=== PATIENT | female | born 1950 | race Caucasian/White ===

== ENCOUNTER → 2022-02-16 10:33 | Outpatient (REF) | payer MEDICARE, SELFPAY | LOC: ANHLAB 10:33 | PROVIDERS: Visit Provider Nurse Practitioner | DX: C44.319 Basal cell carcinoma of skin of other parts of face (principal) | CPT/HCPCS: 88305; 88342 ==

== ENCOUNTER → 2022-04-10 08:19 | Outpatient (REF) | payer MEDICARE, SELFPAY | LOC: ANHLAB 08:19 | PROVIDERS: Visit Provider Nurse Practitioner | DX: C44.319 Basal cell carcinoma of skin of other parts of face (principal) | CPT/HCPCS: 88305; 88331 ==

== ENCOUNTER 2023-03-06 09:00 | Outpatient (NON) | payer MEDICARE, SELFPAY | END 2023-03-06 09:01 | disposition home or self-care (01) | LOC: ANHLAB 03-07 12:13 | PROVIDERS: Visit Provider Nurse Practitioner | DX: L92.3 Foreign body granuloma of the skin and subcutaneous tissue (principal); Z18.9 Retained foreign body fragments, unspecified material | CPT/HCPCS: 88304 ==

== ENCOUNTER 2024-06-23 15:41 | Emergency (ER) | payer MEDICARE, SELFPAY ==
--- NOTE | ~2024-06-23 | US_ITS ---
EXAMINATION: US venous doppler LE RT DATE: 06/23/2024 19:30 INDICATION: RLE swelling and posterior knee pain . TECHNIQUE: Grayscale images without and with compression and Doppler images of the right lower extrem ity veins were obtained. COMPARISON: None FINDINGS: The right common femoral vein, profunda (deep) femoral vein, femoral vein, popliteal vein, peroneal v ein, posterior tibial veins, gastrocnemius vein, and greater saphenous vein are patent. Small Moseley's cyst. IMPRESSION: Patent right lower extremity veins. No evidence of deep venous thrombosis. Small Moseley's cyst. Reviewed, dictated and finalized at location K. IMPRESSION: Patent right lower extremity veins. No evidence of deep venous thrombosis. Smal l Moseley's cyst.
--- NOTE | ~2024-06-23 | XR_ITS ---
EXAM: XR knee RT 3V DATE: 06/23/2024 17:31 HISTORY: R knee pain x 7 months. no inj . COMPARISON: None available. FINDINGS: Decreased mineralization. No fracture or dislocation. No lytic or blastic lesion. Joint sp aces are maintained. Mild osteoarthritis. Moderate joint fluid. Minimal quadriceps enthesopathy. No e rosion or periosteal change. Soft tissues within normal limits. IMPRESSION: Osteopenia. No acute osseous finding in the right knee. Moderate right knee joint effusio n. Reviewed, dictated and finalized at location K. IMPRESSION: Osteopenia. No acute osseous finding in the right knee. Moderate ri ght knee joint effusion.
[2024-06-23 15:56] VITALS: BP 113/57; PULSE 65; RESP 20; TEMP 36.3; O2SAT 91
[2024-06-23 16:56] VITALS: BP 114/70; PULSE 67; RESP 15; O2SAT 91
[2024-06-23 16:58] VITALS: O2SAT 91
--- NOTE | 2024-06-23 17:52 | ED.LOWEXIN ---
HPI - Extremity Injury (Lower) General Chief Complaint: Extremity Injury, Lower Stated Complaint: R leg/knee Time Seen by Provider: 06/23/24 17:02 Source: patient Mode of arrival: ambulatory Limitations: no limitations History of Present Illness HPI Narrative: this is a 74-year-old female with chief complaint of increasing right knee pain for the past 7 months. States that over the last couple of days it has become more painful. She thinks that is a Moseley's cyst because she has had this in the past. States she has had workup with Ortho in the past and been explained that she has meniscal tear. She is unsure if she has history of osteoarthritis. States that she takes naproxen when I feel like it with some relief. Denies warmth, fevers, chills, nausea, vomiting, numbness, weakness. Denies history of blood clot or recent immobilization. Related Data Home Medications Medication Instructions Recorded Confirmed citalopram 20 mg tablet 20 mg PO DAILY 12/14/20 clonazepam 1 mg tablet 1 mg PO DAILY 12/14/20 esomeprazole magnesium 20 mg 20 mg PO DAILY 12/14/20 capsule,delayed release propranolol 60 mg capsule,24 60 mg PO DAILY 12/14/20 hr,extended release rosuvastatin 10 mg tablet 10 mg PO DAILY 12/14/20 albuterol 90 mcg-budesonide 80 2 inh inhalation ONCE 04/28/24 mcg/actuation HFA aerosol inhaler bisacodyl 5 mg tablet 5 mg PO QHS 04/28/24 fluticasone fur. 200 mcg-umeclid 1 inh inhalation DAILY 04/28/24 62.5 mcg-vilant 25 mcg inhalat.powder (Trelegy Ellipta) furosemide 20 mg tablet 20 mg PO QAM 04/28/24 omega 8-tey-ozi-fish oil 300 1 cap PO DAILY 04/28/24 mg-1,000 mg capsule (Fish Oil) primidone 250 mg tablet 250 mg PO QHS 04/28/24 Allergies Allergy/AdvReac Type Severity Reaction Status Date / Time ibuprofen Allergy Unknown Rash Verified 06/23/24 16:59 Review of Systems Review of Systems: All systems as dictated in HPI [facility] Past Medical History Medical History BCC (basal cell carcinoma of skin) COPD (chronic obstructive pulmonary disease) Functional constipation Gastro-esophageal reflux disease without esophagitis Generalized anxiety disorder GERD (gastroesophageal reflux disease) Heart palpitations High cholesterol Hypercholesterolemia Muscle weakness Nicotine dependence in remission Occasional tremors Persistent insomnia Synovial cyst of popliteal space Surgical History Surgical History History of basal cell carcinoma excision Nose History of D&C x2 History of hip surgery (~09/01/23) Lt Hip Fx - Titanium Ball Family History Family History Unknown Heart disease Parkinson disease Diabetes mellitus Other Family history of arthritis Family history of gout Social History Social History (Updated 06/04/24 @ 10:43 by Kendal Jiménez MA) Smoking status: Former smoker Smoking end date: 04/25/22 Alcohol intake: never Do You Feel Safe in your Home?: Yes Lack of Transportation: No Lack of Food: Never True Current Housing: I Have Housing Concerned About Future Housing: No Difficulty Paying Gas/Electric Bills: No Difficulty Paying for Meds: No Currently Unemployed: No Education: High School Diploma/GED Difficulty w/ Childcare or Family Care: No Exam Narrative: GENERAL: Well-appearing, well-nourished, and in no acute distress. HEAD: Normocephalic, atraumatic. EYES: PERRLA and EOMI. ENT: Nares clear, no rhinorrhea or epistaxis. Mucous membranes moist. Oropharynx without tonsillar hypertrophy exudate or other lesions. NECK: Supple. No adenopathy or masses. CHEST: No respiratory distress. Clear to auscultation. No wheezes rales or rhonchi HEART: Regular rate and rhythm. No murmur heard. Normal peripheral pulses. ABDOMEN: Soft, nontender, nondistended, normal a
[2024-06-23 20:00] VITALS: BP 128/71; PULSE 58; RESP 16; TEMP 36.8; O2SAT 92
== END 2024-06-23 20:03 | disposition home or self-care (01) ==
PROVIDERS: Emergency Provider Physician Assistant; PCP Family Medicine
DX: M25.561 Pain in right knee (principal); J44.9 Chronic obstructive pulmonary disease, unspecified; K21.9 Gastro-esophageal reflux disease without esophagitis; F41.9 Anxiety disorder, unspecified; E78.5 Hyperlipidemia, unspecified; Z85.828 Personal history of other malignant neoplasm of skin; M79.89 Other specified soft tissue disorders
CPT/HCPCS: 73562; 93971; 99284

== ENCOUNTER 2024-07-02 08:03 | Outpatient (CLI) | payer MEDICARE, SELFPAY ==
--- NOTE | 2024-07-02 08:20 | ECG_ITS ---
Test Date: 2024-07-02 08:35:21 Measurements Intervals [place] Rate: 55 P: 39 MN: 154 QRS: 18 QRSD: 102 T: 29 QT: 443 QTc: 425 Interpretive Statements SINUS BRADYCARDIA INCOMPLETE RIGHT BUNDLE BRANCH BLOCK NONSPECIFIC T-WAVE ABNORMALITY No previous ECG available for comparison Electronically Signed On 07-02-2024 09:30:49 CDT by Trace Fontanez M.D.
[2024-07-02 08:58] LABS: Anion Gap 4 mmol/L (4-12); Blood Urea Nitrogen 10 mg/dL (7-17); Calcium 9.2 mg/dL (8.4-10.2); Carbon Dioxide 37 mmol/L (22-30); Chloride 95 mmol/L (98-107); Estimated Glomerular Filt Rate > 60; Glucose 104 mg/dL (65-110); Potassium 4.4 mmol/L (3.4-5.0); Sodium 136 mmol/L (137-145)
== END 2024-07-02 08:04 | disposition home or self-care (01) ==
LOC: ANHSURGERY 08:08
PROVIDERS: Anesthesiology; PCP Family Medicine; Visit Provider Orthopaedic Surgery
DX: I10 Essential (primary) hypertension (principal); Z01.818 Encounter for other preprocedural examination; I45.10 Unspecified right bundle-branch block
CPT/HCPCS: 36415; 80048; 93005

== ENCOUNTER 2024-07-03 01:39 | Day surgery (SDC) | payer MEDICARE, SELFPAY ==
--- NOTE | 2024-07-01 14:08 | PC.NURSE ---
Report to the Outpatient Waiting Room, entrance under the green pavilion located off [facility], at time __11:30 AM on date _07/03/24 . Planned Procedure Time: __1:30 PM . Time changes happen often and if your time is changed the preop area will call you the afternoon before. - You and your visitor will be asked to self-screen and do not enter if you have any COVID symptoms. - A mask is optional within the hospital at this time. Patients may have clear liquids (water, carbonated beverages, clear teas, apple juice) until 3 hours prior to surgery ( 10:30AM)with a maximum of 20 ounces. - No food from midnight until time of surgery - Infants may have breast milk until 4 hours before surgery, infant formula 6 hours prior to surgery. - Children will be allowed to drink immediately following surgery. If applicable, please bring a bottle or sippy cup to assist with drinking. Juice, water, soda, and popsicles are readily available. For infants on formula, please bring formula the day of surgery. Pacifiers are allowed. Take the following medications with a SIP of water the morning of surgery: __TRELEGY INHALER,CITALOPRAM,PROPRANOLOL DO NOT STOP ANY OF YOUR OTHER PRESCRIPTION MEDICATIONS PRIOR TO SURGERY ?EXCEPT THE FOLLOWING Medications to discontinue per physician _HOLD NAPROXEN 7 DAYS PRE OP PER DR HESTER ..HOLD ALL VITAMINS AND SUPPLEMENTS 3 DAYS PRE OP .LAST DOSE 07/01/24 Please no make-up, nail wolof, hairspray, perfume, deodorant, or body powder the day of surgery. No jewelry (including any body piercings) or valuables the day of surgery, leave them at home. Please take a shower or bath the night before, or the morning of, surgery with an antibacterial soap. Wear comfortable, loose fitting clothing. Children are encouraged to wear pajamas. - Jewelry must be removed prior to entering the operating room. Rings and piercings that are not removed may be cut off. - The hospital will not accept responsibility for valuables. - Please leave all valuables, including medications, at home the day of surgery. If you are going home after surgery, a licensed bulk truck driver must drive you home. - NO public transportation without another adult if you receive anesthesia. - We recommend that an adult stay with you for 24 hours following discharge. - We also recommend that you do not drive, make important decision, drink alcoholic beverages, or take any drugs that were not prescribed by your health care provider for at least 24 hours after your discharge time. Follow any additional instructions given to you from your surgeon. If you or anyone in your household have experienced Covid symptoms in the past week, please notify your surgeon or the nurse liaison at the phone number below for possible testing. Telephone instructions given to __PATIENT AND SPOUSE GARY and asked if any additional questions and then verbalized understanding. Patient advised to call surgeon office or pre surgery nurse liaison [phone] if any additional questions.
[2024-07-01 14:17] VITALS: BMI 29.1
[2024-07-03] VITALS (7 sets, daily range): BP systolic 105–135; BP diastolic 62–80; PULSE 54–80; RESP 14–18; TEMP 36.3–36.4; O2SAT 95–100
[2024-07-03] MEDS: ACETAMINOPHEN 500 MG TABLET 1000 MG PO (12:21)
--- NOTE | 2024-07-03 12:31 | WPDHPUPDATE1 ---
History and Physical Update Update Date/Time: 07/03/24 12:31 History and Physical has been reviewed, including an updated exam of the patient. There are NO changes in the patient's condition. Risks, benefits, and alternatives have been discussed and questions answered. Patient agrees to proceed with procedure.
[2024-07-03] MEDS: LACTATED RINGERS 1,000 ML 30 ML IV CONT (12:45)
--- NOTE | 2024-07-03 12:59 | WPDANESEPPF ---
Anes - Initial Pre Proc Eval Procedure: Operation Date: 07/03/24 13:30 Proposed Procedures p Right Knee Arthroscopy, Partial Medial Meniscectomy - Ford Cooper MD Date/Time: 07/03/24 12:59 Surgeon: Ford Cooper MD Pre Op Diagnosis: right knee meniscus tear Patient Data Age: 74 Gender: F Height: 1.65 m Weight: 79.4 kg Last Vital Signs Temp 97.5 F L 07/03/24 12:38 Pulse 54 L 07/03/24 12:38 Resp 16 07/03/24 12:38 BP 111/67 07/03/24 12:38 Pulse Ox 95 07/03/24 12:38 O2 Del Method Nasal Cannula 07/03/24 12:38 O2 Flow Rate 3 07/03/24 12:38 Allergies Allergy/AdvReac Type Severity Reaction Status Date / Time ibuprofen Allergy Unknown Rash Verified 07/03/24 12:16 Home Medications Medication Instructions Recorded Confirmed Type citalopram 20 mg tablet 20 mg PO DAILY 12/14/20 07/01/24 History clonazepam 1 mg tablet 1 mg PO DAILY RLS 12/14/20 07/01/24 History esomeprazole magnesium 20 mg 20 mg PO DAILY 12/14/20 07/01/24 History capsule,delayed release propranolol 60 mg capsule,24 60 mg PO DAILY 12/14/20 07/01/24 History hr,extended release rosuvastatin 10 mg tablet 10 mg PO DAILY 12/14/20 07/01/24 History albuterol 90 mcg-budesonide 80 2 inh inhalation PRN PRN Shortness 04/28/24 07/01/24 History mcg/actuation HFA aerosol inhaler Of Breath bisacodyl 5 mg tablet 5 mg PO QHS 04/28/24 07/01/24 History fluticasone fur. 200 mcg-umeclid 1 inh inhalation DAILY 04/28/24 07/01/24 History 62.5 mcg-vilant 25 mcg inhalat.powder (Trelegy Ellipta) furosemide 20 mg tablet 20 mg PO QAM 04/28/24 07/01/24 History omega 4-fxs-xfz-fish oil 300 1 cap PO DAILY 04/28/24 07/01/24 History mg-1,000 mg capsule (Fish Oil) primidone 250 mg tablet 250 mg PO QHS 04/28/24 07/01/24 History naproxen 500 mg tablet 500 mg PO BID PRN pain #30 tabs 06/23/24 07/01/24 Rx calcium carbonate 333 mg-magnesium 1 tablet PO DAILY 07/01/24 07/01/24 History oxide 133 mg-zinc gluc 5 mg tablet multivitamin (Daily Multi-Vitamin 1 tablet PO DAILY 07/01/24 07/01/24 History tablet) pramipexole 1.5 mg tablet 1.5 mg PO BID 07/01/24 07/01/24 History Patient hx anesthesia problems: none Family hx anesthesia problems: none Results Review: All pre-operative results and documents have been reviewed as part of the pre-operative evaluation. [facility] Past Medical History Medical History BCC (basal cell carcinoma of skin) COPD (chronic obstructive pulmonary disease) Functional constipation Gastro-esophageal reflux disease without esophagitis Generalized anxiety disorder GERD (gastroesophageal reflux disease) Heart palpitations High cholesterol Hypercholesterolemia Muscle weakness Nicotine dependence in remission Occasional tremors Persistent insomnia Synovial cyst of popliteal space Surgical History Surgical History History of basal cell carcinoma excision Nose History of D&C x2 History of hip surgery (~09/01/23) Lt Hip Fx - Titanium Ball Family History Family History Unknown Heart disease Parkinson disease Diabetes mellitus Other Family history of arthritis Family history of gout Social History Social History Smoking packs per day: 1 Smoking cigarettes per day: 20.0 Years smoked: 50 Smoking pack-years: 50.00 Smoking status: Former smoker Tobacco type: cigarettes Smoking end date: 11/19/21 Alcohol intake: never Do You Feel Safe in your Home?: Yes Lack of Transportation: No Lack of Food: Never True Current Housing: I Have Housing Concerned About Future Housing: No Difficulty Paying Gas/Electric Bills: No Difficulty Paying for Meds: No Currently Unemployed: No Education: High School Diploma/GED Difficulty
[2024-07-03] MEDS: ceFAZolin 2 GM/D5W 50 ML 2 GM/50 ML BAG IVPB (13:06)
[2024-07-03] MEDS: BUPIVACAINE/EPINEPHRINE 0.5% 10 ML VIAL 30 ML INFILTRATE (13:33)
--- NOTE | 2024-07-03 14:10 | P.OP_ITS ---
Procedure Note - Detailed Date of Procedure 07/03/24 Pre-op Diagnosis Right knee medial meniscus tear Post-op Diagnosis Other (1. Right knee medial and lateral meniscus tears 2. Degenerative arthritis right knee) Procedure Performed Arthroscopic partial medial and lateral meniscectomies, right knee. Surgeon Ford Cooper MD Anesthesia General Findings Significant djd lateral compartment. Minimal medial tear treated with partial meniscectomy. Lateral side degenerative tear and grade 4 chondromalacia on the femur. grade 2/3 on the tibia. Medial femur chondromalacia grade 0, medial tibia grade 0. Lateral femur chondromalacia grade 4, lateral tibia grade 3. Patellar grade 2, trochlea grade 0. Description of Procedure The patient was identified and the surgical site confirmed and signed in the preoperative holding area. Antibiotics were started per protocol, and the patient was brought to the operative room and transferred to the OR table. A general anesthetic was administered. Supine position with the operative lower extremity position in the leg durham after placement of a well padded tourniquet. The leg support was lowered and the contralateral limb was supported with a soft bolster. The knee was prepped and draped in the usual sterile fas hion. A time-out was performed. The portal sites were marked and infiltrated with 0.5% Marcaine 20 mL. The limb was exsanguinated and the tourniquet inflated to 300 mL Hg. Standard inferolateral and inferomedial portals were established. Inflow was obtained with the saline pump. The camera was introduced. Diagnostic inspection of the joint was accomplished. The menisci were debrided with the arthroscopic shaver and punches until stable. Gentle chondroplasty of the lateral femur and tiba. The arthroscopic instruments were removed. The tourniquet released and wounds closed with subcutaneous 4-0 Monocryl absorbable suture. Steri strips and a sterile dressing were applied. A light elastic wrap was placed. The patient was extubated and brought to the recovery room in stable condition. Estimated Blood Loss 5 Tourniquet Time Total Tourniquet Time: 24 Drains No Complications No immediate complications Condition Stable Disposition PACU [facility] Billing Surgery - Charge Forward: Surgery Billing
== END 2024-07-03 16:00 | disposition home or self-care (01) ==
PROVIDERS: PCP Family Medicine; Visit Provider Orthopaedic Surgery
PROC: (CPT 29870; principal; 2024-07-03 13:30)
DX: S83.241A Other tear of medial meniscus, current injury, right knee, initial encounter (principal); S83.281A Other tear of lateral meniscus, current injury, right knee, initial encounter; M94.261 Chondromalacia, right knee; J44.9 Chronic obstructive pulmonary disease, unspecified; K21.9 Gastro-esophageal reflux disease without esophagitis; E78.00 Pure hypercholesterolemia, unspecified; F41.9 Anxiety disorder, unspecified; R00.2 Palpitations; R25.1 Tremor, unspecified; G47.00 Insomnia, unspecified; Z87.891 Personal history of nicotine dependence; Z79.51 Long term (current) use of inhaled steroids; Z79.1 Long term (current) use of non-steroidal anti-inflammatories (NSAID); Z98.890 Other specified postprocedural states; Z85.828 Personal history of other malignant neoplasm of skin; Z82.49 Family history of ischemic heart disease and other diseases of the circulatory system; X58.XXXA Exposure to other specified factors, initial encounter
CPT/HCPCS: 29880; 36415; 80048; 93005; A9270; J0690; J1100; J2405; J2704; J3010; J7120

== ENCOUNTER 2024-11-16 13:21 | Observation (INO) | payer MEDICARE, SELFPAY ==
--- NOTE | ~2024-11-16 | XR_ITS ---
EXAMINATION: XR lumbar spine 2-3V DATE: 11/17/2024 09:54 INDICATION: Back pain. Fall. TECHNIQUE: 3 views of lumbar spine were obtained. COMPARISON: None. FINDINGS: There is 8 degrees dextrocurvature of thoracolumbar spine. Vertebral body heights are trixie l. There is mildly decreased disc height at L1-L2, L2-L3, and L3-L4. There is multilevel moderate to severe facet joint osteoarthritis. Partially visualized is a bipolar hip hemiarthroplasty. IMPRESSION: 1. Mild lumbar spondylosis. Reviewed, dictated and finalized at location A. UTATIONAL GENETICIST IMPRESSION: 1. Mild lumbar spondylosis.
--- NOTE | ~2024-11-16 | XR_ITS ---
EXAMINATION: XR shoulder RT min 2V DATE: 11/17/2024 09:54 INDICATION: Right shoulder pain. Fall. TECHNIQUE: 4 views of right shoulder were obtained. COMPARISON: None. FINDINGS: Alignment is normal. No fracture. There is mild osteoarthritis of glenohumeral joint and ac romioclavicular joint. A calcified right lung nodule and calcified right hilar lymph nodes are consis tent with old granulomatous disease. IMPRESSION: 1. Polyarticular osteoarthritis. Reviewed, dictated and finalized at location A. MAN
--- NOTE | ~2024-11-16 | XR_ITS ---
HISTORY: pain CHRONIC, WORSE W/NEW FALL THIS AM. COMPARISON: 06/23/2024 TECHNIQUE: 4 views of the right knee were performed FINDINGS: Diffuse bony demineralization is present. No acute or subacute fracture. Medial and lateral tibiofemoral joint space narrowing is identified with lateral distal femoral scler osis. Large suprapatellar joint effusion is identified. The infrapatellar joint space is clear. Ossification of the insertion of the Achilles tendon. Periarticular osteopenia. IMPRESSION: Severe degenerative disease within large suprapatellar joint effusion. No acute fracture. Reviewed, dictated and finalized at location A. LE STRAP DRUM OPERATOR
--- NOTE | ~2024-11-16 | XR_ITS ---
EXAMINATION: XR thoracic spine 2V DATE: 11/17/2024 09:54 INDICATION: Back pain. Fall. TECHNIQUE: 2 views of thoracic spine were obtained. COMPARISON: None. FINDINGS: There is 9 degrees levocurvature of thoracic spine. Vertebral body heights are normal. Ther e is mildly decreased disc height at multiple levels in thoracic spine. There are endplate osteophyte s at most levels. There is multilevel facet joint osteoarthritis, severe at a few levels. Calcified r ight lung nodules and calcified right hilar lymph nodes are consistent with old granulomatous disease . IMPRESSION: 1. Mild thoracic spondylosis. Reviewed, dictated and finalized at location A. F ACCOUNTING OFFICER
[2024-11-16 13:22] VITALS: BP 109/57; PULSE 72; RESP 16; TEMP 36.4; O2SAT 92
--- NOTE | 2024-11-16 14:46 | ED.LOWEXIN ---
HPI - Extremity Injury (Lower) General Chief Complaint: Extremity Injury, Lower Stated Complaint: knee pain Time Seen by Provider: 11/16/24 14:36 Source: patient Mode of arrival: ambulatory Limitations: no limitations History of Present Illness HPI Narrative: This is a 74-year-old female with COPD, [id number]-es-sjsa osteoarthritis of the right knee who presents to the ED for chief complaint of increasing right knee pain. Patient states that she had a fall this morning at 4:00 a.m.. She was referred to [facility] by Dr. Cooper for joint replacement surgery due to her underlying health conditions such as COPD. She does wear oxygen 3 L nasal cannula. Patient states that she does not have an appointment with the surgeon at [facility] until December 30 and she cannot wait that long. Denies numbness, weakness or any further injury. Denies LOC, recent illness, fevers, chills. Related Data Home Medications ?Medication ?Instructions ?Recorded ?Confirmed ?Last Taken ?Type citalopram 20 mg tablet 20 mg PO DAILY 12/14/20 09/03/24 Unknown History clonazepam 1 mg tablet 1 mg PO DAILY RLS 12/14/20 09/03/24 Unknown History esomeprazole magnesium 20 mg 20 mg PO DAILY 12/14/20 09/03/24 Unknown History capsule,delayed release propranolol 60 mg capsule,24 60 mg PO DAILY 12/14/20 09/03/24 Unknown History hr,extended release rosuvastatin 10 mg tablet 10 mg PO DAILY 12/14/20 09/03/24 Unknown History albuterol 90 mcg-budesonide 80 2 inh inhalation PRN PRN Shortness 04/28/24 09/03/24 Unknown History mcg/actuation HFA aerosol inhaler Of Breath fluticasone fur. 200 mcg-umeclid 1 inh inhalation DAILY 04/28/24 09/03/24 Unknown History 62.5 mcg-vilant 25 mcg inhalat.powder (Trelegy Ellipta) furosemide 20 mg tablet 20 mg PO QAM 04/28/24 09/03/24 Unknown History omega 2-hky-fhs-fish oil 300 1 cap PO DAILY 04/28/24 09/03/24 Unknown History mg-1,000 mg capsule (Fish Oil) calcium 333 mg 1 tablet PO DAILY 07/01/24 09/03/24 Unknown History (carbonate)-magnesium 133 mg (oxide)-zinc 5 mg tablet multivitamin (Daily Multi-Vitamin 1 tablet PO DAILY 07/01/24 09/03/24 Unknown History tablet) pramipexole 1.5 mg tablet 1.5 mg PO BID 07/01/24 09/03/24 Unknown History carbidopa 25 mg-levodopa 100 mg 1 tablet PO TID 09/03/24 09/03/24 Unknown History tablet primidone 250 mg tablet 125 mg PO QHS 09/03/24 09/03/24 Unknown History Allergies Allergy/AdvReac Type Severity Reaction Status Date / Time ibuprofen Allergy Unknown Rash Verified 09/03/24 14:37 Review of Systems Review of Systems: All systems as dictated in [facility] Past Medical History Medical History BCC (basal cell carcinoma of skin) COPD (chronic obstructive pulmonary disease) Functional constipation Gastro-esophageal reflux disease without esophagitis Generalized anxiety disorder GERD (gastroesophageal reflux disease) Heart palpitations High cholesterol Hypercholesterolemia Muscle weakness Nicotine dependence in remission Occasional tremors Persistent insomnia Synovial cyst of popliteal space Surgical History Surgical History History of basal cell carcinoma excision Nose History of D&C x2 History of hip surgery (~09/01/23) Lt Hip Fx - Titanium Ball Status post meniscectomy (~07/03/24) Arthroscopic partial medial and lateral meniscectomy Family History Family History Unknown Heart disease Parkinson disease Diabetes mellitus Other Family history of arthritis Family history of gout Social History Social History Smoking packs per day: 0.1 Smoking cigarettes per day: 2.0 Years smoked: 50 Smoking pack-years: 5.00 Smoking status: Former smoker Tobacco type: cigarettes Second hand tobacco smoke exposure: No Smoking end date: 11/19/21 Alcohol intake: never Substance use: never Do You Feel Safe in your Home?: Yes Lack of Transportation: No Lack of Food: Never True Current Housing: I Have Housing Concerned About Future Housing: No Difficulty Paying Gas/Electric Bills: No Difficulty Paying for Meds: No Currently Unemployed: No Education: High School Diploma/GED Difficulty w/ Childcare or Family Care: No Living arrangements: with family Spiritual care concerns: No Exam Narrative: GENERAL: Well-appearing, well-nourished, and in no acute distress. HEAD: Normocephalic, atraumatic. EYES: PERRLA and EOMI. ENT: Nares clear, no rhinorrhea or epistaxis. Mucous membranes moist. Oropharynx without tonsillar hypertrophy exudate or other lesions. NECK: Supple. No adenopathy or masses. CHEST: No respiratory distress. Clear to auscultation. No wheezes rales or rhonchi HEART: Regular rate and rhythm. No murmur heard. Normal peripheral pulses. ABDOMEN: Soft, nontender, nondistended, normal active bowel sounds. MSK: RLE: Right knee joint effusion present. Medial and lateral joint line tenderness present. No crepitus. Neurovascular intact distally. LLE: Benign SKIN: Warm, dry, no rash. NEURO: Alert and oriented x4. No focal deficits. PSYCH: Normal mood and affect. Course Vital Signs Vital signs: Vital Signs Temperature 97.6 F 11/16/24 13:22 Pulse Rate 72 11/16/24 13:22 Respiratory Rate 16 11/16/24 13:22 Blood Pressure 109/57 L 11/16/24 13:22 Pulse Oximetry 92 11/16/24 13:22 Oxygen Delivery Nasal Cannula 11/16/24 13:22 Oxygen Flow Rate 3 11/16/24 13:22 Temperature 97.7 F 11/16/24 18:41 Pulse Rate 60 11/16/24 18:41 Respiratory Rate 18 11/16/24 18:41 Blood Pressure 113/77 11/16/24 18:41 Pulse Oximetry 93 11/16/24 18:41 Oxygen Delivery Nasal Cannula 11/16/24 13:22 Oxygen Flow Rate 3 11/16/24 13:22 MDM - Extremity Injury (Lower) MDM Narrative Medical decision making narrative: This is a 74-year-old female who presents to the ED for right knee pain acute on chronic. She had a fall this morning. Vitals are normal. She wears oxygen 3 L chronically with COPD. Exam is remarkable for right knee effusion. This is most likely due to underlying arthritis with trauma, low suspicion for infectious joint. Patient's family does not think that they can take care of her at home due to her debilitating arthritis. She is having trouble bearing weight and and cannot walk with this injury. She was given dose of pain medication here in the ER. Discussed with hospitalist admission for PT, OT and rehab center placement. Spoke with hospitalist Stella GIRALDO who accepts admission under Dr. Sarmiento. Patient will be admitted in stable condition. Lab Data 11/16/24 16:11 11/16/24 16:11 Labs: Lab Results 11/16/24 Range/Units 16:11 WBC 5.7 (4.5-10.0) K/mm3 RBC 3.74 L (4.2-5.4) M/mm3 Hgb 11.8 L (12.0-15.0) g/dL Hct 36.3 L (37.0-47.0) % MCV 97.1 (80-100) fl MCH 31.6 (26-34) pg MCHC 32.5 (32-36) g/dl RDW 15.7 H (11.5-14.5) % Plt Count 388 H (150-375) k/mm3 MPV 8.0 (7.4-10.4) fl Immature Gran % (Auto) 0.3 (0-0.5) % Neut % (Auto) 48.7 (45.5-73.1) % Lymph % (Auto) 46.3 H (18.3-44.2) % [place] % (Auto) 2.4 L (2.6-8.5) % Eos % (Auto) 1.4 (0-4.4) % Baso % (Auto) 0.9 (0.2-1.2) % Lymph # (Auto) 2.65 (0.9-3.2) K/mm3 [place] # (Auto) 0.1 (0.1-0.6) K/mm3 Eos # (Auto) 0.1 (0-0.3) K/mm3 Baso # (Auto) 0.1 (0.0-0.1) K/mm3 Abs Immat Gran (auto) 0.02 (0.00-0.031) K/mm3 Absolute Neuts (auto) 2.8 (1.3-6.7) K/mm3 Absolute Nucleated RBC 0.000 (0.0-0.012) K/mm3 Nucleated RBC % 0.0 (0.0-0.2) % Sodium 134 L (137-145) mmol/L Potassium 4.4 (3.4-5.0) mmol/L Chloride 101 (98-107) mmol/L Carbon Dioxide 33 H (22-30) mmol/L Anion Gap 0 L (4-12) mmol/L BUN 14 (7-17) mg/dL Creatinine 0.70 (0.7-1.0) mg/dL Estim Creat Clear Calc 64 ml/min Estimated GFR > 60 (59 - ) Glucose 106 (65-110) mg/dL Calcium 9.4 (8.4-10.2) mg/dL Total Bilirubin 0.4 (0.2-1.3) mg/dL AST 23 (14-36) U/L ALT 10 (6-35) U/L Alkaline Phosphatase 83 (38-126) U/L Total Protein 7.0 (6.3-8.2) g/dL Albumin 3.8 (3.5-5.1) g/dL Discharge Plan Discharge Clinical Impression: Osteoarthritis of right knee Patient Disposition: Home, Self-Care Condition: Stable Time of Disposition: 15:07
[2024-11-16] MEDS: HYDROcodone/acetaminophen (*CRX) 5-325 MG TABLET 1 TAB PO ×2 (14:50→19:38)
[2024-11-16 14:52] VITALS: BP 105/67; PULSE 66; RESP 18; TEMP 36.6; O2SAT 96
--- NOTE | 2024-11-16 15:23 | PC.NURSE ---
In room to review DC plan and want to speak with care coordination because he reports he is not able to lift and help pt with ADLs and want to talk with someone about short term NH placement
--- NOTE | 2024-11-16 15:42 | PCCCNOTE ---
Addendum entered by Mac Hanna RN 11/16/24 18:12: Spoke with provider, he is aware an auth would need to be obtained for acute rehab for placement. Family stated that may be an option or placement. Stated they have the financial means to pay if needed for skilled care. Pt is concerned d/t not having upper body strength to use the walker at this time-mehran. Original Note: [id number]-Called to the pt's room. Pt and her stated she is unable to take care of herself at home anymore. Stated they are waiting to get her into ortho at [facility] December 30 however she cannot bear weight on that knee or have the upper body strength to use her walker. Stated they would like to go back to the bounce back unit in [place] however it was after a procedure. ED provider stated there was no medical reason to admit at this time, declined the option to stay for possible auth needed for [employer] M[employer]/placement. Stated they would go through their PCP for rehab on 11/17/24. Stated they have their nephew at their home this evening and feel safe [facility]mehran.
--- NOTE | 2024-11-16 15:54 | PC.NURSE ---
attempted to ambulate pt and she was unable to bear wt, ERP notified
[2024-11-16 16:17] LABS: Basophils Absolute Auto 0.1 K/mm3 (0.0-0.1); Basophils Percent Auto 0.9 % (0.2-1.2); Eosinophils Absolute Auto 0.1 K/mm3 (0-0.3); Eosinophils Percent Auto 1.4 % (0-4.4); Hematocrit 36.3 % (37.0-47.0); Hemoglobin 11.8 g/dL (12.0-15.0); Immature Granulocyte Absolute 0.02 K/mm3 (0.00-0.031); Immature Granulocyte Percent A 0.3 % (0-0.5); Lymphocytes Absolute Auto 2.65 K/mm3 (0.9-3.2); Lymphocytes Percent Auto 46.3 % (18.3-44.2); Mean Corpuscular HGB Conc 32.5 g/dl (32-36); Mean Corpuscular Hemoglobin 31.6 pg (26-34); Mean Corpuscular Volume 97.1 fl (80-100); Monocytes Absolute Auto 0.1 K/mm3 (0.1-0.6); Monocytes Percent Auto 2.4 % (2.6-8.5); Neutrophils Absolute Auto 2.8 K/mm3 (1.3-6.7); Neutrophils Percent Auto 48.7 % (45.5-73.1); Platelet Count Result 388 k/mm3 (150-375); Red Blood Count 3.74 M/mm3 (4.2-5.4); Red Cell Distribution Width 15.7 % (11.5-14.5); White Blood Count 5.7 K/mm3 (4.5-10.0)
[2024-11-16 16:18] VITALS: BP 104/56; PULSE 78; RESP 18; TEMP 36.6; O2SAT 96
[2024-11-16 16:28] LABS: Alanine Aminotransferase 10 U/L (6-35); Albumin Level 3.8 g/dL (3.5-5.1); Alkaline Phosphatase 83 U/L (38-126); Anion Gap 0 mmol/L (4-12); Aspartate Amino Transferase 23 U/L (14-36); Bilirubin,Total 0.4 mg/dL (0.2-1.3); Blood Urea Nitrogen 14 mg/dL (7-17); Calcium 9.4 mg/dL (8.4-10.2); Carbon Dioxide 33 mmol/L (22-30); Chloride 101 mmol/L (98-107); Estimated CRCL calculation 64 ml/min; Estimated Glomerular Filt Rate > 60; Glucose 106 mg/dL (65-110); Potassium 4.4 mmol/L (3.4-5.0); Sodium 134 mmol/L (137-145)
[2024-11-16 18:41] VITALS: BP 113/77; PULSE 60; RESP 18; TEMP 36.5; O2SAT 93
--- NOTE | 2024-11-16 19:40 | PM.IMHP ---
H&P: HPI History of Present Illness Date/Time: 11/16/24 19:40 Chief Complaint: Right knee pain. Narrative: This is a 74-year-old with Parkinson's disease, restless leg syndrome, hypertension, hyperlipidemia, chronic obstructive pulmonary disease, gastroesophageal reflux disease, anxiety, and osteoarthritis who presented to the emergency department for evaluation of right knee pain. The patient provides the following history. She has severe degenerative arthritis in the right knee for which she has seen Dr. Cooper in the past. He referred her to [facility] though she does not have an appointment until the 20 of December. She has been managing at home however she unfortunately sustained a fall yesterday, apparently missing the couch. She landed mostly on her buttocks but thinks that she may have twisted the right knee and likely braced herself in the fall because she is complaining of pain in her right knee and right shoulder. She has also had some discomfort in her lower back. There was no head trauma or loss of consciousness. She does not feel safe ambulating or going home at this time. Review of Systems Review of Systems: 12 systems were reviewed and are negative except for as per HPI. [facility] Past Medical History Medical History (Updated 11/17/24 @ 04:11 by Marianela Bertrand PA-C) Generalized anxiety disorder Gastroesophageal reflux disease Chronic obstructive pulmonary disease Basal cell carcinoma of skin Persistent insomnia Nicotine dependence in remission Hypercholesterolemia Functional constipation Surgical History Surgical History (Updated 11/16/24 @ 21:07 by Marianela Bertrand PA-C) History of hysterectomy (2020) History of cataract extraction History of meniscectomy of right knee (06/2024) arthroscopic partial medial and lateral meniscectomy History of open reduction and internal fixation (ORIF) procedure (08/2023) repair left hip fracture History of D&C x2 History of basal cell carcinoma excision nose Family History Family History Unknown Heart disease Parkinson disease Diabetes mellitus Other Family history of arthritis Family history of gout Social History Social History (Updated 11/16/24 @ 21:07 by Marianela Bertrand PA-C) Social History: Surrogate medical decision maker: Wilder Parker, spouse. Code status: Full code. Smoking packs per day: 0.1 Smoking cigarettes per day: 2.0 Years smoked: 50 Smoking pack-years: 5.00 Smoking status: Former smoker Tobacco type: cigarettes Second hand tobacco smoke exposure: No Smoking end date: 11/19/21 Alcohol intake: never Substance use: never Do You Feel Safe in your Home?: Yes Lack of Transportation: No Lack of Food: Never True Current Housing: I Have Housing Concerned About Future Housing: No Difficulty Paying Gas/Electric Bills: No Difficulty Paying for Meds: No Currently Unemployed: No Education: High School Diploma/GED Difficulty w/ Childcare or Family Care: No Spiritual care concerns: No Meds Home Medications and Allergies Home Medications ?Medication ?Instructions ?Recorded ?Confirmed ?Type citalopram 20 mg tablet 20 mg PO DAILY 12/14/20 11/16/24 History clonazepam 1 mg tablet 1 mg PO HS RLS 12/14/20 11/16/24 History esomeprazole magnesium 20 mg 20 mg PO DAILY 12/14/20 11/16/24 History capsule,delayed release propranolol 60 mg capsule,24 60 mg PO DAILY 12/14/20 11/16/24 History hr,extended release rosuvastatin 10 mg tablet 10 mg PO DAILY 12/14/20 11/16/24 History fluticasone fur. 200 mcg-umeclid 1 inh inhalation .evening 04/28/24 11/16/24 History 62.5 mcg-vilant 25 mcg inhalat.powder (Trelegy Ellipta) omega 9-fgo-ntu-fish oil 300 1 cap PO BID 04/28/24 11/16/24 History mg-1,000 mg capsule (Fish Oil) calcium 333 mg 1 tablet PO DAILY 07/01/24 11/16/24 History (carbonate)-magnesium 133 mg (oxide)-zinc 5 mg tablet multivitamin (Daily Multi-Vitamin 1 tablet PO DAILY 07/01/24 11/16/24 History tablet) pramipexole 1.5 mg tablet 1.5 mg PO BID 07/01/24 11/16/24 History carbidopa 25 mg-levodopa 100 mg 1 tablet PO TID 09/03/24 11/16/24 History tablet primidone 250 mg tablet 125 mg PO QHS 09/03/24 11/16/24 History ipratropium 0.5 mg-albuterol 3 mg 3 ml inhalation DAILY PRN 11/16/24 11/16/24 History (2.5 mg base)/3 mL nebulization shortness of breath or wheezing soln Allergies Allergy/AdvReac Type Severity Reaction Status Date / Time ibuprofen Allergy Unknown Rash Verified 09/03/24 14:37 Vital Signs Vital Signs - 24 hr 11/16/24 13:22 11/16/24 14:52 11/16/24 16:18 Temperature 97.6 F 97.8 F 97.8 F Pulse Rate 72 66 78 Respiratory Rate 16 18 18 Blood Pressure 109/57 L 105/67 104/56 L Pulse Oximetry 92 96 96 Oxygen Delivery Nasal Cannula Oxygen Flow Rate 3 11/16/24 18:41 Temperature 97.7 F Pulse Rate 60 Respiratory Rate 18 Blood Pressure 113/77 Pulse Oximetry 93 Oxygen Delivery Oxygen Flow Rate Exam Narrative: General: Chronically ill-appearing female in the semi-García position in bed in no acute distress. Weight: 77 kg. BMI: 28.2. HEENT: PERRL, EOMI. Sclera anicteric. Oral mucosa moist. Oropharynx clear. Neck: Supple. Respiratory: Lungs are clear to auscultation bilaterally. Cardiovascular: Regular rate and rhythm with S1-S2. Gastrointestinal: Abdomen is soft, nontender, and nondistended with positive bowel sounds. Skin: Warm and dry. No rash or lesions on limited exam. Extremities: No cyanosis, clubbing, or edema. Radial and pedal pulses intact. Musculoskeletal: Large right knee effusion is evident. The knee is not red or warm. Range of motion is limited by swelling and pain. She also complains of pain with adduction and flexion of the right shoulder. Neurological: Alert. Cranial nerves 2-12 are grossly intact. No gross focal deficits to casual conversation. Psychiatric: Pleasant and cooperative with normal mood and affect. Judgment and insight intact. H&P: Results Labs Labs: Short CBC 11/16/24 Range/Units 16:11 WBC 5.7 (4.5-10.0) K/mm3 Hgb 11.8 L (12.0-15.0) g/dL Hct 36.3 L (37.0-47.0) % Plt Count 388 H (150-375) k/mm3 BMP 11/16/24 16:11 Sodium 134 L Potassium 4.4 Chloride 101 Carbon Dioxide 33 H BUN 14 Creatinine 0.70 Glucose 106 Calcium 9.4 Liver Function 11/16/24 Range/Units 16:11 Total Bilirubin 0.4 (0.2-1.3) mg/dL AST 23 (14-36) U/L ALT 10 (6-35) U/L Alkaline Phosphatase 83 (38-126) U/L Albumin 3.8 (3.5-5.1) g/dL Impressions Knee X-Ray 11/16/24 14:37 IMPRESSION: Severe degenerative disease within large suprapatellar joint effusion. No acute fracture. Assessment and Plan Assessment and plan (1) Fall from ground level: Code(s): W18.30XA - Fall on same level, unspecified, initial encounter Status: Acute (2) Effusion of right knee joint: Code(s): M25.461 - Effusion, right knee Status: Acute (3) Right knee pain: Code(s): M25.561 - Pain in right knee Status: Acute (4) Osteoarthritis of right knee: Code(s): M17.11 - Unilateral primary osteoarthritis, right knee Status: Acute (5) Chronic obstructive pulmonary disease: Code(s): J44.9 - Chronic obstructive pulmonary disease, unspecified Status: Acute (6) Generalized anxiety disorder: Code(s): F41.1 - Generalized anxiety disorder Status: Acute Plan The patient presented to the emergency department for evaluation of severe right knee pain after a fall as detailed in HPI. Labs, imaging, EKG, and all reports were personally reviewed. Imaging did not show evidence of fracture but did show a large suprapatellar joint effusion as well as her known severe degenerative disease. She was unable or more so apprehensive to ambulate in the emergency department and does not feel safe going home. Unfortunately she does not have an appointment with an orthopedic radiologic technologist at [place] for over a month. At this time she will be admitted for pain control and PT/OT evaluation. She will likely need long-term placement in the interim. X-rays of the shoulder and back have been ordered. Analgesics are available as needed. No acute issues with regards to COPD. Vital signs were reviewed and they are stable. Her home medications will be reviewed and resumed as appropriate. Findings and treatment plan were discussed with the patient. Questions were solicited and answered to satisfaction. The patient's medical management will be taken over by the hospitalist team in a.m. Quality VTE Prophylaxis VTE prophylaxis: mechanical ordered If No VTE Prophylaxis Answer both mechanical and pharmacologic: Reason no pharmacologic proph: medical contraindication (hold in case she needs arthrocentesis) The patient has been admitted under observation status. Hospitalist [facility] Advance Care Plan I have confirmed that the patient's Advanced Care Plan is present, code status is documented, or surrogate decision maker is listed in patient medical record.: Yes Medication Reconciliation I have utilized all available resources to obtain, update and review the patients current medications (includes all prescriptions, OTC, herbals, cannabis, and nutritional supplements).: Yes
[2024-11-16 20:00] VITALS: O2SAT 93
[2024-11-16 22:00] VITALS: BP 102/64; PULSE 73; RESP 16; TEMP 36.6; O2SAT 97
[2024-11-16] MEDS: clonazePAM (*CRX) 0.5 MG TABLET 1 MG PO (22:15)
[2024-11-16] MEDS: CARBIDOPA/LEVODOPA 25/100 MG TABLET 1 TABLET PO (22:15)
[2024-11-16] MEDS: OMEGA 3 POLYUNSAT FATTY ACIDS 1 GM CAP PO (22:15)
[2024-11-16] MEDS: PRAMIPEXOLE 0.5 MG TABLET 1.5 MG PO (22:15)
[2024-11-16] MEDS: PRIMIDONE 125 MG TABLET PO (22:16)
[2024-11-17] VITALS (7 sets, daily range): BP systolic 98–108; BP diastolic 58–78; PULSE 63–71; RESP 16–20; TEMP 36.1–36.3; O2SAT 91–94
[2024-11-17] MEDS: HYDROcodone/acetaminophen (*CRX) 5-325 MG TABLET 1 TAB PO ×3 (04:40→21:11)
[2024-11-17 06:02] LABS: Hematocrit 36.3 % (37.0-47.0); Mean Corpuscular HGB Conc 30.3 g/dl (32-36); Mean Corpuscular Hemoglobin 31.6 pg (26-34); Mean Corpuscular Volume 104.3 fl (80-100); Mean Platelet Volume 8.2 fl (7.4-10.4); Platelet Count Result 357 k/mm3 (150-375); Red Blood Count 3.48 M/mm3 (4.2-5.4); Red Cell Distribution Width 15.9 % (11.5-14.5); White Blood Count 6.2 K/mm3 (4.5-10.0)
[2024-11-17 06:26] LABS: Anion Gap 0 mmol/L (4-12); Blood Urea Nitrogen 14 mg/dL (7-17); CRP 3.6 mg/dL (<1.0); Calcium 9.3 mg/dL (8.4-10.2); Carbon Dioxide 32 mmol/L (22-30); Chloride 102 mmol/L (98-107); Estimated CRCL calculation 74 ml/min; Estimated Glomerular Filt Rate > 60; Glucose 100 mg/dL (65-110); Magnesium 2.1 mg/dL (1.6-2.3); Potassium 4.2 mmol/L (3.4-5.0); Sodium 134 mmol/L (137-145)
[2024-11-17] MEDS: FLUTICASONE/UMECLIDIN/VILANTER 200-62.5-25 MCG ELLIPTA 1 PUFF INHALATION (07:34)
[2024-11-17] MEDS: PRAMIPEXOLE 0.5 MG TABLET 1.5 MG PO ×2 (08:02→16:34)
[2024-11-17] MEDS: MULTIVITAMINS THERAPEUTIC TAB (*BKC) 1 TABLET PO (08:02)
[2024-11-17] MEDS: CARBIDOPA/LEVODOPA 25/100 MG TABLET 1 TABLET PO ×3 (08:03→16:34)
[2024-11-17] MEDS: OMEGA 3 POLYUNSAT FATTY ACIDS 1 GM CAP PO ×2 (08:03→16:34)
[2024-11-17] MEDS: ROSUVASTATIN 10 MG TABLET PO (08:03)
[2024-11-17] MEDS: CITALOPRAM HYDROBROMIDE 20 MG TABLET PO (08:03)
[2024-11-17] MEDS: PANTOPRAZOLE 40 MG TABLET PO (08:03)
[2024-11-17] MEDS: PROPRANOLOL HCL 60 MG CAPSULE CR PO (08:03)
--- NOTE | 2024-11-17 10:22 | P.PNIM_ITS ---
Progress Note: A&P Assessment and Plan (1) Fall from ground level: Code(s): W18.30XA - Fall on same level, unspecified, initial encounter Status: Acute Assessment and Plan: * thoracic and lumbar spine x-ray showing mild thoracic and lumbar spondylosis * shoulder x-ray showing polyarticular osteoarthritis * knee x-ray showing large joint effusion * PT and OT ordered (2) Effusion of right knee joint: Code(s): M25.461 - Effusion, right knee Status: Acute Assessment and Plan: * right knee x-ray showing large joint effusion * PT and OT ordered * orthopedic consult * continue pain medication as needed * Will need to wear knee brace, hold off on draining effusion for now (3) Right knee pain: Code(s): M25.561 - Pain in right knee Status: Acute Assessment and Plan: see above (4) Osteoarthritis of right knee: Code(s): M17.11 - Unilateral primary osteoarthritis, right knee Status: Acute Assessment and Plan: see above (5) Chronic obstructive pulmonary disease: Code(s): J44.9 - Chronic obstructive pulmonary disease, unspecified Status: Acute Assessment and Plan: * DuoNebs p.r.n. * continue Flonase (6) Generalized anxiety disorder: Code(s): F41.1 - Generalized anxiety disorder Status: Acute Assessment and Plan: * continue citalopram and Klonopin Time Spent With Patient Time with patient: Greater than 35 minutes Subjective Date/time seen: 11/17/24 10:22 Interval history: Interval history: This is a 74-year-old female with a significant past medical history of Parkinson's disease, restless leg syndrome, hypertension, hyperlipidemia, COPD, GERD, anxiety, osteoarthritis who presented on 11/16/2024 with complaints of right knee pain status post fall. Patient has severe degenerative arthritis in the right knee and was referred to [facility] by our ortho team however she does not have an appointment until December 20. Whenever she fell she twisted the right knee exacerbating her pain. She does not feel safe at home considering her recent fall. Workup in the hospital included a knee x-ray which showed severe degenerative disease within large suprapatellar joint effusion, no acute fracture. Shoulder x-ray only showed polyarticular osteoarthritis. Lumbar and thoracic spine x-ray showing mild thoracic and mild lumbar spondylosis. Initial labs showed a hemoglobin of 11.8, sodium 134 otherwise unremarkable. PT and OT were consulted as well as case management for rehab needs. Orthopedic consult for the joint effusion was placed as well. Patient was given pain medication and Klonopin while in the ED. Subjective: Patient denies any new complaints today. She does have quite a bit of swelling to her right knee. She reports 7/10 pain at rest and with movement 10/10 pain. Labs reviewed. Review of Systems Review of Systems: 12 systems were reviewed and are negativ e except for as per HPI. Constitutional: Constitutional: Reports as per HPI and Reports no additional constitutional complaints Eyes: Eyes: Reports as per HPI and Reports no additional eye complaints ENT: Reports system reviewed and no additional complaints, except as documented and Reports as per HPI Cardiovascular: Cardiovascular: Reports as per HPI and Reports no additional cardiovascular complaints Respiratory: Respiratory: Reports as per HPI and Reports no additional respiratory complaints Gastrointestinal: Gastrointestinal: Reports as per HPI and Reports no additional gastrointestinal complaints Genitourinary: Genitourinary: Reports no additional female genitourinary complaints and Reports as per HPI Musculoskeletal: Musculoskeletal: Reports no additional musculoskeletal complaints and Reports as per HPI Integumentary/Breasts: Skin/Breast: Reports system reviewed and no additional complaints, except as docu and Reports as per HPI Neurologic: Reports system reviewed and no additional complaints, except as documented and Reports as per HPI Psychiatric: Psychiatric: Reports no additional psychiatric complaints and Reports as per HPI Exam Narrative: General: In no acute distress, well nourished Head: atraumatic, no encephalopathy Eyes: PERRLA, sclera clear ENT: moist mucous membranes, nasal passages clear Neck: supple, no JVD, no adenopathy, trachea midline Cardiac: Normal S1 and S2. No murmur, gallops or friction rubs, peripheral pulses intact. Respiratory: Lungs clear to auscultation, no adventitious lung sounds, currently on room air Gastrointestinal: soft, non-distended, non-tender, normoactive bowel sounds. : voiding without difficulty. Extremities: limited ROM of right knee with swelling Skin: clean, dry, intact. No wounds or lesions. Neuro: Alert and oriented x4, cranial nerves intact, no neuro deficits. Psych: normal mood, normal affect, interactive Objective Data Vital Signs Vital Signs: Vital Signs - 24 hr 11/16/24 13:22 11/16/24 14:52 11/16/24 16:18 Temperature 97.6 F 97.8 F 97.8 F Pulse Rate 72 66 78 Respiratory Rate 16 18 18 Blood Pressure 109/57 L 105/67 104/56 L Pulse Oximetry 92 96 96 Oxygen Delivery Nasal Cannula Oxygen Flow Rate 3 Fraction of Inspired Oxygen 11/16/24 18:41 11/16/24 20:00 11/16/24 22:00 Temperature 97.7 F 97.8 F Pulse Rate 60 73 Respiratory Rate 18 16 Blood Pressure 113/77 102/64 Pulse Oximetry 93 93 97 Oxygen Delivery Nasal Cannula Oxygen Flow Rate 3 Fraction of Inspired Oxygen 11/17/24 06:00 11/17/24 07:34 11/17/24 07:34 Temperature 97.0 F L Pulse Rate 63 69 Respiratory Rate 16 16 Blood Pressure 108/65 Pulse Oximetry 94 91 Oxygen Delivery Nasal Cannula Oxygen Flow Rate 3 Fraction of Inspired Oxygen 32 11/17/24 08:03 11/17/24 08:17 Temperature Pulse Rate 65 Respiratory Rate Blood Pressure Pulse Oximetry 91 Oxygen Delivery Nasal Cannula Oxygen Flow Rate 3 Fraction of Inspired Oxygen Intake/Output Intake/Output: Intake & Output 11/14/24 11/15/24 11/16/24 11/17/24 23:59 23:59 23:59 23:59 Intake Total 772 Output Total 1000 Balance -228 Meds/Results Medications: Active Medications Generic Name Dose Route Start Last Admin Trade Name Freq PRN Reason Stop Dose Admin Acetaminophen 650 mg 11/16/24 16:30 Acetaminophen 325 Mg Tablet PO Q4H PRN Mild Pain (1-3) or Fever Hydrocodone Bitart/Acetaminophen 1 tab 11/16/24 16:30 11/17/24 04:40 Hydrocodone/Acetaminophen (*Crx) 5-325 Mg Tablet PO 1 tab Q4H PRN Administration Pain Rated 4-6 Albuterol/Ipratropium 3 ml 11/16/24 21:10 Ipratropium 0.5 Mg/Albuterol Sulfate 2.5 Mg Ampul.Neb 3 Ml INHALATION DAILY PRN shortness of breath or wheezing Carbidopa/Levodopa 1 tablet 11/16/24 21:15 11/17/24 08:03 Carbidopa/Levodopa 25/100 Mg Tablet PO 1 tablet TID GALINA Administration Citalopram Hydrobromide 20 mg 11/17/24 09:00 11/17/24 08:03 Citalopram Hydrobromide 20 Mg Tablet PO 20 mg DAILY GALINA Administration Clonazepam 1 mg 11/16/24 21:55 11/16/24 22:15 Clonazepam (*Crx) 0.5 Mg Tablet PO 1 mg QHS GALINA Administration Fish Oil 1 gm 11/16/24 21:20 11/17/24 08:03 [place] 3 Polyunsat Fatty Acids 1 Gm Cap PO 1 gm BID GALINA Administration Fluticasone/Umeclidinium/Vilanterol 1 puff 11/17/24 09:00 11/17/24 07:34 Fluticasone/Umeclidin/Vilanter 200-62.5-25 Mcg Ellipta INHALATION 1 puff DAILY GALINA Administration Multivitamins Therapeutic 1 tablet 11/17/24 09:00 11/17/24 08:02 Multivitamins Therapeutic Tab (*Bkc) PO 1 tablet DAILY GALINA Administration Non-Formulary Medication 1 each 11/16/24 21:18 Nonformulary Nutritional Supplement XX 11/17/24 21:17 PRN PRN PROTOCOL Pantoprazole Sodium 40 mg 11/17/24 09:00 11/17/24 08:03 Pantoprazole 40 Mg Tablet PO 40 mg QAM GALINA Administration Pramipexole Dihydrochloride 1.5 mg 11/16/24 21:20 11/17/24 08:02 Pramipexole 0.5 Mg Tablet PO 1.5 mg BID GALINA Administration Primidone 125 mg 11/16/24 21:20 11/16/24 22:16 Primidone 125 Mg Tablet PO 125 mg QHS GALINA Administration Propranolol HCl 60 mg 11/17/24 09:00 11/17/24 08:03 Propranolol Hcl 60 Mg Capsule Cr PO 60 mg DAILY GALINA Administration Rosuvastatin Calcium 10 mg 11/17/24 09:00 11/17/24 08:03 Rosuvastatin 10 Mg Tablet PO 10 mg DAILY GALINA Administration Radiology Results: ITS Impressions Knee X-Ray 11/16/24 14:37 IMPRESSION: Severe degenerative disease within large suprapatellar joint effusion. No acute fracture. Shoulder X-Ray 11/17/24 09:54 IMPRESSION: 1. Polyarticular osteoarthritis. Lumbar Spine X-Ray 11/17/24 09:55 IMPRESSION: 1. Mild lumbar spondylosis. Thoracic Spine X-Ray 11/17/24 09:57 IMPRESSION: 1. Mild thoracic spondylosis. Labs Labs: Laboratory Results - last 24 hr 11/16/24 11/17/24 16:11 05:41 WBC 5.7 6.2 RBC 3.74 L 3.48 L Hgb 11.8 L 11.0 L Hct 36.3 L 36.3 L MCV 97.1 104.3 H D MCH 31.6 31.6 MCHC 32.5 30.3 L RDW 15.7 H 15.9 H Plt Count 388 H 357 MPV 8.0 8.2 Immature Gran % (Auto) 0.3 Neut % (Auto) 48.7 Lymph % (Auto) 46.3 H [place] % (Auto) 2.4 L Eos % (Auto) 1.4 Baso % (Auto) 0.9 Lymph # (Auto) 2.65 [place] # (Auto) 0.1 Eos # (Auto) 0.1 Baso # (Auto) 0.1 Abs Immat Gran (auto) 0.02 Absolute Neuts (auto) 2.8 Absolute Nucleated RBC 0.000 Nucleated RBC % 0.0 Sodium 134 L 134 L Potassium 4.4 4.2 Chloride 101 102 Carbon Dioxide 33 H 32 H Anion Gap 0 L 0 L BUN 14 14 Creatinine 0.70 0.60 L Estim Creat Clear Calc 64 74 Estimated GFR > 60 > 60 Glucose 106 100 Calcium 9.4 9.3 Magnesium 2.1 Total Bilirubin 0.4 AST 23 ALT 10 Alkaline Phosphatase 83 C-Reactive Protein 3.6 H Total Protein 7.0 Albumin 3.8 Quality VTE Prophylaxis VTE prophylaxis: mechanical ordered
--- NOTE | 2024-11-17 12:11 | PM.CNOR ---
Assessment and Plan Assessment and plan (1) Knee effusion, right: Code(s): M25.461 - Effusion, right knee <Yomaira Kiran PA - Last Filed: 11/17/24 15:28> Status: Acute <Yomaira Kiran PA - Last Filed: 11/17/24 15:28> (2) Osteoarthritis of right knee: Qualifiers: Osteoarthritis type: primary Qualified Code(s): M17.11 - Unilateral primary osteoarthritis, right knee <Yomaira Kiran PA - Last Filed: 11/17/24 15:28> Code(s): M17.11 - Unilateral primary osteoarthritis, right knee <Yomaira Kiran PA - Last Filed: 11/17/24 15:28> Status: Acute <Yomaira Kiran PA - Last Filed: 11/17/24 15:28> (3) Parkinson disease: Code(s): G20.A1 - Parkinson's disease without dyskinesia, without mention of fluctuations <Yomaira Kiran PA - Last Filed: 11/17/24 15:28> Status: Acute <Yomaira Kiran PA - Last Filed: 11/17/24 15:28> (4) Fall from ground level: Code(s): W18.30XA - Fall on same level, unspecified, initial encounter <Yomaira Kiran PA - Last Filed: 11/17/24 15:28> Status: Acute <Yomaira Kiran PA - Last Filed: 11/17/24 15:28> (5) Parkinson disease: Code(s): G20.A1 - Parkinson's disease without dyskinesia, without mention of fluctuations <Yomaira Kiran PA - Last Filed: 11/17/24 15:28> Status: Acute <Yomaira Kiran PA - Last Filed: 11/17/24 15:28> Assessment and Plan: Acute right knee pain after a fall. Findings consistent with medial collateral ligament sprain and aggravation of pre-existing arthritis. No evidence of acute fracture or dislocation. Fall risk and deconditioning secondary to Parkinson's disease. Discussed the care plan with patient and her . She had a tertiary care center work-up this year by Neurology and Orthopedics. No surgery indicated. She may use a hinged brace that her will bring in from home. She is a good candidate for inpatient rehabilitation, with good potential for improvement in mobility and safety. <Ford Cooper MD - Last Filed: 11/17/24 15:29> History of Present Illness HPI Consult date: 11/17/24 <MANOLO Cortez - Last Filed: 11/17/24 15:28> 11/17/24 <Ford Cooper MD - Last Filed: 11/17/24 15:29> Chief complaint: right knee arthuritis with effusion <MANOLO Cortez - Last Filed: 11/17/24 15:28> Narrative: Patient fell in her bathroom yesterday 11/16/24. Notes her knee went behind her. She fell onto her shoulder. She states her back is also hurting. Patient has been declining over the last few months. She has a history of Parkinson's. She does not walk much. She uses a walker. No significant worsening in pain since the fall. No new numbness or tingling. She is able to move her shoulder with just mild pain. No bruising at the shoulder or knee. She is hoping to go to rehab as she is very deconditioned. She is very motivated to rehab. <MANOLO Cortez - Last Filed: 11/17/24 15:28> Review of Systems Review of Systems: All systems reviewed & are unremarkable except as noted in HPI and below <MANOLO Cortez - Last Filed: 11/17/24 15:28> [facility] Past Medical History Medical History: Medical History (Updated 11/17/24 @ 15:23 by Ford Cooper MD) Generalized anxiety disorder Gastroesophageal reflux disease Chronic obstructive pulmonary disease Basal cell carcinoma of skin Persistent insomnia Nicotine dependence in remission Hypercholesterolemia Functional constipation <MANOLO Cortez - Last Filed: 11/17/24 15:28> Surgical History Surgical History: Surgical History (Updated 11/16/24 @ 21:07 by Marianela Bertrand PA-C) History of hysterectomy (2020) History of cataract extraction History of meniscectomy of right knee (06/2024) arthroscopic partial medial and lateral meniscectomy History of open reduction and internal fixation (ORIF) procedure (08/2023) repair left hip fracture History of D&C x2 History of basal cell carcinoma excision nose <MANOLO Cortez - Last Filed: 11/17/24 15:28> Family History Family History: Family History Unknown Heart disease Parkinson disease Diabetes mellitus Other Family history of arthritis Family history of gout <MANOLO Cortez Last Filed: 11/17/24 15:28> Social History Social History: Social History (Updated 11/16/24 @ 21:07 by Marianela Bertrand PA-C) Social History: Surrogate medical decision maker: Wilder Floresueger, spouse. Code status: Full code. Smoking packs per day: 0.1 Smoking cigarettes per day: 2.0 Years smoked: 50 Smoking pack-years: 5.00 Smoking status: Former smoker Tobacco type: cigarettes Second hand tobacco smoke exposure: No Smoking end date: 11/19/21 Alcohol intake: never Substance use: never Do You Feel Safe in your Home?: Yes Lack of Transportation: No Lack of Food: Never True Current Housing: I Have Housing Concerned About Future Housing: No Difficulty Paying Gas/Electric Bills: No Difficulty Paying for Meds: No Currently Unemployed: No Education: High School Diploma/GED Difficulty w/ Childcare or Family Care: No Spiritual care concerns: No <MANOLO Cortez - Last Filed: 11/17/24 15:28> Meds Home Medications and Allergies Home medications: Home Medications ?Medication ?Instructions ?Recorded ?Confirmed ?Type citalopram 20 mg tablet 20 mg PO DAILY 12/14/20 11/16/24 History clonazepam 1 mg tablet 1 mg PO HS RLS 12/14/20 11/16/24 History esomeprazole magnesium 20 mg 20 mg PO DAILY 12/14/20 11/16/24 History capsule,delayed release propranolol 60 mg capsule,24 60 mg PO DAILY 12/14/20 11/16/24 History hr,extended release rosuvastatin 10 mg tablet 10 mg PO DAILY 12/14/20 11/16/24 History fluticasone fur. 200 mcg-umeclid 1 inh inhalation .evening 04/28/24 11/16/24 History 62.5 mcg-vilant 25 mcg inhalat.powder (Trelegy Ellipta) omega 0-nhg-zft-fish oil 300 1 cap PO BID 04/28/24 11/16/24 History mg-1,000 mg capsule (Fish Oil) calcium 333 mg 1 tablet PO DAILY 07/01/24 11/16/24 History (carbonate)-magnesium 133 mg (oxide)-zinc 5 mg tablet multivitamin (Daily Multi-Vitamin 1 tablet PO DAILY 07/01/24 11/16/24 History tablet) pramipexole 1.5 mg tablet 1.5 mg PO BID 07/01/24 11/16/24 History carbidopa 25 mg-levodopa 100 mg 1 tablet PO TID 09/03/24 11/16/24 History tablet primidone 250 mg tablet 125 mg PO QHS 09/03/24 11/16/24 History ipratropium 0.5 mg-albuterol 3 mg 3 ml inhalation DAILY PRN 11/16/24 11/16/24 History (2.5 mg base)/3 mL nebulization shortness of breath or wheezing soln <MANOLO Cortez - Last Filed: 11/17/24 15:28> Allergies/Adverse reactions: Allergies Allergy/AdvReac Type Severity Reaction Status Date / Time ibuprofen Allergy Unknown Rash Verified 09/03/24 14:37 <MANOLO Cortez - Last Filed: 11/17/24 15:28> Vital Signs Vital Signs - 24 hr 11/16/24 13:22 11/16/24 14:52 11/16/24 16:18 Temperature 97.6 F 97.8 F 97.8 F Pulse Rate 72 66 78 Respiratory Rate 16 18 18 Blood Pressure 109/57 L 105/67 104/56 L Pulse Oximetry 92 96 96 Oxygen Delivery Nasal Cannula Oxygen Flow Rate 3 Fraction of Inspired Oxygen 11/16/24 18:41 11/16/24 20:00 11/16/24 22:00 Temperature 97.7 F 97.8 F Pulse Rate 60 73 Respiratory Rate 18 16 Blood Pressure 113/77 102/64 Pulse Oximetry 93 93 97 Oxygen Delivery Nasal Cannula Oxygen Flow Rate 3 Fraction of Inspired Oxygen 11/17/24 06:00 11/17/24 07:34 11/17/24 07:34 Temperature 97.0 F L Pulse Rate 63 69 Respiratory Rate 16 16 Blood Pressure 108/65 Pulse Oximetry 94 91 Oxygen Delivery Nasal Cannula Oxygen Flow Rate 3 Fraction of Inspired Oxygen 32 11/17/24 08:03 11/17/24 08:17 Temperature Pulse Rate 65 Respiratory Rate Blood Pressure Pulse Oximetry 91 Oxygen Delivery Nasal Cannula Oxygen Flow Rate 3 Fraction of Inspired Oxygen <MANOLO Cortez - Last Filed: 11/17/24 15:28> Exam Narrative: 74 y/o female. No acute distress. Wearing O2 nasal canula. Tremor in her hand. Laying comfortably at the time of my visit. Shoulder with no swelling, joint effusion, or bruising. No erythema or warmth. Mild pain with motion. Full range of motion. Expected strength. Knee with moderate effusion. Slight MCL laxity. Diffuse pain. No redness or warmth. ACL and PCL intact. She does have some early signs of foot drop. Distal vascularly intact. No distal edema. <MANOLO Cortez - Last Filed: 11/17/24 15:28> Results Labs Result Diagrams: 11/17/24 05:41 11/17/24 05:41 <MANOLO Cortez - Last Filed: 11/17/24 15:28> Labs: Abnormal lab results 11/16/24 11/17/24 Range/Units 16:11 05:41 RBC 3.74 L 3.48 L (4.2-5.4) M/mm3 Hgb 11.8 L 11.0 L (12.0-15.0) g/dL Hct 36.3 L 36.3 L (37.0-47.0) % MCV 104.3 H D (80-100) fl MCHC 30.3 L (32-36) g/dl RDW 15.7 H 15.9 H (11.5-14.5) % Plt Count 388 H (150-375) k/mm3 Lymph % (Auto) 46.3 H (18.3-44.2) % [place] % (Auto) 2.4 L (2.6-8.5) % Sodium 134 L 134 L (137-145) mmol/L Carbon Dioxide 33 H 32 H (22-30) mmol/L Anion Gap 0 L 0 L (4-12) mmol/L Creatinine 0.60 L (0.7-1.0) mg/dL C-Reactive Protein 3.6 H (<1.0) mg/dL H & H 11/16/24 11/17/24 Range/Units 16:11 05:41 Hgb 11.8 L 11.0 L (12.0-15.0) g/dL Hct 36.3 L 36.3 L (37.0-47.0) % All other labs normal. <MANOLO Cortez - Last Filed: 11/17/24 15:28>
[2024-11-17] MEDS: clonazePAM (*CRX) 0.5 MG TABLET 1 MG PO (21:10)
[2024-11-17] MEDS: PRIMIDONE 125 MG TABLET PO (21:11)
[2024-11-18] VITALS (8 sets, daily range): BP systolic 94–119; BP diastolic 51–83; PULSE 50–80; RESP 16–20; TEMP 36.6–36.9; O2SAT 92–94
[2024-11-18] MEDS: HYDROcodone/acetaminophen (*CRX) 5-325 MG TABLET 1 TAB PO ×4 (02:26→17:32)
--- NOTE | 2024-11-18 09:32 | P.PNIM_ITS ---
Progress Note: A&P Assessment and Plan (1) Fall from ground level: Code(s): W18.30XA - Fall on same level, unspecified, initial encounter Status: Acute Assessment and Plan: * thoracic and lumbar spine x-ray showing mild thoracic and lumbar spondylosis * shoulder x-ray showing polyarticular osteoarthritis * knee x-ray showing large joint effusion * PT and OT ordered (2) Effusion of right knee joint: Code(s): M25.461 - Effusion, right knee Status: Acute Assessment and Plan: * right knee x-ray showing large joint effusion * PT and OT ordered * orthopedic consult * continue pain medication as needed * Will need to wear knee brace, hold off on draining effusion for now 11/18 * Case management following for rehab needs * Ortho following * Continue PT and OT * Continue pain control * ice and elevate for swelling (3) Right knee pain: Code(s): M25.561 - Pain in right knee Status: Acute Assessment and Plan: see above (4) Osteoarthritis of right knee: Qualifiers: Osteoarthritis type: primary Qualified Code(s): M17.11 - Unilateral primary osteoarthritis, right knee Code(s): M17.11 - Unilateral primary osteoarthritis, right knee Status: Acute Assessment and Plan: see above (5) Chronic obstructive pulmonary disease: Code(s): J44.9 - Chronic obstructive pulmonary disease, unspecified Status: Acute Assessment and Plan: * DuoNebs p.r.n. * continue Flonase (6) Generalized anxiety disorder: Code(s): F41.1 - Generalized anxiety disorder Status: Acute Assessment and Plan: * continue citalopram and Klonopin (7) Parkinson disease: Code(s): G20.A1 - Parkinson's disease without dyskinesia, without mention of fluctuations Status: Acute Assessment and Plan: * Likely contributing to falls Time Spent With Patient Time with patient: 15 - 25 minutes Subjective Date/time seen: 11/18/24 09:32 Interval history: Interval history: This is a 74-year-old female with a significant past medical history of Parkinson's disease, restless leg syndrome, hypertension, hyperlipidemia, COPD, GERD, anxiety, osteoarthritis who presented on 11/16/2024 with complaints of right knee pain status post fall. Patient has severe degenerative arthritis in the right knee and was referred to [facility] by our ortho team however she does not have an appointment until December 20. Whenever she fell she twisted the right knee exacerbating her pain. She does not feel safe at home considering her recent fall. Workup in the hospital included a knee x-ray which showed severe degenerative disease within large suprapatellar joint effusion, no acute fracture. Shoulder x-ray only showed polyarticular osteoarthritis. Lumbar and thoracic spine x-ray showing mild thoracic and mild lumbar spondylosis. Initial labs showed a hemoglobin of 11.8, sodium 134 otherwise unremarkable. PT and OT were consulted as well as case management for rehab needs. Orthopedic consult for the joint effusion was placed as well. Patient was given pain medication and Klonopin while in the ED. Subjective: Patient states pain is well controlled. She is sitting up in the chair with her knee brace on. She denies any new complaints today. Labs reviewed. Review of Systems Review of Systems: 12 systems were reviewed and are negativ e except for as per HPI. Constitutional: Constitutional: Reports as per HPI and Reports no additional constitutional complaints Eyes: Eyes: Reports as per HPI and Reports no additional eye complaints ENT: Reports system reviewed and no additional complaints, except as documented and Reports as per HPI Cardiovascular: Cardiovascular: Reports as per HPI and Reports no additional cardiovascular complaints Respiratory: Respiratory: Reports as per HPI and Reports no additional respiratory complaints Gastrointestinal: Gastrointestinal: Reports as per HPI and Reports no braeden tional gastrointestinal complaints Genitourinary: Genitourinary: Reports no additional female genitourinary complaints and Reports as per HPI Musculoskeletal: Musculoskeletal: Reports no additional musculoskeletal complaints and Reports as per HPI Integumentary/Breasts: Skin/Breast: Reports system reviewed and no additional complaints, except as docu and Reports as per HPI Neurologic: Reports system reviewed and no additional complaints, except as documented and Reports as per HPI Psychiatric: Psychiatric: Reports no additional psychiatric complaints and Reports as per HPI Exam Narrative: General: In no acute distress, well nourished Cardiac: Normal S1 and S2. No murmur, gallops or friction rubs, peripheral pulses intact. Respiratory: Lungs clear to auscultation, no adventitious lung sounds, currently on 3L NC which is her baseline O2 requirement Gastrointestinal: soft, non-distended, non-tender, normoactive bowel sounds. : voiding without difficulty. Extremities: limited ROM of right knee with swelling--knee brace in place Neuro: Alert and oriented x4 Objective Data Vital Signs Vital Signs: Vital Signs - 24 hr 11/17/24 13:17 11/17/24 13:41 11/17/24 13:56 Temperature 97.1 F L Pulse Rate 71 Respiratory Rate 20 Blood Pressure 98/58 L Pulse Oximetry 91 Oxygen Delivery Nasal Cannula Nasal Cannula Oxygen Flow Rate 3 3 11/17/24 20:00 11/17/24 22:00 11/18/24 06:00 Temperature 97.3 F L 98.4 F Pulse Rate 70 66 Respiratory Rate 16 16 Blood Pressure 102/78 119/83 Pulse Oximetry 93 93 94 Oxygen Delivery Nasal Cannula Oxygen Flow Rate 3 Intake/Output Intake/Output: Intake & Output 11/15/24 11/16/24 11/17/24 11/18/24 23:59 23:59 23:59 23:59 Intake Total 1572 550 Output Total 1450 600 Balance 122 -50 Meds/Results Medications: Active Medications Generic Name Dose Route Start Last Admin Trade Name Freq PRN Reason Stop Dose Admin Acetaminophen 650 mg 11/16/24 16:30 Acetaminophen 325 Mg Tablet PO Q4H PRN Mild Pain (1-3) or Fever Hydrocodone Bitart/Acetaminophen 1 tab 11/16/24 16:30 11/18/24 06:43 Hydrocodone/Acetaminophen (*Crx) 5-325 Mg Tablet PO 1 tab Q4H PRN Administration Pain Rated 4-6 Albuterol/Ipratropium 3 ml 11/16/24 21:10 Ipratropium 0.5 Mg/Albuterol Sulfate 2.5 Mg Ampul.Neb 3 Ml INHALATION DAILY PRN shortness of breath or wheezing Carbidopa/Levodopa 1 tablet 11/16/24 21:15 11/17/24 16:34 Carbidopa/Levodopa 25/100 Mg Tablet PO 1 tablet TID GALINA Administration Citalopram Hydrobromide 20 mg 11/17/24 09:00 11/17/24 08:03 Citalopram Hydrobromide 20 Mg Tablet PO 20 mg DAILY GALINA Administration Clonazepam 1 mg 11/16/24 21:55 11/17/24 21:10 Clonazepam (*Crx) 0.5 Mg Tablet PO 1 mg QHS GALINA Administration Fish Oil 1 gm 11/16/24 21:20 11/17/24 16:34 [place] 3 Polyunsat Fatty Acids 1 Gm Cap PO 1 gm BID GALINA Administration Fluticasone/Umeclidinium/Vilanterol 1 puff 11/17/24 09:00 11/17/24 07:34 Fluticasone/Umeclidin/Vilanter 200-62.5-25 Mcg Ellipta INHALATION 1 puff DAILY GALINA Administration Multivitamins Therapeutic 1 tablet 11/17/24 09:00 11/17/24 08:02 Multivitamins Therapeutic Tab (*Bkc) PO 1 tablet DAILY GALINA Administration Pantoprazole Sodium 40 mg 11/17/24 09:00 11/17/24 08:03 Pantoprazole 40 Mg Tablet PO 40 mg QAM GALINA Administration Pramipexole Dihydrochloride 1.5 mg 11/16/24 21:20 11/17/24 16:34 Pramipexole 0.5 Mg Tablet PO 1.5 mg BID GALINA Administration Primidone 125 mg 11/16/24 21:20 11/17/24 21:11 Primidone 125 Mg Tablet PO 125 mg QHS GALINA Administration Propranolol HCl 60 mg 11/17/24 09:00 11/17/24 08:03 Propranolol Hcl 60 Mg Capsule Cr PO 60 mg DAILY GALINA Administration Rosuvastatin Calcium 10 mg 11/17/24 09:00 11/17/24 08:03 Rosuvastatin 10 Mg Tablet PO 10 mg DAILY GALINA Administration Radiology Results: ITS Impressions Knee X-Ray 11/16/24 14:37 IMPRESSION: Severe degenerative disease within large suprapatellar joint effusion. No acute fracture. Shoulder X-Ray 11/17/24 09:54 IMPRESSION: 1. Polyarticular osteoarthritis. Lumbar Spine X-Ray 11/17/24 09:55 IMPRESSION: 1. Mild lumbar spondylosis. Thoracic Spine X-Ray 11/17/24 09:57 IMPRESSION: 1. Mild thoracic spondylosis. Quality VTE Prophylaxis VTE prophylaxis: mechanical ordered
[2024-11-18] MEDS: FLUTICASONE/UMECLIDIN/VILANTER 200-62.5-25 MCG ELLIPTA 1 PUFF INHALATION (09:35)
[2024-11-18] MEDS: PRAMIPEXOLE 0.5 MG TABLET 1.5 MG PO ×2 (09:36→17:29)
[2024-11-18] MEDS: CITALOPRAM HYDROBROMIDE 20 MG TABLET PO (09:36)
[2024-11-18] MEDS: OMEGA 3 POLYUNSAT FATTY ACIDS 1 GM CAP PO ×2 (09:36→17:29)
[2024-11-18] MEDS: MULTIVITAMINS THERAPEUTIC TAB (*BKC) 1 TABLET PO (09:36)
[2024-11-18] MEDS: CARBIDOPA/LEVODOPA 25/100 MG TABLET 1 TABLET PO ×3 (09:36→17:29)
[2024-11-18] MEDS: PANTOPRAZOLE 40 MG TABLET PO (09:37)
[2024-11-18] MEDS: ROSUVASTATIN 10 MG TABLET PO (09:37)
[2024-11-18] MEDS: PROPRANOLOL HCL 60 MG CAPSULE CR PO (09:38)
--- NOTE | 2024-11-18 10:02 | P.PNOP_ITS ---
Progress Note: A&P Assessment and Plan (1) Osteoarthritis of right knee: Qualifiers: Osteoarthritis type: primary Qualified Code(s): M17.11 - Unilateral primary osteoarthritis, right knee Code(s): M17.11 - Unilateral primary osteoarthritis, right knee Status: Acute (2) Effusion of right knee joint: Code(s): M25.461 - Effusion, right knee Status: Acute (3) Fall from ground level: Code(s): W18.30XA - Fall on same level, unspecified, initial encounter Status: Acute (4) Parkinson disease: Code(s): G20.A1 - Parkinson's disease without dyskinesia, without mention of fluctuations Status: Acute Plan Patient progressing well. Working with therapy. Eager to do formal physical therapy. Pain manageable. will be bringing her knee brace. No other changes in care plan. Last injection did not help patient. Awaiting placement to SNF/Rehab. Acute right knee pain after a fall. Findings consistent with medial collateral ligament sprain and aggravation of pre-existing arthritis. No evidence of acute fracture or dislocation. Fall risk and deconditioning secondary to Parkinson's disease. Discussed the care plan with patient and her . She had a tertiary care center work-up this year by Neurology and Orthopedics. No surgery indicated. She may use a hinged brace that her will bring in from home. She is a good candidate for inpatient rehabilitation, with good potential for improvement in mobility and safety. Subjective Subjective Date/Time Seen: 11/18/24 10:02 Interval history: Patient progressing well. Working with formal physical therapy. Pain controlled. She is eager to go to do therapy. No other complaints. Review of Systems Review of Systems: All systems reviewed & are unremarkable except as noted in HPI and below Exam Narrative: 74 y/o female. No acute distress. Wearin g O2 nasal canula. Tremor in her hand. Laying comfortably at the time of my visit. Shoulder with no swelling, joint effusion, or bruising. No erythema or warmth. Mild pain with motion. Full range of motion. Expected strength. Knee with moderate effusion. Slight MCL laxity. Diffuse pain. No redness or warmth. ACL and PCL intact. She does have some early signs of foot drop. Distal vascularly intact. No distal edema. Objective Data Vital Signs Vital Signs: Vital Signs - 24 hr 11/17/24 13:17 11/17/24 13:41 11/17/24 13:56 Temperature 97.1 F L Pulse Rate 71 Respiratory Rate 20 Blood Pressure 98/58 L Pulse Oximetry 91 Oxygen Delivery Nasal Cannula Nasal Cannula Oxygen Flow Rate 3 3 11/17/24 20:00 11/17/24 22:00 11/18/24 06:00 Temperature 97.3 F L 98.4 F Pulse Rate 70 66 Respiratory Rate 16 16 Blood Pressure 102/78 119/83 Pulse Oximetry 93 93 94 Oxygen Delivery Nasal Cannula Oxygen Flow Rate 3 11/18/24 08:00 11/18/24 09:35 11/18/24 09:35 Temperature Pulse Rate 75 50 L 80 Respiratory Rate 20 20 20 Blood Pressure Pulse Oximetry 92 92 Oxygen Delivery Nasal Cannula Nasal Cannula Oxygen Flow Rate 3 3 11/18/24 09:38 Temperature Pulse Rate 75 Respiratory Rate Blood Pressure Pulse Oximetry Oxygen Delivery Oxygen Flow Rate Intake/Output Intake/Output: Intake & Output 11/15/24 11/16/24 11/17/24 11/18/24 23:59 23:59 23:59 23:59 Intake Total 1572 550 Output Total 1450 600 Balance 122 -50 Meds/Results Medications: Active Medications Generic Name Dose Route Start Last Admin Trade Name Freq PRN Reason Stop Dose Admin Acetaminophen 650 mg 11/16/24 16:30 Acetaminophen 325 Mg Tablet PO Q4H PRN Mild Pain (1-3) or Fever Hydrocodone Bitart/Acetaminophen 1 tab 11/16/24 16:30 11/18/24 06:43 Hydrocodone/Acetaminophen (*Crx) 5-325 Mg Tablet PO 1 tab Q4H PRN Administration Pain Rated 4-6 Albuterol/Ipratropium 3 ml 11/16/24 21:10 Ipratropium 0.5 Mg/Albuterol Sulfate 2.5 Mg Ampul.Neb 3 Ml INHALATION DAILY PRN shortness of breath or wheezing Carbidopa/Levodopa 1 tablet 11/16/24 21:15 11/18/24 09:36 Carbidopa/Levodopa 25/100 Mg Tablet PO 1 tablet TID GALINA Administration Citalopram Hydrobromide 20 mg 11/17/24 09:00 11/18/24 09:36 Citalopram Hydrobromide 20 Mg Tablet PO 20 mg DAILY GALINA Administration Clonazepam 1 mg 11/16/24 21:55 11/17/24 21:10 Clonazepam (*Crx) 0.5 Mg Tablet PO 1 mg QHS GALINA Administration Fish Oil 1 gm 11/16/24 21:20 11/18/24 09:36 [place] 3 Polyunsat Fatty Acids 1 Gm Cap PO 1 gm BID GALINA Administration Fluticasone/Umeclidinium/Vilanterol 1 puff 11/17/24 09:00 11/18/24 09:35 Fluticasone/Umeclidin/Vilanter 200-62.5-25 Mcg Ellipta INHALATION 1 puff DAILY GALINA Administration Multivitamins Therapeutic 1 tablet 11/17/24 09:00 11/18/24 09:36 Multivitamins Therapeutic Tab (*Bkc) PO 1 tablet DAILY GALINA Administration Pantoprazole Sodium 40 mg 11/17/24 09:00 11/18/24 09:37 Pantoprazole 40 Mg Tablet PO 40 mg QAM GALINA Administration Pramipexole Dihydrochloride 1.5 mg 11/16/24 21:20 11/18/24 09:36 Pramipexole 0.5 Mg Tablet PO 1.5 mg BID GALINA Administration Primidone 125 mg 11/16/24 21:20 11/17/24 21:11 Primidone 125 Mg Tablet PO 125 mg QHS GALINA Administration Propranolol HCl 60 mg 11/17/24 09:00 11/18/24 09:38 Propranolol Hcl 60 Mg Capsule Cr PO 60 mg DAILY GALINA Administration Rosuvastatin Calcium 10 mg 11/17/24 09:00 11/18/24 09:37 Rosuvastatin 10 Mg Tablet PO 10 mg DAILY GALINA Administration Radiology Results: ITS Impressions Knee X-Ray 11/16/24 14:37 IMPRESSION: Severe degenerative disease within large suprapatellar joint effusion. No acute fracture. Shoulder X-Ray 11/17/24 09:54 IMPRESSION: 1. Polyarticular osteoarthritis. Lumbar Spine X-Ray 11/17/24 09:55 IMPRESSION: 1. Mild lumbar spondylosis. Thoracic Spine X-Ray 11/17/24 09:57 IMPRESSION: 1. Mild thoracic spondylosis.
[2024-11-18] MEDS: PRIMIDONE 125 MG TABLET PO (20:10)
[2024-11-18] MEDS: clonazePAM (*CRX) 0.5 MG TABLET 1 MG PO (20:10)
[2024-11-19] MEDS: HYDROcodone/acetaminophen (*CRX) 5-325 MG TABLET 1 TAB PO ×2 (05:28→18:09)
[2024-11-19 05:30] VITALS: BP 107/56; PULSE 66; RESP 16; TEMP 36.4; O2SAT 92
[2024-11-19 07:59] VITALS: O2SAT 92
[2024-11-19] MEDS: FLUTICASONE/UMECLIDIN/VILANTER 200-62.5-25 MCG ELLIPTA 1 PUFF INHALATION (07:59)
[2024-11-19 08:00] VITALS: PULSE 75; RESP 20; O2SAT 92
[2024-11-19] MEDS: PRAMIPEXOLE 0.5 MG TABLET 1.5 MG PO ×2 (09:03→18:10)
[2024-11-19] MEDS: ROSUVASTATIN 10 MG TABLET PO (09:03)
[2024-11-19] MEDS: OMEGA 3 POLYUNSAT FATTY ACIDS 1 GM CAP PO ×2 (09:04→18:09)
[2024-11-19] MEDS: PANTOPRAZOLE 40 MG TABLET PO (09:04)
[2024-11-19] MEDS: CITALOPRAM HYDROBROMIDE 20 MG TABLET PO (09:04)
[2024-11-19] MEDS: CARBIDOPA/LEVODOPA 25/100 MG TABLET 1 TABLET PO ×3 (09:04→18:10)
[2024-11-19] MEDS: MULTIVITAMINS THERAPEUTIC TAB (*BKC) 1 TABLET PO (09:04)
[2024-11-19 09:05] VITALS: PULSE 70
[2024-11-19] MEDS: PROPRANOLOL HCL 60 MG CAPSULE CR PO (09:05)
[2024-11-19] MEDS: polyethylene glycoL 3350 17 GM POWD.PACK PO (12:34)
--- NOTE | 2024-11-19 13:02 | P.PNIM_ITS ---
Progress Note: A&P Assessment and Plan (1) Fall from ground level: Code(s): W18.30XA - Fall on same level, unspecified, initial encounter Status: Acute Assessment and Plan: * thoracic and lumbar spine x-ray showing mild thoracic and lumbar spondylosis * shoulder x-ray showing polyarticular osteoarthritis * knee x-ray showing large joint effusion * PT and OT ordered (2) Effusion of right knee joint: Code(s): M25.461 - Effusion, right knee Status: Acute Assessment and Plan: * right knee x-ray showing large joint effusion * PT and OT ordered * orthopedic consult * continue pain medication as needed * Will need to wear knee brace, hold off on draining effusion for now 11/18 * Case management following for rehab needs * Ortho following * Continue PT and OT * Continue pain control * ice and elevate for swelling Continue with treatment pending placement to rehab (3) Right knee pain: Code(s): M25.561 - Pain in right knee Status: Acute Assessment and Plan: see above (4) Osteoarthritis of right knee: Qualifiers: Osteoarthritis type: primary Qualified Code(s): M17.11 - Unilateral primary osteoarthritis, right knee Code(s): M17.11 - Unilateral primary osteoarthritis, right knee Status: Acute Assessment and Plan: see above (5) Chronic obstructive pulmonary disease: Code(s): J44.9 - Chronic obstructive pulmonary disease, unspecified Status: Acute Assessment and Plan: * Christian reed * continue Flonase * continue with home oxygen 3 L nasal cannula * not appearing exacerbation (6) Generalized anxiety disorder: Code(s): F41.1 - Generalized anxiety disorder Status: Acute Assessment and Plan: * continue citalopram and Klonopin (7) Parkinson disease: Code(s): G20.A1 - Parkinson's disease without dyskinesia, without mention of fluctuations Status: Acute Assessment and Plan: * resume carbidopa levodopa Plan Code status: Full code per patient DVT prophylaxis: Lovenox Stress ulcer prophylaxis: NA PT/OT notes: REHAB Disposition: Patient continues admission pending insurance authorization for continued rehabilitation for worsening right knee pain. patient appears stable and will discharge once insurance authorization is received. Time Spent With Patient Time with patient: 15 - 25 minutes Subjective Date/time seen: 11/19/24 13:02 Interval history: Patient is a 74 year old female admitted for worsening right knee pain secondary to degenerative arthritis with inability to ambulate due to pain. 11/19/24: Assumed Care Patient with complaints of constipation otherwise comfortable and working with PT. Pain is tolerated with pain medication. Currently waiting on rehab placement. Review of Systems Review of Systems: 12 systems were reviewed and are negativ e except for as per HPI. All systems reviewed & are unremarkable except as noted in HPI and below Exam Narrative: General: In no acute distress, well nourished Cardiac: Normal S1 and S2. Respiratory: Lungs clear to auscultation, no adventitious lung sounds, currently on 3L NC which is her baseline O2 requirement Gastrointestinal: soft, non-distended, non-tender, normoactive bowel sounds. : voiding without difficulty. Extremities: limited ROM of right knee with swelling--knee brace in place Neuro: Alert and oriented x4 Objective Data Vital Signs Vital Signs: Vital Signs - 24 hr 11/18/24 14:35 11/18/24 15:49 11/18/24 16:50 Temperature 98.1 F Pulse Rate 71 Respiratory Rate 18 Blood Pressure 98/61 L 94/51 L 100/79 Pulse Oximetry 93 Oxygen Delivery Oxygen Flow Rate Fraction of Inspired Oxygen 11/18/24 20:05 11/19/24 05:30 11/19/24 07:59 Temperature 97.9 F 97.6 F Pulse Rate 60 66 Respiratory Rate 18 16 Blood Pressure 103/51 L 107/56 L Pulse Oximetry 94 92 92 Oxygen Delivery Nasal Cannula Oxygen Flow Rate 3 Fraction of Inspired Oxygen 32 11/19/24 08:00 11/19/24 09:05 Temperature Pulse Rate 75 70 Respiratory Rate 20 Blood Pressure Pulse Oximetry 92 Oxygen Delivery Nasal Cannula Oxygen Flow Rate 3 Fraction of Inspired Oxygen Intake/Output Intake/Output: Intake & Output 11/16/24 11/17/24 11/18/24 11/19/24 23:59 23:59 23:59 23:59 Intake Total 1572 2770 470 Output Total 1450 600 Balance 122 2170 470 Meds/Results Medications: Active Medications Generic Name Dose Route Start Last Admin Trade Name Freq PRN Reason Stop Dose Admin Acetaminophen 650 mg 11/16/24 16:30 Acetaminophen 325 Mg Tablet PO Q4H PRN Mild Pain (1-3) or Fever Hydrocodone Bitart/Acetaminophen 1 tab 11/16/24 16:30 11/19/24 05:28 Hydrocodone/Acetaminophen (*Crx) 5-325 Mg Tablet PO 1 tab Q4H PRN Administration Pain Rated 4-6 Albuterol/Ipratropium 3 ml 11/16/24 21:10 Ipratropium 0.5 Mg/Albuterol Sulfate 2.5 Mg Ampul.Neb 3 Ml INHALATION DAILY PRN shortness of breath or wheezing Carbidopa/Levodopa 1 tablet 11/16/24 21:15 11/19/24 12:34 Carbidopa/Levodopa 25/100 Mg Tablet PO 1 tablet TID GALINA Administration Citalopram Hydrobromide 20 mg 11/17/24 09:00 11/19/24 09:04 Citalopram Hydrobromide 20 Mg Tablet PO 20 mg DAILY GALINA Administration Clonazepam 1 mg 11/16/24 21:55 11/18/24 20:10 Clonazepam (*Crx) 0.5 Mg Tablet PO 1 mg QHS GALINA Administration Fish Oil 1 gm 11/16/24 21:20 11/19/24 09:04 [place] 3 Polyunsat Fatty Acids 1 Gm Cap PO 1 gm BID GALINA Administration Fluticasone/Umeclidinium/Vilanterol 1 puff 11/17/24 09:00 11/19/24 07:59 Fluticasone/Umeclidin/Vilanter 200-62.5-25 Mcg Ellipta INHALATION 1 puff DAILY GALINA Administration Multivitamins Therapeutic 1 tablet 11/17/24 09:00 11/19/24 09:04 Multivitamins Therapeutic Tab (*Bkc) PO 1 tablet DAILY GALINA Administration Pantoprazole Sodium 40 mg 11/17/24 09:00 11/19/24 09:04 Pantoprazole 40 Mg Tablet PO 40 mg QAM GALINA Administration Polyethylene Glycol 17 gm 11/19/24 10:58 11/19/24 12:34 Polyethylene Glycol 3350 17 Gm Powd.Pack PO 17 gm QAM PRN Administration Constipation Pramipexole Dihydrochloride 1.5 mg 11/16/24 21:20 11/19/24 09:03 Pramipexole 0.5 Mg Tablet PO 1.5 mg BID GALINA Administration Primidone 125 mg 11/16/24 21:20 11/18/24 20:10 Primidone 125 Mg Tablet PO 125 mg QHS GALINA Administration Propranolol HCl 60 mg 11/17/24 09:00 11/19/24 09:05 Propranolol Hcl 60 Mg Capsule Cr PO 60 mg DAILY GALINA Administration Rosuvastatin Calcium 10 mg 11/17/24 09:00 11/19/24 09:03 Rosuvastatin 10 Mg Tablet PO 10 mg DAILY GALINA Administration Radiology Results: ITS Impressions Knee X-Ray 11/16/24 14:37 IMPRESSION: Severe degenerative disease within large suprapatellar joint effusion. No acute fracture. Shoulder X-Ray 11/17/24 09:54 IMPRESSION: 1. Polyarticular osteoarthritis. Lumbar Spine X-Ray 11/17/24 09:55 IMPRESSION: 1. Mild lumbar spondylosis. Thoracic Spine X-Ray 11/17/24 09:57 IMPRESSION: 1. Mild thoracic spondylosis. Quality VTE Prophylaxis VTE prophylaxis: mechanical ordered and pharmacologic ordered -Patient's previous records reviewed on admission -ER notes reviewed in detail on admission -discussed all findings and current treatment plan with patient/Family/POA -Consultations reviewed for recommendations -Patient's disposition for safe discharge discussed with caser shoe parts Dictation performed by [employer] direct speech recognition software, therefore career consultant variants and typographical errors may occur. Hospitalist [facility] Advance Care Plan I have confirmed that the patient's Advanced Care Plan is present, code status i s documented, or surrogate decision maker is listed in patient medical record.: Yes Medication Reconciliation I have utilized all available resources to obtain, update and review the patients current medications (includes all prescriptions, OTC, herbals, cannabis, and nutritional supplements).: Yes The patient is not eligible for med reconciliation; the patient is in a emergent medical situation where delaying treatment would jeopardize the patients health.: No
[2024-11-19 16:21] VITALS: BP 90/56; PULSE 69; RESP 16; TEMP 36.9; O2SAT 91
[2024-11-19] MEDS: clonazePAM (*CRX) 0.5 MG TABLET 1 MG PO (21:24)
[2024-11-19] MEDS: PRIMIDONE 125 MG TABLET PO (21:24)
[2024-11-19] MEDS: SENNA/DOCUSATE SODIUM TABLET 1 TAB PO (21:24)
[2024-11-19 22:00] VITALS: BP 107/56; PULSE 63; RESP 18; TEMP 37; O2SAT 94
[2024-11-20] MEDS: HYDROcodone/acetaminophen (*CRX) 5-325 MG TABLET 1 TAB PO ×3 (01:48→14:05)
[2024-11-20 05:45] VITALS: BP 93/63; PULSE 52; RESP 20; TEMP 36.9; O2SAT 93
[2024-11-20 05:52] LABS: Hematocrit 34.3 % (37.0-47.0); Hemoglobin 10.8 g/dL (12.0-15.0); Mean Corpuscular HGB Conc 31.5 g/dl (32-36); Mean Corpuscular Hemoglobin 31.4 pg (26-34); Mean Corpuscular Volume 99.7 fl (80-100); Mean Platelet Volume 8.4 fl (7.4-10.4); Platelet Count Result 356 k/mm3 (150-375); Red Blood Count 3.44 M/mm3 (4.2-5.4); Red Cell Distribution Width 15.2 % (11.5-14.5); White Blood Count 5.7 K/mm3 (4.5-10.0)
[2024-11-20 06:06] LABS: Alanine Aminotransferase 8 U/L (6-35); Albumin Level 3.3 g/dL (3.5-5.1); Alkaline Phosphatase 79 U/L (38-126); Anion Gap -1 mmol/L (4-12); Aspartate Amino Transferase 22 U/L (14-36); Bilirubin,Total 0.4 mg/dL (0.2-1.3); Blood Urea Nitrogen 12 mg/dL (7-17); Calcium 9.3 mg/dL (8.4-10.2); Carbon Dioxide 34 mmol/L (22-30); Chloride 101 mmol/L (98-107); Estimated CRCL calculation 78 ml/min; Estimated Glomerular Filt Rate > 60; Glucose 100 mg/dL (65-110); Potassium 4.2 mmol/L (3.4-5.0); Sodium 134 mmol/L (137-145)
[2024-11-20 07:15] VITALS: PULSE 60; RESP 18; O2SAT 94
[2024-11-20] MEDS: FLUTICASONE/UMECLIDIN/VILANTER 200-62.5-25 MCG ELLIPTA 1 PUFF INHALATION ×2 (07:15)
[2024-11-20 08:00] VITALS: O2SAT 94
[2024-11-20] MEDS: ROSUVASTATIN 10 MG TABLET PO (08:56)
[2024-11-20] MEDS: PANTOPRAZOLE 40 MG TABLET PO (08:56)
[2024-11-20] MEDS: CITALOPRAM HYDROBROMIDE 20 MG TABLET PO (08:56)
[2024-11-20] MEDS: OMEGA 3 POLYUNSAT FATTY ACIDS 1 GM CAP PO ×2 (08:56→17:31)
[2024-11-20] MEDS: CARBIDOPA/LEVODOPA 25/100 MG TABLET 1 TABLET PO ×3 (08:56→17:31)
[2024-11-20] MEDS: MULTIVITAMINS THERAPEUTIC TAB (*BKC) 1 TABLET PO (08:56)
[2024-11-20] MEDS: PRAMIPEXOLE 0.5 MG TABLET 1.5 MG PO ×2 (08:56→17:31)
[2024-11-20] MEDS: ENOXAPARIN 40 MG/0.4 ML SYRINGE SUB-Q (08:57)
[2024-11-20 08:58] VITALS: PULSE 63
[2024-11-20] MEDS: PROPRANOLOL HCL 60 MG CAPSULE CR PO (08:58)
[2024-11-20] MEDS: polyethylene glycoL 3350 17 GM POWD.PACK PO (09:00)
--- NOTE | 2024-11-20 09:25 | P.PNIM_ITS ---
Progress Note: A&P Assessment and Plan (1) Fall from ground level: Code(s): W18.30XA - Fall on same level, unspecified, initial encounter Status: Acute Assessment and Plan: * thoracic and lumbar spine x-ray showing mild thoracic and lumbar spondylosis * shoulder x-ray showing polyarticular osteoarthritis * knee x-ray showing large joint effusion * PT and OT ordered (2) Effusion of right knee joint: Code(s): M25.461 - Effusion, right knee Status: Acute Assessment and Plan: * right knee x-ray showing large joint effusion * PT and OT ordered * orthopedic consult * continue pain medication as needed * Will need to wear knee brace, hold off on draining effusion for now 11/18 * Case management following for rehab needs * Ortho following * Continue PT and OT * Continue pain control * ice and elevate for swelling Continue with treatment pending placement to rehab (3) Right knee pain: Code(s): M25.561 - Pain in right knee Status: Acute Assessment and Plan: see above (4) Osteoarthritis of right knee: Qualifiers: Osteoarthritis type: primary Qualified Code(s): M17.11 - Unilateral primary osteoarthritis, right knee Code(s): M17.11 - Unilateral primary osteoarthritis, right knee Status: Acute Assessment and Plan: see above (5) Chronic obstructive pulmonary disease: Code(s): J44.9 - Chronic obstructive pulmonary disease, unspecified Status: Acute Assessment and Plan: * Christian reed * continue Flonase * continue with home oxygen 3 L nasal cannula * not appearing exacerbation (6) Generalized anxiety disorder: Code(s): F41.1 - Generalized anxiety disorder Status: Acute Assessment and Plan: * continue citalopram and Klonopin (7) Parkinson disease: Code(s): G20.A1 - Parkinson's disease without dyskinesia, without mention of fluctuations Status: Acute Assessment and Plan: * resume carbidopa levodopa (8) Constipation: Code(s): K59.00 - Constipation, unspecified Status: Acute Assessment and Plan: * Miralax daily * Lactulose q6hr until BM * Encourage hydration activity Plan Code status: Full code per patient DVT prophylaxis: Lovenox Stress ulcer prophylaxis: NA PT/OT notes: REHAB Disposition: Patient continues admission pending insurance authorization for continued rehabilitation for worsening right knee pain. patient appears stable and will discharge once insurance authorization is received. Time Spent With Patient Time with patient: 15 - 25 minutes Subjective Date/time seen: 11/20/24 09:25 Interval history: Patient is a 74 year old female admitted for worsening right knee pain secondary to degenerative arthritis with inability to ambulate due to pain. 11/20/24: Patient up in chair still with constipation currently just waiting on insurance authorization. Patient denies any chest pain, shortness a breath, nausea vomiting or dizziness. Patient reports pain is manageable this time physical therapy. Review of Systems Review of Systems: 12 systems were reviewed and are negativ e except for as per HPI. Exam Narrative: General: In no acute distress, well nourished Cardiac: Normal S1 and S2. Respiratory: Lungs clear to auscultation, no adventitious lung sounds, currently on 3L NC which is her baseline O2 requirement Gastrointestinal: soft, non-distended, non-tender, normoactive bowel sounds. : voiding without difficulty. Extremities: limited ROM of right knee with swelling--knee brace in place Neuro: Alert and oriented x4 Objective Data Vital Signs Vital Signs: Vital Signs - 24 hr 11/19/24 16:21 11/19/24 22:00 11/20/24 05:45 Temperature 98.4 F 98.6 F 98.4 F Pulse Rate 69 63 52 L Respiratory Rate 16 18 20 Blood Pressure 90/56 L 107/56 L 93/63 L Pulse Oximetry 91 94 93 Oxygen Delivery Oxygen Flow Rate 11/20/24 07:15 11/20/24 07:15 11/20/24 08:00 Temperature Pulse Rate 60 60 Respiratory Rate 18 18 Blood Pressure Pulse Oximetry 94 94 Oxygen Delivery Nasal Cannula Nasal Cannula Oxygen Flow Rate 3 3 11/20/24 08:58 Temperature Pulse Rate 63 Respiratory Rate Blood Pressure Pulse Oximetry Oxygen Delivery Oxygen Flow Rate Intake/Output Intake/Output: Intake & Output 11/17/24 11/18/24 11/19/24 11/20/24 23:59 23:59 23:59 23:59 Intake Total 1572 2770 870 650 Output Total 1450 600 350 750 Balance 122 2170 520 -100 Meds/Results Medications: Active Medications Generic Name Dose Route Start Last Admin Trade Name Freq PRN Reason Stop Dose Admin Acetaminophen 650 mg 11/16/24 16:30 Acetaminophen 325 Mg Tablet PO Q4H PRN Mild Pain (1-3) or Fever Hydrocodone Bitart/Acetaminophen 1 tab 11/16/24 16:30 11/20/24 06:36 Hydrocodone/Acetaminophen (*Crx) 5-325 Mg Tablet PO 1 tab Q4H PRN Administration Pain Rated 4-6 Albuterol/Ipratropium 3 ml 11/16/24 21:10 Ipratropium 0.5 Mg/Albuterol Sulfate 2.5 Mg Ampul.Neb 3 Ml INHALATION DAILY PRN shortness of breath or wheezing Carbidopa/Levodopa 1 tablet 11/16/24 21:15 11/20/24 08:56 Carbidopa/Levodopa 25/100 Mg Tablet PO 1 tablet TID GALINA Administration Citalopram Hydrobromide 20 mg 11/17/24 09:00 11/20/24 08:56 Citalopram Hydrobromide 20 Mg Tablet PO 20 mg DAILY GALINA Administration Clonazepam 1 mg 11/16/24 21:55 11/19/24 21:24 Clonazepam (*Crx) 0.5 Mg Tablet PO 1 mg QHS GALINA Administration Enoxaparin Sodium 40 mg 11/20/24 09:00 11/20/24 08:57 Enoxaparin 40 Mg/0.4 Ml Syringe SUB-Q 40 mg DAILY GALINA Administration Fish Oil 1 gm 11/16/24 21:20 11/20/24 08:56 [place] 3 Polyunsat Fatty Acids 1 Gm Cap PO 1 gm BID GALINA Administration Fluticasone/Umeclidinium/Vilanterol 1 puff 11/17/24 09:00 11/20/24 07:15 Fluticasone/Umeclidin/Vilanter 200-62.5-25 Mcg Ellipta INHALATION 1 puff DAILY GALINA Administration Multivitamins Therapeutic 1 tablet 11/17/24 09:00 11/20/24 08:56 Multivitamins Therapeutic Tab (*Bkc) PO 1 tablet DAILY GALINA Administration Pantoprazole Sodium 40 mg 11/17/24 09:00 11/20/24 08:56 Pantoprazole 40 Mg Tablet PO 40 mg QAM GALINA Administration Polyethylene Glycol 17 gm 11/19/24 10:58 11/20/24 09:00 Polyethylene Glycol 3350 17 Gm Powd.Pack PO 17 gm QAM PRN Administration Constipation Pramipexole Dihydrochloride 1.5 mg 11/16/24 21:20 11/20/24 08:56 Pramipexole 0.5 Mg Tablet PO 1.5 mg BID GALINA Administration Primidone 125 mg 11/16/24 21:20 11/19/24 21:24 Primidone 125 Mg Tablet PO 125 mg QHS GALINA Administration Propranolol HCl 60 mg 11/17/24 09:00 11/20/24 08:58 Propranolol Hcl 60 Mg Capsule Cr PO 60 mg DAILY GALINA Administration Rosuvastatin Calcium 10 mg 11/17/24 09:00 11/20/24 08:56 Rosuvastatin 10 Mg Tablet PO 10 mg DAILY GALINA Administration Senna/Docusate Sodium 1 tab 11/19/24 21:00 11/19/24 21:24 Senna/Docusate Sodium Tablet PO 1 tab HS GALINA Administration Radiology Results: ITS Impressions Knee X-Ray 11/16/24 14:37 IMPRESSION: Severe degenerative disease within large suprapatellar joint effusion. No acute fracture. Shoulder X-Ray 11/17/24 09:54 IMPRESSION: 1. Polyarticular osteoarthritis. Lumbar Spine X-Ray 11/17/24 09:55 IMPRESSION: 1. Mild lumbar spondylosis. Thoracic Spine X-Ray 11/17/24 09:57 IMPRESSION: 1. Mild thoracic spondylosis. Labs Labs: Laboratory Results - last 24 hr 11/20/24 05:25 WBC 5.7 RBC 3.44 L Hgb 10.8 L Hct 34.3 L MCV 99.7 MCH 31.4 MCHC 31.5 L RDW 15.2 H Plt Count 356 MPV 8.4 Sodium 134 L Potassium 4.2 Chloride 101 Carbon Dioxide 34 H Anion Gap -1 L BUN 12 Creatinine 0.60 L Estim Creat Clear Calc 78 Estimated GFR > 60 Glucose 100 Calcium 9.3 Total Bilirubin 0.4 AST 22 ALT 8 Alkaline Phosphatase 79 Total Protein 6.0 L Albumin 3.3 L Quality VTE Prophylaxis VTE prophylaxis: mechanical ordered and pharmacologic ordered -Patient's previous records reviewed on admission -ER notes reviewed in detail on admission -discussed all findings and current treatment plan with patient/Family/POA -Consultations reviewed for recommendations -Patient's disposition for safe discharge discussed with case specialist Dictation performed by [employer] [place] direct speech recognition software, therefore fixed wing pilot variants and typographical errors may occur. Hospitalist [facility] Advance Care Plan I have confirmed that the patient's Advanced Care Plan is present, code status is documented, or surrogate decision maker is listed in patient medical record.: Yes Medication Reconciliation I have utilized all available resources to obtain, update and review the patients current medications (includes all prescriptions, OTC, herbals, cannabis, and nutritional supplements).: Yes The patient is not eligible for med reconciliation; the patient is in a emergent medical situation where delaying treatment would jeopardize the patients health.: No
[2024-11-20 14:00] VITALS: BP 93/57; PULSE 64; RESP 18; TEMP 36.6; O2SAT 94
[2024-11-20] MEDS: LACTULOSE 20 GM/30 ML UDC PO ×2 (17:30→21:44)
[2024-11-20 21:27] VITALS: BP 133/74; PULSE 77; RESP 16; TEMP 36.5; O2SAT 93
[2024-11-20] MEDS: SENNA/DOCUSATE SODIUM TABLET 1 TAB PO (21:44)
[2024-11-20] MEDS: clonazePAM (*CRX) 0.5 MG TABLET 1 MG PO (21:44)
[2024-11-20] MEDS: PRIMIDONE 125 MG TABLET PO (21:44)
[2024-11-21] VITALS (7 sets, daily range): BP systolic 105–120; BP diastolic 64–74; PULSE 63–95; RESP 18; TEMP 36.2–36.6; O2SAT 93–96
[2024-11-21] MEDS: LACTULOSE 20 GM/30 ML UDC PO ×3 (04:41→17:40)
[2024-11-21] MEDS: HYDROcodone/acetaminophen (*CRX) 5-325 MG TABLET 1 TAB PO (04:49)
[2024-11-21] MEDS: FLUTICASONE/UMECLIDIN/VILANTER 200-62.5-25 MCG ELLIPTA 1 PUFF INHALATION ×2 (07:05→07:11)
[2024-11-21 07:33] LABS: Hematocrit 34.3 % (37.0-47.0); Mean Corpuscular HGB Conc 32.1 g/dl (32-36); Mean Corpuscular Hemoglobin 31.4 pg (26-34); Platelet Count Result 370 k/mm3 (150-375); Red Cell Distribution Width 15.2 % (11.5-14.5); White Blood Count 4.8 K/mm3 (4.5-10.0)
[2024-11-21 07:50] LABS: Alanine Aminotransferase 21 U/L (6-35); Albumin Level 3.6 g/dL (3.5-5.1); Alkaline Phosphatase 73 U/L (38-126); Anion Gap -2 mmol/L (4-12); Aspartate Amino Transferase 29 U/L (14-36); Bilirubin,Total 0.4 mg/dL (0.2-1.3); Blood Urea Nitrogen 9 mg/dL (7-17); Calcium 9.6 mg/dL (8.4-10.2); Carbon Dioxide 36 mmol/L (22-30); Chloride 101 mmol/L (98-107); Estimated CRCL calculation 92 ml/min; Estimated Glomerular Filt Rate > 60; Glucose 107 mg/dL (65-110); Potassium 4.2 mmol/L (3.4-5.0); Sodium 135 mmol/L (137-145)
[2024-11-21] MEDS: ENOXAPARIN 40 MG/0.4 ML SYRINGE SUB-Q (08:53)
[2024-11-21] MEDS: MULTIVITAMINS THERAPEUTIC TAB (*BKC) 1 TABLET PO (08:53)
[2024-11-21] MEDS: PRAMIPEXOLE 0.5 MG TABLET 1.5 MG PO ×2 (08:53→17:40)
[2024-11-21] MEDS: CITALOPRAM HYDROBROMIDE 20 MG TABLET PO (08:53)
[2024-11-21] MEDS: OMEGA 3 POLYUNSAT FATTY ACIDS 1 GM CAP PO ×2 (08:53→17:40)
[2024-11-21] MEDS: PANTOPRAZOLE 40 MG TABLET PO (08:53)
[2024-11-21] MEDS: CARBIDOPA/LEVODOPA 25/100 MG TABLET 1 TABLET PO ×3 (08:54→17:40)
[2024-11-21] MEDS: ROSUVASTATIN 10 MG TABLET PO (08:54)
[2024-11-21] MEDS: PROPRANOLOL HCL 60 MG CAPSULE CR PO (08:56)
--- NOTE | 2024-11-21 10:36 | P.PNIM_ITS ---
Progress Note: A&P Assessment and Plan (1) Fall from ground level: Code(s): W18.30XA - Fall on same level, unspecified, initial encounter Status: Acute Assessment and Plan: * thoracic and lumbar spine x-ray showing mild thoracic and lumbar spondylosis * shoulder x-ray showing polyarticular osteoarthritis * knee x-ray showing large joint effusion * PT and OT ordered (2) Effusion of right knee joint: Code(s): M25.461 - Effusion, right knee Status: Acute Assessment and Plan: * right knee x-ray showing large joint effusion * PT and OT ordered * orthopedic consult * continue pain medication as needed * Will need to wear knee brace, hold off on draining effusion for now 11/18 * Case management following for rehab needs * Ortho following * Continue PT and OT * Continue pain control * ice and elevate for swelling Continue with treatment pending placement to rehab (3) Right knee pain: Code(s): M25.561 - Pain in right knee Status: Acute Assessment and Plan: see above (4) Osteoarthritis of right knee: Qualifiers: Osteoarthritis type: primary Qualified Code(s): M17.11 - Unilateral primary osteoarthritis, right knee Code(s): M17.11 - Unilateral primary osteoarthritis, right knee Status: Acute Assessment and Plan: see above (5) Chronic obstructive pulmonary disease: Code(s): J44.9 - Chronic obstructive pulmonary disease, unspecified Status: Acute Assessment and Plan: * Christian reed * continue Flonase * continue with home oxygen 3 L nasal cannula * not appearing exacerbation (6) Generalized anxiety disorder: Code(s): F41.1 - Generalized anxiety disorder Status: Acute Assessment and Plan: * continue citalopram and Klonopin (7) Parkinson disease: Code(s): G20.A1 - Parkinson's disease without dyskinesia, without mention of fluctuations Status: Acute Assessment and Plan: * resume carbidopa levodopa (8) Constipation: Code(s): K59.00 - Constipation, unspecified Status: Acute Assessment and Plan: * Miralax daily * Lactulose q6hr until BM * Encourage hydration activity 11/21/2024 * Added fleet enema Plan Code status: Full code per patient DVT prophylaxis: Lovenox Stress ulcer prophylaxis: NA PT/OT notes: REHAB Disposition: Patient continues admission pending insurance authorization for continued rehabilitation for worsening right knee pain. patient appears stable and will discharge once insurance authorization is received. Time Spent With Patient Time with patient: 15 - 25 minutes Subjective Date/time seen: 11/21/24 10:36 Interval history: Patient is a 74 year old female admitted for worsening right knee pain secondary to degenerative arthritis with inability to ambulate due to pain. 11/21/24: Patient still with constipation reports no BM but is still having gas otherwise with no other complaints. waiting on rehab placement. Review of Systems Review of Systems: 12 systems were reviewed and are negativ e except for as per HPI. Exam Narrative: General: In no acute distress, well nourished Cardiac: Normal S1 and S2. Respiratory: Lungs clear to auscultation, no adventitious lung sounds, currently on 3L NC which is her baseline O2 requirement Gastrointestinal: soft, non-distended, non-tender, normoactive bowel sounds. : voiding without difficulty. Extremities: limited ROM of right knee with swelling--knee brace in place Neuro: Alert and oriented x4 Objective Data Vital Signs Vital Signs: Vital Signs - 24 hr 11/20/24 14:00 11/20/24 21:27 11/21/24 06:00 Temperature 97.9 F 97.7 F 97.9 F Pulse Rate 64 77 71 Respiratory Rate 18 16 18 Blood Pressure 93/57 L 133/74 120/74 Pulse Oximetry 94 93 93 Oxygen Delivery Oxygen Flow Rate 11/21/24 07:05 11/21/24 07:05 11/21/24 08:00 Temperature Pulse Rate 63 63 Respiratory Rate 18 18 Blood Pressure Pulse Oximetry 93 94 Oxygen Delivery Nasal Cannula Nasal Cannula Oxygen Flow Rate 3 3 11/21/24 08:56 Temperature Pulse Rate 69 Respiratory Rate Blood Pressure Pulse Oximetry Oxygen Delivery Oxygen Flow Rate Intake/Output Intake/Output: Intake & Output 11/18/24 11/19/24 11/20/24 11/21/24 23:59 23:59 23:59 23:59 Intake Total 2770 870 2220 740 Output Total 600 350 750 Balance 2170 520 1470 740 Meds/Results Medications: Active Medications Generic Name Dose Route Start Last Admin Trade Name Freq PRN Reason Stop Dose Admin Acetaminophen 650 mg 11/16/24 16:30 Acetaminophen 325 Mg Tablet PO Q4H PRN Mild Pain (1-3) or Fever Hydrocodone Bitart/Acetaminophen 1 tab 11/16/24 16:30 11/21/24 04:49 Hydrocodone/Acetaminophen (*Crx) 5-325 Mg Tablet PO 1 tab Q4H PRN Administration Pain Rated 4-6 Albuterol/Ipratropium 3 ml 11/16/24 21:10 Ipratropium 0.5 Mg/Albuterol Sulfate 2.5 Mg Ampul.Neb 3 Ml INHALATION DAILY PRN shortness of breath or wheezing Carbidopa/Levodopa 1 tablet 11/16/24 21:15 11/21/24 08:54 Carbidopa/Levodopa 25/100 Mg Tablet PO 1 tablet TID GALINA Administration Citalopram Hydrobromide 20 mg 11/17/24 09:00 11/21/24 08:53 Citalopram Hydrobromide 20 Mg Tablet PO 20 mg DAILY GALINA Administration Clonazepam 1 mg 11/16/24 21:55 11/20/24 21:44 Clonazepam (*Crx) 0.5 Mg Tablet PO 1 mg QHS GALINA Administration Enoxaparin Sodium 40 mg 11/20/24 09:00 11/21/24 08:53 Enoxaparin 40 Mg/0.4 Ml Syringe SUB-Q 40 mg DAILY GALINA Administration Fish Oil 1 gm 11/16/24 21:20 11/21/24 08:53 [place] 3 Polyunsat Fatty Acids 1 Gm Cap PO 1 gm BID GALINA Administration Fluticasone/Umeclidinium/Vilanterol 1 puff 11/17/24 09:00 11/21/24 07:11 Fluticasone/Umeclidin/Vilanter 200-62.5-25 Mcg Ellipta INHALATION 1 puff DAILY GALINA Administration Lactulose 20 gm 11/20/24 15:00 11/21/24 08:53 Lactulose 20 Gm/30 Ml Udc PO 20 gm Q6H GALINA Administration Multivitamins Therapeutic 1 tablet 11/17/24 09:00 11/21/24 08:53 Multivitamins Therapeutic Tab (*Bkc) PO 1 tablet DAILY GALINA Administration Pantoprazole Sodium 40 mg 11/17/24 09:00 11/21/24 08:53 Pantoprazole 40 Mg Tablet PO 40 mg QAM GALINA Administration Polyethylene Glycol 17 gm 11/19/24 10:58 11/20/24 09:00 Polyethylene Glycol 3350 17 Gm Powd.Pack PO 17 gm QAM PRN Administration Constipation Pramipexole Dihydrochloride 1.5 mg 11/16/24 21:20 11/21/24 08:53 Pramipexole 0.5 Mg Tablet PO 1.5 mg BID GALINA Administration Primidone 125 mg 11/16/24 21:20 11/20/24 21:44 Primidone 125 Mg Tablet PO 125 mg QHS GALINA Administration Propranolol HCl 60 mg 11/17/24 09:00 11/21/24 08:56 Propranolol Hcl 60 Mg Capsule Cr PO 60 mg DAILY GALINA Administration Rosuvastatin Calcium 10 mg 11/17/24 09:00 11/21/24 08:54 Rosuvastatin 10 Mg Tablet PO 10 mg DAILY GALINA Administration Senna/Docusate Sodium 1 tab 11/19/24 21:00 11/20/24 21:44 Senna/Docusate Sodium Tablet PO 1 tab HS GALINA Administration Radiology Results: ITS Impressions Knee X-Ray 11/16/24 14:37 IMPRESSION: Severe degenerative disease within large suprapatellar joint effusion. No acute fracture. Shoulder X-Ray 11/17/24 09:54 IMPRESSION: 1. Polyarticular osteoarthritis. Lumbar Spine X-Ray 11/17/24 09:55 IMPRESSION: 1. Mild lumbar spondylosis. Thoracic Spine X-Ray 11/17/24 09:57 IMPRESSION: 1. Mild thoracic spondylosis. Labs Labs: Laboratory Results - last 24 hr 11/21/24 07:04 WBC 4.8 RBC 3.50 L Hgb 11.0 L Hct 34.3 L MCV 98.0 MCH 31.4 MCHC 32.1 RDW 15.2 H Plt Count 370 MPV 8.0 Sodium 135 L Potassium 4.2 Chloride 101 Carbon Dioxide 36 H Anion Gap -2 L BUN 9 Creatinine 0.50 L Estim Creat Clear Calc 92 Estimated GFR > 60 Glucose 107 Calcium 9.6 Total Bilirubin 0.4 AST 29 ALT 21 Alkaline Phosphatase 73 Total Protein 7.0 Albumin 3.6 Quality VTE Prophylaxis VTE prophylaxis: mechanical ordered and pharmacologic ordered -Patient's previous records reviewed on admission -ER notes reviewed in detail on admission -discussed all findings and current treatment plan with patient/Family/POA -Consultations reviewed for recommendations -Patient's disposition for safe discharge discussed with supervisor case loading Dictation performed by [employer] direct speech recognition software, therefore flag decorator variants and typographical errors may occur. Hospitalist MIPS Advance Care Plan I have confirmed that the patient's Advanced Care Plan is present, code status is documented, or surrogate decision maker is listed in patient medical record.: Yes Medication Reconciliation I have utilized all available resources to obtain, update and review the patients current medications (includes all prescriptions, OTC, herbals, cannabis, and nutritional supplements).: Yes The patient is not eligible for med reconciliation; the patient is in a emergent medical situation where delaying treatment would jeopardize the patients health.: No
--- NOTE | 2024-11-21 15:29 | P.PNOP_ITS ---
Progress Note: A&P Assessment and Plan (1) Osteoarthritis of right knee: Qualifiers: Osteoarthritis type: primary Qualified Code(s): M17.11 - Unilateral primary osteoarthritis, right knee Code(s): M17.11 - Unilateral primary osteoarthritis, right knee Status: Acute (2) Effusion of right knee joint: Code(s): M25.461 - Effusion, right knee Status: Acute (3) Fall from ground level: Code(s): W18.30XA - Fall on same level, unspecified, initial encounter Status: Acute (4) Parkinson disease: Code(s): G20.A1 - Parkinson's disease without dyskinesia, without mention of fluctuations Status: Acute Plan Patient progressing well. Working with therapy. Pain improving. Walking with walker and knee brace. No other changes in care plan. Last injection did not help patient. Awaiting placement to SNF/Rehab. Acute right knee pain after a fall. Findings consistent with medial collateral ligament sprain and aggravation of pre-existing arthritis. No evidence of acute fracture or dislocation. Fall risk and deconditioning secondary to Parkinson's disease. Discussed the care plan with patient and her . She had a tertiary care center work-up this year by Neurology and Orthopedics. No surgery indicated. She may use a hinged brace that her will bring in from home. She is a good candidate for inpatient rehabilitation, with good potential for improvement in mobility and safety. Subjective Subjective Date/Time Seen: 11/21/24 15:29 Interval history: Doing well. Walking without issues. Wearing a knee brace. Using a walker. Complaining of constipation. Review of Systems Review of Systems: All systems reviewed & are unremarkable except as noted in HPI and below Exam Narrative: 74 y/o female. No acute distress. Wearin g O2 nasal canula. Tremor in her hand. Laying comfortably at the time of my visit. Shoulder with no swelling, joint effusion, or bruising. No erythema or warmth. Mild pain with motion. Full range of motion. Expected strength. Knee with moderate effusion. Wearing the knee brace. Slight MCL laxity. Diffuse pain. No redness or warmth. ACL and PCL intact. She does have some early signs of foot drop. Distal vascularly intact. No distal edema. Objective Data Vital Signs Vital Signs: Vital Signs - 24 hr 11/20/24 21:27 11/21/24 06:00 11/21/24 07:05 Temperature 97.7 F 97.9 F Pulse Rate 77 71 63 Respiratory Rate 16 18 18 Blood Pressure 133/74 120/74 Pulse Oximetry 93 93 93 Oxygen Delivery Nasal Cannula Oxygen Flow Rate 3 11/21/24 07:05 11/21/24 08:00 11/21/24 08:50 Temperature Pulse Rate 63 Respiratory Rate 18 Blood Pressure 105/67 Pulse Oximetry 94 Oxygen Delivery Nasal Cannula Oxygen Flow Rate 3 11/21/24 08:56 11/21/24 14:00 Temperature 97.8 F Pulse Rate 69 80 Respiratory Rate 18 Blood Pressure 107/64 Pulse Oximetry 96 Oxygen Delivery Oxygen Flow Rate Intake/Output Intake/Output: Intake & Output 11/18/24 11/19/24 11/20/24 11/21/24 23:59 23:59 23:59 23:59 Intake Total 2770 870 2220 980 Output Total 600 350 750 Balance 2170 520 1470 980 Meds/Results Medications: Active Medications Generic Name Dose Route Start Last Admin Trade Name Freq PRN Reason Stop Dose Admin Acetaminophen 650 mg 11/16/24 16:30 Acetaminophen 325 Mg Tablet PO Q4H PRN Mild Pain (1-3) or Fever Hydrocodone Bitart/Acetaminophen 1 tab 11/16/24 16:30 11/21/24 04:49 Hydrocodone/Acetaminophen (*Crx) 5-325 Mg Tablet PO 1 tab Q4H PRN Administration Pain Rated 4-6 Albuterol/Ipratropium 3 ml 11/16/24 21:10 Ipratropium 0.5 Mg/Albuterol Sulfate 2.5 Mg Ampul.Neb 3 Ml INHALATION DAILY PRN shortness of breath or wheezing Carbidopa/Levodopa 1 tablet 11/16/24 21:15 11/21/24 13:00 Carbidopa/Levodopa 25/100 Mg Tablet PO 1 tablet TID GALINA Administration Citalopram Hydrobromide 20 mg 11/17/24 09:00 11/21/24 08:53 Citalopram Hydrobromide 20 Mg Tablet PO 20 mg DAILY GALINA Administration Clonazepam 1 mg 11/16/24 21:55 11/20/24 21:44 Clonazepam (*Crx) 0.5 Mg Tablet PO 1 mg QHS GALINA Administration Enoxaparin Sodium 40 mg 11/20/24 09:00 11/21/24 08:53 Enoxaparin 40 Mg/0.4 Ml Syringe SUB-Q 40 mg DAILY GALINA Administration Fish Oil 1 gm 11/16/24 21:20 11/21/24 08:53 [place] 3 Polyunsat Fatty Acids 1 Gm Cap PO 1 gm BID GALINA Administration Fluticasone/Umeclidinium/Vilanterol 1 puff 11/17/24 09:00 11/21/24 07:11 Fluticasone/Umeclidin/Vilanter 200-62.5-25 Mcg Ellipta INHALATION 1 puff DAILY GALINA Administration Lactulose 20 gm 11/20/24 15:00 11/21/24 08:53 Lactulose 20 Gm/30 Ml Udc PO 20 gm Q6H GALINA Administration Multivitamins Therapeutic 1 tablet 11/17/24 09:00 11/21/24 08:53 Multivitamins Therapeutic Tab (*Bkc) PO 1 tablet DAILY GALINA Administration Pantoprazole Sodium 40 mg 11/17/24 09:00 11/21/24 08:53 Pantoprazole 40 Mg Tablet PO 40 mg QAM GALINA Administration Polyethylene Glycol 17 gm 11/19/24 10:58 11/20/24 09:00 Polyethylene Glycol 3350 17 Gm Powd.Pack PO 17 gm QAM PRN Administration Constipation Pramipexole Dihydrochloride 1.5 mg 11/16/24 21:20 11/21/24 08:53 Pramipexole 0.5 Mg Tablet PO 1.5 mg BID GALINA Administration Primidone 125 mg 11/16/24 21:20 11/20/24 21:44 Primidone 125 Mg Tablet PO 125 mg QHS GALINA Administration Propranolol HCl 60 mg 11/17/24 09:00 11/21/24 08:56 Propranolol Hcl 60 Mg Capsule Cr PO 60 mg DAILY GALINA Administration Rosuvastatin Calcium 10 mg 11/17/24 09:00 11/21/24 08:54 Rosuvastatin 10 Mg Tablet PO 10 mg DAILY GALIAN Administration Senna/Docusate Sodium 1 tab 11/19/24 21:00 11/20/24 21:44 Senna/Docusate Sodium Tablet PO 1 tab HS GALINA Administration Radiology Results: ITS Impressions Knee X-Ray 11/16/24 14:37 IMPRESSION: Severe degenerative disease within large suprapatellar joint effusion. No acute fracture. Shoulder X-Ray 11/17/24 09:54 IMPRESSION: 1. Polyarticular osteoarthritis. Lumbar Spine X-Ray 11/17/24 09:55 IMPRESSION: 1. Mild lumbar spondylosis. Thoracic Spine X-Ray 11/17/24 09:57 IMPRESSION: 1. Mild thoracic spondylosis. Labs Labs: Laboratory Results - last 24 hr 11/21/24 07:04 WBC 4.8 RBC 3.50 L Hgb 11.0 L Hct 34.3 L MCV 98.0 MCH 31.4 MCHC 32.1 RDW 15.2 H Plt Count 370 MPV 8.0 Sodium 135 L Potassium 4.2 Chloride 101 Carbon Dioxide 36 H Anion Gap -2 L BUN 9 Creatinine 0.50 L Estim Creat Clear Calc 92 Estimated GFR > 60 Glucose 107 Calcium 9.6 Total Bilirubin 0.4 AST 29 ALT 21 Alkaline Phosphatase 73 Total Protein 7.0 Albumin 3.6
[2024-11-21] MEDS: PRIMIDONE 125 MG TABLET PO (20:40)
[2024-11-21] MEDS: clonazePAM (*CRX) 0.5 MG TABLET 1 MG PO (20:40)
[2024-11-22 06:00] VITALS: BP 126/63; PULSE 85; RESP 16; TEMP 36.4; O2SAT 93
[2024-11-22 06:46] LABS: Hematocrit 34.4 % (37.0-47.0); Hemoglobin 10.8 g/dL (12.0-15.0); Mean Corpuscular HGB Conc 31.4 g/dl (32-36); Mean Corpuscular Hemoglobin 31.4 pg (26-34); Platelet Count Result 371 k/mm3 (150-375); Red Blood Count 3.44 M/mm3 (4.2-5.4); Red Cell Distribution Width 15.4 % (11.5-14.5); White Blood Count 5.9 K/mm3 (4.5-10.0)
[2024-11-22 07:33] VITALS: PULSE 68; RESP 20; O2SAT 90
[2024-11-22] MEDS: FLUTICASONE/UMECLIDIN/VILANTER 200-62.5-25 MCG ELLIPTA 1 PUFF INHALATION (07:33)
[2024-11-22 08:26] LABS: Alanine Aminotransferase 20 U/L (6-35); Albumin Level 3.6 g/dL (3.5-5.1); Alkaline Phosphatase 83 U/L (38-126); Anion Gap 0 mmol/L (4-12); Aspartate Amino Transferase 22 U/L (14-36); Bilirubin,Total 0.6 mg/dL (0.2-1.3); Blood Urea Nitrogen 7 mg/dL (7-17); Calcium 9.4 mg/dL (8.4-10.2); Carbon Dioxide 34 mmol/L (22-30); Chloride 100 mmol/L (98-107); Estimated CRCL calculation 92 ml/min; Estimated Glomerular Filt Rate > 60; Glucose 105 mg/dL (65-110); Potassium 3.9 mmol/L (3.4-5.0); Sodium 134 mmol/L (137-145)
[2024-11-22 08:39] VITALS: PULSE 92
[2024-11-22] MEDS: MULTIVITAMINS THERAPEUTIC TAB (*BKC) 1 TABLET PO (08:39)
[2024-11-22] MEDS: PRAMIPEXOLE 0.5 MG TABLET 1.5 MG PO (08:39)
[2024-11-22] MEDS: PROPRANOLOL HCL 60 MG CAPSULE CR PO (08:39)
[2024-11-22] MEDS: ENOXAPARIN 40 MG/0.4 ML SYRINGE SUB-Q (08:40)
[2024-11-22] MEDS: OMEGA 3 POLYUNSAT FATTY ACIDS 1 GM CAP PO (08:40)
[2024-11-22] MEDS: CITALOPRAM HYDROBROMIDE 20 MG TABLET PO (08:40)
[2024-11-22] MEDS: PANTOPRAZOLE 40 MG TABLET PO (08:40)
[2024-11-22] MEDS: CARBIDOPA/LEVODOPA 25/100 MG TABLET 1 TABLET PO ×2 (08:40→12:56)
[2024-11-22] MEDS: ROSUVASTATIN 10 MG TABLET PO (08:43)
[2024-11-22 09:09] VITALS: PULSE 80; RESP 20; O2SAT 91
[2024-11-22] MEDS: IPRATROPIUM 0.5 MG/ALBUTEROL SULFATE 2.5 MG AMPUL.NEB 3 ML INHALATION (09:09)
[2024-11-22 09:15] VITALS: PULSE 81; RESP 20
--- NOTE | 2024-11-22 13:19 | PCNWS ---
Weekly nutritional screen. Patient is tolerating current Regular diet with adequate intake, 75-100%. No weight loss reported. No nutritional needs at this time.
--- NOTE | 2024-11-22 13:47 | PC.NURSE ---
Message left on nurse's phone to give report. Will try again soon if I don't hear back.
[2024-11-22 14:00] VITALS: BP 112/65; PULSE 72; RESP 18; TEMP 36.4; O2SAT 95
[2024-11-22] MEDS: HYDROcodone/acetaminophen (*CRX) 5-325 MG TABLET 1 TAB PO (14:25)
--- NOTE | 2024-11-22 14:35 | PC.NURSE ---
Attempted to call report to Sheryl Singh again, but no answer. Will try again before the pt leaves. Packet from care coordination will be sent with pt with all pertinent information if unable to call report.
--- OUTSIDE RECORDS SUMMARY | 2024-11-23 15:00 | XMS_ITS | Continuity of Care Document ---
Author Organization [facility] Address [address] [place] [address] Care Team Providers Care Rounder Hand Name Role Phone Watson Perry Primary Care Physician Pamella Coker Unavailable Unavailable Encounter [facility] [id number] Date(s): 11/04/24 - 11/04/[address] [id number]- (0 [phone] - Discharge Disposition: Home or Self Care Allergies, Adverse Reactions, Alerts Substance Criticality Severity Reaction Reaction Severity Status ibuprofen Unable to assess criticality Unknown Active Assessment and Plan Future Appointments Appointment Date:02/02/2025 10:20:00 AM Scheduled Provider:Watson Perry MD Location:[facility] Appointment Type:Check Up (JERS) Immunizations Given and Recorded Vaccine Date Status Refusal Reason influenza virus vaccine, inactivated 08/01/23 Hermilo rded influenza virus vaccine, inactivated 09/15/22 Hermilo rded influenza virus vaccine, inactivated 08/08/21 Hermilo rded influenza virus vaccine, inactivated 08/24/20 Hermilo rded influenza virus vaccine, inactivated 09/01/19 Hermilo rded influenza virus vaccine, inactivated 09/16/18 Hermilo rded influenza virus vaccine, inactivated 09/20/17 Hermilo rded SARS-CoV-2 mRNA (tozinameran) vaccine 09/16/21 Rec orded SARS-CoV-2 mRNA (tozinameran) vaccine 08/17/21 Rec orded SARS-CoV-2 mRNA (tozinameran) vaccine 01/28/21 Rec orded SARS-CoV-2 mRNA (tozinameran) vaccine 2/3/21 Rec orded zoster vaccine, recombinant 11/07/19 Recorded zoster vaccine, recombinant 09/01/19 Recorded pneumococcal 23-polyvalent vaccine 10/27/19 Record ed tetanus/diphtheria/pertussis, acel(Tdap) 03/17/19 Recorded pneumococcal 13-valent conjugate vaccine 09/16/18 Recorded zoster vaccine live 09/20/17 Recorded Medications aspirin 81 mg oral delayed release tablet = 1 tab, Oral, BID, # 30 tab, 0 Refill(s) Start Date: 07/29/24 Status: Ordered Calcium and Zinc oral tablet 1 tab, Oral, Daily, 0 Refill(s) Start Date: 07/29/24 Status: Ordered carbidopa-levodopa 25 mg-100 mg oral tablet TAKE 1 TABLET BY MOUTH THREE TIMES DAILY 1/2 HOUR BEFORE EATING Start Date: 09/30/24 Status: Ordered citalopram 20 mg oral tablet See Instructions, Take 1 tablet by mouth once daily, # 90 tab, 1 Refill(s), Pharmacy: [facility] Start Date: 05/29/24 Status: Ordered clonazePAM 1 mg oral tablet = 1 tab, Oral, every day at bedtime, # 90 tab, 1 Refill(s), Pharmacy: [facility] Start Date: 07/15/24 Status: Ordered EC-Naprosyn 500 mg oral delayed release tablet = 2 tab, Oral, Daily, # 30 tab, 0 Refill(s), Pharmacy: [facility] Start Date: 07/31/24 Status: Ordered esomeprazole 20 mg oral delayed release capsule = 1 cap, Oral, Daily, # 90 cap, 1 Refill(s), Pharmacy: [facility] Start Date: 08/12/24 Status: Ordered Fish Oil 1000 mg oral capsule = 1 cap, Oral, BID, # 60 cap, 0 Refill(s) Start Date: 07/29/24 Status: Ordered furosemide 20 mg oral tablet = 0.5 tab, Oral, Daily, 0 Refill(s) Start Date: 07/28/24 Stop Date: 08/28/24 Status: Ordered pramipexole 1.5 mg oral tablet See Instructions, Take 1 tablet by mouth twice daily, # 180 tab, 1 Refill(s), Pharmacy: [facility] Start Date: 07/15/24 Status: Ordered primidone 250 mg oral tablet = 1 tab, Oral, Daily, 0 Refill(s) Start Date: 07/28/24 Stop Date: 08/28/24 Status: Ordered propranolol 60 mg oral capsule, extended release = 1 cap, Oral, BID, # 180 cap, 1 Refill(s), Pharmacy: [facility] Start Date: 07/17/24 Status: Ordered rosuvastatin 10 mg oral tablet See Instructions, TAKE 1 TABLET BY MOUTH AT BEDTIME, # 90 tab, 0 Refill(s), Pharmacy: [facility] Start Date: 11/04/24 Status: Ordered Trelegy Ellipta 200 mcg-62.5 mcg-25 mcg/inh inhalation powder 1 puffs, Inhale, Daily, at the same time every day rinse mouth well after every use, # 180 EA, 1 Refill(s), Pharmacy: [facility] Start Date: 06/12/24 Stop Date: 12/09/24 Status: Ordered Problem List Condition Confirmation Course Effective Dates Status Health Status Informant Actinic keratosis 1 Confirmed 01/15/18 Active Constipation - functional 2 Confirmed 03/20/16 Active Internal derangement of right knee Confirmed Active Disorder of muscle Confirmed 02/26/24 Active Gastroesophageal reflux disease without esophagitis 3 Confirmed 11/18/15 Active Generalized anxiety disorder 4 Confirmed 10/25/21 Active 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 Hypercholesterolemia 6 Confirmed 03/18/17 Active Localized, primary osteoarthritis of toe 7 Confirmed 04/15/20 Active Lung mass 8 Confirmed 12/30/14 Active Moderate chronic obstructive pulmonary disease 9 Confirmed 03/20/16 Active Nicotine dependence in remission 10 Confirmed 03/20/16 Active Opioid contract exists 11 Confirmed 09/30/24 Active Pain of right knee joint Confirmed 01/14/24 Active Persistent insomnia 12 Confirmed 11/18/15 Active Restless legs 13 Confirmed 09/05/12 Active Synovial cyst of knee Confirmed 02/26/24 Active 1Outside Source Comment: Note: Unchanged 2Outside Source Comment: Note: Unchanged 3Outside Source Comment: Note: Unchanged 4Outside Source Comment: Note: Unchanged 5Outside Source Comment: Note: Unchanged 6Outside Source Comment: Note: Unchanged 7Outside Source Comment: Note: Unchanged 8Outside Source Comment: Note: Unchanged 9Outside Source Comment: Note: Unchanged 10Outside Source Comment: Note: Unchanged 11Added secondary to current Opioid Treatment Agreement 12Outside Source Comment: Note: Unchanged 13Outside Source Comment: Note: Unchanged Procedures Procedure Date Related Diagnosis Body Site Status Hysterectomy Completed Knee Completed Social History Social History Type Response Smoking Status Former smoker, quit more than 30 days ago; Type: Cigarettes entered on: 07/28/24 Sex Female Sex Representation Female (finding) Patient Care team information Care Team Personnel Name: Watson Perry MD Position: Physician Member Role: Informed Provider Address: [address] [place] [address] Name: Pamella Coker LPN Position: Ambulatory - Outreach Nurse Member Role: Outreach Nurse Care Team Related Persons Name: JESSENIA LAKE Insurance Providers Guarantor name: LINDA Mathews [facility] Plan Information #: 1 Payer: Paula Member Number: NA Policy Number: NA
--- OUTSIDE RECORDS SUMMARY | 2024-11-23 15:01 | XMS_ITS | Clinical Summary ---
Author Organization [facility] Address [address] [place] [address] Phone Care Team Providers Care Pinmaker Name Role Phone LYLA COLEMAN MD Primary Care Provider [phone] Reason for Visit and Chief Complaint * PHONE CALL Problems Includes: Problems addressed during this encounter and other active Problems Current Visit Onset Date Resolved Date Provider Conditio n Status Joint Pain in the Right Knee 01/14/2024 ARTEMIO Bolanos Active Last Documented On 4 1:24PM ; [facility] Past Visits Onset Date Resolved Date Provider Condition Status Pain in the Right Foot 04/07/2024 KAITLIN ACOSTA DO Active Last Documented On 4 9:37AM ; [facility] Disorder of Muscle Weakness (Generalized) 02/26/2024 IDA COLLINS PLANT DIRECTOR-C Active Last Documented On 4 9:46AM ; [facility] Synovial Cyst of Popliteal Spaces Bilateral 02/26/2024 IDA MANCUSO FN P-C Active Last Documented On 4 4:13PM ; [facility] Generalized Anxiety Disorder 10/25/2021 LYLA COLEMAN MD Active Last Documented On 1 2:02AM ; [facility] Note: Unchanged Osteoarthritis Localized Eun jian Right 1st Mtp Joint 04/15/2020 LYLA COLEMAN MD Active Last Documented On 0 2:51PM ; [facility] Note: Unchanged Actinic Keratosis 01/15/2018 LYLA COLEMAN MD Active Last Documented On 8 11:45PM ; [facility] Note: Unchanged Hypercholesterolemia 03/18/2017 LYLA COLEMAN MD Active Last Documented On 7 11:11PM ; [facility] Note: Unchanged Constipation Functional 03/20/2016 LYLA FROST MD Active Last Documented On 6 12:02AM ; [facility] Note: Unchanged Chronic Obstructive Pulmonar y Disease Moderate 03/20/2016 LYLA COLEMAN MD Active Last Documented On 6 12:02AM ; [facility] Note: Unchanged Nicotine Dependence in Remission 03/20/2016 HOLLIS COLEMAN MD Active Last Documented On 6 12:02AM ; [facility] Note: Unchanged Esophageal Reflux Without Esophagitis 11/18/2015 LYLA COLEMAN MD Active Last Documented On 5 4:41PM ; [facility] Note: Unchanged Persistent Insomnia 11/18/2015 LYLA COLEMAN MD Active Last Documented On 5 4:41PM ; [facility] Note: Unchanged Familial (Benign Essential) Tremor 06/19/2013 T RIC COLEMAN MD Active Last Documented On 4 10:00AM ; [facility] Note: Unchanged Palpitations 09/05/2012 MARLYS VILLAGOMEZ MD Ac tive Last Documented On 2 10:21AM ; [facility] Note: Unchanged Restless Legs Syndrome 09/05/2012 MARLYS VILLAVICENCIO MD Active Last Documented On 2 10:21AM ; [facility] Note: Unchanged Plan of Treatment Pending Tests Order Diagnosis Results Due Ordering Pb jacobsen Lab A1C HGB (GLYCO HEMOGLOBIN) 10/06/23 LYLA COLEMAN MD Last Documented On 4 1:25PM ; [facility] Lab LIPID PANEL 10/06/23 LYLA GARG MD Last Documented On 4 1:25PM ; [facility] Lab CMP 10/06/23 LYLA Cowan MD Last Documented On 4 1:25PM ; [facility] Lab CBC WITH DIFF 10/06/23 LYLA SHAFFER MD Last Documented On 4 1:25PM ; [facility] Referrals To Diagnosis Orthopedic JENNIFER HESTER MD Pain in right knee Note: [facility] [place] Last Documented On 1:18PM ; [facility] Assessments Includes: Assessments from this encounter Findings - Right knee joint pain [M25.561 - Pain in right knee] - Last Documented On 04/21/2024 1:00PM ; [facility] Medical Equipment - Implanted Devices Includes: Current Devices No Medical Equipment Recorded Medications Includes: Medications discussed during this encounter and other current Medications Current Medications (continue as prescribed) Rosuvastatin Calcium 10 MG Oral Tablet 05/09/2024 Provider: LYLA COLEMAN MD Diagnosis: Pure hypercholes terolemia, unspecified TAKE 1 TABLET BY MOUTH AT BEDTIME Last Documented On 05/09/2024 1:18PM By HOLLIS COLEMAN MD ; [facility] traMADol HCl 50 MG Oral Tablet 03/19/2024 Provider: ARTEMIO Bolanos Diagnosis: Pain in right kn ee One tablet four times a day Last Documented On 1:25PM By Artemio Vincent PA-C ; [facility] Albuterol-Budesonide 90-80 MCG/ACT Inhalation Aerosol 02/26/2024 Provider: Diagnosis: 2 puffs every 6 hrs PRN Last Documented On 02/26/2024 4:12PM By Bartolo DEL ANGEL ; [facility] Bisacodyl 5 MG Oral Tablet Delayed Release 02/26/2024 Provider: Diagnosis: 2 tabs Once a day PRN Last Documented On 02/26/2024 4:12PM By Bartolo DEL ANGEL ; [facility] Esomeprazole Magnesium 20 MG Oral Capsule Delayed Release 02/15/2024 Provider: LYLA SHAFFER MD Diagnosis: Gastro-esophagea l reflux disease without esophagitis Take 1 capsule by mouth once daily Last Documented On 02/15/2024 12:20AM By HOLLIS COLEMAN MD ; [facility] Furosemide 20 MG Oral Tablet 02/01/2024 Provider: LYLA COLEMAN MD Diagnosis: Localized edema TAKE 1/2 (ONE-HALF) TABLET B Y MOUTH ONCE DAILY IN THE MORNING Last Documented On 02/01/2024 9:42AM By HOLLIS COLEMAN MD ; [facility] Propranolol HCl ER 60 MG Ora l Capsule Extended Release 24 Hour 01/22/2024 Provider: LYLA COLEMAN MD Diagnosis: Take 1 capsule by mouth twice daily Last Documented On 01/22/2024 9:02PM By HOLLIS COLEMAN MD ; [facility] clonazePAM 1 MG Oral Tablet 2024 Provider: LYLA COLEMAN MD Diagnosis: Insomnia, unspec ified TAKE 1 TABLET BY MOUTH AT BEDTIME Last Documented On 2024 10:26PM By HOLLIS COLEMAN MD ; [facility] Citalopram Hydrobromide 20 M G Oral Tablet 11/03/2023 Provider: LYLA COLEMAN MD Diagnosis: Adjustment disor iliana with anxiety Take 1 tablet by mouth once daily Last Documented On 11/03/2023 8:04PM By HOLLIS COLEMAN MD ; [facility] Trelegy Ellipta 200-62.5-25 MCG/ACT Inhalation Aerosol Powder Breath Activated 09/15/2022 Provider: LYLA COLEMAN MD Diagnosis: 1 puff qd Last Documented On 09/15/2022 9:30AM By Ivania Sanchez Joslyn ; [facility] Fish Oil 1000 MG Oral Capsule 09/17/2020 Provide r: Diagnosis: Last Documented On 09/17/2020 8:34AM By Pamella Coker LPN ; [facility] Primidone 250 MG Oral Tablet 03/17/2020 Provider: Diagnosis: Last Documented On 03/17/2020 8:28AM By Viviane Ford Joslyn ; [facility] Womens Multivitamin Plus OR TABS 05/24/2012 Provider : MARLYS VILLAGOMEZ MD Diagnosis: OTC Last Documented On 05/24/2012 11:10AM By Azucena Ramos LPN ; [facility] Past Medications on file predniSONE 10 MG Oral Tablet 03/10/2024 - 03/22/2024 Provider: LYLA COLEMAN MD Diagnosis: Synovial cyst of popliteal space [[place]], right knee as directed 6 tabs day 1-34 tabs day 4-62 tabs day 7-91 tab day 10-12then stop Last Documented On 03/10/2024 4:37PM By HOLLIS COLEMAN MD ; [facility] predniSONE 10 MG Oral Tablet 02/01/2024 - 02/11/2024 Provider: LYLA COLEMAN MD Diagnosis: Chronic obstruct kenna pulmonary disease, unspecified 6 TABS DAY 1-25 TABS DAY 3-4 4 TABS DAY 5-63 TABS DAY 7-82 TABS DAY 91 TAB DAY 10 THEN STOP Last Documented On 02/01/2024 9:42AM By HOLLIS COLEMAN MD ; [facility] Medications Administered Includes: Administered Medications from this encounter No Administered Medications Recorded Results Includes: Results discussed during this encounter No Results Recorded For Specified Dates History of Present Illness Includes: History of Present Illness from this encounter No History of Present Illness Recorded Social History No Social History Recorded - Smoking Status Unknown Medical History Includes: Medical History addressed during this encounter No Medical History Recorded Family History Includes: Family History addressed during this encounter No Family History Recorded Review of Systems Includes: Review of Systems from this encounter No Review of Systems Recorded Mental Status Includes: Mental Status from this encounter No Mental Status Recorded Functional Status Includes: Functional Status from this encounter No Functional Status Recorded Physical Exam Includes: Physical Exam from this encounter No Physical Exam Recorded Allergies Includes: Active Allergies Substance Type Reaction Onset Date Resolved Date Statu s Ibuprofen Allergy 03/21/2012 Active Last Documented On 4 8:47AM ; [facility] Encounters Encounter Provider Location Date Check-In Time Check-Out Time Diagnosis * PHONE CALL LYLA COLEMAN MD 4 11:29AM 11:59PM Assessment of Joint Pain in the Right Knee Insurance Includes: Active Insurance Policies Plan Name Member ID Group # Subscriber Relationship Effect kenna Dates 1 - [employer] [id number] [place] Self Clinical Notes Includes: Clinical Notes from this encounter * Progress note Date Encounter Last Documented by 04/21/2024 * PHONE CALL Last documented on 04/21/2024; 1:00 PM, LYLA COLEMAN MD; [facility] Active Problems & Conditions - Actinic Keratosis - Chronic Obstructive Pulmonary Disease Moderate - Constipation Functional - Disorder of Muscle Weakness (Generalized) - Esophageal Reflux Without Esophagitis - Familial (Benign Essential) Tremor - Generalized Anxiety Disorder - Hypercholesterolemia - Joint Pain in the Right Knee - Nicotine Dependence in Remission - Osteoarthritis Localized Primary Right 1st Mtp Joint - Pain in the Right Foot - Palpitations - Persistent Insomnia - Restless Legs Syndrome - Synovial Cyst of Popliteal Spaces Bilateral Chief Complaint Phone Call - Chief Concern: reason for call: Pt called and said they would like to go down to Dr. Hester at [facility] for orthopedic as they don't feel is taking care of the issue of her right leg pt phone # for return call: Date/Initials: 04/21 LG. Current Medication - Albuterol-Budesonide 90-80 MCG/ACT Inhalation Aerosol 2 puffs every 6 hrs PRN, 0 days, 0 refills - Bisacodyl 5 MG Oral Tablet Delayed Release 2 tabs Once a day PRN, 0 days, 0 refills - Citalopram Hydrobromide 20 MG Oral Tablet Take 1 tablet by mouth once daily, 90 days, 1 refills - clonazePAM 1 MG Oral Tablet TAKE 1 TABLET BY MOUTH AT BEDTIME, 90 days, 1 refills - [facility] Fish Oil 1000 MG Oral Capsule 0 days, 0 refills - Esomeprazole Magnesium 20 MG Oral Capsule Delayed Release Take 1 capsule by mouth once daily, 90 days, 1 refills - Furosemide 20 MG Oral Tablet TAKE 1/2 (ONE-HALF) TABLET BY MOUTH ONCE DAILY IN THE MORNING, 90 days, 1 refills - Primidone 250 MG Oral Tablet 0 days, 0 refills - Propranolol HCl ER 60 MG Oral Capsule Extended Release 24 Hour Take 1 capsule by mouth twice daily, 90 days, 1 refills - Rosuvastatin Calcium 10 MG Oral Tablet TAKE 1 TABLET BY MOUTH AT BEDTIME, 90 days, 1 refills - traMADol HCl 50 MG Oral Tablet One tablet four times a day, 10 days, 0 refills - Trelegy Ellipta 200-62.5-25 MCG/ACT Inhalation Aerosol Powder Breath Activated 1 puff qd, 30 days, 0 refills - Womens Multivitamin Plus Tablet 1 daily OTC, 0 days, 0 refills Allergies - Ibuprofen Assessment - Right knee joint pain [M25.561 - Pain in right knee] Plan StartCited - Other PHY ORDER/COMMENT REFERRAL IS IN PLACE EndCited StartCited - Pain in right knee Referral: Orthopedic Instructions: [place] OFFICE PLEASE EndCited
--- OUTSIDE RECORDS SUMMARY | 2024-11-23 15:01 | XMS_ITS | Clinical Summary ---
Author Organization [facility] Address [address] [place] [address] Phone Care Team Providers Care Regional Service Manager Name Role Phone LYLA COLEMAN MD Primary Care Provider Reason for Visit and Chief Complaint visit for: right foot pain, visit for: New Complaint, visit for: exam following treatment, Janeth is here today for her right knee pain. She has chronic pain. She uses a walker and ambulates with a shuffling gait. She is on permanent O2. She was given a cortical steroid injection on 01/25/24 by maynor Hernandez, but states it caused her to have excruciating pain for which she followed up in the ER for [facility]. She states she could not walk following this injection and that the ER had to drain her knee. She was then admitted for a week and then transferred to a longterm rehab. She does state that today her knee feels a little bit better. ~ ~Today she is stating that six months ago she started having right foot pain and pain trying to bend her toes up. This is a new complaint, visit for: Right Knee Pain - The Chief Complaint is: DISCUSS RT KNEE SCOPE FOR CHRONIC RT KNEE PAIN Problems Includes: Problems addressed during this encounter and other active Problems Current Visit Onset Date Resolved Date Provider [place] dye Status Pain in the Right Foot 04/07/2024 KAITLIN ACOSTA DO Active Last Documented On 4 9:37AM ; [facility] Joint Pain in the Right Knee 01/14/2024 ARTEMIO Bolanos Active Last Documented On 4 1:24PM ; [facility] History of Cancer, Nos 03/06/2013 LYLA GARG MD Inactive Last Documented On 4 9:56AM ; [facility] Note: Unchanged Reported Family History of Alcoholism 03/06/2013 LYLA COLEMAN MD Inactive Last Documented On 4 9:56AM ; [facility] Note: Unchanged Reported Family History of Cancer 03/06/2013 PARAS COLEMAN MD Inactive Last Documented On 4 9:56AM ; [facility] Note: Unchanged Past Visits Onset Date Resolved Date Provider Condition Status Disorder of Muscle Weakness (Generalized) 02/26/2024 IDA MANCUSO HAND BUTTON SPLITTER-C Active Last Documented On 4 9:46AM ; [facility] Synovial Cyst of Popliteal Spaces Bilateral 02/26/2024 IDA MANCUSO FN P-C Active Last Documented On 4 4:13PM ; [facility] Generalized Anxiety Disorder 10/25/2021 LYLA COLEMAN MD Active Last Documented On 1 2:02AM ; [facility] Note: Unchanged Osteoarthritis Localized Eun jian Right 1st Mtp Joint 04/15/2020 LYLA COLEMAN MD Active Last Documented On 0 2:51PM ; [facility] Note: Unchanged Actinic Keratosis 01/15/2018 LYLA COLEMAN MD Active Last Documented On 8 11:45PM ; [facility] Note: Unchanged Hypercholesterolemia 03/18/2017 LYLA COLEMAN MD Active Last Documented On 7 11:11PM ; [facility] Note: Unchanged Constipation Functional 03/20/2016 LYLA FROST MD Active Last Documented On 6 12:02AM ; [facility] Note: Unchanged Chronic Obstructive Pulmonar y Disease Moderate 03/20/2016 LYLA COLEMAN MD Active Last Documented On 6 12:02AM ; [facility] Note: Unchanged Nicotine Dependence in Remission 03/20/2016 HOLLIS COLEMAN MD Active Last Documented On 6 12:02AM ; [facility] Note: Unchanged Esophageal Reflux Without Esophagitis 11/18/2015 LYLA COLEMAN MD Active Last Documented On 5 4:41PM ; [facility] Note: Unchanged Persistent Insomnia 11/18/2015 LYLA COLEMAN MD Active Last Documented On 5 4:41PM ; [facility] Note: Unchanged Familial (Benign Essential) Tremor 06/19/2013 Guille COLEMAN MD Active Last Documented On 4 10:00AM ; [facility] Note: Unchanged Palpitations 09/05/2012 MARLYS VILLAGOMEZ MD Ac tive Last Documented On 2 10:21AM ; [facility] Note: Unchanged Restless Legs Syndrome 09/05/2012 MARLYS VILLAVICENCIO MD Active Last Documented On 2 10:21AM ; [facility] Note: Unchanged Plan of Treatment - Home exercises - Last Documented On 04/07/2024 9:39AM ; [facility] I discussed with Janeth that 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 I have also explained to her that a Moseley's cyst is a result of a problem and not a problem itself. I have questioned her as to the possibility of gout. She does state that gout runs in her family. She was placed on a Medrol Dosepak by Vicky Fleming and it did help her knee pain but not her foot pain. She does have several issues causing her difficultywith walking as well, including her knee pain, foot pain and tremors. I went over with Janeth that on today's examination I do not see a cause to pinpoint as to her knee effusion she has been having or to the effusion/swelling in her foot. As she states the knee pain is much better at this point following a Medrol dosepak she took a few weeks ago given by her PCP. I have informed her that if the knee flares up again with a joint effusion, to contact my office and we will aspirate the knee and send it out for labs, specifically checking for signs of gout. - Last Documented On 04/07/2024 9:39AM ; [facility] Instructions to patient Intervention and counseling on cessation of tobacco use Last Documented On 4 8:48AM ; [facility] Education and Decision Aids were provided during visit for: Patient education about orth opedic activities Last Documented On 4 9:18AM ; [facility] Assessments Includes: Assessments from this encounter Findings - [M17.9 - Osteoarthritis of knee, unspecified] Osteoarthritis of knee -right - Last Documented On 04/07/2024 9:39AM ; [facility] - [M17.11 - Unilateral primary osteoarthritis, right knee] Osteoarthritis of right knee - Last Documented On 04/07/2024 9:39AM ; [facility] - [M71.21 - Synovial cyst of popliteal space [Moseley], right knee] Synovial cyst of popliteal space -right - Last Documented On 04/07/2024 9:39AM ; [facility] - [M71.21 - Synovial cyst of popliteal space [Moseley], right knee] Synovial cyst of right popliteal space - Last Documented On 04/07/2024 9:39AM ; [facility] Instructions Includes: Instructions from this encounter Instructions to patient Intervention and counseling on cessation of tobacco use Last Documented On 4 8:48AM ; [facility] Education and Decision Aids were provided during visit for: Patient education about orth opedic activities Last Documented On 4 9:18AM ; [facility] Medical Equipment - Implanted Devices Includes: Current Devices No Medical Equipment Recorded Medications Includes: Medications discussed during this encounter and other current Medications Current Medications (continue as prescribed) Rosuvastatin Calcium 10 MG Oral Tablet 05/09/2024 Provider: LYLA COLEMAN MD Diagnosis: Pure hypercholes terolemia, unspecified TAKE 1 TABLET BY MOUTH AT BEDTIME Last Documented On 05/09/2024 1:18PM By HOLLIS COLEMAN MD ; [facility] traMADol HCl 50 MG Oral Tablet 03/19/2024 Provider: ARTEMIO Bolanos Diagnosis: Pain in right kn ee One tablet four times a day Last Documented On 4 1:25PM By Artemio Vincent PA-C ; [facility] Albuterol-Budesonide 90-80 MCG/ACT Inhalation Aerosol 02/26/2024 Provider: Diagnosis: 2 puffs every 6 hrs PRN Last Documented On 02/26/2024 4:12PM By Bartolo DEL ANGEL ; [facility] Bisacodyl 5 MG Oral Tablet Delayed Release 02/26/2024 Provider: Diagnosis: 2 tabs Once a day PRN Last Documented On 02/26/2024 4:12PM By Bartolo DEL ANGEL ; [facility] Esomeprazole Magnesium 20 MG Oral Capsule Delayed Release 02/15/2024 Provider: LYLA SHAFFER MD Diagnosis: Gastro-esophagea l reflux disease without esophagitis Take 1 capsule by mouth once daily Last Documented On 02/15/2024 12:20AM By HOLLIS COLEMAN MD ; [facility] Furosemide 20 MG Oral Tablet 02/01/2024 Provider: LYLA COLEMAN MD Diagnosis: Localized edema TAKE 1/2 (ONE-HALF) TABLET B Y MOUTH ONCE DAILY IN THE MORNING Last Documented On 02/01/2024 9:42AM By HOLLIS COLEMAN MD ; [facility] Propranolol HCl ER 60 MG Ora l Capsule Extended Release 24 Hour 01/22/2024 Provider: LYLA COLEMAN MD Diagnosis: Take 1 capsule by mouth twice daily Last Documented On 01/22/2024 9:02PM By HOLLIS COLEMAN MD ; [facility] clonazePAM 1 MG Oral Tablet 2024 Provider: LYLA COLEMAN MD Diagnosis: Insomnia, unspec ified TAKE 1 TABLET BY MOUTH AT BEDTIME Last Documented On 2024 10:26PM By HOLLIS COLEMAN MD ; [facility] Citalopram Hydrobromide 20 M G Oral Tablet 11/03/2023 Provider: LYLA COLEMAN MD Diagnosis: Adjustment disor iliana with anxiety Take 1 tablet by mouth once daily Last Documented On 11/03/2023 8:04PM By HOLLIS COLEMAN MD ; [facility] Trelegy Ellipta 200-62.5-25 MCG/ACT Inhalation Aerosol Powder Breath Activated 09/15/2022 Provider: LYLA COLEMAN MD Diagnosis: 1 puff qd Last Documented On 09/15/2022 9:30AM By Ivania DEL ANGEL ; [facility] Fish Oil 1000 MG Oral Capsule 09/17/2020 Provide r: Diagnosis: Last Documented On 09/17/2020 8:34AM By Pamella Coker LPN ; [facility] Primidone 250 MG Oral Tablet 03/17/2020 Provider: Diagnosis: Last Documented On 03/17/2020 8:28AM By Viviane DEL ANGEL ; [facility] Womens Multivitamin Plus OR TABS 05/24/2012 Provider : MARLYS VILLAGOMEZ MD Diagnosis: OTC Last Documented On 05/24/2012 11:10AM By Azucena Ramos LPN ; [facility] Past Medications on file predniSONE 10 MG Oral Tablet 03/10/2024 - 03/22/2024 Provider: LYLA COLEMAN MD Diagnosis: Synovial cyst of popliteal space [Moseley], right knee as directed 6 tabs day 1-34 tabs day 4-62 tabs day 7-91 tab day 10-12then stop Last Documented On 03/10/2024 4:37PM By HOLLIS COLEMAN MD ; [facility] predniSONE 10 MG Oral Tablet 02/01/2024 - 02/11/2024 Provider: LYLA COLEMAN MD Diagnosis: Chronic obstruct kenna pulmonary disease, unspecified 6 TABS DAY 1-25 TABS DAY 3-4 4 TABS DAY 5-63 TABS DAY 7-82 TABS DAY 91 TAB DAY 10 THEN STOP Last Documented On 02/01/2024 9:42AM By HOLLIS COLEMAN MD ; [facility] Medications Administered Includes: Administered Medications from this encounter No Administered Medications Recorded Vital Signs Includes: Vital Signs from this encounter Vital Name 04/07/2024 08:49A Blood Pressure Sitting (mmHg) 118/62 Height (in) 65 Last Documented: On 04/07/2024 8:49AM ; [facility] Results Includes: Results discussed during this encounter No Results Recorded For Specified Dates History of Present Illness Includes: History of Present Illness from this encounter DHEERAJ LAKE is a 74 year old female. - Allergy list reviewed - Medication list reviewed - Knee symptoms knee feels instable intermittently - Knee joint pain on the right in the medial aspect - In the lateral aspect - In the anterior region - In the patellofemoral region - Worse with weightbearing - Started gradually - Slowly worsens with extended activity - Is increased by bending it - With stairs - Knee joint swelling on the right - Knee joint stiffness on the right - Knee joint pain is not improved by walking aids Social History Description Last Updated Current smoker Quit 05/15/22. Smoker sinc e age 20 04/07/2024 Last Documented On 9:39AM ; [facility] Number of times used recreat ional drug/ prescription drug for nonmedical reason. 12/21/2023 Last Documented On 4 8:48AM ; [facility] Marital history Wilder 06/15/2022 Last Documented On 4 8:48AM ; [facility] Drinking in moderation (2 drinks/day or fewer) 03/24/2021 Last Documented On 4 8:48AM ; [facility] Sexually active 03/24/2021 Last Documented On 4 8:48AM ; [facility] Sexually active with 1 partners in the l ast year 03/24/2021 Last Documented On 4 8:48AM ; [facility] Smoking Status Unknown Procedures and Surgical History Includes: Procedures from this encounter Procedures Code Diagnosis Performing Provider Service Location Service Date CLINIC FACILITY FEE (Signi/Sep Eval & Man) [id number] Synovial cyst of popliteal space [Moseley], right knee KAITLIN ACOSTA DO [facility] 04/07/2024 Last Documented On 4 9:20AM ; [facility] Previously treated with Corticosteroid I njections-which didn't help Last Documented On 4 9:07AM ; [facility] review of prior records Last Documented On 4 9:18AM ; [facility] intervention and counseling on cessation of toba inside account 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 use 4000F Last Documented On 4 8:48AM ; [facility] use of tobacco assessment performed 1000F Last Documented On 4 8:48AM ; [facility] patient screened for future fall risk: documentation of any fall with injury in past year 1100F Last Documented On 4 8:48AM ; [facility] x-ray of foot was performed -right Last Documented On 4 9:19AM ; [facility] reviewed x-ray of foot -right Last Documented On 4 9:19AM ; [facility] reviewed an MRI of the right knee [id number] Last Documented On 4 9:06AM ; [facility] intrasubstance degeneration of the media l meniscus Last Documented On 4 9:06AM ; [facility] MRI of thr right knee is rev iewed. This shows a myxoid degeneration of the medial meniscus. There is a small Moseley's cyst noted. A small joint effusion is present. The ligaments are all intact. ~ ~I did obtain three views of the right foot in clinic today due to her complaints. ~ ~RADIOGRAPH READING: Radiographs of the right foot are obtained in three views today. These show evidence of a prior bunionectomy. There is very minimal osteoarthritis noted. No obvious abnormalities are seen Last Documented On 4 9:33AM ; [facility] Surgical History Last Updated History of dilation and curettage 12/2019 and 05/31/20 03/24/2021 Last Documented On 4 8:48AM ; [facility] Surgical / procedural history D&C x 2 Last Documented On 4 8:48AM ; [facility] Surgical / procedural history Basal cell carcinoma of Nose excised 05/24/2012 Last Documented On 4 8:48AM ; [facility] Medical History Includes: Medical History addressed during this encounter Description Last Updated Actinic Keratosis ~Chronic O bstructive Pulmonary Disease Moderate ~Closed Fracture of Neck of Femur Base Left ~Constipation Functional ~Disorder of Muscle Weakness (Generalized) ~Endometrial Intraepithelial Neoplasia ~Esophageal Reflux Without Esophagitis ~Exostosis of Jaw Torus Mandibularis ~Familial (Benign Essential) Tremor ~Generalized Anxiety Disorder ~Hypercholesterolemia ~Joint Pain in the Right Knee ~Nicotine Dependence in Remission on Chronic O2 ~Osteoarthritis Localized Primary Right 1st Mtp Joint ~Palpitations ~Persistent Insomnia ~Restless Legs Syndrome ~Synovial Cyst of Popliteal Spaces Bilateral 03/01/2024 Last Documented On 4 8:48AM ; [facility] Previous hospitalizations 02/26/2024 Last Documented On 4 8:48AM ; [facility] Vaccine history 02/01/2024 Last Documented On 4 8:48AM ; [facility] LMP: hysterectomy 03/29/2023 Last Documented On 4 8:48AM ; [facility] Vaginal delivery 03/24/2021 Last Documented On 4 8:48AM ; [facility] 3 10/27/2019 Last Documented On 4 8:48AM ; [facility] Para 3 10/27/2019 Last Documented On 4 8:48AM ; [facility] History of cancer 05/24/2012 Last Documented On 4 8:48AM ; [facility] Surgery P.A.T 1973 ~[facility] 11/200203/21/20 12 Last Documented On 4 8:48AM ; [facility] Family History Includes: Family History addressed during this encounter Description Last Updated heart disease PGF from heart at tack 03/24/2021 Last Documented On 4 8:48AM ; [facility] Family history of malignant female breas t neoplasm mom 03/24/2021 Last Documented On 4 8:48AM ; [facility] Maternal history of diabetes mellitus Last Documented On 4 8:48AM ; [facility] Paternal history of neurologic disorder PARKINSONS 02/10/2016 Last Documented On 4 8:48AM ; [facility] Family in poor health FATHER -PARKENSONS ~MOTHER -DIABETES 06/05/2014 Last Documented On 4 8:48AM ; [facility] Family history of alcoholism 05/24/2012 Last Documented On 4 8:48AM ; [facility] Family history of cancer 05/24/2012 Last Documented On 4 8:48AM ; [facility] Family history of diabetes mellitus 04/2012 Last Documented On 4 8:48AM ; [facility] Family history of heart disease 05/24/20 12 Last Documented On 4 8:48AM ; [facility] Review of Systems Includes: Review of Systems from this encounter Systemic: No recent weight change. Endocrine: No excessive sweating. Neurological: Ataxia. Psychological: Fear of falling. Past Medical: A fall in the past 6 months. A fall with injury. Mental Status Includes: Mental Status from this encounter Description Oriented to time, place, and person Functional Status Includes: Functional Status from this encounter Description Ambulation required a walker Physical Exam Includes: Physical Exam from this encounter Allergies Includes: Active Allergies Substance Type Reaction Onset Date Resolved Date Statu s Ibuprofen Allergy 03/21/2012 Active Last Documented On 4 8:47AM ; [facility] Encounters Encounter Provider Location Date Check-In Time Check-Out Time Diagnosis FOLLOW UP KAITLIN G KOTH [facility] 04/07/20 24 8:42AM 9:44AM Osteoarthritis Knee,Synovial Cyst of Popliteal Space,Osteoarthrit is Knee Right,Synovial Cyst of Popliteal Space Right Insurance Includes: Active Insurance Policies Plan Name Member ID Group # Subscriber Relationship Effect kenna Dates 1 - [employer] [id number] JANETH LAKE Self Clinical Notes Includes: Clinical Notes from this encounter * Progress note Date Encounter Last Documented by 04/07/2024 FOLLOW UP Last documented on 04/07/2024; 9:39 AM, Macrina DEL ANGEL; [facility] Active Problems & Conditions - L57.0 - Actinic Keratosis - J44.9 - Chronic Obstructive Pulmonary Disease Moderate - K59.00 - Constipation Functional - M62.81 - Disorder of Muscle Weakness (Generalized) - K21.9 - Esophageal Reflux Without Esophagitis - G25.0 - Familial (Benign Essential) Tremor - F41.1 - Generalized Anxiety Disorder - E78.00 - Hypercholesterolemia - M25.561 - Joint Pain in the Right Knee - F17.201 - Nicotine Dependence in Remission - M19.071 - Osteoarthritis Localized Primary Right 1st Mtp Joint - M79.671 - Pain in the Right Foot - R00.2 - Palpitations - G47.00 - Persistent Insomnia - G25.81 - Restless Legs Syndrome - Synovial Cyst of Popliteal Spaces Bilateral Chief Complaint The Chief Complaint is: DISCUSS RT KNEE SCOPE FOR CHRONIC RT KNEE PAIN. Reason For Visit Visit for: Right Knee Pain, visit for: New Complaint, and visit for: right foot pain. Visit for: exam following treatment. Janeth is here today for her right knee pain. She has chronic pain. She uses a walker and ambulates with a shuffling gait. She is on permanent O2. She was given a cortical steroid injection on 01/25/24 by David, my PA, but states it caused her to have excruciating pain for which she followed up in the ER for at [facility]. She states she could not walk following this injection and that the ER had to drain her knee. She was then admitted for a week and then transferred to a longterm rehab. She does state that today her knee feels a little bit better. Today she is stating that six months ago she started having right foot pain and pain trying to bend her toes up. This is a new complaint. History of Present Illness JANETH LAKE is a 74 year old female. - Allergy list reviewed - Medication list reviewed - Knee symptoms knee feels instable intermittently - Knee joint pain on the right in the medial aspect - In the lateral aspect - In the anterior region - In the patellofemoral region - Worse with weightbearing - Started gradually - Slowly worsens with extended activity - Is increased by bending it - With stairs - Knee joint swelling on the right - Knee joint stiffness on the right - Knee joint pain is not improved by walking aids Current Medication - Albuterol-Budesonide 90-80 MCG/ACT Inhalation [...] 1 daily OTC, 0 days, 0 refills Past Medical/Surgical History Reported: Surgery P.A.T [facility] 11/2002. LMP: hysterectomy. Medical: Previous hospitalizations. Vaccine history. Surgical / Procedural: Surgical / procedural history Basal cell carcinoma of Nose excised. Surgical / procedural history D&C x 2. : 3, para 3, and history of the : vaginal delivery. Diagnoses: Cancer Actinic Keratosis Chronic Obstructive Pulmonary Disease Moderate Closed Fracture of Neck of Femur Base Left Constipation Functional Disorder of Muscle Weakness (Generalized) Endometrial Intraepithelial Neoplasia Esophageal Reflux Without Esophagitis Exostosis of Jaw Torus Mandibularis Familial (Benign Essential) Tremor Generalized Anxiety Disorder Hypercholesterolemia Joint Pain in the Right Knee Nicotine Dependence in Remission on Chronic O2 Osteoarthritis Localized Primary Right 1st Mtp Joint Palpitations Persistent Insomnia Restless Legs Syndrome Synovial Cyst of Popliteal Spaces Bilateral. Surgical: - Dilation and curettage 12/2019 and 05/31/20 Previous Therapy Previously treated with Corticosteroid Injections-which didn't help. Social History Tobacco use: Current smoker Quit 05/15/22. Smoker since age 20. Alcohol: Drinking in moderation (2 drinks/day or fewer). Drug Use: Number of times used recreational drug/ prescription drug for nonmedical reason.. Marital: Marital history Wilder. Sexual: Sexually active with 1 partners in the last year. Allergies - Ibuprofen Family History Family in poor health FATHER -YAZAN MOTHER -DIABETES Cancer Alcoholism Heart disease Heart disease PGF from heart attack Diabetes mellitus Malignant female breast neoplasm mom Paternal: Neurologic disorder PARKINSONS Maternal: Diabetes mellitus Review Of Systems Systemic: No recent weight change. Endocrine: No excessive sweating. Neurological: Ataxia. Psychological: Fear of falling. Past Medical: A fall in the past 6 months. A fall with injury. Physical Findings - Vitals taken 04/07/2024 08:49 am BP-Sitting 118/62 mmHg Height 65 in General Appearance: - Well developed. - In no acute distress. Eyes: General/bilateral: - Eyes: normal. Musculoskeletal System: Knee: Right Knee: - Examined. - Localized swelling. - Medial aspect was tender on palpation. - Lateral aspect was tender on palpation. - Knee showed full range of motion but with pain. - Pain was elicited throughout the range of motion. Functional Exam: General/bilateral: - Ambulation required a walker. Neurological: - Oriented to time, place, and person. Motor (Strength): - No weakness of the right knee was observed. Gait And Stance: - Abnormal. - A right-sided antalgic gait was observed. Tests Imaging: X-Ray Ankle: Reviewed x-ray of foot -right. X-ray of foot was performed -right. MRI Pelvis: Intrasubstance degeneration of the medial meniscus. Reviewed an MRI of the right knee. MRI of thr right knee is reviewed. This shows a myxoid degeneration of the medial meniscus. There is a small Moseley's cyst noted. A small joint effusion is present. The ligaments are all intact. I did obtain three views of the right foot in clinic today due to her complaints. RADIOGRAPH READING: Radiographs of the right foot are obtained in three views today. These show evidence of a prior bunionectomy. There is very minimal osteoarthritis noted. No obvious abnormalities are seen. Assessment - [M17.9 - Osteoarthritis of knee, unspecified] Osteoarthritis of knee -right - [M17.11 - Unilateral primary osteoarthritis, right knee] Osteoarthritis of right knee - [M71.21 - Synovial cyst of popliteal space [Moseley], right knee] Synovial cyst of popliteal space -right - [M71.21 - Synovial cyst of popliteal space [Moseley], right knee] Synovial cyst of right popliteal space Therapy - Review of prior records. - Intervention and counseling on cessation of tobacco use. Counseling/Education - Patient education about orthopedic activities Discussed - Discussion of orthopedic goals; - Discussion of orthopedic options: Plan StartCited - Pain in right foot X-ray/IN OFFICE XRAYS: Foot, Complete Instructions: RT FOOT EndCited - Home exercises I discussed with Janeth that 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 I have also explained to her that a Moseley's cyst is a result of a problem and not a problem itself. I have questioned her as to the possibility of gout. She does state that gout runs in her family. She was placed on a Medrol Dosepak by Vicky Fleming and it did help her knee pain but not her foot pain. She does have several issues causing her difficultywith walking as well, including her knee pain, foot pain and tremors. I went over with Janeth that on today's examination I do not see a cause to pinpoint as to her knee effusion she has been having or to the effusion/swelling in her foot. As she states the knee pain is much better at this point following a Medrol dosepak she took a few weeks ago given by her PCP. I have informed her that if the knee flares up again with a joint effusion, to contact my office and we will aspirate the knee and send it out for labs, specifically checking for signs of gout. Notes Majority of visit was spent in counseling regarding diagnosis & treatment options. Practice Management Use of tobacco assessment performed and patient screened for future fall risk documentation of any fall with injury in past year. Health Reminders - Assess Screening for Fall Risk satisfied 04/07/2024. - Assess Tobacco Use satisfied 04/07/2024. - Smoking & Tobacco Cessation Intervention and Counseling satisfied 04/07/2024.
--- OUTSIDE RECORDS SUMMARY | 2024-11-23 15:01 | XMS_ITS ---
Care Plan - [facility] Created on: November 23, 2024 [place] : 1950 Sex: Female Author Organization [facility] Address [address] [place] [address] Phone Care Team Providers Care Funder Name Role Phone VIR[place]IA AGARWAL, LYLA Ruiz Primary Care Provider [phone]
--- OUTSIDE RECORDS SUMMARY | 2024-11-23 15:02 | XMS_ITS | Patient Health Summary ---
Author Organization [facility] Address [address] [place] [address] Care Team Providers Care Tape Recording Machine Operator Name Role Phone Watson Perry MD Primary Care Provider [phone] [facility],non-owned Affiliates and Associated Physician Practices is amultiple site organization consisting of ambulatory clinics and hospital sitesin [place], [place], [place] and [place]. This disclosure is being madepursuant to the Care Everywhere program and may not contain all information available regarding this patient. Last updated 18.[facility] Allergies * Ibuprofen Micronized(Rash) -Medium Criticality Medications * Be aware that medications may not be up to date on this document. Alwaysverify current medications with the patient. * propranolol CR 24hr (INDERAL LA) 60 MG capsule Take 1 (one) capsule by mouth once daily * clonazePAM (KLONOPIN) 1 MG tablet Take 1 (one) tablet by mouth at bedtime * pramipexole (MIRAPAX) 0.5 MG tablet Take 1 (one) tablet by mouth at bedtime * multivitamin daily (THERAGRAN) tablet Take 1 (one) tablet by mouth daily with food * citalopram (CELEXA) 20 MG tablet Take 1 (one) tablet by mouth once daily * esomeprazole (NEXIUM) 20 MG capsule Take 1 (one) capsule by mouth once daily * rosuvastatin (CRESTOR) 10 MG tablet(Started 11/09/2019) Take 1 (one) tablet by mouth at bedtime * [place]-3 Fatty Acids (FISH OIL PO) Take 1,000 mg by mouth 3 times daily * Calcium Carb-Cholecalciferol (CALCIUM 600 + D PO) Take by mouth 2 times daily * acetaminophen (TYLENOL) 500 MG tablet(Started 12/15/2019) Take 1 tablet by mouth every 4 hours as needed for Pain Maximum allowable Acetaminophen amount = 4 Grams (4000 mg) / 24 hours. * gabapentin (NEURONTIN) 300 MG capsule(Started 12/01/2020) Take 1 (one) capsule by mouth 2 times daily * senna (SENOKOT) 8.6 MG tablet(Started 06/01/2021) Take 2 (two) tablets by mouth once daily * Trelegy Ellipta 200-62.5-25 MCG/ACT inhaler(Started 04/16/2024) Inhale 1 (one) puff by mouth once daily * furosemide (Lasix) 20 MG tablet Take 0.5 (one-half) tablet by mouth once daily * primidone (Mysoline) 250 MG tablet(Started 12/15/2022) Take 1 (one) tablet by mouth once daily Active Problems Problem Noted Date Diagnosed Date Carcinoma 05/11/2010 Social History Tobacco Use Types Packs/Day Years Used Date Smoking Tobacco: Every Day Cigarettes 0.3 40 Smokeless Tobacco: Never Tobacco Cessation:Ready to Q uit: Yes; Counseling Given: Yes Comments: 5-6 cigarettes per day Alcohol Use Standard Drinks/Week Comments No 0 (1 standard drink = 0.6 oz pur e alcohol) AUDIT-C Answer Date Recorded Frequency of Alcohol Consumption Never 12/11/2019 Average Number of Drinks Not on file 020 Frequency of Binge Drinking Never 11/20 Sex and Gender Information Value Date Recorded Sex Assigned at Not on file Gender Identity Not on file Sexual Orientation Not on file Last Filed Vital Signs Vital Sign Reading Time Taken Comments Blood Pressure 117/70 04/16/2024 2:05 PM CDT Pulse 69 04/16/2024 2:05 PM CDT Temperature 36.2 ??C (97.2 ??F) 06/01/2021 3:19 PM CD T Respiratory Rate 16 06/01/2021 3:19 PM CDT Oxygen Saturation 93% 04/16/2024 2:05 PM CDT Inhaled Oxygen Concentration - - Weight 80.3 kg (177 lb) 04/16/2024 2:05 PM CDT Height 165.1 cm (5' 5 ) 04/16/2024 2:05 PM CDT Body Mass Index 29.45 04/16/2024 2:05 PM CDT Procedures * NM BRAIN IMAGING KIZZY SCAN(Performed 05/15/2024) Performed for Idiopathic Parkinson's disease * CARDIAC RHYTHM STRIP ORDER(Performed 06/03/2021) * BLOOD GASES ARTERIAL(Performed 06/01/2021) Performed for Chronic obstructive pulmonary disease, unspecified COPD type (HCC) * PATHOLOGY TISSUE EXAM (STL)(Performed 06/01/2021) Performed for Diagnosis unknown * BLOOD TYPE VERIFICATION(Performed 06/01/2021) * ENDOTRACHEAL TUBE NOTE(Performed 06/01/2021) * LAPAROSCOPIC TOTAL HYSTERECTOMY (TLH)(Performed 06/01/2021) Performed for Diagnosis unknown * TYPE + SCREEN PANEL(Performed 06/01/2021) Performed for Preoperative examination * COMPREHENSIVE METABOLIC PANEL(Performed 06/01/2021) Performed for Preoperative examination * CBC W AUTO DIFFERENTIAL(Performed 06/01/2021) Performed for Preoperative examination * CARDIAC RHYTHM STRIP ORDER(Performed 06/03/2020) * PATHOLOGY TISSUE EXAM (STL)(Performed 05/31/2020) Performed for Diagnosis unknown * NV HYSTEROSCOPY,W/ENDO BX(Performed 05/31/2020) Performed for Diagnosis unknown * IMAGING/RADIOLOGY/XRAY RESULTS ORDER(Performed 05/14/2020) * NV SONO EXAM, TRANSVAGINAL(Performed 05/13/2020) Performed for Simple endometrial hyperplasia, Postmenopausal bleeding * MAMMOGRAM(Performed 01/19/2020) * PET CT SKULL TO MID THIGH(Performed 12/30/2019) Performed for Thickened endometrium, Postmenopausal bleeding, Retroperitoneal lymphadenopathy, Mesenteric lymphadenopathy * IMAGING/RADIOLOGY/XRAY RESULTS ORDER(Performed 12/18/2019) * CARDIAC RHYTHM STRIP ORDER(Performed 12/17/2019) * PATHOLOGY TISSUE EXAM (STL)(Performed 12/15/2019) Performed for Diagnosis unknown * NV HYSTEROSCOPY,W/ENDO BX(Performed 12/15/2019) Performed for Diagnosis unknown * DERMATOPATHOLOGY(Performed 03/14/2013) * PATHOLOGY/GENETICS HISTORICAL-ONBASE(Performed 01/30/2011) * PATHOLOGY/GENETICS HISTORICAL-ONBASE(Performed 01/30/2011) * PATHOLOGY/GENETICS HISTORICAL-ONBASE(Performed 01/30/2011) * PATHOLOGY/GENETICS HISTORICAL-ONBASE(Performed 01/30/2011) * CARDIAC EKG ORDER(Performed 05/25/2010) * LAB RESULTS ORDER(Performed 05/25/2010) * CARDIAC RHYTHM STRIP ORDER(Performed 05/25/2010) * PT PTT PANEL(Performed 05/11/2010) * BASIC METABOLIC PANEL (CALCIUM TOTAL)(Performed 05/11/2010) * CBC W AUTO DIFFERENTIAL(Performed 05/11/2010) * EKG 12-LEAD(Performed 05/11/2010) Performed for Carcinoma (Hcc) Results * NM BRAIN IMAGING KIZZY SCAN (05/15/2024 1:15 PM CDT) Anatomical Region Laterality Modality Head Nuclear Medicine 05/15/2024 12:2 5 PM CDT Impressions 05/15/2024 2:24 PM CDT Impression: Abnormal DaTscan study, worse on the left compared to the right, findings supportive of parkinsonian syndromes. > Dictated by Waqas Garcia MD (Track Welder) 05/15/2024 12:25 PM Adri Mcclure DO have personally reviewed and interpreted this examination/study. > Interpreting Provider: Adri Van DO on 05/15/2024 2:24 PM Narrative 05/15/2024 2:24 PM CDT PROCEDURE: ??NM BRAIN IMAGING KIZZY SCAN, DATE/TIME OF EXAM: ??05/15/2024 9:45 AM, LOCATION ??[facility] INDICATION: G20.A1: Idiopathic Parkinson's disease COMPARISON: None. Procedure: Dopamine transporter (DaTscan) brain SPECT/CT History: 74 female with known history of essential tremors since she was 57, to rule out parkinsonism Technique: 45 minutes after oral administration of SSKI for thyroid blockade, 5.4Ci I-123 Ioflupane was administered intravenously in the left antecubital fossa. Three hours later, tomographic whole brain SPECT/CT imaging was performed. Patient's BMI is 29.45m??. Low-dose noncontrast CT for attenuation correction was performed. Findings: ??No prior study is available for comparison. Uptake in the striatum appears as follows: Left caudate nucleus head: Mild reduced Right caudate nucleus head: Normal Left putamen: Moderately reduced Right putamen: Normal Procedure Note Adri Van DO - 05/15/2024 PROCEDURE: NM BRAIN IMAGING KIZZY SCAN, DATE/TIME OF EXAM: 49:45 AM, LOCATION [facility] INDICATION: G20.A1: Idiopathic Parkinson's disease COMPARISON: None. Procedure: Dopamine transporter (DaTscan) brain SPECT/CT History: 74 female with known history of essential tremors since she was 57, to rule out parkinsonism Technique: 45 minutes after oral administration of SSKI for thyroid blockade, 5.4Ci I-123 Ioflupane was administered intravenously in theleft antecubital fossa. Three hours later, tomographic whole brain SPECT/CT imaging was performed. Patient's BMI is 29.45m??. Low-dose noncontrast CT for attenuation correction was performed. Findings: No prior study is available for comparison. Uptake in the striatum appears as follows: Left caudate nucleus head: Mild reduced Right caudate nucleus head: Normal Left putamen: Moderately reduced Right putamen: Normal Impression: Abnormal DaTscan study, worse on the left compared to the right,findings supportive of parkinsonian syndromes. > Dictated by Waqas Garcia MD (Track Welder) 05/15/2024 12:25 PM Adri Mcclure DO have personally reviewed and interpreted this examination/study. > Interpreting Provider: Adri Van DO on 05/15/2024 2:24 PM Kody Jones MD NM ORDERABLES * CARDIAC RHYTHM STRIP ORDER (06/03/2021 11:23 AM CDT) Only the most recent of4 resultswithin the time period is included. Narrative 06/03/2021 11:23 AM CDT Ordered by an unspecified provider. Scanned Document CARDIAC SERVICES ORD ERABLES * (ABNORMAL) BLOOD GASES ARTERIAL (06/01/2021 1:06 PM CDT) pH Arterial 7.31(L) 7.35 - 7.45 pH 06/01/2021 1:33 PM CDT [facility] Comment:L pCO2 Arterial 64(H) 35 - 45 mm hg 06/01/2021 1:33 PM CDT [facility] Comment:H pO2 Arterial 77(L) 80 - 100 mm hg 06/01/2021 1:33 PM CDT [facility] Comment:L HCO3 Arterial 31(H) 22 - 26 mmol/L 06/01/2021 1:33 PM CDT [facility] Comment:H BE Arterial 2.5(H) -2.0 - 2.0 mmol/L 06/01/2021 1:33 PM CDT [facility] Comment:H O2 Saturation Arterial 94 90 - 100 % 06/01/2021 1:33 PM CDT [facility] Hemoglobin Arterial 15.6 12.0 - 15.6 gm/dL 06/01/2021 1:33 PM CDT [facility] Carboxyhemoglobin Arterial 3.1(H) 0.0 - 2.5 % 06/01/2021 1:33 PM CDT [facility] Comment:H Methemoglobin Arterial 0.5 0.0 - 2.0 % 06/01/2021 1:33 PM CDT [facility] Oxyhemoglobin Arterial 90 % 06/01/2021 1:33 PM CDT [facility] Mode SIMV/PS 06/01/2021 1:33 PM CDT [facility] Leandro's Test Positive 06/01/2021 1:33 PM CDT [facility] FI O2 30 % 06/01/2021 1:33 PM CDT [facility] Tidal Volume 400 mL 06/01/2021 1:33 PM CDT [facility] PEEP (cmH2O) 5.0 06/01/2021 1:33 PM CDT [facility] Pressure Support (cmH2O) 5 06/01/2021 1:33 PM CDT [facility] Respiratory Rate 10.0 06/01/20 1:33 PM CDT [facility] Sample Site L Radial 06/01/2021 1:33 PM CDT [facility] Sample Type Arterial 06/01/2021 1:33 PM CDT [facility] [place] [id number] 06/01/2021 1:33 PM CDT [facility] Blood, arterial ARTERIAL BLOOD SPECIMEN / Unknown 06/01/2021 1:06 PM CDT 06/01/2021 1:06 PM CDT Ahsan Sung MD LAB - BLOOD GASES ORDERABLES [facility] [address] [phone] * PATHOLOGY TISSUE EXAM (STL) (06/01/2021 11:12 AM CDT) Only the most recent of3 resultswithin the time period is included. Case Report Surgical Pathology Report ? Case: [id number] ? Authorizing Provider: ??Kelley Sanford MD ?Collected: ? 06/01/2021 11:12 AM ? Ordering Location: ? [facility] ? Received: ?06/01/2021 11:16 AM ? Pathologist: ? Devan Palacios MD ? Specimen: ?Uterus w Cervix, uterus,cervix, bilateral tubes and ovaries ? 06/06/2021 8:39 AM CDT [facility] Final Diagnosis Cervix uteri: No significant histopathologic changes. 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 Adenomyosis. Leiomyoma. Fallopian tube right: Benign paratubal cyst. Ovary, right: Fibroma Hilar nodule. Fallopian tube, left: Benign paratubal cyst. Ovary, left: Hilar nodule. 06/06/2021 8:39 AM CDT [facility] Gross Description The requisition and specimen are identified with patient's name and date of . Received fresh for frozen, specimen A, uterus, cervix, bilate +, is 168 g uterus with attached cervix and bilateral tubes and ovaries. The serosa is purple-church and diffusely congested. Ectocervix is 3 x 3 cm with the central patent os, 1.2 cm. The endocervix is purple-church and regulated and sectioning shows multiple nabothian cysts, 0.1-0.6 cm in diameter. The endometrial cavity is 5 x 4 cm and is lined by church to purple-church, irregular mucosa with a thickness of up to 0.2 cm. The myometrium is up to 2.6 cm thick at the fundus and sectioning shows diffusely trabeculated cut surfaces, with white-church, firm, whorled myometrial mass, 0.4 x 0.4 x 0.4 cm. An area of purple-church discoloration is present at the myometrium measuring 1.5 x 1 x 1 cm. The right ovary is 2.2 x 1.5 x 0.9 cm with church, wrinkled surface. Sectioning shows a church to white-church, nodular area measuring 0.4 x 0.3 x 0.3 cm. The remaining cut surfaces are yellow-church and otherwise unremarkable. The right fallopian tube is 6.5 cm long and 0.4-0.6 cm in diameter with multiple paratubal cysts, 0.1-0.8cm in greatest dimension. Sectioning shows unremarkable cut surfaces. The left ovary is 3 x 1.7 x 1.3 cm. The surface is church, smooth and sectioning shows a patent central brown-church, nodular area measuring 1.5 x 0.7 x 1.5 cm. The remaining cut surfaces are church, solid and otherwise unremarkable. The left fallopian tube is 6.7 cm long and up to 0.5 cm in diameter. The serosa is purple-church, congested with multiple paratubal cysts, 0.1 to 0.4 cm in diameter. Sectioning shows unremarkable cut surfaces. Plater Supervisor sections submitted as follows: A1-frozen section control, endomyometrium, A2-anterior cervix, A3-posterior cervix, G6-W53-fkgjfinh endomyometrium entirely, from lower uterine segment to fundus, P23-R91-wrqdsficd endomyometrium entirely from lower uterine segment to fundus, G82-ebihfakbsb mass and hemorrhagic myometrium, Q68-jqlbr ovary, S29-jskjw fallopian tube, R27-zkpi ovary, H92-puie tube. LJ Note: Per pathologist the endometrial cavity is submitted entirely. 06/06/2021 8:39 AM CDT [facility] Microscopic Description Microscopic examination was performed. 06/06/2021 8:39 AM T [facility] Disclaimer All histochemical and/or immunohistochemical results are interpreted with controls that demonstrate appropriate staining reactions before reporting results. Note on use of immunocytochemistry reagents: This test was developed and its performance characteristic determined by [facility], Department of Laboratory Medicine. It has not been cleared or approved by the U.S. Food and Drug Administration (FDA). The FDA has determined that such clearance or approval is not necessary. The test is used for clinical purpose. It should not be regarded as investigational or for research. This laboratory is certified to perform high complexity testing. The performance characteristics of the IHC/BAILEY assays have been validated on formalin-fixed paraffin embedded tissues only. The assays have not been validated on decalcified tissues. Results should be interpreted with caution. 06/06/2021 8:39 AM CDT [facility] Embedded Images 06/06/2021 8:39 AM CDT [facility] Pathology/Cytolo gy SPECIMEN FROM UTERINE CERVIX OBTAINED BY HYSTERECTOMY / Unknown 06/01/2021 11:12 AM CDT 06/01/2021 11:16 AM CDT Comment:Pre-op diagnosis: Diagnosis unknown [R69] Kelley Sanford MD LAB - PATHOLOGY/CY TOLOGY ORDERABLES [facility] [address] [place] [address] * BLOOD TYPE VERIFICATION (06/01/2021 10:25 AM CDT) ABO Rh A POS 06/01/2021 10:55 AM CDT [facility] Blood Bank BLOOD SPECIMEN / Unknown Lab Venipuncture / Unknown 06/01/2021 10:25 AM CDT 06/01/2021 10:25 AM CDT Kelley Sanford MD LAB - BLOOD BANK O RDERABLES [facility] [address] [place] [address], [facility] [phone] * ETT LINE PERFORMABLE (06/01/2021 10:21 AM CDT) Narrative Joie Boyer APRN-CRNA - 06/01/2021 10:21 AM CDT Joie Boyer APRN-CRNA ? 06/01/2021 10:22 AM Endotracheal Tube Placement: ? Patient Location: OR. Intubation Event Date/Time: ??06/01/2021 10:04 AM Procedure: intubation (04306). Procedure Section: ?? Sedation: under general anesthesia. Indications for Airway Management: ??anesthesia Procedure pretreatments used? ??No Induction: modified rapid sequence Patient Position: ??sniffing Mask Ventilation: easy. Blade Type: Benita Blade Size: 3 Laryngoscopy View: grade 1 (full cords) Intubation Adjuncts: stylet and cricoid pressure Tube: endotracheal tube Placement: oral Tube type: cuff - inflated Tube Size (MM): 7 Depth of Insertion (CM): 21 Measured From: lips Cuff volume (mL): ??6 Cuff Inflated With: air Number of Attempts: 1. Placement Verified By: direct visualization, bilateral breath sounds, chest auscultation and CO2 monitor Tube secured with: ??adhesive tape. Difficult Airway? ??No. Procedure Start Time: 06/01/2021 10:04 AM. Staff Section ?? Anesthesia Provider: Joie Boyer APRN-MAP CLERK, Performed the procedure Provider #1: Ahsan Sung MD. Additional Comments: Atraumatic intubation, dentition and lips same as baseline. Ahsan Sung MD GENERAL ANESTHESIA ORDERABLES * TYPE + SCREEN PANEL (06/01/2021 9:24 AM CDT) ABO Rh A POS 06/01/2021 10:16 AM CDT [facility] Comment:No history; collect retype. Antibody Screen NEG 10:16 AM CDT [facility] Blood Bank BLOOD SPECIMEN / Unknown Venipuncture / Unknown 06/01/2021 9:24 AM CDT 06/01/2021 9:36 AM CDT Kelley Sanford MD LAB - BLOOD BANK O RDERABLES [facility] [address] [phone] * (ABNORMAL) CBC W AUTO DIFFERENTIAL (06/01/2021 9:24 AM CDT) Only the most recent of2 resultswithin the time period is included. WBC 6.3 4.4 - 10.7 x10E9/L 06/01/2021 9:39 AM CDT [facility] WBC Corrected 06/01/2021 9:39 AM CDT [facility] RBC 5.47(H) 3.80 - 5.20 x10E12/L 06/01/2021 9:39 AM CDT [facility] Hemoglobin 15.5 12.0 - 15.6 gm/dL 06/01/2021 9:39 AM CDT [facility] Hematocrit 50.1(H) 35.9 - 45.5 % 06/01/2021 9:39 AM CDT [facility] MCV 91.6 80.7 - 98.3 fl 06/01/2021 9:39 AM CDT [facility] MCH 28.3 26.7 - 34.0 pg 06/01/2021 9:39 AM CDT [facility] MCHC 30.9 30.8 - 35.9 gm/dL 06/01/2021 9:39 AM CDT [facility] Platelet Count 326 153 - 416 x10E9/L 06/01/2021 9:39 AM CDT [facility] RDW-CV 16.4(H) 12.1 - 14.9 % 06/01/2021 9:39 AM CDT [facility] MPV 8.6(L) 9.4 - 12.9 fl 06/01/2021 9:39 AM CDT [facility] Neutrophils % 47.8 44.0 - 73.0 % 06/01/2021 9:39 AM CDT [facility] Lymphocytes % 41.6 20.0 - 43.0 % 06/01/2021 9:39 AM CDT [facility] Monocytes % 6.8 5.0 - 13.0 % 06/01/2021 9:39 AM CDT [facility] Eosinophils % 2.5 0.0 - 6.0 % 06/01/2021 9:39 AM CDT [facility] Basophils % 1.1 0.0 - 2.0 % 06/01/2021 9:39 AM CDT [facility] Immature Granulocytes 0.2 0 - 1 % 06/01/2021 9:39 AM CDT [facility] Neutrophil Absolute 3.02 2.01 - 7.14 x10E9/L 06/01/2021 9:39 AM CDT [facility] Lymphocytes Absolute 2.63 1.07 - 3.94 x10E9/L 06/01/2021 9:39 AM CDT [facility] Monocytes Absolute 0.43 0.26 - 1.07 x10E9/L 06/01/2021 9:39 AM CDT [facility] Eosinophils Absolute 0.16 0 - 0.47 x10E9/L 06/01/2021 9:39 AM CDT [facility] Basophils Absolute 0.07 0 - 0.08 x10E9/L 06/01/2021 9:39 AM CDT [facility] Immature Granulocytes Absolute 0.01 0.00 - 0.06 x10E9/L 06/01/2021 9:39 AM CDT [facility] nRBC Auto 0 /100 WBC 06/01/2021 9:39 AM CDT [facility] Blood BLOOD SPECIMEN / Unknown Venipuncture / Unknown 06/01/2021 9:24 AM CDT 06/01/2021 9:35 AM CDT Kelley Sanford MD LAB - HEMATOLOGY O RDERABLES [facility] [address] [place] [address] * (ABNORMAL) COMPREHENSIVE METABOLIC PANEL (06/01/2021 9:24 AM CDT) [facility] Glucose 90 70 - 105 mg/dL 06/01/2021 10:10 AM [facility] Sodium 137 136 - 145 mmol/L 06/01/2021 10:10 AM [facility] Potassium 4.2 3.5 - 5.1 mmol/L 06/01/2021 10:10 AM [facility] Chloride 100 98 - 107 mmol/L 06/01/2021 10:10 AM [facility] CO2 32(H) 23 - 31 mmol/L 06/01/2021 10:10 AM [facility] Calcium 9.9 8.4 - 10.4 mg/dL 06/01/2021 10:10 AM [facility] Anion Gap 5(L) 8 - 18 mmol/L 06/01/2021 10:10 AM [facility] BUN 11 9.8 - 20.1 mg/dL 06/01/2021 10:10 AM [facility] Creatinine 0.69 0.57 - 1.11 mg/dL 06/01/2021 10:10 AM [facility] Alkaline Phosphatase 59 40 - 150 U/L 06/01/2021 10:10 AM [facility] ALT 17 0 - 61 U/L 06/01/2021 10:10 AM [facility] AST 19 5 - 34 U/L 06/01/2021 10:10 AM [facility] Protein Total 6.6 6.4 - 8.3 gm/dL 06/01/2021 10:10 AM [facility] Albumin 3.9 3.2 - 4.6 gm/dL 06/01/2021 10:10 AM [facility] Bilirubin Total 0.5 0.2 - 1.2 mg/dL 06/01/2021 10:10 AM [facility] eGFR by MDRD >60 >60 mL/min/1.7 3m2 06/01/2021 10:10 AM [facility] eGFR by MDRD >60 >60 mL/min/1.7 3m2 06/01/2021 10:10 AM [facility] Blood BLOOD SPECIMEN / Unknown Venipuncture / Unknown 06/01/2021 9:24 AM CDT 06/01/2021 9:35 AM CDT Kelley Sanford MD LAB - CHEMISTRY OR DERABLES [facility] [address] [place] [address] * IMAGING RADIOLOGY XRAY RESULTS ORDER (05/14/2020 7:00 AM CDT) Only the most recent of2 resultswithin the time period is included. Anatomical Region Laterality Modality Other Narrative 05/14/2020 7:00 AM CDT Ordered by an unspecified provider. Scanned Document IMAGING * NV SONO EXAM, TRANSVAGINAL (05/13/2020 11:05 AM CDT) Narrative Leanne Levy - 05/13/2020 11:05 AM CDT Leanne Levy ? 05/13/2020 11:05 AM Documentation in digisonics. Kelley Sanford MD PROCEDURE/MINOR MAJOR RGICAL ORDERABLES * MAMMOGRAM (01/19/2020) Anatomical Region Laterality Modality Other Historical Provider MD SCANNING ONLY * PET CT SKULL TO MID THIGH (12/30/2019 2:54 PM PROSTHETIST) Anatomical Region Laterality Modality Head, Lower Extremity Nuclear Me dicine 12/31/2019 9:20 AM PROSTHETIST Addenda Addendum by Adri Van, on 12/31/2019 10:44 AM PROSTHETIST In addition to the impression, there is somewhat dense breast tissue bilaterally with mild FDG uptake as well as a moderately FDG avid 1.2 cm left axillary node. Findings may be reactive but malignancy is not excluded. Recommend further evaluation with mammography if not already performed. Addending Radiologist: Adri Van MD on 12/31/2019 at 10:41 AM Impressions 12/31/2019 10:05 AM PROSTHETIST 1. Enlarged uterus with intense FDG uptake within the endometrium but no definite changes on CT. Findings are suspicious for malignancy. 2. No abnormal FDG avid abdominal or pelvic lymph nodes. However, there are a few tiny subcentimeter internal iliac nodes without increased metabolic activity, but too small to characterize by PET. Reading Radiologist: Adri Van MD on 12/31/2019 at 10:05 AM Narrative 12/31/2019 10:05 AM PROSTHETIST Procedure: PET/CT study Referring physician: Dr. Sanford HISTORY: 69-year-old female with postmenopausal bleeding with a concern of endometrial cancer. Evaluate for initial treatment strategy. TECHNIQUE: 11.10 mCi of F-18 FDG by IV in the right antecubital fossa. PET/CT image acquisition from the base of the skull to upper thighs after approximately 67 minutes postinjection with a CT being low dose, noncontrast. No separate report for the CT was generated since it was used for attenuation correction and anatomic localization. Blood glucose level of the time of injection was 101 mg/DL. FINDINGS: No prior study is available for comparison. HEAD AND NECK: ??There is no abnormal FDG uptake. CHEST: Minimal biapical scarring. A calcified granuloma in the right upper lobe without increased metabolic activity, likely benign. Bibasilar atelectasis. The lungs are otherwise clear with no evidence of pneumothorax or pleural effusion. Calcified right paratracheal and right hilar nodes without increased uptake, likely benign. There are no abnormal FDG avid mediastinal nodes. There is a 1.2 cm left axillary node with SUV Max 3.3. Areas of dense breast tissue bilaterally with mild heterogeneous FDG uptake. ABDOMEN AND PELVIS: Multiple calcified granulomas scattered throughout the spleen. Moderately increased metabolic activity throughout the stomach, likely inflammatory. The liver, kidneys, adrenal glands and pancreas are grossly unremarkable. Heterogeneous FDG uptake throughout the bowel, normal variant. The uterus appears enlarged with intense FDG uptake in the endometrium measuring 3.7 x 3.8 cm on PET with SUV Max 7.5, suspicious for malignancy. There are no definite changes on this noncontrasted CT. There are a few tiny bilateral internal iliac nodes without increased metabolic activity, too small to characterize by PET. Benign-appearing bilateral inguinal nodes. For reference, SUV max of liver is 3.1. MUSCULOSKELETAL: Degenerative changes throughout the spine. Inflammatory changes in the shoulders and hips. There is no abnormal FDG avid lesion. Procedure Note Adri Van, DO - 12/31/2019 Procedure: PET/CT study Referring physician: Dr. Sanford HISTORY: 69-year-old female with postmenopausal bleeding with a concern of endometrial cancer. Evaluate for initial treatment strategy. TECHNIQUE: 11.10 mCi of F-18 FDG by IV in the right antecubital fossa. PET/CT image acquisition from the base of the skull to upper thighs after approximately 67 minutes [address]injection with a CT being low dose, noncontrast. No separate report for the CT was generated since it was used for attenuation correction and anatomic localization. Blood glucose level of the time of injection was 101 mg/DL. FINDINGS: No prior study is available for comparison. HEAD AND NECK: There is no abnormal FDG uptake. CHEST: Minimal biapical scarring. A calcified granuloma in the right upper lobe without increased metabolic activity, likely benign. Bibasilar atelectasis. The lungs are otherwise clear with no evidence of pneumothorax or pleural effusion. Calcified right paratracheal and right hilar nodes without increased uptake, likely benign. There are no abnormal FDG avid mediastinal nodes. There is a 1.2 cm left axillary node with SUV Max 3.3. Areas of dense breast tissue bilaterally with mild heterogeneous FDG uptake. ABDOMEN AND PELVIS: Multiple calcified granulomas scattered throughout the spleen. Moderately increased metabolic activity throughout the stomach, likely inflammatory. The liver, kidneys, adrenal glands and pancreas are grossly unremarkable. Heterogeneous FDG uptake throughout the bowel, normal variant. The uterus appears enlarged with intense FDG uptake in the endometrium measuring 3.7 x 3.8 cm on PET with SUV Max 7.5, suspicious for malignancy. There are no definite changes on this noncontrasted CT. There are a few tiny bilateral internal iliac nodes without increased metabolic activity, too small to characterize by PET. Benign-appearing bilateral inguinal nodes. For reference, SUV max of liver is 3.1. MUSCULOSKELETAL: Degenerative changes throughout the spine. Inflammatory changes in the shoulders and hips. There is no abnormal FDG avid lesion. IMPRESSION 1. Enlarged uterus with intense FDG uptake within the endometrium but no definite changes on CT. Findings are suspicious for malignancy. 2. No abnormal FDG avid abdominal or pelvic lymph nodes. However, there are a few tiny subcentimeter internal iliac nodes without increased metabolic activity, but too small to characterize by PET. Reading Radiologist: Adri Van MD on 12/31/2019 at 10:05 AM Kelley Sanford MD NM ORDERABLES * PATHOLOGY TISSUE FOR DERMATOLOGY (03/14/2013 12:00 AM CDT) Result CASE: [id number] PATIENT: [facility] DIAGNOSIS: Right anterior knee: HEMANGIOMA CLINICAL DATA: Hemangioma vs clear cell acanthoma vs R/O BCC. GROSS DESCRIPTION: Received is one formalin filled container labeled with the patient's name and designated right anterior knee. The specimen consists of a shave biopsy measuring 6x6x1 mm. Jar 0. MICROSCOPIC DESCRIPTION: In the dermis, there are dilated vascular spaces surrounded by widely spaced endothelial cells. Electronically signed out by Aydee Beth M.D. 03/18/2013 2:00:38PM [facility] Comment: Performed at: Dermatopathology Laboratory [facility] - Department of Dermatology [address] [place] [address], Room [address] [place] [address] Phone number: [phone] Toll Free: [phone] FAX: [phone] Skin (tissue) specimen (specimen) 03/14/2013 03/17/2013 Narrative [facility] - 03/18/2013 2:00 PM CDT Specimen A: Type->Shave ?Site->right anterior knee ?History->pink papule with vascular dots ?Impression->hemangioma vs clear cell acanthoma vs r/o BCC ?Check Margins:->N/A ?Prior Biopsy->N/A Meenakshi Raphael MD LAB - PATHOLOGY/CY TOLOGY ORDERABLES Performing Organization Address [facility] Co de Phone Number [facility] [address] [place] [address]. [address] [place] [address], [facility] [phone] * PATHOLOGY/GENETICS HISTORICAL-ONBASE (01/30/2011) Only the most recent of4 resultswithin the time period is included. 01/30/2011 Historical Provider LAB - CHEMISTRY O RDERABLES [facility] * CARDIAC EKG ORDER (05/25/2010 9:41 AM CDT) Narrative 05/25/2010 9:41 AM CDT Ordered by an unspecified provider. Transcriptions Document, Scanned - 05/20/2010 12:00 AM CDT Scanned Document CARDIAC SERVICES ORD ERABLES * LAB RESULTS ORDER (05/25/2010 9:41 AM CDT) Narrative 05/25/2010 9:41 AM CDT Ordered by an unspecified provider. Transcriptions Document, Scanned - 05/20/2010 12:00 AM CDT Scanned Document LAB - THERAPEUTIC DR ANABEL MONITORING ORDERABLES * PT PTT PANEL (05/11/2010 11:04 AM CDT) PT 9.6 9.4 - 11.4 seconds [facility] INR 0.91 SEE BELOW [facility] Comment: Conventional anticoagulation ?? 2.0-3.0 Intensive anticoagulation ?? 2.5-3.5 PTT 26.9 24.0 - 33.0 seconds [facility] BLOOD SPECIMEN / Unknown 05/11/2010 11:04 AM CDT 05/11/2010 11:04 AM CDT Provider Unknown LAB - COAGULATION OR DERABLES [facility] [address] [place] [address] * BASIC METABOLIC PANEL (CALCIUM TOTAL) (05/11/2010 11:04 AM CDT) Sodium 143 137 - 145 mmol/L [facility] Potassium 4.5 3.6 - 5.0 mmol/L [facility] Chloride 106 98 - 107 mmol/L [facility] BUN 9 7 - 17 mg/dl [facility] Creatinine 0.82 0.52 - 1.04 mg/dl [facility] Glucose 101 65 - 105 mg/dl [facility] CO2 28 22 - 30 mmol/L [facility] Calcium 10.2 8.4 - 10.2 mg/dl [facility] eGFR by MDRD 72 >60 mL/min/1.7 3m2 [facility] Comment eGFR [facility] Comment: ? The eGFR does not apply to patients who are younger than ? 18 or older than 70. 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
--- OUTSIDE RECORDS SUMMARY | 2024-11-23 15:02 | XMS_ITS | Clinical Summary ---
Author Organization [facility] Address [address] [place] [address] Phone Care Team Providers Care Talent Rep Name Role Phone LYLA PERRY MD Primary Care Provider Reason for Visit and Chief Complaint The Chief Complaint is: States she has a Bakers cyst on the right knee that is very painful. Statesshe had it drained once at [facility], but it has come back Problems Includes: Problems addressed during this encounter and other active Problems Current Visit Onset Date Resolved Date Provider Conditio n Status Tobacco Use 09/19/2013 LYLA PERRY MD Inactive Last Documented On 06/05/2014 9:57AM ; [facility] Note: Unchanged History of Cancer, Nos 03/06/2013 LYLA PERRY MD Inactive Last Documented On 06/05/2014 9:56AM ; [facility] Note: Unchanged Reported Family History of Alcoholism 03/06/2013 LYLA PERRY MD Inactive Last Documented On 06/05/2014 9:56AM ; [facility] Note: Unchanged Reported Family History of Cancer 03/06/2013 LYLA PERRY MD Inactive Last Documented On 06/05/2014 9:56AM ; [facility] Note: Unchanged Cough 09/05/2012 LYLA PERRY MD Inactive Last Documented On 06/05/2014 9:55AM ; [facility] Note: Unchanged Palpitations 09/05/2012 MARLYS PALACIOS MD Active Last Documented On 09/05/2012 10:21AM ; [facility] Note: Unchanged Past Visits Onset Date Resolved Date Provider Condition Status Pain in the Right Foot 04/07/2024 KAITLIN ACOSTA DO Active Last Documented On 9:37AM ; [facility] Disorder of Muscle Weakness (Generalized) 02/26/2024 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 Last Documented On 4 9:46AM ; [facility] Synovial Cyst of Popliteal Spaces Bilateral 02/26/2024 IDA MANCUSO FN P-C Active Last Documented On 4 4:13PM ; [facility] Joint Pain in the Right Knee 01/14/2024 ARTEMIO Bolanos Active Last Documented On 4 1:24PM ; [facility] Generalized Anxiety Disorder 10/25/2021 LYLA PERRY MD Active Last Documented On 1 2:02AM ; [facility] Note: Unchanged Osteoarthritis Localized Eun jian Right 1st Mtp Joint 04/15/2020 LYLA PERRY MD Active Last Documented On 0 2:51PM ; [facility] Note: Unchanged Actinic Keratosis 01/15/2018 LYLA PERRY MD Active Last Documented On 8 11:45PM ; [facility] Note: Unchanged Hypercholesterolemia 03/18/2017 LYLA PERRY MD Active Last Documented On 7 11:11PM ; [facility] Note: Unchanged Constipation Functional 03/20/2016 LYLA FROST MD Active Last Documented On 6 12:02AM ; [facility] Note: Unchanged Chronic Obstructive Pulmonar y Disease Moderate 03/20/2016 LYLA PERRY MD Active Last Documented On 6 12:02AM ; [facility] Note: Unchanged Nicotine Dependence in Remission 03/20/2016 HOLLIS PERRY MD Active Last Documented On 6 12:02AM ; [facility] Note: Unchanged Esophageal Reflux Without Esophagitis 11/18/2015 LYLA PERRY MD Active Last Documented On 5 4:41PM ; [facility] Note: Unchanged Persistent Insomnia 11/18/2015 LYLA PERRY MD Active Last Documented On 5 4:41PM ; [facility] Note: Unchanged Familial (Benign Essential) Tremor 06/19/2013 Guille PERRY MD Active Last Documented On 4 10:00AM ; [facility] Note: Unchanged Restless Legs Syndrome 09/05/2012 MARLYS VILLAVICENCIO MD Active Last Documented On 2 10:21AM ; [facility] Note: Unchanged Plan of Treatment Pending Tests Order Diagnosis Results Due Ordering P rovider Lab A1C HGB (GLYCO HEMOGLOBIN) 10/06/23 LYLA PERRY MD Last Documented On 4 1:25PM ; [facility] Lab LIPID PANEL 10/06/23 LYLA GARG MD Last Documented On 4 1:25PM ; [facility] Lab CMP 10/06/23 LYLA Cowan MD Last Documented On 4 1:25PM ; [facility] Lab CBC WITH DIFF 10/06/23 LYLA SHAFFER MD Last Documented On 4 1:25PM ; [facility] Referrals To Diagnosis Orthopedic KAITLIN ACOSTA DO Synovial cyst of popliteal space [Moseley], right knee Last Documented On 4 8:52PM ; [facility] Instructions to patient Intervention and counseling on cessation of tobacco use Last Documented On 4 4:02PM ; [facility] Assessments Includes: Assessments from this encounter Findings - Synovial cyst of right popliteal space [M71.21 - Synovial cyst of popliteal space [Moseley], right knee] - Last Documented On 03/24/2024 5:57AM ; [facility] Instructions Includes: Instructions from this encounter Instructions to patient Intervention and counseling on cessation of tobacco use Last Documented On 4 4:02PM ; [facility] Medical Equipment - Implanted Devices Includes: Current Devices No Medical Equipment Recorded Medications Includes: Medications discussed during this encounter and other current Medications New / Renewed during this visit LYLA PERRY MD on 03/10/2024 predniSONE 10 MG Oral Tablet Provider: LYLA PERRY MD 12 day supply: 39 tablet, 0 refills Diagnosis: Synovial cyst of popliteal space [Moseley], right knee as directed 6 tabs day 1-34 tabs day 4-62 tabs day 7-91 tab day 10-12then stop Pharmacy: [facility] - [address] [place] [address], [id number] - Last Documented On 03/10/2024 4:37PM By HOLLIS PERRY MD ; [facility] Current Medications (continue as prescribed) Rosuvastatin Calcium 10 MG Oral Tablet 05/09/2024 Provider: LYLA PERRY MD Diagnosis: Pure hypercholes terolemia, unspecified TAKE 1 TABLET BY MOUTH AT BEDTIME Last Documented On 05/09/2024 1:18PM By HOLLIS PERRY MD ; [facility] traMADol HCl 50 MG Oral Tablet 03/19/2024 Provider: ARTEMIO Bolanos Diagnosis: Pain in right kn ee One tablet four times a day Last Documented On 1:25PM By Artemio Vincent PA-C ; [facility] Albuterol-Budesonide 90-80 MCG/ACT Inhalation Aerosol 02/26/2024 Provider: Diagnosis: 2 puffs every 6 hrs PRN Last Documented On 02/26/2024 4:12PM By Bartolo DEL ANGEL ; [facility] Bisacodyl 5 MG Oral Tablet Delayed Release 02/26/2024 Provider: Diagnosis: 2 tabs Once a day PRN Last Documented On 02/26/2024 4:12PM By Bartolo DEL ANGEL ; [facility] Esomeprazole Magnesium 20 MG Oral Capsule Delayed Release 02/15/2024 Provider: LYLA SHAFFER MD Diagnosis: Gastro-esophagea l reflux disease without esophagitis Take 1 capsule by mouth once daily Last Documented On 02/15/2024 12:20AM By HOLLIS PERRY MD ; [facility] Furosemide 20 MG Oral Tablet 02/01/2024 Provider: LYLA PERRY MD Diagnosis: Localized edema TAKE 1/2 (ONE-HALF) TABLET B Y MOUTH ONCE DAILY IN THE MORNING Last Documented On 02/01/2024 9:42AM By HOLLIS PERRY MD ; [facility] Propranolol HCl ER 60 MG Ora l Capsule Extended Release 24 Hour 01/22/2024 Provider: LYLA PERRY MD Diagnosis: Take 1 capsule by mouth twice daily Last Documented On 01/22/2024 9:02PM By HOLLIS PERRY MD ; [facility] clonazePAM 1 MG Oral Tablet 2024 Provider: LYLA PERRY MD Diagnosis: Insomnia, unspec ified TAKE 1 TABLET BY MOUTH AT BEDTIME Last Documented On 2024 10:26PM By HOLLIS PERRY MD ; [facility] Citalopram Hydrobromide 20 M G Oral Tablet 11/03/2023 Provider: LYLA PERRY MD Diagnosis: Adjustment disor iliana with anxiety Take 1 tablet by mouth once daily Last Documented On 11/03/2023 8:04PM By HOLLIS PERRY MD ; [facility] Trelegy Ellipta 200-62.5-25 MCG/ACT Inhalation Aerosol Powder Breath Activated 09/15/2022 Provider: LYLA PERRY MD Diagnosis: 1 puff qd Last Documented On 09/15/2022 9:30AM By Ivania Sanchez Joslyn ; [facility] Fish Oil 1000 MG Oral Capsule 09/17/2020 Provide r: Diagnosis: Last Documented On 09/17/2020 8:34AM By Pamella Coker LPN ; [facility] Primidone 250 MG Oral Tablet 03/17/2020 Provider: Diagnosis: Last Documented On 03/17/2020 8:28AM By Viviane Ford Joslyn ; [facility] Womens Multivitamin Plus OR TABS 05/24/2012 Provider : MARLYS VILLAGOMEZ MD Diagnosis: OTC Last Documented On 05/24/2012 11:10AM By Azucena Ramos LPN ; [facility] Past Medications on file predniSONE 10 MG Oral Tablet 02/01/2024 - 02/11/2024 Provider: LYLA PERRY MD Diagnosis: Chronic obstruct kenna pulmonary disease, unspecified 6 TABS DAY 1-25 TABS DAY 3-4 4 TABS DAY 5-63 TABS DAY 7-82 TABS DAY 91 TAB DAY 10 THEN STOP Last Documented On 02/01/2024 9:42AM By HOLLIS PERRY MD ; [facility] Medications Administered Includes: Administered Medications from this encounter No Administered Medications Recorded Vital Signs Includes: Vital Signs from this encounter Vital Name 03/10/2024 03:52P Blood Pressure Sitting (mmHg) 120/62 Pulse Rate-Sitting (bpm) 64 Respiration Rate (breaths/min) 24 Height (in) 65 Last Documented: On 03/10/2024 4:01PM ; [facility] Results Includes: Results discussed during this encounter No Results Recorded For Specified Dates History of Present Illness Includes: History of Present Illness from this encounter DHEERAJ LAKE is a 74 year old female. - Allergy list reviewed - Medication list reviewed - A lesion on the right knee - Painful The patient is a 74 years old female presenting today for a problem visit. She reports a skin localized on her right knee. She reports associated pain. She had a similar lesion in the past which was drained. Social History Description Last Updated Not a current smoker Quit 05/15/22. Smoke r since age 20 04/07/2024 Last Documented On 4 3:50PM ; [facility] No consumption of alcohol 02/26/2024 Last Documented On 4 3:50PM ; [facility] No tobacco use 02/26/2024 Last Documented On 4 3:50PM ; [facility] Tobacco non-user 02/01/2024 Last Documented On 4 3:50PM ; [facility] Not recovering alcoholic 02/01/2024 Last Documented On 4 3:50PM ; [facility] Not recovering from substance abuse 01/17 Last Documented On 4 3:50PM ; [facility] Consuming 5 or more drinks per day 12/21 Last Documented On 4 3:50PM ; [facility] Number of times used recreat ional drug/ prescription drug for nonmedical reason. 12/21/2023 Last Documented On 4 3:50PM ; [facility] Former smoker 03/29/2023 Last Documented On 4 3:50PM ; [facility] Marital history Wilder 06/15/2022 Last Documented On 4 3:50PM ; [facility] Drinking in moderation (2 drinks/day or fewer) 03/24/2021 Last Documented On 4 3:50PM ; [facility] No caffeine use 03/24/2021 Last Documented On 4 3:50PM ; [facility] Not using drugs 03/24/2021 Last Documented On 4 3:50PM ; [facility] Sexually active 03/24/2021 Last Documented On 4 3:50PM ; [facility] Exercising regularly 03/24/2021 Last Documented On 4 3:50PM ; [facility] Sexually active with 1 partners in the l ast year 03/24/2021 Last Documented On 4 3:50PM ; [facility] Smoking Status Unknown Procedures and Surgical History Includes: Procedures from this encounter Procedures Code Diagnosis Performing Provider Service L ocation Service Date plan of care reviewed and agreed to Last Documented On 4 4:38PM ; [facility] intervention and 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 Last Documented On 4 4:38PM ; [facility] Clinical summary provided to patient Last Documented On 4 4:38PM ; [facility] Surgical History Last Updated History of dilation and curettage 12/2019 and 05/31/20 03/24/2021 Last Documented On 4 3:50PM ; [facility] Surgical / procedural history D&C x 2 Last Documented On 4 3:50PM ; [facility] Surgical / procedural history Basal cell carcinoma of Nose excised 05/24/2012 Last Documented On 4 3:50PM ; [facility] Medical History Includes: Medical History addressed [...] Spaces Bilateral 03/01/2024 Last Documented On 4 3:50PM ; [facility] Has had no fall in the last 12 months. 0 02/26/2024 Last Documented On 4 3:50PM ; [facility] Previous hospitalizations 02/26/2024 Last Documented On 4 3:50PM ; [facility] Pt does not get blood pressure checked a t other facility 02/01/2024 Last Documented On 4 3:50PM ; [facility] Vaccine history 02/01/2024 Last Documented On 4 3:50PM ; [facility] LMP: hysterectomy 03/29/2023 Last Documented On 4 3:50PM ; [facility] Vaginal delivery 03/24/2021 Last Documented On 4 3:50PM ; [facility] 3 10/27/2019 Last Documented On 4 3:50PM ; [facility] Para 3 10/27/2019 Last Documented On 4 3:50PM ; [facility] History of cancer 05/24/2012 Last Documented On 4 3:50PM ; [facility] Surgery P.A.T 1973 ~PLMS 11/200203/21/20 12 Last Documented On 4 3:50PM ; [facility] Family History Includes: Family History addressed during this encounter Description Last Updated Father 02/26/2024 Last Documented On 4 3:50PM ; [facility] Mother 02/26/2024 Last Documented On 4 3:50PM ; [facility] Family history unchanged 03/29/2023 Last Documented On 4 3:50PM ; [facility] heart disease PGF from heart at tack 03/24/2021 Last Documented On 4 3:50PM ; [facility] Family history of malignant female breas t neoplasm mom 03/24/2021 Last Documented On 4 3:50PM ; [facility] Maternal history of diabetes mellitus Last Documented On 4 3:50PM ; [facility] Paternal history of neurologic disorder PARKINSONS 02/10/2016 Last Documented On 4 3:50PM ; [facility] Family in poor health FATHER -PARKENSONS ~MOTHER -DIABETES 06/05/2014 Last Documented On 4 3:50PM ; [facility] Family history of alcoholism 05/24/2012 Last Documented On 4 3:50PM ; [facility] Family history of cancer 05/24/2012 Last Documented On 4 3:50PM ; [facility] Family history of diabetes mellitus 04/2012 Last Documented On 4 3:50PM ; [facility] Family history of heart disease 05/24/20 12 Last Documented On 4 3:50PM ; [facility] Review of Systems Includes: Review of Systems from this encounter Systemic: No fever, no chills, and no night sweats. Head: No headache. Eyes: No vision problems. Otolaryngeal: No earache, no nasal discharge, and no sore throat. Cardiovascular: No chest pain or discomfort and no palpitations. Pulmonary: No dyspnea, no cough, and no wheezing. Gastrointestinal: Normal appetite and no heartburn. No nausea, no vomiting, no abdominal pain, and no diarrhea. Genitourinary: No dysuria. Musculoskeletal: No muscle aches and no localized joint pain. Neurological: No dizziness. Psychological: No sleep disturbances. Skin: A lesion on the right knee and painful. Mental Status Includes: Mental Status from this encounter Description Oriented to time, place, and person Functional Status Includes: Functional Status from this encounter No Functional Status Recorded Physical Exam Includes: Physical Exam from this encounter Allergies Includes: Active Allergies Substance Type Reaction Onset Date Resolved Date Statu s Ibuprofen Allergy 03/21/2012 Active Last Documented On 4 8:47AM ; [facility] Encounters Encounter Provider Location Date Check-In Time Check-Out Time Diagnosis PROBLEM VISIT LYLA PERRY MD [facility] 03/10/20 24 3:46PM 4:26PM Synovial Cyst of Popliteal Space Right Insurance Includes: Active Insurance Policies Plan Name Member ID Group # Subscriber Relationship Effect kenna Dates 1 - [employer] [id number] [place]DA [place]KE Self Clinical Notes Includes: Clinical Notes from this encounter * Progress note Date Encounter Last Documented by 03/10/2024 PROBLEM VISIT Last documented on 03/24/2024; 5:57 AM, LYLA PERRY MD; [facility] Active Problems & Conditions - Actinic Keratosis - Chronic Obstructive Pulmonary Disease Moderate - Constipation Functional - Disorder of Muscle Weakness (Generalized) - Esophageal Reflux Without Esophagitis - Familial (Benign Essential) Tremor - Generalized Anxiety Disorder - Hypercholesterolemia - Joint Pain in the Right Knee - Nicotine Dependence in Remission - Osteoarthritis Localized Primary Right 1st Mtp Joint - Palpitations - Persistent Insomnia - Restless Legs Syndrome - Synovial Cyst of Popliteal Spaces Bilateral Chief Complaint The Chief Complaint is: States she has a Bakers cyst on the right knee that is very painful. States she had it drained once at [facility], but it has come back. History of Present Illness LINDA LAKE is a 74 year old female. - Allergy list reviewed - Medication list reviewed - A lesion on the right knee - Painful The patient is a 74 years old female presenting today for a problem visit. She reports a skin localized on her right knee. She reports associated pain. She had a similar lesion in the past which was drained. Current Medication - Albuterol-Budesonide 90-80 MCG/ACT Inhalation [...] AT BEDTIME, 90 days, 1 refills - Trelegy Ellipta 200-62.5-25 MCG/ACT Inhalation Aerosol Powder Breath Activated 1 puff qd, 30 days, 0 refills - Womens Multivitamin Plus Tablet 1 daily OTC, 0 days, 0 refills Past Medical/Surgical History Reported: Surgery P.A.T 1973 PLMS 11/2002. LMP: hysterectomy. Recent Events: Pt does not get blood pressure checked at other facility. Medical: Previous hospitalizations. Vaccine history. Surgical / Procedural: Surgical / procedural history Basal cell carcinoma of Nose excised. Surgical / procedural history D&C x 2. Physical Trauma: Has had no fall in the last 12 months. : 3, para 3, and history of [...] - Dilation and curettage 12/2019 and 05/31/20 Social History Caffeine use: No caffeine use. Tobacco use: No tobacco use and not a current smoker Quit 05/15/22. Smoker since age 20. Former smoker. Alcohol: No consumption of alcohol. Drinking in moderation (2 drinks/day or fewer) and six or more drinks per day 5 or more drinks per day. Not recovering alcoholic. Drug Use: Not using drugs and not recovering from substance abuse. Number of times used recreational drug/ prescription drug for nonmedical reason.. Habits: Exercising regularly. Marital: Marital history Wilder. Sexual: Sexually active with 1 partners in the last year. Allergies - Ibuprofen Family History Father Mother Family in poor health FATHER -YAZAN MOTHER -DIABETES Cancer Alcoholism Heart disease Family history unchanged Heart disease PGF from heart attack Diabetes mellitus Malignant female breast neoplasm mom Paternal: Neurologic disorder PARKINSONS Maternal: Diabetes mellitus Review Of Systems Systemic: No fever, no chills, and no night sweats. Head: No headache. Eyes: No vision problems. Otolaryngeal: No earache, no nasal discharge, and no sore throat. Cardiovascular: No chest pain or discomfort and no palpitations. Pulmonary: No dyspnea, no cough, and no wheezing. Gastrointestinal: Normal appetite and no heartburn. No nausea, no vomiting, no abdominal pain, and no diarrhea. Genitourinary: No dysuria. Musculoskeletal: No muscle aches and no localized joint pain. Neurological: No dizziness. Psychological: No sleep disturbances. Skin: A lesion on the right knee and painful. Physical Findings - Vitals taken 03/10/2024 03:52 pm BP-Sitting 120/62 mmHg 100 - 120/56 - 80 Pulse Rate-Sitting 64 bpm 50 - 100 Respiration Rate 24 per min 18 - 26 Height 65 in 59 - 68 General Appearance: - Well developed. - Well nourished. - In no acute distress. Lungs: - Normal breath sounds/voice sounds. - No wheezing was heard. - No rhonchi were heard. - No rales/crackles were heard. Cardiovascular: Heart Rate And Rhythm: - Normal. Murmurs: - No murmurs were heard. Abdomen: Auscultation: - Bowel sounds were normal. Palpation: - Abdominal non-tender. Neurological: - Oriented to time, place, and person. Assessment - Synovial cyst of right popliteal space [M71.21 - Synovial cyst of popliteal space [Moseley], right knee] Therapy - Reviewed & agreed to staff entries. - Intervention and counseling on cessation of tobacco use. - Clinical summary provided to patient. - Plan of care reviewed and agreed to. Discussed Skin lesion: Based on the presentation of symptoms and physical examination, I suspected her symptoms are secondary to a possible moseley's cyst. Dr. Perry discussed about ganglion cyst with the patient in detail. Prescribed her a steroid taper for 12 days. The patient is advised to continue taking either Tylenol or naproxen for additional 7-10 days. Provided a referral to an orthopedist for further evaluation and treatment. The patient understands and agrees with the plan. Plan StartCited - Synovial cyst of popliteal space [Moseley], right knee Referral: Orthopedic predniSONE 10 MG tablet as directed 6 tabs day 1-34 tabs day 4-62 tabs day 7-91 tab day 10-12then stop, 12 days, 0 refills EndCited Other Marvin Torres scribing the following documents on behalf of Christine Rice MD. Practice Management Use of tobacco assessment performed Review of medications documented. Health Reminders - Assess Need for CT Lung Screen satisfied 02/01/2024. - Assess Tobacco Use satisfied 03/10/2024.
--- OUTSIDE RECORDS SUMMARY | 2024-11-23 15:02 | XMS_ITS | Encounter Summary ---
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 Role Phone Watson Perry MD Primary Care Provider [phone] Encounter Details Date Type Department Care Team (Latest Contact Info) Description 04/16/2024 Travel Social History Tobacco Use Types Packs/Day Years Used Date Smoking Tobacco: Every Day Cigarettes 0.3 40 Smokeless Tobacco: Never Comments: 5-6 cigarettes per day Alcohol Use [...] on file Sexual Orientation Not on file documented as of this encounter Plan of Treatment Not on file documented as of this encounter Visit Diagnoses Not on filedocumented in this encounter Care Teams 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
--- OUTSIDE RECORDS SUMMARY | 2024-11-23 15:02 | XMS_ITS | Encounter Summary ---
Author Organization [facility] Address [address] [place] [address] Care Team Providers Care Spice Grinder Name Role Phone Watson Perry MD Primary Care Provider [phone] Reason for Visit * Auth/Cert Specialty Diagnoses / Procedures Referred By Contac t Referred To Contact Diagnoses Diagnosis unknown Diagnosis unknown [R69] Procedures LAPAROSCOPIC TOTAL HYSTERECTOMY (TLH) Referral ID Status Reason Start Date Expiration Date Visits Re quested Visits Authorized [id number] 1 1 Encounter Details Date Type Department Care Team (Late st Contact Info) Description 06/01/2021 10:30 AM CDT - 06/01/2021 1:[address] [facility] [address] [place] [address] Kelley Sanford MD [address] [address] TOTAL LAPAROSCOPIC HYSTERECTOMY, SALPINGO OOPHORECTOMY--BILATERA L, FROZEN SECTION Surgery Details Date/Time Status Location OR Service Patient Class Case Class Case Type Trauma Case? 06/01/2021 10:[address] [facility] MAIN OR OR 14 Gynecology Surgery Day Care Elective > 5 days Panel 1 Procedure LRB Anes Op Region Wound Class Comments TOTAL LAPAROSCOPIC HYSTERECTOMY, SALPINGO OOPHORECTOMY--BILATERAL, FROZEN SECTION Bilateral General Abdomen Clean Contaminated Surgeon Surgeon Role Service Panel Kelley Sanford MD Primary Gynecology 1 Watson Humphreys MD Resident - Assisting Obstetrics 1 documented in this encounter Social History Tobacco Use Types Packs/Day Years [...] on file documented as of this encounter Last Filed Vital Signs Vital Sign Reading Time Taken Comments Blood Pressure 108/63 06/01/2021 1:30 PM CDT Pulse 66 06/01/2021 1:30 PM CDT Temperature 36.6 ??C (97.8 ??F) 06/01/2021 9:21 AM CD T Respiratory Rate 13 06/01/2021 1:30 PM CDT Oxygen Saturation 93% 06/01/2021 1:30 PM CDT Inhaled Oxygen Concentration - - Weight 61.2 kg (135 lb) 05/30/2021 8:44 AM CDT Height 165.1 cm (5' 5 ) 05/30/2021 8:44 AM CDT Body Mass Index 22.47 05/30/2021 8:44 AM CDT documented in this encounter Medications at Time of Discharge Medication Sig Dispensed Refills Start Date End Date acetaminophen (TYLENOL) 500 MG tablet Take 1 tablet by mouth every 4 hours as needed for Pain Maximum allowable Acetaminophen amount = 4 Grams (4000 mg) / 24 hours. 30 tablet 12/15/2019 Calcium Carb-Cholecalciferol (CALCIUM 600 + D PO) Take by mouth 2 times daily citalopram (CELEXA) 20 MG tablet Take 1 (one) tablet by mouth once daily clonazePAM (KLONOPIN) 1 MG tablet Take 1 (one) tablet by mouth at bedtime esomeprazole (NEXIUM) 20 MG capsule Take 1 (one) capsule by mouth once daily gabapentin (NEURONTIN) 300 MG capsule Take 1 (one) capsule by mouth 2 times daily 12/01/2020 multivitamin daily (THERAGRAN) tablet Take 1 (one) tablet by mouth daily with food [place]-3 Fatty Acids (FISH OIL PO) Take 1,000 mg by mouth 3 times daily pramipexole (MIRAPAX) 0.5 MG tablet Take 1 (one) tablet by mouth at bedtime propranolol CR 24hr (INDERAL LA) 60 MG capsule Take 1 (one) capsule by mouth once daily rosuvastatin (CRESTOR) 10 MG tablet Take 1 (one) tablet by mouth at bedtime 11/09/2019 senna (SENOKOT) 8.6 MG tablet Take 2 (two) tablets by mouth once daily 30 tablet 06/01/2021 fluticasone-vilanter ol (BREO ELLIPTA) 100-25 MCG/INH inhaler Inhale 1 puff by mouth once daily 04/16/2024 ibuprofen (MOTRIN) 600 MG tablet Take 1 (one) tablet by mouth every 6 hours as needed for Pain 40 tablet 06/01/2021 04/16/2024 medroxyPROGESTERone (PROVERA) 10 MG tablet Take 1 tablet by mouth once daily 30 tablet 5 12/18/2019 04/16/2024 ondansetron (ZOFRAN) 4 MG tablet Take 1 (one) tablet by mouth every 6 hours as needed for Nausea/Vomiting 10 tablet 06/01/2021 06/28/2021 oxyCODONE, immediate release, (ROXICODONE) 5 MG tablet Take 1 (one) tablet by mouth every 4 hours as needed for Pain 15 tablet 06/01/2021 04/16/2024 primidone (MYSOLINE) 50 MG tablet Take 5 (five) tablets by mouth at bedtime 10/03/2019 04/16/2024 documented as of this encounter Progress Notes * Leslie Davies RN - 06/01/2021 2:53 PM CDT 1203) Pt with poor respiratory effort but slightly rousable. 1215)Pt in PACU. Called anesthesia to report poor respiratory effort. 1220) Intermittent bad mask ventilation and supplemental O2. Pt unresponsive. 1245) Intubated. 1250)Ventilator and ABGs. 1315) Pt responsive and extubated. 1400)WeaningO2. Alert and resting. 1500) O2 sats 93-95% on room air. Will take to SDS documented in this encounter H&P Notes * Fartun Perea MD - 05/25/2021 1:03 PM CDT Pre Op History & Physical Per chart review Pre-Operative Diagnosis: postmenopausal bleeding Planned Procedure: TOTAL LAPAROSCOPIC HYSTERECTOMY, SALPINGO OOPHORECTOMY--BILATERAL, FROZEN SECTION, POSSIBLE STAGING, POSSIBLE EXPLORATORY LAPAROTOMY Surgeon: Kelley Sanford MD History: Janeth Parker is a 71 year old who presented for a follow up appt s/p HSC, D&C done 12/15/2019 for appearance of abnormal uterus on imaging as well as some LAD. Pt had been having PMB. Pathology demonstrated endometrial polyp with simple hyperplasia. She was started on progesterone but had a lot of bleeding issues with this so it was discontinued. Given the comment of LAD on her initial CT a PET scan was done. This did demonstrate some activity in the uterus though she was recently post op from her D&C and thus it was attributed to this. Ultimately she had another D&C 05/31/2020 which was benign again and she was discharged to follow with benign gynecology. She has had some return of spotting. US demonstrated a thickened endometrium of 13mm. Denies cramping. She was offered repeat endometrial sampling vs definitive therapy and elected for the latter. PMH: Past Medical History: Diagnosis Date ??? Abnormal Pap smear of cervix ??? Actinic keratoses ??? Adjustment disorder with anxiety ??? Benign essential tremor ??? COPD (chronic obstructive pulmonary disease) ??? Functional constipation ??? GERD (gastroesophageal reflux disease) ??? Hypercholesterolemia ??? Insomnia ??? Irregular heartbeat ??? RLS (restless legs syndrome) ??? Skin cancer of nose PSH: Past Surgical History: Procedure Laterality Date ??? Breast Lumpectomy right- non-cancerous ??? Bunionectomy ??? HYSTEROSCOPY N/A 12/15/2019 N/A; HYSTEROSCOPY WITH DILATION & CURETTAGE ??? HYSTEROSCOPY N/A 05/31/2020 N/A; HYSTEROSCOPY WITH DILATION & CURETTAGE ??? MOH'S SURGERY nose ??? SURGICAL HISTORY OF R ELBOW ??? SURGICAL HISTORY OF 6-2-10 full thickness skin graft to nose cartilage graft local tissue rt ear ??? SURGICAL HISTORY OF right thumb surgery OB: OB History Para Term AB Living 3 3 3 SAB TAB Ectopic Multiple Live Births 3 # Outcome Date GA Lbr Bud/2nd Weight Sex Delivery Anes PTL Lv 3 Para 2 Para 1 Para Obstetric Comments Gynecology History: Last pap 10/27/19 NILM with neg HPV Mammogram 2017 Colonoscopy 01/17/19 DIRECTOR OF ASSISTED LIVING: see HPI SOC: Social History Socioeconomic History ??? Marital status: Spouse name: Not on file ??? Number of children: Not on file ??? Years of education: Not on file ??? Highest education level: Not on file Occupational History ??? Not on file Tobacco Use ??? Smoking status: Current Every Day Smoker Packs/day: 0.25 Years: 40.00 Pack years: 10.00 Types: Cigarettes ??? Smokeless tobacco: Never Used ??? Tobacco comment: 5-6 cigarettes per day Vaping Use ??? Vaping Use: Never used Substance and Sexual Activity ??? Alcohol use: No ??? Drug use: No ??? Sexual activity: Not Currently Partners: Male control/protection: None Other Topics Concern ??? Not on file Social History Narrative ??? Not on file Social Determinants of Health Financial Resource Strain: ??? Difficulty of Paying Living Expenses: Food Insecurity: ??? Worried About Running Out of Food in the Last Year: ??? Ran Out of Food in the Last Year: Transportation Needs: ??? Lack of Transportation (Medical): ??? Lack of Transportation (Non-Medical): Physical Activity: ??? Days of Exercise per Week: ??? Minutes of Exercise per Session: Stress: ??? Feeling of Stress : Social Connections: ??? Frequency of Communication with Friends and Family: ??? Frequency of Social Gatherings with Friends and Family: ??? Attends Orthodox Services: ??? Active Member of Clubs or Organizations: ??? Attends Club or Organization Meetings: ??? Marital Status: Intimate Partner Violence: ??? Fear of Current or Ex-Partner: ??? Emotionally Abused: ??? Physically Abused: ??? Sexually Abused: Allergies Allergen Reactions ??? Ibu [Ibuprofen Micronized] Rash No current facility-administered medications for this encounter. Current Outpatient Medications Medication Sig Dispense Refill ??? acetaminophen (TYLENOL) 500 MG tablet Take 1 tablet by mouth every 4 hours as needed for Pain Maximum allowable Acetaminophen amount = 4 Grams (4000 mg) / 24 hours. 30 tablet 0 ??? Calcium Carb-Cholecalciferol (CALCIUM 600 + D PO) Take by mouth 2 times daily ??? citalopram (CELEXA) 20 MG tablet Take 1 tablet by mouth once daily ??? clonazePAM (KLONOPIN) 1 MG tablet Take 1 mg by mouth at bedtime. ??? esomeprazole (NEXIUM) 20 MG capsule Take 1 capsule by mouth once daily ??? fluticasone-vilanterol (BREO ELLIPTA) 100-25 MCG/INH inhaler Inhale 1 puff by mouth once daily ??? gabapentin (NEURONTIN) 300 MG capsule Take 300 mg by mouth 2 times daily ??? medroxyPROGESTERone (PROVERA) 10 MG tablet Take 1 tablet by mouth once daily 30 tablet 5 ??? multivitamin daily (THERAGRAN) tablet Take 1 Tab by mouth daily with food. ??? [place]-3 Fatty Acids (FISH OIL PO) Take 1,000 mg by mouth 3 times daily ??? pramipexole (MIRAPAX) 0.5 MG tablet Take 0.5 mg by mouth at bedtime. ??? primidone (MYSOLINE) 50 MG tablet Take 250 mg by mouth at bedtime ??? propranolol CR 24hr (INDERAL LA) 60 MG capsule Take 60 mg by mouth daily. ??? rosuvastatin (CRESTOR) 10 MG tablet Take 10 mg by mouth at bedtime No family history on file. Exam in office per chart review: ECO Gen: NAD, CV: normal perfusion Resp: nonlabored breathing Abd: soft, nontender, hernia absent, no hepatosplenomegaly : NEFG, normal vagina with no lesions, cervix normal, uterus normal, mobile, no appreciable pelvic mass Lymph: no supraclavicular, axillary, or inguinal adenopathy Skin: no rashes or lesions Neuro: oriented x3, essential tremor noted Psychiatric: appropriate affect Imagin11/07/2019 US: TVUS 10 x 4.6 x 4.6, EMS 18mm, R ov 2 x 1.5 x 1.1; L ov 2 x 1.2 x 1.1 ?? 11/10/2019 CT A/P: adenopathy in mesenteric arcade and retroperitoneum , thickened endometrium, shotty adenopathy in bilateral internal iliac chain 12/30/2019 PET: 1. Enlarged uterus with intense FDG uptake within the endometrium but no definite changes on CT. Findings are suspicious for malignancy. 2. No abnormal FDG avid abdominal or pelvic lymph nodes. However, there are a few tiny subcentimeter internal iliac nodes without increased metabolic activity, but too small to characterize by PET. 05/14/2020 TVUS: The uterus is normal in size and contour. The uterus is retroverted. The myometriumis somewhat heterogeneous with tiny cystic spaces. The myometrial/endometrial junction is ill-defined. The endometrium measures within normal limits, however it is irregular in appearance. On the right side the endometrium is more echogenic with a tiny cystic area and vein extending from endometrium to myometrium. Suspicious for endometrial polyp measuring approximately 10x5mm. Both ovaries appear normal. There is minimal free fluid in the posterior cul-de-sac. Assessment/Plan: 71 year old with: postmenopausal bleeding Planned procedure: TOTAL LAPAROSCOPIC HYSTERECTOMY, SALPINGO OOPHORECTOMY--BILATERAL, FROZEN SECTION, POSSIBLE STAGING, POSSIBLE EXPLORATORY LAPAROTOMY Risks and Benefits of surgery were reviewed with the patient during her last clinic appointment, including but not limited to: infection, bleeding, possible need for blood transfusion, damage to surrounding structures (bladder, bowel, ureters). Notable medical/surgical history: - COPD - H/o nasal basal cell carcinoma - Depression - GERD - Constipation - Hypercholesterolemia - Restless legs Fartun Perea MD 05/25/2021 1:07 PM Associated attestation - Kelley Sanford MD - 06/01/2021 9:06 AM CDT Formation Fracturing Operator Onc Attending Addendum I have personally seen and examined the patient and agree with the documentation by Dr. Perea. Planned procedure is total laparoscopic hysterectomy, bilateral salpingo- oophorectomy, possible staging, possible laparotomy. Kelley Sanford MD Rehab Specialist of Gynecologic Oncology Dept of Obstetrics, Gynecology, and Women's Health 06/01/2021 9:05 AM documented in this encounter OR Notes * Brief Op Note - Watson Humphreys MD - 06/01/2021 10:20 AM CDT Brief Post-Operative Note 06/01/2021 Janeth Parker Date of Surgery: 06/01/2021 Surgeon(s) and Role: * Kelley Sanford MD - Primary * Watson Humphreys MD - Resident - Assisting Anesthesiologist: Ahsan Sung MD COST ENGINEER: Joie Boyer APRN-SARA Pre-Op Diagnosis Codes: PMB Postoperative Diagnosis: same as above Procedure(s) and Anesthesia Type: * TOTAL LAPAROSCOPIC HYSTERECTOMY, SALPINGO OOPHORECTOMY--BILATERAL, FROZEN SECTION - General Findings: As expected, frozen path benign Disposition: Home Status: Stable Drains: us catheter Pack: none Complications: none EBL: 50 mL Specimen(s): ID Type Source Tests Collected by Time Destination A : uterus,cervix, bilateral tubes and ovaries Pathology/Cytology Uterus w Cervix PATHOLOGY TISSUE EXAM (STL) Kelley Sanford MD 06/01/2021 1112 Implant(s): * No implants in log * Operative note dictated: no Watson Humphreys MD 06/01/2021 12:15 PM * Operative - Kelley Sanford MD - 06/01/2021 10:20 AM CDT Gynecologic Oncology Operative Note 06/01/2021 12:08 PM Preoperative Diagnosis: persistent postmenopausal bleeding Postoperative Diagnosis: same Procedure: total laparoscopic hysterectomy, bilateral salpingo-oophorectomy Surgeon: Kelley Sanford MD Janitor: Watson Humphreys MD Type of anesthesia: General Complications: none EBL: 50 cc Urine output: 200 cc Drains: none IV Fluids: Please see anesthesia records Indications for procedure: This is 71 year old with intermittent postmenopausal bleeding who presents for definitive surgery. Brief findings: Grossly normal uterus, tubes and ovaries. Intraoperative pathology consultation without evidence of malignancy. Operative Details: After informed consent was obtained, the patient was taken to the operating room with IVF running. After induction of general anesthesia, the patient was placed in dorsal lithotomy position with legsin Leandro stirrups and arms tucked. She was prepped and draped in the usual sterile fashion. A us catheter was placed. A bivalve speculum was placed in the vagina and the anterior lip of the cervix grasped with a single tooth tenaculum. The cervix was gently dilated and a medium-sized V-care uterine manipulator placed. Attention was turned to the abdomen. A vertical 10mm incision was made on the inferior aspect of the umbilicus. The subcutaneous fat wasdivided and the umbilical stalk grasped. The fascia was incised vertically. The peritoneum was entered bluntly with an Allis. The fascia was tagged with 0-vicryl. A Momin cannula was secured. The abdomen was insufflated to 15mm Hg under direct visualization. A 5mm port was placed in the left and right lower quadrants. The 8mm Airseal was placed in the left lower quadrant. Pelvic washings were obtained and sent for specimen. The left round ligament was divided with the Ligasure. The pelvic peritoneum was incised with the monopolar L hook. The retroperitoneal space was developed down to the pararectal space where the ureter was identified. A peritoneal window was developed under the IP ligament which was then sealed and divided with the Ligasure. This was repeated on the right side. The posterior peritoneum was dissected down to the uterosacral ligaments. The bladder flap was developed at the vesicouterine fold. The uterine arteries were skeletonized, sealed, and divided with the Ligasure. The colpotomy was made with the monopolar L hook. The specimen was removed through the vagina. The vaginal cuff was closed with 0 v-loc. The pelvis was irrigated and foundto be hemostatic. The fascia of the umbilical port was closed with 0-vicryl. The skin was closed with 4-0 monocryl. The patient tolerated the procedure well and was taken to recovery in stable condition. Instrument,sponge, and needle counts were correct x2. I was present for the entirety of the procedure. Kelley Sanford MD Rehab Specialist of Gynecologic Oncology Dept of Obstetrics, Gynecology, and Women's Health 06/01/2021 12:08 PM documented in this encounter Plan of Treatment Scheduled Orders Name Type Priority Associated Diagnoses Order Schedule INITIATE RT BRONCHODILATOR PROTOCOL Respiratory Care Routine ONCE for 1 Occurrences starting 06/01/2021 until 06/01/2021 documented as of this encounter Procedures Procedure Name Priority Date/Time Associated Diagnosis Comments CARDIAC RHYTHM STRIP ORDER 06/03/2021 11:23 AM CDT BLOOD GASES ARTERIAL Routine 06/01/2021 1:06 PM CDT Chronic obstructive pulmonary disease, unspecified COPD type (HCC) PATHOLOGY TISSUE EXAM (STL) Routine 06/01/2021 11:12 AM CDT Diagnosis unknown BLOOD TYPE VERIFICATION Routine 06/01/2021 10:25 AM CDT LAPAROSCOPIC TOTAL HYSTERECTOMY (TLH) 06/01/2021 9:25 AM CDT Diagnosis unknown TYPE + SCREEN PANEL GINA 06/01/2021 9 :24 AM CDT Preoperative examination CBC W AUTO DIFFERENTIAL STAT 06/01/2021 9:24 AM CDT Preoperative examination COMPREHENSIVE METABOLIC PANEL Pre-Op 06/01/2021 9:24 AM CDT Preoperative examination documented in this encounter Results * CARDIAC RHYTHM STRIP ORDER (06/03/2021 11:23 AM CDT) Narrative 06/03/2021 11:23 AM CDT Ordered by [...] - 2.0 mmol/L 06/01/2021 1:[address] [facility] Comment:H O2 Saturation Arterial 94 90 - 100 % 06/01/2021 1:[address] [facility] Hemoglobin Arterial 15.6 12.0 - 15.6 gm/dL 06/01/2021 1:[address] [facility] Carboxyhemoglobin Arterial 3.1(H) 0.0 - 2.5 % 06/01/2021 1:[address] [facility] Comment:H Methemoglobin Arterial 0.5 0.0 - 2.0 % 06/01/2021 1:[address] [facility] Oxyhemoglobin Arterial 90 % 06/01/2021 1:[address] [facility] Mode SIMV/PS 06/01/2021 1:[address] [facility] Leandro's Test Positive 06/01/2021 1:[address] [facility] FI O2 30 % 06/01/2021 1:[address] [facility] Tidal Volume 400 mL 06/01/2021 1:[address] [facility] PEEP (cmH2O) 5.0 06/01/2021 1:[address] [facility] Pressure Support (cmH2O) 5 06/01/2021 1:[address] [facility] Respiratory Rate 10.0 06/01/20 21 1:[address] [facility] Sample Site L Radial 06/01/2021 1:[address] [facility] Sample Type Arterial 06/01/2021 1:[address] [facility] [place] [id number] 06/01/2021 1:[address] [facility] Blood, arterial ARTERIAL BLOOD SPECIMEN / Unknown 06/01/2021 1:06 PM CDT 06/01/2021 1:06 PM CDT Ahsan Sung MD LAB - BLOOD GASES ORDERABLES [facility] [address] [phone] * PATHOLOGY TISSUE EXAM (STL) (06/01/2021 11:12 AM CDT) Case Report Surgical Pathology Report ? Case: [id number] ? Authorizing Provider: ??Kelley Sanford MD ?Collected: ? 06/01/2021 11:12 AM ? Ordering Location: ? [facility] ? Received: ?06/01/2021 11:16 AM ? Pathologist: ? Devan Palacios MD ? Specimen: ?Uterus w Cervix, uterus,cervix, bilateral tubes and ovaries ? 06/06/2021 8:[address] [facility] Final Diagnosis Cervix uteri: No significant histopathologic changes. 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 Adenomyosis. Leiomyoma. Fallopian tube right: Benign paratubal cyst. Ovary, right: Fibroma Hilar nodule. Fallopian tube, left: Benign paratubal cyst. Ovary, left: Hilar nodule. 06/06/2021 8:[address] [facility] Gross Description The requisition and [...] in diameter. Sectioning shows unremarkable cut surfaces. Engineering Instructor sections submitted as follows: A1-frozen section control, endomyometrium, A2-anterior cervix, A3-posterior cervix, D3-X52-liepubpu endomyometrium entirely, from lower uterine segment to fundus, K77-N83-isctqamwy endomyometrium entirely from lower uterine segment to fundus, F45-gjjeajbwjf mass and hemorrhagic myometrium, P45-wroqp ovary, L78-arrhi fallopian tube, F91-wmtt ovary, G54-pddr tube. LJ Note: Per pathologist the endometrial cavity is submitted entirely. 06/06/2021 8:[address] [facility] Microscopic Description Microscopic examination was performed. 06/06/2021 8:[address] [facility] Disclaimer All histochemical and/or immunohistochemical results are interpreted with controls that demonstrate appropriate staining reactions before reporting results. Note on use of immunocytochemistry reagents: This test was developed and its performance characteristic determined by [facility], Department of Laboratory Medicine. It has not [...] interpreted with caution. 06/06/2021 8:[address] [facility] Embedded Images 06/06/2021 8:[address] [facility] Pathology/Cytolo gy SPECIMEN FROM UTERINE CERVIX OBTAINED BY HYSTERECTOMY / Unknown 06/01/2021 11:12 AM CDT 06/01/2021 11:16 AM CDT Comment:Pre-op diagnosis: Diagnosis unknown [R69] Kelley Sanford MD LAB - PATHOLOGY/CY TOLOGY ORDERABLES Performing Organization Address City/[facility] Co de Phone Number [facility] [address] [place] [address] * BLOOD TYPE VERIFICATION (06/01/2021 10:25 AM CDT) ABO Rh A POS 06/01/2021 10:[address] [facility] Blood Bank BLOOD SPECIMEN / Unknown Lab Venipuncture / Unknown 06/01/2021 10:25 AM CDT 06/01/2021 10:25 AM CDT Kelley Sanford MD LAB - BLOOD BANK O RDERABLES Performing Organization Address City/[facility]/ZIP Co de Phone Number [facility] [address] [phone] * TYPE + SCREEN PANEL (06/01/2021 9:24 AM CDT) ABO Rh A POS 06/01/2021 10:[address] [facility] Comment:No history; collect retype. Antibody Screen NEG 10:[address] [facility] Blood Bank BLOOD SPECIMEN / Unknown Venipuncture / Unknown 06/01/2021 9:24 AM CDT 06/01/2021 9:36 AM CDT Kelley Sanford MD LAB - BLOOD BANK O ANAIERAFARTUN [facility] [address] [phone] * (ABNORMAL) COMPREHENSIVE METABOLIC PANEL (06/01/2021 9:24 AM CDT) Glucose 90 70 - 105 mg/dL 06/01/2021 10:[address] [facility] Sodium 137 136 - 145 mmol/L 06/01/2021 10:[address] [facility] Potassium 4.2 3.5 - 5.1 mmol/L 06/01/2021 10:10 AM [facility] Chloride 100 98 - 107 mmol/L 06/01/2021 10:10 AM [facility] CO2 32(H) 23 - 31 mmol/L 06/01/2021 10:10 AM [facility] Calcium 9.9 8.4 - 10.4 mg/dL 06/01/2021 10:10 AM [facility] Anion Gap 5(L) 8 - 18 mmol/L 06/01/2021 10:[address] [facility] BUN 11 9.8 - 20.1 mg/dL 06/01/2021 10:[address] [facility] Creatinine 0.69 0.57 - 1.11 mg/dL 06/01/2021 10:10 AM [facility] Alkaline Phosphatase 59 40 - 150 U/L 06/01/2021 10:10 AM [facility] ALT 17 0 - 61 U/L 06/01/2021 10:[address] [facility] AST 19 5 - 34 U/L 06/01/2021 10:[address] [facility] Protein Total 6.6 6.4 - 8.3 gm/dL 06/01/2021 10:[address] [facility] [facility] Albumin 3.9 3.2 - 4.6 gm/dL 06/01/2021 10:[address] [facility] [facility] Bilirubin Total 0.5 0.2 - 1.2 mg/dL 06/01/2021 10:[address] [facility] eGFR by MDRD >60 >60 mL/min/1.7 3m2 06/01/2021 10:[address] [facility] eGFR by MDRD >60 >60 mL/min/1.7 3m2 06/01/2021 10:[address] [facility] Blood BLOOD SPECIMEN / Unknown Venipuncture / Unknown 06/01/2021 9:24 AM CDT 06/01/2021 9:35 AM CDT Kelley Sanford MD LAB - CHEMISTRY OR DERABLES Performing Organization Address City/State/[facility] Co de Phone Number [facility] [address] [place] [address] * (ABNORMAL) CBC W AUTO DIFFERENTIAL (06/01/2021 9:24 AM CDT) WBC 6.3 4.4 - 10.7 x10E9/L 06/01/2021 9:[address] [facility] WBC Corrected 06/01/2021 9:[address] [facility] RBC 5.47(H) 3.80 - 5.20 x10E12/L 06/01/2021 9:[address] [facility] Hemoglobin 15.5 12.0 - 15.6 gm/dL 06/01/2021 9:[address] [facility] Hematocrit 50.1(H) 35.9 - 45.5 % 06/01/2021 9:[address] [facility] MCV 91.6 80.7 - 98.3 fl 06/01/2021 9:[address] [facility] MCH 28.3 26.7 - 34.0 pg 06/01/2021 9:[address] [facility] MCHC 30.9 30.8 - 35.9 gm/dL 06/01/2021 9:[address] [facility] Platelet Count 326 153 - 416 x10E9/L 06/01/2021 9:[address] [facility] RDW-CV 16.4(H) 12.1 - 14.9 % 06/01/2021 9:[address] [facility] MPV 8.6(L) 9.4 - 12.9 fl 06/01/2021 9:[address] [facility] Neutrophils % 47.8 44.0 - 73.0 % 06/01/2021 9:[address] [facility] Lymphocytes % 41.6 20.0 - 43.0 % 06/01/2021 9:[address] [facility] Monocytes % 6.8 5.0 - 13.0 % 06/01/2021 9:[address] [facility] Eosinophils % 2.5 0.0 - 6.0 % 06/01/2021 9:[address] [facility] Basophils % 1.1 0.0 - 2.0 % 06/01/2021 9:[address] [facility] Immature Granulocytes 0.2 0 - 1 % 06/01/2021 9:[address] [facility] Neutrophil Absolute 3.02 2.01 - 7.14 x10E9/L 06/01/2021 9:[address] [facility] Lymphocytes Absolute 2.63 1.07 - 3.94 x10E9/L 06/01/2021 9:[address] [facility] Monocytes Absolute 0.43 0.26 - 1.07 x10E9/L 06/01/2021 9:[address] [facility] Eosinophils Absolute 0.16 0 - 0.47 x10E9/L 06/01/2021 9:[address] [facility] Basophils Absolute 0.07 0 - 0.08 x10E9/L 06/01/2021 9:[address] [facility] Immature Granulocytes Absolute 0.01 0.00 - 0.06 x10E9/L 06/01/2021 9:[address] [facility] nRBC Auto 0 /100 WBC 06/01/2021 9:[address] [facility] Blood BLOOD SPECIMEN / Unknown Venipuncture / Unknown 06/01/2021 9:24 AM CDT 06/01/2021 9:35 AM CDT Kelley Sanford MD LAB - HEMATOLOGY O RDERABLES Performing Organization Address City/State/[facility] Co de Phone Number [facility] [address] [place] [address] documented in this encounter Visit Diagnoses Diagnosis Preoperative examination- Primary Preoperative examination, unspecified Diagnosis unknown Other unknown and unspecified cause of morbidity or mortality Chronic obstructive pulmonary disease, unspecified COPD type (HCC) Diagnosis unknown Other unknown and unspecified cause of morbidity or mortality documented in this encounter Administered Medications Inactive Administered Medications - up to 3 most recent administrations Medication Order MAR Action Action Date Dose Rate Site acetaminophen (Tylenol) tablet 1,000 mg 1,000 mg, Oral, ONCE, 1 dose, On Sun06/01/21 at 1000 $ Given 06/01/2021 9:26 AM CDT 1,000 mg acetaminophen (Tylenol) tablet 650 mg 650 mg, Oral, EVERY 6 HOURS PRN, Mild Pain, Starting on Sun06/01/21 at 1607, Until Sun06/01/21 at 1731, Post-op bupivacaine 0.5% - EPINEPHrine 1:200,000 (PF) injection PRN, Starting on Sun06/01/21 at 1126, Until Sun06/01/21 at 1159, Intra-op $ Given 06/01/2021 11:26 AM CDT 12 mL Operative Site heparin injection 5,000 Units 5,000 Units, Subcutaneous, ONCE, 1 dose, On Sun06/01/21 at 1000 $ Given 06/01/2021 9:27 AM CDT 5,000 Units Abd Left Lower Quadrant ibuprofen (Motrin) tablet 600 mg 600 mg, Oral, EVERY 6 HOURS, 20 doses, First dose on Sun06/01/21 at 1800, Last dose on Sun06/06/21 at 1200, Not to exceed 3200 mg daily from all sources., Post-op lactated ringers infusion at 20 mL/hr, Intravenous, PRE-OP CONTINUOUS, Starting on Sun06/01/21 at 0845, Until Sun06/01/21 at 1731, Pre-op Rate Change 06/01/2021 11:33 AM CDT 900 mL/hr $ New Bag/Syringe 06/01/2021 9:25 AM CDT 20 mL/ hr lactated ringers irrigation PRN, Starting on Sun06/01/21 at 1126, Until Sun06/01/21 at 1159, Intra-op $ Given 06/01/2021 11:26 AM CDT 400 mL Operative Site lidocaine PF (Xylocaine MPF) 1 % injection 0.2 mL 0.2 mL, Infiltration, PRE-OP MULTIPLE, 3 doses, Starting on Sun06/01/21 at 0835, Until Sun06/01/21 at 1731, May be used (0.2 ml locally to anesthetize prior to insertion)., Pre-op $ Given 06/01/2021 9:26 AM CDT 0.2 mL metoclopramide (Reglan) injection 5 mg 5 mg, Intravenous, EVERY 6 HOURS PRN, Nausea/Vomiting, Starting on Sun06/01/21 at 1607, Until Sun06/01/21 at 1731, If no relief from ondansetron (ZOFRAN) or prochlorperazine (COMPAZINE), use metoclopramide (REGLAN) in addition to ondansetron and prochlorperazine., Post-op metoclopramide (Reglan) injection 5 mg 5 mg, Intramuscular, EVERY 6 HOURS PRN, Nausea/Vomiting, Starting on Sun06/01/21 at 1607, Until Sun06/01/21 at 1731, If no relief from ondansetron (ZOFRAN) or prochlorperazine (COMPAZINE), use metoclopramide (REGLAN). Use IM route if IV is unavailable in addition to ondansetron and prochlorperazine., Post-op morphine CR 12hr (MS Contin) tablet 30 mg 30 mg, Oral, ONCE, 1 dose, On Sun06/01/21 at 1000, Do not crush, chew, or cut in half. $ Given 06/01/2021 9:26 AM CDT 30 mg ondansetron (disintegrating) (Zofran ODT) tablet 4 mg 4 mg, Oral, EVERY 6 HOURS PRN, Nausea/Vomiting, Starting on Sun06/01/21 at 1607, Until Sun06/01/21 at 1731, Dissolved orally on tongue Dissolved orally on tongue, Post-op ondansetron (Zofran) injection 4 mg 4 mg, Intravenous, EVERY 6 HOURS PRN, Nausea/Vomiting, Starting on Sun06/01/21 at 1607, Until Sun06/01/21 at 1731, Administer IV if patient is NPO, actively vomiting, or unable to swallow., Post-op oxyCODONE (immediate release) (Roxicodone) tablet 10 mg 10 mg, Oral, EVERY 4 HOURS PRN, Severe Pain, Starting on Sun06/01/21 at 1607, Until Sun06/01/21 at 1731, Allow a repeat dose for severe pain? No, Post-op oxyCODONE (immediate release) (Roxicodone) tablet 5 mg 5 mg, Oral, EVERY 4 HOURS PRN, Moderate Pain, Starting on Sun06/01/21 at 1607, Until Sun06/01/21 at 1731, Post-op phenazopyridine (Pyridium) tablet 200 mg 200 mg, Oral, ONCE, 1 dose, On Sun06/01/21 at 1000 $ Given 06/01/2021 9:26 AM CDT 200 mg prochlorperazine (Compazine) injection 5 mg 5 mg, Intravenous, EVERY 6 HOURS PRN, Nausea/Vomiting, Starting on Sun06/01/21 at 1607, Until Sun06/01/21 at 1731, If no relief from ondansetron (ZOFRAN), use prochlorperazine (COMPAZINE) in addition to ondansetron., Post-op prochlorperazine (Compazine) injection 5 mg 5 mg, Intramuscular, EVERY 6 HOURS PRN, Nausea/Vomiting, Starting on Sun06/01/21 at 1607, Until Sun06/01/21 at 1731, If no relief from ondansetron (ZOFRAN), use prochlorperazine (COMPAZINE) in addition to ondansetron. Use IM route if IV is unavailable., Post-op scopolamine (Transderm-Scop) 1 patch 1 patch, Administer over 72 Hours, ONCE, 1 dose, On Sun06/01/21 at 1000, Apply patch behind the ear, do not cut patch, only 1 patch should be worn at a time and remove old patch before applying new patch.This patch may contain metal and is not compatible with MRI. Notify radiology of patch location upon arrival to MRI. Each patch contains 1.5 mg scopolamine base and is formulated to deliver 1 mg of scopolamine over 72 hours. $ Applied 06/01/2021 9:26 AM CDT 1 patch Behind Left Ear scopolamine patch placement confirmation Transdermal, 2 TIMES DAILY, First dose on Sun05/31/21 at 1430, Until Discontinued, Patient has a patch to be confirmed on transition to inpatient and 2 times daily. documented in this encounter Active and Recently Administered Medications Times are shown in CDT. Scheduled Medication Order 05/30/2021 05/31/2021 06/01/2021 acetaminophen (Tylenol) tablet 1,000 mg (COMPLETED) 1,000 mg, Oral, ONCE, 1 dose, On Sun06/01/21 at 1000 0926 ($ Given - Prov ider: Carmela Cutler RN) albuterol-ipratropium (Duo-Neb) nebulizer solution 3 mL 3 mL, Inhalation, ONCE, 1 dose, On Sun06/01/21 at 1245 1245 (Due) ceFAZolin (Ancef) 2,000 mg in 50 ml IVPB (COMPLETED) 2,000 mg (2 g), at 100 mL/hr, Intravenous, ONCE, 1 dose, On Sun06/01/21 at 1000, Indication for anti-infective therapy: Surgical prophylaxis 1006 ($ Given - Prov ider: Joie Boyer, [employer]INE-[facility]) heparin injection 5,000 Units (COMPLETED) 5,000 Units, Subcutaneous, ONCE, 1 dose, On Sun06/01/21 at 1000 0927 ($ Given - Prov ider: Carmela Cutler RN) ibuprofen (Motrin) tablet 600 mg 600 mg, Oral, EVERY 6 HOURS, 20 doses, First dose on Sun06/01/21 at 1800, Last dose on Sun06/06/21 at 1200, Not to exceed 3200 mg daily from all sources., Post-op lidocaine PF (Xylocaine MPF) 1 % injection 0.2 mL 0.2 mL, Infiltration, PRE-OP MULTIPLE, 3 doses, Starting on Sun06/01/21 at 0835, Until Sun06/01/21 at 1731, May be used (0.2 ml locally to anesthetize prior to insertion)., Pre-op 925 ($ Given - Prov ider: Carmela Cutler RN) magnesium sulfate 2 g in 50 mL bolus (COMPLETED) 2 g, at 150 mL/hr, Administer over 20 Minutes, ONCE, 1 dose, On Sun06/01/21 at 0845, MAXIMUM rate 2g/10min 0955 ($ Given - Prov ider: Joie Boyer, [employer] HELPER MACHINE-[employer]) morphine CR 12hr (MS Contin) tablet 30 mg (COMPLETED) 30 mg, Oral, ONCE, 1 dose, On Sun06/01/21 at 1000, Do not crush, chew, or cut in half. 925 ($ Given - Prov ider: Carmela Cutler, BORIS) naloxone (Narcan) injection 0.04 mg 0.04 mg, Intravenous, POST-OP MULTIPLE, Starting on Sun06/01/21 at 1304, Until Sun06/01/21 at 1731, Notify physician immediately, and mix 0.4 mg Naloxone in 9 mL Normal Saline for slow IV push. Administer dilute Naloxone solution IV very slowly (1 mL over 30 seconds) while observing the patient response and titrating to effect. If no response, call Rapid Response, continue IV Naloxone at the same rate up to a total of 0.8 mg of diluted Naloxone., PACU phenazopyridine (Pyridium) tablet 200 mg (COMPLETED) 200 mg, Oral, ONCE, 1 dose, On Sun06/01/21 at 1000 925 ($ Given - Prov ider: Carmela Cutler RN) scopolamine (Transderm-Scop) 1 patch(Linked Group 1) 1 patch, Administer over 72 Hours, ONCE, 1 dose, On Sun06/01/21 at 1000, Apply patch behind the ear, do not cut patch, only 1 patch should be worn at a time and remove old patch before applying new patch.This patch may contain metal and is not compatible with MRI. Notify radiology of patch location upon arrival to MRI. Each patch contains 1.5 mg scopolamine base and is formulated to deliver 1 mg of scopolamine over 72 hours. 925 ($ Applied - Provider: Carmela Cutler, BORIS) scopolamine patch placement confirmation(Linked Group 1) Transdermal, 2 TIMES DAILY, First dose on Sun05/31/21 at 1430, Until Discontinued, Patient has a patch to be confirmed on transition to inpatient and 2 times daily. 1430 (Due)2100 (Due) 0900 (Due) Continuous Medication Order 05/30/2021 05/31/2021 06/01/2021 lactated ringers infusion at 20 mL/hr, Intravenous, PRE-OP CONTINUOUS, Starting on Sun06/01/21 at 0845, Until Sun06/01/21 at 1731, Pre-op 0925 ($ New Bag/Syri nge - Provider: Carmela Cutler RN)1133 (Rate Change - Provider: Joie Boyer APRN-COST ENGINEER) PRN Medication Order 05/30/2021 05/31/2021 06/01/2021 acetaminophen (Tylenol) tablet 650 mg 650 mg, Oral, EVERY 6 HOURS PRN, Mild Pain, Starting on Sun06/01/21 at 1607, Until Sun06/01/21 at 1731, Post-op bupivacaine 0.5% - EPINEPHrine 1:200,000 (PF) injection (CANCELED) PRN, Starting on Sun06/01/21 at 1126, Until Sun06/01/21 at 1159, Intra-op 1126 ($ Given - Prov ider: Kelley Sanford MD) fentaNYL (PF) (Sublimaze) injection 25 mcg 25 mcg, Intravenous, EVERY 10 MIN PRN, Mild Pain, 4 doses, Starting on Sun06/01/21 at 1304, Until Sun06/01/21 at 1731, Maximum total of 4 doses. If patient reaches max total dose, please consult anesthesiologist prior to further administration of pain meds. Hold pain meds if there are signs of hypoventilation., PACU fentaNYL (PF) (Sublimaze) injection 50 mcg 50 mcg, Intravenous, EVERY 10 MIN PRN, Severe Pain, 4 doses, Starting on Sun06/01/21 at 1304, Until Sun06/01/21 at 1731, Maximum total of 4 doses If patient reaches max total dose, please consult anesthesiologist prior to further administration of pain meds. Hold pain meds if there are signs of hypoventilation., PACU lactated ringers irrigation (CANCELED) PRN, Starting on Sun06/01/21 at 1126, Until Sun06/01/21 at 1159, Intra-op 1126 ($ Given - Prov ider: Kelley Sanford MD) metoclopramide (Reglan) injection 5 mg 5 mg, Intravenous, EVERY 6 HOURS PRN, Nausea/Vomiting, Starting on Sun06/01/21 at 1607, Until Sun06/01/21 at 1731, If no relief from ondansetron (ZOFRAN) or prochlorperazine (COMPAZINE), use metoclopramide (REGLAN) in addition to ondansetron and prochlorperazine., Post-op metoclopramide (Reglan) injection 5 mg 5 mg, Intramuscular, EVERY 6 HOURS PRN, Nausea/Vomiting, Starting on Sun06/01/21 at 1607, Until Sun06/01/21 at 1731, If no relief from ondansetron (ZOFRAN) or prochlorperazine (COMPAZINE), use metoclopramide (REGLAN). Use IM route if IV is unavailable in addition to ondansetron and prochlorperazine., Post-op ondansetron (disintegrating) (Zofran ODT) tablet 4 mg 4 mg, Oral, EVERY 6 HOURS PRN, Nausea/Vomiting, Starting on Sun06/01/21 at 1607, Until Sun06/01/21 at 1731, Dissolved orally on tongue Dissolved orally on tongue, Post-op ondansetron (Zofran) injection 4 mg 4 mg, Intravenous, EVERY 6 HOURS PRN, Nausea/Vomiting, Starting on Sun06/01/21 at 1607, Until Sun06/01/21 at 1731, Administer IV if patient is NPO, actively vomiting, or unable to swallow., Post-op oxyCODONE (immediate release) (Roxicodone) tablet 10 mg 10 mg, Oral, EVERY 4 HOURS PRN, Severe Pain, Starting on Sun06/01/21 at 1607, Until Sun06/01/21 at 1731, Allow a repeat dose for severe pain? No, Post-op oxyCODONE (immediate release) (Roxicodone) tablet 5 mg 5 mg, Oral, EVERY 4 HOURS PRN, Moderate Pain, Starting on Sun06/01/21 at 1607, Until Sun06/01/21 at 1731, Post-op prochlorperazine (Compazine) injection 5 mg 5 mg, Intravenous, EVERY 6 HOURS PRN, Nausea/Vomiting, Starting on Sun06/01/21 at 1607, Until Sun06/01/21 at 1731, If no relief from ondansetron (ZOFRAN), use prochlorperazine (COMPAZINE) in addition to ondansetron., Post-op prochlorperazine (Compazine) injection 5 mg 5 mg, Intramuscular, EVERY 6 HOURS PRN, Nausea/Vomiting, Starting on Sun06/01/21 at 1607, Until Sun06/01/21 at 1731, If no relief from ondansetron (ZOFRAN), use prochlorperazine (COMPAZINE) in addition to ondansetron. Use IM route if IV is unavailable., Post-op Linked Groups Order Group 1: scopolamine (Transderm-Scop) 1 patchJump to med 1 patch, Administer over 72 Hours, ONCE, 1 dose, On Sun06/01/21 at 1000, Apply patch behind the ear, do not cut patch, only 1 patch should be worn at a time and remove old patch before applying new patch.This patch may contain metal and is not compatible with MRI. Notify radiology of patch location upon arrival to MRI. Each patch contains 1.5 mg scopolamine base and is formulated to deliver 1 mg of scopolamine over 72 hours. And scopolamine patch placement confirmationJump to med Transdermal, 2 TIMES DAILY, First dose on Sun05/31/21 at 1430, Until Discontinued, Patient has a patch to be confirmed on transition to inpatient and 2 times daily. documented in this encounter Care Teams Spice Grinder Relationship Specialty Start Date End Date Watson Perry MD [address] [place] [phone] PCP - General 12/03/19 documented as of this encounter
--- OUTSIDE RECORDS SUMMARY | 2024-11-23 15:02 | XMS_ITS | Encounter Summary ---
Author Organization [facility] Address [address] [place] [address] Care Team Providers Care Gold Assayer Name Role Phone Watson Perry MD Primary Care Provider [phone] Reason for Visit * Radiology Services (Routine) - Closed Specialty Diagnoses / Procedures Referred By Contac t Referred To Contact Nuclear Medicine Diagnoses Idiopathic Parkinson's disease (HCC) Procedures NM BRAIN IMAGING KIZZY SCAN Kody Allen MD [address] [place] [address] [place] [address] [facility] Nuclear Medicine [address] [place] [phone] Referral ID Status Reason Start Date Expiration Date Visits Re quested Visits Authorized [id number] Closed 04/16/2024 04/16/2025 1 1 Encounter Details Date Type Department Care Team (Latest Contact Info) Description 05/15/2024 12:41 PM CDT - 05/15/2024 11:59 PM CDT Hospital Encounter [facility] NUCLEAR MEDICINE [address] [place] [phone] Kody Allen MD [address] [place] [address] [address] [place] [address] Discharge Disposition: Home or Self Care Social History Tobacco Use Types Packs/Day Years [...] on file documented as of this encounter Medications at Time of Discharge [...] 1 (one) capsule by mouth once daily furosemide (Lasix) 20 MG tablet Take 0.5 (one-half) tablet by mouth once daily gabapentin (NEURONTIN) 300 MG capsule Take 1 (one) capsule by mouth 2 times daily 12/01/2020 multivitamin daily (THERAGRAN) tablet Take 1 (one) tablet by mouth daily with food [place]-3 Fatty Acids (FISH OIL PO) Take 1,000 mg by mouth 3 times daily pramipexole (MIRAPAX) 0.5 MG tablet Take 1 (one) tablet by mouth at bedtime primidone (Mysoline) 250 MG tablet Take 1 (one) tablet by mouth once daily 12/15/2022 propranolol CR 24hr (INDERAL LA) 60 MG capsule Take 1 (one) capsule by mouth once daily rosuvastatin (CRESTOR) 10 MG tablet Take 1 (one) tablet by mouth at bedtime 11/09/2019 senna (SENOKOT) 8.6 MG tablet Take 2 (two) tablets by mouth once daily 30 tablet 06/01/2021 Trelegy Ellipta 200-62.5-25 MCG/ACT inhaler Inhale 1 (one) puff by mouth once daily 04/16/2024 documented as of this encounter Plan of Treatment Not on file documented as of this encounter Procedures Procedure Name Priority Date/Time Associated Diagnosis Comments NM BRAIN IMAGING KIZZY SCAN Routine 05/15/2024 1:15 PM CDT Idiopathic Parkinson's disease documented in this encounter Results * NM BRAIN IMAGING KIZZY SCAN (05/15/2024 1:15 PM CDT) Anatomical Region Laterality Modality Head Nuclear Medicine 05/15/2024 12:2 5 PM CDT Impressions 05/15/2024 2:24 PM CDT Impression: Abnormal DaTscan study, worse on the left compared to the right, findings supportive of parkinsonian syndromes. > Dictated by Waqas Garcia MD (Hand S[employer]er) 05/15/2024 12:25 PM Adri Mcclure DO have personally reviewed and interpreted this examination/study. > Interpreting Provider: Adri Van DO on 05/15/2024 2:24 PM Narrative 05/15/2024 2:24 PM CDT PROCEDURE: ??NM BRAIN IMAGING KIZZY SCAN, DATE/TIME OF EXAM: ??05/15/2024 9:45 AM, LOCATION ??[facility] INDICATION: G20.A1: Idiopathic Parkinson's disease COMPARISON: None. [...] SCAN, DATE/TIME OF EXAM: 49:45 AM, LOCATION [facility] INDICATION: G20.A1: Idiopathic Parkinson's disease COMPARISON: None. [...] syndromes. > Dictated by Waqas Garcia MD ([employer]er) 05/15/2024 12:25 PM IAdri DO have personally reviewed and interpreted this examination/study. > Interpreting Provider: Adri Van DO on 05/15/2024 2:24 PM Kody Jones MD NM ORDERABLES documented in this encounter Visit Diagnoses Not on filedocumented in this encounter Care Teams Gold Assayer Relationship Specialty Start Date End Date Watson Perry MD [address] [place] [phone] PCP - General 12/03/19 documented as of this encounter
--- OUTSIDE RECORDS SUMMARY | 2024-11-23 15:02 | XMS_ITS | Encounter Summary ---
Author Organization [facility] Address [address] [place] [address] Care Team Providers Care Plant Taxonomy Teacher Name Role Phone Watson Perry MD Primary Care Provider [phone] Reason for Visit * Reason Comments Post-Op surg 06/01 Encounter Details Date Type Department Care Team (Late st Contact Info) Description 06/28/2021 10:50 AM CDT Office Visit [facility] [address] [place] [address] Kelley Sanford MD [address] [facility] [address] [place], [place] [id number] S/P hysterectomy with oophorectomy (Primary Dx) Social History Tobacco Use Types Packs/Day Years [...] Sign Reading Time Taken Comments Blood Pressure 122/68 06/28/2021 10:29 AM CDT Pulse - - Temperature - - Respiratory Rate - - Oxygen Saturation - - Inhaled Oxygen Concentration - - Weight 58.1 kg (128 lb) 06/28/2021 10:29 AM CDT Height 165.1 cm (5' 5 ) 06/28/2021 10:29 AM CDT Body Mass Index 21.3 06/28/2021 10:29 AM CDT documented in this encounter Progress Notes * Kelley Sanford MD - 06/28/2021 10:29 AM CDT [facility] Established Patient Visit Date of Service: 06/28/2021 Patient Name: Janeth Parker Chief Complaint: post op History of Present Illness: Janeth Parker is a 71 year old who presents for a follow up appt s/pHSC, D&C done for appearance of abnormal uterus on imaging as well as some LAD. Pt had been having PMB. Pathology demonstrated endometrial polyp with simple hyperplasia. She was started on progesterone but had a lot of bleeding issues with this so we discontinued. Given the comment of LAD on her initial CT a PET scan was done. This did demonstrate some activity in the uterus though she was recently post op from her D&C and thus it was attributed to this. Ultimately she had another D&C which was benign and she was discharged to follow with benign gynecology. She had return of spotting with thickened endometrium and ultimately decided for hyst. S/p [facility] BSO 06/01/21 with [facility]. Patient reports that she is overall feeling well post. She denies N/V, bowel or bladder issues. [place] spotting, stopped. Denies pain. Medical, Surgical, and Family History reviewed--there have been no interval changes. Review of Systems: Constitutional: denies weight changes Mouth: denies oral ulcers Cardiovascular: denies palpitations, lightheadedness Respiratory: denies cough, difficulty breathing Gastrointestinal: +constipation denies nausea, vomiting, diarrhea, heartburn Genitourinary: denies dysuria or hematuria Musculoskeletal: denies weakness Integumentary: denies skin changes, rash Neurological: denies headache, blurry vision, neuropathy Psychiatric: denies depression, anxiety, sleep disturbance Hematologic/Lymphatic: denies bruising, nosebleeds, bleeding gums Exam: BP 122/68 Ht 5' 5 Wt 128 lb BMI 21.3 kg/m2 ECO Gen: NAD, CV: normal perfusion Resp: nonlabored breathing Abd: soft, incisions healing wellnontender, hernia absent, no hepatosplenomegaly : NEFG, cuff intact digitally and visually Lymph: no supraclavicular, axillary, or inguinal adenopathy Skin: no rashes or lesions Neuro: oriented x3, essential tremor noted Psychiatric: appropriate affect Assessment/Plan: 71 year old s/p [facility] BSO with [facility] Reviewed pathology, copy given May resume care with benign hl7 developer Restrictions to 6 weeks post op I have spent 20 minutes with the patient of which >50% was spent in counseling. Kelley Sanford MD [employer] Operator of Gynecologic Oncology Dept of Obstetrics, Gynecology, and Women's Health 06/28/2021 10:30 AM documented in this encounter Plan of Treatment Not on file documented as of this encounter Visit Diagnoses Diagnosis S/P hysterectomy with oophorectomy- Primary Acquired absence of both cervix and uterus documented in this encounter Care Teams Plant Taxonomy Teacher Relationship Specialty Start Date End Date Watson Perry MD [address] [place] [phone] PCP - General 12/03/19 documented as of this encounter
--- OUTSIDE RECORDS SUMMARY | 2024-11-23 15:02 | XMS_ITS | Encounter Summary ---
Author Organization [facility] Address [address] [place] [address] Care Team Providers Care Workforce Analyst Name Role Phone Watson Perry MD Primary Care Provider [phone] Reason for Referral * Radiology Services (Routine) - Closed Specialty Diagnoses / Procedures Referred By Contac t Referred To Contact Nuclear Medicine Diagnoses Idiopathic Parkinson's disease (HCC) Procedures NM BRAIN IMAGING KIZZY SCAN Kody Allen MD [address] [place] [address] [place] [address] [facility] Nuclear Medicine [address] [place] [phone] Referral ID Status Reason Start Date Expiration Date Visits Re quested Visits Authorized [id number] Closed 04/16/2024 04/16/2025 1 1 Reason for Visit * Reason Comments Establish Care Tremors Encounter Details Date Type Department Care Team (Late st Contact Info) Description 04/16/2024 2:00 PM CDT Office Visit [facility] - Neurology [address] [place] [address], [place] [address] Kody Allen MD [address] [place] [address] [address] [place] [address] Tremor, essential (Primary Dx); Idiopathic Parkinson's disease; Primary parkinsonism Social History Tobacco Use Types Packs/Day Years [...] Pulse 69 04/16/2024 2:05 PM CDT Temperature - - Respiratory Rate - - Oxygen Saturation 93% 04/16/2024 2:05 PM CDT Inhaled Oxygen Concentration - - Weight 80.3 kg (177 lb) 04/16/2024 2:05 PM CDT Height 165.1 cm (5' 5 ) 04/16/2024 2:05 PM CDT Body Mass Index 29.45 04/16/2024 2:05 PM CDT documented in this encounter Patient Instructions * Patient Instructions* Kody Allen MD - 04/16/2024 3:32 PM CDT List of medications to hold before scan Potentially interfering drugs - Amantadine Amoxapine Amphetamine, Dexamphetamine, Methamphetamine Benztropine Bupropion Buspirone Cocaine Mazindol Methylphenidate Norephedrine, Ephedrine, Pseudoephedrine, Phenylephrine Phentermine Phenylpropanolamine Selegiline Sertraline Paroxetine, Fluoxetine, Duloxetine Citalopram, Escitalopram Amfebutamone Modafinil Budipine Fluvoxamine, Venlafaxine Imipramine, Clomipramine Memantine Pimozide, Ziprasidone Xylometazoline Name of Drug Number of Days Amphetamine Adderall, Dexedrine, Dexosyn, Dextrostat, Didrex, ProCentra, Vyvanse - 7 Benztropine, Cogentin 5 days Bupropion, Amfebutamone Aplenzin, Budeprion, Voxra, Zyban 8 days Cocaine 2 days Dexamphetamine Dexedrine, Dexosyn, Dextrostat, Liquadd, ProCentra 7 days Mazindol, Mazanor, Sanorex 3 days Methylametamine Methampex, Methydrine, Pervitin, Temmler 3 days Methylphenidate Concerta, Metadate, Methylin, Ritalin 2 days Modafinil, Provigil 3 days Phentermine Adopex-P, Chelsea-Cap, T-Diet, Zantryl 14 days documented in this encounter Progress Notes * Kody Allen MD - 04/19/2024 5:29 AM CDT I was present with the student throughout the visit and I have verified the documentation of the student including all history, exam, and medical decision- making details. I have personally performed a physical exam and have personally reviewed the data to support my medical decision-making as outlined in the students note and I arrive independentaly at the same conclusion with the exceptions thatare indicated below History Ms. Nguyen is 74 year old with h/o Essential tremor since age 57 seen in clinic for evaluation and management She has been seeing Dr. Covarrubias for tremors since 2018 and referred to [facility] for DBS evaluation She reports activity related tremors have worsened with time and has difficulty with activities such as drinking water from a cup, hand writing, and eating. She has tried Propranolol, with Primidone did not notice any benefit, tried on Topaamx but had side effects and could not tolerate. Tremors are located in her hands family history - PD in father Examination Vitals: 04/16/24 1405 BP: 117/70 Pulse: 69 SpO2: 93% Weight: 80.3 kg (177 lb) Height: 1.651 m (5' 5 ) As below Plan Essential tremor - Continue with Clonazepam 1 mg daily Gabapentin 1 tab twice Primidone 250 mg daily Propranolol 60 mg daily Mild signs of Parkinsonism with imbalance Recommend KIZZY scan Discussed DBS surgery and she will let me know if she wants to proceed Pending MRI Brain DBS protocol W & WO contrast DBS to visualize arteries and veins. Stereotactic CT head Consult Dr. Car Valencia in Neurosurgery clinic. IPG not selected I spent 70 minutes in the evaluation of the patient of which > 50 % of the time was spent in counseling and co-ordination of care. These included explanations of the procedure of deep brain stimulation and subsequent programming visits, of the types of batteries for the patient to choose from and expected risks and benefits of the procedure. All questions were answered. Signed Electronically Kody Jones MD Carry Out Clerk of Neurology I personally spent 60 minutes on 04/16/24 preparing to see the patient (e.g. reviewing chart, reviewof tests), obtaining and/or reviewing the separately obtained history, performing a medically necessary and appropriate examination and evaluation, counseling and educating the patient/family/caregiver, ordering medications, tests, or procedures, documenting in the patient record, and communicatingresults to the patient/family/caregiver.Kody Jones MD Signed Electronically Greg Ortiz Marin Tremor Rating Scale 1-9 Tremor (rate tremor) At rest (in response). For head and trunk, when lying down With posture holding UE: arms outstretched, wrists mildly extended, fingers spread apart LE: legs flexed at hips and knees; foot dorsi-flexed Tongue: when protruded Head and trunk: when sitting or standing With Action(ACT) and Intention(INT): UE: finger to nose and other actions LE: toe to finger in flexed posture Definitions for 1-9 0 = None 1 = Slight. May be intermittent 2 = Moderate amplitude. May be intermittent 3= Marked amplitude 4 = Severe amplitude Face tremor REST - none Tongue tremor REST -no POST - no Voice tremor ACT/INT -no Head tremor REST - no POST - no Right upper extremity tremor REST -no POST - grade 1 ACT/INT grade 2 Left upper extremity tremor REST -no POST - grade 2 ACT/INT - grade 3 Trunk tremor REST -no POST -no Right lower extremity tremor REST POST ACT/INT Left lower extremity tremor REST POST ACT/INT Handwriting Have patient write the standard sentence: ???This is a sample of my best handwriting?? , sign his or her name and write the date. 0 = Normal 1 = Mildly abnormal. Slightly untidy, tremulous 2 = Moderately abnormal. Legible, but with considerable tremor. 3 = Marked abnormal. Illegible 4 = Severely abnormal. Unable to keep pencil or pen on paper without holding hand down with other hand. 11 - 13. Ask the patient to join both points of the various drawings without crossing the lines. Test each hand beginning with the lesser, without leaning the hand or the arm on the table. Definitions for 11-13 0 = Normal 1 = Slightly tremulous. May cross lines occasionally. 2 = Moderately tremulous or crosses lines frequently. 3 = Accomplishes the task with great difficulty. Many errors. 4 = Unable to complete drawing. Drawing A Right Left Drawing B Right Left Drawing C Right Left Pouring Right Left Use firm plastic cups, about 8cm tall, filled with water to 1 cm from top. Ask patient to pour water from one cup to another. Test each hand separately. 0 = Normal 1 = More careful that a person without tremor, but no water is spilled. 2 = Spills a small amount of water (up to 10% of the total amount). 3 = Spills a considerable amount of water (> 10-50%) 4 = Unable to pour water without spilling most of the water. Speaking This includes spastic dysphonia if present 0 = Normal 1 = Mild voice tremulousness when ???nervous?? only 2 = Mild voice tremor, constant 3 = Moderate voice tremor 4 = Severe voice tremor. Some words difficult to understand. Feeding other than liquids 0 = Normal 1 = Mildly normal. Can bring all solids to mouth, spilling only rarely. 2 = Moderately abnormal. Frequent spills of peas and similar foods. May bring head at least senior living to meet food. 3 = Markedly abnormal. Unable to cut or uses hands to eat. 4 = Severely abnormal. Needs help to feed. Bringing liquids to mouth 0 = Normal 1 = Mildly abnormal. Can still use a spoon, but not if it is completely full 2 = Moderately abnormal. Unable to use a spoon; uses cup or glass 3 = Markedly abnormal. Can drink from cup or glass, but needs two hands 4 = Severely abnormal. Must us a straw. Hygiene 0 = Normal 1 = Mildly abnormal. Able to do everything, but is more careful than the average person 2 = Moderately abnormal. Able to do everything but with errors; uses electric razor because of tremor 3 = Markedly abnormal. Unable to do most fine tasks, such as putting on lipstick or shaving (even with electric razor), unless using two hands. 4 = Severely abnormal. Unable to do any fine-movement tasks. Dressing 0 = Normal 1 = Mildly abnormal. Legible. Continues to write letters 2 = Moderately abnormal. Able to do everything, but with errors. 3 = Markedly abnormal. Needs some help with buttoning or other activities, such as tying shoelaces. 4 = Severely abnormal. Requires assistance even for gross motor activities. Writing 0 = Normal 1 = Mildly abnormal. Legible. Continues to write letters 2 = Moderately abnormal. Legible, but no longer writes letters. 3 = Markedly abnormal. Illegible 4 = Severely abnormal. Unable to sign checks or other documents requiring a signature. Working 0 = Tremor does not interfere with job 1 = Able to work, but needs to be more careful than the average person 2 = Able to do everything, but with errors. Poorer than usual performance because of tremor 3 = Unable to do regular job. May have changed to a different job because of tremor. 4 = Unable to do any outside job; housework is very limited. * Kody Allen MD - 04/16/2024 2:48 PM CDT I was present with the student throughout the visit and I have verified the documentation of the student including all history, exam, and medical decision- making details. I have personally performed a physical exam and have personally reviewed the data to support my medical decision-making as outlined in the students note and I arrive independentaly at the same conclusion with the exceptions thatare indicated below History Ms. Nguyen is 74 year old with h/o Essential tremor since age 57 seen in clinic for evaluation and management She has been seeing Dr. Covarrubias for tremors since 2018 and referred to [facility] for DBS evaluation She reports activity related tremors have worsened with time and has difficulty with activities such as drinking water from a cup, hand writing, and eating. She has tried Propranolol, with Primidone did not notice any benefit, tried on Topaamx but had side effects and could not tolerate. Tremors are located in her hands family history - PD in father Examination Vitals: 04/16/24 1405 BP: 117/70 Pulse: 69 SpO2: 93% Weight: 80.3 kg (177 lb) Height: 1.651 m (5' 5 ) As below Plan Essential tremor - Continue with Clonazepam 1 mg daily Gabapentin 1 tab twice Primidone 250 mg daily Propranolol 60 mg daily Mild signs of Parkinsonism with imbalance Recommend KIZZY scan Discussed DBS surgery and she will let me know if she wants to proceed Pending MRI Brain DBS protocol W & WO contrast DBS to visualize arteries and veins. Stereotactic CT head Consult Dr. Car Valencia in Neurosurgery clinic. IPG not selected I spent 70 minutes in the evaluation of the patient of which > 50 % of the time was spent in counseling and co-ordination of care. These included explanations of the procedure of deep brain stimulation and subsequent programming visits, of the types of batteries for the patient to choose from and expected risks and benefits of the procedure. All questions were answered. Signed Electronically Kody Jones MD Carry Out Clerk of Neurology I personally spent 60 minutes on 04/16/24 preparing to see the patient (e.g. reviewing chart, reviewof tests), obtaining and/or reviewing the separately obtained history, performing a medically necessary and appropriate examination and evaluation, counseling and educating the patient/family/caregiver, ordering medications, tests, or procedures, documenting in the patient record, and communicatingresults to the patient/family/caregiver.Kody Jones MD Signed Electronically Greg Ortiz Marin Tremor Rating Scale 1-9 Tremor (rate tremor) At rest (in response). For head and trunk, when lying down With posture holding UE: arms outstretched, wrists mildly extended, fingers spread apart LE: legs flexed at hips and knees; foot dorsi-flexed Tongue: when protruded Head and trunk: when sitting or standing With Action(ACT) and Intention(INT): UE: finger to nose and other actions LE: toe to finger in flexed posture Definitions for 1-9 0 = None 1 = Slight. May be intermittent 2 = Moderate amplitude. May be intermittent 3= Marked amplitude 4 = Severe amplitude Face tremor REST - none Tongue tremor REST -no POST - no Voice tremor ACT/INT -no Head tremor REST - no POST - no Right upper extremity tremor REST -no POST - grade 1 ACT/INT grade 2 Left upper extremity tremor REST -no POST - grade 2 ACT/INT - grade 3 Trunk tremor REST -no POST -no Right lower extremity tremor REST POST ACT/INT Left lower extremity tremor REST POST ACT/INT Handwriting Have patient write the standard sentence: ???This is a sample of my best handwriting?? , sign his or her name and write the date. 0 = Normal 1 = Mildly abnormal. Slightly untidy, tremulous 2 = Moderately abnormal. Legible, but with considerable tremor. 3 = Marked abnormal. Illegible 4 = Severely abnormal. Unable to keep pencil or pen on paper without holding hand down with other hand. 11 - 13. Ask the patient to join both points of the various drawings without crossing the lines. Test each hand beginning with the lesser, without leaning the hand or the arm on the table. Definitions for 11-13 0 = Normal 1 = Slightly tremulous. May cross lines occasionally. 2 = Moderately tremulous or crosses lines frequently. 3 = Accomplishes the task with great difficulty. Many errors. 4 = Unable to complete drawing. Drawing A Right Left Drawing B Right Left Drawing C Right Left Pouring Right Left Use firm plastic cups, about 8cm tall, filled with water to 1 cm from top. Ask patient to pour water from one cup to another. Test each hand separately. 0 = Normal 1 = More careful that a person without tremor, but no water is spilled. 2 = Spills a small amount of water (up to 10% of the total amount). 3 = Spills a considerable amount of water (> 10-50%) 4 = Unable to pour water without spilling most of the water. Speaking This includes spastic dysphonia if present 0 = Normal 1 = Mild voice tremulousness when ???nervous?? only 2 = Mild voice tremor, constant 3 = Moderate voice tremor 4 = Severe voice tremor. Some words difficult to understand. Feeding other than liquids 0 = Normal 1 = Mildly normal. Can bring all solids to mouth, spilling only rarely. 2 = Moderately abnormal. Frequent spills of peas and similar foods. May bring head at least senior living to meet food. 3 = Markedly abnormal. Unable to cut or uses hands to eat. 4 = Severely abnormal. Needs help to feed. Bringing liquids to mouth 0 = Normal 1 = Mildly abnormal. Can still use a spoon, but not if it is completely full 2 = Moderately abnormal. Unable to use a spoon; uses cup or glass 3 = Markedly abnormal. Can drink from cup or glass, but needs two hands 4 = Severely abnormal. Must us a straw. Hygiene 0 = Normal 1 = Mildly abnormal. Able to do everything, but is more careful than the average person 2 = Moderately abnormal. Able to do everything but with errors; uses electric razor because of tremor 3 = Markedly abnormal. Unable to do most fine tasks, such as putting on lipstick or shaving (even with electric razor), unless using two hands. 4 = Severely abnormal. Unable to do any fine-movement tasks. Dressing 0 = Normal 1 = Mildly abnormal. Legible. Continues to write letters 2 = Moderately abnormal. Able to do everything, but with errors. 3 = Markedly abnormal. Needs some help with buttoning or other activities, such as tying shoelaces. 4 = Severely abnormal. Requires assistance even for gross motor activities. Writing 0 = Normal 1 = Mildly abnormal. Legible. Continues to write letters 2 = Moderately abnormal. Legible, but no longer writes letters. 3 = Markedly abnormal. Illegible 4 = Severely abnormal. Unable to sign checks or other documents requiring a signature. Working 0 = Tremor does not interfere with job 1 = Able to work, but needs to be more careful than the average person 2 = Able to do everything, but with errors. Poorer than usual performance because of tremor 3 = Unable to do regular job. May have changed to a different job because of tremor. 4 = Unable to do any outside job; housework is very limited. * Anjana Guillory - 04/16/2024 2:00 PM CDT Neurological History and Exam Note Template Chief Complaint Patient presents with [facility] Tremors CC: DBS evaluation for essential Tremor, [facility] Patient is a 74 year-old F, right hand dominance, with significant history of RLS, COPD on 3L of O2, irregular heartrate. Presents to the neurology service for evaluation of essential tremor and possible DBS evaluation. HISTORY OF PRESENT ILLNESS: (HPI): Date of onset: 10 years ago Description: Patient states that tremors have been worsening since 10 years ago. She now has more issues carrying objects and with activities such as feeding herself and writing. She notes that she has also had increasing weakness in her whole body. She does not note any dizziness or lightheadedness. She denies headaches. She denies any improvement with heavy weightss. Location: predominantly in her hands, sometimes feels like her whole body is shaking Associated features: (bolded ones are applicable): nausea, vomiting, increased sweating, feeling hot, heart beating fast, fear of falling, balance problems, blurred vision, double vision, hearing loss, ringing bells in the ears (tinnitus), slurred speech, weakness (which limb and what distribution), tingling and numbness (where), bladder function changes, etc. Duration: 10 years Frequency: continuous Last episode: n/a Triggering factors:none particularly noted Risk factors:family hx of parkinsons and stroke Relieving factors: none noted Therapy used currently: propranolol 60mg BID and primidone 250mg qhs Side effects to current therapy: none reported Previous work-up: has been seeing current neurologist for ~5 years and has not noted any previous work-up that stands out; she has had her thyroid checked PAST MEDICAL HISTORY: Past Medical History: Diagnosis Date Abnormal Pap smear of cervix Actinic keratoses Adjustment disorder with anxiety Benign essential tremor COPD (chronic obstructive pulmonary disease) (HCC) Functional constipation GERD (gastroesophageal reflux disease) Hypercholesterolemia Insomnia Irregular heartbeat RLS (restless legs syndrome) Skin cancer of nose RLS treated with clonazepam COPD treated with trelegy Irregular heartbeat propranolol PAST SURGICAL HISTORY Past Surgical History: Procedure Laterality Date Breast Lumpectomy right- non-cancerous Bunionectomy HYSTERECTOMY, TOTAL LAPAROSCOPIC Bilateral 06/01/2021 Bilateral; TOTAL LAPAROSCOPIC HYSTERECTOMY, SALPINGO OOPHORECTOMY--BILATERAL, FROZEN SECTION HYSTEROSCOPY N/A 12/15/2019 N/A; HYSTEROSCOPY WITH DILATION & CURETTAGE HYSTEROSCOPY N/A 05/31/2020 N/A; HYSTEROSCOPY WITH DILATION & CURETTAGE MOH'S SURGERY nose SURGICAL HISTORY OF R ELBOW SURGICAL HISTORY OF 6-2-10 full thickness skin graft to nose cartilage graft local tissue rt ear SURGICAL HISTORY OF right thumb surgery - hip replacement 08/2023 MEDICATIONS: Current, previous, including OTC medications and vitamins, supplements. acetaminophen (TYLENOL) 500 MG tablet Calcium Carb-Cholecalciferol (CALCIUM 600 + D PO) citalopram (CELEXA) 20 MG tablet clonazePAM (KLONOPIN) 1 MG tablet esomeprazole (NEXIUM) 20 MG capsule furosemide (Lasix) 20 MG tablet gabapentin (NEURONTIN) 300 MG capsule multivitamin daily (THERAGRAN) tablet Hart-3 Fatty Acids (FISH OIL PO) pramipexole (MIRAPAX) 0.5 MG tablet primidone (Mysoline) 250 MG tablet propranolol CR 24hr (INDERAL LA) 60 MG capsule rosuvastatin (CRESTOR) 10 MG tablet senna (SENOKOT) 8.6 MG tablet Trelegy Ellipta 200-62.5-25 MCG/ACT inhaler - Patient reports unknown start date of propranolol (started for heartrate after digoxin) ALLERGY All, including the reaction and the severity of the reaction. Allergies Allergen Reactions Ibu [Ibuprofen Micronized] Rash No other allergies SOCIAL HISTORY: Work, Social status, tobacco use, work, etoh and drug use. Social History Socioeconomic History Marital status: Spouse name: Not on file Number of children: Not on file Years of education: Not on file Highest education level: Not on file Occupational History Not on file Tobacco Use Smoking status: Every Day Packs/day: 0.25 Years: 40.00 Additional pack years: 0.00 Total pack years: 10.00 Types: Cigarettes Smokeless tobacco: Never Tobacco comments: 5-6 cigarettes per day Vaping Use Vaping Use: Never used Substance and Sexual Activity Alcohol use: No Drug use: No Sexual activity: Not Currently Partners: Male control/protection: None Other Topics Concern Not on file Social History Narrative Not on file Social Determinants of Health Financial Resource Strain: Not on file Food Insecurity: Not on file Transportation Needs: Not on file Stress: Not on file Housing Stability: Not on file Stopped smoking in May 2020 (started 1977, 1/4 pack/day) Does not drink alcohol regularly FAMILY HISTORY: No family history on file. Mother: skin cancer Father: parkinsonism Brother: leukemia/lymphoma Maternal Grandmother: diabetes REVIEW OF SYMPTOMS: Symptoms within the past 90 days include those in bold type. General: Tiredness, fatigue, fever Skin: rash, abnormal color, cafe- au-lait spots, hair texture, recurrent sores or infections, hives, ulcers, scars. Head: Headache, recent trauma or falls (fell out of bed and broke hip when getting up to go to bathroom) Ears: Infection, drainage, loss of hearing. Eyes: Changes in vision, pain, double vision, droopy eyelid, infection, drainage. Neck: Soreness, problems swallowing, hoarseness, stiffness, swollen glands, goiter or enlargement of thyroid gland. Respiratory: Cough, chest pain, wheezing, pneumonia, short of breath, erratic breathing pattern at night. Cardiac: Rapid heartbeat (not happened recently), shortness of breath, palpitations, irregular heartbeat, fainting spells, increased sweating, ankle/knee swelling. GI: nausea, vomiting, diarrhea, constipation, heartburn, difficulty swallowing, recurrent abdominalpain or cramps, change in consistency or color of stool, blood in stool/bowel movements. : Blood or pain when urinating, difficulty urinating, bedwetting, frequent urination. MS: Cramps, muscle pain (legs), muscle weakness, neck pain, back pain, joint pain, joint swelling, curvature of back, injury, outturned foot Psych: anxiety, sleep disturbances, depression, nervousness, emotional instability, loss of appetite. Neuro: Headache, dizziness, vertigo, light headedness, blackout spells, seizure, double vision, weakness of arm or leg, loss of coordination or balance, tremors, tingling sensation (in toes), numbness in fingers, toes or around lips, memory problems, speech changes, changes in hand writing. Exam Vital signs: BP, Pulse, Temp, Weight Vitals: 04/16/24 1405 BP: 117/70 Pulse: 69 SpO2: 93% Weight: 80.3 kg (177 lb) Height: 1.651 m (5' 5 ) Physical Exam General - Appears stated age, NAD, noncachectic HEENT - NC/AT, PERRL, EOMI, clear conjunctivae, nares patent, throat without erythema or exudate, moist mucous membranes, normal dentition Neck - Supple, no LAD, no JVD, no thyromegaly Back - Normal curvature, no CVA tenderness Chest - CTAB no w/c/r, no use of accessory muscles, on 3L O2 NC CV - RRR no murmurs, rubs, or gallops, radial pulses 2/4, good capillary refill Musculoskeletal - Moves all four extremities spontaneously Ext - No c/c/e except for 2+ edema right lower extremity and 1+ edema right knee Skin - No rashes, lesions, petichiae/ecchymoses, or jaundice Psych - Appropriate mood and affect Neurological exam: Mental status: Alert, awake, responsive, oriented to time and place and person, attentive, pleasant Language: Fluent, good naming, no dysarthria and no aphasia. Cranial nerves: CN II: Pupils are normal reactive to light CN III- through : EOM: full, normal visual white No ptosis, no VF cut CN V: Normal facial sensation and good masseter CN VII: no facial weakness or asymmetry. Normal eyes closure and normal air holding CN VIII: Normal hearing bilaterally. CN IX, X: Normal palate elevation and sensation CNXII: Normal tongue protruding, No tongue weakness or fasciculation???s or atrophy Motor: Tone: Normal tone, no spasticity, minor right wrist rigidity Bulk: Normal muscle bulk, no atrophy or hypertrophy. No contractures. Muscle strength is Neck Flexors 5 Neck extensors 5 SA 4 4 (R/L) EF 5 5 (R/L) EE 4 4 (R/L) WE 5 5 (R/L) WF 5 5 (R/L) APB 5 5 (R/L) HF 5 5 (R/L) KE 5 5 (R/L) KF 5 5 (R/L) ADF 5 5 (R/L) DTR or Muscle Stretch Reflexes: BR: 1/1 (R/L), TC: 2/1 (R/L), BR 1/1 (R/L) QC 1/1 (R/L), AJ 2/2 (R/L) Sensory exam: UE: Normal touch in the hands throughout bilaterally. LE: Normal touch at the toes and throughout bilaterally. Cerebellar exam: Normal JAYLON in the hands and normal heel toes in the feet bilaterally, bradykinesiafor finger tapping and dysdiadochokinesia, mild- moderate intention tremor on finger-nose test; intact heel-carrasco cerebellar Mild resting tremor and moderate intention tremor Gait: ambulates with walker; shuffles with turns, bradykinesia with walking, short steps, Romberg deferred Imaging/Labs: None collected for this visit. Impression: This is a 74 year old y/o female with symptoms of essential tremor and parkinsonian symptoms, with likely and previously established diagnosis of essential tremor as well as a high suspicion for Parkinson's given symptoms of bradykinesia, impaired gait, and family history. Other related diagnoses: RLS Plan: List orders and plan in order of importance - KIZZY scan for parkinson's to elucidate etiology of some of symptoms; - Once decide that would like to proceed with work-up for DBS surgery, contact office and will order CT, MRI needed for neurosurgery work-up and place consult for neurosurgery - will need medical clearance from PCP if decide to proceed as well - continue current primidone 250mg and propranolol 60mg regimen, can consider increasing dosages should patient decide against surgery Associated attestation - Kody Allen MD - 04/19/2024 5:30 AM CDT I was present with the student throughout the visit and I have verified the documentation of the student including all history, exam, and medical decision- making details. I have personally performed a physical exam and have personally reviewed the data to support my medical decision-making as outlined in the students note and I arrive independentaly at the same conclusion with the exceptions thatare indicated below History Ms. Nguyen is 74 year old with h/o Essential tremor since age 57 seen in clinic for evaluation and management She has been seeing Dr. Covarrubias for tremors since 2018 and referred to [facility] for DBS evaluation She reports activity related tremors have worsened with time and has difficulty with activities such as drinking water from a cup, hand writing, and eating. She has tried Propranolol, with Primidone did not notice any benefit, tried on Topaamx but had side effects and could not tolerate. Tremors are located in her hands family history - PD in father Examination Vitals: 04/16/24 1405 BP: 117/70 Pulse: 69 SpO2: 93% Weight: 80.3 kg (177 lb) Height: 1.651 m (5' 5 ) As below Plan Essential tremor - Continue with Clonazepam 1 mg daily Gabapentin 1 tab twice Primidone 250 mg daily Propranolol 60 mg daily Mild signs of Parkinsonism with imbalance Recommend KIZZY scan Discussed DBS surgery and she will let me know if she wants to proceed Pending MRI Brain DBS protocol W & WO contrast DBS to visualize arteries and veins. Stereotactic CT head Consult Dr. Car Valencia in Neurosurgery clinic. IPG not selected I spent 70 minutes in the evaluation of the patient of which > 50 % of the time was spent in counseling and co-ordination of care. These included explanations of the procedure of deep brain stimulation and subsequent programming visits, of the types of batteries for the patient to choose from and expected risks and benefits of the procedure. All questions were answered. Signed Electronically Kody Jones MD Carry Out Clerk of Neurology I personally spent 60 minutes on 04/16/24 preparing to see the patient (e.g. reviewing chart, reviewof tests), obtaining and/or reviewing the separately obtained history, performing a medically necessary and appropriate examination and evaluation, counseling and educating the patient/family/caregiver, ordering medications, tests, or procedures, documenting in the patient record, and communicatingresults to the patient/family/caregiver.Kody Jones MD Signed Electronically Greg Ortiz Marin Tremor Rating Scale 1-9 Tremor (rate tremor) At rest (in response). For head and trunk, when lying down With posture holding UE: arms outstretched, wrists mildly extended, fingers spread apart LE: legs flexed at hips and knees; foot dorsi-flexed Tongue: when protruded Head and trunk: when sitting or standing With Action(ACT) and Intention(INT): UE: finger to nose and other actions LE: toe to finger in flexed posture Definitions for 1-9 0 = None 1 = Slight. May be intermittent 2 = Moderate amplitude. May be intermittent 3= Marked amplitude 4 = Severe amplitude Face tremor REST - none Tongue tremor REST -no POST - no Voice tremor ACT/INT -no Head tremor REST - no POST - no Right upper extremity tremor REST -no POST - grade 1 ACT/INT grade 2 Left upper extremity tremor REST -no POST - grade 2 ACT/INT - grade 3 Trunk tremor REST -no POST -no Right lower extremity tremor REST POST ACT/INT Left lower extremity tremor REST POST ACT/INT Handwriting Have patient write the standard sentence: ???This is a sample of my best handwriting?? , sign his or her name and write the date. 0 = Normal 1 = Mildly abnormal. Slightly untidy, tremulous 2 = Moderately abnormal. Legible, but with considerable tremor. 3 = Marked abnormal. Illegible 4 = Severely abnormal. Unable to keep pencil or pen on paper without holding hand down with other hand. 11 - 13. Ask the patient to join both points of the various drawings without crossing the lines. Test each hand beginning with the lesser, without leaning the hand or the arm on the table. Definitions for 11-13 0 = Normal 1 = Slightly tremulous. May cross lines occasionally. 2 = Moderately tremulous or crosses lines frequently. 3 = Accomplishes the task with great difficulty. Many errors. 4 = Unable to complete drawing. Drawing A Right Left Drawing B Right Left Drawing C Right Left Pouring Right Left Use firm plastic cups, about 8cm tall, filled with water to 1 cm from top. Ask patient to pour water from one cup to another. Test each hand separately. 0 = Normal 1 = More careful that a person without tremor, but no water is spilled. 2 = Spills a small amount of water (up to 10% of the total amount). 3 = Spills a considerable amount of water (> 10-50%) 4 = Unable to pour water without spilling most of the water. Speaking This includes spastic dysphonia if present 0 = Normal 1 = Mild voice tremulousness when ???nervous?? only 2 = Mild voice tremor, constant 3 = Moderate voice tremor 4 = Severe voice tremor. Some words difficult to understand. Feeding other than liquids 0 = Normal 1 = Mildly normal. Can bring all solids to mouth, spilling only rarely. 2 = Moderately abnormal. Frequent spills of peas and similar foods. May bring head at least senior living to meet food. 3 = Markedly abnormal. Unable to cut or uses hands to eat. 4 = Severely abnormal. Needs help to feed. Bringing liquids to mouth 0 = Normal 1 = Mildly abnormal. Can still use a spoon, but not if it is completely full 2 = Moderately abnormal. Unable to use a spoon; uses cup or glass 3 = Markedly abnormal. Can drink from cup or glass, but needs two hands 4 = Severely abnormal. Must us a straw. Hygiene 0 = Normal 1 = Mildly abnormal. Able to do everything, but is more careful than the average person 2 = Moderately abnormal. Able to do everything but with errors; uses electric razor because of tremor 3 = Markedly abnormal. Unable to do most fine tasks, such as putting on lipstick or shaving (even with electric razor), unless using two hands. 4 = Severely abnormal. Unable to do any fine-movement tasks. Dressing 0 = Normal 1 = Mildly abnormal. Legible. Continues to write letters 2 = Moderately abnormal. Able to do everything, but with errors. 3 = Markedly abnormal. Needs some help with buttoning or other activities, such as tying shoelaces. 4 = Severely abnormal. Requires assistance even for gross motor activities. Writing 0 = Normal 1 = Mildly abnormal. Legible. Continues to write letters 2 = Moderately abnormal. Legible, but no longer writes letters. 3 = Markedly abnormal. Illegible 4 = Severely abnormal. Unable to sign checks or other documents requiring a signature. Working 0 = Tremor does not interfere with job 1 = Able to work, but needs to be more careful than the average person 2 = Able to do everything, but with errors. Poorer than usual performance because of tremor 3 = Unable to do regular job. May have changed to a different job because of tremor. 4 = Unable to do any outside job; housework is very limited. documented in this encounter Plan of Treatment Not on file documented as of this encounter Results * NM BRAIN IMAGING KIZZY SCAN (05/15/2024 1:15 PM CDT) Anatomical Region Laterality Modality Head Nuclear Medicine 05/15/2024 12:2 5 PM CDT Impressions 05/15/2024 2:24 PM CDT Impression: Abnormal DaTscan study, worse on the left compared to the right, findings supportive of parkinsonian syndromes. > Dictated by Waqas Garcia MD (Centerless Grinding Machine Adjuster) 05/15/2024 12:25 PM Adri Mcclure DO have personally reviewed and interpreted this examination/study. > Interpreting Provider: Adri Van DO on 05/15/2024 2:24 PM Narrative 05/15/2024 2:24 PM CDT PROCEDURE: ??NM BRAIN IMAGING KIZZY SCAN, DATE/TIME OF EXAM: ??05/15/2024 9:45 AM, LOCATION ??[facility] INDICATION: G20.A1: Idiopathic Parkinson's disease COMPARISON: None. [...] SCAN, DATE/TIME OF EXAM: 49:45 AM, LOCATION [facility] INDICATION: G20.A1: Idiopathic Parkinson's disease COMPARISON: None. [...] syndromes. > Dictated by Waqas Garcia MD (Centerless Grinding Machine Adjuster) 05/15/2024 12:25 PM Adri Mcclure DO have personally reviewed and interpreted this examination/study. > Interpreting Provider: Adri Van DO on 05/15/2024 2:24 PM Kody Jones MD NM ORDERABLES documented in this encounter Visit Diagnoses Diagnosis Tremor, essential- Primary Essential and other specified forms of tremor Idiopathic Parkinson's disease (HCC) Paralysis agitans Primary parkinsonism (HCC) Paralysis agitans Idiopathic Parkinson's disease (HCC) Paralysis agitans documented in this encounter Care Teams Workforce Analyst Relationship Specialty Start Date End Date Watson Perry MD [address] [place] [phone] PCP - General 12/03/19 documented as of this encounter
--- OUTSIDE RECORDS SUMMARY | 2024-11-23 15:02 | XMS_ITS | Clinical Summary ---
Author Organization [facility] Address [address] [place] [address] Phone Care Team Providers Care Financial Controller Name Role Phone LYLA COLEMAN MD Primary Care Provider [phone] Reason for Visit and Chief Complaint CHART UPDATE Problems Includes: Problems addressed during this encounter and other active Problems All Visits Onset Date Resolved Date Provider Condition S tatus Pain in the Right Foot 04/07/2024 KAITLIN ACOSTA DO Active Last Documented On 4 9:37AM ; [facility] Disorder of Muscle Weakness (Generalized) 02/26/2024 IDA COLLINS TARIFF EXPERT-C Active Last Documented On 4 9:46AM ; [facility] Synovial Cyst of Popliteal Spaces Bilateral 02/26/2024 IDA MANCUSO FN P-C Active Last Documented On 4 4:13PM ; [facility] Joint Pain in the Right Knee 01/14/2024 ARTEMIO Bolanos Active Last Documented On 4 1:24PM ; [facility] Generalized Anxiety Disorder 10/25/2021 LYLA COLEMAN MD Active Last Documented On 1 2:02AM ; [facility] Note: Unchanged Osteoarthritis Localized Eun jian Right 1st Mtp Joint 04/15/2020 LYLA COLEMAN MD Active Last Documented On 0 2:51PM ; [facility] Note: Unchanged Actinic Keratosis 01/15/2018 LYLA COLEMAN MD Active Last Documented On 8 11:45PM ; [facility] Note: Unchanged Hypercholesterolemia 03/18/2017 LYLA COLEMAN MD Active Last Documented On 7 11:11PM ; [facility] Note: Unchanged Constipation Functional 03/20/2016 LYLA FROST MD Active Last Documented On 6 12:02AM ; [facility] Note: Unchanged Chronic Obstructive Pulmonar y Disease Moderate 03/20/2016 LYLA COLEMAN MD Active Last Documented On 6 12:02AM ; [facility] Note: Unchanged Nicotine Dependence in Remission 03/20/2016 HOLLIS COLEMAN MD Active Last Documented On 6 12:02AM ; [facility] Note: Unchanged Esophageal Reflux Without Esophagitis 11/18/2015 LYLA COLEMAN MD Active Last Documented On 5 4:41PM ; [facility] Note: Unchanged Persistent Insomnia 11/18/2015 LYLA COLEMAN MD Active Last Documented On 5 4:41PM ; [facility] Note: Unchanged Familial (Benign Essential) Tremor 06/19/2013 T RIC COLEMAN MD Active Last Documented On 4 10:00AM ; [facility] Note: Unchanged Palpitations 09/05/2012 MARLYS VILLAGOMEZ MD Ac tive Last Documented On 2 10:21AM ; [facility] Note: Unchanged Restless Legs Syndrome 09/05/2012 MARLYS VILLAVICENCIO MD Active Last Documented On 2 10:21AM ; [facility] Note: Unchanged Plan of Treatment Pending Tests Order Diagnosis Results Due Ordering Pb jacobsen Lab A1C HGB (GLYCO HEMOGLOBIN) 10/06/23 LYLA COLEMAN MD Last Documented On 4 1:25PM ; [facility] Lab LIPID PANEL 10/06/23 LYLA GARG MD Last Documented On 4 1:25PM ; [facility] Lab CMP 10/06/23 LYLA Cowan MD Last Documented On 4 1:25PM ; [facility] Lab CBC WITH DIFF 10/06/23 LYLA SHAFFER MD Last Documented On 4 1:25PM ; [facility] Assessments Includes: Assessments from this encounter No Assessments Recorded Medical Equipment - Implanted Devices Includes: Current Devices No Medical Equipment Recorded Medications Includes: Medications discussed during this encounter and other current Medications Current Medications (continue as prescribed) Rosuvastatin Calcium 10 MG Oral Tablet 05/09/2024 Provider: LYLA COLEMAN MD Diagnosis: Pure hypercholes terolemia, unspecified TAKE 1 TABLET BY MOUTH AT BEDTIME Last Documented On 05/09/2024 1:18PM By HOLLIS COLEMAN MD ; [facility] traMADol HCl 50 MG Oral Tablet 03/19/2024 Provider: ARTEMIO Bolanos Diagnosis: Pain in right kn ee One tablet four times a day Last Documented On 1:25PM By Artemio Vincent PA-C ; [facility] Albuterol-Budesonide 90-80 MCG/ACT Inhalation Aerosol 02/26/2024 Provider: Diagnosis: 2 puffs every 6 hrs PRN Last Documented On 02/26/2024 4:12PM By Bartolo DEL ANGEL ; [facility] Bisacodyl 5 MG Oral Tablet Delayed Release 02/26/2024 Provider: Diagnosis: 2 tabs Once a day PRN Last Documented On 02/26/2024 4:12PM By Bartolo DEL ANGEL ; [facility] Esomeprazole Magnesium 20 MG Oral Capsule Delayed Release 02/15/2024 Provider: LYLA SHAFFER MD Diagnosis: Gastro-esophagea l reflux disease without esophagitis Take 1 capsule by mouth once daily Last Documented On 02/15/2024 12:20AM By HOLLIS COLEMAN MD ; [facility] Furosemide 20 MG Oral Tablet 02/01/2024 Provider: LYLA COLEMAN MD Diagnosis: Localized edema TAKE 1/2 (ONE-HALF) TABLET B Y MOUTH ONCE DAILY IN THE MORNING Last Documented On 02/01/2024 9:42AM By HOLLIS COLEMAN MD ; [facility] Propranolol HCl ER 60 MG Ora l Capsule Extended Release 24 Hour 01/22/2024 Provider: LYLA COLEMAN MD Diagnosis: Take 1 capsule by mouth twice daily Last Documented On 01/22/2024 9:02PM By HOLLIS COLEMAN MD ; [facility] clonazePAM 1 MG Oral Tablet 2024 Provider: LYLA COLEMAN MD Diagnosis: Insomnia, unspec ified TAKE 1 TABLET BY MOUTH AT BEDTIME Last Documented On 2024 10:26PM By HOLLIS COLEMAN MD ; [facility] Citalopram Hydrobromide 20 M G Oral Tablet 11/03/2023 Provider: LYLA COLEMAN MD Diagnosis: Adjustment disor iliana with anxiety Take 1 tablet by mouth once daily Last Documented On 11/03/2023 8:04PM By HOLLIS COLEMAN MD ; [facility] Trelegy Ellipta 200-62.5-25 MCG/ACT Inhalation Aerosol Powder Breath Activated 09/15/2022 Provider: LYLA COLEMAN MD Diagnosis: 1 puff qd Last Documented On 09/15/2022 9:30AM By Ivania Sanchez Joslyn ; [facility] Fish Oil 1000 MG Oral Capsule 09/17/2020 Provide r: Diagnosis: Last Documented On 09/17/2020 8:34AM By Pamella Coker LPN ; [facility] Primidone 250 MG Oral Tablet 03/17/2020 Provider: Diagnosis: Last Documented On 03/17/2020 8:28AM By Viviane Ford Joslyn ; [facility] Womens Multivitamin Plus OR TABS 05/24/2012 Provider : MARLYS VILLAGOMEZ MD Diagnosis: OTC Last Documented On 05/24/2012 11:10AM By Azucena Ramos LPN ; [facility] Medications Administered Includes: Administered Medications from this [...] from this encounter No Physical Exam Recorded Immunizations Includes: Immunizations addressed during this encounter Vaccine Dose # Date Site Reaction(s) Status Source Fluzone High-dose Quadrivalent 2 08/08/2021 Left Arm Complete (Reported) Patient Last Documented On 10:02AM ; [facility] Fluzone High-dose Quadrivalent 3 08/01/2023 Left Deltoid Complete (Reported) Pat ient Last Documented On 4 10:02AM ; [facility] Allergies Includes: Active Allergies Substance Type Reaction Onset Date Resolved Date Statu s Ibuprofen Allergy 03/21/2012 Active Last Documented On 4 8:47AM ; [facility] Encounters Encounter Provider Location Date Check-In Time Check-Out Time Diagnosis CHART UPDATE LYLA COLEMAN MD 02/27/2024 10:02AM 11:59PM Insurance Includes: Active Insurance Policies Plan Name Member ID Group # Subscriber Relationship Effect kenna Dates 1 - [employer] [id number] [place] Self Clinical Notes Includes: Clinical Notes from this encounter No Clinical Notes Recorded
--- OUTSIDE RECORDS SUMMARY | 2024-11-23 15:02 | XMS_ITS | Encounter Summary ---
Author Organization [facility] Address [address] [place] [address] Care Team Providers Care Senior Reservations Agent Name Role Phone Watson Perry MD Primary Care Provider [phone] Encounter Details Date Type Department Care Team (Latest Contact Info) Description 02/04/2024 Travel Social History Tobacco Use Types Packs/Day [...] on filedocumented in this encounter Care Teams Senior Reservations Agent Relationship Specialty Start Date End Date Watson Perry MD [address] [place] [phone] PCP - General 12/03/19 documented as of this encounter
--- OUTSIDE RECORDS SUMMARY | 2024-11-23 15:02 | XMS_ITS | Encounter Summary ---
Author Organization [facility] Address [address] [place] [address] Care Team Providers Care Prescription Clerk Name Role Phone Watson Perry MD Primary Care Provider [phone] Encounter Details Date Type Department Care Team (Latest Contact Info) Description 04/30/2024 Travel Social History Tobacco Use Types Packs/Day [...] on filedocumented in this encounter Care Teams Prescription Clerk Relationship Specialty Start Date End Date Watson Perry MD [address] [place] [phone] PCP - General 12/03/19 documented as of this encounter
--- OUTSIDE RECORDS SUMMARY | 2024-11-23 15:02 | XMS_ITS | Encounter Summary ---
Author Organization [facility] Address [address] [place] [address] Care Team Providers Care Division Controller Name Role Phone Watson Perry MD Primary Care Provider [phone] Reason for Referral * Radiology Services (Routine) - Closed Specialty Diagnoses / Procedures Referred By Contac t Referred To Contact Nuclear Medicine Diagnoses Idiopathic Parkinson's disease (HCC) Procedures NM BRAIN IMAGING KIZZY SCAN Kody Allen MD [facility] [phone] [facility] Nuclear Medicine [address] [place] [phone] Referral ID Status Reason Start Date Expiration Date Visits Re quested Visits Authorized [id number] Closed 04/16/2024 04/16/2025 1 1 Reason for Visit * Radiology Services (Routine) - Closed Specialty Diagnoses / Procedures Referred By Contac t Referred To Contact Nuclear Medicine Diagnoses Idiopathic Parkinson's disease (HCC) Procedures NM BRAIN IMAGING KIZZY SCAN Kody Allen MD [address] [phone] [facility] Nuclear Medicine [address] [place] [phone] Referral ID Status Reason Start Date Expiration Date Visits Re quested Visits Authorized [id number] Closed 04/16/2024 04/16/2025 1 1 Encounter Details Date Type Department Care Team (Latest Contact Info) Description 05/15/2024 8:30 AM CDT - 05/15/2024 12:40 PM CDT Hospital En[facility] [address] [place] [phone] Kody Allen MD [address] [facility] [address] [facility] [place] [phone] Discharge Disposition: Home or Self Care Social [...] (one) tablet by mouth daily with food [place]-3 Fatty Acids (FISH OIL PO) Take 1,000 [...] syndromes. > Dictated by Waqas Garcia MD (Android Programmer) 05/15/2024 12:25 PM IAdri DO have personally reviewed and interpreted this examination/study. > Interpreting Provider: Adri Van DO on 05/15/2024 2:24 PM Narrative 05/15/2024 2:24 PM CDT PROCEDURE: ??NM BRAIN IMAGING KIZZY SCAN, DATE/TIME OF EXAM: ??05/15/2024 9:45 AM, LOCATION ??[facility] INDICATION: G20.A1: Idiopathic Parkinson's [...] SCAN, DATE/TIME OF EXAM: 49:45 AM, LOCATION [facility] INDICATION: G20.A1: Idiopathic Parkinson's [...] syndromes. > Dictated by Waqas Garcia MD (Android Programmer) 05/15/2024 12:25 PM Adri Mcclure DO have personally reviewed and interpreted this examination/study. > Interpreting Provider: Adri Van DO on 05/15/2024 2:24 PM Kody Jones MD NM ORDERABLES documented in this encounter Visit Diagnoses Diagnosis Idiopathic Parkinson's disease (HCC) Paralysis agitans documented in this encounter Administered Medications Inactive Administered Medications - up to 3 most recent administrations Medication Order MAR Action Action Date Dose Rate Site I-123 ioflupane (DaTscan) injection SOLN 5.39 millicurie 5.39 millicurie, Intravenous, ONCE, 1 dose, On Margarita 05/15/24 at 1000 $ Given 05/15/2024 9:35 AM CDT 5.39 millicuries Potassium Iodide (Antidote) TABS 130 mg 130 mg, Oral, ONCE, 1 dose, On Margarita 05/15/24 at 0900 $ Given 05/15/2024 8:35 AM CDT 130 mg documented in this encounter Care Teams Division Controller Relationship Specialty Start Date End Date Watson Perry MD [address] [place] [phone] PCP - General 12/03/19 documented as of this encounter
--- OUTSIDE RECORDS SUMMARY | 2024-11-23 15:02 | XMS_ITS | Clinical Summary ---
Author Organization [facility] Address [address] [place] [address] Care Team Providers Care Press Operator Heavy Duty Name Role Phone Watson Perry MD Primary Care Provider [phone] Source Comments [facility],non-owned Affiliates and Associated Physician Practices is amultiple site organization consisting of ambulatory clinics and hospital sitesin [place], [place], [place] and [place]. This disclosure is being madepursuant to the Care Everywhere program and may not contain all information available regarding this patient. Last updated 18.[facility] Allergies Active Allergy Reactions Criticality Noted Date Comments Ibuprofen Micronized Rash Medium 05/12/2010 Medications * Be aware that medications may not be up to date on this document. Alwaysverify current medications with the patient. Medication Sig Dispensed Refills Start Date End Date Status propranolol CR 24hr (INDERAL LA) 60 MG capsule Take 1 (one) capsule by mouth once daily Active clonazePAM (KLONOPIN) 1 MG tablet Take 1 (one) tablet by mouth at bedtime Active pramipexole (MIRAPAX) 0.5 MG tablet Take 1 (one) tablet by mouth at bedtime Active multivitamin daily (THERAGRAN) tablet Take 1 (one) tablet by mouth daily with food Active citalopram (CELEXA) 20 MG tablet Take 1 (one) tablet by mouth once daily Active esomeprazole (NEXIUM) 20 MG capsule Take 1 (one) capsule by mouth once daily Active rosuvastatin (CRESTOR) 10 MG tablet Take 1 (one) tablet by mouth at bedtime 11/09/2019 Active [place]-3 Fatty Acids (FISH OIL PO) Take 1,000 mg by mouth 3 times daily Active Calcium Carb-Cholecalcifer ol (CALCIUM 600 + D PO) Take by mouth 2 times daily Active acetaminophen (TYLENOL) 500 MG tablet Take 1 tablet by mouth every 4 hours as needed for Pain Maximum allowable Acetaminophen amount = 4 Grams (4000 mg) / 24 hours. 30 tablet 12/15/2019 Active gabapentin (NEURONTIN) 300 MG capsule Take 1 (one) capsule by mouth 2 times daily 12/01/2020 Active senna (SENOKOT) 8.6 MG tablet Take 2 (two) tablets by mouth once daily 30 tablet 06/01/2021 Active Trelegy Ellipta 200-62.5-25 MCG/ACT inhaler Inhale 1 (one) puff by mouth once daily 04/16/2024 Active furosemide (Lasix) 20 MG tablet Take 0.5 (one-half) tablet by mouth once daily Active primidone (Mysoline) 250 MG tablet Take 1 (one) tablet by mouth once daily 12/15/2022 Active Active Problems Problem Noted Date Diagnosed Date [...] Mass Index 29.45 04/16/2024 2:05 PM CDT Plan of Treatment Health Maintenance Due Date Last Done Comments BONE DENSITY TESTING 1950 COLOGUARD (AGES 45-75) - COL ON CA SCREENING 1952 COLON MONITORING 1952 COLONOSCOPY - COLON CA SCREENING 1952 CT COLONOGRAPHY - COLON CA SCREENING 1952 Colorectal Cancer Screening 1952 FIT - COLON CA SCREENING 1952 FLEX SIG - COLON CA SCREENING 1950 Opioid Medication Agreement - Annual 1952 PNEUMOCOCCAL VACCINE 65+ (1 of 2 - PCV) 1958 HEPATITIS C SCREENING 01/05/1970 DTAP/TDAP/TD VACCINES (1 - Tdap) 1971 ZOSTER VACCINE (1 of 2) 2002 MAMMOGRAM 01/18/2022 01/19/2020 DEPRESSION SCREENING 11/19/2023 COVID-19 VACCINE (1 - 2023-2 5 season) 2024 INFLUENZA VACCINE (#1) 2024 5, 09/19/2013, 09/05/2012 Respiratory Syncytial Virus (RSV) Vaccine Pt: or over 60 yrs (1 - 1-dose 75+ series) 2027 HEPATITIS B VACCINE Aged Out No longe r eligible based on patient's age to complete this topic HIB VACCINE Aged Out No longer eligi ble based on patient's age to complete this topic HPV VACCINE Aged Out No longer eligi ble based on patient's age to complete this topic MENINGOCOCCAL VACCINE Aged Out No rubina javi eligible based on patient's age to complete this topic Procedures Procedure Name Priority Date/Time Associated Diagnosis Comments MAMMOGRAM Routine 01/19/2020 from Last 3 Months or Most Recently Relevant to Health Maintenance Results * MAMMOGRAM (01/19/2020) Anatomical Region Laterality Modality Other Historical Provider MD SCANNING ONLY from Last 3 Months or Most Recently Relevant to Health Maintenance Care Teams Press Operator Heavy Duty Relationship Specialty Start Date End Date Watson Perry MD [address] [facility] [place] [phone] PCP - General 12/03/19
--- OUTSIDE RECORDS SUMMARY | 2024-11-23 15:02 | XMS_ITS | Encounter Summary ---
Author Organization [facility] Address [address] [place] [address] Care Team Providers Care Alligator Trapper Name Role Phone Watson Perry MD Primary Care Provider [phone] Reason for Visit * Auth/Cert Specialty Diagnoses / Procedures Referred By Contac t Referred To Contact Diagnoses Diagnosis unknown Diagnosis unknown [R69] Procedures LAPAROSCOPIC TOTAL HYSTERECTOMY (TLH) Referral ID Status Reason Start Date Expiration Date Visits Re quested Visits Authorized [id number] 1 1 Encounter Details Date Type Department Care Team (Late st Contact Info) Description 06/01/2021 9:57 AM CDT Anesthesia Event [facility] PERIOPERATIVE [address] [place] [address] Ahsan Sung MD [address] [place], [place] [id number] Dylan Herzog MD [address] [facility] ANESTHESIA DEPT [place], [place] [id number] Anesthesia Record Procedure Summary Procedure Name Responsible Anesthesiologist Anesthesia Start Time Anesthesia Stop Time TOTAL LAPAROSCOPIC HYSTERECTOMY, SALPINGO OOPHORECTOMY--BILATERA L, FROZEN SECTION (Bilateral: Abdomen) Ahsan Sung MD 06/01/21 0957 06/01/21 1206 Events Date Time Event Comment 06/01/2021 0957 An Start 0957 An Start Data 1001 PT Reassessment 1002 Induction 1004 An Intubation 1017 Timeout Anesthesia part icipated in timeout at the time documented in the record by nursing. 1034 Local Infiltration by Quita dye 1158 Extubation 1201 an stop data 1201 Electnc Sig 1201 ANPTO2 1206 An Stop Meds Name Total midazolam 2 mg/2mL injection 2 mg lidocaine 2% injection (20 mg/ml) 60 mg propofol 200mg/20mL injection 100 mg succinylcholine (ANECTINE) 100 mg/5 mL i njection 80 mg rocuronium 50mg/5mL injection 50 mg Phenylephrine HCl 10 MG/ML 400 mcg dexamethasone 4 mg/ml injection 8 mg ondansetron 4 mg/2mL injection 8 mg sugammadex 200 mg/2 mL injection 200 mg ketamine 50 mg/ml injection 25 mg diphenhydrAMINE 50mg/ml injection 25 mg magnesium sulfate 2 g in 50 mL bolus 2 g magnesium sulfate 10 g in 0.9% NaCl IV 5 0 mL infusion 428.4 mg ceFAZolin (Ancef) 2,000 mg in 50 ml IVPB 2 g ePHEDrine injection 50 mg/ml 35 mg ketorolac 30 mg/ml injection 15 mg lactated ringers infusion 0 mL * Agents Name Insp. N2O Exp. Sevoflurane Exp. N2O O2 Air Insp. Sevoflurane N2O * Blood No blood administrations on file. Lines, Drains, and Airways Type Details Placement Removal Peripheral IV Date: 06/01/21; Time : 09; Orientation: Right; Placed By: Edwige Mathews RN; Tolerance: Well 06/01/21 0922 by Carmela Cutler RN 06/01/21 1606 by Edwige Park, RN ETT Date: 06/01/21; Time : 1004; Placed By: GAYATHRI Hawk; Vent: easy mask; Induction: Modified Rapid Sequence; Blade Type: Benita; Blade Size: 3; Laryngoscopy View: Grade 1 (full cords); Intubation Adjuncts: Stylet, Cricoid Pressure; Tube: Endotracheal Tube; Placement: Oral; Tube Type: Cuffed-inflated; Tube Size(mm): 7 MM; Depth of Insertion: 21 CM; Measured From: lips; Attempts: 1; Cuff Infated: Air; Cuff Vol(mL): 6 mL; Verified By: Direct visualization, Bilateral breath sounds, Chest Auscultation, CO2 Monitor 06/01/21 1004 by Joie Boyer APRN-CRNA 06/01/21 1158 by Joie Boyer APRN-SILVICULTURIST Procedural Site (Incision) 06/01/21; 1020; Abdomen; Laparoscopic; 4 sites; 06/01/21; 223006/01/21 1020 by Leslie Coronel RN 06/01/212230 by Generic, Auto Release Urethral Catheter 06/01/21; 1021; ninoska rn; Straight-tip, Latex, Double-lumen / 2-Way; No; 16; 10 mL; General Anesthesia; 06/01/21; 1145; Per order; dr. sanford 06/01/21 1021 by Huan Person RN 06/01/21 1145 by Huan Person RN Procedural Site (Incision) 06/01/21; 1021; Vagina; 06/01/21; 223006/01/21 1021 by Huan Person RN 06/01/212230 by Generic, Auto Release documented in this encounter Social History Tobacco [...] on file documented as of this encounter Progress Notes * Ahsan Sung MD - 06/01/2021 1:31 PM CDT ANESTHESIA POSTOP EVALUATION NOTE Procedure: TOTAL LAPAROSCOPIC HYSTERECTOMY, SALPINGO OOPHORECTOMY--BILATERAL, FROZEN SECTION (Bilateral Abdomen) Janeth Parker is a 71 year old female Patient Vitals for the past 6 hrs: BP Temp Pulse Resp SpO2 Pain Rating Score #1 Pain Scale/Observation 06/01/21 0921 114/74 97.8 ??F (36.6 ??C) 66 18 91 % 0 N 06/01/21 1200 116/68 -- 68 9 100 % -- -- 07/14/21 1205 99/71 -- 68 (!) 0 100 % -- -- 06/01/21 1210 100/59 -- 69 14 100 % -- -- 06/01/21 1215 95/48 -- 70 17 (!) 81 % -- -- 06/01/21 1220 102/58 -- 71 11 99 % -- -- 06/01/21 1225 100/59 -- 72 17 91 % -- -- 06/01/21 1230 90/49 -- 73 18 97 % -- -- 06/01/21 1235 83/43 -- 74 17 92 % -- -- 06/01/21 1240 100/49 -- 75 15 99 % -- -- 06/01/21 1245 117/69 -- 79 28 100 % -- -- 06/01/21 1250 119/67 -- 79 19 100 % -- -- 06/01/21 1255 108/66 -- 73 11 97 % -- -- 06/01/21 1300 110/70 -- 73 11 96 % -- -- 06/01/21 1305 106/65 -- 76 14 96 % -- -- 06/01/21 1310 -- -- 74 16 96 % -- -- Anesthesia Type: general ETT Pre-op Diagnosis Codes: * Diagnosis unknown [R69] Mental Status: awake and sufficiently recovered from acute administration of anesthesia to participate in the evaluation Neuro Status: No numbess, tingling or visual disturbances Respiratory Function: natural Cardiac Function: stable Postop Pain: acceptable to the patient Postop Hydration: adequate Postop Nausea: none Assessment: other - please comment Patient Disposition: Release from Anesthesia Care COMPLICATIONS: Encounter Complications Complication Outcome Phase Comment Reintubation in PACU Treatment: Other In Recovery Extubated after 20 min of re-intubation * Valentino Salcedo, SCIENTIFIC DIRECTOR-SILVICULTURIST - 06/01/2021 8:56 AM CDT ANESTHESIA PREOPERATIVE EVALUATION NOTE Procedure: TOTAL LAPAROSCOPIC HYSTERECTOMY, SALPINGO OOPHORECTOMY--BILATERAL, FROZEN SECTION, POSSIBLE STAGING, POSSIBLE EXPLORATORY LAPAROTOMY (Abdomen) Vitals: No data found. ANESTHESIA PRE-EVALUATION NOTE Previous Airway Management: No Hx Available Physical Exam: Orientation X3 Airway/Mallampati Score: II Mouth Opening Distance: 2.5 fingerwidths Neck ROM: full TM Distance: > 3 FB Teeth: normal Heart: normal - S1 S2 Lungs: clear to ausculation bilaterally Review of Systems: History of anesthetic complications: No Malignant Hyperthermia: No GERD: No Poor Exercise Tolerance: No Recent Chest Pain: No Shortness of Breath: No AICD/Pacemaker: No Renal Disease: No Diagnostic Tests: Lab(s) reviewed: Yes (labs pending). ANESTHESIA PLAN ASA Score: 2 (smoker, COPD) NPO Status: No solids since midnight and No liquids within 2 hours Anesthesia Plan: general Planned Induction: intravenous Planned Postop Destination: PACU Anesthetic plan was discussed with: patient Anesthetic Plan discussion was: Consented The patient's procedural Anesthetic Plan was discussed with the anesthesiologist. BMI, Height, Weight Tobacco History Estimated body mass index is 22.47 kg/m?? as calculated from the following: Height as of this encounter: 1.651 m (5' 5 ). Weight as of this encounter: 61.2 kg (135 lb). Social History Tobacco Use Smoking Status Current Every Day Smoker ??? Packs/day: 0.25 ??? Years: 40.00 ??? Pack years: 10.00 ??? Types: Cigarettes Smokeless Tobacco Never Used Tobacco Comment 5-6 cigarettes per day Alcohol History Drug History Social History Substance and Sexual Activity Alcohol Use No Social History Substance and Sexual Activity Drug Use No Outpatient Medications: Inpatient Medications: Outpatient Medications Marked as Taking for the 06/01/21 encounter (Hospital Encounter) Medication Sig Last Dose ??? acetaminophen Take 1 tablet by mouth every 4 hours as needed for Pain Maximum allowable Acetaminophen amount = 4 Grams (4000 mg) / 24 hours. ??? Calcium Carb-Cholecalciferol (CALCIUM 600 + D PO) Take by mouth 2 times daily ??? citalopram Take 1 tablet by mouth once daily ??? clonazePAM Take 1 mg by mouth at bedtime. ??? esomeprazole Take 1 capsule by mouth once daily ??? fluticasone-vilanterol Inhale 1 puff by mouth once daily ??? gabapentin Take 300 mg by mouth 2 times daily ??? multivitamin daily Take 1 Tab by mouth daily with food. ??? [place]-3 Fatty Acids (FISH OIL PO) Take 1,000 mg by mouth 3 times daily 05/19/2021 ??? pramipexole Take 0.5 mg by mouth at bedtime. ??? primidone Take 250 mg by mouth at bedtime ??? propranolol CR 24hr Take 60 mg by mouth daily. ??? rosuvastatin Take 10 mg by mouth at bedtime Current Facility-Administered Medications Medication Dose Last Admin ??? acetaminophen 1,000 mg ??? ceFAZolin 2 g ??? heparin 5,000 Units ??? lactated ringers ??? lidocaine 0.2 mL ??? magnesium sulfate 2 g ??? morphine CR 12hr 30 mg ??? phenazopyridine 200 mg ??? scopolamine 1 patch And ??? scopolamine patch placement confirmation Allergies: Allergies Allergen Reactions ??? Ibu [Ibuprofen Micronized] Rash Relevant Problems No relevant active problems Problem List: Hospital Problem List None Non-Hospital Problem List Carcinoma Medical History: Past Medical History: Diagnosis Date ??? Abnormal Pap smear of cervix ??? Actinic keratoses ??? Adjustment disorder with anxiety ??? Benign essential tremor ??? COPD (chronic obstructive pulmonary disease) ??? Functional constipation ??? GERD (gastroesophageal reflux disease) ??? Hypercholesterolemia ??? Insomnia ??? Irregular heartbeat ??? RLS (restless legs syndrome) ??? Skin cancer of nose Surgical History: Past Surgical History: Procedure Laterality Date ??? [...] ??? SURGICAL HISTORY OF right thumb surgery Covid Vaccine: Lab Results: No results found for requested labs within last 120 days. No results found for requested labs within last 120 days. documented in this encounter Procedure Notes * Joie Boyer, SCIENTIFIC DIRECTOR-SILVICULTURIST - 06/01/2021 10:21 AM CDTAssociated Order(s): ETT Placement Endotracheal Tube Placement: Patient Location: OR. Intubation Event Date/Time: 06/01/2021 10:04 AM Procedure: intubation (49790). Procedure Section: Sedation: under general anesthesia. Indications for Airway Management: anesthesia Procedure pretreatments used? No Induction: modified rapid sequence Patient Position: sniffing Mask Ventilation: easy. Blade Type: Benita Blade Size: 3 Laryngoscopy View: grade 1 (full cords) Intubation Adjuncts: stylet and cricoid pressure Tube: endotracheal tube Placement: oral Tube type: cuff - inflated Tube Size (MM): 7 Depth of Insertion (CM): 21 Measured From: lips Cuff volume (mL): 6 Cuff Inflated With: air Number of Attempts: 1. Placement Verified By: direct visualization, bilateral breath sounds, chest auscultation and CO2 monitor Tube secured with: adhesive tape. Difficult Airway? No. Procedure Start Time: 06/01/2021 10:04 AM. Staff Section Anesthesia Provider: Joie Boyer APRN-CRNA, Performed the procedure Provider #1: Ahsan Sung MD. Additional Comments: Atraumatic intubation, dentition and lips same as baseline. documented in this encounter Miscellaneous Notes * Anesthesia Transfer of Care - Joie Boyer APRN-CRNA - 06/01/2021 12:06 PM CDT ANESTHESIA TRANSFER OF CARE NOTE Today's Date: 06/01/2021 Date of : 1950 Patient: Janeth Parker Procedure(s): TOTAL LAPAROSCOPIC HYSTERECTOMY, SALPINGO OOPHORECTOMY--BILATERAL, FROZEN SECTION Surgeon(s): Primary: Kelley Sanford MD Resident - Assisting: Watson Humphreys MD Preop Diagnosis: Pre-op Diagnois: * Diagnosis unknown [R69] Pre-op Meds (From admission, onward) Start Stop Status Route Frequency Ordered 06/01/21 1000 acetaminophen (Tylenol) tablet 1,000 mg 06/01 0926 Completed PO ONCE 05/31/21 1421 06/01/21 1000 ceFAZolin (Ancef) 2,000 mg in 50 ml IVPB 06/01 1006 Completed IV ONCE 05/31/21 14206/01/21 1000 heparin injection 5,000 Units 06/01 0927 Completed SC ONCE 05/31/21 14206/01/21 0845 lactated ringers infusion -- Verified IV PRE-OP CONTINUOUS 06/01/21 0835 06/01/21 0835 lidocaine PF (Xylocaine MPF) 1 % injection 0.2 mL -- Verified INFILTRATION PRE-OP MULTIPLE 06/01/21 0835 06/01/21 0845 magnesium sulfate 2 g in 50 mL bolus 06/01 0955 Completed IV ONCE 06/01/21 0835 06/01/21 1000 morphine CR 12hr (MS Contin) tablet 30 mg 06/01 09 Completed PO ONCE 05/31/21142006/01/21 1000 phenazopyridine (Pyridium) tablet 200 mg 06/01 926 Completed PO ONCE 05/31/21142006/01/21 1000 scopolamine (Transderm-Scop) 1 patch 06/04 09 Verified TD ONCE 05/31/21142005/31/21 1430 scopolamine patch placement confirmation -- Dispensed TD 2 TIMES DAILY 05/31/21 142 Post-op Diagnosis: * Diagnosis unknown [R69] . Allergies Allergen Reactions ??? Ibu [Ibuprofen Micronized] Rash Vitals: Patient Vitals for the past 3 hrs: BP Temp Pulse Resp SpO2 Pain Rating Score #1 06/01/21920 114/74 97.8 ??F (36.6 ??C) 66 18 91 % 0 Lines, Drains, and Airways Type Details Placement Removal Peripheral IV Date: 06/01/21; Time: 921; Orientation: Right; Location: Wrist; Placed By: Edwige Mathews RN; Gauge: 20 Gauge; Tolerance: Well 06/01/21921 by Carmela Cutler RN ETT Date: 06/01/21; Time: 1003; Placed By: Joie Boyer APRN-SILVICULTURIST; Vent: easy mask; Induction: Modified Rapid Sequence; Blade Type: Benita; Blade Size: 3; Laryngoscopy View: Grade 1 (full cords); Intubation Adjuncts: Stylet, Cricoid Pressure; Tube: Endotracheal Tube; Placement: Oral; Tube Type: Cuffed- inflated; Tube Size(mm): 7 MM; Depth of Insertion: 21 CM; Measured From: lips; Attempts: 1; Cuff Infated: Air; Cuff Vol(mL): 6 mL; Verified By: Direct visualization, Bilateral breath sounds, Chest Auscultation, CO2 Monitor 06/01/21 1004 by Joie Boyer APRN-CRNA 06/01/21 1158 by Joie Boyer APRN-CRNA Intraprocedure I/O Totals Output Urine 200 mL Estimated Blood Loss 50 mL Total Output 250 mL Patient Transfer Location: PACU Transport Airway: spontaneous respirations and supplemental O2 Complications: None Handoff Given? Yes Checklist or Protocol - The [place] handoff elements that must be included in the transfer of care checklist include: 1. Identification of patient. 2. Identification of responsible practitioner (PACU nurse or advanced practitioner). 3. Discussion of pertinent medical history. 4. Discussion of the surgical/procedure course (procedure, reason for surgery, procedure performed). 5. Intraoperative anesthetic management and issue/concerns. 6. Expectations/Plans for the early post-procedure period. 7. Opportunity for questions and acknowledgement of understanding of report from the receiving PACUteam. GAYATHRI Hawk documented in this encounter Plan of Treatment Not on file documented as of this encounter Procedures Procedure Name Priority Date/Time Associated Diagnosis Comments ENDOTRACHEAL TUBE NOTE Routine 06/01/2021 10:21 AM CDT documented in this encounter Results * ETT LINE PERFORMABLE (06/01/2021 10:21 AM CDT) Narrative Joie Boyer APRN-CRNA - 06/01/2021 10:21 AM CDT Joie Boyer APRN-CRNA ? 06/01/2021 10:22 AM Endotracheal Tube Placement: ? Patient Location: OR. Intubation Event Date/Time: ??06/01/2021 10:04 AM Procedure: intubation ([id number]). Procedure Section: ?? Sedation: under general anesthesia. [...] Staff Section ?? Anesthesia Provider: Joie Boyer APRN-SILVICULTURIST, Performed the procedure Provider #1: Ahsan Sung MD. Additional Comments: Atraumatic intubation, dentition and lips same as baseline. Ahsan Sung MD GENERAL ANESTHESIA ORDERABLES documented in this encounter Visit Diagnoses Not on filedocumented in this encounter Administered Medications Inactive Administered Medications - up to 3 most recent administrations Medication Order MAR Action Action Date Dose Rate Site ceFAZolin (Ancef) 2,000 mg in 50 ml IVPB 2,000 mg (2 g), at 100 mL/hr, Intravenous, ONCE, 1 dose, On Sun06/01/21 at 1000, Indication for anti-infective therapy: Surgical prophylaxis $ Given 06/01/2021 10:06 AM CDT 2 g dexAMETHasone (Decadron) injection Intravenous, PRN, Starting on Sun06/01/21 at 1017, Until Sun06/01/21 at 1206, Anesthesia Intra-op $ Given 06/01/2021 10:17 AM CDT 8 mg diphenhydrAMINE (Benadryl) injection Intravenous, PRN, Starting on Sun06/01/21 at 1017, Until Sun06/01/21 at 1206, Anesthesia Intra-op $ Given 06/01/2021 10:17 AM CDT 25 mg ePHEDrine injection Intravenous, PRN, Starting on Sun06/01/21 at 1027, Until Sun06/01/21 at 1206, Anesthesia Intra-op $ Given 06/01/2021 11:22 AM CDT 10 mg $ Given 06/01/2021 11:12 AM CDT 5 mg $ Given 06/01/2021 10:29 AM CDT 10 mg ketamine (Ketalar) injection Intravenous, PRN, Starting on Sun06/01/21 at 1019, Until Sun06/01/21 at 1206, Anesthesia Intra-op $ Given 06/01/2021 10:34 AM CDT 10 mg $ Given 06/01/2021 10:19 AM CDT 15 mg ketorolac (Toradol) injection Intravenous, PRN, Starting on Sun06/01/21 at 1147, Until Sun06/01/21 at 1206, Anesthesia Intra-op $ Given 06/01/2021 11:47 AM CDT 15 mg lactated ringers infusion at 20 mL/hr, Intravenous, PRE-OP CONTINUOUS, Starting on Sun06/01/21 at 0845, Until Sun06/01/21 at 1731, Pre-op Rate Change 06/01/2021 11:33 AM CDT 900 mL /hr $ New Bag/Syringe 06/01/2021 9:25 AM CDT 20 mL/ hr lidocaine hcl (PF) (Xylocaine MPF) 2 % injection Intravenous, PRN, Starting on Sun06/01/21 at 1002, Until Sun06/01/21 at 1206, Anesthesia Intra-op $ Given 06/01/2021 10:02 AM CDT 60 mg magnesium sulfate 10 g in 0.9% NaCl IV 50 mL infusion Intravenous, CONTINUOUS PRN, Starting on Sun06/01/21 at 1013, Until Sun06/01/21 at 1206, Anesthesia Intra-op $ New Bag/Syringe 06/01/2021 10:13 AM CDT 6 mg/kg/hr 1.836 mL/hr magnesium sulfate 2 g in 50 mL bolus 2 g, at 150 mL/hr, Administer over 20 Minutes, ONCE, 1 dose, On Sun06/01/21 at 0845, MAXIMUM rate 2g/10min $ Given 06/01/2021 9:55 AM CDT 2 g midazolam (Versed) injection Intravenous, PRN, Starting on Sun06/01/21 at 0955, Until Sun06/01/21 at 1206, Anesthesia Intra-op $ Given 06/01/2021 9:55 AM CDT 2 mg Ondansetron HCl (Zofran) injection Intravenous, PRN, Starting on Sun06/01/21 at 1132, Until Sun06/01/21 at 1206, Anesthesia Intra-op $ Given 06/01/2021 11:32 AM CDT 8 mg Phenylephrine HCl (Sumeet-Synephrine) injection Intravenous, PRN, Starting on Sun06/01/21 at 1019, Until Sun06/01/21 at 1206, Anesthesia Intra-op $ Given 06/01/2021 11:05 AM CDT 50 mcg $ Given 06/01/2021 10:52 AM CDT 50 mcg $ Given 06/01/2021 10:19 AM CDT 100 mcg propofol (Diprivan) injection Intravenous, PRN, Starting on Sun06/01/21 at 1002, Until Sun06/01/21 at 1206, Anesthesia Intra-op $ Given 06/01/2021 10:02 AM CDT 100 mg rocuronium (Zemuron) injection Intravenous, PRN, Starting on Sun06/01/21 at 1009, Until Sun06/01/21 at 1206, Anesthesia Intra-op $ Given 06/01/2021 10:39 AM CDT 10 mg $ Given 06/01/2021 10:24 AM CDT 10 mg $ Given 06/01/2021 10:09 AM CDT 30 mg succinylcholine (Anectine) injection Intravenous, PRN, Starting on Sun06/01/21 at 1003, Until Sun06/01/21 at 1206, Anesthesia Intra-op $ Given 06/01/2021 10:03 AM CDT 80 mg sugammadex (Bridion) injection Intravenous, PRN, Starting on Sun06/01/21 at 1132, Until Sun06/01/21 at 1206, Anesthesia Intra-op $ Given 06/01/2021 11:32 AM CDT 200 mg documented in this encounter Care Teams Alligator Trapper Relationship Specialty Start Date End Date Watson Perry MD [address] [place] [phone] PCP - General 12/03/19 documented as of this encounter
--- OUTSIDE RECORDS SUMMARY | 2024-11-23 15:02 | XMS_ITS | Encounter Summary ---
Author Organization [facility] Address [address] [facility] [place] [address] Care Team Providers Care Iron Pellet Tester Name Role Phone Watson Perry MD Primary Care Provider [phone] Reason for Visit * Reason Onset Date Comments Appointment 06/06/2021 Encounter Details Date Type Department Care Team (Late st Contact Info) Description 06/06/2021 Telephone [facility] [address] [place] [address] Kelley Sanford MD [address] [facility] [address] [place], [place] [id number] Appointment Social History Tobacco Use Types Packs/Day Years [...] on file documented as of this encounter Miscellaneous Notes * Telephone Encounter - Leanne Shell RN - 06/06/2021 9:12 AM CDT Spoke with patient. She could not remember our conversation last week. appt sched for a voiding trial today at 10am. Patient lives close to two hours away and no way can she make it to our office by 10am. Told patient to lv as soon as she could and will see her when she can get here. * Telephone Encounter - Fadia Dejesus - 06/06/2021 8:44 AM CDT Pt called states she was supposed to have an appointment today, States when she spoke with nurse she was on medication [phone] documented in this encounter Plan of Treatment Not on file documented as of this encounter Visit Diagnoses Not on filedocumented in this encounter Care Teams Iron Pellet Tester Relationship Specialty Start Date End Date Watson Perry MD [address] [place] [phone] PCP - General 12/03/19 documented as of this encounter
--- OUTSIDE RECORDS SUMMARY | 2024-11-23 15:02 | XMS_ITS | Referral Summary ---
Author Organization [facility] Address [address] [facility] [place] [address] Care Team Providers Care Workplace Trainer And Assessor Name Role Phone Watson Perry MD Primary Care Provider [phone] Source Comments [facility],non-owned Affiliates and Associated Physician Practices is amultiple site organization consisting of ambulatory clinics and hospital sitesin [place], [place], [place]. This disclosure is being madepursuant to the Care Everywhere program and may not contain all information available regarding this patient. Last updated 18.[facility] Allergies Active Allergy Reactions Criticality Noted Date [...] tablet by mouth at bedtime 11/09/2019 Active [place]-3 Fatty Acids (FISH OIL PO) Take 1,000 [...] 04/16/2024 2:05 PM CDT Plan of Treatment Not on file Procedures Procedure Name Priority Date/Time Associated Diagnosis Comments MAMMOGRAM Routine 01/19/2020 from Last 3 Months or Most Recently Relevant to Health Maintenance Results * MAMMOGRAM (01/19/2020) Anatomical Region Laterality Modality Other Historical Provider MD SCANNING ONLY from Last 3 Months or Most Recently Relevant to Health Maintenance Care Teams Workplace Trainer And Assessor Relationship Specialty Start Date End Date Watson Perry MD [address] [place] [phone] PCP - General 12/03/19
--- OUTSIDE RECORDS SUMMARY | 2024-11-23 15:02 | XMS_ITS | Encounter Summary ---
Author Organization [facility] Address [address] [facility] [place] [address] Care Team Providers Care Punch Hand Name Role Phone Watson Perry MD Primary Care Provider [phone] Reason for Visit * Reason Onset Date Comments Surgical Follow-up 06/02/2021 Encounter Details Date Type Department Care Team (Late st Contact Info) Description 06/02/2021 Telephone [facility] [address] [place] [address] Kelley Sanford MD [address] [phone] Surgical Follow-up Social History Tobacco Use Types Packs/Day Years [...] Telephone Encounter - Leanne Shell RN - 06/02/2021 2:08 PM CDT Returned call to patient. Per Dr Grabosch- Patient to return to [facility] office Sunday, 06/06 for a voiding trial. Appt 06/06 @ 10am Encouraged patient to increase fluids Patient verbalized understanding * Telephone Encounter - Fadia Dejesus - 06/02/2021 1:09 PM CDT Pt called states she is having problems urinating after surgery yesterday CB# [phone] documented in this encounter Plan of Treatment Not on file documented as of this encounter Visit Diagnoses Not on filedocumented in this encounter Care Teams Punch Hand Relationship Specialty Start Date End Date Watson Perry MD [address] [place] [phone] PCP - General 12/03/19 documented as of this encounter
--- OUTSIDE RECORDS SUMMARY | 2024-11-23 15:03 | XMS_ITS | Encounter Summary ---
Author Organization [facility] Address [address] [place] [address] Care Team Providers Care Switchboard Operator Assistant Name Role Phone Watson Perry MD Primary Care Provider [phone] Reason for Visit * Reason Onset Date Comments Scheduling 04/08/2021 Encounter Details Date Type Department Care Team (Late st Contact Info) Description 04/08/2021 Telephone [facility] [address] [place] [address] Kelley Sanford MD [address] [phone] Scheduling Social History Tobacco Use Types Packs/Day Years [...] encounter Miscellaneous Notes * Telephone Encounter - Janiya Jones - 04/11/2021 10:26 AM CDT Lvm for patient to call back and get schedule to see Dr. Sanford * Telephone Encounter - Janiya Jones - 04/08/2021 9:45 AM CDT Attempted to contact patient to get schedualed for a follow up appointment with , unableto leave a VM. Will try again on Sunday to contact patient. documented in this encounter Plan of Treatment Not on file documented as of this encounter Visit Diagnoses Not on filedocumented in this encounter Care Teams Switchboard Operator Assistant Relationship Specialty Start Date End Date Watson Perry MD [address] [place] [phone] PCP - General 12/03/19 documented as of this encounter
--- OUTSIDE RECORDS SUMMARY | 2024-11-23 15:03 | XMS_ITS | Encounter Summary ---
Author Organization [facility] Address [address] [place] [address] Care Team Providers Care Erp Project Manager Name Role Phone Watson Perry MD Primary Care Provider [phone] Reason for Visit * Auth/Cert Specialty Diagnoses / Procedures Referred By Contac t Referred To Contact Diagnoses Diagnosis unknown Diagnosis unknown [R69] Procedures HYSTEROSCOPY WITH DILATION & CURETTAGE Referral ID Status Reason Start Date Expiration Date Visits Re quested Visits Authorized [id number] 1 1 Encounter Details Date Type Department Care Team (Late st Contact Info) Description 05/31/2020 11:00 AM CDT - 05/31/2020 12:30 PM CDT Surgery [facility] [address] [place] [address] Kelley Sanford MD [address] [place] [address] [phone] HYSTEROSCOPY WITH DILATION & CURETTAGE Surgery Details Date/Time Status Location OR Service Patient Class Case Class Case Type Trauma Case? 05/31/2020 11:00 AM Posted [facility] OR 14 Gynecology Surgery Day Care Elective > 5 days Panel 1 Procedure LRB Anes Op Region Wound Class Comments HYSTEROSCOPY WITH DILATION & CURETTAGE N/A MAC V agina Clean Contaminated Surgeon Surgeon Role Service Panel Kelley Sanford MD Primary Gynecology 1 documented in this encounter Social History [...] Sign Reading Time Taken Comments Blood Pressure 95/52 05/31/2020 12:07 PM CDT Pulse 62 05/31/2020 12:07 PM CDT Temperature 36.7 ??C (98 ??F) 05/31/2020 12:07 PM CDT Respiratory Rate 16 05/31/2020 12:07 PM CDT Oxygen Saturation 95% 05/31/2020 12:07 PM CDT Inhaled Oxygen Concentration - - Weight 63.5 kg (140 lb) 05/31/2020 9:25 AM CDT Height 165.1 cm (5' 5 ) 05/31/2020 9:25 AM CDT Body Mass Index 23.3 05/31/2020 9:25 AM CDT documented in this encounter Medications [...] 1 (one) capsule by mouth once daily multivitamin daily (THERAGRAN) tablet Take 1 (one) tablet by mouth daily with food [place]-3 Fatty Acids (FISH OIL PO) Take 1,000 mg by mouth 3 times daily pramipexole (MIRAPAX) 0.5 MG tablet Take 1 (one) tablet by mouth at bedtime propranolol CR 24hr (INDERAL LA) 60 MG capsule Take 1 (one) capsule by mouth once daily rosuvastatin (CRESTOR) 10 MG tablet Take 1 (one) tablet by mouth at bedtime 11/09/2019 fluticasone-vilanter ol (BREO ELLIPTA) 100-25 MCG/INH inhaler Inhale 1 puff by mouth once daily 04/16/2024 medroxyPROGESTERone (PROVERA) 10 MG tablet Take 1 tablet by mouth once daily 30 tablet 5 12/18/2019 04/16/2024 primidone (MYSOLINE) 50 MG tablet Take 5 (five) tablets by mouth at bedtime 10/03/2019 04/16/2024 documented as of this encounter H&P Notes * Hnany Allen MD - 05/25/2020 2:44 PM CDT Pre Op History & Physical Per chart review Pre-Operative Diagnosis: PMB with 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 Parker is a 70 yo female who presented for surveillance of endometrial polyp with simple hyperplasia. She is s/p HSC and D&C done for abnormal appearing uterus as well as LAD. Pt had also been having PMB. Pathology demonstrated endometrial polyp with simple hyperplasia. She was started on progesterone but had a lot of bleeding issues with this so we discontinued. Given the comment of LAD on herinitial CT a PET scan was done. This did demonstrate some activity in the uterus though she was recently post op from her D&C and thus it was attributed to this. She had a mammogram that was wnl.She has never had a colonoscopy but did have upper GI. ?? Currently having some intermittent pink or brown tinged discharge. Denies pain, cramping. Has constipation. This is baseline. ?? TVUS 05/14: A transvaginal ultrasound was performed. The uterus is normal in size and contour. The uterus is retroverted. The myometrium is somewhat heterogeneous with tiny cystic spaces. The myometrial/endometrial junction is ill-defined. The endometrium measures within normal limits, however it is irregular in appearance. On the right side the endometrium is more echogenic with a tiny cystic area and vein extending from endometrium to myometrium. Suspicious for endometrial polyp measuring approximately 10x5mm. Both ovaries appear normal. PMH: Past Medical History: Diagnosis Date ??? [...] with neg HPV Mammogram 2017 Colonoscopy 01/17/19 VENDETTE: See above SOC: Social History Socioeconomic History ??? Marital status: Spouse name: Not on file ??? Number of children: Not on file ??? Years of education: Not on file ??? Highest education level: Not on file Occupational History ??? Not on file Social Needs ??? Financial resource strain: Not on file ??? Food insecurity Worry: Not on file Inability: Not on file ??? Transportation needs Medical: Not on file Non-medical: Not on file Tobacco Use ??? Smoking status: Current Every Day Smoker Packs/day: 0.25 Years: 40.00 Pack years: 10.00 Types: Cigarettes ??? Smokeless tobacco: Never Used ??? Tobacco comment: 5-6 cigarettes per day Substance and Sexual Activity ??? Alcohol use: No Frequency: Never Binge frequency: Never ??? Drug use: No ??? Sexual activity: Not Currently Partners: Male control/protection: None Lifestyle ??? Physical activity Days per week: Not on file Minutes per session: Not on file ??? Stress: Not on file Relationships ??? Social connections Talks on phone: Not on file Gets together: Not on file Attends jain service: Not on file Active member of club or organization: Not on file Attends meetings of clubs or organizations: Not on file Relationship status: Not on file ??? Intimate partner violence Fear of current or ex partner: Not on file Emotionally abused: Not on file Physically abused: Not on file Forced sexual activity: Not on file Other Topics Concern ??? Not on file Social History Narrative ??? Not on file Allergies Allergen Reactions ??? Ibu [Ibuprofen Micronized] Rash No current facility-administered medications for this encounter. Current Outpatient Medications Medication Sig Dispense Refill ??? acetaminophen (TYLENOL) 500 MG tablet Take 1 tablet by mouth every 4 hours as needed for Pain Maximum allowable Acetaminophen amount = 4 Grams (4000 mg) / 24 hours. (Patient not taking: Reported on 05/13/2020) 30 tablet 0 ??? Calcium Carb-Cholecalciferol (CALCIUM [...] 1 puff by mouth once daily ??? medroxyPROGESTERone (PROVERA) 10 MG tablet Take 1 tablet by mouth once daily 30 tablet 5 ??? multivitamin daily (THERAGRAN) tablet Take 1 Tab by mouth daily with food. ??? [place]-3 Fatty Acids (FISH OIL PO) Take 1,000 [...] Take 10 mg by mouth at bedtime Exam in office per chart review: Exam: BP 122/82 Pulse 64 Ht 5' 5 Wt 133 lb BMI 22.13 kg/m2 ECO Gen: NAD, appears well after surgery Abd: soft, nontender, hernia absent, no hepatosplenomegaly : NEFG, normal vagina with no lesions, normal appearing cervix without laceration/lesion. Dark blood coming from cervical os Lymph: no supraclavicular, axillary, or inguinal adenopathy Skin: no rashes or lesions Neuro: oriented x3 Psychiatric: appropriate affect ?? Lab Review: No results for input(s): ABORH in the last 32065 hours. No results for input(s): WBC, HGB, HCT, PLTCOUNT in the last 11652 hours. No results for input(s): SODIUM, POTASSIUM, CHLORIDE, CO2, BUN, CREATININE, GLUCOSE, CALCIUM in thelast 42589 hours. Assessment/Plan: 70 year old with: H/o Endometrial Polyp with Simple Hyperplasia on Surveillance Plan to OR for HYSTEROSCOPY WITH DILATION & CURETTAGE Risks and Benefits of surgery were reviewed with the patient during her last clinic appointment, including but not limited to: infection, bleeding, possible need for blood transfusion, damage to surrounding structures (bladder, bowel, ureters). Hanny Allen MD 05/25/2020 2:44 PM Associated attestation - Kelley Sanford MD - 05/31/2020 9:59 AM CDT Quality Assurance Supervisor Final Onc Attending Addendum I have personally seen and examined the patient and agree with the documentation by Dr. Allen. Planned procedure is hysteroscopy, dilation and curettage. Kelley Sanford MD [employer] Installer of Gynecologic Oncology Dept of Obstetrics, Gynecology, and Women's Health 05/31/2020 9:59 AM documented in this encounter OR Notes * Brief Op Note - Loraine Chao MD - 05/31/2020 10:53 AM CDT Brief Operative Note Patient: Janeth Parker Date: 05/31/2020, 11:22 AM Preoperative Diagnosis: postmenopausal bleeding with history of simple endometrial hyperplasia on previous biopsy Postoperative Diagnosis: same as above Procedure: hysteroscopy with dilation and curettage Surgeon: Kelley Sanford MD Hiv Cts Specialist: Loraine Chao MD Type of anesthesia: MAC Complications: none EBL: 5 cc Urine output: 150 cc Drains: none IV Fluids: crystalloid 800 cc Brief findings: Atrophic appearing endometrium with normal appearing ostia bilaterally. Specimens: ID Type Source Tests Collected by Time Destination A : Pathology/Cytology Endometrium Curettings PATHOLOGY TISSUE EXAM (STL) Kelley Sanford MD 05/31/2020 1105 Full operative note to follow by Dr. Sanford. Loraine Chao MD 05/31/2020 11:22 AM * Operative - Kelley Sanford MD - 05/31/2020 10:53 AM CDT Gynecologic Oncology Operative Note 05/31/2020 2:18 PM Preoperative Diagnosis: postmenopausal bleeding, history of simple hyperplasia Postoperative Diagnosis: same Procedure: hysteroscopy, dilation and curettage Surgeon: Kelley Sanford MD Hiv Cts Specialist: Loraine Chao MD Type of anesthesia: MAC Complications: none EBL: 5 cc Urine output: 150 cc Drains: none IV Fluids: crystalloid 800 cc Indications for procedure: This is a 70 year old who presents for a repeat hysteroscopy, dilation and curettage. She underwent this procedure earlier this year and had an endometrial polyp with simple hyperplasia. Her most recent ultrasound was suspicious for a possible recurrent polyp and she did acknowledge occasional light spotting. Brief findings: Endometrium appears quite thin and atrophic. No evidence of polyp. Operative Details: After informed consent was obtained the patient was taken to the operating room with IVF running. After induction of MAC anesthesia, the patient was placed in dorsal lithotomy position with legs in Leandro stirrups. She was prepped and draped in the usual sterile fashion. The bladder was drained. A bivalve speculum was inserted into the vagina and the anterior lip of the cervix grasped with a single tooth tenaculum. A paracervical block was performed with 20cc total of 0.5% marcaine plain in divided doses at 3 and 9 o'clock. The cervix was gently dilated. A rigid 30 degree hysteroscope was usedto inspect the endometrial cavity. The hysteroscope was removed and a gentle curettage until obtaining a sharp cry was performed. The tenaculum was removed and puncture sites were hemostatic. The patient tolerated the procedure well and was taken to recovery in stable condition. Instrument, sponge,and needle counts were correct x2. I was present for the entirety of the procedure. Kelley Sanford MD [employer] Installer of Gynecologic Oncology Dept of Obstetrics, Gynecology, and Women's Health 05/31/2020 2:18 PM documented in this encounter Plan of Treatment Not on file documented as of this encounter Procedures Procedure Name Priority Date/Time Associated Diagnosis Comments CARDIAC RHYTHM STRIP ORDER 06/03/2020 1:16 PM CDT PATHOLOGY TISSUE EXAM (STL) Routine 05/31/2020 11:05 AM CDT Diagnosis unknown [facility] HYSTEROSCOPY,W/ENDO BX 05/31/2020 10:13 AM CDT Diagnosis unknown documented in this encounter Results * CARDIAC RHYTHM STRIP ORDER (06/03/2020 1:16 PM CDT) Narrative 06/03/2020 1:16 PM CDT Ordered by an unspecified provider. Scanned Document CARDIAC SERVICES ORD ERABLES * PATHOLOGY TISSUE EXAM (STL) (05/31/2020 11:05 AM CDT) Case Report Surgical Pathology Report ? Case: [id number] ? Authorizing Provider: ??Kelley Sanford MD ?Collected: ? 05/31/2020 11:05 AM ? Ordering Location: ? [facility] ? Received: ?05/31/2020 11:47 AM ? Pathologist: ? Mariaelena Ryan MD ? Specimen: ?Endometrium Curettings ? 06/01/2020 11:39 AM [facility] Final Diagnosis Uterus, endometrium, curettage - Superficial strips and fragments of inactive endometrium - Fragment of benign squamous epithelium 06/01/2020 11:39 AM [facility] Clinical History The patient is a 70-year-old woman. Operative procedure: endometrial curettage. 06/01/2020 11:39 AM [facility] Gross Description The specimen is received in a formalin-filled container, labeled with the patient's name Janeth Parker and endometrial curettage . It contains two Telfa specimens with rather scant church-hemorrhagic material, measuring in aggregate 1.2 x 1 x 0.3 cm. Wrapped and labeled A1. KS/taina 06/01/2020 11:39 AM [facility] Microscopic Description Microscopic examination substantiates the above diagnosis. 06/01/2020 11:39 AM [facility] Disclaimer All histochemical and/or immunohistochemical results are interpreted with controls that demonstrate appropriate staining reactions before reporting results. Note on use of immunocytochemistry reagents: This test was developed and its performance characteristic determined by [facility], Department of Laboratory Medicine. It has not [...] tissues. Results should be interpreted with caution. 06/01/2020 11:39 AM [facility] Embedded Images 06/01/2020 11:39 AM [facility] Pathology/Cytolo gy SPECIMEN FROM ENDOMETRIUM OBTAINED BY CURETTAGE / Unknown 05/31/2020 11:05 AM CDT 05/31/2020 11:47 AM CDT Comment:Pre-op diagnosis: Diagnosis unknown [R69] Kelley Sanford MD LAB - PATHOLOGY/CY TOLOGY ORDERABLES Performing Organization Address City/State/[facility] Co de Phone Number [facility] [address] [place], [place] [phone] documented in this encounter Visit Diagnoses Diagnosis Postmenopausal bleeding- Primary Diagnosis unknown Other unknown and unspecified cause of morbidity or mortality Diagnosis unknown Other unknown and unspecified cause of morbidity or mortality documented in this encounter Administered Medications Inactive Administered Medications - up to 3 most recent administrations Medication Order MAR Action Action Date Dose Rate Site 0.9% nacl irrigation solution PRN, Starting on Sun05/31/20 at 1107, Until Sun05/31/20 at 1233, Intra-op $ Given 05/31/2020 11:08 AM CDT 1 L Operative Site $ Given 05/31/2020 11:07 AM CDT 700 mL O perative Site acetaminophen (TYLENOL) tablet 1,000 mg 1,000 mg, Oral, ONCE, 1 dose, On Sun05/31/20 at 0930, Pre-op $ Given 05/31/2020 9:37 AM CDT 1,000 mg bupivacaine PF (MARCAINE PF) 0.5 % injection PRN, Starting on Sun05/31/20 at 1107, Until Sun05/31/20 at 1116, Intra-op $ Given 05/31/2020 11:07 AM CDT 20 mL Operative Site lactated ringers infusion at 20 mL/hr, Intravenous, PRE-OP CONTINUOUS, Starting on Sun05/31/20 at 0930, Until Sun05/31/20 at 1433, Pre-op $ New Bag/Syringe 05/31/2020 11:39 AM CDT 20 mL/hr $ New Bag/Syringe 05/31/2020 10:38 AM CDT $ New Bag/Syringe 05/31/2020 9:38 AM CDT 20 mL/ hr lidocaine PF (XYLOCAINE MPF) 1 % injection 0.2 mL 0.2 mL, Infiltration, PRE-OP MULTIPLE, 3 doses, Starting on Sun05/31/20 at 0924, Until Sun05/31/20 at 1433, May be used (0.2 ml locally to anesthetize prior to insertion)., Pre-op $ Given 05/31/2020 9:37 AM CDT 0.2 mL documented in this encounter Active and Recently Administered Medications Times are shown in CDT. Scheduled Medication Order 05/29/2020 05/30/2020 05/31/2020 acetaminophen (TYLENOL) tablet 1,000 mg (COMPLETED) 1,000 mg, Oral, ONCE, 1 dose, On Sun05/31/20 at 0930, Pre-op 0937 ($ Given - Prov ider: Kiara Copeland RN) atropine injection 0.4 mg 0.4 mg, Intravenous, POST-OP ONCE, 1 dose, On Sun05/31/20 at 1130, For heart rate less than 40. Notify physician., PACU 1130 (Due) lidocaine PF (XYLOCAINE MPF) 1 % injection 0.2 mL 0.2 mL, Infiltration, PRE-OP MULTIPLE, 3 doses, Starting on Sun05/31/20 at 0924, Until Sun05/31/20 at 1433, May be used (0.2 ml locally to anesthetize prior to insertion)., Pre-op 0937 ($ Given - Prov ider: Kiara Copeland RN) naloxone (NARCAN) injection 0.04 mg 0.04 mg, Intravenous, POST-OP MULTIPLE, Starting on Sun05/31/20 at 1117, Until Sun05/31/20 at 1433, If respiration rate is less than 7 per minute administer IV every 1 minute until respirations are greater than 12 per minute. Notify anesthesia immediately., PACU Continuous Medication Order 05/29/2020 05/30/2020 05/31/2020 lactated ringers infusion at 20 mL/hr, Intravenous, PRE-OP CONTINUOUS, Starting on Sun05/31/20 at 0930, Until Sun05/31/20 at 1433, Pre-op 0938 ($ New Bag/Syri nge - Provider: Kiara Copeland RN)1038 ($ New Bag/Syringe - Provider: GAYATHRI Posadas)1120 (Anesthesia Volume Adjustment - Provider: GAYATHRI Posadas)1139 ($ New Bag/Syringe - Provider: Connor Sainz RN) lactated ringers infusion at 125 mL/hr, Intravenous, CONTINUOUS, Starting on Sun05/31/20 at 1145, Until Sun05/31/20 at 1433, PACU 1145 (Due) PRN Medication Order 05/29/2020 05/30/2020 05/31/2020 0.9% nacl irrigation solution (CANCELED) PRN, Starting on Sun05/31/20 at 1107, Until Sun05/31/20 at 1233, Intra-op 1107 ($ Given - Prov ider: Kelley Sanford MD)1108 ($ Given - Provider: Kelley Sanford MD - Comment: used for insturments and clean up) acetaminophen (TYLENOL) tablet 650 mg 650 mg, Oral, EVERY 6 HOURS PRN, Mild Pain, Starting on Sun05/31/20 at 1204, Until Sun05/31/20 at 1433, Post-op bupivacaine PF (MARCAINE PF) 0.5 % injection (CANCELED) PRN, Starting on Sun05/31/20 at 1107, Until Sun05/31/20 at 1116, Intra-op 1107 ($ Given - Prov ider: Kelley Sanford MD) diphenhydrAMINE (BENADRYL) injection 25 mg 25 mg, Intravenous, ONCE PRN, Nausea/Vomiting, 1 dose, Starting on Sun05/31/20 at 1117, Until Sun05/31/20 at 1433, Second choice, use if first choice was ineffective., PACU fentaNYL (PF) (SUBLIMAZE) injection 50 mcg 50 mcg, Intravenous, EVERY 3 MIN PRN, Mild Pain, 4 doses, Starting on Sun05/31/20 at 1117, Until Sun05/31/20 at 1433, Maximum total of 4 doses. If patient reaches max total dose, please consult anesthesiologist prior to further administration of pain meds. Hold pain meds if there are signs of hypoventilation., PACU HYDROmorphone (DILAUDID) injection 0.5 mg 0.5 mg, Intravenous, EVERY 10 MIN PRN, Severe Pain, 4 doses, Starting on Sun05/31/20 at 1117, Until Sun05/31/20 at 1433, Maximum total of 4 doses If patient reaches max total dose, please consult anesthesiologist prior to further administration of pain meds. Hold pain meds if there are signs of hypoventilation., PACU metoclopramide (REGLAN) injection 5 mg 5 mg, Intravenous, EVERY 6 HOURS PRN, Nausea/Vomiting, Starting on Sun05/31/20 at 1204, Until Sun05/31/20 at 1433, If no relief from ondansetron (ZOFRAN) or prochlorperazine (COMPAZINE), use metoclopramide (REGLAN) in addition to ondansetron and prochlorperazine., Post-op metoclopramide (REGLAN) injection 5 mg 5 mg, Intramuscular, EVERY 6 HOURS PRN, Nausea/Vomiting, Starting on Sun05/31/20 at 1204, Until Sun05/31/20 at 1433, If no relief from ondansetron (ZOFRAN) or prochlorperazine (COMPAZINE), use metoclopramide (REGLAN). Use IM route if IV is unavailable in addition to ondansetron and prochlorperazine., Post-op morphine injection 4 mg 4 mg, Intravenous, EVERY 5 MIN PRN, Moderate Pain, 5 doses, Starting on Sun05/31/20 at 1117, Until Sun05/31/20 at 1433, Maximum total of 5 doses. If patient reaches max total dose, please consult anesthesiologist prior to further administration of pain meds. Hold pain meds if there are signs of hypoventilation., PACU ondansetron (disintegrating) (ZOFRAN ODT) tablet 4 mg 4 mg, Oral, EVERY 6 HOURS PRN, Nausea/Vomiting, Starting on Sun05/31/20 at 1204, Until Sun05/31/20 at 1433, Allow tablet to dissolve on the tongue, Post-op ondansetron (ZOFRAN) injection 4 mg 4 mg, Intravenous, ONCE PRN, Nausea/Vomiting, Starting on Sun05/31/20 at 1117, Until Sun05/31/20 at 1433, First choice, PACU ondansetron (ZOFRAN) injection 4 mg 4 mg, Intravenous, EVERY 6 HOURS PRN, Nausea/Vomiting, Starting on Sun05/31/20 at 1204, Until Sun05/31/20 at 1433, Administer IV if patient is NPO, actively vomiting, or unable to swallow., Post-op prochlorperazine (COMPAZINE) injection 10 mg 10 mg, Intravenous, ONCE PRN, Nausea/Vomiting, 1 dose, Starting on Sun05/31/20 at 1117, Until Sun05/31/20 at 1433, Third choice, use if first and second choice was ineffective., PACU prochlorperazine (COMPAZINE) injection 5 mg 5 mg, Intravenous, EVERY 6 HOURS PRN, Nausea/Vomiting, Starting on Sun05/31/20 at 1204, Until Sun05/31/20 at 1433, If no relief from ondansetron (ZOFRAN), use prochlorperazine (COMPAZINE) in addition to ondansetron., Post-op prochlorperazine (COMPAZINE) injection 5 mg 5 mg, Intramuscular, EVERY 6 HOURS PRN, Nausea/Vomiting, Starting on Sun05/31/20 at 1204, Until Sun05/31/20 at 1433, If no relief from ondansetron (ZOFRAN), use prochlorperazine (COMPAZINE) in addition to ondansetron. Use IM route if IV is unavailable., Post-op documented in this encounter Care Teams Erp Project Manager Relationship Specialty Start Date End Date Watson Perry MD [address] [place] [phone] PCP - General 12/03/19 documented as of this encounter
--- OUTSIDE RECORDS SUMMARY | 2024-11-23 15:03 | XMS_ITS | Encounter Summary ---
Author Organization [facility] Address [address] [facility] [place] [address] Care Team Providers Care Entry Level Recruiter Name Role Phone Watson Perry MD Primary Care Provider [phone] Reason for Visit * Reason Comments General PMB General Endo Thickening Encounter Details Date Type Department Care Team (Late st Contact Info) Description 12/11/2019 11:10 AM JAMB CUTTER Office Visit [facility] Obstetrics Gynecology and Women's Health [address] [place] [address] Kelley Sanford MD [address] [phone] Thickened endometrium (Primary Dx); Postmenopausal bleeding; Retroperitoneal lymphadenopathy; Mesenteric lymphadenopathy Social History Tobacco Use Types Packs/Day Years [...] Sign Reading Time Taken Comments Blood Pressure 104/68 12/11/2019 10:27 AM JAMB CUTTER Pulse 72 12/11/2019 10:27 AM JAMB CUTTER Temperature - - Respiratory Rate - - Oxygen Saturation - - Inhaled Oxygen Concentration - - Weight 62.6 kg (138 lb) 12/11/2019 10:27 AM JAMB CUTTER Height 167.6 cm (5' 6 ) 12/11/2019 10:27 AM JAMB CUTTER Body Mass Index 22.27 12/11/2019 10:27 AM JAMB CUTTER documented in this encounter Progress Notes * Kelley Sanford MD - 12/11/2019 11:14 AM CST [facility] Gynecologic Oncology New Patient Visit Date of Service: 12/12/2019 Patient Name: Janeth Parker Chief Complaint: postmenopausal bleeding History of Present Illness: Janeth Parker is a 69 year old referred to me from Yanely CAMPBELL for concern for endometrial cancer. The patient has had 7- 8 months of postmenopausal bleeding that had been similar to monthly periods up until recently when it became a bit heavier. She entered menopause at age 54. Denies pain, bowel/bladder changes, or any other sx. Attempt at EMB not diagnostic. Imagin11/07/2019 US: TVUS 10 x 4.6 x 4.6, EMS 18mm, R ov 2 x 1.5 x 1.1; L ov 2 x 1.2 x 1.1 11/10/2019 CT A/P: adenopathy in mesenteric arcade and retroperitoneum , thickened endometrium, shotty adenopathy in bilateral internal iliac chain Path: 11/04/2019 pap wnl 11/17/2019 EMB fragments of inactive endometrium though comment that detached tissue makes it more difficult to assess Past Medical History: Past Medical History: Diagnosis Date ??? Abnormal Pap smear of cervix ??? Actinic keratoses ??? Adjustment disorder with anxiety ??? Benign essential tremor ??? COPD (chronic obstructive pulmonary disease) ??? Functional constipation ??? GERD (gastroesophageal reflux disease) ??? Hypercholesterolemia ??? Insomnia ??? Irregular heartbeat ??? RLS (restless legs syndrome) ??? Skin cancer of nose Past Surgical History: Past Surgical History: Procedure Laterality Date ??? Breast Lumpectomy right- non-cancerous ??? Bunionectomy ??? MOH'S SURGERY nose ??? SURGICAL HISTORY OF R ELBOW ??? SURGICAL HISTORY OF 6-2-10 full thickness skin graft to nose cartilage graft local tissue rt ear ??? SURGICAL HISTORY OF right thumb surgery Family History: No family history on file. Denies family history of breast, ovarian, or colon cancer. Social History: Social History Socioeconomic History ??? Marital status: Spouse name: Not on file ??? Number of children: Not on file ??? Years of education: Not on file ??? Highest education level: Not on file Occupational History ??? Not on file Social Needs ??? Financial resource strain: Not on file ??? Food insecurity: Worry: Not on file Inability: Not on file ??? Transportation needs: Medical: Not on file Non-medical: Not on file Tobacco Use ??? Smoking status: Current Every Day Smoker Packs/day: 0.25 Years: 40.00 Pack years: 10.00 Types: Cigarettes ??? Smokeless tobacco: Never Used ??? Tobacco comment: 5-6 cigarettes per day Substance and Sexual Activity ??? Alcohol use: No Frequency: Never Binge frequency: Never ??? Drug use: No ??? Sexual activity: Not Currently control/protection: None Lifestyle ??? Physical activity: Days per week: Not on file Minutes per session: Not on file ??? Stress: Not on file Relationships ??? Social connections: Talks on phone: Not on file Gets together: Not on file Attends congregation service: Not on file Active member of club or organization: Not on file Attends meetings of clubs or organizations: Not on file Relationship status: Not on file ??? Intimate partner violence: Fear of current or ex partner: Not on file Emotionally abused: Not on file Physically abused: Not on file Forced sexual activity: Not on file Other Topics Concern ??? Not on file Social History Narrative ??? Not on file Gynecologic History: Menopause: 54 Last pap: 2019 Last mammogram: 2019 Last colonoscopy: 2017 Review of Systems: Constitutional: denies weight changes Mouth: denies oral ulcers Cardiovascular: denies palpitations, lightheadedness Respiratory: denies cough, difficulty breathing Gastrointestinal: denies nausea, vomiting, diarrhea, constipation, heartburn Genitourinary: denies dysuria or hematuria Musculoskeletal: denies weakness Integumentary: denies skin changes, rash Neurological: denies headache, blurry vision, neuropathy Psychiatric: denies depression, anxiety, sleep disturbance Hematologic/Lymphatic: denies bruising, nosebleeds, bleeding gums Exam: BP 104/68 Pulse 72 Ht 5' 6 Wt 138 lb BMI 22.27 kg/m2 ECO Gen: NAD, appears stated age Neck: supple CV: RRR Lungs: CTAB Abd: soft, nontender, hernia absent, no hepatosplenomegaly : Breast exam: deferred External genitalia: normal appearance, normal hair distribution, no lesions Urethral meatus: normal Urethra: normal Bladder: normal, nontender Vagina: normal Cervix: normal Uterus: enlarged to about 12 weeks sized, retroverted Adnexa: wnl Anus: wnl Rectal exam: deferred Lymph: no supraclavicular, axillary, or inguinal adenopathy Skin: no rashes or lesions Neuro: oriented x3 Psychiatric: appropriate affect Labs: CA125 24 Assessment/Plan: 69 year old with postmenopausal bleeding and imaging concerning for cancer Discussed imaging reports which were available identifying thickened endometrium and lymphadenopathy. Discussed concern for underlying cancer and with changes in uterus that would be most suspicious for primary site. We discussed that her initial biopsy was not diagnostic but with endometrial stripe 4x thicker than expected for her age concerning for pathologic process. We discussed the following plans: will request CD of her abd/pelvis CT images to evaluate where theLAD is and if it is resectable. Will need CT chest for complete staging. Repeat endometrial assessment with hysteroscopy, dilation and curettage. Discussed risks of bleeding, infection, uterine perforation. I have spent 40 minutes with the patient of which >50% was spent in counseling. Kelley Sanford MD Sensitometrist of Gynecologic Oncology Dept of Obstetrics, Gynecology, and Women's Health 12/12/2019 2:21 PM CUTTER documented in this encounter Plan of Treatment Not on file documented as of this encounter Visit Diagnoses Diagnosis Thickened endometrium- Primary Nonspecific (abnormal) findings on radiological and other examination of genitourinary organs Postmenopausal bleeding Retroperitoneal lymphadenopathy Enlargement of lymph nodes Mesenteric lymphadenopathy Enlargement of lymph nodes documented in this encounter Care Teams Entry Level Recruiter Relationship Specialty Start Date End Date Watson Perry MD [address] [place] [phone] PCP - General 12/03/19 documented as of this encounter
--- OUTSIDE RECORDS SUMMARY | 2024-11-23 15:03 | XMS_ITS | Encounter Summary ---
Author Organization [facility] Address [address] [facility] [place] [address] Care Team Providers Care Sales Force Developer Name Role Phone Watson Perry MD Primary Care Provider [phone] Reason for Visit * Reason Onset Date Comments Reschedule Appointment 03/05/2020 Encounter Details Date Type Department Care Team (Late st Contact Info) Description 03/05/2020 Telephone [facility] Obstetrics Gynecology and Women's Health [address] [place] [address] Kelley Sanford MD [address] [phone] Reschedule Appointment Social History Tobacco Use Types Packs/Day [...] encounter Miscellaneous Notes * Telephone Encounter - Sonya Valadez - 03/05/2020 10:22 AM CDT Patient reached and rescheduled appt due to Covid-19 outbreak. Patient to call with any questions or concerns before rescheduled appt. Discussed s/s of recurrence, including vaginal bleeding, rectal bleeding, blood in urine, pelvic pain, unilateral leg edema, new masses or lesions, persistent nausea and vomiting, or persistent cough Patient verbalizes understanding New appt: 05/13/20 10:45 usl, 11:50 with documented in this encounter Plan of Treatment Not on file documented as of this encounter Visit Diagnoses Not on filedocumented in this encounter Care Teams Sales Force Developer Relationship Specialty Start Date End Date Watson Perry MD [address] [place] [phone] PCP - General 12/03/19 documented as of this encounter
--- OUTSIDE RECORDS SUMMARY | 2024-11-23 15:03 | XMS_ITS | Encounter Summary ---
Author Organization [facility] Address [address] [facility] [place] [address] Care Team Providers Care Foreign Language Stenographer Name Role Phone Watson Perry MD Primary Care Provider [phone] Reason for Visit * Reason Onset Date Comments Future Appointment 01/02/2020 Encounter Details Date Type Department Care Team (Late st Contact Info) Description 01/02/2020 Telephone [facility] Obstetrics Gynecology and Women's Health [address] [place] [address] Kelley Sanford MD [address] [facility] [address] [place], [place] [phone] Future Appointment Social History Tobacco Use Types Packs/Day [...] Telephone Encounter - Leanne Shell RN - 01/08/2020 11:23 AM INTENS[facility] CARE AMBULANCE PARAMEDIC Tried to call patient again- left appt details on vm [facility] AMBULANCE PARAMEDIC * Telephone Encounter - Leanne Shell RN - 01/05/2020 10:50 AM INTENSIVE CARE AMBULANCE PARAMEDIC Left another message for patient. Appts not until March-so will try again [facility] AMBULANCE PARAMEDIC * Telephone Encounter - Leanne Shell RN - 01/02/2020 4:24 PM CST Can you please schedule for US and appt in 3 months. I placed order for US already US- , 04/01 @ 1pm OV- 04/01 @ 1:40pm [facility] AMBULANCE PARAMEDIC documented in this encounter Plan of Treatment Not on file documented as of this encounter Visit Diagnoses Not on filedocumented in this encounter Care Teams Foreign Language Stenographer Relationship Specialty Start Date End Date Watson Perry MD [address] [place] [phone] PCP - General 12/03/19 documented as of this encounter
--- OUTSIDE RECORDS SUMMARY | 2024-11-23 15:03 | XMS_ITS | Encounter Summary ---
Author Organization [facility] Address [address] [facility] [place] [address] Care Team Providers Care Stem Cleaning Machine Feeder Name Role Phone Watson Perry MD Primary Care Provider [phone] Reason for Visit * Reason Onset Date Comments Order 01/01/2020 mammogram Encounter Details Date Type Department Care Team (Late st Contact Info) Description 01/01/2020 Telephone [facility] Obstetrics Gynecology and Women's Health [address] [place] [address] Kelley Sanford MD [address] [phone] Order (mammogram) Social History Tobacco Use Types Packs/Day Years [...] Telephone Encounter - Leanne Shell RN - 01/01/2020 11:43 AM SHOT BLASTER Returned call to patient Will fax order to [place] as per patients request FAX # Patient aware BLASTER * Telephone Encounter - Raffi Moffett - 01/01/2020 9:55 AM CST Pt called in stating she needs a mammogram and her year is not up until March but if she can get a diagnostic anshul then she can get it now. Callback#[phone] BLASTER documented in this encounter Plan of Treatment Not on file documented as of this encounter Visit Diagnoses Diagnosis Endometrial cancer (HCC)- Primary Malignant neoplasm of corpus uteri, except isthmus documented in this encounter Care Teams Stem Cleaning Machine Feeder Relationship Specialty Start Date End Date Watson Perry MD [address] [place] [phone] PCP - General 12/03/19 documented as of this encounter
--- OUTSIDE RECORDS SUMMARY | 2024-11-23 15:03 | XMS_ITS | Encounter Summary ---
Author Organization [facility] Address [address] [place] [address] Care Team Providers Care Digital Hardware Design Engineer Name Role Phone Watson Perry MD Primary Care Provider [phone] Reason for Visit * Auth/Cert Specialty Diagnoses / Procedures Referred By Osielac t Referred To Contact Diagnoses Diagnosis unknown Diagnosis unknown [R69] Procedures HYSTEROSCOPY WITH DILATION & CURETTAGE Referral ID Status Reason Start Date Expiration Date Visits Re quested Visits Authorized [id number] 1 1 Encounter Details Date Type Department Care Team (Late st Contact Info) Description 12/15/2019 9:00 AM JAVA TECH - 12/15/2019 10:18 AM [facility] Surgery [facility] PERIOPERATIVE [address] [place] [address] Kelley Sanford MD [facility] [place] [address] HYSTEROSCOPY WITH DILATION & CURETTAGE Surgery Details Date/Time Status Location OR Service Patient Class Case Class Case Type Trauma Case? 12/15/2019 9:00 AM Posted [facility] MAIN OR OR 08 Gynecology Surgery Day Care Elective > 5 days Panel 1 Procedure LRB Anes Op Region Wound Class Comments HYSTEROSCOPY WITH DILATION & CURETTAGE N/A MAC V agina Clean Contaminated Surgeon Surgeon Role Service Panel Kelley Sanford MD Primary Gynecology 1 Amalia Rome MD Resident - Assisting Gynecology 1 Special Needs SURGEON REQUEST SPINAL AND LOCAL PER OFFICE ([place])--12/11 CT documented in this encounter Social History Tobacco [...] Sign Reading Time Taken Comments Blood Pressure 122/76 12/15/2019 10:15 AM JAVA TECH Pulse 59 12/15/2019 10:15 AM JAVA TECH Temperature 36.3 ??C (97.3 ??F) 12/15/2019 9:53 AM CS T Respiratory Rate 13 12/15/2019 10:15 AM JAVA TECH Oxygen Saturation 92% 12/15/2019 10:15 AM JAVA TECH Inhaled Oxygen Concentration - - Weight 63 kg (139 lb) 12/15/2019 7:29 AM JAVA TECH Height 165.1 cm (5' 5 ) 12/15/2019 7:29 AM JAVA TECH Body Mass Index 23.13 12/15/2019 7:29 AM JAVA TECH documented in this encounter Medications at Time [...] (one) tablet by mouth daily with food Ames-3 Fatty Acids (FISH OIL PO) Take 1,000 mg by mouth 3 times daily pramipexole (MIRAPAX) 0.5 MG tablet Take 1 (one) tablet by mouth at bedtime propranolol CR 24hr (INDERAL LA) 60 MG capsule Take 1 (one) capsule by mouth once daily rosuvastatin (CRESTOR) 10 MG tablet Take 1 (one) tablet by mouth at bedtime 11/09/2019 primidone (MYSOLINE) 50 MG tablet Take 5 (five) tablets by mouth at bedtime 10/03/2019 04/16/2024 documented as of this encounter H&P Notes * Kelley Sanford MD - 12/14/2019 5:06 PM CST Pre Op History & Physical Per chart review Pre-Operative Diagnosis: Postmenopausal bleeding, thickened endometrial stripe Planned Procedure: Hysteroscopy w/ dilation and curettage Surgeon: Kelley Sanford MD History: Janeth Parker is a 69 year old referred to me from Yanely CAMPBELL for concern for endometrial cancer. The patient has had 7-8 months of postmenopausal bleeding that had been similar to monthly periods up until recently when it became a bit heavier. She entered menopause at age 54. Denies pain,bowel/bladder changes, or any other sx. Attempt at EMB not diagnostic. Imagin11/07/2019 US: TVUS 10 x 4.6 x 4.6, EMS 18mm, R ov 2 x 1.5 x 1.1; L ov 2 x 1.2 x 1.1 ?? 11/10/2019 CT A/P: adenopathy in mesenteric arcade and retroperitoneum , thickened endometrium, shotty adenopathy in bilateral internal iliac chain ?? Path: 11/04/2019 pap wnl ?? 11/17/2019 EMB fragments of inactive endometrium though comment that detached tissue makes it more difficult to assess PMH: Past Medical History: Diagnosis Date ??? [...] with neg HPV Mammogram 2017 Colonoscopy 01/17/19 SOC: Social History Socioeconomic History ??? Marital [...] file Gets together: Not on file Attends mandaen service: Not on file Active member of [...] Outpatient Medications Medication Sig Dispense Refill ??? Calcium Carb-Cholecalciferol (CALCIUM 600 + D PO) Take by mouth 2 times daily ??? citalopram (CELEXA) 20 MG tablet Take 1 tablet by mouth once daily ??? clonazePAM (KLONOPIN) 1 MG tablet Take 1 mg by mouth at bedtime. ??? esomeprazole (NEXIUM) 20 MG capsule Take 1 capsule by mouth once daily ??? multivitamin daily (THERAGRAN) tablet Take 1 Tab by mouth daily with food. ??? Ames-3 Fatty Acids (FISH OIL PO) Take 1,000 mg by mouth 3 times daily ??? pramipexole (MIRAPAX) 0.5 MG tablet Take 0.5 mg by mouth at bedtime. ??? primidone (MYSOLINE) 50 MG tablet Take 1 tablet by mouth 2 times daily ??? propranolol CR 24hr (INDERAL LA) 60 MG capsule Take 60 mg by mouth daily. ??? rosuvastatin (CRESTOR) 10 MG tablet Take 10 mg by mouth at bedtime Physical Exam (Per Dr. Sanford on 12/11/19): Gen: NAD, appears stated age Neck: supple [...] lesions Neuro: oriented x3 Psychiatric: appropriate affect Lab Review: No results for input(s): ABORH in the last 29352 hours. Recent Labs Component Name 05/11/10 1104 WBC 11.5* HGB 14.7 HCT 42.9 PLTCOUNT 376 Recent Labs Component Name 05/11/10 1104 SODIUM 143 POTASSIUM 4.5 CHLORIDE 106 CO2 28 BUN 9 CREATININE 0.82 GLUCOSE 101 CALCIUM 10.2 CA125 24 Assessment/Plan: 69 year old with postmenopausal bleeding and a thickened endometrial stripe. Plan to proceed with a hysteroscopy w/ dilation and curettage. Risks and Benefits of surgery were reviewed with the patient during her last clinic appointment, including but not limited to: infection, bleeding, possible need for blood transfusion, damage to surrounding structures (bladder, bowel, ureters). Amalia Rome MD 12/14/2019 5:07 PM Medical Translator Onc Attending Addendum I have personally seen and examined the patient and agree with the documentation by Dr. Rome. Planned procedure is hysteroscopy, dilation and curettage. Kelley Sanford MD Manager Film of Gynecologic Oncology Dept of Obstetrics, Gynecology, and Women's Health 12/15/2019 8:22 AM TECH documented in this encounter OR Notes * Brief Op Note - Amalia Rome MD - 12/15/2019 9:00 AM CST R4 Brief Op Note 12/15/2019 9:57 AM Preoperative Diagnosis: Postmenopausal bleeding, thickened endometrial stripe Postoperative Diagnosis: Same, small endometrial polyp Procedure: Diagnostic hysteroscopy, dilation and curettage Surgeon: Kelley Sanford MD Mechanic'S Assistant: Amalia Rome MD Type of anesthesia: MAC Complications: None EBL: 5 cc Urine output: 50 cc Drains: None Brief findings: Slightly enlarged retroverted uterus on bimanual exam. Small endometrial polyp seenon the left lateral wall of the uterus, but otherwise the endometrial cavity appeared atrophic. Polyp removed with polyp forceps and endometrial curettings were taken and sent to pathology. Procedure Details: To be dictated by Dr. Juvenal Rome MD 12/15/2019 9:57 AM TECH * Operative - Kelley Sanford MD - 12/15/2019 9:00 AM CST Gynecologic Oncology Operative Note 12/15/2019 9:55 AM Preoperative Diagnosis: thickened endometrium, postmenopausal bleeding Postoperative Diagnosis: same, endometrial polyp Procedure: hysteroscopy, dilation and curettage, polypectomy Surgeon: Kelley Sanford MD Mechanic'S Assistant: Amalia Rome MD Type of anesthesia: MAC Complications: none EBL: 5 cc Urine output: 50 cc Drains: none IV Fluids: crystalloid 1000 cc Indications for procedure: This is a 69 year old who has been having 7-8 months of postmenopausal bleeding. An endometrial biopsy was negative but there was concern that this may not have completely sampled the endometrial cavity. Brief findings: Endometrial polyp arising from left lateral aspect of endometrium. Otherwise the tissue appeared relatively atrophic. Operative Details: After informed consent was obtained [...] hysteroscope was usedto inspect the endometrial cavity. Polyp forceps were used to grasp the polyp and extract it. The scope was reinserted to confirm removal of the polyp. The hysteroscope was removed and a gentle curettage until obtaining a sharp cry was performed. The tenaculum was removed and puncture sites were hemostatic. The patient tolerated the procedure well and was taken to recovery in stable condition. Instrument, sponge, and needle counts were correct x2. I was present for the entirety of the procedure. Kelley Sanford MD Manager Film of Gynecologic Oncology Dept of Obstetrics, Gynecology, and Women's Health 12/15/2019 9:55 AM TECH documented in this encounter Plan of Treatment Not on file documented as of this encounter Procedures Procedure Name Priority Date/Time Associated Diagnosis Comments CARDIAC RHYTHM STRIP ORDER 12/17/2019 6:54 PM JAVA TECH PATHOLOGY TISSUE EXAM (STL) Routine 12/15/2019 9:30 AM JAVA TECH Diagnosis unknown AK HYSTEROSCOPY,W/EN DO BX 12/15/2019 8:25 AM JAVA TECH Diagnosis unknown Special Needs SURGEON REQUEST SPINAL AND LOCAL PER OFFICE ([place])--12/11 CT documented in this encounter Results * CARDIAC RHYTHM STRIP ORDER (12/17/2019 6:54 PM JAVA TECH) Narrative 12/17/2019 6:54 PM JAVA TECH Ordered by an unspecified provider. Scanned Document CARDIAC SERVICES ORD ERABLES * GROSS + MICRO EXAM (STL) (12/15/2019 9:30 AM JAVA TECH) Case Report Surgical Pathology Report ? Case: [id number] ? Authorizing Provider: ??Kelley Sanford MD ?Collected: ? 12/15/2019 09:30 AM ? Ordering Location: ? [facility] ? Received: ?12/15/2019 11:02 AM ? Pathologist: ? Renny Julian MD ? Specimens: ?? A) - Polyp Endometrial ? B) - Endometrium Curettings ? 12/18/2019 6:30 AM [facility] Final Diagnosis 1. Uterus, endometrium, polyp : -- Polypoid endometrium with focal simple hyperplasia 2. Uterus, endometrium, curettage: -- Proliferative pattern endometrium with focal simple hyperplasia -- Fragments of non-dysplastic stratified squamous epithelium WALLY/jesica 12/18/2019 6:30 AM [facility] Clinical History Diagnosis unknown. 12/18/2019 6:30 AM [facility] Gross Description A. Received in formalin labeled ParkerDeweyJaneth and polyp endometrial are 5-10 irregular fragments of church-pink to red-brown tissue ranging from 0.2-2 cm in greatest dimension. The specimen is entirely submitted in cassette A1. B. Received in formalin labeled Parker, Janeth and endometrial curettings is a 1 x 1 x 0.2 cm aggregate of church-pink friable tissue fragments. The specimen is entirely submitted in cassette B1. SW/scs 12/18/2019 6:30 AM [facility] Microscopic Description The endometrium in both biopsies is negative for chronic endometritis and malignancy. JLC/jesica 12/18/2019 6:30 AM [facility] Disclaimer All histochemical and/or immunohistochemical results are interpreted with controls that demonstrate appropriate staining reactions before reporting results. Note on use of immunocytochemistry reagents: This test was developed and its performance characteristic determined by [facility], Department of Laboratory Medicine. It has not been cleared or approved by the U.S. Food and Drug Administration (FDA). The FDA has determined that such clearance or approval is not necessary. The test is used for clinical purpose. It should not be regarded as investigational or for research. This laboratory is certified to perform high complexity testing. 12/18/2019 6:30 AM [facility] Embedded Images 12/18/2019 6:30 AM [facility] Pathology/Cytology ENDOMETRIAL POLYP SPECIMEN / Unknown 12/15/2019 9:30 AM JAVA TECH 12/15/2019 11:02 AM JAVA TECH Comment:Pre-op diagnosis: Diagnosis unknown [R69] Miscellaneous samples (specimen) SPECIMEN FROM ENDOMETRIUM OBTAINED BY CURETTAGE / Unknown 12/15/2019 9:37 AM JAVA TECH 12/15/2019 11:02 AM JAVA TECH Comment:Pre-op diagnosis: Diagnosis unknown [R69] Kelley Sanford MD LAB - PATHOLOGY/CY TOLOGY ORDERABLES [facility] [address] [place] [address] documented in this encounter Visit Diagnoses Diagnosis Diagnosis unknown Other unknown and unspecified cause of morbidity or mortality Diagnosis unknown Other unknown and unspecified cause of morbidity or mortality documented in this encounter Administered Medications Inactive Administered Medications - up to 3 most recent administrations Medication Order MAR Action Action Date Dose Rate Site acetaminophen (TYLENOL) tablet 1,000 mg 1,000 mg, Oral, ONCE, 1 dose, On Sun12/15/19 at 0730, Pre-op $ Given 12/15/2019 7:42 AM JAVA TECH 1,000 mg bupivacaine PF (MARCAINE PF) 0.5 % injection PRN, Starting on Sun12/15/19 at 0945, Until Sun12/15/19 at 0953, Intra-op $ Given 12/15/2019 9:45 AM JAVA TECH 20 mL Operative Site lactated ringers infusion at 20 mL/hr, Intravenous, PRE-OP CONTINUOUS, Starting on Sun12/15/19 at 0730, Until Sun12/15/19 at 1456, Pre-op $ New Bag/Syringe 12/15/2019 7:43 AM JAVA TECH 20 mL/hr lactated ringers infusion at 125 mL/hr, Intravenous, CONTINUOUS, Starting on Sun12/15/19 at 1045, Until Sun12/15/19 at 1456, PACU $ New Bag/Syringe 12/15/2019 1:04 PM JAVA TECH 125 mL/hr lidocaine (XYLOCAINE MPF) 1 % injection 0.2 mL 0.2 mL, Infiltration, PRE-OP MULTIPLE, 3 doses, Starting on Sun12/15/19 at 0715, Until Sun12/15/19 at 1456, May be used (0.2 ml locally to anesthetize prior to insertion)., Pre-op $ Given 12/15/2019 7:42 AM JAVA TECH 0.2 mL documented in this encounter Active and Recently Administered Medications Times are shown in JAVA TECH. Scheduled Medication Order 12/13/2019 12/14/2019 12/15/2019 acetaminophen (TYLENOL) tablet 1,000 mg (COMPLETED) 1,000 mg, Oral, ONCE, 1 dose, On Sun12/15/19 at 0730, Pre-op 0742 ($ Given - Prov ider: Mateus Ellison RN) atropine injection 0.4 mg 0.4 mg, Intravenous, POST-OP ONCE, 1 dose, On Sun12/15/19 at 1045, For heart rate less than 40. Notify physician., PACU 1045 (Due) lidocaine (XYLOCAINE MPF) 1 % injection 0.2 mL 0.2 mL, Infiltration, PRE-OP MULTIPLE, 3 doses, Starting on Sun12/15/19 at 0715, Until Sun12/15/19 at 1456, May be used (0.2 ml locally to anesthetize prior to insertion)., Pre-op 0742 ($ Given - Prov ider: Mateus Ellison RN) naloxone (NARCAN) injection 0.04 mg 0.04 mg, Intravenous, POST-OP MULTIPLE, Starting on Sun12/15/19 at 1039, Until Sun12/15/19 at 1456, If respiration rate is less than 7 per minute administer IV every 1 minute until respirations are greater than 12 per minute. Notify anesthesia immediately., PACU Continuous Medication Order 12/13/2019 12/14/2019 12/15/2019 lactated ringers infusion at 20 mL/hr, Intravenous, PRE-OP CONTINUOUS, Starting on Sun12/15/19 at 0730, Until Sun12/15/19 at 1456, Pre-op 0743 ($ New Bag/Syri nge - Provider: Mateus Ellison RN) lactated ringers infusion at 125 mL/hr, Intravenous, CONTINUOUS, Starting on Sun12/15/19 at 1045, Until Sun12/15/19 at 1456, PACU 1304 ($ New Bag/Syri nge - Provider: Edwige Pinzon RN) PRN Medication Order 12/13/2019 12/14/2019 12/15/2019 acetaminophen (TYLENOL) tablet 650 mg 650 mg, Oral, EVERY 6 HOURS PRN, Mild Pain, Starting on Sun12/15/19 at 1103, Until Sun12/15/19 at 1456, Post-op bupivacaine PF (MARCAINE PF) 0.5 % injection (CANCELED) PRN, Starting on Sun12/15/19 at 0945, Until Sun12/15/19 at 0953, Intra-op 0945 ($ Given - Prov ider: Kelley Sanford MD) fentaNYL (PF) (SUBLIMAZE) injection 50 mcg 50 mcg, Intravenous, EVERY 3 MIN PRN, Mild Pain, 4 doses, Starting on Sun12/15/19 at 1039, Until Sun12/15/19 at 1456, Maximum total of 4 doses. If patient reaches max total dose, please consult anesthesiologist prior to further administration of pain meds. Hold pain meds if there are signs of hypoventilation., PACU HYDROmorphone (DILAUDID) injection 0.5 mg 0.5 mg, Intravenous, EVERY 10 MIN PRN, Severe Pain, 4 doses, Starting on Sun12/15/19 at 1039, Until Sun12/15/19 at 1456, Maximum total of 4 doses If patient reaches max total dose, please consult anesthesiologist prior to further administration of pain meds. Hold pain meds if there are signs of hypoventilation., PACU morphine injection 4 mg 4 mg, Intravenous, EVERY 5 MIN PRN, Moderate Pain, 5 doses, Starting on Sun12/15/19 at 1039, Until Sun12/15/19 at 1456, Maximum total of 5 doses. If patient reaches max total dose, please consult anesthesiologist prior to further administration of pain meds. Hold pain meds if there are signs of hypoventilation., PACU ondansetron (ZOFRAN) injection 4 mg 4 mg, Intravenous, ONCE PRN, Nausea/Vomiting, Starting on Sun12/15/19 at 1039, Until Sun12/15/19 at 1456, First choice, PACU oxyCODONE (immediate release) (ROXICODONE) tablet 5 mg 5 mg, Oral, EVERY 4 HOURS PRN, Moderate Pain, Starting on Sun12/15/19 at 1103, Until Sun12/15/19 at 1456, Post-op documented in this encounter Care Teams Digital Hardware Design Engineer Relationship Specialty Start Date End Date Watson Perry MD [address] [place] [phone] PCP - General 12/03/19 documented as of this encounter
--- OUTSIDE RECORDS SUMMARY | 2024-11-23 15:03 | XMS_ITS | Encounter Summary ---
Author Organization [facility] Address [address] [place] [address] Care Team Providers Care Bending Machine Operator Name Role Phone Unknown, Provider Primary Care Provider Unavaila ble Encounter Details Date Type Department Care Team (Latest Contact Info) Description 05/11/2010 10:39 AM CDT - 05/11/2010 11:59 PM CDT Hospital Encounter [facility] [address] [place] [address] Unknown, Provider ABR Sedation Discharge Disposition: Home or Self Care Social History Tobacco Use Types Packs/Day Years Used Date Smoking Tobacco: Never Assessed Sex and Gender Information Value Date Recorded Sex Assigned at Not on file Gender Identity Not on file Sexual Orientation Not on file documented as of this encounter Miscellaneous Notes * Miscellaneous Scans - Document, Scanned - 05/11/2010 12:00 AM CDT * Miscellaneous Scans - Document, Scanned - 05/11/2010 12:00 AM CDT * Miscellaneous Scans - Document, Scanned - 05/11/2010 12:00 AM CDT * Miscellaneous Scans - Document, Scanned - 05/11/2010 12:00 AM CDT documented in this encounter Plan of Treatment Not on file documented as of this encounter Visit Diagnoses Not on filedocumented in this encounter Care Teams Bending Machine Operator Relationship Specialty Start Date End Date Unknown, Provider PCP - General 05/11/10 05/11/10 documented as of this encounter
--- OUTSIDE RECORDS SUMMARY | 2024-11-23 15:03 | XMS_ITS | Encounter Summary ---
Author Organization [facility] Address [facility] [place] [address] Care Team Providers Care Irrigating Pump Operator Name Role Phone Unknown, Provider Primary Care Provider Unavaila ble Encounter Details Date Type Department Care Team (Latest Contact Info) Description 05/20/2010 12:01 AM CDT - 05/20/2010 6:42 PM CDT Hospital Encounter HC PERIOPERATIVE [address] [place] [address] Sathish García MD [address] [place] [address] Surgery General Discharge Disposition: Home or Self Care Social History Tobacco Use Types Packs/Day Years Used Date Smoking Tobacco: Every Day Cigarettes Alcohol Use Standard Drinks/Week Comments No 0 (1 standard drink = 0.6 oz pur e alcohol) Sex and Gender Information Value Date Recorded Sex Assigned at Not on file Gender Identity Not on file Sexual Orientation Not on file documented as of this encounter Last Filed Vital Signs Vital Sign Reading Time Taken Comments Blood Pressure 108/69 05/20/2010 6:27 PM CDT Pulse 51 05/20/2010 6:27 PM CDT Temperature 36.4 ??C (97.6 ??F) 05/20/2010 5:40 PM CD T Respiratory Rate 16 05/20/2010 5:40 PM CDT Oxygen Saturation 93% 05/20/2010 6:27 PM CDT Inhaled Oxygen Concentration - - Weight 59 kg (130 lb) 05/20/2010 12:35 PM CDT Height 167.6 cm (5' 6 ) 05/20/2010 12:35 PM CDT Body Mass Index 20.98 05/20/2010 12:35 PM CDT documented in this encounter Discharge Instructions * Discharge Instructions* Amanda Pantoja RN - 05/20/2010 5:44 PM CDT Discharge Instructions for: Janeth Lake Discharge Procedure Orders DIET INSTRUCTIONS Start light diet today (i.e soup, Jell-O, toast). If no nausea or vomiting, may resume normal diet.In case of nausea or vomiting, reduce diet to fluids low in acid (water, sports drinks, white sodas). As you are able to tolerate the fluids, gradually increase your diet. IF NAUSEA AND/OR VOMITING PERSISTS, CONTACT YOUR PHYSICIAN. NO ALCOHOLIC BEVERAGES For the next 24 hours or while taking pain medication. REST TODAY Increase activity tomorrow as tolerated. Walk 10 - 15 minutes, three times a day DO NOT DRIVE Do not drive or operate hazardous machinery while taking pain medication. Order Specific Question Answer Comments For how long? One day ADDITIONAL ACTIVITY INSTRUCTIONS 1. No strenous activity for two weeks 2. Bending 3. No heavy lifting MAY SHOWER Order Specific Question Answer Comments after... One week KEEP DRESSING DRY DO NOT REMOVE DRESSING UNTIL OFFICE VISIT Right ear dressing do not remove WOUND CARE AT HOME Neosporing BID to nasal incisions KAN ARROYO To bulb suction empty and record every 8 hours and as needed. GENERAL ANESTHESIA /IV SEDATION INSTRUCTIONS For the remainder of the day, plan to relax. A feeling of dizziness, light- headedness or drowsinessis not unusual. Move cautiously, fast movements can make this feeling worse. If you have been lyingdown, sit up slowly and pause briefly before standing. We strongly suggest that a responsible adultbe with you until tomorrow AM for your comfort and safety. CALL PHYSICIAN If you experience increasing or unrelieved pain, drainage, redness, bleeding, or swelling at surgical site and/or IV site. CALL PHYSICIAN For any vomiting or fever of 100.5 degrees or greater. CALL PHYSICIAN If unable to urinate in 6 - 8 hours or if uncomfortable. PATIENT TO CALL PHYSICIAN FOR APPOINTMENT Follow up with Dr. García on Sun at [facility] Call [phone] all medications to next visit. PRESCRIPTIONS GIVEN TO PATIENT/FAMILY MEDICATION INSTRUCTIONS Take prescribed pain medications as needed. Exercise caution when walking, driving, or climbing stairs. The discharge and medication instructions have been reviewed with me and my questions have been answered. I have received a copy of the discharge instructions. 05/20/2010 * Discharge Instructions* Document, Scanned - 05/20/2010 12:00 AM CDT documented in this encounter Medications at Time of Discharge Medication Sig Dispensed Refills Start Date End Date clonazePAM (KLONOPIN) 1 MG tablet Take 1 (one) tablet by mouth at bedtime multivitamin daily (THERAGRAN) tablet Take 1 (one) tablet by mouth daily with food pramipexole (MIRAPAX) 0.5 MG tablet Take 1 (one) tablet by mouth at bedtime propranolol CR 24hr (INDERAL LA) 60 MG capsule Take 1 (one) capsule by mouth once daily hydrocodone-acetaminophe n (NORCO) 5-325 MG tablet Take 1-2 Tabs by mouth every 4 hours as needed for Pain. 45 0 05/20/2010 12/11/2019 vitamin D 1000 UNIT capsule Take 1000 Units by mouth 2 times daily. 12/11/2019 documented as of this encounter Progress Notes * Sathish Sung MD - 05/20/2010 6:10 PM CDT POST-OP ANESTHESIA EVALUATION Janeth Lake is a 60 y.o. female Post-op Evaluation: POST-OP EVALUATION A post-op evaluation was performed on the patient with the following assessment: No Apparent Anesthesia Complications;Vital Signs and Mental Status unchanged from Preop Unless otherwise indicated, the patient is being discharged from anesthesia care. Sathish Sung MD * Bhupendra Ovalles CRNA - 05/20/2010 1:03 PM CDT PRE-ANESTHESIA EVALUATION Evaluated By: Bhupendra Ovalles CRNA, 05/20/2010 1:03 PM Janeth Lake is a 60 y.o. female Purpose: Scheduled Procedure Scheduled procedure: full thickness skin graft [facility] Problem List Patient Active Problem List Diagnoses Code ??? CARCINOMA 199.1FU Allergies Ibu Meds Prescriptions prior to admission Medication Sig Dispense Refill ??? propranolol CR 24hr (INDERAL LA) 60 MG capsule Take 60 mg by mouth daily. ??? clonazePAM (KLONOPIN) 1 MG tablet Take 1 mg by mouth at bedtime. ??? pramipexole (MIRAPAX) 0.5 MG tablet Take 0.5 mg by mouth at bedtime. ??? multivitamin daily (THERAGRAN) tablet Take 1 Tab by mouth daily with food. ??? vitamin D 1000 UNIT capsule Take 1000 Units by mouth 2 times daily. Current hospital medications Medication Dose Route Frequency Provider Last Rate Last Dose ??? lactated ringers infusion Intravenous PRE-OP CONTINUOUS KAITLIN BARRIOS ??? lidocaine (XYLOCAINE MPF) 1 % (PF) injection Infiltration PRE-OP MULTIPLE KAITLIN BARRIOS ??? ceFAZolin (ANCEF) IVPB 1 g 1 g Intravenous PRE-OP ONCE CARMELA YEE ??? propranolol CR 24hr (INDERAL LA) capsule 60 mg 60 mg Oral PRE-OP ONCE LOKESH BOJORQUEZ Past Medical History Past Medical History Diagnosis Date ??? RLS (Restless Legs Syndrome) ??? Irregular Heartbeat ??? Skin Cancer of Nose Past Surgical History Past Surgical History Procedure Date ??? Bunionectomy ??? Surgical history of R ELBOW ??? Moh's surgery nose ??? Breast lumpectomy right- non-cancerous Past Social History History Social History ??? Marital Status: Spouse Name: N/A Number of Children: N/A ??? Years of Education: N/A Occupational History ??? Not on file. Social History Main Topics ??? Tobacco Use: Yes -- 1.0 packs/day ??? Alcohol Use: No ??? Drug Use: No ??? Sexually Active: Not on file Other Topics Concern ??? Not on file Social History Narrative ??? No narrative on file Last Vital Signs VITAL SIGNS Temp: 98.1 ??F Pulse: 79 Resp: 16 BP: 111/76 mmHg Weight: 130 lb Height: 5' 6 SpO2: 100 % Pre-Eval Exam Previous Review I reviewed previous documentation: Yes PHYSICAL EXAM NPO status: Except Oral meds with H2O Heart Sounds: S1 S2 Respiratory Pattern/Effort: CTA Oriented x 3: Yes Teeth: Ok Airway Class: I ANESTHESIA ASA: II Anesthesia Choices: MAC Post-Op: PACU PRE-EVAL REVIEW I have reviewed all previously documented physician evaluations: Yes documented in this encounter H&P Notes * Carmela Yee MD - 05/20/2010 12:38 PM CDT HISTORY: Janeth Lake is a 60 Yrs female who presents for reconstruction of nose after mohs reconstruction. Pt had cancer excision several weeks previously. Pt has been previously seen by Dr. García inthe office. She had education about smoking cessation at that time and has cont to smoke despite this education. She has a significant history of nasal bone and septal fractures. PAST MEDICAL HISTORY: has a past medical history of RLS (Restless Legs Syndrome), Irregular Heartbeat, and Skin Cancer ofNose. PAST SURGICAL HISTORY: past surgical histories include bunionectomy and surgical history of. MEDICATIONS: Propranolol Other unknown medication for restless leg syndrome No current outpatient prescriptions on file prior to encounter. ALLERGIES: Allergies Allergen Reactions ??? Ibu (Ibuprofen Micronized) Rash IMMUNIZATIONS: There is no immunization history on file for this patient. SOCIAL HISTORY: Has cont to smoke 1ppd History Substance Use Topics ??? Tobacco Use: Yes -- 1.0 packs/day ??? Alcohol Use: No FAMILY HISTORY: No family history on file. REVIEW OF SYSTEMS: Negative for fever or chills PHYSICAL EXAMINATION: Gen: NAD Face: Nose left alar soft triangle defect 10mm x 8mm Alar notching. Collapse of the external valve Septal deviation to the left Chest: LCTA, RRR Ext: COYNE IMPRESSION: Nasal Cancer s/p mohs surgery RECOMMENDATIONS: 1. Surgical options discussed with patient she wishes to proceed with skin graft reconstruction She understands that she is at high risk for external valve issues in the future. She also understands that this surgery will not correct her previous septal deviation and airflow issues. She understands these risks and benefits and wishes to proceed with surgery Carmela Yee M.D. [phone] * Sathish García MD - 05/20/2010 12:38 PM CDT Patient seen and examined. She has a left alar defect involving the alar rim. There is some notching of the rim now. I discussed with here the risks, benefits, possible complications and alternativesof FTSG vs. Bilobed flap reconstruction with cartilage grafting. She understands that there is a higher risk of complications with a bilobed flap and that this could result in loss of her flap and/orgraft with a subsequent significant cosmetic defect. By contrast a FTSG has a lower expected complication rate and would be easier to salvage if something does happen, but is unlikely to give as niceof a cosmetic result. After considering her options and asking several questions, she wishes to proc eed with a bilobed flap with cartilage reconstruction. She does understand that her tobacco use significantly increases her complication rate. She also understands that the flap and her nose will be swollen for some time and that there are likely post-operative assymmetries related to the alar rim and the alar to sidewall groove. * Document, Scanned - 05/20/2010 12:00 AM CDT documented in this encounter Procedure Notes * Document, Scanned - 05/20/2010 12:00 AM CDTAssociated Order(s): CARDIAC RHYTHM STRIP ORDER * Document, Scanned - 05/20/2010 12:00 AM CDTAssociated Order(s): LAB RESULTS ORDER * Document, Scanned - 05/20/2010 12:00 AM CDTAssociated Order(s): CARDIAC EKG ORDER documented in this encounter OR Notes * Operative - Carmela Yee MD - 05/20/2010 3:43 PM CDT Brief Operative Note Preoperative Diagnosis: Nasal Cancer s/p mohs excision Postoperative Diagnosis: Same Procedure: 1. Bilobed flap 1cm x 4 cm 2. Cartilage Graft Surgeon: Dr. García Turner Off: Dr. Yee Type of anesthesia: General Complications: None EBL: Minimal Brief findings: None Specimens: None Disposition:Home today * Operative - Carmela Yee MD - 05/20/2010 12:00 AM CDT [facility] [place] [address] Operative Report PATIENT NAME: JANETH LAKE [facility]#: [id number] DATE OF : 2ACCT#: [id number] DATE OF OPERATION: 05/20/2010ROOM#: PREOPERATIVE DIAGNOSIS: Basal Cell Cancer of left nose. POSTOPERATIVE DIAGNOSIS: Basal Cell Cancer of left nose. OPERATION: 1. Bilobed flap (Local tissue rearrangement to the nose, 4 cm x 4 cm). 2. Cartilage graft from ear to nose. ATTENDING SURGEON: Sathish García MD. RESIDENT: Carmela Yee M.D. INDICATIONS: The patient is a 60-year-old female that had a nasal basal cancer excised by the Mohs surgeons 3 weeks previously. She had been doing local wound care and now presents for a reconstruction. Full thickness skin grafting versus flap closure was discussed with the patient. After considering the risks,benefits, possible complications and alternatives of surgery, she agree to proceed with a bilobed flap for reconstruction. DESCRIPTION OF PROCEDURE: The patient was taken to the operating room and laid in the supine position on the operating room table with all pressure points padded. She was orally intubated. The bed was turned and then she was prepped and draped in the usual fashion. Eye garcia were placed in both eyes. The procedure was begun by re-excising the wound base to remove fibrinous debris and aobtain a goodhealthy wound for reconstruction. Once this was completed, then measurements were made for a bilobed flap with a diameter of 1.2 cm. Once the markings had been done, a standard bilobed flap was marked out with a total angle of rotation of approximately 90 degrees, with the first flap at 45 degrees.The wound was templated. The marked incisions were then incised. Dissection was then performed downto just above the perichondrium of the nasal cartilages. Once this was completely freed up then ourattention was turned to reshaping the nose as there had been previous trauma with disruption of the scroll area. The upper lateral cartilages and lower lateral cartilage were sutured together at the scroll area and held in place with 5-0 PDS suture. At this point, because of the previous notching of the left alar rim a cartilage graft was harvested from the contralateral ear. Local anesthesia wasinfiltrated into the posterior and anterior aspect of the right ear. A curvilinear incision was made in the posterior aspect of the right vale. Incision was made through the skin and then once the cartilage was visualized the cartilage was dissected out both proximally and distally in a subperichondrial plane. Then, utilizing a 15 blade, an incision was made into the cartilage and the cartilagewas then from the anterior portion of the ear and resected from the ear. At that point hemostasis was obtained and then the ear was closed with 5-0 Monocryl and 5-0 chromic and then a Xeroform bolster was placed to mattress the ear together. Next, a pocket was made both in the alar base and in the superior portion over the tip to bolster and shape the alar rim. The cartilage graft was sutured in place with 5-0 PDS sutures. Once adequate hemostasis was obtained with electrocautery closure was begun at the donor site. This was closed with 5-0 PDS in the deep dermal layer and then worked progressively towards the defect. PDS suture was used to obliterate thedead space between the second lobe of the bilobed flap and the upper lateral cartilages. Once this was done, then the bilobed flap was thinned conservatively given the patient's smoking history. The distal edge of the flap was shaped to fit the notched area of the alar rim. Several tacking sutures of the deep dermis were placed with a 5-0 PDS. Once adequate positioning was done, then the superficial layer was closed with 6-0 fast-absorbing suture. Once this was completed Bacitracin was placed over the nasal incisions and eye garcia were removed. The eyes were rinsed with BSS. The patient wasthen extubated and transferred to the post-operative holding area in stable condition. All sponge, needle and instrument counts were correct at the completion of the procedure. DISPOSITION: The patient was taken recovery and then be discharged home later this afternoon. COMPLICATIONS: None. ESTIMATED BLOOD LOSS: 25 cc. ANESTHESIA: General. SPECIMENS: None. DRAINS: None. All counts were correct. Dr. García was present for the entire operation. I was physically present for the entirety of this procedure. NAME: JNAETH LAKE DICTATOR:CARMELA YEE M.D. DICTATED FOR:SATHISH GARCÍA MD /[id number] JOB ID: [id number] Operative Report documented in this encounter Miscellaneous Notes * Miscellaneous Scans - Document, Scanned - 05/20/2010 12:00 AM CDT * Miscellaneous Scans - Document, Scanned - 05/20/2010 12:00 AM CDT * Miscellaneous Scans - Document, Scanned - 05/20/2010 12:00 AM CDT * Miscellaneous Scans - Document, Scanned - 05/20/2010 12:00 AM CDT * Miscellaneous Scans - Document, Scanned - 05/20/2010 12:00 AM CDT * Miscellaneous Scans - Document, Scanned - 05/20/2010 12:00 AM CDT documented in this encounter Plan of Treatment Not on file documented as of this encounter Procedures Procedure Name Priority Date/Time Associated Diagnosis Comments CARDIAC EKG ORDER 05/25/2010 9:4 1 AM CDT LAB RESULTS ORDER 05/25/2010 9:4 1 AM CDT CARDIAC RHYTHM STRIP ORDER 05/25/2010 9:41 AM CDT documented in this encounter Results * CARDIAC EKG ORDER (05/25/2010 9:41 AM [...] CDT Scanned Document LAB - THERAPEUTIC DR LITTLE MONITORING ORDERABLES * CARDIAC RHYTHM STRIP ORDER (05/25/2010 9:41 AM CDT) Narrative 05/25/2010 9:41 AM CDT Ordered by an unspecified provider. Transcriptions Document, Scanned - 05/20/2010 12:00 AM CDT Scanned Document CARDIAC SERVICES ORD ERABLES documented in this encounter Visit Diagnoses Diagnosis Carcinoma (HCC) Other malignant neoplasm without specification of site documented in this encounter Administered Medications Inactive Administered Medications - up to 3 most recent administrations Medication Order MAR Action Action Date Dose Rate Site ceFAZolin (ANCEF) IVPB 1 g 1 g, at 100 mL/hr, Intravenous, PRE-OP ONCE, 1 dose $ Given 05/20/2010 1:45 PM CDT 1 g 100 mL/hr lactated ringers infusion at 20 mL/hr, Intravenous, PRE-OP CONTINUOUS, Until 05/21/10 at 0643 $ Given 05/20/2010 1:19 PM CDT 20 mL/hr lidocaine (XYLOCAINE MPF) 1 % (PF) injection Infiltration, PRE-OP MULTIPLE, 3 doses, Starting on Sun05/20/10 at 1226, Until 05/21/10 at 0643, May be used (0.2 ml locally to anesthetize prior to insertion if patient has NKA to Lidocaine). Buffered with sodium bicarbonate (NaHCO3). $ Given 05/20/2010 1:18 PM CDT 2 mL propranolol CR 24hr (INDERAL LA) capsule 60 mg 60 mg, Oral, PRE-OP ONCE, 1 dose, Do not crush or chew. $ Given 05/20/2010 1:11 PM CDT 60 mg documented in this encounter Active and Recently Administered Medications Times are shown in CDT. Scheduled Medication Order 05/18/2010 05/19/2010 05/20/2010 ceFAZolin (ANCEF) IVPB 1 g (COMPLETED) 1 g, at 100 mL/hr, Intravenous, PRE-OP ONCE, 1 dose 1345 ($ Given - Prov ider: Bhupendra Ovalles PASSPORT SUPPORT ASSOCIATE - Comment: given by martinez brandt) lidocaine (XYLOCAINE MPF) 1 % (PF) injection (CANCELED) Infiltration, PRE-OP MULTIPLE, 3 doses, Starting on Sun05/20/10 at 1226, Until 05/21/10 at 0643, May be used (0.2 ml locally to anesthetize prior to insertion if patient has NKA to Lidocaine). Buffered with sodium bicarbonate (NaHCO3). 1318 ($ Given - Prov ider: Amanda Pantoja RN) propranolol CR 24hr (INDERAL LA) capsule 60 mg (COMPLETED) 60 mg, Oral, PRE-OP ONCE, 1 dose, Do not crush or chew. 1311 ($ Given - Prov ider: Amanda Pantoja RN) Continuous Medication Order 05/18/2010 05/19/2010 05/20/2010 lactated ringers infusion (CANCELED) at 20 mL/hr, Intravenous, PRE-OP CONTINUOUS, Until 05/21/10 at 0643 1319 ($ Given - Prov ider: Amanda Pantoja RN) documented in this encounter Care Teams Irrigating Pump Operator Relationship Specialty Start Date End Date Unknown, Provider PCP - General 05/20/10 04/07/14 documented as of this encounter
--- OUTSIDE RECORDS SUMMARY | 2024-11-23 15:03 | XMS_ITS | Encounter Summary ---
Author Organization [facility] Address [address] [facility] [place] [address] Care Team Providers Care Informatics Developer Name Role Phone Watson Perry MD Primary Care Provider [phone] Reason for Visit * Auth/Cert Specialty Diagnoses / Procedures Referred By Contac t Referred To Contact Diagnoses Diagnosis unknown Diagnosis unknown [R69] Procedures HYSTEROSCOPY WITH DILATION & CURETTAGE Referral ID Status Reason Start Date Expiration Date Visits Re quested Visits Authorized [id number] 1 1 Encounter Details Date Type Department Care Team (Latest Contact Info) Description 12/15/2019 6:43 AM STRUCTURAL LAYOUT WORKER - 12/15/2019 1:56 PM [facility] Hospital Encounter [facility] [address] [place] [address] Kelley Sanford MD [address] [facility] [address] [place] [address] Surgery General Discharge Disposition: Home or Self [...] Sign Reading Time Taken Comments Blood Pressure 109/73 12/15/2019 12:30 PM STRUCTURAL LAYOUT WORKER Pulse 58 12/15/2019 12:30 PM STRUCTURAL LAYOUT WORKER Temperature 36.3 ??C (97.4 ??F) 12/15/2019 10:[address] Respiratory Rate 18 12/15/2019 12:30 PM STRUCTURAL LAYOUT WORKER Oxygen Saturation 97% 12/15/2019 12:30 PM STRUCTURAL LAYOUT WORKER Inhaled Oxygen Concentration - - Weight 63 kg (139 lb) 12/15/2019 7:29 AM STRUCTURAL LAYOUT WORKER Height 165.1 cm (5' 5 ) 12/15/2019 7:29 AM STRUCTURAL LAYOUT WORKER Body Mass Index 23.13 12/15/2019 7:29 AM STRUCTURAL LAYOUT WORKER documented in this encounter Medications at Time [...] (one) tablet by mouth daily with food Ellore[place]-3 Fatty Acids (FISH OIL PO) Take 1,000 [...] file Gets together: Not on file Attends mosque service: Not on file Active member of [...] Tab by mouth daily with food. ??? Elloree-3 Fatty Acids (FISH OIL PO) Take 1,000 [...] results for input(s): ABORH in the last 02527 hours. Recent Labs Component Name 05/11/10 1104 [...] ureters). Amalia Rome MD 12/14/2019 5:07 PM Database Manager Onc Attending Addendum I have personally seen and examined the patient and agree with the documentation by Dr. Rome. Planned procedure is hysteroscopy, dilation and curettage. Kelley Sanford MD Grip Wrapper of Gynecologic Oncology Dept of Obstetrics, Gynecology, and Women's Health 12/15/2019 8:22 AM CTURAL LAYOUT WORKER documented in this encounter OR Notes * Brief Op Note - Amalia Rome MD - 12/15/2019 9:00 AM CST R4 Brief Op Note 12/15/2019 9:57 AM Preoperative Diagnosis: Postmenopausal bleeding, thickened endometrial stripe Postoperative Diagnosis: Same, small endometrial polyp Procedure: Diagnostic hysteroscopy, dilation and curettage Surgeon: Kelley Sanford MD Internet Programmer: Amalia Rome MD Type of anesthesia: MAC [...] Dr. Juvenal Rome MD 12/15/2019 9:57 AM CTURAL LAYOUT WORKER * Operative - Kelley Sanford MD - 12/15/2019 9:00 AM CST Gynecologic Oncology Operative Note 12/15/2019 9:55 AM Preoperative Diagnosis: thickened endometrium, postmenopausal bleeding Postoperative Diagnosis: same, endometrial polyp Procedure: hysteroscopy, dilation and curettage, polypectomy Surgeon: Kelley Sanford MD Internet Programmer: Amalia Rome MD Type of anesthesia: MAC [...] entirety of the procedure. Kelley Sanford MD Grip Wrapper of Gynecologic Oncology Dept of Obstetrics, Gynecology, and Women's Health 12/15/2019 9:55 AM CTURAL LAYOUT WORKER documented in this encounter Plan of Treatment Not on file documented as of this encounter Procedures Procedure Name Priority Date/Time Associated Diagnosis Comments CARDIAC RHYTHM STRIP ORDER 12/17/2019 6:54 PM STRUCTURAL LAYOUT WORKER PATHOLOGY TISSUE EXAM (STL) Routine 12/15/2019 9:30 AM STRUCTURAL LAYOUT WORKER Diagnosis unknown VA HYSTEROSCOPY,W/EN DO BX 12/15/2019 8:25 AM STRUCTURAL LAYOUT WORKER Diagnosis unknown Special Needs SURGEON REQUEST SPINAL AND LOCAL PER OFFICE ([place])--12/11 CT documented in this encounter Results * CARDIAC RHYTHM STRIP ORDER (12/17/2019 6:54 PM STRUCTURAL LAYOUT WORKER) Narrative 12/17/2019 6:54 PM STRUCTURAL LAYOUT WORKER Ordered by an unspecified provider. Scanned Document CARDIAC SERVICES ORD ERABLES * GROSS + MICRO EXAM (STL) (12/15/2019 9:30 AM STRUCTURAL LAYOUT WORKER) Case Report Surgical Pathology Report ? Case: [id number] ? Authorizing Provider: ??Kelley Sanford MD ?Collected: ? 12/15/2019 09:30 AM ? Ordering Location: ? [facility] ? Received: ?12/15/2019 11:02 AM ? Pathologist: ? Renny Julian MD ? Specimens: ?? A) - Polyp Endometrial ? B) - Endometrium Curettings ? 12/18/2019 6:30 AM [facility] Final Diagnosis 1. Uterus, endometrium, polyp : -- Polypoid endometrium with focal simple hyperplasia 2. Uterus, endometrium, curettage: -- Proliferative pattern endometrium with focal simple hyperplasia -- Fragments of non-dysplastic stratified squamous epithelium WALLY/jesica 12/18/2019 6:30 AM [facility] Clinical History Diagnosis unknown. 12/18/2019 6:30 AM [facility] Gross Description A. Received in formalin labeled Janeth Parker and polyp endometrial are 5-10 irregular fragments of church-pink to red-brown tissue ranging from 0.2-2 cm in greatest dimension. The specimen is entirely submitted in cassette A1. B. Received in formalin labeled Janeth Parker and endometrial curettings is a 1 x 1 x 0.2 cm aggregate of church-pink friable tissue fragments. The specimen is entirely submitted in cassette B1. SW/scs 12/18/2019 6:30 AM [facility] Microscopic Description The endometrium in both biopsies is negative for chronic endometritis and malignancy. JLC/jesica 12/18/2019 6:30 AM [facility] Disclaimer All histochemical and/or immunohistochemical results are interpreted with controls that demonstrate appropriate staining reactions before reporting results. Note on use of immunocytochemistry reagents: This test was developed and its performance characteristic determined by [facility], Department of Laboratory Medicine. It has not been cleared or approved by the U.S. Food and Drug Administration (FDA). The FDA has determined that such clearance or approval is not necessary. The test is used for clinical purpose. It should not be regarded as investigational or for research. This laboratory is certified to perform high complexity testing. 12/18/2019 6:30 AM [facility] Embedded Images 12/18/2019 6:30 AM [facility] Pathology/Cytology ENDOMETRIAL POLYP SPECIMEN / Unknown 12/15/2019 9:30 AM STRUCTURAL LAYOUT WORKER 12/15/2019 11:02 AM STRUCTURAL LAYOUT WORKER Comment:Pre-op diagnosis: Diagnosis unknown [R69] Miscellaneous samples (specimen) SPECIMEN FROM ENDOMETRIUM OBTAINED BY CURETTAGE / Unknown 12/15/2019 9:37 AM STRUCTURAL LAYOUT WORKER 12/15/2019 11:02 AM STRUCTURAL LAYOUT WORKER Comment:Pre-op diagnosis: Diagnosis unknown [R69] Kelley Sanford MD LAB - PATHOLOGY/CY TOLOGY ORDERABLES Performing Organization Address [facility]/State/[facility] Co de Phone Number [facility] [address] [place], [place] [phone] documented in this encounter Visit Diagnoses Diagnosis [...] 0730, Pre-op $ Given 12/15/2019 7:42 AM STRUCTURAL LAYOUT WORKER 1,000 mg lactated ringers infusion at 20 mL/hr, Intravenous, PRE-OP CONTINUOUS, Starting on Sun12/15/19 at 0730, Until Sun12/15/19 at 1456, Pre-op $ New Bag/Syringe 12/15/2019 7:43 AM STRUCTURAL LAYOUT WORKER 20 mL/hr lactated ringers infusion at 125 mL/hr, Intravenous, CONTINUOUS, Starting on Sun12/15/19 at 1045, Until Sun12/15/19 at 1456, PACU $ New Bag/Syringe 12/15/2019 1:04 PM STRUCTURAL LAYOUT WORKER 125 mL/hr lidocaine (XYLOCAINE MPF) 1 % injection 0.2 mL 0.2 mL, Infiltration, PRE-OP MULTIPLE, 3 doses, Starting on Sun12/15/19 at 0715, Until Sun12/15/19 at 1456, May be used (0.2 ml locally to anesthetize prior to insertion)., Pre-op $ Given 12/15/2019 7:42 AM STRUCTURAL LAYOUT WORKER 0.2 mL documented in this encounter Active and Recently Administered Medications Times are shown in STRUCTURAL LAYOUT WORKER. Scheduled Medication Order 12/13/2019 12/14/2019 12/15/2019 acetaminophen [...] Post-op documented in this encounter Care Teams Informatics Developer Relationship Specialty Start Date End Date Watson Perry MD [address] [place] [phone] PCP - General 12/03/19 documented as of this encounter
--- OUTSIDE RECORDS SUMMARY | 2024-11-23 15:03 | XMS_ITS | Encounter Summary ---
Author Organization [facility] Address [address] [facility] [place] [address] Care Team Providers Care Wax Pattern Coater Name Role Phone Watson Perry MD Primary Care Provider [phone] Reason for Visit * Radiology Services (Routine) - Closed Specialty Diagnoses / Procedures Referred By Contac t Referred To Contact Radiology Diagnoses Thickened endometrium Postmenopausal bleeding Retroperitoneal lymphadenopathy Mesenteric lymphadenopathy Procedures PET CT SKULL TO MID THIGH Kelley Sanford MD [address] [facility] [address] [place] [address] Referral ID Status Reason Start Date Expiration Date Visits Re quested Visits Authorized [id number] Closed 12/18/2019 06/15/2020 1 1 Encounter Details Date Type Department Care Team (Latest Contact Info) Description 12/30/2019 1:48 PM PROFILE STITCHING MACHINE OPERATOR - 12/30/2019 11:59 PM [facility] Hospital Encounter [facility] - PET Scan [address] [place] [address] [address] [place], [place] [id number] Kelley Sanford MD [address] [employer] [address] [place] [address] Discharge Disposition: Home or Self Care Social [...] (one) tablet by mouth daily with food Minerva-3 Fatty Acids (FISH OIL PO) Take 1,000 mg by mouth 3 times daily pramipexole (MIRAPAX) 0.5 MG tablet Take 1 (one) tablet by mouth at bedtime propranolol CR 24hr (INDERAL LA) 60 MG capsule Take 1 (one) capsule by mouth once daily rosuvastatin (CRESTOR) 10 MG tablet Take 1 (one) tablet by mouth at bedtime 11/09/2019 medroxyPROGESTERone (PROVERA) 10 MG tablet Take 1 tablet by mouth once daily 30 tablet 5 12/18/2019 04/16/2024 primidone (MYSOLINE) 50 MG tablet Take 5 (five) tablets by mouth at bedtime 10/03/2019 04/16/2024 documented as of this encounter Plan of Treatment Not on file documented as of this encounter Procedures Procedure Name Priority Date/Time Associated Diagnosis Comments PET CT SKULL TO MID THIGH Routine 12/30/2019 2:54 PM PROFILE STITCHING MACHINE OPERATOR Thickened endometrium Postmenopausal bleeding Retroperitoneal lymphadenopathy Mesenteric lymphadenopathy documented in this encounter Results * PET CT SKULL TO MID THIGH (12/30/2019 2:54 PM PROFILE STITCHING MACHINE OPERATOR) Anatomical Region Laterality Modality Head, Lower Extremity Nuclear Me dicine 12/31/2019 9:20 AM PROFILE STITCHING MACHINE OPERATOR Addenda Addendum by Adri Van DO on 12/31/2019 10:44 AM PROFILE STITCHING MACHINE OPERATOR In addition to the impression, there is somewhat dense breast tissue bilaterally with mild FDG uptake as well as a moderately FDG avid 1.2 cm left axillary node. Findings may be reactive but malignancy is not excluded. Recommend further evaluation with mammography if not already performed. Addending Radiologist: Adri Van MD on 12/31/2019 at 10:41 AM Impressions 12/31/2019 10:05 AM PROFILE STITCHING MACHINE OPERATOR 1. Enlarged uterus with intense FDG uptake [...] at 10:05 AM Narrative 12/31/2019 10:05 AM PROFILE STITCHING MACHINE OPERATOR Procedure: PET/CT study Referring physician: Dr. Sanford [...] 10:05 AM Kelley Sanford MD NM ORDERABLES documented in this encounter Visit Diagnoses Diagnosis Thickened endometrium Nonspecific (abnormal) findings on radiological and other examination of genitourinary organs Postmenopausal bleeding Retroperitoneal lymphadenopathy Enlargement of lymph nodes Mesenteric lymphadenopathy Enlargement of lymph nodes documented in this encounter Care Teams Wax Pattern Coater Relationship Specialty Start Date End Date Watson Perry MD [address] [place] [phone] PCP - General 12/03/19 documented as of this encounter
--- OUTSIDE RECORDS SUMMARY | 2024-11-23 15:03 | XMS_ITS | Encounter Summary ---
Author Organization [facility] Address [address] [facility] [place] [address] Care Team Providers Care Panel Edge Painter Name Role Phone Watson Perry MD Primary Care Provider [phone] Reason for Visit * Reason Onset Date Comments Follow-up 01/02/2020 Encounter Details Date Type Department Care Team (Late st Contact Info) Description 01/02/2020 Telephone [facility] [address] [place], [place] [phone] Kelley Sanford MD [address] [facility] [address] [place], [place] [phone] Follow-up Social History Tobacco Use Types Packs/Day [...] encounter Miscellaneous Notes * Telephone Encounter - Kelley Sanford MD - 01/02/2020 3:48 PM ARMHOLE BASTER JUMPBASTING Called patient to discuss her bleeding symptoms. Improved s/p d/c'ing progesterone for now. Will likely need to go back on it to treat hyperplasia but ok to be off for now as she has an upcoming vacation etc, I will call her after her vacation to touch base. Would like to see back in 3 months for pelvic US and appt. Kelley Sanford MD Commissary Clerk of Gynecologic Oncology Dept of Obstetrics, Gynecology, and Women's Health 01/02/2020 3:51 PM OLE BASTER JUMPBASTING documented in this encounter Plan of Treatment Not on file documented as of this encounter Results * OH SONO EXAM, TRANSVAGINAL (05/13/2020 11:05 AM CDT) Narrative Leanne Levy - 05/13/2020 11:05 AM CDT Leanne Levy ? 05/13/2020 11:05 AM Documentation in digisonics. Kelley Sanford MD PROCEDURE/MINOR MAJOR RGICAL ORDERABLES documented in this encounter Visit Diagnoses Diagnosis Simple endometrial hyperplasia- Primary Endometrial hyperplasia, unspecified Postmenopausal bleeding Postmenopausal bleeding- Primary Simple endometrial hyperplasia Endometrial hyperplasia, unspecified Endometrial polyp Polyp of corpus uteri documented in this encounter Care Teams Panel Edge Painter Relationship Specialty Start Date End Date Watson Perry MD [address] [place] [phone] PCP - General 12/03/19 documented as of this encounter
--- OUTSIDE RECORDS SUMMARY | 2024-11-23 15:03 | XMS_ITS | Encounter Summary ---
Author Organization [facility] Address [address] [facility] [place] [address] Care Team Providers Care Taker Off Drying Kiln Name Role Phone Watson Perry MD Primary Care Provider [phone] Reason for Visit * Reason Comments Post-Op Encounter Details Date Type Department Care Team (Late st Contact Info) Description 12/30/2019 10:30 AM RAG WILLOW OPERATOR Office Visit [facility] [address] [place] [address] Kelley Sanford MD [address] [facility] [address] [place], [place] [phone] Postmenopausal bleeding (Primary Dx); Lymphadenopathy Social History Tobacco Use Types Packs/Day Years [...] Sign Reading Time Taken Comments Blood Pressure 106/90 12/30/2019 10:28 AM RAG WILLOW OPERATOR Pulse 114 12/30/2019 10:28 AM RAG WILLOW OPERATOR Temperature - - Respiratory Rate - - Oxygen Saturation - - Inhaled Oxygen Concentration - - Weight 62.6 kg (138 lb) 12/30/2019 10:28 AM RAG WILLOW OPERATOR Height 165.1 cm (5' 5 ) 12/30/2019 10:28 AM RAG WILLOW OPERATOR Body Mass Index 22.96 12/30/2019 10:28 AM RAG WILLOW OPERATOR documented in this encounter Progress Notes * Kelley Sanford MD - 12/30/2019 10:30 AM CST [facility] Gynecologic Oncology Established Patient Visit Date of Service: 12/30/2019 Patient Name: Janeth Parker Chief Complaint: post op History of Present Illness: Janeth Parker is a 69 year old who presents for a post op appt s/p HSC, D&C done for appearance of abnormal uterus on imaging as well as some LAD. Pt had been having PMB. She reports that since the surgery she continues to have heavy bleeding. She feels that this started around the time she started taking the progesterone. Was seen in ED at [facility] in [place]. She states she had a CT and US there. Medical, Surgical, and Family History reviewed--there have [...] denies bruising, nosebleeds, bleeding gums Exam: BP 106/90 Pulse 114 Ht 5' 5 Wt 138 lb BMI 22.96 kg/m2 ECO Gen: NAD, appears well after surgery Abd: soft, nontender, hernia absent, no hepatosplenomegaly : NEFG, normal vagina with no lesions, normal appearing cervix without laceration/lesion. Dark blood coming from cervical os Lymph: no supraclavicular, axillary, or inguinal adenopathy Skin: no rashes or lesions Neuro: oriented x3 Psychiatric: appropriate affect Assessment/Plan: 69 year old with mesenteric and retroperitoneal LAD as well as postmenopausal bleeding. Endometrial polyp identified on HSC, D&C with final benign pathology. Stop progesterone for now. Will call on Sunday to reevaluate bleeding. If still significant could do short course of estrogen to thicken the endometrium and hopefully stop bleeding. Assume that this is secondary to denuded endometrium. PET today for further workup of LAD *If patient needs senior care prescriptions, can do 90 day supply which is cheaper* I have spent 15 minutes with the patient of which >50% was spent in counseling. Kelley Sanford MD Waitstaff of Gynecologic Oncology Dept of Obstetrics, Gynecology, and Women's Health 12/30/2019 10:32 AM WILLOW OPERATOR documented in this encounter Plan of Treatment Not on file documented as of this encounter Visit Diagnoses Diagnosis Postmenopausal bleeding- Primary Lymphadenopathy Enlargement of lymph nodes documented in this encounter Care Teams Taker Off Drying Kiln Relationship Specialty Start Date End Date Watson Perry MD [address] [place] [phone] PCP - General 12/03/19 documented as of this encounter
--- OUTSIDE RECORDS SUMMARY | 2024-11-23 15:03 | XMS_ITS | Encounter Summary ---
Author Organization [facility] Address [address] [facility] [place] [address] Care Team Providers Care Baseball Winder Name Role Phone Watson Perry MD Primary Care Provider [phone] Reason for Visit * Reason Onset Date Comments Follow-up 01/19/2020 Encounter Details Date Type Department Care Team (Late st Contact Info) Description 01/19/2020 Telephone [facility] PHYS SURGERY [address] [place] [address] Kelley Sanford MD [address] [facility] [address] [place] [address] Follow-up Social History Tobacco Use Types Packs/Day [...] Telephone Encounter - Kelley Sanford MD - 01/19/2020 1:30 PM DOLL SURGEON Called patient to touch base with her about her bleeding. No answer. Left voicemail that if her bleeding has stopped, would have her go ahead and go back on progesterone to treat the hyperplasia identified on her D&C. Instructed to call back if she's still having bleeding or if she has other questions. Also left VM with details of her next appt again. Kelley Sanford MD Internet Developer of Gynecologic Oncology Dept of Obstetrics, Gynecology, and Women's Health 01/19/2020 1:34 PM SURGEON documented in this encounter Plan of Treatment Not on file documented as of this encounter Visit Diagnoses Not on filedocumented in this encounter Care Teams Baseball Winder Relationship Specialty Start Date End Date Watson Perry MD [address] [place] [phone] PCP - General 12/03/19 documented as of this encounter
--- OUTSIDE RECORDS SUMMARY | 2024-11-23 15:03 | XMS_ITS | Encounter Summary ---
Author Organization [facility] Address [address] [facility] [address] Care Team Providers Care Supervisor Bindery Name Role Phone Watson Perry MD Primary Care Provider [phone] Reason for Visit * Auth/Cert Specialty Diagnoses / Procedures Referred By Contac t Referred To Contact Diagnoses Diagnosis unknown Diagnosis unknown [R69] Procedures LAPAROSCOPIC TOTAL HYSTERECTOMY (TLH) Referral ID Status Reason Start Date Expiration Date Visits Re quested Visits Authorized [id number] 1 1 Encounter Details Date Type Department Care Team (Latest Contact Info) Description 06/01/2021 8:02 AM CDT - 06/01/2021 4:30 PM CDT Hospital Encounter [facility] [address] [place] [address] Kelley Sanford MD [address] [facility] [address] [place] [address] Surgery General Discharge Disposition: Home or Self [...] Sign Reading Time Taken Comments Blood Pressure 90/57 06/01/2021 4:00 PM CDT Pulse 63 06/01/2021 3:19 PM CDT Temperature 36.2 ??C (97.2 ??F) 06/01/2021 3:19 PM CD T Respiratory Rate 16 06/01/2021 3:19 PM CDT Oxygen Saturation 95% 06/01/2021 4:00 PM CDT Inhaled Oxygen Concentration - - [...] (one) tablet by mouth daily with food Dickinson-3 Fatty Acids (FISH OIL PO) Take 1,000 [...] with neg HPV Mammogram 2017 Colonoscopy 01/17/19 MAKE UP MAN: see HPI SOC: Social History Socioeconomic History [...] Gatherings with Friends and Family: ??? Attends Baptism Services: ??? Active Member of Clubs or [...] Tab by mouth daily with food. ??? Dickinson-3 Fatty Acids (FISH OIL PO) Take 1,000 [...] Sanford MD - 06/01/2021 9:06 AM CDT Vulnerability Assessment Analyst Onc Attending Addendum I have personally seen and examined the patient and agree with the documentation by Dr. Perea. Planned procedure is total laparoscopic hysterectomy, bilateral salpingo- oophorectomy, possible staging, possible laparotomy. Kelley Sanford MD Director Television of Gynecologic Oncology Dept of Obstetrics, Gynecology, and Women's Health 06/01/2021 9:05 AM documented in this encounter OR Notes * Brief Op Note - Watson Humphreys MD - 06/01/2021 10:20 AM CDT Brief Post-Operative Note 06/01/2021 Janeth Parker Date of Surgery: 06/01/2021 Surgeon(s) and Role: * Kelley Sanford MD - Primary * Watson Humphreys MD - Resident - Assisting Anesthesiologist: Ahsan Sung MD EXPORT CLERK: Joie Boyer APRN-EXPORT CLERK Pre-Op Diagnosis Codes: PMB Postoperative Diagnosis: same [...] hysterectomy, bilateral salpingo-oophorectomy Surgeon: Kelley Sanford MD Driver Merchandiser: Watson Humphreys MD Type of anesthesia: General [...] entirety of the procedure. Kelley Sanford MD Director Television of Gynecologic Oncology Dept of Obstetrics, Gynecology, [...] 06/01/2021 1:33 PM CDT [facility] [place] [id number] 06/01/2021 1:33 PM CDT [facility] Blood, arterial ARTERIAL BLOOD SPECIMEN / Unknown 06/01/2021 1:06 PM CDT 06/01/2021 1:06 PM CDT Ahsan Sung MD LAB - BLOOD GASES ORDERABLES Performing Organization Address City/State/[facility] Co de Phone Number [facility] [address] [phone] * PATHOLOGY TISSUE EXAM (STL) (06/01/2021 11:12 AM CDT) Case Report Surgical Pathology Report ? Case: [id number] ? Authorizing Provider: ??Kelley Sanford MD ?Collected: ? 06/01/2021 11:12 AM ? Ordering Location: ? [facility] ? Received: ?06/01/2021 11:16 AM ? Pathologist: ? Devan Palacios MD ? Specimen: ?Uterus w Cervix, uterus,cervix, bilateral tubes and ovaries ? 06/06/2021 8:39 AM T [facility] Final Diagnosis Cervix uteri: No significant histopathologic changes. 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 Adenomyosis. Leiomyoma. Fallopian tube right: Benign paratubal cyst. Ovary, right: Fibroma Hilar nodule. Fallopian tube, left: Benign paratubal cyst. Ovary, left: Hilar nodule. 06/06/2021 8:39 AM [facility] Gross Description The requisition and specimen [...] 0.5 cm in diameter. The serosa is purple-cuhrch, congested with multiple paratubal cysts, 0.1 to 0.4 cm in diameter. Sectioning shows unremarkable cut surfaces. Twister Doffer sections submitted as follows: A1-frozen section control, endomyometrium, A2-anterior cervix, A3-posterior cervix, O3-G90-njhzjbws endomyometrium entirely, from lower uterine segment to fundus, S78-A31-ntzfppmtx endomyometrium entirely from lower uterine segment to fundus, X20-kfdbumuedp mass and hemorrhagic myometrium, B34-ysgde ovary, P49-spdzi fallopian tube, P34-oyfu ovary, V06-ikaa tube. LJ Note: Per pathologist the endometrial cavity is submitted entirely. 06/06/2021 8:39 AM [facility] Microscopic Description Microscopic examination was performed. 06/06/2021 8:39 AM [facility] Disclaimer All histochemical and/or immunohistochemical results are interpreted with controls that demonstrate appropriate staining reactions before reporting results. Note on use of immunocytochemistry reagents: This test was developed and its performance characteristic determined by [facility], Department of Laboratory Medicine. It has [...] interpreted with caution. 06/06/2021 8:39 AM CDT [facility] Embedded Images 06/06/2021 8:39 AM CDT [facility] Pathology/Cytolo gy SPECIMEN FROM UTERINE CERVIX OBTAINED BY HYSTERECTOMY / Unknown 06/01/2021 11:12 AM CDT 06/01/2021 11:16 AM CDT Comment:Pre-op diagnosis: Diagnosis unknown [R69] Kelley Sanford MD LAB - PATHOLOGY/CY TOLOGY ORDERABLES Performing Organization Address City/[facility] Co de Phone Number [facility] [address] [place] [address] * BLOOD TYPE VERIFICATION (06/01/2021 10:25 AM CDT) ABO Rh A POS 06/01/2021 10:55 AM CDT [facility] Blood Bank BLOOD SPECIMEN / Unknown Lab Venipuncture / Unknown 06/01/2021 10:25 AM CDT 06/01/2021 10:25 AM CDT Kelley Sanford MD LAB - BLOOD BANK O RDERABLES Performing Organization Address City/[facility]/ZIP Co de Phone Number [facility] [address] [place] [address] * TYPE + SCREEN PANEL (06/01/2021 9:24 AM CDT) ABO Rh A POS 06/01/2021 10:16 AM CDT [facility] Comment:No history; collect retype. Antibody Screen NEG 10:16 AM CDT [facility] Blood Bank BLOOD SPECIMEN / Unknown Venipuncture / Unknown 06/01/2021 9:24 AM CDT 06/01/2021 9:36 AM CDT Kelley Sanford MD LAB - BLOOD BANK O RAVI [facility] [address] [place] [address], [facility] [phone] * (ABNORMAL) COMPREHENSIVE METABOLIC PANEL (06/01/2021 9:24 AM CDT) [facility] Signature Glucose 90 70 - 105 mg/dL 06/01/2021 10:10 AM CDT [facility] Sodium 137 136 - 145 mmol/L 06/01/2021 10:10 AM CDT [facility] Potassium 4.2 3.5 - 5.1 mmol/L 06/01/2021 10:10 AM CDT [facility] Chloride 100 98 - 107 mmol/L 06/01/2021 10:10 AM [facility] CO2 32(H) 23 - 31 mmol/L 06/01/2021 10:10 AM CDT [facility] Calcium 9.9 8.4 - 10.4 mg/dL 06/01/2021 10:10 AM [facility] Anion Gap 5(L) 8 - 18 mmol/L 06/01/2021 10:10 AM CDT [facility] BUN 11 9.8 - 20.1 mg/dL 06/01/2021 10:10 AM CDT [facility] Creatinine 0.69 0.57 - 1.11 mg/dL 06/01/2021 10:10 AM [facility] Alkaline Phosphatase 59 40 - 150 U/L 06/01/2021 10:10 AM CDT [facility] ALT 17 0 - 61 U/L 06/01/2021 10:10 AM CDT [facility] AST 19 5 - 34 U/L 06/01/2021 10:10 AM CDT [facility] Protein Total 6.6 6.4 - 8.3 gm/dL 06/01/2021 10:10 AM CDT [facility] Albumin 3.9 3.2 - 4.6 gm/dL 06/01/2021 10:10 AM CDT [facility] Bilirubin Total 0.5 0.2 - 1.2 mg/dL 06/01/2021 10:10 AM CDT [facility] eGFR by MDRD >60 >60 mL/min/1.7 3m2 06/01/2021 10:10 AM CDT [facility] eGFR by MDRD >60 >60 mL/min/1.7 3m2 06/01/2021 10:10 AM CDT [facility] Blood BLOOD SPECIMEN / Unknown Venipuncture / Unknown 06/01/2021 9:24 AM CDT 06/01/2021 9:35 AM CDT Kelley Sanford MD LAB - CHEMISTRY OR DERABLES [facility] [address] [place] [address] * (ABNORMAL) CBC W AUTO DIFFERENTIAL (06/01/2021 9:24 AM CDT) WBC 6.3 4.4 - 10.7 x10E9/L 06/01/2021 9:39 AM CDT [facility] WBC Corrected 06/01/2021 9:39 AM CDT [facility] RBC 5.47(H) 3.80 - 5.20 x10E12/L 06/01/2021 9:39 AM CDT [facility] Hemoglobin 15.5 12.0 - 15.6 gm/dL 06/01/2021 9:39 AM CDT [facility] Hematocrit 50.1(H) 35.9 - 45.5 % 06/01/2021 9:39 AM CDT [facility] MCV 91.6 80.7 - 98.3 fl 06/01/2021 9:39 AM CDT [facility] MCH 28.3 26.7 - 34.0 pg 06/01/2021 9:39 AM CDT [facility] MCHC 30.9 30.8 - 35.9 gm/dL 06/01/2021 9:39 AM CDT [facility] Platelet Count 326 153 - 416 x10E9/L 06/01/2021 9:39 AM CDT [facility] RDW-CV 16.4(H) 12.1 - 14.9 % 06/01/2021 9:39 AM CDT [facility] MPV 8.6(L) 9.4 - 12.9 fl 06/01/2021 9:39 AM CDT [facility] Neutrophils % 47.8 44.0 - 73.0 % 06/01/2021 9:39 AM CDT [facility] Lymphocytes % 41.6 20.0 - 43.0 % 06/01/2021 9:39 AM CDT [facility] Monocytes % 6.8 5.0 - 13.0 % 06/01/2021 9:39 AM CDT [facility] Eosinophils % 2.5 0.0 - 6.0 % 06/01/2021 9:39 AM CDT [facility] Basophils % 1.1 0.0 - 2.0 % 06/01/2021 9:39 AM CDT [facility] Immature Granulocytes 0.2 0 - 1 % 06/01/2021 9:39 AM CDT [facility] Neutrophil Absolute 3.02 2.01 - 7.14 x10E9/L 06/01/2021 9:39 AM CDT [facility] Lymphocytes Absolute 2.63 1.07 - 3.94 x10E9/L 06/01/2021 9:39 AM CDT [facility] Monocytes Absolute 0.43 0.26 - 1.07 x10E9/L 06/01/2021 9:39 AM CDT [facility] Eosinophils Absolute 0.16 0 - 0.47 x10E9/L 06/01/2021 9:39 AM CDT [facility] Basophils Absolute 0.07 0 - 0.08 x10E9/L 06/01/2021 9:39 AM CDT [facility] Immature Granulocytes Absolute 0.01 0.00 - 0.06 x10E9/L 06/01/2021 9:39 AM CDT [facility] nRBC Auto 0 /100 WBC 06/01/2021 9:39 AM CDT [facility] Blood BLOOD SPECIMEN / Unknown Venipuncture / Unknown 06/01/2021 9:24 AM CDT 06/01/2021 9:35 AM CDT Kelley Sanford MD LAB - HEMATOLOGY O RDERABLES [facility] [address] [place] [address] documented in this encounter Visit Diagnoses Diagnosis Preoperative examination- Primary Preoperative examination, unspecified Diagnosis unknown Other unknown and unspecified cause of morbidity or mortality Chronic obstructive pulmonary disease, unspecified COPD type (HCC) documented in this encounter Administered Medications Inactive [...] at 1607, Until Sun06/01/21 at 1731, Post-op heparin injection 5,000 Units 5,000 Units, Subcutaneous, [...] 9:25 AM CDT 20 mL/ hr lidocaine PF (Xylocaine MPF) 1 % injection [...] ($ Given - Prov ider: Joie Boyer, HAIRMASTERS MANAGER-EXPORT CLERK) heparin injection 5,000 Units (COMPLETED) 5,000 Units, Subcutaneous, ONCE, 1 dose, On Sun06/01/21 at 1000 0927 ($ Given - Prov ider: Carmela Cutler, BORIS) ibuprofen (Motrin) tablet 600 mg 600 mg, [...] locally to anesthetize prior to insertion)., Pre-op 0926 ($ Given - Prov ider: Carmela Cutler, BORIS) magnesium sulfate 2 g in 50 mL bolus (COMPLETED) 2 g, at 150 mL/hr, Administer over 20 Minutes, ONCE, 1 dose, On Sun06/01/21 at 0845, MAXIMUM rate 2g/10min 0955 ($ Given - Prov ider: Joie Boyer, HAIRMASTERS MANAGER-EXPORT CLERK) morphine CR 12hr (MS Contin) tablet 30 mg (COMPLETED) 30 mg, Oral, ONCE, 1 dose, On Sun06/01/21 at 1000, Do not crush, chew, or cut in half. 0926 ($ Given - Prov ider: Carmela Cutler, [...] 1 mg of scopolamine over 72 hours. 0926 ($ Applied - Provider: Carmela Cutler RN) scopolamine patch placement confirmation(Linked Group 1) Transdermal, [...] [id number] (Rate Change - Provider: Joie Boyer APRN-EXPORT CLERK) PRN Medication Order 05/30/2021 05/31/2021 06/01/2021 acetaminophen [...] daily. documented in this encounter Care Teams Supervisor Bindery Relationship Specialty Start Date End Date Watson Perry MD [address] [place] [phone] PCP - General 12/03/19 documented as of this encounter
--- OUTSIDE RECORDS SUMMARY | 2024-11-23 15:03 | XMS_ITS | Encounter Summary ---
Author Organization [facility] Address [address] [place] [address] Care Team Providers Care Duty Engineer Name Role Phone Watson Perry MD Primary Care Provider [phone] Reason for Visit * Reason Onset Date Comments Imaging 01/01/2020 mammogram Encounter Details Date Type Department Care Team (Late st Contact Info) Description 01/01/2020 Telephone [facility] [employer] [address] [address] Kelley Sanford MD [address] [place] [phone] Imaging (mammogram) Social History Tobacco Use Types Packs/Day [...] Encounter - Leanne Shell RN - 01/01/2020 11:49 AM MATERIAL ATTENDANT SEE previous encounter RIAL ATTENDANT * Telephone Encounter - Kiah Dejesus - 01/01/2020 10:26 AM CST Pt need orders for mammogram sent to [place] so that the pt can call and schedule appointment [phone] RIAL ATTENDANT documented in this encounter Plan of Treatment Not on file documented as of this encounter Visit Diagnoses Not on filedocumented in this encounter Care Teams Duty Engineer Relationship Specialty Start Date End Date Watson Perry MD [address] [place] [phone] PCP - General 12/03/19 documented as of this encounter
--- OUTSIDE RECORDS SUMMARY | 2024-11-23 15:03 | XMS_ITS | Encounter Summary ---
Author Organization [facility] Address [address] [facility] [place] [address] Care Team Providers Care Water Resources Engineer Name Role Phone Watson Perry MD Primary Care Provider [phone] Reason for Visit * Reason Onset Date Comments Results 12/18/2019 Encounter Details Date Type Department Care Team (Late st Contact Info) Description 12/18/2019 Telephone [facility] Gyne[facility]'s [facility] [address] [place] [address] Kelley Sanford MD [address] [facility] [address] [place], [place] [phone] Results Social History Tobacco Use Types Packs/Day Years [...] Telephone Encounter - Kelley Sanford MD - 12/18/2019 2:35 PM [employer] Called patient with pathology results which demonstrated a polyp and simple hyperplasia. Would recommend treatment with progesterone for that. Patient amenable. Will need repeat sampling of endometrium down the line. CT chest was relatively unremarkable. 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 With uterus ruled out as source of malignancy it is unclear to me if these lymph nodes are truly pathologic and if so what primary source of malignancy would be. Would recommend PET scan for further assessment. Pt is coming back for post op appt on 12/30. Will see if we can arrange PET that day here. If not, she can do at [facility]. Leaving for vacation on 01/05. Kelley Sanford MD Utilities Service Investigator of Gynecologic Oncology Dept of Obstetrics, Gynecology, and Women's Health 12/18/2019 2:38 PM [employer] documented in this encounter Plan of Treatment Not on file documented as of this encounter Visit Diagnoses Not on filedocumented in this encounter Care Teams Water Resources Engineer Relationship Specialty Start Date End Date Watson Perry MD [address] [place] [phone] PCP - General 12/03/19 documented as of this encounter
--- OUTSIDE RECORDS SUMMARY | 2024-11-23 15:03 | XMS_ITS | Encounter Summary ---
Author Organization [facility] Address [address] [place] [address] Care Team Providers Care Baseball Glove Stuffer Name Role Phone Unknown, Provider Primary Care Provider Unavaila ble Encounter Details Date Type Department Care Team (Latest Contact Info) Description 05/11/2010 10:39 AM CDT - 05/11/2010 11:59 PM CDT Hospital Encounter [facility] [address] [place] [address] Unknown, Provider ABR Sedation Discharge Disposition: Home [...] Procedure Name Priority Date/Time Associated Diagnosis Comments PT PTT PANEL Today 05/11/2010 11:04 AM CDT CBC W AUTO DIFFERENTIAL Today 05/11/2010 11:04 AM CDT BASIC METABOLIC PANEL (CALCIUM TOTAL) Today 05/11/2010 11:04 AM CDT EKG 12-LEAD Routine 05/11/2010 Carcinoma (Hcc) documented in this encounter Results * PT PTT PANEL (05/11/2010 11:04 AM CDT) PT 9.6 9.4 - 11.4 seconds [facility] INR 0.91 SEE BELOW [facility] Comment: Conventional anticoagulation ?? 2.0-3.0 Intensive anticoagulation ?? 2.5-3.5 PTT 26.9 24.0 - 33.0 seconds [facility] BLOOD SPECIMEN / Unknown 05/11/2010 11:04 AM CDT 05/11/2010 11:04 AM CDT Provider Unknown LAB - COAGULATION OR DERABLES Performing Organization Address [facility] de Phone Number [facility] [address] [place] [phone] * BASIC METABOLIC PANEL (CALCIUM TOTAL) (05/11/2010 11:04 AM CDT) Sodium 143 137 - 145 mmol/L [facility] Potassium 4.5 3.6 - 5.0 mmol/L [facility] Chloride 106 98 - 107 mmol/L [facility] BUN 9 7 - 17 mg/dl [facility] Creatinine 0.82 0.52 - 1.04 mg/dl [facility] Glucose 101 65 - 105 mg/dl [facility] CO2 28 22 - 30 mmol/L [facility] Calcium 10.2 8.4 - 10.2 mg/dl [facility] eGFR by MDRD 72 >60 mL/min/1.7 3m2 [facility] Comment eGFR [facility] Comment: ? The eGFR does not apply to patients who are younger than ? 18 or older than 70. BLOOD SPECIMEN / Unknown 05/11/2010 11:04 AM CDT 05/11/2010 11:04 AM CDT Provider Unknown LAB - CHEMISTRY [place] Performing Organization Address [facility] de Phone Number [facility] [address] [place] [phone] * (ABNORMAL) CBC W AUTO DIFFERENTIAL (05/11/2010 11:04 AM CDT) WBC 11.5(H) 4.0 - 10.0 K/CUMM [facility] RBC 4.83 3.80 - 5.80 M/CUMM [facility] Hemoglobin 14.7 12.0 - 16.0 gm/dl [facility] Hematocrit 42.9 37.0 - 47.0 % [facility] MCV 88.8 80.0 - 100.0 fl [facility] MCH 30.4 26.0 - 34.0 pg [facility] MCHC 34.3 31.0 - 37.0 gm/dl [facility] Platelet Count 376 150 - 400 K/CUMM [facility] RDW 13.4 11.5 - 14.5 % [facility] Neutrophils % Manual 33(L) 50 - 70 manual % [facility] Band % Manual 0 0 - 6 manual % [facility] Lymphocytes % Manual 56(H) 20 - 40 manual % [facility] Monocytes % Manual 9 0 - 12 manual % [facility] Eosinophils % Manual 1 0 - 5 manual % [facility] Basophils % Manual 1 0 - 1 manual % [facility] Absolute Band 0.00 0.00 - 0.90 x1000/cmm [facility] RBC Morphology Normal [facility] WBC Morph Normal Morphology [facility] Cells Counted 100 [facility] Comment SMEAR REVIEW COMPLETED [facility] BLOOD SPECIMEN / Unknown 05/11/2010 11:04 AM CDT 05/11/2010 11:04 AM CDT Provider Unknown LAB - HEMATOLOGY ORD ERABLES Performing Organization Address City/State/[facility] Co de Phone Number [facility] [address] [place] [address] * EKG 12-LEAD (05/11/2010) Ahsan Mccullough MD ECG ORDERABLES documented in this encounter Visit Diagnoses Diagnosis Carcinoma (HCC) Other malignant neoplasm without specification of site documented in this encounter Care Teams Baseball Glove Stuffer Relationship Specialty Start Date End Date Unknown, Provider PCP - General 05/11/10 05/11/10 documented as of this encounter
--- OUTSIDE RECORDS SUMMARY | 2024-11-23 15:03 | XMS_ITS | Encounter Summary ---
Author Organization [facility] Address [address] [facility] [place] [address] Care Team Providers Care Tab Machine Operator Name Role Phone Watson Perry MD Primary Care Provider [phone] Reason for Visit * Reason Onset Date Comments Surgery Scheduling 05/14/2020 Encounter Details Date Type Department Care Team (Late st Contact Info) Description 05/14/2020 Telephone [facility] [address] [place] [address] Kelley Sanford MD [address] [facility] [address] [place], [place] [phone] Surgery Scheduling Social History Tobacco Use Types Packs/Day [...] * Telephone Encounter - Sonya Valadez - 05/14/2020 3:29 PM CDT Pt returned call, scheduled surgery and went over preop instructions. Mailed info to pt. * Telephone Encounter - Sonya Valadez - 05/14/2020 2:18 PM CDT Called pt, lm on vm, asked pt to cb at [phone] and ask for Sonya. TIME HELD ON OR SCHEDULE FOR DR SANFORD FOR 05.31.20 AT 11AM documented in this encounter Plan of Treatment Not on file documented as of this encounter Visit Diagnoses Not on filedocumented in this encounter Care Teams Tab Machine Operator Relationship Specialty Start Date End Date Watson Perry MD [address] [place] [phone] PCP - General 12/03/19 documented as of this encounter
--- OUTSIDE RECORDS SUMMARY | 2024-11-23 15:03 | XMS_ITS | Encounter Summary ---
Author Organization [facility] Address [address] [facility] [place] [address] Care Team Providers Care Principal Systems Architect Name Role Phone Watson ePrry MD Primary Care Provider Reason for Visit * Reason Comments Ultrasound Encounter Details Date Type Department Care Team (Latest Contact Info) Description 05/13/2020 11:00 AM CDT Procedure visit [facility] Obstetrics Gynecology and Women's Health [address] [place] [place] [phone] Postmenopausal bleeding ; Simple endometrial hyperplasia; Endometrial polyp Social History Tobacco Use Types Packs/Day Years [...] on file documented as of this encounter Procedure Notes * Leanne Levy - 05/13/2020 11:05 AM CDTAssociated Order(s): PROC US ECHOGRAPHY TRANSVAGINAL Procedure(s): AL SONO EXAM, TRANSVAGINAL Pre-Procedure Diagnose(s): Simple endometrial hyperplasia; Postmenopausal bleeding; Endometrial polyp Documentation in digisonics. documented in this encounter Plan of Treatment Not on file documented as of this encounter Procedures Procedure Name Priority Date/Time Associated Diagnosis Comments IMAGING/RADIOLOGY/XRA Y RESULTS ORDER 05/14/2020 7:00 AM CDT AL SONO EXAM, TRANSVAGINAL Routine 05/13/2020 11:05 AM CDT Simple endometrial hyperplasia Postmenopausal bleeding documented in this encounter Results * IMAGING RADIOLOGY XRAY RESULTS ORDER (05/14/2020 7:00 AM CDT) Anatomical Region Laterality Modality Other Narrative 05/14/2020 7:00 AM CDT Ordered by an unspecified provider. Scanned Document IMAGING * AL SONO EXAM, TRANSVAGINAL (05/13/2020 11:05 AM CDT) Narrative Leanne Levy - 05/13/2020 11:05 AM CDT Leanne Levy ? 05/13/2020 11:05 AM Documentation in digisonics. Kelley Sanford MD PROCEDURE/MINOR MAJOR RGICAL ORDERABLES documented in this encounter Visit Diagnoses Diagnosis Postmenopausal bleeding- Primary Simple endometrial hyperplasia Endometrial hyperplasia, unspecified Endometrial polyp Polyp of corpus uteri documented in this encounter Care Teams Principal Systems Architect Relationship Specialty Start Date End Date Watson Perry MD [address] [place] [phone] PCP - General 12/03/19 documented as of this encounter
--- OUTSIDE RECORDS SUMMARY | 2024-11-23 15:03 | XMS_ITS | Encounter Summary ---
Author Organization [facility] Address [address] [facility] [place] [address] Care Team Providers Care Vocational Rehabilitation Administrator Name Role Phone Watson Perry MD Primary Care Provider [phone] Reason for Visit * Reason Comments Post-Op SURG 05/31 Encounter Details Date Type Department Care Team (Late st Contact Info) Description 06/10/2020 10:50 AM CDT Office Visit [facility] Obstetrics Gynecology and Women's Health [address] [place] [address] Kelley Sanford MD [address] [phone] S/P dilation and curettage (Primary Dx) Social History Tobacco Use Types Packs/Day Years Used Date Smoking Tobacco: Every Day Cigarettes 0.3 40 Smokeless Tobacco: Never Tobacco Cessation:Counseling Given: No Comments: 5-6 cigarettes per day Alcohol Use [...] Sign Reading Time Taken Comments Blood Pressure 126/70 06/10/2020 10:42 AM CDT Pulse - - Temperature - - Respiratory Rate - - Oxygen Saturation - - Inhaled Oxygen Concentration - - Weight 63.5 kg (140 lb) 06/10/2020 10:42 AM CDT Height 165.1 cm (5' 5 ) 06/10/2020 10:42 AM CDT Body Mass Index 23.3 06/10/2020 10:42 AM CDT documented in this encounter Progress Notes * Kelley Sanford MD - 06/10/2020 11:09 AM CDT [facility] Gynecologic Oncology Established Patient Visit Date of Service: 06/10/2020 Patient Name: Janeth Parker Chief Complaint: surveillance History of Present Illness: Janeth Parker is a 70 year old who presents for a follow [...] this. She had a mammogram that was wnl. She has never had a colonoscopy but did have upper GI. Currently having some intermittent pink or brown tinged discharge. Denies pain, cramping. Has constipation. This is baseline. Recent US today with focal thickening and an area that appears a bit cystic within this thickening.Repeat D&C done on 05/31. Quite scant tissue and pathology benign. Medical, Surgical, and Family History reviewed--there have [...] denies bruising, nosebleeds, bleeding gums Exam: BP 126/70 Ht 5' 5 Wt 140 lb BMI 23.3 kg/m2 ECO Gen: NAD, appears well after surgery Abd: soft, nontender, hernia absent, no hepatosplenomegaly : NEFG, normal vagina with no lesions, tenaculum sites well healed Lymph: no supraclavicular, axillary, or inguinal adenopathy Skin: no rashes or lesions Neuro: oriented x3 Psychiatric: appropriate affect Assessment/Plan: 70 year old with postmenopausal bleeding Previously had endometrial polyp with simple hyperplasia. Couldn't tolerate progesterone--irregularbleeding. Follow up D&C benign pathology. Reasonable for patient to resume care with benign vise hand. Will of course be on retainer should any issues arise in the future I have spent 20 minutes with the patient of which >50% was spent in counseling. Kelley Sanford MD Testing Director of Gynecologic Oncology Dept of Obstetrics, Gynecology, and Women's Health 06/10/2020 11:09 AM documented in this encounter Plan of Treatment Not on file documented as of this encounter Visit Diagnoses Diagnosis S/P dilation and curettage- Primary Other postprocedural status documented in this encounter Care Teams Vocational Rehabilitation Administrator Relationship Specialty Start Date End Date Watson Perry MD [address] [place] [phone] PCP - General 12/03/19 documented as of this encounter
--- OUTSIDE RECORDS SUMMARY | 2024-11-23 15:03 | XMS_ITS | Encounter Summary ---
Author Organization [facility] Address [address] [place] [address] Care Team Providers Care Burial Needs Salesperson Name Role Phone Watson Perry MD Primary Care Provider [phone] Reason for Referral * Radiology Services (Routine) - Closed Specialty Diagnoses / Procedures Referred By Contac t Referred To Contact Radiology Diagnoses Thickened endometrium Postmenopausal bleeding Retroperitoneal lymphadenopathy Mesenteric lymphadenopathy Procedures PET CT SKULL TO MID THIGH Kelley Sanford MD [address] [phone] Referral ID Status Reason Start Date Expiration Date Visits Re quested Visits Authorized [id number] Closed 12/18/2019 06/15/2020 1 1 [employer] Reason for Visit * Reason Onset Date Comments Future Appointment 12/18/2019 Imaging 12/18/2019 Encounter Details Date Type Department Care Team (Late st Contact Info) Description 12/18/2019 Telephone [facility] Obstetrics Gynecology and Women's Health [address] [place] [address] Kelley Sanford MD [address] [phone] Future Appointment; Imaging Social History Tobacco Use Types Packs/Day Years [...] on file documented as of this encounter Patient Instructions * Patient Instructions* Kiah Dejesus - 12/19/2019 2:42 PM [employer] Pt returning call [employer] documented in this encounter Miscellaneous Notes * Telephone Encounter - Leanne Shell RN - 12/19/2019 2:58 PM CST Called patient and appt info and instructions given Patient verbalized understanding [employer] * Telephone Encounter - Leanne Shell RN - 12/19/2019 11:26 AM [employer] Left message [employer] * Telephone Encounter - Leanne Shell RN - 12/18/2019 3:20 PM CST PET Scan scheduled at [address] ??[address] Sunday, 12/30 @ 2:30pm ??ARRIVAL ??2pm The day before the test eat a high protein, low carbohydrate diet. ??You may eat your regular diet but no extra carbohydrates such as pasta, sweets, breads. No vigorous exercise the day before the test. Drink at least 8 glasses of water the day before the test On the day of the test, do not eat or drink anything except water for 6 hours prior to the test. ??You may take your morning medicines with water only. ?? DO NOT CHEW GUM, NO MOUTH LOZENGES, NO HARD CANDY the day of the test. [employer] documented in this encounter Plan of Treatment Not on file documented as of this encounter Results * PET CT SKULL TO MID THIGH (12/30/2019 2:54 PM [employer]) Anatomical Region Laterality Modality Head, Lower Extremity Nuclear Me dicine 12/31/2019 9:20 AM [employer] Addenda Addendum by Adri Van DO on 12/31/2019 10:44 AM [employer] In addition to the impression, there is somewhat dense breast tissue bilaterally with mild FDG uptake as well as a moderately FDG avid 1.2 cm left axillary node. Findings may be reactive but malignancy is not excluded. Recommend further evaluation with mammography if not already performed. Addending Radiologist: Adri Van MD on 12/31/2019 at 10:41 AM Impressions 12/31/2019 10:05 AM [employer] 1. Enlarged uterus with intense FDG uptake [...] at 10:05 AM Narrative 12/31/2019 10:05 AM [employer] Procedure: PET/CT study Referring physician: Dr. Sanford [...] in this encounter Visit Diagnoses Diagnosis Thickened endometrium- Primary Nonspecific (abnormal) findings on radiological and other examination of genitourinary organs Postmenopausal bleeding Retroperitoneal lymphadenopathy Enlargement of lymph nodes Mesenteric lymphadenopathy Enlargement of lymph nodes Thickened endometrium Nonspecific (abnormal) findings on radiological and other examination of genitourinary organs Postmenopausal bleeding Retroperitoneal lymphadenopathy Enlargement of lymph nodes Mesenteric lymphadenopathy Enlargement of lymph nodes documented in this encounter Care Teams Burial Needs Salesperson Relationship Specialty Start Date End Date Watson Perry MD [address] [place] [phone] PCP - General 12/03/19 documented as of this encounter
--- OUTSIDE RECORDS SUMMARY | 2024-11-23 15:03 | XMS_ITS | Encounter Summary ---
Author Organization [facility] Address [address] [facility] [place] [address] Care Team Providers Care Formal Waiter/Waitress Name Role Phone Watson Perry MD Primary Care Provider [phone] Reason for Visit * Reason Comments Follow-up Encounter Details Date Type Department Care Team (Late Contact Info) Description 05/13/2020 11:50 AM CDT Office Visit [facility] Obstetrics Gynecology and Women's Health [address] [place] [address] Kelley Sanford MD [address] [phone] Endometrial thickening on ultrasound (Primary Dx); Postmenopausal bleeding Social History Tobacco Use Types Packs/Day Years [...] Sign Reading Time Taken Comments Blood Pressure 122/82 05/13/2020 10:26 AM CDT Pulse 64 05/13/2020 10:26 AM CDT Temperature - - Respiratory Rate - - Oxygen Saturation - - Inhaled Oxygen Concentration - - Weight 60.3 kg (133 lb) 05/13/2020 10:26 AM CDT Height 165.1 cm (5' 5 ) 05/13/2020 10:26 AM CDT Body Mass Index 22.13 05/13/2020 10:26 AM CDT documented in this encounter Progress Notes * Kelley Sanford MD - 05/13/2020 12:13 PM CDT [facility] Gynecologic Oncology Established Patient Visit Date of Service: 05/13/2020 Patient Name: Janeth Parker Chief Complaint: surveillance [...] pain, cramping. Has constipation. This is baseline. US today with focal thickening and an area that appears a bit cystic within this thickening. Medical, Surgical, and Family History reviewed--there have [...] denies bruising, nosebleeds, bleeding gums Exam: BP 122/82 Pulse 64 Ht 5' [...] endometrial polyp with simple hyperplasia. Couldn't tolerate progesterone. US today with focal thickening and still having some spotting/discharge. Recommend hysteroscopy, dilation andcurettage again. Discussed option of IUD placement. Discussed option of definitive hyst. I have spent 20 minutes with the patient of which >50% was spent in counseling. Kelley Sanford MD Advertising Account Manager of Gynecologic Oncology Dept of Obstetrics, Gynecology, and Women's Health 05/13/2020 12:13 PM documented in this encounter Plan of Treatment Not on file documented as of this encounter Visit Diagnoses Diagnosis Endometrial thickening on ultrasound- Primary Postmenopausal bleeding documented in this encounter Care Teams Formal Waiter/Waitress Relationship Specialty Start Date End Date Watson Perry MD [address] [place] [phone] PCP - General 12/03/19 documented as of this encounter
--- OUTSIDE RECORDS SUMMARY | 2024-11-23 15:03 | XMS_ITS | Encounter Summary ---
Author Organization [facility] Address [address] [facility] [place] [address] Care Team Providers Care Lab Tester Name Role Phone Watson Perry MD Primary Care Provider [phone] Reason for Visit * Auth/Cert Specialty Diagnoses / Procedures Referred By Contac t Referred To Contact Diagnoses Diagnosis unknown Diagnosis unknown [R69] Procedures HYSTEROSCOPY WITH DILATION & CURETTAGE Referral ID Status Reason Start Date Expiration Date Visits Re quested Visits Authorized [id number] 1 1 Encounter Details Date Type Department Care Team (Late st Contact Info) Description 05/31/2020 10:38 AM CDT Anesthesia Event [facility] [address] [place] [address] Renny Dee DO [address] [facility] [address] Pollo Daniel APRN-HEAD SOFT SUGAR OPERATOR Anesthesia Record Procedure Summary Procedure Name Responsible Anesthesiologist Anesthesia Start Time Anesthesia Stop Time HYSTEROSCOPY WITH DILATION & CURETTAGE (Vagina ) Renny Dee DO 05/31/20 1038 05/31/20 1121 Events Date Time Event Comment 05/31/2020 1038 An Start 1039 An Start Data 1044 PT Reassessment 1100 1102 Timeout Anesthesia part icipated in timeout at the time documented in the record by nursing. 1120 an stop data 1121 Electnc Sig 1121 ANPTO2 1121 An Stop Meds Name Total midazolam 2 mg/2mL injection 2 mg fentaNYL 100 mcg/2mL injection 50 mcg lidocaine 2% injection (20 mg/ml) 50 mg propofol 200mg/20mL injection 60 mg propofol (DIPRIVAN) injection 10mg/mL 45 .72 mg lactated ringers infusion 800 mL * Agents Name Insp. N2O Exp. N2O O2 N2O * Blood No blood administrations on file. Lines, Drains, and Airways Type Details Placement Removal Peripheral IV Date: 05/31/20; Time: 933; Orientation: Right; Placed By: Idania ESCALANTE; Tolerance: Well 05/31/20 0934 by Kiara Copeland RN 05/31/20 1322 by Keiry Junior RN Procedural Site (Incision) 05/31/20; 1053; Vagina; 05/31/20; 19305/31/20 1053 by Aminata Begum RN 05/31/201932 by Generic, Auto Release documented in this [...] as of this encounter Progress Notes * Renny Dee, - 05/31/2020 12:56 PM CDT ANESTHESIA POSTOP EVALUATION NOTE Procedure: HYSTEROSCOPY WITH DILATION & CURETTAGE (N/A Vagina ) Janeth Parker is a 70 year old female Patient Vitals for the past 6 hrs: BP Temp Pulse Resp SpO2 Pain Rating Score #1 Pain Scale/Observation 05/31/20 0932 102/60 96.6 ??F (35.9 ??C) 65 16 91 % 0 N 05/31/20 1119 110/65 97.2 ??F (36.2 ??C) 60 11 100 % 0 N;B 05/31/20 1120 104/61 -- 56 11 100 % -- -- 05/31/20 1125 101/66 -- 54 13 100 % -- -- 05/31/20 1130 116/71 -- 52 12 100 % 0 N;B 05/31/20 1135 115/73 -- 58 (!) 8 100 % -- -- 05/31/20 1140 112/70 -- 58 10 100 % -- -- 05/31/20 1145 118/66 97.9 ??F (36.6 ??C) 58 11 96 % 0 N;B 05/31/20 1150 111/70 -- 60 14 95 % -- -- 05/31/20 1203 -- -- -- -- -- 0 No/denies pain 05/31/20 1207 95/52 98 ??F (36.7 ??C) 62 16 95 % -- -- 05/31/20 1235 94/60 -- 76 18 98 % 0 No/denies pain Anesthesia Type: MAC Mental Status: sufficiently recovered from acute administration of anesthesia to participate in theevaluation, awake and neurologic status has returned to expected level of consciousness Respiratory Function: natural Cardiac Function: stable Postop Pain: acceptable to the patient Postop Hydration: adequate Postop Nausea: none Assessment: no apparent anesthetic complications, patient tolerated procedure well and no evidence of recall Patient Disposition: Release from Anesthesia Care Non Reportable Improvement Section (otherwise blank): * Nu Livingston APRN-HEAD SOFT SUGAR OPERATOR - 05/31/2020 10:12 AM CDT ANESTHESIA PREOPERATIVE EVALUATION NOTE Procedure: HYSTEROSCOPY WITH DILATION & CURETTAGE (N/A Vagina ) NPO status: Since Midnight;*Except Oral meds with H2O;NO Tobacco Since Midnight (05/31/2020 9:35 AM) Last Clear Liquids: 0935 (05/31/2020 9:35 AM) Vitals: No data found. ANESTHESIA PRE-EVALUATION NOTE Physical Exam: Orientation X3 Airway/Mallampati Score: II Mouth Opening Distance: 3 fingerwidths Neck ROM: limited TM Distance: > 3 FB Teeth: normal and Other - comments (Right upper premolar implant.) Heart: regular rate rhythm Lungs: normal Review of Systems: History of anesthetic complications: No Poor Exercise Tolerance: No Recent Chest Pain: No Shortness of Breath: No AICD/Pacemaker: No Renal Disease: No Diagnostic Tests: Lab(s) reviewed: Yes. ANESTHESIA PLAN ASA Score: 2 NPO Status: No solids since midnight and No liquids within 2 hours Anesthesia Plan: MAC Planned Induction: intravenous Planned Postop Destination: PACU Anesthetic plan was discussed with: patient, spouse Anesthetic Plan discussion was: Consented The patient's procedural Anesthetic Plan was discussed with the anesthesiologist and HEAD SOFT SUGAR OPERATOR. BMI, Height, Weight Tobacco History Estimated body mass index is 23.3 kg/m?? as calculated from the following: Height as of an earlier encounter on 05/31/20: 1.651 m (5' 5 ). Weight as of an earlier encounter on 05/31/20: 63.5 kg (140 lb). Social History Tobacco Use Smoking Status Current Every Day Smoker ??? Packs/day: 0.25 ??? Years: 40.00 ??? Pack years: 10.00 ??? Types: Cigarettes Smokeless Tobacco Never Used Tobacco Comment 5-6 cigarettes per day Alcohol History Drug History Social History Substance and Sexual Activity Alcohol Use No ??? Frequency: Never ??? Binge frequency: Never Social History Substance and Sexual Activity Drug Use No Outpatient Medications: Inpatient Medications: No outpatient medications have been marked as taking for the 05/31/20 encounter (Anesthesia Event) with Pollo Daniel APRN-CRNA. No current facility-administered medications for this visit. Facility-Administered Medications Ordered in Other Visits Medication Dose Last Dose ??? lactated ringers ??? lidocaine 0.2 mL 0.2 mL at 05/31/20 0937 Allergies: Allergies Allergen Reactions ??? Ibu [Ibuprofen Micronized] Rash Relevant Problems No relevant active problems Problem List: Patient Active Problem List Diagnosis Date Noted ??? Carcinoma 05/11/2010 Medical History: Past Medical History: Diagnosis Date [...] ??? SURGICAL HISTORY OF right thumb surgery Lab Results: Invalid input(s): PREGTESTUR documented in this encounter Miscellaneous Notes * Anesthesia Transfer of Care - Pollo Daniel, SUPERVISOR TRANSFERRING AND BOXING-HEAD SOFT SUGAR OPERATOR - 05/31/2020 11:22 AM CDT ANESTHESIA TRANSFER OF CARE NOTE Today's Date: 05/31/2020 Date of : 1950 Patient: Janeth Parker Procedure(s): HYSTEROSCOPY WITH DILATION & CURETTAGE Surgeon(s): Primary: Kelley Sanford MD Preop Diagnosis: Pre-op Diagnois: * Diagnosis unknown [R69] Pre-op Meds (From admission, onward) Start Stop Status Route Frequency Ordered 05/31/20 0930 acetaminophen (TYLENOL) tablet 1,000 mg 05/31 0937 Completed PO ONCE 05/31/20 0905/31/20 1130 atropine injection 0.4 mg 05/319 Sent IV POST-OP ONCE 05/31/20 1117 05/31/20 111 diphenhydrAMINE (BENADRYL) injection 25 mg -- Sent IV ONCE PRN 05/31/20 1117 05/31/20 1117 fentaNYL (PF) (SUBLIMAZE) injection 50 mcg -- Sent IV EVERY 3 MIN PRN 05/31/20 1117 05/31/20 1117 HYDROmorphone (DILAUDID) injection 0.5 mg -- Sent IV EVERY 10 MIN PRN 05/31/20 1117 05/31/20 0930 lactated ringers infusion -- Verified IV PRE-OP CONTINUOUS 05/31/20 0924 05/31/20 1145 lactated ringers infusion 06/01 1144 Sent IV CONTINUOUS 05/31/20 1117 05/31/20 0924 lidocaine PF (XYLOCAINE MPF) 1 % injection 0.2 mL -- Verified INFILTRATION PRE-OP MULTIPLE 05/31/20 0924 05/31/20 111 morphine injection 4 mg -- Sent IV EVERY 5 MIN PRN 05/31/20 1117 05/31/20 111 naloxone (NARCAN) injection 0.04 mg -- Sent IV POST-OP MULTIPLE 05/31/20 1117 05/31/20 111 ondansetron (ZOFRAN) injection 4 mg 05/31 111 Sent IV ONCE PRN 05/31/20 1117 05/31/20 111 prochlorperazine (COMPAZINE) injection 10 mg -- Sent IV ONCE PRN 05/31/20 111 Post-op Diagnosis: * Diagnosis unknown [R69] . Allergies Allergen Reactions ??? Ibu [Ibuprofen Micronized] Rash Vitals: Patient Vitals for the past 3 hrs: BP Temp Pulse Resp SpO2 Pain Rating Score #1 05/31/20 1119 110/65 97.2 ??F (36.2 ??C) 60 11 100 % 0 05/31/20 0932 102/60 96.6 ??F (35.9 ??C) 65 16 91 % 0 Lines, Drains, and Airways Type Details Placement Removal Peripheral IV Date: 05/31/20; Time: 933; Orientation: Right; Location: Hand; Placed By: Idania ESCALANTE; Gauge: 20 Gauge; Locals: Injectable; Tolerance: Well 05/31/20933 by Kiara Copeland RN Intraprocedure I/O Totals Urine Output Urine 150 mL Anesthesia Other Output Estimated Blood Loss 5 mL lactated ringers infusion Volume infused 800 ml Patient Transfer Location: PACU Transport Airway: spontaneous [...] of report from the receiving PACUteam. GAYATHRI Posadas documented in this encounter Plan of Treatment Not on file documented as of this encounter Visit Diagnoses Not on filedocumented in this encounter Administered Medications Inactive Administered Medications - up to 3 most recent administrations Medication Order MAR Action Action Date Dose Rate Site fentaNYL (PF) (SUBLIMAZE) injection PRN, Starting on Sun05/31/20 at 1044, Until Sun05/31/20 at 1121, Anesthesia Intra-op $ Given 05/31/2020 10:50 AM CDT 25 mcg $ Given 05/31/2020 10:44 AM CDT 25 mcg lactated ringers infusion at 20 mL/hr, Intravenous, PRE-OP CONTINUOUS, Starting on Sun05/31/20 at 0930, Until Sun05/31/20 at 1433, Pre-op $ New Bag/Syringe 05/31/2020 11:39 AM CDT 2 0 mL/hr $ New Bag/Syringe 05/31/2020 10:38 AM CDT $ New Bag/Syringe 05/31/2020 9:38 AM CDT 20 mL/ hr lidocaine (XYLOCAINE) 2 % injection PRN, Starting on Sun05/31/20 at 1044, Until Sun05/31/20 at 1122, Anesthesia Intra-op $ Given 05/31/2020 10:44 AM CDT 50 mg midazolam (VERSED) injection PRN, Starting on Sun05/31/20 at 1044, Until Sun05/31/20 at 1121, Anesthesia Intra-op $ Given 05/31/2020 10:44 AM CDT 2 mg propofol (DIPRIVAN) injection PRN, Starting on Sun05/31/20 at 1044, Until Sun05/31/20 at 1121, Anesthesia Intra-op $ Given 05/31/2020 10:44 AM CDT 60 mg propofol (DIPRIVAN) injection CONTINUOUS PRN, Starting on Sun05/31/20 at 1050, Until Sun05/31/20 at 1121, Anesthesia Intra-op $ New Bag/Syringe 05/31/2020 10:50 AM CDT 40 mcg/kg/min 15.24 mL/hr documented in this encounter Care Teams Lab Tester Relationship Specialty Start Date End Date Watson Perry MD [address] [place] [phone] PCP - General 12/03/19 documented as of this encounter
--- OUTSIDE RECORDS SUMMARY | 2024-11-23 15:03 | XMS_ITS | Encounter Summary ---
Author Organization [facility] Address [address] [place] [address] Care Team Providers Care Lumber Puller Name Role Phone Watson Perry MD Primary Care Provider [phone] Reason for Visit * Auth/Cert Specialty Diagnoses / Procedures Referred By Contac t Referred To Contact Diagnoses Diagnosis unknown Diagnosis unknown [R69] Procedures HYSTEROSCOPY WITH DILATION & CURETTAGE Referral ID Status Reason Start Date Expiration Date Visits Re quested Visits Authorized [id number] 1 1 Encounter Details Date Type Department Care Team (Late st Contact Info) Description 12/15/2019 9:01 AM SEO ANALYST Anesthesia Event [facility] PERIOPERATIVE [address] [place] [address] Renny Dee DO [address] [facility] [address] Dylan Herzog MD [address] [facility] [place] [address] Anesthesia Record Procedure Summary Procedure Name Responsible Anesthesiologist Anesthesia Start Time Anesthesia Stop Time HYSTEROSCOPY WITH DILATION & CURETTAGE (Vagina ) Renny Dee DO 12/15/19 0901 12/15/19 1001 Events Date Time Event Comment 12/15/2019 0840 0901 An Start 0902 An Start Data 0906 PT Reassessment 0917 Timeout Anesthesia part icipated in timeout at the time documented in the record by nursing. 0958 ANPTO2 1001 An Stop 1005 an stop data 1006 Electnc Sig Meds Name Total midazolam 2 mg/2mL injection 2 mg fentaNYL 100 mcg/2mL injection 50 mcg lidocaine 2% injection (20 mg/ml) 80 mg propofol 200mg/20mL injection 80 mg propofol (DIPRIVAN) injection 10mg/mL 16 7.22 mg Phenylephrine HCl 10 MG/ML 100 mcg ondansetron 4 mg/2mL injection 4 mg ePHEDrine injection 50 mg/ml 15 mg dexamethasone 4 mg/ml injection 4 mg lactated ringers infusion 1,000 mL * Agents Name Insp. N2O Exp. Sevoflurane Exp. N2O O2 Insp. Sevoflurane N2O * Blood No blood administrations on file. Lines, Drains, and Airways Type Details Placement Removal RETIRED Procedural Site 05/20/10; Nose; 12/15/19; 195505/20/10 0000 by Toya Griffiths RN 12/15/191955 by Generic, Auto Release RETIRED Procedural Site 05/20/10; 1743; Right; Ear; 12/15/19; 195505/20/10 1743 by Amanda Pantoja RN 12/15/191955 by Generic, Auto Release Peripheral IV Date: 12/15/19; Time: 0737; Orientation: Left; Tolerance: Well 12/15/19 0737 by Mateus Ellison RN 12/15/19 1354 by Edwige Pinzon RN Procedural Site (Incision) 12/15/19; 0920; Vagina; 12/15/19; 195512/15/19 0920 by Leslie Coronel RN 12/15/191955 by Generic, Auto Release documented in this [...] of this encounter Progress Notes * Renny Dee DO - 12/15/2019 12:13 PM CST ANESTHESIA POSTOP EVALUATION NOTE Procedure: HYSTEROSCOPY WITH DILATION & CURETTAGE (N/A Vagina ) Janeth Parker is a 69 year old female Patient Vitals for the past 6 hrs: BP Temp Pulse Resp SpO2 Pain Rating Score #1 Pain Scale/Observation 12/15/19 0729 104/49 98 ??F (36.7 ??C) 61 16 96 % -- No/denies pain 12/15/19 0953 122/77 97.3 ??F (36.3 ??C) 75 12 100 % 0 No/denies pain;N;B 12/15/19 0955 122/77 -- 75 12 100 % -- -- 12/15/19 1000 117/67 -- 68 15 100 % 0 No/denies pain;N;B 12/15/19 1005 117/65 -- 64 14 96 % -- -- 12/15/19 1010 114/64 -- 62 13 92 % -- -- 12/15/19 1015 122/76 -- 59 13 92 % 0 No/denies pain;N;B 12/15/19 1020 130/45 -- 68 16 93 % -- -- 12/15/19 1025 123/85 -- 59 14 94 % -- -- 12/15/19 1030 128/73 -- 61 12 93 % 0 No/denies pain;N;B 12/15/19 1035 131/55 -- 64 19 92 % -- -- 12/15/19 1040 123/66 -- 47 11 95 % -- -- 12/15/19 1045 126/65 -- 50 10 95 % -- -- 12/15/19 1050 127/69 -- 58 15 95 % 0 No/denies pain;N;B 12/15/19 1059 118/66 97.4 ??F (36.3 ??C) 59 16 93 % 1 N 12/15/19 1131 114/66 -- 67 16 95 % 1 N Anesthesia Type: MAC Mental Status: awake, sufficiently recovered from acute administration of anesthesia to participatein the evaluation and neurologic status has returned to expected level of consciousness Respiratory Function: natural Cardiac Function: stable Postop Pain: acceptable to the patient Postop Hydration: adequate Postop Nausea: none Assessment: no apparent anesthetic complications, patient tolerated procedure well and no evidence of recall Patient Disposition: Release from Anesthesia Care Non Reportable Improvement Section (otherwise blank): ANALYST * Renny Dee DO - 12/15/2019 8:37 AM CST ANESTHESIA PREOPERATIVE EVALUATION NOTE Procedure: HYSTEROSCOPY WITH DILATION & CURETTAGE (N/A Vagina ) NPO status: Since Midnight;*Except Oral meds with H2O (12/15/2019 7:37 AM) Last Solids/Dairy: 1830 (12/15/2019 7:37 AM) Last Clear Liquids: 0739 (12/15/2019 7:37 AM) Vitals: Patient Vitals for the past 6 hrs: BP Temp Pulse Resp SpO2 12/15/19 0729 104/49 98 ??F (36.7 ??C) 61 16 96 % ANESTHESIA PRE-EVALUATION NOTE Physical Exam: Orientation X3 Airway/Mallampati Score: II Mouth Opening Distance: 3 fingerwidths Neck ROM: limited TM Distance: > 3 FB Teeth: normal and Other - comments (Right upper premolar implant.) Heart: regular rate rhythm Lungs: normal Review of Systems: History of anesthetic complications: No ANESTHESIA PLAN ASA Score: 2 NPO Status: No solids since midnight and No liquids within 2 hours Anesthesia Plan: MAC Planned Induction: intravenous Planned Postop Destination: PACU Anesthetic plan was discussed with: patient, spouse Anesthetic Plan discussion was: Consented BMI, Height, Weight Tobacco History Estimated body mass index is 23.13 kg/m?? as calculated from the following: Height as of this encounter: 1.651 m (5' 5 ). Weight as of this encounter: 63 kg (139 lb). Social History Tobacco Use Smoking Status [...] Outpatient Medications Marked as Taking for the 12/15/19 encounter (Hospital Encounter) Medication Sig Last Dose ??? Calcium Carb-Cholecalciferol (CALCIUM 600 + D PO) Take by mouth 2 times daily 12/14/2019 ??? citalopram Take 1 tablet by mouth once daily 12/14/2019 ??? clonazePAM Take 1 mg by mouth at bedtime. 12/14/2019 ??? esomeprazole Take 1 capsule by mouth once daily 12/14/2019 ??? multivitamin daily Take 1 Tab by mouth daily with food. 12/14/2019 ??? [place]-3 Fatty Acids (FISH OIL PO) Take 1,000 mg by mouth 3 times daily 12/12/2019 at Unknown time ??? pramipexole Take 0.5 mg by mouth at bedtime. 12/14/2019 ??? primidone Take 1 tablet by mouth 2 times daily 12/14/2019 ??? propranolol CR 24hr Take 60 mg by mouth daily. 12/14/2019 ??? rosuvastatin Take 10 mg by mouth at bedtime 12/14/2019 Current Facility-Administered Medications Medication Dose Last Dose ??? lactated ringers ??? lidocaine 0.2 mL 0.2 mL at 12/15/19 0742 Allergies: Allergies Allergen Reactions ??? Ibu [Ibuprofen [...] HISTORY OF right thumb surgery Lab Results: ANALYST documented in this encounter Miscellaneous Notes * Anesthesia Transfer of Care - Pollo Daniel APRN-FELLER SEAM OPERATOR - 12/15/2019 10:00 AM CST ANESTHESIA TRANSFER OF CARE NOTE Today's Date: 12/15/2019 Date of : 1950 Patient: Janeth Parker Procedure(s): HYSTEROSCOPY WITH DILATION & CURETTAGE Surgeon(s): Primary: Kelley Sanford MD Resident - Assisting: Amalia Rome MD Preop Diagnosis: Pre-op Diagnois: * Diagnosis unknown [R69] Pre-op Meds (From admission, onward) Start Stop Status Route Frequency Ordered 12/15/19 0730 acetaminophen (TYLENOL) tablet 1,000 mg 12/15 0742 Completed PO ONCE 12/15/19 0715 12/15/19 0920 dexamethasone (DECADRON) injection -- Sent PRN 12/15/19 1001 12/15/19 0910 ePHEDrine injection -- Sent PRN 12/15/19 0932 12/15/19 0912 fentaNYL (PF) (SUBLIMAZE) injection -- Sent PRN 12/15/19 0914 12/15/19 0730 lactated ringers infusion -- Verified IV PRE-OP CONTINUOUS 12/15/19 0715 12/15/19 0901 lactated ringers infusion -- Sent CONTINUOUS PRN 12/15/19 1002 12/15/19 0715 lidocaine (XYLOCAINE MPF) 1 % injection 0.2 mL -- Verified INFILTRATION PRE-OP MULTIPLE 12/15/19 0715 12/15/19 0908 lidocaine (XYLOCAINE) 2 % injection -- Sent PRN 12/15/19 0914 12/15/19 0901 midazolam (VERSED) injection -- Sent PRN 12/15/19 0914 12/15/19 0914 Ondansetron HCl (ZOFRAN) injection -- Sent PRN 12/15/19 0914 12/15/19 0909 Phenylephrine HCl (MICHELLE-SYNEPHRINE) injection -- Sent IV PRN 12/15/19 0926 12/15/19 0908 propofol (DIPRIVAN) injection -- Sent PRN 12/15/19 0914 12/15/19 0908 propofol (DIPRIVAN) injection -- Sent CONTINUOUS PRN 12/15/19 0924 Post-op Diagnosis: * Diagnosis unknown [R69] . Allergies Allergen Reactions ??? Ibu [Ibuprofen Micronized] Rash Vitals: Patient Vitals for the past 3 hrs: BP Temp Pulse Resp SpO2 Pain Rating Score #1 12/15/19 1000 117/67 -- 68 15 100 % -- 12/15/19 0955 122/77 -- 75 12 100 % -- 12/15/19 0953 122/77 97.3 ??F (36.3 ??C) 75 12 100 % 0 12/15/19 0729 104/49 98 ??F (36.7 ??C) 61 16 96 % -- Lines, Drains, and Airways Type Details Placement Removal Peripheral IV Date: 12/15/19; Time: 736; Orientation: Left; Location: Wrist; Gauge: 20 Gauge; Locals: Injectable; Tolerance: Well 12/15/19 0737 by Mateus Ellison RN Intraprocedure I/O Totals Urine Output Urine 50 mL Anesthesia Other Output Estimated Blood Loss 5 mL lactated ringers infusion Volume infused 1000 ml Patient Transfer Location: PACU Transport Airway: [...] report from the receiving PACUteam. GAYATHRI Posadas ANALYST documented in this encounter Plan of Treatment Not on file documented as of this encounter Visit Diagnoses Not on filedocumented in this encounter Administered Medications Inactive Administered Medications - up to 3 most recent administrations Medication Order MAR Action Action Date Dose Rate Site dexamethasone (DECADRON) injection PRN, Starting on Sun12/15/19 at 0920, Until Sun12/15/19 at 1007, Anesthesia Intra-op $ Given 12/15/2019 9:20 AM SEO ANALYST 4 mg ePHEDrine injection PRN, Starting on Sun12/15/19 at 0910, Until Sun12/15/19 at 1007, Anesthesia Intra-op $ Given 12/15/2019 9:55 AM SEO ANALYST 5 mg $ Given 12/15/2019 9:10 AM SEO ANALYST 10 mg fentaNYL (PF) (SUBLIMAZE) injection PRN, Starting on Sun12/15/19 at 0912, Until Sun12/15/19 at 1007, Anesthesia Intra-op $ Given 12/15/2019 9:18 AM SEO ANALYST 25 mcg $ Given 12/15/2019 9:12 AM SEO ANALYST 25 mcg lactated ringers infusion CONTINUOUS PRN, Starting on Sun12/15/19 at 0901, Until Sun12/15/19 at 1007, Anesthesia Intra-op $ New Bag/Syringe 12/15/2019 9:18 AM SEO ANALYST $ New Bag/Syringe 12/15/2019 9:01 AM SEO ANALYST lidocaine (XYLOCAINE) 2 % injection PRN, Starting on Sun12/15/19 at 0908, Until Sun12/15/19 at 1007, Anesthesia Intra-op $ Given 12/15/2019 9:08 AM SEO ANALYST 80 mg midazolam (VERSED) injection PRN, Starting on Sun12/15/19 at 0901, Until Sun12/15/19 at 1007, Anesthesia Intra-op $ Given 12/15/2019 9:01 AM SEO ANALYST 2 m g Ondansetron HCl (ZOFRAN) injection PRN, Starting on Sun12/15/19 at 0914, Until Sun12/15/19 at 1007, Anesthesia Intra-op $ Given 12/15/2019 9:14 AM SEO ANALYST 4 m g Phenylephrine HCl (MICHELLE-SYNEPHRINE) injection Intravenous, PRN, Starting on Sun12/15/19 at 0909, Until Sun12/15/19 at 1007, Anesthesia Intra-op $ Given 12/15/2019 9:12 AM SEO ANALYST 50 mcg $ Given 12/15/2019 9:09 AM SEO ANALYST 50 mcg propofol (DIPRIVAN) injection PRN, Starting on Sun12/15/19 at 0908, Until Sun12/15/19 at 1007, Anesthesia Intra-op $ Given 12/15/2019 9:08 AM SEO ANALYST 80 mg propofol (DIPRIVAN) injection CONTINUOUS PRN, Starting on Sun12/15/19 at 0908, Until Sun12/15/19 at 1007, Anesthesia Intra-op $ New Bag/Syringe 12/15/2019 9:08 AM SEO ANALYST 50 mcg/kg/min 18.93 mL/hr documented in this encounter Care Teams Lumber Puller Relationship Specialty Start Date End Date Watson Perry MD [address] [place] [phone] PCP - General 12/03/19 documented as of this encounter
--- OUTSIDE RECORDS SUMMARY | 2024-11-23 15:03 | XMS_ITS | Encounter Summary ---
Author Organization [facility] Address [address] [place] [address] Care Team Providers Care Daub Color Mixer Name Role Phone Watson Perry MD Primary Care Provider [phone] Encounter Details Date Type Department Care Team (Late st Contact Info) Description 02/04/2021 Orders Only [facility] - COVID Vaccine [address] [place] [address] Javy Dale MD [address] [place] [address] Need for vaccination Social History Tobacco Use Types Packs/Day Years [...] as of this encounter Visit Diagnoses Diagnosis Need for vaccination Need for prophylactic vaccination and inoculation against unspecified single disease documented in this encounter Care Teams Daub Color Mixer Relationship Specialty Start Date End Date Watson Perry MD [address] [place] [phone] PCP - General 12/03/19 documented as of this encounter
--- OUTSIDE RECORDS SUMMARY | 2024-11-23 15:03 | XMS_ITS | Encounter Summary ---
Author Organization [facility] Address [address] [place] [address] Care Team Providers Care Luggage Maker Name Role Phone Watson Perry MD Primary Care Provider [phone] Reason for Visit * Auth/Cert Specialty Diagnoses / Procedures Referred By Contac t Referred To Contact Diagnoses Diagnosis unknown Diagnosis unknown [R69] Procedures HYSTEROSCOPY WITH DILATION & CURETTAGE Referral ID Status Reason Start Date Expiration Date Visits Re quested Visits Authorized [id number] 1 1 Encounter Details Date Type Department Care Team (Latest Contact Info) Description 05/31/2020 8:39 AM CDT - 05/31/2020 1:33 PM CDT Hospital Encounter [facility] [address] [place] [address] Kelley Sanford MD [address] [facility] [address] [place] [address] Surgery General Discharge Disposition: Home or Self [...] Sign Reading Time Taken Comments Blood Pressure 94/60 05/31/2020 12:35 PM CDT Pulse 76 05/31/2020 12:35 PM CDT Temperature 36.7 ??C (98 ??F) 05/31/2020 12:07 PM CDT Respiratory Rate 18 05/31/2020 12:35 PM CDT Oxygen Saturation 98% 05/31/2020 12:35 PM CDT Inhaled Oxygen Concentration - - [...] (one) tablet by mouth daily with food Gil[place]-3 Fatty Acids (FISH OIL PO) Take 1,000 [...] as of this encounter H&P Notes * Hanny Allen MD - 05/25/2020 2:44 PM CDT [...] with neg HPV Mammogram 2017 Colonoscopy 01/17/19 MARBLE SETTER: See above SOC: Social History Socioeconomic History [...] file Gets together: Not on file Attends amish service: Not on file Active member of [...] Tab by mouth daily with food. ??? Gil[place]-3 Fatty Acids (FISH OIL PO) Take 1,000 [...] results for input(s): ABORH in the last 60636 hours. No results for input(s): WBC, HGB, HCT, PLTCOUNT in the last 75885 hours. No results for input(s): SODIUM, POTASSIUM, CHLORIDE, CO2, BUN, CREATININE, GLUCOSE, CALCIUM in thelast 95575 hours. Assessment/Plan: 70 year old with: H/o [...] Sanford MD - 05/31/2020 9:59 AM CDT Business Risk Consultant Onc Attending Addendum I have personally seen and examined the patient and agree with the documentation by Dr. Allen. Planned procedure is hysteroscopy, dilation and curettage. Kelley Sanford MD Avionics Electronics Technician of Gynecologic Oncology Dept of Obstetrics, Gynecology, [...] dilation and curettage Surgeon: Kelley Sanford MD Rn Quality: Loraine Chao MD Type of anesthesia: MAC [...] dilation and curettage Surgeon: Kelley Sanford MD Rn Quality: Loraine Chao MD Type of anesthesia: MAC [...] entirety of the procedure. Kelley Sanford MD Avionics Electronics Technician of Gynecologic Oncology Dept of Obstetrics, Gynecology, and Women's Health 05/31/2020 2:18 PM documented in this encounter Plan of Treatment Not on file documented as of this encounter Procedures Procedure Name Priority Date/Time Associated Diagnosis Comments CARDIAC RHYTHM STRIP ORDER 06/03/2020 1:16 PM CDT PATHOLOGY TISSUE EXAM (STL) Routine 05/31/2020 11:05 AM CDT Diagnosis unknown NJ HYSTEROSCOPY,W/ENDO BX 05/31/2020 10:13 AM CDT Diagnosis unknown documented in this encounter Results * CARDIAC RHYTHM STRIP ORDER (06/03/2020 1:16 PM CDT) Narrative 06/03/2020 1:16 PM CDT Ordered by an unspecified provider. Scanned Document CARDIAC SERVICES ORD ERABLES * PATHOLOGY TISSUE EXAM (STL) (05/31/2020 11:05 AM CDT) Case Report Surgical Pathology Report ? Case: [id number] ? Authorizing Provider: ??Kelley Sanford MD ?Collected: ? 05/31/2020 11:05 AM ? Ordering Location: ? [facility] ? Received: ?05/31/2020 11:47 AM ? Pathologist: ? Mariaelena Ryan MD ? Specimen: ?Endometrium Curettings ? 06/01/2020 11:39 AM [facility] Final Diagnosis Uterus, endometrium, curettage - Superficial strips and fragments of inactive endometrium - Fragment of benign squamous epithelium 06/01/2020 11:39 AM [facility] Clinical History The patient is a 70-year-old woman. Operative procedure: endometrial curettage. 06/01/2020 11:39 AM [facility] Gross Description The specimen is received in a formalin-filled container, labeled with the patient's name Janeth Parker and endometrial curettage . It contains two Telfa specimens with rather scant church-hemorrhagic material, measuring in aggregate 1.2 x 1 x 0.3 cm. Wrapped and labeled A1. KS/taina 06/01/2020 11:39 AM [facility] Microscopic Description Microscopic examination substantiates the above diagnosis. 06/01/2020 11:39 AM [facility] Disclaimer All histochemical and/or immunohistochemical results are interpreted with controls that demonstrate appropriate staining reactions before reporting results. Note on use of immunocytochemistry reagents: This test was developed and its performance characteristic determined by [facility], Department of Laboratory Medicine. It has [...] be interpreted with caution. 06/01/2020 11:39 AM [facility] Embedded Images 06/01/2020 11:39 AM [facility] Pathology/Cytolo gy SPECIMEN FROM ENDOMETRIUM OBTAINED BY CURETTAGE / Unknown 05/31/2020 11:05 AM CDT 05/31/2020 11:47 AM CDT Comment:Pre-op diagnosis: Diagnosis unknown [R69] Kelley Sanford MD LAB - PATHOLOGY/CY TOLOGY ORDERABLES [facility] [address] [place] [address] documented in this encounter Visit Diagnoses Diagnosis [...] Given 05/31/2020 9:37 AM CDT 1,000 mg lactated ringers infusion at 20 [...] Copeland RN)1038 ($ New Bag/Syringe - Provider: Pollo Daniel APRN-PUBLIC ADMINISTRATION PROFESSOR)1120 (Anesthesia Volume Adjustment - Provider: Pollo Daniel APRN-PUBLIC ADMINISTRATION PROFESSOR)1139 ($ New Bag/Syringe - Provider: Connor Sainz [...] Post-op documented in this encounter Care Teams Luggage Maker Relationship Specialty Start Date End Date Watson Perry MD [address] [place] [phone] PCP - General 12/03/19 documented as of this encounter
--- OUTSIDE RECORDS SUMMARY | 2024-11-23 15:03 | XMS_ITS | Encounter Summary ---
Author Organization [facility] Address [address] [facility] [place] [address] Care Team Providers Care Support Technician Name Role Phone Watson Perry MD Primary Care Provider [phone] Reason for Visit * Reason Comments Follow-up Encounter Details Date Type Department Care Team (Late Contact Info) Description 04/28/2021 10:50 AM CDT Office Visit [facility] [address] [place] [address] Kelley Sanford MD [address] [phone] Postmenopausal bleeding (Primary Dx); Thickened endometrium; Left ovarian cyst Social History Tobacco Use Types Packs/Day Years [...] Sign Reading Time Taken Comments Blood Pressure 124/72 04/28/2021 10:37 AM CDT Pulse - - Temperature - - Respiratory Rate - - Oxygen Saturation - - Inhaled Oxygen Concentration - - Weight 60.3 kg (133 lb) 04/28/2021 10:37 AM CDT Height 165.1 cm (5' 5 ) 04/28/2021 10:37 AM CDT Body Mass Index 22.13 04/28/2021 10:37 AM CDT documented in this encounter Progress Notes * Kelley Sanford MD - 04/28/2021 12:36 PM CDT [facility] Established Patient Visit Date of Service: 04/28/2021 Patient Name: Janeth Parker Chief Complaint: bleeding History of Present Illness: Janeht Parker is a 71 year old who [...] a thickened endometrium of 13mm. Denies cramping. Otherwise no major changes to health. Medical, Surgical, and Family History reviewed--there have [...] denies bruising, nosebleeds, bleeding gums Exam: BP 124/72 Ht 5' 5 Wt 133 lb BMI 22.13 kg/m2 ECO Gen: NAD, CV: normal perfusion Resp: nonlabored breathing Abd: soft, nontender, hernia absent, no hepatosplenomegaly : NEFG, normal vagina with no lesions, cervix normal, uterus normal, mobile, no appreciable pelvic mass Lymph: no supraclavicular, axillary, or inguinal adenopathy Skin: no rashes or lesions Neuro: oriented x3, essential tremor noted Psychiatric: appropriate affect Assessment/Plan: 71 year old with postmenopausal bleeding Patient with return of postmenopausal bleeding. Discussed options of another dilation and curettageor definitive surgery. Patient opts for the latter. Planned procedure is total laparoscopic hysterectomy, bilateral salpingo- oophorectomy, possible staging, possible laparotomy. Discussed risks of bleeding, infection, damage to surrounding structures.Discussed same day discharge assuming doing well post op. Ok to schedule after her vacation May 26 I have spent 20 minutes with the patient of which >50% was spent in counseling. Kelley Sanford MD Glove Turner of Gynecologic Oncology Dept of Obstetrics, Gynecology, and Women's Health 04/28/2021 12:36 PM documented in this encounter Plan of Treatment Not on file documented as of this encounter Visit Diagnoses Diagnosis Postmenopausal bleeding- Primary Thickened endometrium Nonspecific (abnormal) findings on radiological and other examination of genitourinary organs Left ovarian cyst Other and unspecified ovarian cyst documented in this encounter Care Teams Support Technician Relationship Specialty Start Date End Date Watson Perry MD [address] [place] [phone] PCP - General 12/03/19 documented as of this encounter
--- OUTSIDE RECORDS SUMMARY | 2024-11-23 15:03 | XMS_ITS | Encounter Summary ---
Author Organization [facility] Address [address] [place] [address] Care Team Providers Care Die Stamper Name Role Phone Isrrael Sims MD Primary Care Provider [phone] Watson Perry MD Primary Care Provider [phone] Reason for Visit * Reason Onset Date Comments Future Appointment 12/02/2019 PMB, Jose thi ckening Encounter Details Date Type Department Care Team (Late st Contact Info) Description 12/02/2019 Telephone [facility] [address] [place], [place] [id number] Kelley Sanford MD [address] [facility] [address] [place], [place] [phone] Future Appointment (PMB, Jose thickening) Social History Tobacco Use Types Packs/Day Years [...] * Telephone Encounter - Sonya Valadez - 12/03/2019 2:32 PM CST Pt returned call, scheduled appt on 12/11/19 at 11:10 at [facility] with Dr Sanfrod. Pt states she had a ct done at [facility] 10/2019. I will attempt to get these records. ECT/PRODUCTION MANAGER IMAGING * Telephone Encounter - Sonya Valadez - 12/02/2019 3:56 PM CST Referral rec'd. Dx: PMB, Endo thickening Called pt, lm on vm, asked pt to cb at [phone] and ask for Sonya. per Dr Bashir - Schedule CT A/P w/ contrast prior to appt ECT/PRODUCTION MANAGER IMAGING documented in this encounter Plan of Treatment Not on file documented as of this encounter Visit Diagnoses Not on filedocumented in this encounter Care Teams Die Stamper Relationship Specialty Start Date End Date Isrrael Sims MD [address] [place] [address] PCP - General 04/18/19 12/02/19 Watson Perry MD [address] [place] [phone] PCP - General 12/03/19 documented as of this encounter
--- OUTSIDE RECORDS SUMMARY | 2024-11-23 15:03 | XMS_ITS | Encounter Summary ---
Author Organization [facility] Address [address] [place] [address] Care Team Providers Care Cellar Supervisor Name Role Phone Watson Perry MD Primary Care Provider [phone] Reason for Visit * Reason Onset Date Comments Follow-up Report 03/23/2021 Encounter Details Date Type Department Care Team (Late st Contact Info) Description 03/23/2021 Telephone [facility] [address] [place] [address] Kelley Sanford MD [address] [phone] Follow-up Report Social History Tobacco Use Types Packs/Day Years [...] encounter Miscellaneous Notes * Telephone Encounter - Mariel Figueroa - 03/23/2021 10:03 AM CDT [facility] [place], requesting reports from the patients last office visits to be faxed Call back# [phone] documented in this encounter Plan of Treatment Not on file documented as of this encounter Visit Diagnoses Not on filedocumented in this encounter Care Teams Cellar Supervisor Relationship Specialty Start Date End Date Watson Perry MD [address] [place] [phone] PCP - General 12/03/19 documented as of this encounter
--- OUTSIDE RECORDS SUMMARY | 2024-11-23 15:03 | XMS_ITS | Encounter Summary ---
Author Organization [facility] Address [address] [facility] [place] [address] Care Team Providers Care Cad Developer Name Role Phone Watson Perry MD Primary Care Provider [phone] Reason for Visit * Reason Onset Date Comments Record Request 03/23/2021 Encounter Details Date Type Department Care Team (Late st Contact Info) Description 03/23/2021 Telephone [facility] [address] [place] [address] Kelley Sanford MD [address] [phone] Record Request Social History Tobacco Use Types Packs/Day Years [...] * Telephone Encounter - Janiya Jones - 03/24/2021 7:58 AM CDT Faxed records again. * Telephone Encounter - Rashida Trejo - 03/23/2021 4:34 PM CDT Linda followed up to get the records from the Patients two D/C procedures. Pt has appointment with them tomorrow 03/24/21 at 8:45 AM Callback:[phone] ext [phone] documented in this encounter Plan of Treatment Not on file documented as of this encounter Visit Diagnoses Not on filedocumented in this encounter Care Teams Cad Developer Relationship Specialty Start Date End Date Watson Perry MD [address] [place] [phone] PCP - General 12/03/19 documented as of this encounter
--- OUTSIDE RECORDS SUMMARY | 2024-11-23 15:05 | XMS_ITS | Clinical Summary ---
Author Organization [facility] Address [address] [facility] [place] [address] Phone Care Team Providers Care Bleach Maker Name Role Phone Watson Perry MD Primary Care Provider Adeel Covarrubias MD Unavailable [phone] Allergies Active Allergy Reactions Criticality Noted Date Comments Ibuprofen Rash Medium 02/01/2018 Medications citalopram (CELEXA) 20 MG Tablet Take 20 mg by mouth daily. Active esomeprazole (NEXIUM) 20 MG CAPSULE DELAYED RELEASE Take 20 mg by mouth every morning (before breakfast). Active rosuvastatin (CRESTOR) 10 MG Tablet Take 10 mg by mouth nightly. 02/27/20 18 Active [place]-3 Fatty Acids (FISH OIL PO) Take 2 Capsules by mouth daily. Active Multiple Vitamin (MULTIVITAMIN PO) Take 1 % by mouth daily. Active clonazePAM (KlonoPIN) 1 MG Tablet Take 1 mg by mouth nightly. Active propranolol (INDERAL LA) 60 MG CAPSULE SR 24 HRIndications: Essential tremor Take 1 Capsule by mouth 2 times daily. 90 Capsule 1 03/07/20 Active pramipexole (MIRAPEX) 1.5 MG Tablet Take 1.5 mg by mouth 2 times daily. 04/21/20 Active Blood Glucose Monitoring Suppl Device Diagnosis: Diabetes type 2 Blood testing frequency: 3 times a day 1 Each 06/04/20 Active Additional Information Patient not taking.Reported on 01/22/2024 Lancets Misc Use as directed 100 Lancet 1 06/04/20 Active Glucose Blood Strip Diagnosis: Diabetes type 2 Blood testing frequency: 3 times a day 100 Strip 1 06/04/20 Active Fluticasone-Um eclidin-Vilant (TRELEGY ELLIPTA IN) take 1 Puff by inhalation daily. Active furosemide (LASIX) 20 MG Tablet Take 20 mg by mouth daily. Active guaiFENesin (MUCINEX PO) Take 1 Tablet by mouth Daily as needed for Other (cough and congestion). Active Calcium Citrate-Vitami n D (Calcium Citrate + D) 250-5 MG-MCG Tablet Take 1 Tablet by mouth 2 times daily. Active TRAMADOL HCL PO Take 50 mg by mouth 4 times daily. Take one 50 mg tab four times daily by mouth for pain. 03/20/20 Active aspirin EC 81 MG Tablet Delayed Response Take 81 mg by mouth daily. Active primidone (MYSOLINE) 250 MG TabletIndicati ons:Essential tremor Take 0.5 Tablets by mouth daily. 45 Tablet 1 09/02/20 24 Active carbidopa-levo dopa (SINEMET) 25-100 MG Tablet TAKE 1 TABLET BY MOUTH THREE TIMES DAILY 1/2 HOUR BEFORE EATING 90 Tablet 10/27/20 24 Active carbidopa-levo dopa (SINEMET) 25-100 MG Tablet Take 1 Tablet by mouth 3 times daily. 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) 03/20/2016 Overview (05/28/2022): Note: Unchanged Resolved Problems Problem Noted Date Diagnosed Date Resolved Date Acute respiratory failure with hypoxia 05/29/2022 06/04/2022 COPD with acute exacerbation 05/29/2022 06/04/2022 Hyponatremia 05/29/2022 06/04/2022 COVID-19 05/28/2022 06/04/2022 Encounters Date Type Department Care Team Description 10/26/2024 Refill [facility] [address] [place] [address] Adeel Covarrubias MD Medication Refill 09/02/2024 2:15 PM CDT Office Visit [facility] [address] [place] [address] Adeel Covarrubias MD Parkinsonian tremor (HCC) (Primary Dx); Essential tremor Discharge Disposition: Discharged to home or Selfcare 09/01/2024 Travel from Last 3 Months Family History Medical History Relation Name Comments Leukemia/Lymphoma Brother Parkinsonism Father Diabetes Maternal Grandmother Skin Cancer Mother Relation Name Status Comments Brother Father Maternal Grandmother Mother Social History Tobacco Use Types Packs/Day Years Used Date Smoking Tobacco: Former Cigarettes 0.3 44.5 0 11/19/1977 - 05/19/2022 Smokeless Tobacco: Never Tobacco Cessation:Counseling Given: Not Answered Alcohol Use Standard Drinks/Week Comments No 0 (1 standard drink = 0.6 oz pur e alcohol) Sexually Active Control Partners Comments Yes Comments No Sex and Gender Information Value Date Recorded Sex Assigned at Not on file 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 Sex Female 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 STENCILER Gender Identity Not on file Sexual Orientation Not on file Last Filed Vital Signs Vital Sign Reading Time Taken Comments Blood Pressure 122/84 09/02/2024 2:31 PM CDT Pulse 67 09/02/2024 2:31 PM CDT Temperature 36.5 ??C (97.7 ??F) 09/02/2024 2:31 PM CD T Respiratory Rate 16 09/02/2024 2:31 PM CDT Oxygen Saturation 95% 09/02/2024 2:31 PM CDT Inhaled Oxygen Concentration - - Weight 79.4 kg (175 lb) 09/02/2024 2:31 PM CDT Height 165.1 cm (5' 5 ) 09/02/2024 2:31 PM CDT Body Mass Index 29.12 09/02/2024 2:31 PM CDT Plan of Treatment Upcoming Encounters Date Type Department Care Team (Late st Contact Info) Description 12/18/2024 2:15 PM DRUM STENCILER Office Visit [facility] [address] [place] [address] Adeel Covarrubias MD [address] [place] [address] Health Maintenance Due Date Last Done Comments DEXA Bone Density 1952 Hepatitis C Virus (HCV) Screening 1950 Colonoscopy 1997 Colorectal Cancer Screening 1997 Cologuard 2002 Immunochemical Fecal Occult Blood 2002 Mammogram 2002 Respiratory Syncytial Virus (RSV) Immunization (Adult) (1 - Risk 60-74 years 1-dose series) 2012 Influenza Immunization (#1) 07/20/202407/20, 09/15/2022, 08/08/2021, Additional history exists SARS-COV-2 Immunization ( season) 2024 09/16/2021, 08/17/2021, 01/28/2021, Additional history exists DTaP/Tdap/Td Immunization Discontinued 03/17/2019 TdaP Immunization Completed 03/17/2019 Pneumococcal Immunization (50+ years) Completed 10/27/2019, 09/16/2018 Pneumococcal Immunization Combined Discontinued 10/27/2019, 09/16/2018 Zoster Immunization Completed 11/07/2019, 09/01/2019, 09/20/2017 Hepatitis B Immunization Aged Out No longer eligible based on patient's age to complete this topic Meningococcal Immunization (ACWY) Aged Out No longer eligible based on patient's age to complete this topic Rotavirus Immunization Aged Out No lo nger eligible based on patient's age to complete this topic Insurance MEDICARE C AETNA Advance Directives * Full Code (Latest Code Status on File) Date Activated Date Inactivated Comments 03/20/2024 11:06 AM * Full Code Date Activated Date Inactivated Comments 05/28/2022 7:29 PM 06/04/2022 1:39 PM CPR-Full Elliot atment: FULL ARREST: Attempt Resuscitation/CPR wit intubation and mechanical ventilation. PRE-ARREST: Use entire range of life support measures to stabilize the patient. Care Teams Bleach Maker Relationship Specialty Start Date End Date Watson Perry MD [address] [place] [phone] PCP - General Family Medicine 01/25/18 Adeel Covarrubias MD [address] [place] [address] Consulting Physician Neurology 03/07/22
--- OUTSIDE RECORDS SUMMARY | 2024-11-23 15:05 | XMS_ITS | Encounter Summary ---
Author Organization [facility] Care Team Providers Care Welding Machine Tender Name Role Phone Watson Perry MD Primary Care Provider [phone] Adeel Covarrubias MD Unavailable [phone] Encounter Details Date Type Department Care Team (Latest Contact Info) Description 09/01/2024 Travel Social History Tobacco Use Types Packs/Day Years Used Date Smoking Tobacco: Former Cigarettes 0.3 44.5 0 11/19/1977 - 05/19/2022 Smokeless Tobacco: Never Alcohol Use Standard Drinks/Week Comments No 0 (1 standard drink = 0.6 oz pur e alcohol) Sexually Active Control Partners Comments Yes Comments No Sex and Gender Information Value Date Recorded Sex Assigned at Not on file Legal Sex Female 9:54 AM TRACK WALKER Gender Identity Not on file Sexual Orientation Not on file documented as of this encounter Plan of Treatment Upcoming Encounters Date Type Department Care Team (Late st Contact Info) Description 12/18/2024 2:15 PM TRACK WALKER Office Visit [facility] - Neurology [facility] [address] [place] [address] Adeel Covarrubias MD [address] [place] [address] documented as of this encounter Visit Diagnoses Not on filedocumented in this encounter Care Teams Welding Machine Tender Relationship Specialty Start Date End Date Watson Perry MD [address] [place] [phone] PCP - General Family Medicine 01/25/18 Adeel Covarrubias MD [address] [place] [address] Consulting Physician Neurology 03/07/22 documented as of this encounter
--- OUTSIDE RECORDS SUMMARY | 2024-11-23 15:05 | XMS_ITS | Encounter Summary ---
Author Organization [facility] Address [address] [place] [address] Phone Care Team Providers Care Cemetery Keeper Name Role Phone Watson Perry MD Primary Care Provider [phone] Adeel Covarrubias MD Unavailable [phone] Reason for Visit * Reason Comments Medication Refill Encounter Details Date Type Department Care Team (Late st Contact Info) Description 10/26/[address] [facility] [address] [place] [address] Adeel Covarrubias MD [address] [place] [address] Medication Refill Social History Tobacco Use Types Packs/Day Years [...] on file Legal Sex Female 9:54 AM HAND TENNIS BALL COVERER Gender Identity Not on file Sexual Orientation Not on file documented as of this encounter Miscellaneous Notes * Telephone Encounter - Fartun Bonilla RN - 10/27/2024 9:22 AM CST Medication(s) refilled and signed per [facility] Chronic Medication Refill Standing Order for Pediatricand Adult Patients. Requested Prescriptions Pending Prescriptions Disp Refills carbidopa-levodopa (SINEMET) 25-100 MG Tablet [Pharmacy Med Name: Carbidopa- Levodopa 25-100 MG OralTablet] 90 Tablet 0 Sig: TAKE 1 TABLET BY MOUTH THREE TIMES DAILY 1/2 HOUR BEFORE EATING Antiparkinson Dopaminergics and COMT Protocol Passed - 10/27/2024 9:22 AM Passed - Visit with relevant provider in the past 9 months or upcoming 90 days Recent Visits Date Type Provider Dept 09/02/24 Office Visit Adeel Covarrubias MD [facility] Neurology [place] Showing recent visits within past 270 days and meeting all other requirements Future Appointments Date Type Provider Dept 12/18/24 Appointment Adeel Covarrubias MD [facility] Neurology [place] Showing future appointments within next 90 days and meeting all other requirements Passed - Blood pressure on record in past 12 months Clinician-entered: BP Readings from Last 3 Encounters: 09/02/24 122/84 03/28/24 106/58 03/25/24 104/64 Patient-entered: No data recorded TENNIS BALL COVERER documented in this encounter Plan of Treatment Upcoming Encounters Date Type Department Care Team (Late st Contact Info) Description 12/18/2024 2:15 PM HAND TENNIS BALL COVERER Office Visit [facility] - [facility] [address] [place] [address] Adeel Covarrubias MD [address] [place] [address] documented as of this encounter Visit Diagnoses Not on filedocumented in this encounter Care Teams Cemetery Keeper Relationship Specialty Start Date End Date Watson Perry MD [address] [place] [phone] PCP - General Family Medicine 01/25/18 Adeel Covarrubias MD [address] [place] [address] Consulting Physician Neurology 03/07/22 documented as of this encounter
--- OUTSIDE RECORDS SUMMARY | 2024-11-23 15:05 | XMS_ITS | Encounter Summary ---
Author Organization [facility] Address [address] [place] [address] Phone Care Team Providers Care Chemical Sales Representative Name Role Phone Watson Perry MD Primary Care Provider [phone] Adeel Covarrubias MD Unavailable [phone] Reason for Visit * Auth/Cert (Routine) Specialty Diagnoses / Procedures Referred By Contac t Referred To Contact Referral ID Status Reason Start Date Expiration Date Visits Re quested Visits Authorized [id number] 1 1 Encounter Details Date Type Department Care Team (Late Contact Info) Description 04/01/2024 Home Care Visit [address] [id number] Mariaelena Virk, OT OT - DISCHARGE SUMMARY Social History Tobacco Use Types Packs/Day Years [...] on file Legal Sex Female 9:54 AM ONCOLOGY REGISTRAR Gender Identity Not on file Sexual Orientation Not on file documented as of this encounter Plan of Treatment Upcoming Encounters Date Type Department Care Team (Late Contact Info) Description 12/18/2024 2:15 PM ONCOLOGY REGISTRAR [facility] [address] [place] [address] Adeel Covarrubias MD [address] [place] [address] documented as of this encounter Visit Diagnoses Not on filedocumented in this encounter Care Teams Chemical Sales Representative Relationship Specialty Start Date End Date Watson Perry MD [address] [place] [phone] PCP - General Family Medicine 01/25/18 Adeel Covarrubias MD [address] [facility] [place] [address] Consulting Physician Neurology 03/07/22 documented as of this encounter
--- OUTSIDE RECORDS SUMMARY | 2024-11-23 15:05 | XMS_ITS | Encounter Summary ---
Author Organization [facility] Address [address] [address] Phone Care Team Providers Care Regulator Pin Inserter Name Role Phone Watson Perry MD Primary Care Provider [phone] Adeel Covarrubias MD Unavailable [phone] Reason for Visit * Reason Comments Medication Refill Encounter Details Date Type Department Care Team (Late st Contact Info) Description 06/11/2024 Refill [facility] [address] [place] [address] Adeel Covarrubias MD [address] [place] [address] Medication Refill Social History Tobacco [...] on file Legal Sex Female 9:54 AM ASSOCIATE MUSIC PROFESSOR Gender Identity Not on file Sexual Orientation Not on file documented as of this encounter Miscellaneous Notes * Telephone Encounter - Fartun Bonilla RN - 06/11/2024 1:01 PM CDT Medication failed the protocol, provider to review and approve the medication order if appropriate. Requested Prescriptions Pending Prescriptions Disp Refills primidone (MYSOLINE) 250 MG Tablet [Pharmacy Med Name: Primidone 250 MG Oral Tablet] 90 Tablet 0 Sig: Take 1 tablet by mouth once daily Not Delegated - Anticonvulsants Excluding Benzodiazepines Protocol Failed - 06/11/2024 12:24 PM Failed - This refill cannot be delegated Passed - Visit with relevant provider in past 12 months or upcoming 90 days Recent Visits Date Type Provider Dept 01/22/24 Office Visit Adeel Covarrubias MD [facility] Showing recent visits within past 365 days and meeting all other requirements Future Appointments Date Type Provider Dept 07/24/24 Appointment Ade[address] [facility] future appointments within next 90 days and meeting all other requirements documented in this encounter Plan of Treatment Upcoming Encounters Date Type Department Care Team (Late st Contact Info) Description 12/18/2024 2:15 PM ASSOCIATE MUSIC PROFESSOR Office Visit [facility] - Neu[facility] [address] [place] [address] Adeel Covarrubias MD [address] [place] [address] documented as of this encounter Visit Diagnoses Diagnosis Essential tremor Essential and other specified forms of tremor documented in this encounter Care Teams Regulator Pin Inserter Relationship Specialty Start Date End Date Watson Perry MD [address] [place] [address] PCP - General Family Medicine 01/25/18 Adeel Covarrubias MD [address] [place] [address] Consulting Physician Neurology 03/07/22 documented as of this encounter
--- OUTSIDE RECORDS SUMMARY | 2024-11-23 15:05 | XMS_ITS | Encounter Summary ---
Author Organization [facility] Care Team Providers Care Performance Tester Name Role Phone Watson Perry MD Primary Care Provider [phone] Adeel Covarrubias MD Unavailable [phone] Encounter Details Date Type Department Care Team (Latest Contact Info) Description 03/28/2024 Travel Social History Tobacco Use Types Packs/Day [...] on file Legal Sex Female 9:54 AM CASTING MACHINE OPERATOR Gender Identity Not on file Sexual Orientation Not on file documented as of this encounter Plan of Treatment Upcoming Encounters Date Type Department Care Team (Late st Contact Info) Description 12/18/2024 2:15 PM CASTING MACHINE OPERATOR Office Visit [facility] - Neurology [facility] [address] [place] [address] Adeel Covarrubias MD [address] [place] [address] documented as of this encounter Visit Diagnoses Not on filedocumented in this encounter Care Teams Performance Tester Relationship Specialty Start Date End Date Watson Perry MD [address] [place] [phone] PCP - General Family Medicine 01/25/18 Adeel Covarrubias MD [address] [place] [address] Consulting Physician Neurology 03/07/22 documented as of this encounter
--- OUTSIDE RECORDS SUMMARY | 2024-11-23 15:05 | XMS_ITS | Encounter Summary ---
Author Organization [facility] Address [address] [place] [address] Phone Care Team Providers Care Cognos Architect Name Role Phone Watson Coleman MD Primary Care Provider [phone] Nicholas Wise MD Unavailable [phone] Reason for Visit * Reason Comments Tremors Encounter Details Date Type Department Care Team (Late st Contact Info) Description 09/02/2024 2:15 PM CDT Office Visit [facility] - Neurology [facility] [address] [place] [address] Nicholas Wise MD [address] [place] [address] Parkinsonian tremor (HCC) (Primary Dx); Essential tremor Discharge Disposition: Discharged to home or Selfcare Social History Tobacco Use Types Packs/Day Years [...] on file 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 Diagnoses and all orders for this visit: Parkinsonian tremor (HCC) - noted presence of parkinsonian symptoms - discussed the option of a skin biopsy to evaluate for alpha synuclein deposition however patient - patient however does not want to consider that at this time - will start a trial of carbidopa/levodopa to evaluate her response Essential tremor - primidone (MYSOLINE) 250 MG Tablet; Take 0.5 Tablets by mouth daily. Other orders - carbidopa-levodopa (SINEMET) 25-100 MG Tablet; Take 1 Tablet by mouth 3 times daily. 1/2 hour before eating Reason for Consultation: tremor HPI: Janeth is a 74-year-old who presents for evaluation of essential tremor. Since her last visit however patient's seems to be having more parkinsonian symptoms. She is shuffling a little bit more and her handwriting is now getting smaller 2. Her speech has also started to get softer. Previous History 09/15/24: Janeth presents in follow-up for evaluation of essential tremor. She continues to have significant issues related to her tremors. Since her last visit she has also had a fall and hip fracture and hipreplacement and now was having knee problems. She is being evaluated by her orthopedic doctor. Previous History: Janeth presents in follow-up for evaluation of essential tremor. She is currently on propranolol and primidone with only modest benefit. She still has significant disability with eating writing and drinking. She does have some family members who have had DBS treatment for Parkinson's and may consider that treatment option. Previous history: Janeth presents in follow-up for evaluation of essential tremor. She notes that she intermittently still has trouble with activities of daily living. If she is tired frustrated or anxious her tremorsmay be a little worse. She has been having some mild balance problems. Patient's RLS is largely been stable. Prior History: Janeth is a 68-year-old female who presents for evaluation of tremor for at least the past 10 years. She notes that in the past year her symptoms have worsened. She notes that she has trouble drinking water from a cup, writing her name and so forth. She notes that symptoms are worse with stress. She notes both arms are affected equally. She notes her tremors are worse with action that with rest. She does not have a family history of essential tremor but her father did have Parkinson's disease. She notes that her balance is not what it was but no note of shuffling or changes in arm swing. No stone is some movement noted. She also has a history of restless legs and is currently treated on Klonopin and Mirapex. Past Medical History Positives Diagnosis Date COPD (chronic obstructive pulmonary disease) (HCC) GERD (gastroesophageal reflux disease) Hyperlipidemia Post-menopausal bleeding Tremors of nervous system Past Surgical History: Procedure Laterality Date DILATION AND CURETTAGE HIP FRACTURE SURGERY Left HYSTERECTOMY ORAL SURGERY PROCEDURE bone removal TOE SURGERY bunion Family History Problem Relation Age of Onset Skin Cancer Mother Parkinsonism Father Leukemia/Lymphoma Brother Diabetes Maternal Grandmother Social History Tobacco Use Smoking status: Former Current packs/day: 0.00 Average packs/day: 0.3 packs/day for 44.5 years (11.1 ttl pk-yrs) Types: Cigarettes Start date: 11/19/1977 Quit date: 05/19/2022 Years since quittin.3 Smokeless tobacco: Never Substance Use Topics Alcohol use: No Allergies Allergen Reactions Ibuprofen Rash Current Outpatient Medications: aspirin EC 81 MG Tablet Delayed Response, Take 81 mg by mouth daily., Disp: , Rfl: Blood Glucose Monitoring Suppl Device, Diagnosis: Diabetes type 2 Blood testing frequency: 3 times a day (Patient not taking: Reported on 01/22/2024), Disp: 1 Each, Rfl: 0 Calcium Citrate-Vitamin D (Calcium Citrate + D) 250-5 MG-MCG Tablet, Take 1 Tablet by mouth 2 timesdaily., Disp: , Rfl: carbidopa-levodopa (SINEMET) 25-100 MG Tablet, Take 1 Tablet by mouth 3 times daily. 1/2 hour before eating, Disp: 90 Tablet, Rfl: 1 citalopram (CELEXA) 20 MG Tablet, Take 20 mg by mouth daily., Disp: , Rfl: clonazePAM (KlonoPIN) 1 MG Tablet, Take 1 mg by mouth nightly., Disp: , Rfl: esomeprazole (NEXIUM) 20 MG CAPSULE DELAYED RELEASE, Take 20 mg by mouth every morning (before breakfast)., Disp: , Rfl: Jtzylsmukuf-Cxpqefwjp-Pebden (TRELEGY ELLIPTA IN), take 1 Puff by inhalation daily., Disp: , Rfl: furosemide (LASIX) 20 MG Tablet, Take 20 mg by mouth daily., Disp: , Rfl: Glucose Blood Strip, Diagnosis: Diabetes type 2 Blood testing frequency: 3 times a day, Disp: 100 Strip, Rfl: 1 guaiFENesin (MUCINEX PO), Take 1 Tablet by mouth Daily as needed for Other (cough and congestion).,Disp: , Rfl: Lancets Misc, Use as directed, Disp: 100 Lancet, Rfl: 1 Multiple Vitamin (MULTIVITAMIN PO), Take 1 % by mouth daily., Disp: , Rfl: [place]-3 Fatty Acids (FISH OIL PO), Take 2 Capsules by mouth daily., Disp: , Rfl: pramipexole (MIRAPEX) 1.5 MG Tablet, Take 1.5 mg by mouth 2 times daily., Disp: , Rfl: primidone (MYSOLINE) 250 MG Tablet, Take 0.5 Tablets by mouth daily., Disp: 45 Tablet, Rfl: 1 propranolol (INDERAL LA) 60 MG CAPSULE SR 24 HR, Take 1 Capsule by mouth 2 times daily., Disp: 90 Capsule, Rfl: 1 rosuvastatin (CRESTOR) 10 MG Tablet, Take 10 mg by mouth nightly., Disp: , Rfl: TRAMADOL HCL PO, Take 50 mg by mouth 4 times daily. Take one 50 mg tab four times daily by mouth for pain., Disp: , Rfl: Review of Systems: A 14 point Review of Systems is obtained, and is negative other than that mentioned in the History of Present Illness. Objective: VITALS: Blood pressure 122/84, pulse 67, temperature 97.7 ??F (36.5 ??C), resp. rate 16, height 5' 5 (1.651 m), weight 175 lb (79.4 kg), SpO2 95%. Weight: Wt Readings from Last 1 Encounters: 09/02/24 175 lb (79.4 kg) Body mass index is 29.12 kg/m??. EXAM: General appearance: alert, no distress, cooperative, appears stated age Head: Normocephalic, without obvious abnormality, atraumatic Heart: regular rate and rhythm, S1, S2 normal, no murmur, click, rub or gallop Extremities: extremities normal, atraumatic, no cyanosis or edema Neurologic: Mental: Fully alert and oriented to time, place, person, situation. There is no problem with concentration and attention. Verbal recall-normal. Visuospatial skills- normal. Fund of knowledge is good. Memory is good for recent and remote events. On cranial nerve exam, CN II: visual white are full to confrontation. Fundi are clear without hemorrhage or exudate, discs are sharp.CN III: Pupils are equal, round and reactive bilaterally; CN III,IV, extraocular movements are full with normal saccades and normal pursuits. There are no squarewave jerks. CN VIII: Hearing is intact bilaterally. CN V: Facial sensation is intact; CN VII: face is symmetric. CN IX: Palate elevates symmetrically. CN XII: Tongue is midline. CN XI: Shrug is 5/5. A motor examination was performed Muscles Tested Right Left Deltoid 5/5 5/5 Biceps 5/5 5/5 Triceps 5/5 5/5 Wrist Flexors 5/5 5/5 Wrist Extensors 5/5 5/5 Waste Machine Offbearer 5/5 5/5 Hip Flexors 5/5 5/5 Quadriceps 5/5 5/5 Hamstrings 5/5 5/5 Dorsiflexion 5/5 5/5 EHL 5/5 5/5 Sensory exam is notable for being intact to light touch. Vibration and pin prick are intact. Romberg is negative. Coordination: finger to nose normal bilaterally. DTRs are 2+ bilateral upper and lower extremities. Plantars are downgoing bilaterally Gait is normal. Normal tandem gait, normal heel and toe walking. Normal armswing and turns. By: NICHOLAS WISE MD, 09/15/2024, 11:49 AM CDT Primary Care Physician: WATSON COLEMAN MD documented in this encounter Plan of Treatment Upcoming Encounters Date Type Department Care Team (Late st Contact Info) Description 12/18/2024 2:15 PM ASSISTED LIVING CARE MANAGER [facility] [address] [place] [address] Nicholas Wise MD [address] [place] [id number] documented as of this encounter Visit Diagnoses Diagnosis Parkinsonian tremor (HCC)- Primary Paralysis agitans Essential tremor Essential and other specified forms of tremor documented in this encounter Care Teams Cognos Architect Relationship Specialty Start Date End Date Watson Coleman MD [address] [place] [id number] PCP - General Family Medicine 01/25/18 Nicholas Wise MD [address] [place] [phone] Consulting Physician Neurology 03/07/22 documented as of this encounter
--- OUTSIDE RECORDS SUMMARY | 2024-11-23 15:06 | XMS_ITS | Encounter Summary ---
Author Organization [facility] Address [address] 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 Requested Prescriptions Pending Prescriptions Disp Refills primidone (MYSOLINE) 250 MG Tablet [Pharmacy Med Name: Primidone 250 MG Oral Tablet] 90 Tablet 0 Sig: Take 1 tablet by mouth once daily Not Delegated - Anticonvulsants Excluding Benzodiazepines Protocol Failed - 12/20/2023 9:51 PM Failed - This refill cannot be delegated Passed - Visit with relevant provider in past 12 months or upcoming 90 days Recent Visits Date Type Provider Dept 03/06/23 Office Visit Adeel Covarrubias MD [facility] Neurology [facility] Showing recent visits within past 365 days and meeting all other requirements Future Appointments Date Type Provider Dept 01/22/24 Appointment Adeel Covarrubias MD [facility] Neurology [facility] Santo Showing future appointments within next 90 days and meeting all other requirements OVISUAL EQUIPMENT OPERATOR documented in this encounter Plan of Treatment Upcoming Encounters Date Type Department Care Team (Late st Contact Info) Description 12/18/2024 2:15 PM AUDIOVISUAL EQUIPMENT OPERATOR Office Visit [facility]rology [facility] [address] [place] [address] Adeel Covarrubias MD [address] [place] [address] documented as of this encounter Visit Diagnoses Diagnosis Essential tremor Essential and other specified forms of tremor documented in this encounter Care Teams C Architect Relationship Specialty Start Date End Date Watson Perry MD [address] [place] [id number] PCP - General Family Medicine 01/25/18 Adeel Covarrubias MD [address] [place] [address] Consulting Physician Neurology 03/07/22 documented as of this encounter
--- OUTSIDE RECORDS SUMMARY | 2024-11-23 15:06 | XMS_ITS | Encounter Summary ---
Author Organization [facility] Address [address] [place] [address] Phone Care Team Providers Care Film Crew Member Name Role Phone Watson Perry MD Primary Care Provider [phone] Adeel Covarrubias MD Unavailable [phone] Reason for Visit * Auth/Cert (Routine) Specialty Diagnoses / Procedures Referred By Contac t Referred To Contact Referral ID Status Reason Start Date Expiration Date Visits Re quested Visits Authorized [id number] 1 1 Encounter Details Date Type Department Care Team (Latest Contact Info) Description 03/12/2024 12:00 PM CDT Home Care Visit [facility] [address] [place], [place] [id number] Jaylene Biggs RN SN - DISCIPLINE DISCHARGE Social History Tobacco Use Types Packs/Day Years [...] on file 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 Gender Identity Not on file Sexual Orientation Not on file documented as of this encounter Last Filed Vital Signs Vital Sign Reading Time Taken Comments Blood Pressure 108/58 03/12/2024 2:36 PM CDT Pulse 68 03/12/2024 2:36 PM CDT Temperature 36.2 ??C (97.2 ??F) 03/12/2024 2:36 PM CD T Respiratory Rate 20 03/12/2024 2:36 PM CDT Oxygen Saturation 93% 03/12/2024 2:36 PM CDT Inhaled Oxygen Concentration - - Weight - - Height - - Body Mass Index - - documented in this encounter Plan of Treatment Upcoming Encounters Date Type Department Care Team (Late st Contact Info) Description 12/18/2024 2:15 PM REGIONAL MARKETING MANAGER Office Visit [facility] - Neurology - [place] [address] [place] [address] Adeel Covarrubias MD [address] [place] [address] documented as of this encounter Visit Diagnoses Not on filedocumented in this encounter Home Health Visit - Care Plan Visit Details Visit Type -SN - DISCIPLINE DISCHARGE Discipline -Intermediate Problems Problem Description Start Date Status Goals Interve ntions FALL PREVENTION (O) Disciplines: SN, PT, OT, TUBE DISPATCHER, HCA, DEMONSTRATOR SEWING TECHNIQUES, RT 03/05/2024 Active 1 goal linked to scheduled/documen zen intervention 1 goal intervention scheduled/document ed in this visit ALL VITAL SIGN PARAMETERS Disciplines: All Home Care 03/05/2024 Active - 1 problem intervention scheduled/document ed in this visit PAIN-MANAGEMENT /EDUCATION Disciplines: Skilled Clinicians 03/05/2024 Active 1 goal linked to scheduled/documen zen intervention 1 goal intervention scheduled/document ed in this visit SN DISCHARGE Disciplines: Intermediate SN Discharge 03/05/2024 Active - 2 problem interventions scheduled/document ed in this visit SN GENERAL ORDERS Disciplines: Intermediate SN General Orders 03/05/2024 Active 1 goal linked to scheduled/documen zen intervention 2 goal interventions scheduled/document ed in this visit SAFETY/PREVENTI ON EDUCATION Disciplines: Intermediate Safety/Preventio n Education 03/05/2024 Active - 1 problem intervention scheduled/document ed in this visit Goals Goal Associated Problem Outcome Goal Met? Visit Notes Fall Prevention Description: Shared goal applicable to all disciplines with a visit frequency order. Patient/ Caregiver will verbalize understanding of identified fall risk based on MAHC-10 Fall Risk assessment and methods to prevent falls. Target date: by 03/15/24(date) FALL PREVENTION (O) No Pain Management/Education Description: Shared goal applicable to all disciplines with visit frequency order. Patient's pain level will remain at an acceptable level of 0 or lower with current pain medications/interventions. Target date: within 4 weeks PAIN-MANAGEMENT/EDUCATION No SN General Description: After assessing the patient and discussing the patient's goals the following were identified: 1. Patient will demonstrate effective self-care management including understanding of ordered medication regimen, signs and symptoms to report, and recommended follow up with physician. Target date: within 1 weeks 2. Patient will verbalize understanding of medication regimen including name, actions, reason for use, evaluation of effectiveness, side effects, and administration instructions. Target date: within 1 weeks. 3. Patient centered long-term goal transition to outpatient therapy or be able to walk out to tractor with no assistive device.. Target date: by 05/03/24. SN GENERAL ORDERS No Interventions Intervention Associated Problem/Goal Status Variance Visit Notes Fall (Order Only) Description: Shared intervention applicable to all disciplines with a visit frequency order.Patient meets criteria for Fall Program based on MAHC-10 score. Instruct patient/caregiver on fall prevention measures. Problem:FALL PREVENTION (O) Goal:Fall Prevention Completed All HH Vital Sign Parameters (Order Only) Description: Standard parameters to report to physician (unless patient specific parameters are ordered) - Applicable to all disciplines involved in patient's plan of care: Systolic blood pressure less than 90 Systolic blood pressure greater than 160 and/or diastolic blood pressure greater than 100 at rest unless due to uncontrolled pain or missed dose of antihypertensive medication. Blood Pressure greater than 140/90 for 3 consecutive readings occurring in at least two separate visits. Pulse greater than 110 at rest or less than 50 Respirations greater than 24 at rest or less than 10 Temperature greater than 101 degrees Fahrenheit New or increased edema Pulse ox less than 90% at rest on room air or while wearing prescribed oxygen, if ordered. Uncontrolled pain: chronic pain that changes in character or increases, pain that interferes with activity daily, or pain that is reported as unacceptable by the patient after use of prescribed pain control measures. Problem:ALL HH VITAL SIGN PARAMETERS Completed Pain Management/Education (O) Description: Instruct patient/ caregiver on strategies to manage pain. Problem:PAIN-MANAG EMENT/EDUCATION Goal:Pain Management/Educati on Completed Pain management plan: 1. Set a realistic goal for the day. 2. Plan rest periods. 3. Do not wait until pain is severe before doing something to relieve it. 4. Take your medicine regularly as directed. 5. Perform exercises as instructed. 6. Do something that makes you feel productive each day. 7. Make contact with family and friends. 8. Try non drug methods such as massage, aromatherapy, relaxation, and deep breathing. 9. Relaxation/ Breathing instructions: Relaxation helps to decrease muscle tension and stress. Sit in a relaxed position and focus on breathing, close your eyes. Breathe deeply and slowly (not too deeply to avoid muscle tension). If needed, count while breathing to assist with focus. Instruction provided relaxation breathing. Instruction provided to Patient. Response verbalize understanding. Notice Of Discharge Description: Complete Notice of Discharge documentation three days prior to agency discharge. Problem:SN DISCHARGE Completed Notice of discharge signed by Patient. Agrees with plan for discharge on 03/12/24. Dr. Watson Perry notified via CC note and agrees with discharge plan. SN Discharge Problem:SN DISCHARGE Completed Medication list reviewed and left in home. Medicare notice of discharge signed on n/a. Discharge Instructions provided to Patient. Response verbalize understanding. Additional Disease Management (O) Description: SN to monitor for signs and symptoms of exacerbation or complications of COPD, Depression, Anxiety, Hyperlipidemia, Tremors and GERD. Problem:SN GENERAL ORDERS Goal:SN General Completed Exacerbation/ complications noted at this visit: none General Nursing Plan of Care (Order Only) Description: Admission Certification: 74 y.o female admitted to Home Care Services for rehabilitation of mobility, strength and ADLs, fall prevention education, medication education, labs as needed and general monitoring. Estimation of how long skilled services will be required 60 days. Face to Face encounter occurred on --- with ---. Dr. Watson Perry contacted and agrees with plan of care. Clinical findings: Pt was admitted to [facility] due to a blankenship's cyst to the right knee. Patient has hx of COPD, Depression, Anxiety, Hyperlipidemia, Tremors and GERD. Pt is alert and oriented X4, lung sounds clear bilaterally, patient uses home oxygen at 2L per nasal canula to maintain SpO2 >90%, patient's bowel sound present in 4 quadrants, patient ambulating in home with front wheeled walker. pt denies pain at SOC however has had pain from blankenship's cyst in last to weeks and goal is to remain pain free. Pt's discharge goal is to transition to outpatient therapy or be able to walker to tractor with no assistive device. Skilled Nurse Focus: fall prevention education, medication education, labs as needed and general monitoring Physical Therapy to evaluate and treat for: mobility and strength Occupational Therapy to evaluate and treat for: strength and ADLs Speech Therapy to evaluate and treat for: not ordered/needed at this time Social Work Focus: not ordered/needed at this time Member Service Specialist to provide: not ordered/needed at this time Past Medical History: COPD, Depression, Anxiety, Hyperlipidemia, Tremors and GERD Other contributing issues: Pt is very independent but spouse is providing care at current time. Skilled Nurse to instruct patient/caregiver on signs and symptoms to report, emergency measures, safety measures, diet, and activity. Instruct on medication regime, and patient management. Perform physical assessment including vital signs and pain assessment. Perform pulse oximetry PRN for intermittent assessment and/ or respiratory distress. Homebound Criteria 1- Patient has illness/injury: blankenship's cyst , and needs/has: help of another person to leave home due to weakness and pain, assistive devices to leave home due to walker, unsteady gait/poor balance and assistance necessary to ambulate/transfer due to weakness and pain Homebound Criteria 2- Inability to leave the home and leaving the home requires a taxing and considerable effort due to: dyspnea with ambulation greater than 20 feet and leaving home exacerbates symptoms shortness of breath, pain and fatigue Patient has the following structural impairments: Structures of the respiratory system and Structures related to movement Patient has the following functional impairments: Sensory functions and pain, Functions of the respiratory system and Neuromusculoskeletal and movement related functions The patient's activity limitation affects the following: Mobility and Self-care Telehealth contact via video or phone by any discipline as needed to assess/monitor condition related to current diagnoses, to assist with achieving identified goals. Problem:SN GENERAL ORDERS Goal:SN General Completed High Risk Med Safety Education-Oxygen (Order Only) Description: Instruct on safe use of oxygen, perform home safety risk assessment. Assess the presence or absence and working order of smoke detectors, fire extinguishers and fire safety plans. Applies to all disciplines involved in plan of care. Problem:SAFETY/PRE VENTION EDUCATION Completed documented in this encounter Care Teams Film Crew Member Relationship Specialty Start Date End Date Watson Perry MD [address] [place] [id number] PCP - General Family Medicine 01/25/18 Adeel Covarrubias MD [address] [place] [phone] Consulting Physician Neurology 03/07/22 documented as of this encounter
--- OUTSIDE RECORDS SUMMARY | 2024-11-23 15:06 | XMS_ITS | Encounter Summary ---
Author Organization [facility] Address [address] [place] [address] Phone Care Team Providers Care Enginehouse Brakeman Name Role Phone Watson Perry MD Primary Care Provider [phone] Adeel Covarrubias MD Unavailable Reason for Visit * Auth/Cert (Routine) Specialty Diagnoses / Procedures Referred By Contac t Referred To Contact Referral ID Status Reason Start Date Expiration Date Visits Re quested Visits Authorized [id number] 1 1 Encounter Details Date Type Department Care Team (Latest Contact Info) Description 03/28/2024 10:30 AM CDT [facility] [address] [place] [address] Fartun Burrell, PT [place] PT - OASIS DISCHARGE Social History Tobacco Use Types Packs/Day [...] on file Legal Sex Female 9:54 AM CHECK WEIGHER Gender Identity Not on file Sexual Orientation Not on file documented as of this encounter Last Filed Vital Signs Vital Sign Reading Time Taken Comments Blood Pressure 106/58 03/28/2024 10:25 AM CDT Pulse 67 03/28/2024 10:25 AM CDT Temperature 36.4 ??C (97.5 ??F) 03/28/2024 10:25 AM C DT Respiratory Rate 18 03/28/2024 10:25 AM CDT Oxygen Saturation 96% 03/28/2024 10:25 AM CDT 3L O2 Inhaled Oxygen Concentration - - Weight - - Height - - Body Mass Index - - documented in this encounter Plan of Treatment Upcoming Encounters Date Type Department Care Team (Late st Contact Info) Description 12/18/2024 2:15 PM CHECK WEIGHER Office Visit [facility] - Neurology - [place] [address] [place] [address] Adeel Covarrubias MD [address] [place] [address] documented as of this encounter Visit Diagnoses Not on filedocumented in this encounter Home Health Visit - Care Plan Visit Details Visit Type -PT - OASIS DISCH ARGE Discipline -Physical Therapy Problems Problem Description Start Date Status Goals Interve ntions FALL PREVENTION (O) Disciplines: SN, PT, OT, CONSTRUCTION FLAGGER, HCA, VIDEO CAMERA OPERATOR, RT 03/05/2024 Resolved on 03/28/2024 1 goal linked to scheduled/documen zen intervention THERAPY DISEASE MANAGEMENT (O) Disciplines: Physical Therapy 03/05/2024 Resolved on 03/28/2024 - 1 problem intervention scheduled/documen zen in this visit PT DISCHARGE/REASS ESSMENT Disciplines: Physical Therapy PT Discharge 03/05/2024 Resolved on 03/28/2024 - 1 problem intervention scheduled/documen zen in this visit PHYSICAL THERAPY EVALUATION (O) Disciplines: Physical Therapy PT Evaluation 03/05/2024 Resolved on 03/28/2024 1 goal linked to scheduled/documen zen intervention PT COMPREHENSIVE Disciplines: Physical Therapy 03/05/2024 Resolved on 03/28/2024 7 goals linked to scheduled/documen zen interventions 4 goal interventions scheduled/documen zen in this visit PAIN-MANAGEMENT /EDUCATION Disciplines: Skilled Clinicians 03/05/2024 Resolved on 03/28/2024 1 goal linked to scheduled/documen zen intervention Goals Goal Associated Problem Outcome Goal Met? Visit Notes Fall Prevention Description: Shared goal applicable to all disciplines with a visit frequency order. Patient/ Caregiver will verbalize understanding of identified fall risk based on MAHC-10 Fall Risk assessment and methods to prevent falls. Target date: by 03/15/24(date) FALL PREVENTION (O) Therapy: Goal met Yes Patient voices good understanding of fall safety education provided. Physical Therapy Evaluation Description: After assessing the patient and discussing the patient's goals the following were identified: Patient centered buttermaker helper goal: to improve balance. Target Date: by 04/05/24 (date) PHYSICAL THERAPY EVALUATION (O) Therapy: Goal met Yes Tinetti improved from 09/15 to PT Balance Description: Short Term Goal: Patient will show improved dynamic standing balance as demonstrated by improved Tinetti score from 09/15 to in order to lower risk for falls. To be met by 04/05/24. PT COMPREHENSIVE Therapy: Goal met Yes Tinetti on 03/25/24 PT Edema Management Description: Short Term Goal: Patient will demonstrate consistent implementation of therapeutic edema management principles including: rest, elevation, ankle pumps, therapeutic exercise as indicated, taking medication as prescribed and frequent walks in order to manage edema for improved mobility. To be met by 03/15/24. PT COMPREHENSIVE Therapy: Goal met Yes Patient is independent with edema management techniques. PT Stairs and Home Exit Description: Short Term Goal: Patient will be independent on 3 steps with use of walker while maintaining ordered precautions to allow for ability to enter/exit home safely . To be met by 04/05/24. PT COMPREHENSIVE Therapy: Goal met Yes Patient independently enters/exits home with walker on 3 steps. PT Ambulation Description: Short Term Goal: Patient will ambulate independently 150 feet with use of 2 wheel walker, over even surfaces and uneven surfaces with the following improved gait characteristics no loss of balance in order to safely perform ADLs. To be met by 04/05/24. PT COMPREHENSIVE Therapy: Goal met Yes Patient ambulates 150 feet independently with no loss of balance with 2 wheeled walker. PT Transfers Description: Short Term Goal: Patient will perform household transfers independently with use of 2 wheeled walker ; in order to safely perform ADLs. To be met by 04/05/24. PT COMPREHENSIVE Therapy: Goal met Yes Patient performs household transfers independently with 2 wheeled walker. PT Strength Description: Short Term Goal: Patient will show improved bilateral lower extremity strength as demonstrated by improved manual muscle test score from 4-/5 to 4/5 . To be met by 04/05/24. PT COMPREHENSIVE Therapy: Goal met Yes LE 4/5 PT HEP Description: Short Term Goal: Patient and/or caregiver will independently with initial HEP of strengthening and balance training in order to progress strength and functional mobility. To be met by 04/05/24. PT COMPREHENSIVE Therapy: Goal met Yes Patient is independent with HEP. Pain Management/Education Description: Shared goal applicable to all disciplines with visit frequency order. Patient's pain level will remain at an acceptable level of 0 or lower with current pain medications/interventi ons. Target date: within 4 weeks PAIN-MANAGEMENT/EDUC ATION Therapy: Goal not met No Pain 0-5/10 Interventions Intervention Associated Problem/Goal Status Variance Visit Notes Therapy Depression (O) Description: Assess and monitor for signs and symptoms of depression. Problem:THERAPY DISEASE MANAGEMENT (O) Completed Patient shows signs of depression no Symptoms reported to physician (no, no symptoms). PT Discharge Problem:PT DISCHARGE/REASSESSMEN T Completed Medication list reviewed and left in home. Medicare notice of discharge signed on 03/25/24. Discharge Instructions provided to Patient. Response verbalize understanding. PT Edema Management Description: Instruct on edema management techniques. Problem:PT COMPREHENSIVE Goal:PT Edema Management Completed Edema management performed LE elevation Instructed on Edema management techniques LE elevation, medication as prescribed, exercise as prescribed, ankle pumps, frequent walks Evaluate compliance: compliant Instruction provided to Patient. Response verbalize understanding and return demonstration. Progress toward goal: met PT Stairs and Home Exit Description: Instruct in proper safety and technique for stair training or home exit as directed in the goal. Problem:PT COMPREHENSIVE Goal:PT Stairs and Home Exit Completed Provided skilled training on 3 steps with use of walker with independence. Skills provided: cues for safety and sequencing Tolerance to activity fair. Instruction provided to Patient. Response verbalize understanding and return demonstration. Progress toward goal: met PT Ambulation Description: Provide gait training for increased safety and efficiency. Progress per patient tolerance and safety. Problem:PT COMPREHENSIVE Goal:PT Ambulation Completed Patient ambulated independently 150 feet with use of 2 wheel walker. WBAT bilateral lower extremity over even surfaces and uneven surfaces with the following gait characteristics no loss of balance. Skills provided: cues for posture, safety. Tolerance to activity fair. Instruction provided to Patient. Response verbalize understanding and return demonstration. Progress toward goal: met PT Transfers Description: Instruct in proper safety and transfer technique. Problem:PT COMPREHENSIVE Goal:PT Transfers Completed Transfer training provided this date Sit to/from stand . Level of support required for safety independently. Assistive devices used: Front wheeled walker and Arm rest Skill provided Proper hand placement and Sequencing. Tolerance to activity good Instruction provided to Patient. Response verbalize understanding and return demonstration. Progress toward goal: met documented in this encounter Care Teams Enginehouse Brakeman Relationship Specialty Start Date End Date Watson Perry MD [address] [place] [id number] PCP - General Family Medicine 01/25/18 Adeel Covarrubias MD [address] [place] [address] Consulting Physician Neurology 03/07/22 documented as of this encounter
--- OUTSIDE RECORDS SUMMARY | 2024-11-23 15:06 | XMS_ITS | Encounter Summary ---
Author Organization [facility] Care Team Providers Care Florist Helper Name Role Phone Watson Perry MD Primary Care Provider [phone] Adeel Covarrubias MD Unavailable [phone] Encounter Details Date Type Department Care Team (Latest Contact Info) Description 03/21/2024 Travel Social History Tobacco Use Types Packs/Day [...] on file Legal Sex Female 9:54 AM CHARTER PILOT Gender Identity Not on file Sexual Orientation Not on file documented as of this encounter Plan of Treatment Upcoming Encounters Date Type Department Care Team (Late st Contact Info) Description 12/18/2024 2:15 PM CHARTER PILOT Office Visit [facility] - Neurology [facility] [address] [place] [address] Adeel Covarrubias MD [address] [place] [address] documented as of this encounter Visit Diagnoses Not on filedocumented in this encounter Care Teams Florist Helper Relationship Specialty Start Date End Date Watson Perry MD [address] [place] [address] PCP - General Family Medicine 01/25/18 Adeel Covarrubias MD [address] [place] [address] Consulting Physician Neurology 03/07/22 documented as of this encounter
--- OUTSIDE RECORDS SUMMARY | 2024-11-23 15:06 | XMS_ITS | Encounter Summary ---
Author Organization [facility] Address [address] [place] [address] Phone Care Team Providers Care Corporate Tutor Name Role Phone Watson Perry MD Primary Care Provider [phone] Adeel Covarrubias MD Unavailable [phone] Reason for Visit * Auth/Cert (Routine) Specialty Diagnoses / Procedures Referred By Contac t Referred To Contact Referral ID Status Reason Start Date Expiration Date Visits Re quested Visits Authorized [id number] 1 1 Encounter Details Date Type Department Care Team (Latest Contact Info) Description 03/24/2024 3:00 PM CDT [facility] [address] [place], [place] [id number] Meenakshi Gilbert O[facility] OT - DISCIPLINE DISCHARGE Social History Tobacco Use [...] on file Legal Sex Female 9:54 AM DESULPHURING OPERATOR Gender Identity Not on file Sexual Orientation Not on file documented as of this encounter Last Filed Vital Signs Vital Sign Reading Time Taken Comments Blood Pressure 110/68 03/24/2024 3:33 PM CDT Pulse 78 03/24/2024 3:33 PM CDT Temperature 37.1 ??C (98.7 ??F) 03/24/2024 3:33 PM CD T Respiratory Rate 18 03/24/2024 3:33 PM CDT Oxygen Saturation 94% 03/24/2024 3:33 PM CDT Inhaled Oxygen Concentration - - Weight - - Height - - Body Mass Index - - documented in this encounter Plan of Treatment Upcoming Encounters Date Type Department Care Team (Late st Contact Info) Description 12/18/2024 2:15 PM DESULPHURING OPERATOR [facility] [place] [address] [place] [address] Adeel Covarrubias MD [address] [place] [address] documented as of this encounter Visit Diagnoses Not on filedocumented in this encounter Home Health Visit - Care Plan Visit Details Visit Type -OT - DISCIPLINE DISCHARGE Discipline -Occupational Therapy Problems Problem Description Start Date Status Goals Interve ntions THERAPY DISEASE MANAGEMENT (O) Disciplines: Occupational Therapy 03/06/2024 Active - 1 problem intervention scheduled/documen zen in this visit OCCUPATIONAL THERAPY GENERAL ORDER (O) Disciplines: Occupational Therapy Occupational Therapy General Order 03/06/2024 Active 1 goal linked to scheduled/document ed intervention 1 goal intervention scheduled/documen zen in this visit OT DISCHARGE Disciplines: Occupational Therapy OT Discharge 03/06/2024 Active - 1 problem intervention scheduled/documen zen in this visit OT COMPREHENSIVE Disciplines: Occupational Therapy 03/06/2024 Active 9 goals linked to scheduled/document ed interventions 4 goal interventions scheduled/documen zen in this visit Goals Goal Associated Problem Outcome Goal Met? Visit Notes Occupational Therapy General Description: After assessing the patient and discussing the patient's goals the following were identified. Patient Centered Yardage Control Operator Forming Goal: to get stronger Target date: within 6 weeks OCCUPATIONAL THERAPY GENERAL ORDER (O) No OT Assessment Tools Description: Short Term Goal: Patient will demonstrate improvement in Dane Index by 5+ points to increase their ability to care for themselves at home. To be met by 03/21/24. Custodial Goal: Patient will demonstrate improvement in Dane Index by 10+ points to increase their ability to care for themselves at home. To be met by 03/28/24. OT COMPREHENSIVE Therapy: Goal met Yes OT Meal Prep Description: Yardage Control Operator Forming Goal: Patient will complete meal preparation/functional kitchen mobility at standing level with walker, seated walker, walker basket/tray and other recommended DME/equip/tech prn with independence and good understanding of safety/technique. To be met by 03/28/24 OT COMPREHENSIVE Therapy: Goal met Yes OT Toileting Description: Patient will perform/simulate dry run/complete toileting to include clothing management and hygiene at standing position with recommended DME/tech prn with independence and good understanding of safety/technique. To be met by 03/28/24. OT COMPREHENSIVE Therapy: Goal met Yes OT Dressing Description: Yardage Control Operator Forming Goal: Patient will perform/simulate dry run/demonstrate prn complete total body dressing with recommended adap equip/tech/DME prn with independence and good understanding of safety/technique. To be met by 03/28/24 OT COMPREHENSIVE Therapy: Goal met Yes OT Bathing Description: Yardage Control Operator Forming Goal: Patient will perform/simulate dry run/demonstrate prn total body bathing at shower level while sitting and/or standing with recommended DME prn with independence and good understanding of safety/technique. To be met by 03/28/24. OT COMPREHENSIVE Therapy: Goal met Yes OT Balance Description: Short Term Goal: Patient will improve dynamic standing balance from fair - to fair with recommended DME prn to perform ADLs, IADLs, mobilities with good understanding of safety/technique. To be met by 03/21/24. Yardage Control Operator Forming Goal: Patient will improve dynamic standing balance from fair to fair + with recommended DME prn to perform ADLs, IADLs, mobilities with good understanding of safety/technique. To be met by 03/28/24. OT COMPREHENSIVE Therapy: Goal met Yes OT Activity Tolerance Description: Short Term Goal: Patient to demonstrate increased activity tolerance for 5 minutes of activity with a pulse ox reading of 90 or above to perform Ther Ex, ADLs and IADLs at standing or sitting level. To be met by 03/21/24. OT COMPREHENSIVE Therapy: Goal met Yes OT Transfers Description: Short term goal: Patient will complete tub/shower, chair, toilet and functional transfers/mobilities for ADLs with adaptive equipment/tech prn with CGA in order to decrease risk of falls and increase functional independence. to be met by 03/21/24 terminal operations supervisor goal: Patient will complete tub/shower, chair, toilet and functional transfers/mobilities for ADLs with adaptive equipment/tech prn with independence in order to decrease risk of falls and increase functional independence. to be met by 03/28/24 OT COMPREHENSIVE Therapy: Goal met Yes OT Home Exercise Program Description: Short Term Goal: Patient and Caregiver will perform B HEP of UE AROM with stand by assist and good understanding of safety/technique. To be met by 03/21/24. Custodial Goal: Patient and Caregiver will perform B HEP of UE AROM with independence and good understanding of safety/technique. To be met by 03/28/24. OT COMPREHENSIVE Therapy: Goal met Yes Interventions Intervention Associated Problem/Goal Status Variance Visit Notes Therapy Depression (O) Description: Assess and monitor for signs and symptoms of depression. Problem:THERAPY DISEASE MANAGEMENT (O) Completed Patient shows signs of depression yes Symptoms reported to physician MD aware OT Evaluation (Order Only) Description: Pt was hospitalized at [facility] from 02/18/24-02/23/24 with c/o R knee pain. She was found to have a Moseley's cyst which was aspirated on 02/21/24 and showed no crystals seen. Preliminary aerobic and anaerobic cultures and Gram stains from aspirate of right knee showed no PMNs or organisms. Patient likely also has arthritis of that knee that caused discomfort. She wears 3L O2 at baseline. Pt had a fall and broke her left hip in 2022. Patient denies pain. Patient also has an essential tremor. PMH : COPD, covid-19, resp failure, essential tremor, GERD, anxiety, depression, L TANJA 08/2023, centrilobular emphysema, HLD. Pt has been on O2 for last 4-5 years. Pt lives with her who does work so she is home by herself. Clinical findings: overall functional weakness, impaired functional endurance, decreased safety with and increased assistance with ADLs, IADLs, decline in functional balance, decline in safety and performance of functional transfers/mobilities, B UE weakness, pain.. Therapy Focus: ADLs, IADLs, functional transfers/mobilities, therapeutic exercise, endurance activities, balanace activities, DME/adap equip, overall safety and education/training. Other contributing issues: Pts rehab potential may be limited due to multiple co-morbidities, prior level of function, environmental limitations, motivation, risk of falls, questionable compliance, pain, anxiety. Perform pulse oximetry PRN for intermittent assessment and/ or respiratory distress. Pt is aware and agreeable with goals and POC. Patient and MD are agreeable with plan of care. Problem:OCCUPATIONAL THERAPY GENERAL ORDER (O) Goal:Occupational Therapy General Completed OT Discharge Problem:OT DISCHARGE Completed Medication list reviewed and left in home. Discharge Instructions provided to Patient. Response verbalize understanding, return demonstration and teachback. OT Bathing Description: Instruct on bathing techniques and safety. ADL equipment as needed. Problem:OT COMPREHENSIVE Goal:OT Bathing pt reports independence with bathing , declined need to address at this time as spouse will assist PRN OT Balance Description: Instruct on balance techniques and safety. Equipment as needed. Problem:OT COMPREHENSIVE Goal:OT Balance Completed pt planting [place] outside. therapist ed on wide/shoulder width NONI and safety with tubing management and shoes fully on feet rather than slip ons. patient verbalized understanding goal met OT Activity Tolerance Description: Instruct on activity tolerance techniques. Problem:OT COMPREHENSIVE Goal:OT Activity Tolerance Completed pt outside planting [place] with 02 levels above 90% for duration with no c/o SOB. goal met OT Home Exercise Program Description: Instruct on Home Exercise Program. Problem:OT COMPREHENSIVE Goal:OT Home Exercise Program pt reports independence with dressing , declined need to address at this time as spouse will assist PRN documented in this encounter Care Teams Corporate Tutor Relationship Specialty Start Date End Date Watson Perry MD [address] [place] [id number] PCP - General Family Medicine 01/25/18 Adeel Covarrubias MD [address] [place] [address] Consulting Physician Neurology 03/07/22 documented as of this encounter
--- OUTSIDE RECORDS SUMMARY | 2024-11-23 15:06 | XMS_ITS | Encounter Summary ---
Author Organization [facility] Care Team Providers Care Area Loss Prevention Manager Name Role Phone Watson Perry MD Primary Care Provider [phone] Adeel Covarrubias MD Unavailable [phone] Encounter Details Date Type Department Care Team (Latest Contact Info) Description 01/22/2024 Travel Social History Tobacco Use Types Packs/Day [...] on file Legal Sex Female 9:54 AM MANAGER LAND Gender Identity Not on file Sexual Orientation Not on file documented as of this encounter Plan of Treatment Upcoming Encounters Date Type Department Care Team (Late st Contact Info) Description 12/18/2024 2:15 PM MANAGER LAND Office Visit [facility] - Neurology [facility] [address] [place] [address] Adeel Covarrubias MD [address] [place] [address] documented as of this encounter Visit Diagnoses Not on filedocumented in this encounter Care Teams Area Loss Prevention Manager Relationship Specialty Start Date End Date Watson Perry MD [address] [place] [id number] PCP - General Family Medicine 01/25/18 Adeel Covarrubias MD [address] [place] [address] Consulting Physician Neurology 03/07/22 documented as of this encounter
--- OUTSIDE RECORDS SUMMARY | 2024-11-23 15:06 | XMS_ITS | Encounter Summary ---
Author Organization [facility] Address [address] [place] [address] Phone Care Team Providers Care President Commercial Bank Name Role Phone Watson Perry MD Primary Care Provider [phone] Adeel Covarrubias MD Unavailable [phone] Reason for Visit * Auth/Cert (Routine) Specialty Diagnoses / Procedures Referred By Contac t Referred To Contact Referral ID Status Reason Start Date Expiration Date Visits Re quested Visits Authorized [id number] 1 1 Encounter Details Date Type Department Care Team (Late Contact Info) Description 03/12/2024 Home Care Visit [facility] [address] [place] [address] Fartun Burrell, PT [place] CASE COMMUNICATION Social History Tobacco Use Types Packs/Day Years [...] on file Legal Sex Female 9:54 AM DATA COMPILER Gender Identity Not on file Sexual Orientation Not on file documented as of this encounter Plan of Treatment Upcoming Encounters Date Type Department Care Team (Late Contact Info) Description 12/18/2024 2:15 PM DATA COMPILER [facility] [address] [place] [address] Adeel Covarrubias MD [address] [place] [address] documented as of this encounter Visit Diagnoses Not on filedocumented in this encounter Care Teams President Commercial Bank Relationship Specialty Start Date End Date Watson Perry MD [address] [place] [id number] PCP - General Family Medicine 01/25/18 Adeel Covarrubias MD [address] [place] [address] Consulting Physician Neurology 03/07/22 documented as of this encounter
--- OUTSIDE RECORDS SUMMARY | 2024-11-23 15:06 | XMS_ITS | Encounter Summary ---
Author Organization [facility] Care Team Providers Care Repair Operator Name Role Phone Watson Perry MD Primary Care Provider [phone] Adeel Covarrubias MD Unavailable [phone] Encounter Details Date Type Department Care Team (Latest Contact Info) Description 03/14/2024 Travel Social History Tobacco Use Types Packs/Day [...] on file Legal Sex Female 9:54 AM PARKING OFFICER Gender Identity Not on file Sexual Orientation Not on file documented as of this encounter Plan of Treatment Upcoming Encounters Date Type Department Care Team (Late st Contact Info) Description 12/18/2024 2:15 PM PARKING OFFICER Office Visit [facility] - Neurology [facility] [address] [place] [address] Adeel Covarrubias MD [address] [place] [address] documented as of this encounter Visit Diagnoses Not on filedocumented in this encounter Care Teams Repair Operator Relationship Specialty Start Date End Date Watson Perry MD [address] [place] [address] PCP - General Family Medicine 01/25/18 Adeel Covarrubias MD [address] [place] [address] Consulting Physician Neurology 03/07/22 documented as of this encounter
--- OUTSIDE RECORDS SUMMARY | 2024-11-23 15:06 | XMS_ITS | Encounter Summary ---
Author Organization [facility] Address [address] [place] [address] Phone Care Team Providers Care Interactive Graphic Designer Name Role Phone Watson Perry MD Primary Care Provider [phone] Adeel Covarrubias MD Unavailable [phone] Reason for Visit * Auth/Cert (Routine) Specialty Diagnoses / Procedures Referred By Contac t Referred To Contact Referral ID Status Reason Start Date Expiration Date Visits Re quested Visits Authorized [id number] 1 1 Encounter Details Date Type Department Care Team (Late Contact Info) Description 03/24/2024 Home Care Visit [facility] [address] [place] [address] Fartun Burrell, PT ID CASE COMMUNICATION Social History Tobacco Use Types [...] on file Legal Sex Female 9:54 AM CLINICAL RN LIAISON Gender Identity Not on file Sexual Orientation Not on file documented as of this encounter Plan of Treatment Upcoming Encounters Date Type Department Care Team (Late Contact Info) Description 12/18/2024 2:15 PM CLINICAL RN LIAISON [facility] [address] [place] [address] Adeel Covarrubias MD [address] [place] [address] documented as of this encounter Visit Diagnoses Not on filedocumented in this encounter Care Teams Interactive Graphic Designer Relationship Specialty Start Date End Date Watson Perry MD [address] [place] [address] PCP - General Family Medicine 01/25/18 Adeel Covarrubias MD [address] [place] [address] Consulting Physician Neurology 03/07/22 documented as of this encounter
--- OUTSIDE RECORDS SUMMARY | 2024-11-23 15:06 | XMS_ITS | Encounter Summary ---
Author Organization [facility] Address [address] [place] [address] Phone Care Team Providers Care Camp Cook Name Role Phone Watson Perry MD Primary Care Provider [phone] Adeel Covarrubias MD Unavailable [phone] Reason for Visit * Auth/Cert (Routine) Specialty Diagnoses / Procedures Referred By Contac t Referred To Contact Referral ID Status Reason Start Date Expiration Date Visits Re quested Visits Authorized [id number] 1 1 Encounter Details Date Type Department Care Team (Latest Contact Info) Description 03/05/2024 2:30 PM CDT [facility] [address] [place] [address] Fartun Burrell, PT [place] PT - INITIAL EVALUATION Social History Tobacco Use Types Packs/Day Years [...] on file 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 Gender Identity Not on file Sexual Orientation Not on file documented as of this encounter Last Filed Vital Signs Vital Sign Reading Time Taken Comments Blood Pressure 110/64 03/05/2024 3:17 PM CDT Pulse 75 03/05/2024 3:17 PM CDT Temperature 36.2 ??C (97.1 ??F) 03/05/2024 3:17 PM CD T Respiratory Rate 18 03/05/2024 3:17 PM CDT Oxygen Saturation 93% 03/05/2024 3:17 PM CDT 3L O2 Inhaled Oxygen Concentration - - Weight - - Height - - Body Mass Index - - documented in this encounter Plan of Treatment Upcoming Encounters Date Type Department Care Team (Late st Contact Info) Description 12/18/2024 2:15 PM BEEF CATTLE FARM WORKER [facility] [place] [address] [place] [address] Adeel Covarrubias MD [address] [place] [address] documented as of this encounter Visit Diagnoses Not on filedocumented in this encounter Home Health Visit - Care Plan Visit Details Visit Type -PT - INITIAL MANI BROWNING Discipline -Physical Therapy Problems Problem Description Start Date Status Goals Interve ntions THERAPY DISEASE MANAGEMENT (O) Disciplines: Physical Therapy 03/05/2024 Active - 1 problem intervention scheduled/documente d in this visit PT COMPREHENSIVE Disciplines: Physical Therapy 03/05/2024 Active 1 goal linked to scheduled/document ed intervention 1 goal intervention scheduled/documente d in this visit Goals Goal Associated Problem Outcome Goal Met? Visit Notes PT Edema Management Description: Short Term Goal: Patient will demonstrate consistent implementation of therapeutic edema management principles including: rest, elevation, ankle pumps, therapeutic exercise as indicated, taking medication as prescribed and frequent walks in order to manage edema for improved mobility. To be met by 03/15/24. PT COMPREHENSIVE No Interventions Intervention Associated Problem/Goal Status Variance Visit Notes Therapy Depression (O) Description: Assess and monitor for signs and symptoms of depression. Problem:THERAPY DISEASE MANAGEMENT (O) Completed Patient shows signs of depression no Symptoms reported to physician (no, no symptoms). PT Edema Management Description: Instruct on edema management techniques. Problem:PT COMPREHENSIVE Goal:PT Edema Management Completed Edema management performed LE elevation Instructed on Edema management techniques LE elevation, ankle pumps, medication as prescribed, exercise as prescribed, frequent walks Evaluate compliance: compliant Instruction provided to Patient. Response verbalize understanding and return demonstration. Progress toward goal: ongoing documented in this encounter Care Teams Camp Cook Relationship Specialty Start Date End Date Watson Perry MD [address] [place] [address] PCP - General Family Medicine 01/25/18 Adeel Covarrubias MD [address] [place] [address] Consulting Physician Neurology 03/07/22 documented as of this encounter
--- OUTSIDE RECORDS SUMMARY | 2024-11-23 15:06 | XMS_ITS | Encounter Summary ---
Author Organization [facility] Address [address] [place] [address] Phone Care Team Providers Care Pickle Cutter Name Role Phone Watson Perry MD Primary Care Provider [phone] Adeel Covarrubias MD Unavailable Reason for Visit * Auth/Cert (Routine) Specialty Diagnoses / Procedures Referred By Contac t Referred To Contact Referral ID Status Reason Start Date Expiration Date Visits Re quested Visits Authorized [id number] 1 1 Encounter Details Date Type Department Care Team (Latest Contact Info) Description 03/05/2024 11:30 AM CDT [facility] [address] [place], [place] [id number] Jaylene Biggs RN SN - OASIS START OF CARE Social History Tobacco Use Types Packs/Day Years [...] on file 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 Gender Identity Not on file Sexual Orientation Not on file documented as of this encounter Last Filed Vital Signs Vital Sign Reading Time Taken Comments Blood Pressure 122/60 03/05/2024 12:38 PM CDT Pulse 78 03/05/2024 12:38 PM CDT Temperature 36.4 ??C (97.6 ??F) 03/05/2024 12:38 PM C DT Respiratory Rate 20 03/05/2024 12:38 PM CDT Oxygen Saturation 90% 03/05/2024 12:38 PM CDT Inhaled Oxygen Concentration - - Weight 77.1 kg (170 lb) 03/05/2024 12:38 PM CDT Height 165.1 cm (5' 5 ) 03/05/2024 12:38 PM CDT Body Mass Index 28.29 03/05/2024 12:38 PM CDT documented in this encounter Plan of Treatment Upcoming Encounters Date Type Department Care Team (Late st Contact Info) Description 12/18/2024 2:15 PM BUTTON SEWING MACHINE OPERATOR [facility] [address] [place] [address] Adeel Covarrubias MD [address] [place] [address] documented as of this encounter Visit Diagnoses Not on filedocumented in this encounter Home Health Visit - Care Plan Visit Details Visit Type -SN - OASIS START OF CARE Discipline -Custodial Problems Problem Description Start Date Status Goals Interve ntions FALL PREVENTION (O) Disciplines: SN, PT, OT, SCRAP MATERIALS BUYER, HCA, FINANCIAL SERVICES PROFESSIONAL, RT 03/05/2024 Active 1 goal linked to scheduled/documen zen intervention 1 goal intervention scheduled/document ed in this visit ALL HH VITAL SIGN PARAMETERS Disciplines: All Home Care 03/05/2024 Active - 1 problem intervention scheduled/document ed in this visit PAIN-MANAGEMENT /EDUCATION Disciplines: Skilled Clinicians 03/05/2024 Active 1 goal linked to scheduled/documen zen intervention 1 goal intervention scheduled/document ed in this visit SN GENERAL ORDERS Disciplines: Custodial SN General Orders 03/05/2024 Active 1 goal linked to scheduled/documen zen intervention 2 goal interventions scheduled/document ed in this visit SAFETY/PREVENTI ON EDUCATION Disciplines: Custodial Safety/Preventio n Education 03/05/2024 Active - 1 [...] Problem:FALL PREVENTION (O) Goal:Fall Prevention Completed All Vital Sign Parameters (Order Only) Description: Standard [...] breathing. Instruction provided to Patient. Response verbalize understanding and teachback. Additional Disease Management (O) Description: SN to [...] care. Clinical findings: Pt was admitted to [facility] due to a blankenship's cyst to [...] Work Focus: not ordered/needed at this time Game Attendant to provide: not ordered/needed at this time [...] Completed documented in this encounter Care Teams Pickle Cutter Relationship Specialty Start Date End Date Watson Perry MD [address] [place] [address] PCP - General Family Medicine 01/25/18 Adeel Covarrubias MD [address] [place] [address] Consulting Physician Neurology 03/07/22 documented as of this encounter
--- OUTSIDE RECORDS SUMMARY | 2024-11-23 15:06 | XMS_ITS | Encounter Summary ---
Author Organization [facility] Address [address] [place] [address] Phone Care Team Providers Care Legislative Correspondent Name Role Phone Watson Perry MD Primary Care Provider [phone] Adeel Covarrubias MD Unavailable [phone] Reason for Visit * Auth/Cert (Routine) Specialty Diagnoses / Procedures Referred By Contac t Referred To Contact Referral ID Status Reason Start Date Expiration Date Visits Re quested Visits Authorized [id number] 1 1 Encounter Details Date Type Department Care Team (Late st Contact Info) Description 03/14/2024 10:30 AM CDT [facility] [address] [place] [address] Katlin Whelan, MATERIAL EXPEDITER [place] PT - HOME VISIT Social History Tobacco Use Types Packs/Day Years [...] on file 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 Gender Identity Not on file Sexual Orientation Not on file documented as of this encounter Last Filed Vital Signs Vital Sign Reading Time Taken Comments Blood Pressure 130/78 03/14/2024 11:10 AM CDT Pulse 59 03/14/2024 11:10 AM CDT Temperature 36.6 ??C (97.8 ??F) 03/14/2024 11:10 AM C DT Respiratory Rate 18 03/14/2024 11:10 AM CDT Oxygen Saturation 94% 03/14/2024 11:10 AM CDT Inhaled Oxygen Concentration - - Weight - - Height - - Body Mass Index - - documented in this encounter Plan of Treatment Upcoming Encounters Date Type Department Care Team (Late st Contact Info) Description 12/18/2024 2:15 PM STORAGE RECEIPT POSTER [facility] - [facility]rology - [place] [address] [place] [address] Adeel Covarrubias MD [address] [place] [address] documented as of this encounter Visit Diagnoses Not on filedocumented in this encounter Home Health Visit - Care Plan Visit Details Visit Type -PT - HOME VISIT Discipline -Physical Therapy Problems Problem Description Start Date Status Goals Interve ntions THERAPY DISEASE MANAGEMENT (O) Disciplines: Physical Therapy 03/05/2024 Active - 2 problem interventions scheduled/documen zen in this visit PHYSICAL THERAPY EVALUATION (O) Disciplines: Physical Therapy PT Evaluation 03/05/2024 Active 1 goal linked to scheduled/document ed intervention 1 goal intervention scheduled/documen zen in this visit PT COMPREHENSIVE Disciplines: Physical Therapy 03/05/2024 Active 7 goals linked to scheduled/document ed interventions 7 goal interventions scheduled/documen zen in this visit Goals Goal Associated Problem Outcome Goal Met? Visit Notes Physical Therapy Evaluation Description: After assessing the patient and discussing the patient's goals the following were identified: Patient centered chcf goal: to improve balance. Target Date: by 04/05/24 (date) PHYSICAL THERAPY EVALUATION (O) No PT Balance Description: Short Term Goal: Patient will show improved dynamic standing balance as demonstrated by improved Tinetti score from 09/15 to in order to lower risk for falls. To be met by 04/05/24. PT COMPREHENSIVE No PT Edema Management Description: Short Term Goal: Patient will demonstrate consistent implementation of therapeutic edema management principles including: rest, elevation, ankle pumps, therapeutic exercise as indicated, taking medication as prescribed and frequent walks in order to manage edema for improved mobility. To be met by 03/15/24. PT COMPREHENSIVE No PT Stairs and Home Exit Description: Short Term Goal: Patient will be independent on 3 steps with use of walker while maintaining ordered precautions to allow for ability to enter/exit home safely . To be met by 04/05/24. PT COMPREHENSIVE No PT Ambulation Description: Short Term Goal: Patient will ambulate independently 150 feet with use of 2 wheel walker, over even surfaces and uneven surfaces with the following improved gait characteristics no loss of balance in order to safely perform ADLs. To be met by 04/05/24. PT COMPREHENSIVE No PT Transfers Description: Short Term Goal: Patient will perform household transfers independently with use of 2 wheeled walker ; in order to safely perform ADLs. To be met by 04/05/24. PT COMPREHENSIVE No PT Strength Description: Short Term Goal: Patient will show improved bilateral lower extremity strength as demonstrated by improved manual muscle test score from 4-/5 to 4/5 . To be met by 04/05/24. PT COMPREHENSIVE No PT HEP Description: Short Term Goal: Patient and/or caregiver will independently with initial HEP of strengthening and balance training in order to progress strength and functional mobility. To be met by 04/05/24. PT COMPREHENSIVE No Interventions Intervention Associated Problem/Goal Status Variance Visit Notes Therapy Depression (O) Description: Assess and monitor for signs and symptoms of depression. Problem:THERAPY DISEASE MANAGEMENT (O) Completed Patient shows signs of depression no Symptoms reported to physician no symptoms. Therapy COPD Disease Management (O) Description: Monitor for symptoms of COPD exacerbation and report to nurse or physician. Problem:THERAPY DISEASE MANAGEMENT (O) Completed COPD exacerbation symptoms exhibited none. Action taken n/a Physical Therapy General (Order Only) Description: Clinical findings: 74 y/o female who presents to [facility] after hospitalization at [facility] from 02/18/24-02/23/24 with c/o R knee pain. She was found to have a Moseley's cyst which was aspirated on 02/21/24 and showed no crystals seen. Preliminary aerobic and anaerobic cultures and Gram stains from aspirate of right knee showed no PMNs or organisms. Patient likely also has arthritis of that knee that caused discomfort. She wears 3L O2 at baseline. At initial PT evaluation, patient reports independence with ADLs at baseline. Patient has been using a 2 wheeled walker since falling and breaking her left hip in 2022. Patient denies pain. LE strength 4-/5 and equal bilaterally. Patient reports numbness/tingling in bilateral feet. Patient also has an essential tremor. Tinetti Balance Assessment 09/15, indicating high fall risk. Patient performs functional transfers in home with contact guard assist. Patient ambulates 75 feet on even surfaces and uneven surfaces on driveway/patio with 2 wheeled walker with contact guard assist. Patient demonstrates slow sourav with decreased step length and foot clearance noted. Patient ascends 3 stairs on patio with 2 wheeled walker with minimum assist. 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 Patient ambulated from driveway into home without use of supplemental O2 and SpO2 85% on room air, heart rate 97 bpm with recovery to 93%, heart rate 75 bpm with seated rest and application of 3L O2. Modified Kate Scale 5/10 with exertion. Patient is able to maintain SpO2 levels in the home when wearing her oxygen. Patient would benefit from skilled PT 1W1, 2W4 for safety education, strengthening, balance training, transfer training, gait training and stair training to increase level of independence and return patient to PLOF. Patient participates in POC, frequency and goal setting and is in agreement. PMH : COPD, covid-19, resp failure, essential tremor, GERD, anxiety, depression, L TANJA 08/2023, centrilobular emphysema, HLD Therapy Focus: safety education, strengthening, balance training, transfer training, gait training, stair training Other contributing issues: independent PLOF, motivated, chronic O2 use Perform pulse oximetry PRN for intermittent assessment and/ or respiratory distress. Problem:PHYSICAL THERAPY EVALUATION (O) Goal:Physical Therapy Evaluation Completed PT Balance Description: Provide balance training for safety and reduced fall risk. Problem:PT COMPREHENSIVE Goal:PT Balance Completed with variance Patient refused Due to increased right LE pain PT Edema Management Description: Instruct on edema management techniques. Problem:PT COMPREHENSIVE Goal:PT Edema Management Completed Edema management performed for right LE Instructed on Edema management techniques ankle pumps, LE elevation, take frequent walks. Evaluate compliance: compliant Instruction provided to Patient. Response verbalize understanding. Progress toward goal: ongoing PT Stairs and Home Exit Description: Instruct in proper safety and technique for stair training or home exit as directed in the goal. Problem:PT COMPREHENSIVE Goal:PT Stairs and Home Exit Not addressed at this visit due to increased right knee pain PT Ambulation Description: Provide gait training for increased safety and efficiency. Progress per patient tolerance and safety. Problem:PT COMPREHENSIVE Goal:PT Ambulation Completed Patient ambulated with CGA for 30 feet with use of 2 wheel walker and Rolator waker for 15 feet. WBAT R lower extremity over even surfaces with the following gait characteristics slow pace, deacreased weight bearing and single leg stance time right LE. Skills provided: Tolerance to activity modified Kate rating 6/10 and pulse ox reading 95% on 3 L of O2. Instruction provided to Patient. PT Transfers Description: Instruct in proper safety and transfer technique. Problem:PT COMPREHENSIVE Goal:PT Transfers Completed Transfer training provided this date Sit to/from stand from kitchen chair with B arm rests and commode. Level of support required for safety with contact guard assist. Assistive devices used: Front wheeled walker chair arm rests. Skill provided Initial instruction in safety and technique, Proper hand and foot placement and Sequencing with cues for forward propulsion Tolerance to activity fair Instruction provided to Patient. Response verbalize understanding, return demonstration and additional education required. Progress toward goal: ongoing PT Therapeutic Exercise Description: Instruct on therapeutic exercise. Progress as tolerated. Problem:PT COMPREHENSIVE Goal:PT Strength Completed Therapeutic exercise instruction this date in reclined supine/siting HEP off of provided handouts. Pt was instructed in and performed 10reps of LE exercises in supine (AROM) : ankle pumps, quad sets, glute sets, heel slides, hip abd/add, SAQ. Sitting (AROM): included ankle pumps, LAQ's, hip flexion, hip abduction all x 10 reps. Verbal cues for proper breathing technique, engaging core musculature for support, and slower performance with 3 sec pause at end of range for optimal benefit of exercises - good return demo. Patient preformed LE recumbent bike x 4 min. LE HEP performed to promote improved B LE strength for carry-over into functional mobility. Recommended she perform LE HEP 2x daily for continued strengthening. Skills provided: ongoing instruction in technique, preform 15reps 2 x daily. Home Exercise Program issued provided at this visit Instruction provided to Patient. PT HEP Progression Description: Instruct on home exercise program. Progress as tolerated. Problem:PT COMPREHENSIVE Goal:PT HEP Completed Home Exercise Program issued for siting and supine HEP with provision of handouts at prior visit. Instruction provided to Patient. Response verbalize understanding, return demonstration and additional education required. documented in this encounter Care Teams Legislative Correspondent Relationship Specialty Start Date End Date Watson Perry MD [address] [place] [id number] PCP - General Family Medicine 01/25/18 Adeel Covarrubias MD [address] [place] [address] Consulting Physician Neurology 03/07/22 documented as of this encounter
--- OUTSIDE RECORDS SUMMARY | 2024-11-23 15:06 | XMS_ITS | Encounter Summary ---
Author Organization [facility] Care Team Providers Care Business Administration Teacher Name Role Phone Watson Perry MD Primary Care Provider [phone] Adeel Covarrubias MD Unavailable [phone] Encounter Details Date Type Department Care Team (Latest Contact Info) Description 03/20/2024 Travel Social History Tobacco Use Types Packs/Day [...] on file Legal Sex Female 9:54 AM RIVER CAPTAIN Gender Identity Not on file Sexual Orientation Not on file documented as of this encounter Plan of Treatment Upcoming Encounters Date Type Department Care Team (Late st Contact Info) Description 12/18/2024 2:15 PM RIVER CAPTAIN Office Visit [facility] - Neurology [facility] [address] [place] [address] Adeel Covarrubias MD [address] [place] [address] documented as of this encounter Visit Diagnoses Not on filedocumented in this encounter Care Teams Business Administration Teacher Relationship Specialty Start Date End Date Watson Perry MD [address] [place] [address] PCP - General Family Medicine 01/25/18 Adeel Covarrubias MD [address] [place] [address] Consulting Physician Neurology 03/07/22 documented as of this encounter
--- OUTSIDE RECORDS SUMMARY | 2024-11-23 15:06 | XMS_ITS | Encounter Summary ---
Author Organization [facility] Address [address] 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 no documented in this encounter Plan of Treatment Upcoming Encounters Date Type Department Care Team (Late st Contact Info) Description 12/18/2024 2:15 PM OUTREACH ASSOCIATE [facility] [address] [place] [address] Adeel Covarrubias MD [address] [place] [address] documented as of this encounter Visit Diagnoses Not on filedocumented in this encounter Care Teams Subsurface Augmentee Operator Relationship Specialty Start Date End Date Watson Perry MD [address] [place] [address] PCP - General Family Medicine 01/25/18 Adeel Covarrubias MD [address] [place] [address] Consulting Physician Neurology 03/07/22 documented as of this encounter
--- OUTSIDE RECORDS SUMMARY | 2024-11-23 15:06 | XMS_ITS | Encounter Summary ---
Author Organization [facility] Address [address] [place] [address] Phone Care Team Providers Care Sports Specialist Name Role Phone Watson Perry MD Primary Care Provider [phone] Adeel Covarrubias MD Unavailable [phone] Reason for Visit * Auth/Cert (Routine) Specialty Diagnoses / Procedures Referred By Contac t Referred To Contact Referral ID Status Reason Start Date Expiration Date Visits Re quested Visits Authorized [id number] 1 1 Encounter Details Date Type Department Care Team (Late st Contact Info) Description 03/14/2024 9:00 AM CDT [facility] [address] [place] [address] Meenakshi Gilbert OTA [place] OT - HOME VISIT Social History Tobacco Use [...] on file Legal Sex Female 9:54 AM VAMP STRAP IRONER Gender Identity Not on file Sexual Orientation Not on file documented as of this encounter Last Filed Vital Signs Vital Sign Reading Time Taken Comments Blood Pressure 130/78 03/14/2024 9:01 AM CDT Pulse 59 03/14/2024 9:01 AM CDT Temperature 36.6 ??C (97.8 ??F) 03/14/2024 9:01 AM CD T Respiratory Rate 18 03/14/2024 9:01 AM CDT Oxygen Saturation 94% 03/14/2024 9:01 AM CDT 3L Inhaled Oxygen Concentration - - Weight - - Height - - Body Mass Index - - documented in this encounter Plan of Treatment Upcoming Encounters Date Type Department Care Team (Late st Contact Info) Description 12/18/2024 2:15 PM VAMP STRAP IRONER Office [facility] - [place] [address] [place] [address] Adeel Covarrubias MD [address] [place] [phone] documented as of this encounter Visit Diagnoses Not on filedocumented in this encounter Home Health Visit - Care Plan Visit Details Visit Type -OT - HOME VISIT Discipline -Occupational Therapy Problems Problem Description Start [...] OT COMPREHENSIVE Disciplines: Occupational Therapy 03/06/2024 Active 7 goals linked to scheduled/document ed interventions 7 goal interventions scheduled/documen zen in this visit Goals Goal Associated Problem Outcome Goal Met? Visit Notes Occupational Therapy General Description: After assessing the patient and discussing the patient's goals the following were identified. Patient Centered Marketing Database Consultant Goal: to get stronger Target date: within 6 weeks OCCUPATIONAL THERAPY GENERAL ORDER (O) No OT Meal Prep Description: Skilled Nursing Goal: Patient will complete meal preparation/functional kitchen mobility at standing level with walker, seated walker, walker basket/tray and other recommended DME/equip/tech prn with independence and good understanding of safety/technique. To be met by 03/28/24 OT COMPREHENSIVE No OT Toileting Description: Patient will perform/simulate dry run/complete toileting to include clothing management and hygiene at standing position with recommended DME/tech prn with independence and good understanding of safety/technique. To be met by 03/28/24. OT COMPREHENSIVE No OT Dressing Description: Marketing Database Consultant Goal: Patient will perform/simulate dry run/demonstrate prn complete total body dressing with recommended adap equip/tech/DME prn with independence and good understanding of safety/technique. To be met by 03/28/24 OT COMPREHENSIVE No OT Bathing Description: Skilled Nursing Goal: Patient will perform/simulate dry run/demonstrate prn total body bathing at shower level while sitting and/or standing with recommended DME prn with independence and good understanding of safety/technique. To be met by 03/28/24. OT COMPREHENSIVE No OT Activity Tolerance Description: Short Term Goal: Patient to demonstrate increased activity tolerance for 5 minutes of activity with a pulse ox reading of 90 or above to perform Ther Ex, ADLs and IADLs at standing or sitting level. To be met by 03/21/24. OT COMPREHENSIVE No OT Transfers Description: Short term goal: Patient will complete tub/shower, chair, toilet and functional transfers/mobilities for ADLs with adaptive equipment/tech prn with CGA in order to decrease risk of falls and increase functional independence. to be met by 03/21/24 dedicated intermodal truck driver goal: Patient will complete tub/shower, chair, toilet and functional transfers/mobilities for ADLs with adaptive equipment/tech prn with independence in order to decrease risk of falls and increase functional independence. to be met by 03/28/24 OT COMPREHENSIVE No OT Home Exercise Program Description: Short Term Goal: Patient and Caregiver will perform B HEP of UE AROM with stand by assist and good understanding of safety/technique. To be met by 03/21/24. Skilled Nursing Goal: Patient and Caregiver will perform B HEP of UE AROM with independence and good understanding of safety/technique. To be met by 03/28/24. OT COMPREHENSIVE No Interventions Intervention Associated Problem/Goal Status Variance Visit Notes Therapy Depression (O) Description: Assess and monitor for signs and symptoms of depression. Problem:THERAPY DISEASE MANAGEMENT (O) Completed Patient shows signs of depression yes Symptoms reported to physician aware OT Evaluation (Order Only) Description: Pt was hospitalized at [facility] from 02/18/24-02/23/24 with c/o R knee pain. [...] ORDER (O) Goal:Occupational Therapy General Completed OT Meal Prep Description: Instruct on meal prep techniques and safety. Equipment as needed. Problem:OT COMPREHENSIVE Goal:OT Meal Prep Therapist recommended use of bar stool beside stove PRN and placed through kitchen to allow patient to sit PRN for pain relieve , energy conservation. OT Toileting Description: Instruct on toileting techniques and safety. Assistive device as needed. Problem:OT COMPREHENSIVE Goal:OT Toileting Completed Pt complete toileting with independence . OT Dressing Description: Instruct on dressing techniques and safety. ADL equipment as needed. Problem:OT COMPREHENSIVE Goal:OT Dressing Completed Pt reports spouse assists with LB but that she does have AE and can do it if she wanted OT Bathing Description: Instruct on bathing techniques and safety. ADL equipment as needed. Problem:OT COMPREHENSIVE Goal:OT Bathing Completed Pt reports spouse assists with LB but that she does have AE and can do it if she wanted OT Activity Tolerance Description: Instruct on activity tolerance techniques. Problem:OT COMPREHENSIVE Goal:OT Activity Tolerance Completed Pt completed toileting and seated UB HEP with 3L o2 and o2 wfl OT Transfers Description: Instruct on transfer techniques and safety. Equipment as needed. Problem:OT COMPREHENSIVE Goal:OT Transfers Completed Patient performed transfer with adaptive equipment of 2WW, RTS with supervision/CGA d/t pain in right knee and good activity tolerance. Caregiver training provided n/a. Skill provided to improve this function consisted of patient ed on TTWB PRN for knee pain/relief and safety with walker. therapist recommended removal of all rug in master bath, patient reports spouse declines . hallway bathroom transfer with CGA /supervision with RTS. Compliance of follow through is fair. Progress toward goal: ongoing OT Home Exercise Program Description: Instruct on Home Exercise Program. Problem:OT COMPREHENSIVE Goal:OT Home Exercise Program Completed Patient performed UE Strengthening HEP with verbal cues and good activity tolerance. Caregiver training provided n/a. Skill provided to improve this function consisted of Therapist educated patient on B UE AROM for shoulder flex/ext, ab/adduction, hab/had, elbow flex/ext, sup/pronation, wrist flex/ext. Patient completed 10 reps x1 set utilizing canned and instructed to complete 2 sets dailay. Patient educated on counting outloud/ paced breathing and rest breaks PRN to facilitate increase ROM, strength and endurance required for ADL routine and functional mobility.. Compliance of follow through is fair. Progress toward goal: ongoing documented in this encounter Care Teams Sports Specialist Relationship Specialty Start Date End Date Watson Perry MD [address] [place] [address] PCP - General Family Medicine 01/25/18 Adeel Covarrubias MD [address] [place] [address] Consulting Physician Neurology 03/07/22 documented as of this encounter
--- OUTSIDE RECORDS SUMMARY | 2024-11-23 15:06 | XMS_ITS | Encounter Summary ---
Author Organization [facility] Address [address] [address] Phone Care Team Providers Care L Tacker Name Role Phone Watson Perry MD Primary Care Provider [phone] Adeel Covarrubias MD Unavailable [phone] Reason for Visit * Auth/Cert (Routine) Specialty Diagnoses / Procedures Referred By Contac t Referred To Contact Referral ID Status Reason Start Date Expiration Date Visits Re quested Visits Authorized [id number] 1 1 Encounter Details Date Type Department Care Team (Late st Contact Info) Description 03/20/2024 9:00 AM CDT [facility] [address] [place] [address] Meenakshi Gilbert OTA [place] OT - HOME VISIT Social History Tobacco [...] on file Legal Sex Female 9:54 AM VETERINARY MEDICAL OFFICER Gender Identity Not on file Sexual Orientation Not on file documented as of this encounter Last Filed Vital Signs Vital Sign Reading Time Taken Comments Blood Pressure 104/70 03/20/2024 9:02 AM CDT Pulse 72 03/20/2024 9:02 AM CDT Temperature 36.3 ??C (97.4 ??F) 03/20/2024 9:02 AM CD T Respiratory Rate 18 03/20/2024 9:02 AM CDT Oxygen Saturation 94% 03/20/2024 9:02 AM CDT 3L Inhaled Oxygen Concentration - - Weight - - Height - - Body Mass Index - - documented in this encounter Plan of Treatment Upcoming Encounters Date Type Department Care Team (Late st Contact Info) Description 12/18/2024 2:15 PM VETERINARY MEDICAL OFFICER Office Visit [facility] - [facility]rology - [place] [address] [place] [address] Adeel Covarrubias MD [address] [place] [address] documented as of this encounter Visit Diagnoses [...] OT COMPREHENSIVE Disciplines: Occupational Therapy 03/06/2024 Active 3 goals linked to scheduled/document ed interventions 3 goal interventions scheduled/documen zen in this visit Goals Goal Associated Problem Outcome Goal Met? Visit Notes Occupational Therapy General Description: After assessing the patient and discussing the patient's goals the following were identified. Patient Centered Welding Technician Goal: to get stronger Target date: within 6 weeks OCCUPATIONAL THERAPY GENERAL ORDER (O) No OT Balance Description: Short Term Goal: Patient will improve dynamic standing balance from fair - to fair with recommended DME prn to perform ADLs, IADLs, mobilities with good understanding of safety/technique. To be met by 03/21/24. Welding Technician Goal: Patient will improve dynamic standing balance [...] functional independence. to be met by 03/21/24 meterman goal: Patient will complete tub/shower, chair, toilet and functional transfers/mobilities for ADLs with adaptive equipment/tech prn with independence in order to decrease risk of falls and increase functional independence. to be met by 03/28/24 OT COMPREHENSIVE No Interventions Intervention Associated Problem/Goal Status Variance Visit Notes Therapy Depression (O) Description: Assess and monitor for signs and symptoms of depression. Problem:THERAPY DISEASE MANAGEMENT (O) Completed Patient shows signs of depression yes Symptoms reported to physician MD aware OT Evaluation (Order Only) Description: Pt was hospitalized at [facility] from 02/18/24-02/23/24 with c/o R knee [...] ORDER (O) Goal:Occupational Therapy General Completed OT Balance Description: Instruct on balance techniques and safety. Equipment as needed. Problem:OT COMPREHENSIVE Goal:OT Balance Completed Patient performed balance activity for dynamic standing with walker to perform outdoor gardening with Fair/Fair+ balance and good activity tolerance. Caregiver training provided n/a Skill provided to improve this function consisted of patient completed weeding outdoors with walker and sitting PRN for reaching cross midline, wide, narrow NONI . Patient ed on how to use middle walker bar for stability for reaching PRN. Sitting in chair PRN for rest breaks . Compliance of follow through is good. Progress toward goal: ongoing OT Activity Tolerance Description: Instruct on activity tolerance techniques. Problem:OT COMPREHENSIVE Goal:OT Activity Tolerance Completed Pt tolerated outdoor activity for 40 minutes with 2 seated rest breaks and good activity tolerance . pain is limiting mobility at this time. OT Transfers Description: Instruct on transfer techniques and safety. Equipment as needed. Problem:OT COMPREHENSIVE Goal:OT Transfers Completed Pt ambulating outdoors with 4WW and v/c for keeping brakes locked PRN and use to sit while completing IADL . pt tolerated well and may purchase 4WW for carrryover . documented in this encounter Care Teams L Tacker Relationship Specialty Start Date End Date Watson Perry MD [address] [place] [address] PCP - General Family Medicine 01/25/18 Adeel Covarrubias MD [address] [place] [address] Consulting Physician Neurology 03/07/22 documented as of this encounter
--- OUTSIDE RECORDS SUMMARY | 2024-11-23 15:06 | XMS_ITS | Encounter Summary ---
Author Organization [facility] Address [address] [place] [address] Phone Care Team Providers Care Master Scheduler Name Role Phone Watson Perry MD Primary Care Provider [phone] Adeel Covarrubias MD Unavailable [phone] Reason for Visit * Auth/Cert (Routine) Specialty Diagnoses / Procedures Referred By Contac t Referred To Contact Referral ID Status Reason Start Date Expiration Date Visits Re quested Visits Authorized [id number] 1 1 Encounter Details Date Type Department Care Team (Late st Contact Info) Description 03/25/2024 10:00 AM CDT [facility] [address] [place] [address] Katlin Whelan, BUTTON PUSHER [place] PT - HOME VISIT Social History [...] on file Legal Sex Female 9:54 AM PLASTIC CUTTER Gender Identity Not on file Sexual Orientation Not on file documented as of this encounter Last Filed Vital Signs Vital Sign Reading Time Taken Comments Blood Pressure 104/64 03/25/2024 10:54 AM CDT Pulse 68 03/25/2024 10:54 AM CDT Temperature 36.3 ??C (97.3 ??F) 03/25/2024 10:54 AM C DT Respiratory Rate 16 03/25/2024 10:54 AM CDT Oxygen Saturation 94% 03/25/2024 10:54 AM CDT 3 L of O2 Inhaled Oxygen Concentration - - Weight - - Height - - Body Mass Index - - documented in this encounter Plan of Treatment Upcoming Encounters Date Type Department Care Team (Late st Contact Info) Description 12/18/2024 2:15 PM PLASTIC CUTTER [facility] [address] [place] [address] Adeel Covarrubias MD [address] [place] [address] documented as of this encounter Visit Diagnoses [...] Clinicians 03/05/2024 Active 1 goal linked to scheduled/document ed intervention 1 goal intervention scheduled/documen zen in this visit Goals Goal Associated Problem Outcome Goal Met? Visit Notes Physical Therapy Evaluation Description: After assessing the patient and discussing the patient's goals the following were identified: Patient centered care home goal: to improve balance. Target Date: by [...] be met by 04/05/24. PT COMPREHENSIVE No Pain Management/Education Description: Shared goal applicable to all disciplines with visit frequency order. Patient's pain level will remain at an acceptable level of 0 or lower with current pain medications/interventions. Target date: within 4 weeks PAIN-MANAGEMENT/EDUCATION No Interventions Intervention Associated Problem/Goal Status Variance Visit Notes Therapy Depression (O) Description: Assess and monitor for signs and symptoms of depression. Problem:THERAPY DISEASE MANAGEMENT (O) Completed Patient shows signs of depression no Symptoms reported to physician no symptoms). Therapy COPD Disease Management (O) Description: Monitor for symptoms of COPD exacerbation and report to nurse or physician. Problem:THERAPY DISEASE MANAGEMENT (O) Completed COPD exacerbation symptoms exhibited none. Action taken n/a Physical Therapy General (Order Only) Description: Clinical findings: 74 y/o female who presents to [facility] after hospitalization at [facility] from 02/18/24-02/23/24 with c/o R knee [...] fall risk. Problem:PT COMPREHENSIVE Goal:PT Balance Completed Balance training provided this date Static/dynamic standing for 3 min x 2 with bilateral upper extremity support on walker while preforming ADL's requiring reaching in midline and outside NONI. Supervision provided with cues for balance stabilization and foot placement. Patient had no LOB during this activity. Tinetti balance assessment preformed with score of 21/28. Instruction provided to Patient. Response verbalize understanding. PT Edema Management Description: Instruct on edema management techniques. Problem:PT COMPREHENSIVE Goal:PT Edema Management Completed Edema management instruction for right LE Instructed on Edema management [...] Completed Provided skilled training on 3 steps off back porch with use of walker- and door frame with supervision. Skills provided: Verbal cues consisting of ascend with left LE lead and descend with right LE lead. Tolerance to activity good. Instruction provided to Patient and Caregiver daughter. Response verbalize understanding, return demonstration. Progress toward goal: ongoing PT Ambulation Description: Provide gait training for increased safety and efficiency. Progress per patient tolerance and safety. Problem:PT COMPREHENSIVE Goal:PT Ambulation Completed Patient ambulated with supervision for postural cues for 200 feet inside/outside home with use of 2 wheel walker performing WBAT R lower extremity over even surfaces with the following gait characteristics slow pace, decreased right knee extension, minimal heal strike and toe off B LE. Patient had c/o 4/10 posterior right knee pain with weight bearing. Skills provided: Cues for upright posture, increased right knee extension with single leg stance, increased heal toe patterning and O2 tube management. Tolerance to activity modified Kate rating 1/10 and pulse ox reading 94% on 3 L of O2. Instruction provided to Patient. PT Transfers Description: Instruct in proper safety and transfer technique. Problem:PT COMPREHENSIVE Goal:PT Transfers Completed Transfer training provided this date Sit to/from stand from kitchen stool and couch. Level of support required for safety with supervision. Assistive devices used: Front wheeled walker Skill provided Proper hand placement Tolerance to activity good Instruction provided to Patient and Caregiver daughter. Response verbalize understanding and return demonstration. Progress toward goal: ongoing PT Therapeutic Exercise Description: Instruct on therapeutic exercise. Progress as tolerated. Problem:PT COMPREHENSIVE Goal:PT Strength Completed Therapeutic exercise instruction this date in reclined supine/siting/standi ng HEP off of provided handouts. Pt was instructed in and performed 15 reps of LE exercises in supine (AROM) : ankle pumps, quad sets, glute sets, heel slides, hip abd/add, SAQ. Sitting (AROM): included ankle pumps, LAQ's, hip flexion, hip abduction all x 15 reps. Standing (AROM) included heal/toe raises, straight leg hip extension, hip abduction, hamstring curls, single knee marching, and mini squats all x 10 reps. Verbal cues for proper breathing technique, engaging core musculature for support, and slower performance with 3 sec pause at end of range for optimal benefit of exercises - good return demo. She reports increase in pain right knee and left hip pain when performing standing exercises. LE HEP performed to promote improved B LE strength for carry-over into functional mobility. Recommended She perform his LE HEP 2x daily for continued strengthening. Skills provided: ongoing instruction in technique, 15 reps 2 x daily. Home Exercise Program issued provided at this visit Instruction provided to Patient. PT HEP Progression Description: Instruct on home exercise program. Progress as tolerated. Problem:PT COMPREHENSIVE Goal:PT HEP Completed Home Exercise Program issued for siting, supine and standidng HEP with provision of handouts at prior visit. Instruction in standing HEP at this visit with provision of hand outs. Instruction provided to Patient. Response verbalize understanding, return demonstration and additional education required Pain Management/Education (O) Description: Instruct patient/ caregiver on strategies to manage pain. Problem:PAIN-MANAGEME NT/EDUCATION Goal:Pain Management/Education Completed Pain management plan: 1. Set a [...] breathing to assist with focus. Instruction provided to Patient. Response verbalize understanding. documented in this encounter Care Teams Master Scheduler Relationship Specialty Start Date End Date Watson Perry MD [address] [place] [address] PCP - General Family Medicine 01/25/18 Adeel Covarrubias MD [address] [place] [address] Consulting Physician Neurology 03/07/22 documented as of this encounter
--- OUTSIDE RECORDS SUMMARY | 2024-11-23 15:06 | XMS_ITS | Encounter Summary ---
Author Organization [facility] Care Team Providers Care Airport Representative Name Role Phone Watson Perry MD Primary Care Provider [phone] Adeel Covarrubias MD Unavailable [phone] Encounter Details Date Type Department Care Team (Latest Contact Info) Description 10/27/2023 Travel Social History Tobacco Use Types Packs/Day [...] on file Legal Sex Female 9:54 AM COCONUT CANDY MAKER Gender Identity Not on file Sexual Orientation Not on file documented as of this encounter Plan of Treatment Upcoming Encounters Date Type Department Care Team (Late st Contact Info) Description 12/18/2024 2:15 PM COCONUT CANDY MAKER Office Visit [facility] - Neurology [facility] [address] [place] [address] Adeel Covarrubias MD [address] [place] [address] documented as of this encounter Visit Diagnoses Not on filedocumented in this encounter Care Teams Airport Representative Relationship Specialty Start Date End Date Watson Perry MD [address] [place] [address] PCP - General Family Medicine 01/25/18 Adeel Covarrubias MD [address] [place] [address] Consulting Physician Neurology 03/07/22 documented as of this encounter
--- OUTSIDE RECORDS SUMMARY | 2024-11-23 15:06 | XMS_ITS | Encounter Summary ---
Author Organization [facility] Care Team Providers Care Diesel Dinkey Engineer Name Role Phone Watson Perry MD Primary Care Provider [phone] Adeel Covarrubias MD Unavailable [phone] Encounter Details Date Type Department Care Team (Latest Contact Info) Description 03/18/2024 Travel Social History Tobacco Use Types Packs/Day [...] on file Legal Sex Female 9:54 AM DENTAL OFFICE RECEPTIONIST Gender Identity Not on file Sexual Orientation Not on file documented as of this encounter Plan of Treatment Upcoming Encounters Date Type Department Care Team (Late st Contact Info) Description 12/18/2024 2:15 PM DENTAL OFFICE RECEPTIONIST Office Visit [facility] - Neurology [facility] [address] [place] [address] Adeel Covarrubias MD [address] [place] [address] documented as of this encounter Visit Diagnoses Not on filedocumented in this encounter Care Teams Diesel Dinkey Engineer Relationship Specialty Start Date End Date Watson Perry MD [address] [place] [address] PCP - General Family Medicine 01/25/18 Adeel Covarrubias MD [address] [place] [address] Consulting Physician Neurology 03/07/22 documented as of this encounter
--- OUTSIDE RECORDS SUMMARY | 2024-11-23 15:06 | XMS_ITS | Encounter Summary ---
Author Organization [facility] Address [address] [place] [address] Phone Care Team Providers Care Binder Stripper Machine Name Role Phone Watson Perry MD Primary Care Provider [phone] Adeel Covarrubias MD Unavailable [phone] Reason for Visit * Auth/Cert (Routine) Specialty Diagnoses / Procedures Referred By Contac t Referred To Contact Referral ID Status Reason Start Date Expiration Date Visits Re quested Visits Authorized [id number] 1 1 Encounter Details Date Type Department Care Team (Late st Contact Info) Description 03/17/2024 9:00 AM CDT [facility] [address] [place] [address] Meenakshi Gilbert OTA MD OT - HOME VISIT Social History Tobacco [...] file Legal Sex Female 9:54 AM CLINICAL OB Gender Identity Not on file Sexual Orientation Not on file documented as of this encounter Last Filed Vital Signs Vital Sign Reading Time Taken Comments Blood Pressure 118/70 03/17/2024 8:59 AM CDT Pulse 63 03/17/2024 8:59 AM CDT Temperature 36.8 ??C (98.3 ??F) 03/17/2024 8:59 AM CD T Respiratory Rate 18 03/17/2024 8:59 AM CDT Oxygen Saturation 95% 03/17/2024 8:59 AM CDT 3L Inhaled Oxygen Concentration - - Weight - - Height - - Body Mass Index - - documented in this encounter Plan of Treatment Upcoming Encounters Date Type Department Care Team (Late st Contact Info) Description 12/18/2024 2:15 PM CLINICAL OB [facility] [place] [address] [place] [address] Adeel Covarrubias MD [address] [place] [address] documented as of this encounter Visit Diagnoses [...] OT COMPREHENSIVE Disciplines: Occupational Therapy 03/06/2024 Active 4 goals linked to scheduled/document ed interventions 4 goal interventions scheduled/documen zen in this visit Goals Goal Associated Problem Outcome Goal Met? Visit Notes Occupational Therapy General Description: After assessing the patient and discussing the patient's goals the following were identified. Patient Centered Spa Supervisor Goal: to get stronger Target date: within 6 weeks OCCUPATIONAL THERAPY GENERAL ORDER (O) No OT Meal Prep Description: Care Home Goal: Patient will complete meal preparation/functional kitchen mobility at standing level with walker, seated walker, walker basket/tray and other recommended DME/equip/tech prn with independence and good understanding of safety/technique. To be met by 03/28/24 OT COMPREHENSIVE No OT Dressing Description: Spa Supervisor Goal: Patient will perform/simulate dry run/demonstrate prn complete total body dressing with recommended adap equip/tech/DME prn with independence and good understanding of safety/technique. To be met by 03/28/24 OT COMPREHENSIVE No OT Balance Description: Short Term Goal: Patient will improve dynamic standing balance from fair - to fair with recommended DME prn to perform ADLs, IADLs, mobilities with good understanding of safety/technique. To be met by 03/21/24. Spa Supervisor Goal: Patient will improve dynamic standing balance [...] be met by 03/21/24. OT COMPREHENSIVE No Interventions Intervention Associated Problem/Goal Status Variance Visit Notes Therapy Depression (O) Description: Assess and monitor for signs and symptoms of depression. Problem:THERAPY DISEASE MANAGEMENT (O) Completed Patient shows signs of depression yes Symptoms reported to physician MD aware OT Evaluation (Order Only) Description: Pt was hospitalized at [facility] from 02/18/24-02/23/24 with c/o R knee pain. [...] as needed. Problem:OT COMPREHENSIVE Goal:OT Meal Prep Completed Patient performed meal prep with walker and walker basket/tray with independence and good activity tolerance. Caregiver training provided n/a. Skill provided to improve this function consisted of Therapist educated patient on kitchen mobility including simple meal prep simulation with verbal instructions and education on safety , energy conservation, work simplification techniques to increase ease and independence. Patient educated on sitting when possible on chair/walker/stool , use of countertops for stabalization when reaching hi/low, avoiding twisting and overreaching, keeping frequently used items out or in easily accessible area, taking rest breaks and asking for help PRN. Patient verbalized good understanding of recommendations.. Compliance of follow through is good. Progress toward goal: ongoing OT Dressing Description: Instruct on dressing techniques and safety. ADL equipment as needed. Problem:OT COMPREHENSIVE Goal:OT Dressing Completed pt reports she has sock aide and tape calender to assist with LB dressing PRN . pt states her assists PRN because i want him to . OT Balance Description: Instruct on balance techniques and safety. Equipment as needed. Problem:OT COMPREHENSIVE Goal:OT Balance Completed Patient performed balance activity for dynamic standing with walker and without to perform laundry with Fair balance and fair activity tolerance. Caregiver training provided n/a. Skill provided to improve this function consisted of Patient participated in dynamic standing balance activities while reaching cross midline and outside of NONI with varying with wide, narrow NONI. Patient demonstrated fair dynamic standing balance with item retrieval from floor with tape calender, ed on walker placement and use of 4WW and 2WW and educated on weight shifting and techniques to increase stability and balance with good retrun verbalization/demonstr ation. Patient reports difficulty with balance d/t tremors . therpaist ed on safety and wide NONI, weight shifting for pain management Compliance of follow through is good. Progress toward goal: ongoing OT Activity Tolerance Description: Instruct on activity tolerance techniques. Problem:OT COMPREHENSIVE Goal:OT Activity Tolerance Completed Patient performed standing balance and kitchen mobility/laundry task for 30 minutes while taking few rest breaks.The Modified JOHN score with this task is 5/10. Skill provided to improve this function consisted of pacing self, PLB , sitting when possible. Compliance of follow through is good. Progress toward goal: ongoing documented in this encounter Care Teams Binder Stripper Machine Relationship Specialty Start Date End Date Watson Perry MD [address] [place] [address] PCP - General Family Medicine 01/25/18 Adeel Covarrubias MD [address] [place] [address] Consulting Physician Neurology 03/07/22 documented as of this encounter
--- OUTSIDE RECORDS SUMMARY | 2024-11-23 15:06 | XMS_ITS | Encounter Summary ---
Author Organization [facility] Address [address] [place] [address] Phone Care Team Providers Care Corporate Legal Manager Name Role Phone Watson Perry MD Primary Care Provider [phone] Adeel Covarrubias MD Unavailable [phone] Reason for Visit * Auth/Cert (Routine) Specialty Diagnoses / Procedures Referred By Contac t Referred To Contact Referral ID Status Reason Start Date Expiration Date Visits Re quested Visits Authorized [id number] 1 1 Encounter Details Date Type Department Care Team (Late st Contact Info) Description 03/12/2024 12:00 PM CDT [facility] [address] [place] [address] Katlin Whelan, ELECTRICIAN CHIEF [place] PT - HOME VISIT Social History [...] on file Legal Sex Female 9:54 AM MARINE ENGINE MECHANIC Gender Identity Not on file Sexual Orientation Not on file documented as of this encounter Last Filed Vital Signs Vital Sign Reading Time Taken Comments Blood Pressure 110/68 03/12/2024 12:16 PM CDT Pulse 72 03/12/2024 12:16 PM CDT Temperature 36.3 ??C (97.3 ??F) 03/12/2024 12:16 PM C DT Respiratory Rate 16 03/12/2024 12:16 PM CDT Oxygen Saturation 93% 03/12/2024 12:16 PM CDT 3L of O2 Inhaled Oxygen Concentration - - Weight - - Height - - Body Mass Index - - documented in this encounter Plan of Treatment Upcoming Encounters Date Type Department Care Team (Late st Contact Info) Description 12/18/2024 2:15 PM MARINE ENGINE MECHANIC [facility] - [place] [address] [place] [address] Adeel Covarrubias MD [address] [place] [address] documented as of this encounter Visit Diagnoses [...] goals the following were identified: Patient centered jail goal: to improve balance. Target Date: by [...] to [facility] after hospitalization at [facility] from 02/18/24-02/23/24 with c/o R knee [...] this date Static/dynamic standing for 3 min while preforming ADL's requiring reaching in midline and outside NONI. Supervision provided with cues for balance stabilization and foot placement. Patient had no LOB during this activity. Instruction provided to Patient. Response verbalize understanding. [...] Home Exit Not addressed at this visit PT Ambulation Description: Provide gait training for increased safety and efficiency. Progress per patient tolerance and safety. Problem:PT COMPREHENSIVE Goal:PT Ambulation Completed Patient ambulated with stand by assistance 50 feet x 2 and 30 feet x 1 with use of 2 wheel walker. WBAT R lower extremity over even surfaces with the following gait characteristics slow pace with deacreased weight bearing, single leg stance, deacreased knee flexion during swing phase right LE with pateint reporting sever knee pain with weight bearing. Skills provided: Tolerance to activity modified Kate rating 5/10 and pulse ox reading 94%. Instruction provided to Patient. Response verbalize understanding, return demonstration and additional education required. Progress toward goal: ongoing PT Transfers Description: Instruct in proper safety [...] exercises - good return demo. She reports mild increase in pain when performing exercises. LE HEP performed to promote improved B LE strength for carry-over into functional mobility. Recommended she perform LE HEP 2x daily for continued strengthening. Skills provided: ongoing instruction in technique, 10 reps 2 x daily. Home Exercise Program issued provided at this visit Instruction provided to Patient. PT HEP Progression Description: Instruct on home exercise program. Progress as tolerated. Problem:PT COMPREHENSIVE Goal:PT HEP Completed Home Exercise Program issued for siting and supine HEP with provision of handouts. Instruction provided to Patient. Response verbalize understanding, return demonstration and additional education required. documented in this encounter Care Teams Corporate Legal Manager Relationship Specialty Start Date End Date Watson Perry MD [address] [place] [address] PCP - General Family Medicine 01/25/18 Adeel Covarrubias MD [address] [place] [address] Consulting Physician Neurology 03/07/22 documented as of this encounter
--- OUTSIDE RECORDS SUMMARY | 2024-11-23 15:06 | XMS_ITS | Encounter Summary ---
Author Organization [facility] Address [address] [place] [address] Phone Care Team Providers Care Logistics Manager Name Role Phone Watson Perry MD Primary Care Provider [phone] Adeel Covarrubias MD Unavailable [phone] Reason for Visit * Auth/Cert (Routine) Specialty Diagnoses / Procedures Referred By Contac t Referred To Contact Referral ID Status Reason Start Date Expiration Date Visits Re quested Visits Authorized [id number] 1 1 Encounter Details Date Type Department Care Team (Late st Contact Info) Description 03/21/2024 10:00 AM CDT [facility] [address] [place] [address] Katlin Whelan, DATABASE TECHNICIAN [place] PT - HOME VISIT Social History [...] on file Legal Sex Female 9:54 AM BOLT SORTER Gender Identity Not on file Sexual Orientation Not on file documented as of this encounter Last Filed Vital Signs Vital Sign Reading Time Taken Comments Blood Pressure 128/69 03/21/2024 10:15 AM CDT Pulse 68 03/21/2024 10:15 AM CDT Temperature 36.4 ??C (97.5 ??F) 03/21/2024 10:15 AM C DT Respiratory Rate 16 03/21/2024 10:15 AM CDT Oxygen Saturation 99% 03/21/2024 10:15 AM CDT Inhaled Oxygen Concentration - - Weight - - Height - - Body Mass Index - - documented in this encounter Plan of Treatment Upcoming Encounters Date Type Department Care Team (Late st Contact Info) Description 12/18/2024 2:15 PM BOLT SORTER [facility] - [place] [address] [place] [address] Adeel Covarrubias MD [address] [place] [address] documented as of this encounter Visit Diagnoses Not on filedocumented in this encounter Home Health Visit - Care Plan Visit Details Visit Type -PT - HOME VISIT Discipline -Physical Therapy Problems Problem Description Start Date Status Goals Interve ntions THERAPY DISEASE MANAGEMENT (O) Disciplines: Physical Therapy 03/05/2024 Active - 2 problem interventions scheduled/documen zen in this visit PT DISCHARGE/REASS ESSMENT Disciplines: Physical Therapy PT Discharge 03/05/2024 Active - 1 problem intervention scheduled/documen zen [...] goals the following were identified: Patient centered intermediate accountant goal: to improve balance. Target Date: by [...] exacerbation symptoms exhibited none. Action taken n/a Notice Of Discharge Description: Complete Notice of Discharge documentation three days prior to agency discharge Problem:PT DISCHARGE/REASSESSM ENT Completed Notice of discharge signed by Patient. Agrees with plan for discharge on 03/26/24. Supervising PT notified of patients request for D/C 0n 03/26/24 via CC note and agrees with discharge plan. Physical Therapy General (Order Only) Description: Clinical findings: 74 y/o female who presents to [facility] after hospitalization at [facility] from 02/18/24-02/23/24 with c/o R knee pain. [...] ADL's requiring reaching in midline and outside ONNI. Supervision provided with cues for balance stabilization [...] Home Exit Not addressed at this visit Raining at time of visit and patient refused to perform steps in garage stating she always uses steps off back porch. PT Ambulation Description: Provide gait training for increased safety and efficiency. Progress per patient tolerance and safety. Problem:PT COMPREHENSIVE Goal:PT Ambulation Completed Patient ambulated with supervision for 80 feet inside home due to rain at time of visit with use of 2 wheel walker WBAT R lower extremity over even surfaces with the following gait characteristics slow pace, decreased right knee extention, minimal heal strike and toe off B LE. Patient had c/o 8/10 posterior right knee pain with weight bearing. Skills provided: Tolerance to activity modified Kate rating 5/10 and pulse ox reading 94% on 3 L of O2. Instruction provided to Patient. PT Transfers Description: Instruct in proper safety and transfer technique. Problem:PT COMPREHENSIVE Goal:PT Transfers Completed Transfer training provided this date Sit to/from stand from couch recliner with B arm rests and commode. Level of support required for safety supervision. Assistive devices used: Front wheeled walker chair arm rests. Skill provided Initial instruction in safety and technique, Proper hand and foot placement and Sequencing with cues for forward propulsion Tolerance to activity good Instruction provided to Patient. Response verbalize understanding, [...] required. documented in this encounter Care Teams Logistics Manager Relationship Specialty Start Date End Date Watson Perry MD [address] [place] [address] PCP - General Family Medicine 01/25/18 Adeel Covarrubias MD [address] [place] [address] Consulting Physician Neurology 03/07/22 documented as of this encounter
--- OUTSIDE RECORDS SUMMARY | 2024-11-23 15:06 | XMS_ITS | Encounter Summary ---
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 Gender Identity Not on file Sexual Orientation Not on file documented as of this encounter Plan of Treatment Upcoming Encounters Date Type Department Care Team (Late st Contact Info) Description 12/18/2024 2:15 PM SALARY AND WAGE ADMINISTRATOR Office Visit [facility] - Neurology [facility] [address] [place] [address] Adeel Covarrubias MD [address] [place] [address] documented as of this encounter Visit Diagnoses Not on filedocumented in this encounter Care Teams Junior Qa Analyst Relationship Specialty Start Date End Date Watson Perry MD [address] [place] [address] PCP - General Family Medicine 01/25/18 Adeel Covarrubias MD [address] [place] [address] Consulting Physician Neurology 03/07/22 documented as of this encounter
--- OUTSIDE RECORDS SUMMARY | 2024-11-23 15:06 | XMS_ITS | Encounter Summary ---
Author Organization [facility] Address [address] [place] [address] Phone Care Team Providers Care Railroad Crossing Protection Maintainer Name Role Phone Watson Perry MD Primary Care Provider [phone] Adeel Covarrubias MD Unavailable [phone] Reason for Visit * Auth/Cert (Routine) Specialty Diagnoses / Procedures Referred By Contac t Referred To Contact Referral ID Status Reason Start Date Expiration Date Visits Re quested Visits Authorized [id number] 1 1 Encounter Details Date Type Department Care Team (Late st Contact Info) Description 03/06/2024 2:00 PM CDT [facility] [address] [place], [place] [id number] Mariaelena Virk, OT OT - INITIAL EVALUATION Social History Tobacco Use [...] on file Legal Sex Female 9:54 AM MENU PLANNER Gender Identity Not on file Sexual Orientation Not on file documented as of this encounter Last Filed Vital Signs Vital Sign Reading Time Taken Comments Blood Pressure 104/60 03/06/2024 2:30 PM CDT Pulse 64 03/06/2024 2:30 PM CDT Temperature 36.1 ??C (97 ??F) 03/06/2024 2:30 PM CDT Respiratory Rate 18 03/06/2024 2:30 PM CDT Oxygen Saturation 96% 03/06/2024 2:30 PM CDT 3L O2 Inhaled Oxygen Concentration - - Weight - - Height - - Body Mass Index - - documented in this encounter Plan of Treatment Upcoming Encounters Date Type Department Care Team (Late st Contact Info) Description 12/18/2024 2:15 PM MENU PLANNER Office Visit [facility] - Neurology - [place] [address] [place] [phone] Adeel Coavrrubias MD [address] [place] [address] documented as of this encounter Visit Diagnoses Not on filedocumented in this encounter Home Health Visit - Care Plan Visit Details Visit Type -OT - INITIAL MANI LUATION Discipline -Occupational Therapy Problems Problem Description Start Date Status Goals Interve ntions FALL PREVENTION (O) Disciplines: SN, PT, OT, IT SUPPORT CONSULTANT, HCA, FORGING PRESS SETTER UP, RT 03/05/2024 Active 1 goal linked to scheduled/documen zen intervention 1 goal intervention scheduled/document ed in this visit ALL HH VITAL SIGN PARAMETERS Disciplines: All Home Care 03/05/2024 Active - 1 problem intervention scheduled/document ed in this visit THERAPY DISEASE MANAGEMENT (O) Disciplines: Occupational Therapy 03/06/2024 Active - 3 problem interventions scheduled/document ed in this visit OCCUPATIONAL THERAPY GENERAL ORDER (O) Disciplines: Occupational Therapy Occupational Therapy General Order 03/06/2024 Active 1 goal linked to scheduled/documen zen intervention 1 goal intervention scheduled/document ed in this visit Goals Goal Associated Problem Outcome Goal Met? Visit Notes Fall Prevention Description: Shared goal applicable to all disciplines with a visit frequency order. Patient/ Caregiver will verbalize understanding of identified fall risk based on [facility]-10 Fall Risk assessment and methods to prevent falls. Target date: by 03/15/24(date) FALL PREVENTION (O) No Occupational Therapy General Description: After assessing the patient and discussing the patient's goals the following were identified. Patient Centered Vocational Coordinator Goal: to get stronger Target date: within 6 weeks OCCUPATIONAL THERAPY GENERAL ORDER (O) No Interventions Intervention Associated Problem/Goal Status Variance [...] measures. Problem:ALL HH VITAL SIGN PARAMETERS Completed Therapy Depression (O) Description: Assess and monitor for signs and symptoms of depression. Problem:THERAPY DISEASE MANAGEMENT (O) Completed Patient shows signs of depression no Therapy COPD Disease Management (O) Description: Monitor for symptoms of COPD exacerbation and report to nurse or physician. Problem:THERAPY DISEASE MANAGEMENT (O) Completed COPD exacerbation symptoms exhibited none. Action taken: n/a Therapy Pressure Injury Prevention (Order Only) Description: Instruct on pressure injury prevention techniques and safety. Provide/apply moisture barrier to protect from incontinence as needed based on pressure injury risk assessment. Problem:THERAPY DISEASE MANAGEMENT (O) Completed OT Evaluation (Order Only) Description: Pt was hospitalized at [facility] from 02/18/24-02/23/24 with c/o R knee [...] GENERAL ORDER (O) Goal:Occupational Therapy General Completed documented in this encounter Home Health Visit - Actions and Narratives Narratives Pt was hospitalized at [facility] from 02/18/24-02/23/24 with c/o R knee [...] work so she is home by herself. documented in this encounter Care Teams Railroad Crossing Protection Maintainer Relationship Specialty Start Date End Date Watson Perry MD [address] [place] [address] PCP - General Family Medicine 01/25/18 Adeel Covarrubias MD [address] [place] [address] Consulting Physician Neurology 03/07/22 documented as of this encounter
--- OUTSIDE RECORDS SUMMARY | 2024-11-23 15:06 | XMS_ITS | Encounter Summary ---
Author Organization [facility] Care Team Providers Care Registered Land Surveyor Name Role Phone Watson Perry MD Primary Care Provider [phone] Adeel Covarrubias MD Unavailable [phone] Encounter Details Date Type Department Care Team (Latest Contact Info) Description 03/05/2024 Travel Social History Tobacco Use Types Packs/Day [...] on file Legal Sex Female 9:54 AM MOTOR EXPRESS CLERK Gender Identity Not on file Sexual Orientation Not on file documented as of this encounter Plan of Treatment Upcoming Encounters Date Type Department Care Team (Late st Contact Info) Description 12/18/2024 2:15 PM MOTOR EXPRESS CLERK Office Visit [facility] - Neurology [facility] [address] [place] [address] Adeel Covarrubias MD [address] [place] [address] documented as of this encounter Visit Diagnoses Not on filedocumented in this encounter Care Teams Registered Land Surveyor Relationship Specialty Start Date End Date Watson Perry MD [address] [place] [address] PCP - General Family Medicine 01/25/18 Adeel Covarrubias MD [address] [place] [address] Consulting Physician Neurology 03/07/22 documented as of this encounter
--- OUTSIDE RECORDS SUMMARY | 2024-11-23 15:06 | XMS_ITS | Encounter Summary ---
Author Organization [facility] Address [address] [place] [address] Phone Care Team Providers Care Director It Project Name Role Phone Watson Perry MD Primary Care Provider [phone] Adeel Covarrubias MD Unavailable [phone] Reason for Visit * Auth/Cert (Routine) Specialty Diagnoses / Procedures Referred By Contac t Referred To Contact Referral ID Status Reason Start Date Expiration Date Visits Re quested Visits Authorized [id number] 1 1 Encounter Details Date Type Department Care Team (Late st Contact Info) Description 03/18/2024 9:30 AM CDT [facility] [address] [place] [address] Katlin Whelan, SAT INSTRUCTOR [place] PT - HOME VISIT Social History [...] on file Legal Sex Female 9:54 AM EDUCATION FINANCE PROCESSOR Gender Identity Not on file Sexual Orientation Not on file documented as of this encounter Last Filed Vital Signs Vital Sign Reading Time Taken Comments Blood Pressure 124/63 03/18/2024 10:10 AM CDT Pulse 62 03/18/2024 10:10 AM CDT Temperature 36.4 ??C (97.6 ??F) 03/18/2024 10:10 AM C DT Respiratory Rate 16 03/18/2024 10:10 AM CDT Oxygen Saturation 93% 03/18/2024 10:10 AM CDT 3L O2 Inhaled Oxygen Concentration - - Weight - - Height - - Body Mass Index - - documented in this encounter Plan of Treatment Upcoming Encounters Date Type Department Care Team (Late st Contact Info) Description 12/18/2024 2:15 PM EDUCATION FINANCE PROCESSOR Office Visit [facility] - Neurology - [place] [address] [place] [address] Adeel Covarrubias MD [address] [place] [address] documented as of this encounter Visit Diagnoses [...] goals the following were identified: Patient centered correction goal: to improve balance. Target Date: by [...] to [facility] after hospitalization at [facility] from 02/18/24-02/23/24 with c/o R knee [...] this date Static/dynamic standing for 3 min wit bilateral upper extremity support on walker while [...] Problem:PT COMPREHENSIVE Goal:PT Stairs and Home Exit Patient refused due to knee pain PT Ambulation Description: Provide gait training for increased safety and efficiency. Progress per patient tolerance and safety. Problem:PT COMPREHENSIVE Goal:PT Ambulation Completed Patient ambulated with CGA for 40 feet from couch to bathroom with use of 2 wheel walker tolerating approximately 50% WBAT R lower extremity over even surfaces with the following gait characteristics slow pace, decreased single leg stance time right LE, minimal heal strike and toe off B LE. Patient had c/o 10/10 posterior right knee pain with weight bearing. Skills provided: Tolerance to activity modified Kate rating 7/10 and pulse ox reading 92% on 3 L of O2. Instruction provided to Patient. PT Transfers Description: Instruct in proper safety and transfer technique. Problem:PT COMPREHENSIVE Goal:PT Transfers Completed Transfer training provided this date Sit to/from stand from couch recliner with B arm rests and commode. Transfer was preformed slowly with c/o pain with weight bearing on right knee. Level of support required for safety SBA. Assistive devices used: Front wheeled walker chair [...] flexion, hip abduction all x 15 reps. Verbal cues for proper breathing technique, engaging core musculature for support, and slower performance with 3 sec pause at end of range for optimal benefit of exercises - good return demo. Patient preformed LE recumbent bike x 4 min. LE HEP performed to promote improved B LE strength for carry-over into functional mobility. Recommended she continue LE HEP increasing reps to 15 2-3 x daily for continued strengthening. Skills provided: ongoing instruction in technique. cold pack was applied post activity with skin barrier with instruction for 20 min duration as needed t/o the day and to monitor skin after episode. Home Exercise Program issued provided at this visit Instruction provided to Patient. PT HEP Progression Description: Instruct on home exercise program. Progress as tolerated. Problem:PT COMPREHENSIVE Goal:PT HEP Completed Home Exercise Program issued for siting and supine HEP with provision of handouts at prior visit. Instruction to increase repetitions to 15 reps 2-3 x daily. Instruction provided to Patient. Response verbalize understanding, return demonstration and additional education required. Pain Management/Education (O) Description: Instruct patient/ caregiver on strategies to manage pain. Problem:PAIN-MANAGE MENT/EDUCATION Goal:Pain Management/Educatio n Completed Pain management plan: 1. Set a [...] understanding. documented in this encounter Care Teams Director It Project Relationship Specialty Start Date End Date Watson Perry MD [address] [place], [place] [phone] PCP - General Family Medicine 01/25/18 Adeel Covarrubias MD [address] [place] [address] Consulting Physician Neurology 03/07/22 documented as of this encounter
--- OUTSIDE RECORDS SUMMARY | 2024-11-23 15:06 | XMS_ITS | Encounter Summary ---
Author Organization [facility] Address [address] [place] [address] Phone Care Team Providers Care Knife Cutter Name Role Phone Watson Perry MD Primary Care Provider [phone] Adeel Covarrubias MD Unavailable [phone] Reason for Visit * Auth/Cert (Routine) Specialty Diagnoses / Procedures Referred By Contac t Referred To Contact Referral ID Status Reason Start Date Expiration Date Visits Re quested Visits Authorized [id number] 1 1 Encounter Details Date Type Department Care Team (Late st Contact Info) Description 03/10/2024 11:00 AM CDT [facility] [address] [place], [place] [phone] Mariaelena Virk, OT OT - HOME VISIT Social History Tobacco [...] on file Legal Sex Female 9:54 AM FILLER SHREDDER Gender Identity Not on file Sexual Orientation Not on file documented as of this encounter Last Filed Vital Signs Vital Sign Reading Time Taken Comments Blood Pressure 100/58 03/10/2024 11:15 AM CDT Pulse 60 03/10/2024 11:15 AM CDT Temperature 36.3 ??C (97.3 ??F) 03/10/2024 11:15 AM C DT Respiratory Rate 18 03/10/2024 11:15 AM CDT Oxygen Saturation 95% 03/10/2024 11:15 AM CDT 3L O2 Inhaled Oxygen Concentration - - Weight - - Height - - Body Mass Index - - documented in this encounter Plan of Treatment Upcoming Encounters Date Type Department Care Team (Late st Contact Info) Description 12/18/2024 2:15 PM FILLER SHREDDER Office Visit [facility] - [facility] [address] [place] [address] Adeel Covarrubias MD [address] [place] [address] documented as of this encounter Visit Diagnoses Not on filedocumented in this encounter Home Health Visit - Care Plan Visit Details Visit Type -OT - HOME VISIT Discipline -Occupational Therapy Problems Problem Description Start Date Status Goals Interve ntions FALL PREVENTION (O) Disciplines: SN, PT, OT, SUPREME COURT JUSTICE, HCA, SILVER PLATER, RT 03/05/2024 Active 1 goal linked to scheduled/document ed intervention 1 goal intervention scheduled/documen zen in this visit ALL HH VITAL SIGN PARAMETERS Disciplines: All Home Care 03/05/2024 Active - 1 problem intervention scheduled/documen zen in this visit THERAPY DISEASE MANAGEMENT (O) Disciplines: Occupational Therapy 03/06/2024 Active - 3 problem interventions scheduled/documen zen in this visit OCCUPATIONAL THERAPY [...] goals the following were identified. Patient Centered Detention Goal: to get stronger Target date: within 6 weeks OCCUPATIONAL THERAPY GENERAL ORDER (O) No OT Activity Tolerance Description: Short Term [...] functional independence. to be met by 03/21/24 FDC goal: Patient will complete tub/shower, chair, toilet [...] of safety/technique. To be met by 03/21/24. Manufacturing Design Engineer Goal: Patient and Caregiver will perform B [...] (Order Only) Description: Pt was hospitalized at [facility] from 02/18/24-02/23/24 with c/o R knee [...] ORDER (O) Goal:Occupational Therapy General Completed OT Activity Tolerance Description: Instruct on activity tolerance techniques. Problem:OT COMPREHENSIVE Goal:OT Activity Tolerance Completed patient was educated on and pt/therapist reviewed and discussed energy conservation techniques and issued handouts and reviewed and discussed for pursed lip breathing as patients O2 sats dropped into 81 after going to [place] and back without her O2. Pt had to put O2 back on before she was able to return to 90+. Progress toward goal: ongoing OT Transfers Description: Instruct on transfer techniques and safety. Equipment as needed. Problem:OT COMPREHENSIVE Goal:OT Transfers Completed Patient performed transfer with adaptive equipment of walker with stand by to contact guard assist and fair activity tolerance. Skill provided to improve this function consisted of: Pt requires verbal cues for safety, use of and monitoring her O2 sats as she takes off her O2 when she goes to the bathroom, she states the tubing just gets in her way. pt educated on importance of using her O2 as her O2 sats dropped into the low 80's and only recovered when O2 is used. Compliance of follow through is fair. Progress toward goal: ongoing OT Home Exercise Program Description: Instruct on Home Exercise Program. Problem:OT COMPREHENSIVE Goal:OT Home Exercise Program Completed Patient performed B UE AROM HEP with verbal cues and good activity tolerance. Skill provided to improve this function consisted of: Pt was issued handout and instructed on B UE HEP AROM. Pt required demo of each exercise, verbal cues and education for instructions/recomme ndations, purpose of exercises and breathing techs and to pay attention to breathing, modifications/option s as needed, analogies to perform/remember exercises. Pt performed 10 reps of each of the following exercises: shoulder elevation, retraction (push/pull), flex/ext, ab/ad, hab/had, ER/IR, elbow flex/ext, sup/pron, wrist flex/ext, digit flex/ext. Educated that exercises are performed for increase in functional strength/endurance for ADLs/IADLs, functional transfers/mobilities and safety. Exercises and modifications were written down and recommended 1x day at 10 reps as tolerated and as pain allows. Compliance of follow through is fair. Progress toward goal: ongoing documented in this encounter Home Health Visit - Actions and Narratives Narratives pt reports her R knee is bot gonzalo her again and she thinks the bakers cyst is coming back. she goes to see her MD this afternoon documented in this encounter Care Teams Knife Cutter Relationship Specialty Start Date End Date Watson Perry MD [address] [place] [address] PCP - General Family Medicine 01/25/18 Adeel Covarrubias MD [address] [place] [phone] Consulting Physician Neurology 03/07/22 documented as of this encounter
--- OUTSIDE RECORDS SUMMARY | 2024-11-23 15:06 | XMS_ITS | Encounter Summary ---
Author Organization [facility] Address [address] [place] [address] Phone Care Team Providers Care Pig Caster Name Role Phone Watson Perry MD Primary Care Provider [phone] Adeel Covarrubias MD Unavailable [phone] Reason for Visit * Reason Comments Medication Refill Encounter Details Date Type Department Care Team (Late st Contact Info) Description 03/16/2024 Refill [facility] [address] [place] [address] Adeel Covarrubias MD [address] [place] [address] Medication Refill Social History Tobacco [...] on file Legal Sex Female 9:54 AM RHYTHMIC GYMNASTICS COACH Gender Identity Not on file Sexual Orientation Not on file documented as of this encounter Miscellaneous Notes * Telephone Encounter - Fartun Bonilla RN - 03/17/2024 8:10 AM CDT Medication failed the protocol, provider to review and approve the medication order if appropriate. Requested Prescriptions Pending Prescriptions Disp Refills primidone (MYSOLINE) 250 MG Tablet [Pharmacy Med Name: Primidone 250 MG Oral Tablet] 90 Tablet 0 Sig: Take 1 tablet by mouth once daily Not Delegated - Anticonvulsants Excluding Benzodiazepines Protocol Failed - 03/16/2024 11:52 AM Failed - This refill cannot be delegated Passed - Visit with relevant provider in past 12 months or upcoming 90 days Recent Visits Date Type Provider Dept 01/22/24 Office Visit Adeel Covarrubias MD [facility] Neurology [facility] Showing recent visits within past 365 days and meeting all other requirements Future Appointments No visits were found meeting these conditions. Showing future appointments within next 90 days and meeting all other requirements documented in this encounter Plan of Treatment Upcoming Encounters Date Type Department Care Team (Late st Contact Info) Description 12/18/2024 2:15 PM RHYTHMIC GYMNASTICS COACH Office Visit [facility] - Neurology [facility] [address] [place] [address] Adeel Covarrubias MD [address] [place] [address] documented as of this encounter Visit Diagnoses Diagnosis Essential tremor Essential and other specified forms of tremor documented in this encounter Care Teams Pig Caster Relationship Specialty Start Date End Date Watson Perry MD [address] [place] [address] PCP - General Family Medicine 01/25/18 Adeel Covarrubias MD [address] [place] [address] Consulting Physician Neurology 03/07/22 documented as of this encounter
--- OUTSIDE RECORDS SUMMARY | 2024-11-23 15:06 | XMS_ITS | Encounter Summary ---
Author Organization [facility] Care Team Providers Care Car Repairman Name Role Phone Watson Perry MD Primary Care Provider [phone] Adeel Covarrubias MD Unavailable [phone] Encounter Details Date Type Department Care Team (Latest Contact Info) Description 03/17/2024 Travel Social History Tobacco Use Types Packs/Day [...] on file Legal Sex Female 9:54 AM THIRD MATE Gender Identity Not on file Sexual Orientation Not on file documented as of this encounter Plan of Treatment Upcoming Encounters Date Type Department Care Team (Late st Contact Info) Description 12/18/2024 2:15 PM THIRD MATE Office Visit [facility] - Neurology [facility] [address] [place] [address] Adeel Covarrubias MD [address] [place] [address] documented as of this encounter Visit Diagnoses Not on filedocumented in this encounter Care Teams Car Repairman Relationship Specialty Start Date End Date Watson Perry MD [address] [place] [address] PCP - General Family Medicine 01/25/18 Adeel Covarrubias MD [address] [place] [address] Consulting Physician Neurology 03/07/22 documented as of this encounter
--- OUTSIDE RECORDS SUMMARY | 2024-11-23 15:06 | XMS_ITS | Encounter Summary ---
Author Organization [facility] Address [address] [place] [address] Phone Care Team Providers Care Do All Operator Name Role Phone Watson Coleman MD Primary Care Provider [phone] Nicholas Covarrubias MD Unavailable [phone] Reason for Referral * Consult, Test & Initiate Treatment (Less Than 4 Weeks) - Closed Specialty Diagnoses / Procedures Referred By Contac t Referred To Contact Diagnoses Essential tremor Nicholas Covarrubias MD [address] [place] [address] Phone: tel: fax: Ancelmo Hernandze MD [address] [place] [address] Phone: tel: fax: Referral ID Status Reason Start Date Expiration Date Visits Re quested Visits Authorized [id number] Closed 01/22/2024 1 1 Scheduling Instructions Janeth is being referred to the [facility] at [facility] with Dr. Hernandez or other specialist in patient's insurance network for evaluation of DBS. See below for Janeth's current medications, allergies and problem list. Please contact patient for scheduling questions or concerns. CURRENT MEDS: Current Outpatient Medications: Blood Glucose Monitoring Suppl Device, Diagnosis: Diabetes type 2 Blood testing frequency: 3 times a day (Patient not taking: Reported on 01/22/2024), Disp: 1 Each, Rfl: 0 Calcium Citrate-Vitamin D 250-200 MG-UNIT Tablet, Take by mouth., Disp: , Rfl: citalopram (CELEXA) 20 MG Tablet, Take by mouth., Disp: , Rfl: clonazePAM (KlonoPIN) 1 MG Tablet, Take 1 mg by mouth nightly., Disp: , Rfl: esomeprazole (NEXIUM) 20 MG CAPSULE DELAYED RELEASE, Take by mouth., Disp: , Rfl: Doykxmbasco-Wwpadjffp-Etbcof (TRELEGY ELLIPTA IN), take 1 Puff by inhalation daily., Disp: , Rfl: fluticasone-vilanterol (BREO ELLIPTA) 100-25 MCG/INH AEROSOL POWDER, BREATH ACTIVATED, take 1 Puff by inhalation daily. (Patient not taking: Reported on 01/22/2024), Disp: , Rfl: furosemide (LASIX) 20 MG Tablet, Take 20 mg by mouth daily., Disp: , Rfl: Glucose Blood Strip, Diagnosis: Diabetes type 2 Blood testing frequency: 3 times a day, Disp: 100 Strip, Rfl: 1 guaiFENesin (MUCINEX PO), Take by mouth., Disp: , Rfl: Lancets Misc, Use as directed, Disp: 100 Lancet, Rfl: 1 Multiple Vitamin (MULTIVITAMIN PO), Take by mouth., Disp: , Rfl: [place]-3 Fatty Acids (FISH OIL PO), Take by mouth., Disp: , Rfl: pramipexole (MIRAPEX) 1.5 MG Tablet, Take 1.5 mg by mouth 2 times daily., Disp: , Rfl: primidone (MYSOLINE) 250 MG Tablet, Take 1 tablet by mouth once daily, Disp: 90 Tablet, Rfl: 0 propranolol (INDERAL LA) 60 MG CAPSULE SR 24 HR, Take 1 Capsule by mouth 2 times daily., Disp: 90 Capsule, Rfl: 1 rosuvastatin (CRESTOR) 10 MG Tablet, , Disp: , Rfl: No current facility-administered medications for this visit. ALLERGIES: -- Ibuprofen -- Rash PROBLEM LIST: Patient Active Problem List: Moderate COPD (chronic obstructive pulmonary disease) (HCC) Essential tremor Gastroesophageal reflux disease without esophagitis Hyperlipidemia Anxiety and depression ATION MONITOR Reason for Visit * Reason Comments essential tremor Encounter Details Date Type Department Care Team (Late st Contact Info) Description 01/22/2024 9:45 AM RADIATION MONITOR Office Visit [facility] Neurology [facility] [address] [place] [address] Nicholas Covarrubias MD [address] [place] [address] Essential tremor (Primary Dx); Moderate COPD (chronic obstructive pulmonary disease) (HCC) Discharge Disposition: Discharged to home or Selfcare [...] on file Legal Sex Female 9:54 AM RADIATION MONITOR Gender Identity Not on file Sexual Orientation Not on file documented as of this encounter Last Filed Vital Signs Vital Sign Reading Time Taken Comments Blood Pressure 118/64 01/22/2024 9:47 AM RADIATION MONITOR Pulse 62 01/22/2024 9:47 AM RADIATION MONITOR Temperature 36.2 ??C (97.2 ??F) 01/22/2024 9:47 AM CS T Respiratory Rate 18 01/22/2024 9:47 AM RADIATION MONITOR Oxygen Saturation 91% 01/22/2024 9:47 AM RADIATION MONITOR Inhaled Oxygen Concentration - - Weight - - Height - - Body Mass Index - - documented in this encounter Progress Notes * Nicholas Covarrubias MD - 01/22/2024 9:45 AM CST NEUROLOGY CONSULT Assessment and Plan Janeth was seen today for essential tremor. Diagnoses and all orders for this visit: Essential tremor - patient notes she is tolerating her propranolol 60 mg b.i.d. and primidone 250 mg at night - however she does not get enough benefit to make it worthwhile to continue that regimen - will refer patient to a movement disorder specialist for evaluation of DBS - EXTERNAL NEUROLOGY REFERRAL; Future Moderate COPD (chronic obstructive pulmonary disease) (HCC) Reason for Consultation: tremor HPI: Janeth presents in follow-up for evaluation of [...] Diagnosis Date COPD (chronic obstructive pulmonary disease) ([facility]) GERD (gastroesophageal reflux disease) Hyperlipidemia Post-menopausal bleeding Tremors of nervous system Past Surgical History: Procedure Laterality Date DILATION AND CURETTAGE HIP FRACTURE SURGERY Left HYSTERECTOMY ORAL SURGERY PROCEDURE bone removal TOE SURGERY bunion Family History Problem Relation Age of Onset Skin Cancer Mother Parkinsonism Father Leukemia/Lymphoma Brother Diabetes Maternal Grandmother Social History Tobacco Use Smoking status: Former Packs/day: .25 Types: Cigarettes Start date: 11/19/1977 Quit date: 05/19/2022 Years since quittin.6 Smokeless tobacco: Never Substance Use Topics Alcohol use: No Allergies Allergen Reactions Ibuprofen Rash Current Outpatient Medications: Blood Glucose Monitoring Suppl Device, Diagnosis: Diabetes type 2 Blood testing frequency: 3 times a day (Patient not taking: Reported on 01/22/2024), Disp: 1 Each, Rfl: 0 Calcium Citrate-Vitamin D 250-200 MG-UNIT Tablet, Take by mouth., Disp: , Rfl: citalopram (CELEXA) 20 MG Tablet, Take by mouth., Disp: , Rfl: clonazePAM (KlonoPIN) 1 MG Tablet, Take 1 mg by mouth nightly., Disp: , Rfl: esomeprazole (NEXIUM) 20 MG CAPSULE DELAYED RELEASE, Take by mouth., Disp: , Rfl: Dchvupieapm-Zmnelciap-Morrzk (TRELEGY ELLIPTA IN), take 1 Puff by inhalation daily., Disp: , Rfl: fluticasone-vilanterol (BREO ELLIPTA) 100-25 MCG/INH AEROSOL POWDER, BREATH ACTIVATED, take 1 Puff by inhalation daily. (Patient not taking: Reported on 01/22/2024), Disp: , Rfl: furosemide (LASIX) 20 MG Tablet, Take 20 mg by mouth daily., Disp: , Rfl: Glucose Blood Strip, Diagnosis: Diabetes type 2 Blood testing frequency: 3 times a day, Disp: 100 Strip, Rfl: 1 guaiFENesin (MUCINEX PO), Take by mouth., Disp: , Rfl: Lancets Misc, Use as directed, Disp: 100 Lancet, Rfl: 1 Multiple Vitamin (MULTIVITAMIN PO), Take by mouth., Disp: , Rfl: [place]-3 Fatty Acids (FISH OIL PO), Take by mouth., Disp: , Rfl: pramipexole (MIRAPEX) 1.5 MG Tablet, Take 1.5 mg by mouth 2 times daily., Disp: , Rfl: primidone (MYSOLINE) 250 MG Tablet, Take 1 tablet by mouth once daily, Disp: 90 Tablet, Rfl: 0 propranolol (INDERAL LA) 60 MG CAPSULE SR 24 HR, Take 1 Capsule by mouth 2 times daily., Disp: 90 Capsule, Rfl: 1 rosuvastatin (CRESTOR) 10 MG Tablet, , Disp: , Rfl: Review of Systems: A 14 point Review of Systems is obtained, and is negative other than that mentioned in the History of Present Illness. Objective: VITALS: Blood pressure 118/64, pulse 62, temperature 97.2 ??F (36.2 ??C), temperature source Temporal, resp. rate 18, SpO2 91%. Weight: Wt Readings from Last 1 Encounters: 03/06/23 171 lb 12.8 oz (77.9 kg) There is no height or weight on file to calculate BMI. EXAM: General appearance: alert, no distress, cooperative, [...] Flexors 5/5 5/5 Wrist Extensors 5/5 5/5 [place] 5/5 5/5 Hip Flexors 5/5 5/5 Quadriceps [...] walking. Normal armswing and turns. By: NICHOLAS COVARRUBIAS MD, 01/22/2024, 4:30 PM RADIATION MONITOR Primary Care Physician: WATSON COLEMAN MD ATION MONITOR documented in this encounter Plan of Treatment Upcoming Encounters Date Type Department Care Team (Late st Contact Info) Description 12/18/2024 2:15 PM RADIATION MONITOR Office Visit [facility] [address] [place] [address] Nicholas Covarrubias MD [address] [place] [address] Scheduled Referrals Name Type Priority Associated Diagnoses Order Schedule EXTERNAL NEUROLOGY REFERRAL Outpatient Referral Less Than 4 weeks Essential tremor Expected: 01/22/2024, Expires: 07/24/2024 documented as of this encounter Visit Diagnoses Diagnosis Essential tremor- Primary Essential and other specified forms of tremor Moderate COPD (chronic obstructive pulmonary disease) (HCC) Chronic airway obstruction, not elsewhere classified documented in this encounter Care Teams Do All Operator Relationship Specialty Start Date End Date Watson Coleman MD [address] [place] [address] PCP - General Family Medicine 01/25/18 Nicholas Covarrubias MD [address] [place] [address] Consulting Physician Neurology 03/07/22 documented as of this encounter
--- OUTSIDE RECORDS SUMMARY | 2024-11-23 15:06 | XMS_ITS | Encounter Summary ---
Author Organization [facility] Care Team Providers Care Garment Patternmaker Name Role Phone Watson Perry MD Primary Care Provider [phone] Adeel Covarrubias MD Unavailable [phone] Encounter Details Date Type Department Care Team (Latest Contact Info) Description 03/12/2024 Travel Social History Tobacco Use Types Packs/Day [...] on file Legal Sex Female 9:54 AM PLANNER CHIEF Gender Identity Not on file Sexual Orientation Not on file documented as of this encounter Plan of Treatment Upcoming Encounters Date Type Department Care Team (Late st Contact Info) Description 12/18/2024 2:15 PM PLANNER CHIEF Office Visit [facility] - [facility]rology [facility] [address] [place] [address] Adeel Covarrubias MD [address] [place] [address] documented as of this encounter Visit Diagnoses Not on filedocumented in this encounter Care Teams Garment Patternmaker Relationship Specialty Start Date End Date Watson Perry MD [address] [place] [address] PCP - General Family Medicine 01/25/18 Adeel Covarrubias MD [address] [place] [address] Consulting Physician Neurology 03/07/22 documented as of this encounter
--- OUTSIDE RECORDS SUMMARY | 2024-11-23 15:06 | XMS_ITS | Encounter Summary ---
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 Gender Identity Not on file Sexual Orientation Not on file documented as of this encounter Plan of Treatment Upcoming Encounters Date Type Department Care Team (Late st Contact Info) Description 12/18/2024 2:15 PM PHOTOGRAPHIC EQUIPMENT MECHANIC [facility] - [facility] [address] [place] [address] Adeel Covarrubias MD [address] [place] [address] documented as of this encounter Visit Diagnoses Not on filedocumented in this encounter Care Teams Animal Warden Relationship Specialty Start Date End Date Watson Perry MD [address] [place] [address] PCP - General Family Medicine 01/25/18 Adeel Covarrubias MD [address] [place] [address] Consulting Physician Neurology 03/07/22 documented as of this encounter
--- OUTSIDE RECORDS SUMMARY | 2024-11-23 15:07 | XMS_ITS | Encounter Summary ---
Author Organization [facility] Address [address] [place] [address] Phone Care Team Providers Care Urgent Care Physician Name Role Phone Watson Perry MD Primary Care Provider Adeel Covarrubias MD Unavailable [phone] Reason for Visit * Reason Comments Medication Refill Encounter Details Date Type Department Care Team (Late st Contact Info) Description 04/25/2021 Refill [facility] [address] [place] [address] Adeel Covarrubias MD [address] [place] [address] Medication Refill Social History Tobacco Use Types Packs/Day Years Used Date Smoking Tobacco: Every Day Cigarettes 0.3 47 Started: 11/19/1977 Smokeless Tobacco: Never Alcohol Use Standard Drinks/Week Comments No 0 (1 standard drink = 0.6 oz pur e alcohol) Sexually Active Control Partners Comments Yes Comments No Sex and Gender Information Value Date Recorded Sex Assigned at Not on file 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 Gender Identity Not on file Sexual Orientation Not on file documented as of this encounter Plan of Treatment Upcoming Encounters Date Type Department Care Team (Late st Contact Info) Description 12/18/2024 2:15 PM CONE OPERATOR Office Visit [facility] Neurology [facility] [address] [place] [address] Adeel Covarrubias MD [address] [place] [address] documented as of this encounter Visit Diagnoses Diagnosis Essential tremor Essential and other specified forms of tremor documented in this encounter Additional Health Concerns Infection Onset Date Last Indicated Resolved Time COVID - 19 05/28/2022 05/28/2022 05/28/2022 12:1 7 PM CDT COVID - 19 Confirmed 05/28/2022 05/28/2022 022 12:16 AM CDT COVID - 19 05/28/2022 05/28/2022 05/29/2022 1:01 PM CDT documented as of this encounter Care Teams Urgent Care Physician Relationship Specialty Start Date End Date Watson Perry MD [address] [place] [address] PCP - General Family Medicine 01/25/18 Adeel Covarrubias MD [address] [place] [address] Consulting Physician Neurology 03/07/22 documented as of this encounter
--- OUTSIDE RECORDS SUMMARY | 2024-11-23 15:07 | XMS_ITS | Encounter Summary ---
Author Organization [facility] Address [address] [place] [address] Phone Care Team Providers Care Railroad Hand Name Role Phone Watson Perry MD Primary Care Provider [phone] Adeel Covarrubias MD Unavailable [phone] Reason for Visit * Auth/Cert Specialty Diagnoses / Procedures Referred By Rhea laura Referred To Contact Diagnoses NONTOXIC SINGLE THYROID NODULE Procedures PRE / POST CARE FOR PROCEDURAL AREA Referral ID Status Reason Start Date Expiration Date Visits Re quested Visits Authorized [id number] 1 1 Encounter Details Date Type Department Care Team (Late st Contact Info) Description 09/19/2022 10:00 AM CDT - 09/19/2022 10:30 AM CDT [facility] [address] [place] [address] Provider, Not On File [place] PRE / POST CARE FOR PROCEDURAL AREA- RIGHT THYROID BIOPSY Surgery Details Date/Time Status Location OR Service Patient Class Case Class Case Type Trauma Case? 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 No / Unsure 09/19/2022 9:03 AM CDT documented as of this encounter Last Filed Vital Signs Vital Sign Reading Time Taken Comments Blood Pressure 103/56 09/19/2022 9:22 AM CDT Pulse 72 09/19/2022 9:22 AM CDT Temperature 36.8 ??C (98.2 ??F) 09/19/2022 9:22 AM CD T Respiratory Rate 15 09/19/2022 9:22 AM CDT Oxygen Saturation 91% 09/19/2022 9:22 AM CDT Inhaled Oxygen Concentration - - Weight - - Height 165.1 cm (5' 5 ) 09/19/2022 9:22 AM CDT Body Mass Index - - documented in this encounter Medications at Time of Discharge Blood Glucose Monitoring Suppl Device Diagnosis: Diabetes type 2 Blood testing frequency: 3 times a day 1 Each 06/04/2022 citalopram (CELEXA) 20 MG Tablet Take 20 mg by mouth daily. clonazePAM (KlonoPIN) 1 MG Tablet Take 1 mg by mouth nightly. esomeprazole (NEXIUM) 20 MG CAPSULE DELAYED RELEASE Take 20 mg by mouth every morning (before breakfast). Fluticasone-Umec lidin-Vilant (TRELEGY ELLIPTA IN) take 1 Puff by inhalation daily. Glucose Blood Strip Diagnosis: Diabetes type 2 Blood testing frequency: 3 times a day 100 Strip 1 06/04/2022 Lancets Misc Use as directed 100 Lancet 1 06/04/2022 Multiple Vitamin (MULTIVITAMIN PO) Take 1 % by mouth daily. [place]-3 Fatty Acids (FISH OIL PO) Take 2 Capsules by mouth daily. pramipexole (MIRAPEX) 1.5 MG Tablet Take 1.5 mg by mouth 2 times daily. 04/21/2022 propranolol (INDERAL LA) 60 MG CAPSULE SR 24 HRIndications:Es sential tremor Take 1 Capsule by mouth 2 times daily. 90 Capsule 1 03/07/2022 rosuvastatin (CRESTOR) 10 MG Tablet Take 10 mg by mouth nightly. 02/26/2018 Calcium Citrate-Vitamin D 250-200 MG-UNIT Tablet Take by mouth. 4 fluticasone-ramon nterol (BREO ELLIPTA) 100-25 MCG/INH AEROSOL POWDER, BREATH ACTIVATED take 1 Puff by inhalation daily. 4 primidone (MYSOLINE) 250 MG TabletIndication s:Essential tremor Take 1 Tablet by mouth daily. 120 Tablet 07/31/2022 3 documented as of this encounter Miscellaneous Notes * Plan of Care - Macy Acosta RN - 09/19/2022 10:54 AM CDT Patient back from thyroid biopsy. Patient interacting well. Vitals taken. Discharge instructions reviewed with patient. Patient is on oxygen at home but did not bring any with her. Will be taken to her 's car in a wheelchair for him to drive her home. documented in this encounter Plan of Treatment Upcoming Encounters Date Type Department Care Team (Late st Contact Info) Description 12/18/2024 2:15 PM RFP WRITER Office Visit [facility] - Neurology [facility] [address] [place] [address] Adeel Covarrubias MD [address] [place] [address] documented as of this encounter Procedures Procedure Name Priority Date/Time Associated Diagnosis Comments PRE / POST CARE FOR PROCEDURAL AREA 09/19/2022 10:00 AM CDT NONTOXIC SINGLE THYROID NODULE SARS-COV-2 BY MOLECULAR STAT 09/19/2022 9:16 AM CDT documented in this encounter Results * SARS-COV-2 BY MOLECULAR (09/19/2022 9:16 AM CDT) SARSCOV2 NOT DETECTED (Referenc e Range for this test is Not Detected) [facility] ID NOW 09/19/2022 9:43 AM CDT [facility] Comment:This test was perfor med by a MOLECULAR, NON-PCR method Other NASOPHARYNGEAL STRUCTURE / Unknown Non-Phlebotomy Collection / Unknown 09/19/2022 9:16 AM CDT 09/19/2022 9:17 AM CDT Narrative [facility] - 09/19/2022 9:43 AM CDT This test has been authorized by the FDA under an Emergency Use Authorization (EUA) only. Negative results should be treated as presumptive and, if inconsistent with clinical signs and symptoms or necessary for patient management, the patient should be tested with an alternative molecular assay. Negative results do not preclude SARS-CoV-2 infection or any other respiratory pathogen. Additional information for Clinicians can be found at: https://www.fda.gov/media/798233/download Additional information for Patients can be found at: https://www.fda.gov/media/882450/download Tripp Alvarez MD MICROBIOLOGY - GENERAL OR DERABLES Final Result [facility] [address] [place] [address] documented in this encounter Visit Diagnoses Not on filedocumented in this encounter Care Teams Railroad Hand Relationship Specialty Start Date End Date Watson Perry MD [address] [place] [address] PCP - General Family Medicine 01/25/18 Adeel Covarrubias MD [address] [place] [address] Consulting Physician Neurology 03/07/22 documented as of this encounter
--- OUTSIDE RECORDS SUMMARY | 2024-11-23 15:07 | XMS_ITS | Encounter Summary ---
Author Organization [facility] Address [address] [place] [address] Phone Care Team Providers Care Electronic Resources Librarian Name Role Phone Watson Coleman MD Primary Care Provider [phone] Nicholas Wise MD Unavailable [phone] Reason for Visit * Reason Comments essential tremor Encounter Details Date Type Department Care Team (Late st Contact Info) Description 03/06/2023 9:00 AM CDT Office Visit [facility] - Neurology [facility] [address] [place] [address] Nicholas Wise MD [address] [place] [address] Essential tremor Discharge Disposition: Discharged to home [...] on file Legal Sex Female 9:54 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 No / Unsure 03/06/2023 8:55 AM CDT documented as of this encounter Last Filed Vital Signs Vital Sign Reading Time Taken Comments Blood Pressure 120/74 03/06/2023 9:04 AM CDT Pulse 76 03/06/2023 9:04 AM CDT Temperature 36.2 ??C (97.2 ??F) 03/06/2023 9:04 AM CD T Respiratory Rate 17 03/06/2023 9:04 AM CDT Oxygen Saturation 88% 03/06/2023 9:04 AM CDT Inhaled Oxygen Concentration - - Weight 77.9 kg (171 lb 12.8 oz) 03/06/2023 9:04 AM CDT Height 165.1 cm (5' 5 ) 03/06/2023 9:04 AM CDT Body Mass Index 28.59 03/06/2023 9:04 AM CDT documented in this encounter Progress Notes * Nicholas Wise MD - 03/06/2023 9:00 AM CDT NEUROLOGY CONSULT Assessment and Plan Janeth was seen today for essential tremor. Diagnoses and all orders for this visit: Essential tremor - continue patient on propranolol and primidone - patient may consider surgical options Restless leg syndrome - continue Requip and clonazepam Reason for Consultation: tremor HPI: Janeth presents [...] Mirapex. Past Medical History Positives Diagnosis Date ??? COPD (chronic obstructive pulmonary disease) (HCC) ??? GERD (gastroesophageal reflux disease) ??? Hyperlipidemia ??? Post-menopausal bleeding ??? Tremors of nervous system Past Surgical History: Procedure Laterality Date ??? DILATION AND CURETTAGE ??? HYSTERECTOMY ??? ORAL SURGERY PROCEDURE bone removal ??? TOE SURGERY bunion Family History Problem Relation Age of Onset ??? Skin Cancer Mother ??? Parkinsonism Father ??? Leukemia/Lymphoma Brother ??? Diabetes Maternal Grandmother Social History Tobacco Use ??? Smoking status: Former Packs/day: 0.25 Types: Cigarettes Start date: 11/19/1977 Quit date: 05/19/2022 Years since quittin.7 ??? Smokeless tobacco: Never Substance Use Topics ??? Alcohol use: No Allergies Allergen Reactions ??? Ibuprofen Rash Current Outpatient Medications: ??? Blood Glucose Monitoring Suppl Device, Diagnosis: Diabetes type 2 Blood testing frequency: 3 times a day, Disp: 1 Each, Rfl: 0 ??? Calcium Citrate-Vitamin D 250-200 MG-UNIT Tablet, Take by mouth., Disp: , Rfl: ??? citalopram (CELEXA) 20 MG Tablet, Take by mouth., Disp: , Rfl: ??? clonazePAM (KlonoPIN) 1 MG Tablet, Take 1 mg by mouth nightly., Disp: , Rfl: ??? esomeprazole (NEXIUM) 20 MG CAPSULE DELAYED RELEASE, Take by mouth., Disp: , Rfl: ??? Xldmzjntwma-Vjffztgag-Wgcyjj (TRELEGY ELLIPTA IN), take 1 Puff by inhalation daily., Disp: , Rfl: ??? fluticasone-vilanterol (BREO ELLIPTA) 100-25 MCG/INH AEROSOL POWDER, BREATH ACTIVATED, take 1 Puff by inhalation daily., Disp: , Rfl: ??? furosemide (LASIX) 20 MG Tablet, Take 20 mg by mouth daily., Disp: , Rfl: ??? Glucose Blood Strip, Diagnosis: Diabetes type 2 Blood testing frequency: 3 times a day, Disp: 100 Strip, Rfl: 1 ??? Lancets Misc, Use as directed, Disp: 100 Lancet, Rfl: 1 ??? Multiple Vitamin (MULTIVITAMIN PO), Take by mouth., Disp: , Rfl: ??? [place]-3 Fatty Acids (FISH OIL PO), Take by mouth., Disp: , Rfl: ??? pramipexole (MIRAPEX) 1.5 MG Tablet, Take 1.5 mg by mouth 2 times daily., Disp: , Rfl: ??? primidone (MYSOLINE) 250 MG Tablet, Take 1 Tablet by mouth daily., Disp: 90 Tablet, Rfl: 1 ??? propranolol (INDERAL LA) 60 MG CAPSULE SR 24 HR, Take 1 Capsule by mouth 2 times daily., Disp: 90 Capsule, Rfl: 1 ??? rosuvastatin (CRESTOR) 10 MG Tablet, , Disp: , Rfl: Review of Systems: A 14 point Review of Systems is obtained, and is negative other than that mentioned in the History of Present Illness. Objective: VITALS: Blood pressure 120/74, pulse 76, temperature 97.2 ??F (36.2 ??C), temperature source Temporal, resp. rate 17, height 5' 5 (1.651 m), weight 171 lb 12.8 oz (77.9 kg), SpO2 (!) 88 %. Weight: Wt Readings from Last 1 Encounters: 03/06/23 171 lb 12.8 oz (77.9 kg) Body mass index is 28.59 kg/m??. EXAM: General appearance: alert, no distress, [...] Flexors 5/5 5/5 Wrist Extensors 5/5 5/5 Imaging Science Professor 5/5 5/5 Hip Flexors 5/5 5/5 Quadriceps [...] armswing and turns. By: NICHOLAS WISE MD, 03/06/2023, 5:55 PM CDT Primary Care Physician: WATSON COLEMAN MD documented in this encounter Plan of Treatment Upcoming Encounters Date Type Department Care Team (Late st Contact Info) Description 12/18/2024 2:15 PM BELLHOP CAPTAIN Office Visit [facility] - Neurology [facility] [address] [place] [address] Nicholas Wise MD [address] [place] [phone] documented as of this encounter Visit Diagnoses Diagnosis Essential tremor Essential and other specified forms of tremor documented in this encounter Care Teams Electronic Resources Librarian Relationship Specialty Start Date End Date Watson Coleman MD [address] [place] [address] PCP - General Family Medicine 01/25/18 Nicholas Wise MD [address] [place] [address] Consulting Physician Neurology 03/07/22 documented as of this encounter
--- OUTSIDE RECORDS SUMMARY | 2024-11-23 15:07 | XMS_ITS | Encounter Summary ---
Author Organization 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 Yes 05/28/2022 9:23 AM CDT documented as of this encounter Plan of Treatment Upcoming Encounters Date Type Department Care Team (Late st Contact Info) Description 12/18/2024 2:15 PM STAFF MINE WARFARE OFFICER Office Visit [facility] - Neurology [facility] [address] [place] [phone] Adeel Covarrubias MD [address] [place] [address] documented as of this encounter Visit Diagnoses Not on filedocumented in this encounter Additional Health Concerns Infection Onset Date Last Indicated Resolved Time COVID - 19 05/28/2022 05/28/2022 05/28/2022 12:1 7 PM CDT COVID - 19 Confirmed 05/28/2022 05/28/2022 022 12:16 AM CDT COVID - 19 05/28/2022 05/28/2022 05/29/2022 1:01 PM CDT documented as of this encounter Care Teams Support Clerk Relationship Specialty Start Date End Date Watson Perry MD [address] [place] [address] PCP - General Family Medicine 01/25/18 Adeel Covarrubias MD [address] [place] [address] Consulting Physician Neurology 03/07/22 documented as of this encounter
--- OUTSIDE RECORDS SUMMARY | 2024-11-23 15:07 | XMS_ITS | Encounter Summary ---
Author Organization [facility] Address [address] [place] [address] Phone Care Team Providers Care Fretted Instrument Inspector Name Role Phone Watson Perry MD Primary Care Provider [phone] Adeel Covarrubias MD Unavailable [phone] Reason for Visit * Reason Onset Date Comments Transition of Care 06/05/2022 Post Discharg e Encounter Details Date Type Department Care Team (Late st Contact Info) Description 06/05/2022 Post Discharge Follow-up [facility] [employer] Sc[employer] Coordinator Management [address] [place] [address] Beverly Araujo RN Social History Tobacco Use Types Packs/Day Years Used Date Smoking Tobacco: Every Day Cigarettes 0.3 47 Started: 11/19/1977 Smokeless Tobacco: Never Alcohol Use Standard Drinks/Week Comments No 0 (1 standard drink = 0.6 oz pur e alcohol) Sexually Active Control Partners Comments Yes Comments No Sex and Gender Information Value Date Recorded Sex Assigned at Not on file 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 Yes 05/28/2022 9:23 AM CDT documented as of this encounter Miscellaneous Notes * Telephone Encounter - Beverly Araujo RN - 06/05/2022 11:50 AM CDT Transition of Care - Post Discharge Follow up call Patient admitted to [facility] for acute respiratory failure with hypoxia/COVID + Client's Current Condition: Patient states that she is feeling fine. Patient to have [facility] and aware. Denies SOB, cough, fever, chiils, fatigue, headache, sore throat, n/v, muscle or body aches. Patient reports that she understands her discharge instructions and declines need for medication review. Patient reports that she picked up new medications. Patient reports that 02 was delivered to her home and [address], 3L. Patient reports that she will schedule hospital follow up with PCP on own. Does the patient live alone? Lives with Caregiver: self/spouse DME: oxygen, glucometer Glucose: 127 Oxygen: Delivered, 3L Medications: Did the patient knot picker cloth their medications from the pharmacy? yes Is the patient compliant with the medication directions? States yes Did the patient need additional medication review today? no Does the patient have any unanswered questions about any medications? no Transportation: no concerns at this time Follow Up Appointments: PCP: patient to schedule own skirt panel assembler: none If the patient has HF, did the pt see their provider within 5 days of discharge? n/a Patient needs further transition of care calls: Yes, in 1 week. Please call Skip Hoist Engineer Beverly at [phone] with any questions. documented in this encounter Plan of Treatment Upcoming Encounters Date Type Department Care Team (Late st Contact Info) Description 12/18/2024 2:15 PM PHYSICIAN OPHTHALMOLOGIST [facility] [address] [place] [address] Adeel Covarrubias MD [address] [place] [address] documented as of this encounter Visit Diagnoses Not on filedocumented in this encounter Additional Health Concerns Infection Onset Date Last Indicated Resolved Time COVID - 19 Confirmed 05/28/2022 05/28/2022 022 12:16 AM CDT documented as of this encounter Care Teams Fretted Instrument Inspector Relationship Specialty Start Date End Date Watson Perry MD [address] [place] [address] PCP - General Family Medicine 01/25/18 Adeel Covarrubias MD [address] [place] [phone] Consulting Physician Neurology 03/07/22 documented as of this encounter
--- OUTSIDE RECORDS SUMMARY | 2024-11-23 15:07 | XMS_ITS | Encounter Summary ---
Author Organization [facility] Address [address] [place] [address] Phone Care Team Providers Care Passenger Interline Clerk Name Role Phone Watson Perry MD Primary Care Provider [phone] Adeel Covarrubias MD Unavailable [phone] Reason for Visit * Reason Onset Date Comments Medication Refill 12/20/2022 Encounter Details Date Type Department Care Team (Late st Contact Info) Description 12/15/2022 Refill [facility] [address] [place] [address] Adeel Covarrubias MD [address] [place] [address] Medication Refill Social History Tobacco [...] on file Legal Sex Female 9:54 AM COMPANY MANAGER Gender Identity Not on file Sexual Orientation Not on file documented as of this encounter Miscellaneous Notes * Telephone Encounter - Selam Spicer CMA - 12/20/2022 4:15 PM COMPANY MANAGER Opened in error ANY MANAGER documented in this encounter Plan of Treatment Upcoming Encounters Date Type Department Care Team (Late st Contact Info) Description 12/18/2024 2:15 PM COMPANY MANAGER Office Visit [facility] - Neurology [facility] [address] [place] [phone] Adeel Covarrubias MD [address] [place] [address] documented as of this encounter Visit Diagnoses Diagnosis Essential tremor Essential and other specified forms of tremor documented in this encounter Care Teams Passenger Interline Clerk Relationship Specialty Start Date End Date Watson Perry MD [address] [place] [address] PCP - General Family Medicine 01/25/18 Adeel Covarrubias MD [address] [place] [address] Consulting Physician Neurology 03/07/22 documented as of this encounter
--- OUTSIDE RECORDS SUMMARY | 2024-11-23 15:07 | XMS_ITS | Encounter Summary ---
Author Organization [facility] Address [address] [place] [address] Phone Care Team Providers Care Fire Boss Name Role Phone Watson Perry MD Primary Care Provider [phone] Adeel Covarrubias MD Unavailable [phone] Reason for Referral * Radiology Services (Routine) - Closed Specialty Diagnoses / Procedures Referred By Contjesse t Referred To Contact Radiology Diagnoses Nontoxic uninodular goiter Procedures US THYROID Julieta Fleming PAC [address] [place] [address] Phone: tel: fax: Referral ID Status Reason Start Date Expiration Date Visits Re quested Visits Authorized [id number] Closed 08/14/2022 1 1 Encounter Details Date Type Department Care Team (Latest Contact Info) Description 08/14/2022 Transcribe Orders [facility] Sched[facility] [address] [place] [address] Julieta Fleming PAC [address] [place] [address] Nontoxic uninodular goiter (Primary Dx) Social History Tobacco Use Types [...] on file Legal Sex Female 9:54 AM TECHNICIAN SUPPORT ASSOCIATION Gender Identity Not on file Sexual Orientation Not on file COVID-19 Exposure Response Date Recorded In the last 10 days, have yo u been in contact with someone who was confirmed or suspected to have Coronavirus/COVID-19? No / Unsure 08/09/2022 8:37 AM CDT documented as of this encounter Plan of Treatment Upcoming Encounters Date Type Department Care Team (Late st Contact Info) Description 12/18/2024 2:15 PM TECHNICIAN SUPPORT ASSOCIATION Office Visit [facility] - Neurology [facility] [address] [place] [address] Adeel Covarrubias MD [address] [place] [address] documented as of this encounter Results * US THYROID (08/30/2022 9:30 AM CDT) Anatomical Region Laterality Modality BODY N/A Ultrasound 08/31/2022 9:03 AM CDT Impressions 08/31/2022 9:05 AM CDT IMPRESSION: Solid 1.8 cm mid right thyroid nodule TI-RADS 4, meets criteria for FNA. ??Referral for tissue sampling recommended. REFERENCE: According to the ACR Thyroid Imaging, Reporting and Data System (TI-RADS): White Paper of the ACR TI-RADS Committee Mar, 2017 recommendations regarding the management of thyroid nodules are as follows: 1. ?? TI-RADS 1: Risk of malignancy <2%, no FNA or follow up required. 2. ?? TI-RADS 2: Risk of malignancy <2%, no FNA or follow up required. 3. ?? TI-RADS 3: Risk of malignancy 2%-5%. Nodules 1.5 cm or greater follow up at 1, 3 and 5 years recommended, for nodules 2.5 cm or greater FNA recommended. 4. ?? TI-RADS 4: Risk of malignancy 5%-20% Nodules 1.0 cm or greater follow up at 1, 2, 3 and 5 years recommended, for nodules 1.5 cm or greater FNA recommended 5. ?? TI-RADS 5: Risk of malignancy >20%. Nodules 0.5 cm or greater annual follow up for 5 years recommended, for nodules 1.0 cm or greater FNA recommended. Narrative 08/31/2022 9:05 AM CDT EXAM DESCRIPTION: ?? US THYROID REASON FOR STUDY: ?? Nontoxic single thyroid nodule TECHNIQUE: Ultrasound of the thyroid was performed with grayscale and color doppler. COMPARISON: CT chest 08/09/2022. FINDINGS: RIGHT: The right thyroid lobe measures ?? 4.8 x 2.0 x 2.1 ?? cm. ?? Corresponding to the nodule seen on the chest CT, in the mid right thyroid lobe there is a hypoechoic solid nodule, 1.8 x 1.2 x 1.3 cm with no microcalcifications, TI-RADS 4. ??There is increased vascularity in the right thyroid nodule. LEFT: The left thyroid lobe measures ?? 4.4 x 1.5 x 2.1 ??cm. ?? The left thyroid lobe is normal in echotexture. ISTHMUS: The isthmus measures ?? 0.4 cm ??in AP dimension. ?? The isthmus is normal in echotexture. VASCULARITY: ?? Normal. OTHER: ?? No other significant finding. THIS IS AN ELECTRONICALLY VERIFIED FINAL REPORT 08/31/2022 9:03 AM - Electronically signed by ??Javier Langley M.D. CH: D: ??08/31/2022 9:03 AM T: ??08/31/2022 9:03 AM Report ID: [id number] Reading Location: ??[id number] Procedure Note Javier Langley Jr., MD - 08/31/2022 EXAM DESCRIPTION: US THYROID REASON FOR STUDY: Nontoxic single thyroid nodule TECHNIQUE: Ultrasound of the thyroid was performed with grayscale and color doppler. COMPARISON: CT chest 08/09/2022. FINDINGS: RIGHT: The right thyroid lobe measures 4.8 x 2.0 x 2.1 cm. Corresponding to the nodule seen on the chest CT, in the mid right thyroid lobe there is a hypoechoic solid nodule, 1.8 x 1.2 x 1.3 cm with no microcalcifications, TI-RADS 4. There is increased vascularity in the right thyroid nodule. LEFT: The left thyroid lobe measures 4.4 x 1.5 x 2.1 cm. The left thyroid lobe is normal in echotexture. ISTHMUS: The isthmus measures 0.4 cm in AP dimension. The isthmus is normal in echotexture. VASCULARITY: Normal. OTHER: No other significant finding. THIS IS AN ELECTRONICALLY VERIFIED FINAL REPORT 08/31/2022 9:03 AM - Electronically signed by Javier Langley M.D. CH: JULI Report ID: [id number] Reading Location: [place] [address] IMPRESSION: Solid 1.8 cm mid right thyroid nodule TI-RADS 4, meets criteria for FNA. Referral for tissue sampling recommended. REFERENCE: According to the ACR Thyroid Imaging, Reporting and Data System (TI-RADS): White Paper of the ACR TI-RADS Committee Mar, 2017 recommendations regarding the management of thyroid nodules are as follows: 1. TI-RADS 1: Risk of malignancy <2%, no FNA or follow up required. 2. TI-RADS 2: Risk of malignancy <2%, no FNA or follow up required. 3. TI-RADS 3: Risk of malignancy 2%-5%. Nodules 1.5 cm or greater follow up at 1, 3 and 5 years recommended, for nodules 2.5 cm or greater FNA recommended. 4. TI-RADS 4: Risk of malignancy 5%-20% Nodules 1.0 cm or greater follow up at 1, 2, 3 and 5 years recommended, for nodules 1.5 cm or greater FNA recommended 5. TI-RADS 5: Risk of malignancy >20%. Nodules 0.5 cm or greater annual follow up for 5 years recommended, for nodules 1.0 cm or greater FNA recommended. us Julieta Fleming [facility] IMG US ORDERABLES Final Res ult documented in this encounter Visit Diagnoses Diagnosis Nontoxic uninodular goiter- Primary Nontoxic uninodular goiter documented in this encounter Care Teams Fire Boss Relationship Specialty Start Date End Date Watson Perry MD [address] [place] [address] PCP - General Family Medicine 01/25/18 Adeel Covarrubias MD [address] [place] [address] Consulting Physician Neurology 03/07/22 documented as of this encounter
--- OUTSIDE RECORDS SUMMARY | 2024-11-23 15:07 | XMS_ITS | Encounter Summary ---
Author Organization [facility] Address [address] [facility] [place] [address] Phone Care Team Providers Care Rn Teacher Name Role Phone Watson Perry MD Primary Care Provider [phone] Reason for Visit * Reason Comments Tremors Peripheral Neuropathy * Consult, Test & Initiate Treatment (Routine) - Closed Specialty Diagnoses / Procedures Referred By Contac t Referred To Contact Neurology Diagnoses Polyneuropathy, unspecified Watson Perry MD [address] [place] [address] Phone: tel: fax: Adeel Covarrubias MD Phone: tel: fax: Referral ID Status Reason Start Date Expiration Date Visits Re quested Visits Authorized [id number] Closed 12 Encounter Details Date Type Department Care Team (Late st Contact Info) Description 03/04/2021 9:00 AM CDT Telemedicine [facility] - Neurology [facility] [address] [place] [address] Adeel Covarrubias MD [address] [place] [address] Essential tremor (Primary Dx) Social History Tobacco Use Types Packs/Day Years Used Date Smoking Tobacco: Every Day Cigarettes 0.3 47 Started: 11/19/1977 Smokeless Tobacco: Never Tobacco Cessation:Ready to Q uit: No Alcohol Use Standard Drinks/Week Comments No 0 (1 standard drink = 0.6 oz pur e alcohol) Sexually Active Control Partners Comments Yes Comments No Sex and Gender Information Value Date Recorded Sex Assigned at Not on file Legal Sex Female 9:54 AM TANK HOUSE OPERATOR Gender Identity Not on file Sexual Orientation Not on file documented as of this encounter Progress Notes * Adeel Covarrubias MD - 03/04/2021 9:00 AM CDT Patient was assessed via Telephone for a duration of 15 minutes. Patient verbally consented for this service to be performed and billed. HPI: Janeth Parker is a 71 y.o. female evaluated today for evaluation of her tremors. We tried gabapentin and her tremor worsened but since switching her back to primidone she is doing better. . Current Outpatient Medications: ??? Calcium Citrate-Vitamin D 250-200 MG-UNIT Tablet ??? citalopram (CELEXA) 20 MG Tablet ??? clonazePAM (KlonoPIN) 1 MG Tablet ??? esomeprazole (NEXIUM) 20 MG CAPSULE DELAYED RELEASE ??? fluticasone-vilanterol (BREO ELLIPTA) 100-25 MCG/INH AEROSOL POWDER, BREATH ACTIVATED ??? gabapentin (NEURONTIN) 300 MG Capsule ??? Multiple Vitamin (MULTIVITAMIN PO) ??? [place]-3 Fatty Acids (FISH OIL PO) ??? pramipexole (MIRAPEX) 0.5 MG Tablet ??? primidone (MYSOLINE) 250 MG Tablet ??? propranolol (INDERAL LA) 60 MG CAPSULE SR 24 HR ??? rosuvastatin (CRESTOR) 10 MG Tablet ??? Vitamins/Minerals Tablet The past medical, surgical, family and social histories, and allergies were reviewed and updated asneeded. ROS: All 14 systems reviewed and negative except as mentioned in the HPI. Plan: ICD-10-CM 1. Essential tremor G25.0 - Will continue primidone - Discussed smoking cessation - Addressed controlling anxiety Follow Up: Janeth was asked to follow up with Adeel Covarrubias MD in 6 month(s). The After Visit Summary is printed and will be mailed to the patient. associated with documented in this encounter Plan of Treatment Upcoming Encounters Date Type Department Care Team (Late st Contact Info) Description 12/18/2024 2:15 PM TANK HOUSE OPERATOR Office Visit [facility] - Neurology [facility] [address] [place] [address] Adeel Covarrubias MD [address] [place] [address] documented as of this encounter Visit Diagnoses Diagnosis Essential tremor- Primary Essential and other specified forms of tremor documented in this encounter Care Teams Rn Teacher Relationship Specialty Start Date End Date Watson Perry MD [address] [place] [address] PCP - General Family Medicine 01/25/18 documented as of this encounter
--- OUTSIDE RECORDS SUMMARY | 2024-11-23 15:07 | XMS_ITS | Encounter Summary ---
Author Organization [facility] Address [address] [place] [address] Phone Care Team Providers Care Phlebotomist Supervisor/Instructor Name Role Phone Watson Perry MD Primary Care Provider [phone] Adeel Covarrubias MD Unavailable [phone] Reason for Referral * Radiology Services (Routine) - Closed Specialty Diagnoses / Procedures Referred By Rhea laura Referred To Contact Radiology Diagnoses Nontoxic single thyroid nodule Procedures US GUIDANCE AND THYROID FINE NEEDLE ASPIRATION US GUIDANCE AND THYROID BIOPSY Julieta Fleming PAC [address] [place] [address] Phone: tel: fax: Referral ID Status Reason Start Date Expiration Date Visits Re quested Visits Authorized [id number] Closed 09/05/2022 1 1 Reason for Visit * Auth/Cert Specialty Diagnoses / Procedures Referred By Rhea laura Referred To Contact Diagnoses NONTOXIC SINGLE THYROID NODULE Procedures PRE / POST CARE FOR PROCEDURAL AREA Referral ID Status Reason Start Date Expiration Date Visits Re quested Visits Authorized [id number] 1 1 Encounter Details Date Type Department Care Team (Late st Contact Info) Description 09/19/2022 9:21 AM CDT - 09/19/2022 11:59 PM CDT Hospital Encounter [facility] Ultrasound [address] [place] [address] Lonnie Julieta Phoenix, PAC [address] [place] [address] Provider, Anesthesiologist Discharge Disposition: Discharged to home or Selfcare [...] on file Legal Sex Female 9:54 AM 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 No / Unsure 09/19/2022 9:03 AM CDT documented as of this encounter Last Filed Vital Signs Vital Sign Reading Time Taken Comments Blood Pressure 109/76 09/19/2022 10:03 AM CDT Pulse 76 09/19/2022 10:40 AM CDT Temperature - - Respiratory Rate 16 09/19/2022 10:03 AM CDT Oxygen Saturation 92% 09/19/2022 10:40 AM CDT Inhaled Oxygen Concentration - - Weight - - Height - - Body Mass Index - - documented in this encounter Discharge Instructions * Discharge Instructions* Aydee Riley RN - 09/19/2022 10:26 AM CDT GENERAL GUIDELINES FOR MINIMIZING NAUSEA: ?? Do not take pain medication on an empty stomach ?? Eat small portions of foods because they are easier to digest and move through your stomach muchfaster. ?? Be sure you are staying hydrated. Clear, cool beverages are recommended. Only take what you can tolerate. You might like trying clear soups, flavored gelatin, carbonated beverages, popsicles and ice cubes made of frozen drinks. ?? Avoid the smells of cooking food, especially greasy ones, as the smells make make you nauseated. Discharge Instructions for Fine Needle Aspiration of Thyroid ?? Return to you normal diet and activities ?? Resume your normal activities tomorrow. ?? Keep biopsy site covered today. In the morning remove bandage and then may shower. ?? You may have bruising or slight discomfort at the biopsy site for 1-2 days. This is a normal occurrence . You may apply ice intermittently as needed ?? Resume all your medications as ordered by your physician. Resume aspirin or other blood thinner medications in the AM tomorrow When to call your doctor Call your doctor if you develop any of the following: ?? Nausea and/or vomiting that does not go away ?? Fever over 100.4 F or chills ?? Foul-smelling discharge from the procedure site. ?? Pain not relieved by pain medication ?? Chest pain or shortness of breath ?? Bleeding, warmth, redness, or swelling around the incision documented in this encounter Medications at Time [...] a day 100 Strip 1 06/04[facility]2022 [facility] Use as directed 100 Lancet 1 06/04/2022 Multiple Vitamin (MULTIVITAMIN PO) Take 1 % by mouth daily. [place]-3 Fatty Acids (FISH OIL PO) Take 2 [...] as of this encounter Miscellaneous Notes * Interdisciplinary - Aydee Riley RN - 09/19/2022 10:00 AM CDT Spoke with patient. Reviewed allergies, medication list,and history. Patient Instructed to take no Aspirin, Advil, Aleve,Ibuprofen for 5 days prior to the procedure. Questions answered, with understanding stated by patient. * Aydee Davies RN - 09/19/2022 10:00 AM CDT Pt. Transported to ultrasound . Procedure explained to pt. to see pt. And explain procedure, understanding stated Consent formed signed. Positioned onto table on back * Aydee Davies RN - 09/19/2022 10:00 AM CDT Procedure completed. VSS. Bandaid to right neck. Discharge instructions reviewed. Report called ready for trasnsport documented in this encounter Plan of Treatment Upcoming Encounters Date Type Department Care Team (Late st Contact Info) Description 12/18/2024 2:15 PM FORMULA CLERK [facility] [address] [place] [address] Adeel Covarrubias MD [address] [place] [address] documented as of this encounter Procedures Procedure Name Priority Date/Time Associated Diagnosis Comments US GUIDANCE AND THYROID FINE NEEDLE ASPIRATION Routine 09/19/2022 10:38 AM CDT Nontoxic single thyroid nodule PATHOLOGY CYTOLOGY NON-STEAM SHOVEL OILER Routine 09/19/2022 10:30 AM CDT Nontoxic single thyroid nodule documented in this encounter Results * US GUIDANCE AND THYROID FINE NEEDLE ASPIRATION (09/19/2022 10:38 AM CDT) Anatomical Region Laterality Modality BODY N/A Ultrasound 09/19/2022 11:4 2 AM CDT Addenda Addendum by Tripp Alvarez MD on 09/22/2022 1:23 PM CDT ADDENDUM REPORT: ADDENDUM: ??PATHOLOGY ADDENDUM: ??09/22/2022 Final pathology is now available and has been reviewed. Cytology is consistent with a benign follicular nodule. ?? END OF ADDENDUM REPORT EXAM DESCRIPTION: ?? US GUIDANCE AND THYROID FINE NEEDLE ASPIRATION HISTORY: ?? Indeterminate right thyroid nodule. ?? Ultrasound guided fine-needle aspiration of this nodule was requested. COMPARISON: ?? Ultrasound dated 08/30/2022 TECHNIQUE/FINDINGS: Comparison was made to thyroid ultrasound dated 08/30/2022. ??Immediately prior to the procedure, the healthcare team performed the safety pause and verbally confirmed that the patient, the planned procedure, the site and side were accurate. Preprocedure images redemonstrate the nodule in the right thyroid lobe. ??The skin was prepped using standard aseptic technique. Local anesthesia was achieved with injection of 5 mL of 1% lidocaine in the skin and superficial tissues. Fine needle aspiration was performed of the thyroid nodule under sonographic guidance with 2 passes made with a 25-gauge needle. ??Needle placement was documented with sonographic images. An on-site pathologist confirmed specimen adequacy. No complications were noted. Hemostasis was achieved. A sterile bandage and an ice pack were applied to the site. The patient tolerated the procedure well without complication. ?? Post procedure pain control was adequate. Post procedure education was completed including pain management instructions. Estimated blood loss: ??<5 ??mL IMPRESSION: Ultrasound guided fine-needle aspiration of a ?? right ?? thyroid nodule. ??Pathology is pending. THIS IS AN ELECTRONICALLY VERIFIED FINAL REPORT 09/19/2022 11:42 AM - Electronically signed by ??Tripp Alvarez M.D. AG: AG D: ??09/19/2022 11:42 AM T: ??09/19/2022 11:42 AM Report ID: [id number] Reading Location: ??[id number] THIS IS AN ELECTRONICALLY VERIFIED FINAL REPORT 09/22/2022 1:20 PM ??Addendum Electronically signed by Tripp Alvarez M.D. AG: AG D: ??09/22/2022 1:20 PM T: ??09/22/2022 1:20 PM Report ID: [id number] Reading Location: ??[id number] Impressions 09/19/2022 11:45 AM CDT IMPRESSION: Ultrasound guided fine-needle aspiration of a ?? right ?? thyroid nodule. ??Pathology is pending. Narrative 09/19/2022 11:45 AM CDT EXAM DESCRIPTION: ?? US GUIDANCE AND THYROID FINE NEEDLE ASPIRATION HISTORY: ?? Indeterminate right thyroid nodule. ?? Ultrasound guided fine-needle aspiration of this nodule was requested. COMPARISON: ?? Ultrasound dated 08/30/2022 TECHNIQUE/FINDINGS: Comparison was made to thyroid ultrasound dated 08/30/2022. ??Immediately prior to the procedure, the healthcare team performed the safety pause and verbally confirmed that the patient, the planned procedure, the site and side were accurate. Preprocedure images redemonstrate the nodule in the right thyroid lobe. ??The skin was prepped using standard aseptic technique. Local anesthesia was achieved with injection of 5 mL of 1% lidocaine in the skin and superficial tissues. Fine needle aspiration was performed of the thyroid nodule under sonographic guidance with 2 passes made with a 25-gauge needle. ??Needle placement was documented with sonographic images. An on-site pathologist confirmed specimen adequacy. No complications were noted. Hemostasis was achieved. A sterile bandage and an ice pack were applied to the site. The patient tolerated the procedure well without complication. ?? Post procedure pain control was adequate. Post procedure education was completed including pain management instructions. Estimated blood loss: ??<5 ??mL THIS IS AN ELECTRONICALLY VERIFIED FINAL REPORT 09/19/2022 11:42 AM - Electronically signed by ??Tripp Alvarez M.D. AG: ALONZO D: ??09/19/2022 11:42 AM T: ??09/19/2022 11:42 AM Report ID: [id number] Reading Location: ??[id number] Procedure Note Tripp Alvarez MD - 09/19/2022 EXAM DESCRIPTION: US GUIDANCE AND THYROID FINE NEEDLE ASPIRATION HISTORY: Indeterminate right thyroid nodule. Ultrasound guided fine-needle aspiration of this nodule was requested. COMPARISON: Ultrasound dated 08/30/2022 TECHNIQUE/FINDINGS: Comparison was made to thyroid ultrasound dated 08/30/2022. Immediately prior to the procedure, the healthcare team performed the safety pause and verbally confirmed that the patient, the planned procedure, the site and side were accurate. Preprocedure images redemonstrate the nodule in the right thyroid lobe. The skin was prepped using standard aseptic technique. Local anesthesia was achieved with injection of 5 mL of 1% lidocaine in the skin and superficial tissues. Fine needle aspiration was performed of the thyroid nodule under sonographic guidance with 2 passes made with a 25-gauge needle. Needle placement was documented with sonographic images. An on-site pathologist confirmed specimen adequacy. No complications were noted. Hemostasis was achieved. A sterile bandage and an ice pack were applied to the site. The patient tolerated the procedure well without complication. Post procedure pain control was adequate. Post procedure education was completed including pain management instructions. Estimated blood loss: <5 mL THIS IS AN ELECTRONICALLY VERIFIED FINAL REPORT 09/19/2022 11:42 AM - Electronically signed by Tripp Alvarez M.D. AG: ALONZO Report ID: [id number] Reading Location: [id number] IMPRESSION: Ultrasound guided fine-needle aspiration of a right thyroid nodule. Pathology is pending. us Julieta Fleming [facility] US ORDERABLES Edited Re sult - Final * Pathology Cytology Non-STEAM SHOVEL OILER (09/19/2022 10:30 AM CDT) Case Report Medical Cytology Report ? Case: [id number] ? Authorizing Provider: ??Julieta Fleming, PAC ? Collected: ? 09/19/2022 10:30 AM ? Ordering Location: ? [facility] ? Received: ?09/19/2022 10:51 AM ? [facility] ? Ultrasound ? Pathologist: ? Erin Herring MD ? Specimen: ?Thyroid, Right Thyroid Mid FNA 2 passes, 1030, , [place] ? 09/21/2022 10:57 AM CDT [facility] FINAL DIAGNOSIS THYROID GLAND, RIGHT MID NODULE (1.8 CM), ULTRASOUND GUIDED FINE NEEDLE ASPIRATION (SMEARS): - BENIGN, BETHESDA CATEGORY II. - COMPATIBLE WITH BENIGN FOLLICULAR NODULE. 09/21/2022 10:57 AM CDT [facility] Intraoperative Consultation A. Right Thyroid Mid FNA 2 passes, 1030, , [place] PATHOLOGY (Immediate Interpretation ): Thyroid Gland, Right Mid Nodule (1.8 cm), Ultrasound Guided Fine Needle Aspiration: Episode #1, Passes 1-2 - Adequate for evaluation. Conveyed to Dr. Alvarez by Dr. Herring on September 19, 2022. Time: 10:34 am. Afirma Collected. 09/21/2022 10:57 AM CDT [facility] Gross Description A. Right Thyroid Mid FNA 2 passes, 1030, , [place] Specimen is received labeled with the patient's name, Janeth Parker, and designated right thyroid mid fine needle aspiration 2 passes. This was an ultrasound guided procedure performed by Dr. Alvarez and assisted for adequacy by Dr. Herring. There are two smears stained with Diff-Quik and two smears (fixed in 95% alcohol) for Pap stain are prepared for cytologic examination. ARSEN/sb 09/21/2022 10:57 AM CDT [facility] Microscopic Description Microscopic examination was performed which supports the final diagnosis. All control tissues stained appropriately. Smears show benign-appeari ng follicular cells with abundant colloid and occasional pigmented histiocytes. 09/21/2022 10:57 AM CDT [facility] Tissue THYROID STRUCTURE / Unknown 09/19/2022 10:30 AM CDT 09/19/2022 10:51 AM CDT Julieta Fleming PAC PATHOLOGY/CYTOLOGY ORDERABL ES Final Result [facility] [address] [place] [address] documented in this encounter Visit Diagnoses Diagnosis Nontoxic single thyroid nodule Nontoxic uninodular goiter documented in this encounter Administered Medications Inactive Administered Medications - up to 3 most recent administrations Medication Order MAR Action Action Date Dose Rate Site lidocaine 1 % injection 10 mL 10 mL, Other, ONCE, 1 dose, On Sun09/19/22 at 1100 Given 09/19/2022 10:30 AM CDT 10 mL documented in this encounter Care Teams Phlebotomist Supervisor/Instructor Relationship Specialty Start Date End Date Watson Perry MD [address] [place] [address] PCP - General Family Medicine 01/25/18 Adeel Covarrubias MD [address] [place] [id number] Consulting Physician Neurology 03/07/22 documented as of this encounter
--- OUTSIDE RECORDS SUMMARY | 2024-11-23 15:07 | XMS_ITS | Encounter Summary ---
Author Organization [facility] Address [address] [place] [address] Phone Care Team Providers Care Credit Card Associate Name Role Phone Watson Coleman MD Primary Care Provider [phone] Nicholas Covarrubias MD Unavailable [phone] Reason for Visit * Reason Comments essential tremor * Consult, Test & Initiate Treatment (Routine) - Closed Specialty Diagnoses / Procedures Referred By Contac t Referred To Contact Neurology Diagnoses Essential tremor Watson Coleman MD [address] [place] [address] Phone: tel: fax: Nicholas Covarrubias MD [address] [place] [address] Phone: tel: fax: Referral ID Status Reason Start Date Expiration Date Visits Re quested Visits Authorized [id number] Closed 11 30 Encounter Details Date Type Department Care Team (Late st Contact Info) Description 03/07/2022 9:00 AM CDT Office Visit [facility] - Neurology [facility] [address] [place] [address] Nicholas Covarrubias MD [address] [place] [address] Essential tremor (Primary Dx); Restless leg syndrome Discharge Disposition: Discharged to home or Selfcare Social History Tobacco Use Types Packs/Day Years Used Date Smoking Tobacco: Every Day Cigarettes 0.3 47 Started: 11/19/1977 Smokeless Tobacco: Never Tobacco Cessation:Ready to Q uit: Yes Alcohol Use Standard Drinks/Week Comments No 0 (1 standard drink = 0.6 oz pur e alcohol) Sexually Active Control Partners Comments Yes Comments No Sex and Gender Information Value Date Recorded Sex Assigned at Not on file Legal 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 No / Unsure 03/07/2022 8:55 AM CDT documented as of this encounter Last Filed Vital Signs Vital Sign Reading Time Taken Comments Blood Pressure 110/74 03/07/2022 9:07 AM CDT Pulse 72 03/07/2022 9:07 AM CDT Temperature 36.3 ??C (97.3 ??F) 03/07/2022 9:07 AM CD T Respiratory Rate 16 03/07/2022 9:07 AM CDT Oxygen Saturation 89% 03/07/2022 9:07 AM CDT Inhaled Oxygen Concentration - - Weight 66 kg (145 lb 9.6 oz) 03/07/2022 9:07 AM CDT Height 165.1 cm (5' 5 ) 03/07/2022 9:07 AM CDT Body Mass Index 24.23 03/07/2022 9:07 AM CDT documented in this encounter Progress Notes * Nicholas Covarrubias MD - 03/07/2022 9:00 AM CDT NEUROLOGY CONSULT Assessment and Plan Janeth was seen today for essential tremor. Diagnoses and all orders for this visit: Essential tremor - continue patient on propranolol and primidone Restless leg syndrome - continue Requip and [...] COPD (chronic obstructive pulmonary disease) (HCC) ??? Hyperlipidemia ??? Post-menopausal bleeding Past Surgical History: Procedure Laterality Date ??? DILATION AND CURETTAGE ??? HYSTERECTOMY ??? ORAL SURGERY PROCEDURE bone removal ??? TOE SURGERY bunion Family History Problem Relation Age of Onset ??? Skin Cancer Mother ??? Parkinsonism Father ??? Leukemia/Lymphoma Brother ??? Diabetes Maternal Grandmother Social History Tobacco Use ??? Smoking status: Current Every Day Smoker Packs/day: 0.25 Types: Cigarettes Start date: 11/19/1977 ??? Smokeless tobacco: Never Used Substance Use Topics ??? Alcohol use: No Allergies Allergen Reactions ??? Ibuprofen Rash Current Outpatient Medications: ??? Calcium Citrate-Vitamin D 250-200 MG-UNIT Tablet, Take by mouth., Disp: , Rfl: ??? citalopram (CELEXA) 20 MG Tablet, Take by mouth., Disp: , Rfl: ??? clonazePAM (KlonoPIN) 1 MG Tablet, Take 1 mg by mouth nightly., Disp: , Rfl: ??? esomeprazole (NEXIUM) 20 MG CAPSULE DELAYED RELEASE, Take by mouth., Disp: , Rfl: ??? fluticasone-vilanterol (BREO ELLIPTA) 100-25 MCG/INH AEROSOL POWDER, BREATH ACTIVATED, take 1 Puff by inhalation daily., Disp: , Rfl: ??? Multiple Vitamin (MULTIVITAMIN PO), Take by mouth., Disp: , Rfl: ??? [place]-3 Fatty Acids (FISH OIL PO), Take by mouth., Disp: , Rfl: ??? pramipexole (MIRAPEX) 0.5 MG Tablet, Take by mouth., Disp: , Rfl: ??? primidone (MYSOLINE) 250 MG Tablet, Take 1 tablet by mouth once daily, Disp: 120 Tablet, Rfl: 2 ??? propranolol (INDERAL LA) 60 MG CAPSULE SR 24 HR, Take 1 Cap by mouth daily. (Patient taking differently: Take 60 mg by mouth 2 times daily.), Disp: 90 Cap, Rfl: 1 ??? rosuvastatin (CRESTOR) 10 MG Tablet, , Disp: , Rfl: ??? Vitamins/Minerals Tablet, Take by mouth. (Patient not taking: Reported on 03/07/2022), Disp: , Rfl: Review of Systems: A 14 point Review of Systems is obtained, and is negative other than that mentioned in the History of Present Illness. Objective: VITALS: Blood pressure 110/74, pulse 72, temperature 97.3 ??F (36.3 ??C), temperature source Tympanic, resp. rate 16, height 5' 5 (1.651 m), weight 145 lb 9.6 oz (66 kg), SpO2 (!) 89 %. Weight: Wt Readings from Last 1 Encounters: 03/07/22 145 lb 9.6 oz (66 kg) Body mass index is 24.23 kg/m??. EXAM: General appearance: alert, no distress, [...] Flexors 5/5 5/5 Wrist Extensors 5/5 5/5 Convalescent Sitter 5/5 5/5 Hip Flexors 5/5 5/5 Quadriceps [...] armswing and turns. By: NICHOLAS COVARRUBIAS MD, 03/07/2022, 9:45 AM CDT Primary Care Physician: WATSON COLEMAN MD documented in this encounter Plan of Treatment Upcoming Encounters Date Type Department Care Team (Late st Contact Info) Description 12/18/2024 2:15 PM METAPHYSICIST Office Visit [facility] - Neurology [facility] [address] [place] [address] Nicholas Covarrubias MD [address] [place] [address] documented as of this encounter Visit Diagnoses Diagnosis Essential tremor- Primary Essential and other specified forms of tremor Restless leg syndrome Restless legs syndrome (RLS) documented in this encounter Care Teams Credit Card Associate Relationship Specialty Start Date End Date Watson Coleman MD [address] [place] [address] PCP - General Family Medicine 01/25/18 Nicholas Covarrubias MD [address] [place] [address] Consulting Physician Neurology 03/07/22 documented as of this encounter
--- OUTSIDE RECORDS SUMMARY | 2024-11-23 15:07 | XMS_ITS | Encounter Summary ---
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 Gender Identity Not on file Sexual Orientation [...] st Contact Info) Description 12/18/2024 2:15 PM DAIRY TECHNOLOGIST Office Visit [facility] - Neurology [facility] [address] [place] [address] Adeel Covarrubias MD [address] [place] [address] documented as of this encounter Visit Diagnoses Not on filedocumented in this encounter Care Teams Business Consultant Relationship Specialty Start Date End Date Watson Perry MD [address] [place] [address] PCP - General Family Medicine 01/25/18 Adeel Covarrubias MD [address] [place] [id number] Consulting Physician Neurology 03/07/22 documented as of this encounter
--- OUTSIDE RECORDS SUMMARY | 2024-11-23 15:07 | XMS_ITS | Encounter Summary ---
Author Organization [facility] Address [address] [place] [address] Phone Care Team Providers Care Forest Economics Professor Name Role Phone Watson Perry MD Primary Care Provider [phone] Adeel Covarrubias MD Unavailable Reason for Referral * Radiology Services (Routine) - Closed Specialty Diagnoses / Procedures Referred By Rhea laura Referred To Contact Radiology Diagnoses Thyroid nodule Procedures US THYROID Julieta Fleming PAC [address] [place] [address] Phone: tel: fax: Referral ID Status Reason Start Date Expiration Date Visits Re quested Visits Authorized [id number] Closed 10/22/2023 1 1 MA TABLE OPERATOR Encounter Details Date Type Department Care Team (Latest Contact Info) Description 10/22/2023 Transcribe Orders [facility] Scheduling [address] [place] [address] Julieta Fleming PAC [address] [place] [address] Thyroid nodule (Primary Dx) Social History Tobacco Use Types [...] on file Legal Sex Female 9:54 AM PLASMA TABLE OPERATOR Gender Identity Not on file Sexual Orientation Not on file documented as of this encounter Plan of Treatment Upcoming Encounters Date Type Department Care Team (Late st Contact Info) Description 12/18/2024 2:15 PM PLASMA TABLE OPERATOR Office Visit [facility] - Neurology [facility] [address] [place] [address] Adeel Covarrubias MD [address] [place] [address] documented as of this encounter Results * US THYROID (10/27/2023 11:14 AM PLASMA TABLE OPERATOR) Anatomical Region Laterality Modality BODY N/A Ultrasound 10/30/2023 5:54 AM PLASMA TABLE OPERATOR Impressions 10/30/2023 5:57 AM PLASMA TABLE OPERATOR IMPRESSION: 1.7 cm TR3 right thyroid nodule is not significantly changed. ?? Recommend correlation with prior fine-needle aspiration results. 0.8 cm TR2 right thyroid nodule does not meet criteria for FNA. ACR TI-RADS Risk Category: ??3 REFERENCE: According to the ACR Thyroid Imaging, [...] 1.0 cm or greater FNA recommended. Narrative 10/30/2023 5:57 AM PLASMA TABLE OPERATOR EXAM DESCRIPTION: ?? US THYROID REASON FOR STUDY: ?? Thyroid nodule TECHNIQUE: Ultrasound of the thyroid was performed with grayscale and color doppler. COMPARISON: 09/19/2022 thyroid FNA. ??08/30/2022 thyroid ultrasound FINDINGS: RIGHT: The right thyroid lobe measures ??4.8 x 2.2 x 2.2 ?? cm. ??The right thyroid lobe is normal in echotexture. LEFT: The left thyroid lobe measures ??4.3 x 1.9 x 1.7 ??cm. ??The left thyroid lobe is normal in echotexture. ISTHMUS: The isthmus measures ??0.3 cm ??in AP dimension. ??The isthmus is normal in echotexture. VASCULARITY: ??Normal. OTHER: ??No other significant finding. Nodule: ??1 Location: ??Right superior Size: ??0.6 x 0.8 x 0.7 ??cm Composition: ??Mixed cystic and solid (1) Echogenicity: ??Hyperechoic or isoechoic ( 1) Shape: ??Not taller than wide (0) Margins: ??Smooth or Ill-defined (0) Echogenic foci: ??None (0) Additional Echogenic foci: ??None (0) ACR TI-RADS total points: ??2 ACR TI-RADS risk category: ??TR2 (not suspicious) ACR TI-RADS recommendation: ??No followup is necessary. ?? Nodule: ??2 Location: ??Right mid/lateral Size: ??1.7 x 1.3 x 1.4 ??cm, previously 1.8 x 1.2 x 1.3 cm on 08/30/2022 Composition: ??Solid (2) Echogenicity: ??Hyperechoic or isoechoic ( 1) Shape: ??Not taller than wide (0) Margins: ??Smooth or Ill-defined (0) Echogenic foci: ??None (0) Additional Echogenic foci: ??None (0) ACR TI-RADS total points: ??3 ACR TI-RADS risk category: ??TR3 (mildly suspicious) ACR TI-RADS recommendation: ??Correlate with prior fine-needle aspiration results. ?? THIS IS AN ELECTRONICALLY VERIFIED FINAL REPORT 10/30/2023 5:54 AM - Electronically signed by ??Marco Wallace M.D. MZ: KARL D: ??10/30/2023 5:54 AM T: ??10/30/2023 5:54 AM Report ID: [id number] Reading Location: ??[id number] Procedure Note Marco Wallace MD - 10/30/2023 EXAM DESCRIPTION: US THYROID REASON FOR STUDY: Thyroid nodule TECHNIQUE: Ultrasound of the thyroid was performed with grayscale and color doppler. COMPARISON: 09/19/2022 thyroid FNA. 08/30/2022 thyroid ultrasound FINDINGS: RIGHT: The right thyroid lobe measures 4.8 x 2.2 x 2.2 cm. The right thyroid lobe is normal in echotexture. LEFT: The left thyroid lobe measures 4.3 x 1.9 x 1.7 cm. The left thyroid lobe is normal in echotexture. ISTHMUS: The isthmus measures 0.3 cm in AP dimension. The isthmus is normal in echotexture. VASCULARITY: Normal. OTHER: No other significant finding. Nodule: 1 Location: Right superior Size: 0.6 x 0.8 x 0.7 cm Composition: Mixed cystic and solid (1) Echogenicity: Hyperechoic or isoechoic ( 1) Shape: Not taller than wide (0) Margins: Smooth or Ill-defined (0) Echogenic foci: None (0) Additional Echogenic foci: None (0) ACR TI-RADS total points: 2 ACR TI-RADS risk category: TR2 (not suspicious) ACR TI-RADS recommendation: No followup is necessary. Nodule: 2 Location: Right mid/lateral Size: 1.7 x 1.3 x 1.4 cm, previously 1.8 x 1.2 x 1.3 cm on 08/30/2022 Composition: Solid (2) Echogenicity: Hyperechoic or isoechoic ( 1) Shape: Not taller than wide (0) Margins: Smooth or Ill-defined (0) Echogenic foci: None (0) Additional Echogenic foci: None (0) ACR TI-RADS total points: 3 ACR TI-RADS risk category: TR3 (mildly suspicious) ACR TI-RADS recommendation: Correlate with prior fine-needle aspiration results. THIS IS AN ELECTRONICALLY VERIFIED FINAL REPORT 10/30/2023 5:54 AM - Electronically signed by Marco Wallace M.D. MZ: KARL Report ID: [id number] Reading Location: [place] [address] IMPRESSION: 1.7 cm TR3 right thyroid nodule is not significantly changed. Recommend correlation with prior fine-needle aspiration results. 0.8 cm TR2 right thyroid nodule does not meet criteria for FNA. ACR TI-RADS Risk Category: 3 REFERENCE: According to the ACR Thyroid Imaging, [...] or greater FNA recommended. us Julieta Fleming PAC IMG US ORDERABLES Final Res ult documented in this encounter Visit Diagnoses Diagnosis Thyroid nodule- Primary Nontoxic uninodular goiter Thyroid nodule Nontoxic uninodular goiter documented in this encounter Care Teams Forest Economics Professor Relationship Specialty Start Date End Date Watson Perry MD [address] [place] [id number] PCP - General Family Medicine 01/25/18 Adeel Covarrubias MD [address] [place] [id number] Consulting Physician Neurology 03/07/22 documented as of this encounter
--- OUTSIDE RECORDS SUMMARY | 2024-11-23 15:07 | XMS_ITS | Encounter Summary ---
Author Organization [facility] Address [address] [place] [address] Phone Care Team Providers Care Ror Engineer Name Role Phone Lyla Perry MD Primary Care Provider [phone] Adeel Covarrubias MD Unavailable Reason for Referral * Radiology Services (Routine) - Closed Specialty Diagnoses / Procedures Referred By Contac t Referred To Contact Radiology Diagnoses COVID-19 Procedures ADULT TRANS THORACIC ECHO 2D COMPLT W CONT Jessi Fontanez MD [address] [place] [address] Phone: tel: fax: Referral ID Status Reason Start Date Expiration Date Visits Re quested Visits Authorized [id number] Closed 06/04/2022 1 1 * Consult, Test & Initiate Treatment (Routine) - Denied Specialty Diagnoses / Procedures Referred By Contac t Referred To Contact Endocrinology Diagnoses COVID-19 Jessi Fontanez MD [address] [place] [address] Phone: tel: fax: [facility] - Endocrinology [facility] [address] [place] [address] Phone: tel: fax: Referral ID Status Reason Start Date Expiration Date Visits Re quested Visits Authorized [id number] Denied 06/04/2022 1 1 Scheduling Instructions Janeth is being referred for new diagnosis of diabetes ---- A1c = 6.4, needs diabetic diet and other teaching. Please contact patient and spouse for scheduling questions or concerns. Reason for Visit * Reason Comments Shortness of Breath * Auth/Cert Specialty Diagnoses / Procedures Referred By Contac t Referred To Contact Diagnoses Hypoxia COVID-19 Wayne Gomez MD [address] [place] [address] Phone: tel: fax: Referral ID Status Reason Start Date Expiration Date Visits Re quested Visits Authorized [id number] 1 1 Encounter Details Date Type Department Care Team (Latest Contact Info) Description 05/28/2022 10:34 AM CDT - 06/04/2022 11:39 AM CDT Hospital Encounter [facility] Medical/Surgical Intensive Care [address] [place] [address] Danny Morales MD [address] [place] [address] Wayne Gomez MD [address] [place] [address] Jessi Fontanez MD [address] [place] [address] Acute respiratory failure with hypoxia (HCC) Discharge Disposition: Home Health Care Svc Social History Tobacco Use Types Packs/Day Years Used Date Smoking Tobacco: Every Day Cigarettes 0.3 47 Started: 11/19/1977 Smokeless Tobacco: Never Alcohol Use Standard Drinks/Week Comments No 0 (1 standard drink = 0.6 oz pur e alcohol) Sexually Active Control Partners Comments Yes Comments No Sex and Gender Information Value Date Recorded Sex Assigned at Not on file 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 Yes 05/28/2022 9:23 AM CDT documented as of this encounter Last Filed Vital Signs Vital Sign Reading Time Taken Comments Blood Pressure 134/82 06/04/2022 8:20 AM CDT Pulse 112 06/04/2022 8:20 AM CDT Temperature 36.1 ??C (97 ??F) 06/04/2022 8:20 AM CDT Respiratory Rate 18 06/04/2022 8:24 AM CDT Oxygen Saturation 91% 06/04/2022 8:24 AM CDT Inhaled Oxygen Concentration - - Weight 63.5 kg (140 lb) 05/28/2022 10:45 AM CDT Height 167.6 cm (5' 6 ) 05/28/2022 10:45 AM CDT Body Mass Index 22.6 05/28/2022 10:45 AM CDT documented in this encounter Discharge Summaries * Jessi Fontanez MD - 06/04/2022 9:23 AM CDT [facility] DISCHARGE SUMMARY Name: Janeth Parker Age: 72 y.o. : 1950 Attending Physician: Jessi Fontanez MD Admission Date/Time: 05/28/2022 Expected Discharge Date: 06/04/2022 Primary Care Physician: LYLA PERRY MD Discharging Provider: Jessi Fontanez MD INSTRUCTIONS FOR PHYSICIANS ON FOLLOW UP AFTER DISCHARGE: Follow-up with PCP: LYLA PERRY MD in 1 week Recommended Tests/Labs to order at follow-up: none Pending Labs/Path/Imaging: BMP and CBC, and echocardiogram --- 06/08/2022 Discharge Instructions: Discharge Condition: improved Disposition: Home Diet: Cardiac Diet Activity: activity as tolerated Primary Discharge Diagnosis: Acute respiratory failure with hypoxia (HCC), COVID-19, hyponatremia, anxiety, depression, hyperlipidemia, GERD, essential tremor, diabetes, COPD exacerbation Discharge Diagnoses: As above Active Hospital Problems Diagnosis Date Noted ??? Essential tremor [G25.0] 05/29/2022 ??? Gastroesophageal reflux disease without esophagitis [K21.9] 05/29/2022 ??? Hyperlipidemia [E78.5] 05/29/2022 ??? Anxiety and depression [F41.9, F32.A] 05/29/2022 Resolved Hospital Problems Diagnosis Date Noted Date Resolved ??? Acute respiratory failure with hypoxia (HCC) [J96.01] 05/29/2022 06/04/2022 ??? COPD with acute exacerbation (HCC) [J44.1] 05/29/2022 06/04/2022 ??? Hyponatremia [E87.1] 05/29/2022 06/04/2022 ??? COVID-19 [U07.1] 05/28/2022 06/04/2022 Admitting Diagnoses: As above HOSPITAL COURSE: Janeth Parker was admitted 05/28/2022 with Acute respiratory failure with hypoxia (HCC) . Surgeries performed during stay: * No surgery found * Consults: Treatment Team: Consulting Physician: Jaron Woodard MD Patient was admitted on 05/28/2022 for evaluation of shortness of breath symptoms. Findings were attributed to COVID-19 and COPD exacerbation. With supportive care measures, patient initially had improvement in breathing and gradual worsening of breathing were noted. Patient was able to be placed on to remdesivir and Decadron therapies. Breathing abilities were able to be stabilized, and oxygen supplementation was able to be titrated down. At discharge, patient will require 3 L of oxygen continuous, and patient will follow-up with pulmonology and PCP for re-evaluation for possible titration do wn/wean off of oxygen supplementation. Follow-up of CBC and basic metabolic panel in addition to echocardiogram to be performed on 06/08/2022, and results to be followed up by PCP and test preparation tutor as well. As part of discharge, patient will be discharged with prednisone taper regimen. In addition,diagnosis of diabetes was identified during hospitalization. A1c level and returned 6.4. Outpatientdietary counseling with diabetic clinic has been referred, patient will be provided with prescription for glucometer, test strips, and lancets. Monitoring of glucose levels are requested by patient at discharge and re- evaluation of these values with PCP. Exam Day of Discharge: Temp Av.7 ??F (36.5 ??C) Min: 97 ??F (36.1 ??C) Max: 98.7 ??F (37.1 ??C) BP Min: 101/58 Max: 134/82 Pulse Av.3 Min: 47 Max: 112 Heart Rate (Monitor) Av.6 Min: 49 Max: 76 Resp Av.2 Min: 12 Max: 25 SpO2 Av.8 % Min: 88 % Max: 95 % O2 Flow Rate (l/min): 3 l/min General: alert, and in no distress. Neck: No JVD. CVS: RRR, no murmur. Chest: clear to auscultation, no wheezes, rales or rhonchi, symmetric air entry. Heart: regular rate and rhythm, S1, S2 normal, no murmur, click, rub or gallop Abdominal: soft, nontender, nondistended. Positive Bowel sounds. Extremities: no edema, no clubbing or cyanosis. Urology: deferred Lab / Imaging Review: Lab Results Component Value Date WBC 7.37 06/04/2022 HEMOGLOBIN 14.6 06/04/2022 HEMATOCRIT 44.9 06/04/2022 PLATELETCNT 316 06/04/2022 MCV 95.3 06/04/2022 Lab Results Component Value Date SODIUM 132 (L) 06/04/2022 POTASSIUM 3.9 06/04/2022 CHLORIDE 94 (L) 06/04/2022 CO2VEN 31 06/04/2022 ANIONGAP 10.9 06/04/2022 GLUCOSE 93 06/04/2022 BUN 12 06/04/2022 CREATININE 0.48 (L) 06/04/2022 BCRATIO8 25 (H) 06/04/2022 TOTALPROTEIN 5.7 (L) 06/04/2022 ALBUMIN 3.5 06/04/2022 CALCIUM 8.9 06/04/2022 TBIL 0.3 06/04/2022 SGOTAST 28 06/04/2022 SGPTALT 25 06/04/2022 ALKALINEPHO 60 06/04/2022 GFRNA >60 06/04/2022 GFRA >60 06/04/2022 Lab Results Component Value Date GLUCOSEPOCT 119 (H) 06/03/2022 Lab Results Component Value Date INR 1.0 06/04/2022 PTP 12.7 06/04/2022 Lab Results Component Value Date HGBA1C 6.4 (H) 06/02/2022 No results found for: [id number] Lab Results Component Value Date TROPONINI <0.300 05/29/2022 TROPONINI <0.300 05/28/2022 No results found for: FERRITIN No components found for: FOLATE Lab Results Component Value Date PHARTERIAL 7.44 05/31/2022 PO2ART 51 (L) 05/31/2022 [id number] 78 (HH) 05/31/2022 O2ART 85 (L) 05/31/2022 Lab Results Component Value Date LACTICA 0.7 05/28/2022 XR CHEST 2 VIEWS Result Date: 05/28/2022 IMPRESSION: No acute cardiopulmonary findings. XR CHEST SINGLE VIEW PORTABLE Result Date: 05/31/2022 IMPRESSION: Redemonstration of slight bibasilar airspace opacities; no pleural effusion. CT HEAD OR BRAIN WO CONTRAST Result Date: 05/30/2022 IMPRESSION: 1. No acute intracranial findings. Calvarium intact. 2. Mild bilateral periventricular white matter low densities, nonspecific but most commonly microangiopathic chronic white matter ischemic change. 3. Extensive bilateral chronic paranasal sinusitis. CT ANGIO CHEST W/WO CONTRAST WITH PP (POST PROCESSING) Result Date: 06/02/2022 IMPRESSION: 1. Persistent lower lobe bronchial wall thickening as evidence for bronchitis. 2. Smallbilateral pleural effusions with mild bibasilar atelectasis. 3. Slight improvement in a 10 mm nodular consolidation within the posterior right upper lobe. Mild patchy ground-glass within the left upper lobe is grossly stable compared to 05/28/2022. Small indeterminate cavitary nodules within the central left lower lobe are stable. Recommend short-term interval follow-up CT in 6-8 weeks. 4. Other,unchanged findings as above. CT ANGIO CHEST W/WO CONTRAST WITH PP (POST PROCESSING) Result Date: 05/28/2022 IMPRESSION: No acute aortic abnormality. No pulmonary embolus. Peribronchial inflammatory changes with peripheral mucous plugging, adjacent interstitial ground-glass hazy airspace opacities suggesting bronchitis and pneumonitis. Nodular densities right middle lobe and right lower lobe likely postinflammatory as well. Follow-up as symptoms resolved with CT to ensure resolution suggested. Bilateraladrenal thickening is nonspecific. Please correlate clinically and with laboratory results. Correlate with any prior imaging if available. Consider CT or MR with adrenal protocol to further evaluate if clinically indicated. DISCHARGE MEDICATION LIST: Medication List START taking these medications Blood Glucose Monitoring Suppl Joanna Diagnosis: Diabetes type 2 Blood testing frequency: 3 times a day Glucose Blood Strp Diagnosis: Diabetes type 2 Blood testing frequency: 3 times a day Lancets Misc Use as directed predniSONE 10 MG Tabs Commonly known as: DELTASONE Take 4 Tablets by mouth daily for 2 days, THEN 3 Tablets daily for 2 days, THEN 2 Tablets daily for2 days, THEN 1 Tablet daily for 2 days, THEN 0.5 Tablets daily for 2 days. Start taking on: June 04, 2022 CONTINUE taking these medications Calcium Citrate-Vitamin D 250-200 MG-UNIT Tabs citalopram 20 MG Tabs Commonly known as: CeleXA clonazePAM 1 MG Tabs Commonly known as: KlonoPIN esomeprazole 20 MG Cap-del-rel Commonly known as: NexIUM FISH OIL PO fluticasone-vilanterol 100-25 MCG/INH Aepb Commonly known as: BREO ELLIPTA MULTIVITAMIN PO pramipexole 1.5 MG Tabs Commonly known as: MIRAPEX primidone 250 MG Tabs Commonly known as: MYSOLINE Take 1 tablet by mouth once daily propranolol 60 MG Cap-sr-24hr Commonly known as: INDERAL LA Take 1 Capsule by mouth 2 times daily. rosuvastatin 10 MG Tabs Commonly known as: CRESTOR Where to Get Your Medications Information about where to get these medications is not yet available Ask your nurse or doctor about these medications ?? Blood Glucose Monitoring Suppl Joanna ?? Glucose Blood Strp ?? Lancets Misc ?? predniSONE 10 MG Tabs Time spent on interview, examination, final orders, recommendations, and care coordination for thishospital discharge: Greater than 30 minutes spent in coordinating care --- 33 minutes Thank you very much for allowing the [facility] Adult Hospitalist Service to participate in the care of this patient. If you have any questions, please don't hesitate to call. Signed: Jessi Fontanez MD, 06/04/2022, 9:23 AM CDT documented in this encounter Discharge Instructions * Discharge Instructions* Rose Simms RN - 06/04/2022 9:29 AM CDT [facility]. The agency will call you to schedule initial visit prior to your hospital discharge or within a business day of your hospital discharge. If you have not been contacted to schedule your initial visit or need to contact the agency, [facility] [phone]. [facility] is providing your home oxygen . This will be delivered to your bedside (concentrator to home). If you have questions regarding your equipment, please call [phone]. [facility] This will be delivered to your bedside. * Discharge Instr - Diet* Amanda Bowles RN - 06/04/2022 10:13 AM CDT Regular Diet * Appointments* Jessi Fotnanez MD - 06/04/2022 9:16 AM CDT COVID 19 (+) on 05/28/2022. End quarantine: 06/07/2022. During quarantine time interval patient should have limited contact with other persons, avoid ill contacts, practice social distancing, and patient should wear face mask. Patient should complete course of prednisone taper. New diagnosis of diabetes. Patient should monitor fingerstick glucose levels 3x per day: fasting before breakfast, before lunch, and before dinner. These values should be recorded onto a sheet of paper, and this document should be evaluated by PCP at time of clinic appointment. Diabetic teaching will be provided with [facility] in outpatient setting--- pending scheduling. At discharge, patient will have home oxygen at 3 liters, continuously. Pending follow up with PCP and Orthotist Or Prosthetist for re-evaluation and possible titration down / off oxygen supplementation. Outpatient labs: 06/08/2022 --- CBC, BMP Outpatient echocardiogram --- 06/08/2022 -- pending scheduling time slot, please contact Central Scheduling in am on 06/05/2022. Follow up with PCP in 1 week --- pending scheduling Follow up with Orthotist Or Prosthetist in 2 weeks --- pending scheduling * Attachments The following attachments cannot be sent through Care Everywhere. * Fall Prevention in the Home Adult ([place]) * Home Oxygen Use Adult ([place]) * Shortness of Breath Adult [id number] ([place]) * Hyperglycemia ([place]) documented in this encounter Medications at Time [...] mg by mouth every morning (before breakfast). Glucose Blood Strip Diagnosis: Diabetes type 2 Blood testing frequency: 3 times a day 100 Strip 1 06/04/2022 Lancets Misc Use as directed 100 Lancet 1 06/04/2022 Multiple Vitamin (MULTIVITAMIN PO) Take 1 % by mouth daily. Meredith-3 Fatty Acids (FISH OIL PO) Take 2 [...] take 1 Puff by inhalation daily. 4 predniSONE (DELTASONE) 10 MG Tablet Take 4 Tablets by mouth daily for 2 days, THEN 3 Tablets daily for 2 days, THEN 2 Tablets daily for 2 days, THEN 1 Tablet daily for 2 days, THEN 0.5 Tablets daily for 2 days. 21 Tablet 06/04/2022 2 primidone (MYSOLINE) 250 MG TabletIndication s:Essential tremor Take 1 tablet by mouth once daily 120 Tablet 04/21/2022 2 documented as of this encounter Progress Notes * Jessi Fontanez MD - 06/03/2022 1:25 PM CDT [facility] INPATIENT DAILY PROGRESS NOTE Janeth Parker is a 72 y.o. female at Hospital LOS: 6 days Assessment: Active Hospital Problems Diagnosis Date Noted ??? Acute respiratory failure with hypoxia (HCC) 05/29/2022 ??? COPD with acute exacerbation (HCC) 05/29/2022 ??? Hyponatremia 05/29/2022 ??? Essential tremor 05/29/2022 ??? Gastroesophageal reflux disease without esophagitis 05/29/2022 ??? Hyperlipidemia 05/29/2022 ??? Anxiety and depression 05/29/2022 ??? COVID-19 05/28/2022 Resolved Hospital Problems No resolved problems to display. Vitals: 06/03/22 0900 06/03/22 1000 06/03/22 1136 06/03/22 1200 Temp: 97.1 ??F (36.2 ??C) TempSrc: Tympanic Heart Rate (Monitor): 60 (!) 57 (!) 56 Pulse: 63 56 57 Resp: 21 18 23 BP: 113/67 105/68 112/83 Height: Weight: SpO2: (!) 88% 91% 93% 92% I/O last 3 completed shifts: In: 840 [P.O.:840] Out: 1000 [Urine:1000] Plan: Plan 1. Acute respiratory failure with hypoxia: Patient has been vaccinated for COVID-19 and was saturating 80% on room air requiring 4-5 L of oxygen, patient not on home oxygen, CTA showed no evidence ofPE, patient was positive for COVID- 19 initial ABG showed respiratory acidosis with CO2 retention. Patient was started on remdesivir and Decadron. Continue supportive treatment. 05/30/2022 --- Continue current management 05/31/2022 --- worsening respiratory status noted. Transfer to ICU, Genetic Supervisor consulted, and patient placed onto Bipap 06/01/2022 --- clinically improving, patient has been able to be weaned off of BiPAP. Downgrade pending; 06/02/2022 --- patient maintained on nasal cannula. 06/03/2022 --- clinically improved, pending downgrade to telemetry floor 2. COVID-19 pneumonia: Tested positive on 05/28/2022, patient's had recently been infected with COVID-19, continue Decadron and remdesivir. Continue contact and airborne isolation. 05/30/2022 --- slight improvement over prior day. Continue current medical management. Patient encouraged to use incentive spirometer and lay in prone positioning. 05/31/2022 --- increase Decadron to 10 mg IV Q12H. 06/02/2022 --- patient continues IV Decadron and completion of remdesivir today 06/03/2022 --- deescalation of Decadron therapy will be initiated 3. Hyponatremia: Sodium level 129 on admission improved with IV fluids, continue to monitor. 05/30/2022 --- resolved 4. Gastroesophageal reflux disease: Continue PPI 5. Hyperlipidemia: Continue statin 6. COPD exacerbation 06/01/2022 ---worsening respiratory status having developed yesterday likely associated with COPD exacerbation. Present time improved breathing abilities having developed with management being applied last evening. 06/03/2022 ---trace wheezing noted, no shortness of breath referred 7. Diabetes 06/02/2022 ---elevated glucose levels noted on review of online lab data. No prior diagnosis of diabetes, A1c level attained 6.4. Will supplement fingersticks q.a.c. and HS with mild dose sliding scale. 8. Deconditioning 06/03/2022 --- home PT OT evaluation 9. Disposition: Home with home health, patient might need oxygen at discharge. 10. VTE Prophylaxis: Lovenox 40mg Q24h 11. Code Status: Code Status: Full Code Expected discharge date: 06/03/2022 Subjective: Interval History: Patient has been seen at chair side in ICU. Further improvement in respiratory status noted and referred by patient. PT OT evaluation Review of Systems: A 14 point comprehensive review of systems was negative, except as documented in HPI. Objective: Exam: General: alert, oriented and using oxygen via nasal canula Skin: normal coloration and turgor, no rashes. HEENT: normocephalic, atraumatic. Pupils equal, round and reactive to light. Extraocular movements intact. Oronasopharynx pink and moist, no lesion or exudate. Neck: Supple. No JVD, lymphadenopathy thyromegaly or carotid bruits auscultated. CVS: RRR, S1/S2 normal, no murmurs, gallops or rubs. Chest: Trace wheezes bilaterally, no focal consolidation Abdominal: soft, nontender, nondistended. Positive Bowel sounds, no organomegaly appreciated. Extremities: no edema, no clubbing or cyanosis. Neuro: CN 2-12 grossly intact, normal speech, no focal findings or movement disorder noted. Gait not tested.. Lab Results: Lab Results Component Value Date PHARTERIAL 7.44 05/31/2022 PO2ART 51 (L) 05/31/2022 VCE2NKD 78 (HH) 05/31/2022 O2ART 85 (L) 05/31/2022 Lab Results Component Value Date WBC 4.72 06/03/2022 HEMOGLOBIN 14.3 06/03/2022 HEMATOCRIT 44.3 06/03/2022 PLATELETCNT 325 06/03/2022 MCV 94.9 06/03/2022 Lab Results Component Value Date SODIUM 133 (L) 06/03/2022 POTASSIUM 4.1 06/03/2022 CHLORIDE 92 (L) 06/03/2022 CO2VEN 36 (H) 06/03/2022 ANIONGAP 9.1 06/03/2022 GLUCOSE 123 (H) 06/03/2022 BUN 12 06/03/2022 CREATININE 0.46 (L) 06/03/2022 BCRATIO8 26 (H) 06/03/2022 TOTALPROTEIN 5.6 (L) 06/03/2022 ALBUMIN 3.3 (L) 06/03/2022 CALCIUM 9.0 06/03/2022 TBIL 0.3 06/03/2022 SGOTAST 23 06/03/2022 SGPTALT 11 06/03/2022 ALKALINEPHO 61 06/03/2022 GFRNA >60 06/03/2022 GFRA >60 06/03/2022 Lab Results Component Value Date TROPONINI <0.300 05/29/2022 No components found for: FOLATE Lab Results Component Value Date LACTICA 0.7 05/28/2022 No results found for: [id number] No results found for: FERRITIN Lab Results Component Value Date GLUCOSEPOCT 101 (H) 06/03/2022 EKG: EKG 12 LEAD Result Date: 05/29/2022 Sinus rhythm Comparison Summary: No serial comparison made Summary: Normal ECG Confirmed by Patrick Banks [id number] on 05/29/2022 12:06:21 PM Imaging: No results found. By: Jessi Fontanez MD, 06/03/2022 1:26 PM CDT * Jessi Fontanez MD - 06/02/2022 4:00 PM CDT [facility] DAILY PROGRESS NOTE Janeth Parker is a 72 y.o. female at Hospital LOS: 5 days Assessment: Active Hospital Problems Diagnosis Date Noted ??? Acute respiratory failure with hypoxia (HCC) 05/29/2022 ??? COPD with acute exacerbation (HCC) 05/29/2022 ??? Hyponatremia 05/29/2022 ??? Essential tremor 05/29/2022 ??? Gastroesophageal reflux disease without esophagitis 05/29/2022 ??? Hyperlipidemia 05/29/2022 ??? Anxiety and depression 05/29/2022 ??? COVID-19 05/28/2022 Resolved Hospital Problems No resolved problems to display. Vitals: 06/02/22 0900 06/02/22 1000 06/02/22 1100 06/02/22 1112 Temp: TempSrc: Heart Rate (Monitor): 71 74 70 70 Pulse: 78 72 69 Resp: 17 19 17 19 BP: 122/77 113/73 124/74 Height: Weight: SpO2: (!) 85% (!) 89% 90% 91% I/O last 3 completed shifts: In: 500 [P.O.:500] Out: 0 Plan: Plan 1. Acute respiratory failure with hypoxia: Patient has been vaccinated for COVID-19 and was saturating 80% on room air requiring 4-5 L of oxygen, patient not on home oxygen, CTA showed no evidence ofPE, patient was positive for COVID- 19 initial ABG showed respiratory acidosis with CO2 retention. Patient was started on remdesivir and Decadron. Continue supportive treatment. 05/30/2022 --- Continue current management 05/31/2022 --- worsening respiratory status noted. Transfer to ICU, Genetic Supervisor consulted, and patient placed onto Bipap 06/01/2022 --- clinically improving, patient has been able to be weaned off of BiPAP. Downgrade pending; 06/02/2022 --- patient maintained on nasal cannula. 2. COVID-19 pneumonia: Tested positive on 05/28/2022, patient's had recently been infected with COVID-19, continue Decadron and remdesivir. Continue contact and airborne isolation. 05/30/2022 --- slight improvement over prior day. Continue current medical management. Patient encouraged to use incentive spirometer and lay in prone positioning. 05/31/2022 --- increase Decadron to 10 mg IV Q12H. 06/02/2022 --- patient continues IV Decadron and completion of remdesivir today 3. Hyponatremia: Sodium level 129 on admission improved with IV fluids, continue to monitor. 05/30/2022 --- resolved 4. Gastroesophageal reflux disease: Continue PPI 5. Hyperlipidemia: Continue statin 6. COPD exacerbation 06/01/2022 ---worsening respiratory status having developed yesterday likely associated with COPD exacerbation. Present time improved breathing abilities having developed with management being applied last evening. 7. Diabetes 06/02/2022 ---elevated glucose levels noted on review of online lab data. No prior diagnosis of diabetes, A1c level attained 6.4. Will supplement fingersticks q.a.c. and HS with mild dose sliding scale. 8. Disposition: Home with home health, patient might need oxygen at discharge. 9. VTE Prophylaxis: Lovenox 40mg Q24h 10. Code Status: Code Status: Full Code Expected discharge date: 06/03/2022 Subjective: Interval History: Patient has been seen at chair side in ICU. Improved breathing since yesterday has continued. Patient will complete remdesivir today 5 day course. Review of Systems: A 14 point comprehensive review of systems was negative, except as documented in HPI. Objective: Exam: General: alert, oriented and using oxygen via nasal canula Skin: normal coloration and turgor, no rashes. HEENT: normocephalic, atraumatic. Pupils equal, round and reactive to light. Extraocular movements intact. Oronasopharynx pink and moist, no lesion or exudate. Neck: Supple. No JVD, lymphadenopathy thyromegaly or carotid bruits auscultated. CVS: RRR, S1/S2 normal, no murmurs, gallops or rubs. Chest: Clear to auscultation bilaterally, chest discomfort noted with inspiration, using O2 via nasal cannula Abdominal: soft, nontender, nondistended. Positive Bowel sounds, no organomegaly appreciated. Extremities: no edema, no clubbing or cyanosis. Neuro: CN 2-12 grossly intact, normal speech, no focal findings or movement disorder noted. Gait not tested.. Lab Results: Lab Results Component Value Date PHARTERIAL 7.44 05/31/2022 PO2ART 51 (L) 05/31/2022 [id number] 78 (HH) 05/31/2022 O2ART 85 (L) 05/31/2022 Lab Results Component Value Date WBC 4.16 06/02/2022 HEMOGLOBIN 14.2 06/02/2022 HEMATOCRIT 44.1 06/02/2022 PLATELETCNT 306 06/02/2022 MCV 95.5 06/02/2022 Lab Results Component Value Date SODIUM 133 (L) 06/02/2022 POTASSIUM 4.2 06/02/2022 CHLORIDE 89 (L) 06/02/2022 CO2VEN 38 (H) 06/02/2022 ANIONGAP 10.2 06/02/2022 GLUCOSE 127 (H) 06/02/2022 BUN 15 06/02/2022 CREATININE 0.47 (L) 06/02/2022 BCRATIO8 32 (H) 06/02/2022 TOTALPROTEIN 5.6 (L) 06/02/2022 ALBUMIN 3.5 06/02/2022 CALCIUM 9.2 06/02/2022 TBIL 0.3 06/02/2022 SGOTAST 22 06/02/2022 SGPTALT 19 06/02/2022 ALKALINEPHO 65 06/02/2022 GFRNA >60 06/02/2022 GFRA >60 06/02/2022 Lab Results Component Value Date TROPONINI <0.300 05/29/2022 No components found for: FOLATE Lab Results Component Value Date LACTICA 0.7 05/28/2022 No results found for: [id number] No results found for: FERRITIN Lab Results Component Value Date GLUCOSEPOCT 131 (H) 05/29/2022 EKG: EKG 12 LEAD Result Date: 05/29/2022 Sinus rhythm Comparison Summary: No serial comparison made Summary: Normal ECG Confirmed by Patrick Banks [id number] on 05/29/2022 12:06:21 PM Imaging: CT ANGIO CHEST W/WO CONTRAST WITH PP (POST PROCESSING) Result Date: 06/02/2022 IMPRESSION: 1. Persistent lower lobe bronchial wall thickening as evidence for bronchitis. 2. Smallbilateral pleural effusions with mild bibasilar atelectasis. 3. Slight improvement in a 10 mm nodular consolidation within the posterior right upper lobe. Mild patchy ground-glass within the left upper lobe is grossly stable compared to 05/28/2022. Small indeterminate cavitary nodules within the central left lower lobe are stable. Recommend short-term interval follow-up CT in 6-8 weeks. 4. Other,unchanged findings as above. By: Jessi Fontanez MD, 06/02/2022 4:00 PM CDT * Jessi Fontanez MD - 06/01/2022 5:50 PM CDT [facility] DAILY PROGRESS NOTE Janeth Parker is a 72 y.o. female at Hospital LOS: 4 days Assessment: Active Hospital Problems Diagnosis Date Noted ??? Acute respiratory failure with hypoxia (HCC) 05/29/2022 ??? COPD with acute exacerbation (HCC) 05/29/2022 ??? Hyponatremia 05/29/2022 ??? Essential tremor 05/29/2022 ??? Gastroesophageal reflux disease without esophagitis 05/29/2022 ??? Hyperlipidemia 05/29/2022 ??? Anxiety and depression 05/29/2022 ??? COVID-19 05/28/2022 Resolved Hospital Problems No resolved problems to display. Vitals: 06/01/22 0755 06/01/22 1100 06/01/22 1115 06/01/22 1538 Temp: 98.7 ??F (37.1 ??C) TempSrc: Heart Rate (Monitor): 74 70 84 Pulse: Resp: 21 18 18 BP: Height: Weight: SpO2: (!) 88% (!) 88% (!) 86% (!) 88% I/O last 3 completed shifts: In: 259 [IV Piggyback:259] Out: 1050 [Urine:1050] Plan: Plan 1. Acute respiratory failure with hypoxia: Patient has been vaccinated for COVID-19 and was saturating 80% on room air requiring 4-5 L of oxygen, patient not on home oxygen, CTA showed no evidence ofPE, patient was positive for COVID- 19 initial ABG showed respiratory acidosis with CO2 retention. Patient was started on remdesivir and Decadron. Continue supportive treatment. 05/30/2022 --- Continue current management 05/31/2022 --- worsening respiratory status noted. Transfer to ICU, Genetic Supervisor consulted, and patient placed onto Bipap 06/01/2022 --- clinically improving, patient has been able to be weaned off of BiPAP. Downgrade pending; 2. COVID-19 pneumonia: Tested positive on 05/28/2022, patient's had recently been infected with COVID-19, continue Decadron and remdesivir. Continue contact and airborne isolation. 05/30/2022 --- slight improvement over prior day. Continue current medical management. Patient encouraged to use incentive spirometer and lay in prone positioning. 05/31/2022 --- increase Decadron to 10 mg IV Q12H. 3. Hyponatremia: Sodium level 129 on admission improved with IV fluids, continue to monitor. 05/30/2022 --- resolved 4. Gastroesophageal reflux disease: Continue PPI 5. Hyperlipidemia: Continue statin 6. COPD exacerbation 06/01/2022 ---worsening respiratory status having developed yesterday likely associated with COPD exacerbation. Present time improved breathing abilities having developed with management being applied last evening. 7. Disposition: Home with home health, patient might need oxygen at discharge. 8. VTE Prophylaxis: Lovenox 40mg Q24h 9. Code Status: Code Status: Full Code Expected discharge date: 06/03/2022 Subjective: Interval History: Patient has been seen at bedside in ICU. Overnight, patient noted having worsening respiratory status requiring transferred ICU and being placed on BiPAP. Genetic Supervisor consultation was obtained. Present time, patient has been able to be weaned down to nasal cannula therapy. Review of Systems: A 14 point comprehensive review of systems was negative, except as documented in HPI. Objective: Exam: General: alert, oriented and using oxygen via nasal canula Skin: normal coloration and turgor, no rashes. HEENT: normocephalic, atraumatic. Pupils equal, round and reactive to light. Extraocular movements intact. Oronasopharynx pink and moist, no lesion or exudate. Neck: Supple. No JVD, lymphadenopathy thyromegaly or carotid bruits auscultated. CVS: RRR, S1/S2 normal, no murmurs, gallops or rubs. Chest: Minimal rhonchi bilaterally. Abdominal: soft, nontender, nondistended. Positive Bowel sounds, no organomegaly appreciated. Extremities: no edema, no clubbing or cyanosis. Neuro: CN 2-12 grossly intact, normal speech, no focal findings or movement disorder noted. Gait not tested.. Lab Results: Lab Results Component Value Date PHARTERIAL 7.44 05/31/2022 PO2ART 51 (L) 05/31/2022 [id number] 78 (HH) 05/31/2022 O2ART 85 (L) 05/31/2022 Lab Results Component Value Date WBC 5.68 06/01/2022 HEMOGLOBIN 14.3 06/01/2022 HEMATOCRIT 45.1 06/01/2022 PLATELETCNT 296 06/01/2022 MCV 98.0 (H) 06/01/2022 Lab Results Component Value Date SODIUM 134 (L) 06/01/2022 POTASSIUM 4.5 06/01/2022 CHLORIDE 90 (L) 06/01/2022 CO2VEN 41 (HH) 06/01/2022 ANIONGAP <8.0 (L) 06/01/2022 GLUCOSE 117 (H) 06/01/2022 BUN 11 06/01/2022 CREATININE 0.45 (L) 06/01/2022 BCRATIO8 24 (H) 06/01/2022 TOTALPROTEIN 5.9 (L) 06/01/2022 ALBUMIN 3.5 06/01/2022 CALCIUM 9.5 06/01/2022 TBIL 0.3 06/01/2022 SGOTAST 17 06/01/2022 SGPTALT 16 06/01/2022 ALKALINEPHO 70 06/01/2022 GFRNA >60 06/01/2022 GFRA >60 06/01/2022 Lab Results Component Value Date TROPONINI <0.300 05/29/2022 No components found for: FOLATE Lab Results Component Value Date LACTICA 0.7 05/28/2022 No results found for: [id number] No results found for: FERRITIN Lab Results Component Value Date GLUCOSEPOCT 131 (H) 05/29/2022 EKG: EKG 12 LEAD Result Date: 05/29/2022 Sinus rhythm Comparison Summary: No serial comparison made Summary: Normal ECG Confirmed by Patrick Banks [id number] on 05/29/2022 12:06:21 PM Imaging: No results found. By: Jessi Fontanez MD, 06/01/2022 5:50 PM CDT * Jaron Woodard MD - 06/01/2022 12:29 PM CDT INPATIENT PROGRESS NOTE - Genetic Supervisor Janeth Parker is a 72 y.o. female at Hospital Day (LOS: 4 days) This patient has been followed by Critical Care because of: Acute on chronic hypercarbic respiratory failure, COVID pneumonia, hypoxemia Subjective: Patient feels better today, she has a compensated pH with an elevated pCO2 so we are trying to minimize oxygen delivery. Currently on 1.5 L of oxygen she is saturating 88% Objective: Temp Av.9 ??F (37.2 ??C) Min: 98.1 ??F (36.7 ??C) Max: 99.5 ??F (37.5 ??C) BP Min: 111/67 Max: 140/86 Pulse Av.6 Min: 67 Max: 83 Heart Rate (Monitor) Av Min: 67 Max: 86 Resp Av.7 Min: 17 Max: 27 SpO2 Av.7 % Min: 78 % Max: 98 % O2 Flow Rate (l/min): 1.5 l/min I/O last 3 completed shifts: In: 559 [P.O.:300; IV Piggyback:259] Out: 1800 [Urine:1800] Stool Occurrence: 0 (05/31/22 1400) Emesis Occurrence: 0 (05/30/22 2100) Weights: Wt Readings from Last 3 Encounters: 05/28/22 140 lb (63.5 kg) 05/28/22 140 lb (63.5 kg) 03/07/22 145 lb 9.6 oz (66 kg) PHYSICAL EXAM: Awake and following commands Blood pressure is 126/88 heart rate was 70 respiratory rate was 21 oxygen saturation was 86% to 89% HEENT no discharge per ears nose Neck no jugular distention Lungs rales are present bilaterally no wheezing Cardiovascular was regular non tachycardic Abdomen was soft not distended Extremities shows no significant erythema Skin shows no rash Neurologically the patient is awake and interactive, she has chronic tremors Active Scheduled and PRN meds budesonide-formoterol fumarate, 2 Puff, BID citalopram, 20 mg, Daily dexamethasone, 10 mg, Q12H enoxaparin, 40 mg, Nightly fluticasone, 2 Rolla, Daily ipratropium-albuterol, 2 Puff, 4x Daily pantoprazole, 40 mg, Daily pramipexole, 1.5 mg, BID primidone, 250 mg, Daily propranolol, 60 mg, BID rosuvastatin, 10 mg, Nightly transdermal patch acknowledgement, , Daily acetaminophen, 650 mg, Q4H PRN Or acetaminophen, 650 mg, Q4H PRN albuterol, 2 Puff, Q4H PRN magnesium hydroxide, 30 mL, Daily PRN melatonin, 6 mg, Nightly PRN nicotine, 1 Patch, Daily PRN ondansetron, 4 mg, Q6H PRN Or ondansetron, 4 mg, Q6H PRN polyethylene glycol, 17 g, BID PRN senna, 1 Tablet, BID PRN sodium chloride, 2 Rolla, PRN Lab Review Lab Results Component Value Date WBC 5.68 06/01/2022 HEMOGLOBIN 14.3 06/01/2022 HEMATOCRIT 45.1 06/01/2022 PLATELETCNT 296 06/01/2022 MCV 98.0 (H) 06/01/2022 Lab Results Component Value Date SODIUM 134 (L) 06/01/2022 POTASSIUM 4.5 06/01/2022 CHLORIDE 90 (L) 06/01/2022 CO2VEN 41 (HH) 06/01/2022 GLUCOSE 117 (H) 06/01/2022 BUN 11 06/01/2022 CREATININE 0.45 (L) 06/01/2022 CALCIUM 9.5 06/01/2022 ALBUMIN 3.5 06/01/2022 Lab Results Component Value Date SODIUM 134 (L) 06/01/2022 POTASSIUM 4.5 06/01/2022 CHLORIDE 90 (L) 06/01/2022 CO2VEN 41 (HH) 06/01/2022 GLUCOSE 117 (H) 06/01/2022 ANIONGAP <8.0 (L) 06/01/2022 BUN 11 06/01/2022 CREATININE 0.45 (L) 06/01/2022 CALCIUM 9.5 06/01/2022 Lab Results Component Value Date SODIUM 134 (L) 06/01/2022 POTASSIUM 4.5 06/01/2022 CHLORIDE 90 (L) 06/01/2022 CO2VEN 41 (HH) 06/01/2022 ANIONGAP <8.0 (L) 06/01/2022 GLUCOSE 117 (H) 06/01/2022 BUN 11 06/01/2022 CREATININE 0.45 (L) 06/01/2022 BCRATIO8 24 (H) 06/01/2022 TOTALPROTEIN 5.9 (L) 06/01/2022 ALBUMIN 3.5 06/01/2022 CALCIUM 9.5 06/01/2022 TBIL 0.3 06/01/2022 SGOTAST 17 06/01/2022 SGPTALT 16 06/01/2022 ALKALINEPHO 70 06/01/2022 GFRNA >60 06/01/2022 GFRA >60 06/01/2022 Lab Results Component Value Date INR 0.9 05/31/2022 PTP 12.4 05/31/2022 Lab Results Component Value Date PHARTERIAL 7.44 05/31/2022 PO2ART 51 (L) 05/31/2022 [id number] 78 (HH) 05/31/2022 O2ART 85 (L) 05/31/2022 Radiology Results were Reviewed Labs/chart/meds reviewed. Assessment/Plan: 1. Neurologically: Continue medications for her chronic tremors. Her mental status improved after her pCO2 came down 2. Cardiovascular: No acute cardiac dysrhythmic events. 3. Respiratory: Failure associated with COVID-19 related pneumonia and CO2 retention from COPD. Will try to minimize oxygen to achieve saturations in the high 80s. Continue steroids and updrafts. Continue to use BiPAP at night. Will decrease steroids 4. GI: Tolerating p.o. intake. Diet was advanced 5. and renal: BUN and creatinine overall stable 6. Endocrine: Blood sugars stable on the chemistries 7. Hematologically: CBC is stable 8. DVT prophylaxis: Continue Lovenox. D-dimer is only minimally elevated 9. Id: Concluded remdesivir Stable to move out of the ICU Voice recognition software was used to dictate this note. In spite of proofreading, typographical and/or content errors may have occurred. Jaron Hernandez MD 06/01/2022 12:32 PM CDT * Jessi Fontanez MD - 05/31/2022 9:17 PM CDT [facility] INPAT[facility] DAILY PROGRESS NOTE Janeth Parker is a 72 y.o. female at Hospital LOS: 3 days Assessment: Active Hospital Problems Diagnosis Date Noted ??? Acute respiratory failure with hypoxia (HCC) 05/29/2022 ??? COPD with acute exacerbation (HCC) 05/29/2022 ??? Hyponatremia 05/29/2022 ??? Essential tremor 05/29/2022 ??? Gastroesophageal reflux disease without esophagitis 05/29/2022 ??? Hyperlipidemia 05/29/2022 ??? Anxiety and depression 05/29/2022 ??? COVID-19 05/28/2022 Resolved Hospital Problems No resolved problems to display. Vitals: 05/31/22 1855 05/31/22 1925 05/31/226 05/31/221926 Temp: TempSrc: Heart Rate (Monitor): 73 Pulse: Resp: BP: Height: Weight: SpO2: (!) 85% (!) 88% 90% I/O last 3 completed shifts: In: 540 [P.O.:540] Out: 1050 [Urine:1050] Plan: Plan 1. Acute respiratory failure with hypoxia: Patient has been vaccinated for COVID-19 and was saturating 80% on room air requiring 4-5 L of oxygen, patient not on home oxygen, CTA showed no evidence ofPE, patient was positive for COVID- 19 initial ABG showed respiratory acidosis with CO2 retention. Patient was started on remdesivir and Decadron. Continue supportive treatment. 05/30/2022 --- Continue current management 05/31/2022 --- worsening respiratory status noted. Transfer to ICU, Genetic Supervisor consulted, and patient placed onto Bipap 2. COVID-19 pneumonia: Tested positive on 05/28/2022, patient's had recently been infected with COVID-19, continue Decadron and remdesivir. Continue contact and airborne isolation. 05/30/2022 --- slight improvement over prior day. Continue current medical management. Patient encouraged to use incentive spirometer and lay in prone positioning. 05/31/2022 --- increase Decadron to 10 mg IV Q12H. 3. Hyponatremia: Sodium level 129 on admission improved with IV fluids, continue to monitor. 05/30/2022 --- resolved 4. Gastroesophageal reflux disease: Continue PPI 5. Hyperlipidemia: Continue statin 6. Disposition: Home with home health, patient might need oxygen at discharge. 7. VTE Prophylaxis: Lovenox 40mg Q24h 8. Code Status: Code Status: Full Code Expected discharge date: 06/03/2022 Subjective: Interval History: Patient has been seen at bedside. Worsening respiratory status noted. Patient hasbeen transferred to ICU. Genetic Supervisor consulted. Review of Systems: A 14 point comprehensive review of systems was negative, except as documented in HPI. Objective: Exam: General: alert, oriented and using oxygen via nasal canula Skin: normal coloration and turgor, no rashes. HEENT: normocephalic, atraumatic. Pupils equal, round and reactive to light. Extraocular movements intact. Oronasopharynx pink and moist, no lesion or exudate. Neck: Supple. No JVD, lymphadenopathy thyromegaly or carotid bruits auscultated. CVS: RRR, S1/S2 normal, no murmurs, gallops or rubs. Chest: clear to auscultation, no wheezes, rales or rhonchi, symmetric air entry and normal respiratory effort. Abdominal: soft, nontender, nondistended. Positive Bowel sounds, no organomegaly appreciated. Extremities: no edema, no clubbing or cyanosis. Neuro: CN 2-12 grossly intact, normal speech, no focal findings or movement disorder noted. Gait not tested.. Lab Results: Lab Results Component Value Date PHARTERIAL 7.44 05/31/2022 PO2ART 51 (L) 05/31/2022 [id number] 78 (HH) 05/31/2022 O2ART 85 (L) 05/31/2022 Lab Results Component Value Date WBC 5.65 05/31/2022 HEMOGLOBIN 14.4 05/31/2022 HEMATOCRIT 48.4 (H) 05/31/2022 PLATELETCNT 302 05/31/2022 MCV 105.4 (H) 05/31/2022 Lab Results Component Value Date SODIUM 135 (L) 05/31/2022 POTASSIUM 4.5 05/31/2022 CHLORIDE 91 (L) 05/31/2022 CO2VEN 44 (HH) 05/31/2022 ANIONGAP <8.0 (L) 05/31/2022 GLUCOSE 127 (H) 05/31/2022 BUN 8 05/31/2022 CREATININE 0.41 (L) 05/31/2022 BCRATIO8 20 05/31/2022 TOTALPROTEIN 5.8 (L) 05/31/2022 ALBUMIN 3.4 (L) 05/31/2022 CALCIUM 8.9 05/31/2022 TBIL <0.3 05/31/2022 SGOTAST 14 05/31/2022 SGPTALT 16 05/31/2022 ALKALINEPHO 69 05/31/2022 GFRNA >60 05/31/2022 GFRA >60 05/31/2022 Lab Results Component Value Date TROPONINI <0.300 05/29/2022 No components found for: FOLATE Lab Results Component Value Date LACTICA 0.7 05/28/2022 No results found for: [id number] No results found for: FERRITIN Lab Results Component Value Date GLUCOSEPOCT 131 (H) 05/29/2022 EKG: EKG 12 LEAD Result Date: 05/29/2022 Sinus rhythm Comparison Summary: No serial comparison made Summary: Normal ECG Confirmed by Patrick Banks [id number] on 05/29/2022 12:06:21 PM Imaging: XR CHEST SINGLE VIEW PORTABLE Result Date: 05/31/2022 IMPRESSION: Redemonstration of slight bibasilar airspace opacities; no pleural effusion. By: Jessi Fontanez MD, 05/31/2022 9:17 PM CDT * Jessi Fontanez MD - 05/30/2022 10:53 PM CDT [facility] DAILY PROGRESS NOTE Janeth Parker is a 72 y.o. female at Hospital LOS: 2 days Assessment: Active Hospital Problems Diagnosis Date Noted ??? Acute respiratory failure with hypoxia (HCC) 05/29/2022 ??? COPD with acute exacerbation (HCC) 05/29/2022 ??? Hyponatremia 05/29/2022 ??? Essential tremor 05/29/2022 ??? Gastroesophageal reflux disease without esophagitis 05/29/2022 ??? Hyperlipidemia 05/29/2022 ??? Anxiety and depression 05/29/2022 ??? COVID-19 05/28/2022 Resolved Hospital Problems No resolved problems to display. Vitals: 05/30/22 1936 05/30/22205205/30/22211505/30/22 2241 Temp: 97.6 ??F (36.4 ??C) TempSrc: Heart Rate (Monitor): 75 72 63 Pulse: Resp: 16 20 BP: 111/55 Height: Weight: SpO2: 94% 91% 92% I/O last 3 completed shifts: In: - Out: 275 [Urine:275] Plan: Plan 1. Acute respiratory failure with hypoxia: Patient has been vaccinated for COVID-19 and was saturating 80% on room air requiring 4-5 L of oxygen, patient not on home oxygen, CTA showed no evidence ofPE, patient was positive for COVID- 19 initial ABG showed respiratory acidosis with CO2 retention. Patient was started on remdesivir and Decadron. Continue supportive treatment. 05/30/2022 --- Continue current management 2. COVID-19 pneumonia: Tested positive on 05/28/2022, patient's had recently been infected with COVID-19, continue Decadron and remdesivir. Continue contact and airborne isolation. 05/30/2022 --- slight improvement over prior day. Continue current medical management. Patient encouraged to use incentive spirometer and lay in prone positioning. 3. Hyponatremia: Sodium level 129 on admission improved with IV fluids, continue to monitor. 05/30/2022 --- resolved 4. Gastroesophageal reflux disease: Continue PPI 5. Hyperlipidemia: Continue statin 6. Disposition: Home with home health, patient might need oxygen at discharge. 7. VTE Prophylaxis: Lovenox 40mg Q24h 8. Code Status: Code Status: Full Code Expected discharge date: 06/03/2022 Subjective: Interval History: Patient has been seen at bedside. Some improvement over prior day noted. Review of Systems: A 14 point comprehensive review of systems was negative, except as documented in HPI. Objective: Exam: General: alert, oriented and using oxygen via nasal canula Skin: normal coloration and turgor, no rashes. HEENT: normocephalic, atraumatic. Pupils equal, round and reactive to light. Extraocular movements intact. Oronasopharynx pink and moist, no lesion or exudate. Neck: Supple. No JVD, lymphadenopathy thyromegaly or carotid bruits auscultated. CVS: RRR, S1/S2 normal, no murmurs, gallops or rubs. Chest: clear to auscultation, no wheezes, rales or rhonchi, symmetric air entry and normal respiratory effort. Abdominal: soft, nontender, nondistended. Positive Bowel sounds, no organomegaly appreciated. Extremities: no edema, no clubbing or cyanosis. Neuro: CN 2-12 grossly intact, normal speech, no focal findings or movement disorder noted. Gait not tested.. Lab Results: Lab Results Component Value Date PHARTERIAL 7.32 (L) 05/28/2022 PO2ART 76 05/28/2022 [id number] 51 (H) 05/28/2022 O2ART 92 (L) 05/28/2022 Lab Results Component Value Date WBC 7.10 05/30/2022 HEMOGLOBIN 14.1 05/30/2022 HEMATOCRIT 47.5 (H) 05/30/2022 PLATELETCNT 259 05/30/2022 MCV 104.4 (H) 05/30/2022 Lab Results Component Value Date SODIUM 136 05/30/2022 POTASSIUM 4.7 05/30/2022 CHLORIDE 98 (L) 05/30/2022 CO2VEN 35 (H) 05/30/2022 ANIONGAP <8.0 (L) 05/30/2022 GLUCOSE 122 (H) 05/30/2022 BUN 9 05/30/2022 CREATININE 0.38 (L) 05/30/2022 BCRATIO8 24 (H) 05/30/2022 TOTALPROTEIN 5.6 (L) 05/30/2022 ALBUMIN 3.4 (L) 05/30/2022 CALCIUM 8.7 (L) 05/30/2022 TBIL <0.3 05/30/2022 SGOTAST 17 05/30/2022 SGPTALT 16 05/30/2022 ALKALINEPHO 63 05/30/2022 GFRNA >60 05/30/2022 GFRA >60 05/30/2022 Lab Results Component Value Date TROPONINI <0.300 05/29/2022 No components found for: FOLATE Lab Results Component Value Date LACTICA 0.7 05/28/2022 No results found for: [id number] No results found for: FERRITIN Lab Results Component Value Date GLUCOSEPOCT 131 (H) 05/29/2022 EKG: EKG 12 LEAD Result Date: 05/29/2022 Sinus rhythm Comparison Summary: No serial comparison made Summary: Normal ECG Confirmed by Patrick Banks [id number] on 05/29/2022 12:06:21 PM Imaging: CT HEAD OR BRAIN WO CONTRAST Result Date: 05/30/2022 IMPRESSION: 1. No acute intracranial findings. Calvarium intact. 2. Mild bilateral periventricular white matter low densities, nonspecific but most commonly microangiopathic chronic white matter ischemic change. 3. Extensive bilateral chronic paranasal sinusitis. By: Jessi Fontanez MD, 05/30/2022 10:53 PM CDT * Wayne Gomez MD - 05/29/2022 5:24 PM CDT [facility] DAILY PROGRESS NOTE Janeth Parker is a 72 y.o. female at Hospital LOS: 1 day Assessment: Active Hospital Problems Diagnosis Date Noted ??? Acute respiratory failure with hypoxia (HCC) 05/29/2022 ??? COPD with acute exacerbation (HCC) 05/29/2022 ??? Hyponatremia 05/29/2022 ??? Essential tremor 05/29/2022 ??? Gastroesophageal reflux disease without esophagitis 05/29/2022 ??? Hyperlipidemia 05/29/2022 ??? Anxiety and depression 05/29/2022 ??? COVID-19 05/28/2022 Resolved Hospital Problems No resolved problems to display. Vitals: 05/29/22 1316 05/29/22 1355 05/29/22 1440 05/29/22 1501 Temp: 98.4 ??F (36.9 ??C) 98.4 ??F (36.9 ??C) TempSrc: Tympanic Heart Rate (Monitor): 75 75 Pulse: 74 Resp: 20 BP: 99/61 Height: Weight: SpO2: (!) 88% (!) 87% 95% O2 Flow Rate (l/min): 6 l/min O2 Device: High flow nasal cannula Body mass index is 22.6 kg/m??. I/O last 3 completed shifts: In: 1420 [P.O.:1080; I.V.:340] Out: - Plan: Plan Assessment & Plan: 1. Acute respiratory failure with hypoxia: Patient has been vaccinated for COVID-19 and was saturating 80% on room air requiring 4-5 L of oxygen, patient not on home oxygen, CTA showed no evidence ofPE, patient was positive for COVID- 19 initial ABG showed respiratory acidosis with CO2 retention. Patient was started on remdesivir and Decadron. Continue supportive treatment. 2. COVID-19 pneumonia: Tested positive on 05/28/2022, patient's had recently been infected with COVID-19, continue Decadron and remdesivir. Continue contact and airborne isolation. 3. Hyponatremia: Sodium level 129 on admission improved with IV fluids, continue to monitor. 4. Gastroesophageal reflux disease: Continue PPI 5. Hyperlipidemia: Continue statin 6. Disposition: Home with home health, patient might need oxygen at discharge. 7. VTE Prophylaxis: Lovenox 40mg Q24h 8. Code Status: Code Status: Full Code Subjective: Interval History: No acute events overnight. Patient does not complain of any new symptoms. Feels better, able to tolerate diet well. Patient currently on 5 L of oxygen via nasal cannula. Review of Systems: A 14 point comprehensive review of systems was negative, except as documented in HPI. Intake/Output Summary (Last 24 hours) at 05/29/2022 1724 Last data filed at 05/29/2022 1438 Gross per 24 hour Intake 1420 ml Output -- Net 1420 ml Inpatient Scheduled Medications: budesonide-formoterol fumarate, 2 Puff, BID citalopram, 20 mg, Daily clonazePAM, 1 mg, Nightly dexamethasone, 6 mg, Daily Or dexamethasone, 6 mg, Daily enoxaparin, 40 mg, Nightly pantoprazole, 40 mg, Daily pramipexole, 1.5 mg, BID primidone, 250 mg, Daily propranolol, 60 mg, BID remdesivir IVPB, 100 mg, Q24H rosuvastatin, 10 mg, Nightly transdermal patch acknowledgement, , Daily Inpatient PRN Medications: acetaminophen, 650 mg, Q4H PRN Or acetaminophen, 650 mg, Q4H PRN albuterol, 2 Puff, Q4H PRN magnesium hydroxide, 30 mL, Daily PRN melatonin, 6 mg, Nightly PRN nicotine, 1 Patch, Daily PRN ondansetron, 4 mg, Q6H PRN Or ondansetron, 4 mg, Q6H PRN polyethylene glycol, 17 g, BID PRN senna, 1 Tablet, BID PRN Inpatient IV Infusions: sodium chloride, Last Rate: 75 mL/hr at 05/28/22 2300 Objective: Exam: General: alert, moderately built and nourished, not in any distress Skin: Normal skin turgor, no rashes Head: Normocephalic, without obvious abnormality HEENT: PERRLA, sclera anicteric Neck: normal, supple, no thyromegaly Heart: regular rate and rhythm, S1, S2 normal, no murmur, click, rub or gallop Lungs: clear to auscultation bilaterally, no rhonchi or wheezes Abdominal: soft, non-tender; bowel sounds normal; no masses, no organomegaly Extremities: normal strength, tone, and muscle mass Neuro: oriented x3, CN II-XII intact Psychological: appropriate Lab Results: Lab Results Component Value Date PHARTERIAL 7.32 (L) 05/28/2022 PO2ART 76 05/28/2022 [id number] 51 (H) 05/28/2022 O2ART 92 (L) 05/28/2022 Lab Results Component Value Date WBC 6.69 05/29/2022 HEMOGLOBIN 15.4 05/29/2022 HEMATOCRIT 51.8 (H) 05/29/2022 PLATELETCNT 308 05/29/2022 MCV 103.8 (H) 05/29/2022 Lab Results Component Value Date SODIUM 138 05/29/2022 POTASSIUM 4.5 05/29/2022 CHLORIDE 95 (L) 05/29/2022 CO2VEN 37 (H) 05/29/2022 ANIONGAP 10.5 05/29/2022 GLUCOSE 92 05/29/2022 BUN 9 05/29/2022 CREATININE 0.51 (L) 05/29/2022 BCRATIO8 18 05/29/2022 TOTALPROTEIN 6.4 05/29/2022 ALBUMIN 3.8 05/29/2022 CALCIUM 9.2 05/29/2022 TBIL <0.3 05/29/2022 SGOTAST 17 05/29/2022 SGPTALT 16 05/29/2022 ALKALINEPHO 79 05/29/2022 GFRNA >60 05/29/2022 GFRA >60 05/29/2022 Lab Results Component Value Date TROPONINI <0.300 05/29/2022 No components found for: FOLATE Lab Results Component Value Date LACTICA 0.7 05/28/2022 No results found for: [id number] No results found for: FERRITIN Lab Results Component Value Date GLUCOSEPOCT 131 (H) 05/29/2022 EKG: EKG 12 LEAD Result Date: 05/29/2022 Sinus rhythm Comparison Summary: No serial comparison made Summary: Normal ECG Confirmed by Patrick Banks [id number] on 05/29/2022 12:06:21 PM Imaging: No results found. By: Wayne Gomez MD, 05/29/2022 5:24 PM CDT documented in this encounter H&P Notes * Edwige Reyez APRN, WATER ATTENDANT - 05/28/2022 7:24 PM CDT Images from the original note were not included. HOSPITALIST ADMISSION HISTORY & PHYSICAL EXAM PATIENT NAME: Janeth Parker, : 1950, MR#[id number] CHIEF COMPLAINT Shortness of breath HPI Janeth Parker is a 72 y.o. female with a PMHx of who presented to the ED with complaints of shortness of breath. Patient states she developed a headache with shortness of breath approximately 1 week ago. tested positive for COVID last week. The patient reports increased shortness of breath today, prompting her to seek treatment at urgent care. The patient's oxygen saturation was 80% on room air at urgent care and she was tested for COVID which was negative. She was subsequently sent to the ED for further evaluation. Reports chronic cough which is unchanged but denies fever and chills. Endorses intermittent waxing/waning generalized chest heaviness. Denies abdominal pain, nausea, vomiting, diarrhea, and dysuria. CTA chest performed during the ED evaluation revealed no acute aortic abnormality, no pulmonary embolus. There was evidence nico bronchial inflammatory changes with peripheral mucous plugging, and adjacent interstitial ground-glass hazy airspace opacities suggestive of bronchitis and pneumonitis. The patient was tested for COVID in the ED which was positive. She was given IV Decadron, bronchodilators, and remdesivir. Additional lab analysis remarkable for sodium 129, chloride 89, CO2 35, abg 7.32/51/76/26.8. Plan for admission for the management of acute hypoxic respiratory failure secondary to COVID-19 with possible COPD exacerbation. HOME MEDICATIONS: Prior to Admission Medications Prescriptions Last Dose Informant Patient Reported? Taking? Calcium Citrate-Vitamin D 250-200 MG-UNIT Tablet 05/28/2022 at 0900 Yes Yes Sig: Take by mouth. Multiple Vitamin (MULTIVITAMIN PO) 05/28/2022 at 0900 Yes Yes Sig: Take by mouth. Meredith-3 Fatty Acids (FISH OIL PO) 05/28/2022 at 0900 Yes Yes Sig: Take by mouth. citalopram (CELEXA) 20 MG Tablet 05/28/2022 at 0900 Yes Yes Sig: Take by mouth. clonazePAM (KlonoPIN) 1 MG Tablet 05/27/2022 at 2100 Yes Yes Sig: Take 1 mg by mouth nightly. esomeprazole (NEXIUM) 20 MG CAPSULE DELAYED RELEASE 05/28/2022 at 0900 Yes Yes Sig: Take by mouth. fluticasone-vilanterol (BREO ELLIPTA) 100-25 MCG/INH AEROSOL POWDER, BREATH ACTIVATED 05/28/2022 at 0800 Yes Yes Sig: take 1 Puff by inhalation daily. pramipexole (MIRAPEX) 1.5 MG Tablet Unknown at Unknown time Yes No Sig: Take 1.5 mg by mouth 2 times daily. primidone (MYSOLINE) 250 MG Tablet 05/28/2022 at 0900 No Yes Sig: Take 1 tablet by mouth once daily propranolol (INDERAL LA) 60 MG CAPSULE SR 24 HR 05/28/2022 at 0900 No Yes Sig: Take 1 Capsule by mouth 2 times daily. rosuvastatin (CRESTOR) 10 MG Tablet 05/28/2022 at 0900 Yes Yes Facility-Administered Medications: None ALLERGIES: Allergies Description Type Start Date End Date Comment Verified Inspector And Mender Ibuprofen Unknown 01-Feb-2018 Severity: Medium Reactions: Rosina Spicer, Selam I, CHIEF FINANCIAL OFFICER REVIEW OF SYSTEMS: Review of Systems Constitutional: Positive for fever. Respiratory: Positive for shortness of breath. Cardiovascular: Positive for chest pain. Neurological: Positive for headaches. PAST MEDICAL HISTORY She has a past medical history of COPD (chronic obstructive pulmonary disease) (HCC), GERD (gastroesophageal reflux disease), Hyperlipidemia, Post-menopausal bleeding, and Tremors of nervous system. PAST SURGICAL HISTORY: has a past surgical history that includes Toe Surgery; oral surgery procedure; dilation and curettage; and Hysterectomy. FAMILY HISTORY: family history includes Diabetes in her maternal grandmother; Leukemia/Lymphoma in her brother; Parkinsonism in her father; Skin Cancer in her mother. SOCIAL HISTORY : reports that she has been smoking cigarettes. She started smoking about 44 years ago. She has been smoking about 0.25 packs per day. She has never used smokeless tobacco. She reports that she does not drink alcohol and does not use drugs. PHYSICAL EXAM : VITALS: BP 93/57 Pulse (!) 17 Temp 97.6 ??F (36.4 ??C) (Tympanic) Resp 18 Ht 5' 6 (1.676 m) Wt 140 lb (63.5 kg) SpO2 92% BMI 22.60 kg/m?? Temp (24hrs), Av ??F (36.1 ??C), Min:96.5 ??F (35.8 ??C), Max:97.8 ??F (36.6 ??C) Weight: Wt Readings from Last 1 Encounters: 05/28/22 140 lb (63.5 kg) Body mass index is 22.6 kg/m??. EXAM: Physical Exam Constitutional: General: She is awake. She is not in acute distress. Appearance: Normal appearance. She is not ill-appearing. Interventions: Nasal cannula in place. HENT: Head: Normocephalic and atraumatic. Eyes: Extraocular Movements: Extraocular movements intact. Cardiovascular: Rate and Rhythm: Normal rate and regular rhythm. Pulses: Normal pulses. Pulmonary: Effort: Pulmonary effort is normal. Breath sounds: Wheezing present. Comments: Labored respirations Abdominal: General: Abdomen is flat. Bowel sounds are normal. There is no distension. Palpations: Abdomen is soft. Tenderness: There is no abdominal tenderness. Musculoskeletal: Cervical back: Normal range of motion and neck supple. Right lower leg: No edema. Left lower leg: No edema. Skin: General: Skin is warm and dry. Capillary Refill: Capillary refill takes less than 2 seconds. Neurological: Mental Status: She is alert and oriented to person, place, and time. GCS: GCS eye subscore is 4. GCS verbal subscore is 5. GCS motor subscore is 6. Cranial Nerves: Cranial nerves are intact. Psychiatric: Behavior: Behavior is cooperative. DATA REVIEW : XR CHEST 2 VIEWS Result Date: 05/28/2022 IMPRESSION: No acute cardiopulmonary findings. CT ANGIO CHEST W/WO CONTRAST WITH PP (POST PROCESSING) Result Date: 05/28/2022 IMPRESSION: No acute aortic abnormality. No pulmonary embolus. Peribronchial inflammatory changes with peripheral mucous plugging, adjacent interstitial ground-glass hazy airspace opacities suggesting bronchitis and pneumonitis. Nodular densities right middle lobe and right lower lobe likely postinflammatory as well. Follow-up as symptoms resolved with CT to ensure resolution suggested. Bilateraladrenal thickening is nonspecific. Please correlate clinically and with laboratory results. Correlate with any prior imaging if available. Consider CT or MR with adrenal protocol to further evaluate if clinically indicated. EKG: UA: Results for orders placed or performed during the hospital encounter of 12/26/19 URINALYSIS REFLEX IF INDICATED BY ABNORMAL RESULTS Result Value Ref Range Status SPECIFIC GRAVITY 1.010 1.003 - 1.030 Final URINE PH 6.0 5.0 - 9.0 Final WBC ESTERASE Negative Negative Final NITRITE Negative Negative Final PROTEIN, RANDOM URINE Negative Negative Final URINE GLUCOSE, QUAL Negative Negative Final URINE KETONES Negative Negative Final UROBILINOGEN Normal Normal mg/dL Final URINE BILIRUBIN Negative Negative Final URINE BLOOD 250 /uL (A) Negative sheila/ul Final URINALYSIS COLOR Yellow Final URINALYSIS CLARITY Slightly Cloudy Final WBC (Urine) 0-5 Negative, 0-5 /hpf Final URINE RBC'S 21-50 (A) Negative, 0-2 /hpf Final EPITHELIAL CELLS Small amount /lpf Final BACTERIA, URINE Moderate (A) Negative /hpf Final CBC: Lab Results Component Value Date WBC 6.57 05/28/2022 RBC 4.81 05/28/2022 HEMOGLOBIN 14.9 05/28/2022 HEMATOCRIT 48.4 (H) 05/28/2022 PLATELETCNT 304 05/28/2022 CMP: Lab Results Component Value Date SODIUM 129 (L) 05/28/2022 POTASSIUM 4.7 05/28/2022 CHLORIDE 89 (L) 05/28/2022 CO2VEN 35 (H) 05/28/2022 ANIONGAP 9.7 05/28/2022 GLUCOSE 135 (H) 05/28/2022 BUN 12 05/28/2022 CREATININE 0.44 (L) 05/28/2022 BCRATIO8 27 (H) 05/28/2022 TOTALPROTEIN 6.5 05/28/2022 ALBUMIN 3.9 05/28/2022 CALCIUM 8.9 05/28/2022 TBIL <0.3 05/28/2022 SGPTALT 19 05/28/2022 ALKALINEPHO 79 05/28/2022 GFRNA >60 05/28/2022 GFRA >60 05/28/2022 Coagulation: Lab Results Component Value Date PTP 12.3 05/28/2022 INR 0.9 05/28/2022 PTT 28 12/26/2019 Cardiac markers: Lab Results Component Value Date TROPONINI <0.300 05/28/2022 ABGs: Lab Results Component Value Date PHARTERIAL 7.32 (L) 05/28/2022 [id number] 51 (H) 05/28/2022 PO2ART 76 05/28/2022 O2ART 92 (L) 05/28/2022 Mg: No results found for: MAGNESIUM BNP: Lab Results Component Value Date NTPROBNP 1,386.0 (H) 05/28/2022 Thyroid: No results found for: TSH, T4FREE Anti-Epileptics: No results found for: DILANTIN, ADJUSTEDDILA, PHENOBARBITA, VALP2, VALPROICACTT, CARBAM, LAMI1, ETHO1, FEL1, GABAPENTIN, LEVET1, PRPH1, TOPAR1, ZONI1, CLONS1, OXCAM1 Rheumatology: Lab Results Component Value Date ESR 19 05/28/2022 Calcium-Ionized: No results found for: CALCIUMIONIZ Outside reports reviewed: ER records, radiology reports, lab reports, xray reports, historical medical records. Previous studies include: Echo Summary/Findings: ASSESSMENT: Active Hospital Problems Diagnosis Date Noted ??? Acute respiratory failure with hypoxia (HCC) 05/29/2022 ??? COPD with acute exacerbation (HCC) 05/29/2022 ??? Hyponatremia 05/29/2022 ??? Essential tremor 05/29/2022 ??? Gastroesophageal reflux disease without esophagitis 05/29/2022 ??? Hyperlipidemia 05/29/2022 ??? Anxiety and depression 05/29/2022 ??? COVID-19 05/28/2022 Resolved Hospital Problems No resolved problems to display. PLAN: Acute hypoxic respiratory failure -SpO2 80% on RA at urgent care. Requiring 4-5 L oxygen. -Not on home O2. -CTA chest revealed no acute aortic abnormality, no PE, but there was evidence nico bronchial inflammatory changes with peripheral mucous plugging, and adjacent interstitial ground-glass hazy airspace opacities suggestive of bronchitis and pneumonitis. -ABG 7.32/51/76/26.8. -Decadron IV. -Albuterol/Combivent inhalers. -Titrate O2 to keep O2 sats >90%. -Continuous pulse oximetry. COVID-19 -Tested positive on 05/28/22. -CTA chest as above -Decadron. -Remdesivir. -Albuterol by inhaler. -Contact/airborne isolation. -Supportive care with PRN O2, titrate to maintain sats >90%. COPD with acute exacerbation -Wheezing noted on PE. -Albuterol inhlaler. -O2 PRN, titrate to keep O2 sats >90%. -Decadron IV. -Continue home Symbicort. Hyponatremia/hypochloremia -Na 129, Cl 89. -IVF. -Monitor CMP. Essential tremors- continue home medications. GERD- continue PPI. Hyperlipidemia- continue statin. Anxiety and depression- continue Celexa and Klonopin. Home meds to be resumed as appropriate. Other changes to meds to be made based on progress during hospitalization. Code Status: CPR-Full Treatment DVT Prophylaxis: Lovenox 40mg Q24h Consult with: None Advance Care Planning: Aggregate face to face time discussing end of life advance care planning with patient and/or family and/or Power of Governor Assembler approximately 16 minutes. Discussed CPR/Intubation/Treatment Goals/Quality of life/Intensity of Care. Patient desires: CPR-Full Treatment Total critical care/time spent: 45 miuntes Edwige Mathews NOEMY Reyez, GUILLERMO 05/29/2022 4:55 AM CDT Primary Care Physician: LYLA PERRY MD Cosigned by Wayne Gomez MD at 05/29/2022 9:28 AM CDT Associated attestation - Wayne Gomez MD - 05/29/2022 9:28 AM CDT I saw and examined the patient with the SUPERVISOR INSTANT POTATO PROCESSING/PA on 05/28/2022. I personally performed the exam and medical decision making. I agree with the SUPERVISOR INSTANT POTATO PROCESSING/PA???s chief complaint, history, exam, and medical decision documented in this encounter Consult Notes * Jaron Woodard MD - 05/31/2022 1:04 PM CDT Images from the original note were not included. TRANSFORMER INSPECTOR CONSULT Janeth Parker was admitted with the chief complaint of shortness of breath. I was asked to see the patient and provide recommendations for management of acute hypercarbic and hypoxemic respiratoryfailure associated with COPD exacerbation and COVID-19 related pneumonia. HPI This patient has a history of COPD, she continues to smoke. A few days ago she started to develop shortness of breath. Her the positive for COVID a few days before that. Upon arrival to the ER she was found to be hypoxic and have repeat testing for COVID was positive. She was admitted for further treatment. Last night her oxygen requirements increased and today she was noticed to be somnolent. ABG at that time showed pH 7.24 with a pCO2 of 115 a PO2 of 78. Patient was placed on BiPAP and transferred to the ICU for further therapy. Patient has been receiving remdesivir as well as steroids and updrafts. When I saw her she was more arousable and trying to carry a conversation. Her BiPAP was set at 17 over 70 and 30% FiO2. Repeat ABG is pending. HOME MEDICATIONS: Prior to Admission Medications Prescriptions Last Dose Informant Patient Reported? Taking? Calcium Citrate-Vitamin D 250-200 MG-UNIT Tablet 05/28/2022 at 0900 Yes Yes Sig: Take by mouth. Multiple Vitamin (MULTIVITAMIN PO) 05/28/2022 at 0900 Yes Yes Sig: Take by mouth. Meredith-3 Fatty Acids (FISH OIL PO) 05/28/2022 at 0900 Yes Yes Sig: Take by mouth. citalopram (CELEXA) 20 MG Tablet 05/28/2022 at 0900 Yes Yes Sig: Take by mouth. clonazePAM (KlonoPIN) 1 MG Tablet 05/27/2022 at 2100 Yes Yes Sig: Take 1 mg by mouth nightly. esomeprazole (NEXIUM) 20 MG CAPSULE DELAYED RELEASE 05/28/2022 at 0900 Yes Yes Sig: Take by mouth. fluticasone-vilanterol (BREO ELLIPTA) 100-25 MCG/INH AEROSOL POWDER, BREATH ACTIVATED 05/28/2022 at 0800 Yes Yes Sig: take 1 Puff by inhalation daily. pramipexole (MIRAPEX) 1.5 MG Tablet Unknown at Unknown time Yes No Sig: Take 1.5 mg by mouth 2 times daily. primidone (MYSOLINE) 250 MG Tablet 05/28/2022 at 0900 No Yes Sig: Take 1 tablet by mouth once daily propranolol (INDERAL LA) 60 MG CAPSULE SR 24 HR 05/28/2022 at 0900 No Yes Sig: Take 1 Capsule by mouth 2 times daily. rosuvastatin (CRESTOR) 10 MG Tablet 05/28/2022 at 0900 Yes Yes Facility-Administered Medications: None ALLERGIES: Allergies Description Type Start Date End Date Comment Verified Inspector And Mender Ibuprofen Unknown 01-Feb-2018 Severity: Medium Reactions: Rash Selam Spicer I, CHIEF FINANCIAL OFFICER REVIEW OF SYSTEMS: Limited since the patient is somnolent and on BiPAP. She complains of difficulty open her eyes and dryness in her mouth. She also complains of shortness of breath PAST MEDICAL HISTORY She has a past medical history of COPD (chronic obstructive pulmonary disease) (HCC), GERD (gastroesophageal reflux disease), Hyperlipidemia, Post-menopausal bleeding, and Tremors of nervous system. PAST SURGICAL HISTORY: has a past surgical history that includes Toe Surgery; oral surgery procedure; dilation and curettage; and Hysterectomy. FAMILY HISTORY: family history includes Diabetes in her maternal grandmother; Leukemia/Lymphoma in her brother; Parkinsonism in her father; Skin Cancer in her mother. SOCIAL HISTORY : reports that she has been smoking cigarettes. She started smoking about 44 years ago. She has been smoking about 0.25 packs per day. She has never used smokeless tobacco. She reports that she does not drink alcohol and does not use drugs. PHYSICAL EXAM : Somnolent but arousable and following simple commands Blood pressure was 111/76 heart rate was 89 respiratory rate was 24 oxygen saturation was 92% on 25% FiO2. Temperature was 98.1?? HEENT pupils are reactive Oral mucosa difficult to visualize since patient is BiPAP Neck no jugular distention Lungs diminished breath sounds with minimal rales no definite wheezing Cardiovascular was regular non tachycardic Abdomen was soft not distended non tympanitic Extremities shows no significant erythema or edema Neurologically she is confused but arousable and following commands. Nonfocal Skin shows no rash Musculoskeletal no evidence of joint inflammation VITALS: Patient Vitals for the past 12 hrs: BP Temp Heart Rate (Monitor) Resp SpO2 05/31/22 1145 -- -- 73 20 93 % 05/31/22 1120 -- -- -- -- 95 % 05/31/22 1059 -- -- 65 -- -- 05/31/22 0852 90/50 98.1 ??F (36.7 ??C) 65 20 99 % 05/31/22 0800 -- -- 81 16 100 % 05/31/22 0703 -- -- 77 -- -- 05/31/22 0311 -- -- 72 -- -- Temp (24hrs), Av ??F (36.7 ??C), Min:97.6 ??F (36.4 ??C), Max:98.2 ??F (36.8 ??C) Weight: Wt Readings from Last 1 Encounters: 05/28/22 140 lb (63.5 kg) DATA REVIEW : Chest X-Ray (my review): Bilateral basal infiltrates CBC: Lab Results Component Value Date WBC 5.65 05/31/2022 HEMOGLOBIN 14.4 05/31/2022 HEMATOCRIT 48.4 (H) 05/31/2022 PLATELETCNT 302 05/31/2022 CMP: Lab Results Component Value Date GLUCOSE 127 (H) 05/31/2022 SODIUM 135 (L) 05/31/2022 POTASSIUM 4.5 05/31/2022 CHLORIDE 91 (L) 05/31/2022 CO2VEN 44 (HH) 05/31/2022 BUN 8 05/31/2022 CREATININE 0.41 (L) 05/31/2022 CALCIUM 8.9 05/31/2022 SGPTALT 16 05/31/2022 ALBUMIN 3.4 (L) 05/31/2022 ALKALINEPHO 69 05/31/2022 Lab Results Component Value Date TROPONINI <0.300 05/29/2022 Assessment/PLAN: 1. Neurologically: This patient developed acute encephalopathy associated with CO2 retention. Currently more interactive and nonfocal 2. Cardiovascular: No documented history of heart disease 3. Respiratory: Acute on chronic hypercarbic respiratory failure associated with oxygen supplementation in the setting of COPD and COVID-19 related pneumonia. We have decrease FiO2 down to 25% on theBiPAP and her saturation is 89%. Repeat ABG will be checked and will attempt to give her breaks from BiPAP if tolerated. 4. GI: P.o. intake will be limited until her respiratory status improves 5. and renal: Her BUN and creatinine have been overall stable 6. Endocrine: Blood sugars are overall in the 120 range. She is receiving Decadron twice a day for her COVID related pneumonia 7. Hematologically her CBC is overall stable 8. DVT prophylaxis: Currently on Lovenox. Will check a D-dimer and reassess 9. Id: She is finishing remdesivir. At this point there is no definite indication for antibacterialtreatment in the setting of normal white blood cell count and no fever. Per infiltrates overall aregeneralized and non confluent consistent with COVID Spent total of 40 minutes critical care time Pain assessment: Ongoing Advance directives reviewed and on file. Voice recognition software was used to dictate this note. In spite of proof reading, typographical and/or content errors might have occurred. Thank you for this consult. More recommendations will be made as appropriate based on progress during hospitalization. Jaron Hernandez MD 21:04 PM CDT documented in this encounter ED Notes * Vivien Tejada RN - 05/28/2022 2:14 PM CDT Patient is being transferred to the floor this time. All patient belongings transferred with the patient at this time. No distress noted , alert and orientated x4. * Vivien Tejada RN - 05/28/2022 1:45 PM CDT Pharmacy delivered patients medication (Remdesivir) to the floor * Vivien Tejada RN - 05/28/2022 12:00 PM CDT Patient returned from radiology at this time * Vivien Tejada RN - 05/28/2022 10:45 AM CDT Patient placed on 15L non rebreathe at this time * Danny Morales MD - 05/28/2022 10:41 AM CDTAssociated Order(s): Critical Care; EKG 12 LEAD Chief Complaint Patient presents with ??? Shortness of Breath 72-year-old female history of COPD presenting to the emergency department after [facility] for shortness of breath malaise and fever. She was found there to have oxygen saturations in the 70s to 80s and recommended to come to the emergency department for evaluation management, she declined ambulance transport. She does not normally wear oxygen at home. Her has a documented positive COVID infection, she had a rapid test done at the urgent care which was negative. She has had some abdominal discomfort but no right nausea vomiting or diarrhea. She has generally had significant shortness of breath and wheezing, has not had significant sputum production. Per report chest x-ray at the urgent care was negative for acute findings. She uses a Breo inhaler but has not had rescue inhaler usage. Her history is slightly limited by the fact that she speaks in severely shortenedsentences and single words. Current Facility-Administered Medications Medication Dose Route Frequency Provider Last Rate Last Admin ??? dexamethasone (DECADRON) injection 6 mg 6 mg Intravenous Once Danny Morales MD ??? [START ON 05/29/2022] Remdesivir 100 mg in 0.9 % sodium chloride 270 mL Total Volume IVPB 100 mgIntravenous Q24H Danny Morales MD Allergies Allergen Reactions ??? Ibuprofen Rash Past Medical History Positives Diagnosis Date ??? COPD (chronic obstructive pulmonary disease) (HCC) ??? Hyperlipidemia ??? Post-menopausal bleeding Past Surgical History: Procedure Laterality Date ??? DILATION AND CURETTAGE ??? HYSTERECTOMY ??? ORAL SURGERY PROCEDURE bone removal ??? TOE SURGERY bunion Social History Socioeconomic History ??? Marital status: Spouse name: Not on file ??? Number of children: Not on file ??? Years of education: Not on file ??? Highest education level: Not on file Occupational History ??? Not on file Tobacco Use ??? Smoking status: Current Every Day Smoker Packs/day: 0.25 Types: Cigarettes Start date: 11/19/1977 ??? Smokeless tobacco: Never Used Vaping Use ??? Vaping Use: Former Substance and Sexual Activity ??? Alcohol use: No ??? Drug use: No ??? Sexual activity: Yes Other Topics Concern ??? Not on file Social History Narrative ??? Not on file BP 113/67 Pulse 67 Temp 96.5 ??F (35.8 ??C) (Tympanic) Resp 24 Ht 5' 6 (1.676 m) Wt 140 lb (63.5 kg) SpO2 94% BMI 22.60 kg/m?? Review of Systems Constitutional: Positive for fatigue and fever. Negative for activity change and chills. Respiratory: Positive for shortness of breath and wheezing. Negative for stridor. Gastrointestinal: Positive for abdominal pain and nausea. Negative for diarrhea. All other systems reviewed and are negative. Physical Exam Vitals and nursing note reviewed. Constitutional: General: She is in acute distress. Appearance: She is ill-appearing. HENT: Head: Normocephalic and atraumatic. Mouth/Throat: Mouth: Mucous membranes are moist. Eyes: Extraocular Movements: Extraocular movements intact. Conjunctiva/sclera: Conjunctivae normal. Cardiovascular: Rate and Rhythm: Normal rate and regular rhythm. Pulmonary: Effort: Tachypnea, accessory muscle usage and respiratory distress present. Breath sounds: Decreased breath sounds and wheezing present. Abdominal: General: Abdomen is flat. Palpations: Abdomen is soft. Musculoskeletal: General: Normal range of motion. Cervical back: Normal range of motion. Skin: General: Skin is warm and dry. Capillary Refill: Capillary refill takes less than 2 seconds. Neurological: General: No focal deficit present. Mental Status: She is alert and oriented to person, place, and time. Psychiatric: Behavior: Behavior normal. EKG 12 LEAD Performed by: Danny Morales MD Authorized by: Danny Morales MD Previous ECG: Previous ECG: Unavailable Interpretation: Interpretation: abnormal Rate: ECG rate: 72 ECG rate assessment: normal Rhythm: Rhythm: sinus rhythm Ectopy: Ectopy: none QRS: QRS axis: Normal QRS intervals: Normal QRS conduction: non-specific conduction delay ST segments: ST segments: Normal T waves: T waves: normal Other findings: Other findings: LAE Critical Care Performed by: Danny Morales MD Authorized by: Danny Morales MD Critical care provider statement: Critical care time (minutes): 40 Critical care was necessary to treat or prevent imminent or life-threatening deterioration of the following conditions: Respiratory failure Critical care was time spent personally by me on the following activities: Development of treatmentplan with patient or surrogate, discussions with consultants, evaluation of patient's response to treatment, examination of patient, review of old charts, re-evaluation of patient's condition, pulse o ximetry, ordering and review of radiographic studies, ordering and review of laboratory studies, ordering and performing treatments and interventions and obtaining history from patient or surrogate Imaging Results CT ANGIO CHEST W/WO CONTRAST WITH PP (POST PROCESSING) (Final result) Result time 05/28/22 12:27:55 Final result by Bhupendra Coleman MD (05/28/22 12:27:55) Impression: IMPRESSION: No acute aortic abnormality. No pulmonary embolus. Peribronchial inflammatory changes with peripheral mucous plugging, adjacent interstitial ground-glass hazy airspace opacities suggesting bronchitis and pneumonitis. Nodular densities right middle lobe and right lower lobe likely postinflammatory as well. Follow-up as symptoms resolved with CT to ensure resolution suggested. Bilateral adrenal thickening is nonspecific. Please correlate clinically and with laboratory results. Correlate with any prior imaging if available. Consider CT or MR with adrenal protocol to further evaluate if clinically indicated. Narrative: EXAM DESCRIPTION: CT ANGIO CHEST W/WO CONTRAST WITH PP (POST PROCESSING) REASON FOR STUDY: Shortness of breath chest congestion and fever with fatigue for 3 days. TECHNIQUE: CTA scan of the chest performed with intravenous contrast using helical scanning technique with dynamic intravenous contrast injection. Arterial phase images of the chest were acquired. Reconstructed coronal and sagittal MPR images reviewed. 3D MIP images rendered on scanning unit and reviewed at time of interpretation. All images stored on PACS. Automated exposure control was used as a dose optimization technique for this examination. CONTRAST TYPE/DOSE: 100 mL Isovue 370 injected via right wrist IV COMPARISON: Chest radiograph same day FINDINGS: VASCULATURE: No evidence of pulmonary embolus. Thoracic aorta appears unremarkable. LUNGS: Central airways are patent. Peripheral airways demonstrate wall thickening and peripheral mucous plugging most pronounced left lower lobe suggesting underlying peribronchial inflammation. Peripheral interstitial densities and hazy ground-glass opacities most notable at the bases posteriorly bilaterally likely related to developing pneumonitis. No dense consolidations. Subtle nodularity right middle lobe axial image 86 of series 4 measures 0.6 cm,, right lower lobe along pleural surface axial image 100 measures 0.8 cm likely related to the same inflammatory etiology. Continue follow-up as symptoms clear to ensure resolution suggested. PLEURA: No effusion. No pneumothorax. MEDIASTINUM/WARREN: 2.0 cm hypodensity right lobe of thyroid. Correlation with ultrasound suggested per consensus guidelines. No marked adenopathy. Soft tissue thickening bilateral hilar regions and subcarinal space suggest inflammatory changes. HEART: Heart size mildly enlarged. No pericardial effusion. Mild coronary arterial calcifications. AXILLA: Bilateral mildly prominent axillary lymph nodes likely reactive in nature. The largest is demonstrated on the left axial image 50 of series 3 with a transverse dimension of 0.9 cm. CHEST WALL: No masses. No subcutaneous air. HARDWARE/LINES/TUBES: None. UPPER ABDOMEN: Bilateral nonspecific adrenal gland thickening. Correlation with any prior studies and laboratory values suggested to evaluate for change. Consider CT or MR with adrenal protocol to further characterize if clinically indicated. MUSCULOSKELETAL: No significant abnormality. OTHER: No other significant abnormality. THIS IS AN ELECTRONICALLY VERIFIED FINAL REPORT 05/28/2022 12:24 PM - Electronically signed by Bhupendra Coleman M.D. RB: PAULA Report ID: [id number] Reading Location: [place] [address] Labs Reviewed SARS-COV-2 BY MOLECULAR - Abnormal; Notable for the following components: Result Value SARSCOV2 DETECTED (*) All other components within normal limits Narrative: This test has been authorized by the FDA under an Emergency Use Authorization (EUA) only. Negative results should be treated as presumptive and, if inconsistent with clinical signs and symptoms or necessary for patient management, the patient should be tested with an alternative molecularassay. Negative results do not preclude SARS-CoV-2 infection or any other respiratory pathogen. Additional information for Clinicians can be found at: https://www.fda.gov/media/306031/download Additional information for Patients can be found at: https://www.fda.gov/media/017897/download BLOOD GASES, ARTERIAL W/ O2 SATURATION - Abnormal; Notable for the following components: PH ARTERIAL 7.32 (*) PC02 (ARTERIAL) 51 (*) O2 SAT ART, MEASURED 92 (*) BICARBONATE 26.8 (*) All other components within normal limits CMP (COMPREHENSIVE METABOLIC PANEL) - Abnormal; Notable for the following components: SODIUM 129 (*) CHLORIDE 89 (*) CO2, VENOUS 35 (*) GLUCOSE 135 (*) CREATININE, BLOOD 0.44 (*) BUN/CREATININE RATIO 27 (*) All other components within normal limits N-TERMINAL- PRO B TYPE NATRIURETIC PEPTIDE - Abnormal; Notable for the following components: NT PROBNP 1,386.0 (*) All other components within normal limits CBC WITH AUTO DIFFERENTIAL - Abnormal; Notable for the following components: HEMATOCRIT (HCT) 48.4 (*) MCV 100.6 (*) MCHC 30.8 (*) MPV 8.5 (*) All other components within normal limits ERYTHROCYTE SEDIMENTATION RATE (ESR) - Normal TROPONIN I (TRP I) - Normal LACTIC ACID (LACTATE) - Normal PROTIME (PT) (PROTHROMBIN TIME) - Normal COMPLETE BLOOD COUNT (CBC) WITH DIFF Narrative: The following orders were created for panel order Complete Blood Count (CBC) WITH Diff. Procedure Abnormality Status --------- ------ CBC with Auto Differential[[id number]] Abnormal Final result Please view results for these tests on the individual orders. PROTIME (PT) (PROTHROMBIN TIME) CMP (COMPREHENSIVE METABOLIC PANEL) MDM Number of Diagnoses or Management Options Amount and/or Complexity of Data Reviewed Clinical lab tests: ordered and reviewed Tests in the radiology section of CPT??: ordered and reviewed Obtain history from someone other than the patient: yes Review and summarize past medical records: yes Independent visualization of images, tracings, or specimens: yes Critical Care Total time providing critical care: 30-74 minutes Reviewed: previous chart, nursing note and vitals Reviewed previous: x-ray Interpretation: labs, ECG and CT scan Total time providing critical care: 30-74 minutes. This excludes time spent performing separately reportable procedures and services. Consults: admitting MD 1:13 PM CDT Discussed case with Dr. Gomez admitting for the hospitalist service, oxygen dependent patient with COVID-19 receiving remdesivir, supplemental oxygen, and Decadron. Clinical Impression 1. COVID-19 2. Hypoxia * Vivien Tejada RN - 05/28/2022 10:39 AM CDT Patient presents to ED with complaints of shortness of breath. Patient was at urgent care this morning and was satting in the 80% at there location. Patient was placed on 6L of oxgyen. EKG was performed at this time(1041). IV was started at this time and labs were drawn. did test positive for COVID last week. ARNIE Jacquest at bedside for examination. documented in this encounter Miscellaneous Notes * Interdisciplinary - Amanad Bowles RN - 06/04/2022 11:03 AM CDT Discharge papers given to patient and reviewed all instructions with patient and patient's .Both verbalized understanding. Patient is getting dressed. Waiting on home O2 to be delivered then patient will be wheeled out by wheelchair to go home. Being transported home by . * Home Care Referral - Jessi Fontanez MD - 06/04/2022 10:13 AM CDT Images from the original note were not included. Face to Face Encounter Referral to Home Health made for TEX Bo: 1950. This patient has been under my care and I, or a nurse practitioner or physician???s procurement assistant working with me, had a [id number] encounter with her that meets the requirements on (date) 06/04/2022. Primary Reason for Home Health Care (description of the current medical condition): Deconditioning,strength, endurance (This encounter was in whole or in part for the patient???s medical condition and reason for Home Care) Based on my findings, the following services are medically necessary home health services (must have at least one primary service: Nursing, PT, Speech Language Pathology): Primary Services : Nursing and Physical Therapy Additional Services: Occupational Therapy and Physical Therapy To provide the following care / treatments: Home Oxygen Therapy, Rehabilitation Services and Gait Training My clinical findings support the need for the above services because of the following problems: Deconditioned due to hospitalization, requires further skilled services (Describe what the RN, PT, or WATCH ASSEMBLY INSPECTOR and other services will be doing in the home Therapy services must be provided with the expectation that, based on the assessment made by the physician of the patient's restorative potential, the condition of the patient will improve materially in a reasonable and generally predictable period of time.) This patient is considered homebound because: Unsteady gait/frequent falls/poor/balance and Dyspneaat rest (The patient must either: Because of illness or injury, need the aid of supportive devices such as crutches, canes, wheelchairs, and walkers; the use of special transportation; or the assistance of another person in order to leave their place of residence, OR Have a condition such that leaving his or her home is medically contraindicated AND there must exist: A normal inability to leave home; ANDLeaving home must require a considerable and taxing effort.) Allergies: Allergies Description Type Start Date End Date Comment Verified Inspector And Mender Ibuprofen Unknown 01-Feb-2018 Severity: Medium Reactions: Rash Selam Spicer I, CHIEF FINANCIAL OFFICER Immunizations: Immunization History Administered Date(s) Administered ??? Covid-19, Mrna, Lnp-s, Pf, 30 Mcg/0.3 Ml Dose (Yasmo) 12/22/2020, 01/28/2021, 09/16/2021 She has a past medical history of COPD (chronic obstructive pulmonary disease) (HCC), GERD (gastroesophageal reflux disease), Hyperlipidemia, Post-menopausal bleeding, and Tremors of nervous system. She has a past surgical history that includes Toe Surgery; oral surgery procedure; dilation and curettage; and Hysterectomy. Payor: MEDICARE C AETNA / Plan: [employer] MEDICARE HMO / Product Type: *No Product type* / The physician who will be the attending physician for ongoing home care services and who will sign the Plan of Care will be: LYLA PERRY MD Referring Physician Statement: I have personally had a [id number] encounter with Janeth Parkerand am personally completing this referral order. I certify Janeth Parker meets the criteria forcritical access hospital based on my findings and that I am the physician ordering Home Health services. This ismy electronic signature: Jessi Fontanez MD; 06/04/2022, 10:14 AM CDT * Plan of Care - Amanda Bowles RN - 06/04/2022 10:11 AM CDT Problem: Infection Goal: Absence of Infection Signs and Symptoms Outcome: Outcome Achieved Problem: Adult Inpatient Plan of Care Goal: Plan of Care Review Outcome: Outcome Achieved Goal: Absence of Hospital-Acquired Illness or Injury Outcome: Outcome Achieved Goal: Optimal Comfort and Wellbeing Outcome: Outcome Achieved Goal: Readiness for Transition of Care Outcome: Outcome Achieved Problem: COPD Comorbidity Goal: Maintenance of COPD Symptom Control Outcome: Outcome Achieved Problem: Noninvasive Ventilation Acute Goal: Effective Unassisted Ventilation and Oxygenation Outcome: Outcome Achieved Problem: Fall Injury Risk Goal: Absence of Fall and Fall-Related Injury Outcome: Outcome Achieved Problem: Skin Injury Risk Increased Goal: Skin Health and Integrity Outcome: Outcome Achieved * Interdisciplinary - Rose Simms RN - 06/04/2022 9:27 AM CDT Case Management Discharge Readiness Note Janeth's readmission risk level (if calculated) is: 1-Low Patient Class: Inpatient Consecutive Inpatient Midnights 7 Actual day(s) of hospital stay (compare to working DRG): 7 Discharge: Final home discharge arrangements: home with Home Health, with durable medical equipment Durable Medical Equipment arranged: home Oxygen, wheeled walker Mode of transportation at discharge:: Family car Additional Information regarding DC Plan: Patient will discharge home with [facility], oxygen through [facility] and a walker through [facility] Discharge Plan Notification/ Verification 1. Patient's Phone numbers: [phone] (home) 2. Patient's preferred discharge phone number for follow up appointments, etc: (if different from above): N/A 3. Information for bedside nurse to call report and fax PACT Document in Sticky Note?: Not applicable - no external home care agencies or hemodialysis 4. Nursing notified: YES Stella 5. Patient/ Decision Maker and family notified: Janeth IM Letter Documentation, if applicable Medicare Notice Given to Responsible Republican: Yes, in person Date Form Given to Patient/Responsible Republican: 06/04/22 Decision Maker / Caregiver Information Medical Decision Maker Assessment: Patient is medical decision-maker Medical Decision Maker, if patient unable: n/a * Interdisciplinary - Teo Hudson - 06/04/2022 9:05 AM CDT Hadoop Architect - Transition Arrangements Coordinated Note - Transition Specialists do not coordinate all transitions or aspects of transitions- CONFIRM PATIENT READINESS WITH SCALING MACHINE OPERATOR PRIOR TO DISCHARGE Paint Line Supervisor notified: yes, notified Rose at the following time 9:05 via secure chat. Additional Details of Discharge Plan: Home today with [facility] - coordination complete with [facility] (Home Health Agency) Updates for Janeth???s discharge sent to agencies and agency personnel notified: yes, notified intake at the following time 9:05 via in basket message. Home Agency added to/ verified on patient's [facility] Epic Care Team? Agency does not have a Direct Messaging Digital Address Agency is [facility] * Interdisciplinary - Nkechi Franco RN - 06/04/2022 6:35 AM CDT Report given to BORIS Douglas. Patient resting in bed with call light in reach. NC with 3L o2 remains in place. VSS per monitor. No c/o pain or discomfort. Signing off patient care at this time. * Plan of Care - Nkechi Franco RN - 06/04/2022 3:31 AM CDT Problem: Infection Goal: Absence of Infection Signs and Symptoms Outcome: Ongoing (see interventions/notes) Intervention: Prevent or Manage Infection Flowsheets Taken 06/03/20222199 by Nkechi Franco RN Infection Management: aseptic techniques maintained Taken 06/03/2022 033 by Agustín Penn RN Fever Reduction/Comfort Measures: lightweight bedding lightweight clothing Problem: Adult Inpatient Plan of Care Goal: Plan of Care Review Outcome: Ongoing (see interventions/notes) Flowsheets Taken 06/04/2022 0326 by Nkechi Franco RN Outcome Summary: SpO2 has remained >89% this shift. She continues to get 3L via NC. She has beenup with 1 assist to use the bathroom with no c/o pain or SOB. Taken 06/03/20222199 by Nkechi Franco RN Today's Goal: SpO2>88% Taken 06/03/2022 0800 by Amanda Bowles RN Plan of Care Reviewed With: patient Taken 06/01/2022 1506 by Mylene Sesay RN Progress: improving Goal: Absence of Hospital-Acquired Illness or Injury Outcome: Ongoing (see interventions/notes) Intervention: Prevent and Manage VTE (Venous Thromboembolism) Risk Flowsheets (Taken 06/03/20222199) VTE Prevention/Management: anticoagulant therapy maintained Goal: Optimal Comfort and Wellbeing Outcome: Ongoing (see interventions/notes) Intervention: Monitor Pain and Promote Comfort Note: No c/o pain or discomfort this shift. Intervention: Provide Person-Centered Care Flowsheets (Taken 06/03/20222199) Trust Relationship/Rapport: care explained choices provided questions answered reassurance provided respect patient/family decisions provided safe/supportive environment facilitated therapeutic presence provided thoughts/feelings acknowledged Goal: Readiness for Transition of Care Outcome: Ongoing (see interventions/notes) Problem: COPD Comorbidity Goal: Maintenance of COPD Symptom Control Outcome: Ongoing (see interventions/notes) Intervention: Maintain COPD-Symptom Control Flowsheets Taken 06/03/20222199 by Nkechi Franco RN Medication Review/Management: medications reviewed high-risk medications identified Taken 06/03/2022329 by Penn, A'Estella K, RN Supportive Measures: relaxation techniques promoted Problem: Noninvasive Ventilation Acute Goal: Effective Unassisted Ventilation and Oxygenation Outcome: Ongoing (see interventions/notes) Intervention: Monitor and Manage Noninvasive Ventilation Flowsheets (Taken 06/03/20222199) Airway/Ventilation Management: airway patency maintained HOB elevated 30-45 degrees NPPV/CPAP Maintenance: skin breakdown assessed Problem: Fall Injury Risk Goal: Absence of Fall and Fall-Related Injury Outcome: Ongoing (see interventions/notes) Intervention: Identify and Manage Contributors Flowsheets (Taken 06/03/20222199) Medication Review/Management: medications reviewed high-risk medications identified Self-Care Promotion: independence encouraged BADL personal objects within reach Intervention: Promote Injury-Free Environment Flowsheets (Taken 06/03/20222199) Safety Promotion/Fall Prevention: bed alarm environmental modification fall reduction program maintained lighting adjusted for task/safety low bed nonskid shoes/slippers when out of bed room near unit station Problem: Skin Injury Risk Increased Goal: Skin Health and Integrity Outcome: Ongoing (see interventions/notes) Intervention: Optimize Skin Protection Flowsheets Taken 06/03/20222199 by Nkechi Franco RN Pressure Reduction Techniques: independent Pressure Reduction Devices: pressure-redistributing mattress utilized positioning supports utilized Taken 06/02/2022226 by Agustín Penn RN Head of Bed (HOB) Positioning: HOB at 30-45 degrees * Otoniel - Amanda Bowles RN - 06/03/2022 2:03 PM CDT Testing at Rest (awake) on Room Air 1. At rest only (awake) on room air 83 % Test Date 06/03/2022 2. 88% or below will qualify patient for continuous use. If the patient qualifies AT REST (awake) no need to test with activity. Testing during Exercise on room air and with Oxygen Applied 1. At rest (awake) on room air 83 % 2. During exercise on room air 79 % 3. During Exercise with Oxygen applied 93 % @ 3 L Test date for all 3 tests above 06/03/2022 If the patient DOES NOT qualify AT REST and only de-sats with any activity all 3 test above must beperformed and documented on the same date. * Plan of Care - Kari Adams OT - 06/03/2022 11:29 AM CDT Problem: Adult Inpatient Plan of Care Goal: OT- Goal Description: OT Plan of Care Date of Initial Evaluation: 06/03/2022 Patient to be seen by Occupational Therapy 3 to 4 x/week to address impairments and functional limitations. Treatments to include: ADL's, Balance training, Endurance training, Mobility/Transfers, Safety, and Therex Precautions: Full Code, Fall, Monitor Vitals, Contact, and Airborne Goals to be achieved by: 06/17/22 - Patient will perform lower body dressing with Modified Independent using adaptive equipment as needed to be able to complete independently at discharge. - Patient will perform self care transfers chair, toilet, and to/from bathroom with Modified Independent to to be able to perform functional mobility within the home. - Patient will demo G balance for independent grooming. - Patient will participate in therapeutic exercise to increase bilateral upper extremity strength and activity tolerance. - Patient will participate in fine and gross motor activities to improve motor planning skills in bilateral upper extremity for oral hygiene. - Patient will improve AM-PAC score to be greater than or equal to 4 points (predicted level of improvement) to indicate improved overall daily function. Patient stated goal: get back on my feet Outcome: Ongoing (see interventions/notes) OCCUPATIONAL THERAPY INITIAL EVALUATION Recommendations: ??? Recommendations for floor staff include ambulate to the bathroom and requires Stand by assist/CGA with Wheeled walker and 3 L of O2 ??? At discharge from Acute care facility, it appears that patient would benefit from Home health Occupational therapy due to Difficulty With Transfers, Balance Deficits, and Decreased Ability To Perform ADLs ??? DME recommendations include:Wheeled walker. Patient requires use of w/walker to complete ADL safely. Patient unable to complete ADL safely with use of cane or crutch. ??? Activity recommendations communicated with BORIS Douglas. Assessment: ?? Significant occupational therapist findings with this patient include Weakness, Decreased endurance, and Decreased cardiopulmonary endurance that leads to functional limitations including decreased ability to transfer on and off the toilet. ?? This represents a functional decline that requires acute OT intervention. Patient will benefit from occupational therapy to address these deficits during their hospitalization. ?? Strengths of this patient include Family support, Good participation/motivation, and Independentprior to admission. ?? Anticipate patient will progress toward stated goals with therapeutic intervention. ?? Next session plan to continue per POC. Pt. is a 72 y.o. female admitted 05/28/2022 for Acute respiratory failure with hypoxia (HCC). Occupational Therapy was ordered on 06/03/2022 for Eval and Treat. Patient was seen 06/03/2022. Plan of Care reviewed with: patient Past Medical History: has a past medical history of COPD (chronic obstructive pulmonary disease) (HCC), GERD (gastroesophageal reflux disease), Hyperlipidemia, Post-menopausal bleeding, and Tremors of nervous system. Past Surgical History: has a past surgical history that includes Toe Surgery; oral surgery procedure; dilation and curettage; and Hysterectomy. Number of Falls in the Previous Year: 0 All charges entered today are appropriate and separate from each other. OT Eval /Treat Visit and Timing Start Time: 1037 Stop Time: 5 Time Calculation (min): 37 min OT Received On: 06/03/22 Type of visit: Evaluation, Treatment Treatment Type: Therapeutic Activities OT Evaluation (Moderate) Time Entry: 15 Therapeutic Activity Time Entry: OT Eval /Treat General Information Patient Profile Reviewed: yes Pertinent History of Current Functional Problem: Acute respiratory with hypoxia R: Number Pain Rating: Rest*: 0 R: Number Pain Rating: Activity*: 0 Existing Precautions/Restrictions: fall (full code, safety, monitor O2, COVID+) Safety Interventions Safety Promotion/Fall Prevention: fall reduction program maintained, nonskid shoes/slippers when out of bed, lighting adjusted for task/safety All Alarms: alarm(s) activated and audible Living Environment People in Home: spouse, grandchild(conner) Name(s) of People in Home: 22 year old granddaughter lives in basement Current Living Arrangements: home/apartment/condo Home Accessibility: stairs to enter home Living Arrangement Comments: Patient completes homemaking chores and yardwork. Home Main Entrance Number of Stairs, Main Entrance: one Stair Railings, Main Entrance: none Disability/Function Hearing Difficulty or Deaf: no Wear Glasses or Blind: yes Vision Management: wears glasses Walking or Climbing Stairs Difficulty: none Dressing/Bathing Difficulty: no Doing Errands Independently Difficulty (such as shopping): no (Patient drives) Equipment Currently Used at Home: grab bar, toilet, raised toilet seat Cognition Affect/Mental Status (Cognition): WFL Orientation Status (Cognition): oriented x 4 Follows Commands (Cognition): follows two-step commands ROM ROM Upper Right Extremity: no ROM deficits were identified ROM Upper Left Extremity: no ROM deficits were identified Strength Comprehensive (MMT) General Manual Muscle Testing (MMT) Assessment: no strength deficits identified Bed Mobility Bed Mobility: supine-sit Supine-Sit [place] (Bed Mobility): standby assist Assistive Device (Bed Mobility): bed rails Comment (Bed Mobility): SBA to monitor balance and O2. Sit/Stand Transfer Level of Assistance (Sit-Stand Transfers): set up, verbal cues, contact guard Level of Assistance (STAND/SIT): set up, verbal cues, contact guard Assistive Device (Transfers): walker, front-wheeled, gait belt Comment: Patient required min assist without walker and CGA /SBA with w/walker. Toilet Transfer Type (Toilet Transfer): sit-stand, stand-sit Level of Assistance (Toilet Transfers): set up, standby assist, verbal cues Assistive Device (Toilet Transfer): walker, front-wheeled, gait belt, grab bar, toilet Toilet Transfer Comment: Verbal cues to utilize grab bar. Gait Mobility [place] Level (Gait): set up, verbal cues, standby assist, minimum assist (75% patient effort) Assistive Device (Gait): walker, front-wheeled Distance in Feet (Gait): 15 ft x 2, 20 ft x 2 Comment: Patient was very unsteady initially,however was able to perform room mobility with w/walker with SBA. Min assist required to prevent LOB without walker. Balance Balance Assessment: sitting static balance, sitting dynamic balance, sit to stand dynamic balance, standing static balance, standing dynamic balance Static Sitting Balance: WFL Dynamic Sitting Balance: WFL Sit to Stand Dynamic Balance: mild impairment, supported Static Standing Balance: mild impairment, supported Dynamic Standing Balance: mild impairment, supported BADL Assessment/Intervention: grooming, toileting Grooming Assessment/Training [place] Level (Grooming): wash face, hands, stand by assist, verbal cues Position (Grooming): sink side Comment (Grooming): Verbal cues for walker placement for sink side ADL. Toileting Assessment/Training [place] Level (Toileting): modified independence, perform perineal hygiene Position (Toileting): supported sitting General Interventions Planned Therapy Interventions (OT Eval): (see POC) Functional Outcome Measure Used: [place] AM-PAC 6 Clicks Daily Activity How much help from another person does the patient currently need ??? 1.Putting on and taking off lower body clothing? 3 A Little 2. Bathing (including washing, rinsing, drying?) 3 A Little 3. Toileting, which includes using toilet, bedpan or urinal? 3 A Little 4. Putting on and taking off regular upper body clothing? 3 A Little 5. Taking care of personal grooming such as brushing teeth? 3 A Little 6. Eating meals? 4 None Raw Score 19 18 or Less= predictive of discharge to institutional setting 19-24 predictive of discharge to home actual discharge disposition may be impacted by other factors [facility]. Association of A-PAC ???6 Clicks?? Basic Mobility and Daily Activity Scores with Discharge Destination. PTJ. December 2020 Patient was left up in chair with indicated alarms after therapy with call light and phone near. KARI ADAMS, OT Cosigned by Jessi Fontanez MD at 06/04/2022 6:28 PM CDT Associated attestation - Jessi Fontanez MD - 06/04/2022 6:28 PM CDT . * Interdisciplinary - Agustín Penn RN - 06/03/2022 6:31 AM CDT Patient report given to BORIS Patel. Patient resting in bed. Patient A&Ox4. Vital Signs per flowsheet. Call light within reach. Bed alarm on. Patient updated to plan of care. No acute distress noted. AGUSTÍN PENN RN * Plan of Care - Agustín Penn RN - 06/03/2022 1:33 AM CDT Problem: Infection Goal: Absence of Infection Signs and Symptoms Outcome: Ongoing (see interventions/notes) Intervention: Prevent or Manage Infection Flowsheets (Taken 06/02/20221999) Infection Management: aseptic techniques maintained Fever Reduction/Comfort Measures: lightweight bedding lightweight clothing Problem: Adult Inpatient Plan of Care Goal: Plan of Care Review Outcome: Ongoing (see interventions/notes) Flowsheets Taken 06/03/2022 0118 by Agustín Penn RN Outcome Summary: Patient maintains SpO2 has dipped to lower 80-and upper 70's with movement. Patient has ranged from 88-91% on 3L NC. Patient denies having pain. Patient is resting in bed. Paitent upwith assistance to bathroom. Taken 06/02/20221999 by Agustín Penn RN Today's Goal: SpO2 >89% Taken 06/02/2022 1601 by Amanda Bowles RN Plan of Care Reviewed With: patient spouse Taken 06/01/2022 1506 by Mylene Sesay, RN Progress: improving Does the patient need assistance with discharge and/or transitioning to the next level of care?: Yes, case management already following Taken 05/29/2022 0556 by Alexis Mi, RN Patient-Specific Preferences: Door closed Goal: Absence of Hospital-Acquired Illness or Injury Outcome: Ongoing (see interventions/notes) Goal: Optimal Comfort and Wellbeing Outcome: Ongoing (see interventions/notes) Goal: Readiness for Transition of Care Outcome: Ongoing (see interventions/notes) Problem: COPD Comorbidity Goal: Maintenance of COPD Symptom Control Outcome: Ongoing (see interventions/notes) Problem: Noninvasive Ventilation Acute Goal: Effective Unassisted Ventilation and Oxygenation Outcome: Ongoing (see interventions/notes) Problem: Fall Injury Risk Goal: Absence of Fall and Fall-Related Injury Outcome: Ongoing (see interventions/notes) Problem: Skin Injury Risk Increased Goal: Skin Health and Integrity Outcome: Ongoing (see interventions/notes) * Otoniel - Agustín Penn RN - 06/02/2022 7:00 PM CDT Report received from BORIS Patel. Assumed patient care at this time. Patient A&Ox4. Vital signsper flowsheet. Patient is on 3L sating at 87%. Patient is NSR on athletic monitor. Call light in reach, alarms on. No acute distress noted. Patient updated to plan of care. AGUSTÍN PENN RN * Jimena Wilson - 06/02/2022 11:53 AM CDT Case Management Patient / Patient Photo Studio Assistant Contact Note Janeth's readmission risk level (if calculated) is: 1-Low Patient Class: Inpatient Consecutive Inpatient Midnights 5 Actual day(s) of hospital stay (compare to working DRG):5 New Consult for Case Management? No Summary: Patient plan is to discharge home with [facility]. CM monitoring patient for need of oxygen at discharge. PT/OT following. Patient remains on 3 liters NC. Plan of Care:(Problem/ situation/ barrier + goals/ milestones + interventions + evaluation of progress = Plan of Care) Janeth's primary medical problem this hospitalization is Acute respiratory failure with hypoxia (HCC). Hospital Plan:Medical management, labs and supportive services, supplemental oxygen. Anticipated Discharge Plan: Home Health () 05/29/22 Patient/ patient business 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's preferences regarding the discharge plan: [facility] IM Letter Documentation, if applicable Medicare Notice Given to Responsible Republican: Yes, in person Date Form Given to Patient/Responsible Republican: 05/29/22 Decision Maker / Basket Grader Information Medical Decision Maker Assessment: Patient is medical decision-maker Medical Decision Maker, if patient unable: n/a No new referrals for Hadoop Architect at this time. * Interdisciplinary - Agustín Penn RN - 06/02/2022 6:47 AM CDT Patient report given to BORIS Patel. Patient resting in bed. Patient A&Ox4. Vital Signs per flowsheet. SpO2 91% on 1.5L per NC. Patient is sinus rhythm on athletic monitor. Call light within reach. Bed alarm on. Patient updated to plan of care. No acute distress noted. AGUSTÍN PENN RN * Plan of Care - Agustín Penn RN - 06/02/2022 2:31 AM CDT Problem: Infection Goal: Absence of Infection Signs and Symptoms Outcome: Ongoing (see interventions/notes) Intervention: Prevent or Manage Infection Flowsheets (Taken 06/02/2022 0000) Infection Management: aseptic techniques maintained Fever Reduction/Comfort Measures: lightweight bedding lightweight clothing Problem: Adult Inpatient Plan of Care Goal: Plan of Care Review Outcome: Ongoing (see interventions/notes) Flowsheets Taken 06/02/2022 0227 by Agustín Penn RN Outcome Summary: Patient maintains SpO2 between 88-91% on 1.5L per NC. Patient attempted to wear Bipap for two hours. Patient is resting in bed. Fall and isolation precautions are in place. Taken 06/02/2022 0000 by Agustín Penn RN Today's Goal: SpO2 >89% Taken 06/01/2022 1506 by Mylene Sesay RN Progress: improving Plan of Care Reviewed With: patient spouse family Does the patient need assistance with discharge and/or transitioning to the next level of care?: Yes, case management already following Taken 05/29/2022 0556 by Alexis Mi, RN Patient-Specific Preferences: Door closed Goal: Absence of Hospital-Acquired Illness or Injury Outcome: Ongoing (see interventions/notes) Intervention: Prevent and Manage VTE (Venous Thromboembolism) Risk Flowsheets (Taken 06/02/2022 0000) VTE Prevention/Management: ambulation encouraged Goal: Optimal Comfort and Wellbeing Outcome: Ongoing (see interventions/notes) Intervention: Provide Person-Centered Care Flowsheets (Taken 06/02/2022 0000) Trust Relationship/Rapport: care explained questions encouraged questions answered thoughts/feelings acknowledged safe/supportive environment facilitated Goal: Readiness for Transition of Care Outcome: Ongoing (see interventions/notes) Problem: COPD Comorbidity Goal: Maintenance of COPD Symptom Control Outcome: Ongoing (see interventions/notes) Intervention: Maintain COPD-Symptom Control Flowsheets (Taken 06/02/2022 0000) Supportive Measures: relaxation techniques promoted Medication Review/Management: medications reviewed Problem: Noninvasive Ventilation Acute Goal: Effective Unassisted Ventilation and Oxygenation Outcome: Ongoing (see interventions/notes) Intervention: Monitor and Manage Noninvasive Ventilation Flowsheets (Taken 06/02/2022 0000) Airway/Ventilation Management: airway patency maintained HOB elevated 30-45 degrees NPPV/CPAP Maintenance: skin breakdown assessed Problem: Fall Injury Risk Goal: Absence of Fall and Fall-Related Injury Outcome: Ongoing (see interventions/notes) Intervention: Identify and Manage Contributors Flowsheets (Taken 06/02/2022 0000) Medication Review/Management: medications reviewed Self-Care Promotion: independence encouraged Intervention: Promote Injury-Free Environment Flowsheets (Taken 06/02/2022) Safety Promotion/Fall Prevention: chair alarm nonskid shoes/slippers when out of bed low bed lighting adjusted for task/safety fall reduction program maintained room near unit station Problem: Skin Injury Risk Increased Goal: Skin Health and Integrity Outcome: Ongoing (see interventions/notes) Intervention: Optimize Skin Protection Flowsheets Taken 06/02/2022 0227 Head of Bed (HOB) Positioning: HOB at 30-45 degrees Taken 06/02/2022 0000 Pressure Reduction Techniques: independent Pressure Reduction Devices: pressure-redistributing mattress utilized Skin Protection: adhesive use limited tubing/devices free from skin contact transparent dressing maintained Intervention: Promote and Optimize Oral Intake Flowsheets (Taken 06/02/2022 0227) Oral Nutrition Promotion: rest periods promoted * Interdisciplinary - Agustín Penn RN - 06/01/2022 11:54 PM CDT Patient requested Bipap to be taken off. Patient educated patient on the importance of the Bipap. Patient still wanted Bipap off. * Interdisciplinary - Mylene Sesay RN - 06/01/2022 7:30 PM CDT Patient report given to BORIS Daniel. Patient resting in bed. Patient A&Ox4. Vital Signs per flowsheet. Call light within reach. Bed alarm on. Patient sleeping. No acute distress noted. * Otoniel - Agustín Penn RN - 06/01/2022 7:30 PM CDT Report received from BORIS Chakraborty. Assumed patient care at this time. Patient A&Ox4. SpO2 is 91% on 2.5L. Patient is SR on athletic monitor. Vital signs per flowsheet. IV drip rates verified. Call light in reach, alarms on. No acute distress noted. Patient updated to plan of care. AGUSTÍN PENN RN * Plan of Care - Mylene Sesay RN - 06/01/2022 3:07 PM CDT Problem: Adult Inpatient Plan of Care Goal: Plan of Care Review Outcome: Ongoing (see interventions/notes) Flowsheets Taken 06/01/2022 1506 Progress: improving Plan of Care Reviewed With: patient spouse family Outcome Summary: Patient maintains on 2L NC with saturations ranging from 85-91% with no respiratory distress. Does the patient need assistance with discharge and/or transitioning to the next level of care?: Yes, case management already following Taken 06/01/2022 1115 Today's Goal: SpO2 89% Goal: Absence of Hospital-Acquired Illness or Injury Outcome: Ongoing (see interventions/notes) Goal: Optimal Comfort and Wellbeing Outcome: Ongoing (see interventions/notes) Goal: Readiness for Transition of Care Outcome: Ongoing (see interventions/notes) Problem: Infection Goal: Absence of Infection Signs and Symptoms Outcome: Ongoing (see interventions/notes) Problem: COPD Comorbidity Goal: Maintenance of COPD Symptom Control Outcome: Ongoing (see interventions/notes) Problem: Noninvasive Ventilation Acute Goal: Effective Unassisted Ventilation and Oxygenation Outcome: Ongoing (see interventions/notes) Problem: Fall Injury Risk Goal: Absence of Fall and Fall-Related Injury Outcome: Ongoing (see interventions/notes) Problem: Skin Injury Risk Increased Goal: Skin Health and Integrity Outcome: Ongoing (see interventions/notes) * Interdisciplinary - Raimundo Moreland RD - 06/01/2022 1:04 PM CDT ASSESSMENT: Nutrition Assessment triggered by: Claude result 18 with probably inadequate nutrition on risk assessment PROBLEM: Inadequate oral food/beverage intake related to illness as evidenced by report. Principal Problem: Acute respiratory failure with hypoxia (HCC) Past Medical History: Past Medical History Positives Diagnosis Date ??? COPD (chronic obstructive pulmonary disease) (HCC) ??? GERD (gastroesophageal reflux disease) ??? Hyperlipidemia ??? Post-menopausal bleeding ??? Tremors of nervous system Diet: DIET GENERAL Chew/swallow: No reported difficulties Intake Adequacy: 0% charted at this time, reports of no appetite Skin/Wound: Intact, Claude result 18 with probably inadequate nutrition on risk assessment Labs noted: Na+ 134, K+ 4.5, albumin 3.5, GFR >60, glucose 117 Education needs: Not planned at this time Height: Ht Readings from Last 1 Encounters: 05/28/22 5' 6 (1.676 m) Weight: Wt Readings from Last 1 Encounters: 05/28/22 140 lb (63.5 kg) BMi weight range for height: 118-155# BMI: Body mass index is 22.6 kg/m??. Prior EMR weights: 03/07/22 145# 09/06/21 128# NEEDS: Calories: 1900 (30 cals/kg/bw) Protein: 70g(1.1g/kg/bw) Fluid: 1900 ml GOAL:To promote intake adequacy INTERVENTION: Acute on chronic respiratory failure. Covid pneumonia. Reduced oral intake and loss of appetite reported. General diet provided with no restrictions. Will start Boost plus lunch and supper meals. Reassess 06/05/22 By: RAIMUNDO MORELAND RD; 06/01/2022, 1:09 PM CDT * Otoniel - Lázaro Mylene BORIS Bradley - 06/01/2022 7:10 AM CDT Patient is much more alert today, pleasant and humorous. Patient stood and pivoted to commode and chair with one assist. 1.5L NC with sats 88-89% with pulse ox on nose with great pleth. Patient complains of a clogged nose which impedes the oxygen from getting in. Will ask for nasal spray at rounds at 0830. Chair alarm in place, patient watching television with call light, cell phone and tv remotein reach. * Mylene Barahona RN - 06/01/2022 6:30 AM CDT Bedside report received from Nkechi ESCALANTE. Assumed patient care at this time. Patient A&Ox3. Vital signs per flowsheet. Call light in reach, alarms on. No acute distress noted. Patient updated to plan of care. * Mylene Barahona RN - 05/31/2022 7:00 PM CDT Bedside patient report given to BORIS Arboleda. Patient resting in bed. Patient A&Ox2. Vital Signsper flowsheet. Call light within reach. Bed alarm on. * Mylene Barahona RN - 05/31/2022 4:03 PM CDT Still poor pleth on earlobe, nasal probe placed on nasal skin. Much better pleth now. * Mylene Barahona RN - 05/31/2022 1:00 PM CDT Spo2 probe placed on earlobe d/t poor pleth from tremors in hands and feet. * Deya Chi - 05/31/2022 12:06 PM CDT Case Management Patient / Patient Photo Studio Assistant Contact Note Janeth's readmission risk level (if calculated) is: 1-Low Patient Class: Inpatient Consecutive Inpatient Midnights 3 Actual day(s) of hospital stay (compare to working DRG):3 New Consult for Case Management? No Summary: At this time, plan is for patient to return home with and [facility]. Plan of Care:(Problem/ situation/ barrier + goals/ milestones + interventions + evaluation of progress = Plan of Care) Janeth's primary medical problem this hospitalization is Acute respiratory failure with hypoxia (HCC). Hospital Plan: 10L HF O2, IV decadron, IV remdesivir, Anticipated Discharge Plan: Home Health (HH) 05/29/22 Patient/ patient business 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's preferences regarding the discharge plan: [facility] IM Letter Documentation, if applicable Medicare Notice Given to Responsible Republican: Yes, in person Date Form Given to Patient/Responsible Republican: 05/29/22 Decision Maker / Basket Grader Information Medical Decision Maker Assessment: Patient is medical decision-maker Medical Decision Maker, if patient unable: n/a No new referrals for Hadoop Architect at this time. * Interdisciplinary - Alysia Leach RN - 05/31/2022 10:57 AM CDT Report called to TRANSMISSION TECHNICIAN February, patient transported to unit. * Plan of Care - Karla Brown RN - 05/31/2022 1:58 AM CDT Problem: Infection Goal: Absence of Infection Signs and Symptoms 05/31/2022156 by Karla Brown RN Outcome: Ongoing (see interventions/notes) 05/31/2022155 by Karla Brown RN Outcome: Ongoing (see interventions/notes) Intervention: Prevent or Manage Infection Flowsheets Taken 05/30/20222115 Fever Reduction/Comfort Measures: lightweight clothing lightweight bedding Taken 05/30/20221919 Infection Management: aseptic techniques maintained Problem: Adult Inpatient Plan of Care Goal: Plan of Care Review 05/31/2022156 by Karla Brown RN Outcome: Ongoing (see interventions/notes) Flowsheets Taken 05/31/2022156 Progress: progress toward functional goals is gradual Plan of Care Reviewed With: patient Outcome Summary: Pt increased to 14L O2 HFNC. Patient satting mid 90s according to continuous pulseox. Patient stable. No SOB or pain. HOB elevated. Bed alarm active. Does the patient need assistance with discharge and/or transitioning to the next level of care?: No, no needs anticipated Taken 05/30/20221919 Today's Goal: SPO2 > 92% 05/31/2022155 by Karla Brown RN Outcome: Ongoing (see interventions/notes) Goal: Absence of Hospital-Acquired Illness or Injury 05/31/2022156 by Karla Brown RN Outcome: Ongoing (see interventions/notes) 05/31/2022155 by Karla Brown RN Outcome: Ongoing (see interventions/notes) Intervention: Prevent and Manage VTE (Venous Thromboembolism) Risk Flowsheets (Taken 05/30/20221919) VTE Prevention/Management: anticoagulant therapy maintained Goal: Optimal Comfort and Wellbeing 05/31/2022156 by Karla Brown RN Outcome: Ongoing (see interventions/notes) 05/31/2022155 by Karla Brown RN Outcome: Ongoing (see interventions/notes) Intervention: Provide Person-Centered Care Flowsheets (Taken 05/30/20221919) Trust Relationship/Rapport: care explained thoughts/feelings acknowledged safe/supportive environment facilitated nonverbal communication acknowledged Goal: Readiness for Transition of Care 05/31/2022 0157 by Karla Brown RN Outcome: Ongoing (see interventions/notes) 05/31/2022 0156 by Karla Brown RN Outcome: Ongoing (see interventions/notes) Problem: COPD Comorbidity Goal: Maintenance of COPD Symptom Control Outcome: Ongoing (see interventions/notes) Intervention: Maintain COPD-Symptom Control Flowsheets (Taken 05/31/2022 0157) Supportive Measures: verbalization of feelings encouraged relaxation techniques promoted Medication Review/Management: medications reviewed * Plan of Care - Alysia Leach RN - 05/30/2022 7:50 PM CDT Problem: Infection Goal: Absence of Infection Signs and Symptoms Outcome: Ongoing (see interventions/notes) Intervention: Prevent or Manage Infection Flowsheets Taken 05/30/2022 0947 Fever Reduction/Comfort Measures: lightweight bedding lightweight clothing Taken 05/30/2022 0715 Infection Management: aseptic techniques maintained Problem: Adult Inpatient Plan of Care Goal: Plan of Care Review Outcome: Ongoing (see interventions/notes) Flowsheets Taken 05/30/2022 0730 by Alysia Leach RN Today's Goal: Maintain SpO2 94% or above Taken 05/30/2022 0515 by Alexis Mi RN Progress: improving Goal: Absence of Hospital-Acquired Illness or Injury Outcome: Ongoing (see interventions/notes) Intervention: Prevent and Manage VTE (Venous Thromboembolism) Risk Flowsheets (Taken 05/30/2022 0832 by Ifrah Uribe) VTE Prevention/Management: ambulation encouraged Goal: Optimal Comfort and Wellbeing Outcome: Ongoing (see interventions/notes) Intervention: Provide Person-Centered Care Flowsheets (Taken 05/30/2022 0715) Trust Relationship/Rapport: care explained questions encouraged Goal: Readiness for Transition of Care Outcome: Ongoing (see interventions/notes) * Interdisciplinary - Karla Brown RN - 05/30/2022 7:22 PM CDT Patient resting in bed with 4.5L O2 via NC satting WDL no SOB at this time. Patient denies pain. Patient HOB elevated. Patient alert x4. Patient bed alarm active. Continuous pulse ox active. Externalcath placed. Patient tolerating well. Tele intact and active. Bed lowered and locked. Rounding continues. * Interdisciplinary - Alysia Leach RN - 05/30/2022 2:48 PM CDT Spoke with patient about incentive spirometer and pain/meds, patient stated she is wary of taking narcotics. She explained they make her loopy, she doesn't know who or what she's talking to, where she's going, or what she's doing. Explained will inform provider. * Plan of Care - Alexis Mi RN - 05/30/2022 5:22 AM CDT Patient resting in bed. IVF infusing without difficulty. Patient on 5L HFNC satting 93%. No SOB noted. C/o headache pain treated with PRN Tylenol per JAN. Fall precautions in place. Coughing encouraged. Call light belongings within reach. Problem: Infection Goal: Absence of Infection Signs and Symptoms Outcome: Ongoing (see interventions/notes) Intervention: Prevent or Manage Infection Flowsheets (Taken 05/29/20222114) Infection Management: aseptic techniques maintained Fever Reduction/Comfort Measures: lightweight bedding lightweight clothing Problem: Adult Inpatient Plan of Care Goal: Plan of Care Review Outcome: Ongoing (see interventions/notes) Flowsheets Taken 05/30/2022 0515 by Alexis Mi, RN Progress: improving Taken 05/29/20222114 by Alexis Mi, RN Today's Goal: SpO2 > 90 Taken 05/29/2022 0556 by Alexis Mi, RN Patient-Specific Preferences: Door closed Taken 05/28/2022 184 by Mariaelena Patten RN Plan of Care Reviewed With: patient Does the patient need assistance with discharge and/or transitioning to the next level of care?: No, no needs anticipated Goal: Absence of Hospital-Acquired Illness or Injury Outcome: Ongoing (see interventions/notes) Intervention: Prevent and Manage VTE (Venous Thromboembolism) Risk Flowsheets (Taken 05/29/20222114) VTE Prevention/Management: anticoagulant therapy maintained Goal: Optimal Comfort and Wellbeing Outcome: Ongoing (see interventions/notes) Intervention: Provide Person-Centered Care Flowsheets (Taken 05/29/20222114) Trust Relationship/Rapport: care explained choices provided questions answered Goal: Readiness for Transition of Care Outcome: Ongoing (see interventions/notes) * Interdisciplinary - Alexis Mi, RN - 05/29/2022 10:39 PM CDT Patient asleep and easy to arouse. Currently satting 94% on 6L HFNC. No c/o pain or distress noted.IVF infusing without difficulty. Fall precautions in place * Interdisciplinary - Teo Hudson - 05/29/2022 4:34 PM CDT Hadoop Architect Coordination Note SUMMARY - Hadoop Architect currently working the potential transition plan(s): ??? 05/29/2022 @ 4:34 PM CDT (JOSUÉ, PHUONG) Home Health [PHARMACY TECHNICIAN PROGRAM DIRECTOR] (See detail within the referral type(s) below for information on what is needed to complete coordination Note - the Transition Specialists do not coordinate all transition types - please direct all question regarding hospital transition to the Paint Line Supervisor) Readmission risk level (if calculated) is: 1-Low Primary Care Provider: PCP: LYLA PERRY MD Primary Medical Coverage: Aet Medicare Hmo Secondary Medical Coverage: N/A Home Health Referral Status: pending Referral Type: New Provider who will sign on-going Home Health Plan of Care: PCP: LYLA PERRY MD Home Health Services Needed: assisted Needed Information / Documentation to complete Home Health coordination: ??? IP Consult to Home Health ??? Confirmed Discharge Date [facility] - [facility] Contact [facility] ??? 05/29/2022 @ 4:34 PM CDT (JOSUÉ, PHUONG) referral sent to [facility] intake via [place] in basket message * Plan of Care - Ankita Robins, RN - 05/29/2022 4:19 PM CDT Case Management Comprehensive Assessment Janeth's readmission risk level (if calculated) is: 1-Low Patient Class: Inpatient Consecutive Inpatient Midnights 1 Actual day(s) of hospital stay (compare to working DRG): 1 Reason for Paint Line SupervisorNews Assistant: Consult for Discharge planning needs; COVID + Janeth is in the hospital due to: Acute respiratory failure with hypoxia Prior to Admission (Support, Living Environment,ADLs IADLs, Transportation, Employment, Access to Care) Janeth Parker is a 72 y.o. female with a PMHx of COPD. Pt is A&O x 4 with at bedside. She lives with her in a single story home with 1 step to enter. Patient is active and independent in daily living including all ADL's, cooking, cleaning, laundry, and driving. [place]. Pt does not use any home DME and has never had home oxygen. Her PCP is LYLA PERRY MD. She has Medicare C [employer] insurance. Pt denies issues obtaining/affording medication from [facility] in [place]. She does not have a HCPOA and declines information at this time. Janeth is not a 30 day re-hospitalization. Plan of Care (Problem/ situation/ barrier + goals/ milestones + interventions + evaluation of progress = Plan of Care) Hospital Plan: Day 2 of remdesivir, wean 6L oxygen Anticipated Discharge Plan: Home Health (HH) 05/29/22 Patient/ patient business 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's preferences regarding the discharge plan: [facility] SUMMARY (summary of interaction with patient/decision maker, family and interdisciplinary team) Met with Janeth and introduced self and role and discussed plan of care. CM met with pt and at bedside regarding discharge planning and likely need for home oxygen at discharge. If home oxygen is needed they would also like to have [facility]. CM will continue to follow. IM Letter Documentation, if applicable Medicare Notice Given to Responsible Republican: Yes, in person Date Form Given to Patient/Responsible Republican: 05/29/22 Decision Maker / Basket Grader Information Patient is medical decision-maker Medical Decision Maker, if patient unable: n/a New referral(s) for Hadoop Architect Home Health Agency [PHARMACY TECHNICIAN PROGRAM DIRECTOR] Agency Choice(s) ??? [facility] List of Medicare approved HH agencies with quality measures and resource data (with any financial affiliations disclosed and/ or in network providers identified as applicable) provided to patient / family: Yes Provider who will be signing the ongoing Home Health plan of care: LYLA PERRY MD (Note: at least one PRIMARY service of assisted, physical therapy or speech is required to meet medical necessity criteria for PHARMACY TECHNICIAN PROGRAM DIRECTOR) Home Health Services Needed: assisted Anticipated Needs: disease management and education * Plan of Care - Kendal Cantrell RN - 05/29/2022 2:45 PM CDT Problem: Infection Goal: Absence of Infection Signs and Symptoms Intervention: Prevent or Manage Infection Flowsheets Taken 05/29/2022 1437 Fever Reduction/Comfort Measures: lightweight bedding lightweight clothing Taken 05/29/2022 1436 Infection Management: aseptic techniques maintained Problem: Adult Inpatient Plan of Care Goal: Plan of Care Review Flowsheets Taken 05/29/2022 1443 by Kendal Cantrell RN Outcome Summary: Pt on 6L O2, Pt SpO2 89-93% this shift on 6L. Pt recieving IV antiviral medication. Taken 05/29/2022 1441 by Kendal Cantrell RN Today's Goal: SpO2 >/= 90% Taken 05/29/2022 0556 by Alexis Mi RN Progress: progress toward functional goals as expected Patient-Specific Preferences: Door closed Taken 05/28/20221841 by Mariaelena Patten RN Plan of Care Reviewed With: patient Does the patient need assistance with discharge and/or transitioning to the next level of care?: No, no needs anticipated * Plan of Care - Alexis Mi RN - 05/29/2022 5:57 AM CDT Patient rested this shift without complaint. Currently on 4L satting 92%. No c/o pain or distress noted. Fall precautions in place.IVF infusing without difficulty. Problem: Infection Goal: Absence of Infection Signs and Symptoms 05/29/2022 0556 by Alexis Mi, BORIS Outcome: Ongoing (see interventions/notes) 05/29/2022 0555 by Alexis Mi RN Outcome: Ongoing (see interventions/notes) Intervention: Prevent or Manage Infection Flowsheets Taken 05/28/20222254 by Alexis Mi RN Fever Reduction/Comfort Measures: lightweight bedding lightweight clothing Taken 05/28/20221841 by Mariaelena Patten RN Infection Management: aseptic techniques maintained Problem: Adult Inpatient Plan of Care Goal: Plan of Care Review 05/29/2022 0556 by Alexis Mi RN Outcome: Ongoing (see interventions/notes) Flowsheets Taken 05/29/2022 0556 by Alexis Mi RN Progress: progress toward functional goals as expected Patient-Specific Preferences: Door closed Taken 05/28/20222254 by Alexis Mi RN Today's Goal: SpO2 > 92 Taken 05/28/20221841 by Mariaelena Patten RN Plan of Care Reviewed With: patient Does the patient need assistance with discharge and/or transitioning to the next level of care?: No, no needs anticipated 05/29/2022 0555 by Alexis Mi, RN Outcome: Ongoing (see interventions/notes) Goal: Absence of Hospital-Acquired Illness or Injury 05/29/2022 0556 by Alexis Mi, RN Outcome: Ongoing (see interventions/notes) 05/29/2022 0555 by Alexis Mi, RN Outcome: Ongoing (see interventions/notes) Intervention: Prevent and Manage VTE (Venous Thromboembolism) Risk Flowsheets (Taken 05/28/2022 2255) VTE Prevention/Management: ambulation encouraged Goal: Optimal Comfort and Wellbeing 05/29/2022 0556 by Alexis Mi, RN Outcome: Ongoing (see interventions/notes) 05/29/2022 0555 by Alexis Mi, RN Outcome: Ongoing (see interventions/notes) Intervention: Provide Person-Centered Care Flowsheets (Taken 05/28/2022 2255) Trust Relationship/Rapport: care explained choices provided questions encouraged thoughts/feelings acknowledged Goal: Readiness for Transition of Care 05/29/2022 0556 by Alexis Mi, RN Outcome: Ongoing (see interventions/notes) 05/29/2022 0555 by Alexis Mi, RN Outcome: Ongoing (see interventions/notes) * Interdisciplinary - Alexis Mi, RN - 05/29/2022 2:01 AM CDT Patient awake and resting in bed. No c/o pain or distress noted. A&Ox4. Wheezes noted on auscultation. IVF infusing without difficulty. Call light belongings within reach. * Interdisciplinary - Rickey Mon CRT - 05/29/2022 12:30 AM CDT Respiratory Therapy Assessment And Education Points 0 1 2 3 4 Score Pulmonary History No Smoking Smokes <1 ppd Smokes 1 ppd or more Pulmonary impairment (acute or chronic) Severe or Chronic exacerbation 3 Surgical Status None General Surgery Lower Abdominal Surgery Thoracic or Upper Abdominal Surgery Thoracic with Pulmonary Disease 0 CXR (from last 24 hrs) Clear Unavailable Infiltrates, Atelectasis or Pleural effusion Infiltrates in more than 1 lobe Infiltrates plus Atelectasis or Pleural effusion 0 Respirations Regular Pattern, RR 8-20 Increased, RR 21-25 Dyspnea on exertion, irregular pattern, RR 26-30 Use of accessory muscles, prolonged expiration, RR 31-35 Severe SOB with use of accessory muscles, RR >35 0 BS Clear Diminished Unilaterally Diminished Bilaterally Crackles in Bases Wheezing and/or Rhonchi 4 Cough Strong, Non- productive cough Strong, productive cough Weak, Non- productive cough Weak, productive cough No cough, may require suctioning 0 Mental status Alert and oriented Lethargic, follows commands Confused, does not follow commands Obtunded Comatose 0 Level of Activity Ambulatory Ambulatory with assistance Temporarily non-Ambulatory Bed rest, able to position self Bed rest, unable to position self 0 O2 required to keep SpO2 >=92% (or ordered goal) None 1-3 L/M or FiO2 25-35% 4-6 L/M or FiO2 35-50% >50% 100% 1 Total Score 8 Treatment Scoring Guide Frequency Utilize ORDER SET for all changes Severity Level 5 > 20 points Q2 and Q4 Albuterol Q2 and Ipratropium Q4 *Discontinue previous orders* Severity Level 4 16-20 points Q4 and PRN Duoneb Q4 and Albuterol Q2 PRN *Discontinue previous orders* Severity Level 3 11-15 points QID and PRN Duoneb QID and Albuterol Q4 PRN *Discontinue previous orders* Severity Level 2 6-10 points TID and Q6 PRN Albuterol only *Discontinue previous orders* Severity Level 1 0-5 points Q6 PRN Albuterol only *Discontinue previous orders* Home Regimen Home medication orders As per reconciled home medications Patient RTA Severity Level Is: Level 2 Patient Progression Since Admission: New Pt Treatment Plan Adjusted: Yes Education Documented (within Education Tab): Yes Education Provided To: patient Comments: Respiratory Protocols Initiated By: RICKEY MON CRT; 05/29/2022, 12:30 AM CDT * Interdisciplinary - Nishi Khan RN - 05/28/2022 6:51 PM CDT Initial Skin Assessment Patient assessed and Plan of Care discussed with BORIS Evans Wounds noted: none Pressure Prevention and Moisture Management interventions to implement: none Wound care: N/A NISHI KHAN RN * Plan of Care - Mariaelena Patten RN - 05/28/2022 6:50 PM CDT Problem: Infection Goal: Absence of Infection Signs and Symptoms Outcome: Ongoing (see interventions/notes) Intervention: Prevent or Manage Infection Flowsheets Taken 05/28/20221841 Infection Management: aseptic techniques maintained Taken 05/28/2022 1500 Fever Reduction/Comfort Measures: lightweight bedding lightweight clothing Problem: Adult Inpatient Plan of Care Goal: Plan of Care Review Outcome: Ongoing (see interventions/notes) Flowsheets (Taken 05/28/20221841) Progress: progress towards functional goals is fair Plan of Care Reviewed With: patient Outcome Summary: Pt on 5L per NC, O2 sat in mid 90s. Today's Goal: Maintain O2 sat greater than 92% Does the patient need assistance with discharge and/or transitioning to the next level of care?: No, no needs anticipated Goal: Absence of Hospital-Acquired Illness or Injury Outcome: Ongoing (see interventions/notes) Intervention: Prevent and Manage VTE (Venous Thromboembolism) Risk Flowsheets (Taken 05/28/2022 1500) VTE Prevention/Management: ambulation encouraged Goal: Optimal Comfort and Wellbeing Outcome: Ongoing (see interventions/notes) Intervention: Provide Person-Centered Care Flowsheets (Taken 05/28/2022 1500) Trust Relationship/Rapport: care explained choices provided questions encouraged questions answered empathic listening provided Goal: Readiness for Transition of Care Outcome: Ongoing (see interventions/notes) * Interdisciplinary - Mariaelena Patten RN - 05/28/2022 2:59 PM CDT Pt arrived to room 230. Pt ambulated without difficulty to bathroom. Pt on 5L per NC, no c/o pain at this time. Pt states she does not wear oxygen at home. No c/o pain at this time. Remdesivir started per JAN. Skin assessment completed by this nurse and egg smeller, no open areas. Bruises present to bilateral forearms. documented in this encounter Plan of Treatment Upcoming Encounters Date Type Department Care Team (Late st Contact Info) Description 12/18/2024 2:15 PM KNITTER MACHINE Office Visit [facility] - Neurology [facility] [address] [place] [address] Adeel Covarrubias MD [address] [place] [address] Scheduled Orders Name Type Priority Associated Diagnoses Orde r Schedule Complete Blood Count (CBC) WITH Diff Lab Routine COVID-19 Expected: 06/08/2022, Expires: 08/05/2022 BMP Lab Routine COVID-19 Expected: 06/08/2022, Expires: 09/04/2022 Scheduled Referrals Name Type Priority Associated Diagnoses Orde r Schedule [facility] REFERRAL Outpatient Referral Routine COVID-19 Expected: 06/04/2022, Expires: 06/04/2023 documented as of this encounter Procedures Procedure Name Priority Date/Time Associated Diagnosis Comments PROTIME (PT) (PROTHROMBIN TIME) Routine 06/04/2022 4:41 AM CDT CBC WITH AUTO DIFFERENTIAL Routine 06/04/2022 3:53 AM CDT CMP (COMPREHENSIVE METABOLIC PANEL) Routine 06/04/2022 3:53 AM CDT COMPLETE BLOOD COUNT (CBC) WITH DIFF Routine 06/04/2022 3:53 AM CDT POCT GLUCOSE Routine 06/03/2022 9:05 PM CDT POCT GLUCOSE Routine 06/03/2022 5:14 PM CDT POCT GLUCOSE Routine 06/03/2022 12:07 PM CDT CBC WITH AUTO DIFFERENTIAL Routine 06/03/2022 4:18 AM CDT PROTIME (PT) (PROTHROMBIN TIME) Routine 06/03/2022 4:18 AM CDT CMP (COMPREHENSIVE METABOLIC PANEL) Routine 06/03/2022 4:18 AM CDT COMPLETE BLOOD COUNT (CBC) WITH DIFF Routine 06/03/2022 4:18 AM CDT POCT GLUCOSE Routine 06/02/2022 8:[address] ANGIO CHEST W/WO CONTRAST WITH PP (POST PROCESSING) Stat with Interpretation 06/02/2022 12:25 PM CDT HEMOGLOBIN A1C W/ ESTIMATED GLUCOSE Routine 06/02/2022 4:15 AM CDT N-TERMINAL- PRO B TYPE NATRIURETIC PEPTIDE Routine 06/02/2022 4:15 AM CDT CBC WITH AUTO DIFFERENTIAL Routine 06/02/2022 4:15 AM CDT PROTIME (PT) (PROTHROMBIN TIME) Routine 06/02/2022 4:15 AM CDT CMP (COMPREHENSIVE METABOLIC PANEL) Routine 06/02/2022 4:15 AM CDT COMPLETE BLOOD COUNT (CBC) WITH DIFF Routine 06/02/2022 4:15 AM CDT CBC WITH AUTO DIFFERENTIAL Routine 06/01/2022 5:51 AM CDT D-DIMER Routine 06/01/2022 5:51 AM CDT CMP (COMPREHENSIVE METABOLIC PANEL) Routine 06/01/2022 5:51 AM CDT COMPLETE BLOOD COUNT (CBC) WITH DIFF Routine 06/01/2022 5:51 AM CDT BLOOD GASES, ARTERIAL W/ O2 SATURATION Timed 05/31/2022 1:05 PM CDT XR CHEST SINGLE VIEW PORTABLE STAT 05/31/2022 11:03 AM CDT BLOOD GASES, ARTERIAL W/ O2 SATURATION STAT 05/31/2022 10:22 AM CDT CBC WITH AUTO DIFFERENTIAL Routine 05/31/2022 4:40 AM CDT PROTIME (PT) (PROTHROMBIN TIME) Routine 05/31/2022 4:40 AM CDT CMP (COMPREHENSIVE METABOLIC PANEL) Routine 05/31/2022 4:40 AM CDT COMPLETE BLOOD COUNT (CBC) WITH DIFF Routine 05/31/2022 4:[address] HEAD OR BRAIN WO CONTRAST Stat with Interpretation 05/30/2022 4:09 PM CDT CBC WITH AUTO DIFFERENTIAL Routine 05/30/2022 5:40 AM CDT PROTIME (PT) (PROTHROMBIN TIME) Routine 05/30/2022 5:40 AM CDT CMP (COMPREHENSIVE METABOLIC PANEL) Routine 05/30/2022 5:40 AM CDT COMPLETE BLOOD COUNT (CBC) WITH DIFF Routine 05/30/2022 5:40 AM CDT POCT GLUCOSE Routine 05/29/2022 12:48 PM CDT CBC WITH AUTO DIFFERENTIAL Routine 05/29/2022 4:40 AM CDT TROPONIN I (TRP I) Routine 05/29/2022 4: 40 AM CDT PROTIME (PT) (PROTHROMBIN TIME) Routine 05/29/2022 4:40 AM CDT CMP (COMPREHENSIVE METABOLIC PANEL) Routine 05/29/2022 4:40 AM CDT COMPLETE BLOOD COUNT (CBC) WITH DIFF Routine 05/29/2022 4:40 AM CDT MDI TREATMENT RT-INITIAL Routine 05/29/2022 12:37 AM CDT MDI TREATMENT RT-INITIAL Routine 05/29/2022 12:37 AM CDT PROTIME (PT) (PROTHROMBIN TIME) STAT 05/28/2022 1:05 PM CDT SARS-COV-2 BY MOLECULAR STAT 05/28/2022 12:[address] ANGIO CHEST W/WO CONTRAST WITH PP (POST PROCESSING) Stat with Interpretation 05/28/2022 11:54 AM CDT BLOOD GASES, ARTERIAL W/ O2 SATURATION STAT 05/28/2022 11:10 AM CDT N-TERMINAL- PRO B TYPE NATRIURETIC PEPTIDE STAT 05/28/2022 11:00 AM CDT CBC WITH AUTO DIFFERENTIAL STAT 05/28/2022 11:00 AM CDT TROPONIN I (TRP I) STAT 05/28/2022 11:00 AM CDT ERYTHROCYTE SEDIMENTATION RATE (ESR) STAT 05/28/2022 11:00 AM CDT LACTIC ACID (LACTATE) STAT 05/28/2022 11:00 AM CDT CMP (COMPREHENSIVE METABOLIC PANEL) STAT 05/28/2022 11:00 AM CDT COMPLETE BLOOD COUNT (CBC) WITH DIFF STAT 05/28/2022 11:00 AM CDT MDI TREATMENT RT-INITIAL STAT 05/28/2022 10:43 AM CDT EKG 12 LEAD STAT 05/28/2022 10:41 AM CDT CRITICAL CARE Routine 05/28/2022 10:41 AM CDT documented in this encounter Results * ADULT TRANS THORACIC ECHO 2D COMPLT W CONT (06/14/2022 8:46 AM CDT) AV Peak Grad mmHg 5.38 mmHg RESULTING AGENCY Mean Aortic Valve Gradient (MAVG) 3 mmHg RESULTING AGENCY LV end niko diam cm 4.19 cm RESULTING AGENCY LV end sys diam cm 2.63 cm RESULTING AGENCY Aortic Root Diam cm 3.3 cm RESULTING AGENCY LA vol index ml/m2 25 ml/m2 RESULTING AGENCY LVOT Peak Ari m/sec 0.92 m/sec RESULTING AGENCY AV Peak Ari m/sec 1.16 m/sec RESULTING AGENCY MVA by PHT cm2 3.33 cm2 RESUL TING AGENCY E/A Ratio 0.66 RESULTING AGENCY TR Ari m/sec 1.83 m/sec RESULTI NG AGENCY E/E' 5.5 RESULTING AGENCY AV Area (VTI) cm2 3.13 cm2 RESULTING AGENCY SEPTUM DIASTOLIC CM 1.05 cm RESULTING AGENCY PW DIASTOLIC CM 0.91 cm RESU LTING AGENCY LA VOLUME 42.6 ml RESULTING AGENCY LV EF(estimated)% 58 RESULTING AGENCY Anatomical Region Laterality Modality CARDIO N/A Ultrasound Narrative 06/14/2022 2:52 PM CDT Transthoracic Echocardiography Report (TTE) Patient name ?JAYA Mathews ? 1950 Patient ID ([facility]) ?[id number] ? Study Date06/14/2022 Technical quality: Adequate Type of Study: TTE procedure: Adult Trans Thoracic Echo 2D Complt W Cont. Priority:RoutineHR: 65 bpmBP: 123/74 mmHg Conclusions Summary Images limited due to body habitus and acoustic windows. LV systolic function is preserved. 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 Leaflet mobility is preserved. Mitral annular calcification is seen. Calcification extends into the posterior mitral leaflet Aortic Valve The aortic valve is trileaflet with normal structure. There is no evidence of aortic valve stenosis. There is no significant aortic valve insufficiency. 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 Mild tricuspid regurgitations noted. RVSP is estimated at 20 mm Hg Pulmonic Valve The pulmonic valve structure Is not well visualized. Left Atrium The left atrium size is normal. Left Ventricle LV systolic function is preserved. Ejection fraction is estimated 55-60 Right Atrium The right atrium size is normal. Right Ventricle Normal right ventricular cavity size and normal systolic function. Pericardial Effusion No evidence of pericardial effusion. Miscellaneous Images limited due to body habitus and acoustic windows. Valves Mitral Valve Area (PHT): 3.33 cm^2 Peak E-Wave: 0.41 m/s ?Deceleration Time: 362 msec Peak A-Wave: 0.63 m/s Peak Gradient: 0.69 mmHg P1/2t: 66 msec Tissue Doppler E' Velocity: 0.06 m/s ?E/E':5.5 A' Velocity: 0.08 m/s ?E/Lat E': 5.5 E/A Ratio: 0.66 ?E/Med E':6 Aortic Valve Area (continuity): 3.13 cm^2 ? Mean Velocity: 0.81 m/s Area (VTI):3.13 cm^2 ? Mean Gradient: 3 mmHg Peak Velocity: 1.16 m/s ?AV VTI: 24.5 cm Peak Gradient: 5.38 mmHg Cusp Separation: 2 cm Tricuspid Valve TR Velocity: 1.83 m/s TR Gradient: 13.4 mmHg Pulmonic Valve Peak Velocity: 0.84 m/s Peak Gradient: 2.84 mmHg LVOT Peak Velocity: 0.92 m/s ? Mean Velocity: 0.63 m/s Peak Gradient: 3 mmHg ? Mean Gradient: 2 mmHg LVOT Diameter: 2.2 cm ? LVOT VTI: 20.2 cm Stroke Volume: 77 ml ?Stroke Volume Index: 44.77 ml/m^2 Structures Left Ventricle Diastolic Dimension: 4.19 cm ? Systolic Dimension: 2.63 cm Septum Diastolic: 1.05 cm ?Septum Systolic: 1.3 cm PW Diastolic: 0.91 cm ?PW Systolic: 1.6 cm Diastolic Length: 18.2 cm ?Systolic Length: 10.8 cm EF Calculated: 52.04% ?CI: 2.9 l/min*m^2 CO: 4.99 l/min RWT: 0.43 ?LV EDV: 44.2 ml FS: 37.23 % ?LV EDV Index: 26 m^2 LV Length: 6.69 cm ? LV ESV: 21.2 ml LVOT Diameter: 2.2 cm ?LV ESV Index: 12 m^2 Right Ventricle Tissue Doppler RV S': 10.1 Left Atrium LA Dimension: 2.5 cm ?LA Area: 19.3 cm^2 LA/Aorta: 0.76 ?LA Volume: 42.6 ml LA Systolic Pressure: 8.92 mmHg ? LA Index: 25ml/m^2 Right Atrium ? RA Area: 14 cm^2 Great Vessels Aorta ?Ascending Aorta: 3.2 cm ?Ascending Aorta Index:1.86 cm/m^2 Demographics Age ?72 ? Gender ?Female Race ?Height ?65.98 in. ? Weight ?139.99 lbs. ? BMI (BSA) ? 22.61 kg/m^2 ? (1.72 m^2) Web Content Coordinator ?Shaq Duffy Interpreting ? Jitendra Ignacio ?Referring Physician ?Darren ?Physician Procedure Note Darren Kidd MD - 06/14/2022 Transthoracic Echocardiography Report (TTE) Patient name JAYA Mathews Lisa 1950 Patient ID ([facility]) [id number] Study Date06/14/2022 Technical quality: Adequate Type of Study: TTE procedure: Adult Trans Thoracic Echo 2D Complt W Cont. Priority:RoutineHR: 65 bpmBP: 123/74 mmHg Conclusions Summary Images limited due to body habitus and acoustic windows. LV systolic function is preserved. 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 Leaflet mobility is preserved. Mitral annular calcification is seen. Calcification extends into the posterior mitral leaflet Aortic Valve The aortic valve is trileaflet with normal structure. There is no evidence of aortic valve stenosis. There is no significant aortic valve insufficiency. 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 Mild tricuspid regurgitations noted. RVSP is estimated at 20 mm Hg Pulmonic Valve The pulmonic valve structure Is not well visualized. Left Atrium The left atrium size is normal. Left Ventricle LV systolic function is preserved. Ejection fraction is estimated 55-60 Right Atrium The right atrium size is normal. Right Ventricle Normal right ventricular cavity size and normal systolic function. Pericardial Effusion No evidence of pericardial effusion. Miscellaneous Images limited due to body habitus and acoustic windows. Valves Mitral Valve Area (PHT): 3.33 cm^2 Peak E-Wave: 0.41 m/s Deceleration Time: 362 msec Peak A-Wave: 0.63 m/s Peak Gradient: 0.69 mmHg P1/2t: 66 msec Tissue Doppler E' Velocity: 0.06 m/s E/E':5.5 A' Velocity: 0.08 m/s E/Lat E': 5.5 E/A Ratio: 0.66 E/Med E':6 Aortic Valve Area (continuity): 3.13 cm^2 Mean Velocity: 0.81 m/s Area (VTI):3.13 cm^2 Mean Gradient: 3 mmHg Peak Velocity: 1.16 m/s AV VTI: 24.5 cm Peak Gradient: 5.38 mmHg Cusp Separation: 2 cm Tricuspid Valve TR Velocity: 1.83 m/s TR Gradient: 13.4 mmHg Pulmonic Valve Peak Velocity: 0.84 m/s Peak Gradient: 2.84 mmHg LVOT Peak Velocity: 0.92 m/s Mean Velocity: 0.63 m/s Peak Gradient: 3 mmHg Mean Gradient: 2 mmHg LVOT Diameter: 2.2 cm LVOT VTI: 20.2 cm Stroke Volume: 77 ml Stroke Volume Index: 44.77 ml/m^2 Structures Left Ventricle Diastolic Dimension: 4.19 cm Systolic Dimension: 2.63 cm Septum Diastolic: 1.05 cm Septum Systolic: 1.3 cm PW Diastolic: 0.91 cm PW Systolic: 1.6 cm Diastolic Length: 18.2 cm Systolic Length: 10.8 cm EF Calculated: 52.04% CI: 2.9 l/min*m^2 CO: 4.99 l/min RWT: 0.43 LV EDV: 44.2 ml FS: 37.23 % LV EDV Index: 26 m^2 LV Length: 6.69 cm LV ESV: 21.2 ml LVOT Diameter: 2.2 cm LV ESV Index: 12 m^2 Right Ventricle Tissue Doppler RV S': 10.1 Left Atrium LA Dimension: 2.5 cm LA Area: 19.3 cm^2 LA/Aorta: 0.76 LA Volume: 42.6 ml LA Systolic Pressure: 8.92 mmHg LA Index: 25ml/m^2 Right Atrium RA Area: 14 cm^2 Great Vessels Aorta Ascending Aorta: 3.2 cm Ascending Aorta Index:1.86 cm/m^2 Demographics Age 72 Gender Female Race Height 65.98 in. Weight 139.99 lbs. BMI (BSA) 22.61 kg/m^2 (1.72 m^2) Web Content Coordinator Shaq Duffy Interpreting Jitendra Ignacio Referring Physician Darren Physician Jessi Iyer MD IMG ECHO ORDERABLES Edited Re sult - Final * PT/INR Routine (06/04/2022 4:41 AM CDT) Only the most recent of7 resultswithin the time period is included. PROTIME-PATIENT 12.7 11.6 - 14.8 sec 06/04/2022 5:08 AM CDT [facility] INR 1.0 0.9 - 1.2 06/04/2022 5:08 AM CDT [facility] Comment: Therapeutic Ranges INR = 2.0-3.0: Venous thromb, atrial fib, pul embolism, tissue heart valve, ami. INR = 2.5-3.5: Mechanical heart valve Critical value for INR is >/= 4.5 Blood BLOOD SPECIMEN / Unknown Venipuncture / Unknown 06/04/2022 4:41 AM CDT 06/04/2022 4:51 AM CDT Jessi Iyer MD HEMATOLOGY ORDERABLES Final R esult [facility] [address] [place] [address] * (ABNORMAL) CBC with Auto Differential (06/04/2022 3:53 AM CDT) Only the most recent of8 resultswithin the time period is included. WBC 7.37 4.00 - 12.00 10(3)/mcL 06/04/2022 4:09 AM CDT [facility] RBC 4.71 3.80 - 5.30 10(6)/mcL 06/04/2022 4:09 AM CDT [facility] HEMOGLOBIN (HGB) 14.6 12.0 - 15.8 g/dL 06/04/2022 4:09 AM CDT [facility] HEMATOCRIT (HCT) 44.9 36.0 - 47.0 % 06/04/2022 4:09 AM CDT [facility] MCV 95.3 82.0 - 96.0 fL 06/04/2022 4:09 AM CDT [facility] MCH 31.0 26.0 - 34.0 pg 06/04/2022 4:09 AM CDT [facility] MCHC 32.5 31.0 - 36.0 g/dL 06/04/2022 4:09 AM CDT [facility] PLATELET COUNT 316 140 - 440 10(3)/mcL 06/04/2022 4:09 AM CDT [facility] RDW 12.6 11.8 - 15.5 % 06/04/2022 4:09 AM CDT [facility] MPV 8.1(L) 9.7 - 12.4 fL 06/04/2022 4:09 AM CDT [facility] NEUTROPHILS 45.9(L) 47.0 - 73.0 % 06/04/2022 4:09 AM CDT [facility] LYMPHOCYTES 47.8(H) 18.0 - 42.0 % 06/04/2022 4:09 AM CDT [facility] MONOCYTES 4.9 4.0 - 12.0 % 06/04/2022 4:09 AM CDT [facility] EOSINOPHILS 0.9 0.0 - 5.0 % 06/04/2022 4:09 AM CDT [facility] BASOPHILS 0.5 0.0 - 1.0 % 06/04/2022 4:09 AM CDT [facility] ABSOLUTE NEUTROPHILS 3.38 1.60 - 7.70 10(3)/mcL 06/04/2022 4:09 AM CDT [facility] ABSOLUTE LYMPHOCYTES 3.52(H) 1.30 - 3.20 10(3)/mcL 06/04/2022 4:09 AM CDT [facility] ABSOLUTE MONOCYTES 0.36 0.20 - 1.00 10(3)/mcL 06/04/2022 4:09 AM CDT [facility] ABSOLUTE EOSINOPHIL 0.07 0.00 - 0.40 10(3)/mcL 06/04/2022 4:09 AM CDT [facility] ABSOLUTE BASOPHILS 0.04 0.00 - 0.10 10(3)/mcL 06/04/2022 4:09 AM CDT [facility] NRBC PER 100 WBC 0 06/04/20 4:09 AM CDT [facility] Blood BLOOD SPECIMEN / Unknown Venipuncture / Unknown 06/04/2022 3:53 AM CDT 06/04/2022 4:01 AM CDT us Jessi Iyer MD HEMATOLOGY ORDERABLES Final R esult [facility] [address] [place] [address] * (ABNORMAL) CMP (Comprehensive Metabolic Panel) (06/04/2022 3:53 AM CDT) Only the most recent of8 resultswithin the time period is included. SODIUM 132(L) 136 - 144 mmol/L 06/04/2022 4:34 AM CDT [facility] POTASSIUM 3.9 3.5 - 5.1 mmol/L 06/04/2022 4:34 AM CDT [facility] CHLORIDE 94(L) 100 - 110 mmol/L 06/04/2022 4:34 AM CDT [facility] CO2, VENOUS 31 22 - 32 mmol/L 06/04/2022 4:34 AM CDT [facility] ANION GAP 10.9 8.0 - 20.0 mmol/L 06/04/2022 4:34 AM CDT [facility] GLUCOSE 93 70 - 99 mg/dL 06/04/2022 4:34 AM CDT [facility] BUN 12 8 - 23 mg/dL 06/04/2022 4:34 AM T [facility] CREATININE, BLOOD 0.48(L) 0.60 - 1.10 mg/dL 06/04/2022 4:34 AM [facility] BUN/CREATININE RATIO 25(H) 12 - 20 ratio 06/04/2022 4:34 AM [facility] TOTAL PROTEIN 5.7(L) 6.0 - 8.3 g/dL 06/04/2022 4:34 AM T [facility] ALBUMIN 3.5 3.5 - 5.2 g/dL 06/04/2022 4:34 AM [facility] Comment: The colormetric methods used for the determination of Albumin may lead to falsely elevated test results in patients suffering from renal failure or insufficiency due to interference with other proteins. A/G RATIO 1.6 1.0 - 2.0 06/04/2022 4:34 AM [facility] CALCIUM 8.9 8.9 - 10.3 mg/dL 06/04/2022 4:34 AM [facility] T BILI 0.3 <=1.2 mg/dL 06/04/2022 4:34 AM [facility] SGOT (AST) 28 <=32 U/L 06/04/2022 4:34 AM [facility] SGPT (ALT) 25 <=41 U/L 06/04/2022 4:34 AM [facility] ALKALINE PHOSPHATASE 60 35 - 105 U/L 06/04/2022 4:34 AM [facility] GFR, EST. NONAFRICAN >60 >=60 06/04/2022 4:34 AM [facility] GFR, EST. >60 >=60 022 4:34 AM [facility] Comment: Creatinine Clearance is the preferred criteria for selecting drug dose adjustments in renally impaired patients. ??The GFR is provided as additional pertinent clinical information. GFR is reported in mL/min/1.73 sq m. Blood Venipuncture / Unknown 06/04/2022 3:53 AM CDT 06/04/2022 4:01 AM CDT us Jessi Iyer MD CHEMISTRY ORDERABLES Final Re sult Performing Organization Address City/[facility] Co de Phone Number [facility] [place] [address] * (ABNORMAL) POCT Glucose (06/03/2022 9:05 PM CDT) Only the most recent of5 resultswithin the time period is included. [facility] Signature GLUCOSE,BEDSID E POCT 119(H) 70 - 99 mg/dL 06/03/2022 9:10 PM CDT [facility] Blood 06/03/2022 9:05 PM CDT 06/03/2022 9:10 PM CDT us None Provider POINT OF CARE TESTING Final Resu lt Performing Organization Address [facility] Co de Phone Number [facility] [address] [place] [address] * CT ANGIO CHEST W/WO CONTRAST WITH PP (POST PROCESSING) (06/02/2022 12:25 PM CDT) Only the most recent of2 resultswithin the time period is included. Anatomical Region Laterality Modality vascular N/A Computed Tomogra phy 06/02/2022 12:4 8 PM CDT Impressions 06/02/2022 12:51 PM CDT IMPRESSION: 1. ?? Persistent lower lobe bronchial wall thickening as evidence for bronchitis. 2. ?? Small bilateral pleural effusions with mild bibasilar atelectasis. ?? 3. ?? Slight improvement in a 10 mm nodular consolidation within the posterior right upper lobe. ??Mild patchy ground-glass within the left upper lobe is grossly stable compared to 05/28/2022. ??Small indeterminate cavitary nodules within the central left lower lobe are stable. ??Recommend short-term interval follow-up CT in 6-8 weeks. 4. ?? Other, unchanged findings as above. Narrative 06/02/2022 12:51 PM CDT EXAM DESCRIPTION: ?? CT ANGIO CHEST W/WO CONTRAST WITH PP (POST PROCESSING) REASON FOR STUDY: ?? Shortness of breath ??COVID-19. ??Shortness of breath. TECHNIQUE: CT angiogram of the chest performed with intravenous contrast using helical scanning technique with dynamic intravenous contrast injection. Reconstructed coronal and sagittal MPR images reviewed. All images stored on PACS. ?? 3D MIP images rendered on scanning unit and reviewed at time of interpretation. ??Automated exposure control was used as a dose optimization technique for this examination. CONTRAST TYPE/DOSE: ?? 100 mL Isovue 370 intravenous contrast ?? injected via ?? the right forearm COMPARISON: ?? 05/28/2022 FINDINGS: VASCULATURE: ?? No pulmonary embolism is seen. LUNGS: Mild emphysema. ?? Mild bibasilar atelectasis with trace effusions. ??Mild lower lobe bronchial wall thickening. ??A 10 mm nodular consolidation within the posterior right upper lobe appears to be slightly decreased in size compared to the prior examination where measured approximately 13 mm (33). ??A 6 mm pleural nodule within the right middle lobe is stable in size but decreased in density (93). ??6 mm central right lower lobe pulmonary nodule abutting a vessel is stable (67). ??Grossly stable minimal patchy ground-glass within the left upper lobe (42). ??Trace ground-glass within the left apex is also noted (20). ??Small cavitary nodules within the central left lower lobe measuring up to 7 mm are grossly stable (60). MEDIASTINUM/WARREN: ?? Heterogeneous appearance of the right thyroid with possible 10 mm nodule recommend close attention on follow-up. ?? Thickening of a decompressed esophagus is noted. ??No discrete mediastinal hilar lymphadenopathy. HEART: ?? Heart is mildly enlarged with coronary atherosclerosis. ??No significant effusion. AXILLA: ?? Grossly stable 1.5 x 0.8 cm left axillary lymph node (63). Grossly stable 1.2 x 1.0 cm right axillary lymph node (57). ?? Recommend close attention on follow-up. CHEST WALL: ?? No masses. ??No subcutaneous air. HARDWARE/LINES/TUBES: ?? None. UPPER ABDOMEN: ?? Stable 8 mm hypoattenuating lesion within the left lateral section, too small to further characterize, likely cyst (220). ??Stable thickening and nodularity of the left adrenal gland measuring up to 1.7 cm, likely adenomatous change. ??Recommend close attention on follow-up. MUSCULOSKELETAL: ?? No significant abnormality. OTHER: ?? No significant abnormality. THIS IS AN ELECTRONICALLY VERIFIED FINAL REPORT 06/02/2022 12:48 PM - Electronically signed by ??Tripp Alvarez M.D. AG: AG D: ??06/02/2022 12:48 PM T: ??06/02/2022 12:48 PM Report ID: [id number] Reading Location: ??[id number] Procedure Note Tripp Alvarez MD - 06/02/2022 EXAM DESCRIPTION: CT ANGIO CHEST W/WO CONTRAST WITH PP (POST PROCESSING) REASON FOR STUDY: Shortness of breath COVID-19. Shortness of breath. TECHNIQUE: CT angiogram of the chest performed with intravenous contrast using helical scanning technique with dynamic intravenous contrast injection. Reconstructed coronal and sagittal MPR images reviewed. All images stored on PACS. 3D MIP images rendered on scanning unit and reviewed at time of interpretation. Automated exposure control was used as a dose optimization technique for this examination. CONTRAST TYPE/DOSE: 100 mL Isovue 370 intravenous contrast injected via the right forearm COMPARISON: 05/28/2022 FINDINGS: VASCULATURE: No pulmonary embolism is seen. LUNGS: Mild emphysema. Mild bibasilar atelectasis with trace effusions. Mild lower lobe bronchial wall thickening. A 10 mm nodular consolidation within the posterior right upper lobe appears to be slightly decreased in size compared to the prior examination where measured approximately 13 mm (33). A 6 mm pleural nodule within the right middle lobe is stable in size but decreased in density (93). 6 mm central right lower lobe pulmonary nodule abutting a vessel is stable (67). Grossly stable minimal patchy ground-glass within the left upper lobe (42). Trace ground-glass within the left apex is also noted (20). Small cavitary nodules within the central left lower lobe measuring up to 7 mm are grossly stable (60). MEDIASTINUM/WARREN: Heterogeneous appearance of the right thyroid with possible 10 mm nodule recommend close attention on follow-up. Thickening of a decompressed esophagus is noted. No discrete mediastinal hilar lymphadenopathy. HEART: Heart is mildly enlarged with coronary atherosclerosis. No significant effusion. AXILLA: Grossly stable 1.5 x 0.8 cm left axillary lymph node (63). Grossly stable 1.2 x 1.0 cm right axillary lymph node (57). Recommend close attention on follow-up. CHEST WALL: No masses. No subcutaneous air. HARDWARE/LINES/TUBES: None. UPPER ABDOMEN: Stable 8 mm hypoattenuating lesion within the left lateral section, too small to further characterize, likely cyst (220). Stable thickening and nodularity of the left adrenal gland measuring up to 1.7 cm, likely adenomatous change. Recommend close attention on follow-up. MUSCULOSKELETAL: No significant abnormality. OTHER: No significant abnormality. THIS IS AN ELECTRONICALLY VERIFIED FINAL REPORT 06/02/2022 12:48 PM - Electronically signed by Tripp Alvarez M.D. AG: ALONZO Report ID: [id number] Reading Location: [place] [id number] IMPRESSION: 1. Persistent lower lobe bronchial wall thickening as evidence for bronchitis. 2. Small bilateral pleural effusions with mild bibasilar atelectasis. 3. Slight improvement in a 10 mm nodular consolidation within the posterior right upper lobe. Mild patchy ground-glass within the left upper lobe is grossly stable compared to 05/28/2022. Small indeterminate cavitary nodules within the central left lower lobe are stable. Recommend short-term interval follow-up CT in 6-8 weeks. 4. Other, unchanged findings as above. us Jessi Iyer MD IM CT ORDERABLES Final Resul t * (ABNORMAL) NT-proBNP (06/02/2022 4:15 AM CDT) Only the most recent of2 resultswithin the time period is included. NT PROBNP 378.0(H) 5.0 - 227.0 pg/mL 06/02/2022 5:25 AM CDT [facility] Comment:NT-proBNP values < 3 00 pg/mL have a 99% negative predictive value for excluding acute congestive heart failure (CHF) in all age groups. In the absence of renal failure, CHF is suggested in adults < 50 years of age with a NT-pro BNP > 450 pg/mL; in adults 50-75 years of age with a NT-proBNP > 900 pg/mL; and in adults > 75 years of age with a NT-proBNP > 1800 pg/mL. For patients with an e-GFR < 60 a NT-proBNP > 1200 pg/mL yields a diagnostic sensitivity and specificity of 89% and 72% for acute CHF. ([facility] data) Blood Venipuncture / Unknown 06/02/2022 4:15 AM CDT 06/02/2022 4:47 AM CDT Jessi Iyer MD CHEMISTRY ORDERABLES Final Re sult Performing Organization Address [facility] Co de Phone Number [facility] [address] [place] [address] * (ABNORMAL) Hemoglobin A1C w/ Estimated Glucose (06/02/2022 4:15 AM CDT) HGB-A1C 6.4(H) 4.0 - 6.0 % 06/02/2022 5:17 AM CDT [facility] Est Average Glucose 137.0 mg/dL 06/02/2022 5:17 AM CDT [facility] Blood Venipuncture / Unknown 06/02/2022 4:15 AM CDT 06/02/2022 4:47 AM CDT Narrative [facility] - 06/02/2022 5:17 AM CDT HEMOGLOBIN A1C: DIABETIC PATIENTS: WELL-CONTROLLED: ?? 6.2 - 7.0 INTERMEDIATE WELL-CONTROLLED: ??7.0 - 9.0 POORLY-CONTROLLED: ??>9.0 Jessi Iyer MD CHEMISTRY ORDERABLES Final Re sult Performing Organization Address [facility] Co de Phone Number [facility] [address] [place] [address] * (ABNORMAL) D-Dimer (06/01/2022 5:51 AM CDT) [facility] D DIMER 0.51(H) <0.50 mcg/mL FEU 06/01/2022 6:38 AM CDT [facility] Blood Venipuncture / Unknown 06/01/2022 5:51 AM CDT 06/01/2022 5:51 AM CDT Narrative [facility] - 06/01/2022 6:38 AM CDT The FDA has approved this method to exclude the diagnosis of DVT and/or PE at the cutoff value of <0.50 mcg/mL FEU. Jaron Hernandez MD HEMATOLOGY ORDERABLES Tiffanie rick Result [facility] [address] [place] [address] * (ABNORMAL) Blood Gases, Arterial w/ O2 Saturation (05/31/2022 1:05 PM CDT) Only the most recent of3 resultswithin the time period is included. [facility] O2 STATUS bipap 17/7, 30% FiO2 05/31/2022 1:11 PM CDT [facility] PH ARTERIAL 7.44 7.35 - 7.45 05/31/2022 1:11 PM CDT [facility] PC02 (ARTERIAL) 78(HH) 35 - 45 mmHg 05/31/2022 1:11 PM CDT [facility] PO2 (ARTERIAL) 51(L) 75 - 100 mmHg 05/31/2022 1:11 PM CDT [facility] O2 SAT ART, MEASURED 85(L) 94 - 100 % 05/31/2022 1:11 PM CDT [facility] BASE ARTERIAL 0.0 -2.0 - 2.0 mmol/L 05/31/2022 1:11 PM CDT [facility] BICARBONATE 53.0(H) 22.0 - 26.0 mmol/L 05/31/2022 1:11 PM CDT [facility] ZOILA'S TEST RESULTS Positive - Right Radial 05/31/2022 1:11 PM CDT [facility] CARBOXYHEMOGLOBIN 0.3 0.0 - 5.0 % 05/31/2022 1:11 PM CDT [facility] METHEMOGLOBIN 0.5 0.0 - 1.5 % 05/31/2022 1:11 PM CDT [facility] ART Blood Gas Arterial Punctur e / Unknown 05/31/2022 1:05 PM CDT 05/31/2022 1:07 PM CDT us Jessi Iyer MD CHEMISTRY ORDERABLES Final Re sult [facility] [place] [address] * XR CHEST SINGLE VIEW PORTABLE (05/31/2022 11:03 AM CDT) Anatomical Region Laterality Modality Chest N/A Digital Radiogra phy 05/31/2022 11:2 4 AM CDT Impressions 05/31/2022 11:27 AM CDT IMPRESSION: ?Redemonstration of slight bibasilar airspace opacities; no pleural effusion. Narrative 05/31/2022 11:27 AM CDT EXAM DESCRIPTION: ?? XR CHEST SINGLE VIEW PORTABLE REASON FOR STUDY: Worsening shortness of breath in a patient reportedly currently COVID-19 positive. ??History of COPD. TECHNIQUE: ?? Frontal ??radiographic view of the chest acquired. COMPARISON: ?? Chest radiograph 05/28/2022; CTA chest 05/28/2022. FINDINGS: LUNGS/PLEURA: ?? Redemonstration of slight bibasilar airspace opacities. ??No pleural effusion. ??No pneumothorax. ??Right upper lung calcified pulmonary granuloma. HEART/MEDIASTINUM: ?? Stable cardiomediastinal silhouette, noting calcific atherosclerosis at the aortic arch. HARDWARE/LINES/TUBES: ?? None. BONES: ?? No acute abnormality. OTHER: ?? No other significant finding. THIS IS AN ELECTRONICALLY VERIFIED FINAL REPORT 05/31/2022 11:24 AM - Electronically signed by ??Huan ARAUJO: VAN D: ??05/31/2022 11:24 AM T: ??05/31/2022 11:24 AM Report ID: [id number] Reading Location: ??[id number] Procedure Note Huan Back MD - 05/31/2022 EXAM DESCRIPTION: XR CHEST SINGLE VIEW PORTABLE REASON FOR STUDY: Worsening shortness of breath in a patient reportedly currently COVID-19 positive. History of COPD. TECHNIQUE: Frontal radiographic view of the chest acquired. COMPARISON: Chest radiograph 05/28/2022; CTA chest 05/28/2022. FINDINGS: LUNGS/PLEURA: Redemonstration of slight bibasilar airspace opacities. No pleural effusion. No pneumothorax. Right upper lung calcified pulmonary granuloma. HEART/MEDIASTINUM: Stable cardiomediastinal silhouette, noting calcific atherosclerosis at the aortic arch. HARDWARE/LINES/TUBES: None. BONES: No acute abnormality. OTHER: No other significant finding. THIS IS AN ELECTRONICALLY VERIFIED FINAL REPORT 05/31/2022 11:24 AM - Electronically signed by Huan Back M.D. VAN: VAN Report ID: [id number] Reading Location: [id number] IMPRESSION: Redemonstration of slight bibasilar airspace opacities; no pleural effusion. us Jessi Iyer MD IM DIAGNOSTIC ORDERABLES Fin al Result * CT HEAD OR BRAIN WO CONTRAST (05/30/2022 4:09 PM CDT) Anatomical Region Laterality Modality Head N/A Computed Tomogra phy 05/30/2022 4:46 PM CDT Impressions 05/30/2022 4:49 PM CDT IMPRESSION: ?? 1. ??No acute intracranial findings. ??Calvarium intact. 2. ??Mild bilateral periventricular white matter low densities, nonspecific but most commonly microangiopathic chronic white matter ischemic change. 3. ??Extensive bilateral chronic paranasal sinusitis. Narrative 05/30/2022 4:49 PM CDT EXAM DESCRIPTION: ?? CT HEAD OR BRAIN WO CONTRAST REASON FOR STUDY: ?? Acute headaches. TECHNIQUE: Axial images acquired through the brain without intravenous contrast. ??Images stored on PACS. ?? Automated exposure control was used as a dose optimization technique for this examination. COMPARISON: ?? None available. FINDINGS: BRAIN: ?? No acute intracranial hemorrhage, midline shift or mass effect. ?Mild, ill-defined bilateral periventricular white matter low densities present. ?Cerebral volume is intact. ?? Ventricles are normal in size and configuration. EXTRA-AXIAL SPACES: ?? No fluid collections. No masses. CALVARIUM: ?? No fracture. SINUSES/MASTOIDS: ?? Diffuse moderate wall thickening of bilateral ethmoid and sphenoid sinuses. ??Bilateral mastoid air cells are clear. ORBITS: ?? No significant abnormality. OTHER: ?? No other significant abnormality. THIS IS AN ELECTRONICALLY VERIFIED FINAL REPORT 05/30/2022 4:46 PM - Electronically signed by ??Ahsan Quan M.D. ML: ML D: ??05/30/2022 4:46 PM T: ??05/30/2022 4:46 PM Report ID: [id number] Reading Location: ??[id number] Procedure Note Ahsan Quan MD - 05/30/2022 EXAM DESCRIPTION: CT HEAD OR BRAIN WO CONTRAST REASON FOR STUDY: Acute headaches. TECHNIQUE: Axial images acquired through the brain without intravenous contrast. Images stored on PACS. Automated exposure control was used as a dose optimization technique for this examination. COMPARISON: None available. FINDINGS: BRAIN: No acute intracranial hemorrhage, midline shift or mass effect. Mild, ill-defined bilateral periventricular white matter low densities present. Cerebral volume is intact. Ventricles are normal in size and configuration. EXTRA-AXIAL SPACES: No fluid collections. No masses. CALVARIUM: No fracture. SINUSES/MASTOIDS: Diffuse moderate wall thickening of bilateral ethmoid and sphenoid sinuses. Bilateral mastoid air cells are clear. ORBITS: No significant abnormality. OTHER: No other significant abnormality. THIS IS AN ELECTRONICALLY VERIFIED FINAL REPORT 05/30/2022 4:46 PM - Electronically signed by Ahsan Quan M.D. ML: ML Report ID: [id number] Reading Location: [place] [id number] IMPRESSION: 1. No acute intracranial findings. Calvarium intact. 2. Mild bilateral periventricular white matter low densities, nonspecific but most commonly microangiopathic chronic white matter ischemic change. 3. Extensive bilateral chronic paranasal sinusitis. us Jessi Iyer MD IMG CT ORDERABLES Final Resul t * Troponin I (Trp I) (05/29/2022 4:40 AM CDT) Only the most recent of2 resultswithin the time period is included. TROPONIN I <0.300 <=0.300 ng/mL 05/29/2022 6:35 AM CDT [facility] Blood Venipuncture / Unknown 05/29/2022 4:40 AM CDT 05/29/2022 5:58 AM CDT Edwige Reyez APRN, CNP CHEMISTRY ORDERABLES Final Result [facility] [address] [place] [address] * (ABNORMAL) SARS-COV-2 BY MOLECULAR (05/28/2022 12:02 PM CDT) SARSCOV2 DETECTED(A ) (Reference Range for this test is Not Detected) [facility] ID NOW B 05/28/2022 12:17 PM CDT [facility] Comment:This test was perfor med by a MOLECULAR, NON-PCR method Other NASAL STRUCTURE / Unknown Non-Phlebotomy Collection / Unknown 05/28/2022 12:02 PM CDT 05/28/2022 12:05 PM CDT Narrative [facility] - 05/28/2022 12:17 PM CDT This test has been authorized by [...] information for Clinicians can be found at: https://www.fda.gov/media/478498/download Additional information for Patients can be found at: https://www.fda.gov/media/113092/download Danny Morales MD MICROBIOLOGY - GENERAL ORDERABLES Final Result Performing Organization Address [facility] Co de Phone Number [facility] [address] [place] [address] * Lactic Acid (Lactate) Serum (05/28/2022 11:00 AM CDT) LACTIC ACID 0.7 0.5 - 2.0 mmol/L 05/28/2022 11:33 AM CDT [facility] Blood Venipuncture / Unknown 05/28/2022 11:00 AM CDT 05/28/2022 11:13 AM CDT Danny Morales MD CHEMISTRY ORDERABLES F inal Result Performing Organization Address City/[facility] Co de Phone Number [facility] [address] [place] [address] * Erythrocyte Sedimentation Rate (ESR) (05/28/2022 11:00 AM CDT) ESR (SED RATE, ERYTHROCYTE SEDIMENTATION RATE) 19 <30 mm/h 05/28/2022 11:23 AM CDT [facility] Comment: Patients presenting with increased level of fibrinogen, gamma globulins, or abnormally shaped RBCs could affect the results for the erythrocyte sedimentation rate (ESR). Results should be clinically correlated. Blood Venipuncture / Unknown 05/28/2022 11:00 AM CDT 05/28/2022 11:13 AM CDT us Danny Morales MD HEMATOLOGY ORDERABLES Final Result Performing Organization Address [facility] de Phone Number [facility] [place] [address] * EKG 12 LEAD (05/28/2022 10:41 AM CDT) Ventricular Rate BPM EXTERNAL EKG Atrial Rate BPM EXTERNAL EKG P-R Interval 146 ms EXTERNAL EKG QRS Duration 90 ms EXTERNAL EKG Q-T Duration 394 ms EXTERNAL EKG QTC CALCULATION 432 ms EXTERNAL EKG P [place] 67 degrees EXTERNAL EKG R [place] 63 degrees EXTERNAL EKG T [place] 69 degrees EXTERNAL EKG 05/28/2022 10:4 1 AM CDT Impressions EXTERNAL EKG - 05/29/2022 12:06 PM CDT Sinus rhythm Comparison Summary: No serial comparison made Summary: Normal ECG Confirmed by Jitendra Banks [id number] on 05/29/2022 12:06:21 PM Narrative Procedure Note Darren Kidd MD - 05/29/2022 IMPRESSION: Sinus rhythm Comparison Summary: No serial comparison made Summary: Normal ECG Confirmed by Jitendra Banks [id number] on 05/29/2022 12:06:21 PM us Danny Morales MD IMG ECG ORDERABLES Fin al Result Performing Organization Address [facility] Co de Phone Number EXTERNAL EKG * Critical Care (05/28/2022 10:41 AM CDT) Narrative Danny Morales MD - 05/28/2022 10:41 AM CDT Danny Morales MD ? 05/28/2022 ??5:25 PM Critical Care Performed by: Danny Morales MD Authorized by: Danny Morales MD Critical care provider statement: ??Critical care time (minutes): ??40 ??Critical care was necessary to treat or prevent imminent or life-threatening deterioration of the following conditions: ??Respiratory failure ??Critical care was time spent personally by me on the following activities: ??Development of treatment plan with patient or surrogate, discussions with consultants, evaluation of patient's response to treatment, examination of patient, review of old charts, re-evaluation of patient's condition, pulse oximetry, ordering and review of radiographic studies, ordering and review of laboratory studies, ordering and performing treatments and interventions and obtaining history from patient or surrogate us Danny Morales MD PROCEDURE/MINOR SURGIC AL ORDERABLES Final Result documented in this encounter Visit Diagnoses Diagnosis Acute respiratory failure with hypoxia (HCC)- Primary Acute respiratory failure COVID-19 Hypoxia Hypoxemia Moderate COPD (chronic obstructive pulmonary disease) (HCC) Chronic airway obstruction, not elsewhere classified COVID-19 COPD with acute exacerbation (HCC) Obstructive chronic bronchitis with exacerbation Hyponatremia Hyposmolality and/or hyponatremia Essential tremor Essential and other specified forms of tremor Gastroesophageal reflux disease without esophagitis Esophageal reflux Hyperlipidemia Other and unspecified hyperlipidemia Anxiety and depression Dysthymic disorder COVID-19 documented in this encounter Admitting Diagnoses Diagnosis COVID-19 documented in this encounter Administered Medications Inactive Administered Medications - up to 3 most recent administrations Medication Order MAR Action Action Date Dose Rate Site 0.9 % sodium chloride solution at 75 mL/hr, Intravenous, CONTINUOUS, Starting on Sun05/28/22 at 2000, Until Sun05/30/22 at 0938 [facility] 05/28/2022 11:00 PM CDT 75 mL/hr acetaminophen (TYLENOL) suppository 650 mg 650 mg, Rectal, EVERY 4 HOURS PRN, Starting on 05/28/22 at 1928, Until 06/04/22 at 1339, Mild pain or more severe pain if patient requests, Fever, If patient is taking oral intake without complications and both PO/[place] orders are active, administer through the oral route. acetaminophen (TYLENOL) tablet 650 mg 650 mg, Oral, EVERY 4 HOURS PRN, Starting on 05/28/22 at 1928, Until Sun06/04/22 at 1339, Mild pain or more severe pain if patient requests, Fever, If patient is taking oral intake without complications and both PO/W[place] orders are active, administer through the oral route. Given 05/30/2022 8:16 PM CDT 650 mg Given 05/30/2022 8:47 AM CDT 650 mg Given 05/30/2022 4:49 AM CDT 650 mg albuterol (PROVENTIL HFA, VENTOLIN HFA) inhaler 2 Puff 2 Puff, Inhalation, EVERY 4 HOURS PRN, Starting on Sun05/29/22 at 0447, Until Sun06/04/22 at 1339, Shortness of Breath, For disposal - Place in Purple Disposal Bin or bag and return to PharmacyIndications:COVID-19,Moderate COPD (chronic obstructive pulmonary disease) (HCC) Given 05/30/2022 7:47 AM CDT 2 Puffs Given 05/29/2022 1:13 PM CDT 2 Puffs budesonide-formoterol fumarate (SYMBICORT) 160-4.5 MCG/ACT inhaler AERO 2 Puff 2 Puff, Inhalation, 2 TIMES DAILY, First dose on Sun05/28/22 at 2130, Until Discontinued Given 06/04/2022 8:24 AM CDT 2 Puffs Given 06/03/2022 8:07 PM CDT 2 Puffs Given 06/03/2022 8:01 AM CDT 2 Puffs citalopram (CeleXA) tablet 20 mg 20 mg, Oral, DAILY, First dose on Sun05/29/22 at 0900, Until Discontinued Given 06/04/2022 8:09 AM CDT 20 mg Given 06/03/2022 8:07 AM CDT 20 mg Given 06/02/2022 8:01 AM CDT 20 mg clonazePAM (KlonoPIN) tablet 1 mg 1 mg, Oral, NIGHTLY, First dose on Sun05/28/22 at 2130, Until Discontinued Given 05/30/2022 8:16 PM CDT 1 mg Given 05/29/2022 9:16 PM CDT 1 mg Given 05/28/2022 11:00 PM CDT 1 mg dexamethasone (DECADRON) injection 10 mg 10 mg, Intravenous, EVERY 12 HOURS, First dose on Sun05/31/22 at 1100, Until Discontinued Given 06/01/2022 11:43 AM CDT 10 mg Given 05/31/2022 11:30 PM CDT 10 mg Given 05/31/2022 12:39 PM CDT 10 mg dexamethasone (DECADRON) injection 6 mg 6 mg, Intravenous, EVERY 12 HOURS, First dose (after last modification) on Sun06/01/22 at 2300, Until Discontinued Given 06/03/2022 11:00 AM CDT 6 mg Given 06/02/2022 10:17 PM CDT 6 mg Given 06/02/2022 12:47 PM CDT 6 mg dexamethasone (DECADRON) tablet 6 mg 6 mg, Oral, DAILY, 9 doses, First dose on Sun05/29/22 at 0900, Last dose on Sun06/06/22 at 0900 Given 05/30/2022 8:47 AM CDT 6 mg Given 05/29/2022 9:16 AM CDT 6 mg dexamethasone (DECADRON) tablet 6 mg 6 mg, Oral, DAILY WITH BREAKFAST, First dose on Sun06/04/22 at 0800, Until Discontinued Given 06/04/2022 8:09 AM CDT 6 mg DEXAMETHASONE SODIUM PHOSPHATE 10 MG/ML IJ SOLN 1 dose, Starting on Sun05/28/22 at 1100, Until Sun05/28/22 at 1105, Created by cabinet override Given 05/28/2022 11:05 AM CDT 10 mg dextrose 50 % solution 12.5 g 12.5 g, Intravenous, PRN, Starting on Sun06/02/22 at 1622, Until Sun06/04/22 at 1339, Low blood sugar, If IV patent in patient with blood glucose of 50 or less, or Unconscious, Conscious but NPO or Unable to Swallow regardless of blood glucose, administer 1 dose of dextrose 50% solution. enoxaparin (LOVENOX) injection 40 mg 40 mg, Subcutaneous, NIGHTLY, First dose on Sun05/28/22 at 2100, Until DiscontinuedIndications:Prophylaxis of Venous Thromboembolism Given 06/03/2022 8:42 PM CDT 40 mg Left Abdomen Given 06/02/2022 8:18 PM CDT 40 mg Ri ght Abdomen Given 06/01/2022 8:59 PM CDT 40 mg Le ft Abdomen fluticasone (FLONASE) nasal spray 2 Rolla 2 Rolla, Nasal, DAILY, First dose on Margarita 06/01/22 at 0930, Until Discontinued, Dose is for each nostril. Given 06/04/2022 9:00 AM CDT 2 Sprays Given 06/03/2022 9:00 AM CDT 2 Sprays Given 06/02/2022 9:00 AM CDT 2 Sprays furosemide (LASIX) injection 20 mg 20 mg, Intravenous, ONCE, 1 dose, On Tu05/30/22 at 1000 Given 05/30/2022 10:37 AM CDT 20 mg glucagon injection SOLR 1 mg 1 mg, Intramuscular, PRN, Starting on Sun06/02/22 at 1622, Until Sun06/04/22 at 1339, Low blood sugar, If patient has no intravenous access and blood glucose of 50 or less, or Unconscious, Conscious but NPO or Unable to Swallow regardless of blood glucose administer 1 dose of glucagon. Glucagon may cause vomiting. Position patient on the side. glucagon injection SOLR 1 mg 1 mg, Subcutaneous, PRN, Starting on Sun06/02/22 at 1622, Until Sun06/04/22 at 1339, Low blood sugar, If patient has no intravenous access and blood glucose of 50 or less, or Unconscious, Conscious but NPO or Unable to Swallow regardless of blood glucose administer 1 dose of glucagon. Glucagon may cause vomiting. Position patient on the side. glucose (INSTA-GLUCOSE) 77.4 % gel 15 g 15 g, Oral, PRN, Starting on Sun06/02/22 at 1622, Until Sun06/04/22 at 1339, Low blood sugar, Dose is based on glucose. 37.5 g tube = 15 GRAMS of GLUCOSE. For 15 GRAM GLUCOSE dose, give entire 37.5 g size tube. Administer 1 dose if patient is unable to take food, but conscious and able to swallow. insulin lispro (HumaLOG) 100 UNIT/ML injection 2-12 Units 2-12 Units, Subcutaneous, 4 TIMES DAILY WITH MEALS & NIGHTLY, First dose on Sun06/02/22 at 1700, Until Discontinued, MILD SLIDING SCALE If BS is: [70-180, give no correction Insulin] [181-200, give 2 Units] [201-250, give 4 Units] [251-300, give 6 Units] [301-350, give 8 Units] [351-400, give 10 Units] [Greater than 400, give 12 Units and call physician] iopamidol (ISOVUE-370) 76 % injection 100 mL 100 mL, Intravenous, ONCE, 1 dose, On Sun05/28/22 at 1200 Given 05/28/2022 11:53 AM CDT 100 mL iopamidol (ISOVUE-370) 76 % injection 100 mL 100 mL, Intravenous, ONCE, 1 dose, On Sun06/02/22 at 1230 Given 06/02/2022 12:20 PM CDT 100 mL ipratropium-albuterol (COMBIVENT RESPIMAT) 20-100 MCG/ACT inhaler 2 Puff 2 Puff, Inhalation, ONCE, 1 dose, On Sun05/28/22 at 1100, For disposal - Place in Purple Disposal Bin or bag and return to Pharmacy Given 05/28/2022 10:54 AM CDT 2 Puffs ipratropium-albuterol (COMBIVENT RESPIMAT) 20-100 MCG/ACT inhaler 2 Puff 2 Puff, Inhalation, 4 TIMES DAILY, First dose on Sun05/31/22 at 1200, Until Discontinued, For disposal - Place in Purple Disposal Bin or bag and return to PharmacyIndications:COVID-19 Given 06/04/2022 8:24 AM CDT 2 Puffs Given 06/03/2022 8:07 PM CDT 2 Puffs Given 06/03/2022 3:46 PM CDT 2 Puffs magnesium hydroxide (MILK OF MAGNESIA) 400 MG/5ML suspension 30 mL 30 mL, Oral, DAILY PRN, Starting on Sun05/28/22 at 1925, Until Sun06/04/22 at 1339, Constipation - 3rd line, Magnesium hydroxide 400 mg/5 ml = 166.7 mg elemental magnesium/5ml. Hold for loose stools (loose, liquid, mucoid, soft, watery stool that takes the shape of the container) or greater than 2 moderate or larger stools in 24hrsIndications:Constipation melatonin tablet 6 mg 6 mg, Oral, NIGHTLY PRN, Starting on Sun05/28/22 at 1925, Until Sun06/04/22 at 1339, Other, Sleep Given 05/30/2022 8:16 PM CDT 6 mg nicotine (NICODERM CQ) 21 MG/24HR patch 1 Patch 1 Patch, Transdermal, DAILY PRN, Starting on Sun05/28/22 at 1925, Until Sun06/04/22 at 1339, Administer over 24 Hours, Other, Nicotine dependency ondansetron (ZOFRAN) injection 4 mg 4 mg, Intravenous, EVERY 6 HOURS PRN, Starting on Sun05/28/22 at 1925, Until Sun06/04/22 at 1339, Nausea - 1st line, 1. First Line Antiemetic. 2. Use Injection only if patient unable to tolerate oral medications. ondansetron (ZOFRAN-ODT) disintegrating tablet 4 mg 4 mg, Oral, EVERY 6 HOURS PRN, Starting on Sun05/28/22 at 1925, Until Sun06/04/22 at 1339, Nausea - 1st line, 1. First Line Antiemetic. 2. Use PO form unless unable to tolerate PO medications, then use Injection pantoprazole (PROTONIX) tablet 40 mg 40 mg, Oral, DAILY, First dose on Sun05/29/22 at 0900, Until Discontinued, Indications: Symptomatic Gastroesophageal Reflux DiseaseIndications:Symptomatic Gastroesophageal Reflux Disease Given 06/04/2022 8:09 AM CDT 40 mg Given 06/03/2022 8:07 AM CDT 40 mg Given 06/02/2022 8:01 AM CDT 40 mg polyethylene glycol (GLYCOLAX, MIRALAX) packet 17 g 17 g, Oral, 2 TIMES DAILY PRN, Starting on Sun05/28/22 at 1925, Until Sun06/04/22 at 1339, Constipation - 1st line, Dilute dose in 120 - 240 mL of beverage.Hold for loose stools (loose, liquid, mucoid, soft, watery stool that takes the shape of the container) or greater than 2 moderate or larger stools in 24hrsIndications:Constipation pramipexole (MIRAPEX) tablet 1.5 mg 1.5 mg, Oral, 2 TIMES DAILY, First dose on Sun05/28/22 at 2300, Until Discontinued Given 06/04/2022 8:09 AM CDT 1.5 mg Given 06/03/2022 8:41 PM CDT 1.5 mg Given 06/03/2022 8:06 AM CDT 1.5 mg primidone (MYSOLINE) tablet 250 mg 250 mg, Oral, DAILY, First dose on Sun05/29/22 at 0900, Until Discontinued Given 06/04/2022 8:09 AM CDT 250 mg Given 06/03/2022 8:07 AM CDT 250 mg Given 06/02/2022 8:01 AM CDT 250 mg propranolol (INDERAL LA) SR capsule 60 mg 60 mg, Oral, 2 TIMES DAILY, First dose on Sun05/28/22 at 2130, Until Discontinued, Do not crush. Given 06/04/2022 8:09 AM CDT 60 mg Given 06/03/2022 8:41 PM CDT 60 mg Given 06/03/2022 8:07 AM CDT 60 mg Remdesivir 100 mg in 0.9 % sodium chloride 270 mL Total Volume IVPB 100 mg, Intravenous, EVERY 24 HOURS, 4 doses, First dose on Sun05/29/22 at 0900, Last dose on Sun06/01/22 at 0900, Administer over 120 Minutes, After infusion is complete, flush with at least 30 mL of 0.9% sodium chloride., at 135 mL/hr New Bag 06/01/2022 9:15 AM CDT 100 mg 135 mL/hr New Bag 05/31/2022 12:38 PM CDT 100 mg 135 mL/hr New Bag 05/30/2022 10:37 AM CDT 100 mg 135 mL/hr Remdesivir 200 mg in 0.9 % sodium chloride 290 mL Total Volume IVPB 200 mg, Intravenous, ONCE, 1 dose, On Sun05/28/22 at 1330, Administer over 120 Minutes, After infusion is complete, flush with at least 30 mL of 0.9% sodium chloride., at 145 mL/hr New Bag 05/28/2022 2:46 PM CDT 200 mg 145 mL/hr rosuvastatin (CRESTOR) tablet 10 mg 10 mg, Oral, NIGHTLY, First dose on Sun05/29/22 at 2100, Until Discontinued Given 06/03/2022 8:41 PM CDT 10 mg Given 06/02/2022 8:18 PM CDT 10 mg Given 06/01/2022 8:59 PM CDT 10 mg senna (SENOKOT) tablet 8.6 mg 8.6 mg (1 Tablet), Oral, 2 TIMES DAILY PRN, Starting on Sun05/28/22 at 1925, Until Sun06/04/22 at 1339, Constipation - 2nd line Given 06/04/2022 8:09 AM CDT 8.6 mg sodium chloride (OCEAN) 0.65 % nasal spray 2 Rolla 2 Rolla, Nasal, PRN, Starting on Sun06/01/22 at 0852, Until Sun06/04/22 at 1339, Congestion Given 06/01/2022 10:17 AM CDT 2 Sprays TRANSDERMAL PATCH ACKNOWLEDGEMENT Miscellaneous, DAILY, First dose on Sun05/28/22 at 2000, Until Discontinued, This order is a communication order only. The patient has a nicotine transdermal patch. Please use the Acknowledged' MAR action when documenting on the MAR. documented in this encounter Active and Recently Administered Medications Times are shown in CDT. Scheduled Medication Order 06/02/2022 06/03/2022 06/04/2022 budesonide-formoterol fumarate (SYMBICORT) 160-4.5 MCG/ACT inhaler AERO 2 Puff 2 Puff, Inhalation, 2 TIMES DAILY, First dose on Sun05/28/22 at 2130, Until Discontinued 07 (Given - Provider: Tati Dunbar, TRANSMISSION TECHNICIAN)2058 (Given - Provider: Rickey Mon, TRANSMISSION TECHNICIAN) 08 (Given - Provider: Erin East, TRANSMISSION TECHNICIAN)2006 (Given - Provider: Tati Dunbar, TRANSMISSION TECHNICIAN) 0824 (Given - Provider: Lauryn Quiroz, MEDIA SALES REPRESENTATIVE) citalopram (CeleXA) tablet 20 mg 20 mg, Oral, DAILY, First dose on Sun05/29/22 at 0900, Until Discontinued 0801 (Given - Provider: Amanda Bowles RN) 0807 (Given - Provider: Amanda Bowles RN) 0809 (Given - Provider: Amanda Bowles RN) dexamethasone (DECADRON) injection 6 mg (CANCELED) 6 mg, Intravenous, EVERY 12 HOURS, First dose (after last modification) on Sun06/01/22 at 2300, Until Discontinued 1247 (Given - Provider: Amanda Bowles RN)2217 (Given - Provider: Ho Perez RN) 1100 (Given - Provider: Amanda Bowles RN) dexamethasone (DECADRON) tablet 6 mg 6 mg, Oral, DAILY WITH BREAKFAST, First dose on Sun06/04/22 at 0800, Until Discontinued 0809 (Given - Provider: Amnada Bowles RN) enoxaparin (LOVENOX) injection 40 mg 40 mg, Subcutaneous, NIGHTLY, First dose on Sun05/28/22 at 2100, Until Discontinued 2017 (Given - Provider: Erin Rey RN) 2041 (Given - Provider: Nkechi Franco RN) fluticasone (FLONASE) nasal spray 2 Rolla 2 Rolla, Nasal, DAILY, First dose on Sun06/01/22 at 0930, Until Discontinued, Dose is for each nostril. 0900 (Given - Provider: Amanda Bowles RN) 09 (Given - Provider: Amanda Bowles RN) 09 (Given - Provider: Amanda Bowles RN) insulin lispro (HumaLOG) 100 UNIT/ML injection 2-12 Units 2-12 Units, Subcutaneous, 4 TIMES DAILY WITH MEALS & NIGHTLY, First dose on Sun06/02/22 at 1700, Until Discontinued, MILD SLIDING SCALE If BS is: [70-180, give no correction Insulin] [181-200, give 2 Units] [201-250, give 4 Units] [251-300, give 6 Units] [301-350, give 8 Units] [351-400, give 10 Units] [Greater than 400, give 12 Units and call physician] 1700 (Not Given - Provider: Amanda Bowles RN - Reason: Order parameters not met)2100 (Not Given - Provider: Erin Rey RN - Reason: Order parameters not met) 0800 (Not Given - Provider: Amanda Bowles RN - Reason: Order parameters not met)1200 (Not Given - Provider: Amanda Bowles RN - Reason: Order parameters not met)1700 (Not Given - Provider: Amanda Bowles RN - Reason: Order parameters not met)2100 (Not Given - Provider: Nkechi Franco RN - Reason: Order parameters not met) 0800 (Not Given - Provider: Amanda Bowles RN - Reason: Order parameters not met) iopamidol (ISOVUE-370) 76 % injection 100 mL (COMPLETED) 100 mL, Intravenous, ONCE, 1 dose, On Sun06/02/22 at 1230 1220 (Given - Provider: Mariaelena Arellano, RT(R) (CT)) ipratropium-albuterol (COMBIVENT RESPIMAT) 20-100 MCG/ACT inhaler 2 Puff 2 Puff, Inhalation, 4 TIMES DAILY, First dose on Sun05/31/22 at 1200, Until Discontinued, For disposal - Place in Purple Disposal Bin or bag and return to Pharmacy 0746 (Given - Provider: Tati Dunbar, TRANSMISSION TECHNICIAN)1108 (Given - Provider: Miriam Zhu, TRANSMISSION TECHNICIAN)1601 (Given - Provider: Tati Dunbar, TRANSMISSION TECHNICIAN)2058 (Given - Provider: Rickey Mon, TRANSMISSION TECHNICIAN) 08 (Given - Provider: Erin East, TRANSMISSION TECHNICIAN)1136 (Given - Provider: Erin East, TRANSMISSION TECHNICIAN)1546 (Given - Provider: Erin East, TRANSMISSION TECHNICIAN)2006 (Given - Provider: Tati Dunbar, TRANSMISSION TECHNICIAN) 0824 (Given - Provider: Lauryn Quiroz, MEDIA SALES REPRESENTATIVE)1100 (Due) pantoprazole (PROTONIX) tablet 40 mg 40 mg, Oral, DAILY, First dose on Sun05/29/22 at 0900, Until Discontinued, Indications: Symptomatic Gastroesophageal Reflux Disease 08 (Given - Provider: Amanda Bowles RN) 08 (Given - Provider: Amanda Bowles RN) 08 (Given - Provider: Amanda Bowles RN) pramipexole (MIRAPEX) tablet 1.5 mg 1.5 mg, Oral, 2 TIMES DAILY, First dose on Sun05/28/22 at 2300, Until Discontinued 08 (Given - Provider: Amanda Bowles RN)2017 (Given - Provider: Erin Rey RN) 08 (Given - Provider: Amanda Bowles RN)2040 (Given - Provider: Nkechi Franco RN) 08 (Given - Provider: Amanda Bowles RN) primidone (MYSOLINE) tablet 250 mg 250 mg, Oral, DAILY, First dose on Sun05/29/22 at 0900, Until Discontinued 08 (Given - Provider: Amanda Bowles RN) 08 (Given - Provider: Amanda Bowles RN) 08 (Given - Provider: Amanda Bowles RN) propranolol (INDERAL LA) SR capsule 60 mg 60 mg, Oral, 2 TIMES DAILY, First dose on 05/28/22 at 2130, Until Discontinued, Do not crush. 08 (Given - Provider: Amanda Bowles RN)2017 (Given - Provider: Erin Rey, BORIS) 08 (Given - Provider: Amanda Bowles, BORIS)2040 (Given - Provider: Nkechi Franco, BORIS) 08 (Given - Provider: Amanda Bowles RN) rosuvastatin (CRESTOR) tablet 10 mg 10 mg, Oral, NIGHTLY, First dose on Sun05/29/22 at 2100, Until Discontinued 2017 (Given - Provider: Erin Rey RN) 2040 (Given - Provider: Nkechi Franco RN) TRANSDERMAL PATCH ACKNOWLEDGEMENT Miscellaneous, DAILY, First dose on 05/28/22 at 2000, Until Discontinued, This order is a communication order only. The patient has a nicotine transdermal patch. Please use the Acknowledged' JAN action when documenting on the MAR. 0900 (Acknowledged - Provider: mAanda Bowles RN) 0900 (Acknowledged - Provider: Amanda Bowles RN) 0900 (Acknowledged - Provider: Amanda Bowles RN) PRN Medication Order 06/02/2022 06/03/2022 06/04/2022 acetaminophen (TYLENOL) suppository 650 mg(Linked Group 1) 650 mg, Rectal, EVERY 4 HOURS PRN, Starting on 05/28/22 at 1928, Until 06/04/22 at 1339, Mild pain or more severe pain if patient requests, Fever, If patient is taking oral intake without complications and both PO/WY orders are active, administer through the oral route. acetaminophen (TYLENOL) tablet 650 mg(Linked Group 1) 650 mg, Oral, EVERY 4 HOURS PRN, Starting on 05/28/22 at 1928, Until 06/04/22 at 1339, Mild pain or more severe pain if patient requests, Fever, If patient is taking oral intake without complications and both PO/WY orders are active, administer through the oral route. albuterol (PROVENTIL HFA, VENTOLIN HFA) inhaler 2 Puff 2 Puff, Inhalation, EVERY 4 HOURS PRN, Starting on Sun05/29/22 at 0447, Until Sun06/04/22 at 1339, Shortness of Breath, For disposal - Place in Purple Disposal Bin or bag and return to Pharmacy dextrose 50 % solution 12.5 g(Linked Group 2) 12.5 g, Intravenous, PRN, Starting on Sun06/02/22 at 1622, Until Sun06/04/22 at 1339, Low blood sugar, If IV patent in patient with blood glucose of 50 or less, or Unconscious, Conscious but NPO or Unable to Swallow regardless of blood glucose, administer 1 dose of dextrose 50% solution. glucagon injection SOLR 1 mg(Linked Group 2) 1 mg, Intramuscular, PRN, Starting on Sun06/02/22 at 1622, Until Sun06/04/22 at 1339, Low blood sugar, If patient has no intravenous access and blood glucose of 50 or less, or Unconscious, Conscious but NPO or Unable to Swallow regardless of blood glucose administer 1 dose of glucagon. Glucagon may cause vomiting. Position patient on the side. glucagon injection SOLR 1 mg(Linked Group 2) 1 mg, Subcutaneous, PRN, Starting on Sun06/02/22 at 1622, Until Sun06/04/22 at 1339, Low blood sugar, If patient has no intravenous access and blood glucose of 50 or less, or Unconscious, Conscious but NPO or Unable to Swallow regardless of blood glucose administer 1 dose of glucagon. Glucagon may cause vomiting. Position patient on the side. glucose (INSTA-GLUCOSE) 77.4 % gel 15 g(Linked Group 2) 15 g, Oral, PRN, Starting on Sun06/02/22 at 1622, Until Sun06/04/22 at 1339, Low blood sugar, Dose is based on glucose. 37.5 g tube = 15 GRAMS of GLUCOSE. For 15 GRAM GLUCOSE dose, give entire 37.5 g size tube. Administer 1 dose if patient is unable to take food, but conscious and able to swallow. magnesium hydroxide (MILK OF MAGNESIA) 400 MG/5ML suspension 30 mL 30 mL, Oral, DAILY PRN, Starting on Sun05/28/22 at 1925, Until Sun06/04/22 at 1339, Constipation - 3rd line, Magnesium hydroxide 400 mg/5 ml = 166.7 mg elemental magnesium/5ml. Hold for loose stools (loose, liquid, mucoid, soft, watery stool that takes the shape of the container) or greater than 2 moderate or larger stools in 24hrs melatonin tablet 6 mg 6 mg, Oral, NIGHTLY PRN, Starting on 05/28/22 at 1925, Until 06/04/22 at 1339, Other, Sleep nicotine (NICODERM CQ) 21 MG/24HR patch 1 Patch 1 Patch, Transdermal, DAILY PRN, Starting on 05/28/22 at 1925, Until 06/04/22 at 1339, Administer over 24 Hours, Other, Nicotine dependency ondansetron (ZOFRAN) injection 4 mg(Linked Group 3) 4 mg, Intravenous, EVERY 6 HOURS PRN, Starting on 05/28/22 at 1925, Until 06/04/22 at 1339, Nausea - 1st line, 1. First Line Antiemetic. 2. Use Injection only if patient unable to tolerate oral medications. ondansetron (ZOFRAN-ODT) disintegrating tablet 4 mg(Linked Group 3) 4 mg, Oral, EVERY 6 HOURS PRN, Starting on 05/28/22 at 1925, Until 06/04/22 at 1339, Nausea - 1st line, 1. First Line Antiemetic. 2. Use PO form unless unable to tolerate PO medications, then use Injection polyethylene glycol (GLYCOLAX, MIRALAX) packet 17 g 17 g, Oral, 2 TIMES DAILY PRN, Starting on 05/28/22 at 1925, Until 06/04/22 at 1339, Constipation - 1st line, Dilute dose in 120 - 240 mL of beverage.Hold for loose stools (loose, liquid, mucoid, soft, watery stool that takes the shape of the container) or greater than 2 moderate or larger stools in 24hrs senna (SENOKOT) tablet 8.6 mg 8.6 mg (1 Tablet), Oral, 2 TIMES DAILY PRN, Starting on 05/28/22 at 1925, Until 06/04/22 at 1339, Constipation - 2nd line 0809 (Given - Provid er: Amanda Bowles RN) sodium chloride (OCEAN) 0.65 % nasal spray 2 Rolla 2 Rolla, Nasal, PRN, Starting on [facility] 06/01/22 at 0852, Until 06/04/22 at 1339, Congestion Linked Groups Order Group 1: acetaminophen (TYLENOL) tablet 650 mgJump to med 650 mg, Oral, EVERY 4 HOURS PRN, Starting on Sun05/28/22 at 1928, Until Sun06/04/22 at 1339, Mild pain or more severe pain if patient requests, Fever, If patient is taking oral intake without complications and both PO/WY orders are active, administer through the oral route. Or acetaminophen (TYLENOL) suppository 650 mgJump to med 650 mg, Rectal, EVERY 4 HOURS PRN, Starting on Sun05/28/22 at 1928, Until Sun06/04/22 at 1339, Mild pain or more severe pain if patient requests, Fever, If patient is taking oral intake without complications and both PO/WY orders are active, administer through the oral route. Group 2: glucose (INSTA-GLUCOSE) 77.4 % gel 15 gJump to med 15 g, Oral, PRN, Starting on Sun06/02/22 at 1622, Until Sun06/04/22 at 1339, Low blood sugar, Dose is based on glucose. 37.5 g tube = 15 GRAMS of GLUCOSE. For 15 GRAM GLUCOSE dose, give entire 37.5 g size tube. Administer 1 dose if patient is unable to take food, but conscious and able to swallow. Or dextrose 50 % solution 12.5 gJump to med 12.5 g, Intravenous, PRN, Starting on Sun06/02/22 at 1622, Until Sun06/04/22 at 1339, Low blood sugar, If IV patent in patient with blood glucose of 50 or less, or Unconscious, Conscious but NPO or Unable to Swallow regardless of blood glucose, administer 1 dose of dextrose 50% solution. Or glucagon injection SOLR 1 mgJump to med 1 mg, Intramuscular, PRN, Starting on Sun06/02/22 at 1622, Until Sun06/04/22 at 1339, Low blood sugar, If patient has no intravenous access and blood glucose of 50 or less, or Unconscious, Conscious but NPO or Unable to Swallow regardless of blood glucose administer 1 dose of glucagon. Glucagon may cause vomiting. Position patient on the side. Or glucagon injection SOLR 1 mgJump to med 1 mg, Subcutaneous, PRN, Starting on Sun06/02/22 at 1622, Until Sun06/04/22 at 1339, Low blood sugar, If patient has no intravenous access and blood glucose of 50 or less, or Unconscious, Conscious but NPO or Unable to Swallow regardless of blood glucose administer 1 dose of glucagon. Glucagon may cause vomiting. Position patient on the side. Group 3: ondansetron (ZOFRAN-ODT) disintegrating tablet 4 mgJump to med 4 mg, Oral, EVERY 6 HOURS PRN, Starting on 05/28/22 at 1925, Until 06/04/22 at 1339, Nausea - 1st line, 1. First Line Antiemetic. 2. Use PO form unless unable to tolerate PO medications, then use Injection Or ondansetron (ZOFRAN) injection 4 mgJump to med 4 mg, Intravenous, EVERY 6 HOURS PRN, Starting on 05/28/22 at 1925, Until 06/04/22 at 1339, Nausea - 1st line, 1. First Line Antiemetic. 2. Use Injection only if patient unable to tolerate oral medications. documented in this encounter Additional Health Concerns Infection Onset Date Last Indicated Resolved Time COVID - 19 05/28/2022 05/28/2022 05/28/2022 12:1 7 PM CDT COVID - 19 Confirmed 05/28/2022 05/28/2022 022 12:16 AM CDT COVID - 19 05/28/2022 05/28/2022 05/29/2022 1:01 PM CDT documented as of this encounter Care Teams Ror Engineer Relationship Specialty Start Date End Date Lyla Perry MD [address] [place] [address] PCP - General Family Medicine 01/25/18 Adeel Covarrubias MD [address] [place] [address] Consulting Physician Neurology 03/07/22 documented as of this encounter
--- OUTSIDE RECORDS SUMMARY | 2024-11-23 15:07 | XMS_ITS | Encounter Summary ---
Author Organization [facility] Address [address] [place] [address] Phone Care Team Providers Care Press Department Manager Name Role Phone Watson Perry MD Primary Care Provider [phone] Adeel Covarrubias MD Unavailable [phone] Encounter Details Date Type Department Care Team (Late Contact Info) Description 06/07/2022 Home Care Visit [facility] [address] [place], [place] [id number] Elinor Forman, PT [facility] NON-ADMIT Social History Tobacco Use Types Packs/Day Years Used Date Smoking Tobacco: Every Day Cigarettes 0.3 47 Started: [birth year]/19/1977 Smokeless Tobacco: Never Alcohol Use Standard Drinks/Week Comments No 0 (1 standard drink = 0.6 oz pur e alcohol) Sexually Active Control Partners Comments Yes Comments No Sex and Gender Information Value Date Recorded Sex Assigned at Not on file Legal Sex Female 9:54 AM NEUROLOGY EPILEPSY PHYSICIAN Gender Identity Not on file Sexual Orientation Not on file COVID-19 Exposure Response Date Recorded In the last 10 days, have yo u been in contact with someone who was confirmed or suspected to have Coronavirus/COVID-19? Yes 05/28/2022 9:23 AM CDT documented as of this encounter Plan of Treatment Upcoming Encounters Date Type Department Care Team (Late Contact Info) Description 12/18/2024 2:15 PM NEUROLOGY EPILEPSY PHYSICIAN Office Visit [facility] - [facility] [address] [place] [address] Adeel Covarrubias MD [address] [place] [address] documented as of this encounter Visit Diagnoses Not on filedocumented in this encounter Additional Health Concerns Infection Onset Date Last Indicated Resolved Time COVID - 19 Confirmed 05/28/2022 05/28/2022 022 12:16 AM CDT documented as of this encounter Care Teams Press Department Manager Relationship Specialty Start Date End Date Watson Perry MD [address] [place] [address] PCP - General Family Medicine 01/25/18 Adeel Covarrubias MD [address] [place] [address] Consulting Physician Neurology 03/07/22 documented as of this encounter
--- OUTSIDE RECORDS SUMMARY | 2024-11-23 15:07 | XMS_ITS | Encounter Summary ---
Author Organization [facility] Address [address] [place] [address] Phone Care Team Providers Care Gericare Aide Teacher Name Role Phone Watson Perry MD Primary Care Provider [phone] Adeel Covarrubias MD Unavailable Reason for Visit * Reason Comments Care Management Transition of Care Flores 1 Encounter Details Date Type Department Care Team (Late st Contact Info) Description 06/13/2022 Care Management [facility] [address] [place] [address] Miriam Low, RN Care Management; Transition of Care (Flores 1) Social History Tobacco Use Types Packs/Day Years Used Date Smoking Tobacco: Every Day Cigarettes 0.3 47 Started: 11/19/1977 Smokeless Tobacco: Never Alcohol Use Standard Drinks/Week Comments No 0 (1 standard drink = 0.6 oz pur e alcohol) Sexually Active Control Partners Comments Yes Comments No Sex and Gender Information Value Date Recorded Sex Assigned at Not on file Legal Sex Female 9:54 AM CARRIAGE SETTER Gender Identity Not on file Sexual Orientation Not on file COVID-19 Exposure Response Date Recorded In the last 10 days, have yo u been in contact with someone who was confirmed or suspected to have Coronavirus/COVID-19? Yes 05/28/2022 9:23 AM CDT documented as of this encounter Progress Notes * Miriam Low RN - 06/13/2022 1:11 PM CDT Care Management: Transition of Care - Follow up call-flores 1 Client's Current Condition: Called patient for flores follow up. Patient states she is doing well. She denies any shortness of breath, cough, fever, or chills. She states she continues to wear her oxyen. She did get her prednisoneand took as prescribed. She States she is taking her medication as prescribed. She states he completed f/u with pcp and cardiology Denies any issues at this time. States she is taking her medications as prescribed; no issues Does the patient live alone? No Caregiver: self DME: none Oxygen: Yes Medications: Did the patient steel pickler their medications from the pharmacy? Yes Is the patient compliant with the medication directions? States yes Did the patient need additional medication review today? n/a Does the patient have any unanswered questions about any medications? denies Transportation: No issues Follow Up Appointments: PCP: Patient states f/u completed documented in this encounter Plan of Treatment Upcoming Encounters Date Type Department Care Team (Late st Contact Info) Description 12/18/2024 2:15 PM CARRIAGE SETTER [facility] [address] [place] [address] Adeel Covarrubias MD [address] [place] [address] documented as of this encounter Visit Diagnoses Not on filedocumented in this encounter Additional Health Concerns Infection Onset Date Last Indicated Resolved Time COVID - 19 Confirmed 05/28/2022 05/28/2022 022 12:16 AM CDT documented as of this encounter Care Teams Gericare Aide Teacher Relationship Specialty Start Date End Date Watson Perry MD [address] [place] [address] PCP - General Family Medicine 01/25/18 Adeel Covarrubias MD [address] [place] [address] Consulting Physician Neurology 03/07/22 documented as of this encounter
--- OUTSIDE RECORDS SUMMARY | 2024-11-23 15:07 | XMS_ITS | Encounter Summary ---
Author Organization [facility] Address [address] [place] [address] Phone Care Team Providers Care Jig Operator Name Role Phone Watson Perry MD Primary Care Provider [phone] Adeel Covarrubias MD Unavailable [phone] Reason for Visit * Reason Comments Chest Congestion Encounter Details Date Type Department Care Team (Late st Contact Info) Description 05/28/2022 9:25 AM CDT [facility] [place] [address] [place] [address] Hayde Workman, NOEMY, SPIRAL TUBE WINDER HELPER [address] [place] [address] Chest congestion (Primary Dx) Discharge Disposition: Discharged to home or Selfcare Social History Tobacco Use Types Packs/Day Years Used Date Smoking Tobacco: Every Day Cigarettes 0.3 47 Started: 11/19/1977 Smokeless Tobacco: Never Tobacco Cessation:Ready to Q uit: No; Counseling Given: Yes Alcohol Use Standard Drinks/Week Comments No 0 (1 standard drink = 0.6 oz pur e alcohol) Sexually Active Control Partners Comments Yes Comments No Sex and Gender Information Value Date Recorded Sex Assigned at Not on file Legal Sex Female 9:54 AM VISITING NURSE Gender Identity Not on file Sexual Orientation Not on file COVID-19 Exposure Response Date Recorded In the last 10 days, have andressa palma been in contact with someone who was confirmed or suspected to have Coronavirus/COVID-19? Yes 05/28/2022 9:23 AM CDT documented as of this encounter Last Filed Vital Signs Vital Sign Reading Time Taken Comments Blood Pressure 110/60 05/28/2022 9:42 AM CDT Pulse 70 05/28/2022 9:42 AM CDT Temperature 36.6 ??C (97.8 ??F) 05/28/2022 9:42 AM CD T Respiratory Rate 18 05/28/2022 9:42 AM CDT Oxygen Saturation 86% 05/28/2022 9:42 AM CDT Inhaled Oxygen Concentration - - Weight 63.5 kg (140 lb) 05/28/2022 9:42 AM CDT Height 167.6 cm (5' 6 ) 05/28/2022 9:42 AM CDT Body Mass Index 22.6 05/28/2022 9:42 AM CDT documented in this encounter Progress Notes * Chica Chao RN - 05/28/2022 9:25 AM CDT Subjective Patient ID: Janeth Parker is a 72 y.o. female. Chief Complaint Patient presents with ??? Chest Congestion Pt states symptoms started on Sunday, Chest congestion, headache, fatigue. States was positive covid last week. Chest Congestion This is a new problem. The current episode started in the past 7 days. The problem occurs constantly. The problem has been gradually worsening. Associated symptoms include congestion, fatigue and headaches. Review of Systems Constitutional: Positive for fatigue. HENT: Positive for congestion. Neurological: Positive for headaches. Objective Physical Exam Assessment & Plan * Hayde Workman APRN, GUILLERMO - 05/28/2022 9:25 AM CDT Subjective: Janeth Parker is a 72 y.o. female in the clinic for a sick visit today. Patient was brought in by self and Historian for the visit is self Symptoms started in the last 4 days Patient/historian reports that the symptoms are worsening. OTC medication that has been taken/given include: naproxen She states that her had COVID last week. She has a history of COPD Chief complaint, ROS, and all history documented by ancillary staff, and any copy/pasted information were reviewed and verified, with additions or corrections, as appropriate. Available past family, social, medical history was reviewed. Review of Systems Constitutional: Positive for fatigue. HENT: Positive for congestion. Respiratory: Positive for cough, shortness of breath and wheezing. Objective: Physical Exam Vitals and nursing note reviewed. Constitutional: General: She is not in acute distress. HENT: Right Ear: Tympanic membrane and ear canal normal. Left Ear: Tympanic membrane and ear canal normal. Mouth/Throat: Pharynx: No posterior oropharyngeal erythema. Cardiovascular: Rate and Rhythm: Normal rate. Pulmonary: Effort: Pulmonary effort is normal. Breath sounds: Wheezing present. Neurological: Mental Status: She is alert. Vitals: 05/28/22 0942 BP: 110/60 BP Location: Right Arm BP Position: Sitting BP Cuff Size: Regular Pulse: 70 Resp: 18 Temp: 97.8 ??F (36.6 ??C) SpO2: (!) 86% Weight: 140 lb (63.5 kg) Height: 5' 6 (1.676 m) Xrays were obtained in clinic today. Radiology did review xrays and results were discussed with patient/patient family. Assessment and Plan See Diagnoses, Orders, Follow-up, and Instructions Diagnoses and all orders for this visit: Chest congestion - POCT SARS ANTIGEN LISSET - SARS-COV-2 BY MOLECULAR; Future - XR CHEST 2 VIEWS - SARS-COV-2 BY MOLECULAR due to patient presentation and vital signs it was determined that she be further evaluated at the ER today. Ambulance was offered but patient declined. will take her via personal car. ER was called and given report by RN in prompt care. AVS from today was printed, discussed with patient/family and given to patient/family documented in this encounter Plan of Treatment Upcoming Encounters Date Type Department Care Team (Late st Contact Info) Description 12/18/2024 2:15 PM VISITING NURSE Office Visit [facility] [address] [place] [address] Adeel Covarrubias MD [address] [place] [address] documented as of this encounter Procedures Procedure Name Priority Date/Time Associated Diagnosis Comments SARS-COV-2 BY MOLECULAR Routine 05/28/2022 10:25 AM CDT Chest congestion XR CHEST 2 VIEWS Stat with Interpretation 05/28/2022 10:10 AM CDT Chest congestion POCT SARS ANTIGEN LISSET Routine 05/28/2022 9:40 AM CDT Chest congestion documented in this encounter Results * (ABNORMAL) SARS-COV-2 BY MOLECULAR (05/28/2022 10:25 AM CDT) SARSCOV2 DETECTED( A) (Referenc e Range for this test is Not Detected) [facility] THERMOFISHER FAST DX 05/29/2022 1:19 PM CDT [facility] Comment:This test was perfor med by a RT-PCR method. Other NASAL STRUCTURE / Unknown Non-Phlebotomy Collection / Unknown 05/28/2022 10:25 AM CDT 05/28/2022 10:25 AM CDT Narrative [facility] - 05/29/2022 1:19 PM CDT Authorized Fact Sheets about this test for providers and patients are available at: https://www.fda.gov/medical-devices/wtlibysch-dzcxcjuiqn-jygljxm-devices/emergen -us e-authorizations us Hayde Workman NCR OPERATOR, SPIRAL TUBE WINDER HELPER MICROBIOLOGY - GE NERAL ORDERABLES Final Result [facility] [address] [place] [address], [place] * XR CHEST 2 VIEWS (05/28/2022 10:10 AM CDT) Anatomical Region Laterality Modality Chest N/A Digital Radiogra phy 05/28/2022 10:1 8 AM CDT Impressions 05/28/2022 10:21 AM CDT IMPRESSION: ?? No acute cardiopulmonary findings. Narrative 05/28/2022 10:21 AM CDT EXAM DESCRIPTION: ?? XR CHEST 2 VIEWS REASON FOR STUDY: ?? Cough, shortness of breath for 4 days. ??COPD, smoking history. TECHNIQUE: ?? Frontal ??and lateral radiographic views of the chest acquired. COMPARISON: ?? None available FINDINGS: LUNGS/PLEURA: ?? Right upper lobe calcified granuloma is noted. ??There is no pneumonic consolidation. ??No pulmonary edema. ?? No pleural effusion or pneumothorax. HEART/MEDIASTINUM: ?? Heart size is normal. Normal mediastinal and hilar contours. HARDWARE/LINES/TUBES: ?? None. BONES: ?? No acute findings. OTHER: ?? No other significant finding. THIS IS AN ELECTRONICALLY VERIFIED FINAL REPORT 05/28/2022 10:18 AM - Electronically signed by ??Marco Wallace M.D. MZ: KARL D: ??05/28/2022 10:18 AM T: ??05/28/2022 10:18 AM Report ID: [id number] Reading Location: ??[id number] Procedure Note Marco Wallace MD - 05/28/2022 EXAM DESCRIPTION: XR CHEST 2 VIEWS REASON FOR STUDY: Cough, shortness of breath for 4 days. COPD, smoking history. TECHNIQUE: Frontal and lateral radiographic views of the chest acquired. COMPARISON: None available FINDINGS: LUNGS/PLEURA: Right upper lobe calcified granuloma is noted. There is no pneumonic consolidation. No pulmonary edema. No pleural effusion or pneumothorax. HEART/MEDIASTINUM: Heart size is normal. Normal mediastinal and hilar contours. HARDWARE/LINES/TUBES: None. BONES: No acute findings. OTHER: No other significant finding. THIS IS AN ELECTRONICALLY VERIFIED FINAL REPORT 05/28/2022 10:18 AM - Electronically signed by Marco Wallace M.D. MZ: KARL Report ID: [id number] Reading Location: [id number] IMPRESSION: No acute cardiopulmonary findings. Hayde Workman APRN, CNP IMG DIAGNOSTIC OR DERABLES Final Result * POCT SARS ANTIGEN LISSET (05/28/2022 9:40 AM CDT) POC SARS ANTIGEN LISSET Negative Negative POC SARS ANTIGEN LISSET CONTROL Director Of Instructional Technology Pass Swab NASAL STRUCTURE / Unknown 05/28/2022 9:40 AM CDT Hayde Workman APRN, CNP POINT OF CARE RAGHU TING (MANUAL) Final Result documented in this encounter Visit Diagnoses Diagnosis Chest congestion- Primary Other symptoms involving respiratory system and chest documented in this encounter Care Teams Jig Operator Relationship Specialty Start Date End Date Watson Perry MD [address] [place] [address] PCP - General Family Medicine 01/25/18 Adeel Covarrubias MD [address] [place] [address] Consulting Physician Neurology 03/07/22 documented as of this encounter
--- OUTSIDE RECORDS SUMMARY | 2024-11-23 15:07 | XMS_ITS | Encounter Summary ---
Author Organization [facility] Address [address] [place] [address] Phone Care Team Providers Care Spray Blender Name Role Phone Watson Perry MD Primary Care Provider [phone] Adeel Covarrubias MD Unavailable [phone] Reason for Visit * Auth/Cert Specialty Diagnoses / Procedures Referred By Rhea t Referred To Contact Diagnoses Hypoxia COVID-19 Wayne Gomez MD [address] [place] [address] Phone: tel: fax: Referral ID Status Reason Start Date Expiration Date Visits Re quested Visits Authorized [id number] 1 1 Encounter Details Date Type Department Care Team (Late st Contact Info) Description 05/28/2022 10:03 AM CDT - 05/28/2022 10:33 AM CDT Hospital Encounter [facility] [place] [address] [place] [address] Hayde Workman APRN, WASTE HANDLING TECHNICIAN [address] [place] [address] Discharge Disposition: Discharged to home or Selfcare [...] on file Legal Sex Female 9:54 AM RESIDENT CARE TECHNICIAN Gender Identity Not on file Sexual Orientation Not on file COVID-19 Exposure Response Date Recorded In the last 10 days, have yo u been in contact with someone who was confirmed or suspected to have Coronavirus/COVID-19? Yes 05/28/2022 9:23 AM CDT documented as of this encounter Medications at [...] PO) Take 1 % by mouth daily. Olla-3 Fatty Acids (FISH OIL PO) Take 2 [...] 04/21/2022 2 documented as of this encounter Plan of Treatment Upcoming Encounters Date Type Department Care Team (Late st Contact Info) Description 12/18/2024 2:15 PM RESIDENT CARE TECHNICIAN Office Visit [facility] - Neurology [facility] [address] [place] [address] Adeel Covarurbias MD [address] [place] [address] documented as of this encounter Procedures Procedure Name Priority Date/Time Associated Diagnosis Comments XR CHEST 2 VIEWS Stat with Interpretation 05/28/2022 10:10 AM CDT Chest congestion documented in this encounter Results * XR CHEST 2 VIEWS (05/28/2022 10:10 [...] Electronically signed by ??Marco Wallace M.D. MZ: MZ D: ??05/28/2022 10:18 AM T: ??05/28/2022 10:18 AM Report ID: [id number] Reading Location: ??[id number] Procedure Note Marco Wallace MD - 05/28/2022 [...] Marco Wallace M.D. MZ: KARL Report ID: [id number] Reading Location: [id number] IMPRESSION: No acute cardiopulmonary findings. Hayde Workman APRN, WASTE HANDLING TECHNICIAN IMG DIAGNOSTIC OR DERABLES Final Result documented in this encounter Visit Diagnoses Not on filedocumented in this encounter Additional Health Concerns Infection Onset Date Last Indicated Resolved Time COVID - 19 05/28/2022 05/28/2022 05/28/2022 12:1 7 PM CDT documented as of this encounter Care Teams Spray Blender Relationship Specialty Start Date End Date Watson Perry MD [address] [place] [address] PCP - General Family Medicine 01/25/18 Adeel Covarrubias MD [address] [place] [address] Consulting Physician Neurology 03/07/22 documented as of this encounter
--- OUTSIDE RECORDS SUMMARY | 2024-11-23 15:07 | XMS_ITS | Encounter Summary ---
Author Organization [facility] Address [address] [place] [address] Phone Care Team Providers Care Medical Assistant Per Diem Name Role Phone Watson Perry MD Primary Care Provider [phone] Adeel Covarrubias MD Unavailable [phone] Reason for Visit * Reason Comments Medication Refill Encounter Details Date Type Department Care Team (Late st Contact Info) Description [facility] [address] [place] [address] Adeel Covarrubias MD [address] [place] [address] Medication Refill Social History Tobacco [...] on file Legal Sex Female 9:54 AM ENVIRONMENTAL COMPLIANCE INSPECTOR Gender Identity Not on file Sexual Orientation Not on file documented as of this encounter Plan of Treatment Upcoming Encounters Date Type Department Care Team (Late st Contact Info) Description 12/18/2024 2:15 PM ENVIRONMENTAL COMPLIANCE INSPECTOR [facility] [address] [place] [address] Adeel Covarrubias MD [address] [place] [address] documented as of this encounter Visit Diagnoses [...] documented as of this encounter Care Teams Medical Assistant Per Diem Relationship Specialty Start Date End Date Watson Perry MD [address] [place] [address] PCP - General Family Medicine 01/25/18 Adeel Covarrubias MD [address] [place] [address] Consulting Physician Neurology 03/07/22 documented as of this encounter
--- OUTSIDE RECORDS SUMMARY | 2024-11-23 15:07 | XMS_ITS | Encounter Summary ---
Author Organization [facility] Care Team Providers Care Water Truck Driver Name Role Phone Watson Perry MD Primary Care Provider [phone] Adeel Covarrubias MD Unavailable [phone] Encounter Details Date Type Department Care Team (Latest Contact Info) Description 03/07/2022 Travel Social History Tobacco Use Types Packs/Day [...] on file Legal Sex Female 9:54 AM HEAVY EQUIPMENT OPERATOR APPRENTICE Gender Identity Not on file Sexual Orientation [...] st Contact Info) Description 12/18/2024 2:15 PM HEAVY EQUIPMENT OPERATOR APPRENTICE Office Visit [facility] - Neurology [facility] [address] [place] [address] Adeel Covarrubias MD [address] [place] [address] documented as of this encounter Visit Diagnoses Not on filedocumented in this encounter Care Teams Water Truck Driver Relationship Specialty Start Date End Date Watson Perry MD [address] [place] [address] PCP - General Family Medicine 01/25/18 Adeel Covarrubias MD [address] [place] [address] Consulting Physician Neurology 03/07/22 documented as of this encounter
--- OUTSIDE RECORDS SUMMARY | 2024-11-23 15:07 | XMS_ITS | Encounter Summary ---
Author Organization [facility] Address [address] [place] [address] Phone Care Team Providers Care Card Game Operator Name Role Phone Watson ePrry MD Primary Care Provider [phone] Adeel Covarrubias MD Unavailable [phone] Reason for Referral * Radiology Services (Routine) - Closed Specialty Diagnoses / Procedures Referred By Contac t Referred To Contact Radiology Diagnoses Thyroid nodule Procedures US THYROID Julieta Fleming PAC [address] [place] [address] Phone: tel: fax: Referral ID Status Reason Start Date Expiration Date Visits Re quested Visits Authorized [id number] Closed 10/22/2023 1 1 E CUSTODIAN Reason for Visit * Radiology Services (Routine) - Closed Specialty Diagnoses / Procedures Referred By Contac t Referred To Contact Radiology Diagnoses Thyroid nodule Procedures US THYROID Julieta Fleming PAC [address] [place] [address] Phone: tel: fax: Referral ID Status Reason Start Date Expiration Date Visits Re quested Visits Authorized [id number] Closed 10/22/2023 1 1 Encounter Details Date Type Department Care Team (Latest Contact Info) Description 10/27/2023 10:30 AM STORE CUSTODIAN - 10/27/2023 11:59 PM STORE CUSTODIAN Hospital Encounter [facility] Ultrasound 1 [facility] [place] [address] Julieta Fleming, PAC [address] [place] [address] Discharge Disposition: Discharged to home or Selfcare [...] on file Legal Sex Female 9:54 AM STORE CUSTODIAN Gender Identity Not on file Sexual Orientation [...] IN) take 1 Puff by inhalation daily. furosemide (LASIX) 20 MG Tablet Take 20 mg by mouth daily. Glucose Blood Strip Diagnosis: Diabetes type 2 Blood testing frequency: 3 times a day 100 Strip 1 06/04/2022 Lancets Misc Use as directed 100 Lancet 1 06/04/2022 Multiple Vitamin (MULTIVITAMIN PO) Take 1 % by mouth daily. [place]-3 Fatty Acids (FISH OIL PO) Take 2 [...] tremor Take 1 Tablet by mouth daily. 90 Tablet 1 03/06/2023 4 documented as of this encounter Plan of Treatment Upcoming Encounters Date Type Department Care Team (Late st Contact Info) Description 12/18/2024 2:15 PM STORE CUSTODIAN [facility] [address] [place] [address] Adeel Covarrubias MD [address] [place] [address] documented as of this encounter Procedures Procedure Name Priority Date/Time Associated Diagnosis Comments US THYROID Routine 10/27/2023 11:14 AM STORE CUSTODIAN Thyroid nodule documented in this encounter Results * US THYROID (10/27/2023 11:14 AM STORE CUSTODIAN) Anatomical Region Laterality Modality BODY N/A Ultrasound 10/30/2023 5:54 AM STORE CUSTODIAN Impressions 10/30/2023 5:57 AM STORE CUSTODIAN IMPRESSION: 1.7 cm TR3 right thyroid nodule [...] greater FNA recommended. Narrative 10/30/2023 5:57 AM STORE CUSTODIAN EXAM DESCRIPTION: ?? US THYROID REASON FOR [...] AM T: ??10/30/2023 5:54 AM Report ID: [id number] Reading Location: ??[id number] Procedure Note Marco Wallace MD - 10/30/2023 [...] Marco Wallace M.D. MZ: KARL Report ID: [id number] Reading Location: [id number] IMPRESSION: 1.7 cm TR3 right thyroid nodule [...] in this encounter Visit Diagnoses Diagnosis Thyroid nodule Nontoxic uninodular goiter documented in this encounter Care Teams Card Game Operator Relationship Specialty Start Date End Date Watson Perry MD [address] [place] [address] PCP - General Family Medicine 01/25/18 Adeel Covarrubias MD [address] [place] [phone] Consulting Physician Neurology 03/07/22 documented as of this encounter
--- OUTSIDE RECORDS SUMMARY | 2024-11-23 15:07 | XMS_ITS | Encounter Summary ---
Author Organization [facility] [email or web address] Care Team Providers Care Shoe Ironer Name Role Phone Watson Perry MD Primary Care Provider [phone] Adeel Covarrubias MD Unavailable [phone] Encounter Details Date Type Department Care Team (Latest Contact Info) Description 08/30/2022 Travel Social History Tobacco Use Types Packs/Day [...] on file Legal Sex Female 9:54 AM HOME DEMONSTRATOR Gender Identity Not on file Sexual Orientation Not on file COVID-19 Exposure Response Date Recorded In the last 10 days, have yo u been in contact with someone who was confirmed or suspected to have Coronavirus/COVID-19? No / Unsure 08/30/2022 8:58 AM CDT documented as of this encounter Plan of Treatment Upcoming Encounters Date Type Department Care Team (Late st Contact Info) Description 12/18/2024 2:15 PM HOME DEMONSTRATOR Office Visit [facility] - Neurology [facility] [address] [place] [address] Adeel Covarrubias MD [address] [place] [address] documented as of this encounter Visit Diagnoses Not on filedocumented in this encounter Care Teams Shoe Ironer Relationship Specialty Start Date End Date Watson Perry MD [address] [place] [address] PCP - General Family Medicine 01/25/18 Adeel Covarrubias MD [address] [place] [phone] Consulting Physician Neurology 03/07/22 documented as of this encounter
--- OUTSIDE RECORDS SUMMARY | 2024-11-23 15:07 | XMS_ITS | Encounter Summary ---
Author Organization [facility] Address [address] [place] [address] Phone Care Team Providers Care Spanish Instructor Name Role Phone Watson Perry MD Primary Care Provider [phone] Adeel Covarrubias MD Unavailable [phone] Reason for Referral * Radiology Services (Routine) - Closed Specialty Diagnoses / Procedures Referred By Contac t Referred To Contact Radiology Diagnoses Other disorders of lung Procedures CT CHEST W/O CONTRAST Julieta Fleming PAC [address] [place] [address] Phone: tel: fax: Referral ID Status Reason Start Date Expiration Date Visits Re quested Visits Authorized [id number] Closed 07/28/2022 1 1 Reason for Visit * Radiology Services (Routine) - Closed Specialty Diagnoses / Procedures Referred By Contac t Referred To Contact Radiology Diagnoses Other disorders of lung Procedures CT CHEST W/O CONTRAST Julieta Fleming PAC [address] [place] [address] Phone: tel: fax: Referral ID Status Reason Start Date Expiration Date Visits Re quested Visits Authorized [id number] Closed 07/28/2022 1 1 Encounter Details Date Type Department Care Team (Latest Contact Info) Description 08/09/2022 8:41 AM CDT - 08/09/2022 11:59 PM CDT Hospital Encounter [facility] [address] [place] [address] Julieta Fleming, PAC [address] [place] [address] Discharge Disposition: Discharged to home or Selfcare [...] on file Legal Sex Female 9:54 AM TUGBOAT DISPATCHER Gender Identity Not on file Sexual Orientation [...] PO) Take 1 % by mouth daily. [place]-3 Fatty Acids (FISH OIL PO) Take 2 [...] 07/31/2022 3 documented as of this encounter Plan of Treatment Upcoming Encounters Date Type Department Care Team (Late st Contact Info) Description 12/18/2024 2:15 PM TUGBOAT DISPATCHER Office Visit [facility] Neurology [facility] [address] [place] [address] Adeel Covarrubias MD [address] [place] [address] documented as of this encounter Procedures Procedure Name Priority Date/Time Associated Diagnosis Comments CT CHEST W/O CONTRAST Routine 08/09/2022 9:11 AM CDT Other disorders of lung documented in this encounter Results * CT CHEST W/O CONTRAST (08/09/2022 9:11 AM CDT) Anatomical Region Laterality Modality Chest N/A Computed Tomogra phy 08/11/2022 6:56 AM CDT Impressions 08/11/2022 6:58 AM CDT IMPRESSION: ?? 1. ?? Progressive consolidation at the right lung base. ??This is concerning for an infectious or inflammatory process. 2. ?? Increased tree-in-bud opacities with associated bronchial wall thickening involving both lower lobes. ??Small cavitary nodule in the central left lower lobe. ??These findings also suggest an infectious or inflammatory process. ??Atypical infection, including non tuberculosis mycobacterium, is a consideration. 3. ?? Subsolid patchy/nodular opacity in the right upper lobe appears slightly increased. ??This could be a component of the above infectious/inflammatory process. ??However, an independent subsolid nodule is also a consideration. 4. ?? Mild background emphysema. 5. ?? 1.6 cm hypodense right thyroid lobe nodule, for which dedicated thyroid ultrasound is recommended. For all of the pulmonary findings, clinical correlation is needed. ?? Pulmonary consultation may be helpful. ??Follow-up CT in 6-8 weeks is recommended. Narrative 08/11/2022 6:58 AM CDT EXAM DESCRIPTION: ?? CT CHEST W/O CONTRAST REASON FOR STUDY: ?? Other disorders of lung. ??Consolidation in the right upper lobe on prior imaging, for which follow-up was recommended. TECHNIQUE: CT scan of the chest performed without intravenous contrast using helical scanning technique. Reconstructed coronal and sagittal MPR images reviewed. ??All images stored on PACS. ??Automated exposure control was used as a dose optimization technique for this examination. COMPARISON: ?? Chest CT examinations 05/28/2022 and 06/02/2022 FINDINGS: The sensitivity for detection of solid visceral lesions is diminished without the use of intravenous contrast. LUNGS/PLEURA: ?? There is new right base consolidation and associated tree-in-bud and nodular inflammatory infiltrate in the right lower lobe. ??Milder tree-in-bud opacities are present in the periphery of the left lower lobe. ??More central cavitary nodule (series 4, image 50) appears slightly more thick walled. ??Prior pleural effusions have resolved. ??A right upper lobe subsolid patchy/nodular opacity measures 1.7 x 1.1 cm (series 4, image 30), slightly increased. ??A ground-glass nodule in the periphery of the left upper lobe measuring 4 mm (series 4 image 49) is unchanged. ??Additional more ill-defined ground-glass opacities in the left upper lobe are slightly decreased. ??There are mild background emphysematous changes. ??There is bronchial wall thickening, with lower lobe predominance. ??No pneumothorax. MEDIASTINUM/WARREN: ?? Calcified granulomas in right hilar lymph nodes. No gross mediastinal lymphadenopathy. ??1.6 cm hypodense nodule in the right thyroid lobe. HEART: ?? Heart size is normal with no pericardial effusion. ?? Three-vessel coronary artery calcifications. VASCULATURE: ?? Nonaneurysmal thoracic aorta with moderate atherosclerosis, and conventional 3 vessel arch branching pattern. AXILLA: ?? No adenopathy. CHEST WALL: ?? No masses. ??No subcutaneous air. HARDWARE/LINES/TUBES: ?? None. UPPER ABDOMEN: ?? Small left lobe hepatic cyst. ??Splenic granulomas. ?? 1.5 cm left adrenal adenoma. MUSCULOSKELETAL: ?? No acute fracture. ??No suspicious lytic or sclerotic bone lesion. ??Mild multilevel degenerative disc disease. OTHER: ?? No other significant abnormality. THIS IS AN ELECTRONICALLY VERIFIED FINAL REPORT 08/11/2022 6:56 AM - Electronically signed by ??Shalom Camargo M.D. BC: KRISHNA D: ??08/11/2022 6:56 AM T: ??08/11/2022 6:56 AM Report ID: [id number] Reading Location: ??[id number] Procedure Note Shalom Camargo MD - 08/11/2022 EXAM DESCRIPTION: CT CHEST W/O CONTRAST REASON FOR STUDY: Other disorders of lung. Consolidation in the right upper lobe on prior imaging, for which follow-up was recommended. TECHNIQUE: CT scan of the chest performed without intravenous contrast using helical scanning technique. Reconstructed coronal and sagittal MPR images reviewed. All images stored on PACS. Automated exposure control was used as a dose optimization technique for this examination. COMPARISON: Chest CT examinations 05/28/2022 and 06/02/2022 FINDINGS: The sensitivity for detection of solid visceral lesions is diminished without the use of intravenous contrast. LUNGS/PLEURA: There is new right base consolidation and associated tree-in-bud and nodular inflammatory infiltrate in the right lower lobe. Milder tree-in-bud opacities are present in the periphery of the left lower lobe. More central cavitary nodule (series 4, image 50) appears slightly more thick walled. Prior pleural effusions have resolved. A right upper lobe subsolid patchy/nodular opacity measures 1.7 x 1.1 cm (series 4, image 30), slightly increased. A ground-glass nodule in the periphery of the left upper lobe measuring 4 mm (series 4 image 49) is unchanged. Additional more ill-defined ground-glass opacities in the left upper lobe are slightly decreased. There are mild background emphysematous changes. There is bronchial wall thickening, with lower lobe predominance. No pneumothorax. MEDIASTINUM/WARREN: Calcified granulomas in right hilar lymph nodes. No gross mediastinal lymphadenopathy. 1.6 cm hypodense nodule in the right thyroid lobe. HEART: Heart size is normal with no pericardial effusion. Three-vessel coronary artery calcifications. VASCULATURE: Nonaneurysmal thoracic aorta with moderate atherosclerosis, and conventional 3 vessel arch branching pattern. AXILLA: No adenopathy. CHEST WALL: No masses. No subcutaneous air. HARDWARE/LINES/TUBES: None. UPPER ABDOMEN: Small left lobe hepatic cyst. Splenic granulomas. 1.5 cm left adrenal adenoma. MUSCULOSKELETAL: No acute fracture. No suspicious lytic or sclerotic bone lesion. Mild multilevel degenerative disc disease. OTHER: No other significant abnormality. THIS IS AN ELECTRONICALLY VERIFIED FINAL REPORT 08/11/2022 6:56 AM - Electronically signed by Shalom Camargo M.D. BC: KRISHNA Report ID: [id number] Reading Location: [id number] IMPRESSION: 1. Progressive consolidation at the right lung base. This is concerning for an infectious or inflammatory process. 2. Increased tree-in-bud opacities with associated bronchial wall thickening involving both lower lobes. Small cavitary nodule in the central left lower lobe. These findings also suggest an infectious or inflammatory process. Atypical infection, including non tuberculosis mycobacterium, is a consideration. 3. Subsolid patchy/nodular opacity in the right upper lobe appears slightly increased. This could be a component of the above infectious/inflammatory process. However, an independent subsolid nodule is also a consideration. 4. Mild background emphysema. 5. 1.6 cm hypodense right thyroid lobe nodule, for which dedicated thyroid ultrasound is recommended. For all of the pulmonary findings, clinical correlation is needed. Pulmonary consultation may be helpful. Follow-up CT in 6-8 weeks is recommended. Julieta Fleming [facility] IMG CT ORDERABLES Final Res ult documented in this encounter Visit Diagnoses Diagnosis Other disorders of lung documented in this encounter Care Teams Spanish Instructor Relationship Specialty Start Date End Date Watson Perry MD NPI: [id number] [place] [address] PCP - General Family Medicine 01/25/18 Adeel Covarrubias MD [address] [place] [address] Consulting Physician Neurology 03/07/22 documented as of this encounter
--- OUTSIDE RECORDS SUMMARY | 2024-11-23 15:07 | XMS_ITS | Encounter Summary ---
Author Organization [facility] [employer] Care Team Providers Care Block Engraver Name Role Phone Watson Perry MD Primary Care Provider [phone] Adeel Covarrubias MD Unavailable [phone] Encounter Details Date Type Department Care Team (Latest Contact Info) Description 06/14/2022 Travel Social History Tobacco Use Types Packs/Day [...] on file Legal Sex Female 9:54 AM WASHER BLANKET Gender Identity Not on file Sexual Orientation Not on file COVID-19 Exposure Response Date Recorded In the last 10 days, have yo u been in contact with someone who was confirmed or suspected to have Coronavirus/COVID-19? No / Unsure 06/14/2022 7:43 AM CDT documented as of this encounter Plan of Treatment Upcoming Encounters Date Type Department Care Team (Late st Contact Info) Description 12/18/2024 2:15 PM WASHER BLANKET Office Visit [facility] - Neurology [facility] [address] [place] [address] Adeel Covarrubias MD [address] [place] [address] documented as of this encounter Visit Diagnoses Not on filedocumented in this encounter Additional Health Concerns Infection Onset Date Last Indicated Resolved Time COVID - 19 Confirmed 05/28/2022 05/28/2022 022 12:16 AM CDT documented as of this encounter Care Teams Block Engraver Relationship Specialty Start Date End Date Watson Perry MD [address] [place] [address] PCP - General Family Medicine 01/25/18 Adeel Covarrubias MD [address] [place] [phone] Consulting Physician Neurology 03/07/22 documented as of this encounter
--- OUTSIDE RECORDS SUMMARY | 2024-11-23 15:07 | XMS_ITS | Encounter Summary ---
Author Organization [facility] [employer] Care Team Providers Care Resident Engineer Name Role Phone Watson Perry MD Primary Care Provider [phone] Adeel Covarrubias MD Unavailable [phone] Encounter Details Date Type Department Care Team (Latest Contact Info) Description 03/06/2023 Travel Social History Tobacco Use Types Packs/Day [...] on file Legal Sex Female 9:54 AM TELEPHONE ASSEMBLER Gender Identity Not on file Sexual Orientation [...] st Contact Info) Description 12/18/2024 2:15 PM TELEPHONE ASSEMBLER Office Visit [facility] - [facility] [address] [place] [address] Adeel Covarrubias MD [address] [place] [address] documented as of this encounter Visit Diagnoses Not on filedocumented in this encounter Care Teams Resident Engineer Relationship Specialty Start Date End Date Watson Perry MD [address] [place] [address] PCP - General Family Medicine 01/25/18 Adeel Covarrubias MD [address] [place] [address] Consulting Physician Neurology 03/07/22 documented as of this encounter
--- OUTSIDE RECORDS SUMMARY | 2024-11-23 15:07 | XMS_ITS | Encounter Summary ---
Author Organization [facility] Address [address] [place] [address] Phone Care Team Providers Care Apprentice Jockey Name Role Phone Watson Coleman MD Primary Care Provider [phone] Reason for Visit * Reason Comments Tremors polyneuropathy * Consult, Test & Initiate Treatment (Routine) - Closed Specialty Diagnoses / Procedures Referred By Contac t Referred To Contact Neurology Diagnoses Polyneuropathy, unspecified Watson Coleman MD [address] [place] [address] Phone: tel: fax: Nicholas Covarrubias MD [address] [place] [address] Phone: tel: fax: Referral ID Status Reason Start Date Expiration Date Visits Re quested Visits Authorized [id number] Closed 1 12 Encounter Details Date Type Department Care Team (Late st Contact Info) Description 09/06/2021 9:00 AM CDT Office Visit [facility] - [facility] [address] [place] [address] Nicholas Covarrubias MD [address] [place] [address] Essential tremor (Primary Dx); Polyneuropathy; Restless leg syndrome Discharge Disposition: Discharged to [...] on file Legal Sex Female 9:54 AM DRY CELL ASSEMBLY 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 No / Unsure 09/06/2021 9:03 AM CDT documented as of this encounter Last Filed Vital Signs Vital Sign Reading Time Taken Comments Blood Pressure 108/70 09/06/2021 9:11 AM CDT Pulse 74 09/06/2021 9:11 AM CDT Temperature 35.7 ??C (96.3 ??F) 09/06/2021 9:11 AM CD T Respiratory Rate 16 09/06/2021 9:11 AM CDT Oxygen Saturation 96% 09/06/2021 9:11 AM CDT Inhaled Oxygen Concentration - - Weight 58.2 kg (128 lb 3.2 oz) 09/06/2021 9:11 A M CDT Height 165.1 cm (5' 5 ) 09/06/2021 9:11 AM CDT Body Mass Index 21.33 09/06/2021 9:11 AM CDT documented in this encounter Progress Notes * Nicholas Covarrubias MD - 09/06/2021 9:00 AM CDT NEUROLOGY CONSULT Assessment and Plan Janeth was seen today for tremors and polyneuropathy. Diagnoses and all orders for this visit: Essential tremor - continue primidone and propranolol - patient to consider the option of DBS surgery but does not feel that she is ready to go through with that at this time Polyneuropathy Restless leg syndrome Reason for Consultation: tremor HPI: Janeth has significant disability from essential tremor. She is currently on propranolol primidone and clonazepam with modest benefit. Prior History: Janeth is a 68-year-old female [...] by inhalation daily., Disp: , Rfl: ??? gabapentin (NEURONTIN) 300 MG Capsule, Take 1 Cap by mouth 2 times daily. (Patient not taking: Reported on 03/04/2021), Disp: 60 Cap, Rfl: 3 ??? Multiple Vitamin (MULTIVITAMIN PO), Take by mouth., Disp: , Rfl: ??? [place]-3 Fatty Acids (FISH OIL PO), Take by [...] , Rfl: ??? Vitamins/Minerals Tablet, Take by mouth., Disp: , Rfl: Review of Systems: A 14 point Review of Systems is obtained, and is negative other than that mentioned in the History of Present Illness. Objective: VITALS: Blood pressure 108/70, pulse 74, temperature (!) 96.3 ??F (35.7 ??C), temperature source Tympanic, resp. rate 16, height 5' 5 (1.651 m), weight 128 lb 3.2 oz (58.2 kg), SpO2 96 %. Weight: Wt Readings from Last 1 Encounters: 09/06/21 128 lb 3.2 oz (58.2 kg) Body mass index is 21.33 kg/m??. EXAM: General appearance: alert, no distress, [...] Flexors 5/5 5/5 Wrist Extensors 5/5 5/5 Professional Tutor 5/5 5/5 Hip Flexors 5/5 5/5 Quadriceps [...] armswing and turns. By: NICHOLAS COVARRUBIAS MD, 09/28/2021, 3:33 PM DRY CELL ASSEMBLY MACHINE TENDER Primary Care Physician: WATSON COLEMAN MD CELL ASSEMBLY MACHINE TENDER documented in this encounter Plan of Treatment Upcoming Encounters Date Type Department Care Team (Late st Contact Info) Description 12/18/2024 2:15 PM DRY CELL ASSEMBLY MACHINE TENDER Office Visit [facility] - Neurology [facility] [address] [place] [address] Nicholas Covarrubias MD [address] [place] [address] documented as of this encounter Visit Diagnoses Diagnosis Essential tremor- Primary Essential and other specified forms of tremor Polyneuropathy Unspecified hereditary and idiopathic peripheral neuropathy Restless leg syndrome Restless legs syndrome (RLS) documented in this encounter Care Teams Apprentice Jockey Relationship Specialty Start Date End Date Watson Coleman MD [address] [place] [id number] PCP - General Family Medicine 01/25/18 documented as of this encounter
--- OUTSIDE RECORDS SUMMARY | 2024-11-23 15:07 | XMS_ITS | Encounter Summary ---
Author Organization [facility] Address [address] [place] [address] Phone Care Team Providers Care Auto Electrician Name Role Phone Watson Perry MD Primary Care Provider [phone] Adeel Covarrubias MD Unavailable Encounter Details Date Type Department Care Team (Late st Contact Info) Description 07/31/2022 Telephone [facility] [address] [place] [address] Adeel Covarrubias MD [address] [place] [address] Social History Tobacco Use Types Packs/Day Years Used Date Smoking Tobacco: Every Day Cigarettes 0.3 47 Started: 11/19/1977 Smokeless Tobacco: Never Alcohol Use Standard Drinks/Week Comments No 0 (1 standard drink = 0.6 oz pur e alcohol) Sexually Active Control Partners Comments Yes Comments No Sex and Gender Information Value Date Recorded Sex Assigned at Not on file Legal Sex Female 9:54 AM STAND UP FORKLIFT OPERATOR Gender Identity Not on file Sexual Orientation Not on file documented as of this encounter Miscellaneous Notes * Telephone Encounter - Norma Cabrera RN - 07/31/2022 2:45 PM CDT Primidone refill documented in this encounter Plan of Treatment Upcoming Encounters Date Type Department Care Team (Late st Contact Info) Description 12/18/2024 2:15 PM STAND UP FORKLIFT OPERATOR Office Visit [facility] - Neurology [facility] [address] [place] [address] Adeel Covarrubias MD [address] [place] [address] documented as of this encounter Visit Diagnoses Diagnosis Essential tremor Essential and other specified forms of tremor documented in this encounter Care Teams Auto Electrician Relationship Specialty Start Date End Date Watson Perry MD [address] [place] [address] PCP - General Family Medicine 01/25/18 Adeel Covarrubias MD [address] [place] [address] Consulting Physician Neurology 03/07/22 documented as of this encounter
--- OUTSIDE RECORDS SUMMARY | 2024-11-23 15:07 | XMS_ITS | Encounter Summary ---
Author Organization [facility] Address [address] [place] [address] Phone Care Team Providers Care Lighting Engineer Name Role Phone Watson Perry MD Primary Care Provider [phone] Adeel Covarrubias MD Unavailable [phone] Reason for Referral * Radiology Services (Routine) - Closed Specialty Diagnoses / Procedures Referred By Contac t Referred To Contact Radiology Diagnoses Nontoxic uninodular goiter Procedures US THYROID Julieta Fleming PAC [address] [place] [address] Phone: tel: fax: Referral ID Status Reason Start Date Expiration Date Visits Re quested Visits Authorized [id number] Closed 08/14/2022 1 1 Reason for Visit * Radiology Services (Routine) - Closed Specialty Diagnoses / Procedures Referred By Contac t Referred To Contact Radiology Diagnoses Nontoxic uninodular goiter Procedures US THYROID Julieta Fleming PAC [address] [place] [address] Phone: tel: fax: Referral ID Status Reason Start Date Expiration Date Visits Re quested Visits Authorized [id number] Closed 08/14/2022 1 1 Encounter Details Date Type Department Care Team (Latest Contact Info) Description 08/30/2022 9:04 AM CDT - 08/30/2022 11:59 PM CDT Hospital Encounter 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 [place]-3 Fatty Acids (FISH OIL PO) Take 2 [...] st Contact Info) Description 12/18/2024 2:15 PM CARTON FORMING MACHINE ADJUSTER Office Visit [facility] - Neurology [facility] [address] [place] [address] Adeel Covarrubias MD [address] [place] [address] documented as of this encounter Procedures Procedure Name Priority Date/Time Associated Diagnosis Comments US THYROID Routine 08/30/2022 9:30 AM CDT Nontoxic uninodular goiter documented in this encounter Results * US THYROID (08/30/2022 [...] Electronically signed by ??Javier Langley M.D. CH: JULI D: ??08/31/2022 9:03 AM T: ??08/31/2022 9:03 AM Report ID: [id number] Reading Location: ??[id number] Procedure Note Javier Langley Jr., MD - [...] Javier Langley M.D. CH: JULI Report ID: [id number] Reading Location: [place] [address] IMPRESSION: Solid 1.8 cm mid right thyroid [...] this encounter Visit Diagnoses Diagnosis Nontoxic uninodular goiter documented in this encounter Care Teams Lighting Engineer Relationship Specialty Start Date End Date Watson Perry MD [address] [place] [address] PCP - General Family Medicine 01/25/18 Adeel Covarrubias MD [address] [place] [address] Consulting Physician Neurology 03/07/22 documented as of this encounter
--- OUTSIDE RECORDS SUMMARY | 2024-11-23 15:07 | XMS_ITS | Encounter Summary ---
Author Organization [facility] Address [address] [place] [address] Phone Care Team Providers Care Teacher Kindergarten Name Role Phone Watson Perry MD Primary Care Provider [phone] Adeel Covarrubias MD Unavailable [phone] Reason for Visit * Auth/Cert Specialty Diagnoses / Procedures Referred By Rhea laura Referred To Contact Diagnoses NONTOXIC SINGLE THYROID NODULE Procedures PRE / POST CARE FOR PROCEDURAL AREA Referral ID Status Reason Start Date Expiration Date Visits Re quested Visits Authorized [id number] 1 1 Encounter Details Date Type Department Care Team (Late st Contact Info) Description 09/19/2022 9:01 AM CDT - 09/19/2022 11:05 AM CDT Hospital [facility] Periop [address] [place] [address] Provider, Anesthesiologist Julieta Fleming, PAC [address] [place] [address] Discharge Disposition: Discharged to home or Selfcare [...] on file Legal Sex Female 9:54 AM HYDROELECTRIC PLANT STRUCTURAL ENGINEER Gender Identity Not on file Sexual Orientation Not on file COVID-19 Exposure Response Date Recorded In the last 10 days, have yo u been in contact with someone who was confirmed or suspected to have Coronavirus/COVID-19? No / Unsure 09/19/2022 9:03 AM CDT documented as of this encounter Last Filed Vital Signs Vital Sign Reading Time Taken Comments Blood Pressure 100/65 09/19/2022 10:52 AM CDT Pulse 68 09/19/2022 10:52 AM CDT Temperature 36.3 ??C (97.3 ??F) 09/19/2022 10:52 AM C DT Respiratory Rate 20 09/19/2022 10:52 AM CDT Oxygen Saturation 90% 09/19/2022 10:52 AM CDT Inhaled Oxygen Concentration - - [...] PO) Take 1 % by mouth daily. [place]-3 Fatty Acids (FISH OIL PO) Take 2 [...] st Contact Info) Description 12/18/2024 2:15 PM HYDROELECTRIC PLANT STRUCTURAL ENGINEER Office Visit [facility] - Neurology [facility] [address] [place] [address] Adeel Covarrubias MD [address] [place] [address] documented as of this encounter Procedures Procedure Name Priority Date/Time Associated Diagnosis Comments PRE / POST CARE FOR PROCEDURAL AREA 09/19/2022 10:00 AM CDT NONTOXIC SINGLE THYROID NODULE SARS-COV-2 BY MOLECULAR STAT 09/19/2022 9:16 AM CDT documented in this encounter Results * SARS-COV-2 BY MOLECULAR (09/19/2022 9:16 AM CDT) SARSCOV2 NOT DETECTED (Referenc e Range for this test is Not Detected) [facility] ID NOW 09/19/2022 9:43 AM CDT [facility] Comment:This test was perfor med by a MOLECULAR, NON-PCR method Other NASOPHARYNGEAL STRUCTURE / Unknown Non-Phlebotomy Collection / Unknown 09/19/2022 9:16 AM CDT 09/19/2022 9:17 AM CDT Narrative [facility] - 09/19/2022 9:43 AM CDT [...] information for Clinicians can be found at: https://www.fda.gov/media/209043/download Additional information for Patients can be found at: https://www.fda.gov/media/960019/download Tripp Alvarez MD MICROBIOLOGY - GENERAL OR DERABLES Final Result [facility] LAB [address] [place] [address] documented in this encounter Visit Diagnoses Not on filedocumented in this encounter Care Teams Teacher Kindergarten Relationship Specialty Start Date End Date Watson Perry MD [address] [place] [address] PCP - General Family Medicine 01/25/18 Adeel Covarrubias MD [address] [place] [address] Consulting Physician Neurology 03/07/22 documented as of this encounter
--- OUTSIDE RECORDS SUMMARY | 2024-11-23 15:07 | XMS_ITS | Encounter Summary ---
Author Organization [facility] Address [address] [place] [address] Phone Care Team Providers Care Warp Preparer Name Role Phone Watson Perry MD Primary Care Provider [phone] Reason for Visit * Reason Onset Date Comments Medication Management 02/11/2021 gabapentin Encounter Details Date Type Department Care Team (Late st Contact Info) Description 02/11/2021 Telephone [facility] - [place] [address] [place] [address] Adeel Covarrubias MD [address] [place] [address] Medication Management (gabapentin) Social History Tobacco Use Types Packs/Day Years Used Date Smoking Tobacco: Every Day Cigarettes 0.3 47 Started: 11/19/1977 Smokeless Tobacco: Never Alcohol Use Standard Drinks/Week Comments No 0 (1 standard drink = 0.6 oz pur e alcohol) Sexually Active Control Partners Comments Yes Comments No Sex and Gender Information Value Date Recorded Sex Assigned at Not on file Legal Sex Female 9:54 AM TECHNOLOGIST INFECTIOUS DISEASE Gender Identity Not on file Sexual Orientation Not on file documented as of this encounter Miscellaneous Notes * Telephone Encounter - Mariela Judd RN - 02/14/2021 10:05 AM CDT Written order from Dr. Covarrubias for primidone 250 mg daily * Telephone Encounter - Mariela Judd RN - 02/11/2021 1:45 PM CDT Patient is reporting that the gabapentin is not working and her tremors are worse now than they were before. Please advise. documented in this encounter Plan of Treatment Upcoming Encounters Date Type Department Care Team (Late st Contact Info) Description 12/18/2024 2:15 PM TECHNOLOGIST INFECTIOUS DISEASE [facility] [address] [place] [address] Adeel Covarrubias MD [address] [place] [address] documented as of this encounter Visit Diagnoses Diagnosis Essential tremor- Primary Essential and other specified forms of tremor documented in this encounter Care Teams Warp Preparer Relationship Specialty Start Date End Date Watson Perry MD [address] [place] [address] PCP - General Family Medicine 01/25/18 documented as of this encounter
--- OUTSIDE RECORDS SUMMARY | 2024-11-23 15:07 | XMS_ITS | Encounter Summary ---
Author Organization [facility] Address [address] [place] [address] Phone Care Team Providers Care Aircraft Electrician Name Role Phone Watson Perry MD Primary Care Provider [phone] Adeel Covarrubias MD Unavailable Reason for Referral * Radiology Services (Routine) - Closed Specialty Diagnoses / Procedures Referred By Contjesse t Referred To Contact Radiology Diagnoses Other disorders of lung Procedures CT CHEST W/O CONTRAST Julieta Fleming PAC [address] [place] [address] Phone: tel: fax: Referral ID Status Reason Start Date Expiration Date Visits Re quested Visits Authorized [id number] Closed 07/28/2022 1 1 Encounter Details Date Type Department Care Team (Latest Contact Info) Description 07/28/2022 Transcribe Orders [facility] Central Scheduling [address] [place] [address] Julieta Fleming PAC [address] [place] [address] Other disorders of lung (Primary Dx) Social History Tobacco Use Types [...] on file Legal Sex Female 9:54 AM BOXING INSPECTOR Gender Identity Not on file Sexual Orientation Not on file documented as of this encounter Plan of Treatment Upcoming Encounters Date Type Department Care Team (Late st Contact Info) Description 12/18/2024 2:15 PM BOXING INSPECTOR Office Visit [facility] - Neurology [facility] [address] [place] [address] Adeel Covarrubias MD [address] [place] [address] documented as of this encounter Results * CT CHEST W/O [...] AM T: ??08/11/2022 6:56 AM Report ID: [id number] Reading Location: ??[id number] Procedure Note Shalom Camargo MD - 08/11/2022 [...] Shalom Camargo M.D. BC: KRISHNA Report ID: [id number] Reading Location: [id number] IMPRESSION: 1. Progressive consolidation at the right [...] in 6-8 weeks is recommended. Julieta Fleming PAC IMG CT ORDERABLES Final Res ult documented in this encounter Visit Diagnoses Diagnosis Other disorders of lung- Primary Other disorders of lung documented in this encounter Care Teams Aircraft Electrician Relationship Specialty Start Date End Date Watson Perry MD [address] [place] [address] PCP - General Family Medicine 01/25/18 Adeel Covarrubias MD [address] [place] [address] Consulting Physician Neurology 03/07/22 documented as of this encounter
--- OUTSIDE RECORDS SUMMARY | 2024-11-23 15:07 | XMS_ITS | Encounter Summary ---
Author Organization [facility] Address [address] [place] [address] Phone Care Team Providers Care Non Destructive Testing Inspector Name Role Phone Watson Perry MD Primary Care Provider [phone] Aedel Covarrubias MD Unavailable [phone] Reason for Referral * Radiology Services (Routine) - Closed Specialty Diagnoses / Procedures Referred By Rhea laura Referred To Contact Radiology Diagnoses Nontoxic single thyroid nodule Procedures US GUIDANCE AND THYROID FINE NEEDLE ASPIRATION US GUIDANCE AND THYROID BIOPSY Julieta Fleming PAC [address] [place] [address] Phone: tel: fax: Referral ID Status Reason Start Date Expiration Date Visits Re quested Visits Authorized [id number] Closed 09/05/2022 1 1 Encounter Details Date Type Department Care Team (Latest Contact Info) Description 09/05/2022 Transcribe Orders [facility] Central Scheduling [address] [place] [address] Julieta Fleming PAC [address] [place] [address] Nontoxic single thyroid nodule (Primary Dx) Social History Tobacco Use [...] on file Legal Sex Female 9:54 AM PEN MAKER Gender Identity Not on file Sexual [...] st Contact Info) Description 12/18/2024 2:15 PM PEN MAKER Office Visit [facility] Neu[facility] [address]2 [place] [address] Adeel Covarrubias MD [address] [place] [address] documented as of this encounter Results * US GUIDANCE AND [...] AM T: ??09/19/2022 11:42 AM Report ID: [id number] Reading Location: ??[id number] THIS IS AN ELECTRONICALLY VERIFIED FINAL REPORT 09/22/2022 1:20 PM ??Addendum Electronically signed by Tripp Alvarez M.D. AG: ALONZO D: ??09/22/2022 1:20 PM T: ??09/22/2022 1:20 PM Report ID: [id number] Reading Location: ??[id number] Impressions 09/19/2022 11:45 AM CDT IMPRESSION: Ultrasound [...] AM T: ??09/19/2022 11:42 AM Report ID: [id number] Reading Location: ??[id number] Procedure Note Tripp Alvarez MD - 09/19/2022 [...] Tripp Alvarez M.D. AG: ALONZO Report ID: [id number] Reading Location: [id number] IMPRESSION: Ultrasound guided fine-needle aspiration of a right thyroid nodule. Pathology is pending. us Julieta Fleming PAC IMG US ORDERABLES Edited Re gino - Final documented in this encounter Visit Diagnoses Diagnosis Nontoxic single thyroid nodule- Primary Nontoxic uninodular goiter Nontoxic single thyroid nodule Nontoxic uninodular goiter documented in this encounter Care Teams Non Destructive Testing Inspector Relationship Specialty Start Date End Date Watson Perry MD [address] [place] [address] PCP - General Family Medicine 01/25/18 Adeel Covarrubias MD [address] [place] [address] Consulting Physician Neurology 03/07/22 documented as of this encounter
--- OUTSIDE RECORDS SUMMARY | 2024-11-23 15:07 | XMS_ITS | Encounter Summary ---
Author Organization [facility] [employer] Care Team Providers Care Track Service Person Name Role Phone Watson Perry MD Primary Care Provider [phone] Adeel Covarrubias MD Unavailable [phone] Encounter Details Date Type Department Care Team (Latest Contact Info) Description 09/19/2022 Travel Social History Tobacco Use Types Packs/Day [...] on file Legal Sex Female 9:54 AM AWNING FINISHER Gender Identity Not on file Sexual Orientation [...] st Contact Info) Description 12/18/2024 2:15 PM AWNING FINISHER Office Visit [facility] - Neurology [facility] [address] [place] [address] Adeel Covarrubias MD [address] [place] [address] documented as of this encounter Visit Diagnoses Not on filedocumented in this encounter Care Teams Track Service Person Relationship Specialty Start Date End Date Watson Perry MD [address] [place] [address] PCP - General Family Medicine 01/25/18 Adeel Covarrubias MD [address] [place] [address] Consulting Physician Neurology 03/07/22 documented as of this encounter
--- OUTSIDE RECORDS SUMMARY | 2024-11-23 15:07 | XMS_ITS | Encounter Summary ---
Author Organization [facility] Address [address] [place] [address] Phone Care Team Providers Care Tire Care Manager Name Role Phone Watson Perry MD Primary Care Provider [phone] Adeel Covarrubias MD Unavailable [phone] Reason for Referral * Radiology Services (Routine) - Closed Specialty Diagnoses / Procedures Referred By Contac t Referred To Contact Radiology Diagnoses COVID-19 Procedures ADULT TRANS THORACIC ECHO 2D COMPLT W Jessi Martinez MD [address] [place] [address] Phone: tel: fax: Referral ID Status Reason Start Date Expiration Date Visits Re quested Visits Authorized [id number] Closed 06/04/2022 1 1 Reason for Visit * Radiology Services (Routine) - Closed Specialty Diagnoses / Procedures Referred By Contac t Referred To Contact Radiology Diagnoses COVID-19 Procedures ADULT TRANS THORACIC ECHO 2D COMPLT W Jessi Martinez MD [address] [place] [address] Phone: tel: fax: Referral ID Status Reason Start Date Expiration Date Visits Re quested Visits Authorized [id number] Closed 06/04/2022 1 1 Encounter Details Date Type Department Care Team (Latest Contact Info) Description 06/14/2022 7:51 AM CDT - 06/14/2022 11:59 PM CDT Hospital Encounter [facility] Cardiology Services 1 [place] [address] Jessi Fontanez MD [address] [place] [address] Discharge Disposition: Discharged to home or Selfcare [...] on file Legal Sex Female 9:54 AM BALLISTICS TESTER Gender Identity Not on file Sexual Orientation [...] PO) Take 1 % by mouth daily. [place]-3 Fatty Acids (FISH OIL PO) Take 2 [...] st Contact Info) Description 12/18/2024 2:15 PM BALLISTICS TESTER [facility] [place] [address] Adeel Covarrubias MD [address] [place] [address] documented as of this encounter Procedures Procedure Name Priority Date/Time Associated Diagnosis Comments ADULT TRANS THORACIC ECHO 2D COMPLT W CONT Routine 06/14/2022 8:46 AM CDT COVID-19 documented in this encounter Results * ADULT [...] name ?JAYA Mathews ? 1950 Patient ID ([facility]) ?[id number] ? Study Date06/14/2022 Technical quality: Adequate Type [...] (BSA) ? 22.61 kg/m^2 ? (1.72 m^2) Sap Developer ?New Tati Interpreting ? Jitendra Ignacio ?Referring Physician ?Darren ?Physician Procedure Note Darren Kidd MD - 06/14/2022 Transthoracic Echocardiography Report (TTE) Patient name JAYA MCKEON Bisi Gonzalez 1950 Patient ID ([facility]) [id number] Study Date06/14/2022 Technical quality: Adequate Type of [...] lbs. BMI (BSA) 22.61 kg/m^2 (1.72 m^2) Sap Developer Shaq Duffy Interpreting Jitendra Ignacio Referring Physician Darren Physician us Jessi Iyer MD IMG ECHO ORDERABLES Edited Re sult - Final documented in this encounter Visit Diagnoses Diagnosis COVID-19 documented in this encounter Additional Health Concerns Infection Onset Date Last Indicated Resolved Time COVID - 19 Confirmed 05/28/2022 05/28/2022 022 12:16 AM CDT documented as of this encounter Care Teams Tire Care Manager Relationship Specialty Start Date End Date Watson Perry MD [address] [place] [address] PCP - General Family Medicine 01/25/18 Adeel Covarrubias MD [address] [place] [address] Consulting Physician Neurology 03/07/22 documented as of this encounter
--- OUTSIDE RECORDS SUMMARY | 2024-11-23 15:07 | XMS_ITS | Encounter Summary ---
Author Organization [facility] [employer] Care Team Providers Care Wood Box Maker Name Role Phone Watson Perry MD Primary Care Provider [phone] Encounter Details Date Type Department Care Team (Latest Contact Info) Description 09/06/2021 Travel Social History Tobacco Use Types Packs/Day [...] on file Legal Sex Female 9:54 AM WARD SERVICE SUPERVISOR Gender Identity Not on file Sexual Orientation [...] st Contact Info) Description 12/18/2024 2:15 PM WARD SERVICE SUPERVISOR Office Visit [facility] - Neurology [facility] #[address] [place] [address] Adeel Covarrubias MD [address] [place] [address] documented as of this encounter Visit Diagnoses Not on filedocumented in this encounter Care Teams Wood Box Maker Relationship Specialty Start Date End Date Watson Perry MD [address] [place] [address] PCP - General Family Medicine 01/25/18 documented as of this encounter
--- OUTSIDE RECORDS SUMMARY | 2024-11-23 15:08 | XMS_ITS | Encounter Summary ---
Author Organization [facility] Address [address] [place] [address] Phone Care Team Providers Care Plant Utility Person Name Role Phone Watson Perry MD Primary Care Provider [phone] Reason for Visit * Reason Comments Follow-up essential tremor * Consult, Test & Initiate Treatment (Routine) - Closed Specialty Diagnoses / Procedures Referred By Contjesse t Referred To Contact Neurology Diagnoses Polyneuropathy, unspecified Watson Perry MD [address] [place] [address] Phone: tel: fax: Adeel Covarrubias MD Phone: tel: fax: Referral ID Status Reason Start Date Expiration Date Visits Re quested Visits Authorized [id number] Closed 12 Encounter Details Date Type Department Care Team (Late st Contact Info) Description 06/04/2020 9:00 AM CDT Telemedicine [facility] - [place] [address] [place] [phone] Adeel Covarrubias MD [address] [place] [address] Essential tremor (Primary Dx); Restless leg syndrome; Polyneuropathy; Abnormal findings on diagnostic imaging of other specified body structures ; Abnormal finding of blood chemistry, unspecified Social History Tobacco Use Types Packs/Day Years [...] on file Legal Sex Female 9:54 AM VAN HELPER Gender Identity Not on file Sexual Orientation Not on file COVID-19 Exposure Response Date Recorded In the last month, have you been in contact with someone who was confirmed or suspected to have Coronavirus / COVID-19? No / Unsure 06/04/2020 9:02 AM CDT documented as of this encounter Progress Notes * Adeel Covarrubias MD - 06/04/2020 9:00 AM CDT Patient was assessed via telephone for a duration of 14 minutes. Patient verbally consented for this service to be performed and billed. HPI: Janeth Parker is a 70 y.o. female evaluated today for evaluation of essential tremor. She notes that it is stable she has not gotten adequate benefit from primidone but at this point does notwant to change her medication regimen. She does note that she has been having new symptoms of numbness involving her big toe on her left. She notes initially she was having a burning throbbing pain. Current Outpatient Medications: ??? Calcium Citrate-Vitamin D 250-200 MG-UNIT Tablet ??? citalopram (CELEXA) 20 MG Tablet ??? clonazePAM (KLONOPIN) 1 MG Tablet ??? esomeprazole (NEXIUM) 20 MG CAPSULE DELAYED RELEASE ??? fluticasone-vilanterol (BREO ELLIPTA) 100-25 MCG/INH AEROSOL POWDER, BREATH ACTIVATED ??? [place]-3 Fatty Acids (FISH OIL PO) ??? pramipexole (MIRAPEX) 0.5 MG Tablet ??? primidone (MYSOLINE) 250 MG Tablet ??? primidone (MYSOLINE) 50 MG Tablet ??? propranolol (INDERAL LA) 60 MG CAPSULE SR 24 HR ??? rosuvastatin (CRESTOR) 10 MG Tablet ??? Vitamins/Minerals Tablet The past medical, surgical, family and social histories, and allergies were reviewed and updated asneeded. ROS: All 14 systems reviewed and negative except as mentioned in the HPI. Plan: ICD-10-CM 1. Essential tremor G25.0 2. Restless leg syndrome G25.81 3. Polyneuropathy G62.9 COMPLETE BLOOD COUNT (CBC) WITH DIFF CMP (COMPREHENSIVE METABOLIC PANEL) VITAMIN B12 FOLIC ACID (FOLATE) THYROID STIMULATING HORMONE (TSH) HEMOGLOBIN A1C W/ ESTIMATED GLUCOSE IMMUNOFIXATION W/ ELECTROPHORESIS SERUM NINA SCREEN MULTIPLEX W/REFLEX CORRINE ERYTHROCYTE SEDIMENTATION RATE (ESR) RHEUMATOID FACTOR (RF) SCREEN 4. Abnormal findings on diagnostic imaging of other specified body structures R93.89 THYROID STIMULATING HORMONE (TSH) 5. Abnormal finding of blood chemistry, unspecified R79.9 HEMOGLOBIN A1C W/ ESTIMATED GLUCOSE - continue primidone 250 mg p.o. nightly - will get lab work to evaluate for neuropathy and bring patient in to further evaluate her symptoms. Follow Up: Janeth was asked to follow up with Adeel Covarrubias MD in 6 month(s). The After Visit Summary is printed and will be mailed to the patient. documented in this encounter Plan of Treatment Upcoming Encounters Date Type Department Care Team (Late st Contact Info) Description 12/18/2024 2:15 PM VAN HELPER Office Visit [facility] - [facility]rology [facility] [address] [place] [address] Adeel Covarrubias MD [address] [place] [address] Scheduled Orders Name Type Priority Associated Diagnoses Orde r Schedule CMP (COMPREHENSIVE METABOLIC PANEL) Lab Routine Polyneuropathy Expected: 06/04/2020, Expires: 08/03/2020 VITAMIN B12 Lab Routine Polyneuropathy Expected: 06/04/2020, Expires: 09/02/2020 THYROID STIMULATING HORMONE (TSH) Lab Routine Abnormal findings on diagnostic imaging of other specified body structures Polyneuropathy Expected: 06/04/2020, Expires: 09/02/2020 HEMOGLOBIN A1C W/ ESTIMATED GLUCOSE Lab Routine Abnormal finding of blood chemistry, unspecified Polyneuropathy Expected: 06/04/2020, Expires: 09/02/2020 IMMUNOFIXATION W/ ELECTROPHORESIS SERUM Lab Routine Polyneuropathy Expected: 06/04/2020, Expires: 09/02/2020 ERYTHROCYTE SEDIMENTATION RATE (ESR) Lab Routine Polyneuropathy Expected: 06/04/2020, Expires: 09/02/2020 RHEUMATOID FACTOR (RF) SCREEN Lab Routine Polyneuropathy Expected: 06/04/2020, Expires: 09/02/2020 documented as of this encounter Procedures Procedure Name Priority Date/Time Associated Diagnosis Comments NINA SCREEN MULTIPLEX W/REFLEX CORRINE Routine 09/22/2020 8:49 AM VAN HELPER Polyneuropathy documented in this encounter Results * NINA SCREEN MULTIPLEX W/REFLEX CORRINE (09/22/2020 8:49 AM VAN HELPER) NINA SCR MULTIPLEX Negative Negative, See comment 09/23/2020 10:29 AM VAN HELPER [facility] Blood Venipuncture / Unknown 09/22/2020 8:49 AM VAN HELPER 09/22/2020 8:49 AM VAN HELPER Narrative [facility] - 09/23/2020 10:29 AM VAN HELPER Antibody testing was performed by multiplex flow immunoassay on the Fly6 platform. Adeel Covarrubias MD IMMUNOLOGY ORDERABLES Final Result Performing Organization Address City/[facility]/ZIP Co de Phone Number [facility] [address] [place] [address], * (ABNORMAL) FOLIC ACID (FOLATE) (09/22/2020 8:49 AM VAN HELPER) FOLATE >=20.0(H) 3.1 - 17.5 ng/mL 09/22/2020 4:13 PM VAN HELPER [facility] Blood Venipuncture / Unknown 09/22/2020 8:49 AM VAN HELPER 09/22/2020 8:49 AM VAN HELPER Adeel Covarrubias MD CHEMISTRY ORDERABLES Final R esult [facility] [address] [place] [address] * COMPLETE BLOOD COUNT (CBC) WITH DIFF (06/21/2020) Blood us Adeel Covarrubias MD HEMATOLOGY ORDERABLES Final Result documented in this encounter Visit Diagnoses Diagnosis Essential tremor- Primary Essential and other specified forms of tremor Restless leg syndrome Restless legs syndrome (RLS) Polyneuropathy Unspecified hereditary and idiopathic peripheral neuropathy Abnormal findings on diagnostic imaging of other specified body structures Abnormal finding of blood chemistry, unspecified documented in this encounter Care Teams Plant Utility Person Relationship Specialty Start Date End Date Watson Perry MD [address] [place] [address] PCP - General Family Medicine 01/25/18 documented as of this encounter
--- OUTSIDE RECORDS SUMMARY | 2024-11-23 15:08 | XMS_ITS | Encounter Summary ---
Author Organization [facility] Address [address] [place] [address] Phone Care Team Providers Care Aircraft Powertrain Repairer Name Role Phone Watson Perry MD Primary Care Provider [phone] Reason for Visit * Reason Comments Tingling Numbness Pain * Other (Routine) - Closed Specialty Diagnoses / Procedures Referred By Contac t Referred To Contact Neurology Diagnoses Polyneuropathy Procedures NCVS/EMG GEORGE LOWERS Adeel Covarrubias MD Phone: tel: fax: Referral ID Status Reason Start Date Expiration Date Visits Re quested Visits Authorized [id number] Closed 08/27/2020 1 1 Encounter Details Date Type Department Care Team (Late st Contact Info) Description 09/22/2020 9:00 AM WOOD BLOCK ARTIST [facility] [address] [place] [phone] Adeel Covarrubias MD [address] [place] [phone] Polyneuropathy Discharge Disposition: Discharged to home or Selfcare [...] on file Legal Sex Female 9:54 AM WOOD BLOCK ARTIST Gender Identity Not on file Sexual Orientation Not on file COVID-19 Exposure Response Date Recorded In the last month, have you been in contact with someone who was confirmed or suspected to have Coronavirus / COVID-19? No / Unsure 09/22/2020 8:28 AM WOOD BLOCK ARTIST documented as of this encounter Progress Notes * Adeel Covarrubias MD - 09/22/2020 9:00 AM CST Please refer to procedure note. BLOCK ARTIST documented in this encounter Procedure Notes * Adeel Covarrubias MD - 09/22/2020 9:00 AM CSTAssociated Order(s): NCVS/EMG GEORGE LOWERS Electromyogram Procedure Note Date of Procedure: 09/22/2020 Pre-operative Diagnosis: bilateral lower extremity numbness, tingling and pain. Post-operative Diagnosis: Indications: Diagnostic Procedure Details Motor Nerve Conduction Studies: The bilateral peroneal motor nerve shows normal distal motor latency, normal motor amplitude and normal conduction velocity. The bilateral tibial motor nerve shows normal distal motor latency, decreased motor amplitude and decreased conduction velocity. Sensory Nerve Conduction Studies: The left lateral and medial plantar sensory nerve shows prolonged sensory nerve peak latency and normal sensory amplitude. The right lateral and medial plantar sensory peak latency was not reactive. The bilateral superficial peroneal sensory nerve shows normal sensory nerve peak latency and normalsensory amplitude. The bilateral sural sensory nerve shows normal sensory nerve peak latency and normal sensory amplitude. F waves: F wave latencies for the bilateral peroneal nerve were normal. F wave latencies for the bilateral tibial nerve were prolonged. EMG: Needle EMG of the right abductor hallucis brevis, gastrocnemius, anterior tibialis and vastus medial was normal. Summary This is an abnormal study consistent with the followin. Decreased motor nerve conduction velocity and motor amplitude with prolonged F wave latencies ofbilateral tibial nerve. 2. Non-reactive right medial and lateral plantar sensory nerve action potentials. 3. Prolonged left medial and lateral plantar sensory nerve action potentials. 4. Suggest bilateral tarsal tunnel syndrome, right greater than left. Clinical correlation is recommended. BLOCK ARTIST documented in this encounter Plan of Treatment Upcoming Encounters Date Type Department Care Team (Late st Contact Info) Description 12/18/2024 2:15 PM WOOD BLOCK ARTIST [facility] [address] [place] [address] Adeel Covarrubias MD [address] [place] [address] documented as of this encounter Procedures Procedure Name Priority Date/Time Associated Diagnosis Comments NCVS/EMG GEORGE LOWERS Routine 09/22/2020 9 :00 AM WOOD BLOCK ARTIST Polyneuropathy documented in this encounter Results * NCVS/EMG GEORGE LOWERS (09/22/2020 9:00 AM WOOD BLOCK ARTIST) Narrative Adeel Covarrubias MD - 09/22/2020 9:00 AM WOOD BLOCK ARTIST Adeel Covarrubias MD ? 10/06/2020 ??2:46 PM Electromyogram Procedure Note Date of Procedure: 09/22/2020 Pre-operative Diagnosis: bilateral lower extremity numbness, tingling and pain. Post-operative Diagnosis: Indications: Diagnostic Procedure Details Motor Nerve Conduction Studies: The bilateral peroneal motor nerve shows normal distal motor latency, normal motor amplitude and normal conduction velocity. The bilateral tibial motor nerve shows normal distal motor latency, decreased motor amplitude and decreased conduction velocity. Sensory Nerve Conduction Studies: The left lateral and medial plantar sensory nerve shows prolonged sensory nerve peak latency and normal sensory amplitude. The right lateral and medial plantar sensory peak latency was not reactive. The bilateral superficial peroneal sensory nerve shows normal sensory nerve peak latency and normal sensory amplitude. The bilateral sural sensory nerve shows normal sensory nerve peak latency and normal sensory amplitude. F waves: F wave latencies for the bilateral peroneal nerve were normal. F wave latencies for the bilateral tibial nerve were prolonged. EMG: Needle EMG of the right abductor hallucis brevis, gastrocnemius, anterior tibialis and vastus medial was normal. Summary This is an abnormal study consistent with the followin. ??Decreased motor nerve conduction velocity and motor amplitude with prolonged F wave latencies of bilateral tibial nerve. 2. ??Non-reactive right medial and lateral plantar sensory nerve action potentials. 3. ??Prolonged left medial and lateral plantar sensory nerve action potentials. 4. ??Suggest bilateral tarsal tunnel syndrome, right greater than left. Clinical correlation is recommended. us Adeel Covarrubias MD NEUROLOGY ORDERABLES Final R esult documented in this encounter Visit Diagnoses Diagnosis Polyneuropathy Unspecified hereditary and idiopathic peripheral neuropathy documented in this encounter Care Teams Aircraft Powertrain Repairer Relationship Specialty Start Date End Date Watson Perry MD [address] [place] [address] PCP - General Family Medicine 01/25/18 documented as of this encounter
--- OUTSIDE RECORDS SUMMARY | 2024-11-23 15:08 | XMS_ITS | Encounter Summary ---
Author Organization [facility] [employer] Care Team Providers Care Janitor Name Role Phone Watson Perry MD Primary Care Provider [phone] Encounter Details Date Type Department Care Team (Latest Contact Info) Description 09/22/2020 Travel Social History Tobacco Use Types Packs/Day [...] on file Legal Sex Female 9:54 AM ENTERER Gender Identity Not on file Sexual Orientation Not on file COVID-19 Exposure Response Date Recorded In the last month, have you been in contact with someone who was confirmed or suspected to have Coronavirus / COVID-19? No / Unsure 09/22/2020 8:28 AM ENTERER documented as of this encounter Plan of Treatment Upcoming Encounters Date Type Department Care Team (Late st Contact Info) Description 12/18/2024 2:15 PM ENTERER Office Visit [facility] - [facility] [address] [place] [address] Adeel Covarrubias MD [address] [place] [address] documented as of this encounter Visit Diagnoses Not on filedocumented in this encounter Care Teams Janitor Relationship Specialty Start Date End Date Watson Perry MD [address] [place] [address] PCP - General Family Medicine 01/25/18 documented as of this encounter
--- OUTSIDE RECORDS SUMMARY | 2024-11-23 15:08 | XMS_ITS | Encounter Summary ---
Author Organization [facility] [employer] Care Team Providers Care Media Production Manager Name Role Phone Watson Perry MD Primary Care Provider [phone] Encounter Details Date Type Department Care Team (Latest Contact Info) Description 11/30/2020 Travel Social History Tobacco Use Types Packs/Day [...] on file Legal Sex Female 9:54 AM MAPPING SUPERVISOR Gender Identity Not on file Sexual Orientation Not on file COVID-19 Exposure Response Date Recorded In the last month, have you been in contact with someone who was confirmed or suspected to have Coronavirus / COVID-19? No / Unsure 11/30/2020 9:21 AM MAPPING SUPERVISOR documented as of this encounter Plan of Treatment Upcoming Encounters Date Type Department Care Team (Late st Contact Info) Description 12/18/2024 2:15 PM MAPPING SUPERVISOR Office Visit [facility] - Neurology [facility] [address] [place] [phone] Adeel Covarrubias MD [address] [place] [address] documented as of this encounter Visit Diagnoses Not on filedocumented in this encounter Care Teams Media Production Manager Relationship Specialty Start Date End Date Watson Perry MD [address] [place] [address] PCP - General Family Medicine 01/25/18 documented as of this encounter
--- OUTSIDE RECORDS SUMMARY | 2024-11-23 15:08 | XMS_ITS | Encounter Summary ---
Author Organization [facility] [employer] Care Team Providers Care Rehabilitation Services Counselor Name Role Phone Watson Perry MD Primary Care Provider [phone] Encounter Details Date Type Department Care Team (Latest Contact Info) Description 12/26/2019 Travel Social History Tobacco Use Types Packs/Day [...] file Legal Sex Female 9:54 AM DAIRY FARM MANAGER Gender Identity Not on file Sexual Orientation Not on file documented as of this encounter Plan of Treatment Upcoming Encounters Date Type Department Care Team (Late st Contact Info) Description 12/18/2024 2:15 PM DAIRY FARM MANAGER Office Visit [facility] - [facility] [address] [place] [address] Adeel Covarrubias MD [address] [place] [phone] documented as of this encounter Visit Diagnoses Not on filedocumented in this encounter Care Teams Rehabilitation Services Counselor Relationship Specialty Start Date End Date Watson Perry MD [address] [place] [address] PCP - General Family Medicine 01/25/18 documented as of this encounter
--- OUTSIDE RECORDS SUMMARY | 2024-11-23 15:08 | XMS_ITS | Encounter Summary ---
Author Organization [facility] [email or web address] Care Team Providers Care Oracle E Business Developer Name Role Phone Watson Perry MD Primary Care Provider [phone] Encounter Details Date Type Department Care Team (Latest Contact Info) Description 06/04/2020 Travel Social History Tobacco Use Types Packs/Day [...] on file Legal Sex Female 9:54 AM SPINNER IRON Gender Identity Not on file Sexual Orientation [...] st Contact Info) Description 12/18/2024 2:15 PM SPINNER IRON Office Visit [facility] - Neurology [facility] [address] [place] [address] Adeel Covarrubias MD [address] [place] [address] documented as of this encounter Visit Diagnoses Not on filedocumented in this encounter Care Teams Oracle E Business Developer Relationship Specialty Start Date End Date Watson Perry MD [address] [place] [address] PCP - General Family Medicine 01/25/18 documented as of this encounter
--- OUTSIDE RECORDS SUMMARY | 2024-11-23 15:08 | XMS_ITS | Encounter Summary ---
Author Organization [facility] Address [address] [facility] [place] [address] Phone Care Team Providers Care Central Aisle Cashier Name Role Phone Watson Perry MD Primary Care Provider [phone] Reason for Visit * Reason Comments Tremors * Consult, Test & Initiate Treatment (Routine) - Closed Specialty Diagnoses / Procedures Referred By Contac t Referred To Contact Neurology Diagnoses Polyneuropathy, unspecified Watson Perry MD [address] [place] [address] Phone: tel: fax: Adeel Covarrubias MD Phone: tel: fax: Referral ID Status Reason Start Date Expiration Date Visits Re quested Visits Authorized [id number] Closed 1 12 Encounter Details Date Type Department Care Team (Late st Contact Info) Description 11/30/2020 10:45 AM JOINT MACHINE OPERATOR Telemedicine [facility] - [facility] - [place] [address] [place] [phone] Adeel Covarrubias MD [address] [place] [address] Essential tremor (Primary Dx); Polyneuropathy; Restless leg syndrome Social History Tobacco Use Types Packs/Day Years [...] on file Legal Sex Female 9:54 AM JOINT MACHINE OPERATOR Gender Identity Not on file Sexual Orientation Not on file COVID-19 Exposure Response Date Recorded In the last month, have you been in contact with someone who was confirmed or suspected to have Coronavirus / COVID-19? No / Unsure 11/30/2020 9:21 AM JOINT MACHINE OPERATOR documented as of this encounter Progress Notes * Adeel Covarrubias MD - 11/30/2020 10:45 AM CST Patient was assessed via Telephone for a duration of 16 minutes. Patient verbally consented for this service to be performed and billed. HPI: Janeth Parker is a 70 y.o. female evaluated today for evaluation of her central tremor. Shedoes not feel any benefit from primidone. She is currently on propranolol. She also was tried on Topamax but had side effects was not able to tolerated. She notes significant disability with eating, applying makeup, writing ect. She also notes significant social embarrassment as a result as well. Current Outpatient Medications: ??? Calcium Citrate-Vitamin D 250-200 MG-UNIT Tablet ??? citalopram (CELEXA) 20 MG Tablet ??? clonazePAM (KLONOPIN) 1 MG Tablet ??? esomeprazole (NEXIUM) 20 MG CAPSULE DELAYED RELEASE ??? fluticasone-vilanterol (BREO ELLIPTA) 100-25 MCG/INH AEROSOL POWDER, BREATH ACTIVATED ??? Multiple Vitamin (MULTIVITAMIN PO) ??? [place]-3 Fatty Acids (FISH OIL PO) ??? pramipexole (MIRAPEX) 0.5 MG Tablet ??? primidone (MYSOLINE) 50 MG Tablet ??? propranolol (INDERAL LA) 60 MG CAPSULE SR 24 HR ??? rosuvastatin (CRESTOR) 10 MG Tablet ??? Vitamins/Minerals Tablet The past medical, surgical, family and social histories, and allergies were reviewed and updated asneeded. ROS: All 14 systems reviewed and negative except as mentioned in the HPI. Plan: ICD-10-CM 1. Essential tremor G25.0 2. Polyneuropathy G62.9 3. Restless leg syndrome G25.81 - Will switch patient from primidone to gabapentin - discussed the options of DBS surgery with patient and she will give it some consideration - she will also address the issue with her sister who has recently gotten the surgery Follow Up: Janeth was asked to follow up with Adeel Covarrubias MD in 6 month(s). The After Visit Summary is printed and will be mailed to the patient. T MACHINE OPERATOR documented in this encounter Plan of Treatment Upcoming Encounters Date Type Department Care Team (Late st Contact Info) Description 12/18/2024 2:15 PM JOINT MACHINE OPERATOR Office Visit [facility] [address] [place] [address] Adeel Covarrubias MD [address] [place] [address] documented as of this encounter Visit Diagnoses Diagnosis Essential tremor- Primary Essential and other specified forms of tremor Polyneuropathy Unspecified hereditary and idiopathic peripheral neuropathy Restless leg syndrome Restless legs syndrome (RLS) documented in this encounter Care Teams Central Aisle Cashier Relationship Specialty Start Date End Date Watson Perry MD [address] [place] [address] PCP - General Family Medicine 01/25/18 documented as of this encounter
--- OUTSIDE RECORDS SUMMARY | 2024-11-23 15:08 | XMS_ITS | Encounter Summary ---
Author Organization [facility] Address [address] [place] [address] Phone Care Team Providers Care Director Client Services Name Role Phone Watson Perry MD Primary Care Provider [phone] Reason for Visit * Reason Comments Follow-up essential tremor * Consult, Test & Initiate Treatment (Routine) - Closed Specialty Diagnoses / Procedures Referred By Contac t Referred To Contact Neurology Diagnoses Essential tremor Watson Perry MD [address] [place] [address] Phone: tel: fax: Adeel Covarrubias MD Phone: tel: fax: Referral ID Status Reason Start Date Expiration Date Visits Re quested Visits Authorized [id number] Closed 1 1 Encounter Details Date Type Department Care Team (Late st Contact Info) Description 03/05/2020 1:00 PM CDT Telemedicine [facility] - Neurology - [place] [address] [place] [phone] Adeel Covarrubias MD [address] [place] [phone] Essential tremor (Primary Dx); Restless leg syndrome Social History Tobacco Use [...] on file Legal Sex Female 9:54 AM AUTOMOTIVE PARTS SALESPERSON Gender Identity Not on file Sexual Orientation Not on file COVID-19 Exposure Response Date Recorded In the last month, have you been in contact with someone who was confirmed or suspected to have Coronavirus / COVID-19? No / Unsure 03/05/2020 1:28 PM CDT documented as of this encounter Progress Notes * Adeel Covarrubias MD - 03/05/2020 1:00 PM CDT Patient was assessed via telephone for a duration of 14 minutes. Patient verbally consented for this service to be performed and billed. HPI: Janeth Parker is a 70 y.o. female evaluated today for essential tremor. She has not had significant benefit with increasing the primidone and notes she shakes all the time. Current Outpatient Medications: ??? Calcium Citrate-Vitamin D 250-200 MG-UNIT Tablet ??? citalopram (CELEXA) 20 MG Tablet ??? clonazePAM (KLONOPIN) 1 MG Tablet ??? esomeprazole (NEXIUM) 20 MG CAPSULE DELAYED RELEASE ??? fluticasone-vilanterol (BREO ELLIPTA) 100-25 MCG/INH AEROSOL POWDER, BREATH ACTIVATED ??? [place]-3 Fatty Acids (FISH OIL PO) ??? pramipexole [...] tremor G25.0 2. Restless leg syndrome G25.81 Follow Up: Janeth was asked to follow up with Adeel Covarrubias MD in 3 month(s). The After Visit Summary is printed and will be mailed to the patient. documented in this encounter Plan of Treatment Upcoming Encounters Date Type Department Care Team (Late st Contact Info) Description 12/18/2024 2:15 PM AUTOMOTIVE PARTS SALESPERSON [facility] [address] [place] [address] Adeel Covarrubias MD [address] [place] [address] documented as of this encounter Visit Diagnoses Diagnosis Essential tremor- Primary Essential and other specified forms of tremor Restless leg syndrome Restless legs syndrome (RLS) documented in this encounter Care Teams Director Client Services Relationship Specialty Start Date End Date Watson Perry MD [address] [place] [id number] PCP - General Family Medicine 01/25/18 documented as of this encounter
--- OUTSIDE RECORDS SUMMARY | 2024-11-23 15:08 | XMS_ITS | Encounter Summary ---
Author Organization [facility] Address [address] [place] [place] [address] Phone Care Team Providers Care Bottle House Quality Control Technician Name Role Phone Watson Coleman MD Primary Care Provider [phone] Reason for Referral * Other (Routine) - Closed Specialty Diagnoses / Procedures Referred By Contjesse t Referred To Contact Neurology Diagnoses Polyneuropathy Procedures NCVS/EMG GEORGE LOWERS Nicholas Wise MD Phone: tel: fax: Referral ID Status Reason Start Date Expiration Date Visits Re quested Visits Authorized [id number] Closed 08/27/2020 1 1 Reason for Visit * Reason Comments Follow-up essential tremor Encounter Details Date Type Department Care Team (Late st Contact Info) Description 08/27/2020 3:30 PM CDT Office Visit [facility] - [facility]rology - [place] [address] [facility] [address] Nicholas Wise MD [address] [place] [address] Polyneuropathy (Primary Dx); Essential tremor Discharge Disposition: Discharged [...] file Legal Sex Female 9:54 AM MANAGER BANQUET Gender Identity Not on file Sexual Orientation Not on file COVID-19 Exposure Response Date Recorded In the last month, have you been in contact with someone who was confirmed or suspected to have Coronavirus / COVID-19? No / Unsure 11/30/2020 9:21 AM MANAGER BANQUET documented as of this encounter Last Filed Vital Signs Vital Sign Reading Time Taken Comments Blood Pressure 110/70 08/27/2020 3:39 PM CDT Pulse 74 08/27/2020 3:39 PM CDT Temperature 36.6 ??C (97.8 ??F) 08/27/2020 3:39 PM CD T Respiratory Rate 17 08/27/2020 3:39 PM CDT Oxygen Saturation 93% 08/27/2020 3:39 PM CDT Inhaled Oxygen Concentration - - Weight 60 kg (132 lb 3.2 oz) 08/27/2020 3:39 PM CDT Height 165.1 cm (5' 5 ) 08/27/2020 3:39 PM CDT Body Mass Index 22 08/27/2020 3:39 PM CDT documented in this encounter Progress Notes * Nicholas Wise MD - 08/27/2020 3:30 PM CDT NEUROLOGY CONSULT Assessment and Plan Janeth was seen today for follow-up. Diagnoses and all orders for this visit: Polyneuropathy - NCVS/EMG GEORGE LOWERS; Future Essential tremor Other orders - primidone (MYSOLINE) 250 MG Tablet; Take 1 Tab by mouth nightly. Reason for Consultation: tremor HPI: Janeth continues to benefit from primidone. However she felt that she may need to increase her doseagain. She has been having more trouble drinking water from a cup and so forth. She also notes her writing is got a little worse. Prior History: Janeth is a 68-year-old female [...] Laterality Date ??? DILATION AND CURETTAGE ??? ORAL SURGERY PROCEDURE bone removal ??? [...] by mouth., Disp: , Rfl: ??? clonazePAM (KLONOPIN) 1 MG Tablet, , Disp: , Rfl: 1 ??? esomeprazole (NEXIUM) 20 MG CAPSULE DELAYED RELEASE, Take by mouth., Disp: , Rfl: ??? fluticasone-vilanterol (BREO ELLIPTA) 100-25 MCG/INH AEROSOL POWDER, BREATH ACTIVATED, take 1 Puff by inhalation daily., Disp: , Rfl: ??? gabapentin (NEURONTIN) 300 MG Capsule, Take 1 Cap by mouth 2 times daily., Disp: 60 Cap, Rfl: 3 ??? Multiple Vitamin (MULTIVITAMIN PO), Take by mouth., Disp: , Rfl: ??? [place]-3 Fatty Acids (FISH OIL PO), Take by mouth., Disp: , Rfl: ??? pramipexole (MIRAPEX) 0.5 MG Tablet, Take by mouth., Disp: , Rfl: ??? propranolol (INDERAL LA) 60 MG CAPSULE SR 24 HR, Take 1 Cap by mouth daily., Disp: 90 Cap, Rfl:1 ??? rosuvastatin (CRESTOR) 10 MG Tablet, , Disp: , Rfl: ??? Vitamins/Minerals Tablet, Take by mouth., Disp: , Rfl: Review of Systems: A 14 point Review of Systems is obtained, and is negative other than that mentioned in the History of Present Illness. Objective: VITALS: Blood pressure 110/70, pulse 74, temperature 97.8 ??F (36.6 ??C), temperature source Tympanic, resp. rate 17, height 5' 5 (1.651 m), weight 132 lb 3.2 oz (60 kg), SpO2 93 %. Weight: Wt Readings from Last 1 Encounters: 08/27/20 132 lb 3.2 oz (60 kg) Body mass index is 22 kg/m??. EXAM: General appearance: alert, no distress, [...] Flexors 5/5 5/5 Wrist Extensors 5/5 5/5 Solar Photovoltaic Crew Lead 5/5 5/5 Hip Flexors 5/5 5/5 Quadriceps [...] armswing and turns. By: NICHOLAS WISE MD, 02/11/2021, 8:49 PM CDT Primary Care Physician: WATSON COLEMAN MD documented in this encounter Plan of Treatment Upcoming Encounters Date Type Department Care Team (Late st Contact Info) Description 12/18/2024 2:15 PM MANAGER BANQUET [facility] [address] [place] [address] Nicholas Wise MD [address] [place] [address] documented as of this encounter Results * NCVS/EMG GEORGE LOWERS (09/22/2020 9:00 AM MANAGER BANQUET) Narrative Nicholas Wise MD - 09/22/2020 9:00 AM MANAGER BANQUET Nicholas Wise MD ? 10/06/2020 ??2:46 PM Electromyogram Procedure [...] than left. Clinical correlation is recommended. us Nicholas Wise MD NEUROLOGY ORDERABLES Final R esult documented in this encounter Visit Diagnoses Diagnosis Polyneuropathy- Primary Unspecified hereditary and idiopathic peripheral neuropathy Essential tremor Essential and other specified forms of tremor Polyneuropathy Unspecified hereditary and idiopathic peripheral neuropathy documented in this encounter Care Teams Bottle House Quality Control Technician Relationship Specialty Start Date End Date Watson Coleman MD [address] [place] [id number] PCP - General Family Medicine 01/25/18 documented as of this encounter
--- OUTSIDE RECORDS SUMMARY | 2024-11-23 15:08 | XMS_ITS | Encounter Summary ---
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
--- OUTSIDE RECORDS SUMMARY | 2024-11-23 15:08 | XMS_ITS | Encounter Summary ---
Author Organization [facility] Address [address] [place] [address] Phone Care Team Providers Care Snack Foods Mixer Operator Name Role Phone Watson Perry MD Primary Care Provider [phone] Reason for Visit * Reason Onset Date Comments Need Order 06/22/2020 Lab Encounter Details Date Type Department Care Team (Late st Contact Info) Description 06/22/2020 Telephone [facility] - Neurology - [place] [address] [place] [address] Adeel Covarrubias MD [address] [place] [phone] Need Order (Lab) Social History Tobacco Use Types Packs/Day Years Used Date Smoking Tobacco: Every Day Cigarettes 0.3 47 Started: [birth year]/19/1977 Smokeless Tobacco: Never Alcohol Use Standard Drinks/Week Comments No 0 (1 standard drink = 0.6 oz pur e alcohol) Sexually Active Control Partners Comments Yes Comments No Sex and Gender Information Value Date Recorded Sex Assigned at Not on file 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 No / Unsure 06/04/2020 9:02 AM CDT documented as of this encounter Miscellaneous Notes * Telephone Encounter - Mariela Judd, RN - 06/22/2020 3:30 PM CDT Order needs extended documented in this encounter Plan of Treatment Upcoming Encounters Date Type Department Care Team (Late st Contact Info) Description 12/18/2024 2:15 PM AIR SEALING TECHNICIAN [facility] [address] [place] [address] Adeel Covarrubias MD [address] [place] [address] documented as of this encounter Visit Diagnoses Diagnosis Polyneuropathy- Primary Unspecified hereditary and idiopathic peripheral neuropathy documented in this encounter Care Teams Snack Foods Mixer Operator Relationship Specialty Start Date End Date Watson Perry MD [address] [place] [address] PCP - General Family Medicine 01/25/18 documented as of this encounter
--- OUTSIDE RECORDS SUMMARY | 2024-11-23 15:08 | XMS_ITS | Encounter Summary ---
Author Organization [facility] Address [address] [place] [address] Phone Care Team Providers Care Sales Demonstrator Name Role Phone Watson Perry MD Primary Care Provider Reason for Visit * Reason Comments Vaginal Bleeding Encounter Details Date Type Department Care Team (Late st Contact Info) Description 12/26/2019 12:23 PM HYDROELECTRIC STATION OPERATOR CHIEF - 12/26/2019 2:46 PM HYDROELECTRIC STATION OPERATOR CHIEF Emergency [facility] Emergency [address] [place] [id number] Bere Simon, PAC [address] [place] [address] Postmenopausal bleeding Discharge Disposition: Discharged to home or Selfcare [...] file Legal Sex Female 9:54 AM HYDROELECTRIC STATION OPERATOR CHIEF Gender Identity Not on file Sexual Orientation Not on file documented as of this encounter Last Filed Vital Signs Vital Sign Reading Time Taken Comments Blood Pressure 125/78 12/26/2019 12:19 PM HYDROELECTRIC STATION OPERATOR CHIEF Pulse 64 12/26/2019 12:19 PM HYDROELECTRIC STATION OPERATOR CHIEF Temperature 36.8 ??C (98.3 ??F) 12/26/2019 12:[address] Respiratory Rate 16 12/26/2019 12:19 PM HYDROELECTRIC STATION OPERATOR CHIEF Oxygen Saturation 94% 12/26/2019 12:19 PM HYDROELECTRIC STATION OPERATOR CHIEF Inhaled Oxygen Concentration - - Weight 61.2 kg (135 lb) 12/26/2019 12:19 PM HYDROELECTRIC STATION OPERATOR CHIEF Height 165.1 cm (5' 5 ) 12/26/2019 12:19 PM HYDROELECTRIC STATION OPERATOR CHIEF Body Mass Index 22.47 12/26/2019 12:19 PM HYDROELECTRIC STATION OPERATOR CHIEF documented in this encounter Discharge Instructions * Discharge Instructions* Bere Simon PAC - 12/26/2019 2:37 PM HYDROELECTRIC STATION OPERATOR CHIEF Please followup with Dr. Sanford as scheduled. Please return if you have any worsening symptoms orif you are saturating a pad an hour for two consecutive hours. OELECTRIC STATION OPERATOR CHIEF * Attachments The following attachments cannot be sent through Care Everywhere. * Endometrial Biopsy ([place]orese) documented in this encounter Medications at Time of Discharge citalopram (CELEXA) 20 MG Tablet Take 20 mg by mouth daily. esomeprazole (NEXIUM) 20 MG CAPSULE DELAYED RELEASE Take 20 mg by mouth every morning (before breakfast). La Russell-3 Fatty Acids (FISH OIL PO) Take 2 Capsules by mouth daily. rosuvastatin (CRESTOR) 10 MG Tablet Take 10 mg by mouth nightly. 02/26/2018 Calcium Citrate-Vitamin D 250-200 MG-UNIT Tablet Take by mouth. 4 clonazePAM (KLONOPIN) 1 MG Tablet 1 03/16/2018 1 fluticasone-ramon nterol (BREO ELLIPTA) 100-25 MCG/INH AEROSOL POWDER, BREATH ACTIVATED take 1 Puff by inhalation daily. 4 pramipexole (MIRAPEX) 0.5 MG Tablet Take by mouth. 2 primidone (MYSOLINE) 50 MG Tablet Take 1 tab in am and 3 at night 360 Tab 3 10/01/2019 0 propranolol (INDERAL LA) 60 MG CAPSULE SR 24 HRIndications:Es sential tremor Take 1 Cap by mouth daily. 90 Cap 1 08/22/2018 2 Vitamins/Mineral s Tablet Take by mouth. 2 documented as of this encounter ED Notes * Caroline Baldwin RN - 12/26/2019 2:46 PM CST Patient discharged. Discharge instructions and patient educational material reviewed with patient; questions and concerns addressed; patient verbalizes understanding, using teach back. Patient ambulated with a steady gait upon exiting OELECTRIC STATION OPERATOR CHIEF * Caroline Baldwin RN - 12/26/2019 1:45 PM CST Pt back in room. No new concerns at this time OELECTRIC STATION OPERATOR CHIEF * Caroline Baldwin RN - 12/26/2019 1:10 PM CST Pt in US OELECTRIC STATION OPERATOR CHIEF * Bere Simon, MONSERRAT - 12/26/2019 12:53 PM CST Chief Complaint Patient presents with ??? Vaginal Bleeding HPI Janeth Parker is a 69 y.o. female who presents due to vaginal bleeding. She states she went through menopause age 54 and then started having intermittent vaginal bleeding 6 months ago. She hadan uterine biopsy and D&C 12/15/[address] Kelley Sanford. She states that since having theprocedure she has had an increase in bleeding. She states she ran out of pads and now is using tampons and soaking through tampons. She has passed some clots. She denies any abdominal pain, dysuria, nausea, vomiting, or diarrhea. She started taking provera 10 mg daily 12/08/2019. PMH includes COPD and hyperlipidemia. She is not on any anticoagulants. She is a smoker. She states the uterine biopsy had inconclusive results. No current facility-administered medications for this encounter. Current Outpatient Medications Medication Sig Dispense Refill ??? Calcium Citrate-Vitamin D 250-200 MG-UNIT Tablet Take by mouth. ??? citalopram (CELEXA) 20 MG Tablet Take by mouth. ??? clonazePAM (KLONOPIN) 1 MG Tablet 1 ??? esomeprazole (NEXIUM) 20 MG CAPSULE DELAYED RELEASE Take by mouth. ??? fluticasone-vilanterol (BREO ELLIPTA) 100-25 MCG/INH AEROSOL POWDER, BREATH ACTIVATED take 1 Puff by inhalation daily. ??? La Russell-3 Fatty Acids (FISH OIL PO) Take by mouth. ??? pramipexole (MIRAPEX) 0.5 MG Tablet Take by mouth. ??? primidone (MYSOLINE) 50 MG Tablet Take 1 tab in am and 3 at night 360 Tab 3 ??? propranolol (INDERAL LA) 60 MG CAPSULE SR 24 HR Take 1 Cap by mouth daily. 90 Cap 1 ??? rosuvastatin (CRESTOR) 10 MG Tablet ??? Vitamins/Minerals Tablet Take by mouth. Allergies Allergen Reactions ??? Ibuprofen Rash Past Medical History Positives Diagnosis Date ??? COPD (chronic obstructive pulmonary disease) (HCC) ??? Hyperlipidemia Past Surgical History: Procedure Laterality Date ??? ORAL SURGERY PROCEDURE bone removal ??? [...] 11/19/1977 ??? Smokeless tobacco: Never Used Substance and Sexual Activity ??? Alcohol use: No ??? Drug use: No ??? Sexual activity: Yes Lifestyle ??? Physical activity: Days per week: Not on file Minutes per session: Not on file ??? Stress: Not on file Relationships ??? Social connections: Talks on phone: Not on file Gets together: Not on file Attends protestant service: Not on file Active member of [...] History Narrative ??? Not on file BP 125/78 Pulse 64 Temp 98.3 ??F (36.8 ??C) (Tympanic) Resp 16 Ht 5' 5 (1.651 m) Wt 135 lb (61.2 kg) SpO2 94% BMI 22.47 kg/m?? Review of Systems Constitutional: Negative for chills and fever. HENT: Negative for congestion, ear pain and sore throat. Eyes: Negative for pain and discharge. Respiratory: Negative for cough, chest tightness and shortness of breath. Cardiovascular: Negative for chest pain, palpitations and leg swelling. Gastrointestinal: Negative for abdominal distention, abdominal pain, blood in stool, constipation, diarrhea, nausea and vomiting. Genitourinary: Positive for vaginal bleeding. Negative for dysuria, frequency and vaginal discharge. Musculoskeletal: Negative for arthralgias and back pain. Skin: Negative for color change and rash. Neurological: Negative for dizziness, weakness, light-headedness and headaches. Psychiatric/Behavioral: Negative for suicidal ideas. All other systems reviewed and are negative. Physical Exam Vitals signs and nursing note reviewed. Constitutional: General: She is not in acute distress. Appearance: She is well-developed. She is not diaphoretic. HENT: Head: Normocephalic and atraumatic. Right Ear: External ear normal. Left Ear: External ear normal. Eyes: Conjunctiva/sclera: Conjunctivae normal. Pupils: Pupils are equal, round, and reactive to light. Neck: Musculoskeletal: Normal range of motion. Trachea: No tracheal deviation. Cardiovascular: Rate and Rhythm: Normal rate and regular rhythm. Heart sounds: Normal heart sounds. No murmur. Pulmonary: Effort: Pulmonary effort is normal. No respiratory distress. Breath sounds: Normal breath sounds. No wheezing or rales. Abdominal: General: Bowel sounds are normal. There is no distension. Palpations: Abdomen is soft. Tenderness: There is no tenderness. There is no guarding or rebound. Musculoskeletal: Normal range of motion. Skin: General: Skin is warm and dry. Neurological: Mental Status: She is alert and oriented to person, place, and time. Cranial Nerves: No cranial nerve deficit. Labs Reviewed CMP (COMPREHENSIVE METABOLIC PANEL) - Abnormal; Notable for the following components: Result Value CHLORIDE 99 (*) GLUCOSE 104 (*) All other components within normal limits URINALYSIS REFLEX IF INDICATED BY ABNORMAL RESULTS - Abnormal; Notable for the following components: URINE BLOOD 250 /uL (*) URINE RBC'S 21-50 (*) BACTERIA, URINE Moderate (*) All other components within normal limits CBC WITH AUTO DIFFERENTIAL - Abnormal; Notable for the following components: HEMATOCRIT (HCT) 47.7 (*) MPV 8.5 (*) NEUTROPHILS 40.3 (*) LYMPHOCYTES 47.4 (*) BASOPHILS 1.8 (*) ABSOLUTE LYMPHOCYTES 4.24 (*) ABSOLUTE BASOPHILS 0.16 (*) All other components within normal limits APTT (PTT) - Normal Narrative: Therapeutic range for unfractionated heparin at 0.3-0.7 U/mL is an aPTT value in the range of 71-100 seconds. Critical value for the PTT test is >= 122 seconds. PROTIME (PT) (PROTHROMBIN TIME) - Normal COMPLETE BLOOD COUNT (CBC) WITH DIFF Narrative: The following orders were created for panel order Complete Blood Count (CBC) WITH Diff. Procedure Abnormality Status --------- ------ CBC with Auto Differential[[id number]] Abnormal Final result Please view results for these tests on the individual orders. TYPE & SCREEN (CROSSMATCH CONVERTIBLE) ABO/RH (D) RECHECK US PELVIS COMPLETE WITH TRANSVAG AND COLOR DOPPLER LMT-NON OB Final Result IMPRESSION: 1. Endometrial thickness measuring up to 0.6 cm. Endometrium is somewhat heterogeneous in echotexture with a small amount of fluid noted within endometrial canal. Correlation with recent dilatation and curettage findings is recommended. Gynecologic consultation is recommended. 2. Unremarkable sonographic appearance of the ovaries. Complete Blood Count (CBC) WITH Diff Final Result CMP (Comprehensive Metabolic Panel) Final Result APTT (PTT) Final Result Protime (PT) (Prothrombin Time) Final Result URINALYSIS REFLEX IF INDICATED BY ABNORMAL RESULTS Final Result Procedures Imaging Results US PELVIS COMPLETE WITH TRANSVAG AND COLOR DOPPLER LMT-NON OB (Final result) Result time 12/26/19 13:52:34 Procedure changed from US PELVIS LIMITED WITH TRANSVAG & COLOR DOPPLER LMT-NON OB Final result by Claude Moore MD (12/26/19 13:52:34) Impression: IMPRESSION: 1. Endometrial thickness measuring up to 0.6 cm. Endometrium is somewhat heterogeneous in echotexture with a small amount of fluid noted within endometrial canal. Correlation with recent dilatation and curettage findings is recommended. Gynecologic consultation is recommended. 2. Unremarkable sonographic appearance of the ovaries. Narrative: EXAM DESCRIPTION: US PELVIS COMPLETE WITH TRANSVAG AND COLOR DOPPLER LMT-NON OB REASON FOR STUDY: Vaginal bleeding since a dilatation and curettage on 12/15/2019. Postmenopausal female. TECHNIQUE: Ultrasound of the pelvic contents was performed with transabdominal and transvaginal transducer. Grayscale and color doppler techniques were utilized. COMPARISON: None FINDINGS: UTERUS: The uterus is anteflexed. The uterus is homogenous in echotexture and measures 8.3 x 5.0 x 6.4 cm. ENDOMETRIUM: The endometrium measures 0.6 cm in thickness. The endometrium is somewhat heterogeneous in echotexture with a small amount of fluid noted within the endometrial canal. RIGHT OVARY: The right ovary measures 1.5 x 1.5 x 2.1 cm. There is documentation of color Doppler flow in the right ovary. The right ovary appears unremarkable. LEFT OVARY: The left ovary measures 2.5 x 1.1 x 1.6 cm. There is documentation of color Doppler flow in the left ovary. The left ovary appears unremarkable. PELVIC FLUID: No significant free pelvic fluid. THIS IS AN ELECTRONICALLY VERIFIED FINAL REPORT 12/26/2019 1:50 PM - Electronically signed by Claude Moore M.D. MARK: MARK Report ID: [id number] Reading Location: [id number] US PELVIS LIMITED WITH TRANSVAG & COLOR DOPPLER LMT-NON OB (Canceled) MDM Coding Clinical Impression 1. Postmenopausal bleeding Vitals stable. Hemoglobin is normal. Patient has a followup appointment with her obgyn 12/30/2019. Encouraged her to return if she is saturating a pad an hour for two consecutive hours. Patient is to continue provera. She expressed understanding and agreement to the tx plan. Cosigned by Raffi Leahy MD at 12/27/2019 7:12 AM HYDROELECTRIC STATION OPERATOR CHIEF OELECTRIC STATION OPERATOR CHIEF OELECTRIC STATION OPERATOR CHIEF * Stella Mckee RN - 12/26/2019 12:21 PM CST Pt to triage with complaints of vaginal bleeding since 12/15/2019. Pt states she had a D&C performed on that day, and she has been bleeding ever since. Pt states she is going through 1 pad/tampon ever hour. Pt states she had a D&C performed due to spotting. Pt denies being lightheaded or dizzy. Pt is alert and oriented x 4; speech is clear. OELECTRIC STATION OPERATOR CHIEF documented in this encounter Plan of Treatment Upcoming Encounters Date Type Department Care Team (Late st Contact Info) Description 12/18/2024 2:15 PM HYDROELECTRIC STATION OPERATOR CHIEF Office Visit [facility] - Neu[facility] [address] [place] [address] Adeel Covarrubias MD [address] [place] [address] documented as of this encounter Procedures Procedure Name Priority Date/Time Associated Diagnosis Comments US PELVIS COMPLETE WITH TRANSVAG AND COLOR DOPPLER LMT-NON OB STAT 12/26/2019 1:38 PM HYDROELECTRIC STATION OPERATOR CHIEF CBC WITH AUTO DIFFERENTIAL STAT 12/26/2019 12:57 PM HYDROELECTRIC STATION OPERATOR CHIEF TYPE & SCREEN (CROSSMATCH CONVERTIBLE) STAT 12/26/2019 12:57 PM HYDROELECTRIC STATION OPERATOR CHIEF APTT (PTT) STAT 12/26/2019 12:57 PM HYDROELECTRIC STATION OPERATOR CHIEF PROTIME (PT) (PROTHROMBIN TIME) STAT 12/26/2019 12:57 PM HYDROELECTRIC STATION OPERATOR CHIEF CMP (COMPREHENSIVE METABOLIC PANEL) STAT 12/26/2019 12:57 PM HYDROELECTRIC STATION OPERATOR CHIEF COMPLETE BLOOD COUNT (CBC) WITH DIFF STAT 12/26/2019 12:57 PM HYDROELECTRIC STATION OPERATOR CHIEF URINALYSIS REFLEX IF INDICATED BY ABNORMAL RESULTS STAT 12/26/2019 12:52 PM HYDROELECTRIC STATION OPERATOR CHIEF documented in this encounter Results * US PELVIS COMPLETE WITH TRANSVAG AND COLOR DOPPLER LMT-NON OB (12/26/2019 1:38 PM HYDROELECTRIC STATION OPERATOR CHIEF) Anatomical Region Laterality Modality Abdomen N/A Ultrasound 12/26/2019 1:50 PM HYDROELECTRIC STATION OPERATOR CHIEF Impressions 12/26/2019 1:52 PM HYDROELECTRIC STATION OPERATOR CHIEF IMPRESSION: ?? 1. ??Endometrial thickness measuring up to 0.6 cm. ??Endometrium is somewhat heterogeneous in echotexture with a small amount of fluid noted within endometrial canal. ??Correlation with recent dilatation and curettage findings is recommended. ??Gynecologic consultation is recommended. 2. ??Unremarkable sonographic appearance of the ovaries. Narrative 12/26/2019 1:52 PM HYDROELECTRIC STATION OPERATOR CHIEF EXAM DESCRIPTION: ??US PELVIS COMPLETE WITH TRANSVAG AND COLOR DOPPLER LMT-NON OB REASON FOR STUDY: ??Vaginal bleeding since a dilatation and curettage on 12/15/2019. ??Postmenopausal female. TECHNIQUE: ??Ultrasound of the pelvic contents was performed with transabdominal and transvaginal transducer. ??Grayscale and color doppler techniques were utilized. COMPARISON: ??None FINDINGS: ??UTERUS: The uterus is anteflexed. ??The uterus is homogenous in echotexture and measures 8.3 x 5.0 x 6.4 cm. ENDOMETRIUM: The endometrium measures 0.6 cm in thickness. ??The endometrium is somewhat heterogeneous in echotexture with a small amount of fluid noted within the endometrial canal. RIGHT OVARY: The right ovary measures 1.5 x 1.5 x 2.1 cm. There is documentation of color Doppler flow in the right ovary. The right ovary appears unremarkable. LEFT OVARY: The left ovary measures 2.5 x 1.1 x 1.6 cm. There is documentation of color Doppler flow in the left ovary. ??The left ovary appears unremarkable. PELVIC FLUID: No significant free pelvic fluid. THIS IS AN ELECTRONICALLY VERIFIED FINAL REPORT 12/26/2019 1:50 PM - Electronically signed by Claude FLORES: MARK D: ??12/26/2019 1:50 PM T: ??12/26/2019 1:50 PM Report ID: [id number] Reading Location: ??[id number] Procedure Note Claude Moore MD - 12/26/2019 EXAM DESCRIPTION: US PELVIS COMPLETE WITH TRANSVAG AND COLOR DOPPLER LMT-NON OB REASON FOR STUDY: Vaginal bleeding since a dilatation and curettage on 12/15/2019. Postmenopausal female. TECHNIQUE: Ultrasound of the pelvic contents was performed with transabdominal and transvaginal transducer. Grayscale and color doppler techniques were utilized. COMPARISON: None FINDINGS: UTERUS: The uterus is anteflexed. The uterus is homogenous in echotexture and measures 8.3 x 5.0 x 6.4 cm. ENDOMETRIUM: The endometrium measures 0.6 cm in thickness. The endometrium is somewhat heterogeneous in echotexture with a small amount of fluid noted within the endometrial canal. RIGHT OVARY: The right ovary measures 1.5 x 1.5 x 2.1 cm. There is documentation of color Doppler flow in the right ovary. The right ovary appears unremarkable. LEFT OVARY: The left ovary measures 2.5 x 1.1 x 1.6 cm. There is documentation of color Doppler flow in the left ovary. The left ovary appears unremarkable. PELVIC FLUID: No significant free pelvic fluid. THIS IS AN ELECTRONICALLY VERIFIED FINAL REPORT 12/26/2019 1:50 PM - Electronically signed by Claude FLORES: MARK Report ID: [id number] Reading Location: [id number] IMPRESSION: 1. Endometrial thickness measuring up to 0.6 cm. Endometrium is somewhat heterogeneous in echotexture with a small amount of fluid noted within endometrial canal. Correlation with recent dilatation and curettage findings is recommended. Gynecologic consultation is recommended. 2. Unremarkable sonographic appearance of the ovaries. us Bere [place] Page PAC IMG US ORDERABLES Final Resu lt * (ABNORMAL) CBC with Auto Differential (12/26/2019 12:57 PM HYDROELECTRIC STATION OPERATOR CHIEF) WBC 8.94 4.00 - 12.00 10(3)/mcL 12/26/2019 1:21 PM [facility] RBC 5.02 3.80 - 5.30 10(6)/mcL 12/26/2019 1:21 PM [facility] HEMOGLOBIN (HGB) 14.8 12.0 - 15.8 g/dL 12/26/2019 1:21 PM [facility] HEMATOCRIT (HCT) 47.7(H) 36.0 - 47.0 % 12/26/2019 1:21 PM [facility] MCV 95.0 82.0 - 96.0 fL 12/26/2019 1:21 PM [facility] MCH 29.5 26.0 - 34.0 pg 12/26/2019 1:21 PM [facility] MCHC 31.0 31.0 - 36.0 g/dL 12/26/2019 1:21 PM [facility] PLATELET COUNT 386 140 - 440 10(3)/mcL 12/26/2019 1:21 PM [facility] RDW 14.2 11.8 - 15.5 % 12/26/2019 1:21 PM [facility] MPV 8.5(L) 9.7 - 12.4 fL 12/26/2019 1:21 PM [facility] NEUTROPHILS 40.3(L) 47.0 - 73.0 % 12/26/2019 1:21 PM [facility] LYMPHOCYTES 47.4(H) 18.0 - 42.0 % 12/26/2019 1:21 PM [facility] MONOCYTES 7.7 4.0 - 12.0 % 12/26/2019 1:21 PM [facility] EOSINOPHILS 2.8 0.0 - 5.0 % 12/26/2019 1:21 PM [facility] BASOPHILS 1.8(H) 0.0 - 1.0 % 12/26/2019 1:21 PM [facility] ABSOLUTE NEUTROPHILS 3.60 1.60 - 7.70 10(3)/mcL 12/26/2019 1:21 PM HYDROELECTRIC STATION OPERATOR CHIEF [facility] ABSOLUTE LYMPHOCYTES 4.24(H) 1.30 - 3.20 10(3)/[facility] 12/26/2019 1:21 PM HYDROELECTRIC STATION OPERATOR CHIEF [facility] ABSOLUTE MONOCYTES 0.69 0.20 - 1.00 10(3)/[facility] 12/26/2019 1:21 PM HYDROELECTRIC STATION OPERATOR CHIEF [facility] ABSOLUTE EOSINOPHIL 0.25 0.00 - 0.40 10(3)/[facility] 12/26/2019 1:21 PM HYDROELECTRIC STATION OPERATOR CHIEF [facility] ABSOLUTE BASOPHILS 0.16(H) 0.00 - 0.10 10(3)/[facility] 12/26/2019 1:21 PM HYDROELECTRIC STATION OPERATOR CHIEF [facility] NRBC PER 100 WBC 0 12/26/19 20 1:21 PM HYDROELECTRIC STATION OPERATOR CHIEF [facility] Blood specimen (specimen) Venipuncture / Unknown 12/26/2019 12:57 PM HYDROELECTRIC STATION OPERATOR CHIEF 12/26/2019 1:17 PM HYDROELECTRIC STATION OPERATOR CHIEF us Bere Méndez Page PAC HEMATOLOGY ORDERABLES Final Result [facility] [address] [place] [address] * TYPE & SCREEN (CROSSMATCH CONVERTIBLE) (12/26/2019 12:57 PM HYDROELECTRIC STATION OPERATOR CHIEF) ABO TYPING A 12/26/2019 2:09 PM HYDROELECTRIC STATION OPERATOR CHIEF [facility] RH Positive 12/26/2019 2:09 PM HYDROELECTRIC STATION OPERATOR CHIEF [facility] ABSC Negative 12/26/2019 2:09 PM HYDROELECTRIC STATION OPERATOR CHIEF [facility] Blood specimen (specimen) Venipuncture / Unknown 12/26/2019 12:57 PM HYDROELECTRIC STATION OPERATOR CHIEF 12/26/2019 1:17 PM HYDROELECTRIC STATION OPERATOR CHIEF Bere Méndez Page PAC BLOOD BANK ORDERABLES Edited Result - Final [facility] [address] [place] [address] * Protime (PT) (Prothrombin Time) (12/26/2019 12:57 PM HYDROELECTRIC STATION OPERATOR CHIEF) PROTIME-PATIENT 11.7 11.6 - 14.8 sec 12/26/2019 1:34 PM HYDROELECTRIC STATION OPERATOR CHIEF [facility] INR 0.9 0.9 - 1.2 12/26/2019 1:34 PM HYDROELECTRIC STATION OPERATOR CHIEF [facility] Comment: Therapeutic Ranges INR = 2.0-3.0: Venous thromb, atrial fib, pul embolism, tissue heart valve, ami. INR = 2.5-3.5: Mechanical heart valve Critical value for INR is >/= 4.5 Blood specimen (specimen) Venipuncture / Unknown 12/26/2019 12:57 PM HYDROELECTRIC STATION OPERATOR CHIEF 12/26/2019 1:17 PM HYDROELECTRIC STATION OPERATOR CHIEF Bere Simon PAC HEMATOLOGY ORDERABLES Final Result Performing Organization Address [facility] Co de Phone Number [facility] [address] [place] [address] * APTT (PTT) (12/26/2019 12:57 PM HYDROELECTRIC STATION OPERATOR CHIEF) Pathologist [facility] PTT 28 24 - 36 sec 12/26/2019 1:34 PM HYDROELECTRIC STATION OPERATOR CHIEF [facility] Blood specimen (specimen) Venipuncture / Unknown 12/26/2019 12:57 PM HYDROELECTRIC STATION OPERATOR CHIEF 12/26/2019 1:17 PM HYDROELECTRIC STATION OPERATOR CHIEF Narrative [facility] - 12/26/2019 1:34 PM HYDROELECTRIC STATION OPERATOR CHIEF Therapeutic range for unfractionated heparin at 0.3-0.7 U/mL is an aPTT value in the range of 71-100 seconds. Critical value for the PTT test is >= [address] [facility] HEMATOLOGY ORDERABLES Final Result Performing Organization Address [facility] Co de Phone Number [facility] [address] [place] [address] * (ABNORMAL) CMP (Comprehensive Metabolic Panel) (12/26/2019 12:57 PM HYDROELECTRIC STATION OPERATOR CHIEF) SODIUM 138 136 - 144 mmol/L 12/26/2019 1:40 PM [facility] POTASSIUM 4.5 3.5 - 5.1 mmol/L 12/26/2019 1:40 PM [facility] CHLORIDE 99(L) 100 - 110 mmol/L 12/26/2019 1:40 PM [facility] CO2, VENOUS 32 22 - 32 mmol/L 12/26/2019 1:40 PM [facility] ANION GAP 11.5 8.0 - 20.0 mmol/L 12/26/2019 1:40 PM [facility] GLUCOSE 104(H) 70 - 99 mg/dL 12/26/2019 1:40 PM [facility] BUN 11 8 - 23 mg/dL 12/26/2019 1:40 PM [facility] CREATININE, BLOOD 0.62 0.60 - 1.10 mg/dL 12/26/2019 1:40 PM [facility] BUN/CREATININE RATIO 18 12 - 20 ratio 12/26/2019 1:40 PM [facility] TOTAL PROTEIN 7.1 6.0 - 8.3 g/dL 12/26/2019 1:40 PM [facility] ALBUMIN 4.4 3.5 - 5.2 g/dL 12/26/2019 1:40 PM [facility] Comment: The colormetric methods used for the determination of Albumin may lead to falsely elevated test results in patients suffering from renal failure or insufficiency due to interference with other proteins. A/G RATIO 1.6 1.0 - 2.0 12/26/2019 1:40 PM [facility] CALCIUM 9.7 8.9 - 10.3 mg/dL 12/26/2019 1:40 PM [facility] T BILI <=0.2 <=1.2 mg/dL 12/26/2019 1:40 PM [facility] SGOT (AST) 20 <=32 U/L 12/26/2019 1:40 PM [facility] [facility] SGPT (ALT) 23 <=33 U/L 12/26/2019 1:40 PM HYDROELECTRIC STATION OPERATOR CHIEF [facility] ALKALINE PHOSPHATASE 52 35 - 105 U/L 12/26/2019 1:40 PM HYDROELECTRIC STATION OPERATOR CHIEF [facility] GFR, EST. NONAFRICAN >60 >=60 12/26/2019 1:40 PM HYDROELECTRIC STATION OPERATOR CHIEF [facility] GFR, EST. >60 >=60 020 1:40 PM HYDROELECTRIC STATION OPERATOR CHIEF [facility] Comment: Creatinine Clearance is the preferred criteria for selecting drug dose adjustments in renally impaired patients. ??The GFR is provided as additional pertinent clinical information. GFR is reported in mL/min/1.73 sq m. Blood specimen (specimen) Venipuncture / Unknown 12/26/2019 12:57 PM HYDROELECTRIC STATION OPERATOR CHIEF 12/26/2019 1:17 PM HYDROELECTRIC STATION OPERATOR CHIEF Bere Clackamas Page PAC CHEMISTRY ORDERABLES Final R esult [facility] [address] [place] [address] * (ABNORMAL) URINALYSIS REFLEX IF INDICATED BY ABNORMAL RESULTS (12/26/2019 12:52 PM HYDROELECTRIC STATION OPERATOR CHIEF) SPECIFIC GRAVITY 1.010 1.003 - 1.030 12/26/2019 1:31 PM HYDROELECTRIC STATION OPERATOR CHIEF [facility] URINE PH 6.0 5.0 - 9.0 12/26/2019 1:31 PM HYDROELECTRIC STATION OPERATOR CHIEF [facility] WBC ESTERASE Negative Negative 12/26/2019 1:31 PM HYDROELECTRIC STATION OPERATOR CHIEF [facility] NITRITE Negative Negative 12/26/2019 1:31 PM HYDROELECTRIC STATION OPERATOR CHIEF [facility] PROTEIN, RANDOM URINE Negative Negative 12/26/2019 1:31 PM HYDROELECTRIC STATION OPERATOR CHIEF [facility] URINE GLUCOSE, QUAL Negative Negative 12/26/2019 1:31 PM HYDROELECTRIC STATION OPERATOR CHIEF [facility] URINE KETONES Negative Negative 12/26/2019 1:31 PM HYDROELECTRIC STATION OPERATOR CHIEF [facility] UROBILINOGEN Normal Normal mg/dL 12/26/2019 1:31 PM HYDROELECTRIC STATION OPERATOR CHIEF [facility] URINE BILIRUBIN Negative Negative 0 1:31 PM HYDROELECTRIC STATION OPERATOR CHIEF [facility] URINE BLOOD 250 /uL(A) Negative sheila/ul 12/26/2019 1:31 PM HYDROELECTRIC STATION OPERATOR CHIEF [facility] URINALYSIS COLOR Yellow 12/26/19 20 1:31 PM HYDROELECTRIC STATION OPERATOR CHIEF [facility] URINALYSIS CLARITY Slightly Cloudy 12/26/2019 1:31 PM HYDROELECTRIC STATION OPERATOR CHIEF [facility] WBC (Urine) 0-5 Negative, 0-5 /hpf 12/26/2019 1:31 PM HYDROELECTRIC STATION OPERATOR CHIEF [facility] URINE RBC'S 21-50(A) Negative, 0-2 /hpf 12/26/2019 1:31 PM HYDROELECTRIC STATION OPERATOR CHIEF [facility] EPITHELIAL CELLS Small amount /lpf 2019 1:31 PM HYDROELECTRIC STATION OPERATOR CHIEF [facility] BACTERIA, URINE Moderate(A) Negative /hpf 12/26/2019 1:31 PM HYDROELECTRIC STATION OPERATOR CHIEF [facility] Urine specimen (specimen) URINE SPECIMEN / Unknown Non-Phlebotomy Collection / Unknown 12/26/2019 12:52 PM HYDROELECTRIC STATION OPERATOR CHIEF 12/26/2019 1:20 PM HYDROELECTRIC STATION OPERATOR CHIEF us Bere Méndez Page PAC URINE ORDERABLES Final Resul t [facility] [address] [place] [address] documented in this encounter Visit Diagnoses Diagnosis Postmenopausal bleeding- Primary documented in this encounter Care Teams Sales Demonstrator Relationship Specialty Start Date End Date Watson Perry MD [address] [place] [id number] PCP - General Family Medicine 01/25/18 documented as of this encounter
--- OUTSIDE RECORDS SUMMARY | 2024-11-23 15:08 | XMS_ITS | Encounter Summary ---
Author Organization [facility] [employer] Care Team Providers Care Ssis Developer Name Role Phone Watson Perry MD Primary Care Provider [phone] Encounter Details Date Type Department Care Team (Latest Contact Info) Description 03/05/2020 Travel Social History Tobacco Use Types Packs/Day [...] on file Legal Sex Female 9:54 AM MACHINE SNELLER Gender Identity Not on file Sexual Orientation [...] st Contact Info) Description 12/18/2024 2:15 PM MACHINE SNELLER Office Visit [facility] - [facility] [address] [place] [address] Adeel Covarrubias MD [address] [place] [phone] documented as of this encounter Visit Diagnoses Not on filedocumented in this encounter Care Teams Ssis Developer Relationship Specialty Start Date End Date Watson Perry MD [address] [place] [address] PCP - General Family Medicine 01/25/18 documented as of this encounter
--- OUTSIDE RECORDS SUMMARY | 2024-11-23 15:10 | XMS_ITS | Encounter Summary ---
Author Organization [facility] Address [address] [place] [address] Care Team Providers Care Traveling Phlebotomist Name Role Phone Watson Perry MD Primary Care Provider [phone] Reason for Visit * MRI/CAT/PET Scan (Routine) - Pending Review Specialty Diagnoses / Procedures Referred By Contac t Referred To Contact Diagnoses Right knee pain Procedures MSK MR Outside Reference Chica Naik PA [address] [facility] [address] [place] [address] Phone: tel: fax: [facility] [address] [place] [address] Phone: tel: Referral ID Status Reason Start Date Expiration Date V isits Requested Visits Authorized [id number] Pending Review 10/22/2024 11/21/2025 1 1 Encounter Details Date Type Department Care Team (Latest Contact Info) Description 10/22/2024 10:29 AM MOTORCYCLE POLICE OFFICER - 10/22/2024 11:59 PM MOTORCYCLE POLICE OFFICER Hospital Encounter [facility] [address] [place] [address] [phone] Discharge Disposition: Discharge to home or self care Social History Tobacco Use Types Packs/Day Years Used Date Smoking Tobacco: Former Cigarettes 1 50 0 05/18/1972 - 05/18/2022 Smokeless Tobacco: Never Alcohol Use Standard Drinks/Week Comments No 0 (1 standard drink = 0.6 oz pur e alcohol) [facility] Utilities Answer Date Recorded In the past 12 months has th e electric, gas, oil, or water company threatened to shut off services in your home? No 02/20/2024 Social Connection and Isolat ion Panel [NHANES] Answer Date Recorded In a typical week, how many times do you talk on the phone with family, friends, or neighbors? More than three times a week 02/20/2024 How often do you get togethe r with friends or relatives? More than three times a week 02/20/2024 How often do you attend chur ch or lutheran services? Never 02/20/2024 Do you belong to any clubs o r organizations such as holiness groups, unions, fraternal or athletic groups, or school groups? No 02/20/2024 How often do you attend meet ings of the clubs or organizations you belong to? Never 02/20/2024 Are you , , di vorced, , never , or living with a partner? 02/20/2024 AUDIT-C Answer Date Recorded Q1: How often do you have a drink containing alc ohol? Never 03/29/2023 Average Number of Drinks Not on file 023 Frequency of Binge Drinking Not on file 03/19 Overall Financial Resource Strain (CARDIA) Answe r Date Recorded How hard is it for you to pa y for the very basics like food, housing, medical care, and heating? Not hard at all 02/20/2024 Hunger Vital Sign Answer Date Recorded Within the past 12 months, y ou worried that your food would run out before you got the money to buy more. Never true 02/20/20 24 Within the past 12 months, t he food you bought just didn't last and you didn't have money to get more. Never true 02/20/2024 PRAPARE - Transportation Answer Date Re corded In the past 12 months, has l ack of transportation kept you from medical appointments or from getting medications? No 01/2024 In the past 12 months, has l ack of transportation kept you from meetings, work, or from getting things needed for daily living? No 02/20/2024 Housing Stability Vital Sign Answer Ricardo e Recorded In the last 12 months, was t here a time when you were not able to pay the mortgage or rent on time? No 02/20/2024 In the last 12 months, how many places have you lived? 1 02/20/2024 In the last 12 months, was t here a time when you did not have a steady place to sleep or slept in a residential (including now)? No 02/20/2024 Personal Safety Answer Date Recorded Have you ever been in or are you currently in a harmful physical or emotional relationship or is someone making you feel afraid or unsafe? Denies 02/18/2024 Education Answer Date Recorded What is the highest level of school you have completed or the highest degree you have received? High school graduate 02/20/2024 Comments Unknown Sex and Gender Information Value Date Recorded Sex Assigned at Not on file Legal Sex Female 1:09 PM MOTORCYCLE POLICE OFFICER Gender Identity Not on file Sexual Orientation Not on file documented as of this encounter Medications at Time of Discharge aspirin 81 mg enteric coated tablet Take 1 tablet (81 mg total) by mouth daily calcium carbonate (OS-ERUM) 1,500 mg (600 mg elemental) tablet Take 1 tablet (1,500 mg total) by mouth 2 (two) times a day carbidopa-levodo pa CR (SINEMET CR) 25-100 mg per CR tablet Take 1 tablet by mouth 2 (two) times a day citalopram (CeleXA) 20 mg tablet Take 1 tablet (20 mg total) by mouth daily clonazePAM (KlonoPIN) 1 mg tablet Take 1 tablet (1 mg total) by mouth daily esomeprazole DR (NexIUM) 20 mg capsule Take 1 capsule (20 mg total) by mouth daily before breakfast furosemide (LASIX) 20 mg tablet Take 0.5 tablets (10 mg total) by mouth daily magnesium hydroxide (MILK OF MAGNESIA) suspension 400 mg/5 mL Take 30 mL by mouth daily as needed (constipation) 02/23/2024 multivitamin capsule Take 1 capsule by mouth daily omega 1-vuh-lbf-fish oil 1,000 mg (120 mg-180 mg) capsule Take 1 capsule (1,000 mg total) by mouth 2 (two) times a day 04/01/2023 omega-3 fatty acids-fish oil 300-1,000 mg capsule Take 2 capsules (2 g total) by mouth daily pramipexole (MIRAPEX) 1.5 mg tablet Take 1 tablet (1.5 mg total) by mouth 2 (two) times a day primidone (MYSOLINE) 250 mg tablet Take 1 tablet (250 mg total) by mouth daily 12/15/2022 propranolol LA (INDERAL LA) 60 mg 24 hr capsule Take 1 capsule (60 mg total) by mouth 2 (two) times a day rosuvastatin (CRESTOR) 10 mg tablet Take 1 tablet (10 mg total) by mouth nightly at bedtime. 11/16/2022 traMADoL (ULTRAM) 50 mg tablet Take 1 tablet (50 mg total) by mouth every 6 (six) hours as needed for pain Trelegy Ellipta 200-62.5-25 mcg inhaler INHALE 1 PUFF ONCE DAILY . APPOINTMENT REQUIRED FOR FUTURE REFILLS 60 each 04/16/2024 albuterol HFA (PROVENTIL HFA,VENTOLIN HFA,PROAIR HFA) 90 mcg/actuation inhaler Inhale 2 puffs every 6 (six) hours as needed for wheezing or shortness of breath 02/23/2024 bisacodyl EC (DULCOLAX EC) 5 mg EC tabletIndication s:constipation Take 2 tablets (10 mg total) by mouth daily as needed for constipation (If no results 24 hours after milk of magnesia) 02/23/2024 documented as of this encounter Discharge Disposition Disposition Code Departure Means Destination Discharge to home or self care documented in this encounter Plan of Treatment Not on file documented as of this encounter Procedures Procedure Name Priority Date/Time Associated Diagnosis Comments VENKATESH MR OUTSIDE REFERENCE Routine 10/22/2024 10:29 AM MOTORCYCLE POLICE OFFICER documented in this encounter Results * VENKATESH MR Outside Reference (10/22/2024 10:29 AM MOTORCYCLE POLICE OFFICER) Impressions [facility] - 10/22/2024 10:30 AM MOTORCYCLE POLICE OFFICER These images are for Reference purposes only and have not been reviewed by [facility]. ??There will be no report generated by a [facility] Radiologist. Narrative [facility] - 10/22/2024 10:30 AM MOTORCYCLE POLICE OFFICER EXAMINATION: ??Images For Reference Purposes Only us Chica FRENCH IMG MRI PROCEDURES Robert al Result [facility] documented in this encounter Visit Diagnoses Not on filedocumented in this encounter Care Teams Traveling Phlebotomist Relationship Specialty Start Date End Date Watson Perry MD PCP - General Family Medicine 01/24/18 documented as of this encounter
--- OUTSIDE RECORDS SUMMARY | 2024-11-23 15:10 | XMS_ITS | Referral Summary ---
Author Organization [facility] Address [address] [place] [address] Care Team Providers Care Field Crop Farmer Name Role Phone Watson Perry MD Primary Care Provider [phone] Encounters Date Type Department Care Team Description 10/22/2024 10:29 AM FUR OPERATOR - 10/22/2024 11:59 PM FUR OPERATOR Hospital Encounter [facility] [address] [place] [id number] Discharge Disposition: Discharge to home or self care 10/22/2024 10:26 AM FUR OPERATOR - 10/22/2024 11:59 PM FUR OPERATOR Hospital Encounter [facility] ([facility]) [address] [place] [phone] Discharge Disposition: Discharge to home or self care 10/22/2024 8:38 AM FUR OPERATOR - 10/22/2024 11:59 PM FUR OPERATOR Hospital Encounter [address] [place] [address] Right knee pain, unspecified chronicity Discharge Disposition: Discharge to home or self care 10/22/2024 8:45 AM FUR OPERATOR Office Visit [facility] [address] [place] [address] [address] [place] [address] Chica Naik PA Right knee pain, unspecified chronicity (Primary Dx); Primary osteoarthritis of right knee from Last 3 Months Allergies Active Allergy Reactions Criticality Noted Date Comments Ibuprofen Rash Medium 02/01/2018 Medications pramipexole (MIRAPEX) 1.5 mg tablet Take 1 tablet (1.5 mg total) by mouth 2 (two) times a day Active propranolol LA (INDERAL LA) 60 mg 24 hr capsule Take 1 capsule (60 mg total) by mouth 2 (two) times a day Active clonazePAM (KlonoPIN) 1 mg tablet Take 1 tablet (1 mg total) by mouth daily Active esomeprazole DR (NexIUM) 20 mg capsule Take 1 capsule (20 mg total) by mouth daily before breakfast Active citalopram (CeleXA) 20 mg tablet Take 1 tablet (20 mg total) by mouth daily Active rosuvastatin (CRESTOR) 10 mg tablet Take 1 tablet (10 mg total) by mouth nightly at bedtime. 2 Active primidone (MYSOLINE) 250 mg tablet Take 1 tablet (250 mg total) by mouth daily 3 Active furosemide (LASIX) 20 mg tablet Take 0.5 tablets (10 mg total) by mouth daily Active multivitamin capsule Take 1 capsule by mouth daily Active calcium carbonate (OS-ERUM) 1,500 mg (600 mg elemental) tablet Take 1 tablet (1,500 mg total) by mouth 2 (two) times a day Active omega 7-bzl-geh-fish oil 1,000 mg (120 mg-180 mg) capsule Take 1 capsule (1,000 mg total) by mouth 2 (two) times a day 3 Active magnesium hydroxide (MILK OF MAGNESIA) suspension 400 mg/5 mL Take 30 mL by mouth daily as needed (constipation) 4 Active bisacodyl EC (DULCOLAX EC) 5 mg EC tabletIndicatio ns:constipation Take 2 tablets (10 mg total) by mouth daily as needed for constipation (If no results 24 hours after milk of magnesia) 4 Active Additional Information Patient not taking.Reported on 10/22/2024 albuterol HFA (PROVENTIL HFA,VENTOLIN HFA,PROAIR HFA) 90 mcg/actuation inhaler Inhale 2 puffs every 6 (six) hours as needed for wheezing or shortness of breath 4 02/23/20 25 Active Additional Information Patient not taking.Reported on 10/22/2024 Chris Ellipta 200-62.5-25 mcg inhaler INHALE 1 PUFF ONCE DAILY . APPOINTMENT REQUIRED FOR FUTURE REFILLS 60 each 4 Active aspirin 81 mg enteric coated tablet Take 1 tablet (81 mg total) by mouth daily Active carbidopa-levod opa CR (SINEMET CR) 25-100 mg per CR tablet Take 1 tablet by mouth 2 (two) times a day Active omega-3 fatty acids-fish oil 300-1,000 mg capsule Take 2 capsules (2 g total) by mouth daily Active traMADoL (ULTRAM) 50 mg tablet Take 1 tablet (50 mg total) by mouth every 6 (six) hours as needed for pain Active Active Problems Problem Noted Date Diagnosed Date Pneumonia due to organism 02/19/2024 Chronic pain of right knee 02/19/2024 Moseley's cyst of knee, right 02/19/2024 Centrilobular emphysema 02/19/2024 Hyperlipidemia 02/19/2024 GERD without esophagitis 02/19/2024 Anxiety 02/19/2024 Essential tremor 02/19/2024 Depression 02/19/2024 Pneumonia of left lower lobe due to infectious o rganism 02/18/2024 COPD exacerbation 03/29/2023 Oral lesion 06/21/2018 Assessment & Plan (06/21/2018 1:01 PM CDT): Today's ear nose and throat examination demonstrated no abnormality within the upper aerodigestive tract. Patient's hard and soft palate were normal. There was no mucosal alterations or asymmetries. There was no signs of any inflammatory or infectious process. Patient was reassured that her problem has since resolved. Patient follow back up as needed. 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 She is very happy with the postoperative outcome. The operative site is healed up nicely. 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 Patient is noted to have a fairly large symptomatic roger along the right mandibular alveolus adjacent to tooth #28. 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 It has gradually increased in size. Patient dentist recommend removal. No recent diagnostic imaging of the mandible has been performed. We will schedule patient for an updated mandible series x-rays. Discussed surgical removal with the patient. All questions were answered to what appeared to be patient's understanding and satisfaction. After the procedure was explained in full the potential risk, complications, benefits and alternatives patient would like to proceed. Patient will be scheduled in a timely fashion. Hypoxia Lymphadenopathy Multifocal pneumonia Social History Tobacco Use Types Packs/Day Years Used Date Smoking Tobacco: Former Cigarettes 1 50 0 05/18/1972 - 05/18/2022 Smokeless Tobacco: Never Tobacco Cessation:Counseling Given: Not Answered Alcohol Use Standard Drinks/Week Comments No 0 (1 standard drink = 0.6 oz pur e alcohol) [facility] [employer] Answer Date Recorded In the past 12 months has [employer], gas, oil, or water [employer] threatened to shut off services in your [...] 02/20/2024 How often do you attend chur or islam services? Never 02/20/2024 Do you belong to any clubs o r organizations such as nondenominational groups, unions, fraternal or athletic groups, or [...] place to sleep or slept in a [place] (including now)? No 02/20/2024 Personal Safety Answer [...] on file Legal Sex Female 1:09 PM FUR OPERATOR Gender Identity Not on file Sexual Orientation Not on file Last Filed Vital Signs Vital Sign Reading Time Taken Comments Blood Pressure 127/76 02/23/2024 7:46 AM CDT Pulse 64 02/23/2024 7:46 AM CDT Temperature 36.2 ??C (97.1 ??F) 02/23/2024 7:46 AM CD T Respiratory Rate 18 02/23/2024 7:46 AM CDT Oxygen Saturation 90% 02/23/2024 7:46 AM CDT Inhaled Oxygen Concentration - - Weight 81.2 kg (179 lb 0.2 oz) 02/23/2024 6:30 A M CDT Height 165.1 cm (5' 5 ) 02/19/2024 1:13 PM CDT Body Mass Index 29.79 02/19/2024 1:13 PM CDT Plan of Treatment Not on file Procedures Procedure Name Priority Date/Time Associated Diagnosis Comments MSK MR OUTSIDE REFERENCE Routine 10/22/2024 10:29 AM FUR OPERATOR MSK MR OUTSIDE REFERENCE Routine 10/22/2024 10:26 AM FUR OPERATOR XR KNEE RIGHT 4 OR MORE VIEWS Schedule Routine, Read Routine (OP Routine) 10/22/2024 8:56 AM FUR OPERATOR Right knee pain, unspecified chronicity from Last 3 Months Results * MSK MR Outside Reference (10/22/2024 10:29 AM FUR OPERATOR) Impressions [facility] - 10/22/2024 10:30 AM FUR OPERATOR These images are for Reference purposes only and have not been reviewed by [facility]. ??There will be no report generated by a [facility]iologist. Narrative [facility] - 10/22/2024 10:30 AM FUR OPERATOR EXAMINATION: ??Images For Reference Purposes Only Chica FRENCH IM MRI PROCEDURES Fin al Result [facility] * MSK MR Outside Reference (10/22/2024 10:26 AM FUR OPERATOR) Impressions [facility] - 10/22/2024 10:26 AM FUR OPERATOR These images are for Reference purposes only and have not been reviewed by [facility]. ??There will be no report generated by a [facility]iologist. Narrative [facility] - 10/22/2024 10:26 AM FUR OPERATOR EXAMINATION: ??Images For Reference Purposes Only Chica FRENCH IMG MRI PROCEDURES Fin al Result [facility] * XR Knee Right 4 or More Views (10/22/2024 8:56 AM FUR OPERATOR) Anatomical Region Laterality Modality Lower Extremities, Knee Right Digital Radiography 10/22/2024 9:52 AM FUR OPERATOR Impressions 10/22/2024 9:52 AM FUR OPERATOR FINDINGS/IMPRESSION: Moderate to severe right lateral compartment arthrosis. ??No acute fracture. ??There is a small joint effusion. ??Soft tissues are unremarkable. Electronically signed by: Raffi Montes II, D.O. Narrative 10/22/2024 9:52 AM FUR OPERATOR EXAMINATION: XR KNEE RIGHT 4 OR MORE VIEWS DATE: 10/22/2024 9:15 AM HISTORY: Hip pain. COMPARISON: None. Procedure Note Raffi Montes II, DO - 10/22/2024 EXAMINATION: XR KNEE RIGHT 4 OR MORE VIEWS DATE: 10/22/2024 9:15 AM HISTORY: Hip pain. COMPARISON: None. IMPRESSION: FINDINGS/IMPRESSION: Moderate to severe right lateral compartment arthrosis. No acute fracture. There is a small joint effusion. Soft tissues are unremarkable. Electronically signed by: Raffi Montes II, D.O. Chica FRENCH IMG XR PROCEDURES Tiffanie l Result from Last 3 Months Insurance [facility] AET MEDICARE AET MEDICARE AET MEDICARE Advance Directives For more information, please contact: [phone] * Full Code (Latest Code Status on File) Date Activated Date Inactivated Comments 02/19/2024 8:07 AM 02/23/2024 6:29 PM * Full Code Date Activated Date Inactivated Comments 03/29/2023 6:03 PM 04/01/2023 4:22 PM Care Teams Field Crop Farmer Relationship Specialty Start Date End Date Watson Perry MD PCP - General Family Medicine 01/24/18
--- OUTSIDE RECORDS SUMMARY | 2024-11-23 15:10 | XMS_ITS | Clinical Summary ---
Author Organization [facility] Address [address] [place] [id number] Care Team Providers Care Coating Machine Feeder Name Role Phone Watson Perry MD Primary Care Provider [phone] Allergies Active Allergy Reactions Criticality Noted Date [...] 2 (two) times a day Active omega 6-jra-ell-fish oil 1,000 mg (120 mg-180 mg) capsule [...] Additional Information Patient not taking.Reported on 10/22/2024 Trelegy Ellipta 200-62.5-25 mcg inhaler INHALE 1 PUFF ONCE DAILY . APPOINTMENT REQUIRED FOR FUTURE REFILLS 60 each Active aspirin 81 mg enteric coated tablet [...] a timely fashion. Hypoxia Lymphadenopathy Multifocal pneumonia Encounters Date Type Department Care Team Description 10/22/2024 10:29 AM BUS SYSTEM OPERATOR - 10/22/2024 11:59 PM BUS SYSTEM OPERATOR Hospital Encounter [facility] [address] [place] [address] Discharge Disposition: Discharge to home or self care 10/22/2024 10:26 AM BUS SYSTEM OPERATOR - 10/22/2024 11:59 PM BUS SYSTEM OPERATOR Hospital Encounter [facility] [address] [place] [address] Discharge Disposition: Discharge to home or self care 10/22/2024 8:45 AM BUS SYSTEM OPERATOR Office Visit [facility] Orthopaedic Surgery [address] [place] [address] [address] [place] [address] Chica Naik PA Right knee pain, unspecified chronicity (Primary Dx); Primary osteoarthritis of right knee 10/22/2024 8:38 AM BUS SYSTEM OPERATOR - 10/22/2024 11:59 PM BUS SYSTEM OPERATOR Hospital Encounter [facility] [address] [facility] [address] [place] [address] Right knee pain, unspecified chronicity Discharge Disposition: Discharge to home or self care from Last 3 Months Surgical History Surgery Date Site/Laterality Comments OTHER SURGICAL HISTORY basal cell carcinoma THUMB SURGERY Arthroplasty BUNIONECTOMY Right ELBOW SURGERY Right Tendonitis Medical History Medical History Date Comments Deviated nasal septum Tachycardia Peptic ulceration Cancer (CMS/HCC) (HCC) Skin BCC Occasional tremors Hands and Hea d, going to see Neurologist COPD (chronic obstructive pu lmonary disease) (HCC) Family History Medical History Relation Name Comments Scleroderma Daughter Hypertension Father Parkinsonism Father Cancer Mother Heart disease Paternal Grandfather Relation Name Status Comments Daughter Alive Father Mother Paternal Grandfather Social History Tobacco Use Types Packs/Day Years Used Date Smoking Tobacco: Former Cigarettes 1 50 0 05/18/1972 - 05/18/2022 Smokeless Tobacco: Never Tobacco Cessation:Counseling Given: Not Answered Alcohol Use Standard Drinks/Week Comments No 0 (1 standard drink = 0.6 oz pur e alcohol) [facility] Utilities Answer Date Recorded In the past 12 months has [employer], [employer], oil, or water [employer] threatened to shut off services in your [...] How often do you attend chur or baptist services? Never 02/20/2024 Do you belong to any clubs o r organizations such as restorationism groups, unions, fraternal or athletic groups, or [...] place to sleep or slept in a fci (including now)? No 02/20/2024 Personal Safety Answer [...] on file Legal Sex Female 1:09 PM BUS SYSTEM OPERATOR Gender Identity Not on file Sexual Orientation Not on file Obstetrics History Last Filed Vital Signs Vital Sign Reading [...] 02/19/2024 1:13 PM CDT Plan of Treatment Health Maintenance Due Date Last Done Comments Breast Cancer Screening-Mammogram 1952 Colon Cancer Screening-Colonoscopy 1950 Depression Screening 1952 Hepatitis C Screening 1952 Osteoporosis Screening-Bone Density Scan 1952 Hepatitis B Screening 1970 Lung Cancer Screening 2002 Well Visit 65+ 2017 Covid-19 Vaccine (2023-2 5 season) 2024 09/16/2021, 08/17/2021, 01/28/2021, Additional history exists Influenza Vaccine (#1) 2024 , 08/24/2020, 09/01/2019, Additional history exists Fall Risk Assessment 02/22/2025 02/23/2024 DTaP/Tdap/Td Vaccine (2 - Td or Tdap) 03/17/2029 03/17/2019 Pneumococcal vaccine 65+ Completed 10/27/2019, 08/20 Zoster Vaccine Completed 11/07/2019, 08/19, 09/01/2019, Additional history exists Procedures Procedure Name Priority Date/Time Associated Diagnosis Comments VENKATESH HERNANDEZ OUTSIDE REFERENCE Routine 10/22/2024 10:29 AM BUS SYSTEM OPERATOR VENKATESH HERNANDEZ OUTSIDE REFERENCE Routine 10/22/2024 10:26 AM BUS SYSTEM OPERATOR XR KNEE RIGHT 4 OR MORE VIEWS Schedule Routine, Read Routine (OP Routine) 10/22/2024 8:56 AM BUS SYSTEM OPERATOR Right knee pain, unspecified chronicity from Last 3 Months Results * MSK MR Outside Reference (10/22/2024 10:29 AM BUS SYSTEM OPERATOR) Impressions RAD_[facility] - 10/22/2024 10:30 AM BUS SYSTEM OPERATOR These images are for Reference purposes only and have not been reviewed by [facility]iology. ??There will be no report generated by a [facility] Radiologist. Narrative RAD_PACS[facility] - 10/22/2024 10:30 AM BUS SYSTEM OPERATOR EXAMINATION: ??Images For Reference Purposes Only Chica FRENCH IMG MRI PROCEDURES Fin al Result Performing Organization Address [facility] de Phone Number [email or web address] * MSK MR Outside Reference (10/22/2024 10:26 AM BUS SYSTEM OPERATOR) Impressions RAD_[facility] - 10/22/2024 10:26 AM BUS SYSTEM OPERATOR These images are for Reference purposes only and have not been reviewed by [facility] Radiology. ??There will be no report generated by a [facility] Radiologist. Narrative RAD_PACS_[facility] - 10/22/2024 10:26 AM BUS SYSTEM OPERATOR EXAMINATION: ??Images For Reference Purposes Only Chica FRENCH IMG MRI PROCEDURES Fin al Result Performing Organization Address [facility] Co de Phone Number [email or web address] * XR Knee Right 4 or More Views (10/22/2024 8:56 AM BUS SYSTEM OPERATOR) Anatomical Region Laterality Modality Lower Extremities, Knee Right Digital Radiography 10/22/2024 9:52 AM BUS SYSTEM OPERATOR Impressions 10/22/2024 9:52 AM BUS SYSTEM OPERATOR FINDINGS/IMPRESSION: Moderate to severe right lateral compartment arthrosis. ??No acute fracture. ??There is a small joint effusion. ??Soft tissues are unremarkable. Electronically signed by: Raffi Montes II, D.O. Narrative 10/22/2024 9:52 AM BUS SYSTEM OPERATOR EXAMINATION: XR KNEE RIGHT 4 OR [...] l Result from Last 3 Months Insurance [facility] AETNA MEDICARE [facility] MEDICARE [facility] MEDICARE Advance Directives For more information, please contact: [phone] * Full Code (Latest Code Status on File) Date Activated Date Inactivated Comments 02/19/2024 8:07 AM 02/23/2024 6:29 PM * Full Code Date Activated Date Inactivated Comments 03/29/2023 6:03 PM 04/01/2023 4:22 PM Care Teams Coating Machine Feeder Relationship Specialty Start Date End Date Watson Perry MD [phone] (work) PCP - General Family Medicine 01/24/18
--- OUTSIDE RECORDS SUMMARY | 2024-11-23 15:11 | XMS_ITS | Encounter Summary ---
Author Organization [facility] Address [address] [place] [address] Care Team Providers Care Water Resource Manager Name Role Phone Watson Perry MD Primary Care Provider [phone] Encounter Details Date Type Department Care Team (Late st Contact Info) Description 05/08/2023 Orders Only [facility] Pulmonary at [address] [place] [address] Selam Rivas LPN Centrilobular emphysema (HCC) (Primary Dx); Chronic respiratory failure with hypoxia and hypercapnia (CMS/HCC) (HCC); Chronic respiratory failure with hypoxia (CMS/HCC) (HCC) Social History Tobacco Use Types Packs/Day Years Used Date Smoking Tobacco: Former Cigarettes 1 50 0 05/18/1972 - 05/18/2022 Smokeless Tobacco: Never Alcohol Use Standard Drinks/Week Comments No 0 (1 standard drink = 0.6 oz pur e alcohol) Social Connection and Isolat ion Panel [NHANES] Answer Date Recorded In a typical week, how many times do you talk on the phone with family, friends, or neighbors? More than three times a week 03/30/2023 How often do you get togethe r with friends or relatives? More than three times a week 03/30/2023 How often do you attend chur or holiness services? Never 03/30/2023 Do you belong to any clubs o r organizations such as pentecostal groups, unions, fraternal or athletic groups, or school groups? No 03/30/2023 How often do you attend meet ings of the clubs or organizations you belong to? Never 03/30/2023 Are you , , di vorced, , never , or living with a partner? 03/30/2023 AUDIT-C Answer Date Recorded Q1: How often [...] care, and heating? Not hard at all 03/30/2023 Hunger Vital Sign Answer Date Recorded Within the past 12 months, y ou worried that your food would run out before you got the money to buy more. Never true 03/30/20 23 Within the past 12 months, t he food you bought just didn't last and you didn't have money to get more. Never true 03/30/2023 PRAPARE - Transportation Answer Date Re corded In the past 12 months, has l ack of transportation kept you from medical appointments or from getting medications? No 03/19 In the past 12 months, has l ack of transportation kept you from meetings, work, or from getting things needed for daily living? No 03/30/2023 Housing Stability Vital Sign Answer Ricardo e Recorded In the last 12 months, was t here a time when you were not able to pay the mortgage or rent on time? No 03/30/2023 In the last 12 months, how many places have you lived? 1 03/30/2023 In the last 12 months, was t here a time when you did not have a steady place to sleep or slept in a alf (including now)? No 03/30/2023 Personal Safety Answer Date Recorded Have you ever been in or are you currently in a harmful physical or emotional relationship or is someone making you feel afraid or unsafe? 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 Gender Identity Not on file Sexual Orientation Not on file documented as of this encounter Miscellaneous Notes * Addendum Note - Selam Rivas LPN - 05/08/2023 9:27 AM CDTAddended by: SELAM RIVAS on: 05/08/2023 09:41 AM Modules accepted: Orders documented in this encounter Plan of Treatment Not on file documented as of this encounter Visit Diagnoses Diagnosis Centrilobular emphysema (HCC)- Primary Chronic respiratory failure with hypoxia and hypercapnia (CMS/HCC) (HCC) Chronic respiratory failure with hypoxia (CMS/HCC) (HCC) documented in this encounter Care Teams Water Resource Manager Relationship Specialty Start Date End Date Watson Perry MD PCP - General Family Medicine 01/24/18 documented as of this encounter
--- OUTSIDE RECORDS SUMMARY | 2024-11-23 15:11 | XMS_ITS | Encounter Summary ---
Author Organization [facility] Address [address] [place] [address] Care Team Providers Care Tag Clerk Name Role Phone Lyla Perry MD Primary Care Provider [phone] Reason for Visit * Reason Comments Leg Swelling * Auth/Cert Specialty Diagnoses / Procedures Referred By Contac t Referred To Contact Diagnoses Pneumonia of left lower lobe due to infectious organism Pneumonia due to organism Procedures na Referral ID Status Reason Start Date Expiration Date Visits Re quested Visits Authorized [id number] 1 1 Encounter Details Date Type Department Care Team (Latest Contact Info) Description 02/18/2024 10:10 PM CDT - 02/23/2024 2:28 PM CDT Hospital Encounter [facility] IMU [address] [place] [address] Marleny Vasquez MD [address] [facility] [place] [address] Josef Ramirez Jr., MD [address] [facility] [place] [address] Savi Crowder MD [address] [place] [address] [place] [address] Pneumonia of left lower lobe due to infectious organism (Primary Dx); Dyspnea, unspecified type; General weakness; Impaired ambulation Discharge Disposition: Discharge to SNF Social History Tobacco Use Types Packs/Day Years Used Date Smoking Tobacco: Former Cigarettes 1 50 0 05/18/1972 - 05/18/2022 Smokeless Tobacco: Never Alcohol Use Standard Drinks/Week Comments No 0 (1 standard drink = 0.6 oz pur e alcohol) [place] Utilities Answer Date Recorded In the past 12 months has e electric, gas, oil, or water company [...] often do you attend chur ch or jehovah's witness services? Never 02/20/2024 Do you belong to any clubs o r organizations such as presybeterian groups, unions, fraternal or athletic groups, or [...] place to sleep or slept in a long term (including now)? No 02/20/2024 Personal Safety Answer [...] on file Legal Sex Female 1:09 PM [employer] Gender Identity Not on file Sexual [...] Mass Index 29.79 02/19/2024 1:13 PM CDT documented in this encounter Discharge Summaries * Isela Brown MD - 02/23/2024 7:19 AM CDT Inpatient Discharge Summary Patient Name - Linda Lake Patient Age - 74 yrs Patient - [id number] CSN - [id number] Document Creation Date: 02/23/2024 Admitting Provider, MD: Marleny Vasquez MD Discharge Provider, MD: No att. providers found Primary Care Physician at Discharge: Lyla Perry MD [phone] Admission Date: 02/18/2024 Discharge Date/time: 02/23/2024 Admission Location: [facility] LOS - LOS: 4 days DETAILS OF HOSPITAL STAY Hospital Problems/Diagnoses Principal Problem: Chronic pain of right knee Active Problems: Moseley's cyst of knee, right Centrilobular emphysema (HCC) Hyperlipidemia GERD without esophagitis Anxiety Essential tremor Depression Reason for Hospitalization: Linda Lake is a 74 y.o. female with a PMH of COPD on 3 L, centrilobular emphysema, hyperlipidemia, GERD, and anxiety admitted for right knee pain. Hospital Course: Chronic pain of right knee Moseley's cyst of knee, right -Patient presented to ED complaining of significant pain and swelling to right knee for past few weeks, stating it has worsened ever since her left hip replacement in 08/2023. Denies any recent fallsor trauma. -Bedside US done by Dr. Chavez denoted small fluid sac behind knee, consistent with Moseley's cyst. Patient states that she has had a steroid injection before which helped with her pain. She is fearful of going back home and not being able to ambulate well and is interested in rehab temporarily. -Tylenol provided symptomatic relief, continued throughout hospital stay -Moseley's cyst aspiration done on 02/20 showed no crystals seen. Preliminary aerobic and anaerobic cultures and Gram stains from aspirate of right knee showed no PMNs or organisms. Patient likely alsohas arthritis of that knee that caused discomfort . -Plan on further PT and rehabilitation outpatient. Centrilobular emphysema Oxygen use, 3L at baseline -History of centrilobular emphysema with last admission from 03/29-04/01 for COPD exacerbation. Patient had increased sputum production at that time in addition to cough, fever and vitals supporting diagnosis. Placed on Prednisone and Levaquin for 5 days with good response. Patient also notedto have lymphadenopathy on chest CT that has been followed by pulmonology as well -On admission, CXR showed mild changes in left lower lobe, concerning for atelectasis and possibly PNA. However, PE, vitals, and labs ruled this out. No need for antibiotic treatment at this time. -Patient on 3 L at baseline -home med Trelegy Ellipta, received Symbicort and Atrovent inpatient. -p.r.n. DuoNeb available but not needed -Will discharge patient with albuterol inhaler p.r.n., continue Trelegy Ellipta Essential tremor -Patient has history of essential tremor, tremor did not worsen during hospital admission but remains stable -On home Pramipexole 1.5mg BID, will continue upon discharge Hyperlipidemia -Previous diagnosis of HLD. No record of most recent lipid panel. -Patient currently on Crestor 10mg, will continue upon discharge -Recommend lipid panel from PCP upon discharge GERD without esophagitis -No report of increased cough, regurgitation, chest pain or dysphagia. -On home Nexium 20mg daily, will continue upon discharge Anxiety Depression -No SI or HI reported. Patient remained pleasant and in no acute distress. -On home Celexa 20mg daily, will continue upon discharge Discharge Details Physical Exam at Discharge: Discharge Condition: stable Pulse: 64 Resp: 18 BP: 127/76 Temp: 36.2 ??C (97.1 ??F) Weight: 81.2 kg (179 lb 0.2 oz) Pertinent Exam Findings at Discharge: Constitutional: General: She is not in acute distress. Appearance: She is not ill-appearing, toxic-appearing or diaphoretic. HENT: Head: Normocephalic and atraumatic. Mouth: Mucous membranes are moist. Eyes: Extraocular Movements: Extraocular movements intact. Cardiovascular: Rate and Rhythm: Normal rate and regular rhythm. Heart sounds: Normal heart sounds. No murmur heard. No friction rub. No gallop. Pulmonary: Effort: Pulmonary effort is normal. No respiratory distress. Breath sounds: Normal breath sounds. No stridor. No wheezing, rhonchi or rales. Abdominal: General: Bowel sounds are normal. Palpations: Abdomen is soft. Tenderness: There is no abdominal tenderness. There is no guarding or rebound. Hernia: No hernia is present. Musculoskeletal: General: No deformity or signs of injury. Pitting edema to bilaterally lower extremities, symmetrical, mildly tender to palpation. Pt reports consistent with baseline since hip replacement. Cervical back: Normal range of motion. Skin: General: Skin is warm and dry. Neurological: General: No focal deficit present. Mental Status: She is alert and oriented to person, place, and time. Psychiatric: Mood and Affect: Mood normal. Discharge Disposition: Discharge to SNF Code Status at Discharge: Full Code Active Issues & Recommended Plan for Follow-up: Chronic pain of right knee Moseley's cyst of knee, right -Plan on further PT and rehabilitation outpatient. Centrilobular emphysema Oxygen use, 3L at baseline -continue home oxygen 3 liters/minute -Continue home med Trelegy Ellipta on discharge. -Will discharge patient with albuterol inhaler p.r.n.. Essential tremor -On home Pramipexole 1.5mg BID, will continue upon discharge Hyperlipidemia -Patient currently on Crestor 10mg, will continue upon discharge -Recommend lipid panel from PCP upon discharge GERD without esophagitis -On home Nexium 20mg daily, will continue upon discharge Anxiety Depression -On home Celexa 20mg daily, will continue upon discharge Allergies: Ibuprofen Discharge Medications: Your medication list START taking these medications Instructions Last Dose Given Next Dose Due albuterol HFA 90 mcg/actuation inhaler Doctor's comments: [place] Location: [facility] Commonly known as: PROVENTIL HFA,VENTOLIN HFA,PROAIR HFA Inhale 2 puffs every 6 (six) hours as needed for wheezing or shortness of breath bisacodyl EC 5 mg EC tablet Doctor's comments: [place] Location: [facility] Commonly known as: DULCOLAX EC Take 2 tablets (10 mg total) by mouth daily as needed for constipation (If no results 24 hours after milk of magnesia) magnesium hydroxide 80 mg/mL (33.3 mg/mL as elemental magnesium) Doctor's comments: [place] Location: [facility] Commonly known as: MILK OF MAGNESIA Take 30 mL by mouth daily as needed (constipation) CONTINUE taking these medications Instructions Last Dose Given Next Dose Due calcium carbonate 1,500 mg (600 mg elemental) tablet Commonly known as: OS-ERUM Take 1 tablet (1,500 mg total) by mouth 2 (two) times a day citalopram 20 mg tablet Commonly known as: CeleXA Take 1 tablet (20 mg total) by mouth daily clonazePAM 1 mg tablet Commonly known as: KlonoPIN Take 1 tablet (1 mg total) by mouth daily esomeprazole DR 20 mg capsule Commonly known as: NexIUM Take 1 capsule (20 mg total) by mouth daily before breakfast furosemide 20 mg tablet Commonly known as: LASIX Take 0.5 tablets (10 mg total) by mouth daily multivitamin capsule Take 1 capsule by mouth daily omega 4-osa-iwr-fish oil 1,000 mg (120 mg-180 mg) capsule Take 1 capsule (1,000 mg total) by mouth 2 (two) times a day pramipexole 1.5 mg tablet Commonly known as: MIRAPEX Take 1 tablet (1.5 mg total) by mouth 2 (two) times a day primidone 250 mg tablet Commonly known as: MYSOLINE Take 1 tablet (250 mg total) by mouth daily propranolol LA 60 mg 24 hr capsule Commonly known as: INDERAL LA Take 1 capsule (60 mg total) by mouth 2 (two) times a day rosuvastatin 10 mg tablet Commonly known as: CRESTOR Take 1 tablet (10 mg total) by mouth nightly at bedtime. Trelegy Ellipta 200-62.5-25 mcg inhaler Doctor's comments: Pt needs to call the office to make a follow-up appointment. Generic drug: jcnhitesbom-twthwcjeo-sykagfpy INHALE 1 PUFF ONCE DAILY Where to Get Your Medications Information about where to get these medications is not yet available Ask your nurse or doctor about these medications albuterol HFA 90 mcg/actuation inhaler bisacodyl EC 5 mg EC tablet magnesium hydroxide 80 mg/mL (33.3 mg/mL as elemental magnesium) Time Spent in Discharge Process: I have spent 35 minutes on discharge planning activities. Time spent was on Coordination of care, Follow up , Counselling with patient/family, and discharge exam Test Results Pending at Discharge (If Blank, None Found): Pending Labs Order Current Status Aerobic and anaerobic culture and gram stain Aspirate Knee, right Preliminary result Operative Procedures Performed (If Blank, None Found): Outpatient Follow-Up: Contact Information for Follow-ups Lyla Perry MD Specialty: Family Medicine Relationship: PCP - General [address] [facility] [address] Next Steps: Call in 1 week(s) Instructions: Hospital follow up [address] [address] Next Steps: Go to Lyla Perry MD Specialty: Family Medicine [address] [facility] [address] Next Steps: Follow up Comments: Please follow-up with PCP, Dr. Lyla Perry, within 1-2 weeks of hospital discharge Questions: To provider: LYLA PERRY Please schedule an appointment with the following provider(s): Lyla Perry MD [address] [place] [address] Call in 1 week(s) Hospital follow up [facility] [address] [facility] [phone] Go to Lyla Perry MD [address] [id number] ANCILLARY INFORMATION Other Procedures & Diagnostic Tests: ECG 12 lead Result Date: 02/19/2024 Vent Rate: 79 bpm RR Interval: 759 msec LA Interval: 139 msec QRS Duration: 90 msec QT Interval: 352 msec QTC Interval: 386 msec P-R-T [place]: 36 - 9 - 7 degrees IMPRESSION: SINUS RHYTHM MINIMAL ST DEPRESSION [0.025+ mV ST DEPRESSION] BORDERLINE ECG NO CHANGE FROM PREVIOUS TRACING NOTED Electronically Signed By: Cruz Espinoza MD XR CHEST 1 VIEW PORTABLE Result Date: 02/18/2024 EXAM DESCRIPTION: XR CHEST 1 VIEW REASON FOR STUDY: Dyspnea. Hypoxemia. Pt has right leg swelling. Pt states she feels like crap. 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 TECHNIQUE: Single radiographic view(s) of the chest. COMPARISON:05/30/2023, 03/29/2023 FINDINGS: LUNGS: Abnormal density is seen at the medial right base. This mayrepresent posterior atelectasis. Underlying chronic lung changes are noted. The left lung appears better preserved. HEART/MEDIASTINUM: Cardiac silhouette normal in size. Mediastinal and hilar contours appear normal. LINES/TUBES: None. BONES: No acute osseous abnormality. IMPRESSION: Multiple atelectasis at the left base. Similar findings are noted on prior CT scans from 2022.. This could represent recurrent pneumonia. Follow-up to ensure clearing is needed. THIS IS AN ELECTRONICALLY VERIFIED FINAL REPORT 02/18/2024 9:08 PM - Electronically signed by Tom Mora M.D. KH: RAVIN Report ID: [id number] Reading Location: [place] [address] Recent Labs: Recent Labs Lab Units 02/23/2425602/22/2424202/21/24336 WBC K/cumm 6.1 6.5 6.7 HEMOGLOBIN g/dL 9.9* 9.5* 9.2* HEMATOCRIT % 32.2* 30.7* 29.9* PLATELETS K/cumm 472* 437* 428* Recent Labs Lab Units 02/23/2425602/22/2424202/21/24336 WBC K/cumm 6.1 6.5 6.7 HEMOGLOBIN g/dL 9.9* 9.5* 9.2* HEMATOCRIT % 32.2* 30.7* 29.9* PLATELETS K/cumm 472* 437* 428* NEUTROS PCT % 59.9 61.2 64.3 LYMPHS PCT % 34.0 33.5 30.6 MONOS PCT % 2.3 2.9 2.4 EOS PCT % 2.6 1.7 1.7 Recent Labs Lab Units 02/23/2425602/22/2424202/21/24336 SODIUM mmol/L 140 136 139 POTASSIUM PLASMA mmol/L 4.1 3.8 4.0 CHLORIDE mmol/L 96* 94* 97 CO2 mmol/L 37* 38* 36* BUN SERUM mg/dL 5* 5* 5* CREATININE mg/dL 0.49* 0.46* 0.49* [id number] mL/min/1.73 m2 >90 >90 >90 GLUCOSE mg/dL 114 103 117 CALCIUM mg/dL 9.4 8.9 9.1 ALBUMIN g/dL 2.7* 2.6* 2.5* PHOSPHORUS PLASMA mg/dL 3.6 4.0 3.3 Recent Labs Lab Units 02/23/2425602/22/2424202/21/24 033 SODIUM mmol/L 140 136 139 POTASSIUM PLASMA mmol/L 4.1 3.8 4.0 CHLORIDE mmol/L 96* 94* 97 CO2 mmol/L 37* 38* 36* ANIONGAP mmol/L 7 5 7 GLUCOSE mg/dL 114 103 117 BUN SERUM mg/dL 5* 5* 5* CREATININE mg/dL 0.49* 0.46* 0.49* CALCIUM mg/dL 9.4 8.9 9.1 ALBUMIN g/dL 2.7* 2.6* 2.5* ALK PHOS Units/L 83 79 89 ALT Units/L 21 22 26 AST Units/L 15 15 19 BILIRUBIN TOTAL mg/dL <0.2 <0.2 <0.2 Recent Labs Lab Units 02/23/24 0257 02/22/24 0243 02/21/24 0337 ALK PHOS Units/L 83 79 89 BILIRUBIN TOTAL mg/dL <0.2 <0.2 <0.2 TOTAL PROTEIN g/dL 5.8* 5.3* 5.4* ALT Units/L 21 22 26 AST Units/L 15 15 19 Recent Labs Lab Units 02/23/24 0257 02/22/24 0243 02/21/24 0337 MAGNESIUM mg/dL 2.1 2.1 2.0 Lab Results Component Value Date GLUCOSE 114 02/23/2024 GLUCOSE 103 02/22/2024 GLUCOSE 117 02/21/2024 Implant Implants No active implants to display in this view. General Precautions (If Blank, None Found): Isolation Status: No active isolations Nutritional Status and in-house recommendations: Dietary Orders (From admission, onward) Start Ordered 02/19/24 0807 Adult Diet Regular Diet effective now Question: ([facility]) Diet Type Answer: Regular 02/19/24 0806 Anticoagulation Indication: INR: No results found for requested labs within last 30 days. Warfarin Administrations (last 168 hours) None Oxygen Status: O2 Therapy for the past 12 hrs: O2 Therapy O2 Flow Rate (L/min) 02/23/24 0746 Supplemental oxygen 3 L/min Wound Care Instructions Other Instructions Call provider for: Temperature -Temperature greater than 101 degrees F Call provider for: difficulty breathing or chest pain Call provider for: extreme fatigue Call provider for: hives Call provider for: persistent dizziness or light-headedness Call provider for: persistent nausea or vomiting Call provider for: redness, tenderness, or signs of infection (pain, swelling, redness, odor or green/yellow discharge around incision site) Call provider for: severe uncontrolled pain Call provider for: headache, visual disturbances, weakness and speech changes Active LDAs (If Blank, None Found): Peripheral IV 02/20/24 20 G Anterior;Distal;Left Forearm (Active) Placement Date/Time: 02/20/242019 Size (Gauge): 20 G Location Orientation: Anterior;Distal;Left Location: Forearm Site Prep: Chlorhexidine Technique: Anatomical landmarks Inserted by: IRIS Lisa Insertion attempts: 1 Patient Tolerance: Tole... Patient Emergency Contact: Primary Emergency Contact: [place] Immunization Status at Discharge Immunization History Administered Date(s) Administered Pfizer SARS-CoV-2 Monovalent Vaccination (12+ Yrs) PURPLE 12/22/2020, 01/28/2021, 08/17/2021, 09/16/2021 Isela Brown MD PGY-1 Cosigned by Josef Ramirez Jr., MD at 02/24/2024 8:48 AM CDT Associated attestation - Josef Ramirez Jr., MD - 02/24/2024 8:48 AM CDT I personally saw and examined the patient and discussed the case with the resident. I have reviewedthe resident's note and agree with the content and plan as written. My total encounter time on 02/24/24 was 32 minutes which was spent in the activities documented in the note. This includes time spent prior to the visit and after the visit in direct care of the patient. This time does not include time spent in any separately reportable services. Josef Ramirez Jr., MD documented in this encounter Discharge Instructions * Discharge Instructions* Kayli Mandujano RN - 02/23/2024 9:29 AM CDT CODE STATUS: Full code ALLERGIES: Ibuprofen WEIGHT: 81.2kg ISOLATION: na DIET: Regular FINGERSTICKS: NA ACTIVITY: Up with assistance OXYGEN: 3L per nasal cannula BUSCH CATHETER: NA DRESSING CHANGES: na PHYSICAL THERAPY: YES OCCUPATIONAL THERAPY: YES * Attachments The following attachments cannot be sent through Care Everywhere. * Arthritis (Discharge Care) (Finnish) * Moseley Cyst (Discharge Care) (Finnish) documented in this encounter Medications at Time of Discharge calcium carbonate (OS-ERUM) 1,500 mg (600 mg [...] Take 1 capsule by mouth daily omega 8-ukk-not-fish oil 1,000 mg (120 mg-180 mg) capsule Take 1 capsule (1,000 mg total) by mouth 2 (two) times a day 04/01/2023 pramipexole (MIRAPEX) 1.5 mg tablet Take 1 [...] total) by mouth nightly at bedtime. 11/16/2022 albuterol HFA (PROVENTIL HFA,VENTOLIN HFA,PROAIR HFA) 90 mcg/actuation inhaler Inhale 2 puffs every 6 (six) hours as needed for wheezing or shortness of breath 02/23/2024 5 bisacodyl EC (DULCOLAX EC) 5 mg EC tabletIndication s:constipation Take 2 tablets (10 mg total) by mouth daily as needed for constipation (If no results 24 hours after milk of magnesia) 02/23/2024 Trelegy Ellipta 200-62.5-25 mcg inhaler INHALE 1 PUFF ONCE DAILY 180 each 11/13/2023 4 documented as of this encounter Ordered Prescriptions Prescription Sig Dispense Quantity Refills Last Filled Start Date End Date albuterol HFA (PROVENTIL HFA,VENTOLIN HFA,PROAIR HFA) 90 mcg/actuation inhaler Inhale 2 puffs every 6 (six) hours as needed for wheezing or shortness of breath 02/23/2024 5 bisacodyl EC (DULCOLAX EC) 5 mg EC tabletIndications :constipation Take 2 tablets (10 mg total) by mouth daily as needed for constipation (If no results 24 hours after milk of magnesia) 02/23/2024 magnesium hydroxide (MILK OF MAGNESIA) suspension 400 mg/5 mL Take 30 mL by mouth daily as needed (constipation) 02/23/2024 documented in this encounter Discharge Disposition Disposition Code Departure Means Destination Comment s Discharge to [facility] documented in this encounter Progress Notes * Jaylene Gonzalez, PT - 02/23/2024 9:37 AM CDT Physical Therapy 02/23/24 0900 PT Last Visit PT Missed Visit Reason Other (comment) (Pt is being d/c to rehab today.) * Lorrie Steel, OT - 02/22/2024 12:43 PM CDT Occupational Therapy 02/22/24 1115 General Session Type Treatment OT Received On 02/22/24 Subjective Agreeable to Therapy Family/Caregiver Present No Pain Assessment Pain Score 0 - No pain Toileting Toileting: Where assessed Bedside Commode Toileting: Equipment utilized (w/w) Toileting: Level of assistance Moderate Assist Toileting: Assistance with Clothing management up;Clothing management down;Anterior (assist required for clothing management and balance while completing anterior hygiene.) Room Mobility Room Mobility: Where assessed BSC to bed Health Management: Equipment (w/w) Room Mobility: Level of Assistance Minimum Assist Room Mobility comment requires increased time and MIN v/c's Bed Mobility 1 Bed Mobility From 1 Edge of bed Bed Mobility Type 1 To Bed Mobility to 1 Supine Level of Assistance 1 Minimum Assist Bed Mobility Comments 1 lifting legs into bed Other Comments Comments Patient requires increased time during all functional mobility. Patient requires MOD v/c'sduring mobility Plan Plan Continue with current plan;If this is the last note, consider this the discharge summary * Sada Velasquez, SORT LINE - 02/22/2024 8:54 AM CDT Physical Therapy 02/22/24 0816 PT Last Visit Session Type Treatment Safe Environment Arm band checked;Patient found in supine;Session completed bedside;Gait belt utilized for all out of bed mobility Pain Assessment Pain Assessment No/denies pain Bed Mobility 1 Bed Mobility From 1 Supine Bed Mobility Type 1 To Bed Mobility to 1 Edge of bed Level of Assistance 1 Moderate Assist Transfer 1 Transfer From 1 Bed;Sit Transfer Type 1 To and from Transfer to 1 Stand Technique 1 Sit to stand;Stand to sit Transfer Device 1 Wheeled walker Transfer Level of Assistance 1 Minimum Assist Ambulation 1 Distance (ft) 1 3-4 steps to commode Device 1 Wheeled walker Assistance 1 Minimum Assist Gait: Requires assist with 1 Maintaining balance Gait: Requires verbal cues to 1 Use assistive device safely;Improve upright posture;Increase step length Ambulation Comments 1 short shuffled steps Safe Environment End of Therapy Session Safe Environment End of Therapy Session (pt left on commode nurse in room with pt) Assessment Prognosis Good Problem List Decreased strength;Decreased endurance;Impaired balance;Decreased mobility Plan Plan If this is the last note, consider this the discharge summary Recommendation/Plan PT Recommendation/Plan Senior Living Facility Patient at high risk for Falls;Readmission;Injury due to decreased ability to care for self;Injury due to reduced functional status;Injury due to balance deficits Recommend SNF due to Risk of injury at home;Unable to safely care for self in the home;Skilled therapy needed to address care for self in the home;Skilled therapy needed to address functional deficits;Skilled therapy needed for patient to return to prior level of independence * Peggy Hernandez MD - 02/22/2024 6:53 AM CDT Family Medicine Daily Progress Note SUBJECTIVE Linda Lake is a 74 y.o. female with a PMH of COPD on 3 L, centrilobular emphysema, hyperlipidemia, GERD, and anxiety admitted for right knee pain. Chief complaint: Right knee pain Interval History: No acute events reported overnight. Patient seen this morning, eating breakfast comfortably. Patient states that she has only been able to ambulate from the bed to either the bedside commode or to a chair. Denies any chest pain, shortness a , abdominal pain. Tolerating food and liquids well. No acute concerns at this time. OBJECTIVE Vitals: 24hr Min/Max: Temp Min: 35.9 ??C (96.7 ??F) Max: 36.8 ??C (98.3 ??F) Pulse Min: 66 Max: 79 BP Min: 107/64 Max: 148/77 Resp Min: 18 Max: 20 SpO2 Min: 90 % Max: 98 % Most Recent : Vitals: 02/22/24 0300 BP: 124/59 Pulse: 70 Resp: 20 Temp: 36.1 ??C (97 ??F) SpO2: 90% I/O last 2 completed shifts: In: 3612 [P.O.:920; I.V.:2691] Out: 2100 [Urine:2100] I/O this shift: In: 1953 [I.V.:1953] Out: 900 [Urine:900] Physical Exam Vitals and nursing note reviewed. Constitutional: General: She is not in acute distress. Appearance: She is not ill-appearing, toxic-appearing or diaphoretic. Comments: Patient using bedside commode when I saw her this morning, however doing well. Patient isnot ill or toxic appearing HENT: Head: Normocephalic and atraumatic. Nose: Nose normal. Mouth/Throat: Mouth: Mucous membranes are moist. Eyes: Extraocular Movements: Extraocular movements intact. Cardiovascular: Rate and Rhythm: Normal rate and regular rhythm. Heart sounds: Normal heart sounds. No murmur heard. No friction rub. No gallop. Pulmonary: Effort: Pulmonary effort is normal. No respiratory distress. Breath sounds: Normal breath sounds. No stridor. No wheezing, rhonchi or rales. Abdominal: General: Bowel sounds are normal. Palpations: Abdomen is soft. Tenderness: There is no abdominal tenderness. There is no guarding or rebound. Hernia: No hernia is present. Musculoskeletal: General: No swelling, tenderness, deformity or signs of injury. Cervical back: Normal range of motion. Comments: No tenderness to palpation to right knee, no edema or erythema noted Skin: General: Skin is warm and dry. Neurological: General: No focal deficit present. Mental Status: She is alert and oriented to person, place, and time. Psychiatric: Mood and Affect: Mood normal. Lab/Current Medication Review: Recent Results (from the past 24 hour(s)) Aerobic and anaerobic culture and gram stain Aspirate Knee, right Collection Time: 02/21/24 9:50 AM Specimen: Knee, right; Aspirate Result Value Ref Range Direct Specimen Exam Stain: No polymorphonuclear leukocytes seen. No organisms seen. Crystal Analysis, Body Fluid Collection Time: 02/21/24 9:50 AM Result Value Ref Range Specimen type, fld Synovial Body site, fld Right knee Crystals None Seen Comprehensive metabolic panel Collection Time: 02/22/24 2:43 AM Result Value Ref Range Sodium 136 135 - 145 mmol/L Potassium, pl 3.8 3.3 - 4.9 mmol/L Chloride 94 (L) 97 - 110 mmol/L CO2 38 (H) 22 - 32 mmol/L Anion gap 5 2 - 15 mmol/L BUN 5 (L) 6 - 25 mg/dL Creatinine 0.46 (L) 0.60 - 1.10 mg/dL Glucose 103 70 - 199 mg/dL Calcium 8.9 8.5 - 10.3 mg/dL Bilirubin, total <0.2 0.1 - 1.2 mg/dL Protein, pl 5.3 (L) 6.5 - 8.5 g/dL Albumin 2.6 (L) 3.5 - 5.0 g/dL Alk phos 79 40 - 130 Units/L ALT 22 7 - 45 Units/L AST 15 10 - 45 Units/L Magnesium Collection Time: 02/22/24 2:43 AM Result Value Ref Range Magnesium 2.1 1.4 - 2.5 mg/dL Phosphorus Collection Time: 02/22/24 2:43 AM Result Value Ref Range Phosphorus, pl 4.0 2.3 - 4.5 mg/dL CBC with auto differential Collection Time: 02/22/24 2:43 AM Result Value Ref Range WBC 6.5 3.8 - 9.9 K/cumm Hgb 9.5 (L) 11.9 - 15.5 g/dL Hct 30.7 (L) 35.6 - 45.5 % Plt 437 (H) 150 - 400 K/cumm MPV 8.1 (L) 9.1 - 12.3 fL RBC 3.23 (L) 3.90 - 5.20 M/cumm MCV 95.0 81.3 - 96.4 fL MCH 29.4 27.1 - 33.3 pg MCHC 30.9 (L) 32.3 - 35.7 g/dL RDW CV 16.5 (H) 11.1 - 14.9 % RDW SD 57.7 (H) 35.7 - 48.1 fL NRBC abs 0.00 0.00 - 0.01 K/cumm Differential, auto Collection Time: 02/22/24 2:43 AM Result Value Ref Range Neutrophil abs 4.0 1.5 - 6.5 K/cumm Imm gran abs 0.0 0.0 - 0.1 K/cumm Lymphocyte abs 2.2 0.8 - 3.3 K/cumm Monocyte abs 0.2 0.2 - 0.8 K/cumm Eosinophil abs 0.1 0.0 - 0.5 K/cumm Basophil abs 0.0 0.0 - 0.1 K/cumm Neutrophil pct 61.2 % Imm gran pct 0.2 % Lymphocyte pct 33.5 % Monocyte pct 2.9 % Eosinophil pct 1.7 % Basophil pct 0.5 % eGFR Collection Time: 02/22/24 2:43 AM Result Value Ref Range eGFR >90 >=60 mL/min/1.73 m2 US Guided Aspiration or Injection of Major Joint Result Date: 02/21/2024 Narrative: EXAMINATION: Right popliteal bursal cyst/Moseley's cyst aspiration under ultrasound guidance HISTORY: Right knee pain with swelling and elevated inflammatory markers. Aspiration is requestedfor diagnosis. ATTENDING PRESENCE: Dr. Ahsan Dinh M.D., the attending radiologist, was present from the beginning to the end of the procedure. SEDATION: The patient did not require conscious sedation for the procedure. TECHNIQUE: The risks, benefits and alternatives were discussed and informed consent was obtained. Prior to beginning the procedure, universal Protocol was performed to confirm the patient's identity and the planned procedure. Sterile barriers used during the procedure included cap, mask, hand hygiene, sterile gloves, and sterile drape. Chloraprep was used for cutaneous antisepsis. The patient was placed supine on the fluoroscopy table. The right popliteal fossa cyst/Moseley's cyst was localized with ultrasound guidance. Local anesthesia was achieved with subcutaneous injection of 1% lidocaine 2 mL. An 18 gauge needle was then introduced into the cyst under ultrasound guidance. 5 mL of fluid was aspirated. The needle was removed. The skin was cleansed with hydrogen peroxide, and a bandage was placed. There were no complications of the procedure. ESTIMATED BLOODLOSS: None CONDITION: Stable condition. DISCHARGED TO: Patient care division FINDINGS: Sonographic images confirm intra bursal position of the needle tip with subsequent decompression. IMPRESSION: 1.Left popliteal fossa cyst/Moseley's cyst aspiration under ultrasound guidance. THIS IS AN ELECTRONICALLY VERIFIED FINAL REPORT 02/21/2024 10:58 AM - Electronically signed by Ahsan Gonzáles M.D. MF: [id number] Report ID: [id number] Reading Location:[id number] US Lower Extremity Right Limited Result Date: 02/20/2024 Narrative: EXAM DESCRIPTION: US LOWER EXTREMITY RIGHT LIMITED REASON FOR STUDY: Pain TECHNIQUE: A Dynamic assessment was performed of the right lower extremity by the microwave radio technician, with selected grayscale and color Doppler images acquired and recorded in PACS. COMPARISON: No prior studies are available for comparison at time of this dictation. FINDINGS: There is a fluid collection within the popliteal fossa which appears anechoic. This measures 3.0 x 5.5 x 0.9 cm. This is compatible with a popliteal cyst. IMPRESSION: Popliteal cyst measuring 3.0 x 5.5 x 0.9 cm. THIS IS AN ELECTRONICALLY VERIFIED FINAL REPORT 02/20/2024 3:48 PM - Electronically signed by Jonn Lopez M.D. MM: MM Report ID: [id number] Reading Location: [id number] XR Knee Right 3 Views Result Date: 02/20/2024 Narrative: EXAM DESCRIPTION: XR KNEE RIGHT 3 VIEWS REASON FOR STUDY: pain TECHNIQUE: 3 radiographicview(s) of the right knee . COMPARISON: No prior studies are available for comparison at time of this dictation. FINDINGS: BONES/JOINTS: There is no acute fracture, malalignment or osseous abnormality. The joint spaces are normal. SOFT TISSUES: Mild nonspecific soft tissue swelling of the knee. IMPRESSION: No acute osseous abnormality. THIS IS AN ELECTRONICALLY VERIFIED FINAL REPORT 02/20/2024 3:47PM - Electronically signed by Jonn Lopez M.D. MM: MM Report ID: [id number] Reading Location: [id number] ECG 12 lead Result Date: 02/19/2024 Narrative: Vent Rate: 79 bpm RR Interval: 759 msec LA Interval: 139 msec QRS Duration: 90 msec QT Interval: 352 msec QTC Interval: 386 msec P-R-T [place]: 36 - 9 - 7 degrees IMPRESSION: SINUS RHYTHM MINIMAL ST DEPRESSION [0.025+ mV ST DEPRESSION] BORDERLINE ECG NO CHANGE FROM PREVIOUS TRACING NOTED Electronically Signed By: Cruz sEpinoza MD XR CHEST 1 VIEW PORTABLE Result Date: 02/18/2024 Narrative: EXAM DESCRIPTION: XR CHEST 1 VIEW REASON FOR STUDY: Dyspnea. Hypoxemia. Pt has right legswelling. Pt states she feels like crap. Patient has full O2 tank, no wheelchair available w/ caddyfor tank history of COPD on oxygen and chronic tremors presents with her with complaints ofprogressive weakness and shortness of breath. TECHNIQUE: Single radiographic view(s) of the chest. COMPARISON: 05/30/2023, 03/29/2023 FINDINGS: LUNGS: Abnormal density is seen at the medial right base. This may represent posterior atelectasis. Underlying chronic lung changes are noted. The left lung appears better preserved. HEART/MEDIASTINUM: Cardiac silhouette normal in size. Mediastinal and hilar contours appear normal. LINES/TUBES: None. BONES: No acute osseous abnormality. IMPRESSION: Multiple atelectasis at the left base. Similar findings are noted on prior CT scans from 2022.. This could represent recurrent pneumonia. Follow-up to ensure clearing is needed. THIS IS AN ELECTRONICALLY V ERIFIED FINAL REPORT 02/18/2024 9:08 PM - Electronically signed by Tom Mora M.D. KH: RAVIN Report ID: [id number] Reading Location: [id number] Current Facility-Administered Medications Medication Dose Route Frequency Provider Last Rate Last Admin acetaminophen (TYLENOL) tablet 650 mg 650 mg oral Q4H PRN Peggy Hernandez MD 650 mg at02/20/24 0913 benzocaine-menthoL (CHLORASEPTIC) lozenge 1 lozenge 1 lozenge mouth/throat Q4H PRN Josef Momin MD 1 lozenge at 02/20/24 0829 benzonatate (TESSALON) capsule 100 mg 100 mg oral TID PRN Josef Momin MD 100 mg at 02/20/24 0348 bisacodyl EC (DULCOLAX EC) tablet 10 mg 10 mg oral Daily PRN Peggy Hernandez MD 10 mg at 02/21/24 1446 budesonide-formoteroL (SYMBICORT) 160-4.5 mcg/actuation inhaler 2 puff 2 puff inhalation BID (RT) Lew Chavez MD 2 puff at 02/21/242000 calcium carbonate (TUMS) chewable tablet 500 mg 200 mg of elemental calcium oral Daily Peggy Hernandez MD 500 mg at 02/21/24 0852 citalopram (CeleXA) tablet 20 mg 20 mg oral Daily Peggy Hernandez MD 20 mg at 853 clonazePAM (KlonoPIN) tablet 1 mg 1 mg oral Daily Peggy Hernandez MD 1 mg at 02/21/24 0852 enoxaparin (LOVENOX) syringe 40 mg 40 mg subcutaneous Daily-2100 Peggy Hernandez MD 40mg at 02/21/242022 furosemide (LASIX) tablet 10 mg 10 mg oral Daily Peggy Hernandez MD 10 mg at 02/21/24 0853 ipratropium (ATROVENT) 0.02 % nebulizer solution 0.5 mg 0.5 mg nebulization Q6H GALINA (RT) Lew Chavez MD 0.5 mg at 02/22/24 0228 ipratropium-albuteroL (DUO-NEB) 0.5-2.5 mg/3 mL nebulizer solution 3 mL 3 mL nebulization Q6H PRN (RT) Mio Minor PA Lactated Ringer's (LR) infusion 100 mL/hr intravenous Continuous Peggy Hernandez MD 100 mL/hr at 02/22/24 0404 100 mL/hr at 02/22/24 0404 magnesium hydroxide (MILK OF MAGNESIA) 80 mg/mL (33.3 mg/mL as elemental magnesium) oral [id number] mL 30 mL oral Daily PRN Peggy Hernandez MD 30 mL at 02/20/24 1309 mineral oil (FLEET MINERAL OIL) enema 133 mL 1 enema rectal Daily PRN Peggy Hernandez MD ondansetron ODT (ZOFRAN-ODT) disintegrating tablet 4 mg 4 mg oral Q6H PRN Peggy Hernandez MD Or ondansetron (ZOFRAN) injection 4 mg 4 mg intravenous Q6H PRN Peggy Hernandez MD pantoprazole DR (PROTONIX) extended release tablet 40 mg 40 mg oral Daily Peggy Hernandez MD 40 mg at 02/21/24 0853 polyethylene glycol (MIRALAX) packet 17 g 17 g oral Daily PRN Peggy Hernandez MD 17 g at 02/21/24 0852 pramipexole (MIRAPEX) tablet 1.5 mg 1.5 mg oral BID Peggy Hernandez MD 1.5 mg at 02/21/242021 primidone (MYSOLINE) tablet 250 mg 250 mg oral Daily Peggy Hernandez MD 250 mg at 02/21/24851 propranoloL (INDERAL) tablet 80 mg 80 mg oral QAM Peggy Hernandez MD 80 mg at And propranoloL (INDERAL) tablet 40 mg 40 mg oral Nightly Peggy Hernandez MD 40 mg at 02/21/242022 rosuvastatin (CRESTOR) tablet 10 mg 10 mg oral Nightly Peggy Hernandez MD 10 mg at 02/21/242021 A/P: Principal Problem: Chronic pain of right knee Active Problems: Moseley's cyst of knee, right Centrilobular emphysema (HCC) Essential tremor Hyperlipidemia GERD without esophagitis Anxiety Depression Resolved Problems: No resolved hospital problems. Chronic pain of right knee Moseley's cyst of knee, right -Patient presented to ED complaining of significant pain and swelling to right knee for past few weeks, stating it has worsened ever since her left hip replacement in 08/2023. Denies any recent fallsor trauma. -Bedside US done by Dr. Chavez denoted small fluid sac behind knee, consistent with Moseley's cyst. Patient states that she has had a steroid injection before which helped with her pain. She is fearful of going back home and not being able to ambulate well and is interested in rehab temporarily. -Tylenol has provided symptomatic relief, will continue at this time -Moseley's cyst aspiration done on 02/20 showed no crystals seen. Preliminary aerobic and anaerobic cultures and Gram stains from aspirate of right knee shows no PMNs or organisms seen. Patient likely also has arthritis of that knee that is also causing discomfort -patient able to ambulate minimally from bed to bedside commode or to chair. Utilizing walker at this time -Continue Tylenol q.4 hours p.r.n.. Centrilobular emphysema Oxygen use, 3L at baseline -History of centrilobular emphysema with last admission from 03/29-04/01 for COPD exacerbation. Patient had increased sputum production at that time in addition to cough, fever and vitals supporting diagnosis. Placed on Prednisone and Levaquin for 5 days with good response. Patient also notedto have lymphadenopathy on chest CT that has been followed by pulmonology as well -On admission, CXR showed mild changes in left lower lobe, concerning for atelectasis and possibly PNA. However, PE, vitals, and labs ruled this out. No need for antibiotic treatment at this time. -Patient on 3 L at baseline, currently on 4 L. Will continue to monitor -Continue DuoNeb treatment q.6 hours PRN, Symbicort and Atrovent -Will discharge patient with albuterol inhaler Essential tremor -Patient has history of essential tremor, tremor has not worsened during hospital admission -On home Pramipexole 1.5mg BID, will continue during hospital stay Hyperlipidemia -Previous diagnosis of HLD. No record of most recent lipid panel. -Patient currently on Crestor 10mg, will continue during hospital stay -Recommend lipid panel from PCP upon discharge GERD without esophagitis -No report of increased cough, regurgitation, chest pain or dysphagia. -On home Nexium 20mg daily, will continue with Protonix 40mg daily Anxiety Depression -No SI or HI reported. Patient remains pleasant and in no acute distress. -On home Celexa 20mg daily, will continue GI PPX: Protonix 40mg DVT PPx: Lovenox 40mg Consults: PT/OT, IR Code Status: Full code Dispo: Likely discharged in 1-2 days, pending SNF placement Peggy Hernandez MD [facility] access hospital Medicine Residency-PGY1 [facility] Date of Service: 02/22/2024 6:53 AM Cosigned by Josef Ramirez Jr., MD at 02/22/2024 3:34 PM CDT Associated attestation - Josef Ramirez Jr., MD - 02/22/2024 3:34 PM CDT I personally saw and examined the patient and discussed the case with the resident. I have reviewedthe resident's note and agree with the content and plan as written. CO2 rising gradually on BMP since admission, will d/c LR and continue to monitor. MDM: low complexity Josef Ramirez Jr., MD * Cristi Cortes RRT - 02/21/2024 3:25 PM CDT Pt resting in bed with SpO2 of 93% on 4 lpm via nasal cannula. Pt reports wearing 3lpm at home. Pt has diminished breath sounds and tolerates breathing treatment well. Will continue with current RT care plan. * Peggy Hernandez MD - 02/21/2024 2:10 PM CDT Family Medicine Daily Progress Note SUBJECTIVE Linda Lake is a 74 y.o. female with a PMH of COPD on 3 L, centrilobular emphysema, hyperlipidemia, GERD, and anxiety admitted for right knee pain. Chief complaint: Right knee pain Interval History: Patient seen after aspiration procedure this afternoon. Sitting comfortably on bedside commode. In no acute distress at this time denied any pain or tenderness to palpation to right knee. Patient hadyet to get up and ambulate. OBJECTIVE Vitals: 24hr Min/Max: Temp Min: 36 ??C (96.8 ??F) Max: 36.7 ??C (98 ??F) Pulse Min: 66 Max: 82 BP Min: 107/64 Max: 122/63 Resp Min: 18 Max: 20 SpO2 Min: 92 % Max: 98 % Most Recent : Vitals: 02/21/24 1117 BP: 107/64 Pulse: 66 Resp: 18 Temp: 36 ??C (96.8 ??F) SpO2: 96% I/O last 2 completed shifts: In: 3612 [P.O.:920; I.V.:2692] Out: 1700 [Urine:1700] I/O this shift: In: 240 [P.O.:240] Out: 400 [Urine:400] Physical Exam Vitals and nursing note reviewed. Constitutional: Appearance: She is obese. Comments: Patient seen after aspiration procedure this afternoon. In no acute distress. Patient is not ill or toxic appearing HENT: Head: Normocephalic and atraumatic. Nose: Nose normal. Mouth/Throat: Mouth: Mucous membranes are moist. Eyes: Extraocular Movements: Extraocular movements intact. Cardiovascular: Rate and Rhythm: Normal rate and regular rhythm. Heart sounds: Normal heart sounds. No murmur heard. No friction rub. No gallop. Pulmonary: Effort: Pulmonary effort is normal. No respiratory distress. Breath sounds: Normal breath sounds. No stridor. No wheezing, rhonchi or rales. Abdominal: General: Bowel sounds are normal. Palpations: Abdomen is soft. Tenderness: There is no abdominal tenderness. There is no guarding or rebound. Hernia: No hernia is present. Musculoskeletal: General: No swelling or tenderness. Cervical back: Normal range of motion. Comments: No tenderness to palpation of his right knee. No edema or erythema noted Skin: General: Skin is warm and dry. Findings: No bruising or erythema. Neurological: General: No focal deficit present. Mental Status: She is alert and oriented to person, place, and time. Psychiatric: Mood and Affect: Mood normal. Lab/Current Medication Review: Recent Results (from the past 24 hour(s)) Comprehensive metabolic panel Collection Time: 02/21/24 3:37 AM Result Value Ref Range Sodium 139 135 - 145 mmol/L Potassium, pl 4.0 3.3 - 4.9 mmol/L Chloride 97 97 - 110 mmol/L CO2 36 (H) 22 - 32 mmol/L Anion gap 7 2 - 15 mmol/L BUN 5 (L) 6 - 25 mg/dL Creatinine 0.49 (L) 0.60 - 1.10 mg/dL Glucose 117 70 - 199 mg/dL Calcium 9.1 8.5 - 10.3 mg/dL Bilirubin, total <0.2 0.1 - 1.2 mg/dL Protein, pl 5.4 (L) 6.5 - 8.5 g/dL Albumin 2.5 (L) 3.5 - 5.0 g/dL Alk phos 89 40 - 130 Units/L ALT 26 7 - 45 Units/L AST 19 10 - 45 Units/L Magnesium Collection Time: 02/21/24 3:37 AM Result Value Ref Range Magnesium 2.0 1.4 - 2.5 mg/dL Phosphorus Collection Time: 02/21/24 3:37 AM Result Value Ref Range Phosphorus, pl 3.3 2.3 - 4.5 mg/dL CBC with auto differential Collection Time: 02/21/24 3:37 AM Result Value Ref Range WBC 6.7 3.8 - 9.9 K/cumm Hgb 9.2 (L) 11.9 - 15.5 g/dL Hct 29.9 (L) 35.6 - 45.5 % Plt 428 (H) 150 - 400 K/cumm MPV 8.0 (L) 9.1 - 12.3 fL RBC 3.12 (L) 3.90 - 5.20 M/cumm MCV 95.8 81.3 - 96.4 fL MCH 29.5 27.1 - 33.3 pg MCHC 30.8 (L) 32.3 - 35.7 g/dL RDW CV 16.9 (H) 11.1 - 14.9 % RDW SD 59.7 (H) 35.7 - 48.1 fL NRBC abs 0.00 0.00 - 0.01 K/cumm Differential, auto Collection Time: 02/21/24 3:37 AM Result Value Ref Range Neutrophil abs 4.3 1.5 - 6.5 K/cumm Imm gran abs 0.0 0.0 - 0.1 K/cumm Lymphocyte abs 2.0 0.8 - 3.3 K/cumm Monocyte abs 0.2 0.2 - 0.8 K/cumm Eosinophil abs 0.1 0.0 - 0.5 K/cumm Basophil abs 0.0 0.0 - 0.1 K/cumm Neutrophil pct 64.3 % Imm gran pct 0.5 % Lymphocyte pct 30.6 % Monocyte pct 2.4 % Eosinophil pct 1.7 % Basophil pct 0.5 % eGFR Collection Time: 02/21/24 3:37 AM Result Value Ref Range eGFR >90 >=60 mL/min/1.73 m2 Aerobic and anaerobic culture and gram stain Aspirate Knee, right Collection Time: 02/21/24 9:50 AM Specimen: Knee, right; Aspirate Result Value Ref Range Direct Specimen Exam Stain: No polymorphonuclear leukocytes seen. No organisms seen. Crystal Analysis, Body Fluid Collection Time: 02/21/24 9:50 AM Result Value Ref Range Specimen type, fld Synovial Body site, fld Right knee Crystals None Seen US Guided Aspiration or Injection of Major Joint Result Date: 02/21/2024 Narrative: EXAMINATION: Right popliteal bursal cyst/Moseley's cyst aspiration under ultrasound guidance HISTORY: Right knee pain with swelling and elevated inflammatory markers. Aspiration is requestedfor diagnosis. ATTENDING PRESENCE: Dr. Ahsan Dinh M.D., the attending radiologist, was present from the beginning to the end of the procedure. SEDATION: The patient did not require conscious sedation for the procedure. TECHNIQUE: The risks, benefits and alternatives were discussed and informed consent was obtained. Prior to beginning the procedure, universal Protocol was performed to confirm the patient's identity and the planned procedure. Sterile barriers used during the procedure included cap, mask, hand hygiene, sterile gloves, and sterile drape. Chloraprep was used for cutaneous antisepsis. The patient was placed supine on the fluoroscopy table. The right popliteal fossa cyst/Moseley's cyst was localized with ultrasound guidance. Local anesthesia was achieved with subcutaneous injection of 1% lidocaine 2 mL. An 18 gauge needle was then introduced into the cyst under ultrasound guidance. 5 mL of fluid was aspirated. The needle was removed. The skin was cleansed with hydrogen peroxide, and a bandage was placed. There were no complications of the procedure. ESTIMATED BLOODLOSS: None CONDITION: Stable condition. DISCHARGED TO: Patient care division FINDINGS: Sonographic images confirm intra bursal position of the needle tip with subsequent decompression. IMPRESSION: 1.Left popliteal fossa cyst/Moseley's cyst aspiration under ultrasound guidance. THIS IS AN ELECTRONICALLY VERIFIED FINAL REPORT 02/21/2024 10:58 AM - Electronically signed by Ahsan Gonzáles M.D. MF: [id number] Report ID: [id number] Reading Location:[id number] US Lower Extremity Right Limited Result Date: 02/20/2024 Narrative: EXAM DESCRIPTION: US LOWER EXTREMITY RIGHT LIMITED REASON FOR STUDY: Pain TECHNIQUE: A Dynamic assessment was performed of the right lower extremity by the microwave radio technician, with selected grayscale and color Doppler images acquired and recorded in PACS. COMPARISON: No prior studies are available for comparison at time of this dictation. FINDINGS: There is a fluid collection within the popliteal fossa which appears anechoic. This measures 3.0 x 5.5 x 0.9 cm. This is compatible with a popliteal cyst. IMPRESSION: Popliteal cyst measuring 3.0 x 5.5 x 0.9 cm. THIS IS AN ELECTRONICALLY VERIFIED FINAL REPORT 02/20/2024 3:48 PM - Electronically signed by Jonn Lopez M.D.MM: MM Report ID: [id number] Reading Location: [id number] XR Knee Right 3 Views Result Date: 02/20/2024 Narrative: EXAM DESCRIPTION: XR KNEE RIGHT 3 VIEWS REASON FOR STUDY: pain TECHNIQUE: 3 radiographicview(s) of the right knee . COMPARISON: No prior studies are available for comparison at time of this dictation. FINDINGS: BONES/JOINTS: There is no acute fracture, malalignment or osseous abnormality. The joint spaces are normal. SOFT TISSUES: Mild nonspecific soft tissue swelling of the knee. IMPRESSION: No acute osseous abnormality. THIS IS AN ELECTRONICALLY VERIFIED FINAL REPORT 02/20/2024 3:47PM - Electronically signed by Jonn Lopez M.D. MM: MM Report ID: [id number] Reading Location: [id number] ECG 12 lead Result Date: 02/19/2024 Narrative: Vent Rate: 79 bpm RR Interval: 759 msec LA Interval: 139 msec QRS Duration: 90 msec QT Interval: 352 msec QTC Interval: 386 msec P-R-T [place]: 36 - 9 - 7 degrees IMPRESSION: SINUS RHYTHM MINIMAL ST DEPRESSION [0.025+ mV ST DEPRESSION] BORDERLINE ECG NO CHANGE FROM PREVIOUS TRACING NOTED Electronically Signed By: Cruz Espinoza MD XR CHEST 1 VIEW PORTABLE Result Date: 02/18/2024 Narrative: EXAM DESCRIPTION: XR CHEST 1 VIEW REASON FOR STUDY: Dyspnea. Hypoxemia. Pt has right legswelling. Pt states she feels like crap. Patient has full O2 tank, no wheelchair available w/ caddyfor tank history of COPD on oxygen and chronic tremors presents with her with complaints ofprogressive weakness and shortness of breath. TECHNIQUE: Single radiographic view(s) of the chest. COMPARISON: 05/30/2023, 03/29/2023 FINDINGS: LUNGS: Abnormal density is seen at the medial right base. This may represent posterior atelectasis. Underlying chronic lung changes are noted. The left lung appears better preserved. HEART/MEDIASTINUM: Cardiac silhouette normal in size. Mediastinal and hilar contours appear normal. LINES/TUBES: None. BONES: No acute osseous abnormality. IMPRESSION: Multiple atelectasis at the left base. Similar findings are noted on prior CT scans from 2022.. This could represent recurrent pneumonia. Follow-up to ensure clearing is needed. THIS IS AN ELECTRONICALLY V ERIFIED FINAL REPORT 02/18/2024 9:08 PM - Electronically signed by Tom Mora M.D. KH: KH Report ID: [id number] Reading Location: [id number] Current Facility-Administered Medications Medication Dose Route Frequency Provider Last Rate Last Admin acetaminophen (TYLENOL) tablet 650 mg 650 mg oral Q4H PRN Peggy Hernandez MD 650 mg at02/20/24 0913 benzocaine-menthoL (CHLORASEPTIC) lozenge 1 lozenge 1 lozenge mouth/throat Q4H PRN Josef Momin MD 1 lozenge at 02/20/24 0829 benzonatate (TESSALON) capsule 100 mg 100 mg oral TID PRN Josef Momin MD 100 mg at 02/20/24 0348 bisacodyl EC (DULCOLAX EC) tablet 10 mg 10 mg oral Daily PRN Peggy Hernandez MD budesonide-formoteroL (SYMBICORT) 160-4.5 mcg/actuation inhaler 2 puff 2 puff inhalation BID (RT) Lew Chavez MD 2 puff at 02/20/242026 calcium carbonate (TUMS) chewable tablet 500 mg 200 mg of elemental calcium oral Daily Peggy Hernandez MD 500 mg at 02/21/24 0852 citalopram (CeleXA) tablet 20 mg 20 mg oral Daily Peggy Hernandez MD 20 mg at 853 clonazePAM (KlonoPIN) tablet 1 mg 1 mg oral Daily Peggy Hernandez MD 1 mg at 02/21/24 08 enoxaparin (LOVENOX) syringe 40 mg 40 mg subcutaneous Daily-2100 Peggy Hernandez MD 40mg at 02/20/242002 furosemide (LASIX) tablet 10 mg 10 mg oral Daily Peggy Hernandez MD 10 mg at 02/21/24 0853 ipratropium (ATROVENT) 0.02 % nebulizer solution 0.5 mg 0.5 mg nebulization Q6H GALINA (RT) Lew Chavez MD 0.5 mg at 02/21/24 0152 ipratropium-albuteroL (DUO-NEB) 0.5-2.5 mg/3 mL nebulizer solution 3 mL 3 mL nebulization Q6H PRN (RT) Mio Minor PA Lactated Ringer's (LR) infusion 100 mL/hr intravenous Continuous Peggy Hernandez MD 100 mL/hr at 02/21/24 0621 100 mL/hr at 02/21/24 0621 magnesium hydroxide (MILK OF MAGNESIA) 80 mg/mL (33.3 mg/mL as elemental magnesium) oral [id number] mL 30 mL oral Daily PRN Peggy Hernandez MD 30 mL at 02/20/24 1309 mineral oil (FLEET MINERAL OIL) enema 133 mL 1 enema rectal Daily PRN Peggy Hernandez MD ondansetron ODT (ZOFRAN-ODT) disintegrating tablet 4 mg 4 mg oral Q6H PRN Peggy Hernandez MD Or ondansetron (ZOFRAN) injection 4 mg 4 mg intravenous Q6H PRN Peggy Hernandez MD pantoprazole DR (PROTONIX) extended release tablet 40 mg 40 mg oral Daily Peggy Hernandez MD 40 mg at 02/21/24 0853 polyethylene glycol (MIRALAX) packet 17 g 17 g oral Daily PRN Peggy Hernandez MD 17 g at 02/21/24 0852 pramipexole (MIRAPEX) tablet 1.5 mg 1.5 mg oral BID Peggy Hernandez MD 1.5 mg at 02/21/24851 primidone (MYSOLINE) tablet 250 mg 250 mg oral Daily Peggy Hernandez MD 250 mg at 02/21/24851 propranoloL (INDERAL) tablet 80 mg 80 mg oral QAM Peggy Hernandez MD 80 mg at And propranoloL (INDERAL) tablet 40 mg 40 mg oral Nightly Peggy Hernandez MD 40 mg at 02/20/242003 rosuvastatin (CRESTOR) tablet 10 mg 10 mg oral Nightly Peggy Hernandez MD 10 mg at 02/20/242004 A/P: Principal Problem: Chronic pain of right knee Active Problems: Moseley's cyst of knee, right Centrilobular emphysema (HCC) Essential tremor Hyperlipidemia GERD without esophagitis Anxiety Depression Resolved Problems: No resolved hospital problems. Chronic pain of right knee Moseley's cyst of knee, right -Patient presented to ED complaining of significant pain and swelling to right knee for past few weeks, stating it has worsened ever since her left hip replacement in 08/2023. Denies any recent fallsor trauma. -Bedside US done by Dr. Chavez denoted small fluid sac behind knee, consistent with Moseley's cyst. Patient states that she has had a steroid injection before which helped with her pain. She is fearful of going back home and not being able to ambulate well and is interested in rehab temporarily. -Tylenol has provided symptomatic relief, will continue at this time -Moseley's cyst aspiration done on 02/20 showed no crystals seen. Preliminary aerobic and anaerobic cultures and Gram stains from aspirate of right knee shows no PMNs or organisms seen. Patient likely also has arthritis of that knee that is also causing discomfort -Continue Tylenol q.4 hours p.r.n.. -Still considering rehab facility, depending on how patient does with walking. Centrilobular emphysema Oxygen use, 3L -History of centrilobular emphysema with last admission from 03/29-04/01 for COPD exacerbation. Patient had increased sputum production at that time in addition to cough, fever and vitals supporting diagnosis. Placed on Prednisone and Levaquin for 5 days with good response. Patient also notedto have lymphadenopathy on chest CT that has been followed by pulmonology as well -On admission, CXR showed mild changes in left lower lobe, concerning for atelectasis and possibly PNA. However, PE, vitals, and labs ruled this out. No need for antibiotic treatment at this time. -Patient on 3 L at baseline, currently on 4 L. Will continue to monitor -Continue DuoNeb treatment q.6 hours p.r.n.. Will continue Symbicort and Atrovent during hospital stay as well -Will discharge patient with albuterol inhaler Essential tremor -Patient has history of essential tremor and is on home Pramipexole 1.5mg BID, will continue duringhospital stay Hyperlipidemia -Previous diagnosis of HLD. No record of most recent lipid panel. -Patient currently on Crestor 10mg, will continue during hospital stay -Recommend lipid panel from PCP upon discharge GERD without esophagitis -No report of cough, regurgitation, chest pain or dysphagia. -On home Nexium 20mg daily, will continue with Protonix 40mg daily Anxiety Depression -No SI or HI reported. Patient remains pleasant and in no acute distress. -On home Celexa 20mg daily, will continue GI PPX: Protonix 40mg DVT PPx: Lovenox 40mg Consults: PT/OT, IR Code Status: Full code Dispo: Likely discharge in 1-2 days Peggy Hernandez MD Critical access hospital Medicine Residency-PGY1 [facility] Date of Service: 02/21/2024 2:10 PM Cosigned by Josef Ramirez Jr., MD at 02/21/2024 2:57 PM CDT Associated attestation - Josef Ramirez Jr., MD - 02/21/2024 2:57 PM CDT I personally saw and examined the patient and discussed the case with the resident. I have reviewedthe resident's note and agree with the content and plan as written. Discussed plan of care with the patient and her daughter at bedside, will likely need SNF placementif ambulation does not significantly improve after popliteal cyst drainage. My total encounter time on 02/21/24 was 35 minutes which was spent in the activities documented in the note. This includes time spent prior to the visit and after the visit in direct care of the patient. This time does not include time spent in any separately reportable services. Josef Ramirez Jr., MD * Sada Velasquez, SORT LINE - 02/21/2024 9:52 AM CDT Physical Therapy 02/21/24 0910 PT Last Visit Session Type Treatment Safe Environment Arm band checked;Patient found sitting in chair;Session completed bedside;Gait belt utilized for all out of bed mobility Pain Assessment Pain Assessment No/denies pain Bed Mobility 1 Bed Mobility From 1 Edge of bed Bed Mobility Type 1 To Bed Mobility to 1 Supine Level of Assistance 1 Minimum Assist Transfer 1 Transfer From 1 Chair with arms;Sit Transfer Type 1 To and from Transfer to 1 Stand Technique 1 Sit to stand;Stand to sit Transfer Device 1 No device;Hand held assist Transfer Level of Assistance 1 Minimum Assist;Contact Guard Assist Ambulation 1 Distance (ft) 1 3-4 steps x2 Device 1 Hand held assist;No device Assistance 1 Minimum Assist Gait: Requires assist with 1 Maintaining balance Gait: Requires verbal cues to 1 Improve upright posture;Increase step length Ambulation Comments 1 dec step length flexed posture short shuffled steps Safe Environment End of Therapy Session Safe Environment End of Therapy Session Patient left supine in bed;Call light within reach;Overbed table within reach Assessment Prognosis Good Problem List Decreased strength;Decreased endurance;Impaired balance;Decreased mobility Plan Plan If this is the last note, consider this the discharge summary Recommendation/Plan PT Recommendation/Plan Senior Living Facility Patient at high risk for Falls;Readmission;Injury due to decreased ability to care for self;Injury due to reduced functional status;Injury due to balance deficits Recommend SNF due to Risk of injury at home;Unable to safely care for self in the home;Skilled therapy needed to address care for self in the home;Skilled therapy needed to address functional deficits * Sada Velasquez, S[facility] - 02/20/2024 2:53 PM CDT Physical Therapy 02/20/24 1423 PT Last Visit Session Type Treatment Safe Environment Arm band checked;Patient found in supine;Session completed bedside;Gait belt utilized for all out of bed mobility Static Sitting Balance Static Sitting-Balance Support Bilateral upper extremity supported;Feet supported Static Sitting-Sitting Surface Bed Static Sitting-Level of Assistance Close supervision Static Sitting-Comment/# of Minutes pt leaning backwards Seated Seated-Exercises Lower extremity Reps/Sets 10 Bed Mobility 1 Bed Mobility From 1 Edge of bed Bed Mobility Type 1 To Bed Mobility to 1 Supine Level of Assistance 1 Minimum Assist Transfer 1 Transfer From 1 Commode-standard;Sit Transfer Type 1 To and from Transfer to 1 Stand Technique 1 Sit to stand;Stand to sit Transfer Device 1 Hand held assist Transfer Level of Assistance 1 Minimum Assist Safe Environment End of Therapy Session Safe Environment End of Therapy Session Patient left supine in bed;Call light within reach;Overbed table within reach Assessment Prognosis Good Problem List Decreased strength;Decreased endurance;Impaired balance;Decreased mobility Plan Plan If this is the last note, consider this the discharge summary Recommendation/Plan PT Recommendation/Plan Senior Living Facility Patient at high risk for Falls;Readmission;Injury due to decreased ability to care for self;Injury due to reduced functional status;Injury due to balance deficits Recommend SNF due to Risk of injury at home;Unable to safely care for self in the home;Skilled therapy needed to address care for self in the home;Skilled therapy needed to address functional deficits;Skilled therapy needed for patient to return to prior level of independence * Lorrie Steel, OT - 02/20/2024 1:30 PM CDT Occupational Therapy 02/20/24 0854 General Chart Reviewed Yes Session Type Evaluation OT Received On 02/20/24 Subjective Agreeable to Therapy Family/Caregiver Present No Home Living Type of Home House Bathroom Shower/Tub Walk-in shower with threshold Bathroom Equipment Shower chair Home Mobility Equipment-Available Crutches;Wheeled walker;Single point cane Home Mobility Equipment-Currently Using Wheeled walker Prior Function Level of [place] Independent with ADLs;Independent functional transfers;Independent with ambulation;Independent with homemaking with ambulation (patient has required assist recently) Lives With Spouse Receives Help From Spouse/Significant other Driving Yes ADL Assistance Independent Instrumental ADL (IADL) Assistance Independent (patient has had family assist with IADLs recently) Grooming Grooming: Where assessed Standing at sink Grooming: Equipment utilized (w/w) Grooming: Level of assistance Minimum Assist Grooming: Assistance with Wash/dry hands;Teeth care LE Dressing LE Dressing: Where assessed Edge of bed LE Dressing: Level of assistance Dependent LE Dressing: Assistance with Don/doff L sock;Don/doff R sock Toileting Toileting: Where assessed Toilet Toileting: Equipment utilized (w/w) Toileting: Level of assistance Moderate Assist Toileting: Assistance with Clothing management up;Clothing management down Room Mobility Room Mobility: Where assessed bed to bathroom to bedside chair Health Management: Equipment (w/w) Room Mobility: Level of Assistance Minimum Assist Room Mobility comment patient requires increased time to complete any functional mobility Toilet Transfers Toilet Transfer From Bed Toilet Transfer Type To Toilet Transfer to Standard toilet Toilet Transfer Technique Ambulating Toilet Transfer: Equipment Wheeled walker Toilet Transfers Minimal assistance Pain Assessment Pain Score 8 Pain Location Head Cognition Overall Cognitive Status WFL Arousal/Alertness Alert Orientation Oriented X4 (person, place, time, situation) Following Commands Follows all commands and directions without difficulty Compliance/Behavior Easy to engage Static Sitting Balance Static Sitting-Balance Support Bilateral upper extremity supported Static Sitting-Sitting Surface Bed Static Sitting-Level of Assistance Close supervision Static Standing Balance Static Standing-Balance Support Bilateral upper extremity supported Static Standing-Standing Surface Floor Static Standing-Level of Assistance Minimum assistance;Contact guard Bed Mobility 1 Bed Mobility From 1 Supine Bed Mobility Type 1 To Bed Mobility to 1 Edge of bed Level of Assistance 1 Minimum Assist Other Comments Comments Patient is very slow during functional mobility requiring a lot of increased time and cueing to complete Assessment Prognosis Good Problem List Decreased safe judgment during ADL;Decreased endurance;Decreased functional mobility;Decreased ADL independence Barriers to Discharge None Plan Plan Plan of care initiated;If this is the last note, consider this the discharge summary Recommendation/Plan OT Recommendation Senior Living Facility Patient at high risk for Falls;Injury due to decreased ability to care for self;Injury due to reduced functional status;Injury at home as patient has not returned to prior level of function Recommend SNF due to Risk of injury at home;Unable to safely care for self in the home;Skilled therapy needed to address care for self in the home;Skilled therapy needed to address functional deficits;Skilled therapy needed for patient to return to prior level of independence OT Frequency during current admission 3-5x/wk Treatment/Interventions during current admission ADL/IADL retraining;Functional mobility training OT Evaluation Complete Yes Multi-Disciplinary Problems (from Occupational Therapy) Active Problems Problem: Dressings Lower Extremities Start Date: 02/20/24 Goal Start Date Expected End Date End Date STG - Patient to complete lower body dressing 02/20/24 02/27/24 -- Goal Details: MIN A Problem: Grooming Start Date: 02/20/24 Goal Start Date Expected End Date End Date STG - Patient will complete grooming 02/20/24 02/27/24 -- Goal Details: SBA standing at sink Problem: Toileting Start Date: 02/20/24 Goal Start Date Expected End Date End Date STG - Patient will complete toileting tasks with 02/20/24 02/27/24 -- Goal Details: SBA Problem: Transfers Start Date: 02/20/24 Goal Start Date Expected End Date End Date STG - Patient will perform toilet transfer 02/20/24 02/27/24 -- Goal Details: SBA using w/w * Peggy Hernandez MD - 02/20/2024 6:50 AM CDT Family Medicine Daily Progress Note SUBJECTIVE Linda Lake is a 74 y.o. female with a PMH of COPD on 3 L, centrilobular emphysema, hyperlipidemia, GERD, and anxiety admitted for right knee pain. Chief complaint: Right knee pain Interval History: Patient is sitting in chair this morning, in no acute distress. Continues to endorse same pain to right knee as yesterday but denies any new symptoms. Continues to deny any chest pain, shortness of breath, or abdominal pain. Tolerating foods and liquids well. No acute concerns at this time OBJECTIVE Vitals: 24hr Min/Max: Temp Min: 36 ??C (96.8 ??F) Max: 36.6 ??C (97.9 ??F) Pulse Min: 57 Max: 80 BP Min: 81/52 Max: 110/61 Resp Min: 18 Max: 18 SpO2 Min: 91 % Max: 98 % Most Recent : Vitals: 02/20/24 0318 BP: 110/61 Pulse: 73 Resp: 18 Temp: 36.4 ??C (97.6 ??F) SpO2: 95% I/O last 2 completed shifts: In: 2009 [I.V.:1000; IV Piggyback:1010] Out: - I/O this shift: In: 450 [P.O.:450] Out: - Physical Exam Vitals and nursing note reviewed. Constitutional: General: She is not in acute distress. Appearance: She is not ill-appearing, toxic-appearing or diaphoretic. Comments: Patient is sitting up in chair in no acute distress. Patient is not ill or toxic appearing HENT: Head: Normocephalic and atraumatic. Nose: Nose normal. Mouth/Throat: Mouth: Mucous membranes are moist. Eyes: Extraocular Movements: Extraocular movements intact. Cardiovascular: Rate and Rhythm: Normal rate and regular rhythm. Pulses: Normal pulses. Heart sounds: Normal heart sounds. No murmur heard. No friction rub. No gallop. Pulmonary: Effort: Pulmonary effort is normal. No respiratory distress. Breath sounds: Normal breath sounds. No stridor. No wheezing, rhonchi or rales. Abdominal: General: Abdomen is flat. Bowel sounds are normal. There is no distension. Palpations: Abdomen is soft. There is no mass. Tenderness: There is no abdominal tenderness. There is no guarding or rebound. Hernia: No hernia is present. Musculoskeletal: General: No swelling, tenderness, deformity or signs of injury. Normal range of motion. Cervical back: Normal range of motion and neck supple. Comments: Tenderness to palpation to right knee, however, no edema or erythema noted. Skin: General: Skin is warm and dry. Neurological: General: No focal deficit present. Mental Status: She is alert and oriented to person, place, and time. Psychiatric: Mood and Affect: Mood normal. Lab/Current Medication Review: Recent Results (from the past 24 hour(s)) Urinalysis reflex to microscopic and culture Urine Collection Time: 02/19/24 8:07 AM Specimen: Urine Result Value Ref Range Color, ur Yellow Yellow Clarity, ur Turbid (A) Clear Specific gravity, ur 1.016 1.003 - 1.030 pH, urine 6.0 Protein, ur ql 1+ (A) Negative Glucose, ur ql Negative Negative Ketones, ur Negative Negative Bilirubin, ur Negative Negative Blood, ur Trace (A) Negative Urobilinogen, ur <2.0 <2.0 mg/dL Nitrite, ur Negative Negative Leukocyte esterase, ur 4+ (A) Negative UA reflex comment Reflex to microscopic UA will be performed. Urinalysis, microscopic only Collection Time: 02/19/24 8:07 AM Result Value Ref Range WBC, ur >50 (A) 0 - 5 /HPF RBC, ur 6-10 (A) 0 - 2 /HPF Epithelial cells, squamous, ur 21-50 (A) 0 - 5 /HPF Bacteria, ur 1+ (A) Mucous, ur Present (A) Culture Reflex Comment Reflex to urine culture will be performed. Erythrocyte sedimentation rate Collection Time: 02/19/24 2:38 PM Result Value Ref Range Erythrocyte sedimentation rate >145 (H) 1 - 30 mm/hr Comprehensive metabolic panel Collection Time: 02/20/24 2:53 AM Result Value Ref Range Sodium 141 135 - 145 mmol/L Potassium, pl 3.9 3.3 - 4.9 mmol/L Chloride 101 97 - 110 mmol/L CO2 34 (H) 22 - 32 mmol/L Anion gap 6 2 - 15 mmol/L BUN 8 6 - 25 mg/dL Creatinine 0.47 (L) 0.60 - 1.10 mg/dL Glucose 85 70 - 199 mg/dL Calcium 9.3 8.5 - 10.3 mg/dL Bilirubin, total <0.2 0.1 - 1.2 mg/dL Protein, pl 5.3 (L) 6.5 - 8.5 g/dL Albumin 2.5 (L) 3.5 - 5.0 g/dL Alk phos 94 40 - 130 Units/L ALT 30 7 - 45 Units/L AST 30 10 - 45 Units/L Magnesium Collection Time: 02/20/24 2:53 AM Result Value Ref Range Magnesium 1.9 1.4 - 2.5 mg/dL Phosphorus Collection Time: 02/20/24 2:53 AM Result Value Ref Range Phosphorus, pl 3.0 2.3 - 4.5 mg/dL CBC with auto differential Collection Time: 02/20/24 2:53 AM Result Value Ref Range WBC 8.0 3.8 - 9.9 K/cumm Hgb 9.2 (L) 11.9 - 15.5 g/dL Hct 29.9 (L) 35.6 - 45.5 % Plt 438 (H) 150 - 400 K/cumm MPV 8.3 (L) 9.1 - 12.3 fL RBC 3.12 (L) 3.90 - 5.20 M/cumm MCV 95.8 81.3 - 96.4 fL MCH 29.5 27.1 - 33.3 pg MCHC 30.8 (L) 32.3 - 35.7 g/dL RDW CV 16.9 (H) 11.1 - 14.9 % RDW SD 59.1 (H) 35.7 - 48.1 fL NRBC abs 0.00 0.00 - 0.01 K/cumm Differential, auto Collection Time: 02/20/24 2:53 AM Result Value Ref Range Neutrophil abs 5.0 1.5 - 6.5 K/cumm Imm gran abs 0.0 0.0 - 0.1 K/cumm Lymphocyte abs 2.7 0.8 - 3.3 K/cumm Monocyte abs 0.2 0.2 - 0.8 K/cumm Eosinophil abs 0.1 0.0 - 0.5 K/cumm Basophil abs 0.0 0.0 - 0.1 K/cumm Neutrophil pct 62.1 % Imm gran pct 0.4 % Lymphocyte pct 33.7 % Monocyte pct 2.6 % Eosinophil pct 0.8 % Basophil pct 0.4 % eGFR Collection Time: 02/20/24 2:53 AM Result Value Ref Range eGFR 101 mL/min/1.73 m2 ECG 12 lead Result Date: 02/19/2024 Narrative: Vent Rate: 79 bpm RR Interval: 759 msec LA Interval: 139 msec QRS Duration: 90 msec QT Interval: 352 msec QTC Interval: 386 msec P-R-T [place]: 36 - 9 - 7 degrees IMPRESSION: SINUS RHYTHM MINIMAL ST DEPRESSION [0.025+ mV ST DEPRESSION] BORDERLINE ECG NO CHANGE FROM PREVIOUS TRACING NOTED Electronically Signed By: Cruz Espinoza MD XR CHEST 1 VIEW PORTABLE Result Date: 02/18/2024 Narrative: EXAM DESCRIPTION: XR CHEST 1 VIEW REASON FOR STUDY: Dyspnea. Hypoxemia. Pt has right legswelling. Pt states she feels like crap. Patient has full O2 tank, no wheelchair available w/ caddyfor tank history of COPD on oxygen and chronic tremors presents with her with complaints ofprogressive weakness and shortness of breath. TECHNIQUE: Single radiographic view(s) of the chest. COMPARISON: 05/30/2023, 03/29/2023 FINDINGS: LUNGS: Abnormal density is seen at the medial right base. This may represent posterior atelectasis. Underlying chronic lung changes are noted. The left lung appears better preserved. HEART/MEDIASTINUM: Cardiac silhouette normal in size. Mediastinal and hilar contours appear normal. LINES/TUBES: None. BONES: No acute osseous abnormality. IMPRESSION: Multiple atelectasis at the left base. Similar findings are noted on prior CT scans from 2022.. This could represent recurrent pneumonia. Follow-up to ensure clearing is needed. THIS IS AN ELECTRONICALLY V ERIFIED FINAL REPORT 02/18/2024 9:08 PM - Electronically signed by Tom Mora M.D. KH: RAVIN Report ID: [id number] Reading Location: [id number] Current Facility-Administered Medications Medication Dose Route Frequency Provider Last Rate Last Admin acetaminophen (TYLENOL) tablet 650 mg 650 mg oral Q4H PRN Peggy Hernandez MD benzocaine-menthoL (CHLORASEPTIC) lozenge 1 lozenge 1 lozenge mouth/throat Q4H PRN Josef Momin MD 1 lozenge at 02/20/24 0348 benzonatate (TESSALON) capsule 100 mg 100 mg oral TID PRN Josef Momin MD 100 mg at 02/20/24 0348 bisacodyl EC (DULCOLAX EC) tablet 10 mg 10 mg oral Daily PRN Peggy Hernandez MD calcium carbonate (TUMS) chewable tablet 500 mg 200 mg of elemental calcium oral Daily Peggy Hernandez MD 500 mg at 02/19/24 1235 citalopram (CeleXA) tablet 20 mg 20 mg oral Daily Peggy Hernandez MD 20 mg at clonazePAM (KlonoPIN) tablet 1 mg 1 mg oral Daily Peggy Hernandez MD enoxaparin (LOVENOX) syringe 40 mg 40 mg subcutaneous Daily-2100 Peggy Hernandez MD 40mg at 02/19/242047 furosemide (LASIX) tablet 10 mg 10 mg oral Daily Peggy Hernandez MD ipratropium-albuteroL (DUO-NEB) 0.5-2.5 mg/3 mL nebulizer solution 3 mL 3 mL nebulization Q6H PRN (RT) Mio Minor PA Lactated Ringer's (LR) infusion 100 mL/hr intravenous Continuous Peggy Hernandez MD 100 mL/hr at 02/20/24 0224 100 mL/hr at 02/20/24223 magnesium hydroxide (MILK OF MAGNESIA) 80 mg/mL (33.3 mg/mL as elemental magnesium) oral [id number] mL 30 mL oral Daily PRN Peggy Hernandez MD mineral oil (FLEET MINERAL OIL) enema 133 mL 1 enema rectal Daily PRN Peggy Hernandez MD ondansetron ODT (ZOFRAN-ODT) disintegrating tablet 4 mg 4 mg oral Q6H PRN Peggy Hernandez MD Or ondansetron (ZOFRAN) injection 4 mg 4 mg intravenous Q6H PRN Peggy Hernandez MD pantoprazole DR (PROTONIX) extended release tablet 40 mg 40 mg oral Daily Peggy Hernandez MD 40 mg at 02/19/241627 polyethylene glycol (MIRALAX) packet 17 g 17 g oral Daily PRN Peggy Hernandez MD 17 g at 02/19/242045 pramipexole (MIRAPEX) tablet 1.5 mg 1.5 mg oral BID Peggy Hernandez MD 1.5 mg at 02/19/242046 primidone (MYSOLINE) tablet 250 mg 250 mg oral Daily Hernandez, Peggy Hayde, MD 250 mg at 02/19/24 1125 propranoloL (INDERAL) tablet 80 mg 80 mg oral QAM Peggy Hernandez MD And propranoloL (INDERAL) tablet 40 mg 40 mg oral Nightly Peggy Hernandez MD rosuvastatin (CRESTOR) tablet 10 mg 10 mg oral Nightly Peggy Hernandez MD 10 mg at 02/19/242047 A/P: Principal Problem: Chronic pain of right knee Active Problems: Moseley's cyst of knee, right Centrilobular emphysema (HCC) Essential tremor Hyperlipidemia GERD without esophagitis Anxiety Depression Resolved Problems: No resolved hospital problems. Chronic pain of right knee Moseley's cyst of knee, right -Patient presented to ED complaining of significant pain and swelling to right knee for past few weeks, stating it has worsened ever since her left hip replacement in 08/2023. Denies any recent fallsor trauma. -Bedside US done by Dr. Chavez denoted small fluid sac behind knee, consistent with Moseley's cyst. Patient states that she has had a steroid injection before which helped with her pain. She is fearful of going back home and not being able to ambulate well and is interested in rehab temporarily. -Tylenol has provided symptomatic relief, will continue at this time -Aspiration of right knee will be done tomorrow, 02/20, with anticipated discharge home afterwards. Centrilobular emphysema Oxygen use, 3L -History of centrilobular emphysema with last admission from 03/29-04/01 for COPD exacerbation. Patient had increased sputum production at that time in addition to cough, fever and vitals supporting diagnosis. Placed on Prednisone and Levaquin for 5 days with good response. Patient also notedto have lymphadenopathy on chest CT that has been followed by pulmonology as well -On admission, CXR showed mild changes in left lower lobe, concerning for atelectasis and possibly PNA. However, PE, vitals, and labs ruled this out. No need for antibiotic treatment at this time. -No fevers, chills, chest pain, shortness on breath, cough, or increase in sputum production. Vitals have remained stable -Patient is on 3L at baseline, presently on 3.5L. Will continue during hospital stay and monitor oxygenation status for worsening of symptoms Essential tremor -patient has history of essential tremor and is on home Pramipexole 1.5mg BID, will continue duringhospital stay Hyperlipidemia -Previous diagnosis of HLD. No record of most recent lipid panel. Patient currently on Crestor 10mg, will continue during hospital stay GERD without esophagitis -No report of cough, regurgitation, chest pain or dysphagia. -On home Nexium 20mg daily, will continue with Protonix 40mg daily Anxiety Depression -No SI or HI reported. Patient remains pleasant and in no acute distress. -On home Celexa 20mg daily, will continue GI PPX: Protonix 40mg DVT PPx: Lovenox 40mg Consults: PT/OT Code Status: Full code Dispo: Likely discharge home tomorrow Peggy Hernandez MD [facility]PGY[facility] Date of Service: 02/20/2024 6:50 AM Cosigned by Josef Ramirez Jr., MD at 02/20/2024 5:32 PM CDT Associated attestation - Josef Ramirez Jr., MD - 02/20/2024 5:32 PM CDT I personally saw and examined the patient and discussed the case with the resident. I have reviewedthe resident's note and agree with the content and plan as written. Official ultrasound of the suspected large right Moseley's cyst required per discussion with radiology before they will attempt to extract a sample of the fluid for testing. May be able to discharge home if the pain is sufficiently relieved with fluid drainage. SNF placement in process in case this does not sufficiently relieve her pain. MDM: moderate complexity Josef Ramirez Jr., MD * Josef Solis, PT - 02/19/2024 4:19 PM CDT Physical Therapy 02/19/24 3236 General Chart Reviewed Yes Session Type Evaluation PT Received On 02/19/24 Safe Environment Arm band checked;Patient found in supine;Session completed bedside;Gait belt utilized for all out of bed mobility Subjective Agreeable to Therapy Family/Caregiver Present Yes Physical Therapy-Patient Goal to go to bounce back to get stronger Precautions Precautions Fall risk Home Living Type of Home House Home Layout One level;Basement Home Access Stairs to enter with rails Entrance Stairs-Rails Right Entrance Stairs-Number of Steps 2 Home Mobility Equipment-Available Wheeled walker;Single point cane Home Mobility Equipment-Currently Using Wheeled walker Prior Function Level of [place] Needs assistance with ADLs;Needs assistance with ambulation;Needs assistance with functional transfers (was indep has needed assist the past few days) Lives With Spouse Receives Help From Spouse/Significant other Driving Yes Fall within the last 6 months No Prior Function Comments Aug fell out of bed and broke left hip Pain Assessment Pain Assessment 0-10 Pain Score 10 - Worst possible pain Pain Type Acute pain Pain Location Knee Pain Orientation Right Cognition Overall Cognitive Status WFL Orientation Oriented X4 (person, place, time, situation) Compliance/Behavior Easy to engage Balance Balance Yes Static Sitting Balance Static Sitting-Balance Support Bilateral upper extremity supported;Feet supported Static Sitting-Sitting Surface Bed Static Sitting-Level of Assistance Close supervision Static Standing Balance Static Standing-Balance Support Bilateral upper extremity supported Static Standing-Standing Surface Floor Static Standing-Level of Assistance Minimum assistance Static Standing-Comment/# of Minutes pt fearful of falling Bed Mobility 1 Bed Mobility From 1 Supine Bed Mobility Type 1 To Bed Mobility to 1 Edge of bed Level of Assistance 1 Contact Guard Assist;Minimum Assist Bed Mobility Comments 1 pt needs assist of the bedrail to elevate trunk Transfer 1 Transfer From 1 Bed;Sit Transfer Type 1 To and from Transfer to 1 Stand;Toilet Technique 1 Sit to stand;Stand to sit Transfer Device 1 Wheeled walker Transfer Level of Assistance 1 Minimum Assist Trials/Comments 1 pt fearful of falling Ambulation 1 Distance (ft) 1 15' x 2 Surface 1 Level tile Device 1 Wheeled walker Assistance 1 Minimum Assist;Moderate Assist Gait: Requires assist with 1 Maintaining balance;Preventing knee buckling Quality of Gait 1 LLE IR, bilat knees slightly flexed, dec; sourav, step length and sourav Ambulation Comments 1 pt fearful of faling RLE Assessment RLE Assessment X (arom wfl, gross strength 3/5) LLE Assessment LLE Assessment X (arom wfl, gross strength 3/5) Basic Mobility - 6 Click How much difficulty does the patient have: Turning over in bed 3 How much difficulty does the patient currently have: Sitting down and standing up from a chair witharms? 3 How much difficulty does the patient have: Moving from lying on back to sitting on the side of the bed? 3 How much difficulty does the patient have: Moving to and from a bed to a chair including wheelchair? 3 How much help does the patient currently need: Walk in hospital room? 2 How much help from another person does the patient currently need: Climbing 3-5 steps with a railing? 2 Total 6 Click Score (range 6-24) 16 Score Interpretation 38.32 Safe Environment End of Therapy Session Safe Environment End of Therapy Session Patient left in recliner;RN notified;Call light within reach;Overbed table within reach Assessment Prognosis Good Problem List Gait deviations;Decreased strength;Decreased endurance;Impaired balance;Decreased mobility;Pain Barriers to Discharge Current Mobility Status Plan Plan Plan of care initiated;If this is the last note, consider this the discharge summary Recommendation/Plan PT Recommendation/Plan Senior Living Facility (pt would like to go to [facility] in [place]) Patient at high risk for Falls;Readmission;Injury due to decreased ability to care for self;Injury due to reduced functional status;Injury due to balance deficits Recommend SNF due to Risk of injury at home;Unable to safely care for self in the home;Skilled therapy needed to address care for self in the home;Skilled therapy needed to address functional deficits;Skilled therapy needed for patient to return to prior level of independence PT Frequency during current admission Daily Treatment/Interventions during current admission Bed mobility;Functional transfer training;Gait training;Therapeutic exercise PT Equipment Recommended None PT Evaluation Complete Yes Multi-Disciplinary Problems (from Physical Therapy) Active Problems Problem: [place] [facility]: 02/19/24 Goal Start Date Expected End Date End Date PT [place] [facility] 02/19/24 02/26/24 -- Goal Details: Pt to require/be cga with bed mobility consistently to increase functional mobility. Goal Start Date Expected End Date End Date PT [place]TG [place] [facility] [place] 02/19/24 02/26/24 -- Goal Details: Pt to require/be cga>min assist with all transfers consistently to increase functional mobility and safety. Goal Start Date Expected End Date End Date PT [place]TG [place] [facility] [place] 02/19/24 02/26/24 -- Goal Details: Pt to ambulate 75-100' cga>min assist with a fww consistently, to increase functional mobility and safety. documented in this encounter H&P Notes * Peggy Hernandez MD - 02/19/2024 2:48 PM CDT History and Physical Family Medicine Service Date of service: 02/19/24 Chief Complaint: Right knee pain Primary care provider: Lyla Perry MD HPI: Linda Lake is a 74 y.o. female with a PMH of COPD on 3 L, centrilobular emphysema, hyperlipidemia, GERD, and anxiety presenting for significant right knee pain for past few weeks. Patient states that she had a left hip replacement in August of 2023 and ever since then has had significant pain to her right knee. Patient states she has noticed swelling and tenderness to the back of her right knee and it has worsened over the past few weeks. Denies any recent falls or trauma. No swelling or tenderness noted to left knee. Of note, patient was initially thought to have pneumonia based off of cough with positive sputum production, however, patient has history of COPD and while she admits that she does have cough with sputum production it is not any more than what she usually has. Presently, patient does not endorse any chest pain, shortness on breath, cough, increasing sputum production, fever, chills, nausea, or vomiting. She otherwise feels fine, however, is afraid ofgoing back home due to her not being able to ambulate well secondary to her right knee pain. Patient is interested in rehab/therapy to assist with her ambulation at home. In the ED, vitals stable apart from temporarily low blood pressures in the 80s over 50s. Patient never had tachycardia or increased respirations. CMP values were all within normal limits, glucose level was normal at 132. CBC proved normal with no elevation of WBC. H&H both stable. Chest x-ray obtained showed multiple atelectasis at left base. Similar findings are noted on prior CT scans from 2022. This scan, however, does not seem to represent pneumonia. Patient later seen by rounding team and continue to endorse only discomfort to her right knee. Bedside ultrasound performed by Dr. Taylor showed small fluid collection to posterior fossa of knee. No notable erythema or significant edema present. No lesions, rashes, or injuries otherwise noted. Chest sounds notable for mild rhonchi, however no significant cough on examination. Patient continues to deny any increase in sputum production, worsening of cough, fever, or chills. Patient accepted by [facility], Josef Marino (Attending) and Dr. Peggy Hernandez MD (Resident). Past Medical History: Diagnosis Date Cancer (CMS/HCC) (HCC) Skin BCC COPD (chronic obstructive pulmonary disease) (HCC) Deviated nasal septum Occasional tremors Hands and Head, going to see Neurologist Peptic ulceration Tachycardia Past Surgical History: Procedure Laterality Date BUNIONECTOMY Right ELBOW SURGERY Right Tendonitis OTHER SURGICAL HISTORY basal cell carcinoma THUMB SURGERY Arthroplasty Medications Prior to Admission Medication Sig Dispense Refill Last Dose calcium carbonate (OS-ERUM) 1,500 mg (600 mg [...] tablets (10 mg total) by mouth daily multivitamin capsule Take 1 capsule by mouth daily omega [id number] oil 1,000 mg (120 mg-180 mg) capsule Take 1 capsule (1,000 mg total) by mouth 2 (two) times a day pramipexole (MIRAPEX) 1.5 mg tablet Take 1 tablet (1.5 mg total) by mouth 2 (two) times a day primidone (MYSOLINE) 250 mg tablet Take 1 tablet (250 mg total) by mouth daily propranolol LA (INDERAL LA) 60 mg 24 hr capsule Take 1 capsule (60 mg total) by mouth 2 (two) timesa day rosuvastatin (CRESTOR) 10 mg tablet Take 1 tablet (10 mg total) by mouth nightly at bedtime. Trelegy Ellipta 200-62.5-25 mcg inhaler INHALE 1 PUFF ONCE DAILY 180 each 0 Allergies Allergen Reactions Ibuprofen Rash Social History Tobacco Use Smoking status: Former Current packs/day: 0.00 Average packs/day: 1 pack/day for 50.0 years (50.0 ttl pk-yrs) Types: Cigarettes Start date: 05/18/1972 Quit date: 05/18/2022 Years since quittin.7 Smokeless tobacco: Never Substance and Sexual Activity Drug use: Not Currently Types: Tobacco Sexual activity: Defer Alcohol Use: Not At Risk (03/29/2023) AUDIT-C Frequency of Alcohol Consumption: Never Average Number of Drinks: Not on file Frequency of Binge Drinking: Not on file Family History Problem Relation Age of Onset Cancer Mother Hypertension Father Parkinsonism Father Heart disease Paternal Grandfather Scleroderma Daughter Review of Systems: Review of Systems Constitutional: Negative for chills, diaphoresis, fever, malaise/fatigue and weight loss. Respiratory: Negative for cough, hemoptysis, sputum production, shortness of breath and wheezing. While patient does endorse history of COPD and continuance of 3 L of supplemental oxygen, she does not endorse worsening of cough or increase in sputum production. Cardiovascular: Negative for chest pain, palpitations and leg swelling. Gastrointestinal: Negative for abdominal pain, constipation, diarrhea, nausea and vomiting. Musculoskeletal: Positive for joint pain. Patient reports significant tenderness with swelling to right knee. Difficulty with ambulation. Skin: Negative for rash. Neurological: Negative for dizziness, sensory change, weakness and headaches. OBJECTIVE Vitals: Arrival Vitals Temp 02/18/24 1743 37.8 ??C (100 ??F) Pulse 02/18/24 1745 81 Resp 02/18/24 1745 20 BP 02/18/24 1747 118/65 SpO2 02/18/24 1745 (!) 88 % Temp src 02/18/24 1743 Temporal Heart Rate Source -- Patient Position 02/19/24 1313 Lying;HOB 30 degrees BP Location 02/19/24 1313 Right arm FiO2 (%) -- 24hr Min/Max: Temp Min: 36 ??C (96.8 ??F) Max: 37.8 ??C (100 ??F) Pulse Min: 57 Max: 81 BP Min: 80/56 Max: 118/65 Resp Min: 18 Max: 20 SpO2 Min: 88 % Max: 98 % Most Recent : Vitals: 02/19/24 1313 BP: 93/62 Pulse: 60 Resp: 18 Temp: 36 ??C (96.8 ??F) SpO2: 95% Intake/Output Summary (Last 24 hours) at 02/19/2024 1509 Last data filed at 02/19/2024 0900 Gross per 24 hour Intake 1010 ml Output -- Net 1010 ml Physical exam: Physical Exam Vitals and nursing note reviewed. Constitutional: General: She is not in acute distress. Appearance: She is not ill-appearing, toxic-appearing or diaphoretic. HENT: Head: Normocephalic and atraumatic. Nose: Nose normal. Mouth/Throat: Mouth: Mucous membranes are moist. Eyes: Extraocular Movements: Extraocular movements intact. Cardiovascular: Rate and Rhythm: Normal rate and regular rhythm. Heart sounds: Normal heart sounds. No murmur heard. No friction rub. No gallop. Pulmonary: Effort: Pulmonary effort is normal. No respiratory distress. Breath sounds: Normal breath sounds. No stridor. No wheezing, rhonchi or rales. Abdominal: General: Abdomen is flat. Bowel sounds are normal. Palpations: Abdomen is soft. Tenderness: There is no abdominal tenderness. There is no guarding or rebound. Hernia: No hernia is present. Musculoskeletal: General: Tenderness present. No swelling, deformity or signs of injury. Normal range of motion. Cervical back: Normal range of motion. Comments: Crepitus noted to bilateral knees with passive ROM. Pain with movement to right knee. No obvious signs of swelling, erythema or injury. No trauma to the knee. Skin: General: Skin is warm and dry. Neurological: General: No focal deficit present. Mental Status: She is alert and oriented to person, place, and time. Psychiatric: Mood and Affect: Mood normal. Lab/Radiology/Diagnostic Review: Recent Results (from the past 24 hour(s)) CBC with auto differential Collection Time: 02/18/24 6:14 PM Result Value Ref Range WBC 8.8 3.8 - 9.9 K/cumm Hgb 10.2 (L) 11.9 - 15.5 g/dL Hct 32.1 (L) 35.6 - 45.5 % Plt 447 (H) 150 - 400 K/cumm MPV 7.9 (L) 9.1 - 12.3 fL RBC 3.45 (L) 3.90 - 5.20 M/cumm MCV 93.0 81.3 - 96.4 fL MCH 29.6 27.1 - 33.3 pg MCHC 31.8 (L) 32.3 - 35.7 g/dL RDW CV 17.0 (H) 11.1 - 14.9 % RDW SD 58.1 (H) 35.7 - 48.1 fL NRBC abs 0.00 0.00 - 0.01 K/cumm Comprehensive metabolic panel Collection Time: 02/18/24 6:14 PM Result Value Ref Range Sodium 136 135 - 145 mmol/L Potassium, pl 3.9 3.3 - 4.9 mmol/L Chloride 97 97 - 110 mmol/L CO2 30 22 - 32 mmol/L Anion gap 9 2 - 15 mmol/L BUN 6 6 - 25 mg/dL Creatinine 0.52 (L) 0.60 - 1.10 mg/dL Glucose 132 70 - 199 mg/dL Calcium 9.3 8.5 - 10.3 mg/dL Bilirubin, total <0.2 0.1 - 1.2 mg/dL Protein, pl 6.3 (L) 6.5 - 8.5 g/dL Albumin 3.0 (L) 3.5 - 5.0 g/dL Alk phos 101 40 - 130 Units/L ALT 24 7 - 45 Units/L AST 23 10 - 45 Units/L Troponin T high-sensitivity series (baseline, 2hr, 4hr, 6hr) Collection Time: 02/18/24 6:14 PM Result Value Ref Range Trop T hs 22 (H) <=14 ng/L Pro B-type natriuretic peptide Collection Time: 02/18/24 6:14 PM Result Value Ref Range NT-proBNP 2,204 (H) <=300 pg/mL Differential, auto Collection Time: 02/18/24 6:14 PM Result Value Ref Range Neutrophil abs 7.1 (H) 1.5 - 6.5 K/cumm Imm gran abs 0.0 0.0 - 0.1 K/cumm Lymphocyte abs 1.3 0.8 - 3.3 K/cumm Monocyte abs 0.3 0.2 - 0.8 K/cumm Eosinophil abs 0.1 0.0 - 0.5 K/cumm Basophil abs 0.1 0.0 - 0.1 K/cumm Neutrophil pct 80.8 % Imm gran pct 0.3 % Lymphocyte pct 14.7 % Monocyte pct 2.8 % Eosinophil pct 0.8 % Basophil pct 0.6 % eGFR Collection Time: 02/18/24 6:14 PM Result Value Ref Range eGFR 99 mL/min/1.73 m2 Influenza A/B, RSV, and COVID-19 PCR Nasopharyngeal Collection Time: 02/18/24 10:23 PM Specimen: Nasopharyngeal Result Value Ref Range COVID-19 RNA Negative Negative Influenza A RNA Negative Negative Influenza B RNA Negative Negative RSV RNA Negative Negative Troponin T high-sensitivity 4-hour Collection Time: 02/18/24 10:35 PM Result Value Ref Range Trop T hs See Comment <=14 Trop T hs interp See Comment Troponin T high-sensitivity 6-hour Collection Time: 02/19/24 12:19 AM Result Value Ref Range Trop T hs 21 (H) <=14 ng/L Trop T hs delta -1 ng/L Trop T hs interp Insignificant CRP (acute phase) Collection Time: 02/19/24 12:19 AM Result Value Ref Range CRP 280.2 (H) <=10.0 mg/L Urinalysis reflex to microscopic and culture Urine Collection Time: 02/19/24 8:07 AM Specimen: Urine Result Value Ref Range Color, ur Yellow Yellow Clarity, ur Turbid (A) Clear Specific gravity, ur 1.016 1.003 - 1.030 pH, urine 6.0 Protein, ur ql 1+ (A) Negative Glucose, ur ql Negative Negative Ketones, ur Negative Negative Bilirubin, ur Negative Negative Blood, ur Trace (A) Negative Urobilinogen, ur <2.0 <2.0 mg/dL Nitrite, ur Negative Negative Leukocyte esterase, ur 4+ (A) Negative UA reflex comment Reflex to microscopic UA will be performed. Urinalysis, microscopic only Collection Time: 02/19/24 8:07 AM Result Value Ref Range WBC, ur >50 (A) 0 - 5 /HPF RBC, ur 6-10 (A) 0 - 2 /HPF Epithelial cells, squamous, ur 21-50 (A) 0 - 5 /HPF Bacteria, ur 1+ (A) Mucous, ur Present (A) Culture Reflex Comment Reflex to urine culture will be performed. ECG 12 lead Result Date: 02/19/2024 Narrative: Vent Rate: 79 bpm RR Interval: 759 msec LA Interval: 139 msec QRS Duration: 90 msec QT Interval: 352 msec QTC Interval: 386 msec P-R-T [place]: 36 - 9 - 7 degrees IMPRESSION: SINUS RHYTHM MINIMAL ST DEPRESSION [0.025+ mV ST DEPRESSION] BORDERLINE ECG NO CHANGE FROM PREVIOUS TRACING NOTED Electronically Signed By: Cruz Espinoza MD XR CHEST 1 VIEW PORTABLE Result Date: 02/18/2024 Narrative: EXAM DESCRIPTION: XR CHEST 1 VIEW REASON FOR STUDY: Dyspnea. Hypoxemia. Pt has right legswelling. Pt states she feels like crap. Patient has full O2 tank, no wheelchair available w/ caddyfor tank history of COPD on oxygen and chronic tremors presents with her with complaints ofprogressive weakness and shortness of breath. TECHNIQUE: Single radiographic view(s) of the chest. COMPARISON: 05/30/2023, 03/29/2023 FINDINGS: LUNGS: Abnormal density is seen at the medial right base. This may represent posterior atelectasis. Underlying chronic lung changes are noted. The left lung appears better preserved. HEART/MEDIASTINUM: Cardiac silhouette normal in size. Mediastinal and hilar contours appear normal. LINES/TUBES: None. BONES: No acute osseous abnormality. IMPRESSION: Multiple atelectasis at the left base. Similar findings are noted on prior CT scans from 2022.. This could represent recurrent pneumonia. Follow-up to ensure clearing is needed. THIS IS AN ELECTRONICALLY V ERIFIED FINAL REPORT 02/18/2024 9:08 PM - Electronically signed by Tom Mora M.D. KH: RAVIN Report ID: [id number] Reading Location: [id number] Current Facility-Administered Medications Medication Dose Route Frequency Provider Last Rate Last Admin acetaminophen (TYLENOL) tablet 650 mg 650 mg oral Once Mio Minor PA acetaminophen (TYLENOL) tablet 650 mg 650 mg oral Q4H PRN Peggy Hernandez MD azithromycin (ZITHROMAX) tablet 500 mg 500 mg oral Daily Mio Minor PA 500 mg at 02/18/24 2256 calcium carbonate (TUMS) chewable tablet 500 mg 200 mg of elemental calcium oral Daily Peggy Hernandez MD 500 mg at 02/19/24 1235 cefTRIAXone (ROCEPHIN) 1,000 mg/10 mL in sterile water (premix) 1,000 mg 1,000 mg intravenous Q12H [facility] Mio Minor PA 1,000 mg at 02/19/24 0920 citalopram (CeleXA) tablet 20 mg 20 mg oral Daily Peggy Hernandez MD 20 mg at 128 clonazePAM (KlonoPIN) tablet 1 mg 1 mg oral Daily Peggy Hernandez MD enoxaparin (LOVENOX) syringe 40 mg 40 mg subcutaneous Daily-2099 Peggy Hernandez MD furosemide (LASIX) tablet 10 mg 10 mg oral Daily Peggy Hernandez MD ipratropium-albuteroL (DUO-NEB) 0.5-2.5 mg/3 mL nebulizer solution 3 mL 3 mL nebulization Q6H PRN (RT) Mio Minor PA Lactated Ringer's (LR) infusion 125 mL/hr intravenous Continuous Josef Ramirez Jr., MD 125 mL/hr at 02/19/24 0917 125 mL/hr at 02/19/24 0917 methylPREDNISolone sodium succinate (SOLU-medrol) preservative free injection 60 mg 60 mg intravenous Q12H [facility] Mio Minor PA 60 mg at 02/19/24 0916 ondansetron ODT (ZOFRAN-ODT) disintegrating tablet 4 mg 4 mg oral Q6H PRN Peggy Hernandez MD Or ondansetron (ZOFRAN) injection 4 mg 4 mg intravenous Q6H PRN Peggy Hernandez MD pantoprazole DR (PROTONIX) extended release tablet 40 mg 40 mg oral Daily Peggy Hernandez MD polyethylene glycol (MIRALAX) packet 17 g 17 g oral Daily PRN Peggy Hernandez MD pramipexole (MIRAPEX) tablet 1.5 mg 1.5 mg oral BID Peggy Hernandez MD 1.5 mg at 02/19/24 1127 primidone (MYSOLINE) tablet 250 mg 250 mg oral Daily Peggy Hernandez MD 250 mg at 02/19/24 1125 propranoloL (INDERAL) tablet 80 mg 80 mg oral QAM Peggy Hernandez MD And propranoloL (INDERAL) tablet 40 mg 40 mg oral Nightly Peggy Hernandez MD rosuvastatin (CRESTOR) tablet 10 mg 10 mg oral Nightly Peggy Hernandez MD ASSESSMENT AND PLAN: Principal Problem: Chronic pain of right knee Active Problems: Moseley's cyst of knee, right Centrilobular emphysema (HCC) Essential tremor Hyperlipidemia GERD without esophagitis Anxiety Depression Resolved Problems: No resolved hospital problems. Chronic pain of right knee Moseley's cyst of knee, right -Patient presented to ED complaining of significant pain and swelling to right knee for past few weeks, stating it has worsened ever since her left hip replacement in 08/2023. Denies any recent fallsor trauma. -Bedside US done by Dr. Chavez denoted small fluid sac behind knee, consistent with Moseley's cyst. Patient states that she has had a steroid injection before which helped with her pain. She is fearful of going back home and not being able to ambulate well and is interested in rehab temporarily. -Will provide Tylenol for pain relief -PT/OT consulted, recs appreciated Centrilobular emphysema Oxygen use, 3L -History of centrilobular emphysema with last admission from 03/29-04/01 of 2022 for COPD exacerbation. Patient had increased sputum production at that time in addition to cough, fever and vitals supporting diagnosis. Placed on Prednisone and Levaquin for 5 days with good response. -Patient also noted to have lymphadenopathy on chest CT that has been followed by pulmonology as well -Patient is not endorsing any fever, chills, CP, SOB, cough or increase in sputum production today.Vitals stable with no tachycardia or fever. -Patient is on 3L at baseline, will continue during hospital stay and monitor oxygenation status for worsening of symptoms Essential tremor -Noted tremor, on home Pramipexole 1.5mg BID, will continue during hospital stay Hyperlipidemia -Previous diagnosis of HLD. No record of most recent lipid panel. Patient currently on Crestor 10mg, will continue during hospital stay GERD without esophagitis -Previous history of GERD without esophagitis -No report of cough, regurgitation, chest pain or dysphagia. -On home Nexium 20mg daily, will continue with Protonix 40mg daily Anxiety Depression -Patient is pleasant and not endorsing any signs of SI or HI. -On home Celexa 20mg daily, will continue No new Assessment & Plan notes have been filed under this hospital service since the last note was generated. Service: Hospitalists These fluid and electrolyte abnormalities are being treated, evaluated or monitored: No fluid or electrolyte disorders GI PPx: Protonix 40mg DVT PPx: Lovenox 40mg PCP: Dr. Perry Consults: None at this time Code Status: Full code Anticipated LOS: Likely 1-2 days Dispo: Likely discharge to [facility] Peggy Hernandez MD Critical access hospital Medicine Residency- PGY1 [facility] Date of Service: 02/19/2024 3:09 PM Cosigned by Josef Ramirez Jr., MD at 02/19/2024 4:00 PM CDT Associated attestation - Josef Ramirez Jr., MD - 02/19/2024 4:00 PM CDT I personally saw and examined the patient and discussed the case with the resident. I have reviewedthe resident's note and agree with the content and plan as written. CXR shows mild changes in the left lower lobe c/w atelectasis or pulmonary infiltrates, however this is minimally changed (mildly improved) compared to her most recent prior CXR per my interpretation. There was concern for pneumonia reported while in the ED, however the patient reports that her mildcough and sputum production are at baseline, she denies shortness of breath, she has been afebrile,and her WBC count is normal. Pneumonia is unlikely in this case so will stop antibiotic therapy. MDM: moderate complexity Josef Ramirez Jr., MD documented in this encounter Nursing Notes * Moris Cruz RN - 02/23/2024 2:23 PM CDT Patient transported off of the unit by EMS at this time with belongings. * Moris Cruz RN - 02/23/2024 11:48 AM CDT Report called to [place] [facility]era to Ahsan documented in this encounter ED Notes * Mio Minor PA - 02/18/2024 10:41 PM CDT HPI Chief Complaint Patient presents with Leg Swelling 74-year-old female with past history of COPD on 3 L oxygen, essential tremors, GERD, hyperlipidemia, anxiety, and depression presents with her with complaints of progressive weakness, shortness of breath, and productive cough. Symptoms have been ramping up for the past couple of weeks. Patient states she is barely able to get around to do her daily activities due to the shortness of breath and weakness. States she feels very unsteady. Denies chest pain. Complains of feeling feverish with chills. 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 Past Medical History: Diagnosis Date Cancer (CMS/HCC) (HCC) Skin BCC COPD (chronic obstructive pulmonary disease) (HCC) Deviated nasal septum Occasional tremors Hands and Head, going to see Neurologist Peptic ulceration Tachycardia Past Surgical History: Procedure Laterality Date BUNIONECTOMY Right ELBOW SURGERY Right Tendonitis OTHER SURGICAL HISTORY basal cell carcinoma THUMB SURGERY Arthroplasty Family History Problem Relation Age of Onset Cancer Mother Hypertension Father Parkinsonism Father Heart disease Paternal Grandfather Scleroderma Daughter Social History Tobacco Use Smoking status: Former Current packs/day: 0.00 Average packs/day: 1 pack/day for 50.0 years (50.0 ttl pk-yrs) Types: Cigarettes Start date: 05/18/1972 Quit date: 05/18/2022 Years since quittin.7 Smokeless tobacco: Never Substance and Sexual Activity Alcohol use: No Drug use: Not Currently Types: Tobacco Sexual activity: Defer Social History Social History Narrative Not on file Review of Systems Review of Systems All other systems reviewed negative. All available allergies, past medical history, past surgical history, social history, and medications reviewed from the medical record, nursing notes, and with patient Physical Exam ED Triage Vitals Temp Pulse Resp BP SpO2 02/18/24174202/18/24174402/18/24174402/18/24174602/18/241744 37.8 ??C (100 ??F) 81 20 118/65 (!) 88 % Temp src Heart Rate Source Patient Position BP Location FiO2 (%) 02/18/241742 -- -- -- -- Temporal Height Height Method Weight Weight Method 02/18/24174402/18/24 17402/18/24174402/18/241744 1.651 m (5' 5 ) Stated 77.1 kg (170 lb) Stated Physical Exam Vitals and nursing note reviewed. Constitutional: Appearance: She is not toxic-appearing or diaphoretic. HENT: Head: Normocephalic. Right Ear: Tympanic membrane, ear canal and external ear normal. Left Ear: Tympanic membrane, ear canal and external ear normal. Nose: Nose normal. Mouth/Throat: Mouth: Mucous membranes are moist. Pharynx: Oropharynx is clear. Eyes: General: No scleral icterus. Right eye: No discharge. Left eye: No discharge. Conjunctiva/sclera: Conjunctivae normal. Neck: Comments: Trachea midline. Negative JVD Cardiovascular: Rate and Rhythm: Normal rate and regular rhythm. Pulses: Normal pulses. Heart sounds: Normal heart sounds. Pulmonary: Effort: Pulmonary effort is normal. Comments: Frequent cough noted. Expiratory wheezes. Coarse bronchial crackles, greatest on left. SaO2 dropped rapidly to 88% on room air. Musculoskeletal: General: Normal range of motion. Skin: General: Skin is warm and dry. Neurological: General: No focal deficit present. Mental Status: She is alert and oriented to person, place, and time. Cranial Nerves: No cranial nerve deficit. Motor: Weakness present. Gait: Gait abnormal. Comments: Patient has difficulty making transfers and ambulating due to weakness. Psychiatric: Mood and Affect: Mood normal. Behavior: Behavior normal. Thought Content: Thought content normal. Judgment: Judgment normal. Voice recognition software [employer] Direct was used to dictate and transcribe this document. Product Managent Intern variances may occur. Despite proofreading, typographical errors may occur. [facility] Medical Decision Making 74-year-old female with comorbidities of COPD requiring oxygen presenting with progressive dyspnea with exertion, weakness, difficulty ambulating, and productive cough. Based on history, physical exam findings, and labs/tests results consistent with COPD exacerbation with possible left lower lobe re current pneumonia. Disposition: Admit to hospitalist Amount and/or Complexity of Data Reviewed Labs: Decision-making details documented in ED Course. Radiology: ordered. Decision-making details documented in ED Course. ECG/medicine tests: independent interpretation performed. Decision-making details documented in ED Course. Risk OTC drugs. Prescription drug management. ED Course as of 02/18/24 2350 Time: 02/17 2222 Comment: Chest x-ray: IMPRESSION: Multiple atelectasis at the left base. Similar findings are noted on prior CT scans from 2022.. This could represent recurrent pneumonia. Follow-up to ensure clearing is needed By: Mio Minor PA Time: 02/17 2223 Value: WBC: 8.8 Comment: Negative for leukocytosis By: Mio Minor PA Time: 02/17 2223 Value: Neutrophil abs(!): 7.1 Comment: Mild shift in differential neutrophils By: Mio Minor PA Time: 02/17 2223 Value: Hgb(!): 10.2 Comment: (Reviewed) By: Mio Minor PA Time: 02/17 2223 Value: Hct(!): 32.1 Comment: Hemoglobin and hematocrit trending slightly lower compared to prior By: Mio Minor PA Time: 02/17 2223 Value: Trop T hs(!): 22 Comment: Initial troponin obtained at 6:14 p.m.. By: Mio Minor PA Time: 02/18 2224 Value: NT-proBNP(!): 2,204 Comment: BNP similar to prior trends. 03/30/2023 transthoracic echo Ejection fraction is measured at 76 % By: Mio Minor PA Time: 02/17 2226 Value: eGFR: 99 Comment: Renal function intact By: Mio Minor PA Time: 02/17 2226 Value: BUN: 6 Comment: (Reviewed) By: Mio Minor PA Time: 02/17 2226 Value: Creatinine(!): 0.52 Comment: (Reviewed) By: Mio Minor PA Time: 02/17 2226 Value: Alk phos: 101 Comment: (Reviewed) By: Mio Minor PA Time: 02/17 2226 Value: ALT: 24 Comment: (Reviewed) By: Mio Minor PA Time: 02/17 2226 Value: AST: 23 Comment: Negative for LFT abnormality By: Mio Minor PA Time: 02/17 2229 Comment: EKG: Sinus rhythm Similar to prior study 03/29/2023 By: Mio Minor PA Time: 02/17 2229 Comment: Reviewed all available labs/test results with patient and her . Recommended admission to hospital due to left lower lobe pneumonia, dyspnea on exertion, general weakness, and difficulty ambulating. Patient and her agreed. Labs/tests results still pending are the 2 hour troponin in the viral PCR test. Still need urinalysis collected. By: Mio Minor PA Time: 02/18 2308 Value: COVID-19 RNA: Negative Comment: (Reviewed) By: Mio Minor PA Time: 02/18 2308 Value: Influenza A RNA: Negative Comment: (Reviewed) By: Mio Minor PA Time: 02/18 2308 Value: Influenza B RNA: Negative Comment: (Reviewed) By: Mio Minor PA Time: 02/18 2308 Value: RSV RNA: Negative Comment: Negative viral PCR test By: Mio Minor PA Time: 02/18 2344 Comment: Spoke with the hospitalist, Dr. Vasquez. Agreed to accept admission to observation By: Mio Minor PA Final diagnoses: Pneumonia of left lower lobe due to infectious organism Dyspnea, unspecified type General weakness Impaired ambulation Mio Minor PA 02/18/24 9490 Cosigned by Rekha Aquino MD at 02/19/2024 1:54 AM CDT * Erin Lang RN - 02/18/2024 5:43 PM CDT Pt has right leg swelling. Pt states she feels like crap. documented in this encounter Miscellaneous Notes * Provider Query - Peggy Hernandez MD - 02/23/2024 2:28 PM CDT Specify a diagnosis that reflects the patient???s level of strength and mobility on admission, and document in the medical record and on the form below. Select all that apply: ___Age related physical debility (frailty) ___Limitation of activity due to disability _x__Reduced Mobility ___Chronic fatigue ___Other, specify below Additional Provider Response: Patient noted to have reduced mobility secondary to right knee pain and swelling. Patient had limited mobility and SNF was required upon discharge. Clinical Indicators/Treatments: 02/19/24 Physical therapy evaluation note: Prior level of independence: Needs assistance with ADLs;Needs assistance with ambulation;Needs assistance with functional transfers. Lives with spouse. Receives help from spouse. PT recommendation: Senior Living Facility due to Risk of injury at home;Unable to safely care forself in the home;Skilled therapy needed to address care for self in the home;Skilled therapy neededto address functional deficits;Skilled therapy needed for patient to return to prior level of independence. Treatment: -Per physical therapy recommendation as stated above. References: General Debility and Chronic Fatigue Documentation Practices To accurately represent patient acuity under CMS risk-adjustment methodology, please consider and document the following diagnoses, when applicable. Age-related physical debility Postviral fatigue syndrome Consider in patients with excessive and persistent fatigue following a viral illness, such as COVID-19 Myalgic encephalopmyelitis/chronic fatigue syndrome Other post-infection and related fatigue syndromes Neoplastic related fatigue The only diagnostic criteria is if the patient reports fatigue. May also report weariness, malaise,apathy, lassitude, or burnout. Characterized by excessive and persistent exhaustion that is disproportionate to the task done, often interfering with daily activity. Exhibited in 70-100% of patients with cancer. Often begins prior to diagnosis, worsens during treatment, and may persist for months or years after treatment ends Functional Quadriplegia Chronic fatigue Limitation of activities due to disability Bed confinement status Other reduced mobility Applicable to those with impaired mobility, requiring dependence on care providers. May require extensive PT/OT, milady lifts, mobility devices/aids, etc. Debility References Functional Quadriplegia. ICD-9-CM Coding Clinic, 2007 Page: 143 Effective with discharges: August [facility]: Cancer Fatigue From the ICD-10-CM Coding Guidelines, use of terms such as likely, suspected, possible, or probable(associated with a specific diagnosis that is being evaluated, monitored, or treated as if it exists) are acceptable and can be coded in the inpatient setting when documented at the time of discharge. This documentation will become part of the patient???s medical record. Sincerely, Bette Alfonso RN, CDS Clinical Documentation Improvement [phone] (cell) [email or web address] * Plan of Care - Moris Cruz RN - 02/23/2024 11:57 AM CDT Problem: Discharge Planning Goal: Understanding discharge needs will improve Outcome: Adequate for Discharge Problem: Fall Risk Goal: Ability to state ways to decrease the risk of falls will improve Outcome: Adequate for Discharge Goal: Will remain free from falls Outcome: Adequate for Discharge Goal: Will remain free from injury from falls Outcome: Adequate for Discharge Problem: Lack of Knowledge Goal: Ability to develop a pain control plan will improve Outcome: Adequate for Discharge Problem: Medication Goal: Satisfaction with pain management medication regimen will improve Outcome: Adequate for Discharge Problem: Sensory Goal: Ability to identify factors that increase pain levels will improve while working to decrease the patient's pain levels Outcome: Adequate for Discharge Goals: Clinical Goals for the Shift: discharge Summary: VSS. Free from fall/injury. [facility]. Belongings collected and ready for transport. Pt spouse was notified of patient status and care plan and expressed his understanding. Medication list faxed to [facility]. Pt was given a bed bath. IV removed. Oxygen saturation maintained stable on home dose of oxygen per [place]. Pt was a 2 assist with a gait belt to the bed side commode. Laxatives administered. Pt is passing gas, denied abdominal pain/discomfort and has active bowel sounds. Discharge facility notified of the patient's constipation and interventions that have been done. Pt denied pain in right leg. No new or worsening signs of infection or bruising. Pa tient/spouse and discharge facility staff express understanding of discharge plan and denied any further questions at this time. Pt is to be transported to discharge facility via ambulance. * Plan of Care - Aydee Iyer RN - 02/23/2024 5:53 AM CDT Goals: Clinical Goals for the Shift: Patient will be able to have a BM this shift. Summary: Patient slept well, c/o constipation, no pain, plan to discharge possibly today for rehab * Plan of Care - Debo Lee LCSW - 02/22/2024 3:42 PM CDT 02/22/24 1541 Discharge Summary Discharge Disposition group home facility (short term care) Specify Facility [facility] Facility Contact Number Akiko/FUENTES: Roz [phone]; Facility #: [phone]; Report #: [phone]; Fax #: [phone] or [phone] Discharge Additional Assistance Does the patient need discharge transport arranged? No SW confirmed with Norah that pt can admit Sunday02/23/24 to [facility], pending her rapidCOVID results. * Plan of Care - Debo Lee LCSW - 02/22/2024 3:39 PM CDT Received message that pt's insurance has approved rehab/SNF. Called and left message for Norah at [facility] asking when we can plan admission. * Plan of Care - Ivania Tee RN - 02/22/2024 3:22 PM CDT Goals: Problem: Discharge Planning Goal: Understanding discharge needs will improve Outcome: Ongoing Problem: Fall Risk Goal: Ability to state ways to decrease the risk of falls will improve Outcome: Ongoing Goal: Will remain free from falls Outcome: Ongoing Goal: Will remain free from injury from falls Outcome: Ongoing Problem: Lack of Knowledge Goal: Ability to develop a pain control plan will improve Outcome: Ongoing Problem: Medication Goal: Satisfaction with pain management medication regimen will improve Outcome: Ongoing Problem: Sensory Goal: Ability to identify factors that increase pain levels will improve while working to decrease the patient's pain levels Outcome: Ongoing Clinical Goals for the Shift: Patient will be able to have a BM this shift. Summary: Patient has not had a BM thus far. No complaints of pain. Patient was able to work with physical therapy. Up in chair. VSS. Call light within reach. No needs at this time. * Hospital Course - Peggy Hernandez MD - 02/22/2024 2:56 PM CDT Chronic pain of right knee Moseley's cyst of knee, right -Patient presented to ED complaining of significant pain and swelling to right knee for past few weeks, stating it has worsened ever since her left hip replacement in 08/2023. Denies any recent fallsor trauma. -Bedside US done by Dr. Chavez denoted small fluid sac behind knee, consistent with Moseley's cyst. Patient states that she has had a steroid injection before which helped with her pain. She is fearful of going back home and not being able to ambulate well and is interested in rehab temporarily. -Tylenol provided symptomatic relief, continued throughout hospital stay -Moseley's cyst aspiration done on 02/20 showed no crystals seen. Preliminary aerobic and anaerobic cultures and Gram stains from aspirate of right knee showed no PMNs or organisms. Patient likely alsohas arthritis of that knee that caused discomfort Centrilobular emphysema Oxygen use, 3L at baseline -History of centrilobular emphysema with last admission from 03/29-04/01 for COPD exacerbation. Patient had increased sputum production at that time in addition to cough, fever and vitals supporting diagnosis. Placed on Prednisone and Levaquin for 5 days with good response. Patient also notedto have lymphadenopathy on chest CT that has been followed by pulmonology as well -On admission, CXR showed mild changes in left lower lobe, concerning for atelectasis and possibly PNA. However, PE, vitals, and labs ruled this out. No need for antibiotic treatment at this time. -Patient on 3 L at baseline, received hours p.r.n. patient to Symbicort and Atrovent -Will discharge patient with albuterol inhaler Essential tremor -Patient has history of essential tremor, tremor did not worsen during hospital admission but remains stable -On home Pramipexole 1.5mg BID, will continue upon discharge Hyperlipidemia -Previous diagnosis of HLD. No record of most recent lipid panel. -Patient currently on Crestor 10mg, will continue upon discharge -Recommend lipid panel from PCP upon discharge GERD without esophagitis -No report of increased cough, regurgitation, chest pain or dysphagia. -On home Nexium 20mg daily, will continue upon discharge Anxiety Depression -No SI or HI reported. Patient remained pleasant and in no acute distress. -On home Celexa 20mg daily, will continue upon discharge * Plan of Care - Debo Lee LCSW - 02/22/2024 1:53 PM CDT Pt's insurance auth is still pending with [facility] [employer]. * Plan of Care - Celena Meza RN - 02/22/2024 5:08 AM CDT Problem: Fall Risk Goal: Will remain free from falls Outcome: Ongoing Problem: Fall Risk Goal: Will remain free from injury from falls Outcome: Ongoing Problem: Sensory Goal: Ability to identify factors that increase pain levels will improve while working to decrease the patient's pain levels Outcome: Ongoing Goals: Clinical Goals for the Shift: Pt will remain hemodynamically stable and free from falls. Summary: Pt remains hemodynamically stable and free from falls. Pt safety maintained. Pt complainedof no pain during the night and seemed to get some sleep. * Plan of Care - Angelita Arreola RN - 02/21/2024 3:54 PM CDT Problem: Discharge Planning Goal: Understanding discharge needs will improve Outcome: Progressing Flowsheets (Taken 02/20/2024 1621) Understanding of discharge needs will improve: Identify discharge barriers Problem: Fall Risk Goal: Ability to state ways to decrease the risk of falls will improve Outcome: Progressing Flowsheets (Taken 02/20/2024 1621) Ability to state ways to decrease the risk of falls will improve: Teach fall prevention measures Goal: Will remain free from falls Outcome: Progressing Flowsheets (Taken 02/19/20242007 by Leanne Brady, BORIS) Will remain free from falls: Assess risk factors for falls Implement fall prevention measures Goal: Will remain free from injury from falls Outcome: Progressing Flowsheets (Taken 02/20/2024 1621) Will remain free from injury from falls: Provide safe environment for conduction of activities of daily living in hospital environment Problem: Lack of Knowledge Goal: Ability to develop a pain control plan will improve Outcome: Progressing Flowsheets (Taken 02/19/20242007 by Leanne Brady, BORIS) Ability to develop a pain control plan will improve: Explain causes of pain and how long pain can be expected to last Teach information regarding pain management Educate pain scale for assessing level of pain Problem: Medication Goal: Satisfaction with pain management medication regimen will improve Outcome: Progressing Flowsheets (Taken 02/20/2024 1630) Satisfaction with pain management medication regimen will improve: Assess satisfaction with pain management regimen Evaluate medication effects Problem: Sensory Goal: Ability to identify factors that increase pain levels will improve while working to decrease the patient's pain levels Outcome: Progressing Flowsheets (Taken 02/20/2024 1630) Ability to identify factors that increase pain levels will improve while working to decrease patients pain levels: Assess pain status Observe non-verbal cues of discomfort, such as restlessness, muscle tension, or altered vital signs Explore factors that precipitate, worsens, or relieves pain or discomfort Assess effects of pain control measures Goals: Clinical Goals for the Shift: VSS, pain control, remain free of falls and injury Summary: VSS, pain controlled, pt has remained free of falls and injury. Able to make needs known. * Post-Procedure Note - Ahsan Dinh MD - 02/21/2024 9:51 AM CDT Radiology Brief Post Procedure Note Attending: Dr. Ahsan Dinh Sedation/Anesthesia: Local Pre-procedure Diagnosis: bakers cyst, knee pain Post-procedure Diagnosis: Same Procedure Performed: moseley's cyst aspiration Procedure Findings: Successful Complications: None Estimated Blood Loss: None Specimens: 5 mL fluid Condition: Stable Full report to follow. * Plan of Care - Debo Lee LCSW - 02/21/2024 7:24 AM CDT Sent updated PT/OT notes via [facility] to [facility] and asked them to submit for insurance auth since pt's insurance sometimes takes awhile to approve. * [facility] Note - Debo Lee LCSW - 02/21/2024 7:23 AM CDT Images from the original note were not included. Patient Information: OT Eval and Treat Last 72 Hours OT Evaluation Row Name 02/20/24 0854 Chart Reviewed Yes -AV Session Type Evaluation -AV OT Received On 02/20/24 -AV Subjective Agreeable to Therapy -AV Family/Caregiver Present No -AV Type of Home House -AV Bathroom Shower/Tub Walk-in shower with threshold -AV Bathroom Equipment Shower chair -AV Home Mobility Equipment-Available Crutches;Wheeled walker;Single point cane -AV Home Mobility Equipment-Currently Using Wheeled walker -AV Level of [place] Independent with ADLs;Independent functional transfers;Independent with ambulation;Independent with homemaking with ambulation patient has required assist recently -AV Lives With Spouse -AV Receives Help From Spouse/Significant other -AV Driving Yes -AV ADL Assistance Independent -AV Instrumental ADL (IADL) Assistance Independent patient has had family assist with IADLs recently -AV Grooming: Where assessed Standing at sink -AV Grooming: Equipment utilized -- w/w -AV Grooming: Level of assistance Minimum Assist -AV Grooming: Assistance with Wash/dry hands;Teeth care -AV LE Dressing: Where assessed Edge of bed -AV LE Dressing: Level of assistance Dependent -AV LE Dressing: Assistance with Don/doff L sock;Don/doff R sock -AV Toileting: Where assessed Toilet -AV Toileting: Equipment utilized -- w/w -AV Toileting: Level of assistance Moderate Assist -AV Toileting: Assistance with Clothing management up;Clothing management down -AV Room Mobility: Where assessed bed to bathroom to bedside chair -AV Health Management: Equipment -- w/w -AV Room Mobility: Level of Assistance Minimum Assist -AV Room Mobility comment patient requires increased time to complete any functional mobility -AV Toilet Transfer From Bed -AV Toilet Transfer Type To -AV Toilet Transfer to Standard toilet -AV Toilet Transfer Technique Ambulating -AV Toilet Transfer: Equipment Wheeled walker -AV Toilet Transfers Minimal assistance -AV Pain Score 8 -AV Pain Location Head -AV Overall Cognitive Status WFL -AV Arousal/Alertness Alert -AV Orientation Oriented X4 (person, place, time, situation) -AV Following Commands Follows all commands and directions without difficulty -AV Compliance/Behavior Easy to engage -AV Static Sitting-Balance Support Bilateral upper extremity supported -AV Static Sitting-Sitting Surface Bed -AV Static Sitting-Level of Assistance Close supervision -AV Static Standing-Balance Support Bilateral upper extremity supported -AV Static Standing-Standing Surface Floor -AV Static Standing-Level of Assistance Minimum assistance;Contact guard -AV Bed Mobility From 1 Supine -AV Bed Mobility Type 1 To -AV Bed Mobility to 1 Edge of bed -AV Level of Assistance 1 Minimum Assist -AV Comments Patient is very slow during functional mobility requiring a lot of increased time and cueing to complete -AV Prognosis Good -AV Problem List Decreased safe judgment during ADL;Decreased endurance;Decreased functional mobility;Decreased ADL independence -AV Barriers to Discharge None -AV Plan Plan of care initiated;If this is the last note, consider this the discharge summary -AV OT Recommendation Senior Living Facility -AV Patient at high risk for Falls;Injury due to decreased ability to care for self;Injury due to reduced functional status;Injury at home as patient has not returned to prior level of function -AV Recommend SNF due to Risk of injury at home;Unable to safely care for self in the home;Skilled therapy needed to address care for self in the home;Skilled therapy needed to address functional deficits;Skilled therapy needed for patient to return to prior level of independence -AV OT Frequency during current admission 3-5x/wk -AV Treatment/Interventions during current admission ADL/IADL retraining;Functional mobility training -AV OT Evaluation Complete Yes -AV User Navarro (r) = Recorded By, (t) = Taken By, (c) = Cosigned By Initials Name Effective Dates AV Lorrie tSeel OT 03/30/22 - OT Treatment No documentation. OT Notes 02/20/2024 1:30 PM Progress Notes signed by Lorrie Steel, OT , PT Eval and Treat Last 72 Hours PT Evaluation Row Name 02/19/24 1549 Chart Reviewed Yes -JL Session Type Evaluation -JL Safe Environment Arm band checked;Patient found in supine;Session completed bedside;Gait belt utilized for all out of bed mobility -JL Subjective Agreeable to Therapy -JL Family/Caregiver Present Yes -JL Physical Therapy-Patient Goal to go to [facility] to get stronger -JL Precautions Fall risk -JL Type of Home House -JL Home Layout One level;Basement -JL Home Access Stairs to enter with rails -JL Entrance Stairs-Rails Right -JL Entrance Stairs-Number of Steps 2 -JL Home Mobility Equipment-Available Wheeled walker;Single point cane -JL Home Mobility Equipment-Currently Using Wheeled walker -JL Level of [place] Needs assistance with ADLs;Needs assistance with ambulation;Needs assistance with functional transfers was indep has needed assist the past few days -JL Lives With Spouse -JL Receives Help From Spouse/Significant other -JL Driving Yes -JL Fall within the last 6 months No -JL Prior Function Comments Aug fell out of bed and broke left hip -JL Pain Assessment 0-10 -JL Pain Score 10 - Worst possible pain -JL Pain Type Acute pain -JL Pain Location Knee -JL Pain Orientation Right -JL Overall Cognitive Status WFL -JL Orientation Oriented X4 (person, place, time, situation) -JL Compliance/Behavior Easy to engage -JL Balance Yes -JL Static Sitting-Balance Support Bilateral upper extremity supported;Feet supported -JL Static Sitting-Sitting Surface Bed -JL Static Sitting-Level of Assistance Close supervision -JL Static Standing-Balance Support Bilateral upper extremity supported -JL Static Standing-Standing Surface Floor -JL Static Standing-Level of Assistance Minimum assistance -JL Static Standing-Comment/# of Minutes pt fearful of falling -JL Bed Mobility From 1 Supine -JL Bed Mobility Type 1 To -JL Bed Mobility to 1 Edge of bed -JL Level of Assistance 1 Contact Guard Assist;Minimum Assist -JL Bed Mobility Comments 1 pt needs assist of the bedrail to elevate trunk -JL Transfer From 1 Bed;Sit -JL Transfer Type 1 To and from -JL Transfer to 1 Stand;Toilet -JL Technique 1 Sit to stand;Stand to sit -JL Transfer Device 1 Wheeled walker -JL Transfer Level of Assistance 1 Minimum Assist -JL Trials/Comments 1 pt fearful of falling -JL Distance (ft) 1 15' x 2 -JL Surface 1 Level tile -JL Device 1 Wheeled walker -JL Assistance 1 Minimum Assist;Moderate Assist -JL Gait: Requires assist with 1 Maintaining balance;Preventing knee buckling -JL Quality of Gait 1 LLE IR, bilat knees slightly flexed, dec; sourav, step length and sourav -JL Ambulation Comments 1 pt fearful of faling -JL RLE Assessment X arom wfl, gross strength 3/5 -JL LLE Assessment X arom wfl, gross strength 3/5 -JL How much difficulty does the patient have: Turning over in bed 3 -JL How much difficulty does the patient currently have: Sitting down and standing up from a chair witharms? 3 -JL How much difficulty does the patient have: Moving from lying on back to sitting on the side of the bed? 3 -JL How much difficulty does the patient have: Moving to and from a bed to a chair including wheelchair? 3 -JL How much help does the patient currently need: Walk in hospital room? 2 -JL How much help from another person does the patient currently need: Climbing 3-5 steps with a railing? 2 -JL Total 6 Click Score (range 6-24) 16 -JL Score Interpretation 38.32 -JL Safe Environment End of Therapy Session Patient left in recliner;RN notified;Call light within reach;Overbed table within reach -JL Prognosis Good -JL Problem List Gait deviations;Decreased strength;Decreased endurance;Impaired balance;Decreased mobility;Pain -JL Barriers to Discharge Current Mobility Status -JL Plan Plan of care initiated;If this is the last note, consider this the discharge summary -JL PT Recommendation/Plan Senior Living Facility pt would [facility] to go [facility] [place] - Patient at high risk for Falls;Readmission;Injury due to decreased ability to care for self;Injury due to reduced functional status;Injury due to balance deficits - Recommend SNF due to Risk of injury at home;Unable to safely care for self in the home;Skilled therapy needed to address care for self in the home;Skilled therapy needed to address functional deficits;Skilled therapy needed for patient to return to prior level of independence - PT Frequency during current admission Daily - Treatment/Interventions during current admission Bed mobility;Functional transfer training;Gait training;Therapeutic exercise - PT Equipment Recommended None - PT Evaluation Complete Yes - User Navarro (r) = Recorded By, (t) = Taken By, (c) = Cosigned By Initials Name Effective Dates JL Josef Solis, PT 08/11/19 - PT TREATMENT (last 168 hours) PT Treatment Row Name 02/20/24 9033 PT Last Visit Session Type Treatment -BE Safe Environment Arm band checked;Patient found in supine;Session completed bedside;Gait belt utilized for all out of bed mobility -BE Static Sitting Balance Static Sitting-Balance Support Bilateral upper extremity supported;Feet supported -BE Static Sitting-Sitting Surface Bed -BE Static Sitting-Level of Assistance Close supervision -BE Static Sitting-Comment/# of Minutes pt leaning backwards -BE Seated Seated-Exercises Lower extremity -BE Reps/Sets 10 -BE Bed Mobility 1 Bed Mobility From 1 Edge of bed -BE Bed Mobility Type 1 To -BE Bed Mobility to 1 Supine -BE Level of Assistance 1 Minimum Assist -BE Transfer 1 Transfer From 1 Commode-standard;Sit -BE Transfer Type 1 To and from -BE Transfer to 1 Stand -BE Technique 1 Sit to stand;Stand to sit -BE Transfer Device 1 Hand held assist -BE Transfer Level of Assistance 1 Minimum Assist -BE Safe Environment End of Therapy Session Safe Environment End of Therapy Session Patient left supine in bed;Call light within reach;Overbed table within reach -BE Assessment Prognosis Good -BE Problem List Decreased strength;Decreased endurance;Impaired balance;Decreased mobility -BE Plan Plan If this is the last note, consider this the discharge summary -BE Recommendation/Plan PT Recommendation/Plan Senior Living Facility -BE Patient at high risk for Falls;Readmission;Injury due to decreased ability to care for self;Injury due to reduced functional status;Injury due to balance deficits -BE Recommend SNF due to Risk of injury at home;Unable to safely care for self in the home;Skilled therapy needed to address care for self in the home;Skilled therapy needed to address functional deficits;Skilled therapy needed for patient to return to prior level of independence -BE User Navarro (r) = Recorded By, (t) = Taken By, (c) = Cosigned By Initials Name Effective Dates BE RonSada Mallorie, [facility] 07/01/19 - PT Notes 02/19/2024 4:19 PM Progress Notes signed by Josef Solis, PT * Plan of Care - Celena Meza RN - 02/21/2024 5:28 AM CDT Problem: Fall Risk Goal: Will remain free from falls Outcome: Ongoing Problem: Fall Risk Goal: Will remain free from injury from falls Outcome: Ongoing Problem: Medication Goal: Satisfaction with pain management medication regimen will improve Outcome: Ongoing Goals: Clinical Goals for the Shift: Pt to remain hemodynamically stable and free from falls. Summary: Pt remains hemodynamically stable and free from falls. Pt reported some pain in her feet which was relieved by elevation and ice. Pt seemed to get some sleep over night but not much. * Provider Query - Peggy Hernandez MD - 02/20/2024 9:53 PM CDT Specify a diagnosis that reflects the patient???s need for continuous home oxygen, and document in the medical record and on the form below. ___ Chronic Hypoxic Respiratory Failure ___ Chronic Hypercapnic Respiratory Failure _x__ Chronic Respiratory Failure, unspecified ___ COPD WITHOUT chronic respiratory failure ___ Other, specify below Additional Provider Response: Patient has COPD and relies on 3L of supplemental oxygen at baseline, qualifying as chronic respiratory failure. Clinical Indicators/Treatments: 02/18/24 ED note: 74-year-old female with past history of COPD on 3 L oxygen, presents with her with complaints of progressive weakness, shortness of breath, and productive cough. 02/19/24 H&P: Assessment: -Centrilobular emphysema. Oxygen use, 3L. Patient is on 3L at baseline, will continue during hospital stay and monitor oxygenation status for worsening of symptoms Treatment: -Monitor vital signs -Supplemental oxygen References: Respiratory Failure Screening Criteria Chronic Respiratory Failure Dependence on continuous (24 hours a day) home O2 or non-invasive mechanical ventilation (BiPAP, AVAPS, etc.) If provider believes patient has respiratory failure in the absence of above clinical indicators, please document rationale and clinical impression in detail Respiratory Failure References [employer] Hospitalist Sep 2013 Coding Clinics: 3rd Q 1987, p 7 and 2nd Q 1989, p.20 [email or web address]-oii-oiavqdztz/[email or web address]-learning-network-[email or web address] ucts/[email or web address]-zykbzm-[email or web address]-text-only.[email or web address] From the ICD-10-CM Official Guidelines for Coding and Reporting, use of terms such as likely, suspected, possible, or probable (associated with a specific diagnosis that is being evaluated, monitored, or treated as if it exists) are acceptable and can be coded in the inpatient setting when documented at the time of discharge. This documentation will become part of the patient???s medical record. Sincerely, Bette Alfonso RN, CDS Clinical Documentation Improvement [phone] (cell) [email or web address] * Plan of Care - Angelita Arreola RN - 02/20/2024 4:31 PM CDT Problem: Discharge Planning Goal: Understanding discharge needs will improve Outcome: Progressing Flowsheets (Taken 02/20/2024 1621) Understanding of discharge needs will improve: Identify discharge barriers Problem: Fall Risk Goal: Ability to state ways to decrease the risk of falls will improve Outcome: Progressing Flowsheets (Taken 02/20/2024 1621) Ability to state ways to decrease the risk of falls will improve: Teach fall prevention measures Goal: Will remain free from falls Outcome: Progressing Flowsheets (Taken 02/19/20242007 by Leanne Brady, BORIS) Will remain free from falls: Assess risk factors for falls Implement fall prevention measures Goal: Will remain free from injury from falls Outcome: Progressing Flowsheets (Taken 02/20/2024 1621) Will remain free from injury from falls: Provide safe environment for conduction of activities of daily living in hospital environment Problem: Lack of Knowledge Goal: Ability to develop a pain control plan will improve Outcome: Progressing Flowsheets (Taken 02/19/2024 2008 by Leanne Brady RN) Ability to develop a pain control plan will improve: Explain causes of pain and how long pain can be expected to last Teach information regarding pain management Educate pain scale for assessing level of pain Problem: Medication Goal: Satisfaction with pain management medication regimen will improve Outcome: Progressing Flowsheets (Taken 02/20/2024 1630) Satisfaction with pain management medication regimen will improve: Assess satisfaction with pain management regimen Evaluate medication effects Problem: Sensory Goal: Ability to identify factors that increase pain levels will improve while working to decrease the patient's pain levels Outcome: Progressing Flowsheets (Taken 02/20/2024 1630) Ability to identify factors that increase pain levels will improve while working to decrease patients pain levels: Assess pain status Observe non-verbal cues of discomfort, such as restlessness, muscle tension, or altered vital signs Explore factors that precipitate, worsens, or relieves pain or discomfort Assess effects of pain control measures Goals: Clinical Goals for the Shift: VSS, maintain comfort and safety Summary: VSS, pain control maintained. Safety maintained. Resting in bed with call light in reach, able to make needs known. * Initial Assessments - Melinda Jett RN - 02/20/2024 2:10 PM CDT CM Initial Assessment Interview Note Information Obtained From: Patient (02/20/24 140) Admission Source: ED Impression: right leg swelling and pain Plan Includes: Assessment and DC planning Primary Source of Transportation: Does the patient need discharge transport arranged?: No (02/20/24 1406) Health Insurance Coverage: [employer] Medicare Prescription Coverage: yes Pharmacy: [address] [address] Primary Care Provider: Lyla Perry MD Prior to Admission: Functional Status: Independent with ADLs Primary Caregiver: Self Support System: Spouse/Significant Other, Children Home Care Services: No Outpatient Services: No Durable Medical Equipment: Oxygen, Cane (single prong), Walker (wheeled), Home Modification Assessment (railes in bathroom) Oxygen Detail: O2 3 LPM continuous DME Name and Contact Number: [facility] Living Arrangements: Spouse/significant other Type of Residence: Private residence Steps in home?: Yes, Outside of home, Yes, Inside home Number of steps inside: 13 steps (to basement- patient does not go down there) Medication management: Independent (02/20/241405) SDOH: Transportation: In the past 12 months, has lack of transportation kept you from medical appointments or from getting medications?: No In the past 12 months, has lack of transportation kept you from meetings, work, or from getting things needed for daily living?: No (02/20/241404) Financial Resource: How hard is it for you to pay for the very basics like food, housing, medical care, and heating?: Not hard at all (02/20/241404) Housing: In the last 12 months, was there a time when you were not able to pay the mortgage or rent on time?: No In the last 12 months, how many places have you lived?: 1 In the last 12 months, was there a time when you did not have a steady place to sleep or slept in ashelter (including now)?: No (02/20/241404) Utilities: No, (02/20/241404) Social Connections: In a typical week, how many times do you talk on the phone with family, friends, or neighbors?: More than three times a week How often do you get together with friends or relatives?: More than three times a week How often do you attend presybeterian or jehovah's witness services?: Never Do you belong to any clubs or organizations such as presybeterian groups, unions, fraternal or athletic groups, or school groups?: No How often do you attend meetings of the clubs or organizations you belong to?: Never Are you , , , , never , or living with a partner?: (02/20/24 1405) Food Insecurity: Within the past 12 months, you worried that your food would run out before you got the money to buymore.: Never true Within the past 12 months, the food you bought just didn't last and you didn't have money to get more.: Never true (02/20/24 1405) Alcohol Use: PHQ Screening Potential discharge needs include: Home Health: Physical therapy, group home (02/20/24 140) Dialysis: Behavioral Health Services: Behavioral Health Services: No (02/20/241405) Patient expects to be Discharged to: Senior Living Facility (vs home with [facility] PT/SN), (02/20/24 140) Additional Information: DC plan discussed with patient in her room. She drives and was independent until just recently, her drives and is independent and will be her ride home. Patient wears oxygen continuously at 3 LPM from [facility]. She also has a cane, some crutches, and a 2 wheeled walker. She tells me that she uses the walker all of the time. Barrier to DC will be non- resolution of pain and lack of functional use of right leg. CM will follow to assist with DC planning as appropriate. Patient's Identified Problem/Goal Problem: Ensure acute medical needs are met and that patient has a safe discharge plan. Goal: Secure a discharge plan that patient/family are agreeable with and ensure patient has continuum of care. Case management will follow for discharge planning and send referrals as needed. Melinda Jett RN, BSN, CM * Plan of Care - Debo Lee LCSW - 02/20/2024 1:59 PM CDT [facility] * [facility] Note - Debo Lee LCSW - 02/20/2024 1:56 PM CDT Images from the original note were not included. Patient Information: Referral Summary Patient Information Patient Name: LINDA LAEK Date of 1950 (74 years) Sex: Female Phone Numbers: Home: Attending Provider: Josef Ramirez Jr., MD Allergies: Ibuprofen Isolation: None Infection: None Code Status: FULL Ht: 165.1 cm (5' 5 ) Wt: 82.3 kg (181 lb 7 oz) Admission Cmt: None Principal Problem: Chronic pain of right knee [M25.561,G89.29] Elopement Risk Date/Time Risk/Reason for Elopement User 02/18/24 1746 No risk CLS Intake/Output 02/18/24 0700 - 02/19/24 0659 02/19/24 07 - 02/20/24 0659 02/20/24 07 - 02/21/24 0659 Total 7047-8635 6701-2284 2601-8582 Total 0165-3937 8504-3430 4945-0148 Total Intake (ml) 10 1000 4962 061 1555 360 -- -- 360 Output (ml) -- -- -- -- -- -- -- -- -- Net (ml) 10 1000 2620 449 6236 360 -- -- 360 Last Weight 77.1 kg (170 lb) 82.3 kg (181 lb 7 oz) -- -- -- -- -- -- -- Patient Lines/Drains/Airways Status Active Airway / Central venous catheter / Drain / Epidural cathether / Intraosseous line / Peripherally inserted central catheter / Peripheral intravenous line / Arterial line Name Placement date Placement time Site Days Peripheral IV 02/18/24 22 G Left;Posterior Hand 02/18/24 2232 Hand 1 Active Wound Assessment Active Wound / Pressure injury / New / Negative Pressure Wound / Incision None Cruz Fall Risk Flowsheet Row Most Recent Value Prior Fall Event (Autopopulated from EMR) None found ............filed at 02/20/2024 08 History of Falling 0 ............filed at 02/20/2024 08 Secondary Diagnosis 0 ............filed at 02/20/2024 08 Ambulatory Aids 15 ............filed at 02/20/2024 08 Intravenous Therapy/Heparin/Saline Lock 20 ............filed at 02/20/2024 08 Gait/Transferring 10 ............filed at 02/20/2024 0800 Mental Status 0 ............filed at 02/20/2024 0800 Cruz Fall Risk Score 45 ............filed at 02/20/2024 0800 Vital Signs 02/18 0702/19 0659 02/19 0702/19 1356 Most Recent Temp (??C) 36 - 36.6 36.2 - 36.4 36.2 (97.1) 02/19 1112 Pulse 57 - 80 61 - 80 61 02/19 1112 Resp 18 18 18 02/19 1112 SpO2 (%) 91 - 98 93 - 97 97 02/19 1112 BP 81/52 - 110/64 103/64 - 122/68 103/64 02/19 1112 MAP (mmHg) 62 - 81 Default Flowsheet Data (most recent) Endurance Tests No documentation. Default Flowsheet Data (last 48 hours) Oxygen Row Name 02/20/24 1112 02/20/24 0719 02/20/24 0318 02/19/24 2313 02/19/24 1941 Oxygen Therapy/Pulse Ox O2 Therapy Supplemental oxygen Supplemental oxygen Supplemental oxygen Supplemental oxygen Supplemental oxygen O2 Del Method Nasal cannula Nasal cannula Nasal cannula Nasal cannula Nasal cannula O2 Flow Rate (L/min) 3.5 L/min 3.5 L/min 3.5 L/min 3.5 L/min 3.5 L/min SpO2 97 % 93 % 95 % 96 % 98 % Row Name 02/19/24 1520 02/19/24 1313 02/19/24 1200 02/19/24 1130 02/19/24 1100 Oxygen Therapy/Pulse Ox O2 Therapy None (Room air) None (Room air) -- -- -- SpO2 96 % 95 % 94 % 93 % 95 % Row Name 02/19/24 0830 02/19/24 0815 02/19/24 0745 02/19/24 0715 02/19/24 0700 Oxygen Therapy/Pulse Ox SpO2 96 % 98 % 91 % 97 % 97 % Row Name 02/19/24 0630 02/19/24 0530 02/19/24 0400 02/19/24 0135 02/18/24 2230 Oxygen Therapy/Pulse Ox O2 Therapy -- Supplemental oxygen Supplemental oxygen Supplemental oxygen -- O2 Del Method -- Nasal cannula Nasal cannula Nasal cannula -- O2 Flow Rate (L/min) -- 4 L/min 4 L/min 4 L/min -- SpO2 98 % 98 % 96 % 95 % 96 % Patient Activity -- -- At rest At rest -- Row Name 02/18/24 1745 Oxygen Therapy/Pulse Ox SpO2 88 % usually low Nursing Nutrition None Nursing Mobility Activity 02/19 1000 Chair 02/19 08 Resting in bed 02/18 2015 Resting in bed 02/18 1800 Resting in bed 02/18 1600 Resting in bed 02/18 1400 Resting in bed Patient Assistance 02/19 08 Moderate assist, patient does 50-74% 02/18 2015 Moderate assist, patient does 50-74% 02/18 1400 Moderate assist, patient does 50-74% Repositioned 02/19 08 Turn self 02/18 2015 Turn self 02/18 1400 Turn self Head of Bed Elevated 02/19 08 HOB 45 Heels/Feet 02/19 08 Foot of bed elevated Range of Motion Interventions 02/19 08 Active;All extremities 02/18 1600 Active;All extremities 02/18 1400 Active;All extremities All Meds/Most Recent Administrations acetaminophen (TYLENOL) tablet 650 mg [[id number]] Ordering Provider: Mio Minor PA Status: Verified (Past End Date/Time) Ordered On: 02/18/241819 Starts/Ends: 02/18/241820 - 02/19/241820 Ordered Dose (Remaining/Total): 650 mg (11/19) Route: oral Frequency: Once Ordered Rate/Order Duration: -- / -- (No admins scheduled or recorded for this medication) methylPREDNISolone sodium succinate (SOLU-medrol) preservative free injection 60 mg [[id number]] Ordering Provider: Mio Minor PA Status: Discontinued (Past End Date/Time) Ordered On: 02/18/242234 Starts/Ends: 02/18/242235 - 02/19/241513 Ordered Dose (Remaining/Total): 60 mg (--/--) Route: intravenous Frequency: Every 12 hours scheduled Ordered Rate/Order Duration: -- / 3 Minutes Line Med Link Info Comment Peripheral IV 02/18/24 22 G Left;Posterior Hand 02/18/242255 by Flor Nguyễn RN -- Timestamps Action Dose / Duration Route Other Information 02/19/24 0916 Given 60 mg 3 Minutes intravenous Performed by: Naveen Mike RN Scanned Package: [id number] ipratropium-albuteroL (DUO-NEB) 0.5-2.5 mg/3 mL nebulizer solution 3 mL [[id number]] Ordering Provider: Mio Minor PA Status: Verified Ordered On: 02/18/242234 Start: 02/18/242234 Ordered Dose (Remaining/Total): 3 mL (--/--) Route: nebulization Frequency: Every 6 hours PRN (incident response coordinator) Ordered Rate/Order Duration: -- / -- (No admins scheduled or recorded for this medication) azithromycin (ZITHROMAX) tablet 500 mg [[id number]] Ordering Provider: Mio Minor PA Status: Discontinued (Past End Date/Time) Ordered On: 02/18/242235 Starts/Ends: 02/18/242237 - 02/19/241515 Ordered Dose (Remaining/Total): 500 mg (--/--) Route: oral Frequency: Daily Ordered Rate/Order Duration: -- / -- Timestamps Action Dose Route Other Information 02/18/242255 Given 500 mg oral Performed by: Flor Nguyễn RN Scanned Package: 05764-225-63 cefTRIAXone (ROCEPHIN) 1,000 mg/10 mL in sterile water (premix) 1,000 mg [[id number]] Ordering Provider: Mio Minor PA Status: Discontinued (Past End Date/Time) Ordered On: 02/18/242235 Starts/Ends: 02/18/242236 - 02/19/241515 Ordered Dose (Remaining/Total): 1,000 mg (--/--) Route: intravenous Frequency: Every 12 hours scheduled Ordered Rate/Order Duration: 120 mL/hr / 5 Minutes Line Med Link Info Comment Peripheral IV 02/18/24 22 G Left;Posterior Hand 02/18/242255 by Flor Nguyễn RN -- Timestamps Action Dose / Rate / Duration Route Other Information 02/19/24 0920 Given 1,000 mg 120 mL/hr 5 Minutes intravenous Performed by: Naveen Mike RN ondansetron (ZOFRAN) injection 4 mg [[id number]] Ordering Provider: Mio Minor PA Status: Completed (Past End Date/Time) Ordered On: 02/18/242300 Starts/Ends: 02/18/242301 - 02/18/242304 Ordered Dose (Remaining/Total): 4 mg (0/1) Route: intravenous Frequency: Once Ordered Rate/Order Duration: -- / 2 Minutes Line Med Link Info Comment Peripheral IV 02/18/24 22 G Left;Posterior Hand 02/18/242302 by Flor Nguyễn RN -- Timestamps Action Dose / Duration Route Other Information 02/18/242302 Given 4 mg 2 Minutes intravenous Performed by: Flor Nguyễn RN enoxaparin (LOVENOX) syringe 40 mg [[id number]] Ordering Provider: Mio Minor PA Status: Discontinued (Past End Date/Time) Ordered On: 02/19/24 0806 Starts/Ends: 02/19/24 2100 - 02/19/24 1045 Ordered Dose (Remaining/Total): 40 mg (--/--) Route: subcutaneous Frequency: Daily (for enoxaparin) Ordered Rate/Order Duration: -- / -- (No admins scheduled or recorded for this medication) sodium chloride 0.9% bolus 1,000 mL [[id number]] Ordering Provider: Josef Momin MD Status: Completed (Past End Date/Time) Ordered On: 02/19/24 0551 Starts/Ends: 02/19/24 0552 - 02/19/24 0900 Ordered Dose (Remaining/Total): 1,000 mL (0/1) Route: intravenous Frequency: Once Ordered Rate/Order Duration: -- / -- Line Med Link Info Comment Peripheral IV 02/18/24 22 G Left;Posterior Hand 02/19/24 0556 by Flor Nguyễn RN -- Timestamps Action Dose Route Other Information 02/19/24 0556 New Bag 1,000 mL intravenous Performed by: Flor Nguyễn RN calcium carbonate (TUMS) chewable tablet 500 mg [[id number]] Ordering Provider: Peggy Hernandez MD Status: Dispensed Ordered On: 02/19/24805 Start: 02/19/24 0900 Ordered Dose (Remaining/Total): 200 mg of elemental calcium (--/--) Route: oral Frequency: Daily Ordered Rate/Order Duration: -- / -- Timestamps Action Dose Route Other Information 02/20/24 0828 Given 500 mg oral Performed by: Angelita Arreola RN Scanned Package: 31577-406-69 citalopram (CeleXA) tablet 20 mg [[id number]] Ordering Provider: Peggy Hernandez MD Status: Dispensed Ordered On: 02/19/24805 Start: 02/19/24 1200 Ordered Dose (Remaining/Total): 20 mg (--/--) Route: oral Frequency: Daily Ordered Rate/Order Duration: -- / -- Timestamps Action Dose Route Other Information 02/20/24 0829 Given 20 mg oral Performed by: Angelita Arreola RN Scanned Package: 9313-8810-04 clonazePAM (KlonoPIN) tablet 1 mg [[id number]] Ordering Provider: Peggy Hernandez MD Status: Dispensed Ordered On: 02/19/24805 Start: 02/19/24 0900 Ordered Dose (Remaining/Total): 1 mg (--/--) Route: oral Frequency: Daily Ordered Rate/Order Duration: -- / -- Timestamps Action Dose Route Other Information 02/20/24 0829 Given 1 mg oral Performed by: Angelita Arreola RN Scanned Package: 75786-082-19, 43048-037-59 furosemide (LASIX) tablet 10 mg [[id number]] Ordering Provider: Peggy Hernandez MD Status: Dispensed Ordered On: 02/19/24805 Start: 02/19/24 09 Ordered Dose (Remaining/Total): 10 mg (--/--) Route: oral Frequency: Daily Ordered Rate/Order Duration: -- / -- Timestamps Action Dose Route Other Information 02/20/24 0828 Given 10 mg oral Performed by: Angelita Arreola RN Scanned Package: 09834-371-44 pramipexole (MIRAPEX) tablet 1.5 mg [[id number]] Ordering Provider: Peggy Hernandez MD Status: Dispensed Ordered On: 02/19/24805 Start: 02/19/24 1200 Ordered Dose (Remaining/Total): 1.5 mg (--/--) Route: oral Frequency: 2 times daily Ordered Rate/Order Duration: -- / -- Timestamps Action Dose Route Other Information 02/20/24 08 Given 1.5 mg oral Performed by: Angelita Arreola RN Scanned Package: 99693-591-80, 59196-526-17, 08265-073-16 primidone (MYSOLINE) tablet 250 mg [[id number]] Ordering Provider: Peggy Hernandez MD Status: Dispensed Ordered On: 02/19/24805 Start: 02/19/24 1200 Ordered Dose (Remaining/Total): 250 mg (--/--) Route: oral Frequency: Daily Ordered Rate/Order Duration: -- / -- Timestamps Action Dose Route Other Information 02/20/24 08 Given 250 mg oral Performed by: Angelita Arreola RN Scanned Package: 77144-269-50, 67863-290-62, 98376-109-91, 92844-116-56, 38748-619-41 propranoloL (INDERAL) tablet 80 mg [[id number]] Ordering Provider: Peggy Hernandez MD Status: Dispensed Ordered On: 02/19/24805 Start: 02/19/24 0900 Ordered Dose (Remaining/Total): 80 mg (--/--) Route: oral Frequency: Every morning Ordered Rate/Order Duration: -- / -- Timestamps Action Dose Route Other Information 02/20/24 08 Given 80 mg oral Performed by: Angelita Arreola RN Scanned Package: 27366-431-05, 59236-419-52 propranoloL (INDERAL) tablet 40 mg [[id number]] Ordering Provider: Peggy Hernandez MD Status: Dispensed Ordered On: 02/19/24805 Start: 02/19/242099 Ordered Dose (Remaining/Total): 40 mg (--/--) Route: oral Frequency: Nightly Ordered Rate/Order Duration: -- / -- (No admins scheduled or recorded for this medication) rosuvastatin (CRESTOR) tablet 10 mg [[id number]] Ordering Provider: Peggy Hernandez MD Status: Dispensed Ordered On: 02/19/24805 Start: 02/19/242099 Ordered Dose (Remaining/Total): 10 mg (--/--) Route: oral Frequency: Nightly Ordered Rate/Order Duration: -- / -- Timestamps Action Dose Route Other Information 02/19/242047 Given 10 mg oral Performed by: Ronaldo Park RN Scanned Package: 40642-542-34 acetaminophen (TYLENOL) tablet 650 mg [[id number]] Ordering Provider: Peggy Hernandez MD Status: Dispensed Ordered On: 02/19/24805 Start: 02/19/24805 Ordered Dose (Remaining/Total): 650 mg (--/--) Route: oral Frequency: Every 4 hours PRN Ordered Rate/Order Duration: -- / -- Timestamps Action Dose Route Other Information 02/20/24 09 Given 650 mg oral Performed by: Angelita Arreola RN Scanned Package: 77290-173-13, 91501-658-73 ondansetron ODT (ZOFRAN-ODT) disintegrating tablet 4 mg [[id number]] Ordering Provider: Peggy Hernandez MD Status: Verified Ordered On: 02/19/24805 Start: 02/19/24805 Ordered Dose (Remaining/Total): 4 mg (--/--) Route: oral Frequency: Every 6 hours PRN Ordered Rate/Order Duration: -- / -- (No admins scheduled or recorded for this medication) ondansetron (ZOFRAN) injection 4 mg [[id number]] Ordering Provider: Peggy Hernandez MD Status: Verified Ordered On: 02/19/24805 Start: 02/19/24805 Ordered Dose (Remaining/Total): 4 mg (--/--) Route: intravenous Frequency: Every 6 hours PRN Ordered Rate/Order Duration: -- / 2 Minutes (No admins scheduled or recorded for this medication) polyethylene glycol (MIRALAX) packet 17 g [[id number]] Ordering Provider: Peggy Hernandez MD Status: Dispensed Ordered On: 02/19/24805 Start: 02/19/24805 Ordered Dose (Remaining/Total): 17 g (--/--) Route: oral Frequency: Daily PRN Ordered Rate/Order Duration: -- / -- Timestamps Action Dose Route Other Information 02/20/24 1309 Given 17 g oral Performed by: Angelita Arreola RN Scanned Package: 35863-762-61 enoxaparin (LOVENOX) syringe 40 mg [[id number]] Ordering Provider: Peggy Hernandez MD Status: Dispensed Ordered On: 02/19/24805 Start: 02/19/242099 Ordered Dose (Remaining/Total): 40 mg (--/--) Route: subcutaneous Frequency: Daily (for enoxaparin) Ordered Rate/Order Duration: -- / -- Timestamps Action Dose Route / Site Other Information 02/19/242047 Given 40 mg subcutaneous Right Lower Abdomen Performed by: Ronaldo Park RN Scanned Package: 42152-042-74 Lactated Ringer's (LR) infusion [[id number]] Ordering Provider: Peggy Hernandez MD Status: Dispensed Ordered On: 02/19/24906 Start: 02/19/24907 Ordered Dose (Remaining/Total): 100 mL/hr (--/--) Route: intravenous Frequency: Continuous Ordered Rate/Order Duration: 100 mL/hr / -- Line Med Link Info Comment Peripheral IV 02/18/24 22 G Left;Posterior Hand 02/19/24 0917 by Naveen Mike RN -- Timestamps Action Dose / Rate Route Other Information 02/20/24 1155 New Bag 100 mL/hr 100 mL/hr intravenous Performed by: Angelita Arreola RN Scanned Package: 7536-2745-[address] (PROTONIX) extended release tablet 40 mg [[id number]] Ordering Provider: Peggy Hernandez MD Status: Dispensed Ordered On: 02/19/24 1503 Start: 02/19/24 154 Ordered Dose (Remaining/Total): 40 mg (--/--) Route: oral Frequency: Daily Ordered Rate/Order Duration: -- / -- Admin Instructions: Do not crush, chew, cut, dissolve, open or otherwise manipulate tablet/capsule. Timestamps Action Dose Route Other Information 02/20/24 0829 Given 40 mg oral Performed by: Angelita Arreola RN Scanned Package: 24173-509-82 magnesium hydroxide (MILK OF MAGNESIA) 80 mg/mL (33.3 mg/mL as elemental magnesium) oral [id number] mL [[id number]] Ordering Provider: Peggy Hernandez MD Status: Dispensed Ordered On: 02/19/241514 Start: 02/19/241514 Ordered Dose (Remaining/Total): 30 mL (--/--) Route: oral Frequency: Daily PRN Ordered Rate/Order Duration: -- / -- Timestamps Action Dose Route Other Information 02/20/24 1309 Given 30 mL oral Performed by: Angelita Arreola RN Scanned Package: 32434-219-40 bisacodyl EC (DULCOLAX EC) tablet 10 mg [[id number]] Ordering Provider: Peggy Hernandez MD Status: Verified Ordered On: 02/19/241514 Start: 02/19/241514 Ordered Dose (Remaining/Total): 10 mg (--/--) Route: oral Frequency: Daily PRN Ordered Rate/Order Duration: -- / -- Admin Instructions: Do not crush, chew, cut, dissolve, open or otherwise manipulate tablet/capsule. (No admins scheduled or recorded for this medication) mineral oil (FLEET MINERAL OIL) enema 133 mL [[id number]] Ordering Provider: Peggy Hernandez MD Status: Verified Ordered On: 02/19/241514 Start: 02/19/241514 Ordered Dose (Remaining/Total): 1 enema (--/--) Route: rectal Frequency: Daily PRN Ordered Rate/Order Duration: -- / -- (No admins scheduled or recorded for this medication) benzonatate (TESSALON) capsule 100 mg [[id number]] Ordering Provider: Josef Momin MD Status: Discontinued (Past End Date/Time) Ordered On: 02/20/24214 Starts/Ends: 02/20/24214 - 02/20/24217 Ordered Dose (Remaining/Total): 100 mg (--/--) Route: oral Frequency: 3 times daily PRN Ordered Rate/Order Duration: -- / -- Admin Instructions: Do not crush, chew, cut, dissolve, open or otherwise manipulate tablet/capsule. (No admins scheduled or recorded for this medication) benzocaine-menthoL (CHLORASEPTIC) lozenge 1 lozenge [[id number]] Ordering Provider: Josef Momin MD Status: Discontinued (Past End Date/Time) Ordered On: 02/20/24217 Starts/Ends: 02/20/24216 - 02/20/24217 Ordered Dose (Remaining/Total): 1 lozenge (--/--) Route: mouth/throat Frequency: Every 4 hours PRN Ordered Rate/Order Duration: -- / -- (No admins scheduled or recorded for this medication) benzocaine-menthoL (CHLORASEPTIC) lozenge 1 lozenge [[id number]] Ordering Provider: Josef Momin MD Status: Dispensed Ordered On: 02/20/24218 Start: 02/20/24218 Ordered Dose (Remaining/Total): 1 lozenge (--/--) Route: mouth/throat Frequency: Every 4 hours PRN Ordered Rate/Order Duration: -- / -- Timestamps Action Dose Route Other Information 02/20/24 0829 Given 1 lozenge mouth/throat Performed by: Angelita Arreola RN Scanned Package: 8420-3653-15 benzonatate (TESSALON) capsule 100 mg [[id number]] Ordering Provider: Josef Momin MD Status: Dispensed Ordered On: 02/20/24218 Start: 02/20/24218 Ordered Dose (Remaining/Total): 100 mg (--/--) Route: oral Frequency: 3 times daily PRN Ordered Rate/Order Duration: -- / -- Admin Instructions: Do not crush, chew, cut, dissolve, open or otherwise manipulate tablet/capsule. Timestamps Action Dose Route Other Information 02/20/24 034 Given 100 mg oral Performed by: Ronaldo Park RN tiotropium bromide (SPIRIVA RESPIMAT) 2.5 mcg/actuation inhaler 2 puff [[id number]] Ordering Provider: Lew Chavez MD Status: Discontinued (Past End Date/Time), Reason: Formulary change Ordered On: 02/20/24850 Starts/Ends: 02/20/24929 - 02/20/24855 Ordered Dose (Remaining/Total): 2 puff (--/--) Route: inhalation Frequency: Daily (incident response coordinator) Ordered Rate/Order Duration: -- / -- (No admins scheduled or recorded for this medication) budesonide-formoteroL (SYMBICORT) 160-4.5 mcg/actuation inhaler 2 puff [[id number]] Ordering Provider: Lew Chavez MD Status: Verified Ordered On: 02/20/24850 Start: 02/20/24929 Ordered Dose (Remaining/Total): 2 puff (--/--) Route: inhalation Frequency: 2 times daily (incident response coordinator) Ordered Rate/Order Duration: -- / -- Admin Instructions: Rinse mouth with water after use. Do not swallow. (No admins scheduled or recorded for this medication) ipratropium (ATROVENT) 0.02 % nebulizer solution 0.5 mg [[id number]] Ordering Provider: Lew Chavez MD Status: Dispensed Ordered On: 02/20/24855 Start: 02/20/24 09 Ordered Dose (Remaining/Total): 0.5 mg (--/--) Route: nebulization Frequency: Every 6 hours (incident response coordinator) Ordered Rate/Order Duration: -- / -- (No admins scheduled or recorded for this medication) OT ASSESSMENT FLOWSHEET LAST DOCUMENTED (most recent) OT Evaluation - 02/20/24 111 Pain Assessment Pain Assessment No/denies pain OT TREATMENT FLOWSHEET LAST DOCUMENTED (most recent) OT Treatment - 02/20/24 1112 Pain Assessment Pain Assessment No/denies pain OT Notes 02/20/2024 1:30 PM Progress Notes signed by Lorrie Steel OT OT ASSESSMENT FLOWSHEET LAST DOCUMENTED (most recent) PT Evaluation - 02/20/24 111 Pain Assessment Pain Assessment No/denies pain PT TREATMENT (most recent) PT Treatment - 02/20/24 1112 Pain Assessment Pain Assessment No/denies pain PT Notes 02/19/2024 4:19 PM Progress Notes signed by Josef Solis PT AUDIOLOGY DIRECTOR ASSESSMENT (most recent) AUDIOLOGY DIRECTOR Evaluation - 02/20/24 1112 Pain Assessment Pain Assessment No/denies pain AUDIOLOGY DIRECTOR SWALLOW STUDY (most recent) Clinical Swallow Study No documentation. AUDIOLOGY DIRECTOR TREATMENT (most recent) AUDIOLOGY DIRECTOR Treatment - 02/20/24 1112 Pain Assessment Pain Assessment No/denies pain AUDIOLOGY DIRECTOR Notes Notes from 02/18/24 through 02/20/24 No notes of this type exist for this encounter. , Meds and Admin Active Only All Meds/Most Recent Administrations acetaminophen (TYLENOL) tablet 650 mg [[id number]] Ordering Provider: Mio Minor PA Status: Verified (Past End Date/Time) Ordered On: 02/18/241819 Starts/Ends: 02/18/241820 - 02/19/241820 Ordered Dose (Remaining/Total): 650 mg (11/19) Route: oral Frequency: Once Ordered Rate/Order Duration: -- / -- (No admins scheduled or recorded for this medication) ipratropium-albuteroL (DUO-NEB) 0.5-2.5 mg/3 mL nebulizer solution 3 mL [[id number]] Ordering Provider: Mio Minor PA Status: Verified Ordered On: 02/18/242234 Start: 02/18/242234 Ordered Dose (Remaining/Total): 3 mL (--/--) Route: nebulization Frequency: Every 6 hours PRN (incident response coordinator) Ordered Rate/Order Duration: -- / -- (No admins scheduled or recorded for this medication) ondansetron (ZOFRAN) injection 4 mg [[id number]] Ordering Provider: Mio Minor PA Status: Completed (Past End Date/Time) Ordered On: 02/18/242300 Starts/Ends: 02/18/242301 - 02/18/242304 Ordered Dose (Remaining/Total): 4 mg (0/1) Route: intravenous Frequency: Once Ordered Rate/Order Duration: -- / 2 Minutes Line Med Link Info Comment Peripheral IV 02/18/24 22 G Left;Posterior Hand 02/18/242302 by Flor Nguyễn RN -- Timestamps Action Dose / Duration Route Other Information 02/18/242302 Given 4 mg 2 Minutes intravenous Performed by: Flor Nguyễn RN sodium chloride 0.9% bolus 1,000 mL [[id number]] Ordering Provider: Josef Momin MD Status: Completed (Past End Date/Time) Ordered On: 02/19/24550 Starts/Ends: 02/19/24551 - 02/19/24899 Ordered Dose (Remaining/Total): 1,000 mL (0/1) Route: intravenous Frequency: Once Ordered Rate/Order Duration: -- / -- Line Med Link Info Comment Peripheral IV 02/18/24 22 G Left;Posterior Hand 02/19/24555 by Flor Nguyễn RN -- Timestamps Action Dose Route Other Information 02/19/24555 New Bag 1,000 mL intravenous Performed by: Flor Nguyễn RN calcium carbonate (TUMS) chewable tablet 500 mg [[id number]] Ordering Provider: Peggy Hernandez MD Status: Dispensed Ordered On: 02/19/24 08 Start: 02/19/24899 Ordered Dose (Remaining/Total): 200 mg of elemental calcium (--/--) Route: oral Frequency: Daily Ordered Rate/Order Duration: -- / -- Timestamps Action Dose Route Other Information 02/20/24 0828 Given 500 mg oral Performed by: Angelita Arreola RN Scanned Package: 86372-242-90 citalopram (CeleXA) tablet 20 mg [[id number]] Ordering Provider: Peggy Hernandez MD Status: Dispensed Ordered On: 02/19/24805 Start: 02/19/24 1200 Ordered Dose (Remaining/Total): 20 mg (--/--) Route: oral Frequency: Daily Ordered Rate/Order Duration: -- / -- Timestamps Action Dose Route Other Information 02/20/24 0829 Given 20 mg oral Performed by: Angelita Arreola RN Scanned Package: 2364-7953-35 clonazePAM (KlonoPIN) tablet 1 mg [[id number]] Ordering Provider: Peggy Hernandez MD Status: Dispensed Ordered On: 02/19/24805 Start: 02/19/24 09 Ordered Dose (Remaining/Total): 1 mg (--/--) Route: oral Frequency: Daily Ordered Rate/Order Duration: -- / -- Timestamps Action Dose Route Other Information 02/20/24 0829 Given 1 mg oral Performed by: Angelita Arreola RN Scanned Package: 10944-543-87, 10315-609-25 furosemide (LASIX) tablet 10 mg [[id number]] Ordering Provider: Peggy Hernandez MD Status: Dispensed Ordered On: 02/19/24805 Start: 02/19/24 09 Ordered Dose (Remaining/Total): 10 mg (--/--) Route: oral Frequency: Daily Ordered Rate/Order Duration: -- / -- Timestamps Action Dose Route Other Information 02/20/24 08 Given 10 mg oral Performed by: Angelita Arreola RN Scanned Package: 34638-523-89 pramipexole (MIRAPEX) tablet 1.5 mg [[id number]] Ordering Provider: Peggy Hernandez MD Status: Dispensed Ordered On: 02/19/24805 Start: 02/19/24 1200 Ordered Dose (Remaining/Total): 1.5 mg (--/--) Route: oral Frequency: 2 times daily Ordered Rate/Order Duration: -- / -- Timestamps Action Dose Route Other Information 02/20/24 0829 Given 1.5 mg oral Performed by: Angelita Arreola RN Scanned Package: 10553-137-61, 75372-457-87, 12435-399-70 primidone (MYSOLINE) tablet 250 mg [[id number]] Ordering Provider: Peggy Hernandez MD Status: Dispensed Ordered On: 02/19/24805 Start: 02/19/24 1200 Ordered Dose (Remaining/Total): 250 mg (--/--) Route: oral Frequency: Daily Ordered Rate/Order Duration: -- / -- Timestamps Action Dose Route Other Information 02/20/24 08 Given 250 mg oral Performed by: Angelita Arreola RN Scanned Package: 04685-283-74, 39214-928-58, 08245-882-60, 13225-976-13, 95644-707-02 propranoloL (INDERAL) tablet 80 mg [[id number]] Ordering Provider: Peggy Hernandez MD Status: Dispensed Ordered On: 02/19/24805 Start: 02/19/24 09 Ordered Dose (Remaining/Total): 80 mg (--/--) Route: oral Frequency: Every morning Ordered Rate/Order Duration: -- / -- Timestamps Action Dose Route Other Information 02/20/24 08 Given 80 mg oral Performed by: Angelita Arreola RN Scanned Package: 16278-787-66, 70467-545-43 propranoloL (INDERAL) tablet 40 mg [[id number]] Ordering Provider: Peggy Hernandez MD Status: Dispensed Ordered On: 02/19/24805 Start: 02/19/24 2100 Ordered Dose (Remaining/Total): 40 mg (--/--) Route: oral Frequency: Nightly Ordered Rate/Order Duration: -- / -- (No admins scheduled or recorded for this medication) rosuvastatin (CRESTOR) tablet 10 mg [[id number]] Ordering Provider: Peggy Hernandez MD Status: Dispensed Ordered On: 02/19/24805 Start: 02/19/242099 Ordered Dose (Remaining/Total): 10 mg (--/--) Route: oral Frequency: Nightly Ordered Rate/Order Duration: -- / -- Timestamps Action Dose Route Other Information 02/19/242047 Given 10 mg oral Performed by: Ronaldo Park RN Scanned Package: 52704-628-45 acetaminophen (TYLENOL) tablet 650 mg [[id number]] Ordering Provider: Peggy Hernandez MD Status: Dispensed Ordered On: 02/19/24805 Start: 02/19/24805 Ordered Dose (Remaining/Total): 650 mg (--/--) Route: oral Frequency: Every 4 hours PRN Ordered Rate/Order Duration: -- / -- Timestamps Action Dose Route Other Information 02/20/24912 Given 650 mg oral Performed by: Angelita Arreola RN Scanned Package: 87836-572-96, 70331-841-95 ondansetron ODT (ZOFRAN-ODT) disintegrating tablet 4 mg [[id number]] Ordering Provider: Peggy Hernandez MD Status: Verified Ordered On: 02/19/24805 Start: 02/19/24805 Ordered Dose (Remaining/Total): 4 mg (--/--) Route: oral Frequency: Every 6 hours PRN Ordered Rate/Order Duration: -- / -- (No admins scheduled or recorded for this medication) ondansetron (ZOFRAN) injection 4 mg [[id number]] Ordering Provider: Peggy Hernandez MD Status: Verified Ordered On: 02/19/24805 Start: 02/19/24805 Ordered Dose (Remaining/Total): 4 mg (--/--) Route: intravenous Frequency: Every 6 hours PRN Ordered Rate/Order Duration: -- / 2 Minutes (No admins scheduled or recorded for this medication) polyethylene glycol (MIRALAX) packet 17 g [[id number]] Ordering Provider: Peggy Hernandez MD Status: Dispensed Ordered On: 02/19/24 0806 Start: 02/19/24 0806 Ordered Dose (Remaining/Total): 17 g (--/--) Route: oral Frequency: Daily PRN Ordered Rate/Order Duration: -- / -- Timestamps Action Dose Route Other Information 02/20/24 1309 Given 17 g oral Performed by: Angelita Arreola RN Scanned Package: 41627-650-91 enoxaparin (LOVENOX) syringe 40 mg [[id number]] Ordering Provider: Peggy Hernandez MD Status: Dispensed Ordered On: 02/19/24 0806 Start: 02/19/24 2100 Ordered Dose (Remaining/Total): 40 mg (--/--) Route: subcutaneous Frequency: Daily (for enoxaparin) Ordered Rate/Order Duration: -- / -- Timestamps Action Dose Route / Site Other Information 02/19/242047 Given 40 mg subcutaneous Right Lower Abdomen Performed by: Ronaldo Park RN Scanned Package: 27312-387-95 Lactated Ringer's (LR) infusion [[id number]] Ordering Provider: Peggy Hernandez MD Status: Dispensed Ordered On: 02/19/24 0907 Start: 02/19/2408 Ordered Dose (Remaining/Total): 100 mL/hr (--/--) Route: intravenous Frequency: Continuous Ordered Rate/Order Duration: 100 mL/hr / -- Line Med Link Info Comment Peripheral IV 02/18/24 22 G Left;Posterior Hand 02/19/24 0917 by Naveen Mike RN -- Timestamps Action Dose / Rate Route Other Information 02/20/24 1155 New Bag 100 mL/hr 100 mL/hr intravenous Performed by: Angelita Arreola RN Scanned Package: 3759-5774-[address] (PROTONIX) extended release tablet 40 mg [[id number]] Ordering Provider: Peggy Hernandez MD Status: Dispensed Ordered On: 02/19/24 1503 Start: 02/19/24 1545 Ordered Dose (Remaining/Total): 40 mg (--/--) Route: oral Frequency: Daily Ordered Rate/Order Duration: -- / -- Admin Instructions: Do not crush, chew, cut, dissolve, open or otherwise manipulate tablet/capsule. Timestamps Action Dose Route Other Information 02/20/24 0829 Given 40 mg oral Performed by: Angelita Arreola RN Scanned Package: 13248-146-61 magnesium hydroxide (MILK OF MAGNESIA) 80 mg/mL (33.3 mg/mL as elemental magnesium) oral leahaxogfv18 mL [[id number]] Ordering Provider: Peggy Hernandez MD Status: Dispensed Ordered On: 02/19/241514 Start: 02/19/241514 Ordered Dose (Remaining/Total): 30 mL (--/--) Route: oral Frequency: Daily PRN Ordered Rate/Order Duration: -- / -- Timestamps Action Dose Route Other Information 02/20/24 1309 Given 30 mL oral Performed by: Angelita Arreola RN Scanned Package: 84597-935-84 bisacodyl EC (DULCOLAX EC) tablet 10 mg [[id number]] Ordering Provider: Peggy Hernandez MD Status: Verified Ordered On: 02/19/241514 Start: 02/19/241514 Ordered Dose (Remaining/Total): 10 mg (--/--) Route: oral Frequency: Daily PRN Ordered Rate/Order Duration: -- / -- Admin Instructions: Do not crush, chew, cut, dissolve, open or otherwise manipulate tablet/capsule. (No admins scheduled or recorded for this medication) mineral oil (FLEET MINERAL OIL) enema 133 mL [[id number]] Ordering Provider: Peggy Hernandez MD Status: Verified Ordered On: 02/19/241514 Start: 02/19/241514 Ordered Dose (Remaining/Total): 1 enema (--/--) Route: rectal Frequency: Daily PRN Ordered Rate/Order Duration: -- / -- (No admins scheduled or recorded for this medication) benzocaine-menthoL (CHLORASEPTIC) lozenge 1 lozenge [[id number]] Ordering Provider: Josef Momin MD Status: Dispensed Ordered On: 02/20/24218 Start: 02/20/24218 Ordered Dose (Remaining/Total): 1 lozenge (--/--) Route: mouth/throat Frequency: Every 4 hours PRN Ordered Rate/Order Duration: -- / -- Timestamps Action Dose Route Other Information 02/20/24828 Given 1 lozenge mouth/throat Performed by: Angelita Arreola RN Scanned Package: 1209-0714-12 benzonatate (TESSALON) capsule 100 mg [[id number]] Ordering Provider: Josef Momin MD Status: Dispensed Ordered On: 02/20/24218 Start: 02/20/24218 Ordered Dose (Remaining/Total): 100 mg (--/--) Route: oral Frequency: 3 times daily PRN Ordered Rate/Order Duration: -- / -- Admin Instructions: Do not crush, chew, cut, dissolve, open or otherwise manipulate tablet/capsule. Timestamps Action Dose Route Other Information 02/20/24347 Given 100 mg oral Performed by: Ronaldo Park RN budesonide-formoteroL (SYMBICORT) 160-4.5 mcg/actuation inhaler 2 puff [[id number]] Ordering Provider: Lew Chavez MD Status: Verified Ordered On: 02/20/24850 Start: 02/20/24929 Ordered Dose (Remaining/Total): 2 puff (--/--) Route: inhalation Frequency: 2 times daily (incident response coordinator) Ordered Rate/Order Duration: -- / -- Admin Instructions: Rinse mouth with water after use. Do not swallow. (No admins scheduled or recorded for this medication) ipratropium (ATROVENT) 0.02 % nebulizer solution 0.5 mg [[id number]] Ordering Provider: Lew Chavez MD Status: Dispensed Ordered On: 02/20/24855 Start: 02/20/24929 Ordered Dose (Remaining/Total): 0.5 mg (--/--) Route: nebulization Frequency: Every 6 hours (incident response coordinator) Ordered Rate/Order Duration: -- / -- (No admins scheduled or recorded for this medication) * [facility] Note - Debo Lee LCSW - 02/20/2024 1:56 PM CDT Images from the original note were not included. Patient Information: OT Eval and Treat Last 72 Hours OT Evaluation Row Name 02/20/24 0854 Chart Reviewed Yes -AV Session Type Evaluation -AV OT Received On 02/20/24 -AV Subjective Agreeable to Therapy -AV Family/Caregiver Present No -AV Type of Home House -AV Bathroom Shower/Tub Walk-in shower with threshold -AV Bathroom Equipment Shower chair -AV Home Mobility Equipment-Available Crutches;Wheeled walker;Single point cane -AV Home Mobility Equipment-Currently Using Wheeled walker -AV Level of [place] Independent with ADLs;Independent functional transfers;Independent with ambulation;Independent with homemaking with ambulation patient has required assist recently -AV Lives With Spouse -AV Receives Help From Spouse/Significant other -AV Driving Yes -AV ADL Assistance Independent -AV Instrumental ADL (IADL) Assistance Independent patient has had family assist with IADLs recently -AV Grooming: Where assessed Standing at sink -AV Grooming: Equipment utilized -- w/w -AV Grooming: Level of assistance Minimum Assist -AV Grooming: Assistance with Wash/dry hands;Teeth care -AV LE Dressing: Where assessed Edge of bed -AV LE Dressing: Level of assistance Dependent -AV LE Dressing: Assistance with Don/doff L sock;Don/doff R sock -AV Toileting: Where assessed Toilet -AV Toileting: Equipment utilized -- w/w -AV Toileting: Level of assistance Moderate Assist -AV Toileting: Assistance with Clothing management up;Clothing management down -AV Room Mobility: Where assessed bed to bathroom to bedside chair -AV Health Management: Equipment -- w/w -AV Room Mobility: Level of Assistance Minimum Assist -AV Room Mobility comment patient requires increased time to complete any functional mobility -AV Toilet Transfer From Bed -AV Toilet Transfer Type To -AV Toilet Transfer to Standard toilet -AV Toilet Transfer Technique Ambulating -AV Toilet Transfer: Equipment Wheeled walker -AV Toilet Transfers Minimal assistance -AV Pain Score 8 -AV Pain Location Head -AV Overall Cognitive Status WFL -AV Arousal/Alertness Alert -AV Orientation Oriented X4 (person, place, time, situation) -AV Following Commands Follows all commands and directions without difficulty -AV Compliance/Behavior Easy to engage -AV Static Sitting-Balance Support Bilateral upper extremity supported -AV Static Sitting-Sitting Surface Bed -AV Static Sitting-Level of Assistance Close supervision -AV Static Standing-Balance Support Bilateral upper extremity supported -AV Static Standing-Standing Surface Floor -AV Static Standing-Level of Assistance Minimum assistance;Contact guard -AV Bed Mobility From 1 Supine -AV Bed Mobility Type 1 To -AV Bed Mobility to 1 Edge of bed -AV Level of Assistance 1 Minimum Assist -AV Comments Patient is very slow during functional mobility requiring a lot of increased time and cueing to complete -AV Prognosis Good -AV Problem List Decreased safe judgment during ADL;Decreased endurance;Decreased functional mobility;Decreased ADL independence -AV Barriers to Discharge None -AV Plan Plan of care initiated;If this is the last note, consider this the discharge summary -AV OT Recommendation Senior Living Facility -AV Patient at high risk for Falls;Injury due to decreased ability to care for self;Injury due to reduced functional status;Injury at home as patient has not returned to prior level of function -AV Recommend SNF due to Risk of injury at home;Unable to safely care for self in the home;Skilled therapy needed to address care for self in the home;Skilled therapy needed to address functional deficits;Skilled therapy needed for patient to return to prior level of independence -AV OT Frequency during current admission 3-5x/wk -AV Treatment/Interventions during current admission ADL/IADL retraining;Functional mobility training -AV OT Evaluation Complete Yes -AV User Navarro (r) = Recorded By, (t) = Taken By, (c) = Cosigned By Initials Name Effective Dates AV Lorrie Steel OT 03/30/22 - OT Treatment No documentation. OT Notes 02/20/2024 1:30 PM Progress Notes signed by Lorrie Steel OT , PT Eval and Treat Last 72 Hours PT Evaluation Row Name 02/19/24 3566 Chart Reviewed Yes -JL Session Type Evaluation -JL Safe Environment Arm band checked;Patient found in supine;Session completed bedside;Gait belt utilized for all out of bed mobility -JL Subjective Agreeable to Therapy -JL Family/Caregiver Present Yes -JL Physical Therapy-Patient Goal to go to [facility] to get stronger -JL Precautions Fall risk -JL Type of Home House -JL Home Layout One level;Basement -JL Home Access Stairs to enter with rails -JL Entrance Stairs-Rails Right -JL Entrance Stairs-Number of Steps 2 -JL Home Mobility Equipment-Available Wheeled walker;Single point cane -JL Home Mobility Equipment-Currently Using Wheeled walker -JL Level of [place] Needs assistance with ADLs;Needs assistance with ambulation;Needs assistance with functional transfers was indep has needed assist the past few days -JL Lives With Spouse -JL Receives Help From Spouse/Significant other -JL Driving Yes -JL Fall within the last 6 months No -JL Prior Function Comments Aug fell out of bed and broke left hip -JL Pain Assessment 0-10 -JL Pain Score 10 - Worst possible pain -JL Pain Type Acute pain -JL Pain Location Knee -JL Pain Orientation Right -JL Overall Cognitive Status WFL -JL Orientation Oriented X4 (person, place, time, situation) -JL Compliance/Behavior Easy to engage -JL Balance Yes -JL Static Sitting-Balance Support Bilateral upper extremity supported;Feet supported -JL Static Sitting-Sitting Surface Bed -JL Static Sitting-Level of Assistance Close supervision -JL Static Standing-Balance Support Bilateral upper extremity supported -JL Static Standing-Standing Surface Floor -JL Static Standing-Level of Assistance Minimum assistance -JL Static Standing-Comment/# of Minutes pt fearful of falling -JL Bed Mobility From 1 Supine -JL Bed Mobility Type 1 To -JL Bed Mobility to 1 Edge of bed -JL Level of Assistance 1 Contact Guard Assist;Minimum Assist -JL Bed Mobility Comments 1 pt needs assist of the bedrail to elevate trunk -JL Transfer From 1 Bed;Sit -JL Transfer Type 1 To and from -JL Transfer to 1 Stand;Toilet -JL Technique 1 Sit to stand;Stand to sit -JL Transfer Device 1 Wheeled walker -JL Transfer Level of Assistance 1 Minimum Assist -JL Trials/Comments 1 pt fearful of falling -JL Distance (ft) 1 15' x 2 -JL Surface 1 Level tile -JL Device 1 Wheeled walker -JL Assistance 1 Minimum Assist;Moderate Assist -JL Gait: Requires assist with 1 Maintaining balance;Preventing knee buckling -JL Quality of Gait 1 LLE IR, bilat knees slightly flexed, dec; sourav, step length and sourav -JL Ambulation Comments 1 pt fearful of faling -JL RLE Assessment X arom wfl, gross strength 3/5 -JL LLE Assessment X arom wfl, gross strength 3/5 -JL How much difficulty does the patient have: Turning over in bed 3 -JL How much difficulty does the patient currently have: Sitting down and standing up from a chair witharms? 3 -JL How much difficulty does the patient have: Moving from lying on back to sitting on the side of the bed? 3 -JL How much difficulty does the patient have: Moving to and from a bed to a chair including wheelchair? 3 -JL How much help does the patient currently need: Walk in hospital room? 2 -JL How much help from another person does the patient currently need: Climbing 3-5 steps with a railing? 2 -JL Total 6 Click Score (range 6-24) 16 -JL Score Interpretation 38.32 -JL Safe Environment End of Therapy Session Patient left in recliner;RN notified;Call light within reach;Overbed table within reach -JL Prognosis Good -JL Problem List Gait deviations;Decreased strength;Decreased endurance;Impaired balance;Decreased mobility;Pain -JL Barriers to Discharge Current Mobility Status -JL Plan Plan of care initiated;If this is the last note, consider this the discharge summary -JL PT Recommendation/Plan Senior Living Facility pt would like to go to [facility] [place] -JL Patient at high risk for Falls;Readmission;Injury due to decreased ability to care for self;Injury due to reduced functional status;Injury due to balance deficits -JL Recommend SNF due to Risk of injury at home;Unable to safely care for self in the home;Skilled therapy needed to address care for self in the home;Skilled therapy needed to address functional deficits;Skilled therapy needed for patient to return to prior level of independence -JL PT Frequency during current admission Daily -JL Treatment/Interventions during current admission Bed mobility;Functional transfer training;Gait training;Therapeutic exercise -JL PT Equipment Recommended None -JL PT Evaluation Complete Yes -JL User Navarro (r) = Recorded By, (t) = Taken By, (c) = Cosigned By Initials Name Effective Dates JL Josef Solis, PT 08/11/19 - PT TREATMENT (last 168 hours) PT Treatment No documentation. PT Notes 02/19/2024 4:19 PM Progress Notes signed by Josef Solis, PT * Plan of Care - Debo Lee LCSW - 02/20/2024 7:34 AM CDT [place] PASSR completed 02/20/24. * Plan of Care - Ronaldo Park RN - 02/20/2024 3:32 AM CDT Goals: Clinical Goals for the Shift: VSS, pain managed Summary: Problem: Discharge Planning Goal: Understanding discharge needs will improve Outcome: Progressing Problem: Fall Risk Goal: Ability to state ways to decrease the risk of falls will improve Outcome: Progressing Goal: Will remain free from falls Outcome: Progressing Goal: Will remain free from injury from falls Outcome: Progressing Problem: Lack of Knowledge Goal: Ability to develop a pain control plan will improve Outcome: Progressing Problem: Medication Goal: Satisfaction with pain management medication regimen will improve Outcome: Progressing * Plan of Care - Leanne Brady RN - 02/19/2024 6:30 PM CDT Problem: Lack of Knowledge Goal: Ability to develop a pain control plan will improve Outcome: Ongoing Flowsheets (Taken 02/19/20242007) Ability to develop a pain control plan will improve: Explain causes of pain and how long pain can be expected to last Teach information regarding pain management Educate pain scale for assessing level of pain Problem: Medication Goal: Satisfaction with pain management medication regimen will improve Outcome: Ongoing Flowsheets (Taken 02/19/20242007) Satisfaction with pain management medication regimen will improve: Assess satisfaction with pain management regimen Problem: Sensory Goal: Ability to identify factors that increase pain levels will improve while working to decrease the patient's pain levels Outcome: Ongoing Flowsheets (Taken 02/19/20242007) Ability to identify factors that increase pain levels will improve while working to decrease patients pain levels: Assess pain status Problem: Fall Risk Goal: Will remain free from falls Outcome: Progressing Flowsheets (Taken 02/19/20242007) Will remain free from falls: Assess risk factors for falls Implement fall prevention measures Goals: Clinical Goals for the Shift: Pt's vital signs will remain stable. Pt's pain will reach a tolerablelevel. Summary: Pt admitted to 2621 from the emergency department. Pt's vital signs are stable. Pt reported pain in her right knee with exertion, but she stated the pain subsided upon rest. Pt's care plan goals are initiated. Pt is resting comfortably in the chair with call light within reach. * ED Procedure Note - Mio Minor PA - 02/18/2024 10:28 PM CDTAssociated Order(s): ECG 12 lead Procedure ECG 12 lead Date/Time: 02/18/2024 10:28 PM Performed by: Mio Minor PA Authorized by: Ishmael Hawkins MD Rate: ECG rate assessment: normal Rhythm: Rhythm: sinus rhythm Ectopy: Ectopy: none Previous ECG: Previous ECG: Compared to current Date of previous EC03/29/2023 Comparison ECG info: Similar to prior study 03/29/2023 Similarity: No change Interpretation: Interpretation: No significant change Recommended Follow-up: Recommended follow up: further workup in the ED Reviewed by Mio Thompson Dr., PA 02/18/242228 * ED Triage Provider Note - Mio Minor PA - 02/18/2024 6:18 PM CDT Rapid Medical Evaluation: S - 74-year-old female with past history of COPD on oxygen and chronic tremors presents with her with complaints of progressive weakness and shortness of breath. O - CONSTITUTIONAL: Well-appearing; well-nourished; in no apparent distress HEAD: Normocephalic; atraumatic EYES: PERRL; conjunctiva and sclera are clear bilaterally. ENT: canals normal; no rhinorrhea; oropharynx clear. NECK: Trachea midline. Negative JVD. CARD: Regular rhythm. Rate WNL. RESP: Normal respiratory effort; breath sounds few coarse crackles and few wheezes. MUSCULOSKELETAL: Normal ROM in all four extremities. SKIN: warm; dry; good turgor. NEURO: COA x 3. Motor and sensory grossly intact. CN 2-12 intact. Fine tremor of hands noted. A - weakness. Dyspnea. P - IV, CBC, CMP, troponin series, BNP, urinalysis, viral PCR test, chest x-ray, and EKG. Ordered cardiac and SaO2 monitoring. Ordered oxygen therapy. To go to room as soon as possible. Note: Exam limited as patient was seated in a chair in triage. Voice recognition software [employer] Direct was used to dictate and transcribe this document. Product Managent Intern variances may occur. Despite proofreading, typographical errors may occur. documented in this encounter Plan of Treatment Not on file documented as of this encounter Procedures Procedure Name Priority Date/Time Associated Diagnosis Comments EGFR Routine 02/23/2024 2:57 AM CDT DIFFERENTIAL AUTO Routine 02/23/2024 2:5 7 AM CDT CBC WITH AUTO DIFFERENTIAL Routine 02/23/2024 2:57 AM CDT PHOSPHORUS Routine 02/23/2024 2:57 AM CDT MAGNESIUM Routine 02/23/2024 2:57 AM CDT COMPREHENSIVE METABOLIC PANEL Routine 02/23/2024 2:57 AM CDT COVID-19 CORONAVIRUS RNA Routine 02/22/2024 6:25 PM CDT EGFR Routine 02/22/2024 2:43 AM CDT DIFFERENTIAL AUTO Routine 02/22/2024 2:4 3 AM CDT CBC WITH AUTO DIFFERENTIAL Routine 02/22/2024 2:43 AM CDT PHOSPHORUS Routine 02/22/2024 2:43 AM CDT MAGNESIUM Routine 02/22/2024 2:43 AM CDT COMPREHENSIVE METABOLIC PANEL Routine 02/22/2024 2:43 AM CDT US GUIDED ARTHROCENTESIS MAJOR JOINT IP Routine 02/21/2024 9:56 AM CDT CRYSTAL ANALYSIS, BODY FLUID Routine 02/21/2024 9:50 AM CDT AEROBIC AND ANAEROBIC CULTURE AND GRAM STAIN Routine 02/21/2024 9:50 AM CDT EGFR Routine 02/21/2024 3:37 AM CDT DIFFERENTIAL AUTO Routine 02/21/2024 3:3 7 AM CDT CBC WITH AUTO DIFFERENTIAL Routine 02/21/2024 3:37 AM CDT PHOSPHORUS Routine 02/21/2024 3:37 AM CDT MAGNESIUM Routine 02/21/2024 3:37 AM CDT COMPREHENSIVE METABOLIC PANEL Routine 02/21/2024 3:37 AM CDT US LOWER EXTREMITY RIGHT LIMITED IP Routine 02/20/2024 3:06 PM CDT XR KNEE RIGHT 3 VIEWS IP Routine 02/20/2024 1:36 PM CDT EGFR Routine 02/20/2024 2:53 AM CDT DIFFERENTIAL AUTO Routine 02/20/2024 2:5 3 AM CDT CBC WITH AUTO DIFFERENTIAL Routine 02/20/2024 2:53 AM CDT URIC ACID Routine 02/20/2024 2:53 AM CDT PHOSPHORUS Routine 02/20/2024 2:53 AM CDT MAGNESIUM Routine 02/20/2024 2:53 AM CDT COMPREHENSIVE METABOLIC PANEL Routine 02/20/2024 2:53 AM CDT ERYTHROCYTE SEDIMENTATION RATE Routine 02/19/2024 2:38 PM CDT URINALYSIS AND REFLEX TO MICROSCOPIC AND CULTURE STAT 02/19/2024 8:07 AM CDT URINALYSIS, MICROSCOPIC ONLY STAT 02/19/2024 8:07 AM CDT URINE CULTURE STAT 02/19/2024 8:07 AM CDT TROPONIN T HIGH-SENSITIVITY 6-HOUR Timed 02/19/2024 12:19 AM CDT PROCALCITONIN Routine 02/19/2024 12:19 AM CDT CRP (ACUTE PHASE) Routine 02/19/2024 12: 19 AM CDT TROPONIN T HIGH-SENSITIVITY 4-HR Timed 02/18/2024 10:35 PM CDT INFLUENZA A/B, RSV, AND COVID-19 PCR Routine 02/18/2024 10:23 PM CDT XR CHEST 1 VIEW ED 02/18/2024 8:39 PM CDT TROPONIN T HIGH-SENSITIVITY SERIES (BASELINE, 2HR, 4HR, 6HR) STAT 02/18/2024 6:14 PM CDT EGFR STAT 02/18/2024 6:14 PM CDT DIFFERENTIAL AUTO STAT 02/18/2024 6:1 4 PM CDT PRO B-TYPE NATRIURETIC PEPTIDE STAT 02/18/2024 6:14 PM CDT CBC WITH AUTO DIFFERENTIAL STAT 02/18/2024 6:14 PM CDT COMPREHENSIVE METABOLIC PANEL STAT 02/18/2024 6:14 PM CDT ECG 12-LEAD Routine 02/18/2024 6:10 PM CDT documented in this encounter Results * eGFR (02/23/2024 2:57 AM CDT) eGFR >90 >=60 mL/min/1. 73 m2 Comment: Interpretive Data Reference Interval Normal ?>/= 90 mL/min/1.73m2 Mildly decreased* ? 60 - 89 mL/min/1.73m2 Mildly to moderately decreased ?45 - 59 mL/min/1.73m2 Moderately to severely decreased ??30 - 44 mL/min/1.73m2 Severely decreased ?15 - 29 mL/min/1.73m2 Kidney Failure ?< 15 ??mL/min/1.73m2 *Relative to young adult level Estimated glomerular filtration rate is determined by the 2020 CKD-EPI equation recommended by the National Kidney Foundation (A Unifying Approach to GFR Estimation: Recommendations of the NKF-ASK Task Force on Reassessing the Inclusion of Race in Diagnosing Kidney Disease, JASN 202). The CKD-EPI equation should not be used for patients with unstable renal function and has not been validated in children and those over 70. Current interpretive data was last reviewed 2021. Blood 02/23/2024 2:57 AM CDT 02/23/2024 3:23 AM CDT Josef Ramirez Jr., MD LAB BLOOD ORDERABLE S Final Result [facility] ([place]) [facility] [place] [address] * (ABNORMAL) Differential, auto (02/23/2024 2:57 AM CDT) Neutrophil abs 3.7 1.5 - 6.5 K/cumm Imm gran abs 0.0 0.0 - 0.1 K/cumm [facility] ([place]) Lymphocyte abs 2.1 0.8 - 3.3 K/cumm [facility] ([place]) Monocyte abs 0.1(L) 0.2 - 0.8 K/cumm [facility] ([place]) Eosinophil abs 0.2 0.0 - 0.5 K/cumm [facility] ([place]) Basophil abs 0.0 0.0 - 0.1 K/cumm [facility] ([place]) Neutrophil pct 59.9 % [facility] ([place]) Comment: Interpretive Data Percent cell count reference ranges are not reported, since discordance with absolute values may lead to misinterpretation of CBC data. Current Interpretive Data was last revised on 2018. Imm gran pct 0.5 % [facility] ([place]) Comment: Interpretive Data Percent cell count reference ranges are not reported, since discordance with absolute values may lead to misinterpretation of CBC data. Current Interpretive Data was last revised on 2018. Lymphocyte pct 34.0 % [facility] ([place]) Comment: Interpretive Data Percent cell count reference ranges are not reported, since discordance with absolute values may lead to misinterpretation of CBC data. Current Interpretive Data was last revised on 2018. Monocyte pct 2.3 % [facility] ([place]) Comment: Interpretive Data Percent cell count reference ranges are not reported, since discordance with absolute values may lead to misinterpretation of CBC data. Current Interpretive Data was last revised on 2018. Eosinophil pct 2.6 % [facility] ([place]) Comment: Interpretive Data Percent cell count reference ranges are not reported, since discordance with absolute values may lead to misinterpretation of CBC data. Current Interpretive Data was last revised on 2018. Basophil pct 0.7 % [facility] ([place]) Comment: Interpretive Data Percent cell count reference ranges are not reported, since discordance with absolute values may lead to misinterpretation of CBC data. Current Interpretive Data was last revised on 2018. Blood 02/23/2024 2:57 AM CDT 02/23/2024 3:22 AM CDT us Josef Ramirez Jr., MD LAB BLOOD ORDERABLE S Final Result [facility] ([place]) [facility] [place] [address] * (ABNORMAL) CBC with auto differential (02/23/2024 2:57 AM CDT) WBC 6.1 3.8 - 9.9 K/cumm Hgb 9.9(L) 11.9 - 15.5 g/dL [facility] ([place]) Hct 32.2(L) 35.6 - 45.5 % [facility] ([place]) Plt 472(H) 150 - 400 K/cumm [facility] ([place]) MPV 8.2(L) 9.1 - 12.3 fL [facility] ([place]) RBC 3.35(L) 3.90 - 5.20 M/cumm [facility] ([place]) MCV 96.1 81.3 - 96.4 fL [facility] MCH 29.6 27.1 - 33.3 pg [facility] MCHC 30.7(L) 32.3 - 35.7 g/dL [facility] ([place]) RDW CV 16.3(H) 11.1 - 14.9 % [facility] RDW SD 57.7(H) 35.7 - 48.1 fL [facility] ([place]) NRBC abs 0.00 0.00 - 0.01 K/cumm [facility] ([place]) Blood 02/23/2024 2:57 AM CDT 02/23/2024 3:22 AM CDT us Josef Ramirez Jr., MD LAB BLOOD ORDERABLE S Final Result [facility] ([place] [place] [address] * Phosphorus (02/23/2024 2:57 AM CDT) Phosphorus, pl 3.6 2.3 - 4.5 mg/dL Blood 02/23/2024 2:57 AM CDT 02/23/2024 3:23 AM CDT us Josef Ramirez Jr., MD LAB BLOOD ORDERABLE S Final Result Performing Organization Address City/[facility]/ZIP Co de Phone Number [facility] ([place]) [facility] [place] [address] * Magnesium (02/23/2024 2:57 AM CDT) Pathologist [facility] Magnesium 2.1 1.4 - 2.5 mg/dL Blood 02/23/2024 2:57 AM CDT 02/23/2024 3:23 AM CDT us Josef Ramirez Jr., MD LAB BLOOD ORDERABLE S Final Result Performing Organization Address City/[facility]/ZIP Co de Phone Number [facility] ([place]) [facility] [place] [address] * (ABNORMAL) Comprehensive metabolic panel (02/23/2024 2:57 AM CDT) Sodium 140 135 - 145 mmol/L Potassium, pl 4.1 3.3 - 4.9 mmol/L [facility] Chloride 96(L) 97 - 110 mmol/L [facility] ([place]) CO2 37(H) 22 - 32 mmol/L [facility] ([place] Anion gap 7 2 - 15 mmol/L [facility]) BUN 5(L) 6 - 25 mg/dL [facility] ([place]) Creatinine 0.49(L) 0.60 - 1.10 mg/dL [facility] ([place]) Glucose 114 70 - 199 mg/dL [facility] ([place]) Comment: Interpretive Data Fasting glucose >/= 126 mg/dl is diagnostic for diabetes. ?? Fasting is defined as no caloric intake for at least 8 hours. Fasting glucose between 100 mg/dl to 125 mg/dl is diagnostic of prediabetes. In a patient with classic symptoms of hyperglycemia or hyperglycemic crisis, a random glucose >/= 200 mg/dl is diagnostic for diabetes. In the absence of unequivocal hyperglycemia, results should be confirmed by repeat testing. The classification and Diagnosis of Diabetes Diabetes Care 2021; 46: S19-S40. Current interpretive data was last revised 2022. Calcium 9.4 8.5 - 10.3 mg/dL [facility] ([place]) Bilirubin, total <0.2 0.1 - 1.2 mg/dL [facility] ([place]) Protein, pl 5.8(L) 6.5 - 8.5 g/dL [facility] ([facility]) Albumin 2.7(L) 3.5 - 5.0 g/dL [facility] ([facility]) Alk phos 83 40 - 130 Units/L [facility] ([facility]) ALT 21 7 - 45 Units/L [facility] ([facility]) AST 15 10 - 45 Units/L [facility] ([facility]) Blood 02/23/2024 2:57 AM CDT 02/23/2024 3:23 AM CDT us Josef Ramirez Jr., MD LAB BLOOD ORDERABLE S Final Result [facility] ([facility]) 1 [facility] Department [place] [address] * COVID-19 Coronavirus RNA Nasopharyngeal (02/22/2024 6:25 PM CDT) COVID-19 RNA Negative Negative Nasopharyngeal 02/22/2024 6: 25 PM CDT 02/22/2024 6:30 PM CDT Narrative [facility] ([facility]) - 02/22/2024 7:08 PM CDT Is the patient experiencing any symptoms consistent with COVID (eg. Fever, cough, shortness of breath)?->No What is the reason for testing?->Screening for post-acute care placement ??Interpretive data: Synonyms for this test include: PCR and NAAT . ??This test is performed using the [employer] Xpert Xpress plus assay. This is a real-time RT-PCR test intended for the qualitative detection of nucleic acid from the SARS-CoV-2. This assay has been reviewed by the FDA for Emergency Use Authorization (EUA). The performance characteristics have been verified by the performing laboratory. Results must be considered in the clinical context and a negative result does not rule out infection. Interpretive data last revised April 19, 2022. ??Interpretive data: Synonyms for this test include: PCR and NAAT . ??This test is performed using the [employer] Xpert Xpress plus assay. This is a real-time RT-PCR test intended for the qualitative detection of nucleic acid from the SARS-CoV-2. This assay has been reviewed by the FDA for Emergency Use Authorization (EUA). The performance characteristics have been verified by the performing laboratory. Results must be considered in the clinical context and a negative result does not rule out infection. Interpretive data last revised April 19, 2022. Josef Ramirez Jr., MD LAB MICROBIOLOGY - GENERAL ORDERABLES Final Result [facility] ([place]) [address] [facility] [place] [address] * eGFR (02/22/2024 2:43 AM CDT) eGFR >90 >=60 mL/min/1. 73 m2 Comment: Interpretive Data Reference Interval Normal ?>/= 90 mL/min/1.73m2 Mildly decreased* ? 60 - 89 mL/min/1.73m2 Mildly to moderately decreased ?45 - 59 mL/min/1.73m2 Moderately to severely decreased ??30 - 44 mL/min/1.73m2 Severely decreased ?15 - 29 mL/min/1.73m2 Kidney Failure ?< 15 ??mL/min/1.73m2 *Relative to young adult level Estimated glomerular filtration rate is determined by the 2020 CKD-EPI equation recommended by the National Kidney Foundation (A Unifying Approach to GFR Estimation: Recommendations of the NKF-ASK Task Force on Reassessing the Inclusion of Race in Diagnosing Kidney Disease, JASN 2020). The CKD-EPI equation should not be used for patients with unstable renal function and has not been validated in children and those over 70. Current interpretive data was last reviewed 2021. Blood 02/22/2024 2:43 AM CDT 02/22/2024 3:06 AM CDT us Josef Ramirez Jr., MD LAB BLOOD ORDERABLE S Final Result [facility] ([place]) 1 [facility] [place] [address] * Differential, auto (02/22/2024 2:43 AM CDT) Neutrophil abs 4.0 1.5 - 6.5 K/cumm Imm gran abs 0.0 0.0 - 0.1 K/cumm [facility] ([facility]) Lymphocyte abs 2.2 0.8 - 3.3 K/cumm [facility] ([place]) Monocyte abs 0.2 0.2 - 0.8 K/cumm [facility] ([place]) Eosinophil abs 0.1 0.0 - 0.5 K/cumm [facility] ([place]) Basophil abs 0.0 0.0 - 0.1 K/cumm [facility] ([facility]) Neutrophil pct 61.2 % [facility] ([facility]) Comment: Interpretive Data Percent cell count reference ranges are not reported, since discordance with absolute values may lead to misinterpretation of CBC data. Current Interpretive Data was last revised on 2018. Imm gran pct 0.2 % [facility] ([place]) Comment: Interpretive Data Percent cell count reference ranges are not reported, since discordance with absolute values may lead to misinterpretation of CBC data. Current Interpretive Data was last revised on 2018. Lymphocyte pct 33.5 % [facility] ([facility]) Comment: Interpretive Data Percent cell count reference ranges are not reported, since discordance with absolute values may lead to misinterpretation of CBC data. Current Interpretive Data was last revised on 2018. Monocyte pct 2.9 % [facility] ([place]) Comment: Interpretive Data Percent cell count reference ranges are not reported, since discordance with absolute values may lead to misinterpretation of CBC data. Current Interpretive Data was last revised on 2018. Eosinophil pct 1.7 % [facility] ([facility]) Comment: Interpretive Data Percent cell count reference ranges are not reported, since discordance with absolute values may lead to misinterpretation of CBC data. Current Interpretive Data was last revised on 2018. Basophil pct 0.5 % [facility] ([place]) Comment: Interpretive Data Percent cell count reference ranges are not reported, since discordance with absolute values may lead to misinterpretation of CBC data. Current Interpretive Data was last revised on 2018. Blood 02/22/2024 2:43 AM CDT 02/22/2024 3:04 AM CDT us Josef Ramirez Jr., MD LAB BLOOD ORDERABLE S Final Result [facility] ([place]) 1 [facility] [place] [address] * (ABNORMAL) CBC with auto differential (02/22/2024 2:43 AM CDT) WBC 6.5 3.8 - 9.9 K/cumm Hgb 9.5(L) 11.9 - 15.5 g/dL [facility] ([place]) Hct 30.7(L) 35.6 - 45.5 % [facility] ([place]) Plt 437(H) 150 - 400 K/cumm [facility] ([place]) MPV 8.1(L) 9.1 - 12.3 fL [facility] ([place]) RBC 3.23(L) 3.90 - 5.20 M/cumm [facility] ([place]) MCV 95.0 81.3 - 96.4 fL [facility] ([place]) MCH 29.4 27.1 - 33.3 pg [facility] ([place]) MCHC 30.9(L) 32.3 - 35.7 g/dL [facility] ([place]) RDW CV 16.5(H) 11.1 - 14.9 % [facility] ([place]) RDW SD 57.7(H) 35.7 - 48.1 fL [facility] ([place]) NRBC abs 0.00 0.00 - 0.01 K/cumm [facility] ([place]) Blood 02/22/2024 2:43 AM CDT 02/22/2024 3:04 AM CDT us Josef Ramirez Jr., MD LAB BLOOD ORDERABLE S Final Result [facility] ([place]) [address] [facility] [employer] [address] * Phosphorus (02/22/2024 2:43 AM CDT) Phosphorus, pl 4.0 2.3 - 4.5 mg/dL Blood 02/22/2024 2:43 AM CDT 02/22/2024 3:06 AM CDT us Josef Ramirez Jr., MD LAB BLOOD ORDERABLE S Final Result [facility] ([place]) [address] [facility] [employer] [place] [address] * Magnesium (02/22/2024 2:43 AM CDT) Magnesium 2.1 1.4 - 2.5 mg/dL Blood 02/22/2024 2:43 AM CDT 02/22/2024 3:06 AM CDT us Josef Ramirez Jr., MD LAB BLOOD ORDERABLE S Final Result [facility] ([place]) 1 [facility] [place] [address] * (ABNORMAL) Comprehensive metabolic panel (02/22/2024 2:43 AM CDT) Sodium 136 135 - 145 mmol/L Potassium, pl 3.8 3.3 - 4.9 mmol/L [facility] ([place]) Chloride 94(L) 97 - 110 mmol/L [facility] ([place]) CO2 38(H) 22 - 32 mmol/L [facility] ([place]) Anion gap 5 2 - 15 mmol/L [facility] ([place]) BUN 5(L) 6 - 25 mg/dL [facility] ([place]) Creatinine 0.46(L) 0.60 - 1.10 mg/dL [facility] ([place]) Glucose 103 70 - 199 mg/dL [facility] ([place]) Comment: Interpretive Data Fasting glucose >/= 126 mg/dl is diagnostic for diabetes. ?? Fasting is defined as no caloric intake for at least 8 hours. Fasting glucose between 100 mg/dl to 125 mg/dl is diagnostic of prediabetes. In a patient with classic symptoms of hyperglycemia or hyperglycemic crisis, a random glucose >/= 200 mg/dl is diagnostic for diabetes. In the absence of unequivocal hyperglycemia, results should be confirmed by repeat testing. The classification and Diagnosis of Diabetes Diabetes Care 202; 46: S19-S40. Current interpretive data was last revised 2022. Calcium 8.9 8.5 - 10.3 mg/dL [facility] ([place]) Bilirubin, total <0.2 0.1 - 1.2 mg/dL [facility] ([place]) Protein, pl 5.3(L) 6.5 - 8.5 g/dL [facility] ([place]) Albumin 2.6(L) 3.5 - 5.0 g/dL [facility] ([place]) Alk phos 79 40 - 130 Units/L [facility] ([place]) ALT 22 7 - 45 Units/L [facility] ([place]) AST 15 10 - 45 Units/L [facility] ([place]) Blood 02/22/2024 2:43 AM CDT 02/22/2024 3:06 AM CDT us Josef Ramirez Jr., MD LAB BLOOD ORDERABLE S Final Result [facility] ([place]) [address] [facility] [place] [address] * US Guided Aspiration or Injection of Major Joint (02/21/2024 9:56 AM CDT) Anatomical Region Laterality Modality Entire body N/A Ultrasound 02/21/2024 10:4 8 AM CDT Narrative 02/21/2024 10:58 AM CDT EXAMINATION: ?? Right popliteal bursal cyst/Moseley's cyst aspiration under ??ultrasound ?? guidance HISTORY: Right knee pain with swelling and elevated inflammatory markers. ?? Aspiration is requested for diagnosis. ATTENDING PRESENCE: Dr. Ahsan Dinh M.D., the attending radiologist, was present from the beginning to the end of the procedure. SEDATION: The patient did not require conscious sedation for the procedure. TECHNIQUE: The risks, benefits and alternatives were discussed and informed consent was obtained. ??Prior to beginning the procedure, universal Protocol was performed to confirm the patient's identity and the planned procedure. Sterile barriers used during the procedure included cap, mask, hand hygiene, sterile gloves, and sterile drape. ??Chloraprep was used for cutaneous antisepsis. The patient was placed supine on the ??fluoroscopy ??table. ??The right popliteal fossa cyst/Moseley's cyst was localized with ??ultrasound ??guidance. ??Local anesthesia was achieved with subcutaneous injection of 1% lidocaine 2 mL. ??An 18 gauge needle was then introduced into the cyst under ??ultrasound ??guidance. 5 mL of fluid was aspirated. ??The needle was removed. The skin was cleansed with hydrogen peroxide, and a bandage was placed. There were no complications of the procedure. ?? ESTIMATED BLOOD LOSS: None CONDITION: Stable condition. DISCHARGED TO: Patient care division FINDINGS: Sonographic ??images confirm intra bursal position of the needle tip with subsequent decompression. IMPRESSION: 1. ??Left popliteal fossa cyst/Moseley's cyst aspiration under ??ultrasound ?? guidance. ?? THIS IS AN ELECTRONICALLY VERIFIED FINAL REPORT 02/21/2024 10:58 AM - Electronically signed by ??Ahsan Dinh M.D. MF: [email or web address] D: ??02/21/2024 10:58 AM T: ??02/21/2024 10:58 AM Report ID: [id number] Reading Location: ??[id number] Procedure Note Ahsan Dinh MD - 02/21/2024 EXAMINATION: Right popliteal bursal cyst/Moseley's cyst aspiration under ultrasound guidance HISTORY: Right knee pain with swelling and elevated inflammatory markers. Aspiration is requested for diagnosis. ATTENDING PRESENCE: Dr. Ahsan Dinh M.D., the attendingradiologist, was present from the beginning to the end of the procedure. SEDATION: The patient did not require conscious sedation for theprocedure. TECHNIQUE: The risks, benefits and alternatives were discussed andinformed consent was obtained. Prior to beginning the procedure, universalProtocol was performed to confirm the patient's identity and the plannedprocedure. Sterile barriers used during the procedure included cap, mask, handhygiene, sterile gloves, and sterile drape. Chloraprep was used for cutaneous antisepsis. The patient was placed supine on the fluoroscopy table. The rightpopliteal fossa cyst/Moseley's cyst was localized with ultrasound guidance. Local anesthesia was achieved with subcutaneous injection of 1% lidocaine 2 mL.An 18 gauge needle was then introduced into the cyst under ultrasoundguidance. 5 mL of fluid was aspirated. The needle was removed. The skin wascleansed with hydrogen peroxide, and a bandage was placed. There were no complications of the procedure. ESTIMATED BLOOD LOSS: None CONDITION: Stable condition. DISCHARGED TO: Patient care division FINDINGS: Sonographic images confirm intra bursal position of the needle tip with subsequent decompression. IMPRESSION: 1. Left popliteal fossa cyst/Moseley's cyst aspiration under ultrasound guidance. THIS IS AN ELECTRONICALLY VERIFIED FINAL REPORT 02/21/2024 10:58 AM - Electronically signed by Ahsan Dinh M.D. MF: [email or web address] Report ID: [id number] Reading Location: [id number] us Josef Ramirez Jr., MD IMG US PROCEDURES F inal Result * Crystal Analysis, Body Fluid (02/21/2024 9:50 AM CDT) Specimen type, fld Synovial Body site, fld Right knee [facility] ([facility]) Crystals None Seen [facility] ([place]) Fluid 02/21/2024 9:50 AM CDT 02/21/2024 10:02 AM CDT Narrative [facility] ([place]) - 02/21/2024 10:51 AM CDT Specify:->Right knee aspiration us Josef Ramirez Jr., MD LAB BODY FLUIDS AND STOOLS ORDERABLES Final Result [facility] ([place]) [address] [facility] Department [place] [address] * Aerobic and anaerobic culture and gram stain Aspirate Knee, right (02/21/2024 9:50 AM CDT) Direct Specimen Exam Stain: No polymorphonuclear leukocytes seen. No organisms seen. Comment:Testing performed by : [facility], [address] [facility] [place] [address] Report Final Report: No growth [facility] ([place]) Comment:Testing performed by : [facility], [address] [place]., [address] Aspirate (Knee, right) 02/21/2024 9:50 AM CDT 02/21/2024 12:16 PM CDT Narrative [facility] ([place]) - 02/26/2024 11:49 AM CDT Testing performed by [facility] ([phone]) Specimens submitted from normally sterile body sites will have all bacterial morphotypes identified. Specimens that contain grossly mixed christine and/or are from body sites that are not normally sterile will be examined for Staphylococcus aureus, Pseudomonas aeruginosa, beta-hemolytic strep, vancomycin-resistant Enterococcus, Bacteroides, Parabacteroides, Clostridium perfringens and fungus. If any of these are isolated, the organism will be reported. Current interpretive data was last revised on 2020. us Josef Ramirez Jr., MD LAB MICROBIOLOGY - GENERAL ORDERABLES Final Result [facility] [place]) 1 [facility] [place] [address] * eGFR (02/21/2024 3:37 AM CDT) eGFR >90 >=60 mL/min/1. 73 m2 Comment: Interpretive Data Reference Interval Normal ?>/= 90 mL/min/1.73m2 Mildly decreased* ? 60 - 89 mL/min/1.73m2 Mildly to moderately decreased ?45 - 59 mL/min/1.73m2 Moderately to severely decreased ??30 - 44 mL/min/1.73m2 Severely decreased ?15 - 29 mL/min/1.73m2 Kidney Failure ?< 15 ??mL/min/1.73m2 *Relative to young adult level Estimated glomerular filtration rate is determined by the 2020 CKD-EPI equation recommended by the National Kidney Foundation (A Unifying Approach to GFR Estimation: Recommendations of the NKF-ASK Task Force on Reassessing the Inclusion of Race in Diagnosing Kidney Disease, JASN 2020). The CKD-EPI equation should not be used for patients with unstable renal function and has not been validated in children and those over 70. Current interpretive data was last reviewed 2021. Blood 02/21/2024 3:37 AM CDT 02/21/2024 4:04 AM CDT us Josef Ramirez Jr., MD LAB BLOOD ORDERABLE S Final Result [facility] ([place]) 1 [facility] [place] [address] * Differential, auto (02/21/2024 3:37 AM CDT) Neutrophil abs 4.3 1.5 - 6.5 K/cumm Imm gran abs 0.0 0.0 - 0.1 K/cumm [facility] ([place]) Lymphocyte abs 2.0 0.8 - 3.3 K/cumm [facility] ([place]) Monocyte abs 0.2 0.2 - 0.8 K/cumm [facility] ([place]) Eosinophil abs 0.1 0.0 - 0.5 K/cumm [facility] ([place]) Basophil abs 0.0 0.0 - 0.1 K/cumm [facility] ([place]) Neutrophil pct 64.3 % [facility] ([place]) Comment: Interpretive Data Percent cell count reference ranges are not reported, since discordance with absolute values may lead to misinterpretation of CBC data. Current Interpretive Data was last revised on 2018. Imm gran pct 0.5 % [facility] ([place]) Comment: Interpretive Data Percent cell count reference ranges are not reported, since discordance with absolute values may lead to misinterpretation of CBC data. Current Interpretive Data was last revised on 2018. Lymphocyte pct 30.6 % [facility] ([place]) Comment: Interpretive Data Percent cell count reference ranges are not reported, since discordance with absolute values may lead to misinterpretation of CBC data. Current Interpretive Data was last revised on 2018. Monocyte pct 2.4 % [facility] ([place]) Comment: Interpretive Data Percent cell count reference ranges are not reported, since discordance with absolute values may lead to misinterpretation of CBC data. Current Interpretive Data was last revised on 2018. Eosinophil pct 1.7 % [facility] ([place]) Comment: Interpretive Data Percent cell count reference ranges are not reported, since discordance with absolute values may lead to misinterpretation of CBC data. Current Interpretive Data was last revised on 2018. Basophil pct 0.5 % [facility] ([place]) Comment: Interpretive Data Percent cell count reference ranges are not reported, since discordance with absolute values may lead to misinterpretation of CBC data. Current Interpretive Data was last revised on 2018. Blood 02/21/2024 3:37 AM CDT 02/21/2024 4:04 AM CDT us Josef Ramirez Jr., MD LAB BLOOD ORDERABLE S Final Result [facility] ([place]) 1 [facility] [place] [address] * (ABNORMAL) CBC with auto differential (02/21/2024 3:37 AM CDT) WBC 6.7 3.8 - 9.9 K/cumm Hgb 9.2(L) 11.9 - 15.5 g/dL [facility] ([place]) Hct 29.9(L) 35.6 - 45.5 % [facility] ([place]) Plt 428(H) 150 - 400 K/cumm [facility] ([place]) MPV 8.0(L) 9.1 - 12.3 fL [facility] ([place]) RBC 3.12(L) 3.90 - 5.20 M/cumm [facility] ([place]) MCV 95.8 81.3 - 96.4 fL [facility] ([place]) MCH 29.5 27.1 - 33.3 pg [facility] ([place]) MCHC 30.8(L) 32.3 - 35.7 g/dL [facility] ([place]) RDW CV 16.9(H) 11.1 - 14.9 % [facility] ([place]) RDW SD 59.7(H) 35.7 - 48.1 fL [facility] ([place]) NRBC abs 0.00 0.00 - 0.01 K/cumm [facility] ([place]) Blood 02/21/2024 3:37 AM CDT 02/21/2024 4:04 AM CDT Josef Ramirez Jr., MD LAB BLOOD ORDERABLE S Final Result Performing Organization Address [facility] Co de Phone Number [facility] ([place]) 1 [facility] [place] [address] * Phosphorus (02/21/2024 3:37 AM CDT) Pathologist [facility] Phosphorus, pl 3.3 2.3 - 4.5 mg/dL Blood 02/21/2024 3:37 AM CDT 02/21/2024 4:04 AM CDT Josef Ramirez Jr., MD LAB BLOOD ORDERABLE S Final Result Performing Organization Address [facility] Co de Phone Number [facility] ([place]) 1 [facility] [place] [address] * Magnesium (02/21/2024 3:37 AM CDT) [facility] Magnesium 2.0 1.4 - 2.5 mg/dL Blood 02/21/2024 3:37 AM CDT 02/21/2024 4:04 AM CDT Josef Ramirez Jr., MD LAB BLOOD ORDERABLE S Final Result Performing Organization Address [facility] Co de Phone Number [facility] ([place]) [address] [place] [address] * (ABNORMAL) Comprehensive metabolic panel (02/21/2024 3:37 AM CDT) [facility] Sodium 139 135 - 145 mmol/L Potassium, pl 4.0 3.3 - 4.9 mmol/L [facility] ([place]) Chloride 97 97 - 110 mmol/L [facility] ([place]) CO2 36(H) 22 - 32 mmol/L [facility] ([place]) Anion gap 7 2 - 15 mmol/L [facility] ([place]) BUN 5(L) 6 - 25 mg/dL [facility] ([place]) Creatinine 0.49(L) 0.60 - 1.10 mg/dL [facility] ([place]) Glucose 117 70 - 199 mg/dL [facility] ([place]) Comment: Interpretive Data Fasting glucose >/= 126 mg/dl is diagnostic for diabetes. ?? Fasting is defined as no caloric intake for at least 8 hours. Fasting glucose between 100 mg/dl to 125 mg/dl is diagnostic of prediabetes. In a patient with classic symptoms of hyperglycemia or hyperglycemic crisis, a random glucose >/= 200 mg/dl is diagnostic for diabetes. In the absence of unequivocal hyperglycemia, results should be confirmed by repeat testing. The classification and Diagnosis of Diabetes Diabetes Care 2021; 46: S19-S40. Current interpretive data was last revised 2022. Calcium 9.1 8.5 - 10.3 mg/dL [facility] ([place]) Bilirubin, total <0.2 0.1 - 1.2 mg/dL [facility] ([place]) Protein, pl 5.4(L) 6.5 - 8.5 g/dL [facility] ([place]) Albumin 2.5(L) 3.5 - 5.0 g/dL [facility] ([place]) Alk phos 89 40 - 130 Units/L [facility] ([place]) ALT 26 7 - 45 Units/L [facility] ([place]) AST 19 10 - 45 Units/L [facility] ([place]) Blood 02/21/2024 3:37 AM CDT 02/21/2024 4:04 AM CDT us Josef Ramirez Jr., MD LAB BLOOD ORDERABLE S Final Result [facility] ([place]) [address] [facility] [place] [address] * US Lower Extremity Right Limited (02/20/2024 3:06 PM CDT) Anatomical Region Laterality Modality Lower Extremities Right Ultrasound 02/20/2024 3:47 PM CDT Narrative 02/20/2024 3:48 PM CDT EXAM DESCRIPTION: ?? US LOWER EXTREMITY RIGHT LIMITED REASON FOR STUDY: Pain TECHNIQUE: A Dynamic assessment was performed of the right lower extremity by the microwave radio technician, with selected grayscale and color Doppler images acquired and recorded in PACS. COMPARISON: ??No prior studies are available for comparison at time of this dictation. FINDINGS: There is a fluid collection within the popliteal fossa which appears anechoic. This measures 3.0 x 5.5 x 0.9 cm. ??This is compatible with a popliteal cyst. IMPRESSION: ??Popliteal cyst measuring 3.0 x 5.5 x 0.9 cm. THIS IS AN ELECTRONICALLY VERIFIED FINAL REPORT 02/20/2024 3:48 PM - Electronically signed by ??Jonn Lopez M.D. MM: MM D: ??02/20/2024 3:48 PM T: ??02/20/2024 3:48 PM Report ID: [id number] Reading Location: ??[id number] Procedure Note Jonn Lopez MD - 02/20/2024 EXAM DESCRIPTION: US LOWER EXTREMITY RIGHT LIMITED REASON FOR STUDY: Pain TECHNIQUE: A Dynamic assessment was performed of the right lower extremityby the microwave radio technician, with selected grayscale and color Doppler images acquiredand recorded in PACS. COMPARISON: No prior studies are available for comparison at time of this dictation. FINDINGS: There is a fluid collection within the popliteal fossa which appearsanechoic. This measures 3.0 x 5.5 x 0.9 cm. This is compatible with a poplitealcyst. IMPRESSION: Popliteal cyst measuring 3.0 x 5.5 x 0.9 cm. THIS IS AN ELECTRONICALLY VERIFIED FINAL REPORT 02/20/2024 3:48 PM - Electronically signed by Jonn Lopez M.D. MM: MM Report ID: [id number] Reading Location: [id number] Josef Ramirez Jr., MD IMG US PROCEDURES F inal Result * XR Knee Right 3 Views (02/20/2024 1:36 PM CDT) Anatomical Region Laterality Modality Lower Extremities, Knee Right Computed Radiography 02/20/2024 3:44 PM CDT Narrative 02/20/2024 3:47 PM CDT EXAM DESCRIPTION: XR KNEE RIGHT 3 VIEWS REASON FOR STUDY: pain ?? TECHNIQUE: 3 ??radiographic view(s) of the ??right knee . COMPARISON: No prior studies are available for comparison at time of this dictation. FINDINGS: BONES/JOINTS: There is no acute fracture, malalignment or osseous abnormality. The joint spaces are normal. SOFT TISSUES: Mild nonspecific soft tissue swelling of the knee. IMPRESSION: No acute osseous abnormality. THIS IS AN ELECTRONICALLY VERIFIED FINAL REPORT 02/20/2024 3:47 PM - Electronically signed by ??Jonn Lopez M.D. MM: MM D: ??02/20/2024 3:47 PM T: ??02/20/2024 3:47 PM Report ID: [id number] Reading Location: ??[id number] Procedure Note Jonn Lopez MD - 02/20/2024 EXAM DESCRIPTION: XR KNEE RIGHT 3 VIEWS REASON FOR STUDY: pain TECHNIQUE: 3 radiographic view(s) of the right knee . COMPARISON: No prior studies are available for comparison at time of this dictation. FINDINGS: BONES/JOINTS: There is no acute fracture, malalignment or osseousabnormality. The joint spaces are normal. SOFT TISSUES: Mild nonspecific soft tissue swelling of the knee. IMPRESSION: No acute osseous abnormality. THIS IS AN ELECTRONICALLY VERIFIED FINAL REPORT 02/20/2024 3:47 PM - Electronically signed by Jonn Lopez M.D. MM: MM Report ID: [id number] Reading Location: [id number] Josef Ramirez Jr., MD IM XR PROCEDURES F inal Result * Uric acid (02/20/2024 2:53 AM CDT) Uric acid 3.6 2.5 - 7.0 mg/dL Blood 02/20/2024 2:53 AM CDT 02/20/2024 9:27 AM CDT us Josef Ramirez Jr., MD LAB BLOOD ORDERABLE S Final Result Performing Organization Address City/State/[facility] Co de Phone Number [facility] [place]) [address] [facility] [place] [address] * eGFR (02/20/2024 2:53 AM CDT) eGFR 101 mL/min/1. 73 m2 Comment: Interpretive Data Reference Interval Normal ?>/= 90 mL/min/1.73m2 Mildly decreased* ? 60 - 89 mL/min/1.73m2 Mildly to moderately decreased ?45 - 59 mL/min/1.73m2 Moderately to severely decreased ??30 - 44 mL/min/1.73m2 Severely decreased ?15 - 29 mL/min/1.73m2 Kidney Failure ?< 15 ??mL/min/1.73m2 *Relative to young adult level Estimated glomerular filtration rate is determined by the 2020 CKD-EPI equation recommended by the National Kidney Foundation (A Unifying Approach to GFR Estimation: Recommendations of the NKF-ASK Task Force on Reassessing the Inclusion of Race in Diagnosing Kidney Disease, JASN 2020). The CKD-EPI equation should not be used for patients with unstable renal function and has not been validated in children and those over 70. Current interpretive data was last reviewed 2021. Blood 02/20/2024 2:53 AM CDT 02/20/2024 3:47 AM CDT us Josef Ramirez Jr., MD LAB BLOOD ORDERABLE S Final Result [facility] 1 [facility] Department [place] [address] * Differential, auto (02/20/2024 2:53 AM CDT) Neutrophil abs 5.0 1.5 - 6.5 K/cumm Imm gran abs 0.0 0.0 - 0.1 K/cumm [facility]) Lymphocyte abs 2.7 0.8 - 3.3 K/cumm [facility] ([place]) Monocyte abs 0.2 0.2 - 0.8 K/cumm [facility] ([place]) Eosinophil abs 0.1 0.0 - 0.5 K/cumm [facility] ([place]) Basophil abs 0.0 0.0 - 0.1 K/cumm [facility] ([place]) Neutrophil pct 62.1 % [facility] ([place]) Comment: Interpretive Data Percent cell count reference ranges are not reported, since discordance with absolute values may lead to misinterpretation of CBC data. Current Interpretive Data was last revised on 2018. Imm gran pct 0.4 % [facility] ([place]) Comment: Interpretive Data Percent cell count reference ranges are not reported, since discordance with absolute values may lead to misinterpretation of CBC data. Current Interpretive Data was last revised on 2018. Lymphocyte pct 33.7 % [facility] ([place]) Comment: Interpretive Data Percent cell count reference ranges are not reported, since discordance with absolute values may lead to misinterpretation of CBC data. Current Interpretive Data was last revised on 2018. Monocyte pct 2.6 % [facility] ([place]) Comment: Interpretive Data Percent cell count reference ranges are not reported, since discordance with absolute values may lead to misinterpretation of CBC data. Current Interpretive Data was last revised on 2018. Eosinophil pct 0.8 % [facility] ([place]) Comment: Interpretive Data Percent cell count reference ranges are not reported, since discordance with absolute values may lead to misinterpretation of CBC data. Current Interpretive Data was last revised on 2018. Basophil pct 0.4 % [facility] ([place]) Comment: Interpretive Data Percent cell count reference ranges are not reported, since discordance with absolute values may lead to misinterpretation of CBC data. Current Interpretive Data was last revised on 2018. Blood 02/20/2024 2:53 AM CDT 02/20/2024 3:47 AM CDT us Josef Ramirez Jr., MD LAB BLOOD ORDERABLE S Final Result [facility] ([place]) 1 [facility] Department [place] [address] * (ABNORMAL) CBC with auto differential (02/20/2024 2:53 AM CDT) WBC 8.0 3.8 - 9.9 K/cumm Hgb 9.2(L) 11.9 - 15.5 g/dL [facility] ([place]) Hct 29.9(L) 35.6 - 45.5 % [facility] ([place]) Plt 438(H) 150 - 400 K/cumm [facility] ([place]) MPV 8.3(L) 9.1 - 12.3 fL [facility] ([place] RBC 3.12(L) 3.90 - 5.20 M/cumm [facility] ([place]) MCV 95.8 81.3 - 96.4 fL [facility] ([place] MCH 29.5 27.1 - 33.3 pg [facility] ([place]) MCHC 30.8(L) 32.3 - 35.7 g/dL [facility] ([place]) RDW CV 16.9(H) 11.1 - 14.9 % [facility] ([place]) RDW SD 59.1(H) 35.7 - 48.1 fL [facility] ([place]) NRBC abs 0.00 0.00 - 0.01 K/cumm [facility] ([place]) Blood 02/20/2024 2:53 AM CDT 02/20/2024 3:47 AM CDT us Josef Ramirez Jr., MD LAB BLOOD ORDERABLE S Final Result [facility] [address] [place] [address] * Phosphorus (02/20/2024 2:53 AM CDT) Phosphorus, pl 3.0 2.3 - 4.5 mg/dL Blood 02/20/2024 2:53 AM CDT 02/20/2024 3:47 AM CDT us Josef Ramirez Jr., MD LAB BLOOD ORDERABLE S Final Result Performing Organization Address City/[facility] Co de Phone Number [facility] [address] [place] [address] * Magnesium (02/20/2024 2:53 AM CDT) Pathologist [facility] Magnesium 1.9 1.4 - 2.5 mg/dL Blood 02/20/2024 2:53 AM CDT 02/20/2024 3:47 AM CDT us Josef Ramirez Jr., MD LAB BLOOD ORDERABLE S Final Result Performing Organization Address City/[facility]/ZIP Co de Phone Number [facility] [address] [place] [address] * (ABNORMAL) Comprehensive metabolic panel (02/20/2024 2:53 AM CDT) Sodium 141 135 - 145 mmol/L Potassium, pl 3.9 3.3 - 4.9 mmol/L [facility] ([place]) Chloride 101 97 - 110 mmol/L [facility] ([place]) CO2 34(H) 22 - 32 mmol/L [facility] ([place]) Anion gap 6 2 - 15 mmol/L [facility] ([place]) BUN 8 6 - 25 mg/dL [facility] ([place]) Creatinine 0.47(L) 0.60 - 1.10 mg/dL [facility] ([place]) Glucose 85 70 - 199 mg/dL [facility] ([place]) Comment: Interpretive Data Fasting glucose >/= 126 mg/dl is diagnostic for diabetes. ?? Fasting is defined as no caloric intake for at least 8 hours. Fasting glucose between 100 mg/dl to 125 mg/dl is diagnostic of prediabetes. In a patient with classic symptoms of hyperglycemia or hyperglycemic crisis, a random glucose >/= 200 mg/dl is diagnostic for diabetes. In the absence of unequivocal hyperglycemia, results should be confirmed by repeat testing. The classification and Diagnosis of Diabetes Diabetes Care 202; 46: S19-S40. Current interpretive data was last revised 2022. Calcium 9.3 8.5 - 10.3 mg/dL [facility] ([place]) Bilirubin, total <0.2 0.1 - 1.2 mg/dL [facility] ([place]) Protein, pl 5.3(L) 6.5 - 8.5 g/dL [facility] ([place]) Albumin 2.5(L) 3.5 - 5.0 g/dL [facility] ([place]) Alk phos 94 40 - 130 Units/L [facility] ([place] ALT 30 7 - 45 Units/L [facility] AST 30 10 - 45 Units/L [facility] ([place]) Blood 02/20/2024 2:53 AM CDT 02/20/2024 3:47 AM CDT Josef Ramirez Jr., MD LAB BLOOD ORDERABLE S Final Result [facility] Department [place] [address] * (ABNORMAL) Erythrocyte sedimentation rate (02/19/2024 2:38 PM CDT) Erythrocyte sedimentation rate >145(H) 1 - 30 mm/hr Blood 02/19/2024 2:38 PM CDT 02/19/2024 2:50 PM CDT Narrative [facility] ([place]) - 02/19/2024 3:14 PM CDT Specimen not collected in ED. us Josef Ramirez Jr., MD LAB BLOOD ORDERABLE S Final Result Performing Organization Address City/[facility]/ZIP Co de Phone Number [facility] ([place]) [facility] Department [place] [address] * Urine culture Urine, clean voided (02/19/2024 8:07 AM CDT) Report Final Report: Less than 100,000 colonies/mL (clinically insignificant growth based on current clinical standards) Comment:Testing performed by : [facility], [address] [place] [address] Organism (CLINICALLY INSIGNIFICANT GROWTH [facility] ([place]) Urine, clean voided 02/19/2024 8:07 AM CDT 02/19/2024 10:12 AM CDT Narrative [facility] ([place]) - 02/20/2024 11:16 AM CDT Urine culture reflexed based upon urinalysis results. Testing performed by [facility] ([phone]) us [facility] MICROBIOLOGY - GENERAL O RDERABLES Final Result Performing Organization Address [facility] Co de Phone Number [facility] ([place]) 1 [facility] Department [place] [address] * (ABNORMAL) Urinalysis, microscopic only (02/19/2024 8:07 AM CDT) WBC, ur >50(A) 0 - 5 /HPF RBC, ur 6-10(A) 0 - 2 /HPF [facility] ([place]) Epithelial cells, squamous, ur 21-50(A) 0 - 5 /HPF [facility] ([place]) Comment:Suggestive of contam ination. Consider recollection by clean catch. Bacteria, ur 1+(A) [facility] ([place]) Mucous, ur Present(A) [facility] ([place]) Culture Reflex Comment Reflex to urine culture will be performed. [facility] ([place]) Urine 02/19/2024 8:07 AM CDT 02/19/2024 8:08 AM CDT [facility] URINE ORDERABLES Final R esult [facility] ([place]) 1 [facility] Department [place] [address] * (ABNORMAL) Urinalysis reflex to microscopic and culture Urine (02/19/2024 8:07 AM CDT) Color, ur Yellow Yellow Clarity, ur Turbid(A) Clear [facility] ([place]) Specific gravity, ur 1.016 1.003 - 1.030 [facility] ([place]) pH, urine 6.0 [facility] ([place]) Comment: Interpretive Data ? Urine pH is affected by diet, medications, systemic acid-base disturbances, and renal tubular function. ??pH may affect urinary stone formation. ??For example, urine pH below 6.0 may help reduce the tendency for calcium phosphate stones and pH greater than 6.0 may reduce the tendency for uric acid stone formation. Source: [facility] [employer] Current Interpretive Data was last revised on 2017 Protein, ur ql 1+(A) Negative [facility] ([place]) Glucose, ur ql Negative Negative [facility] ([place]) Ketones, ur Negative Negative [facility] ([place]) Bilirubin, ur Negative Negative [facility] ([place]) Blood, ur Trace(A) Negative [facility] ([place]) Urobilinogen, ur <2.0 <2.0 mg/dL [facility] ([place]) Nitrite, ur Negative Negative [facility] ([place]) Leukocyte esterase, ur 4+(A) Negative [facility] ([place]) UA reflex comment Reflex to microscopic UA will be performed. [facility] ([place]) Urine 02/19/2024 8:07 AM CDT 02/19/2024 8:08 AM CDT [facility] MICROBIOLOGY - GENERAL O RDERABLES Final Result Performing Organization Address [facility]/ZIP Co de Phone Number [facility] ([place] 1 [facility] [place] [address] * Procalcitonin (02/19/2024 12:19 AM CDT) Procalcitonin <0.05 <=0.08 ng/mL Comment:Testing performed by : [facility], [facility] [facility], [place]., [address] Blood 02/19/2024 12:1 9 AM CDT 02/19/2024 5:18 PM CDT us Josef Ramirez Jr., MD LAB BLOOD ORDERABLE S Final Result Performing Organization Address [facility] Co de Phone Number [facility] 1 [facility] [place] [address] * (ABNORMAL) CRP (acute phase) (02/19/2024 12:19 AM CDT) CRP 280.2(H) <=10.0 mg/L Blood 02/19/2024 12:1 9 AM CDT 02/19/2024 10:12 AM CDT us Josef Ramirez Jr., MD LAB BLOOD ORDERABLE S Final Result Performing Organization Address [facility] Co de Phone Number [facility]) 1 [facility] [place] [address] * (ABNORMAL) Troponin T high-sensitivity 6-hour (02/19/2024 12:19 AM CDT) Trop T hs 21(H) <=14 ng/L Comment: Interpretive Data For further hscTnT resources including the diagnostic algorithm and an aid in interpretation, copy and paste this link: https://nrl.testcatalog.org/show/hsTrop Current Interpretive Data last revised 2020. Trop T hs delta -1 ng/L [facility] ([place]) Trop T hs interp Insignificant [facility] ([place]) Blood 02/19/2024 12:1 9 AM CDT 02/19/2024 12:22 AM CDT Ishmael Hawkins MD LAB BLOOD ORDERABLES Final R esult Performing Organization Address City/[facility] Co de Phone Number [facility]) [address] [place] [address] * Troponin T high-sensitivity 4-hour (02/18/2024 10:35 PM CDT) Trop T hs See Comment <=14 Comment: cannot perform test due to hemolysis Interpretive Data For further hscTnT resources including the diagnostic algorithm and an aid in interpretation, copy and paste this link: https://nrl.testcatalog.org/show/hsTrop Current Interpretive Data last revised 2020. Trop T hs interp See Comment [facility] ([place]) Comment:cannot perform test due to hemolysis Blood 02/18/2024 10:3 5 PM CDT 02/18/2024 10:36 PM CDT Ishmael Hawkins MD LAB BLOOD ORDERABLES Final R esult Performing Organization Address City/[facility] Co de Phone Number [facility] ([place]) [address] [place] [id number] * Influenza A/B, RSV, and COVID-19 PCR Nasopharyngeal (02/18/2024 10:23 PM CDT) COVID-19 RNA Negative Negative Influenza A RNA Negative Negative [facility] ([place]) Influenza B RNA Negative Negative [facility] ([place]) RSV RNA Negative Negative [facility] ([place]) Comment: Interpretive data: Testing performed by [facility]. This test is performed using the [employer] Xpert Xpress CoV-2/Flu/RSV plus assay. This is a multiplex, real- time reverse transcriptase PCR assay intended for the qualitative detection of nucleic acid from SARS-CoV-2, influenza A, influenza B, and respiratory syncytial virus. This assay has been cleared by the [place] Food and Drug administration. The performance characteristics have been verified by the [facility]. ?? Results must be considered in the clinical context, and a negative result does not rule out infection. Interpretive Data last revised 2023 Nasopharyngeal 02/18/2024 10 :23 PM CDT 02/18/2024 10:25 PM CDT Narrative [facility] ([place]) - 02/18/2024 11:08 PM CDT Is the Patient experiencing symptoms consistent with COVID?->Yes us [facility] MICROBIOLOGY - GENERAL O RDERABLES Final Result [facility] ([place]) 1 [facility] [place] [address] * XR CHEST 1 VIEW PORTABLE (02/18/2024 8:39 PM CDT) Anatomical Region Laterality Modality Body, Chest N/A Computed Radiogr aphy 02/18/2024 9:06 PM CDT Narrative 02/18/2024 9:08 PM CDT EXAM DESCRIPTION: XR CHEST 1 VIEW REASON FOR STUDY: Dyspnea. ??Hypoxemia. ?Pt has right leg swelling. ??Pt states she feels like crap. ? Patient has full O2 tank, no wheelchair available w/ auto customize painter for tank ??history of COPD on oxygen and chronic tremors presents with her with complaints of progressive weakness and shortness of breath. ? TECHNIQUE: Single ??radiographic view(s) of the chest. COMPARISON: 05/30/2023, 03/29/2023 FINDINGS: LUNGS: ??Abnormal density is seen at the medial right base. ??This may represent posterior atelectasis. ??Underlying chronic lung changes are noted. ??The left lung appears better preserved. ?? HEART/MEDIASTINUM: ??Cardiac silhouette normal in size. Mediastinal and hilar contours appear normal. LINES/TUBES: ??None. BONES: ??No acute osseous abnormality. IMPRESSION: Multiple atelectasis at the left base. ??Similar findings are noted on prior CT scans from 2022.. ?? This could represent recurrent pneumonia. ??Follow-up to ensure clearing is needed. THIS IS AN ELECTRONICALLY VERIFIED FINAL REPORT 02/18/2024 9:08 PM - Electronically signed by ??Tom ALICIA: RAVIN D: ??02/18/2024 9:08 PM T: ??02/18/2024 9:08 PM Report ID: [id number] Reading Location: ??[id number] Procedure Note Tom Mora MD - 02/18/2024 EXAM DESCRIPTION: XR CHEST 1 VIEW REASON FOR STUDY: Dyspnea. Hypoxemia. Pt has right leg swelling. Pt states she feels like crap. Patienthas full O2 tank, no wheelchair available w/ auto customize painter for tank history of COPDon oxygen and chronic tremors presents with her with complaints of progressive weakness and shortness of breath. TECHNIQUE: Single radiographic view(s) of the chest. COMPARISON: 05/30/2023, 03/29/2023 FINDINGS: LUNGS: Abnormal density is seen at the medial right base. This mayrepresent posterior atelectasis. Underlying chronic lung changes are noted. Theleft lung appears better preserved. HEART/MEDIASTINUM: Cardiac silhouette normal in size. Mediastinal andhilar contours appear normal. LINES/TUBES: None. BONES: No acute osseous abnormality. IMPRESSION: Multiple atelectasis at the left base. Similar findings are noted onprior CT scans from 2022.. This could represent recurrent pneumonia. Follow-upto ensure clearing is needed. THIS IS AN ELECTRONICALLY VERIFIED FINAL REPORT 02/18/2024 9:08 PM - Electronically signed by Tom ALICIA: RAVIN Report ID: [id number] Reading Location: [id number] us Marleny Vasquez MD IMG XR PROCEDURES Final Result * eGFR (02/18/2024 6:14 PM CDT) eGFR 99 mL/min/1. 73 m2 Comment: Interpretive Data Reference Interval Normal ?>/= 90 mL/min/1.73m2 Mildly decreased* ? 60 - 89 mL/min/1.73m2 Mildly to moderately decreased ?45 - 59 mL/min/1.73m2 Moderately to severely decreased ??30 - 44 mL/min/1.73m2 Severely decreased ?15 - 29 mL/min/1.73m2 Kidney Failure ?< 15 ??mL/min/1.73m2 *Relative to young adult level Estimated glomerular filtration rate is determined by the 2020 CKD-EPI equation recommended by the National Kidney Foundation (A Unifying Approach to GFR Estimation: Recommendations of the NKF-ASK Task Force on Reassessing the Inclusion of Race in Diagnosing Kidney Disease, JASN 2020). The CKD-EPI equation should not be used for patients with unstable renal function and has not been validated in children and those over 70. Current interpretive data was last reviewed 2021. Blood 02/18/2024 6:14 PM CDT 02/18/2024 6:18 PM CDT Ishmael Hawkins MD LAB BLOOD ORDERABLES Final R esult [facility] ([place] [address] [facility] [place] [address] * (ABNORMAL) Differential, auto (02/18/2024 6:14 PM CDT) Pathologist [facility] Neutrophil abs 7.1(H) 1.5 - 6.5 K/cumm Imm gran abs 0.0 0.0 - 0.1 K/cumm [facility] ([place]) Lymphocyte abs 1.3 0.8 - 3.3 K/cumm [facility] ([place]) Monocyte abs 0.3 0.2 - 0.8 K/cumm [facility] ([place]) Eosinophil abs 0.1 0.0 - 0.5 K/cumm [facility] ([place]) Basophil abs 0.1 0.0 - 0.1 K/cumm [facility] ([place]) Neutrophil pct 80.8 % [facility] ([place]) Comment: Interpretive Data Percent cell count reference ranges are not reported, since discordance with absolute values may lead to misinterpretation of CBC data. Current Interpretive Data was last revised on 2018. Imm gran pct 0.3 % [facility] ([place]) Comment: Interpretive Data Percent cell count reference ranges are not reported, since discordance with absolute values may lead to misinterpretation of CBC data. Current Interpretive Data was last revised on 2018. Lymphocyte pct 14.7 % [facility] ([place]) Comment: Interpretive Data Percent cell count reference ranges are not reported, since discordance with absolute values may lead to misinterpretation of CBC data. Current Interpretive Data was last revised on 2018. Monocyte pct 2.8 % [facility] ([place]) Comment: Interpretive Data Percent cell count reference ranges are not reported, since discordance with absolute values may lead to misinterpretation of CBC data. Current Interpretive Data was last revised on 2018. Eosinophil pct 0.8 % [facility] ([place]) Comment: Interpretive Data Percent cell count reference ranges are not reported, since discordance with absolute values may lead to misinterpretation of CBC data. Current Interpretive Data was last revised on 2018. Basophil pct 0.6 % [facility] ([place]) Comment: Interpretive Data Percent cell count reference ranges are not reported, since discordance with absolute values may lead to misinterpretation of CBC data. Current Interpretive Data was last revised on 2018. Blood 02/18/2024 6:14 PM CDT 02/18/2024 6:18 PM CDT us Ishmael Hawkins MD LAB BLOOD ORDERABLES Final R esult [facility] ([place]) [address] [facility] [place] [address] * (ABNORMAL) Pro B-type natriuretic peptide (02/18/2024 6:14 PM CDT) NT-proBNP 2,204(H) <=300 pg/mL Comment: Interpretive Comments: A. Dyspnea in Acute Care Setting All Ages: ?< 300 pg/ml, acute heart failure unlikely. < 50 yrs: ?300 - 450 pg/ml, further investigation warranted. ? > 450 pg/ml, acute heart failure likely. 50 - 74 yrs: ? 300 - 900 pg/ml, further investigation warranted. ? > 900 pg/ml, acute heart failure likely . > or = 75 yrs: ? 450 - 1800 pg/ml, further investigation warranted. ? > 1800 pg/ml, acute heart failure likely. B. Non-acute Setting < 75 yrs ? < 125 pg/ml, rules out heart failure. ? > or = 125 pg/ml, further investigation warranted. > or = 75 yrs ?< 450 pg/ml, rules out heart failure. ? > or = 450 pg/ml, further investigation warranted. - Knowledge of each individual patient's NT-proBNP range may be more useful than using similar cut-points for every patient. Please note that marked elevations in NT-proBNP levels may be observed in state other than Left Ventricular Congestive Failure, including: acute coronary syndromes, right heart strain/failure (including pulmonary embolism and cor pulmonale), critical illness, renal failure, as well as advanced age. - References: 1. Scott MATA et.al. Eur Heart J. 2006:27:330-337. 2. Alisha RW, Ashley MENDOZA. J. AM Stephanie Cardiol: Cardiovasc Imag. 2009;2: 216- 225. Interpretive Data Last Revised Date: 2018. Blood 02/18/2024 6:14 PM CDT 02/18/2024 6:18 PM CDT Ishmael Hawkins MD LAB BLOOD ORDERABLES [facility] Performing Organization Address City/[facility]/ZIP Co de Phone Number [facility] ([place]) [address] [place] [address] * (ABNORMAL) Troponin T high-sensitivity series (baseline, 2hr, 4hr, 6hr) (02/18/2024 6:14 PM CDT) Trop T hs 22(H) <=14 ng/L Comment: Interpretive Data For further hscTnT resources including the diagnostic algorithm and an aid in interpretation, copy and paste this link: https://nrl.testcatalog.org/show/hsTrop Current Interpretive Data last revised 2020. Blood 02/18/2024 6:14 PM CDT 02/18/2024 6:18 PM CDT Ishmael Hawkins MD LAB BLOOD ORDERABLES Final [facility] Performing Organization Address City/[facility]/ZIP Co de Phone Number [facility] ([place]) [address] [place] [address] * (ABNORMAL) Comprehensive metabolic panel (02/18/2024 6:14 PM CDT) Sodium 136 135 - 145 mmol/L Potassium, pl 3.9 3.3 - 4.9 mmol/L [facility] ([place]) Chloride 97 97 - 110 mmol/L [facility] ([place]) CO2 30 22 - 32 mmol/L [facility] ([place]) Anion gap 9 2 - 15 mmol/L [facility] ([place]) BUN 6 6 - 25 mg/dL [facility] ([place]) Creatinine 0.52(L) 0.60 - 1.10 mg/dL [facility] ([place]) Glucose 132 70 - 199 mg/dL [facility] ([place]) Comment: Interpretive Data Fasting glucose >/= 126 mg/dl is diagnostic for diabetes. ?? Fasting is defined as no caloric intake for at least 8 hours. Fasting glucose between 100 mg/dl to 125 mg/dl is diagnostic of prediabetes. In a patient with classic symptoms of hyperglycemia or hyperglycemic crisis, a random glucose >/= 200 mg/dl is diagnostic for diabetes. In the absence of unequivocal hyperglycemia, results should be confirmed by repeat testing. The classification and Diagnosis of Diabetes Diabetes Care 2021; 46: S19-S40. Current interpretive data was last revised 2022. Calcium 9.3 8.5 - 10.3 mg/dL [facility] ([place]) Bilirubin, total <0.2 0.1 - 1.2 mg/dL [facility] ([place]) Protein, pl 6.3(L) 6.5 - 8.5 g/dL [facility] ([place]) Albumin 3.0(L) 3.5 - 5.0 g/dL [facility] ([place]) Alk phos 101 40 - 130 Units/L [facility] ([place]) ALT 24 7 - 45 Units/L [facility] ([place]) AST 23 10 - 45 Units/L [facility] ([place]) Blood 02/18/2024 6:14 PM CDT 02/18/2024 6:18 PM CDT Ishmael Hwakins MD LAB BLOOD ORDERABLES Final R esult [facility] 1 [facility] [place] [address] * (ABNORMAL) CBC with auto differential (02/18/2024 6:14 PM CDT) WBC 8.8 3.8 - 9.9 K/cumm Hgb 10.2(L) 11.9 - 15.5 g/dL [facility] ([place]) Hct 32.1(L) 35.6 - 45.5 % [facility] ([place]) Plt 447(H) 150 - 400 K/cumm [facility] ([place]) MPV 7.9(L) 9.1 - 12.3 fL [facility] ([place]) RBC 3.45(L) 3.90 - 5.20 M/cumm [facility] ([place]) MCV 93.0 81.3 - 96.4 fL [facility] ([place]) MCH 29.6 27.1 - 33.3 pg [facility] ([place]) MCHC 31.8(L) 32.3 - 35.7 g/dL [facility] ([place]) RDW CV 17.0(H) 11.1 - 14.9 % [facility] ([place]) RDW SD 58.1(H) 35.7 - 48.1 fL [facility] ([place]) NRBC abs 0.00 0.00 - 0.01 K/cumm [facility] ([place]) Blood 02/18/2024 6:14 PM CDT 02/18/2024 6:18 PM CDT Ishmael Hawkins MD LAB BLOOD ORDERABLES Final R esult Performing Organization Address City/[facility] Co de Phone Number PINKY PACHECO (LUZ) 1 [facility] Department [place] [address] * ECG 12 lead (02/18/2024 6:10 PM CDT) 02/18/2024 6:10 PM CDT Narrative [facility] - 02/19/2024 12:36 PM CDT Vent Rate: 79 bpm RR Interval: 759 msec LA Interval: 139 msec QRS Duration: 90 msec QT Interval: 352 msec QTC Interval: 386 msec P-R-T [place]: 36 - 9 - 7 degrees IMPRESSION: SINUS RHYTHM MINIMAL ST DEPRESSION ??[0.025+ mV ST DEPRESSION] BORDERLINE ECG NO CHANGE FROM PREVIOUS TRACING NOTED Electronically Signed By: Cruz Espinoza MD Ishmael Hawkins MD ECG ORDERABLES Final Result Performing Organization Address [facility] Co de Phone Number [facility] documented in this encounter Visit Diagnoses Diagnosis Chronic pain of right knee- Primary Pneumonia of left lower lobe due to infectious organism Dyspnea, unspecified type General weakness Other malaise and fatigue Impaired ambulation Moseley's cyst of knee, right Centrilobular emphysema (HCC) Hyperlipidemia Other and unspecified hyperlipidemia GERD without esophagitis Esophageal reflux Anxiety Anxiety state, unspecified Essential tremor Depression Depressive disorder, not elsewhere classified documented in this encounter Admitting Diagnoses Diagnosis Pneumonia of left lower lobe due to infectious organism Pneumonia due to organism Pneumonia due to other specified organism documented in this encounter Administered Medications Inactive Administered Medications - up to 3 most recent administrations Medication Order MAR Action Action Date Dose Rate Site acetaminophen (TYLENOL) tablet 650 mg 650 mg, oral, Every 4 hours PRN, 1st line for pain, fever, fever greater than 38.3 C, Starting on Sun02/19/24 at 0806, Indications: Fever, PainIndications:Fever,Pain Given 02/20/2024 9:13 AM CDT 650 mg azithromycin (ZITHROMAX) tablet 500 mg 500 mg, oral, Daily, First dose on Sun02/18/24 at 2238, Indications: COPD ExacerbationIndications:COPD Exacerbation Given 02/18/2024 10:56 PM CDT 500 mg benzocaine-menthoL (CHLORASEPTIC) lozenge 1 lozenge 1 lozenge, mouth/throat, Every 4 hours PRN, sore throat, Starting on Sun02/20/24 at 0219 Given 02/20/2024 8:29 AM CDT 1 lozenge Given 02/20/2024 3:48 AM CDT 1 lozenge benzonatate (TESSALON) capsule 100 mg 100 mg, oral, 3 times daily PRN, cough, Starting on Sun02/20/24 at 0219, Do not crush, chew, cut, dissolve, open or otherwise manipulate tablet/capsule., Indications: CoughIndications:Cough Given 02/20/2024 3:48 AM CDT 100 mg bisacodyL (DULCOLAX) suppository 10 mg 10 mg, rectal, Daily PRN, constipation, Starting on Sun02/22/24 at 2131, Indications: constipationIndications:constipation Given 02/22/2024 9:50 PM CDT 10 mg bisacodyl EC (DULCOLAX EC) tablet 10 mg 10 mg, oral, Daily PRN, constipation, If no results 24 hours after milk of magnesia, Starting on Sun02/19/24 at 1515, Do not crush, chew, cut, dissolve, open or otherwise manipulate tablet/capsule., Indications: constipationIndications:constipation Given 02/21/2024 2:46 PM CDT 10 mg budesonide-formoteroL (SYMBICORT) 160-4.5 mcg/actuation inhaler 2 puff 2 puff, inhalation, 2 times daily (incident response coordinator), First dose on Sun02/20/24 at 0930, Rinse mouth with water after use. Do not swallow. Given 02/22/2024 8:04 PM CDT 2 puffs Given 02/21/2024 8:01 PM CDT 2 puffs Given 02/20/2024 8:27 PM CDT 2 puffs BUPivacaine (MARCAINE) 0.25 % (2.5 mg/mL) preservative free injection As needed, Starting on Sun02/21/24 at 0947, Intra-Procedure (IR) Given 02/21/2024 9:47 AM CDT 0.5 mL Right Knee calcium carbonate (TUMS) chewable tablet 500 mg 500 mg (200 mg of elemental calcium), oral, Daily, First dose on Sun02/19/24 at 0900 Given 02/23/2024 9:23 AM CDT 500 mg Given 02/22/2024 8:25 AM CDT 500 mg Given 02/21/2024 8:52 AM CDT 500 mg cefTRIAXone (ROCEPHIN) 1,000 mg/10 mL in sterile water (premix) 1,000 mg 1,000 mg, intravenous, at 120 mL/hr, Administer over 5 Minutes, Every 12 hours scheduled, First dose on Sun02/18/24 at 2237, Indications: COPD ExacerbationIndications:COPD Exacerbation Given 02/19/2024 9:20 AM CDT 1,000 mg 120 mL/hr Given 02/18/2024 10:56 PM CDT 1,000 mg 120 mL/hr citalopram (CeleXA) tablet 20 mg 20 mg, oral, Daily, First dose on Sun02/19/24 at 1200 Given 02/23/2024 9:21 AM CDT 20 mg Given 02/22/2024 8:26 AM CDT 20 mg Given 02/21/2024 8:53 AM CDT 20 mg clonazePAM (KlonoPIN) tablet 1 mg 1 mg, oral, Daily, First dose on Sun02/19/24 at 0900 Given 02/22/2024 8:26 AM CDT 1 mg Given 02/21/2024 8:52 AM CDT 1 mg Given 02/20/2024 8:29 AM CDT 1 mg enoxaparin (LOVENOX) syringe 40 mg 40 mg, subcutaneous, Daily (for enoxaparin), First dose on Sun02/19/24 at 2100, Indications: Deep Vein Thrombosis PreventionIndications:Deep Vein Thrombosis Prevention Given 02/22/2024 8:49 PM CDT 40 mg Left Lower Abdomen Given 02/21/2024 8:23 PM CDT 40 mg Le ft Lower Abdomen Given 02/20/2024 8:03 PM CDT 40 mg Le ft Upper Abdomen furosemide (LASIX) tablet 10 mg 10 mg, oral, Daily, First dose on Sun02/19/24 at 0900 Given 02/23/2024 9:19 AM CDT 10 mg Given 02/22/2024 8:26 AM CDT 10 mg Given 02/21/2024 8:53 AM CDT 10 mg ipratropium (ATROVENT) 0.02 % nebulizer solution 0.5 mg 0.5 mg, nebulization, Every 6 hours (incident response coordinator), First dose on Sun02/20/24 at 0930, Given 02/23/2024 2:49 AM CDT 0.5 mg Given 02/22/2024 8:04 PM CDT 0.5 mg Given 02/22/2024 7:35 AM CDT 0.5 mg ipratropium-albuteroL (DUO-NEB) 0.5-2.5 mg/3 mL nebulizer solution 3 mL 3 mL, nebulization, Every 6 hours PRN (incident response coordinator), wheezing, shortness of breath, Starting on Sun02/18/24 at 2235, Indications: COPD ExacerbationIndications:COPD Exacerbation Lactated Ringer's (LR) infusion 100 mL/hr, intravenous, Continuous, Starting on Sun02/19/24 at 0908 New Bag 02/22/2024 4:04 AM CDT 100 mL/hr 100 mL/hr New Bag 02/21/2024 6:21 AM CDT 100 mL/hr 100 mL/hr New Bag 02/20/2024 8:49 PM CDT 100 mL/hr 100 mL/hr lidocaine (PF) (XYLOCAINE) 10 mg/mL (1 %) preservative free injection As needed, Starting on Sun02/21/24 at 0946, Intra-Procedure (IR), Indications: Administration of Local AnesthesiaIndications:Administration of Local Anesthesia Given 02/21/2024 9:46 AM CDT 0.5 mL Right Knee magnesium hydroxide (MILK OF MAGNESIA) 80 mg/mL (33.3 mg/mL as elemental magnesium) oral suspension 30 mL 30 mL, oral, Daily PRN, constipation, Starting on Sun02/19/24 at 1515 Given 02/23/2024 9:17 AM CDT 30 mL Given 02/20/2024 1:09 PM CDT 30 mL methylPREDNISolone sodium succinate (SOLU-medrol) preservative free injection 60 mg 60 mg, intravenous, Administer over 3 Minutes, Every 12 hours scheduled, First dose on Sun02/18/24 at 2236, Indications: COPD ExacerbationIndications:COPD Exacerbation Given 02/19/2024 9:16 AM CDT 60 mg Given 02/18/2024 10:56 PM CDT 60 mg mineral oil (FLEET MINERAL OIL) enema 133 mL 133 mL (1 enema), rectal, Daily PRN, constipation, if no results 24 hours after bisacodyl, Starting on Sun02/19/24 at 1515, Indications: constipationIndications:constipation ondansetron (ZOFRAN) injection 4 mg 4 mg, intravenous, Administer over 2 Minutes, Once, On Sun02/18/24 at 2302, For 1 dose Given 02/18/2024 11:03 PM CDT 4 m g ondansetron (ZOFRAN) injection 4 mg 4 mg, intravenous, Administer over 2 Minutes, Every 6 hours PRN, nausea, vomiting, if not tolerating PO, Starting on Sun02/19/24 at 0806, Indications: Nausea and VomitingIndications:Nausea and Vomiting ondansetron ODT (ZOFRAN-ODT) disintegrating tablet 4 mg 4 mg, oral, Every 6 hours PRN, nausea, vomiting, Starting on Sun02/19/24 at 0806, Indications: Nausea and VomitingIndications:Nausea and Vomiting pantoprazole DR (PROTONIX) extended release tablet 40 mg 40 mg, oral, Daily, First dose on Sun02/19/24 at 1545, Do not crush, chew, cut, dissolve, open or otherwise manipulate tablet/capsule., Indications: Treatment of Non-Bleeding Gastric DisorderIndications:Treatment of Non-Bleeding Gastric Disorder Given 02/23/2024 9:19 AM CDT 40 mg Given 02/22/2024 8:25 AM CDT 40 mg Given 02/21/2024 8:53 AM CDT 40 mg polyethylene glycol (MIRALAX) packet 17 g 17 g, oral, Daily PRN, constipation, Starting on Sun02/19/24 at 0806, Indications: constipationIndications:constipation Given 02/21/2024 8:52 AM CDT 17 g Given 02/20/2024 1:09 PM CDT 17 g Given 02/19/2024 8:46 PM CDT 17 g polyethylene glycol (MIRALAX) packet 17 g 17 g, oral, 2 times daily, First dose (after last modification) on Sun02/22/24 at 0930, Indications: constipationIndications:constipation Given 02/23/2024 9:17 AM CDT 17 g Given 02/22/2024 8:49 PM CDT 17 g Given 02/22/2024 9:30 AM CDT 17 g pramipexole (MIRAPEX) tablet 1.5 mg 1.5 mg, oral, 2 times daily, First dose on Sun02/19/24 at 1200 Given 02/23/2024 9:19 AM CDT 1.5 mg Given 02/22/2024 8:50 PM CDT 1.5 mg Given 02/22/2024 8:26 AM CDT 1.5 mg primidone (MYSOLINE) tablet 250 mg 250 mg, oral, Daily, First dose on Sun02/19/24 at 1200 Given 02/23/2024 9:21 AM CDT 250 mg Given 02/22/2024 8:26 AM CDT 250 mg Given 02/21/2024 8:52 AM CDT 250 mg propranoloL (INDERAL) tablet 40 mg 40 mg, oral, Nightly, First dose on Sun02/19/24 at 2100 Given 02/22/2024 8:50 PM CDT 40 mg Given 02/21/2024 8:23 PM CDT 40 mg Given 02/20/2024 8:04 PM CDT 40 mg propranoloL (INDERAL) tablet 80 mg 80 mg, oral, Every morning, First dose on Sun02/19/24 at 0900 Given 02/23/2024 9:22 AM CDT 80 mg Given 02/22/2024 8:25 AM CDT 80 mg Given 02/21/2024 8:52 AM CDT 80 mg rosuvastatin (CRESTOR) tablet 10 mg 10 mg, oral, Nightly, First dose on Sun02/19/24 at 2100 Given 02/22/2024 8:50 PM CDT 10 mg Given 02/21/2024 8:22 PM CDT 10 mg Given 02/20/2024 8:05 PM CDT 10 mg sodium chloride 0.9% bolus 1,000 mL 1,000 mL, intravenous, Once, On Sun02/19/24 at 0552, For 1 dose New Bag 02/19/2024 5:56 AM CDT 1,000 mL documented in this encounter Active and Recently Administered Medications Times are shown in CDT. Scheduled Medication Order 02/21/2024 02/22/2024 02/23/2024 budesonide-formoteroL (SYMBICORT) 160-4.5 mcg/actuation inhaler 2 puff 2 puff, inhalation, 2 times daily (incident response coordinator), First dose on Sun02/20/24 at 0930, Rinse mouth with water after use. Do not swallow. 0911 (Not Given - Provider: Cristi Cortes RRT - Reason: Patient not available)2000 (Given - Provider: Aydee Beckford, LEISA) 0800 (Due)2003 (Given - Provider: Aydee Beckford, LEISA) 0930 (Not Given - Provider: Lauren Concepcion, LEISA - Reason: Patient not available - Comment: pt on commode in the am and then pt was eating) calcium carbonate (TUMS) chewable tablet 500 mg 500 mg (200 mg of elemental calcium), oral, Daily, First dose on Sun02/19/24 at 0900 0852 (Given - Provider: Angelita Arreola RN) 0825 (Given - Provider: Ivania Tee RN) 0923 (Given - Provider: Moris Cruz, BORIS) citalopram (CeleXA) tablet 20 mg 20 mg, oral, Daily, First dose on Sun02/19/24 at 1200 0853 (Given - Provider: Angelita Arreola RN) 0826 (Given - Provider: Ivania Tee, BORIS) 0921 (Given - Provider: Moris Cruz, BORIS) clonazePAM (KlonoPIN) tablet 1 mg 1 mg, oral, Daily, First dose on Sun02/19/24 at 0900 0852 (Given - Provider: Angelita Arreola RN) 0826 (Given - Provider: Ivania Tee, BORIS) 0919 (Not Given - Provider: Moris Cruz RN - Reason: Patient/family refused) enoxaparin (LOVENOX) syringe 40 mg 40 mg, subcutaneous, Daily (for enoxaparin), First dose on Sun02/19/24 at 2100, Indications: Deep Vein Thrombosis Prevention 2022 (Given - Provider: Celena Meza RN) 2048 (Given - Provider: Aydee Iyer RN) furosemide (LASIX) tablet 10 mg 10 mg, oral, Daily, First dose on Sun02/19/24 at 0900 0853 (Given - Provider: Angelita Arreola RN) 0826 (Given - Provider: Ivania Tee, BORIS) 0919 (Given - Provider: Moris Cruz, BORIS) ipratropium (ATROVENT) 0.02 % nebulizer solution 0.5 mg 0.5 mg, nebulization, Every 6 hours (incident response coordinator), First dose on Sun02/20/24 at 0930, 0152 (Given - Provider: Vane Rogers, LEISA)0911 (Not Given - Provider: Cristi Cortes RRT - Reason: Patient not available)1520 (Given - Provider: Cristi Cortes RRT)2000 (Given - Provider: Aydee Beckford RRT) 0228 (Given - Provider: Vane Rogers RRT)0735 (Given - Provider: Lucinda Hsu, LEISA)1423 (Not Given - Provider: Lucinda Hsu RRT - Reason: Patient not available)2003 (Given - Provider: Aydee Beckford, APPLICATION SUPPORT LEAD) 248 (Given - Provider: Beverly Lares, APPLICATION SUPPORT LEAD)929 (Not Given - Provider: Lauren Concepcion, LEISA - Reason: Patient not available - Comment: pt on commode in the am and then pt was eating) pantoprazole DR (PROTONIX) extended release tablet 40 mg 40 mg, oral, Daily, First dose on Sun02/19/24 at 1545, Do not crush, chew, cut, dissolve, open or otherwise manipulate tablet/capsule., Indications: Treatment of Non-Bleeding Gastric Disorder 0853 (Given - Provider: Angelita Arreola RN) 824 (Given - Provider: Ivania Tee, BORIS) 09 (Given - Provider: Moris Cruz, BORIS) polyethylene glycol (MIRALAX) packet 17 g 17 g, oral, 2 times daily, First dose (after last modification) on Sun02/22/24 at 0930, Indications: constipation 929 (Given - Provider: Ivania Tee RN)2048 (Given - Provider: Aydee Iyer, BORIS) 09 (Given - Provider: Moris Cruz, BORIS) pramipexole (MIRAPEX) tablet 1.5 mg 1.5 mg, oral, 2 times daily, First dose on Sun02/19/24 at 1200 0852 (Given - Provider: Angelita Arreola RN)2021 (Given - Provider: Celena Meza, BORIS) 08 (Given - Provider: Ivania Tee RN)2049 (Given - Provider: Aydee Iyer RN) 09 (Given - Provider: Moris Cruz, BORIS) primidone (MYSOLINE) tablet 250 mg 250 mg, oral, Daily, First dose on Sun02/19/24 at 1200 0852 (Given - Provider: Angelita Arreola RN) 08 (Given - Provider: Ivania Tee, BORIS) 09 (Given - Provider: Moris Cruz, BORIS) propranoloL (INDERAL) tablet 40 mg(Linked Group 1) 40 mg, oral, Nightly, First dose on Sun02/19/24 at 2100 2023 (Given - Provider: Celena Meza RN) 2049 (Given - Provider: Aydee Iyer, BORIS) propranoloL (INDERAL) tablet 80 mg(Linked Group 1) 80 mg, oral, Every morning, First dose on Sun02/19/24 at 0900 0852 (Given - Provider: Angelita Arreola, BOIRS) 0825 (Given - Provider: Ivania Tee, BORIS) 0922 (Given - Provider: Moris Cruz RN) rosuvastatin (CRESTOR) tablet 10 mg 10 mg, oral, Nightly, First dose on Sun02/19/24 at 2100 2021 (Given - Provider: Celena Meza RN) 2049 (Given - Provider: Aydee Iyer, BORIS) Continuous Medication Order 02/21/2024 02/22/2024 02/23/2024 Lactated Ringer's (LR) infusion (CANCELED) 100 mL/hr, intravenous, Continuous, Starting on Sun02/19/24 at 0908 0621 (New Bag - Provider: Celena Meza RN) 0404 (New Bag - Provider: Celena Meza RN)1003 (Stopped - Provider: Ivania Tee, BORIS) PRN Medication Order 02/21/2024 02/22/2024 02/23/2024 acetaminophen (TYLENOL) tablet 650 mg 650 mg, oral, Every 4 hours PRN, 1st line for pain, fever, fever greater than 38.3 C, Starting on Sun02/19/24 at 0806, Indications: Fever, Pain benzocaine-menthoL (CHLORASEPTIC) lozenge 1 lozenge 1 lozenge, mouth/throat, Every 4 hours PRN, sore throat, Starting on Sun02/20/24 at 0219 benzonatate (TESSALON) capsule 100 mg 100 mg, oral, 3 times daily PRN, cough, Starting on Sun02/20/24 at 0219, Do not crush, chew, cut, dissolve, open or otherwise manipulate tablet/capsule., Indications: Cough bisacodyL (DULCOLAX) suppository 10 mg 10 mg, rectal, Daily PRN, constipation, Starting on Sun02/22/24 at 2131, Indications: constipation 2150 (Given - Provider: Aydee Iyer, BORIS) bisacodyl EC (DULCOLAX EC) tablet 10 mg 10 mg, oral, Daily PRN, constipation, If no results 24 hours after milk of magnesia, Starting on Sun02/19/24 at 1515, Do not crush, chew, cut, dissolve, open or otherwise manipulate tablet/capsule., Indications: constipation 1446 (Given - Provider: Angelita Arreola RN) BUPivacaine (MARCAINE) 0.25 % (2.5 mg/mL) preservative free injection (COMPLETED) As needed, Starting on Sun02/21/24 at 0947, Intra-Procedure (IR) 0947 (Given - Provider: Ahsan Dinh MD - Comment: Right Posterior Knee) ipratropium-albuteroL (DUO-NEB) 0.5-2.5 mg/3 mL nebulizer solution 3 mL 3 mL, nebulization, Every 6 hours PRN (incident response coordinator), wheezing, shortness of breath, Starting on Sun02/18/24 at 2235, Indications: COPD Exacerbation lidocaine (PF) (XYLOCAINE) 10 mg/mL (1 %) preservative free injection (COMPLETED) As needed, Starting on Sun02/21/24 at 0946, Intra-Procedure (IR), Indications: Administration of Local Anesthesia 0946 (Given - Provider: Ahsan Dinh MD - Comment: Right Posterior Knee) magnesium hydroxide (MILK OF MAGNESIA) 80 mg/mL (33.3 mg/mL as elemental magnesium) oral suspension 30 mL 30 mL, oral, Daily PRN, constipation, Starting on Sun02/19/24 at 1515 0917 (Given - Provider: Moris Cruz RN) mineral oil (FLEET MINERAL OIL) enema 133 mL 133 mL (1 enema), rectal, Daily PRN, constipation, if no results 24 hours after bisacodyl, Starting on Sun02/19/24 at 1515, Indications: constipation ondansetron (ZOFRAN) injection 4 mg(Linked Group 2) 4 mg, intravenous, Administer over 2 Minutes, Every 6 hours PRN, nausea, vomiting, if not tolerating PO, Starting on Sun02/19/24 at 0806, Indications: Nausea and Vomiting ondansetron ODT (ZOFRAN-ODT) disintegrating tablet 4 mg(Linked Group 2) 4 mg, oral, Every 6 hours PRN, nausea, vomiting, Starting on Sun02/19/24 at 0806, Indications: Nausea and Vomiting polyethylene glycol (MIRALAX) packet 17 g (CANCELED) 17 g, oral, Daily PRN, constipation, Starting on Sun02/19/24 at 08, Indications: constipation 0852 (Given - Provider: Angelita Arreola RN) Linked Groups Order Group 1: propranoloL (INDERAL) tablet 80 mgJump to med 80 mg, oral, Every morning, First dose on Sun02/19/24 at 0900 And propranoloL (INDERAL) tablet 40 mgJump to med 40 mg, oral, Nightly, First dose on Sun02/19/24 at 2100 Group 2: ondansetron ODT (ZOFRAN-ODT) disintegrating tablet 4 mgJump to med 4 mg, oral, Every 6 hours PRN, nausea, vomiting, Starting on Sun02/19/24 at 0806, Indications: Nausea and Vomiting Or ondansetron (ZOFRAN) injection 4 mgJump to med 4 mg, intravenous, Administer over 2 Minutes, Every 6 hours PRN, nausea, vomiting, if not tolerating PO, Starting on Sun02/19/24 at 0806, Indications: Nausea and Vomiting documented in this encounter Orders Medications Ordered That Darron ht Not Have Been Administered Count Last Ordered Date First Ordered Date benzocaine-menthoL (CHLORASE PTIC) lozenge 1 lozenge 1 02/20/2024 benzonatate (TESSALON) capsule 100 mg 1 01/2024 tiotropium bromide (SPIRIVA RESPIMAT) 2.5 mcg/actuation inhaler 2 puff 1 02/20/2024 enoxaparin (LOVENOX) syringe 40 mg 1 2023 mineral oil (FLEET MINERAL O IL) enema 133 mL 02/19/2024 ondansetron (ZOFRAN) injection 4 mg 1 02/18 ondansetron ODT (ZOFRAN-ODT) disintegrating tablet 4 mg 02/19/2024 acetaminophen (TYLENOL) tablet 650 mg 1 11/2023 ipratropium-albuteroL (DUO-N EB) 0.5-2.5 mg/3 mL nebulizer solution 3 mL 1 02/18/2024 Diet Count Last Ordered Date First Orde red Date ADULT DISCHARGE DIET 1 02/23/2024 Nursing Count Last Ordered Date First Orde red Date DISCHARGE ACTIVITY 1 02/23/2024 DISCHARGE CALL PROVIDER 8 02/23/2024 DISCHARGE INSTRUCTIONS 1 02/23/2024 FOLLOW UP WITH ESTABLISHED PROVIDER 1 02/22 CONTINUOUS PULSE OXIMETRY 1 02/18/2024 IV Count Last Ordered Date First Orde red Date SALINE LOCK IV 1 02/18/2024 Admission Count Last Ordered Date First Orde red Date ADMIT TO INPATIENT 1 02/19/2024 Discharge Count Last Ordered Date First Orde red Date DISCHARGE PATIENT 1 02/23/2024 ADT Patient Update Count Last Ordered Date Firs t Ordered Date UPDATE LEVEL OF CARE/SERVICE 1 02/19/2024 documented in this encounter Additional Health Concerns Infection Onset Date Last Indicated Resolved Time COVID: Suspected 02/18/2024 02/18/2024 02/18/2024 11:09 PM CDT documented as of this encounter Care Teams Tag Clerk Relationship Specialty Start Date End Date Lyla Perry MD PCP - General Family Medicine 01/24/18 documented as of this encounter
--- OUTSIDE RECORDS SUMMARY | 2024-11-23 15:11 | XMS_ITS | Encounter Summary ---
Author Organization [facility] Healthcare Address [address] [place] [address] Care Team Providers Care Filter Bed Placer Name Role Phone Watson Perry MD Primary Care Provider Encounter Details Date Type Department Care Team (Late st Contact Info) Description 05/30/2023 10:15 AM CDT Lab [address] [id number] Social History Tobacco Use Types Packs/Day Years [...] 03/30/2023 How often do you attend chur ch or denominational services? Never 03/30/2023 Do you belong to [...] place to sleep or slept in a detention (including now)? No 03/30/2023 Personal Safety Answer Date Recorded Have you ever been in or are you currently in a harmful physical or emotional relationship or is someone making you feel afraid or unsafe? 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 Gender Identity Not on file Sexual Orientation Not on file documented as of this encounter Plan of Treatment Not on file documented as of this encounter Procedures Procedure Name Priority Date/Time Associated Diagnosis Comments CREATININE, WHOLE BLOOD STAT 05/30/2023 10:16 AM CDT documented in this encounter Results * Creatinine, whole blood (05/30/2023 10:16 AM CDT) Creatinine, bld 0.82 0.60 - 1.30 mg/dL PINKY PACHECO ([facility]) Blood 05/30/2023 10:1 6 AM CDT 05/30/2023 10:18 AM CDT us Efren Villanueva MD LAB BLOOD ORDERABLES Final Resul t [facility]INKY PACHECO ([place]) [facility] Department [place] [address] documented in this encounter Visit Diagnoses Not on filedocumented in this encounter Care Teams Filter Bed Placer Relationship Specialty Start Date End Date Watson Perry MD PCP - General Family Medicine 01/24/18 documented as of this encounter
--- OUTSIDE RECORDS SUMMARY | 2024-11-23 15:11 | XMS_ITS | Encounter Summary ---
Author Organization [facility] Address [address] [place] [address] Care Team Providers Care Edge Cutter Name Role Phone Watson Perry MD Primary Care Provider [phone] Reason for Referral * MRI/CAT/PET Scan (Routine) - Closed Specialty Diagnoses / Procedures Referred By Contac t Referred To Contact Radiology Diagnoses Lymphadenopathy Procedures CT chest with contrast Efren Villanueva MD [address] [place] [address] DR TREVI[address]O [address] [place] [address] Phone: tel: fax: [address] [phone] Referral ID Status Reason Start Date Expiration Date Visits Re quested Visits Authorized [id number] Closed 05/11/2023 11/07/2023 1 1 Reason for Visit * MRI/CAT/PET Scan (Routine) - Closed Specialty Diagnoses / Procedures Referred By Contac t Referred To Contact Radiology Diagnoses Lymphadenopathy Procedures CT chest with contrast Efren Villanueva MD [address] [place] [address] DR TREVIÑO [address] [place] [address] Phone: tel: fax: [address] [phone] Referral ID Status Reason Start Date Expiration Date Visits Re quested Visits Authorized [id number] Closed 05/11/2023 11/07/2023 1 1 Encounter Details Date Type Department Care Team (Latest Contact Info) Description 05/30/2023 10:10 AM CDT - 05/30/2023 11:59 PM CDT Hospital Encounter [facility] [address] [place] [address] Lymphadenopathy Discharge Disposition: Discharge to home or self [...] How often do you attend chur or yazdanism services? Never 03/30/2023 Do you belong to any clubs o r organizations such as latter day groups, unions, fraternal or athletic groups, or [...] slept in a residential (including now)? No 03/30/2023 Personal Safety Answer Date Recorded Have you ever been in or are you currently in a harmful physical or emotional relationship or is someone making you feel afraid or unsafe? Denies 03/29/2023 Comments Unknown Sex and Gender Information Value Date Recorded Sex Assigned at Not on file Legal Sex Female 1:09 PM PUBLICIST Gender Identity Not on file Sexual Orientation [...] Take 1 capsule by mouth daily omega 0-afx-msk-fish oil 1,000 mg (120 mg-180 mg) capsule [...] total) by mouth nightly at bedtime. 11/16/2022 Trelegy Ellipta 200-62.5-25 mcg inhaler Inhale 1 puff daily 90 each 3 09/14/2022 3 documented as of this encounter Discharge Disposition Disposition Code Departure Means Destination Discharge to home or self care documented in this encounter Plan of Treatment Not on file documented as of this encounter Procedures Procedure Name Priority Date/Time Associated Diagnosis Comments CT CHEST W CONTRAST Schedule Routine, Read Routine (OP Routine) 05/30/2023 10:54 AM CDT Lymphadenopathy documented in this encounter Results * CT chest with contrast (05/30/2023 10:54 AM CDT) Anatomical Region Laterality Modality Body N/A Computed Tomogra phy 06/01/2023 12:1 4 PM CDT Narrative 06/01/2023 12:31 PM CDT EXAM DESCRIPTION: CT CHEST W CONTRAST REASON FOR STUDY: Lymphadenopathy. ??Follow-up on previous chest CT performed in March. TECHNIQUE: CT scan of the chest performed with intravenous contrast using helical scanning technique with dynamic intravenous contrast injection. ?? Reconstructed coronal and sagittal MPR images reviewed. All images stored on PACS. ??Automated exposure control was used as a dose optimization technique for this examination. CONTRAST TYPE/DOSE: 100 mL Optiray 350. COMPARISON: Chest CT dated 03/29/2023, 12/11/2022, 10/03/2022, 08/09/2022, 06/02/2022. REFERENCE: Per ACR white paper recommendations, unless otherwise specified no follow-up imaging is recommended for incidental renal and adrenal lesions per consensus recommendations based on imaging criteria. Further lab evaluation could be pursued based on clinical findings. FINDINGS: LUNGS: ??Areas of irregular airspace consolidation previously seen in the lower lobes have partially improved. ??In both lower lobes there are residual areas of bandlike subsegmental atelectasis, mild peribronchial consolidation, ground-glass opacities, and tree-in-bud nodularity. ??This is associated with bronchial wall thickening and patchy mucous plugging. ??Again, these findings are most pronounced on the right than on the left. ??Similar findings were previously seen in July 2022, which then resolved by November 2022. ??A solid nodule is seen in the right upper lobe posterior segment on axial image 31, measuring 11 mm. ??This nodule has slightly increased in size compared to May 2022 where it measured approximally 8 mm. ?? No significant interval change is noted compared to the most recent prior. ??A calcified granuloma is seen in close proximity. ??Patchy faint ground-glass nodules in both lungs are likely part of the multifocal infectious process that is predominantly seen in the lung bases. ??No new suspicious lung nodules are identified. ??The central airways remain patent. PLEURA: ??There is no pleural effusion or pneumothorax MEDIASTINUM/WARREN: ?? Soft tissue thickening is noted in relation to the right hilum, likely representing matted lymphadenopathy. ??Compared to the most recent prior this appears slightly decreased. ??For reference, thickness of lymphadenopathy in the right hilum on axial image 56 is approximally 11 mm compared to 14 mm on the previous study. ??Minimally enlarged lymph nodes are also noted in the left hilar chains, lower paratracheal chains, and subcarinal chains. ??These are also somewhat smaller. HEART: ??There is mild cardiomegaly. ??Moderate calcified plaques in the coronary arteries. ??No pericardial effusion. VASCULATURE: ??The thoracic aorta is atherosclerotic, but normal in caliber without aneurysm. ??The central pulmonary arteries have normal caliber. AXILLA: ??No adenopathy. CHEST WALL: ??There is a mildly prominent left axillary lymph node on axial image 17, measuring 8 mm in short axis. ?? This is slightly smaller than on the previous study where it measured 10 mm in short axis. ??Improving size is suggestive of a benign etiology. HARDWARE/LINES/TUBES: ?? None. UPPER ABDOMEN: ??Limited views of the liver demonstrate calcified granulomas and small cysts. ??Limited views of the pancreas, gallbladder, and kidneys are unremarkable. ??Unchanged thickening of the adrenal glands. ??This has been stable, and is likely secondary to adenomatous hyperplasia. ??Scattered calcified granulomas in the spleen. ??Unchanged fat containing epigastric ventral hernia. ??This is best seen on image 98. MUSCULOSKELETAL: ??Examination of bone windows demonstrates no suspicious lytic or blastic lesions. ??Mild degenerative changes in the lower thoracic spine. OTHER: ??No other significant abnormality. IMPRESSION: Improving areas of irregular airspace consolidation in the lower lobes, with residual areas of bandlike subsegmental atelectasis, mild peribronchial consolidation, ground-glass opacities, and tree-in-bud nodularity. These findings are associated with bronchial wall thickening, patchy mucous plugging, and patchy ground-glass opacities, most pronounced in the lung bases. Findings are most consistent with a multifocal infectious process, and could be secondary to chronic aspiration given its recurrent nature. ?? Solid nodule in the posterior segment of the right upper lobe, measuring 11 mm. This nodule has slightly increased in size compared to May 2022 where it measured 8 mm. No significant interval change is noted compared to the most recent prior. ??This finding is suspicious consider either tissue sampling or continued follow-up with short-term follow-up in 3-6 months according to current Fleischner society guidelines. Enlarged lymph nodes in the mediastinal and hilar chains, most pronounced in the right hilar chains, have slightly decreased in size, and are probably reactive to the infectious process in the lungs. ??However, continued attention is recommended. Other incidental findings as described above. THIS IS AN ELECTRONICALLY VERIFIED FINAL REPORT 06/01/2023 12:31 PM - Electronically signed by ??Ish Diaz M.D. RL: CASSANDRA D: ??06/01/2023 12:31 PM T: ??06/01/2023 12:31 PM Report ID: [id number] Reading Location: ??[id number] Procedure Note Ish Jacob MD - 06/01/2023 EXAM DESCRIPTION: CT CHEST W CONTRAST REASON FOR STUDY: Lymphadenopathy. Follow-up on previous chest CTperformed in March. TECHNIQUE: CT scan of the chest performed with intravenous contrast using helical scanning technique with dynamic intravenous contrast injection. Reconstructed coronal and sagittal MPR images reviewed. All images storedon PACS. Automated exposure control was used as a dose optimizationtechnique for this examination. CONTRAST TYPE/DOSE: 100 mL Optiray 350. COMPARISON: Chest CT dated 03/29/2023, 12/11/2022, 10/03/2022, 08/09/2022, 06/02/2022. REFERENCE: Per ACR white paper recommendations, unless otherwise specifiedno follow-up imaging is recommended for incidental renal and adrenal lesionsper consensus recommendations based on imaging criteria. Further labevaluation could be pursued based on clinical findings. FINDINGS: LUNGS: Areas of irregular airspace consolidation previously seen in thelower lobes have partially improved. In both lower lobes there are residualareas of bandlike subsegmental atelectasis, mild peribronchial consolidation, ground-glass opacities, and tree-in-bud nodularity. This is associatedwith bronchial wall thickening and patchy mucous plugging. Again, thesefindings are most pronounced on the right than on the left. Similar findings were previously seen in July 2022, which then resolved by November 2022. A solid nodule is seen in the right upper lobe posterior segment on axialimage 31, measuring 11 mm. This nodule has slightly increased in size comparedto May 2022 where it measured approximally 8 mm. No significant interval change is noted compared to the most recent prior. A calcified granulomais seen in close proximity. Patchy faint ground-glass nodules in both lungsare likely part of the multifocal infectious process that is predominantlyseen in the lung bases. No new suspicious lung nodules are identified. Thecentral airways remain patent. PLEURA: There is no pleural effusion or pneumothorax MEDIASTINUM/WARREN: Soft tissue thickening is noted in relation to theright hilum, likely representing matted lymphadenopathy. Compared to the most recent prior this appears slightly decreased. For reference, thickness of lymphadenopathy in the right hilum on axial image 56 is approximally 11 mm compared to 14 mm on the previous study. Minimally enlarged lymph nodesare also noted in the left hilar chains, lower paratracheal chains, andsubcarinal chains. These are also somewhat smaller. HEART: There is mild cardiomegaly. Moderate calcified plaques in the coronary arteries. No pericardial effusion. VASCULATURE: The thoracic aorta is atherosclerotic, but normal in caliber without aneurysm. The central pulmonary arteries have normal caliber. AXILLA: No adenopathy. CHEST WALL: There is a mildly prominent left axillary lymph node on axial image 17, measuring 8 mm in short axis. This is slightly smaller than onthe previous study where it measured 10 mm in short axis. Improving size is suggestive of a benign etiology. HARDWARE/LINES/TUBES: None. UPPER ABDOMEN: Limited views of the liver demonstrate calcifiedgranulomas and small cysts. Limited views of the pancreas, gallbladder, and kidneysare unremarkable. Unchanged thickening of the adrenal glands. This has been stable, and is likely secondary to adenomatous hyperplasia. Scattered calcified granulomas in the spleen. Unchanged fat containing epigastric ventral hernia. This is best seen on image 98. MUSCULOSKELETAL: Examination of bone windows demonstrates no suspiciouslytic or blastic lesions. Mild degenerative changes in the lower thoracicspine. OTHER: No other significant abnormality. IMPRESSION: Improving areas of irregular airspace consolidation in the lower lobes,with residual areas of bandlike subsegmental atelectasis, mild peribronchial consolidation, ground-glass opacities, and tree-in-bud nodularity. These findings are associated with bronchial wall thickening, patchy mucous plugging, and patchy ground-glass opacities, most pronounced in the lung bases. Findings are most consistent with a multifocal infectious process,and could be secondary to chronic aspiration given its recurrent nature. Solid nodule in the posterior segment of the right upper lobe, [id number] mm. This nodule has slightly increased in size compared to May 2022 whereit measured 8 mm. No significant interval change is noted compared to themost recent prior. This finding is suspicious consider either tissue samplingor continued follow-up with short-term follow-up in 3-6 months according to current Fleischner society guidelines. Enlarged lymph nodes in the mediastinal and hilar chains, most pronouncedin the right hilar chains, have slightly decreased in size, and are probably reactive to the infectious process in the lungs. However, continuedattention is recommended. Other incidental findings as described above. THIS IS AN ELECTRONICALLY VERIFIED FINAL REPORT 06/01/2023 12:31 PM - Electronically signed by Ish Diaz M.D. RL: CASSANDRA Report ID: [id number] Reading Location: [place] [address] Efren Villanueva MD IMG CT PROCEDURES Final Result documented in this encounter Visit Diagnoses Diagnosis Lymphadenopathy Enlargement of lymph nodes documented in this encounter Administered Medications Inactive Administered Medications - up to 3 most recent administrations Medication Order MAR Action Action Date Dose Rate Site ioversoL (OPTIRAY 350) injection 100 mL 100 mL, intravenous, Once in imaging, contrast, Starting on Sun05/30/23 at 1054, For 1 dose Contrast Given 05/30/2023 10:55 AM CDT 100 mL documented in this encounter Orders Medications Ordered That Darron ht Not Have Been Administered Count Last Ordered Date First Ordered Date ioversoL (OPTIRAY 350) injection 100 mL 1 0 05/30/2023 documented in this encounter Care Teams Edge Cutter Relationship Specialty Start Date End Date Watson Perry MD PCP - General Family Medicine 01/24/18 documented as of this encounter
--- OUTSIDE RECORDS SUMMARY | 2024-11-23 15:11 | XMS_ITS | Encounter Summary ---
Author Organization [facility] Healthcare Address [address] [place] [address] Care Team Providers Care Agriculture Laborer Name Role Phone Watson Perry MD Primary Care Provider [phone] Reason for Visit * MRI/CAT/PET Scan (Routine) - Pending Review Specialty Diagnoses / Procedures Referred By Contac t Referred To Contact Diagnoses Right knee pain Procedures MSK MR Outside Reference Chica Naik PA [address] [address] Phone: tel: fax: [facility] ([facility]) [address] [place] [address] Phone: tel: Referral ID Status Reason Start Date Expiration Date V isits Requested Visits Authorized [id number] Pending Review 10/22/2024 11/21/2025 1 1 Encounter Details Date Type Department Care Team (Latest Contact Info) Description 10/22/2024 10:26 AM CUSTOMS MANAGER - 10/22/2024 11:59 PM CUSTOMS MANAGER Hospital Encounter [facility] [address] [place] [id number] Discharge Disposition: Discharge to home or self care Social History Tobacco Use Types Packs/Day Years Used Date Smoking Tobacco: Former Cigarettes 1 50 0 05/18/1972 - 05/18/2022 Smokeless Tobacco: Never Alcohol Use Standard Drinks/Week Comments No 0 (1 standard drink = 0.6 oz pur e alcohol) [facility] Utilities Answer Date Recorded In the [...] any clubs o r organizations such as orthodoxy groups, unions, fraternal or athletic groups, or [...] place to sleep or slept in a penitentiary (including now)? No 02/20/2024 Personal Safety Answer [...] on file Legal Sex Female 1:09 PM CUSTOMS MANAGER Gender Identity Not on file Sexual [...] Take 1 capsule by mouth daily omega 9-cfs-gvl-fish oil 1,000 mg (120 mg-180 mg) capsule [...] Comments [facility] MR OUTSIDE REFERENCE Routine 10/22/2024 10:26 AM CUSTOMS MANAGER documented in this encounter Results * [facility] MR Outside Reference (10/22/2024 10:26 AM CUSTOMS MANAGER) Impressions [facility] - 10/22/2024 10:26 AM CUSTOMS MANAGER These images are for Reference purposes only and have not been reviewed by [facility] Radiology. ??There will be no report generated by a [facility] Radiologist. Narrative [facility] - 10/22/2024 10:26 AM CUSTOMS MANAGER EXAMINATION: ??Images For Reference Purposes Only us [facility]ica [facility] IMG MRI PROCEDURES Robert al Result [facility]PACS[facility] documented in this encounter Visit Diagnoses Not on filedocumented in this encounter Care Teams Agriculture Laborer Relationship Specialty Start Date End Date Watson Perry MD PCP - General Family Medicine 01/24/18 documented as of this encounter
--- OUTSIDE RECORDS SUMMARY | 2024-11-23 15:11 | XMS_ITS | Encounter Summary ---
Author Organization [facility] Healthcare Address [address] [place] [address] Care Team Providers Care Railcar Foreman Name Role Phone Watson Perry MD Primary Care Provider [phone] Encounter Details Date Type Department Care Team (Late st Contact Info) Description 09/03/2023 Telephone [facility] Medical Group Pulmonary at [address] [place] [address] Efren Villanueva MD [address] [place] [address] [address] [place] [address] Social History Tobacco Use Types Packs/Day Years [...] How often do you attend chur or lutheran services? Never 03/30/2023 Do you belong to any clubs o r organizations such as caodaism groups, unions, fraternal or athletic groups, or [...] place to sleep or slept in a retirement (including now)? No 03/30/2023 Personal Safety Answer Date Recorded Have you ever been in or are you currently in a harmful physical or emotional relationship or is someone making you feel afraid or unsafe? Denies 03/29/2023 Comments Unknown Sex and Gender Information Value Date Recorded Sex Assigned at Not on file Legal Sex Female 1:09 PM PERSONAL CARE WORKER Gender Identity Not on file Sexual Orientation Not on file documented as of this encounter Miscellaneous Notes * Telephone Encounter - Janny Cox - 09/03/2023 8:59 AM CDT FYI- pt Wilder called in today and cancelled pt appt with you for 09/06/23, he said pt is in hosp [facility] and is going to get hip replacement surgery on 09/04/23. They will c/b at later date to get r/s. documented in this encounter Plan of Treatment Not on file documented as of this encounter Visit Diagnoses Not on filedocumented in this encounter Care Teams Railcar Foreman Relationship Specialty Start Date End Date Watson Perry MD PCP - General Family Medicine 01/24/18 documented as of this encounter
--- OUTSIDE RECORDS SUMMARY | 2024-11-23 15:11 | XMS_ITS | Encounter Summary ---
Author Organization [facility] Healthcare Address [address] [place] [address] Care Team Providers Care Ethylene Plant Helper Name Role Phone Watson Perry MD Primary Care Provider [phone] Encounter Details Date Type Department Care Team (Late st Contact Info) Description 02/20/2024 Telephone [facility] Medical Group Pulmonary at [address] [place] [address] Nkechi Whitehead LPN Social History Tobacco Use Types Packs/Day Years Used Date Smoking Tobacco: Former Cigarettes 1 50 0 05/18/1972 - 05/18/2022 Smokeless Tobacco: Never Alcohol Use Standard Drinks/Week Comments No 0 (1 standard drink = 0.6 oz pur e alcohol) [facility] Utilities Answer Date Recorded In the past 12 months has [employer], gas, oil, or water [employer] threatened to shut off services in your [...] How often do you attend chur or muslim services? Never 02/20/2024 Do you belong to any clubs o r organizations such as roman catholic groups, unions, fraternal or athletic groups, or [...] place to sleep or slept in a fpc (including now)? No 02/20/2024 Personal Safety Answer [...] on file Legal Sex Female 1:09 PM TECHNICAL HEALTHCARE CONSULTANT Gender Identity Not on file Sexual Orientation Not on file documented as of this encounter Miscellaneous Notes * Telephone Encounter - Nkechi Whitehead LPN - 02/20/2024 3:24 PM CDT FYI Patient's called saying patient is in the hospital and wanted you to come see the patient. I let him know that he can ask her nurses or doctors to consult Dr. Villanueva. They don't always consult him, but I told him I would let Dr. Villanueva know she is in the hospital at [facility]. He verbalized understanding. documented in this encounter Plan of Treatment Not on file documented as of this encounter Visit Diagnoses Not on filedocumented in this encounter Care Teams Ethylene Plant Helper Relationship Specialty Start Date End Date Watson Perry MD PCP - General Family Medicine 01/24/18 documented as of this encounter
--- OUTSIDE RECORDS SUMMARY | 2024-11-23 15:11 | XMS_ITS | Encounter Summary ---
Author Organization [facility] Medical Group Address [address] [place] [address] Care Team Providers Care Director Home Name Role Phone Watson Perry MD Primary Care Provider [phone] Encounter Details Date Type Department Care Team (Late st Contact Info) Description 06/05/2023 Orders Only [facility] Medical Group Pulmonary at [address] [place] [address] Efren Villanueva MD [address] [place] [address] [address] [place] [address] Pulmonary nodule (Primary Dx) Social History Tobacco Use [...] How often do you attend chur or anglican services? Never 03/30/2023 Do you belong to any clubs o r organizations such as rastafari groups, unions, fraternal or athletic groups, or [...] place to sleep or slept in a chcf (including now)? No 03/30/2023 Personal Safety Answer Date Recorded Have you ever been in or are you currently in a harmful physical or emotional relationship or is someone making you feel afraid or unsafe? Denies 03/29/2023 Comments Unknown Sex and Gender Information Value Date Recorded Sex Assigned at Not on file Legal Sex Female 1:09 PM DIE REPAIRER TRIMMER DIES Gender Identity Not on file Sexual Orientation Not on file documented as of this encounter Plan of Treatment Not on file documented as of this encounter Visit Diagnoses Diagnosis Pulmonary nodule- Primary Other diseases of lung, not elsewhere classified documented in this encounter Care Teams Director Home Relationship Specialty Start Date End Date Watson Perry MD PCP - General Family Medicine 01/24/18 documented as of this encounter
--- OUTSIDE RECORDS SUMMARY | 2024-11-23 15:11 | XMS_ITS | Encounter Summary ---
Author Organization [facility] Address [address] [place] [address] Care Team Providers Care [place] Actor Name Role Phone Watson Perry MD Primary Care Provider [phone] Reason for Visit * Reason Onset Date Comments Portable O2 05/08/2023 Encounter Details Date Type Department Care Team (Late st Contact Info) Description 05/08/2023 Telephone [facility] Pulmonary at [address] [place] [address] Selam Chu LPN Portable O2 Social History Tobacco Use Types Packs/Day Years [...] often do you attend chur ch or sabianism services? Never 03/30/2023 Do you belong to any clubs o r organizations such as anglican groups, unions, fraternal or athletic groups, or [...] on file Legal Sex Female 1:09 PM OFFSET PRESS OPERATOR Gender Identity Not on file Sexual Orientation Not on file documented as of this encounter Miscellaneous Notes * Telephone Encounter - Selam Chu LPN - 05/09/2023 8:06 AM CDT Order for POC faxed to [facility]. * Telephone Encounter - Selam Chu LPN - 05/08/2023 11:07 AM CDT Called [facility] Waller spoke with Fartun she states she qualifies after her delivery today. Order sent for POC Message left with pt. documented in this encounter Plan of Treatment Not on file documented as of this encounter Visit Diagnoses Not on filedocumented in this encounter Care Teams [place] Actor Relationship Specialty Start Date End Date Watson Perry MD PCP - General Family Medicine 01/24/18 documented as of this encounter
--- OUTSIDE RECORDS SUMMARY | 2024-11-23 15:11 | XMS_ITS | Encounter Summary ---
Author Organization [facility] Address [address] [place] [address] Phone Care Team Providers Care Factory Maintenance Manager Name Role Phone Watson Perry MD Primary Care Provider [phone] Reason for Visit * Reason Comments Pain * Consultation (Routine) - Closed Specialty Diagnoses / Procedures Referred By Contac t Referred To Contact Orthopedic Surgery Diagnoses Primary osteoarthritis of right knee Effusion, right knee Ford Cooper MD [address] [place] [address] Phone: tel:[phone] fax: [facility] (All Locations) Referral ID Status Reason Start Date Expiration Date V isits Requested Visits Authorized [id number] Closed Specialty Services Required 09/19/2024 10/19/2025 1 1 Encounter Details Date Type Department Care Team (Latest Contact Info) Description 10/22/2024 8:45 AM CIRCUIT BREAKER SUPERVISOR Office Visit [facility] Orthopaedic Surgery [address] [place] [address] [address] [place] [address] Chica Naik PA [address] [place] [address] Right knee pain, unspecified chronicity (Primary Dx); Primary osteoarthritis of right knee Social History Tobacco Use Types Packs/Day Years Used Date Smoking Tobacco: Former Cigarettes 1 50 0 05/18/1972 - 05/18/2022 Smokeless Tobacco: Never Alcohol Use Standard Drinks/Week Comments No 0 (1 standard drink = 0.6 oz pur e alcohol) [facility] Utilities Answer Date Recorded In the [...] often do you attend chur ch or anabaptist services? Never 02/20/2024 Do you belong to any clubs o r organizations such as baptist groups, unions, fraternal or athletic groups, or [...] place to sleep or slept in a senior care (including now)? No 02/20/2024 Personal Safety Answer [...] on file Legal Sex Female 1:09 PM CIRCUIT BREAKER SUPERVISOR Gender Identity Not on file Sexual Orientation Not on file documented as of this encounter Progress Notes * Chica Naik PA - 10/22/2024 8:45 AM CST NEW PATIENT VISIT CHIEF COMPLAINT: Chief Complaint Patient presents with Right Knee - Pain HISTORY OF PRESENT ILLNESS: Janeth Parker is a 74 y.o. female with COPD on 3L O2 by ND who presents for evaluation of right knee pain. Her surgical history is significant for right knee scope for meniscus surgery 06/2024. Thepain is located global and does radiate down to the ankle. The pain started November 2023. The pain has worsened recently. There was no injury/trauma. She fractured her left hip in November and startednoticing right knee pain. She describes the pain as sharp, shooting. The pain is worse with weightbearing. The pain is improved with rest, injections, Tylenol. She is allergic to ibuprofen. She has tried bracing and PT without significant relief. She reports the PT actually worsened her pain. Her smoking status is nonsmoker, quit 5-6 years ago. She is reportedly not diabetic. She has had a coupleof Moseley's cyst aspirations. The most recent Moseley's cyst aspiration/cortisone injection was in July. The aspiration in February was negative for infection. The injections provide no relief. She reports they give her pain medication (Percocet) but it doesn't help so she doesn't take it. PATIENT QUESTIONNAIRE: No questionnaires on file. PAST MEDICAL HISTORY: Past Medical History: Diagnosis Date Cancer (CMS/HCC) (HCC) Skin BCC COPD (chronic obstructive pulmonary disease) (HCC) Deviated nasal septum Occasional tremors Hands and Head, going to see Neurologist Peptic ulceration Tachycardia PAST SURGICAL HISTORY: Past Surgical History: Procedure Laterality Date BUNIONECTOMY Right ELBOW SURGERY Right Tendonitis OTHER SURGICAL HISTORY basal cell carcinoma THUMB SURGERY Arthroplasty MEDICATIONS: Current Outpatient Medications on File Prior to Visit Medication Sig Dispense Refill albuterol HFA (PROVENTIL HFA,VENTOLIN HFA,PROAIR HFA) 90 mcg/actuation inhaler Inhale 2 puffs every6 (six) hours as needed for wheezing or shortness of breath bisacodyl EC (DULCOLAX EC) 5 mg EC tablet Take 2 tablets (10 mg total) by mouth daily as needed forconstipation (If no results 24 hours after milk of magnesia) calcium carbonate (OS-ERUM) 1,500 mg (600 mg [...] mL by mouth daily as needed (constipation) multivitamin capsule Take 1 capsule by mouth daily omega 5-idk-ggn-fish oil 1,000 mg (120 mg-180 mg) capsule [...] APPOINTMENT REQUIRED FOR FUTURE REFILLS 60 each 0 No current facility-administered medications on file prior to visit. ALLERGIES: Allergies Allergen Reactions Ibuprofen Rash SOCIAL HISTORY: Social History Tobacco Use Smoking status: Former Current packs/day: 0.00 Average packs/day: 1 pack/day for 50.0 years (50.0 ttl pk-yrs) Types: Cigarettes Start date: 05/18/1972 Quit date: 05/18/2022 Years since quittin.4 Smokeless tobacco: Never Substance and Sexual Activity Drug use: Not Currently Types: Tobacco Sexual activity: Defer Alcohol Use: Not At Risk (03/29/2023) AUDIT-C Frequency of Alcohol Consumption: Never Average Number of Drinks: Not on file Frequency of Binge Drinking: Not on file FAMILY HISTORY: Family History Problem Relation Age of Onset Cancer Mother Hypertension Father Parkinsonism Father Heart disease Paternal Grandfather Scleroderma Daughter PHYSICAL EXAMINATION: There were no vitals taken for this visit. Right Knee Exam Tenderness The patient is experiencing no tenderness. Range of Motion Right knee extension: -5. Flexion: 100 Tests Varus: negative Valgus: negative Travis: Anterior - negative Other Erythema: absent Scars: absent Sensation: normal Pulse: present Swelling: none Effusion: no effusion present Comments: No extensor lag. XRAYS/REVIEW OF STUDIES: Right knee x-ray reviewed interpreted by me shows severe lateral compartment osteoarthritis with complete loss of the joint space. No fractures noted. DIAGNOSIS: Right knee osteoarthritis ASSESSMENT/PLAN: X-ray and exam findings reviewed with the patient and her . The natural progression of osteoarthritis and treatment options were discussed. Patient reports she was referred to [facility] because of her COPD and Parkinson's. She reports her surgeon back home was not comfortable with performing a TKA because of her comorbidities. She has tried and failed conservative treatment consisting of rest, ice, bracing, PT, cortisone injections. She would like to discuss right TKA. Dr. Jaramillo's team was notified. PT/HEP: She has done physical therapy and will continue with her HEP. NSAIDS: She is allergic to NSAIDs. Tylenol: She can supplement with Tylenol as needed for pain. Topicals: She can apply a topical anti-inflammatory as needed for pain. Activity: She we will limit activity as tolerated. Follow Up: P.r.n. with me, with Dr. Jaramillo's team to discuss surgery. Chica Naik PA-C Joint Reconstructive Service [facility] Orthopedic Surgery UIT BREAKER SUPERVISOR documented in this encounter Plan of Treatment Not on file documented as of this encounter Results * XR Knee Right 4 or More Views (10/22/2024 8:56 AM CIRCUIT BREAKER SUPERVISOR) Anatomical Region Laterality Modality Lower Extremities, Knee Right Digital Radiography 10/22/2024 9:52 AM CIRCUIT BREAKER SUPERVISOR Impressions 10/22/2024 9:52 AM CIRCUIT BREAKER SUPERVISOR FINDINGS/IMPRESSION: Moderate to severe right lateral compartment arthrosis. ??No acute fracture. ??There is a small joint effusion. ??Soft tissues are unremarkable. Electronically signed by: Raffi Montes II, D.O. Narrative 10/22/2024 9:52 AM CIRCUIT BREAKER SUPERVISOR EXAMINATION: XR KNEE RIGHT 4 OR MORE [...] Electronically signed by: Raffi Montes II, D.O. us Chica [facility] IMG XR PROCEDURES Tiffanie l Result documented in this encounter Visit Diagnoses Diagnosis Right knee pain, unspecified chronicity- Primary Primary osteoarthritis of right knee Right knee pain, unspecified chronicity documented in this encounter Historical Medications * This list may reflect changes made after this encounter. traMADoL (ULTRAM) 50 mg tablet Take 1 tablet (50 mg total) by mouth every 6 (six) hours as needed for pain omega-3 fatty acids-fish oil 300-1,000 mg capsule Take 2 capsules (2 g total) by mouth daily carbidopa-levodop a CR (SINEMET CR) 25-100 mg per CR tablet Take 1 tablet by mouth 2 (two) times a day aspirin 81 mg enteric coated tablet Take 1 tablet (81 mg total) by mouth daily added in this encounter Orders Outpatient Referral Count Last Ordered Date Fir st Ordered Date AMB REFERRAL TO ORTHOPEDIC RECON HIP/KNEE 1 10/22/2024 documented in this encounter Care Teams Factory Maintenance Manager Relationship Specialty Start Date End Date Watson Perry MD PCP - General Family Medicine 01/24/18 documented as of this encounter
--- OUTSIDE RECORDS SUMMARY | 2024-11-23 15:11 | XMS_ITS | Encounter Summary ---
Author Organization [facility] Address [address] [place] [address] Care Team Providers Care Outside Installer Apprentice Name Role Phone Watson Perry MD Primary Care Provider [phone] Reason for Referral * MRI/CAT/PET Scan (Routine) - Closed Specialty Diagnoses / Procedures Referred By Contac t Referred To Contact Radiology Diagnoses Lymphadenopathy Procedures CT chest with contrast Efren Villanueva MD [address] [place] [address] [address] [place] [address] Phone: tel: fax: [address] [address] Referral ID Status Reason Start Date Expiration Date Visits Re quested Visits Authorized [id number] Closed 05/11/2023 11/07/2023 1 1 Reason for Visit * Reason Comments Hop F/U Pneumonia Encounter Details Date Type Department Care Team (Late st Contact Info) Description 05/07/2023 1:30 PM CDT Office Visit [facility] Pulmonary at [address] [place] [address] Efren Villanueva MD [address] [place] [address] [address] [place] [address] Centrilobular emphysema (HCC) (Primary Dx); Chronic respiratory failure with hypoxia and hypercapnia (CMS/HCC) (HCC); Cigarette nicotine dependence in remission; Lymphadenopathy Social History Tobacco Use Types Packs/Day [...] often do you attend chur ch or yazidi services? Never 03/30/2023 Do you belong to [...] place to sleep or slept in a snf (including now)? No 03/30/2023 Personal Safety Answer Date Recorded Have you ever been in or are you currently in a harmful physical or emotional relationship or is someone making you feel afraid or unsafe? Denies 03/29/2023 Comments Unknown Sex and Gender Information Value Date Recorded Sex Assigned at Not on file Legal Sex Female 1:09 PM OCCUPATIONAL MEDICINE SPECIALIST Gender Identity Not on file Sexual Orientation Not on file documented as of this encounter Last Filed Vital Signs Vital Sign Reading Time Taken Comments Blood Pressure 110/50 05/07/2023 1:27 PM CDT Pulse 90 05/07/2023 1:27 PM CDT Temperature 36.3 ??C (97.3 ??F) 05/07/2023 1:27 PM CD T Respiratory Rate 16 05/07/2023 1:27 PM CDT Oxygen Saturation 90% 05/07/2023 1:27 PM CDT Inhaled Oxygen Concentration - - Weight 77.8 kg (171 lb 8 oz) 05/07/2023 1:27 PM CDT Height 165.1 cm (5' 5 ) 05/07/2023 1:27 PM CDT Body Mass Index 28.54 05/07/2023 1:27 PM CDT documented in this encounter Progress Notes * Efren Villanueva MD - 05/07/2023 1:30 PM CDT Images from the original note were not included. PULMONARY CLINIC NOTE Visit Date: 05/07/2023 Chief Complaint: Presents today for Dyspnea on exertion HPI: Janeth Parker is a 73 y.o. female w/ PMH of emphysema, chronic respiratory failure with hypoxia who presents on 05/07/2023 for evaluation of dyspnea. The patient was first seen in August of 2022, at that time she reported being hospitalized in May2022 at [facility] for a week for Covid-19 pneumonia. Hospitalization was complicated by hypercapnic respiratory failure requiring bipap in the ICU. She was subsequently discharged with a new oxygen requirement. After discharge, she had started on trelegy after being on Breo previously. Interval History: She was hospitalized again for pneumonia in the interval. Since discharge she reports her breathing is almost back to baseline. She has been using oxygen tanks in his in need of a portable concentrator Exposure History: No relevant exposures. Past Medical History: Past Medical History: Diagnosis Date Cancer (CMS/HCC) (HCC) Skin BCC COPD (chronic obstructive pulmonary disease) (HCC) Deviated nasal septum Occasional tremors Hands and Head, going to see Neurologist Peptic ulceration Tachycardia Family History: Family History Problem Relation Age of Onset Cancer Mother Hypertension Father Parkinsonism Father Heart disease Paternal Grandfather Scleroderma Daughter Social History: Former smoker. Quit in April 2022. Smoked 50 years 1 ppd Review of Systems: Pertinent positives notes in HPI. Otherwise a 10 pt review of systems is negative. OBJECTIVE: Physical Exam: Vitals: 05/07/23 1327 BP: 110/50 BP Location: Left arm Patient Position: Sitting Pulse: 90 Resp: 16 Temp: 36.3 ??C (97.3 ??F) TempSrc: Temporal SpO2: 90% Weight: 77.8 kg (171 lb 8 oz) Height: 165.1 cm (5' 5 ) General: appears comfortable in no apparent distress Eyes: anicteric, no redness or drainage, EOMI Neck: no thyromegaly or lymphadenopathy Cardiovascular: regular rate and rhythm, no murmurs, no edema or JVD Respiratory: scattered wheezing, non labored Gastrointestinal: abdomen is soft and non-tender, + bowel sounds Musculoskeletal: no joint swelling or tenderness Neurologic: No focal deficits Skin: warm and dry Data Review: CT chest with PE protocol 03/29/2023: Personally reviewed and my interpretation is notable for significant area of consolidation within the right lung base. There is also significant soft tissue thickening around the airways in the right hilum. This may reflect simple inflammation/swelling or be related to worsening lymphadenopathy. This may be reactive CT chest without contrast 12/11/2022: Personally reviewed and notable for stable appearance of upper lobe ground-glass nodules and other smaller solid pulmonary nodules. There is perhaps some atelectasis or scarring seen in the right lung base that was previously clear but presents some similarity to scan from 08/09/2022. Persistence of bilateral axillary adenopathy however significant decrease in size in largest left axillary node CT chest without contrast 10/03/2022: Personally reviewed and notable for significant improvement in the right lower lobe consolidation and nodular opacities. Stable appearance of upper lobe ground-glass nodules. Background emphysematous changes. There is some prominent bilateral axillary lymphadeno joanna the largest lymph node in the left axilla measuring 2.[address] chest without contrast 08/09/2022: Personally reviewed and notable for progression of previouslyseen nodularity and consolidation within the right lower lobe. Additionally tree-in-bud nodularity within the right middle lobe and left upper lobe/lingula and left lower lobe are noted. CT chest 06/02/2022: Personally reviewed and notable for scattered tree-in-bud nodularity with multiple right lower lobe pulmonary nodules and consolidation consistent with a infectious etiology. There is background emphysema No significant peripheral eosinophilia and no erythrocytosis ECHO 06/14/2022: Normal EF. There is no evidence of significant valvular abnormality or evidence ofpulmonary hypertension Pulmonary Functions Testing Results: 10/03/2022: Personally reviewed and notable for severe obstructive ventilatory limitation with a significant positive bronchodilator response. There is severe air trapping and a mild diffusion impairment. During the patient's 6 minute walk test she ambulated 902 ft and required 2 L of supplemental oxygen to maintain saturations greater than 88%. Room air sat was 95% at rest ASSESSMENT AND PLAN 1. Centrilobular emphysema (CMS/HCC) (HCC) - continue Trelegy once daily - continue albuterol as needed - no exacerbations in the interval - we previously discussed pulmonary rehab 2. Chronic respiratory failure with hypoxia and hypercapnia (CMS/HCC) (HCC) - continue supplemental oxygen as prescribed - follow-up on portable oxygen concentrator for greater mobility - we have not discussed the use of BiPAP or noninvasive ventilation 3. Cigarette nicotine dependence in remission - will resume lung cancer screening pending below 4. Lymphadenopathy - repeat CT of the chest with contrast to follow-up previously seen consolidation and prominent right hilar adenopathy - CT chest with contrast; Future Efren Villanueva MD There may be syntax/grammatical errors in this note due to the use of voice recognition software. documented in this encounter Plan of Treatment Not on file documented as of this encounter Results * CT chest with [...] PM T: ??06/01/2023 12:31 PM Report ID: [id number] Reading Location: ??[id number] Procedure Note Ish Jacob MD - 06/01/2023 [...] posterior segment of the right upper lobe, [id number] mm. This nodule has slightly increased in [...] Ish Diaz M.D. RL: CASSANDRA Report ID: [id number] Reading Location: [place] [address] Efren Villanueva MD IMG CT PROCEDURES Final Result documented in this encounter Visit Diagnoses Diagnosis Centrilobular emphysema (HCC)- Primary Chronic respiratory failure with hypoxia and hypercapnia (CMS/HCC) (HCC) Cigarette nicotine dependence in remission Lymphadenopathy Enlargement of lymph nodes Lymphadenopathy Enlargement of lymph nodes documented in this encounter Care Teams Outside Installer Apprentice Relationship Specialty Start Date End Date Watson Perry MD PCP - General Family Medicine 01/24/18 documented as of this encounter
--- OUTSIDE RECORDS SUMMARY | 2024-11-23 15:11 | XMS_ITS | Encounter Summary ---
Author Organization [facility] Healthcare Address [address] [place] [address] Care Team Providers Care Youth Director Name Role Phone Watson Perry MD Primary Care Provider [phone] Encounter Details Date Type Department Care Team (Late st Contact Info) Description 05/29/2023 Telephone [facility] [address] [place] [address] Fartun Prado, RT Social History Tobacco Use Types Packs/Day Years [...] often do you attend chur ch or restoration services? Never 03/30/2023 Do you belong to any clubs o r organizations such as anabaptism groups, unions, fraternal or athletic groups, or [...] place to sleep or slept in a group home (including now)? No 03/30/2023 Personal Safety Answer Date Recorded Have you ever been in or are you currently in a harmful physical or emotional relationship or is someone making you feel afraid or unsafe? Denies 03/29/2023 Comments Unknown Sex and Gender Information Value Date Recorded Sex Assigned at Not on file Legal Sex Female 1:09 PM HEARING THERAPY DIRECTOR Gender Identity Not on file Sexual Orientation Not on file documented as of this encounter Miscellaneous Notes * Telephone Encounter - Fartun Prado, RT - 05/29/2023 10:19 AM CDT Confirmed appt documented in this encounter Plan of Treatment Not on file documented as of this encounter Visit Diagnoses Not on filedocumented in this encounter Care Teams Youth Director Relationship Specialty Start Date End Date Watson Perry MD PCP - General Family Medicine 01/24/18 documented as of this encounter
--- OUTSIDE RECORDS SUMMARY | 2024-11-23 15:11 | XMS_ITS | Encounter Summary ---
Author Organization [facility] Healthcare Address [address] [place] [address] Care Team Providers Care Flooring Sales Manager Name Role Phone Watson Perry MD Primary Care Provider [phone] Encounter Details Date Type Department Care Team (Latest Contact Info) Description 02/23/2024 2:31 PM CDT - 02/23/2024 11:59 PM CDT Hospital Encounter [facility]ILL[facility] Emergency, Room R Discharge Disposition: Discharge to home or self care Social History Tobacco Use Types Packs/Day Years Used Date Smoking Tobacco: Former Cigarettes 1 50 0 05/18/1972 - 05/18/2022 Smokeless Tobacco: Never Alcohol Use Standard Drinks/Week Comments No 0 (1 standard drink = 0.6 oz pur e alcohol) [facility] Utilities Answer Date Recorded In the past 12 months has [employer], [employer], oil, or water [employer] threatened to shut off services in your [...] How often do you attend chur or episcopal services? Never 02/20/2024 Do you belong to any clubs o r organizations such as lutheran groups, unions, fraternal or athletic groups, or [...] place to sleep or slept in a halfway (including now)? 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 Gender Identity Not on file Sexual [...] Take 1 capsule by mouth daily omega 9-wcn-jiq-fish oil 1,000 mg (120 mg-180 mg) capsule [...] 24 hours after milk of magnesia) 02/23/2024 Chris Stevens 200-62.5-25 mcg inhaler INHALE 1 PUFF ONCE DAILY 180 each 11/13/2023 documented as of this encounter Discharge Disposition Disposition Code Departure Means Destination Discharge to home or self care documented in this encounter Plan of Treatment Not on file documented as of this encounter Visit Diagnoses Not on filedocumented in this encounter Care Teams Flooring Sales Manager Relationship Specialty Start Date End Date Watson Perry MD PCP - General Family Medicine 01/24/18 documented as of this encounter
--- OUTSIDE RECORDS SUMMARY | 2024-11-23 15:11 | XMS_ITS | Encounter Summary ---
Author Organization [facility] Healthcare Address [address] [place] [address] Care Team Providers Care Assembler Erector Name Role Phone Watson Perry MD Primary Care Provider [phone] Encounter Details Date Type Department Care Team (Latest Contact Info) Description 10/22/2024 8:38 AM ECHOCARDIOGRAPH TECH - 10/22/2024 11:59 PM [facility] Hospital Encounter [address] [id number] Right knee pain, unspecified chronicity Discharge Disposition: Discharge to home or self care Social History Tobacco Use Types Packs/Day Years Used Date Smoking Tobacco: Former Cigarettes 1 50 0 05/18/1972 - 05/18/2022 Smokeless Tobacco: Never Alcohol Use Standard Drinks/Week Comments No 0 (1 standard drink = 0.6 oz pur e alcohol) [facility] Utilities Answer Date Recorded In the past 12 months has th [employer] electric, gas, oil, or water company threatened [...] week 02/20/2024 How often do you attend [facility] or evangelical services? Never 02/20/2024 Do you belong to any clubs o r organizations such as anabaptist groups, unions, fraternal or athletic groups, or [...] place to sleep or slept in a nursing home (including now)? No 02/20/2024 Personal Safety Answer [...] on file Legal Sex Female 1:09 PM ECHOCARDIOGRAPH TECH Gender Identity Not on file Sexual Orientation [...] Take 1 capsule by mouth daily omega 0-[id number]-fish oil 1,000 mg (120 mg-180 mg) capsule [...] Name Priority Date/Time Associated Diagnosis Comments XR KNEE RIGHT 4 OR MORE VIEWS Schedule Routine, Read Routine (OP Routine) 10/22/2024 8:56 AM ECHOCARDIOGRAPH TECH Right knee pain, unspecified chronicity documented in this encounter Results * XR Knee Right 4 or More Views (10/22/2024 8:56 AM ECHOCARDIOGRAPH TECH) Anatomical Region Laterality Modality Lower Extremities, Knee Right Digital Radiography 10/22/2024 9:52 AM ECHOCARDIOGRAPH TECH Impressions 10/22/2024 9:52 AM ECHOCARDIOGRAPH TECH FINDINGS/IMPRESSION: Moderate to severe right lateral compartment arthrosis. ??No acute fracture. ??There is a small joint effusion. ??Soft tissues are unremarkable. Electronically signed by: Raffi Montes II, D.O. Narrative 10/22/2024 9:52 AM ECHOCARDIOGRAPH TECH EXAMINATION: XR KNEE RIGHT 4 OR MORE [...] Visit Diagnoses Diagnosis Right knee pain, unspecified chronicity documented in this encounter Care Teams Assembler Erector Relationship Specialty Start Date End Date Watson Perry MD PCP - General Family Medicine 01/24/18 documented as of this encounter
--- OUTSIDE RECORDS SUMMARY | 2024-11-23 15:12 | XMS_ITS | Encounter Summary ---
Author Organization [facility] Address [address] [place] [address] Care Team Providers Care Wedding Coordinator Name Role Phone Watson Perry MD Primary Care Provider Reason for Visit * Reason Onset Date Comments oxygen/POC 12/19/2022 Encounter Details Date Type Department Care Team (Late st Contact Info) Description 12/19/2022 Telephone [facility] Pulmonary at [address] [place] [address] Nkechi Whitehead LPN oxygen/POC Social History Tobacco Use Types Packs/Day Years Used Date Smoking Tobacco: Former Cigarettes 1 50 0 05/18/1972 - 05/18/2022 Smokeless Tobacco: Never Alcohol Use Standard Drinks/Week Comments No 0 (1 standard drink = 0.6 oz pur e alcohol) Comments Unknown Sex and Gender Information Value Date Recorded Sex Assigned at Not on file Legal Sex Female 1:09 PM FITNESS AND WELLNESS MANAGER Gender Identity Not on file Sexual Orientation Not on file documented as of this encounter Miscellaneous Notes * Telephone Encounter - Selam Chu LPN - 01/02/2023 2:33 PM FITNESS AND WELLNESS MANAGER Called pt to make sure she was taken care of, and pt states yes, picked up the portable concentrator today. ESS AND WELLNESS MANAGER * Telephone Encounter - Selam Chu LPN - 01/02/2023 2:23 PM FITNESS AND WELLNESS MANAGER Matilde with with [facility] called and said she took care of patient and came and picked up concentrator. ESS AND WELLNESS MANAGER * Telephone Encounter - Selam Chu LPN - 01/01/2023 2:33 PM FITNESS AND WELLNESS MANAGER Called [employer], and was informed by Maxwell that they would not take this patient for O2, as shehas another company, and that company is obligated to take care of her. Maxwell spoke with patients and informed him of this this morning. Called [facility], and spoke with Matilde, patient does not qualify for a POC, as she had not used enough portable tanks. They can get a portable for a trip at $150.00 per week. Matilde is going to call pt and inform. ESS AND WELLNESS MANAGER * Telephone Encounter - Selam Chu LPN - 01/01/2023 11:45 AM FITNESS AND WELLNESS MANAGER Pt called and is requesting us to send portable O2 concentrator to [facility], as [facility] does not have any in stock, as well as the rest of her Oxygen orders so she can get all at the same place. ESS AND WELLNESS MANAGER * Telephone Encounter - Nkechi Whitehead LPN - 12/19/2022 2:24 PM FITNESS AND WELLNESS MANAGER Faxed POC order to [facility] ESS AND WELLNESS MANAGER documented in this encounter Plan of Treatment Not on file documented as of this encounter Visit Diagnoses Not on filedocumented in this encounter Care Teams Wedding Coordinator Relationship Specialty Start Date End Date Watson Perry MD PCP - General Family Medicine 01/24/18 documented as of this encounter
--- OUTSIDE RECORDS SUMMARY | 2024-11-23 15:12 | XMS_ITS | Encounter Summary ---
Author Organization [facility] Address [address] [place] [address] Care Team Providers Care General Manager Name Role Phone Watson Perry MD Primary Care Provider [phone] Encounter Details Date Type Department Care Team (Late st Contact Info) Description 10/02/2022 Telephone [facility] [address] [place] [id number] Aydee Rojas, RT Social History Tobacco Use Types Packs/Day Years Used Date Smoking Tobacco: Former Cigarettes 1 50 0 05/18/1972 - 05/18/2022 Smokeless Tobacco: Never Alcohol Use Standard Drinks/Week Comments No 0 (1 standard drink = 0.6 oz pur e alcohol) Comments Unknown Sex and Gender Information Value Date Recorded Sex Assigned at Not on file Legal Sex Female 1:09 PM HEALTHCARE NETWORK CONSULTANT Gender Identity Not on file Sexual Orientation Not on file documented as of this encounter Miscellaneous Notes * Telephone Encounter - Aydee Rojas RT - 10/02/2022 10:12 AM HEALTHCARE NETWORK CONSULTANT Confirmed @ 10:13 THCARE NETWORK CONSULTANT documented in this encounter Plan of Treatment Not on file documented as of this encounter Visit Diagnoses Not on filedocumented in this encounter Care Teams General Manager Relationship Specialty Start Date End Date aWtson Perry MD PCP - General Family Medicine 01/24/18 documented as of this encounter
--- OUTSIDE RECORDS SUMMARY | 2024-11-23 15:12 | XMS_ITS | Encounter Summary ---
Author Organization [facility] Address [address] [place] [address] Care Team Providers Care Cultural Anthropology Professor Name Role Phone Watson Perry MD Primary Care Provider [phone] Encounter Details Date Type Department Care Team (Late st Contact Info) Description 03/15/2018 7:53 AM CDT - 03/15/2018 8:53 AM CDT Surgery [facility] Operating Room [address] [place] [address] Lico Wayne DO [address] [place] [id number] Excision lesion right mandible Surgery Details Date/Time Status Location OR Service Patient Class Case Class Case Type Trauma Case? 03/15/2018 7:53 AM Posted [facility] OPERATING RO[facility] OR Otolaryngology Outpatient Elective Panel 1 Procedure LRB Anes Op Region Wound Class Comments Excision lesion right mandible Right General Mouth Class II - Clean Contaminated Surgeon Surgeon Role Service Panel Lico Wayne DO Primary Otolaryngology 1 documented in this encounter Social History Tobacco Use Types Packs/Day Years Used Date Smoking Tobacco: Every Day Cigarettes Smokeless Tobacco: Never Tobacco Cessation:Ready to Q uit: Yes; Counseling Given: Yes Alcohol Use Standard Drinks/Week Comments No 0 (1 standard drink = 0.6 oz pur e alcohol) Comments Unknown Sex and Gender Information Value Date Recorded Sex Assigned at Not on file 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 Gender Identity Not on file Sexual Orientation Not on file documented as of this encounter Last Filed Vital Signs Vital Sign Reading Time Taken Comments Blood Pressure 113/66 03/15/2018 8:50 AM CDT Pulse 78 03/15/2018 8:50 AM CDT Temperature 36.2 ??C (97.2 ??F) 03/15/2018 8:44 AM CD T Respiratory Rate 19 03/15/2018 8:50 AM CDT Oxygen Saturation 97% 03/15/2018 8:50 AM CDT Inhaled Oxygen Concentration - - Weight 66.2 kg (145 lb 15.1 oz) 03/15/2018 6:15 AM CDT Height 167.6 cm (5' 6 ) 03/15/2018 6:15 AM CDT Body Mass Index 23.56 03/15/2018 6:15 AM CDT documented in this encounter Discharge Instructions * Discharge Instructions* Lico Wayne DO - 03/15/2018 7:01 AM CDT Images from the original note were not included. How to Give Mouth Care WHAT YOU NEED TO KNOW: Mouth care is important because it prevents infection, plaque, bleeding gums, mouth sores, and cavities. It also freshens breath and improves appetite. DISCHARGE INSTRUCTIONS: Items used for mouth care: ?? An electric or manual toothbrush, or foam brush ?? Toothpaste, dental sticks, and floss ?? An apron or towel to protect clothing ?? A cup of water for rinsing ?? A bowl or cup for the person's saliva ?? Water-based lip balm or moisturizer Prepare the person for mouth care: Ask the person to move into an upright position if he can, or help him sit up. Turn the person's head sideways to keep him from choking if he needs to lie flat. Place the apron or towel on the person's clothes. [place] the person's teeth: ?? Wet the toothbrush and place a small amount of toothpaste on it. ?? Gently place the brush onto each tooth, and move it in a [place]. Do not press too hard. This mayinjure the gums. ?? Clean the inner, outer, and top surfaces of the person's teeth. [place] the gums and top of the tongue if his mouth is free of sores. ?? Use foam brushes dipped in water, or just water if his mouth is too sore to be brushed. ?? Have the person swish the water in his mouth, and spit it into a bowl or glass. ?? Dry around his mouth. Apply water-based lip balm or moisturizer to his lips to avoid cracking and dryness. Floss the person's teeth: Ask the person's healthcare provider before you start to floss. You may be told to use waxed floss for easier movement between teeth. Thread the floss between each tooth, but do not push down on the gums too hard. This can cause gum damage. Make sure to floss on each side of every tooth. Clean the person's dentures: It is still important to clean the person's gums and mouth daily if hewears dentures. Remove the dentures from his mouth before you clean them. Moist dentures come out more easily. Ask the person to drink a sip of water before you remove his dentures. Gently rock the dentures from side to side to loosen them. Then pull them out. ?? Ararat the dentures at a sink with clean water and denture seed cleaner or toothpaste. ?? Ararat the dentures on all surfaces with clean, lukewarm water. Do not use hot water. Hot water could damage the dentures. Be careful not to bend any clasps on the dentures as you brush them. [place] with cold water. You may need to place a thin layer of denture adhesive on the dentures. Do this before you place them back in the person's mouth. Ask the person's healthcare provider which adhesive to use. ?? Soak the dentures in a denture solution each night after you brush them. Rinse them in cold water before you place them back in the person's mouth. Contact the person's healthcare provider if: ?? The person gets new mouth sores, or his sores change. ?? The person has excess plaque buildup. ?? The person's dentures do not fit well. ?? The person has pain with brushing. ?? You have questions or concerns about the person's condition or care. Seek care immediately or call 911 if: ?? The person chokes or has trouble breathing during mouth care. ?? 2016 [employer] Information is for End User's use only and may not be sold, redistributed or otherwise used for commercial purposes. All illustrations and images included in CareNotes?? are the copyrighted property of [employer] or [employer]. The above information is an delivery aide only. It is not intended as medical advice for individual conditions or treatments. Talk to your doctor, nurse or pharmacist before following any medical regimen to see if it is safe and effective for you. * Attachments The following attachments cannot be sent through Care Everywhere. * Oxycodone/Acetaminophen (By mouth) (Zimbabwean) * Cephalexin (By mouth) (Zimbabwean) * General Anesthesia (Discharge Care) (Zimbabwean) documented in this encounter Medications at Time of Discharge citalopram (CeleXA) 20 mg tablet Take 1 tablet (20 mg total) by mouth daily clonazePAM (KlonoPIN) 1 mg tablet Take 1 tablet (1 mg total) by mouth daily esomeprazole DR (NexIUM) 20 mg capsule Take 1 capsule (20 mg total) by mouth daily before breakfast pramipexole (MIRAPEX) 1.5 mg tablet Take 1 tablet (1.5 mg total) by mouth 2 (two) times a day propranolol LA (INDERAL LA) 60 mg 24 hr capsule Take 1 capsule (60 mg total) by mouth 2 (two) times a day oxyCODONE-acetam inophen (PERCOCET) 5-325 mg per tabletIndication s:Pain Take 1 tablet by mouth every 4 (four) hours as needed for pain for up to 7 days. 30 tablet 03/15/2018 8 calcium citrate-vitamin D3 250 mg calcium- 200 unit tablet Take by mouth 2 (two) times a day. 3 cephalexin (KEFLEX) 500 mg capsuleIndicatio ns:Prophylaxis, Medical Take 1 capsule (500 mg total) by mouth 3 (three) times a day. 21 capsule 03/15/2018 3 diphenhydrAMINE (BENADRYL) 50 mg capsule Take 50 mg by mouth every 6 (six) hours as needed for itching. 3 fluticasone-ramon nterol (BREO ELLIPTA) 100-25 mcg/dose diskus inhaler Inhale 1 puff daily. Rinse mouth with water after use to reduce aftertaste and incidence of candidiasis. Do not swallow. 2 naproxen sodium 220 mg capsuleIndicatio ns:stop before surgery Take 220 mg by mouth 2 (two) times a day as needed. 3 documented as of this encounter Ordered Prescriptions Prescription Sig Dispense Quantity Refills Last Filled Start Date End Date cephalexin (KEFLEX) 500 mg capsuleIndications :Prophylaxis, Medical Take 1 capsule (500 mg total) by mouth 3 (three) times a day. 21 capsule 03/15/2018 3 oxyCODONE-acetamin ophen (PERCOCET) 5-325 mg per tabletIndications: Pain Take 1 tablet by mouth every 4 (four) hours as needed for pain for up to 7 days. 30 tablet 03/15/2018 8 documented in this encounter Discharge Disposition Disposition Code Departure Means Destination Discharge to home or self care documented in this encounter H&P Notes * Lico Wayne DO - 03/15/2018 7:00 AM CDT I have reviewed the H&P, examined the patient, and endorse the findings as written. Plan of Care : Based on the above findings, I consider Janeth Parker to be an acceptable risk for : Procedure(s): Excision lesion right mandible Source Note - Lico Wayne DO - 03/15/2018 6:59 AM CDT Images from the original note were not included. [facility] DATE OF VISIT: 02/03/2018 ?? CHIEF COMPLAINT ?? Chief Complaint Patient presents with ??? growth oral cavity ? 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 Patient was referred to my office due to asymptomatic roger along the right kin mandible outer table projecting into the buccal mucosa. Patient states it has been there for prolonged. Of time and has been gradually increasing in size. Patient denies any active dental disease. Patient has been seen by her dentist as well as oral surgeon who recommend surgical removal. Due to its size and location patient was referred to ENT for definitive management. ?? MEDICAL HISTORY ?? Medical??History Past Medical History: Diagnosis Date ??? Deviated nasal septum ? Social History Substance Use Topics ??? Smoking status: Current Every Day Smoker ? Packs/day: 0.25 ??? Smokeless tobacco: Never Used ??? Alcohol use No ?? Family History Problem Relation Age of Onset ??? Cancer Neg Hx ? MEDICATIONS HOME MEDICATIONS : calcium citrate-vitamin D3 250 mg calcium- 200 unit tablet citalopram (CeleXA) 20 mg tablet clonazePAM (KlonoPIN) [address] (NexIUM) 20 mg capsule fluticasone-vilanterol (BREO ELLIPTA) 100-25 mcg/dose diskus inhaler pramipexole (MIRAPEX) 1.5 mg tablet propranolol LA (INDERAL LA) 60 mg 24 hr capsule ? ALLERGIES ?? Allergies Allergen Reactions ??? Ibuprofen Rash ? REVIEW OF SYSTEMS Review of Systems Constitutional: Negative for appetite change, chills, diaphoresis, fatigue, fever and unexpected weight change. HENT: Negative for congestion, dental problem, drooling, ear discharge, ear pain, facial swelling, hearing loss, mouth sores, nosebleeds, postnasal drip, rhinorrhea, sinus pressure, sneezing, sore throat, tinnitus, trouble swallowing and voice change. Eyes: Negative for itching and visual disturbance. Respiratory: Negative for apnea, cough, choking, shortness of breath, wheezing and stridor. Cardiovascular: Negative for chest pain. Gastrointestinal: Negative for diarrhea, nausea and vomiting. Endocrine: Negative for cold intolerance, heat intolerance, polydipsia, polyphagia and polyuria. Genitourinary: Negative for dysuria, hematuria and urgency. Musculoskeletal: Negative for arthralgias, gait problem, joint swelling, myalgias, neck pain and neck stiffness. Skin: Negative for color change, pallor, rash and wound. Allergic/Immunologic: Negative for environmental allergies, food allergies and immunocompromised state. Neurological: Negative for dizziness, tremors, seizures, syncope, facial asymmetry, speech difficulty, weakness, light-headedness, numbness and headaches. Hematological: Negative for adenopathy. Does not bruise/bleed easily. Psychiatric/Behavioral: Negative for agitation, behavioral problems, confusion, sleep disturbance and suicidal ideas. ? PHYSICAL EXAM ?? Vitals: ?? 02/01/18 1318 BP: 130/90 ?? Physical Exam Constitutional: She is oriented to person, place, and time. She appears well- developed and well-nourished. HENT: Head: Normocephalic and atraumatic. Right Ear: Hearing, tympanic membrane, external ear and ear canal normal. Left Ear: Hearing, tympanic membrane, external ear and ear canal normal. Nose: Nose normal. Mouth/Throat: Uvula is midline, oropharynx is clear and moist and mucous membranes are normal. Orallesions present. No trismus in the jaw. Normal dentition. No uvula swelling or dental caries. No posterior oropharyngeal edema or posterior oropharyngeal erythema. Tonsils are 0 on the right. Tonsilsare 0 on the left. Eyes: Conjunctivae and lids are normal. Neck: Trachea normal, normal range of motion and phonation normal. Neck supple. Pulmonary/Chest: Effort normal. Neurological: She is alert and oriented to person, place, and time. She has normal strength. GCS eye subscore is 4. GCS verbal subscore is 5. GCS motor subscore is 6. Skin: Skin is warm, dry and intact. Psychiatric: She has a normal mood and affect. Her speech is normal. Nursing note and vitals reviewed. ? LABS AND OTHER DIAGNOSTIC TESTS No results found for: WBC, HGB, HCT, MCV, PLT ? ASSESSMENT Diagnoses and all orders for this visit: ?? Torus mandibularis (Primary) Assessment & Plan: Patient demonstrates multiple mandibular roger along the [...] was explained in full the potential risk, comp lications, benefits and alternatives patient would like to proceed. Patient will be scheduled in a timely fashion. ? PLAN/RECOMMENDATIONS ?? Patient will be scheduled for surgery after completing imaging studies. ? Lico Wayne DO * Lico Wayne DO - 03/15/2018 6:59 AM CDT Images from the original note were not included. [facility] DATE OF VISIT: 02/03/2018 ?? CHIEF COMPLAINT ?? Chief Complaint Patient presents with ??? growth oral cavity ? 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 Patient was referred to my office due to asymptomatic roger along the right kin mandible outer table projecting into the buccal mucosa. Patient states it has been there for prolonged. Of time and has been gradually increasing in size. Patient denies any active dental disease. Patient has been seen by her dentist as well as oral surgeon who recommend surgical removal. Due to its size and location patient was referred to ENT for definitive management. ?? MEDICAL HISTORY ?? Medical??History Past Medical History: Diagnosis Date ??? Deviated nasal septum ? Social History Substance Use Topics ??? Smoking status: Current Every Day Smoker ? Packs/day: 0.25 ??? Smokeless tobacco: Never Used ??? Alcohol use No ?? Family History Problem Relation Age of Onset ??? Cancer Neg Hx ? MEDICATIONS HOME MEDICATIONS : calcium citrate-vitamin D3 250 mg calcium- 200 unit tablet citalopram (CeleXA) 20 mg tablet clonazePAM (KlonoPIN) [address] (NexIUM) 20 mg capsule fluticasone-vilanterol (BREO ELLIPTA) 100-25 mcg/dose diskus inhaler pramipexole (MIRAPEX) 1.5 mg tablet propranolol LA (INDERAL LA) 60 mg 24 hr capsule ? ALLERGIES ?? Allergies Allergen Reactions ??? Ibuprofen Rash ? REVIEW OF SYSTEMS Review of Systems Constitutional: Negative for appetite change, chills, diaphoresis, fatigue, fever and unexpected weight change. HENT: Negative for congestion, dental problem, drooling, ear discharge, ear pain, facial swelling, hearing loss, mouth sores, nosebleeds, postnasal drip, rhinorrhea, sinus pressure, sneezing, sore throat, tinnitus, trouble swallowing and voice change. Eyes: Negative for itching and visual disturbance. Respiratory: Negative for apnea, cough, choking, shortness of breath, wheezing and stridor. Cardiovascular: Negative for chest pain. Gastrointestinal: Negative for diarrhea, nausea and vomiting. Endocrine: Negative for cold intolerance, heat intolerance, polydipsia, polyphagia and polyuria. Genitourinary: Negative for dysuria, hematuria and urgency. Musculoskeletal: Negative for arthralgias, gait problem, joint swelling, myalgias, neck pain and neck stiffness. Skin: Negative for color change, pallor, rash and wound. Allergic/Immunologic: Negative for environmental allergies, food allergies and immunocompromised state. Neurological: Negative for dizziness, tremors, seizures, syncope, facial asymmetry, speech difficulty, weakness, light-headedness, numbness and headaches. Hematological: Negative for adenopathy. Does not bruise/bleed easily. Psychiatric/Behavioral: Negative for agitation, behavioral problems, confusion, sleep disturbance and suicidal ideas. ? PHYSICAL EXAM ?? Vitals: ?? 02/01/18 1318 BP: 130/90 ?? Physical Exam Constitutional: She is oriented to person, place, and time. She appears well- developed and well-nourished. HENT: Head: Normocephalic and atraumatic. Right Ear: Hearing, tympanic membrane, external ear and ear canal normal. Left Ear: Hearing, tympanic membrane, external ear and ear canal normal. Nose: Nose normal. Mouth/Throat: Uvula is midline, oropharynx is clear and moist and mucous membranes are normal. Orallesions present. No trismus in the jaw. Normal dentition. No uvula swelling or dental caries. No posterior oropharyngeal edema or posterior oropharyngeal erythema. Tonsils are 0 on the right. Tonsilsare 0 on the left. Eyes: Conjunctivae and lids are normal. Neck: Trachea normal, normal range of motion and phonation normal. Neck supple. Pulmonary/Chest: Effort normal. Neurological: She is alert and oriented to person, place, and time. She has normal strength. GCS eye subscore is 4. GCS verbal subscore is 5. GCS motor subscore is 6. Skin: Skin is warm, dry and intact. Psychiatric: She has a normal mood and affect. Her speech is normal. Nursing note and vitals reviewed. ? LABS AND OTHER DIAGNOSTIC TESTS No results found for: WBC, HGB, HCT, MCV, PLT ? ASSESSMENT Diagnoses and all orders for this visit: ?? Torus mandibularis (Primary) Assessment & Plan: Patient demonstrates multiple mandibular roger along the [...] was explained in full the potential risk, comp lications, benefits and alternatives patient would like to proceed. Patient will be scheduled in a timely fashion. ? PLAN/RECOMMENDATIONS ?? Patient will be scheduled for surgery after completing imaging studies. ? Lico Wayne DO documented in this encounter Miscellaneous Notes * Perioperative Nursing Note - Courtney Orozco RN - 03/15/2018 9:06 AM CDT 0906 No active bleeding from incision to right mandible. Derick Heart * Op Note - Lico Wayne DO - 03/15/2018 8:04 AM CDT Operative report Preop diagnosis: Osteoma right outer table of mandible/torus mandibularis Postop diagnosis: Same Operative procedure: Excisional biopsy of osteoma/torus mandibularis of the right outer table the mandibular alveolus Surgeon: Dr. Lico Wayne Anesthesia: General Complications: None Disposition: Patient tolerated the procedure well was transported to PACU in stable and satisfactory condition Findings and procedure: This is a patient who has a large bony nodular mass coming off of the outer table of the kin mandible suspicious for a torus mandibularis/osteoma causing her chronic symptoms. Preop imaging was obtained. Excisional biopsy was indicated. All questions were answered to what appeared to be patient's u nderstanding and satisfaction. After the procedure was explained in full the potential risk, complications, benefits and alternatives patient would like to proceed. Informed consent was obtained On the day of 03/14/2018 patient was taken to the operative suite under the care of anesthesia. Patient was placed in the supine position. Once anesthesia was induced via endotracheal inhalation the table was turned 90?? to the right and. Patient was properly draped and prepped in a standard fashion. The circulating nurse performed a time-out which was acknowledge confirmed and accepted. The mandible was distracted with a bite block. A sweetheart retractor was used to retract the tongue. A Army-Baudette retractor was used to retract the buccal cheek. There was a large bony mass coming off of the outer table of the mandibular alveolus of the right mandible. 1% lidocaine with 1 100,000 epinephrinewas then locally injected into the mucosa submucosa. After appropriate time had elapsed and incision was made and carried down to the sub periosteal plane. A periosteal elevator was used and the softtissue was elevated off of the bony mass. An osteotome was placed at the base of this bony lesion. The bony mass was then excised with the osteotome off of the mandibular alveolus. Minimal bleeding was appreciated. A bony rasp was used to file down in smooth out the surface of the excision site. The area was then irrigated. Four 0 chromic was used to close the incision in a running technique. Theoral cavity and oropharynx were suctioned clear secretions. The procedure was completed. Patient tolerated the procedure well. Once anesthesia was discontinued patient was transported to PACU in stable and satisfactory condition. * Pre-Procedure Instructions - Christa Bhatti RN - 03/12/2018 4:22 PM CDT We are pleased that you and your doctor have chosen [facility] for your surgery. We hope that the following information will help make your visit a pleasant one. Surgery Date: 03/15/2018 Before your surgery: ?? Notify your doctor of ANY change in your health such as a cold, sore throat, fever, any infection or a change in the problem for which you are having your surgery. ?? Follow any instructions given to you by your doctor or surgeon. One week before surgery STOP taking: ?? All herbal supplements ?? Aspirin (not ordered by your doctor) ?? Aleve, Advil, Motrin, Ibuprofen, or other similar medications (Tylenol is okay). 24 hours before your surgery: ?? No smoking or alcoholic drinks. Night before your surgery: ?? Do not eat or drink anything after midnight. ?? Follow surgeon's instructions for anti-bacterial shower night before and morning of surgery. Day of surgery: ?? Do not swallow any water when you brush your teeth. ?? ONLY take these pills Citalopram, Clonazepam, Nexium, Breo Ellipta, Pramipexole and Propranolol with a tiny sip of water. ?? Use no make-up, nail indonesian, lotions, oils or powders on your skin. ?? Wear comfortable clothes that will not be tight in the area of your surgery. ?? Leave all valuables and jewelry (including all body piercing jewelry) at home. ?? Please bring your a photo ID and insurance cards with you. ?? Check in at the Ambulatory Surgery Check-In. ?? If you are 17 years old or younger, a parent or guardian must come with you. After your Outpatient Surgery: ?? You must have a responsible adult to drive you home, you will not be allowed to drive or take a cab home. ?? We recommend you have someone stay with you for 24 hours after your surgery. What to bring if you are spending the night with us: ?? Bring toiletry items such as: robe, slippers, toothbrush, toothpaste, brush or comb. ?? Bring contact lens, hearing aids, glass cases and denture container if you use any of these items. ?? The hospital will provide you with a gown. Questions or concerns: ?? If you have any questions or concerns regarding your procedure, contact your surgeon as soon as possible. ?? If you have questions regarding your Pre-Admission Testing, please call us. We can be reached atthe number posted at the top of the page. documented in this encounter Plan of Treatment Not on file documented as of this encounter Procedures Procedure Name Priority Date/Time Associated Diagnosis Comments SURGICAL PATHOLOGY Routine 03/15/2018 9: 56 AM CDT EXCISION CYST - THYROGLOSSAL DUCT 03/15/2018 7:53 AM CDT lesion rt mandible ECG 12-LEAD STAT 03/15/2018 6:38 AM CDT SURGICAL PATHOLOGY 03/15/2018 12 :00 AM CDT documented in this encounter Results * Surgical pathology (03/15/2018 9:56 AM CDT) 03/15/2018 9:56 AM CDT 03/15/2018 9:56 AM CDT Narrative 03/19/2018 2:29 PM CDT [facility] Department of Pathology [address] [place] [address] Final Report ?Patient Name: JANETH PARKER Address: [address] [address] [facility] Service: Surgery ??[place], [place] ??[address] Location: [facility] MISHEL Taken: 03/15/2018 Gender: F Received 03/15/2018 : 1950 (Age: 68) Hospital #: [id number] Accessioned: 03/15/2018 ?? Patient Type: [facility] SDS Reported 03/19/2018 Physician(s): Dr. Lico Wayne, D.O. ?? Diagnosis: Right lower mandible, excisional biopsy: ? - Exostosis/osteophyte, consistent with ?? Ofe Durand M.D. ??Report Electronically Reviewed and Signed Out By ??Ofe Durand M.D. ??03/19/2018 14:29:53 Specimen(s) Received: A: Bone Microscopic Description: Microscopic examination reveals benign, nonneoplastic tissue. ??It appears as a circumscribed piece of densely sclerotic bone. ??There are no other significant findings. Clinical History: Lesion of right lower mandible. ??Right lower torus mandibularis. ??Excision lesion right mandible. Gross Description: The specimen is received in one container labeled Janeth Parker and right lower torus mandibularis . ??It is a 2 x 1 x 1 cm ovoid shaped piece of bone. ??Bisected, decalcified and all submitted in one cassette. ??Maxim Sanchez MD/Rossana Harper, P.A. Complete report with images are only be viewable in the PDF report The performance characteristics of some immunohistochemical stains, fluorescence in-situ hybridization tests and immunophenotyping by flow cytometry cited in this report (if any) were determined by the Surgical Pathology Department at [facility] as part of an ongoing food quality tester program and in compliance with federally mandated regulations drawn from the Clinical Laboratory Improvement Act of 1988 (CLIA '88). ??Some of these tests rely on the use of analyte specific reagents and are subject to specific labeling requirements by the [place] Food and Drug Administration. ??Such diagnostic tests may only be performed in a facility that is certified by the Department of Health and Human Services as a high complexity laboratory under CLIA '88. The FDA has determined that such clearance or approval is not necessary. ??This test is used for clinical purposes. ??It should not be regarded as investigational or for research. ??Nevertheless, federal rules concerning the medical use of analyte specific reagents require that the following disclaimer be attached to the report: This test was developed and its performance characteristics determined by the Surgical Pathology Department [facility]. ??It has not been cleared or approved by the U. S. Food and Drug Administration. Lico Wayne DO LAB PATHOLOGY ORDERABLES Fin al Result * ECG 12 lead (03/15/2018 6:38 AM CDT) Patient age 68 years [facility] Interpretation Text SINUS BRADYCARDIABORDERLINE ECGNO PREVIOUS TRACING [facility] Comment:Physician Interprete r Dr. Bhupendra Lira M.D. Ventricular Rate EKG/Min 59 /min [facility] P Wave Duration 121 ms [facility] QRS-Interval (MSEC) 105 ms [facility] SD-Interval (MSEC) 148 ms [facility] QT Interval 451 ms [facility] QTc 449 ms [facility] QTC Interval ms [facility] P Rosman 65 deg [facility] QRS Rosman 65 deg [facility] T Rosman 68 deg [facility] 03/15/2018 6:38 AM CDT Armida Kang MD ECG ORDERABLES Final Re sult [facility] [place] * SURGICAL PATHOLOGY (03/15/2018 12:00 AM CDT) Narrative 03/15/2018 12:00 AM CDT Ordered by an unspecified provider. Historical Provider LAB PATHOLOGY ORDERABLES Final Result documented in this encounter Visit Diagnoses Not on filedocumented in this encounter Administered Medications Inactive Administered Medications - up to 3 most recent administrations Medication Order MAR Action Action Date Dose Rate Site Lactated Ringer's (LR) infusion 30 mL/hr, intravenous, Continuous, Starting on Sun03/15/18 at 0830, Pre-Op New Bag 03/15/2018 6:32 AM CDT 30 mL/hr 30 mL/h r Lactated Ringer's (LR) infusion 30 mL/hr, intravenous, Continuous, Starting on Sun03/15/18 at 0745, Pre-Op New Bag 03/15/2018 9:00 AM CDT 30 mL/hr 30 mL/h r New Bag 03/15/2018 7:53 AM CDT lidocaine-EPINEPHrine (XYLOCAINE with EPI) 1 %-1:100,000 injection As needed, Starting on Sun03/15/18 at 0806, Intra-Op, Indications: Administration of Local AnesthesiaIndications:Administrati on of Local Anesthesia Given 03/15/2018 8:06 AM CDT 2 mL Surgical Site sodium chloride (NS) 0.9 % irrigation As needed, Starting on Sun03/15/18 at 0806, Intra-Op Given 03/15/2018 8:06 AM CDT 500 mL Surgical Site sodium chloride 0.9% flush 0.5-20 mL 0.5-20 mL, intra-catheter, As needed, line care, Starting on Sun03/15/18 at 0755, Pre-Op, Flush volume based on line type and size. Flush before and after each use. , Indications: FlushingIndications:Flushing documented in this encounter Historical Medications * This list may reflect changes made after this encounter. diphenhydrAMINE (BENADRYL) 50 mg capsule Take 50 mg by mouth every 6 (six) hours as needed for itching. 03/29/2023 naproxen sodium 220 mg capsuleIndication s:stop before surgery Take 220 mg by mouth 2 (two) times a day as needed. 03/29/2023 added in this encounter Active and Recently Administered Medications Times are shown in CDT. Scheduled Medication Order 03/13/2018 03/14/2018 03/15/2018 ceFAZolin (ANCEF) IV syringe (100 mg/mL in SW) 1,000 mg 1,000 mg, intravenous, Administer over 5 Minutes, Once, On Sun03/15/18 at 0745, For 1 dose, Pre-Op, Indications: Prophylaxis, Surgical 0745 (Due) Continuous Medication Order 03/13/2018 03/14/2018 03/15/2018 Lactated Ringer's (LR) infusion 30 mL/hr, intravenous, Continuous, Starting on Sun03/15/18 at 0830, Pre-Op 0632 (New Bag - Prov ider: Es Copeland RN) Lactated Ringer's (LR) infusion 30 mL/hr, intravenous, Continuous, Starting on Sun03/15/18 at 0745, Pre-Op 0753 (New Bag - Prov ider: Simona Sesay CRNA)0900 (New Bag - Provider: Courtney Orozco RN) PRN Medication Order 03/13/2018 03/14/2018 03/15/2018 lidocaine-EPINEPHrine (XYLOCAINE with EPI) 1 %-1:100,000 injection (CANCELED) As needed, Starting on Sun03/15/18 at 0806, Intra-Op, Indications: Administration of Local Anesthesia 0806 (Given - Provid er: Lico Wayne, DO - Comment: right mouth) sodium chloride (NS) 0.9 % irrigation (CANCELED) As needed, Starting on Sun03/15/18 at 0806, Intra-Op 0806 (Given - Provid er: Lico Wayne, DO - Comment: and clean up) sodium chloride 0.9% flush 0.5-20 mL 0.5-20 mL, intra-catheter, As needed, line care, Starting on Sun03/15/18 at 0755, Pre-Op, Flush volume based on line type and size. Flush before and after each use. , Indications: Flushing sodium chloride 0.9% flush 0.5-20 mL 0.5-20 mL, intra-catheter, As needed, line care, Starting on Sun03/15/18 at 0706, Pre-Op, Flush volume based on line type and size. Flush before and after each use. , Indications: Flushing documented in this encounter Orders Medications Ordered That Darron ht Not Have Been Administered Count Last Ordered Date First Ordered Date ceFAZolin (ANCEF) IV syringe (100 mg/mL in SW) 1,000 mg 1 03/15/2018 clindamycin (CLEOCIN) 900 mg /50 mL IVPB piggyback - ADS Override Pull 1 03/15/2018 fentaNYL (SUBLIMAZE) 50 mcg/ mL preservative free injection - ADS Override Pull 1 03/15/2018 midazolam (VERSED) 1 mg/mL p reservative free injection - ADS Override Pull 1 03/15/2018 sodium chloride 0.9% flush 0.5-20 mL 2 02/18 Lab Orders Without Results Count Last Ordered D ate First Ordered Date SURGICAL PATHOLOGY 1 03/15/2018 Diet Count Last Ordered Date First Orde red Date ADULT DISCHARGE DIET 1 03/15/2018 Nursing Count Last Ordered Date First Orde red Date DISCHARGE ACTIVITY 1 03/15/2018 DISCHARGE CALL PROVIDER 8 03/15/2018 DISCHARGE DRESSING 1 03/15/2018 DISCHARGE INSTRUCTIONS 1 03/15/2018 FOLLOW UP WITH PROVIDER 1 03/15/2018 Discharge Count Last Ordered Date First Orde red Date DISCHARGE PATIENT 1 03/15/2018 documented in this encounter Care Teams Cultural Anthropology Professor Relationship Specialty Start Date End Date Watson Perry MD PCP - General Family Medicine 01/24/18 documented as of this encounter
--- OUTSIDE RECORDS SUMMARY | 2024-11-23 15:12 | XMS_ITS | Encounter Summary ---
Author Organization [facility] Address [address] [place] [address] Care Team Providers Care Health Associate Name Role Phone Watson Perry MD Primary Care Provider [phone] Reason for Visit * Reason Comments Shortness of Breath * Auth/Cert Specialty Diagnoses / Procedures Referred By Contac t Referred To Contact Diagnoses COPD exacerbation (HCC) Procedures NA Referral ID Status Reason Start Date Expiration Date Visits Re quested Visits Authorized [id number] 1 1 Encounter Details Date Type Department Care Team (Latest Contact Info) Description 03/29/2023 1:04 PM CDT - 04/01/2023 12:00 PM CDT Hospital Encounter [facility] [address] [place] [address] Tripp Hernandez MD [address] [address] Shane Patel MD [address] [place] [address] [place] [address] Beverly Medina MD [address] [place] [address] [place] [address] COPD exacerbation (HCC) (Primary Dx); Multifocal pneumonia; Lymphadenopathy; Hypoxia Discharge Disposition: Discharge to home or self [...] often do you attend chur ch or gnosticist services? Never 03/30/2023 Do you belong to any clubs o r organizations such as islam groups, unions, fraternal or athletic groups, or [...] on file Legal Sex Female 1:09 PM [employer] Gender Identity Not on file Sexual Orientation Not on file documented as of this encounter Last Filed Vital Signs Vital Sign Reading Time Taken Comments Blood Pressure 111/77 04/01/2023 6:12 AM CDT Pulse 66 04/01/2023 8:00 AM CDT Temperature 36.4 ??C (97.5 ??F) 04/01/2023 6:12 AM CD T Respiratory Rate 18 04/01/2023 6:12 AM CDT Oxygen Saturation 92% 04/01/2023 9:15 AM CDT Inhaled Oxygen Concentration - - Weight 78.1 kg (172 lb 2.9 oz) 03/29/2023 9:35 P M CDT Height 167.6 cm (5' 6 ) 03/29/2023 9:35 PM CDT Body Mass Index 27.79 03/29/2023 9:35 PM CDT documented in this encounter Discharge Summaries * Beverly Medina MD - 04/01/2023 9:35 AM CDT Inpatient Discharge Summary Patient Name - Janeth Lake Patient Age - 73 yrs Patient - [id number] [facility] - [id number] Document Creation Date: 04/01/2023 Admitting Provider, : Shane Patel MD Discharge Provider, : Beverly Medina MD Primary Care Physician at Discharge: Watson Perry MD [phone] Admission Date: 03/29/2023 Discharge Date/time: 04/01/2023 Admission Location: [facility] LOS - LOS: 3 days DETAILS OF HOSPITAL STAY Hospital Problems/Diagnoses Principal Problem: COPD exacerbation (HCC) Reason for Hospitalization: 73-year-old female with history of COPD on 3 L admitted due to complaints of shortness of breath that has been going on for few days. She reports chronic productive clear cough but has no hemoptysis. She denies any sick contact, runny nose or sore throat. Also, she has had watery and itchy eyes and has felt congested. Hospital Course: CTA chest on admission reported a moderate-sized area of consolidation in the right lower lobe, andsome infiltrate in the left lung base. Also noted with bilateral hilar right greater than left, andmediastinal lymphadenopathy which is nonspecific. Patient was admitted for COPD exacerbation and pneumonia. started on breathing treatments, steroidsand antibiotics. Pulmonary was consulted. Pt was started on 6 lpm O2 via nasal cannula. Patient did well, today has no wheezing, and is back on 3 lpm home O2. Stable for discharge on Prednisone X 5 days, and Levaquin X 1 day to complete 5 day course. Patient is advised to follow up withher PCP. Short-term follow-up CT chest may be done as outpatient to ensure improvement in the lymphadenopathy and exclude right hilar neoplastic lesion. Discharge Details Physical Exam at Discharge: Discharge Condition: stable Pulse: 62 Resp: 18 BP: 111/77 Temp: 36.4 ??C (97.5 ??F) Weight: 78.1 kg (172 lb 2.9 oz) Pertinent Exam Findings at Discharge: Gen: awake, no acute distress, pleasant and cooperative Neuro: no focal deficits, CN II-XII grossly intact Eyes: extraocular movement intact, sclerae anicteric HENT: supple, no JVD CV: regular rate and rhythm; no murmurs, rubs, or gallops; no peripheral edema; 2+ pulses in all extremities Pulm: clear to auscultation bilaterally; no wheezing, rales, or rhonchi GI: soft, non-tender, non-distended MSK: no cyanosis, clubbing Skin: warm,dry Psych: normal mood and affect Discharge Disposition: Discharge to home or self care Code Status at Discharge: Full Code Active Issues & Recommended Plan for Follow-up: Continue antibiotics and steroids as prescribed Allergies: Ibuprofen Discharge Medications: Your medication list START taking these medications Instructions Last Dose Given Next Dose Due erythromycin ophthalmic ointment Commonly known as: ILOTYCIN each eye, 4 times daily levoFLOXacin 750 mg tablet Commonly known as: LEVAQUIN Start taking on: April 02, 2023 750 mg, oral, Daily predniSONE 20 mg tablet Commonly known as: DELTASONE 40 mg, oral, Daily CHANGE how you take these medications Instructions Last Dose Given Next Dose Due omega 4-oge-fvk-fish oil 1,000 mg (120 mg-180 mg) capsule What changed: when to take this 1,000 mg, oral, 2 times daily CONTINUE taking these medications Instructions Last Dose Given Next Dose Due calcium carbonate 1,500 mg (600 mg elemental) tablet Commonly known as: OS-ERUM 600 mg of elemental calcium, oral, 2 times daily citalopram 20 mg tablet Commonly known as: CeleXA 20 mg, oral, Daily clonazePAM 1 mg tablet Commonly known as: KlonoPIN 1 mg, oral, Daily esomeprazole DR 20 mg capsule Commonly known as: NexIUM 20 mg, oral, Daily before breakfast furosemide 20 mg tablet Commonly known as: LASIX 10 mg, oral, Daily multivitamin capsule 1 capsule, oral, Daily pramipexole 1.5 mg tablet Commonly known as: MIRAPEX 1.5 mg, oral, 2 times daily primidone 250 mg tablet Commonly known as: MYSOLINE 250 mg, oral, Daily propranolol LA 60 mg 24 hr capsule Commonly known as: INDERAL LA 60 mg, oral, 2 times daily rosuvastatin 10 mg tablet Commonly known as: CRESTOR 10 mg, oral, Nightly, at bedtime. Trelegy Ellipta 200-62.5-25 mcg inhaler Generic drug: newxguiwzfm-imxfjpocj-beshgfbm 1 puff, inhalation, Daily STOP taking these medications cephalexin 500 mg capsule Commonly known as: Keflex Where to Get Your Medications These medications were sent to [facility] [address] [place] [id number] erythromycin ophthalmic ointment levoFLOXacin 750 mg tablet predniSONE 20 mg tablet Information about where to get these medications is not yet available Ask your nurse or doctor about these medications omega 1-orm-dns-fish oil 1,000 mg (120 mg-180 mg) capsule Time Spent in Discharge Process: I have spent 33 minutes on discharge planning activities. Time spent was on Coordination of care, Follow up , Counselling with patient/family, discharge exam, and parent/patient education Test Results Pending at Discharge (If Blank, None Found): Pending Labs Order Current Status Aerobic culture and gram stain Sputum Sputum (Cytology) In process Mycobacteriology (AFB) culture and acid-fast stain Sputum Sputum (Cytology) In process Blood culture Blood Preliminary result Blood culture Blood Antecubital, right Preliminary result Mycobacteriology (AFB) culture and acid-fast stain Sputum Sputum (Cytology) Preliminary result Operative Procedures Performed (If Blank, None Found): Outpatient Follow-Up: Future Appointments Date Time Provider Department Center 07/24/2023 9:30 AM Efren Villanueva MD PUL[facility] 12/12/2023 9:00 AM [address] Main Contact Information for Follow-ups Watson Perry MD Specialty: Family Medicine [address] [place] [address] Next Steps: Follow up Instructions: Call to schedule an appt in 1-2 weeks Questions: Instructions for follow-up (appointment date and time): Call to schedule an appt in 1-2 weeks To provider: WATSON PERRY Please schedule an appointment with the following provider(s): Watson Perry MD [address] [place] [address] Call to schedule an appt in 1-2 weeks ANCILLARY INFORMATION Other Procedures & Diagnostic Tests: Transthoracic Echo (TTE) Complete W Doppler/CF Result Date: 03/30/2023 [place] [address] Echocardiogram Report Patient Name: JANETH LAKE M : 1950 Study Date: 03/30/2023 7:29:43 AM Gender: F Tech: VAN Location: [id number] Ref.Provider: MARLENY BLOCK ight(Cm): 168 BSA: 1.9 Weight(Kg): 77.1 Quality: Definity contrast agent used to enhance endocardial border definition Order Provider: MARLENY BLOCK Procedures: Echocardiographic Report: Transthoracic echocardiogram with complete 2D, M-Mode, color Doppler examination and contrast. Indications:respiratory failure, elevated BNP. Measurements: 2D/M Mode Doppler Measurement Value Normal Range Measurement Value Normal Range EF Teich MM 78.0 [ 55.0 - 70.0 ] percent NAE Vmax 3.57 [ 2.00 - 4.00 ]cm2 LVIDd MM 3.30 [ 3.90 - 5.30 ] cm AV Mean PG 4 [ 2 - 4 ] mmHg LVIDs MM 1.80 [ 2.30 - 3.90 ] cm AV Peak Ari 1.28 [ 1.00 - 1.70 ] m/s LVPWd MM 1.10 [ 0.60 - 1.00 ] cm AV VTI 28.76 cm IVSd MM 1.20 [ 0.60 - 0.90 ] cm LVOT Diam 2.24 [ 1.70 - 2.10 ] cm LA Dimension MM 2.67 [ 2.70 - 3.80 ] cm LVOT Peak Ari 1.16 [ 0.70 - 1.10 ] m/s AoR Diam MM 2.95 [ 2.60 - 3.70 ] cm LVOT VTI 26.06 [ 20.00 - 30.00 ] cm MV E Peak Ari 0.62 [ 0.60 - 1.30 ] m/s MV A Peak Ari 0.70 [ 1.00 - 1.20 ] m/s MV Mean PG 1 [ <= 5 ] mmHg MV PHT 44 [ 20 - 100 ] msec MVA 5.00 MV Decel Time 153 [ 104 - 258 ] msec PV Peak Ari 0.75 [ 0.40 - 0.80 ] m/s TR Peak Ari 2.83 [ 1.00 - 2.80 ] m/s TR Peak PG 32 mmHg RVSP 40.00 [ 10.00 - 36.00 ] mmHg E` 0.08 cm/sec E/E` 7.28 [ <= 10.00 ] PA Pressure 40.00 [ 10.00 - 36.00 ] mmHg Findings: Atrial Septum: Normal atrial septum. Left Ventricle: Normal left ventricular systolic function with no focal wall motion abnormalities. Normal left ventricular size. Optison contrast agent used to visually enhance endocardial wall motion and contractility. Normal left ventricular wall thickness. Impaired diastolic relaxation Grade I. Ejection fraction is measured at 76 %. Left Atrium: Theleft atrium is normal in size. Right Ventricle: Normal right ventricular size. Normal right ventricular systolic function. Right Atrium: The right atrium is normal in size. Aortic Valve: Normal structure of the aortic valve. Mitral Valve: Mild mitral annular calcification. Mild mitral valve regurgitation. Pulmonic Valve: Normal structure of the pulmonic valve. Tricuspid Valve: Mild pulmonary hypertension based on right ventricular systolic pressure. Estimated peak RVSP is 40 mmHg. Mild tricuspid regurgitation. Pericardium: Normal pericardium with no significant pericardial effusion. Aorta: Normal aortic root. Sinus of Valsalva is normal. Aortic arch is normal. Descending aorta is normal. IVC: Normal size and normal respiratory collapse consistent with normal right atrial pressure (<5 mmHg). Pulmonary Artery: Normal pulmonary artery size. Conclusions: Normal left ventricular systolic function with no focal wall motion abnormalities. Normal left ventricular size. Normal left ventricular wall thickness. Impaired diastolic relaxation Grade I. Ejection fraction is measured at 76 %. Mild mitral annular calcification. Mild mitral valve regurgitation. Mild pulmonary hypertension based on right ventricular systolic pressure. Estimated peak RVSP is 40 mmHg. Mild tricuspid regurgitation. Technically difficult study with suboptimal views. Optison contrast agent used to visually enhanceendocardial wall motion and contractility. Electronically Signed By: Cruz Espinoza MD 2023-03-30 08:40:[address] Chest PE (CTA) W Contrast Result Date: 03/29/2023 EXAM DESCRIPTION: CT CHEST PE (CTA) W CONTRAST REASON FOR STUDY: Chest pain, PE suspected, high prob history of COPD on chronic oxygen, 3 L, presents for evaluation for worsening shortness of breath.TECHNIQUE: CT angiogram of the chest performed with intravenous contrast using helical scanning technique with dynamic intravenous contrast injection. Reconstructed coronal and sagittal MPR images reviewed. All images stored on PACS. 3D MIP images rendered on scanning unit and reviewed at time of interpretation. Automated exposure control was used as a dose optimization technique for this examination. CONTRAST TYPE/DOSE: 100mL of IOVERSOL 350 MG IODINE/ML INTRAVENOUS SYRINGE injected via left arm IV COMPARISON: Radiograph earlier the same day, CT chest 12/11/2022 REFERENCE: Per ACR white paper recommendations, unless otherwise specified no follow-up imaging is recommended for incidental renal and adrenal lesions per consensus recommendations based on imaging criteria. Further lab evaluation could be pursued based on clinical findings. FINDINGS: VASCULATURE: No identified pulmonary emboli. LUNGS: Moderate-sized area of consolidation in the right lower lobe with ground-glass infiltrate present. Infiltrate in the left lung base. Mild pulmonary emphysema. Upper lobe ground-glass opacityseen on the previous exam well visualized on this exam. PLEURA: No effusion. No pneumothorax. MEDIAS TINUM/WARREN: There is bilateral hilar lymphadenopathy. A conglomeration of nodes measures up to about 3 cm x 3 cm. There are prominent mediastinal lymph node measuring up to about 1 cm. HEART: Heart size is normal with no pericardial effusion. AXILLA: No adenopathy. CHEST WALL: No masses. No subcutaneous air. HARDWARE/LINES/TUBES: None. UPPER ABDOMEN: No significant abnormality. MUSCULOSKELETAL: No significant abnormality. OTHER: No significant abnormality. IMPRESSION: No evidence of PE. Moderate-sized area of consolidation in the right lower lobe. There is also some infiltrate in the left lung base. This is likely evidence for an infectious process. There is bilateral hilar right greater than left, and mediastinal lymphadenopathy which is nonspecific. Lymphadenopathy on the right has worsened from the previous exam, allowing for differences in technique. While this may be reactive in nature recommend short-term follow-up CT chest to ensure improvement and exclude right hilar neoplastic lesion. THIS IS AN ELECTRONICALLY VERIFIED FINAL REPORT 03/29/2023 5:30 PM - Electronically signed by Carlyle Conway M.D. RW: REENE Report ID: [id number] Reading Location: [id number] XR Chest 1 Vw Portable Result Date: 03/29/2023 EXAM DESCRIPTION: XR CHEST 1 VIEW REASON FOR STUDY: Short of breath Patient is a 73-year-old femalewith a history of COPD on chronic oxygen, 3 L, presents for evaluation for worsening shortness of breath. States that she was requiring increasing oxygen levels and oxygen levels were still dropping.She notes that she had some watery eyes and congestion that started a couple days ago. No nausea, vomiting or diarrhea. No chest pain. Denies any history of cardiac disease. He is no longer a smoker.Is not anticoagulated. TECHNIQUE: 1 radiographic view(s) of the chest. COMPARISON: 12/11/2022 FINDINGS: The heart size is stable. There are atherosclerotic changes of the aorta. There is mild prominence of pulmonary vasculature. There is no definite evidence of a pneumothorax. There are patchy bilateral perihilar and bibasilar airspace opacities. There is suggestion of a small left pleural effusion. There is a stable calcified granuloma in the upper left lung. The osseous structures are acutelygrossly stable. IMPRESSION: Mild prominence of pulmonary vasculature with suggestion of a small left pleural effusion. Patchy bilateral airspace opacities, which may be related to subsegmental atelectasis/scarring, mild pulmonary edema, and/or developing airspace disease. THIS IS AN ELECTRONICALLY V ERIFIED FINAL REPORT 03/29/2023 3:10 PM - Electronically signed by Esau Patel D.O. PS: PS Report ID: [id number] Reading Location: [place] [address] ECG 12 lead Result Date: 03/29/2023 Vent Rate: 66 bpm RR Interval: 909 msec GA Interval: 147 msec QRS Duration: 85 msec QT Interval: 398 msec QTC Interval: 411 msec P-R-T [place]: 53 - 48 - 47 degrees SINUS RHYTHM NORMAL ECG Electronically Signed By: Cruz Espinoza MD Recent Labs: Recent Labs Lab Units 04/01/2333003/31/2322103/30/23522 WBC K/cumm 8.6 9.4 8.0 HEMOGLOBIN g/dL 11.9 11.3* 11.5* HEMATOCRIT % 37.8 35.8 36.3 PLATELETS K/cumm 460* 439* 418* Recent Labs Lab Units 04/01/2333003/31/2322103/30/23522 WBC K/cumm 8.6 9.4 8.0 HEMOGLOBIN g/dL 11.9 11.3* 11.5* HEMATOCRIT % 37.8 35.8 36.3 PLATELETS K/cumm 460* 439* 418* NEUTROS PCT % 71.9 65.0 61.4 LYMPHS PCT % 24.1 30.6 33.4 MONOS PCT % 2.8 3.1 4.0 EOS PCT % 0.1 0.5 0.4 Recent Labs Lab Units 04/01/2333003/31/2322103/30/2352203/29/23 1323 SODIUM mmol/L 134* 137 136 137 POTASSIUM PLASMA mmol/L 4.7 4.0 4.1 4.2 CHLORIDE mmol/L 91* 92* 94* 95* CO2 mmol/L 38* 38* 35* 32 BUN SERUM mg/dL 11 11 11 8 CREATININE mg/dL 0.62 0.63 0.59* 0.62 NNA-FRX-NTLBUDC mL/min/1.73 m2 95 95 96 95 GLUCOSE mg/dL 133 99 98 120 CALCIUM mg/dL 9.5 9.6 9.5 9.4 ALBUMIN g/dL -- -- -- 3.6 PHOSPHORUS PLASMA mg/dL 3.9 2.8 3.2 -- Recent Labs Lab Units 04/01/23 03303/31/2322103/30/2352203/29/23 1323 SODIUM mmol/L 134* 137 136 137 POTASSIUM PLASMA mmol/L 4.7 4.0 4.1 4.2 CHLORIDE mmol/L 91* 92* 94* 95* CO2 mmol/L 38* 38* 35* 32 ANIONGAP mmol/L 5 8 8 10 GLUCOSE mg/dL 133 99 98 120 BUN SERUM mg/dL 11 11 11 8 CREATININE mg/dL 0.62 0.63 0.59* 0.62 CALCIUM mg/dL 9.5 9.6 9.5 9.4 ALBUMIN g/dL -- -- -- 3.6 ALK PHOS Units/L -- -- -- 96 ALT Units/L -- -- -- 21 AST Units/L -- -- -- 24 BILIRUBIN TOTAL mg/dL -- -- -- <0.2 Recent Labs Lab Units 03/29/23 132 ALK PHOS Units/L 96 BILIRUBIN TOTAL mg/dL <0.2 TOTAL PROTEIN g/dL 6.7 ALT Units/L 21 AST Units/L 24 Recent Labs Lab Units 04/01/2333003/31/2322103/30/23 05 MAGNESIUM mg/dL 2.2 2.0 2.2 Recent Labs Lab Units 03/29/23 1333 PH ART 7.34* PCO2 ART mmHg 66* PO2 ART mmHg 73* BASE EXC ART mmol/L 8 HCO3 ART (CALC) mmol/L 35* O2 SAT ART (DEAN) % 94 Lab Results Component Value Date GLUCOSE 133 04/01/2023 GLUCOSE 99 03/31/2023 GLUCOSE 98 03/30/2023 Implant: Implants No active implants to display in this view. General Precautions (If Blank, None Found): Isolation Status: No active isolations Nutritional Status and in-house recommendations: Dietary Orders (From admission, onward) Start Ordered 03/30/23 0549 Adult Diet Regular Diet effective now Question: ([facility]) Diet Type Answer: Regular 03/30/23 0548 Anticoagulation Indication: INR: No results found for requested labs within last 30 days. Warfarin Administrations (last 168 hours) None Oxygen Status: O2 Therapy for the past 12 hrs: O2 Therapy O2 Flow Rate (L/min) 04/01/23 0915 Supplemental oxygen 3 L/min 04/01/23 0612 Supplemental oxygen 3 L/min 04/01/23 0122 Supplemental oxygen 3 L/min 03/31/23 2341 Supplemental oxygen 3 L/min Wound Care Instructions [...] LDAs (If Blank, None Found): Peripheral IV 03/29/23 20 G Left Antecubital (Active) Placement Date/Time: 03/29/23 1320 Type: Angiocath Size (Gauge): 20 G Location Orientation: Left Location: Antecubital Patient Emergency Contact: Primary Emergency Contact: [place], [place] Immunization Status at Discharge Immunization History Administered Date(s) Administered Pfizer SARS-CoV-2 Monovalent Vaccination (12+ Yrs) PURPLE 12/22/2020, 01/28/2021, 08/17/2021, 09/16/2021 Beverly Medina MD documented in this encounter Discharge Instructions * Discharge Instructions* Ria eFrrell RN - 04/01/2023 7:34 AM CDT THANK YOU for choosing our team to provide your health care. Your HEALTH AND SAFETY are important to us. We hope you feel your care on SCU was ALWAYS EXCELLENT! Please call [facility] at [phone] if you have any questions regarding your care. Wishing you continued improvement during your recovery. Your Surgical Care Unit Team Grace Bruce Dana, Denise, Nancy, Peggy, Nu Burnette Stacy, Debbie, Sheila, Lamika, Judy, Lindsey, Suzie, Doris Glez Rochelle, Simona, Cathy, Bonnie, Javon, Angie, Melanie. * Attachments The following attachments cannot be sent through Care Everywhere. * Pneumonia (General Information) (Sol[place] Islander) * COPD (Chronic Obstructive Pulmonary Disease) (General Information) ([place] Islander) documented in this encounter Medications at Time [...] Take 1 capsule by mouth daily omega 6-hic-uab-fish oil 1,000 mg (120 mg-180 mg) capsule [...] total) by mouth nightly at bedtime. 11/16/2022 erythromycin (ILOTYCIN) ophthalmic ointment Apply to both eyes 4 (four) times a day for 5 days 3.5 g 04/01/2023 3 levoFLOXacin (LEVAQUIN) 750 mg tabletIndications: Pneumonia, Community Acquired Take 1 tablet (750 mg total) by mouth daily for 1 day 1 tablet 04/02/2023 3 predniSONE (DELTASONE) 20 mg tabletIndications: COPD Exacerbation Take 2 tablets (40 mg) by mouth daily for 5 days 10 tablet 04/01/2023 3 Trelegy Ellipta 200-62.5-25 mcg inhaler Inhale 1 puff daily 90 each 3 09/14/2022 3 documented as of this encounter Ordered Prescriptions Prescription Sig Dispense Quantity Refills Last Filled Start Date End Date omega 2-qvw-jfr-fish oil 1,000 mg (120 mg-180 mg) capsule Take 1 capsule (1,000 mg total) by mouth 2 (two) times a day 04/01/2023 erythromycin (ILOTYCIN) ophthalmic ointment Apply to both eyes 4 (four) times a day for 5 days 3.5 g 04/01/2023 3 levoFLOXacin (LEVAQUIN) 750 mg tabletIndications: Pneumonia, Community Acquired Take 1 tablet (750 mg total) by mouth daily for 1 day 1 tablet 04/02/2023 3 predniSONE (DELTASONE) 20 mg tabletIndications: COPD Exacerbation Take 2 tablets (40 mg) by mouth daily for 5 days 10 tablet 04/01/2023 3 documented in this encounter Discharge Disposition Disposition Code Departure Means Destination Comment s Discharge to home or self care Car documented in this encounter Progress Notes * Beveryl Medina MD - 03/31/2023 2:17 PM CDT [facility] Hospitalist Service Progress Note Patient Name: Janeth Lake Patient : 1950 Age/Sex: 73 y.o. female Room/Bed: [id number] Admission Date/Time: 03/29/2023 1:04 PM Date: 03/31/2023 Time: 2:17 PM Chief Complaint: Shortness of breath Subjective: Today the patient states she continues to feel congested, has a cough, and is wheezing. No fever orchills. Remains on 6 lpm P2 with sats 91%. Allergies: Allergies Allergen Reactions Ibuprofen Rash Current Medication List: Scheduled Meds:citalopram, 20 mg, oral, Daily clonazePAM, 1 mg, oral, Daily enoxaparin, 40 mg, subcutaneous, Daily-2100 erythromycin, , each eye, QID famotidine, 20 mg, oral, Daily furosemide, 10 mg, oral, Daily ipratropium-albuteroL, 3 mL, nebulization, Q6H GALINA (RT) levoFLOXacin, 750 mg, intravenous, Q24H GALINA loratadine, 10 mg, oral, Daily methylPREDNISolone sodium succinate, 40 mg, intravenous, Q12H GALINA omega-3 fish oil, 1 capsule, oral, BID pramipexole, 1.5 mg, oral, BID primidone, 250 mg, oral, Daily propranoloL, 40 mg, oral, Q8H GALINA rosuvastatin, 10 mg, oral, Nightly Continuous Infusions: PRN Meds: acetaminophen bisacodyl EC magnesium hydroxide mineral oil Objective: Vitals: Vitals: 03/31/23 0504 03/31/23 0617 03/31/23 0826 03/31/23 1414 BP: 103/57 93/52 BP Location: Right arm Patient Position: Lying;HOB 30 degrees Pulse: 71 62 Resp: 16 Temp: 36.3 ??C (97.4 ??F) TempSrc: Tympanic SpO2: 91% 91% 90% Weight: Height: Physical Exam: Gen: awake, no acute distress, pleasant and cooperative Neuro: no focal deficits, CN II-XII grossly intact Eyes: extraocular movement intact, sclerae anicteric HENT: supple, no JVD CV: regular rate and rhythm; no murmurs, rubs, or gallops; no peripheral edema; 2+ pulses in all extremities Pulm: wheezing to auscultation bilaterally; no rales, or rhonchi GI: soft, non-tender, non-distended MSK: no cyanosis, clubbing Skin: warm,dry Psych: normal mood and affect Labs: Lab Results Component Value Date GLUCOSE 99 03/31/2023 CALCIUM 9.6 03/31/2023 SODIUM 137 03/31/2023 POTASSIUM 4.0 03/31/2023 CO2 38 (H) 03/31/2023 CHLORIDE 92 (L) 03/31/2023 BUNSER 11 03/31/2023 CREATININE 0.63 03/31/2023 Lab Results Component Value Date WBC 9.4 03/31/2023 HGB 11.3 (L) 03/31/2023 HCT 35.8 03/31/2023 MCV 98.4 (H) 03/31/2023 LABPLAT 439 (H) 03/31/2023 Pertinent Labs: I have reviewed the pertinent labs. Radiology: Transthoracic Echo (TTE) Complete W Doppler/CF Result Date: 03/30/2023 Narrative: [address] [place] [address] Echocardiogram Report Patient Name: JANETH LAKE M : 1950 Study Date: 03/30/2023 7:29:43 AM Gender: F Tech: Location: [id number] Ref.Provider: MARLENY BLOCK Height(Cm): 168 BSA: 1.9 Weight(Kg): 77.1 Quality: Definity contrast agent used to enhanceendocardial border definition Order Provider: MARLENY BLOCK Procedures: Echocardiographic Report: Transthoracic echocardiogram with complete 2D, M-Mode, color Doppler examination and contrast. Indications: respiratory failure, elevated BNP. Measurements: 2D/M Mode Doppler Measurement Value Normal Range Measurement Value Normal Range EF Teich MM 78.0 [ 55.0 - 70.0 ] percent NAE Vmax 3.57 [ 2.00 - 4.00 ] cm2 LVIDd MM 3.30 [ 3.90 - 5.30 ] cm AV Mean PG 4 [ 2 - 4 ] mmHg LVIDs MM 1.80 [ 2.30 - 3.90 ] cm AV Peak Ari 1.28 [ 1.00 - 1.70 ] m/s LVPWd MM 1.10 [ 0.60 - 1.00 ] cm AV VTI 28.76 cm IVSdMM 1.20 [ 0.60 - 0.90 ] cm LVOT Diam 2.24 [ 1.70 - 2.10 ] cm LA Dimension MM 2.67 [ 2.70 - 3.80 ] cm LVOT Peak Ari 1.16 [ 0.70 - 1.10 ] m/s AoR Diam MM 2.95 [ 2.60 - 3.70 ] cm LVOT VTI 26.06 [ 20.00- 30.00 ] cm MV E Peak Ari 0.62 [ 0.60 - 1.30 ] m/s MV A Peak Ari 0.70 [ 1.00 - 1.20 ] m/s MV Mean PG 1 [ <= 5 ] mmHg MV PHT 44 [ 20 - 100 ] msec MVA 5.00 MV Decel Time 153 [ 104 - 258 ] msec PVPeak Ari 0.75 [ 0.40 - 0.80 ] m/s TR Peak Ari 2.83 [ 1.00 - 2.80 ] m/s TR Peak PG 32 mmHg RVSP 40.00 [ 10.00 - 36.00 ] mmHg E` 0.08 cm/sec E/E` 7.28 [ <= 10.00 ] PA Pressure 40.00 [ 10.00 - 36.00 ] mmHg Findings: Atrial Septum: Normal atrial septum. Left Ventricle: Normal left ventricular systolic function with no focal wall motion abnormalities. Normal left ventricular size. Optison contrast agent used to visually enhance endocardial wall motion and contractility. Normal left ventricularwall thickness. Impaired diastolic relaxation Grade I. Ejection fraction is measured at 76 %. Left Atrium: The left atrium is normal in size. Right Ventricle: Normal right ventricular size. Normal right ventricular systolic function. Right Atrium: The right atrium is normal in size. Aortic Valve: Normal structure of the aortic valve. Mitral Valve: Mild mitral annular calcification. Mild mitral valve regurgitation. Pulmonic Valve: Normal structure of the pulmonic valve. Tricuspid Valve: Mild pulmonary hypertension based on right ventricular systolic pressure. Estimated peak RVSP is 40 mmHg. Mild tricuspid regurgitation. Pericardium: Normal pericardium with no significant pericardial effusion. Aorta: Normal aortic root. Sinus of Valsalva is normal. Aortic arch is normal. Descending aorta isnormal. IVC: Normal size and normal respiratory collapse consistent with normal right atrial pressure (<5 mmHg). Pulmonary Artery: Normal pulmonary artery size. Conclusions: Normal left ventricular systolic function with no focal wall motion abnormalities. Normal left ventricular size. Normal left ventricular wall thickness. Impaired diastolic relaxation Grade I. Ejection fraction is measured at 76 %. Mild mitral annular calcification. Mild mitral valve regurgitation. Mild pulmonary hypertens ion based on right ventricular systolic pressure. Estimated peak RVSP is 40 mmHg. Mild tricuspid regurgitation. Technically difficult study with suboptimal views. Optison contrast agent used to visually enhance endocardial wall motion and contractility. Electronically Signed By: Cruz Espinoza MD 2023-03-30 08:40:[address] Chest PE (CTA) W Contrast Result Date: 03/29/2023 Narrative: EXAM DESCRIPTION: CT CHEST PE (CTA) W CONTRAST REASON FOR STUDY: Chest pain, PE suspected, high prob history of COPD on chronic oxygen, 3 L, presents for evaluation for worsening shortnessof breath. TECHNIQUE: CT angiogram of the chest performed with intravenous contrast using helical sc anning technique with dynamic intravenous contrast injection. Reconstructed coronal and sagittal MPR images reviewed. All images stored on PACS. 3D MIP images rendered on scanning unit and reviewed at time of interpretation. Automated exposure control was used as a dose optimization technique for this examination. CONTRAST TYPE/DOSE: 100mL of IOVERSOL 350 MG IODINE/ML INTRAVENOUS SYRINGE injectedvia left arm IV COMPARISON: Radiograph earlier the same day, CT chest 12/11/2022 REFERENCE: Per ACRwhite paper recommendations, unless otherwise specified no follow-up imaging is recommended for incidental renal and adrenal lesions per consensus recommendations based on imaging criteria. Further lab evaluation could be pursued based on clinical findings. FINDINGS: VASCULATURE: No identified pulmonary emboli. LUNGS: Moderate-sized area of consolidation in the right lower lobe with ground-glass infiltrate present. Infiltrate in the left lung base. Mild pulmonary emphysema. Upper lobe ground-glass opacity seen on the previous exam well visualized on this exam. PLEURA: No effusion. No pneumothorax. MEDIASTINUM/WARREN: There is bilateral hilar lymphadenopathy. A conglomeration of nodes measuresup to about 3 cm x 3 cm. There are prominent mediastinal lymph node measuring up to about 1 cm. HEART: Heart size is normal with no pericardial effusion. AXILLA: No adenopathy. CHEST WALL: No masses.No subcutaneous air. HARDWARE/LINES/TUBES: None. UPPER ABDOMEN: No significant abnormality. MUSCULOSKELETAL: No significant abnormality. OTHER: No significant abnormality. IMPRESSION: No evidence of PE. Moderate-sized area of consolidation in the right lower lobe. There is also some infiltrate in the left lung base. This is likely evidence for an infectious process. There is bilateral hilar rightgreater than left, and mediastinal lymphadenopathy which is nonspecific. Lymphadenopathy on the right has worsened from the previous exam, allowing for differences in technique. While this may be reactive in nature recommend short- term follow-up CT chest to ensure improvement and exclude right hilar neoplastic lesion. THIS IS AN ELECTRONICALLY VERIFIED FINAL REPORT 03/29/2023 5:30 PM - Electronically signed by Carlyle Conway M.D. RW: RENEE Report ID: [id number] Reading Location: [id number] XR Chest 1 Vw Portable Result Date: 03/29/2023 Narrative: EXAM DESCRIPTION: XR CHEST 1 VIEW REASON FOR STUDY: Short of breath Patient is a 73-year-old female with a history of COPD on chronic oxygen, 3 L, presents for evaluation for worsening shortness of breath. States that she was requiring increasing oxygen levels and oxygen levels were still dropping. She notes that she had some watery eyes and congestion that started a couple days ago. No nausea, vomiting or diarrhea. No chest pain. Denies any history of cardiac disease. He is no longer a smoker. Is not anticoagulated. TECHNIQUE: 1 radiographic view(s) of the chest. COMPARISON: 12/11/2022 FINDINGS: The heart size is stable. There are atherosclerotic changes of the aorta. There is mild prominence of pulmonary vasculature. There is no definite evidence of a pneumothorax. There are patchy bilateral perihilar and bibasilar airspace opacities. There is suggestion of a small left pleural effusion. There is a stable calcified granuloma in the upper left lung. The osseous structures are acutely grossly stable. IMPRESSION: Mild prominence of pulmonary vasculature with suggestion of a small left pleural effusion. Patchy bilateral airspace opacities, which may be related to subsegmental atelectasis/scarring, mild pulmonary edema, and/or developing airspace disease. THIS IS AN ELECTRONICALLY VERIFIED FINAL REPORT 03/29/2023 3:10 PM - Electronically signed by Esau Patel D.O. PS: PS Report ID: [id number] Reading Location: [id number] ECG 12 lead Result Date: 03/29/2023 Narrative: Vent Rate: 66 bpm RR Interval: 909 msec GA Interval: 147 msec QRS Duration: 85 msec QT Interval: 398 msec QTC Interval: 411 msec P-R-T [place]: 53 - 48 - 47 degrees SINUS RHYTHM NORMAL ECG Electronically Signed By: Cruz Espinoza MD Microbiology: 03/30/23 Sputum cx: Contaminated 03/30/23 Sputum AFB culture and sputum cytology: In process 03/30/23 Respiratory pathogen panel: Negative 03/29/23 MRSA PCR Nasal: Not detected 03/29/23 Blood cx: NGTD X 2 03/29/23 MRSA PCR Nasal: Negative ASSESSMENT AND PLAN: Principal Problem: COPD exacerbation (HCC) Acute on chronic hypoxemic and hypercapnic respiratory failure -currently on 6 L and hope to wean back to baseline of 3 L -treat COPD and infection. - ECHO noted with normal EF 76%, and grade 1 diastolic dysfunction COPD exacerbation - PO steroids changed to iv Solumedrol 40 mg bid -Also on Aerobika for airway clearance and incentive spirometry per pulm, and DuoNeb q.6 hours Pneumonia likely Gram-positive organism -on IV Levaquin daily. -sputum AFB is in process -blood cultures negative to date Lymphadenopathy -will benefit from a repeat outpatient CT chest to ensure resolution of lymphadenopathy and opacities considering risk of malignancy due to tobacco use. Pulmonary consult appreciated. Conjunctivitis -erythromycin ointment qid Essential tremor -continue propranolol q8h Depression and anxiety disorder -stable. Resume daily celexa and klonopin DVT PPx Lovenox MDM: Moderate complexity Beverly Jacob MD Internal Medicine - Hospitalist [facility] - Adult Hospitalist Service 03/31/2023 2:17 PM * Ahsan Conway [facility] - 03/30/2023 6:08 AM CDT Pharmacokinetic Consult - Vancomycin Dosing-Completed Vancomycin discontinued 03/30 by . Vanco levels have been discontinued. Pharmacy monitoring is complete. Thank you, Ahsan Conway [facility] Pharmacy department [phone] * Arianne Daniel RP - 03/29/2023 5:57 PM CDT Pharmacokinetic Consult - Vancomycin Dosing Janeth Lake has been consulted for vancomycin dosing for community acquired pneumonia. [place] 1250 mg IV every 24 hours per protocol for weight of 77.1 kg and Serum creatinine: 0.62 mg/dL 03/29/23 1323 Estimated creatinine clearance: 58 mL/min . Goal trough 10-20. Vanco trough ordered for 1700 03/31/23. Pharmacy will monitor renal function daily and adjust dosing if necessary. Recent Labs Lab Units 03/29/23 1323 WBC K/cumm 8.1 HEMOGLOBIN g/dL 11.8* HEMATOCRIT % 37.4 PLATELETS K/cumm 386 Thank you, Arianne Daniel [facility] Pharmacy department [phone] documented in this encounter H&P Notes * Marleny Block MD - 03/30/2023 5:11 AM CDT History and Physical CHIEF COMPLAINT Chief Complaint Patient presents with Shortness of Breath HPI: 73-year-old female with history of COPD on 3 L admitted due to complaints of shortness of breath that has been going on for few days. She reports chronic productive clear cough but has no hemoptysis.She denies any sick contact, runny nose or sore throat. Also, she has had watery and itchy eyes andhas felt congested. She does not have diarrhea, nausea, vomiting, chest pain, or leg swelling. She has not smoked cigarettes in over a year. Past Medical History: Diagnosis Date Cancer (CMS/HCC) [...] by mouth 2 (two) times a day 03/29/2023 cephalexin (KEFLEX) 500 mg capsule Take 1 capsule (500 mg total) by mouth 3 (three) times a day. (Patient not taking: Reported on 09/14/2022) 21 capsule 0 citalopram (CeleXA) 20 mg tablet Take 1 tablet (20 mg total) by mouth daily 03/29/2023 clonazePAM (KlonoPIN) 1 mg tablet Take 1 tablet (1 mg total) by mouth daily 03/29/[address] (NexIUM) 20 mg capsule Take 1 capsule (20 mg total) by mouth daily before breakfast03/29/2023 furosemide (LASIX) 20 mg tablet Take 0.5 tablets (10 mg total) by mouth daily 03/29/2023 multivitamin capsule Take 1 capsule by mouth daily 03/29/2023 omega 9-njo-kby-fish oil 1,000 mg (120 mg-180 mg) capsule Take 1 capsule (1,000 mg total) by mouth 3 (three) times a day 03/29/2023 pramipexole (MIRAPEX) 1.5 mg tablet Take 1 tablet (1.5 mg total) by mouth 2 (two) times a day 03/29/2023 primidone (MYSOLINE) 250 mg tablet Take 1 tablet (250 mg total) by mouth daily 03/29/2023 propranolol LA (INDERAL LA) 60 mg 24 hr capsule Take 1 capsule (60 mg total) by mouth 2 (two) timesa day 03/29/2023 rosuvastatin (CRESTOR) 10 mg tablet Take 1 tablet (10 mg total) by mouth nightly at bedtime. 03/28/2023 Trelegy Ellipta 200-62.5-25 mcg inhaler Inhale 1 puff daily 90 each 3 03/29/2023 Allergies Allergen Reactions Ibuprofen Rash Current Facility-Administered Medications Medication Dose Route Frequency Provider Last Rate Last Admin acetaminophen (TYLENOL) tablet 650 mg 650 mg oral Q4H PRN Marleny Block MD bisacodyl EC (DULCOLAX EC) tablet 10 mg 10 mg oral Daily PRN Marleny Block MD citalopram (CeleXA) tablet 20 mg 20 mg oral Daily Marleny Block MD clonazePAM (KlonoPIN) tablet 1 mg 1 mg oral Daily Marleny Block MD enoxaparin (LOVENOX) syringe 40 mg 40 mg subcutaneous Daily-2100 Marleny Block MD 40 mg at03/29/232315 erythromycin (ILOTYCIN) 5 mg/gram (0.5 %) ophthalmic ointment each eye QID Marleny Block MD famotidine (PEPCID) tablet 20 mg 20 mg oral Daily Marleny Block MD furosemide (LASIX) 10 mg/mL injection 40 mg 40 mg intravenous Daily Marleny Block MD [Held by Provider] furosemide (LASIX) tablet 10 mg 10 mg oral Daily Marleny Block MD ipratropium-albuteroL (DUO-NEB) 0.5-2.5 mg/3 mL nebulizer solution 3 mL 3 mL nebulization Q6H GALINA (RT) Shane Patel MD 3 mL at 03/30/23 0116 levoFLOXacin (LEVAQUIN) 750 mg/150 mL in dextrose 5% (premix) 750 mg 750 mg intravenous Q24H GALINA Tripp Hernandez MD Stopped at 03/29/232039 magnesium hydroxide (MILK OF MAGNESIA) 80 mg/mL (33.3 mg/mL as elemental magnesium) oral [id number] mL 30 mL oral Daily PRN Marleny Block MD 30 mL at 03/29/232315 mineral oil (FLEET MINERAL OIL) enema 133 mL 1 enema rectal Daily PRN Marleny Block MD omega-3 fatty acids (LOVAZA) capsule 1 capsule 1 capsule oral BID Marleny Block MD 1 capsule at 03/29/232315 pramipexole (MIRAPEX) tablet 1.5 mg 1.5 mg oral BID Marleny Block MD 1.5 mg at 03/29/23 233 predniSONE (DELTASONE) tablet 40 mg 40 mg oral Daily Marleny Block MD primidone (MYSOLINE) tablet 250 mg 250 mg oral Daily Marleny Block MD propranoloL (INDERAL) tablet 40 mg 40 mg oral Q8H GALINA Marleny Block MD 40 mg at 03/30/23 0530 rosuvastatin (CRESTOR) tablet 10 mg 10 mg oral Nightly Marleny Block MD 10 mg at 03/29/23 2316 Social History Tobacco Use Smoking status: Former Packs/day: 1.00 Years: 50.00 Pack years: 50.00 Types: Cigarettes Quit date: 05/18/2022 Years since quittin.8 Smokeless tobacco: Never Substance and Sexual Activity [...] Paternal Grandfather Scleroderma Daughter Review of Systems: 1. Constitutional Denies: weight loss, weight gain, fever, chills, night sweats, fatigue 2. Eyes Denies: change in vision, double vision, eye pain, eye discharge, icterus 3. ENT Denies: change in hearing, ear pain, ear discharge, nose bleed, nasal congestion, sore throat 4. Respiratory Denies: wheezing, hemoptysis 5. CV Denies: chest pain, palpitations, syncope, edema 6. GI Denies: abdominal pain, decreased appetite, nausea, vomiting, change in bowel habitus, diarrhea, constipation, melena, BRBPR 7. Denies: dysuria, frequency, hematuria, nocturia, urgency 8. Metabolic Denies: cold intolerance, heat intolerance, polyphagia, polydipsia 9. Neurologic Denies: headache, dizziness, seizure, change in mental status, focal weakness, focal numbness 10. Musculoskeletal Denies: myalgia, joint pain, joint redness, joint swelling, extremity pain 11. Hematologic Denies: bleeding, bruising, hematoma, lymphadenopathy, icterus OBJECTIVE Vitals: Arrival Vitals Temp 03/29/23 1255 36.9 ??C (98.5 ??F) Pulse 03/29/23 1255 64 Resp 03/29/23 1255 28 BP 03/29/23 1255 102/60 SpO2 03/29/23 1255 (!) 87 % Temp src 03/29/23 1255 Temporal Heart Rate Source 03/29/23 2314 Pulse Oximetry Patient Position 03/29/235 Lying BP Location 03/29/235 Right arm FiO2 (%) -- 24hr Min/Max: Temp Min: 36.7 ??C (98 ??F) Max: 36.9 ??C (98.5 ??F) Pulse Min: 60 Max: 70 BP Min: 99/54 Max: 127/57 Resp Min: 15 Max: 28 SpO2 Min: 87 % Max: 95 % Most Recent : Vitals: 03/30/23 0530 BP: 127/57 Pulse: 67 Resp: Temp: SpO2: Intake/Output Summary (Last 24 hours) at 03/30/2023 0607 Last data filed at 03/30/2023 0530 Gross per 24 hour Intake 240 ml Output 275 ml Net -35 ml Physical exam: General: awake, alert, oriented to person, place, and time. No acute distress Eyes: no scleral icterus, extraocular motion is intact, pupils are equal, bilateral conjunctival erythema Neck: supple Pharynx: No gross oral lesion, tongue midline, mucosa moist Lungs: Has diffuse end-expiratory wheezes Heart: normal rate, normal rhythm, normal s1 and s2, no murmur noted Abd: present bowel sounds, Non Tender, Non distended Extremities: No gross edema, strength exam is 5/5 and symmetric Neuro: CN 2-12 is grossly intact, has no focal weakness Musculoskeletal: no gross joint erythema, edema, tenderness Psychiatric: normal affect and mood Lab/Radiology/Diagnostic Review: Recent Results (from the past 24 hour(s)) CBC with auto differential Collection Time: 03/29/23 1:23 PM Result Value Ref Range WBC 8.1 3.8 - 9.9 K/cumm Hgb 11.8 (L) 11.9 - 15.5 g/dL Hct 37.4 35.6 - 45.5 % Plt 386 150 - 400 K/cumm MPV 8.4 (L) 9.1 - 12.3 fL RBC 3.80 (L) 3.90 - 5.20 M/cumm MCV 98.4 (H) 81.3 - 96.4 fL MCH 31.1 27.1 - 33.3 pg MCHC 31.6 (L) 32.3 - 35.7 g/dL RDW CV 13.4 11.1 - 14.9 % RDW SD 48.9 (H) 35.7 - 48.1 fL NRBC abs 0.00 0.00 - 0.01 K/cumm Comprehensive metabolic panel Collection Time: 03/29/23 1:23 PM Result Value Ref Range Sodium 137 135 - 145 mmol/L Potassium, pl 4.2 3.3 - 4.9 mmol/L Chloride 95 (L) 97 - 110 mmol/L CO2 32 22 - 32 mmol/L Anion gap 10 2 - 15 mmol/L BUN 8 8 - 25 mg/dL Creatinine 0.62 0.60 - 1.10 mg/dL Glucose 120 70 - 199 mg/dL Calcium 9.4 8.5 - 10.3 mg/dL Bilirubin, total <0.2 0.1 - 1.2 mg/dL Protein, pl 6.7 6.5 - 8.5 g/dL Albumin 3.6 3.5 - 5.0 g/dL Alk phos 96 40 - 130 Units/L ALT 21 7 - 45 Units/L AST 24 10 - 45 Units/L Troponin T high-sensitivity series (baseline, 2hr, 4hr, 6hr) Collection Time: 03/29/23 1:23 PM Result Value Ref Range Trop T hs 10 <=14 ng/L Creatine kinase (CK), total Collection Time: 03/29/23 1:23 PM Result Value Ref Range CK 42 30 - 200 Units/L Pro B-type natriuretic peptide Collection Time: 03/29/23 1:23 PM Result Value Ref Range NT-proBNP 2,365 (H) <=300 pg/mL Differential, auto Collection Time: 03/29/23 1:23 PM Result Value Ref Range Neutrophil abs 5.6 1.7 - 6.5 K/cumm Imm gran abs 0.0 0.0 - 0.1 K/cumm Lymphocyte abs 1.9 0.8 - 3.3 K/cumm Monocyte abs 0.4 0.2 - 0.8 K/cumm Eosinophil abs 0.1 0.0 - 0.5 K/cumm Basophil abs 0.1 0.0 - 0.1 K/cumm Neutrophil pct 69.9 % Imm gran pct 0.4 % Lymphocyte pct 23.1 % Monocyte pct 5.0 % Eosinophil pct 0.6 % Basophil pct 1.0 % eGFR Collection Time: 03/29/23 1:23 PM Result Value Ref Range eGFR 95 mL/min/1.73 m2 Blood gas, arterial Collection Time: 03/29/23 1:33 PM Result Value Ref Range pH, Art 7.34 (L) 7.35 - 7.45 PCO2, Arterial 66 (Critical) 35 - 45 mmHg PO2, Arterial 73 (L) 83 - 108 mmHg HCO3 Art (Calculated) 35 (H) 20 - 30 mmol/L BE, art 8 mmol/L O2 Sat Art (Measured) 94 90 - 95 % Troponin T high-sensitivity 2-hour Collection Time: 03/29/23 4:51 PM Result Value Ref Range Trop T hs 9 <=14 ng/L Trop T hs delta See Comment ng/L Trop T hs pct delta See Comment % Trop T hs interp See Comment Troponin T high-sensitivity 4-hour Collection Time: 03/29/23 6:19 PM Result Value Ref Range Trop T hs 9 <=14 ng/L Trop T hs delta -1 ng/L Trop T hs interp Insignificant Sepsis Lactate w/ Reflex Collection Time: 03/29/23 6:19 PM Result Value Ref Range Sepsis Lactate 1.0 0.7 - 2.0 mmol/L MRSA Only (Staphylococcs aureus) PCR Nasal Collection Time: 03/29/23 6:19 PM Specimen: Nasal Result Value Ref Range PCR Scrn, Methicillin resistant Staphylococcus aureus (MRSA) Not Detected Not Detected Troponin T high-sensitivity 6-hour Collection Time: 03/29/23 9:56 PM Result Value Ref Range Trop T hs 8 <=14 ng/L Trop T hs delta See Comment ng/L Trop T hs pct delta See Comment % Trop T hs interp See Comment MRSA Only (Staphylococcs aureus) PCR Nasal Collection Time: 03/29/23 11:05 PM Specimen: Nasal Result Value Ref Range PCR Scrn, Methicillin resistant Staphylococcus aureus (MRSA) Not Detected Not Detected EKG: normal sinus rhythm CT Chest PE (CTA) W Contrast Result Date: 03/29/2023 Narrative: EXAM DESCRIPTION: CT CHEST PE (CTA) W CONTRAST REASON FOR STUDY: Chest pain, PE suspected, high prob history of COPD on chronic oxygen, 3 L, presents for evaluation for worsening shortnessof breath. TECHNIQUE: CT angiogram of the chest performed with intravenous contrast using helical sc anning technique with dynamic intravenous contrast injection. Reconstructed coronal and sagittal MPR images reviewed. All images stored on PACS. 3D MIP images rendered on scanning unit and reviewed at time of interpretation. Automated exposure control was used as a dose optimization technique for this examination. CONTRAST TYPE/DOSE: 100mL of IOVERSOL 350 MG IODINE/ML INTRAVENOUS SYRINGE injectedvia left arm IV COMPARISON: Radiograph earlier the same day, CT chest 12/11/2022 REFERENCE: Per ACRwhite paper recommendations, unless otherwise specified no follow-up imaging is recommended for incidental renal and adrenal lesions per consensus recommendations based on imaging criteria. Further lab evaluation could be pursued based on clinical findings. FINDINGS: VASCULATURE: No identified pulmonary emboli. LUNGS: Moderate-sized area of consolidation in the right lower lobe with ground-glass infiltrate present. Infiltrate in the left lung base. Mild pulmonary emphysema. Upper lobe ground-glass opacity seen on the previous exam well visualized on this exam. PLEURA: No effusion. No pneumothorax. MEDIASTINUM/WARREN: There is bilateral hilar lymphadenopathy. A conglomeration of nodes measuresup to about 3 cm x 3 cm. There are prominent mediastinal lymph node measuring up to about 1 cm. HEART: Heart size is normal with no pericardial effusion. AXILLA: No adenopathy. CHEST WALL: No masses.No subcutaneous air. HARDWARE/LINES/TUBES: None. UPPER ABDOMEN: No significant abnormality. MUSCULOSKELETAL: No significant abnormality. OTHER: No significant abnormality. IMPRESSION: No evidence of PE. Moderate-sized area of consolidation in the right lower lobe. There is also some infiltrate in the left lung base. This is likely evidence for an infectious process. There is bilateral hilar rightgreater than left, and mediastinal lymphadenopathy which is nonspecific. Lymphadenopathy on the right has worsened from the previous exam, allowing for differences in technique. While this may be reactive in nature recommend short- term follow-up CT chest to ensure improvement and exclude right hilar neoplastic lesion. THIS IS AN ELECTRONICALLY VERIFIED FINAL REPORT 03/29/2023 5:30 PM - Electronically signed by Carlyle Conway M.D. RW: RENEE Report ID: [id number] Reading Location: [id number] XR Chest 1 Vw Portable Result Date: 03/29/2023 Narrative: EXAM DESCRIPTION: XR CHEST 1 VIEW REASON FOR STUDY: Short of breath Patient is a 73-year-old female with a history of COPD on chronic oxygen, 3 L, presents for evaluation for worsening shortness of breath. States that she was requiring increasing oxygen levels and oxygen levels were still dropping. She notes that she had some watery eyes and congestion that started a couple days ago. No nausea, vomiting or diarrhea. No chest pain. Denies any history of cardiac disease. He is no longer a smoker. Is not anticoagulated. TECHNIQUE: 1 radiographic view(s) of the chest. COMPARISON: 12/11/2022 FINDINGS: The heart size is stable. There are atherosclerotic changes of the aorta. There is mild prominence of pulmonary vasculature. There is no definite evidence of a pneumothorax. There are patchy bilateral perihilar and bibasilar airspace opacities. There is suggestion of a small left pleural effusion. There is a stable calcified granuloma in the upper left lung. The osseous structures are acutely grossly stable. IMPRESSION: Mild prominence of pulmonary vasculature with suggestion of a small left pleural effusion. Patchy bilateral airspace opacities, which may be related to subsegmental atelectasis/scarring, mild pulmonary edema, and/or developing airspace disease. THIS IS AN ELECTRONICALLY VERIFIED FINAL REPORT 03/29/2023 3:10 PM - Electronically signed by Esau Patel D.O. PS: PS Report ID: [id number] Reading Location: [place] [id number] ECG 12 lead Result Date: 03/29/2023 Narrative: Vent Rate: 66 bpm RR Interval: 909 msec GA Interval: 147 msec QRS Duration: 85 msec QT Interval: 398 msec QTC Interval: 411 msec P-R-T [place]: 53 - 48 - 47 degrees SINUS RHYTHM NORMAL ECG Electronically Signed By: Cruz Espinoza MD A/P Acute on chronic hypoxemic and hypercapnic respiratory failure -currently on 6 L and hope to wean back to baseline of 3 L -treat COPD and infection. Empiric IV Lasix due to elevated proBNP with no baseline for comparison. Will obtain echocardiogram to assess LV function COPD exacerbation -prednisone 40 mg daily and DuoNeb q.6 hours Pneumonia likely Gram-positive organism -on IV Levaquin daily. Stop IV vancomycin due to negative MRSA PCR -blood cultures pending Lymphadenopathy -will benefit from a repeat outpatient CT chest to ensure resolution of lymphadenopathy and opacities considering risk of malignancy due to tobacco use. Pulmonary consult. Conjunctivitis -erythromycin ointment qid Essential tremor -continue propranolol q8h Depression and anxiety disorder -stable. Resume daily celexa and klonopin SC Lovenox for vte prophylaxis Code status: Full Anticipated length of stay is greater than 2 midnights My total encounter time was 75 minutes which was spent in the activities documented in the note. This includes time spent prior to the visit and after the visit in direct care of the patient. This time does not include time spent in any separately reportable services. Voice recognition software [employer] was used dictate and transcribe this document. Manager Strategy & Account variances may occur. Despite proofreading, typographical errors may occur. Marleny Block MD documented in this encounter Consult Notes * Efren Villanueva MD - 03/30/2023 12:09 PM CDTAssociated Order(s): IP CONSULT TO PULMONOLOGY PULMONARY CONSULT NOTE Visit Date: 03/30/23 Consulting Physician: Dr. Medina Reason for Consult: Acute on chronic respiratory failure Chief Complaint: Cough, dyspnea and sputum production Interval history: She is producing less sputum now that she was previously. She remains on 6L. Encouraged use of airway clearance and IS. She denies any fevers or chest pain HPI: Patient is a 73 y.o. female w/ PMH of COPD and chronic respiratory failure on 3 L who presented forincreased cough, dyspnea and sputum production. She had previously been doing fairly well at home on Trelegy once daily. She began noting increased dyspnea and was noting hypoxemia even with use of her supplemental oxygen at home. She has also had increased sputum production and wheezing. She presented to the emergency department with hypoxemia. CT scan of the chest with PE protocol was negative for pulmonary embolism but was indicative of patchy ground-glass and consolidative opacities in the bilateral lower lobes right greater than left. There is also perhaps some soft tissue thickening around the right hilum suggestive of lymphadenopathy. Her blood gas was indicative of a mild acute on chronic hypercapnia, 7.34/66/73. The patient was started on empiric antimicrobial therapy and Pulmonary was consulted for further evaluation Past Medical History: Diagnosis Date Cancer (CMS/HCC) (HCC) Skin BCC COPD (chronic obstructive pulmonary disease) (HCC) Deviated nasal septum Occasional tremors Hands and Head, going to see Neurologist Peptic ulceration Tachycardia Family History Problem Relation Age of Onset Cancer Mother Hypertension Father Parkinsonism Father Heart disease Paternal Grandfather Scleroderma Daughter Social History: The patient is a former smoker. She quit in April of 2022 and previously smoked 1 pack per day for almost 50 years Review of Systems: Pertinent positives notes in HPI. Otherwise a 10 pt review of systems is negative. OBJECTIVE: Physical Exam: Vitals: 03/30/23 0116 03/30/23 0530 03/30/23 0634 03/30/23 0854 BP: 127/57 98/65 BP Location: Right arm Patient Position: Lying Pulse: 67 64 Resp: 18 Temp: 36.6 ??C (97.8 ??F) TempSrc: Temporal SpO2: 95% 93% 90% Weight: Height: General: appears comfortable in no apparent distress Eyes: anicteric, no redness or drainage, EOMI Neck: no thyromegaly or lymphadenopathy Cardiovascular: regular rate and rhythm, no murmurs, no edema or JVD Respiratory: clear to auscultation bilaterally, non labored Gastrointestinal: abdomen is soft and non-tender, + bowel sounds Musculoskeletal: no joint swelling or tenderness Neurologic: No focal deficits Skin: warm and dry Data Review: Lab Results Component Value Date ALBUMIN 3.6 03/29/2023 BUNSER 11 03/30/2023 CALCIUM 9.5 03/30/2023 CO2 35 (H) 03/30/2023 CHLORIDE 94 (L) 03/30/2023 CREATININE 0.59 (L) 03/30/2023 GLUCOSE 98 03/30/2023 POTASSIUM 4.1 03/30/2023 SODIUM 136 03/30/2023 BILITOT <0.2 03/29/2023 PROT 6.7 03/29/2023 ALT 21 03/29/2023 AST 24 03/29/2023 ALKPHOS 96 03/29/2023 My interpretation of the patient's CT scan is indicative of nodular ground-glass and consolidative opacities in the bilateral lower lobe significantly greater on the right. There is bronchial wall thickening and mucus plugging. There is prominent soft tissue within the right hilum likely representing reactive lymphadenopathy. This is new from prior imaging Pulmonary Functions Testing Results: 10/03/2022: Personally reviewed and notable for moderate to severe obstruction and severe air trapping. Mild diffusion impairment ASSESSMENT Acute on chronic respiratory failure with hypoxia and hypercapnia secondary to community-acquired pneumonia Emphysema PLAN The patient has a similar appearing pneumonia when compared to her hospitalization last year There are some indications of a possible chronic infection Recommend obtaining a sputum culture and AFB if possible Continue empiric antimicrobial therapy, levofloxacin is a good choice for conversion to an oral regimen I provided the patient with incentive spirometry and Aerobika for airway clearance Continue scheduled bronchodilators, recommend 5 days of systemic corticosteroids Distribution of her opacities is curious, no suggestion of aspiration per history, but this is not excluded titrate oxygen for goal SpO2 > 90%, currently on 6 L, mild acute on chronic hypercapnia, she does not have a strong indication for noninvasive positive- pressure therapy at this time Pulmonary hygiene as feasible: incentive spirometry, PT/OT, early mobility/ambulation DVT prophylaxis: Lovenox Efren Villanueva MD There may be syntax/grammatical errors in this note due to the use of voice recognition software. documented in this encounter Nursing Notes * Ria Ferrell RN - 04/01/2023 12:13 PM CDT 1200-Reviewed discharge instructions with patient, answered all questions. All personal belongings discharged with patient. Transported per wheelchair to [facility] emergency department where picked up. Nurse assisted patient into car. documented in this encounter ED Notes * Tripp Hernandez MD - 03/29/2023 1:11 PM CDT HPI Chief Complaint Patient presents with Shortness of Breath HPI Patient is a 73-year-old female with a history of COPD on chronic oxygen, 3 L, presents for evaluation for worsening shortness of breath. States that she was requiring increasing oxygen levels and oxygen levels were still dropping. She notes that she had some watery eyes and congestion that starteda couple days ago. No nausea, vomiting or diarrhea. No chest pain. Denies any history of cardiac disease. He is no longer a smoker. Is not anticoagulated. Patient History: Patient Active Problem List Diagnosis Date Noted COPD exacerbation (HCC) 03/29/2023 Oral lesion 06/21/2018 [...] History Tobacco Use Smoking status: Former Packs/day: 1.00 Years: 50.00 Pack years: 50.00 Types: Cigarettes Quit date: 05/18/2022 Years since quittin.8 Smokeless tobacco: Never Vaping Use Vaping status: None Substance and Sexual Activity Alcohol use: No Drug use: Not Currently Types: Tobacco Sexual activity: Defer Social History Social History Narrative Not on file Review of Systems Review of Systems All other systems reviewed and are negative. Physical Exam ED Triage Vitals [03/29/23 1255] Temp Pulse Resp BP SpO2 36.9 ??C (98.5 ??F) 64 28 102/60 (!) 87 % Temp src Heart Rate Source Patient Position BP Location FiO2 (%) Temporal -- -- -- -- Height Height Method Weight Weight Method 1.651 m (5' 5 ) Stated 77.1 kg (170 lb) Stated Physical Exam Constitutional: General: She is not in acute distress. Appearance: Normal appearance. HENT: Head: Normocephalic and atraumatic. Eyes: Extraocular Movements: Extraocular movements intact. Conjunctiva/sclera: Conjunctivae normal. Pupils: Pupils are equal, round, and reactive to light. Cardiovascular: Rate and Rhythm: Normal rate. Pulmonary: Effort: Pulmonary effort is normal. Tachypnea (with conversational dyspnea) present. Breath sounds: Wheezing present. No decreased breath sounds. Comments: On 6 L of oxygen via nasal cannula Musculoskeletal: General: Normal range of motion. Cervical back: Normal range of motion. Skin: General: Skin is warm and dry. Neurological: General: No focal deficit present. Mental Status: She is alert and oriented to person, place, and time. Psychiatric: Mood and Affect: Mood normal. MDM Please refer to medically appropriate history and exam required to communicate complexity of problems, MDM, and future medical/legal needs Differential diagnosis for this patient is broad and includes but is not limited to: myocardial infarction, ACS, pneumothorax, asthma, reactive airway disease, COPD, medication noncompliance, viral infection/URI, pneumonia, CHF, foreign body aspiration, aspiration pneumonitis, influenza. Problems addressed: The patient presents with an acute illness that poses a threat to life or bodily function that may require escalation in level of care. Data reviewed included: -I have personally reviewed external notes that were available to me including but not limited to: old clinical documents that were available to me, and prior hospitalization reports that were available to me and prior testing that the patient has had done that was available to me for review - reviewed external notes regarding the patient's prior medical care to assist with determining work-up inthe emergency department and assist in determining further treatment and management of patient's current condition -I discussed with an independent historian: spouse AND -I independently interpreted the tests performed in the emergency department including: laboratory workup reviewed as noted in the ED course -an independent interpretation of the ECG: time 1322, rate 66, normal sinus rhythm, no ST elevations or depression, no T wave changes, normal intervals -an independent interpretation of x-ray was performed by me as a preliminary read, please see the final radiology read for final report Risks of treatment included: -Drug therapy requiring intensive monitoring for toxicity -Decision regarding hospitalization or escalation of hospital-level care Social Determinants of health that impacted today's care included health literacy regarding the patient's medical problems. The patient has chronic illnesses that impacted care today as noted above Patient's disposition as noted in the ED course My independent interpretations of studies performed in the ED are noted in the MDM I reviewed available external records that I was aware of and that were available to me in the emergency department I considered other testing and lab workup and performed necessary and available lab testing and imaging tests to evaluate for life threatening emergencies in the emergency department, and lab testingand imaging studies that were necessary and available to me to evaluate the patient's complaints int emergency department were performed Medical Decision Making Amount and/or Complexity of Data Reviewed Labs: ordered. Radiology: ordered. Decision-making details documented in ED Course. ECG/medicine tests: ordered. Risk Prescription drug management. Decision regarding hospitalization. ED Course as of 03/29/23 1805 Time: 03/29 1313 Comment: Duonebs, steroids ordered. CXR, labs, ECG. By: Tripp Hernandez MD Time: 03/29 1453 Value: XR Chest 1 Vw Portable Comment: (Reviewed) By: Tripp Hernandez MD Time: 03/29 1521 Value: XR Chest 1 Vw Portable Comment: (Reviewed) By: Tripp Hernandez MD Time: 03/29 6673 Comment: CT PE reviewed, no signs of pulmonary embolism. There is multifocal pneumonia noted, we will send blood cultures and started on vancomycin and Levaquin IV. There is also extensive lymphadenopathy, patient is a smoker, discussed the possibility of lung cancer and will require further workupand evaluation by Pulmonary on admission. Patient stated understanding. By: Tripp Hernandez MD Time: 03/29 1759 Comment: Discussed with Dr Patel, agrees to admission. By: Tripp Hernandez MD Final diagnoses: COPD exacerbation (HCC) Multifocal pneumonia Lymphadenopathy Hypoxia Tripp Hernandez MD 03/29/231805 * Miriam Prater RN - 03/29/2023 12:53 PM CDT Pt to triage for c/o low oxygen levels. Pt reports her oxygen was 80% at home on her normal 3 L NC.Pt put oxygen up to 6L and is sp02 is now 87%. Pt has hx of COPD. documented in this encounter Miscellaneous Notes * Plan of Care - Ria Ferrell RN - 04/01/2023 11:18 AM CDT Goals: Clinical Goals for the Shift: vs stable, adequate breath, hemodinamically stable, free from falls or injuries. Summary: planned discharge today * Plan of Care - Ria Ferrell RN - 04/01/2023 10:03 AM CDT Goals: Clinical Goals for the Shift: vs stable, adequate breath, hemodinamically stable, free from falls or injuries. Summary: VSS, adequate pain control, free from falls/injury * Plan of Care - Jahaira Prater RN - 04/01/2023 3:25 AM CDT Problem: Health Behavior: Goal: Understanding of discharge needs will improve Outcome: Progressing Problem: Activity: Goal: Ability to implement measures to reduce episodes of fatigue will improve Outcome: Progressing Goal: Will verbalize the importance of balancing activity with adequate rest periods Outcome: Progressing Problem: Lack of Knowledge: Goal: Knowledge of disease or condition will improve Outcome: Progressing Goal: Knowledge of the prescribed therapeutic regimen will improve Outcome: Progressing Problem: Coping: Goal: Ability to identify and develop effective coping behavior will improve Outcome: Progressing Goal: Level of anxiety will decrease Outcome: Progressing Problem: Health Behavior: Goal: Ability to manage health-related needs will improve Outcome: Progressing Problem: Nutritional: Goal: Maintenance of adequate nutrition will improve Outcome: Progressing Problem: Respiratory: Goal: Ability to maintain a clear airway will improve Outcome: Progressing Goal: Levels of oxygenation will improve Outcome: Progressing Goal: Ability to maintain adequate ventilation will improve Outcome: Progressing Goal: Complications related to the disease process, condition or treatment will be avoided or minimized Outcome: Progressing Problem: Sensory: Goal: Expressions of feelings of enhanced comfort will increase Outcome: Progressing Problem: Activity: Goal: Ability to tolerate increased activity will improve Outcome: Progressing Problem: Lack of Knowledge: Goal: Verbalization of understanding the information provided will improve Outcome: Progressing Problem: Physical Regulation: Goal: Ability to maintain a body temperature in the normal range will improve Outcome: Progressing Problem: Respiratory: Goal: Respiratory status will improve Outcome: Progressing Goal: Ability to maintain a clear airway will improve Outcome: Progressing Goal: Pain level will decrease Outcome: Progressing Problem: Lack of Knowledge Goal: Knowledge of risk factors and measures for prevention of condition will improve Outcome: Progressing Problem: Physical Regulation Goal: Spread of further infection will be prevented Outcome: Progressing Goal: Complications related to the disease process, condition, or treatment will be avoided or minimized Outcome: Progressing Goals: Clinical Goals for the Shift: vs stable, adequate breath, hemodinamically stable, free from falls or injuries. Summary: vs stable, o2 cont per nc and adequate breath maintained, acapella and incentive spirometer encouraged frequently, labs as ordered, iv antibiotic cont, free from falls or injuries, call light in reach. * Plan of Care - Ria Ferrell RN - 03/31/2023 4:45 PM CDT Goals: Clinical Goals for the Shift: vs stable, adequate breath, hemodinamically stable, free from falls or injuries Summary: VSS, adequate pain control, free from falls/injury * Plan of Care - Jahaira Prater RN - 03/31/2023 3:12 AM CDT Problem: Health Behavior: Goal: Understanding of discharge needs will improve Outcome: Progressing Problem: Activity: Goal: Ability to implement measures to reduce episodes of fatigue will improve Outcome: Progressing Goal: Will verbalize the importance of balancing activity with adequate rest periods Outcome: Progressing Problem: Lack of Knowledge: Goal: Knowledge of disease or condition will improve Outcome: Progressing Goal: Knowledge of the prescribed therapeutic regimen will improve Outcome: Progressing Problem: Coping: Goal: Ability to identify and develop effective coping behavior will improve Outcome: Progressing Goal: Level of anxiety will decrease Outcome: Progressing Problem: Health Behavior: Goal: Ability to manage health-related needs will improve Outcome: Progressing Problem: Nutritional: Goal: Maintenance of adequate nutrition will improve Outcome: Progressing Problem: Respiratory: Goal: Ability to maintain a clear airway will improve Outcome: Progressing Goal: Levels of oxygenation will improve Outcome: Progressing Goal: Ability to maintain adequate ventilation will improve Outcome: Progressing Goal: Complications related to the disease process, condition or treatment will be avoided or minimized Outcome: Progressing Problem: Sensory: Goal: Expressions of feelings of enhanced comfort will increase Outcome: Progressing Problem: Activity: Goal: Ability to tolerate increased activity will improve Outcome: Progressing Problem: Lack of Knowledge: Goal: Verbalization of understanding the information provided will improve Outcome: Progressing Problem: Physical Regulation: Goal: Ability to maintain a body temperature in the normal range will improve Outcome: Progressing Problem: Respiratory: Goal: Respiratory status will improve Outcome: Progressing Goal: Ability to maintain a clear airway will improve Outcome: Progressing Goal: Pain level will decrease Outcome: Progressing Problem: Lack of Knowledge Goal: Knowledge of risk factors and measures for prevention of condition will improve Outcome: Progressing Problem: Physical Regulation Goal: Spread of further infection will be prevented Outcome: Progressing Goal: Complications related to the disease process, condition, or treatment will be avoided or minimized Outcome: Progressing Goals: Clinical Goals for the Shift: vs stable, adequate breath, hemodinamically stable, free from falls or injuries Summary vs stable, adequate breath maintained, congested cough present and incentive spirometer andacapella encouraged frequently, pt tolerates well, labs as ordered, SBA to BSC and pt tolerates well, free from falls or injuries, call light in reach. * Plan of Care - Ria Ferrell RN - 03/30/2023 2:04 PM CDT Goals: Clinical Goals for the Shift: vs stable, adequate breath, hemodinamically stable, free from falls or injuries Summary: VSS, adequate pain control, free from falls/injury * Initial Assessments - Ofe Grewal RN - 03/30/2023 12:55 PM CDT CM Initial Assessment Interview Note Information Obtained From: Patient (03/30/23 125) Admission Source: ED Impression: c/o low O2 sat of 80% while on 3 lpm Plan Includes: Assessment and DC planning Primary Source of Transportation: Does the patient need discharge transport arranged?: No (03/30/231251) Health Insurance Coverage: Aet Medicare Prescription Coverage: yes Pharmacy: [facility] [address] [place] [id number] Primary Care Provider: Watson Perry MD Prior to Admission: Primary Caregiver: Self Who does the patient or legal guardian want to receive education instruction and discharge plans for after care assistance?: Name Caregiver Name: [place] Relationship to patient: spouse Caregiver Contact Information: [phone] Support System: Spouse/Significant Other Home Care Services: No Durable Medical Equipment: Oxygen, Cane (single prong), Walker (wheeled), Home Modification Assessment (railes in bathroom) (Wears O2 at 3 lpm and gets supplies thru [facility].) Oxygen Detail: wears O2 at 3 lpm all the time DME Name and Contact Number: Michael Waller Living Arrangements: Spouse/significant other Type of Residence: Private residence Steps in home?: Yes, Inside home Number of steps inside: 12 steps Number of steps outside: 2 steps (03/29/232130) SDOH: Transportation: In the past 12 months, has lack of transportation kept you from medical appointments or from getting medications?: No In the past 12 months, has lack of transportation kept you from meetings, work, or from getting things needed for daily living?: No (03/30/231253) Financial Resource: How hard is it for you to pay for the very basics like food, housing, medical care, and heating?: Not hard at all (03/30/231253) Housing: In the last 12 months, was there a time when you were not able to pay the mortgage or rent on time?: No In the last 12 months, how many places have you lived?: 1 In the last 12 months, was there a time when you did not have a steady place to sleep or slept in ashelter (including now)?: No (03/30/231253) Social Connections: In a typical week, how many times do you talk on the phone with family, friends, or neighbors?: More than three times a week How often do you get together with friends or relatives?: More than three times a week How often do you attend islam or gnosticist services?: Never Do you belong to any clubs or organizations such as islam groups, unions, fraternal or athletic groups, or school groups?: No How often do you attend meetings of the clubs or organizations you belong to?: Never Are you , , , , never , or living with a partner?: (03/30/231253) Food Insecurity: Within the past 12 months, you worried that your food would run out before you got the money to buymore.: Never true Within the past 12 months, the food you bought just didn't last and you didn't have money to get more.: Never true (03/30/231253) Alcohol Use: PHQ Screening Potential discharge needs include: Dialysis: Behavioral Health Services: Behavioral Health Services: No (05/12/23 1252) Patient expects to be Discharged to: Private residence, (03/30/23 125) Additional Information: DC plan discussed with patient. Goal is to return home- lives with her and he will be her ride home. Uses a cane or WW prn for mobility. Wears O2 at 3 lpm and gets supplies thru [facility]. Barrier to dc is resolution of low O2 sat. No home needs noted at this time. Patient's Identified Problem/Goal Problem: Ensure acute medical needs are met and that patient has a safe discharge plan. Goal: Secure a discharge plan that patient/family are agreeable with and ensure patient has continuum of care. Case management will follow for discharge planning and send referrals as needed. Ofe Grewal RN * Plan of Care - Jahaira Prater RN - 03/30/2023 3:29 AM CDT Problem: Health Behavior: Goal: Understanding of discharge needs will improve Outcome: Progressing Problem: Activity: Goal: Ability to implement measures to reduce episodes of fatigue will improve Outcome: Progressing Goal: Will verbalize the importance of balancing activity with adequate rest periods Outcome: Progressing Problem: Lack of Knowledge: Goal: Knowledge of disease or condition will improve Outcome: Progressing Goal: Knowledge of the prescribed therapeutic regimen will improve Outcome: Progressing Problem: Coping: Goal: Ability to identify and develop effective coping behavior will improve Outcome: Progressing Goal: Level of anxiety will decrease Outcome: Progressing Problem: Health Behavior: Goal: Ability to manage health-related needs will improve Outcome: Progressing Problem: Nutritional: Goal: Maintenance of adequate nutrition will improve Outcome: Progressing Problem: Respiratory: Goal: Ability to maintain a clear airway will improve Outcome: Progressing Goal: Levels of oxygenation will improve Outcome: Progressing Goal: Ability to maintain adequate ventilation will improve Outcome: Progressing Goal: Complications related to the disease process, condition or treatment will be avoided or minimized Outcome: Progressing Problem: Sensory: Goal: Expressions of feelings of enhanced comfort will increase Outcome: Progressing Problem: Activity: Goal: Ability to tolerate increased activity will improve Outcome: Progressing Problem: Lack of Knowledge: Goal: Verbalization of understanding the information provided will improve Outcome: Progressing Problem: Physical Regulation: Goal: Ability to maintain a body temperature in the normal range will improve Outcome: Progressing Problem: Respiratory: Goal: Respiratory status will improve Outcome: Progressing Goal: Ability to maintain a clear airway will improve Outcome: Progressing Goal: Pain level will decrease Outcome: Progressing Goals: Clinical Goals for the Shift: vs stable, adequate breath, hemodinamically stable, free from falls or injuries Summary: new admission. Orders reviewed with pt and spouse and they voiced understanding, iv antibiotic cont, o2 cont per nc, occasional dry cough, labs as ordered, free from falls or injuries, call light in reach. documented in this encounter Plan of Treatment Not on file documented as of this encounter Procedures Procedure Name Priority Date/Time Associated Diagnosis Comments AEROBIC CULTURE AND GRAM STAIN Routine 04/01/2023 6:35 AM CDT MYCOBACTERIOLOGY AFB CULTURE AND ACID-FAST STAIN Routine 04/01/2023 6:35 AM CDT EGFR Routine 04/01/2023 3:31 AM CDT DIFFERENTIAL AUTO Routine 04/01/2023 3: 31 AM CDT CBC WITH AUTO DIFFERENTIAL Routine 04/01/2023 3:31 AM CDT PHOSPHORUS Routine 04/01/2023 3:31 AM CDT MAGNESIUM Routine 04/01/2023 3:31 AM CDT BASIC METABOLIC PANEL Routine 04/01/2023 3:31 AM CDT EGFR Routine 03/31/2023 2:22 AM CDT DIFFERENTIAL AUTO Routine 03/31/2023 2:2 2 AM CDT CBC WITH AUTO DIFFERENTIAL Routine 03/31/2023 2:22 AM CDT PHOSPHORUS Routine 03/31/2023 2:22 AM CDT MAGNESIUM Routine 03/31/2023 2:22 AM CDT BASIC METABOLIC PANEL Routine 03/31/2023 2:22 AM CDT AEROBIC CULTURE AND GRAM STAIN Routine 03/30/2023 11:03 PM CDT MYCOBACTERIOLOGY AFB CULTURE AND ACID-FAST STAIN Routine 03/30/2023 11:03 PM CDT RESPIRATORY PATHOGEN PANEL Routine 03/30/2023 4:25 PM CDT PEP THERAPY Routine 03/30/2023 9:01 AM CDT PEP THERAPY Routine 03/30/2023 8:42 AM CDT PEP THERAPY Routine 03/30/2023 8:42 AM CDT TRANSTHORACIC ECHO (TTE) COMPLETE W DOPPLER/CF W CONTRAST Routine 03/30/2023 8:10 AM CDT EGFR Routine 03/30/2023 5:23 AM CDT DIFFERENTIAL AUTO Routine 03/30/2023 5:2 3 AM CDT PRO B-TYPE NATRIURETIC PEPTIDE Routine 03/30/2023 5:23 AM CDT CBC WITH AUTO DIFFERENTIAL Routine 03/30/2023 5:23 AM CDT PHOSPHORUS Routine 03/30/2023 5:23 AM CDT MAGNESIUM Routine 03/30/2023 5:23 AM CDT BASIC METABOLIC PANEL Routine 03/30/2023 5:23 AM CDT MRSA ONLY (STAPHYLOCOCCUS AUREUS) PCR Routine 03/29/2023 11:05 PM CDT TROPONIN T HIGH-SENSITIVITY 6-HOUR Timed 03/29/2023 9:56 PM CDT BLOOD CULTURE Routine 03/29/2023 9:56 PM CDT PROCALCITONIN Routine 03/29/2023 6:23 PM CDT TROPONIN T HIGH-SENSITIVITY 4-HR Timed 03/29/2023 6:19 PM CDT SEPSIS LACTATE WITH REFLEX Routine 03/29/2023 6:19 PM CDT MRSA ONLY (STAPHYLOCOCCUS AUREUS) PCR Routine 03/29/2023 6:19 PM CDT BLOOD CULTURE Routine 03/29/2023 6:19 PM CDT TROPONIN T HIGH-SENSITIVITY 2-HOUR Timed 03/29/2023 4:[address] CHEST PE W CONTRAST ED 4:36 PM CDT XR CHEST 1 VIEW ED 03/29/2023 2:49 PM CDT BLOOD GAS, ARTERIAL STAT 03/29/2023 1 :33 PM CDT TROPONIN T HIGH-SENSITIVITY SERIES (BASELINE, 2HR, 4HR, 6HR) STAT 03/29/2023 1:23 PM CDT EGFR STAT 03/29/2023 1:23 PM CDT DIFFERENTIAL AUTO STAT 03/29/2023 1:2 3 PM CDT PRO B-TYPE NATRIURETIC PEPTIDE STAT 03/29/2023 1:23 PM CDT CBC WITH AUTO DIFFERENTIAL STAT 03/29/2023 1:23 PM CDT CREATINE KINASE (CK), TOTAL STAT 03/29/2023 1:23 PM CDT COMPREHENSIVE METABOLIC PANEL STAT 03/29/2023 1:23 PM CDT ECG 12-LEAD STAT 03/29/2023 1:22 PM CDT documented in this encounter Results * Aerobic culture and gram stain Sputum Sputum (Cytology) (04/01/2023 6:35 AM CDT) Direct Specimen Exam Stain: Moderate polymorphonuclear leukocytes seen. Few squamous epithelial cells seen. Few mixed bacterial danya seen on Gram stain. PINKY PACHECO (LUZ) Comment:Testing performed by : [facility], [address] [place] [address] Report Final Report: Growth indicates upper respiratory danya. PINKY PACHECO (LUZ) Comment:Testing performed by : [facility], [address] [place]., [address] Organism GROWTH INDICATES UPPER RESPIRATORY DANYA. PINKY PACHECO (LUZ) Sputum (Sputum) 04/01/2023 6 :35 AM CDT 04/01/2023 10:27 AM CDT Narrative PINKY PACHECO (LUZ) - 04/04/2023 12:34 PM CDT Testing performed by [facility] Microbiology Laboratory ([phone]) Specimens submitted from normally sterile body sites will have all bacterial morphotypes identified. ??Specimens that contain grossly mixed danya and/or are from body sites that are not normally sterile will be examined for Staphylococcus aureus, Pseudomonas aeruginosa, beta-hemolytic strep, vancomycin-resistant Enterococcus and fungus. ??If any of these are isolated, the organism will be reported. Current interpretive data was last revised on 2017. Efren Villanueva MD LAB MICROBIOLOGY - GENERAL ORDER DHARMESH Final Result PINKY PACHECO (LUZ) 1 [facility] Department of Laboratories [place], [place] [id number] * Mycobacteriology (AFB) culture and acid-fast stain Sputum Sputum (Cytology) (04/01/2023 6:35 AM CDT) Direct Specimen Exam Stain: No Acid-fast bacilli seen PINKY PACHECO (LUZ) Comment:Testing performed by : [facility], [address] [place]., [address] Report Final Report: No growth of acid-fast bacilli PINKY PACHECO (LUZ) Comment:Testing performed by : [facility], [address] [place] [address] Sputum (Sputum) 04/01/2023 6 :35 AM CDT 04/01/2023 10:27 AM CDT Narrative ROSALINDLUZ ELENA TARA (LUZ) - 05/28/2023 8:41 AM CDT Testing performed by [facility] Microbiology Laboratory ([phone]). us Efren Villanueva MD LAB MICROBIOLOGY - GENERAL ORDER DAHRMESH Final Result PINKY PCAHECO (LUZ) 1 [facility] Department [place] [address] * eGFR (04/01/2023 3:31 AM CDT) eGFR 95 mL/min/1. 73 m2 PINKY PACHECO (LUZ) Comment: Interpretive Data Reference Interval Normal ?>/= [...] Inclusion of Race in Diagnosing Kidney Disease, CHARLINE 2020). The CKD-EPI equation should not be used for patients with unstable renal function and has not been validated in children and those over 70. Current interpretive data was last reviewed 2021. Blood 04/01/2023 3:31 AM CDT 04/01/2023 3:48 AM CDT us Fartun Hobson CAR BRACER LAB BLOOD ORDERABLES Final R esult [facility] ([place]) 1 [facility] Department [place] [address] * Differential, auto (04/01/2023 3:31 AM CDT) Neutrophil abs 6.2 1.7 - 6.5 K/cumm [facility] ([place]) Imm gran abs 0.1 0.0 - 0.1 K/cumm [facility] ([place]) Lymphocyte abs 2.1 0.8 - 3.3 K/cumm [facility] ([place]) Monocyte abs 0.2 0.2 - 0.8 K/cumm [facility] ([place]) Eosinophil abs 0.0 0.0 - 0.5 K/cumm [facility] ([place]) Basophil abs 0.0 0.0 - 0.1 K/cumm [facility] ([place]) Neutrophil pct 71.9 % [facility] ([place]Z) Comment: Interpretive Data Percent cell count reference ranges are not reported, since discordance with absolute values may lead to misinterpretation of CBC data. Current Interpretive Data was last revised on 2018. Imm gran pct 0.6 % [facility] ([place]) Comment: Interpretive Data Percent cell count reference ranges are not reported, since discordance with absolute values may lead to misinterpretation of CBC data. Current Interpretive Data was last revised on 2018. Lymphocyte pct 24.1 % [facility] ([place]) Comment: Interpretive [...] was last revised on 2018. Eosinophil pct 0.1 % [facility] ([place]) Comment: Interpretive [...] Data was last revised on 2018. Blood 04/01/2023 3:31 AM CDT 04/01/2023 3:48 AM CDT Fartun Hobson CAR BRACER LAB BLOOD ORDERABLES Final R esult [facility] ([place]BY) 1 [facility] [place] [address] * Phosphorus (04/01/2023 3:31 AM CDT) Phosphorus, pl 3.9 2.3 - 4.5 mg/dL [facility] ([place]) Blood 04/01/2023 3:31 AM CDT 04/01/2023 3:48 AM CDT Fartun Hobson CAR BRACER LAB BLOOD ORDERABLES Final R esult [facility] ([place]) 1 [facility] [place] [address] * Magnesium (04/01/2023 3:31 AM CDT) Magnesium 2.2 1.4 - 2.5 mg/dL [facility] ([place]) Blood 04/01/2023 3:31 AM CDT 04/01/2023 3:48 AM CDT Fartun Hobson CAR BR[facility]ER LAB BLOOD ORDERABLES Final R esult Performing Organization Address City/[facility]/ZIP Co de Phone Number PINKY PACHECO (LUZ) 1 [facility] [place] [address] * (ABNORMAL) Basic metabolic panel (04/01/2023 3:31 AM CDT) Sodium 134(L) 135 - 145 mmol/L [facility] ([place]) Potassium, pl 4.7 3.3 - 4.9 mmol/L [facility] ([place]) Chloride 91(L) 97 - 110 mmol/L [facility] ([place]) CO2 38(H) 22 - 32 mmol/L [facility] ([place]) Anion gap 5 2 - 15 mmol/L [facility] ([place]) BUN 11 8 - 25 mg/dL [facility] ([place]) Creatinine 0.62 0.60 - 1.10 mg/dL [facility] ([place]) Glucose 133 70 - 199 mg/dL [facility] ([place]) [...] interpretive data was last revised 2022. Calcium 9.5 8.5 - 10.3 mg/dL [facility] ([place]) Blood 04/01/2023 3:31 AM CDT 04/01/2023 3:48 AM CDT Fartun Hobson CAR BR[facility] LAB BLOOD ORDERABLES Final R esult PINKY PACHECO (LUZ) 1 [facility] [place] [address] * (ABNORMAL) CBC with auto differential (04/01/2023 3:31 AM CDT) WBC 8.6 3.8 - 9.9 K/cumm [facility] ([place]) Hgb 11.9 11.9 - 15.5 g/dL [facility] ([place]) Hct 37.8 35.6 - 45.5 % [facility] ([place]) Plt 460(H) 150 - 400 K/cumm [facility] ([place]) MPV 8.3(L) 9.1 - 12.3 fL [facility] ([place]) RBC 3.86(L) 3.90 - 5.20 M/cumm [facility] ([place]) MCV 97.9(H) 81.3 - 96.4 fL [facility] ([place]) MCH 30.8 27.1 - 33.3 pg [facility] ([place]) MCHC 31.5(L) 32.3 - 35.7 g/dL [facility] ([place]) RDW CV 13.2 11.1 - 14.9 % [facility] ([place]) RDW SD 47.5 35.7 - 48.1 fL [facility] ([place]) NRBC abs 0.00 0.00 - 0.01 K/cumm [facility] ([place]) Blood 04/01/2023 3:31 AM CDT 04/01/2023 3:48 AM CDT us Fartun Hobson CAR BRACER LAB BLOOD ORDERABLES Final R esult [facility] ([place]) 1 [facility] Department [place] [address] * eGFR (03/31/2023 2:22 AM CDT) Pathologist [facility] eGFR 95 mL/min/1. 73 m2 [facility] ([place]) Comment: Interpretive Data Reference Interval Normal ?>/= [...] interpretive data was last reviewed 2021. Blood 03/31/2023 2:22 AM CDT 03/31/2023 3:33 AM CDT us Fartun Hobson CAR BRACER LAB BLOOD ORDERABLES Final R esult [facility] ([place]) 1 [facility] Department [place] [address] * Differential, auto (03/31/2023 2:22 AM CDT) Neutrophil abs 6.1 1.7 - 6.5 K/cumm [facility] ([place]) Imm gran abs 0.0 0.0 - 0.1 K/cumm [facility] ([place]) Lymphocyte abs 2.9 0.8 - 3.3 K/cumm [facility] ([place]) Monocyte abs 0.3 0.2 - 0.8 K/cumm [facility] ([place]) Eosinophil abs 0.1 0.0 - 0.5 K/cumm [facility] ([place]) Basophil abs 0.0 0.0 - 0.1 K/cumm [facility] ([place]) Neutrophil pct 65.0 % [facility] ([place]Z) Comment: Interpretive Data Percent cell count reference ranges are not reported, since discordance with absolute values may lead to misinterpretation of CBC data. Current Interpretive Data was last revised on 2018. Imm gran pct 0.4 % [facility] (LUZ) Comment: [...] was last revised on 2018. Monocyte pct 3.1 % [facility] ([place]Z) Comment: Interpretive Data Percent cell count reference ranges are not reported, since discordance with absolute values may lead to misinterpretation of CBC data. Current Interpretive Data was last revised on 2018. Eosinophil pct 0.5 % [facility] ([place]) Comment: Interpretive [...] Data was last revised on 2018. Blood 03/31/2023 2:22 AM CDT 03/31/2023 3:30 AM CDT us Fartun Hobson CAR BRACER LAB BLOOD ORDERABLES Final R esult PINKY [facility] ([place]) 1 [facility] Department [place] [address] * Phosphorus (03/31/2023 2:22 AM CDT) Phosphorus, pl 2.8 2.3 - 4.5 mg/dL PINKY PACHECO ([place]) Blood 03/31/2023 2:22 AM CDT 03/31/2023 3:33 AM CDT Fartun Hobson CAR BRACER LAB BLOOD ORDERABLES Final R esult PINKY PACHECO (LUZ) [address] [place] [address] * Magnesium (03/31/2023 2:22 AM CDT) Magnesium 2.0 1.4 - 2.5 mg/dL [facility] ([place]Z) Blood 03/31/2023 2:22 AM CDT 03/31/2023 3:33 AM CDT Fartun Hobson CAR BRACER LAB BLOOD ORDERABLES Final R esult Performing Organization Address City/[facility] Co de Phone Number PINKY PACHECO (LUZ) 1 [facility] [place] [address] * (ABNORMAL) Basic metabolic panel (03/31/2023 2:22 AM CDT) Sodium 137 135 - 145 mmol/L [facility] (LUZ) Potassium, pl 4.0 3.3 - 4.9 mmol/L [facility] ([place]) Chloride 92(L) 97 - 110 mmol/L [facility] ([place]Z) CO2 38(H) 22 - 32 mmol/L [facility] ([place]) Anion gap 8 2 - 15 mmol/L [facility] ([place]) BUN 11 8 - 25 mg/dL [facility] ([place]) Creatinine 0.63 0.60 - 1.10 mg/dL [facility] ([place]) Glucose 99 70 - 199 mg/dL [facility] ([place]) [...] interpretive data was last revised 2022. Calcium 9.6 8.5 - 10.3 mg/dL [facility] ([place]) Blood 03/31/2023 2:22 AM CDT 03/31/2023 3:33 AM CDT us Fartun Hobson CAR BR[facility]ER LAB BLOOD ORDERABLES Final R esult [facility] ([place]) 1 [facility] Department [place] [address] * (ABNORMAL) CBC with auto differential (03/31/2023 2:22 AM CDT) WBC 9.4 3.8 - 9.9 K/cumm [facility] ([place]) Hgb 11.3(L) 11.9 - 15.5 g/dL [facility] ([place]) Hct 35.8 35.6 - 45.5 % [facility] ([place]) Plt 439(H) 150 - 400 K/cumm [facility] ([place]) MPV 8.6(L) 9.1 - 12.3 fL [facility] ([place]) RBC 3.64(L) 3.90 - 5.20 M/cumm [facility] ([place]) MCV 98.4(H) 81.3 - 96.4 fL [facility] ([place]) MCH 31.0 27.1 - 33.3 pg [facility] ([place]) MCHC 31.6(L) 32.3 - 35.7 g/dL [facility] ([place]) RDW CV 13.2 11.1 - 14.9 % [facility] ([place]) RDW SD 47.4 35.7 - 48.1 fL [facility] ([place]) NRBC abs 0.00 0.00 - 0.01 K/cumm [facility] ([place]) Blood 03/31/2023 2:22 AM CDT 03/31/2023 3:30 AM CDT us Fartun Hobson CAR BR[facility]ER LAB BLOOD ORDERABLES Final R esult Performing Organization Address City/[facility]/ZIP Co de Phone Number PINKY PACHECO ([place]BY) 1 [facility] [place] [address] * Mycobacteriology (AFB) culture and acid-fast stain Sputum Sputum (Cytology) (03/30/2023 11:03 PM CDT) Direct Specimen Exam Stain: No Acid-fast bacilli seen PINKY PACHECO (SHELBY) Comment:Testing performed by : [facility], [address] [place] [address]., [id number] Report Final Report: No growth of acid-fast bacilli PINKY PACHECO (SHELBY) Comment:Testing performed by : [facility], [address] [place] [address], [address] Sputum (Sputum) 03/30/2023 1 1:03 PM CDT 03/31/2023 8:14 AM CDT Narrative PINKY PACHECO ([place]HELBY) - 05/28/2023 8:41 AM CDT Testing performed by [facility] Microbiology Laboratory ([phone]). us Efren Villanueva MD LAB MICROBIOLOGY - GENERAL ORDER DHARMESH Final Result Performing Organization Address City/[facility] Co de Phone Number PINKY PACHECO ([place]BY) 1 [facility] [place] [address] * Aerobic culture and gram stain Sputum Sputum (Cytology) (03/30/2023 11:03 PM CDT) Direct Specimen Exam Stain: Abundant squamous epithelial cells seen indicating excessive oropharyngeal contamination. ??Culture will not be processed further. ??Please submit another specimen. Smear results called to and read back by: Winnie Pacheco RN [phone] on 03/31/2023 09:35:20 by: Rizwana PACHECO (SHELBY) Comment:Testing performed by : [facility], [address] [place] [address] Report Final Report: This is the final report. PINKY PACHECO (LUZ) Comment:Testing performed by : [facility], [address] [place]., [address] Sputum (Sputum) 03/30/2023 1 1:03 PM CDT 03/31/2023 8:14 AM CDT Narrative PINKY PACHECO (LUZ) - 04/01/2023 8:39 AM CDT Testing performed by [facility] Microbiology Laboratory ([phone]) Specimens submitted from normally sterile body sites will have all bacterial morphotypes identified. ??Specimens that contain grossly mixed danya and/or are from body sites that are not normally sterile will be examined for Staphylococcus aureus, Pseudomonas aeruginosa, beta-hemolytic strep, vancomycin-resistant Enterococcus and fungus. ??If any of these are isolated, the organism will be reported. Current interpretive data was last revised on 2017. Efren Villanueva MD LAB MICROBIOLOGY - GENERAL ORDER DHARMESH Final Result PINKY PACHECO (LUZ) 1 [facility] Department [place] [address] * Respiratory pathogen panel Nasopharyngeal (03/30/2023 4:25 PM CDT) Influenza A RNA Not Detected Not Detected PINKY PACHECO (LUZ) Comment:Testing performed by : [facility], [address] [place] [address], [place]., [address] Influenza B RNA Not Detected Not Detected PINKY PACHECO (LUZ) Comment:Testing performed by : [facility], [address] [place] [address]., [address] RSV RNA Not Detected Not Detected PINKY PACHECO (LUZ) Comment:Testing performed by : [address] [address] COVID-19 RNA Not Detected Not Detected PINKY PACHECO (LUZ) Comment:Testing performed by : [address] [place] [address] Coronavirus 229E RNA Not Detected Not Detected PINKY PACHECO (LUZ) Comment:Testing performed by : [facility], [address] [place] [address]., [address] Coronavirus HKU1 RNA Not Detected Not Detected [facility] ([place]Z) Comment:Testing performed by : [facility], [address] [place] [address]., [address] Coronavirus NL63 RNA Not Detected Not Detected [facility] ([place]) Comment:Testing performed by : [facility], [address] [place] [address]., [address] Coronavirus OC43 RNA Not Detected Not Detected [facility] ([place]Z) Comment:Testing performed by : [facility], [address] [place] [address]., [address] Adenovirus DNA Not Detected Not Detected [facility] ([place]) Comment:Testing performed by : [facility], [address] [place] [address], [address] Metapneumovirus RNA Not Detected Not Detected [facility] ([place]) Comment:Testing performed by : [facility], [address] [place] [address], [address] Rhinovirus/Enterov irus RNA Not Detected Not Detected [facility] ([place]Z) Comment:Testing performed by : [facility], [address] [place] [address]., [address] Parainfluenza 1 RNA Not Detected Not Detected [facility] ([place]) Comment:Testing performed by : [facility], [address] [place] [address]., [address] Parainfluenza 2 RNA Not Detected Not Detected [facility] ([place]) Comment:Testing performed by : [facility], [address] [place] [address], [address] Parainfluenza 3 RNA Not Detected Not Detected [facility] ([place]) Comment:Testing performed by : [facility], [address] [place] [address]., [address] Parainfluenza 4 RNA Not Detected Not Detected [facility] ([place]Z) Comment:Testing performed by : [facility], [address] [place] [address], [address] B. pertussis DNA Not Detected Not Detected [facility] ([place]) Comment:Testing performed by : [facility], [address] [place] [address], [address] B. parapertussis DNA Not Detected Not Detected [facility] ([place]) Comment:Testing performed by : [facility], [address] [place] [address]., [address] C. pneumoniae DNA Not Detected Not Detected PINKY PACHECO (LUZ) Comment:Testing performed by : [facility], [id number] [place] [address], [place]., [address] M. pneumoniae DNA Not Detected Not Detected PINKY PACHECO (LUZ) Comment: Interpretive Data The [facility] FilmArray Respiratory Panel (RP2.1) assay is a multiplexed real-time PCR based nucleic acid test capable of simultaneous qualitative detection and identification of multiple respiratory viral and bacterial nucleic acids, including SARS Coronavirus 2 (the causative agent of COVID-19). The following bacteria, viruses and virus subtypes can be identified using the FilmArray RP2.1 assay: Bordetella pertussis, Bordetella parapertussis, Chlamydia pneumoniae, Mycoplasma pneumoniae, Adenovirus, SARS Coronavirus 2, seasonal coronaviruses (Coronavirus HKU1, Coronavirus NL63, Coronavirus 229E, and Coronavirus OC43), Influenza A, Influenza A subtype H1, Influenza A subtype H3, Influenza A subtype 2009 H1, Influenza B, Metapneumovirus, Parainfluenza 1, Parainfluenza 2, Parainfluenza 3, Parainfluenza 4, RSV, Rhinovirus/Enterovirus. Due to the genetic similarity between human Rhinovirus and Enterovirus, the FilmArray RP2.1 assay cannot reliably differentiate them. Coronavirus OC43 may cross-react with some isolates of Coronavirus HKU1. ??A dual positive result may be due to cross-reactivity or may indicate a co-infection. The detection and identification of specific viral and bacterial nucleic acids from individuals exhibiting signs and symptoms of a respiratory infection aids in the diagnosis of respiratory infection if used in conjunction with other clinical and epidemiological information. ??The results of this test should not be used as the sole basis for diagnosis, treatment, or other management decisions. ??Negative results in the setting of a respiratory illness may be due to infection with pathogens that are not detected by this test. ??Positive results do not rule out infection/co-infection with other organisms. ??The agent(s) detected by the FilmArray RP2.1 may not be the definite cause of disease. ??Additional testing (lab, imaging, etc.) may be necessary when evaluating a patient with possible respiratory tract infection. The FilmArray RP2.1 assay has FDA clearance for testing of CAR BRACER swabs. ??The performance characteristics of this assay have been determined by [facility]. Current interpretive data was last revised on 2021. Testing performed by: [facility], [address] [place] [address], [place]., [address] Nasopharyngeal 03/30/2023 4: 25 PM CDT 03/30/2023 7:27 PM CDT Narrative PINKY PACHECO ([place]BY) - 03/30/2023 8:47 PM CDT Is the Patient experiencing symptoms consistent with COVID?->Unknown Reason for testing?->Symptomatic Surveillance testing for transplant patient?->No us Fartun Hobson CAR BRACER LAB MICROBIOLOGY - GENERAL O RDERABLES Final Result [facility] ([place]) [address] [place] [address] Department of Laboratories [place], [place] [id number] * TRANSTHORACIC ECHO (TTE) COMPLETE W DOPPLER/CF W CONTRAST (03/30/2023 8:10 AM CDT) Anatomical Region Laterality Modality Ultrasound 03/30/2023 7:29 AM CDT Narrative 03/30/2023 8:40 AM CDT [address] [address] Echocardiogram Report Patient Name: JANETH LAKE M : 1950 Study Date: 03/30/2023 7:29:43 AM Gender: F Tech: Location: [id number] Ref.Provider: MARLENY BLOCK Height(Cm): 168 BSA: 1.9 Weight(Kg): 77.1 Quality: Definity contrast agent used to enhance endocardial border definition Order Provider: MARLENY BLOCK Procedures: Echocardiographic Report: Transthoracic echocardiogram with complete 2D, M-Mode, color Doppler examination and contrast. Indications: respiratory failure, elevated BNP. Measurements: 2D/M Mode ?Doppler ? Measurement ?Value ?Normal Range ? Measurement ?Value ?Normal Range ? EF Teich MM ?78.0 ? [ 55.0 - 70.0 ] percent ?NAE Vmax ? 3.57 ? [ 2.00 - 4.00 ] cm2 ? LVIDd MM ? 3.30 ? [ 3.90 - 5.30 ] cm ? AV Mean PG ? 4 ?[ 2 - 4 ] mmHg ? LVIDs MM ? 1.80 ? [ 2.30 - 3.90 ] cm ? AV Peak Ari ?1.28 ? [ 1.00 - 1.70 ] m/s ? LVPWd MM ? 1.10 ? [ 0.60 - 1.00 ] cm ? AV VTI ? 28.76 ?cm ? IVSd MM ?1.20 ? [ 0.60 - 0.90 ] cm ? LVOT Diam ?2.24 ? [ 1.70 - 2.10 ] cm ? LA Dimension MM ?2.67 ? [ 2.70 - 3.80 ] cm ? LVOT Peak Ari ?1.16 ? [ 0.70 - 1.10 ] m/s ? AoR Diam MM ?2.95 ? [ 2.60 - 3.70 ] cm ? LVOT VTI ? 26.06 ?[ 20.00 - 30.00 ] cm ? MV E Peak Ari ?0.62 ? [ 0.60 - 1.30 ] m/s ? MV A Peak Ari ?0.70 ? [ 1.00 - 1.20 ] m/s ? MV Mean PG ? 1 ?[ <= 5 ] mmHg ? MV PHT ? 44 ? [ 20 - 100 ] msec ? MVA ?5.00 ? MV Decel Time ?153 ?[ 104 - 258 ] msec ? PV Peak Ari ?0.75 ? [ 0.40 - 0.80 ] m/s ? TR Peak Ari ?2.83 ? [ 1.00 - 2.80 ] m/s ? TR Peak PG ? 32 ? mmHg ? RVSP ? 40.00 ?[ 10.00 - 36.00 ] mmHg ? E` ? 0.08 ? cm/sec ? E/E` ? 7.28 ? [ <= 10.00 ] ? PA Pressure ?40.00 ?[ 10.00 - 36.00 ] mmHg ? Findings: Atrial Septum: Normal atrial septum. Left Ventricle: Normal left ventricular systolic function with no focal wall motion abnormalities. Normal left ventricular size. Optison contrast agent used to visually enhance endocardial wall motion and contractility. Normal left ventricular wall thickness. Impaired diastolic relaxation Grade I. Ejection fraction is measured at 76 %. Left Atrium: The left atrium is normal in size. Right Ventricle: Normal right ventricular size. Normal right ventricular systolic function. Right Atrium: The right atrium is normal in size. Aortic Valve: Normal structure of the aortic valve. Mitral Valve: Mild mitral annular calcification. Mild mitral valve regurgitation. Pulmonic Valve: Normal structure of the pulmonic valve. Tricuspid Valve: Mild pulmonary hypertension based on right ventricular systolic pressure. Estimated peak RVSP is 40 mmHg. Mild tricuspid regurgitation. Pericardium: Normal pericardium with no significant pericardial effusion. Aorta: Normal aortic root. Sinus of Valsalva is normal. Aortic arch is normal. Descending aorta is normal. IVC: Normal size and normal respiratory collapse consistent with normal right atrial pressure (<5 mmHg). Pulmonary Artery: Normal pulmonary artery size. Conclusions: Normal left ventricular systolic function with no focal wall motion abnormalities. Normal left ventricular size. Normal left ventricular wall thickness. Impaired diastolic relaxation Grade I. Ejection fraction is measured at 76 %. Mild mitral annular calcification. Mild mitral valve regurgitation. Mild pulmonary hypertension based on right ventricular systolic pressure. Estimated peak RVSP is 40 mmHg. Mild tricuspid regurgitation. Technically difficult study with suboptimal views. Optison contrast agent used to visually enhance endocardial wall motion and contractility. Electronically Signed By: Cruz Espinoza MD 2023-03-30 08:40:28 CDT Procedure Note Cruz Espinoza MD - 03/30/[address] [address] Echocardiogram Report Patient Name: JANETH LAKE MPatient ID: [id number] : [id number] Date: 03/30/2023 7:29:43 AM Gender: FAccession #: [id number] Tech: JCLocation: [id number] Ref.Provider: Niki BLOCKt(Cm): 168 BSA: 1.9Weight(Kg): 77.1 Quality: Definity contrast agent used to enhance endocardial borderdefinitionOrder Provider: MARLENY BLOCK Procedures: Echocardiographic Report: Transthoracic echocardiogram with complete 2D, M-Mode, color Dopplerexamination and contrast. Indications: respiratory failure, elevated BNP. Measurements: 2D/M Mode Doppler Measurement Value Normal Range MeasurementValue Normal Range EF Teich MM 78.0 [ 55.0 - 70.0 ] percent NAE Vmax3.57 [ 2.00 - 4.00 ] cm2 LVIDd MM 3.30 [ 3.90 - 5.30 ] cm AV Mean PG 4[ 2 - 4 ] mmHg LVIDs MM 1.80 [ 2.30 - 3.90 ] cm AV Peak Vel1.28 [ 1.00 - 1.70 ] m/s LVPWd MM 1.10 [ 0.60 - 1.00 ] cm AV VTI28.76 cm IVSd MM 1.20 [ 0.60 - 0.90 ] cm LVOT Diam2.24 [ 1.70 - 2.10 ] cm LA Dimension MM 2.67 [ 2.70 - 3.80 ] cm LVOT Peak Vel1.16 [ 0.70 - 1.10 ] m/s AoR Diam MM 2.95 [ 2.60 - 3.70 ] cm LVOT VTI26.06 [ 20.00 - 30.00 ] cm MV E Peak Vel0.62 [ 0.60 - 1.30 ] m/s MV A Peak Vel0.70 [ 1.00 - 1.20 ] m/s MV Mean PG 1[ <= 5 ] mmHg MV PHT 44[ 20 - 100 ] msec MVA5.00 MV Decel Aoxi934 [ 104 - 258 ] msec PV Peak Vel0.75 [ 0.40 - 0.80 ] m/s TR Peak Vel2.83 [ 1.00 - 2.80 ] m/s TR Peak PG 32mmHg RVSP40.00 [ 10.00 - 36.00 ] mmHg E`0.08 cm/sec E/E`7.28 [ <= 10.00 ] PA Xzgcawua91.00 [ 10.00 - 36.00 ] mmHg Findings: Atrial Septum: Normal atrial septum. Left Ventricle: Normal left ventricular systolic function with no focal wall motionabnormalities. Normal left ventricular size. Optison contrast agent used to visually enhanceendocardial wall motion and contractility. Normal left ventricular wall thickness. Impaireddiastolic relaxation Grade I. Ejection fraction is measured at 76 %. Left Atrium: The left atrium is normal in size. Right Ventricle: Normal right ventricular size. Normal right ventricular systolicfunction. Right Atrium: The right atrium is normal in size. Aortic Valve: Normal structure of the aortic valve. Mitral Valve: Mild mitral annular calcification. Mild mitral valve regurgitation. Pulmonic Valve: Normal structure of the pulmonic valve. Tricuspid Valve: Mild pulmonary hypertension based on right ventricular systolic pressure.Estimated peak RVSP is 40 mmHg. Mild tricuspid regurgitation. Pericardium: Normal pericardium with no significant pericardial effusion. Aorta: Normal aortic root. Sinus of Valsalva is normal. Aortic arch is normal.Descending aorta is normal. IVC: Normal size and normal respiratory collapse consistent with normal rightatrial pressure (<5 mmHg). Pulmonary Artery: Normal pulmonary artery size. Conclusions: Normal left ventricular systolic function with no focal wall motionabnormalities. Normal left ventricular size. Normal left ventricular wall thickness. Impaireddiastolic relaxation Grade I. Ejection fraction is measured at 76 %. Mild mitral annular calcification. Mild mitral valve regurgitation. Mild pulmonary hypertension based on right ventricular systolic pressure.Estimated peak RVSP is 40 mmHg. Mild tricuspid regurgitation. Technically difficult study with suboptimal views. Optison contrast agentused to visually enhance endocardial wall motion and contractility. Electronically Signed By: Cruz Espinoza MD 2023-03-30 08:40:28 CDT us Marleny Block MD CV ECHO PROCEDURES Final Result * eGFR (03/30/2023 5:23 AM CDT) eGFR 96 mL/min/1. 73 m2 [facility] ([place]) Comment: Interpretive Data Reference Interval Normal ?>/= [...] interpretive data was last reviewed 2021. Blood 03/30/2023 5:23 AM CDT 03/30/2023 6:34 AM CDT us Marleny Block MD LAB BLOOD ORDERABLES Fin al Result [facility] ([place]) 1 [facility] Department [place] [address] * Differential, auto (03/30/2023 5:23 AM CDT) Neutrophil abs 4.9 1.7 - 6.5 K/cumm [facility] ([place]) Imm gran abs 0.0 0.0 - 0.1 K/cumm [facility] ([place]) Lymphocyte abs 2.7 0.8 - 3.3 K/cumm [facility] ([place]) Monocyte abs 0.3 0.2 - 0.8 K/cumm [facility] ([place]) Eosinophil abs 0.0 0.0 - 0.5 K/cumm [facility] ([place]) Basophil abs 0.0 0.0 - 0.1 K/cumm [facility] ([place]) Neutrophil pct 61.4 % [facility] ([place]) Comment: Interpretive Data Percent cell count reference ranges are not reported, since discordance with absolute values may lead to misinterpretation of CBC data. Current Interpretive Data was last revised on 2018. Imm gran pct 0.3 % [facility] ([place]) Comment: Interpretive Data Percent cell count reference ranges are not reported, since discordance with absolute values may lead to misinterpretation of CBC data. Current Interpretive Data was last revised on 2018. Lymphocyte pct 33.4 % [facility] ([place]) Comment: Interpretive Data Percent cell count reference ranges are not reported, since discordance with absolute values may lead to misinterpretation of CBC data. Current Interpretive Data was last revised on 2018. Monocyte pct 4.0 % [facility] ([place]) Comment: Interpretive Data Percent cell count reference ranges are not reported, since discordance with absolute values may lead to misinterpretation of CBC data. Current Interpretive Data was last revised on 2018. Eosinophil pct 0.4 % [facility] ([place]) Comment: Interpretive Data Percent cell count reference ranges are not reported, since discordance with absolute values may lead to misinterpretation of CBC data. Current Interpretive Data was last revised on 2018. Basophil pct 0.5 % [facility] ([place]) Comment: Interpretive Data Percent cell count reference ranges are not reported, since discordance with absolute values may lead to misinterpretation of CBC data. Current Interpretive Data was last revised on 2018. Blood 03/30/2023 5:23 AM CDT 03/30/2023 6:35 AM CDT Marleny Block MD LAB BLOOD ORDERABLES Fin al Result [facility] ([place]) 1 [facility] [place] [address] * Phosphorus (03/30/2023 5:23 AM CDT) Phosphorus, pl 3.2 2.3 - 4.5 mg/dL [facility] ([place]) Blood 03/30/2023 5:23 AM CDT 03/30/2023 6:34 AM CDT Marleny Block MD LAB BLOOD ORDERABLES Fin al Result [facility] ([place]) 1 [facility] [place] [address] * Magnesium (03/30/2023 5:23 AM CDT) Magnesium 2.2 1.4 - 2.5 mg/dL ROSALINDLUZ ELENA [facility] ([place]) Blood 03/30/2023 5:23 AM CDT 03/30/2023 6:34 AM CDT Marleny Block MD LAB BLOOD ORDERABLES Fin al Result [facility] ([place]) 1 [facility] [place] [address] * (ABNORMAL) CBC with auto differential (03/30/2023 5:23 AM CDT) WBC 8.0 3.8 - 9.9 K/cumm [facility] ([place]) Hgb 11.5(L) 11.9 - 15.5 g/dL [facility] ([place]) Hct 36.3 35.6 - 45.5 % [facility] ([place]) Plt 418(H) 150 - 400 K/cumm [facility] ([place]) MPV 8.5(L) 9.1 - 12.3 fL [facility] ([place]) RBC 3.68(L) 3.90 - 5.20 M/cumm [facility] ([place]) MCV 98.6(H) 81.3 - 96.4 fL [facility] ([place]) MCH 31.3 27.1 - 33.3 pg [facility] ([place]) MCHC 31.7(L) 32.3 - 35.7 g/dL [facility] ([place]) RDW CV 13.2 11.1 - 14.9 % [facility] ([place]) RDW SD 47.7 35.7 - 48.1 fL [facility] ([place]) NRBC abs 0.00 0.00 - 0.01 K/cumm [facility] ([place]) Blood 03/30/2023 5:23 AM CDT 03/30/2023 6:35 AM CDT us Marleny Block MD LAB BLOOD ORDERABLES Fin al Result [facility] 1 [facility] Department [place] [address] * (ABNORMAL) Basic metabolic panel (03/30/2023 5:23 AM CDT) Sodium 136 135 - 145 mmol/L [facility] ([place]) Potassium, pl 4.1 3.3 - 4.9 mmol/L [facility] ([place]) Chloride 94(L) 97 - 110 mmol/L [facility] ([place]) CO2 35(H) 22 - 32 mmol/L [facility] Anion gap 8 2 - 15 mmol/L [facility] ([place]) BUN 11 8 - 25 mg/dL [facility] ([place]) Creatinine 0.59(L) 0.60 - 1.10 mg/dL [facility] ([place]) Glucose 98 70 - 199 mg/dL [facility] ([place]) Comment: Interpretive Data Fasting glucose [...] interpretive data was last revised 2022. Calcium 9.5 8.5 - 10.3 mg/dL [facility] ([place]) Blood 03/30/2023 5:23 AM CDT 03/30/2023 6:34 AM CDT Marleny Block MD LAB BLOOD ORDERABLES Fin al Result [facility] ([place]) 1 [facility] Department [place] [address] * (ABNORMAL) Pro B-type natriuretic peptide (03/30/2023 5:23 AM CDT) NT-proBNP 1,307(H) <=300 pg/mL [facility] ([place]) Comment: Interpretive Comments: A. Dyspnea in Acute [...] Interpretive Data Last Revised Date: 2018. Blood 03/30/2023 5:23 AM CDT 03/30/2023 6:35 AM CDT us Marleny Block MD LAB BLOOD ORDERABLES Fin al Result [facility] ([place]) 1 [facility] Department [place] [address] * MRSA Only (Staphylococcs aureus) PCR Nasal (03/29/2023 11:05 PM CDT) PCR Scrn, Methicillin resistant Staphylococcus aureus (MRSA) Not Detected Not Detected [facility] ([place]) Comment: Testing performed using Nucleic Acid Amplification with the [employer] Xpert MRSA Assay. This assay detects DNA from SCCmec strains of Staphylococcus aureus using Real- Time PCR and has been cleared by the FDA. Performance characteristics have been verified by the [facility]. Nasal 03/29/2023 11:0 5 PM CDT 03/29/2023 11:37 PM CDT Marleny Block MD LAB MICROBIOLOGY - GENER AL ORDERABLES Final Result [facility] ([place]) 1 [facility] Department [place] [address] * Blood culture Blood Antecubital, right (03/29/2023 9:56 PM CDT) Report Final Report: No growth [facility] ([place]) Comment:Testing performed by : [facility], [address] [facility] [place] [address] Blood (Antecubital, right) 03/29/2023 9:56 PM CDT 03/30/2023 1:23 AM CDT Narrative [facility] ([place]) - 04/03/2023 7:01 AM CDT From a different site than #1. Collection->Peripheral 1. ?Blood cultures are incubated for 4 days on a continuously monitored blood culture system. The first report of a negative culture is issued within 24 hours of receipt of the specimen in the laboratory. 2. ?Positive culture results are reported as soon as they are detected. 3. ?The most important factor for detection of microbes in the setting of bloodstream infection is the volume of blood submitted for culture. Failure to collect an optimal blood volume can result in false negative blood cultures. For pediatric patients, the recommended blood volume to collect is 1 mL of blood per year of patient age (up to 20 mL) per blood culture set. For adult patients, 20 mL of blood, divided equally between aerobic and anaerobic blood culture bottles, is recommended for each blood culture set. 4. ?For blood cultures with Gram-positive cocci, a rapid molecular test for organism identification may be performed using the Ver[employer]ene Gram-Positive Blood Culture Assay. This assay detects microbial DNA in positive blood culture broth via hybridization of target DNA to capture oligonucleotides on a microarray. This assay has been cleared by the [place] Food and Drug Administration and its performance characteristics have been verified by the [facility]. 5. ?For questions about this culture, contact the Microbiology Laboratory at [phone]. Interpretive data was last revised on 2020. Tripp Hernandez MD LAB MICROBIOLOGY - GENERAL ORDER DHARMESH Final Result Performing Organization Address City/[facility]/ZIP Co de Phone Number [facility] ([place]) 1 [facility] [place] [address] * Troponin T high-sensitivity 6-hour (03/29/2023 9:56 PM CDT) Trop T hs 8 <=14 ng/L [facility] ([place]) Comment: Interpretive Data For further hscTnT resources including the diagnostic algorithm and an aid in interpretation, copy and paste this link: https://nrl.testcatalog.org/show/hsTrop Current Interpretive Data last revised 2020. Trop T hs delta See Comment ng/L CE NADER [facility] ([place]) Comment:Inappropriate collec tion time to report a delta. Trop T hs pct delta See Comment % [facility] ([place]) Comment:Inappropriate collec tion time to report a delta. Trop T hs interp See Comment C THOMAS [facility] ([place]) Comment:Inappropriate collec tion time to report a delta. Blood 03/29/2023 9:56 PM CDT 03/29/2023 10:05 PM CDT Tripp Hernandez MD LAB BLOOD ORDERABLES Final Resul t Performing Organization Address City/[facility]/ZIP Co de Phone Number [facility] ([place]) 1 [facility] [place] [address] * Procalcitonin (03/29/2023 6:23 PM CDT) Pathologist [facility] Procalcitonin 0.07 0.02 - 0.80 ng/mL [facility] ([place]) Comment:Testing performed by : [facility], [facility] [place]., [address] Blood 03/29/2023 6:23 PM CDT 03/30/2023 10:32 AM CDT Tripp Hernandez MD LAB BLOOD ORDERABLES Final Resul t [facility] ([place]) 1 [facility] [place] [address] * MRSA Only (Staphylococcs aureus) PCR Nasal (03/29/2023 6:19 PM CDT) [facility] PCR Scrn, Methicillin resistant Staphylococcus aureus (MRSA) Not Detected Not Detected [facility] ([place]) Comment: Testing performed using Nucleic Acid Amplification with the [employer] Xpert MRSA Assay. This assay detects DNA from SCCmec strains of Staphylococcus aureus using Real- Time PCR and has been cleared by the FDA. Performance characteristics have been verified by the [facility]. Nasal 03/29/2023 6:19 PM CDT 03/29/2023 6:48 PM CDT Narrative [facility] ([place]) - 03/29/2023 8:02 PM CDT Per pharmacy protocol-vancomycin Tripp Hernandez MD LAB MICROBIOLOGY - GENERAL ORDER DHARMESH Final Result [facility] ([place]) 1 [facility] [place] [address] * Sepsis Lactate w/ Reflex (03/29/2023 6:19 PM CDT) [facility] Sepsis Lactate 1.0 0.7 - 2.0 mmol/L [facility] ([place]) Blood 03/29/2023 6:19 PM CDT 03/29/2023 6:59 PM CDT us Tripp Hernandez MD LAB BLOOD ORDERABLES Final Resul t [facility] ([place]) 1 [facility] Department [place] [address] * Blood culture Blood (03/29/2023 6:19 PM CDT) Report Final Report: No growth [facility] ([place]) Comment:Testing performed by : [facility], [address] [facility] [place] [address] Blood 03/29/2023 6:19 PM CDT 03/29/2023 10:42 PM CDT Narrative [facility] ([place]) - 04/03/2023 7:00 AM CDT Collection->Peripheral 1. ?Blood cultures are incubated for 4 days on a continuously monitored blood culture system. The first report of a negative culture is issued within 24 hours of receipt of the specimen in the laboratory. 2. ?Positive culture results are reported as soon as they are detected. 3. ?The most important factor for detection of microbes in the setting of bloodstream infection is the volume of blood submitted for culture. Failure to collect an optimal blood volume can result in false negative blood cultures. For pediatric patients, the recommended blood volume to collect is 1 mL of blood per year of patient age (up to 20 mL) per blood culture set. For adult patients, 20 mL of blood, divided equally between aerobic and anaerobic blood culture bottles, is recommended for each blood culture set. 4. ?For blood cultures with Gram-positive cocci, a rapid molecular test for organism identification may be performed using the Querydayigene Gram-Positive Blood Culture Assay. This assay detects microbial DNA in positive blood culture broth via hybridization of target DNA to capture oligonucleotides on a microarray. This assay has been cleared by the [place] Food and Drug Administration and its performance characteristics have been verified by the [facility]. 5. ?For questions about this culture, contact the Microbiology Laboratory at [phone]. Interpretive data was last revised on 2020. Tripp Hernandez MD LAB MICROBIOLOGY - GENERAL ORDER DHARMESH Final Result Performing Organization Address City/[facility]/ZIP Co de Phone Number [facility] ([place]) 1 [facility] [place] [address] * Troponin T high-sensitivity 4-hour (03/29/2023 6:19 PM CDT) Trop T hs 9 <=14 ng/L [facility] ([place]) Comment: Interpretive Data For further hscTnT resources including the diagnostic algorithm and an aid in interpretation, copy and paste this link: https://nrl.Xmybox.org/show/hsTrop Current Interpretive Data last revised 2020. Trop T hs delta -1 ng/L GARCIA [facility] ([place]) Trop T hs interp Insignificant [facility] ([place]) Blood 03/29/2023 6:1 9 PM CDT 03/29/2023 6:59 PM CDT Tripp Hernandez MD LAB BLOOD ORDERABLES Final Resul t Performing Organization Address City/[facility]/ZIP Co de Phone Number [facility] ([place]) 1 [facility] [place] [address] * Troponin T high-sensitivity 2-hour (03/29/2023 4:51 PM CDT) Trop T hs 9 <=14 ng/L [facility] ([place]) Comment: Interpretive Data For further hscTnT resources including the diagnostic algorithm and an aid in interpretation, copy and paste this link: https://nrl.Xmybox.org/show/hsTrop Current Interpretive Data last revised 2020. Trop T hs delta See Comment ng/L CE [facility]NER [facility] ([place]) Comment:Inappropriate collec tion time to report a delta. Trop T hs pct delta See Comment % [facility] ([place]) Comment:Inappropriate collec tion time to report a delta. Trop T hs interp See Comment C ERNER [facility] ([place]) Comment:Inappropriate collec tion time to report a delta. Blood 03/29/2023 4:51 PM CDT 03/29/2023 4:57 PM CDT us Tripp Hernandez MD LAB BLOOD ORDERABLES Final Resul t [facility] ([place]) 1 [facility] Department [place] [address] * CT Chest PE (CTA) W Contrast (03/29/2023 4:36 PM CDT) Anatomical Region Laterality Modality Body N/A Computed Tomogra phy 03/29/2023 5:20 PM CDT Narrative 03/29/2023 5:30 PM CDT EXAM DESCRIPTION: ?? CT CHEST PE (CTA) W CONTRAST REASON FOR STUDY: ?? Chest pain, PE suspected, high prob ?? history of COPD on chronic oxygen, 3 L, presents for evaluation for worsening shortness of breath. ? TECHNIQUE: CT angiogram of the chest performed with intravenous contrast using helical scanning technique with dynamic intravenous contrast injection. Reconstructed coronal and sagittal MPR images reviewed. All images stored on PACS. ?? 3D MIP images rendered on scanning unit and reviewed at time of interpretation. ??Automated exposure control was used as a dose optimization technique for this examination. CONTRAST TYPE/DOSE: ?? 100mL of IOVERSOL 350 MG IODINE/ML INTRAVENOUS SYRINGE ?? injected via ?? left arm IV COMPARISON: ?? Radiograph earlier the same day, CT chest 12/11/2022 REFERENCE: Per ACR white paper recommendations, unless otherwise specified no follow-up imaging is recommended for incidental renal and adrenal lesions per consensus recommendations based on imaging criteria. Further lab evaluation could be pursued based on clinical findings. FINDINGS: VASCULATURE: ?? No identified pulmonary emboli. LUNGS: ?? Moderate-sized area of consolidation in the right lower lobe with ground-glass infiltrate present. ??Infiltrate in the left lung base. Mild pulmonary emphysema. ??Upper lobe ground-glass opacity seen on the previous exam well visualized on this exam. PLEURA: ?? No effusion. No pneumothorax. MEDIASTINUM/WARREN: ?? There is bilateral hilar lymphadenopathy. ??A conglomeration of nodes measures up to about 3 cm x 3 cm. ??There are prominent mediastinal lymph node measuring up to about 1 cm. HEART: ?? Heart size is normal with no pericardial effusion. AXILLA: ?? No adenopathy. CHEST WALL: ?? No masses. ??No subcutaneous air. HARDWARE/LINES/TUBES: ?? None. UPPER ABDOMEN: ?? No significant abnormality. MUSCULOSKELETAL: ?? No significant abnormality. OTHER: ?? No significant abnormality. IMPRESSION: No evidence of PE. Moderate-sized area of consolidation in the right lower lobe. There is also some infiltrate in the left lung base. This is likely evidence for an infectious process. There is bilateral hilar right greater than left, and mediastinal lymphadenopathy which is nonspecific. ??Lymphadenopathy on the right has worsened from the previous exam, allowing for differences in technique. ??While this may be reactive in nature recommend short-term follow-up CT chest to ensure improvement and exclude right hilar neoplastic lesion. THIS IS AN ELECTRONICALLY VERIFIED FINAL REPORT 03/29/2023 5:30 PM - Electronically signed by ??Carlyle Conway M.D. RW: RENEE D: ??03/29/2023 5:30 PM T: ??03/29/2023 5:30 PM Report ID: [id number] Reading Location: ??[id number] Procedure Note Carlyle Conway MD - 03/29/2023 EXAM DESCRIPTION: CT CHEST PE (CTA) W CONTRAST REASON FOR STUDY: Chest pain, PE suspected, high prob history of COPD on chronic oxygen, 3 L, presents for evaluation forworsening shortness of breath. TECHNIQUE: CT angiogram of the chest performed with intravenous contrastusing helical scanning technique with dynamic intravenous contrast injection. Reconstructed coronal and sagittal MPR images reviewed. All images storedon PACS. 3D MIP images rendered on scanning unit and reviewed at time of interpretation. Automated exposure control was used as a doseoptimization technique for this examination. CONTRAST TYPE/DOSE: 100mL of IOVERSOL 350 MG IODINE/ML INTRAVENOUSSYRINGE injected via left arm IV COMPARISON: Radiograph earlier the same day, CT chest 12/11/2022 REFERENCE: Per ACR white paper recommendations, unless otherwise specifiedno follow-up imaging is recommended for incidental renal and adrenal lesionsper consensus recommendations based on imaging criteria. Further labevaluation could be pursued based on clinical findings. FINDINGS: VASCULATURE: No identified pulmonary emboli. LUNGS: Moderate-sized area of consolidation in the right lower lobe with ground-glass infiltrate present. Infiltrate in the left lung base. Mild pulmonary emphysema. Upper lobe ground-glass opacity seen on the previous exam well visualized on this exam. PLEURA: No effusion. No pneumothorax. MEDIASTINUM/WARREN: There is bilateral hilar lymphadenopathy. A conglomeration of nodes measures up to about 3 cm x 3 cm. There areprominent mediastinal lymph node measuring up to about 1 cm. HEART: Heart size is normal with no pericardial effusion. AXILLA: No adenopathy. CHEST WALL: No masses. No subcutaneous air. HARDWARE/LINES/TUBES: None. UPPER ABDOMEN: No significant abnormality. MUSCULOSKELETAL: No significant abnormality. OTHER: No significant abnormality. IMPRESSION: No evidence of PE. Moderate-sized area of consolidation in the right lower lobe. There isalso some infiltrate in the left lung base. This is likely evidence for an infectious process. There is bilateral hilar right greater than left, and mediastinal lymphadenopathy which is nonspecific. Lymphadenopathy on the right has worsened from the previous exam, allowing for differences in technique.While this may be reactive in nature recommend short-term follow-up CT chest to ensure improvement and exclude right hilar neoplastic lesion. THIS IS AN ELECTRONICALLY VERIFIED FINAL REPORT 03/29/2023 5:30 PM - Electronically signed by Carlyle Conway M.D. RW: RENEE Report ID: [id number] Reading Location: [place] [address] Tripp Hernandez MD IM CT PROCEDURES Final Result * XR Chest 1 Vw Portable (03/29/2023 2:49 PM CDT) Anatomical Region Laterality Modality Body, Chest N/A Computed Radiogr aphy 03/29/2023 3:08 PM CDT Narrative 03/29/2023 3:10 PM CDT EXAM DESCRIPTION: XR CHEST 1 VIEW REASON FOR STUDY: Short of breath ?? Patient is a 73-year-old female with a history of COPD on chronic oxygen, 3 L, presents for evaluation for worsening shortness of breath. ??States that she was requiring increasing oxygen levels and oxygen levels were still dropping. ?? She notes that she ?? had some watery eyes and congestion that started a couple days ago. ??No nausea, vomiting or diarrhea. ??No chest pain. ??Denies any history of cardiac disease. ??He is no longer a smoker. ??Is not anticoagulated. ?? TECHNIQUE: 1 ??radiographic view(s) of the chest. COMPARISON: 12/11/2022 FINDINGS: The heart size is stable. ??There are atherosclerotic changes of the aorta. ?? There is mild prominence of pulmonary vasculature. ??There is no definite evidence of a pneumothorax. ??There are patchy bilateral perihilar and bibasilar airspace opacities. ??There is suggestion of a small left pleural effusion. ??There is a stable calcified granuloma in the upper left lung. The osseous structures are acutely grossly stable. IMPRESSION: Mild prominence of pulmonary vasculature with suggestion of a small left pleural effusion. Patchy bilateral airspace opacities, which may be related to subsegmental atelectasis/scarring, mild pulmonary edema, and/or developing airspace disease. THIS IS AN ELECTRONICALLY VERIFIED FINAL REPORT 03/29/2023 3:10 PM - Electronically signed by ??Esau Patel D.O. PS: PS D: ??03/29/2023 3:10 PM T: ??03/29/2023 3:10 PM Report ID: [id number] Reading Location: ??[id number] Procedure Note Esau Patel, DO - 03/29/2023 EXAM DESCRIPTION: XR CHEST 1 VIEW REASON FOR STUDY: Short of breath Patient is a 73-year-old female with a history of COPD on chronic oxygen,3 L, presents for evaluation for worsening shortness of breath. States thatshe was requiring increasing oxygen levels and oxygen levels were stilldropping. She notes that she had some watery eyes and congestion that started acouple days ago. No nausea, vomiting or diarrhea. No chest pain. Denies any history of cardiac disease. He is no longer a smoker. Is notanticoagulated. TECHNIQUE: 1 radiographic view(s) of the chest. COMPARISON: 12/11/2022 FINDINGS: The heart size is stable. There are atherosclerotic changes of the aorta. There is mild prominence of pulmonary vasculature. There is no definite evidence of a pneumothorax. There are patchy bilateral perihilar and bibasilar airspace opacities. There is suggestion of a small left pleural effusion. There is a stable calcified granuloma in the upper left lung. The osseous structures are acutely grossly stable. IMPRESSION: Mild prominence of pulmonary vasculature with suggestion of a small left pleural effusion. Patchy bilateral airspace opacities, which may be related to subsegmental atelectasis/scarring, mild pulmonary edema, and/or developing airspacedisease. THIS IS AN ELECTRONICALLY VERIFIED FINAL REPORT 03/29/2023 3:10 PM - Electronically signed by Esau Patel D.O. PS: PS Report ID: [id number] Reading Location: [place] [address] Tripp Hernandez MD IMG XR PROCEDURES Final Result * (ABNORMAL) Blood gas, arterial (03/29/2023 1:33 PM CDT) pH, Art 7.34(L) 7.35 - 7.45 [facility] ([place]) PCO2, Arterial 66(C) 35 - 45 mmHg [facility] ([place]) Comment:Critical result call ed to and read back by Brad Coe (er) on 03/29/2023 13:48:03 CDT to porter reynaga. PO2, Arterial 73(L) 83 - 108 mmHg [facility] ([place]) HCO3 Art (Calculated) 35(H) 20 - 30 mmol/L [facility] ([place]) BE, art 8 mmol/L [facility] ([place]) Comment: Interpretive Data No Reference Range Established Current Interpretive Data was last revised on 2017 O2 Sat Art (Measured) 94 90 - 95 % [facility] ([place]) Blood 03/29/2023 1:33 PM CDT 03/29/2023 1:39 PM CDT Tripp Hernandez MD LAB BLOOD ORDERABLES Final Resul t [facility] ([place]) 1 [facility] [place] [address] * eGFR (03/29/2023 1:23 PM CDT) Pathologist [facility] eGFR 95 mL/min/1. 73 m2 [facility] ([place]) Comment: Interpretive Data Reference Interval Normal ?>/= [...] interpretive data was last reviewed 2021. Blood 03/29/2023 1:23 PM CDT 03/29/2023 1:26 PM CDT us Tripp Hernandez MD LAB BLOOD ORDERABLES Final Resul t [facility] ([place]) 1 [facility] Department [place] [address] * Differential, auto (03/29/2023 1:23 PM CDT) Pathologist [facility] Neutrophil abs 5.6 1.7 - 6.5 K/cumm [facility] ([place]) Imm gran abs 0.0 0.0 - 0.1 K/cumm [facility] ([place]) Lymphocyte abs 1.9 0.8 - 3.3 K/cumm [facility] ([place]) Monocyte abs 0.4 0.2 - 0.8 K/cumm [facility] ([place]) Eosinophil abs 0.1 0.0 - 0.5 K/cumm [facility] ([place]) Basophil abs 0.1 0.0 - 0.1 K/cumm [facility] ([place]) Neutrophil pct 69.9 % [facility] ([place]) Comment: Interpretive Data Percent cell count reference ranges are not reported, since discordance with absolute values may lead to misinterpretation of CBC data. Current Interpretive Data was last revised on 2018. Imm gran pct 0.4 % [facility] ([place]) Comment: Interpretive Data Percent cell count reference ranges are not reported, since discordance with absolute values may lead to misinterpretation of CBC data. Current Interpretive Data was last revised on 2018. Lymphocyte pct 23.1 % [facility] ([place]) Comment: Interpretive Data Percent cell count reference ranges are not reported, since discordance with absolute values may lead to misinterpretation of CBC data. Current Interpretive Data was last revised on 2018. Monocyte pct 5.0 % [facility] ([place]) Comment: Interpretive Data Percent cell count reference ranges are not reported, since discordance with absolute values may lead to misinterpretation of CBC data. Current Interpretive Data was last revised on 2018. Eosinophil pct 0.6 % [facility] ([place]) Comment: Interpretive Data Percent cell count reference ranges are not reported, since discordance with absolute values may lead to misinterpretation of CBC data. Current Interpretive Data was last revised on 2018. Basophil pct 1.0 % [facility] ([place]) Comment: Interpretive Data Percent cell count reference ranges are not reported, since discordance with absolute values may lead to misinterpretation of CBC data. Current Interpretive Data was last revised on 2018. Blood 03/29/2023 1:23 PM CDT 03/29/2023 1:26 PM CDT us Tripp Hernandez MD LAB BLOOD ORDERABLES Final Resul t [facility] ([place]) 1 [facility] Department [place] [address] * (ABNORMAL) Pro B-type natriuretic peptide (03/29/2023 1:23 PM CDT) NT-proBNP 2,365(H) <=300 pg/mL [facility] ([place]) Comment: Interpretive Comments: A. Dyspnea in Acute [...] et.al. Eur Heart J. 2006:27:330-337. 2. Alisha DURAN, Ashley MENDOZA. J. AM Stephanie Cardiol: Cardiovasc Imag. 2009;2: 216- 225. Interpretive Data Last Revised Date: 2018. Blood 03/29/2023 1:23 PM CDT 03/29/2023 1:26 PM CDT Tripp Hernandez MD LAB BLOOD ORDERABLES Final Resul t Performing Organization Address City/[facility]/ZIP Co de Phone Number [facility] ([place]) [address] [place] [address] [place] [address] * Creatine kinase (CK), total (03/29/2023 1:23 PM CDT) CK 42 30 - 200 Units/L [facility] ([place]) Blood 03/29/2023 1:23 PM CDT 03/29/2023 1:26 PM CDT Tripp Hernandez MD LAB BLOOD ORDERABLES Final Resul t Performing Organization Address City/[facility]/ZIP Co de Phone Number [facility] ([place]) [address] [place] [address] [place] [address] * Troponin T high-sensitivity series (baseline, 2hr, 4hr, 6hr) (03/29/2023 1:23 PM CDT) Trop T hs 10 <=14 ng/L [facility] ([place]) Comment: Interpretive Data For further hscTnT resources including the diagnostic algorithm and an aid in interpretation, copy and paste this link: [email or web address].testcatalog.org/[email or web address] Current Interpretive Data last revised 2020. Blood 03/29/2023 1:23 PM CDT 03/29/2023 1:26 PM CDT Tripp Hernandez MD LAB BLOOD ORDERABLES Final Resul t [facility] ([place]) [facility] Department [place] [address] * (ABNORMAL) Comprehensive metabolic panel (03/29/2023 1:23 PM CDT) Sodium 137 135 - 145 mmol/L [facility] ([place]) Potassium, pl 4.2 3.3 - 4.9 mmol/L [facility] ([place]) Chloride 95(L) 97 - 110 mmol/L [facility] ([place]) CO2 32 22 - 32 mmol/L [facility] ([place]) Anion gap 10 2 - 15 mmol/L [facility] ([place]) BUN 8 8 - 25 mg/dL [facility] ([place]) Creatinine 0.62 0.60 - 1.10 mg/dL [facility] ([place]) Glucose 120 70 - 199 mg/dL [facility] ([place]) [...] 1.2 mg/dL [facility] ([place]) Protein, pl 6.7 6.5 - 8.5 g/dL [facility] ([place]) Albumin 3.6 3.5 - 5.0 g/dL [facility] ([place]) Alk phos 96 40 - 130 Units/L [facility]) ALT 21 7 - 45 Units/L [facility]) AST 24 10 - 45 Units/L [facility] ([place]) Blood 03/29/2023 1:23 PM CDT 03/29/2023 1:26 PM CDT Tripp Hernandez MD LAB BLOOD ORDERABLES Final Resul t [facility] ([place]) 1 [facility] [employer] [place] [address] * (ABNORMAL) CBC with auto differential (03/29/2023 1:23 PM CDT) WBC 8.1 3.8 - 9.9 K/cumm [facility] ([place]) Hgb 11.8(L) 11.9 - 15.5 g/dL [facility] ([place]) Hct 37.4 35.6 - 45.5 % [facility] ([place]) Plt 386 150 - 400 K/cumm [facility] ([place]) MPV 8.4(L) 9.1 - 12.3 fL [facility] ([place]) RBC 3.80(L) 3.90 - 5.20 M/cumm [facility] ([place]) MCV 98.4(H) 81.3 - 96.4 fL [facility] ([place]) MCH 31.1 27.1 - 33.3 pg [facility] ([place]) MCHC 31.6(L) 32.3 - 35.7 g/dL [facility] ([place]) RDW CV 13.4 11.1 - 14.9 % [facility] ([place]) RDW SD 48.9(H) 35.7 - 48.1 fL [facility] ([place]) NRBC abs 0.00 0.00 - 0.01 K/cumm [facility] ([place]) Blood 03/29/2023 1:23 PM CDT 03/29/2023 1:26 PM CDT Tripp Hernandez MD LAB BLOOD ORDERABLES Final Resul t [facility] ([place]) 1 [facility] [place] [address] * ECG 12 lead (03/29/2023 1:22 PM CDT) 03/29/2023 1:22 PM CDT Narrative [facility] - 03/29/2023 2:38 PM CDT Vent Rate: 66 bpm RR Interval: 909 msec GA Interval: 147 msec QRS Duration: 85 msec QT Interval: 398 msec QTC Interval: 411 msec P-R-T [place]: 53 - 48 - 47 degrees SINUS RHYTHM NORMAL ECG Electronically Signed By: Cruz Espinoza MD us Tripp Hernandez MD ECG ORDERABLES Final Result [facility] documented in this encounter Visit Diagnoses Diagnosis COPD exacerbation (HCC)- Primary Obstructive chronic bronchitis with exacerbation COPD exacerbation (HCC) Obstructive chronic bronchitis with exacerbation Multifocal pneumonia Lymphadenopathy Enlargement of lymph nodes Hypoxia Hypoxemia Hypoxia Hypoxemia Lymphadenopathy Enlargement of lymph nodes Multifocal pneumonia documented in this encounter Admitting Diagnoses Diagnosis COPD exacerbation (HCC) Obstructive chronic bronchitis with exacerbation Hypoxia Hypoxemia Lymphadenopathy Enlargement of lymph nodes Multifocal pneumonia documented in this encounter Administered Medications Inactive Administered Medications - up to 3 most recent administrations Medication Order MAR Action Action Date Dose Rate Site acetaminophen (TYLENOL) tablet 650 mg 650 mg, oral, Every 4 hours PRN, 1st line for pain, fever, Starting on Sun03/29/23 at 2241 bisacodyl EC (DULCOLAX EC) tablet 10 mg 10 mg, oral, Daily PRN, constipation, If no results 24 hours after milk of magnesia, Starting on Sun03/29/23 at 2241, Do not crush, chew, cut, dissolve, open or otherwise manipulate tablet/capsule., Indications: constipationIndications:constipatio n citalopram (CeleXA) tablet 20 mg 20 mg, oral, Daily, First dose on Sun03/30/23 at 0900 Given 04/01/2023 8:12 AM CDT 20 mg Given 03/31/2023 9:20 AM CDT 20 mg Given 03/30/2023 10:00 AM CDT 20 mg clonazePAM (KlonoPIN) tablet 1 mg 1 mg, oral, Daily, First dose on Sun03/30/23 at 0900 Given 03/31/2023 8:11 PM CDT 1 mg Given 03/30/2023 9:25 PM CDT 1 mg enoxaparin (LOVENOX) syringe 40 mg 40 mg, subcutaneous, Daily (for enoxaparin), First dose on Margarita 03/29/23 at 2315, Indications: Deep Vein Thrombosis PreventionIndications:Deep Vein Thrombosis Prevention Given 03/31/2023 8:12 PM CDT 40 mg Left Upper Abdomen Given 03/30/2023 9:30 PM CDT 40 mg Le ft Lower Abdomen Given 03/29/2023 11:16 PM CDT 40 mg L eft Upper Abdomen erythromycin (ILOTYCIN) 5 mg/gram (0.5 %) ophthalmic ointment each eye, 4 times daily, First dose on Sun03/30/23 at 0800, Apply 1 cm ribbon. Given 03/31/2023 9:37 PM CDT 1 Application Given 03/31/2023 5:30 PM CDT 1 Application Given 03/31/2023 12:10 PM CDT 1 Application famotidine (PEPCID) tablet 20 mg 20 mg, oral, Daily, First dose on Sun03/30/23 at 0900, Pepcid 20mg daily is the stress ulcer prevention sub for protonix Given 04/01/2023 8:12 AM CDT 20 mg Given 03/31/2023 9:17 AM CDT 20 mg Given 03/30/2023 9:58 AM CDT 20 mg furosemide (LASIX) 10 mg/mL injection 40 mg 40 mg, intravenous, Once, On Margarita 03/29/23 at 1615, For 1 dose, For IV push: administer doses < 160 mg at a rate of 20 -40 mg/min. Doses >/= 160 mg should be administered no faster than 4 mg/min. Room temperature only Given 03/29/2023 4:5 2 PM CDT 40 mg furosemide (LASIX) 10 mg/mL injection 40 mg 40 mg, intravenous, Daily, First dose (after last reorder) on Sun03/30/23 at 0900, For IV push: administer doses < 160 mg at a rate of 20 -40 mg/min. Doses >/= 160 mg should be administered no faster than 4 mg/min. Room temperature only Given 03/30/2023 10:00 AM CDT 40 mg furosemide (LASIX) tablet 10 mg 10 mg, oral, Daily, First dose on Sun03/31/23 at 0915 Given 04/01/2023 8:12 AM CDT 10 mg Given 03/31/2023 9:28 AM CDT 10 mg ioversoL (OPTIRAY 350) syringe 100 mL 100 mL, intravenous, Once in imaging, contrast, Starting on Margarita 03/29/23 at 1615, For 1 dose Contrast Given 03/29/2023 4:20 PM CDT 100 mL ipratropium-albuteroL (DUO-NEB) 0.5-2.5 mg/3 mL nebulizer solution 3 mL 3 mL, nebulization, Every 6 hours (correspondence review clerk), First dose (after last modification) on Sun03/30/23 at 0300, Indications: COPD ExacerbationIndications:COPD Exacerbation Given 04/01/2023 9:15 AM CDT 3 mL Given 04/01/2023 1:22 AM CDT 3 mL Given 03/31/2023 7:50 PM CDT 3 mL ipratropium-albuteroL (DUO-NEB) 0.5-2.5 mg/3 mL nebulizer solution 9 mL 9 mL, nebulization, Once (correspondence review clerk), On Margarita 03/29/23 at 1312, For 1 dose, Indications: COPD ExacerbationIndications:COPD Exacerbation Given 03/29/2023 1:34 PM CDT 9 mL levoFLOXacin (LEVAQUIN) 750 mg/150 mL in dextrose 5% (premix) 750 mg 750 mg, intravenous, at 100 mL/hr, Administer over 90 Minutes, Every 24 hours scheduled, First dose on Sun03/29/23 at 1753, Indications: Pneumonia, Community AcquiredIndications:Pneumonia, Community Acquired New Bag 04/01/2023 8:21 AM CDT 750 mg 100 mL/hr New Bag 03/31/2023 9:21 AM CDT 750 mg 100 mL/hr New Bag 03/30/2023 9:00 AM CDT 750 mg 100 mL/hr loratadine (CLARITIN) tablet 10 mg 10 mg, oral, Daily, First dose on Sun03/30/23 at 0900 Given 04/01/2023 8:12 AM CDT 10 mg Given 03/31/2023 9:19 AM CDT 10 mg Given 03/30/2023 9:58 AM CDT 10 mg magnesium hydroxide (MILK OF MAGNESIA) 80 mg/mL (33.3 mg/mL as elemental magnesium) oral suspension 30 mL 30 mL, oral, Daily PRN, constipation, Starting on Sun03/29/23 at 2241 Given 03/31/2023 8:16 PM CDT 30 mL Given 03/29/2023 11:16 PM CDT 30 mL methylPREDNISolone sodium succinate (SOLU-medrol) preservative free injection 125 mg 125 mg, intravenous, Administer over 3 Minutes, Once, On Sun03/29/23 at 1312, For 1 dose, Indications: COPD ExacerbationIndications:COPD Exacerbation Given 03/29/2023 1:21 PM CDT 12 5 mg methylPREDNISolone sodium succinate (SOLU-medrol) preservative free injection 40 mg 40 mg, intravenous, Administer over 3 Minutes, Every 12 hours scheduled, First dose on Sun03/31/23 at 1000 Given 04/01/2023 8:15 AM CDT 40 mg Given 03/31/2023 8:12 PM CDT 40 mg Given 03/31/2023 9:28 AM CDT 40 mg mineral oil (FLEET MINERAL OIL) enema 133 mL 133 mL (1 enema), rectal, Daily PRN, constipation, if no results 24 hours after bisacodyl, Starting on Sun03/29/23 at 2241, Indications: constipationIndications:constipation omega-3 fatty acids (LOVAZA) capsule 1 capsule 1 capsule, oral, 2 times daily, First dose on Sun03/29/23 at 2315 Given 04/01/2023 8:12 AM CDT 1 capsule Given 03/31/2023 8:12 PM CDT 1 capsule Given 03/31/2023 9:20 AM CDT 1 capsule perflutren protein-a (OPTISON) 3 mL in sodium chloride 0.9% 8 mL syringe 1-8 mL, intravenous, Once in imaging, contrast, Starting on Sun03/30/23 at 0824, For 1 dose, Intra-Procedure (CV) Contrast Given 03/30/2023 8:24 AM CDT 3 mL Left Antecubital pramipexole (MIRAPEX) tablet 1.5 mg 1.5 mg, oral, 2 times daily, First dose on Sun03/29/23 at 2315 Given 04/01/2023 8:12 AM CDT 1.5 mg Given 03/31/2023 8:12 PM CDT 1.5 mg Given 03/31/2023 9:18 AM CDT 1.5 mg predniSONE (DELTASONE) tablet 40 mg 40 mg, oral, Daily, First dose on Sun03/30/23 at 0900 Given 03/30/2023 9:58 AM CDT 40 mg primidone (MYSOLINE) tablet 250 mg 250 mg, oral, Daily, First dose on Sun03/30/23 at 0900 Given 04/01/2023 8:12 AM CDT 250 mg Given 03/31/2023 9:19 AM CDT 250 mg Given 03/30/2023 9:58 AM CDT 250 mg propranoloL (INDERAL) tablet 40 mg 40 mg, oral, Every 8 hours scheduled, First dose (after last modification) on Sun03/30/23 at 0600, Pt is on Inderal 60mg LA twice daily--order adjusted to Inderal 40mg [id number] Given 04/01/2023 6:1 3 AM CDT 40 mg Given 03/31/2023 9:37 PM CDT 40 mg Given 03/31/2023 3:10 PM CDT 40 mg rosuvastatin (CRESTOR) tablet 10 mg 10 mg, oral, Nightly, First dose on Sun03/29/23 at 2315 Given 03/31/2023 8:12 PM CDT 10 mg Given 03/30/2023 9:30 PM CDT 10 mg Given 03/29/2023 11:16 PM CDT 10 mg vancomycin 1250 mg/250 mL in sodium chloride 0.9% (premix) 1,250 mg 1,250 mg (rounded from 1,156.5 mg = 15 mg/kg ? 77.1 kg), intravenous, Administer over 60 Minutes, Every 24 hours, First dose (after last modification) on Margarita 03/29/23 at 1800, Indications: Pneumonia, Community AcquiredIndications:Pneumonia, Community Acquired New Bag 03/29/2023 8:40 PM CDT 1,250 mg documented in this encounter Discontinued Medications Medication Sig Discontinue Reason Start Date End Da te [id number]- vale-bor 600 mg calcium- 800 unit-50 mg tablet Take by mouth Therapy completed 03/29/2023 calcium citrate-vitamin D3 250 mg calcium- 200 unit tablet Take by mouth 2 (two) times a day. Therapy completed 03/29/2023 diphenhydrAMINE (BENADRYL) 50 mg capsule Take 50 mg by mouth every 6 (six) hours as needed for itching. Therapy completed 03/29/2023 naproxen sodium 220 mg capsuleIndications:sto p before surgery Take 220 mg by mouth 2 (two) times a day as needed. Therapy completed 03/29/2023 omega 5-ilq-dlw-fish oil 1,000 mg (120 mg-180 mg) capsule Take 1 capsule (1,000 mg total) by mouth 3 (three) times a day Reorder 04/01/2023 cephalexin (KEFLEX) 500 mg capsuleIndications:Pro phylaxis, Medical Take 1 capsule (500 mg total) by mouth 3 (three) times a day. Stop Taking at Discharge 03/15/2018 04/01/2023 documented as of this encounter Historical Medications * This list may reflect changes made after this encounter. calcium carbonate (OS-ERUM) 1,500 mg (600 mg elemental) tablet Take 1 tablet (1,500 mg total) by mouth 2 (two) times a day multivitamin capsule Take 1 capsule by mouth daily [id number]-[id number] -pqy-geml-duj 600 mg calcium- 800 unit-50 mg tablet Take by mouth 03/19 omega 2-pwx-faz-fish oil 1,000 mg (120 mg-180 mg) capsule Take 1 capsule (1,000 mg total) by mouth 3 (three) times a day 04/01/2023 added in this encounter Active and Recently Administered Medications Times are shown in CDT. Scheduled Medication Order 03/30/2023 03/31/2023 04/01/2023 citalopram (CeleXA) tablet 20 mg 20 mg, oral, Daily, First dose on Sun03/30/23 at 0900 1000 (Given - Provider: Ria Ferrell RN) 0920 (Given - Provider: Ria Ferrell RN) 0812 (Given - Provider: Ria Ferrell RN) clonazePAM (KlonoPIN) tablet 1 mg 1 mg, oral, Daily, First dose on Sun03/30/23 at 0900 0900 (Not Given - Provider: Ria Ferrell RN - Reason: Patient/family refused - Comment: rescheduled for nights)2124 (Given - Provider: Jahaira Prater, RN) 2010 (Given - Provider: Jahaira Prater, RN) enoxaparin (LOVENOX) syringe 40 mg 40 mg, subcutaneous, Daily (for enoxaparin), First dose on Margarita 03/29/23 at 2315, Indications: Deep Vein Thrombosis Prevention 2129 (Given - Provider: Jahaira Prater, RN) 2011 (Given - Provider: Jahaira Prater, RN) erythromycin (ILOTYCIN) 5 mg/gram (0.5 %) ophthalmic ointment each eye, 4 times daily, First dose on Sun03/30/23 at 0800, Apply 1 cm ribbon. 0830 (Given - Provider: Ria Ferrell RN)1255 (Given - Provider: Ria Ferrell RN)1628 (Given - Provider: Ria Ferrell RN)2131 (Given - Provider: Jahaira Prater RN) 0830 (Given - Provider: Ria Ferrell RN)1210 (Given - Provider: Ria Ferrell RN)1730 (Given - Provider: Ria Ferrell RN)2137 (Given - Provider: Jahaira Prater RN) 0800 (Due)1200 (Due) famotidine (PEPCID) tablet 20 mg 20 mg, oral, Daily, First dose on Sun03/30/23 at 0900, Pepcid 20mg daily is the stress ulcer prevention sub for protonix 0958 (Given - Provider: Ria Ferrell RN) 0917 (Given - Provider: Ria Ferrell RN) 0812 (Given - Provider: Ria Ferrell RN) furosemide (LASIX) 10 mg/mL injection 40 mg (CANCELED) 40 mg, intravenous, Daily, First dose (after last reorder) on Sun03/30/23 at 0900, For IV push: administer doses < 160 mg at a rate of 20 -40 mg/min. Doses >/= 160 mg should be administered no faster than 4 mg/min. Room temperature only 1000 (Given - Provider: Ria Ferrell RN) furosemide (LASIX) tablet 10 mg 10 mg, oral, Daily, First dose on 03/31/23 at 0915 0928 (Given - Provider: Ria Ferrell, BORIS) 0812 (Given - Provider: Ria Ferrell RN) ipratropium-albuteroL (DUO-NEB) 0.5-2.5 mg/3 mL nebulizer solution 3 mL 3 mL, nebulization, Every 6 hours (correspondence review clerk), First dose (after last modification) on Sun03/30/23 at 0300, Indications: COPD Exacerbation 0116 (Given - Provider: Lorrie Quiroga, [place] - Comment: clinical decision)0854 (Given - Provider: Robel Martinez, [place])1454 (Given - Provider: Robel Martinez, BROADCASTER)2132 (Given - Provider: Teo Irvin, BROADCASTER) 0157 (Given - Provider: Teo Irvin, BROADCASTER)0826 (Given - Provider: Lucinda Hsu, BROADCASTER)1414 (Given - Provider: Lucinda Hsu, BROADCASTER)1950 (Given - Provider: Aydee Beckford, BROADCASTER) 0122 (Given - Provider: Aydee Beckford, BROADCASTER)0915 (Given - Provider: Lucinda Hsu, BROADCASTER) levoFLOXacin (LEVAQUIN) 750 mg/150 mL in dextrose 5% (premix) 750 mg 750 mg, intravenous, at 100 mL/hr, Administer over 90 Minutes, Every 24 hours scheduled, First dose on Margarita 03/29/23 at 1753, Indications: Pneumonia, Community Acquired 0900 (New Bag - Provider: Ria Ferrell RN) 0921 (New Bag - Provider: Ria Ferrell RN) 0821 (New Bag - Provider: Ria Ferrell, BORIS) loratadine (CLARITIN) tablet 10 mg 10 mg, oral, Daily, First dose on 03/30/23 at 0900 0958 (Given - Provider: Ria Ferrell RN) 0919 (Given - Provider: Ria Ferrell RN) 08 (Given - Provider: Ria Ferrell, BORIS) methylPREDNISolone sodium succinate (SOLU-medrol) preservative free injection 40 mg 40 mg, intravenous, Administer over 3 Minutes, Every 12 hours scheduled, First dose on Sun03/31/23 at 1000 0928 (Given - Provider: Ria Ferrell RN)2011 (Given - Provider: Jahaira Prater RN) 814 (Given - Provider: Ria Ferrell RN) omega-3 fatty acids (LOVAZA) capsule 1 capsule 1 capsule, oral, 2 times daily, First dose on Margarita 03/29/23 at 2315 1000 (Given - Provider: Ria Ferrell RN)4 (Given - Provider: Jahaira Prater RN) 919 (Given - Provider: Ria Ferrell, BORIS)2011 (Given - Provider: Jahaira Prater, BORIS) 811 (Given - Provider: Ria Ferrell RN) pramipexole (MIRAPEX) tablet 1.5 mg 1.5 mg, oral, 2 times daily, First dose on Margarita 03/29/23 at 2315 1000 (Given - Provider: Ria Ferrell RN)4 (Given - Provider: Jahaira Prater RN) 18 (Given - Provider: Ria Ferrell, BORIS)2011 (Given - Provider: Jahaira Prater RN) 811 (Given - Provider: Ria Ferrell RN) predniSONE (DELTASONE) tablet 40 mg (CANCELED) 40 mg, oral, Daily, First dose on Sun03/30/23 at 0900 0958 (Given - Provider: Ria Ferrell RN) 0930 (Not Given - Provider: Ria Ferrell RN - Reason: Order Discontinued) primidone (MYSOLINE) tablet 250 mg 250 mg, oral, Daily, First dose on Sun03/30/23 at 0900 0958 (Given - Provider: Ria Ferrell RN) 0919 (Given - Provider: Ria Ferrell, BORIS) 0812 (Given - Provider: Ria Ferrell, BORIS) propranoloL (INDERAL) tablet 40 mg 40 mg, oral, Every 8 hours scheduled, First dose (after last modification) on Sun03/30/23 at 0600, Pt is on Inderal 60mg LA twice daily--order adjusted to Inderal 40mg [id number] 0530 (Given - Provider: Jahaira Prater RN)1455 (Given - Provider: Ria Ferrell RN)2124 (Given - Provider: Jahaira Prater RN) 0504 (Given - Provider: Jahaira Prater, BORIS)1510 (Given - Provider: Ria Ferrell RN)2137 (Given - Provider: Jahaira Prater, BORIS) 0613 (Given - Provider: Jahaira Prater, BORIS) rosuvastatin (CRESTOR) tablet 10 mg 10 mg, oral, Nightly, First dose on Sun03/29/23 at 2315 2130 (Given - Provider: Jahaira Prater RN) 2011 (Given - Provider: Jahaira Prater RN) PRN Medication Order 03/30/2023 03/31/2023 04/01/2023 acetaminophen (TYLENOL) tablet 650 mg 650 mg, oral, Every 4 hours PRN, 1st line for pain, fever, Starting on Sun03/29/23 at 2241 bisacodyl EC (DULCOLAX EC) tablet 10 mg 10 mg, oral, Daily PRN, constipation, If no results 24 hours after milk of magnesia, Starting on Sun03/29/23 at 2241, Do not crush, chew, cut, dissolve, open or otherwise manipulate tablet/capsule., Indications: constipation magnesium hydroxide (MILK OF MAGNESIA) 80 mg/mL (33.3 mg/mL as elemental magnesium) oral suspension 30 mL 30 mL, oral, Daily PRN, constipation, Starting on Sun03/29/23 at 2241 2015 (Given - Provider: Jahaira Prater, BORIS) mineral oil (FLEET MINERAL OIL) enema 133 mL 133 mL (1 enema), rectal, Daily PRN, constipation, if no results 24 hours after bisacodyl, Starting on Margarita 03/29/23 at 2241, Indications: constipation perflutren protein-a (OPTISON) 3 mL in sodium chloride 0.9% 8 mL syringe (COMPLETED) 1-8 mL, intravenous, Once in imaging, contrast, Starting on 03/30/23 at 0824, For 1 dose, Intra-Procedure (CV) 0824 (Contrast Given - Provider: Teo Smith RDCS) documented in this encounter Orders Medications Ordered That Darron ht Not Have Been Administered Count Last Ordered Date First Ordered Date acetaminophen (TYLENOL) tablet 650 mg 1 09/2023 bisacodyl EC (DULCOLAX EC) tablet 10 mg 1 0 03/29/2023 furosemide (LASIX) tablet 10 mg 1 ipratropium-albuteroL (DUO-N EB) 0.5-2.5 mg/3 mL nebulizer solution 3 mL 1 03/29/2023 mineral oil (FLEET MINERAL O [place]) enema 133 mL 1 03/29/[address] (PROTONIX) e xtended release tablet 40 mg 1 03/29/2023 propranoloL (INDERAL) tablet 60 mg 1 2022 vancomycin 1500 mg/250 mL in sodium chloride 0.9% (premix) 1,500 mg 1 03/29/2023 Imaging Orders Without Results Count Last Order ed Date First Ordered Date PEP THERAPY/AIRWAY CLEARANCE 3 03/30/2023 Diet Count Last Ordered Date First Orde red Date ADULT DISCHARGE DIET 1 04/01/2023 Nursing Count Last Ordered Date First Orde red Date DISCHARGE ACTIVITY 1 04/01/2023 DISCHARGE CALL PROVIDER 8 04/01/2023 DISCHARGE INSTRUCTIONS 1 04/01/2023 FOLLOW UP WITH ESTABLISHED PROVIDER 1 04/01 CONTINUOUS PULSE OXIMETRY 1 03/29/2023 NOTIFY PROVIDER (SPECIFY) 1 03/29/[address] PL[address] SEQUENTIAL COMPRESSION DEVICE 1 03/29 WEIGH PATIENT 1 03/29/2023 Consult Count Last Ordered Date First Orde red Date IP CONSULT TO PULMONOLOGY 1 03/29/2023 Isolation Count Last Ordered Date First Orde red Date INITIATE DROPLET ISOLATION 1 03/30/2023 Admission Count Last Ordered Date First Orde red Date ADMIT TO INPATIENT 1 03/29/2023 Discharge Count Last Ordered Date First Orde red Date DISCHARGE PATIENT 1 04/01/2023 CORE MEASURES Count Last Ordered Date First Ord ered Date REASON FOR NO VTE PROPHYLAXI S - HOSPITAL ADMISSION - MEDICATIONS 1 03/29/2023 documented in this encounter Additional Health Concerns Infection Onset Date Last Indicated Resolved Time COVID: Suspected 03/30/2023 03/30/2023 03/30/2023 8:48 PM CDT documented as of this encounter Care Teams Health Associate Relationship Specialty Start Date End Date Watson Perry MD PCP - General Family Medicine 01/24/18 documented as of this encounter
--- OUTSIDE RECORDS SUMMARY | 2024-11-23 15:12 | XMS_ITS | Encounter Summary ---
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 [place] the person's teeth: ?? Wet the toothbrush and place a small amount of toothpaste on it. ?? Gently place the brush onto each tooth, and move it in a [place]. Do not press too hard. This mayinjure the gums. ?? Clean the inner, outer, and top surfaces of the person's teeth. [place] the gums and top of the tongue [...] loosen them. Then pull them out. ?? [place] the dentures at a sink with clean water and denture pin cleaner or toothpaste. ?? [place] the dentures on all surfaces with clean, [...] trouble breathing during mouth care. ?? 2016 [employer]. Information is for End User's use only and may not be sold, redistributed or otherwise used for commercial purposes. All illustrations and images included in CareNotes?? are the copyrighted property of [employer].D.A.M., Inc. or [employer]. The above information is an route aide only. It is not intended as medical advice for individual conditions or treatments. Talk to your doctor, nurse or pharmacist before following any medical regimen to see if it is safe and effective for you. * Attachments The following attachments cannot be sent through Care Everywhere. * Oxycodone/Acetaminophen (By mouth) ([place]) * Cephalexin (By mouth) ([place]) * General Anesthesia (Discharge Care) ([place]) documented in this encounter Medications at Time [...] was used to retract the tongue. A [employer] retractor was used to retract the buccal [...] that you and your doctor have chosen [facility] for your surgery. We hope that the [...] of water. ?? Use no make-up, nail sami, lotions, oils or powders on your skin. [...] AM CDT Narrative 03/19/2018 2:29 PM CDT [facility] Department of Pathology [address] [place] [address] Final Report ?Patient Name: JANETH PARKER Address: [address] [address] [facility] Service: Surgery ??[place], [place] ??[address] Location: [facility] Taken: 03/15/2018 Gender: F Received 03/15/2018 : 1950 (Age: 68) Hospital #: [id number] Accessioned: 03/15/2018 ?? Patient Type: [facility] SDS Reported 03/19/2018 Physician(s): Dr. Lico Wayne, DDomenicoO. ?? Diagnosis: Right lower mandible, excisional biopsy: [...] submitted in one cassette. ??Maxim Sanchez MD/Rossana Harper P.A. Complete report with images are only be viewable in the PDF report The performance characteristics of some immunohistochemical stains, fluorescence in-situ hybridization tests and immunophenotyping by flow cytometry cited in this report (if any) were determined by the Surgical Pathology Department at [facility] as part of an ongoing aircraft quality control inspector program and in compliance with federally mandated [...] characteristics determined by the Surgical Pathology Department [facility]. ??It has not been cleared or approved by the U. S. Food and Drug Administration. Lico Wayne DO LAB PATHOLOGY ORDERABLES Fin al Result * ECG 12 lead (03/15/2018 6:38 AM CDT) Patient age 68 years [facility] Interpretation Text SINUS BRADYCARDIABORDERLINE ECGNO PREVIOUS TRACING [facility] Comment:Physician Interprete r Dr. Bhupendra Lira M.D. Ventricular Rate EKG/Min 59 /min [facility] P Wave Duration 121 ms [facility] QRS-Interval (MSEC) 105 ms [facility] OR-Interval (MSEC) 148 ms [facility] QT Interval 451 ms [facility] QTc 449 ms [facility] QTC Interval ms [facility] P [place] 65 deg [facility] QRS [place] 65 deg [facility] T [place] 68 deg [facility] 03/15/2018 6:38 AM CDT Armida Kang MD ECG ORDERABLES Final Re sult [facility] * SURGICAL PATHOLOGY (03/15/2018 12:00 AM CDT) Narrative 03/15/2018 12:00 AM CDT Ordered by an unspecified provider. Maribel Provider LAB PATHOLOGY ORDERABLES Final Result documented in this encounter Visit Diagnoses Diagnosis Lesion of mandible documented in this encounter Administered Medications Inactive [...] r New Bag 03/15/2018 7:53 AM CDT sodium chloride 0.9% flush 0.5-20 mL 0.5-20 [...] mL IVPB piggyback - ADS Override Pull 03/15/2018 fentaNYL (SUBLIMAZE) 50 mcg/ mL preservative free injection - ADS Override Pull 1 03/15/2018 lidocaine-EPINEPHrine (XYLOC GRECIA with EPI) 1 %-1:100,000 injection 1 03/15/2018 midazolam (VERSED) 1 mg/mL p reservative free injection - ADS Override Pull 1 03/15/2018 sodium chloride (NS) 0.9 % irrigation 1 sodium chloride 0.9% flush 0.5-20 mL 2 02/18 Lab Orders Without Results Count Last Ordered D ate First Ordered Date SURGICAL PATHOLOGY 03/15/2018 Diet Count Last Ordered Date First Orde red Date ADULT DISCHARGE DIET 1 03/15/2018 Nursing Count Last Ordered Date First Orde red Date DISCHARGE ACTIVITY 1 03/15/2018 DISCHARGE CALL PROVIDER 8 03/15/2018 DISCHARGE DRESSING 03/15/2018 DISCHARGE INSTRUCTIONS 03/15/2018 FOLLOW UP WITH PROVIDER 03/15/2018 Discharge Count Last Ordered Date First Orde red Date DISCHARGE PATIENT 1 03/15/2018 documented in this encounter Care Teams Cutter V Groove Relationship Specialty Start Date End Date Watson Perry MD PCP - General Family Medicine 01/24/18 documented as of this encounter
--- OUTSIDE RECORDS SUMMARY | 2024-11-23 15:12 | XMS_ITS | Encounter Summary ---
Author Organization [facility] Healthcare Address [address] [place] [address] Care Team Providers Care Bioinformatics Support Specialist Name Role Phone Watson Perry MD Primary Care Provider [phone] Encounter Details Date Type Department Care Team (Late st Contact Info) Description 06/02/2022 12:20 PM CDT Ancillary Procedure [facility] Outside Films Social History Tobacco Use Types Packs/Day Years Used Date Smoking Tobacco: Every Day Cigarettes Smokeless Tobacco: Never Alcohol Use Standard Drinks/Week Comments No 0 (1 standard drink = 0.6 oz pur e alcohol) Comments Unknown Sex and Gender Information Value Date Recorded Sex Assigned at Not on file 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 us Not In File Miscellaneous IMG CT PROCEDURES Tiffanie l Result [facility] documented in this encounter Visit Diagnoses Not on filedocumented in this encounter Care Teams Bioinformatics Support Specialist Relationship Specialty Start Date End Date Watson Perry MD PCP - General Family Medicine 01/24/18 documented as of this encounter
--- OUTSIDE RECORDS SUMMARY | 2024-11-23 15:12 | XMS_ITS | Encounter Summary ---
Author Organization [facility] Address [address] [place] [address] Care Team Providers Care Network Engineering Advisor Name Role Phone Watson Perry MD Primary Care Provider [phone] Encounter Details Date Type Department Care Team (Late st Contact Info) Description 01/01/2023 Orders Only [facility] Pulmonary at [address] [place] [address] Selam Chu LPN Chronic respiratory failure with hypoxia (CMS/HCC) (HCC) (Primary Dx) Social History Tobacco Use Types Packs/Day Years Used Date Smoking Tobacco: Former Cigarettes 1 50 0 05/18/1972 - 05/18/2022 Smokeless Tobacco: Never Alcohol Use Standard Drinks/Week Comments No 0 (1 standard drink = 0.6 oz pur e alcohol) Comments Unknown Sex and Gender Information Value Date Recorded Sex Assigned at Not on file Legal 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
--- OUTSIDE RECORDS SUMMARY | 2024-11-23 15:12 | XMS_ITS | Encounter Summary ---
Author Organization [facility] Address [address] [place] [address] Care Team Providers Care Tax Form Preparer Name Role Phone Watson Perry MD Primary Care Provider [phone] Reason for Visit * Reason Comments Post-op Encounter Details Date Type Department Care Team (Late st Contact Info) Description 04/03/2018 4:20 PM CDT Office Visit [facility] [address] [place] [address] [address] [id number] Lico Wayne, DO [facility] [place] [address] Torus mandibularis (Primary Dx) Social History Tobacco Use Types Packs/Day Years Used Date Smoking Tobacco: Every Day Cigarettes Smokeless Tobacco: Never Alcohol Use Standard Drinks/Week Comments No 0 (1 standard drink = 0.6 oz pur e alcohol) Comments Unknown Sex and Gender Information Value Date Recorded Sex Assigned at Not on file Legal Sex Female 1:09 PM CENTER 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 female. Chief Complaint Post-op History of Present Illness Patient returns back to my office status post excisional biopsy of a right torus mandibularis. The final pathology came back consistent with exostosis/osteophyte. Patient denies any postoperative issues. She states the area is healed up nicely. Patient is very happy with the postoperative outcome. Review of Systems Negative Physical Exam Oral cavity oropharynx: Surgical site is healing nicely. There is no exposed bone. Incision site isclean and intact. Assessment/Plan Diagnoses and all orders for this visit: Torus mandibularis (Primary) Assessment & Plan: Patient has done extremely well status post excisional biopsy of the torus mandibularis. She is very happy with the postoperative outcome. The operative site is healed up nicely. documented in this encounter Miscellaneous Notes * Assessment & Plan Note - Lico Wayne DO - 04/08/2018 9:03 AM CDT Associated Problem(s): Torus mandibularis Patient has done extremely well status post excisional biopsy of the torus mandibularis. She is very happy with the postoperative outcome. The operative site is healed up nicely. documented in this encounter Plan of Treatment Not on file documented as of this encounter Visit Diagnoses Diagnosis Torus mandibularis- Primary Exostosis of jaw documented in this encounter Care Teams Tax Form Preparer Relationship Specialty Start Date End Date Watson Perry MD PCP - General Family Medicine 01/24/18 documented as of this encounter
--- OUTSIDE RECORDS SUMMARY | 2024-11-23 15:12 | XMS_ITS | Encounter Summary ---
Author Organization [facility] Address [address] [place] [address] Care Team Providers Care Head Of Operation And Logistics Name Role Phone Watson Perry MD Primary Care Provider [phone] Reason for Visit * Reason Onset Date Comments Portable Concentrator 03/12/2023 Encounter Details Date Type Department Care Team (Late st Contact Info) Description 03/12/2023 Telephone [facility] Pulmonary at [address] [place] [address] Selam Chu LPN Portable Concentrator Social History Tobacco Use Types Packs/Day Years Used Date Smoking Tobacco: Former Cigarettes 1 50 0 05/18/1972 - 05/18/2022 Smokeless Tobacco: Never Alcohol Use Standard Drinks/Week Comments No 0 (1 standard drink = 0.6 oz pur e alcohol) Comments Unknown Sex and Gender Information Value Date Recorded Sex Assigned at Not on file 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 [employer] # given [phone], and [phone]. Instructed pt to let us know if she needs anymore assistance. Pt verbalizes good understanding. * Telephone Encounter - Selam Chu LPN - 03/12/2023 2:42 PM CDT Called pt, no answer, left message for pt to call office I called [facility] and spoke with Joshua Apodaca, for pt to qualify for a portable oxygen concentrator she has to use a minimum of 8 tanks a month for 3 months to qualify. I am going to give her [employer] # to call [phone]. documented in this encounter Plan of Treatment Not on file documented as of this encounter Visit Diagnoses Not on filedocumented in this encounter Care Teams Head Of Operation And Logistics Relationship Specialty Start Date End Date Watson Perry MD PCP - General Family Medicine 01/24/18 documented as of this encounter
--- OUTSIDE RECORDS SUMMARY | 2024-11-23 15:12 | XMS_ITS | Encounter Summary ---
Author Organization [facility] Address [address] [place] [address] Care Team Providers Care Feather Stitcher Name Role Phone Watson Perry MD Primary Care Provider [phone] Encounter Details Date Type Department Care Team (Late st Contact Info) Description 08/09/2022 9:00 AM CDT Ancillary Procedure [facility] Outside Films Social History Tobacco Use Types Packs/Day Years Used Date Smoking Tobacco: Every Day Cigarettes Smokeless Tobacco: Never Alcohol Use Standard Drinks/Week Comments No 0 (1 standard drink = 0.6 oz pur e alcohol) Comments Unknown Sex and Gender Information Value Date Recorded Sex Assigned at Not on file 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 Procedure Note Duyen Bonner - 09/15/2022 This order has been auto-finalized and does not contain a result. us Not In File Miscellaneous IMG CT PROCEDURES Tiffanie l Result [facility] documented in this encounter Visit Diagnoses Not on filedocumented in this encounter Care Teams Feather Stitcher Relationship Specialty Start Date End Date Watson Perry MD PCP - General Family Medicine 01/24/18 documented as of this encounter
--- OUTSIDE RECORDS SUMMARY | 2024-11-23 15:12 | XMS_ITS | Encounter Summary ---
Author Organization [facility] Address [address] [place] [address] Care Team Providers Care Medical Lab Technician Name Role Phone Watson Perry MD Primary Care Provider [phone] Reason for Visit * Reason Comments Emphysema Encounter Details Date Type Department Care Team (Late st Contact Info) Description 03/12/2023 10:15 AM CDT Office Visit [facility] Pulmonary at [address] [place] [address] Efren Villanueva MD [address] [place] [address] [address] [place] [address] Centrilobular emphysema (HCC) (Primary Dx); Chronic respiratory failure with hypoxia (CMS/HCC) (HCC); Nicotine dependence, cigarettes, in remission Social History Tobacco Use Types Packs/Day Years Used Date Smoking Tobacco: Former Cigarettes 1 50 0 05/18/1972 - 05/18/2022 Smokeless Tobacco: Never Alcohol Use Standard Drinks/Week Comments No 0 (1 standard drink = 0.6 oz pur e alcohol) Comments Unknown Sex and Gender Information Value Date Recorded Sex Assigned at Not on file Legal 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 Gender Identity Not on file Sexual Orientation Not on file documented as of this encounter Last Filed Vital Signs Vital Sign Reading Time Taken Comments Blood Pressure 110/60 03/12/2023 10:18 AM CDT Pulse 73 03/12/2023 10:18 AM CDT Temperature 36.4 ??C (97.5 ??F) 03/12/2023 10:18 AM C DT Respiratory Rate 16 03/12/2023 10:18 AM CDT Oxygen Saturation 90% 03/12/2023 10:18 AM CDT Inhaled Oxygen Concentration - - Weight 78.2 kg (172 lb 6.4 oz) 03/12/2023 10:18 AM CDT Height 165.1 cm (5' 5 ) 03/12/2023 10:18 AM CDT Body Mass Index 28.69 03/12/2023 10:18 AM CDT documented in this encounter Progress Notes * Efren Villanueva MD - 03/12/2023 10:15 AM CDT Images from the original note were not included. PULMONARY CLINIC NOTE Visit Date: 03/12/2023 Chief Complaint: Presents today for Dyspnea on exertion HPI: Janeth Parker is a 73 y.o. female w/ PMH of emphysema, chronic respiratory failure with hypoxia who presents on 03/12/2023 for evaluation of dyspnea. The patient was first seen in August of 2022, at that time she reported being hospitalized in May2022 at [facility] for a week for Covid-19 pneumonia. Hospitalization was complicated by hypercapnic respiratory failure requiring bipap in the ICU. She was subsequently discharged with a new oxygen requirement. After discharge, she had started on trelegy and had previously on Breo Interval History: No significant changes in the interval. 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 No exacerbations in the interval. Using trelegy oncedaily. Not using her rescue inhaler Exposure History: No relevant exposures. Past Medical [...] systems is negative. OBJECTIVE: Physical Exam: Vitals: 03/12/23 1018 BP: 110/60 BP Location: Left arm Patient Position: Sitting Pulse: 73 Resp: 16 Temp: 36.4 ??C (97.5 ??F) TempSrc: Temporal SpO2: 90% Weight: 78.2 kg (172 lb 6.4 oz) Height: 165.1 cm (5' 5 ) [...] warm and dry Data Review: CT chest without contrast 12/11/2022: Personally reviewed [...] no exacerbations in the interval - we briefly discussed pulmonary rehab25 2. Chronic respiratory failure with hypoxia (CMS/HCC) (HCC) - continue supplemental oxygen as prescribed - follow-up on portable oxygen concentrator or greater mobility 3. Cigarette nicotine dependence in remission - low-dose CT scan for lung cancer screening in November of 2023 My total encounter time on 03/12/2023 was 25 minutes which was spent in the activities documented inthe note. This includes time spent prior to the visit and after the visit in direct care of the patient. This time does not include time spent in any separately reportable services. Efren Villanueva MD There may be syntax/grammatical errors in this note due to the use of voice recognition software. documented in this encounter Plan of Treatment Not on file documented as of this encounter Visit Diagnoses Diagnosis Centrilobular emphysema (HCC)- Primary Chronic respiratory failure with hypoxia (CMS/HCC) (HCC) Nicotine dependence, cigarettes, in remission documented in this encounter Historical Medications * This list may reflect changes made after this encounter. furosemide (LASIX) 20 mg tablet Take 0.5 tablets (10 mg total) by mouth daily added in this encounter Care Teams Medical Lab Technician Relationship Specialty Start Date End Date Watson Perry MD PCP - General Family Medicine 01/24/18 documented as of this encounter
--- OUTSIDE RECORDS SUMMARY | 2024-11-23 15:12 | XMS_ITS | Encounter Summary ---
Author Organization [facility] Address [address] [place] [address] Care Team Providers Care Face Cleaner Name Role Phone Watson Perry MD Primary Care Provider [phone] Encounter Details Date Type Department Care Team (Late st Contact Info) Description 03/15/2018 7:53 AM CDT Anesthesia Event [facility] Operating Room [address] [place] [address] [place] [address] [id number] [place] [id number] [address] Anesthesia Record Procedure Summary Procedure Name Responsible Anesthesiologist Anesthesia Start Time Anesthesia Stop Time Excision lesion right mandible (Right: Mouth) Yani Brown MD 03/15/18 0753 03/15/18 0845 Events Date Time Event Comment 03/15/2018 0706 0753 In Room 0753 An Start 0753 An Start Data 0756 An Induction The patient was reevaluated immediately before moderate or deep sedation use and before anesthesia induction. 0757 An Intubation 0759 Anesthesia Ready 0802 Proc Start 0804 Incision Start 0817 Proc Fin 0823 An Extubation 0824 an stop data 0840 Out of Room 0844 Handoff to RN I completed my handoff to the receiving nurse during which we: 1. Patient identified 2. Responsible provider identified 3. Pertinent medical history reviewed 4. Procedure type and surgical course discussed 5. Intraoperative anesthetic management and any significant issues discussed 6. Expectations and concerns for postop period discussed 7. Questions solicited from receiving nurse 8. Patient disposition at the time of handoff: No value filed. 0845 An Stop Meds Name Total midazolam 2 mg propofol 150 mg lidocaine (cardiac) syringe 2 % 100 mg succinylcholine 100 mg phenylephrine 600 mcg ondansetron 4 mg dexamethasone 10 mg clindamycin 900 mg 900 mg ketorolac 30 mg Lactated Ringer's (LR) infusion 0 mL * Agents Name Sevoflurane Inspired Sevoflurane * Blood No blood administrations on file. Lines, Drains, and Airways Type Details Placement Removal Peripheral IV Placement Date: 03/15/18; Placement Time: 623; Catheter Size: 20 G; Orientation: Left; Location: Hand; Removal Date: 03/15/18; Removal Time: 1006 03/15/18 0624 by Es Copeland RN 03/15/18 100 by Es Copeland RN ETT Placement Date: 03/15/18; Placement Time: 08 (created via procedure documentation); Mask Ventilation: 2; Technique: Direct laryngoscopy; Type: ETT - single; Single Lumen Tube Size: 7 mm; Cuffed: Yes; Laryngoscope: Benita; Blade Size: 3; Location: Oral; Grade View: Grade I; Insertion Attempts: 1; Placement Verification: Auscultation, Capnometry; Removal Date: 03/15/18; Removal Time: 0803/15/18 0807 by Maureen Iverson CRNA 03/15/18 0823 by Maureen Iverson CRNA RETIRED Surgical Site 03/15/18; 0814; Ri ght; Mouth; RIGHT LOWER MANDIBLE; 03/29/23; 214903/15/18 0814 by Vianey Christianson RN 03/29/232149 by Jahaira Prater RN documented in this encounter Social History Tobacco Use Types Packs/Day Years Used Date Smoking Tobacco: Every Day Cigarettes Smokeless Tobacco: Never Alcohol Use Standard Drinks/Week Comments No 0 (1 standard drink = 0.6 oz pur e alcohol) Comments Unknown Sex and Gender Information Value Date Recorded Sex Assigned at Not on file 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 Gender Identity Not on file Sexual Orientation Not on file documented as of this encounter OR Notes * Anesthesia Postprocedure Evaluation - Maureen Iverson CRNA - 03/15/2018 8:44 AM CDT Patient: Janeth Parker Procedure Summary Date: 03/15/18 Room / Location: [facility] OR [address] [place] [address] OPERATING ROOM Anesthesia Start: 0753 Anesthesia Stop: Procedure: Excision lesion right mandible (Right Mouth) Diagnosis: (lesion rt mandible ) Provider: Lico Wayne DO Responsible Provider: Yani Brown MD Anesthesia Type: general ASA Status: 3 Anesthesia Type: general Last vitals BP Temp Pulse Resp SpO2 Anesthesia Post Evaluation Patient location during evaluation: PACU Patient participation: waiting for patient participation 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 Pain score: 0 Pain management: adequate Airway patency: adequate and patent Evidence of recall: no Anesthetic complications: no Cardiovascular status: acceptable and hemodynamically stable Respiratory status: acceptable and face mask Hydration status: acceptable Pt is: normothermic Nausea/Vomiting status: none * Anesthesia Procedure Notes - Maureen Iverson CRNA - 03/15/2018 8:07 AM CDTAssociated Order(s): ANESTHESIA INTUBATION Airway Patient location: OR Urgency: elective Indications for airway management: anesthesia Difficult airway: no Staff: Supervising provider: YANI BROWN Placed by: TRANSFORMATION MANAGER: MAUREEN IVERSON Emergent airway documentation: Risks and benefits discussed: yes Consent obtained: yes Consent given by: patient Airway prep: Preoxygenated: yes Patient position: sniffing MILS maintained throughout: yes Mask difficulty assessment: 2 - vent by mask + OA or adjuvant Spontaneous ventilation during airway: absent Sedation level during airway: deep Final airway details: Final airway type: endotracheal airway Tube type: ETT ETT size: 7.0 mm Cuffed: yes Technique used for successful ETT placement: direct laryngoscopy Devices/Methods used in placement: intubating stylet Insertion site: oral Blade type: Benita Blade size: 3 Cormack-Lehane (direct): grade I - full view of glottis Cuff inflated with: air Placement verified by: auscultation and CO2 detection Airway secured with: silk tape Number of attempts: 1 * Anesthesia Preprocedure Evaluation - Gracia Hale MD PhD - 03/15/2018 7:05 AM CDT Anesthesia Evaluation Janeth Parker is a 68 y.o. female HISTORY Past Medical History Neurological Neuro/Psych system: negative Cardiovascular + Other arrythmia - sinus tachycardia. Respiratory + COPD + Current smoker - Counseled to abstain from smoking the day of surgery. Patient smoked on day of surgery. Gastrointestinal + GERD Endocrine / Other + Cancer history Cancer type: skin BCC. Functional Capacity Functional capacity: 6-10 METs Patient Active Problem List Diagnosis ??? Torus mandibularis Past Medical History: Diagnosis Date ??? Cancer (CMS/HCC) Skin BCC ??? COPD (chronic obstructive pulmonary disease) (CMS/HCC) ??? Deviated nasal septum ??? Occasional tremors Hands and Head, going to see Neurologist ??? Peptic ulceration ??? Tachycardia Past Surgical History: Procedure Laterality Date ??? BUNIONECTOMY Right ??? ELBOW SURGERY Right Tendonitis ??? OTHER SURGICAL HISTORY basal cell carcinoma ??? THUMB SURGERY Arthroplasty OB History No data available Allergies Allergen Reactions ??? Ibuprofen Rash HOME MEDICATIONS : calcium citrate-vitamin D3 250 mg calcium- 200 unit tablet citalopram (CeleXA) 20 mg tablet clonazePAM (KlonoPIN) 1 mg tablet diphenhydrAMINE (BENADRYL) [address] (NexIUM) 20 mg capsule fluticasone-vilanterol (BREO ELLIPTA) 100-25 mcg/dose diskus inhaler naproxen sodium 220 mg capsule pramipexole (MIRAPEX) 1.5 mg tablet propranolol LA (INDERAL LA) 60 mg 24 hr capsule cephalexin (KEFLEX) 500 mg capsule oxyCODONE-acetaminophen (PERCOCET) 5-325 mg per tablet Current Facility-Administered Medications: ??? ceFAZolin (ANCEF) 1,000 mg in sodium chloride 0.9% 100 mL IVPB, 1,000 mg, intravenous, Once ??? Lactated Ringer's (LR) infusion, 30 mL/hr, intravenous, Continuous, Last Rate: 30 mL/hr at 03/15/18 0632, 30 mL/hr at 03/15/1832 ??? sodium chloride 0.9% flush 0.5-20 mL, 0.5-20 mL, intra-catheter, PRN Social History Smoking Status ??? Current Every Day Smoker ??? Packs/day: 0.25 Smokeless Tobacco ??? Never Used Alcohol Use No Drug Use No Family History Problem Relation Age of Onset ??? Cancer Neg Hx PAT Physical Exam Vitals: 03/15/18614 BP: 106/67 Pulse: 61 Resp: 20 Temp: 36.2 ??C (97.1 ??F) SpO2: 93% PT: No results found for requested labs within last 720 hours. INR: No results found for requested labs within last 720 hours. APTT: No results found for requested labs within last 720 hours. Hgb A1C: No results found for requested labs within last 720 hours. CBC RBC: No results found for requested labs within last 720 hours. RDW: No results found for requested labs within last 720 hours. MCHC: No results found for requested labs within last 720 hours. MCH: No results found for requested labs within last 720 hours. MCV: No results found for requested labs within last 720 hours. Hct: No results found for requested labs within last 720 hours. Hgb: No results found for requested labs within last 720 hours. WBC: No results found for requested labs within last 720 hours. MPV: No results found for requested labs within last 720 hours. Platelets: No results found for requested labs within last 720 hours. RDW CV: No results found for requested labs within last 720 hours. RDW Sd: No results found for requested labs within last 720 hours. BMP Glucose: No results found for requested labs within last 720 hours. Calcium: No results found for requested labs within last 720 hours. Sodium: No results found for requested labs within last 720 hours. Potassium: No results found for requested labs within last 720 hours. CO2: No results found for requested labs within last 720 hours. Chloride: No results found for requested labs within last 720 hours. BUN: No results found for requested labs within last 720 hours. Creatinine: No results found for requested labs within last 720 hours. STOP-Bang Total Score: 1 DOS Physical Exam Medical history, medications, and allergies reviewed. Attestation: I endorse the findings of the anesthesia pre-evaluation assessment dated: 03/15/2018. Airway Exam: Mallampati: II Cervical ROM: FROM TM distance: normal Jaw ROM: full Cardiovascular Exam: Rate: regular Rhythm: regular Pulmonary Exam: LCTA, bilat EENT Exam: trachea midline Dental Exam: Appears intact Skin Exam: Skin is warm. Turgor is normal. Current state: Patient's current state is cooperative and interactive. Anesthesia Plan ASA 3 Planned anesthesia: General Team communication plan: oral ET tube Induction: Induction: intravenous. Postoperative Plan: Postoperative administration opioids intended. No postoperative mechanical ventilation intended. Patient's planned disposition post procedure is Outpatient. Informed Consent: Discussed plan with TRANSFORMATION MANAGER. Anesthesia plan and risks discussed with patient and spouse. Consent and Attending signature: I and/or my designee have discussed the anesthesia plan, benefits, possible alternatives, parental presence at time of induction (if indicated), and clinically relevant risks that may include dental injury, unintentional awareness, and/or other complications. The patient and/or parent/legal guardian understand, and agree to proceed. All questions answered. documented in this encounter Plan of Treatment Not on file documented as of this encounter Procedures Procedure Name Priority Date/Time Associated Diagnosis Comments WI AN ELECTIVE ENDOTRACHEAL AIRWAY Routine 03/15/2018 8:07 AM CDT Procedure Note - Maureen Iverson CRNA - 03/15/2018 8:07 AM CDTThis note is in progress. Airway Patient location: OR Urgency: elective Indications for airway management: anesthesia Difficult airway: no Staff: Supervising provider: YANI BROWN Placed by: SARA: MAUREEN IVERSON Emergent airway documentation: Risks and benefits discussed: yes Consent obtained: yes Consent given by: patient Airway prep: Preoxygenated: yes Patient position: sniffing MILS maintained throughout: yes Mask difficulty assessment: 2 - vent by mask + OA or adjuvant Spontaneous ventilation during airway: absent Sedation level during airway: deep Final airway details: Final airway type: endotracheal airway Tube type: ETT ETT size: 7.0 mm Cuffed: yes Technique used for successful ETT placement: direct laryngoscopy Devices/Methods used in placement: intubating stylet Insertion site: oral Blade type: Benita Blade size: 3 Cormack-Lehane (direct): grade I - full view of glottis Cuff inflated with: air Placement verified by: auscultation and CO2 detection Airway secured with: silk tape Number of attempts: 1 documented in this encounter Visit Diagnoses Not on filedocumented in this encounter Administered Medications Inactive Administered Medications - up to 3 most recent administrations Medication Order MAR Action Action Date Dose Rate Site clindamycin (CLEOCIN) 900 mg/50 mL IVPB piggyback intravenous, Administer over 60 Minutes, As needed, Starting on Sun03/15/18 at 0805, Anesthesia Intra-op Given 03/15/2018 8:05 AM CDT 900 mg dexamethasone (DECADRON) injection intravenous, As needed, Starting on Sun03/15/18 at 0805, Anesthesia Intra-op Given 03/15/2018 8:05 AM CDT 10 mg ketorolac (TORADOL) injection As needed, Starting on Sun03/15/18 at 0814, Anesthesia Intra-op Given 03/15/2018 8:14 AM CDT 30 mg Lactated Ringer's (LR) infusion 30 mL/hr, intravenous, Continuous, Starting on Sun03/15/18 at 0745, Pre-Op New Bag 03/15/2018 9:00 AM CDT 30 mL/hr 30 mL/h r New Bag 03/15/2018 7:53 AM CDT lidocaine (cardiac) (XYLOCAINE) preservative free injection intravenous, As needed, Starting on Sun03/15/18 at 0756, Anesthesia Intra-op, Indications: Ventricular ArrhythmiasIndications:Ventricular Arrhythmias Given 03/15/2018 7:56 AM CDT 100 mg midazolam (VERSED) preservative free injection intravenous, As needed, Starting on Sun03/15/18 at 0753, Anesthesia Intra-op Given 03/15/2018 7:53 AM CDT 2 mg ondansetron (ZOFRAN) injection intravenous, As needed, nausea, vomiting, Starting on Sun03/15/18 at 0805, Anesthesia Intra-op Given 03/15/2018 8:05 AM CDT 4 mg phenylephrine (MICHELLE-SYNEPHRINE) injection intravenous, As needed, Starting on Sun03/15/18 at 0800, Anesthesia Intra-op Given 03/15/2018 8:11 AM CDT 200 mcg Given 03/15/2018 8:06 AM CDT 200 mcg Given 03/15/2018 8:00 AM CDT 200 mcg propofol (DIPRIVAN) IV intravenous, As needed, Starting on Sun03/15/18 at 0756, Anesthesia Intra-op Given 03/15/2018 7:56 AM CDT 150 mg succinylcholine (ANECTINE) injection intravenous, As needed, Starting on Sun03/15/18 at 0756, Anesthesia Intra-op Given 03/15/2018 7:56 AM CDT 100 mg documented in this encounter Orders Medications Ordered That Darron ht Not Have Been Administered Count Last Ordered Date First Ordered Date fentaNYL (SUBLIMAZE) preserv ative free injection 1 03/15/2018 Procedures Count Last Ordered Date First Orde red Date ANESTHESIA INTUBATION 1 03/15/2018 documented in this encounter Care Teams Face Cleaner Relationship Specialty Start Date End Date Watson Perry MD PCP - General Family Medicine 01/24/18 documented as of this encounter
--- OUTSIDE RECORDS SUMMARY | 2024-11-23 15:12 | XMS_ITS | Encounter Summary ---
Author Organization [facility] Address [address] [place] [address] Care Team Providers Care Channel Marketing Coordinator Name Role Phone Watson Perry MD Primary Care Provider [phone] Reason for Referral * MRI/CAT/PET Scan (Routine) - Closed Specialty Diagnoses / Procedures Referred By Contac t Referred To Contact Radiology Diagnoses Lung nodule Procedures CT chest without contrast Efren Villanueva MD Phone: tel: fax: [address] [phone] Referral ID Status Reason Start Date Expiration Date Visits Re quested Visits Authorized [id number] Closed 11/16/2022 05/15/2023 1 1 OND SANDER Reason for Visit * MRI/CAT/PET Scan (Routine) - Closed Specialty Diagnoses / Procedures Referred By Contac t Referred To Contact Radiology Diagnoses Lung nodule Procedures CT chest without contrast Efren Villanueva MD Phone: tel: fax: [address] [phone] Referral ID Status Reason Start Date Expiration Date Visits Re quested Visits Authorized [id number] Closed 11/16/2022 05/15/2023 1 1 Encounter Details Date Type Department Care Team (Latest Contact Info) Description 12/11/2022 8:30 AM DIAMOND SANDER - 12/11/2022 11:59 PM DIAMOND SANDER Hospital Encounter [facility] [address] [place] [address] Lung nodule Discharge Disposition: Discharge to home or self [...] on file Legal Sex Female 1:09 PM DIAMOND SANDER Gender Identity Not on file Sexual Orientation [...] total) by mouth nightly at bedtime. 11/16/2022 calcium citrate-vitamin D3 250 mg calcium- 200 unit tablet Take by mouth 2 (two) times a day. 3 cephalexin (KEFLEX) 500 mg capsuleIndicatio ns:Prophylaxis, Medical Take 1 capsule (500 mg total) by mouth 3 (three) times a day. 21 capsule 03/15/2018 3 diphenhydrAMINE (BENADRYL) 50 mg capsule Take 50 mg by mouth every 6 (six) hours as needed for itching. 3 naproxen sodium 220 mg capsuleIndicatio ns:stop before surgery Take 220 mg by mouth 2 (two) times a day as needed. 3 Trelegy Ellipta 200-62.5-25 mcg inhaler Inhale 1 puff daily 90 each 3 09/14/2022 3 documented as of this encounter Discharge Disposition Disposition Code Departure Means Destination Discharge to home or self care documented in this encounter Plan of Treatment Not on file documented as of this encounter Procedures Procedure Name Priority Date/Time Associated Diagnosis Comments CT CHEST WO CONTRAST Schedule Routine, Read Routine (OP Routine) 12/11/2022 8:49 AM DIAMOND SANDER Lung nodule documented in this encounter Results * CT chest without contrast (12/11/2022 8:49 AM DIAMOND SANDER) Anatomical Region Laterality Modality Body N/A Computed Tomogra phy 12/12/2022 9:41 AM DIAMOND SANDER Narrative 12/12/2022 9:49 AM DIAMOND SANDER EXAM DESCRIPTION: ?? CT CHEST WO CONTRAST REASON FOR STUDY: ?? History of COVID in May. ??Patient still on oxygen. ?? History of COPD. ?? Pulmonary nodule follow-up. TECHNIQUE: CT scan of the chest performed without intravenous contrast using helical scanning technique. Reconstructed coronal and sagittal MPR images reviewed. ??All images stored on PACS. ??Automated exposure control was used as a dose optimization technique for this examination. COMPARISON: ?? CT chest dated October 03, 2022 FINDINGS: The sensitivity for detection of solid visceral lesions is diminished without the use of intravenous contrast. LUNGS: ?? The central airway is patent. ??A few scattered ground-glass airspace opacities are seen. ??Within the right upper lobe there is a 1 cm ground-glass airspace opacity (axial image 29; 1 cm remeasured). ??Area of subsegmental atelectasis is present within right lower lobe medially adjacent to the spine. Ground-glass opacity in the left upper lobe measures a maximum of 0.8 cm (axial image 16; stable). ??A few other small scattered ground-glass pulmonary nodules are seen also stable. PLEURA: ?? No effusion. No pneumothorax. MEDIASTINUM/WARREN: ?? No identified masses or abnormal nodes. ?? A 1 cm nodules present within the right lobe of the thyroid (axial image 6; stable). HEART: ?? Heart size is normal with no pericardial effusion. CORONARY ARTERY CALCIFICATION: ??Present VASCULATURE: ?? No thoracic aortic aneurysm. ?? Evidence of great vessel calcified atherosclerosis. AXILLA: ?? Bilateral mildly prominent axillary lymph nodes are seen. ??The largest is present in the right axilla measuring a maximum of 1.5 x 1.2 cm (axial image 27; stable). CHEST WALL: ?? No masses. ??No subcutaneous air. HARDWARE/LINES/TUBES: ?? None. UPPER ABDOMEN: ?? No significant abnormality. MUSCULOSKELETAL: ?? No significant abnormality. OTHER: ?? No other significant abnormality. IMPRESSION: 1. ?? Several bilateral ground-glass airspace opacities largest measuring 1 cm right upper lobe, stable. Continued follow-up as per guidelines below. 2. ?? Bilateral mildly prominent axillary lymph nodes-stable. Further evaluation is warranted if not already performed. Recent guidelines by the Fleischner Society (Radiology 535077,2017) divides patient into low vs. high risk (for example, patients who smoke are considered high risk) and provides followup recommendations as follows: SOLITARY PURE GROUND-GLASS NODULE: Patients with a solitary pure ground-glass nodule less than 6 mm do not require follow-up. ??Larger than 6 mm Solitary pure ground-glass nodule require CT in 6 to 12 months to confirm persistence, followed with CT every 2 years until 5 years. ??If grows or increasingly solid, consider resection. MULTIPLE PURE GROUND-GLASS NODULES: Patients with Multiple pure ground-glass nodules less than [address] in 3 to 6 months. ??If unchanged, consider CT in 2 and 4 years. ??Larger than 6 mm Multiple pure ground-glass nodules require CT at 3 to 6 months. ??The management based on most suspicious nodule(s). Note: These recommendations do not apply to lung cancer screening, patients with immunosuppression, or patients with known primary cancer. http://pubs.rsna.org/doi/pdf/10.1148/radiol.7071554741 THIS IS AN ELECTRONICALLY VERIFIED FINAL REPORT 12/12/2022 9:49 AM - Electronically signed by ??Jayesh Eaton M.D. JA: ANDREW D: ??12/12/2022 9:49 AM T: ??12/12/2022 9:49 AM Report ID: [id number] Reading Location: ??[id number] Procedure Note Jayesh Eaton MD - 12/12/2022 EXAM DESCRIPTION: CT CHEST WO CONTRAST REASON FOR STUDY: History of COVID in May. Patient still on oxygen. History of COPD. Pulmonary nodule follow-up. TECHNIQUE: CT scan of the chest performed without intravenous contrastusing helical scanning technique. Reconstructed coronal and sagittal MPR images reviewed. All images stored on PACS. Automated exposure control was usedas a dose optimization technique for this examination. COMPARISON: CT chest dated October 03, 2022 FINDINGS: The sensitivity for detection of solid visceral lesions is diminishedwithout the use of intravenous contrast. LUNGS: The central airway is patent. A few scattered ground-glassairspace opacities are seen. Within the right upper lobe there is a 1 cmground-glass airspace opacity (axial image 29; 1 cm remeasured). Area of subsegmental atelectasis is present within right lower lobe medially adjacent to thespine. Ground-glass opacity in the left upper lobe measures a maximum of 0.8 cm (axial image 16; stable). A few other small scattered ground-glasspulmonary nodules are seen also stable. PLEURA: No effusion. No pneumothorax. MEDIASTINUM/WARREN: No identified masses or abnormal nodes. A 1 cmnodules present within the right lobe of the thyroid (axial image 6; stable). HEART: Heart size is normal with no pericardial effusion. CORONARY ARTERY CALCIFICATION: Present VASCULATURE: No thoracic aortic aneurysm. Evidence of great vessel calcified atherosclerosis. AXILLA: Bilateral mildly prominent axillary lymph nodes are seen. The largest is present in the right axilla measuring a maximum of 1.5 x 1.2 cm (axial image 27; stable). CHEST WALL: No masses. No subcutaneous air. HARDWARE/LINES/TUBES: None. UPPER ABDOMEN: No significant abnormality. MUSCULOSKELETAL: No significant abnormality. OTHER: No other significant abnormality. IMPRESSION: 1. Several bilateral ground-glass airspace opacities largest measuring 1cm right upper lobe, stable. Continued follow-up as per guidelines below. 2. Bilateral mildly prominent axillary lymph nodes-stable. Further evaluation is warranted if not already performed. Recent guidelines by the Fleischner Society (Radiology 812613,2017)divides patient into low vs. high risk (for example, patients who smoke areconsidered high risk) and provides followup recommendations as follows: SOLITARY PURE GROUND-GLASS NODULE: Patients with a solitary pureground-glass nodule less than 6 mm do not require follow-up. Larger than 6 mm Solitary pure ground-glass nodule require CT in 6 to 12 months to confirmpersistence, followed with CT every 2 years until 5 years. If grows or increasinglysolid, consider resection. MULTIPLE PURE GROUND-GLASS NODULES: Patients with Multiple pureground-glass nodules less than [address] in 3 to 6 months. If unchanged,consider CT in 2 and 4 years. Larger than 6 mm Multiple pure ground-glass nodulesrequire CT at 3 to 6 months. The management based on most suspicious nodule(s). Note: These recommendations do not apply to lung cancer screening,patients with immunosuppression, or patients with known primary cancer. http://pubs.rsna.org/doi/pdf/10.1148/radiol.0733179080 THIS IS AN ELECTRONICALLY VERIFIED FINAL REPORT 12/12/2022 9:49 AM - Electronically signed by Jayesh Eaton M.D. JA: ANDREW Report ID: [id number] Reading Location: [place] [address] Efren Villanueva MD IM CT PROCEDURES Final Result documented in this encounter Visit Diagnoses Diagnosis Lung nodule Other diseases of lung, not elsewhere classified documented in this encounter Care Teams Channel Marketing Coordinator Relationship Specialty Start Date End Date Watson Perry MD PCP - General Family Medicine 01/24/18 documented as of this encounter
--- OUTSIDE RECORDS SUMMARY | 2024-11-23 15:12 | XMS_ITS | Encounter Summary ---
Author Organization [facility] Address [address] [address] Care Team Providers Care Cloth Printer Helper Name Role Phone Watson Perry MD Primary Care Provider [phone] Reason for Referral * MRI/CAT/PET Scan (Routine) - Closed Specialty Diagnoses / Procedures Referred By Contac t Referred To Contact Radiology Diagnoses Lung consolidation (HCC) Procedures CT chest without contrast Efren Villanueva MD Phone: tel: fax: [address] [address] Referral ID Status Reason Start Date Expiration Date Visits Re quested Visits Authorized [id number] Closed 09/15/2022 03/14/2023 1 1 * Procedure (Routine) - Closed Specialty Diagnoses / Procedures Referred By Contac t Referred To Contact Diagnoses Centrilobular emphysema (HCC) Procedures Pulmonary Function Test -[facility]; Complete PFT with 6 Minute Walk Efren Villanueva MD Phone: tel: fax: Referral ID Status Reason Start Date Expiration Date Visits Re quested Visits Authorized [id number] Closed 09/14/2022 10/14/2023 1 1 Reason for Visit * Reason Comments COPD Encounter Details Date Type Department Care Team (Late st Contact Info) Description 09/14/2022 11:15 AM CDT Office Visit [facility] Pulmonary at [address] [place] [id number] Efren Villanueva MD [address] [place] [address] [address] [place] [address] Lung consolidation (HCC) (Primary Dx); Centrilobular emphysema (CMS/HCC) (HCC); Chronic respiratory failure with hypoxia (CMS/HCC) (HCC); Cigarette nicotine dependence in remission Social History Tobacco Use Types [...] file Legal 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 Gender Identity Not on file Sexual Orientation Not on file documented as of this encounter Last Filed Vital Signs Vital Sign Reading Time Taken Comments Blood Pressure 120/60 09/14/2022 11:10 AM CDT Pulse 71 09/14/2022 11:10 AM CDT Temperature 36.4 ??C (97.5 ??F) 09/14/2022 11:10 AM C DT Respiratory Rate 18 09/14/2022 11:10 AM CDT Oxygen Saturation 91% 09/14/2022 11:10 AM CDT Inhaled Oxygen Concentration - - Weight 73.9 kg (163 lb) 09/14/2022 11:10 AM CDT Height 165.1 cm (5' 5 ) 09/14/2022 11:10 AM CDT Body Mass Index 27.12 09/14/2022 11:10 AM CDT documented in this encounter Ordered Prescriptions Prescription Sig Dispense Quantity Refills Last Filled Start Date End Date Trelegy Ellipta 200-62.5-25 mcg inhaler Inhale 1 puff daily 90 each 3 09/14/2022 11/13/2023 documented in this encounter Progress Notes * Efren Villanueva MD - 09/14/2022 11:15 AM CDT Images from the original note were not included. PULMONARY CLINIC NOTE Visit Date: 09/14/2022 Chief Complaint: Presents today for Abnormal CT scan HPI: Janeth Parker is a 72 y.o. female w/ PMH of emphysema, chronic respiratory failure with hypoxia who presents on 09/14/2022 for evaluation of abnormal CT scan. The patient reports she was hospitalized in May at [facility] for a week for Covid-19 pneumonia. Hospitalization was complicated by hypercapnic respiratory failure requiring bipap in the ICU. Shewas subsequently discharged with a new oxygen requirement. Recently she had started on trelegy and was previously on Breo Interval History: She has recovered nearly completely from her prior pneumonia. She is using her oxygen almost continuously. Using trelegy for the last couple of months. She does not report the use of a rescue inhaler. She denies any fevers, chills or weight loss Exposure History: No relevant exposures. Past Medical History: Past Medical History: Diagnosis Date Cancer (CMS/HCC) (HCC) Skin BCC COPD (chronic obstructive pulmonary disease) (CMS/HCC) (HCC) Deviated nasal septum Occasional tremors Hands and Head, going to see Neurologist Peptic ulceration Tachycardia Family History: Family History Problem Relation Age of Onset Cancer Neg Hx Social History: Former smoker. Quit in April 2022. Smoked 50 years 1 ppd Review of Systems: Pertinent positives notes in HPI. Otherwise a 10 pt review of systems is negative. OBJECTIVE: Physical Exam: Vitals: 09/14/22 1110 BP: 120/60 BP Location: Left arm Patient Position: Sitting Pulse: 71 Resp: 18 Temp: 36.4 ??C (97.5 ??F) TempSrc: Temporal SpO2: 91% Weight: 73.9 kg (163 lb) Height: 165.1 cm (5' 5 ) General: [...] dry Data Review: CT chest without contrast 08/09/2022: Personally reviewed [...] evidence ofpulmonary hypertension Pulmonary Functions Testing Results: None to review ASSESSMENT AND PLAN 1. 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 Centrilobular emphysema (CMS/HCC) (HCC) - continue Trelegy - PFTs with repeat walk study - Pulmonary Function Test -[facility]; Complete PFT with 6 Minute Walk; Future 3. Chronic respiratory failure with hypoxia (CMS/HCC) (HCC) - continue supplemental oxygen as prescribed - repeat walk study as above, she may have improved since her COVID-19 4. Cigarette nicotine dependence in remission - once surveillance begin annual screening with low-dose CT scan Efren Villanueva MD There may be syntax/grammatical errors in this note due to the use of voice recognition software. documented in this encounter Plan of Treatment Not on file documented as of this encounter Results * Pulmonary Function Test -[facility]; Complete PFT with 6 Minute Walk (10/03/2022 8:59 AM MOTORCYCLE MAKER) Anatomical Region Laterality Modality PFT Impressions 10/12/2022 4:29 PM MOTORCYCLE MAKER 1. Moderate obstruction with severe air trapping 2. Mildly decreased uncorrected DLCO 3. Patient required 2 L oxygen with ambulation during walk test Electronically signed by Max Thomas MD Narrative 10/12/2022 4:29 PM MOTORCYCLE MAKER INTERPRETATION Please see technologist's comments mentioned in attached results report. SPIROMETRY: ? FEV1/FVC ratio is decreased ? ? FEV1 is decreased ? ? Forced vital capacity is decreased There is no significant response to bronchodilator administration. ??This does not preclude the use of bronchodilator therapy if clinically indicated. FLOW VOLUME LOOPS: Scooping of expiratory limb LUNG VOLUMES via plethysmography: ? ? Total lung capacity is normal ? ? Residual volume is increased DIFFUSION CAPACITY: DLCO unadjusted for Hb and COHb is mildly decreased Efren Villanueva MD PFT ORDERABLES Final Result * CT chest without contrast (10/03/2022 7:11 AM MOTORCYCLE MAKER) Anatomical Region Laterality Modality Body N/A Computed Tomogra phy 10/03/2022 7:13 PM MOTORCYCLE MAKER Narrative 10/03/2022 7:28 PM MOTORCYCLE MAKER EXAM DESCRIPTION: ?? CT CHEST WO CONTRAST REASON FOR STUDY: ?? PLEXOPATHY, LUMBSAC, POST RAD TX, consolidation ?? Follow up to [facility] in May ??Prev scan at ,[facility] ??No previous surgeries ??No current symptoms ??Prior scans are in sectra ?? TECHNIQUE: CT scan of the chest performed without intravenous contrast using helical scanning technique. Reconstructed coronal and sagittal MPR images reviewed. ??All images stored on PACS. ??Automated exposure control was used as a dose optimization technique for this examination. COMPARISON: ?? 08/09/2022 FINDINGS: The sensitivity for detection of solid visceral lesions is diminished without the use of intravenous contrast. LUNGS: ?? A few ground-glass nodules in the left upper and right upper lobes range in size up to about 9 mm in the right upper lobe. ??These are similar to the previous study. ??The large infiltrate in the right lower lobe on the previous CT has greatly improved. ??There is a small amount of residual ground-glass and coarse linear opacity. PLEURA: ?? No effusion. No pneumothorax. MEDIASTINUM/WARREN: ?? No identified masses or abnormal nodes. ?? Moderate coronary artery calcification is seen. HEART: ?? Heart size is normal with no pericardial effusion. VASCULATURE: ?? No thoracic aortic aneurysm. AXILLA: ?? There is bilateral axillary lymphadenopathy with nodes ranging in size up to about 1.6 cm in the short axis on the left. ??The nodes are significantly larger than on the previous CT. ??They range in size up to only about 8 mm in the short axis on the previous exam. CHEST WALL: ?? No masses. ??No subcutaneous air. HARDWARE/LINES/TUBES: ?? None. UPPER ABDOMEN: ?? No definite significant abnormality. MUSCULOSKELETAL: ?? No significant abnormality. OTHER: ?? No other significant abnormality. IMPRESSION: 1. ??Marked improvement in the right lower lobe infiltrate since 08/09/2022. ?? resolving pneumonia is the obvious consideration. 2. ??Several ground-glass nodules in the left upper and right upper lobes ranging in size up to about 9 mm. ??These are similar to the previous CT and may well be inflammatory. ??Continued follow-up is recommended, with a repeat CT in 3-4 months. 3. ??Bilateral axillary lymphadenopathy, more so on the left. ??The nodes are significantly larger than on 08/09/2022. ??Considerations include lymphoma and lymph node metastasis. ??Ultrasound with option for percutaneous biopsy might be helpful. Fleischner society guidelines for incidental lung nodule follow up do not apply for this patient's pulmonary nodules. Generally, Fleischner Society guidelines do not apply to patients that are under 35, immunosuppressed, patients enrolled in lung cancer screening, or patients with known primary cancer. Suzette Society Guidelines do not apply to Intra-fissural, perifissural, and subpleural pulmonary nodules. http://pubs.rsna.org/doi/pdf/10.1148/radiol.8632058923 THIS IS AN ELECTRONICALLY VERIFIED FINAL REPORT 10/03/2022 7:28 PM - Electronically signed by ??Eamon ARAUJO: VAN D: ??10/03/2022 7:28 PM T: ??10/03/2022 7:28 PM Report ID: [id number] Reading Location: ??[id number] Procedure Note Renny Bell MD - 10/03/2022 EXAM DESCRIPTION: CT CHEST WO CONTRAST REASON FOR STUDY: PLEXOPATHY, LUMBSAC, POST RAD TX, consolidation Follow up to [facility] in May Prev scan at [facility] No previous surgeries No current symptoms Prior scans are in sectra TECHNIQUE: CT scan of the chest performed without intravenous contrastusing helical scanning technique. Reconstructed coronal and sagittal MPR images reviewed. All images stored on PACS. Automated exposure control was usedas a dose optimization technique for this examination. COMPARISON: 08/09/2022 FINDINGS: The sensitivity for detection of solid visceral lesions is diminishedwithout the use of intravenous contrast. LUNGS: A few ground-glass nodules in the left upper and right upperlobes range in size up to about 9 mm in the right upper lobe. These are similarto the previous study. The large infiltrate in the right lower lobe on the previous CT has greatly improved. There is a small amount of residual ground-glass and coarse linear opacity. PLEURA: No effusion. No pneumothorax. MEDIASTINUM/WARREN: No identified masses or abnormal nodes. Moderate coronary artery calcification is seen. HEART: Heart size is normal with no pericardial effusion. VASCULATURE: No thoracic aortic aneurysm. AXILLA: There is bilateral axillary lymphadenopathy with nodes rangingin size up to about 1.6 cm in the short axis on the left. The nodes are significantly larger than on the previous CT. They range in size up toonly about 8 mm in the short axis on the previous exam. CHEST WALL: No masses. No subcutaneous air. HARDWARE/LINES/TUBES: None. UPPER ABDOMEN: No definite significant abnormality. MUSCULOSKELETAL: No significant abnormality. OTHER: No other significant abnormality. IMPRESSION: 1. Marked improvement in the right lower lobe infiltrate since08/09/2022. resolving pneumonia is the obvious consideration. 2. Several ground-glass nodules in the left upper and right upper lobes ranging in size up to about 9 mm. These are similar to the previous CTand may well be inflammatory. Continued follow-up is recommended, with arepeat CT in 3-4 months. 3. Bilateral axillary lymphadenopathy, more so on the left. The nodesare significantly larger than on 08/09/2022. Considerations include lymphomaand lymph node metastasis. Ultrasound with option for percutaneous biopsymight be helpful. Fleischner society guidelines for incidental lung nodule follow up do not apply for this patient's pulmonary nodules. Generally, Fleischner Society guidelines do not apply to patients that are under 35, immunosuppressed, patients enrolled in lung cancer screening, or patients with known primary cancer. Suzette Society Guidelines do not apply to Intra-fissural, perifissural, and subpleural pulmonary nodules. http://pubs.rsna.org/doi/pdf/10.1148/radiol.8774293870 THIS IS AN ELECTRONICALLY VERIFIED FINAL REPORT 10/03/2022 7:28 PM - Electronically signed by Eamon Bell M.D. VAN: VAN Report ID: [id number] Reading Location: [place] [address] Efren Villanueva MD IMG CT PROCEDURES Final Result documented in this encounter Visit Diagnoses Diagnosis Lung consolidation (HCC)- Primary Centrilobular emphysema (HCC) Chronic respiratory failure with hypoxia (CMS/HCC) (HCC) Cigarette nicotine dependence in remission Lung consolidation (HCC) Centrilobular emphysema (HCC) documented in this encounter Discontinued Medications Medication Sig Discontinue Reason Start Date End Da te fluticasone-vilanterol (BREO ELLIPTA) 100-25 mcg/dose diskus inhaler Inhale 1 puff daily. Rinse mouth with water after use to reduce aftertaste and incidence of candidiasis. Do not swallow. Formulary change 09/14/2022 Trelegy Ellipta 200-62.5-25 mcg inhaler INHALE 1 PUFF ONCE DAILY RINSE MOUTH WELL AFTER EVERY USE Reorder 08/12/2022 09/14/2022 documented as of this encounter Historical Medications * This list may reflect changes made after this encounter. Trelegy Ellipta 200-62.5-25 mcg inhaler INHALE 1 PUFF ONCE DAILY RINSE MOUTH WELL AFTER EVERY USE 08/12/2022 09/14/2022 added in this encounter Care Teams Cloth Printer Helper Relationship Specialty Start Date End Date Watson Perry MD PCP - General Family Medicine 01/24/18 documented as of this encounter
--- OUTSIDE RECORDS SUMMARY | 2024-11-23 15:12 | XMS_ITS | Encounter Summary ---
Author Organization [facility] Address [address] [facility] [address] [place] [address] Care Team Providers Care Tile Finisher Name Role Phone Watson Perry MD Primary Care Provider [phone] Reason for Visit * Reason Comments 3 mo f/u Cough Encounter Details Date Type Department Care Team (Late st Contact Info) Description 12/18/2022 9:00 AM BALLOON SANDER Office Visit [facility] Pulmonary at [address] [place] [address] Efren Villanueva MD [address] [place] [address] [address] [place] [address] Centrilobular emphysema (CMS/HCC) (HCC) (Primary Dx); Chronic respiratory failure with hypoxia (CMS/HCC) (HCC); Nicotine dependence, cigarettes, in remission; Axillary lymphadenopathy Social History Tobacco Use Types Packs/Day [...] often do you attend chur ch or sikh services? Never 03/30/2023 Do you belong to [...] on file Legal Sex Female 1:09 PM BALLOON SANDER Gender Identity Not on file Sexual Orientation Not on file documented as of this encounter Last Filed Vital Signs Vital Sign Reading Time Taken Comments Blood Pressure 120/60 12/18/2022 9:02 AM BALLOON SANDER Pulse 75 12/18/2022 9:02 AM BALLOON SANDER Temperature 36.1 ??C (97 ??F) 12/18/2022 9:02 AM BALLOON SANDER Respiratory Rate 16 12/18/2022 9:02 AM BALLOON SANDER Oxygen Saturation 91% 12/18/2022 9:02 AM BALLOON SANDER Inhaled Oxygen Concentration - - Weight 78.9 kg (173 lb 14.4 oz) 12/18/2022 9:02 AM BALLOON SANDER Height 167.6 cm (5' 6 ) 12/18/2022 9:02 AM BALLOON SANDER Body Mass Index 28.07 12/18/2022 9:02 AM BALLOON SANDER documented in this encounter Progress Notes * Efren Villanueva MD - 12/18/2022 9:00 AM CST Images from the original note were not included. PULMONARY CLINIC NOTE Visit Date: 12/18/2022 Chief Complaint: Presents today for Abnormal CT scan HPI: Janeth Parker is a 72 y.o. female w/ PMH of emphysema, chronic respiratory failure with hypoxia who presents on 12/18/2022 for evaluation of [address] CT scan. The patient was first seen in August of 2022, at that time she reported being hospitalized in May2022 at [facility] for a week for Covid-19 pneumonia. Hospitalization was complicated by hypercapnic respiratory failure requiring bipap in the ICU. She was subsequently discharged with a new oxygen requirement. After discharge, she had started on trelegy and had previously on Breo Interval History: She is using trelegy once daily. Not using her resuce therapies but thinks she probably should . She is not had any respiratory illnesses or exacerbations in the interval. She continues to report that dyspnea does limit her to moderate exertion but otherwise she feels she is quite functional. She is using her oxygen as needed Exposure History: No relevant exposures. Past Medical [...] systems is negative. OBJECTIVE: Physical Exam: Vitals: 12/18/22 0902 BP: 120/60 BP Location: Left arm Patient Position: Sitting Pulse: 75 Resp: 16 Temp: 36.1 ??C (97 ??F) TempSrc: Temporal SpO2: 91% Weight: 78.9 kg (173 lb 14.4 oz) Height: 167.6 cm (5' 6 ) General: appears comfortable in no apparent [...] needed - no exacerbations in the interval 2. Chronic respiratory failure with hypoxia (CMS/HCC) (HCC) - continue supplemental oxygen as prescribed - will order a portable oxygen concentrator or greater mobility 3. Cigarette nicotine dependence in remission - will start annual screening with low-dose CT scan of the chest - scan will be in November of 2023 - CT Lung Cancer Screening; Future 4. Axillary lymphadenopathy - relative decrease in size of axillary adenopathy - I do not believe further evaluation is warranted at this time Efren Villanueva MD There may be syntax/grammatical errors in this note due to the use of voice recognition software. OON SANDER * Selam Chu LPN - 12/18/2022 9:00 AM CST Letter sent * Selam Chu LPN - 12/18/2022 9:00 AM CST Letter sent via NXTM documented in this encounter Plan of Treatment Not on file documented as of this encounter Visit Diagnoses Diagnosis Centrilobular emphysema (HCC)- Primary Chronic respiratory failure with hypoxia (CMS/HCC) (HCC) Nicotine dependence, cigarettes, in remission Axillary lymphadenopathy Enlargement of lymph nodes documented in this encounter Historical Medications * This list may reflect changes made after this encounter. primidone (MYSOLINE) 250 mg tablet Take 1 tablet (250 mg total) by mouth daily 12/15/2022 rosuvastatin (CRESTOR) 10 mg tablet Take 1 tablet (10 mg total) by mouth nightly at bedtime. 11/16/2022 added in this encounter Additional Health Concerns Infection Onset Date Last Indicated Resolved Time COVID: Suspected 03/30/2023 03/30/2023 03/30/2023 8:48 PM CDT documented as of this encounter Care Teams Tile Finisher Relationship Specialty Start Date End Date Watson Perry MD PCP - General Family Medicine 01/24/18 documented as of this encounter
--- OUTSIDE RECORDS SUMMARY | 2024-11-23 15:12 | XMS_ITS | Encounter Summary ---
Author Organization [facility] Address [address] [facility] [address] [place] [address] Care Team Providers Care Perpetual Inventory Clerk Name Role Phone Watson Perry MD Primary Care Provider [phone] Reason for Visit * Reason Onset Date Comments Discuss Test Results 10/10/2022 Encounter Details Date Type Department Care Team (Late st Contact Info) Description 10/10/2022 Telephone [facility] Pulmonary at [address] [place] [address] Nkechi Whitehead LPN Discuss Test Results Social History Tobacco Use Types Packs/Day Years Used Date Smoking Tobacco: Former Cigarettes 1 50 0 05/18/1972 - 05/18/2022 Smokeless Tobacco: Never Alcohol Use Standard Drinks/Week Comments No 0 (1 standard drink = 0.6 oz pur e alcohol) Comments Unknown Sex and Gender Information Value Date Recorded Sex Assigned at Not on file Legal Sex Female 1:09 PM CERTIFIED NURSES AIDE Gender Identity Not on file Sexual Orientation Not on file documented as of this encounter Miscellaneous Notes * Telephone Encounter - Selam Chu LPN - 10/17/2022 11:34 AM CERTIFIED NURSES AIDE Called and let the patient know that her pulmonary function testing demonstrated moderate to severeCOPD. She should continue using 2 L of supplemental oxygen with activity. No other changes to her treatment at this time Pt verbalizes good understanding. IFIED NURSES AIDE * Telephone Encounter - Nkechi Whitehead LPN - 10/10/2022 2:58 PM CERTIFIED NURSES AIDE Called pt and informed her that ct showed improvement and lung nodules were stable. There were someenlarged lymph phone and they would do a repeat CT in 3 months. Pt verbalized understanding. IFIED NURSES AIDE * Telephone Encounter - Nkechi Whitehead LPN - 10/10/2022 2:57 PM CERTIFIED NURSES AIDE ----- Message from Efren Villanueva MD sent at 10/10/2022 2:26 PM CERTIFIED NURSES AIDE ----- Please let the patient know that her CT scan has improved. The other pulmonary nodules have been stable. There were some enlarged lymph nodes under your left arm. I believe we can continue to monitorthese. The radiologist recommends further follow-up with a repeat scan in 3 months. Thanks IFIED NURSES AIDE documented in this encounter Plan of Treatment Not on file documented as of this encounter Visit Diagnoses Not on filedocumented in this encounter Care Teams Perpetual Inventory Clerk Relationship Specialty Start Date End Date Watson Perry MD PCP - General Family Medicine 01/24/18 documented as of this encounter
--- OUTSIDE RECORDS SUMMARY | 2024-11-23 15:12 | XMS_ITS | Encounter Summary ---
Author Organization Formerly [facility] Address [address] [place] [address] Care Team Providers Care Medical Social Consultant Name Role Phone Watson Perry MD Primary Care Provider [phone] Reason for Referral * MRI/CAT/PET Scan (Routine) - Closed Specialty Diagnoses / Procedures Referred By Contac t Referred To Contact Radiology Diagnoses Lung consolidation (HCC) Procedures CT chest without contrast Efren Villanueva MD Phone: tel: fax: [address] [phone] Referral ID Status Reason Start Date Expiration Date Visits Re quested Visits Authorized [id number] Closed 09/15/2022 03/14/2023 1 1 E RN BSN Reason for Visit * MRI/CAT/PET Scan (Routine) - Closed Specialty Diagnoses / Procedures Referred By Contac t Referred To Contact Radiology Diagnoses Lung consolidation (HCC) Procedures CT chest without contrast Efren Villanueva MD Phone: tel: fax: [address] [address] Referral ID Status Reason Start Date Expiration Date Visits Re quested Visits Authorized [id number] Closed 09/15/2022 03/14/2023 1 1 Encounter Details Date Type Department Care Team (Latest Contact Info) Description 10/03/2022 6:57 AM NURSE RN BSN - 10/03/2022 11:59 PM NURSE RN BSN Hospital Encounter [facility] [address] [place] [id number] Lung consolidation (HCC) Discharge Disposition: Discharge to home or self [...] on file Legal Sex Female 1:09 PM NURSE RN BSN Gender Identity Not on file Sexual Orientation [...] by mouth 2 (two) times a day calcium citrate-vitamin D3 250 mg calcium- 200 [...] CONTRAST Schedule Routine, Read Routine (OP Routine) 10/03/2022 7:11 AM NURSE RN BSN Lung consolidation (HCC) documented in this encounter Results * CT chest without contrast (10/03/2022 7:11 AM NURSE RN BSN) Anatomical Region Laterality Modality Body N/A Computed Tomogra phy 10/03/2022 7:13 PM NURSE RN BSN Narrative 10/03/2022 7:28 PM NURSE RN BSN EXAM DESCRIPTION: ?? CT CHEST WO CONTRAST REASON FOR STUDY: ?? PLEXOPATHY, LUMBSAC, POST RAD TX, consolidation ?? Follow up to [facility] in May ??Prev scan at [facility] ??No [...] to Intra-fissural, perifissural, and subpleural pulmonary nodules. http://pubs.rsna.org/doi/pdf/10.1148/radiol.4016241602 THIS IS AN ELECTRONICALLY VERIFIED FINAL REPORT 10/03/2022 7:28 PM - Electronically signed by ??Eamon Bell M.D. VAN: VAN D: ??10/03/2022 7:28 PM T: ??10/03/2022 7:28 PM Report ID: [id number] Reading Location: ??[id number] Procedure Note Renny Bell MD - 10/03/2022 EXAM DESCRIPTION: CT CHEST WO CONTRAST REASON FOR STUDY: PLEXOPATHY, LUMBSAC, POST RAD TX, consolidation Follow up to [facility] in May Prev scan at [facility] No [...] to Intra-fissural, perifissural, and subpleural pulmonary nodules. http://pubs.rsna.org/doi/pdf/10.1148/radiol.9363700800 THIS IS AN ELECTRONICALLY VERIFIED FINAL REPORT 10/03/2022 7:28 PM - Electronically signed by Eamon Bell M.D. VAN: VAN Report ID: [id number] Reading Location: [place] [address] Efren Villanueva MD IMG CT PROCEDURES Final Result documented in this encounter Visit Diagnoses Diagnosis Lung consolidation (HCC) documented in this encounter Care Teams Medical Social Consultant Relationship Specialty Start Date End Date Watson Perry MD PCP - General Family Medicine 01/24/18 documented as of this encounter
--- OUTSIDE RECORDS SUMMARY | 2024-11-23 15:12 | XMS_ITS | Encounter Summary ---
Author Organization [facility] Address [address] [place] [address] Care Team Providers Care Parachute Officer Name Role Phone Watson Perry MD Primary Care Provider [phone] Reason for Referral * MRI/CAT/PET Scan (Routine) - Closed Specialty Diagnoses / Procedures Referred By Contac t Referred To Contact Radiology Diagnoses Lung nodule Procedures CT chest without contrast Efren Villanueva MD Phone: tel: fax: [facility] [address] [place] [address] Referral ID Status Reason Start Date Expiration Date Visits Re quested Visits Authorized [id number] Closed 11/16/2022 05/15/2023 1 1 ESSOR OF PSYCHIATRY Encounter Details Date Type Department Care Team (Late st Contact Info) Description 10/10/2022 Orders Only [facility] Pulmonary at [address] [place] [address] Efren Villanueva MD [address] [place] [address] [address] [place] [address] Lung nodule (Primary Dx) Social History Tobacco Use Types Packs/Day Years Used Date Smoking Tobacco: Former Cigarettes 1 50 0 05/18/1972 - 05/18/2022 Smokeless Tobacco: Never Alcohol Use Standard Drinks/Week Comments No 0 (1 standard drink = 0.6 oz pur e alcohol) Comments Unknown Sex and Gender Information Value Date Recorded Sex Assigned at Not on file Legal Sex Female 1:09 PM PROFESSOR OF PSYCHIATRY Gender Identity Not on file Sexual Orientation Not on file documented as of this encounter Plan of Treatment Not on file documented as of this encounter Results * CT chest without contrast (12/11/2022 8:49 AM PROFESSOR OF PSYCHIATRY) Anatomical Region Laterality Modality Body N/A Computed Tomogra phy 12/12/2022 9:41 AM PROFESSOR OF PSYCHIATRY Narrative 12/12/2022 9:49 AM PROFESSOR OF PSYCHIATRY EXAM DESCRIPTION: ?? CT CHEST WO CONTRAST [...] Recent guidelines by the Fleischner Society (Radiology 395454,2017) divides patient into low vs. high risk [...] immunosuppression, or patients with known primary cancer. http://pubs.rsna.org/doi/pdf/10.1148/radiol.3401963386 THIS IS AN ELECTRONICALLY VERIFIED FINAL REPORT 12/12/2022 9:49 AM - Electronically signed by ??Jayesh Eaton M.D. JA: ANDREW Bradley: ??12/12/2022 9:49 AM T: ??12/12/2022 9:49 AM Report ID: [id number] Reading Location: ??[id number] Procedure Note Jayesh Eaton MD - 12/12/2022 [...] Recent guidelines by the Fleischner Society (Radiology 846017,2017)divides patient into low vs. high risk (for [...] immunosuppression, or patients with known primary cancer. http://pubs.rsna.org/doi/pdf/10.1148/radiol.7566562604 THIS IS AN ELECTRONICALLY VERIFIED FINAL REPORT 12/12/2022 9:49 AM - Electronically signed by Jayesh Eaton M.D. JA: ANDREW Report ID: [id number] Reading Location: [id number] Efren Villanueva MD IM CT PROCEDURES Final Result documented in this encounter Visit Diagnoses Diagnosis Lung nodule- Primary Other diseases of lung, not elsewhere classified Lung nodule Other diseases of lung, not elsewhere classified documented in this encounter Care Teams Parachute Officer Relationship Specialty Start Date End Date Watson Perry MD PCP - General Family Medicine 01/24/18 documented as of this encounter
--- OUTSIDE RECORDS SUMMARY | 2024-11-23 15:12 | XMS_ITS | Encounter Summary ---
Author Organization Formerly [facility] Address [address] [place] [address] Care Team Providers Care Horse Rider Name Role Phone Watson Perry MD Primary Care Provider [phone] Encounter Details Date Type Department Care Team (Late st Contact Info) Description 12/08/2022 Telephone [facility] [address] [place] [id number] Fartun Prado RT Social History Tobacco Use Types Packs/Day Years Used Date Smoking Tobacco: Former Cigarettes 1 50 0 05/18/1972 - 05/18/2022 Smokeless Tobacco: Never Alcohol Use Standard Drinks/Week Comments No 0 (1 standard drink = 0.6 oz pur e alcohol) Comments Unknown Sex and Gender Information Value Date Recorded Sex Assigned at Not on file Legal Sex Female 1:09 PM PROGRAM MANAGER ENVIRONMENTAL PLANNING Gender Identity Not on file Sexual Orientation Not on file documented as of this encounter Miscellaneous Notes * Telephone Encounter - Fartun Prado RT - 12/08/2022 11:06 AM CST Confirmed appt RAM MANAGER ENVIRONMENTAL PLANNING documented in this encounter Plan of Treatment Not on file documented as of this encounter Visit Diagnoses Not on filedocumented in this encounter Care Teams Horse Rider Relationship Specialty Start Date End Date Watson Perry MD PCP - General Family Medicine 01/24/18 documented as of this encounter
--- OUTSIDE RECORDS SUMMARY | 2024-11-23 15:12 | XMS_ITS | Encounter Summary ---
Author Organization [facility] Address [address] [place] [address] Care Team Providers Care Supervisor Production Department Name Role Phone Watson Perry MD Primary Care Provider [phone] Reason for Referral * Procedure (Routine) - Closed Specialty Diagnoses / Procedures Referred By Contac t Referred To Contact Diagnoses Centrilobular emphysema (HCC) Procedures Pulmonary Function Test -[facility]; Complete PFT with 6 Minute Walk Efren Villanueva MD Phone: tel: fax: Referral ID Status Reason Start Date Expiration Date Visits Re quested Visits Authorized [id number] Closed 09/14/2022 10/14/2023 1 1 DELIVERER Reason for Visit * Procedure (Routine) - Closed Specialty Diagnoses / Procedures Referred By Contac t Referred To Contact Diagnoses Centrilobular emphysema (HCC) Procedures Pulmonary Function Test -[facility]; Complete PFT with 6 Minute Walk Efren Villanueva MD Phone: tel: fax: Referral ID Status Reason Start Date Expiration Date Visits Re quested Visits Authorized [id number] Closed 09/14/2022 10/14/2023 1 1 Encounter Details Date Type Department Care Team (Latest Contact Info) Description 10/03/2022 6:57 AM OIL DELIVERER - 10/03/2022 11:59 PM OIL DELIVERER Hospital Encounter [facility] Respiratory [address] [place] [phone] Centrilobular emphysema (CMS/HCC) (HCC) Discharge Disposition: Discharge to home or [...] on file Legal Sex Female 1:09 PM OIL DELIVERER Gender Identity Not on file Sexual Orientation [...] or self care documented in this encounter Progress Notes * Tonie Marin RRT - 10/03/2022 8:43 AM CST 10/03/22 0800 Prior to Walk (measure after 5 minutes) Resting SPO2 95 % (room air at rest) Resting HR 86 bpm BP Prior to Walk 96/58 Modified Kate Scale 0- Nothing at All 6MWT O2 Flow Rate 2l 6MWT Oxygen Device nasal cannula Pt. Symptoms None Assistive Devices None During Walk Lowest SPO2 85 % (room air while ambulating) Number of Rests During Walk 0 Duration of Rests During Walk 0 6 Minutes SPO2 91 % (2L while ambulating) HR 79 bpm Distance Walked (feet) 902 feet Distance Walked (meters) 275 Modified Kate Scale 2- Silght Reason for Cessation end of test BP Post Walk 110/68 Pt. Symptoms Shortness of Breath After 5 Minutes of Rest HR 81 bpm BP 107/62 SPO2 92 % (room air at rest) Pt. Symptoms None Patient had great cooperation and effort. Patient dropped to 85% pretty quickly, but recovered wellwith 2L of oxygen. DELIVERER documented in this encounter Plan of Treatment Not on file documented as of this encounter Procedures Procedure Name Priority Date/Time Associated Diagnosis Comments PULMONARY FUNCTION TEST (PFT) Routine 10/03/2022 8:59 AM OIL DELIVERER Centrilobular emphysema (CMS/HCC) (HCC) documented in this encounter Results * Pulmonary Function Test -[facility]; Complete PFT with 6 Minute Walk (10/03/2022 8:59 AM OIL DELIVERER) Anatomical Region Laterality Modality PFT Impressions 10/12/2022 4:29 PM OIL DELIVERER 1. Moderate obstruction with severe air trapping 2. Mildly decreased uncorrected DLCO 3. Patient required 2 L oxygen with ambulation during walk test Electronically signed by Max Thomas MD Narrative 10/12/2022 4:29 PM OIL DELIVERER INTERPRETATION Please see technologist's comments mentioned in [...] Efren Villanueva MD PFT ORDERABLES Final Result documented in this encounter Visit Diagnoses Diagnosis Centrilobular emphysema (HCC) documented in this encounter Care Teams Supervisor Production Department Relationship Specialty Start Date End Date Watson Perry MD PCP - General Family Medicine 01/24/18 documented as of this encounter
--- OUTSIDE RECORDS SUMMARY | 2024-11-23 15:12 | XMS_ITS | Encounter Summary ---
Author Organization [facility] Address [address] [place] [address] Care Team Providers Care Planting Machine Crewman Name Role Phone Watson Perry MD Primary Care Provider Encounter Details Date Type Department Care Team (Late st Contact Info) Description 01/01/2023 Orders Only [facility] Pulmonary at [address] [place] [address] Selam Chu LPN Chronic respiratory [...] on file Legal Sex Female 1:09 PM X RAY TECHNOLOGIST Gender Identity Not on file Sexual Orientation Not on file documented as of this encounter Plan of Treatment Not on file documented as of this encounter Visit Diagnoses Diagnosis Chronic respiratory failure with hypoxia (CMS/HCC) (HCC)- Primary documented in this encounter Care Teams Planting Machine Crewman Relationship Specialty Start Date End Date Watson Perry MD PCP - General Family Medicine 01/24/18 documented as of this encounter
--- OUTSIDE RECORDS SUMMARY | 2024-11-23 15:12 | XMS_ITS | Encounter Summary ---
Author Organization [facility] Address [address] [place] [address] Care Team Providers Care School Community Relations Coordinator Name Role Phone Watson Perry MD Primary Care Provider [phone] Reason for Visit * Reason Comments Abscess on Palate * Consultation (Routine) - Closed Specialty Diagnoses / Procedures Referred By Contjesse t Referred To Contact Otolaryngology Diagnoses Other specified diseases of jaws Cutaneous abscess of other sites infection at top of mouth, painful, painful to eat or talk, drinks have to be learning operations specialist order to drink, blisters, Procedures ESTABLISHED PATIENT Watson Perry MD Phone: tel: fax: Lico Wayne DO [address] [place] [address] Phone: tel: fax: Referral ID Status Reason Start Date Expiration Date Visits Re quested Visits Authorized [id number] Closed 01/24/2018 01/24/2019 12 12 Encounter Details Date Type Department Care Team (Late st Contact Info) Description 06/07/2018 9:10 AM CDT Office Visit [facility] [address] [place] [id number] Lico Wayne DO [address] [place] [address] Oral lesion (Primary Dx) Social History Tobacco Use Types Packs/Day Years Used Date Smoking Tobacco: Every Day Cigarettes Smokeless Tobacco: Never Alcohol Use Standard Drinks/Week Comments No 0 (1 standard drink = 0.6 oz pur e alcohol) Comments Unknown Sex and Gender Information Value Date Recorded Sex Assigned at Not on file 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 [facility] DATE OF VISIT: 06/21/2018 CHIEF COMPLAINT Chief Complaint Patient presents with ??? Abscess on Palate HPI Janeth Parker is a 68 y.o. female with smoker with a medical history of COPD, tachycardia, peptic ulcer who presents to my office today with complaints of swelling and pain on the roof of her mouth. Patient states that on April 17 she was seen at her dentist who attempted to perform a root canal. She was given localized nerve block. Patient states that she subsequently started to developed pain and swelling along her hard palate. Patient had noted some drainage around the area at 1 point were pus was coming out of her mouth. Patient was treated with antibiotic. Patient thinks that it has gotten better. Her pain and drainage have since resolved. She does not perceive any swelling at this time. Patient denies any other ear nose and throat complaints today. MEDICAL HISTORY Past Medical History: Diagnosis Date ??? Cancer (CMS/HCC) Skin BCC ??? COPD (chronic obstructive pulmonary disease) (CMS/HCC) ??? Deviated nasal septum ??? Occasional tremors Hands and Head, going to see Neurologist ??? Peptic ulceration ??? Tachycardia Social History Substance Use Topics ??? Smoking status: Current Every Day Smoker Packs/day: 0.25 ??? Smokeless tobacco: Never Used ??? Alcohol use No Family History Problem Relation Age of Onset ??? Cancer Neg Hx MEDICATIONS HOME MEDICATIONS : calcium citrate-vitamin D3 250 mg calcium- 200 unit tablet cephalexin (KEFLEX) 500 mg capsule citalopram (CeleXA) 20 mg tablet clonazePAM (KlonoPIN) 1 mg tablet diphenhydrAMINE (BENADRYL) [address] (NexIUM) 20 mg capsule fluticasone-vilanterol (BREO ELLIPTA) 100-25 mcg/dose diskus inhaler naproxen sodium 220 mg capsule pramipexole (MIRAPEX) 1.5 mg tablet propranolol LA (INDERAL LA) 60 mg 24 hr capsule ALLERGIES Allergies Allergen Reactions ??? Ibuprofen Rash REVIEW OF SYSTEMS Review of Systems Constitutional: [...] problems, confusion, sleep disturbance and suicidal ideas. PHYSICAL EXAM Vitals: 06/07/18 0923 Resp: 18 Physical Exam Constitutional: She is oriented to person, place, and time. Vital signs are normal. She appears well-developed and well-nourished. She does not appear ill. HENT: Head: Normocephalic and atraumatic. Hair is normal. Right Ear: Hearing, tympanic membrane, external ear and ear canal normal. No middle ear effusion. No decreased hearing is noted. Left Ear: Hearing, tympanic membrane, external ear and ear canal normal. No middle ear effusion. Nodecreased hearing is noted. Nose: Nose normal. No mucosal edema or rhinorrhea. Mouth/Throat: Uvula is midline, oropharynx is clear and moist and mucous membranes are normal. No oral lesions. No trismus in the jaw. Normal dentition. No uvula swelling. No posterior oropharyngeal edema or posterior oropharyngeal erythema. Tonsils are 0 on the right. Tonsils are 0 on the left. Notonsillar exudate. Eyes: Conjunctivae, EOM and lids are normal. Neck: Trachea normal, normal range of motion, full passive range of motion without pain and phonation normal. Neck supple. No edema and normal range of motion present. No thyroid mass and no thyromegaly present. Cardiovascular: Normal rate. Pulmonary/Chest: Effort normal. Lymphadenopathy: Head (right side): No submental and no submandibular adenopathy present. Head (left side): No submental and no submandibular adenopathy present. She has no cervical adenopathy. Right cervical: No superficial cervical, no deep cervical and no posterior cervical adenopathy present. Left cervical: No superficial cervical, no deep cervical and no posterior cervical adenopathy present. Neurological: She is alert and oriented to person, place, and time. She has normal strength. No cranial nerve deficit. GCS eye subscore is 4. GCS verbal subscore is 5. GCS motor subscore is 6. Skin: Skin is warm, dry and intact. Psychiatric: She has a normal mood and affect. Her speech is normal and behavior is normal. Thoughtcontent normal. Nursing note and vitals reviewed. LABS AND OTHER DIAGNOSTIC TESTS No results found for: WBC, HGB, HCT, MCV, PLT ASSESSMENT/PLAN Diagnoses and all orders for this visit: Oral lesion (Primary) Assessment & Plan: Today's ear nose and throat examination demonstrated no abnormality within the upper aerodigestive tract. Patient's hard and soft palate were normal. There was no mucosal alterations or asymmetries. There was no signs of any inflammatory or infectious process. Patient was reassured that her problemhas since resolved. Patient follow back up as needed. Lico Wayne DO documented in this encounter Miscellaneous Notes * Assessment & Plan Note - Lico Wayne DO - 06/21/2018 1:00 PM CDT Associated Problem(s): Oral lesion Today's ear nose and throat examination demonstrated no abnormality within the upper aerodigestive tract. Patient's hard and soft palate were normal. There was no mucosal alterations or asymmetries. There was no signs of any inflammatory or infectious process. Patient was reassured that her problemhas since resolved. Patient follow back up as needed. documented in this encounter Plan of Treatment Not on file documented as of this encounter Visit Diagnoses Diagnosis Oral lesion- Primary Other and unspecified diseases of the oral soft tissues documented in this encounter Care Teams School Community Relations Coordinator Relationship Specialty Start Date End Date Watson Perry MD PCP - General Family Medicine 01/24/18 documented as of this encounter
--- OUTSIDE RECORDS SUMMARY | 2024-11-23 15:13 | XMS_ITS | Encounter Summary ---
Author Organization [facility] Address [address] [place] [address] Care Team Providers Care Laboratory Veterinarian Name Role Phone Watson Perry MD Primary Care Provider [phone] Encounter Details Date Type Department Care Team (Late st Contact Info) Description 02/07/2018 12:15 PM CDT - 02/07/2018 11:59 PM CDT Hospital Encounter [facility] [address] [place] [address] Lico Wayne, [facility] [place] [address] Torus mandibularis Discharge Disposition: Discharge to home or self care Social History Tobacco Use Types Packs/Day Years Used Date Smoking Tobacco: Every Day Cigarettes Smokeless Tobacco: Never Alcohol Use Standard Drinks/Week Comments No 0 (1 standard drink = 0.6 oz pur e alcohol) Comments Unknown Sex and Gender Information Value Date Recorded Sex Assigned at Not on file 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 3 fluticasone-ramon nterol (BREO ELLIPTA) 100-25 mcg/dose diskus inhaler Inhale 1 puff daily. Rinse mouth with water after use to reduce aftertaste and incidence of candidiasis. Do not swallow. 2 documented as of this encounter Discharge Disposition Disposition Code Departure Means Destination Discharge to home or self care documented in this encounter Plan of Treatment Not on file documented as of this encounter Procedures Procedure Name Priority Date/Time Associated Diagnosis Comments XR MANDIBLE 4 OR MORE VIEWS Schedule Routine, Read Routine (OP Routine) 02/07/2018 12:53 PM CDT Torus mandibularis documented in this encounter Results * XR Mandible 4 or More Views (02/07/2018 12:53 PM CDT) Anatomical Region Laterality Modality Head and Neck N/A Computed Radiogr aphy Impressions 02/07/2018 2:03 PM CDT NODULAR FOCUS PROJECTING OVER THE MANDIBLE ON THE RIGHT ON SOME OF THE VIEWS. ??THIS REMAINS INDETERMINATE NATURE. ??CT MAY BE CONSIDERATION FOR FURTHER EVALUATION. Electronically signed by: Stephanie Dick 02/07/2018 2:03 PM CDT XR MANDIBLE 4 OR MORE VIEWS HISTORY: Developmental disorders of jaws. TECHNIQUE: AP lateral oblique views are obtained. COMPARISON: None available. FINDINGS: On the Christiana view a nodular density superimposes the angle of the mandible on the right, with a maximal dimension of 18 mm. ??On the PA view of the mandible a circumscribed nodular focus projects over the mandible on the right, at or just above the angle, measuring 12 mm. ??This may extend beyond the upper/superior cortical margin, and therefore may be within the soft tissues. ??Multiple dental restorations are evident. ??The nodular focus is more difficult to appreciate on the lateral oblique views, which May BE due to superimposition of shadows. ??No definite focal bony destruction seen. No fractures evident. Procedure Note Mio Huggins MD - 02/07/2018 XR MANDIBLE 4 OR MORE VIEWS HISTORY: Developmental disorders of jaws. TECHNIQUE: AP lateral oblique views are obtained. COMPARISON: None available. FINDINGS: On the Christiana view a nodular density superimposes the angle of the mandible on the right, with a maximal dimension of 18 mm. On the PA view of the mandible a circumscribed nodular focus projects over the mandible on the right, at or just above the angle, measuring 12 mm. This may extend beyond the upper/superior cortical margin, and therefore may be within the soft tissues. Multiple dental restorations are evident. The nodular focus is more difficult to appreciate on the lateral oblique views, which May BE due to superimposition of shadows. No definite focal bony destruction seen. No fractures evident. IMPRESSION: NODULAR FOCUS PROJECTING OVER THE MANDIBLE ON THE RIGHT ON SOME OF THE VIEWS. THIS REMAINS INDETERMINATE NATURE. CT MAY BE CONSIDERATION FOR FURTHER EVALUATION. Electronically signed by: Mio Huggins M.D us Lico Wayne DO IMG XR PROCEDURES Final Resu lt documented in this encounter Visit Diagnoses Diagnosis Torus mandibularis Exostosis of jaw documented in this encounter Care Teams Laboratory Veterinarian Relationship Specialty Start Date End Date Watson Perry MD PCP - General Family Medicine 01/24/18 documented as of this encounter
--- OUTSIDE RECORDS SUMMARY | 2024-11-23 15:13 | XMS_ITS | Encounter Summary ---
Author Organization [facility] Address [address] [place] [address] Care Team Providers Care Weatherization Director Name Role Phone Watson Perry MD Primary Care Provider [phone] Reason for Visit * Reason Comments growth oral cavity Encounter Details Date Type Department Care Team (Late st Contact Info) Description 02/01/2018 1:00 PM CDT Office Visit [facility] [address] [place] [address] [address] [phone] Lico Wayne, 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 [facility] DATE OF VISIT: 02/03/2018 CHIEF COMPLAINT Chief Complaint Patient presents with ??? growth oral cavity HPI Janeth Parker is a 68 y.o. [...] was referred to ENT for definitive management. MEDICAL HISTORY Past Medical History: Diagnosis Date ??? Deviated nasal septum Social History Substance Use Topics ??? Smoking [...] disturbance and suicidal ideas. PHYSICAL EXAM Vitals: 02/01/18 1318 BP: 130/90 Physical Exam Constitutional: She is oriented to [...] is normal. Nursing note and vitals reviewed. LABS AND OTHER DIAGNOSTIC TESTS No results found for: WBC, HGB, HCT, MCV, PLT ASSESSMENT Diagnoses and all orders for this [...] will be scheduled in a timely fashion. PLAN/RECOMMENDATIONS Patient will be scheduled for surgery after completing imaging studies. Lico Wayne DO * Josselyn Franco MA - 02/01/2018 1:00 PM CDT Message left for pt to call to schedule. * Josselyn Franco MA - 02/01/2018 1:00 PM CDT Pt scheduled for 03/15 documented in this encounter Miscellaneous Notes * Assessment & Plan Note - Lico Wayne DO - 02/03/2018 7:41 PM CDT Associated Problem(s): Torus mandibularis Patient demonstrates multiple mandibular roger along the [...] will be scheduled in a timely fashion. * Addendum Note - Josselyn Franco MA - 02/01/2018 1:00 PM CDTAddended by: JOSSELYN FRANCO on: 02/06/2018 09:09 AM Modules accepted: Orders documented in this encounter Plan of Treatment Not on file documented as of this encounter Results * XR Mandible 4 [...] obtained. COMPARISON: None available. FINDINGS: On the Chrisitana view a nodular density superimposes the angle [...] EVALUATION. 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 citalopram (CeleXA) 20 mg tablet Take 1 tablet (20 mg total) by mouth daily esomeprazole DR (NexIUM) 20 mg capsule Take 1 capsule (20 mg total) by mouth daily before breakfast clonazePAM (KlonoPIN) 1 mg tablet Take 1 tablet (1 mg total) by mouth daily propranolol LA [...] incidence of candidiasis. Do not swallow. 2 added in this encounter Care Teams Weatherization Director Relationship Specialty Start Date End Date Watson Perry MD PCP - General Family Medicine 01/24/18 documented as of this encounter
--- OUTSIDE RECORDS SUMMARY | 2024-11-23 15:13 | XMS_ITS | Encounter Summary ---
Author Organization [facility] Address [address] [place] [id number] Care Team Providers Care Grades 1 Thru 6 Home Teacher Name Role Phone Watson Perry MD Primary Care Provider [phone] Encounter Details Date Type Department Care Team (Late st Contact Info) Description 02/04/2018 Telephone [facility] [address] [place] [phone] Amanda Franco MA Social History Tobacco Use Types Packs/Day Years Used Date Smoking Tobacco: Every Day Cigarettes Smokeless Tobacco: Never Alcohol Use Standard Drinks/Week Comments No 0 (1 standard drink = 0.6 oz pur e alcohol) Comments Unknown Sex and Gender Information Value Date Recorded Sex Assigned at Not on file 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 Message was left for the pt to call the office. documented in this encounter Plan of Treatment Not on file documented as of this encounter Visit Diagnoses Not on filedocumented in this encounter Care Teams Grades 1 Thru 6 Home Teacher Relationship Specialty Start Date End Date Watson Perry MD PCP - General Family Medicine 01/24/18 documented as of this encounter
--- OUTSIDE RECORDS SUMMARY | 2024-11-23 15:15 | XMS_ITS ---
Author Name Nima Leach Address [address] [place] [address] Organization Unknown Address [address] [place] [address] ALLERGIES AND ADVERSE REACTIONS No information ASSESSMENT No information CHIEF COMPLAINT No information MEDICATIONS No information OBJECTIVE DATA No information PHYSICAL EXAMINATION No information TREATMENT PLAN Planned Care Start Date Provider Encounter for Check-up [id number] [facility] PROBLEMS No information RESULTS No information REVIEW OF SYSTEMS No information SUBJECTIVE DATA No information VITAL SIGNS No information
--- OUTSIDE RECORDS SUMMARY | 2024-11-23 18:06 | XMS_ITS | Encounter Summary ---
Author Organization [facility] Address [address] [place] [address] Care Team Providers Care Skirt Maker Name Role Phone Watson Perry MD Primary Care Provider [phone] Reason for Visit * Reason Onset Date Comments Scheduling 04/08/2021 Encounter Details Date Type Department Care Team (Late st Contact Info) Description 04/08/2021 Telephone [facility] [address] [place] [address] Kelley Sanfrod MD [address] [phone] Scheduling Social History Tobacco Use Types Packs/Day [...] on filedocumented in this encounter Care Teams Skirt Maker Relationship Specialty Start Date End Date Watson Perry MD [address] [place] [phone] PCP - General 12/03/19 documented as of this encounter
--- OUTSIDE RECORDS SUMMARY | 2024-11-23 18:06 | XMS_ITS | Clinical Summary ---
Author Organization [facility] Address [address] [place] [address] Phone Care Team Providers Care Waredresser Name Role Phone LYLA PERRY MD Primary Care Provider Reason for Visit and Chief Complaint The Chief Complaint is: States she has a Bakers cyst on the right knee that is very painful. Statesshe had it drained once at [facility], but it has come back Problems Includes: Problems addressed during this encounter and other active Problems Current Visit Onset Date Resolved Date Provider Conditio n Status Tobacco Use 09/19/2013 LYLA PERRY MD Inactive Last Documented On 06/05/2014 9:57AM ; [facility] Note: Unchanged History of Cancer, Nos 03/06/2013 LYLA PERRY MD Inactive Last Documented On 06/05/2014 9:56AM ; [facility] Note: Unchanged Reported Family History of Alcoholism 03/06/2013 LYLA PERRY MD Inactive Last Documented On 06/05/2014 9:56AM ; [facility] Note: Unchanged Reported Family History of Cancer 03/06/2013 LYLA PERRY MD Inactive Last Documented On 06/05/2014 9:56AM ; [facility] Note: Unchanged Cough 09/05/2012 LYLA PERRY MD Inactive Last Documented On 06/05/2014 9:55AM ; [facility] Note: Unchanged Palpitations 09/05/2012 MARLYS PALACIOS MD Active Last Documented On 09/05/2012 10:21AM ; [facility] Note: Unchanged Past Visits Onset Date Resolved Date Provider Condition Status Pain in the Right Foot 04/07/2024 KAITLIN ACOSTA DO Active Last Documented On 9:37AM ; [facility] Disorder of Muscle Weakness (Generalized) 02/26/2024 IDA COLLINS AN/SSN 2 4 OPERATOR-C Active Last Documented On 4 9:46AM ; [facility] Synovial Cyst of Popliteal Spaces Bilateral 02/26/2024 IDA MANCUSO FN P-C Active Last Documented On 4 4:13PM ; [facility] Joint Pain in the Right Knee 01/14/2024 ARTEMIO Bolanos Active Last Documented On 4 1:24PM ; [facility] Generalized Anxiety Disorder 10/25/2021 LYLA PERRY MD Active Last Documented On 1 2:02AM ; [facility] Note: Unchanged Osteoarthritis Localized Eun jian Right 1st Mtp Joint 04/15/2020 LYLA PERRY MD Active Last Documented On 0 2:51PM ; [facility] Note: Unchanged Actinic Keratosis 01/15/2018 LYLA PERRY MD Active Last Documented On 8 11:45PM ; [facility] Note: Unchanged Hypercholesterolemia 03/18/2017 LYLA PERRY MD Active Last Documented On 7 11:11PM ; [facility] Note: Unchanged Constipation Functional 03/20/2016 LYLA FROST MD Active Last Documented On 6 12:02AM ; [facility] Note: Unchanged Chronic Obstructive Pulmonar y Disease Moderate 03/20/2016 LYLA PERRY MD Active Last Documented On 6 12:02AM ; [facility] Note: Unchanged Nicotine Dependence in Remission 03/20/2016 HOLLIS PERRY MD Active Last Documented On 6 12:02AM ; [facility] Note: Unchanged Esophageal Reflux Without Esophagitis 11/18/2015 LYLA PERRY MD Active Last Documented On 5 4:41PM ; [facility] Note: Unchanged Persistent Insomnia 11/18/2015 LYLA PERRY MD Active Last Documented On 5 4:41PM ; [facility] Note: Unchanged Familial (Benign Essential) Tremor 06/19/2013 Guille PERRY MD Active Last Documented On 4 10:00AM ; [facility] Note: Unchanged Restless Legs Syndrome 09/05/2012 MARLYS VILLAVICENCIO MD Active Last Documented On 2 10:21AM ; [facility] Note: Unchanged Plan of Treatment Pending Tests Order Diagnosis Results Due Ordering P rovider Lab A1C HGB (GLYCO HEMOGLOBIN) 10/06/23 LYLA PERRY MD Last Documented On 4 1:25PM ; [facility] Lab LIPID PANEL 10/06/23 LYLA GARG MD Last Documented On 4 1:25PM ; [facility] Lab CMP 10/06/23 LYLA Cowan MD Last Documented On 4 1:25PM ; [facility] Lab CBC WITH DIFF 10/06/23 LYLA SHAFFER MD Last Documented On 4 1:25PM ; [facility] Referrals To Diagnosis Orthopedic KAITLIN ACOSTA DO Synovial cyst of popliteal space [Moseley], right knee Last Documented On 4 8:52PM ; [facility] Instructions to patient Intervention and counseling on cessation of tobacco use Last Documented On 4 4:02PM ; [facility] Assessments Includes: Assessments from this encounter Findings - Synovial cyst of right popliteal space [M71.21 - Synovial cyst of popliteal space [Moseley], right knee] - Last Documented On 03/24/2024 5:57AM ; [facility] Instructions Includes: Instructions from this encounter Instructions to patient Intervention and counseling on cessation of tobacco use Last Documented On 4 4:02PM ; [facility] Medical Equipment - Implanted [...] day 7-91 tab day 10-12then stop Pharmacy: [facility] - [address] [place] [address], [id number] - Last Documented On 03/10/2024 4:37PM By HOLLIS PERRY MD ; [facility] Current Medications (continue as prescribed) Rosuvastatin Calcium 10 MG Oral Tablet 05/09/2024 Provider: LYLA PERRY MD Diagnosis: Pure hypercholes terolemia, unspecified TAKE 1 TABLET BY MOUTH AT BEDTIME Last Documented On 05/09/2024 1:18PM By HOLLIS PERRY MD ; [facility] traMADol HCl 50 MG Oral Tablet 03/19/2024 Provider: ARTEMIO Bolanos Diagnosis: Pain in right kn ee One tablet four times a day Last Documented On 1:25PM By Artemio Vincent PA-C ; [facility] Albuterol-Budesonide 90-80 MCG/ACT Inhalation Aerosol 02/26/2024 Provider: Diagnosis: 2 puffs every 6 hrs PRN Last Documented On 02/26/2024 4:12PM By Bartolo DEL ANGEL ; [facility] Bisacodyl 5 MG Oral Tablet Delayed Release 02/26/2024 Provider: Diagnosis: 2 tabs Once a day PRN Last Documented On 02/26/2024 4:12PM By Bartolo DEL ANGEL ; [facility] Esomeprazole Magnesium 20 MG Oral Capsule Delayed Release 02/15/2024 Provider: LYLA SHAFFER MD Diagnosis: Gastro-esophagea l reflux disease without esophagitis Take 1 capsule by mouth once daily Last Documented On 02/15/2024 12:20AM By HOLLIS PERRY MD ; [facility] Furosemide 20 MG Oral Tablet 02/01/2024 Provider: LYLA PERRY MD Diagnosis: Localized edema TAKE 1/2 (ONE-HALF) TABLET B Y MOUTH ONCE DAILY IN THE MORNING Last Documented On 02/01/2024 9:42AM By HOLLIS PERRY MD ; [facility] Propranolol HCl ER 60 MG Ora l Capsule Extended Release 24 Hour 01/22/2024 Provider: LYLA PERRY MD Diagnosis: Take 1 capsule by mouth twice daily Last Documented On 01/22/2024 9:02PM By HOLLIS PERRY MD ; [facility] clonazePAM 1 MG Oral Tablet 2024 Provider: LYLA PERRY MD Diagnosis: Insomnia, unspec ified TAKE 1 TABLET BY MOUTH AT BEDTIME Last Documented On 2024 10:26PM By HOLLIS PERRY MD ; [facility] Citalopram Hydrobromide 20 M G Oral Tablet 11/03/2023 Provider: LYLA PERRY MD Diagnosis: Adjustment disor iliana with anxiety Take 1 tablet by mouth once daily Last Documented On 11/03/2023 8:04PM By HOLLIS PERRY MD ; [facility] Trelegy Ellipta 200-62.5-25 MCG/ACT Inhalation Aerosol Powder Breath Activated 09/15/2022 Provider: LYLA PERRY MD Diagnosis: 1 puff qd Last Documented On 09/15/2022 9:30AM By Ivania Sanchez Joslyn ; [facility] Fish Oil 1000 MG Oral Capsule 09/17/2020 Provide r: Diagnosis: Last Documented On 09/17/2020 8:34AM By Pamella Coker LPN ; [facility] Primidone 250 MG Oral Tablet 03/17/2020 Provider: Diagnosis: Last Documented On 03/17/2020 8:28AM By Viviane Ford Joslyn ; [facility] Womens Multivitamin Plus OR TABS 05/24/2012 Provider : MARLYS VILLAGOMEZ MD Diagnosis: OTC Last Documented On 05/24/2012 11:10AM By Azucena Ramos LPN ; [facility] Past Medications on file predniSONE 10 MG Oral Tablet 02/01/2024 - 02/11/2024 Provider: LYLA PERRY MD Diagnosis: Chronic obstruct kenna pulmonary disease, unspecified 6 TABS DAY 1-25 TABS DAY 3-4 4 TABS DAY 5-63 TABS DAY 7-82 TABS DAY 91 TAB DAY 10 THEN STOP Last Documented On 02/01/2024 9:42AM By HOLLIS PERRY MD ; [facility] Medications Administered Includes: Administered Medications from this encounter No Administered Medications Recorded Vital Signs Includes: Vital Signs from this encounter Vital Name 03/10/2024 03:52P Blood Pressure Sitting (mmHg) 120/62 Pulse Rate-Sitting (bpm) 64 Respiration Rate (breaths/min) 24 Height (in) 65 Last Documented: On 03/10/2024 4:01PM ; [facility] Results Includes: Results discussed during this encounter [...] 04/07/2024 Last Documented On 4 3:50PM ; [facility] No consumption of alcohol 02/26/2024 Last Documented On 4 3:50PM ; [facility] No tobacco use 02/26/2024 Last Documented On 4 3:50PM ; [facility] Tobacco non-user 02/01/2024 Last Documented On 4 3:50PM ; [facility] Not recovering alcoholic 02/01/2024 Last Documented On 4 3:50PM ; [facility] Not recovering from substance abuse 01/17 Last Documented On 4 3:50PM ; [facility] Consuming 5 or more drinks per day 12/21 Last Documented On 4 3:50PM ; [facility] Number of times used recreat ional drug/ prescription drug for nonmedical reason. 12/21/2023 Last Documented On 4 3:50PM ; [facility] Former smoker 03/29/2023 Last Documented On 4 3:50PM ; [facility] Marital history Wilder 06/15/2022 Last Documented On 4 3:50PM ; [facility] Drinking in moderation (2 drinks/day or fewer) 03/24/2021 Last Documented On 4 3:50PM ; [facility] No caffeine use 03/24/2021 Last Documented On 4 3:50PM ; [facility] Not using drugs 03/24/2021 Last Documented On 4 3:50PM ; [facility] Sexually active 03/24/2021 Last Documented On 4 3:50PM ; [facility] Exercising regularly 03/24/2021 Last Documented On 4 3:50PM ; [facility] Sexually active with 1 partners in the l ast year 03/24/2021 Last Documented On 4 3:50PM ; [facility] Smoking Status Unknown Procedures and Surgical History Includes: Procedures from this encounter Procedures Code Diagnosis Performing Provider Service L ocation Service Date plan of care reviewed and agreed to Last Documented On 4 4:38PM ; [facility] intervention and counseling on cessation of toba accounting analyst use 4000F Last Documented On 4 4:02PM ; [facility] use of tobacco assessment performed 1000F Last Documented On 4 4:02PM ; [facility] review of medications documented 1160F Last Documented On 4 4:02PM ; [facility] Reviewed & agreed to staff entries. Last Documented On 4 4:38PM ; [facility] Clinical summary provided to patient Last Documented On 4 4:38PM ; [facility] Surgical History Last Updated History of dilation and curettage 12/2019 and 05/31/20 03/24/2021 Last Documented On 4 3:50PM ; [facility] Surgical / procedural history D&C x 2 Last Documented On 4 3:50PM ; [facility] Surgical / procedural history Basal cell carcinoma of Nose excised 05/24/2012 Last Documented On 4 3:50PM ; [facility] Medical History Includes: Medical [...] 03/01/2024 Last Documented On 4 3:50PM ; [facility] Has had no fall in the last 12 months. 0 02/26/2024 Last Documented On 4 3:50PM ; [facility] Previous hospitalizations 02/26/2024 Last Documented On 4 3:50PM ; [facility] Pt does not get blood pressure checked a t other facility 02/01/2024 Last Documented On 4 3:50PM ; [facility] Vaccine history 02/01/2024 Last Documented On 4 3:50PM ; [facility] LMP: hysterectomy 03/29/2023 Last Documented On 4 3:50PM ; [facility] Vaginal delivery 03/24/2021 Last Documented On 4 3:50PM ; [facility] 3 10/27/2019 Last Documented On 4 3:50PM ; [facility] Para 3 10/27/2019 Last Documented On 4 3:50PM ; [facility] History of cancer 05/24/2012 Last Documented On 4 3:50PM ; [facility] Surgery P.A.T 1973 ~PLMS 11/200203/21/20 12 Last Documented On 4 3:50PM ; [facility] Family History Includes: Family History addressed during this encounter Description Last Updated Father 02/26/2024 Last Documented On 4 3:50PM ; [facility] Mother 02/26/2024 Last Documented On 4 3:50PM ; [facility] Family history unchanged 03/29/2023 Last Documented On 4 3:50PM ; [facility] heart disease PGF from heart at tack 03/24/2021 Last Documented On 4 3:50PM ; [facility] Family history of malignant female breas t neoplasm mom 03/24/2021 Last Documented On 4 3:50PM ; [facility] Maternal history of diabetes mellitus Last Documented On 4 3:50PM ; [facility] Paternal history of neurologic disorder PARKINSONS 02/10/2016 Last Documented On 4 3:50PM ; [facility] Family in poor health FATHER -PARKENSONS ~MOTHER -DIABETES 06/05/2014 Last Documented On 4 3:50PM ; [facility] Family history of alcoholism 05/24/2012 Last Documented On 4 3:50PM ; [facility] Family history of cancer 05/24/2012 Last Documented On 4 3:50PM ; [facility] Family history of diabetes mellitus 04/2012 Last Documented On 4 3:50PM ; [facility] Family history of heart disease 05/24/20 12 Last Documented On 4 3:50PM ; [facility] Review of Systems Includes: [...] Active Last Documented On 4 8:47AM ; [facility] Encounters Encounter Provider Location Date Check-In Time Check-Out Time Diagnosis PROBLEM VISIT LYLA PERRY MD [facility] 03/10/20 24 3:46PM 4:26PM Synovial Cyst of Popliteal Space Right Insurance Includes: Active Insurance Policies Plan Name Member ID Group # Subscriber Relationship Effect kenna Dates 1 - [employer] [id number] [place] Self Clinical Notes Includes: Clinical Notes from this encounter * Progress note Date Encounter Last Documented by 03/10/2024 PROBLEM VISIT Last documented on 03/24/2024; 5:57 AM, LYLA PERRY MD; [facility] Active Problems & Conditions [...] States she had it drained once at [facility], but it has come back. History of [...]
--- OUTSIDE RECORDS SUMMARY | 2024-11-23 18:06 | XMS_ITS | Referral Summary ---
Author Organization [email or web address] Address [address] [place] [address] Care Team Providers Care Silk Screen Etcher Name Role Phone Watson Perry MD Primary Care Provider Source Comments [facility],non-owned Affiliates and Associated Physician Practices is amultiple site organization consisting of ambulatory clinics and hospital sitesin [place], [place], [place] and [place]. This disclosure is being madepursuant to the Care Everywhere program and may not contain all information available regarding this patient. Last updated 18.[email or web address] Allergies Active Allergy Reactions Criticality Noted Date [...] tablet by mouth at bedtime 11/09/2019 Active [place]-3 Fatty Acids (FISH OIL PO) Take 1,000 [...] Recently Relevant to Health Maintenance Care Teams Silk Screen Etcher Relationship Specialty Start Date End Date Watson Perry MD [address] [place] [phone] PCP - General 12/03/19
--- OUTSIDE RECORDS SUMMARY | 2024-11-23 18:06 | XMS_ITS | Encounter Summary ---
Author Organization [facility] Address [address] [place] [address] Care Team Providers Care Apparel Sales Associate Name Role Phone Watson Perry MD Primary Care Provider [phone] Encounter Details Date Type Department Care Team [...] on filedocumented in this encounter Care Teams Apparel Sales Associate Relationship Specialty Start Date End Date Watson Perry MD [address] [place] [phone] PCP - General 12/03/19 documented as of this encounter
--- OUTSIDE RECORDS SUMMARY | 2024-11-23 18:06 | XMS_ITS | Encounter Summary ---
Author Organization [facility] Address [address] [facility] [place] [address] Care Team Providers Care Family Consultant Name Role Phone Watson Perry MD Primary Care Provider [phone] Reason for Visit * Reason Onset Date Comments Follow-up Report 03/23/2021 Encounter Details Date Type Department Care Team (Late st Contact Info) Description 03/23/2021 Telephone [facility] [address] [place] [address] Kelley Sanford MD [address] [phone] Follow-up Report Social History Tobacco Use Types [...] AM CDT [facility] [place], requesting reports from the patients last office visits to be faxed Call back# [phone] documented in this encounter Plan of Treatment Not on file documented as of this encounter Visit Diagnoses Not on filedocumented in this encounter Care Teams Family Consultant Relationship Specialty Start Date End Date Watson Perry MD [address] [place] [phone] PCP - General 12/03/19 documented as of this encounter
--- OUTSIDE RECORDS SUMMARY | 2024-11-23 18:06 | XMS_ITS | Clinical Summary ---
Author Organization [facility] Address [address] [place] [address] Phone Care Team Providers Care Assistant Customer Service Manager Name Role Phone LYLA COLEMAN MD Primary Care Provider [phone] Reason for Visit and Chief Complaint CHART UPDATE Problems Includes: Problems addressed during this encounter and other active Problems All Visits Onset Date Resolved Date Provider Condition S tatus Pain in the Right Foot 04/07/2024 KAITLIN ACOSTA DO Active Last Documented On 4 9:37AM ; [facility] Disorder of Muscle Weakness (Generalized) 02/26/2024 IDA COLLINS 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-C Active Last Documented On 4 9:46AM ; [facility] Synovial Cyst of Popliteal Spaces Bilateral 02/26/2024 IDA MANCUSO FN P-C Active Last Documented On 4 4:13PM ; [facility] Joint Pain in the Right Knee 01/14/2024 ARTEMIO Bolanos Active Last Documented On 4 1:24PM ; [facility] Generalized Anxiety Disorder 10/25/2021 LYLA COLEMAN MD Active Last Documented On 1 2:02AM ; [facility] Note: Unchanged Osteoarthritis Localized Eun jian Right 1st Mtp Joint 04/15/2020 LYLA COLEMAN MD Active Last Documented On 0 2:51PM ; [facility] Note: Unchanged Actinic Keratosis 01/15/2018 LYLA COLEMAN MD Active Last Documented On 8 11:45PM ; [facility] Note: Unchanged Hypercholesterolemia 03/18/2017 LYLA COLEMAN MD Active Last Documented On 7 11:11PM ; [facility] Note: Unchanged Constipation Functional 03/20/2016 LYLA FROST MD Active Last Documented On 6 12:02AM ; [facility] Note: Unchanged Chronic Obstructive Pulmonar y Disease Moderate 03/20/2016 LYLA COLEMAN MD Active Last Documented On 6 12:02AM ; [facility] Note: Unchanged Nicotine Dependence in Remission 03/20/2016 HOLLIS COLEMAN MD Active Last Documented On 6 12:02AM ; [facility] Note: Unchanged Esophageal Reflux Without Esophagitis 11/18/2015 LYLA COLEMAN MD Active Last Documented On 5 4:41PM ; [facility] Note: Unchanged Persistent Insomnia 11/18/2015 LYLA COLEMAN MD Active Last Documented On 5 4:41PM ; [facility] Note: Unchanged Familial (Benign Essential) Tremor 06/19/2013 T RIC COLEMAN MD Active Last Documented On 4 10:00AM ; [facility] Note: Unchanged Palpitations 09/05/2012 MARLYS VILLAGOMEZ MD Ac tive Last Documented On 2 10:21AM ; [facility] Note: Unchanged Restless Legs Syndrome 09/05/2012 MARLYS VILLAVICENCIO MD Active Last Documented On 2 10:21AM ; [facility] Note: Unchanged Plan of Treatment Pending Tests Order Diagnosis Results Due Ordering Pb jacobsen Lab A1C HGB (GLYCO HEMOGLOBIN) 10/06/23 LYLA COLEMAN MD Last Documented On 4 1:25PM ; [facility] Lab LIPID PANEL 10/06/23 LYLA GARG MD Last Documented On 4 1:25PM ; [facility] Lab CMP 10/06/23 LYLA Cowan MD Last Documented On 4 1:25PM ; [facility] Lab CBC WITH DIFF 10/06/23 LYLA SHAFFER MD Last Documented On 4 1:25PM ; [facility] Assessments Includes: Assessments from this encounter No [...] 05/09/2024 1:18PM By HOLLIS COLEMAN MD ; [facility] traMADol HCl 50 MG Oral Tablet 03/19/2024 Provider: ARTEMIO Bolanos Diagnosis: Pain in right kn ee One tablet four times a day Last Documented On 1:25PM By Artemio Vincent PA-C ; [facility] Albuterol-Budesonide 90-80 MCG/ACT Inhalation Aerosol 02/26/2024 Provider: Diagnosis: 2 puffs every 6 hrs PRN Last Documented On 02/26/2024 4:12PM By Bartolo DEL ANGEL ; [facility] Bisacodyl 5 MG Oral Tablet Delayed Release 02/26/2024 Provider: Diagnosis: 2 tabs Once a day PRN Last Documented On 02/26/2024 4:12PM By Bartolo DEL ANGEL ; [facility] Esomeprazole Magnesium 20 MG Oral Capsule Delayed Release 02/15/2024 Provider: LYLA SHAFFER MD Diagnosis: Gastro-esophagea l reflux disease without esophagitis Take 1 capsule by mouth once daily Last Documented On 02/15/2024 12:20AM By HOLLIS COLEMAN MD ; [facility] Furosemide 20 MG Oral Tablet 02/01/2024 Provider: LYLA COLEMAN MD Diagnosis: Localized edema TAKE 1/2 (ONE-HALF) TABLET B Y MOUTH ONCE DAILY IN THE MORNING Last Documented On 02/01/2024 9:42AM By HOLLIS COLEMAN MD ; [facility] Propranolol HCl ER 60 MG Ora l Capsule Extended Release 24 Hour 01/22/2024 Provider: LYLA COLEMAN MD Diagnosis: Take 1 capsule by mouth twice daily Last Documented On 01/22/2024 9:02PM By HOLLIS COLEMAN MD ; [facility] clonazePAM 1 MG Oral Tablet 2024 Provider: LYLA COLEMAN MD Diagnosis: Insomnia, unspec ified TAKE 1 TABLET BY MOUTH AT BEDTIME Last Documented On 2024 10:26PM By HOLLIS COLEMAN MD ; [facility] Citalopram Hydrobromide 20 M G Oral Tablet 11/03/2023 Provider: LYLA COLEMAN MD Diagnosis: Adjustment disor iliana with anxiety Take 1 tablet by mouth once daily Last Documented On 11/03/2023 8:04PM By HOLLIS COLEMAN MD ; [facility] Trelegy Ellipta 200-62.5-25 MCG/ACT Inhalation Aerosol Powder Breath Activated 09/15/2022 Provider: LYLA COLEMAN MD Diagnosis: 1 puff qd Last Documented On 09/15/2022 9:30AM By Ivania Sanchez Joslyn ; [facility] Fish Oil 1000 MG Oral Capsule 09/17/2020 Provide r: Diagnosis: Last Documented On 09/17/2020 8:34AM By Pamella Coker LPN ; [facility] Primidone 250 MG Oral Tablet 03/17/2020 Provider: Diagnosis: Last Documented On 03/17/2020 8:28AM By Viviane Ford Joslyn ; [facility] Womens Multivitamin Plus OR TABS 05/24/2012 Provider : MARLYS VILLAGOMEZ MD Diagnosis: OTC Last Documented On 05/24/2012 11:10AM By Azucena Ramos LPN ; [facility] Medications Administered Includes: Administered Medications from [...] (Reported) Patient Last Documented On 10:02AM ; [facility] Fluzone High-dose Quadrivalent 3 08/01/2023 Left Deltoid Complete (Reported) Pat ient Last Documented On 4 10:02AM ; [facility] Allergies Includes: Active Allergies Substance Type Reaction Onset Date Resolved Date Statu s Ibuprofen Allergy 03/21/2012 Active Last Documented On 4 8:47AM ; [facility] Encounters Encounter Provider Location Date Check-In Time Check-Out Time Diagnosis CHART UPDATE LYLA COLEMAN MD 02/27/2024 10:02AM 11:59PM Insurance Includes: Active Insurance Policies Plan Name Member ID Group # Subscriber Relationship Effect kenna Dates 1 - [employer] [id number] [place] Self Clinical Notes Includes: Clinical Notes from this encounter No Clinical Notes Recorded
--- OUTSIDE RECORDS SUMMARY | 2024-11-23 18:06 | XMS_ITS | Patient Health Summary ---
Author Organization [facility] Address [address] [place] [address] Care Team Providers Care Dietary Services Manager Name Role Phone Watson Perry MD Primary Care Provider [phone] Note from [facility],non-owned Affiliates and Associated Physician Practices is amultiple site organization consisting of ambulatory clinics and hospital sitesin [place], [place], [place] and [place]. This disclosure is being madepursuant to the Care Everywhere program and may not contain all information available regarding this patient. Last updated 18.[facility] Allergies * Ibuprofen Micronized(Rash) -Medium Criticality Medications [...] (one) tablet by mouth at bedtime * [place]-3 Fatty Acids (FISH OIL PO) Take 1,000 [...] (STL)(Performed 05/31/2020) Performed for Diagnosis unknown * MN HYSTEROSCOPY,W/ENDO BX(Performed 05/31/2020) Performed for Diagnosis unknown * IMAGING/RADIOLOGY/XRAY RESULTS ORDER(Performed 05/14/2020) * MN SONO EXAM, TRANSVAGINAL(Performed 05/13/2020) Performed for Simple endometrial hyperplasia, Postmenopausal bleeding * MAMMOGRAM(Performed 01/19/2020) * PET CT SKULL TO MID THIGH(Performed 12/30/2019) Performed for Thickened endometrium, Postmenopausal bleeding, Retroperitoneal lymphadenopathy, Mesenteric lymphadenopathy * IMAGING/RADIOLOGY/XRAY RESULTS ORDER(Performed 12/18/2019) * CARDIAC RHYTHM STRIP ORDER(Performed 12/17/2019) * PATHOLOGY TISSUE EXAM (STL)(Performed 12/15/2019) Performed for Diagnosis unknown * MN HYSTEROSCOPY,W/ENDO BX(Performed 12/15/2019) Performed for Diagnosis unknown [...] syndromes. > Dictated by Waqas Garcia MD (Natural Gas Plant Technician) 05/15/2024 12:25 PM Adri Mcclure DO have [...] syndromes. > Dictated by Waqas Garcia MD (Natural Gas Plant Technician) 05/15/2024 12:25 PM Adri Mcclure DO have [...] 06/01/2021 1:33 PM CDT [facility] [place] [id number] 06/01/2021 1:33 PM CDT [facility] Blood, arterial ARTERIAL BLOOD SPECIMEN / Unknown 06/01/2021 1:06 PM CDT 06/01/2021 1:06 PM CDT Ahsan Sung MD LAB - BLOOD GASES ORDERABLES [facility] [address] [phone] * PATHOLOGY TISSUE EXAM (STL) (06/01/2021 11:12 AM CDT) Only the most recent of3 resultswithin the time period is included. Case Report Surgical Pathology Report ? Case: [id number] ? Authorizing Provider: ??Kelley Sanford MD ?Collected: ? 06/01/2021 11:12 AM ? Ordering Location: ? [facility] ? Received: ?06/01/2021 11:16 AM ? Pathologist: ? Devan Palacios MD ? Specimen: ?Uterus w Cervix, uterus,cervix, bilateral tubes and ovaries ? 06/06/2021 8:39 AM CDT [facility] Final Diagnosis Cervix uteri: No significant histopathologic changes. 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 Adenomyosis. Leiomyoma. Fallopian tube right: Benign paratubal cyst. Ovary, right: Fibroma Hilar nodule. Fallopian tube, left: Benign paratubal cyst. Ovary, left: Hilar nodule. 06/06/2021 8:39 AM CDT [facility] Gross Description The requisition and specimen [...] in diameter. Sectioning shows unremarkable cut surfaces. Assorter sections submitted as follows: A1-frozen section control, endomyometrium, A2-anterior cervix, A3-posterior cervix, I0-Z80-holjhubs endomyometrium entirely, from lower uterine segment to fundus, Q70-G47-vvaeyiemf endomyometrium entirely from lower uterine segment to fundus, W45-ergnlnurnr mass and hemorrhagic myometrium, F72-ubjyh ovary, C90-uzwwc fallopian tube, B74-mwqp ovary, A55-qdag tube. LJ Note: Per pathologist the endometrial cavity is submitted entirely. 06/06/2021 8:39 AM CDT [facility] Microscopic Description Microscopic examination was performed. 06/06/2021 8:39 AM T [facility] Disclaimer All histochemical and/or immunohistochemical results are interpreted with controls that demonstrate appropriate staining reactions before reporting results. Note on use of immunocytochemistry reagents: This test was developed and its performance characteristic determined by [facility], Department of Laboratory Medicine. It has [...] interpreted with caution. 06/06/2021 8:39 AM CDT [facility] Embedded Images 06/06/2021 8:39 AM CDT [facility] Pathology/Cytolo gy SPECIMEN FROM UTERINE CERVIX OBTAINED BY HYSTERECTOMY / Unknown 06/01/2021 11:12 AM CDT 06/01/2021 11:16 AM CDT Comment:Pre-op diagnosis: Diagnosis unknown [R69] Kelley Sanford MD LAB - PATHOLOGY/CY TOLOGY ORDERABLES [facility] [address] [place] [address] * BLOOD TYPE VERIFICATION (06/01/2021 10:25 AM CDT) ABO Rh A POS 06/01/2021 10:55 AM CDT [facility] Blood Bank BLOOD SPECIMEN / Unknown Lab Venipuncture / Unknown 06/01/2021 10:25 AM CDT 06/01/2021 10:25 AM CDT Kelley Sanford MD LAB - BLOOD BANK O RDERABLES [facility] [address] [place] [address], [facility] [phone] * ETT LINE PERFORMABLE (06/01/2021 10:21 AM CDT) Narrative Joie Boyer APRN-CRNA - 06/01/2021 10:21 AM CDT Joie Boyer APRN-CRNA ? 06/01/2021 10:22 AM Endotracheal Tube Placement: ? Patient Location: OR. Intubation Event Date/Time: ??06/01/2021 10:04 AM Procedure: intubation ([id number]). Procedure Section: ?? Sedation: under general anesthesia. [...] Staff Section ?? Anesthesia Provider: Joie Boyer APRN-INSPECTOR [employer]ED [employer]AR[employer], Performed the procedure Provider #1: hAsan Sung MD. Additional Comments: Atraumatic intubation, dentition and lips same as baseline. Ahsan Sung MD GENERAL ANESTHESIA ORDERABLES * TYPE + SCREEN PANEL (06/01/2021 9:24 AM CDT) ABO Rh A POS 06/01/2021 10:16 AM CDT [facility] Comment:No history; collect retype. Antibody Screen NEG 10:16 AM CDT [facility] Blood Bank BLOOD SPECIMEN / Unknown Venipuncture / Unknown 06/01/2021 9:24 AM CDT 06/01/2021 9:36 AM CDT Kelley Sanford MD LAB - BLOOD BANK O RDERABLES [facility] [address] [phone] * (ABNORMAL) CBC W AUTO DIFFERENTIAL (06/01/2021 9:24 AM CDT) Only the most recent of2 resultswithin the time period is included. WBC 6.3 4.4 - 10.7 x10E9/L 06/01/2021 9:39 AM CDT [facility] WBC Corrected 06/01/2021 9:39 AM CDT [facility] RBC 5.47(H) 3.80 - 5.20 x10E12/L 06/01/2021 9:39 AM CDT [facility] Hemoglobin 15.5 12.0 - 15.6 gm/dL 06/01/2021 9:39 AM CDT [facility] Hematocrit 50.1(H) 35.9 - 45.5 % 06/01/2021 9:39 AM CDT [facility] MCV 91.6 80.7 - 98.3 fl 06/01/2021 9:39 AM CDT [facility] MCH 28.3 26.7 - 34.0 pg 06/01/2021 9:39 AM CDT [facility] MCHC 30.9 30.8 - 35.9 gm/dL 06/01/2021 9:39 AM CDT [facility] Platelet Count 326 153 - 416 x10E9/L 06/01/2021 9:39 AM CDT [facility] RDW-CV 16.4(H) 12.1 - 14.9 % 06/01/2021 9:39 AM CDT [facility] MPV 8.6(L) 9.4 - 12.9 fl 06/01/2021 9:39 AM CDT [facility] Neutrophils % 47.8 44.0 - 73.0 % 06/01/2021 9:39 AM CDT [facility] Lymphocytes % 41.6 20.0 - 43.0 % 06/01/2021 9:39 AM CDT [facility] Monocytes % 6.8 5.0 - 13.0 % 06/01/2021 9:39 AM CDT [facility] Eosinophils % 2.5 0.0 - 6.0 % 06/01/2021 9:39 AM CDT [facility] Basophils % 1.1 0.0 - 2.0 % 06/01/2021 9:39 AM CDT [facility] Immature Granulocytes 0.2 0 - 1 % 06/01/2021 9:39 AM CDT [facility] Neutrophil Absolute 3.02 2.01 - 7.14 x10E9/L 06/01/2021 9:39 AM CDT [facility] Lymphocytes Absolute 2.63 1.07 - 3.94 x10E9/L 06/01/2021 9:39 AM CDT [facility] Monocytes Absolute 0.43 0.26 - 1.07 x10E9/L 06/01/2021 9:39 AM CDT [facility] Eosinophils Absolute 0.16 0 - 0.47 x10E9/L 06/01/2021 9:39 AM CDT [facility] Basophils Absolute 0.07 0 - 0.08 x10E9/L 06/01/2021 9:39 AM CDT [facility] Immature Granulocytes Absolute 0.01 0.00 - 0.06 x10E9/L 06/01/2021 9:39 AM CDT [facility] nRBC Auto 0 /100 WBC 06/01/2021 9:39 AM CDT [facility] Blood BLOOD SPECIMEN / Unknown Venipuncture / Unknown 06/01/2021 9:24 AM CDT 06/01/2021 9:35 AM CDT Kelley Sanford MD LAB - HEMATOLOGY O RDERABLES [facility] [address] [place] [address] * (ABNORMAL) COMPREHENSIVE METABOLIC PANEL (06/01/2021 9:24 AM CDT) [facility] Glucose 90 70 - 105 mg/dL 06/01/2021 10:10 AM [facility] Sodium 137 136 - 145 mmol/L 06/01/2021 10:10 AM [facility] Potassium 4.2 3.5 - 5.1 mmol/L 06/01/2021 10:10 AM [facility] Chloride 100 98 - 107 mmol/L 06/01/2021 10:10 AM [facility] CO2 32(H) 23 - 31 mmol/L 06/01/2021 10:10 AM [facility] Calcium 9.9 8.4 - 10.4 mg/dL 06/01/2021 10:10 AM [facility] Anion Gap 5(L) 8 - 18 mmol/L 06/01/2021 10:10 AM [facility] BUN 11 9.8 - 20.1 mg/dL 06/01/2021 10:10 AM [facility] Creatinine 0.69 0.57 - 1.11 mg/dL 06/01/2021 10:10 AM [facility] Alkaline Phosphatase 59 40 - 150 U/L 06/01/2021 10:10 AM [facility] ALT 17 0 - 61 U/L 06/01/2021 10:10 AM [facility] AST 19 5 - 34 U/L 06/01/2021 10:10 AM [facility] Protein Total 6.6 6.4 - 8.3 gm/dL 06/01/2021 10:10 AM [facility] Albumin 3.9 3.2 - 4.6 gm/dL 06/01/2021 10:10 AM [facility] Bilirubin Total 0.5 0.2 - 1.2 mg/dL 06/01/2021 10:10 AM [facility] eGFR by MDRD >60 >60 mL/min/1.7 3m2 06/01/2021 10:10 AM [facility] eGFR by MDRD >60 >60 mL/min/1.7 3m2 06/01/2021 10:10 AM [facility] Blood BLOOD SPECIMEN / Unknown Venipuncture / Unknown 06/01/2021 9:24 AM CDT 06/01/2021 9:35 AM CDT Kelley Sanford MD LAB - CHEMISTRY OR DERABLES [facility] [address] [place] [address] * IMAGING RADIOLOGY XRAY RESULTS ORDER (05/14/2020 7:00 AM CDT) Only the most recent of2 resultswithin the time period is included. Anatomical Region Laterality Modality Other Narrative 05/14/2020 7:00 AM CDT Ordered by an unspecified provider. Scanned Document IMAGING * MN SONO EXAM, TRANSVAGINAL (05/13/2020 11:05 AM CDT) Narrative Leanne Levy - 05/13/2020 11:05 AM CDT Leanne Levy ? 05/13/2020 11:05 AM Documentation in digisonics. Kelley Sanford MD PROCEDURE/MINOR MAJOR RGICAL ORDERABLES * MAMMOGRAM (01/19/2020) Anatomical Region Laterality Modality Other Historical Provider MD SCANNING ONLY * PET CT SKULL TO MID THIGH (12/30/2019 2:54 PM TABLE FILLER) Anatomical Region Laterality Modality Head, Lower Extremity Nuclear Me dicine 12/31/2019 9:20 AM TABLE FILLER Addenda Addendum by Adri Van, on 12/31/2019 10:44 AM TABLE FILLER In addition to the impression, there is somewhat dense breast tissue bilaterally with mild FDG uptake as well as a moderately FDG avid 1.2 cm left axillary node. Findings may be reactive but malignancy is not excluded. Recommend further evaluation with mammography if not already performed. Addending Radiologist: Adri Van MD on 12/31/2019 at 10:41 AM Impressions 12/31/2019 10:05 AM TABLE FILLER 1. Enlarged uterus with intense FDG uptake [...] at 10:05 AM Narrative 12/31/2019 10:05 AM TABLE FILLER Procedure: PET/CT study Referring physician: Dr. Sanford [...] DERMATOLOGY (03/14/2013 12:00 AM CDT) Result CASE: [id number] PATIENT: [place] PATHOLOGIC DIAGNOSIS: Right anterior [...] out by Aydee Beth M.D. 03/18/2013 2:00:38PM [facility] Comment: Performed at: Dermatopathology Laboratory [facility] - Department of Dermatology [address] [place] [address], Room [address] [place] [address] Phone number: [phone] Toll Free: [phone] FAX: [phone] Skin (tissue) specimen (specimen) 03/14/2013 03/17/2013 Narrative [facility] - 03/18/2013 2:00 PM CDT Specimen A: Type->Shave ?Site->right anterior knee ?History->pink papule with vascular dots ?Impression->hemangioma vs clear cell acanthoma vs r/o BCC ?Check Margins:->N/A ?Prior Biopsy->N/A Meenakshi Raphael MD LAB - PATHOLOGY/CY TOLOGY ORDERABLES Performing Organization Address [facility] Co de Phone Number [facility] [address] [place] [address]. [address] [place] [address], [facility] [phone] * PATHOLOGY/GENETICS HISTORICAL-ONBASE (01/30/2011) Only the most [...] CDT) PT 9.6 9.4 - 11.4 seconds [facility] INR 0.91 SEE BELOW [facility] Comment: Conventional anticoagulation ?? 2.0-3.0 Intensive anticoagulation ?? 2.5-3.5 PTT 26.9 24.0 - 33.0 seconds [facility] BLOOD SPECIMEN / Unknown 05/11/2010 11:04 AM CDT 05/11/2010 11:04 AM CDT Provider Unknown LAB - COAGULATION OR DERABLES [facility] [address] [place] [address] * BASIC METABOLIC PANEL (CALCIUM TOTAL) (05/11/2010 11:04 AM CDT) Sodium 143 137 - 145 mmol/L [facility] Potassium 4.5 3.6 - 5.0 mmol/L [facility] Chloride 106 98 - 107 mmol/L [facility] BUN 9 7 - 17 mg/dl [facility] Creatinine 0.82 0.52 - 1.04 mg/dl [facility] Glucose 101 65 - 105 mg/dl [facility] CO2 28 22 - 30 mmol/L [facility] Calcium 10.2 8.4 - 10.2 mg/dl [facility] eGFR by MDRD 72 >60 mL/min/1.7 3m2 [facility] Comment eGFR [facility] Comment: ? The eGFR does not apply to patients who are younger than ? 18 or older than 70. BLOOD SPECIMEN / Unknown 05/11/2010 11:04 AM CDT 05/11/2010 11:04 AM CDT Provider Unknown LAB - CHEMISTRY [place] [facility] Organization Address City/State/[facility] Co de Phone Number [facility] [address] [place] [address] * EKG 12-LEAD (05/11/2010) Ahsan Mccullough MD ECG ORDERABLES Care Teams Dietary Services Manager Relationship Specialty Start Date End Date Watson Perry MD [address] [place] [phone] PCP - General 12/03/19
--- OUTSIDE RECORDS SUMMARY | 2024-11-23 18:06 | XMS_ITS | Encounter Summary ---
Author Organization [facility] Address [address] [place] [address] Care Team Providers Care Flying Teacher Name Role Phone Watson Perry MD Primary Care Provider [phone] Reason for Visit * Reason Onset Date Comments Record Request 03/23/2021 Encounter Details Date Type Department Care Team (Late st Contact Info) Description 03/23/2021 Telephone [facility] [address] [place] [address] Kelley Sanford MD [address] [id number] Record Request Social History Tobacco Use Types [...] with them tomorrow 03/24/21 at 8:45 AM Callback:[phone] ext [phone] documented in this encounter Plan of Treatment Not on file documented as of this encounter Visit Diagnoses Not on filedocumented in this encounter Care Teams Flying Teacher Relationship Specialty Start Date End Date Watson Perry MD [address] [place] [address] [phone] PCP - General 12/03/19 documented as of this encounter
--- OUTSIDE RECORDS SUMMARY | 2024-11-23 18:06 | XMS_ITS | Clinical Summary ---
Author Organization [facility] Address [address] [place] [address] Phone Care Team Providers Care Gum Maker Name Role Phone LYLA COLEMAN MD Primary Care Provider [phone] Reason for Visit and Chief Complaint * PHONE CALL Problems Includes: Problems addressed during this encounter and other active Problems Current Visit Onset Date Resolved Date Provider Conditio n Status Joint Pain in the Right Knee 01/14/2024 ARTEMIO Bolanos Active Last Documented On 4 1:24PM ; [facility] Past Visits Onset Date Resolved Date Provider Condition Status Pain in the Right Foot 04/07/2024 KAITLIN ACOSTA DO Active Last Documented On 4 9:37AM ; [facility] Disorder of Muscle Weakness (Generalized) 02/26/2024 IDA 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 Last Documented On 4 9:46AM ; [facility] Synovial Cyst of Popliteal Spaces Bilateral 02/26/2024 IDA MANCUSO FN P-C Active Last Documented On 4 4:13PM ; [facility] Generalized Anxiety Disorder 10/25/2021 LYLA COLEMAN MD Active Last Documented On 1 2:02AM ; [facility] Note: Unchanged Osteoarthritis Localized Eun jina Right 1st Mtp Joint 04/15/2020 LYLA COLEMAN MD Active Last Documented On 0 2:51PM ; [facility] Note: Unchanged Actinic Keratosis 01/15/2018 LYLA COLEMAN MD Active Last Documented On 8 11:45PM ; [facility] Note: Unchanged Hypercholesterolemia 03/18/2017 LYLA COLEMAN MD Active Last Documented On 7 11:11PM ; [facility] Note: Unchanged Constipation Functional 03/20/2016 LYLA FROST MD Active Last Documented On 6 12:02AM ; [facility] Note: Unchanged Chronic Obstructive Pulmonar y Disease Moderate 03/20/2016 LYLA COLEMAN MD Active Last Documented On 6 12:02AM ; [facility] Note: Unchanged Nicotine Dependence in Remission 03/20/2016 HOLLIS COLEMAN MD Active Last Documented On 6 12:02AM ; [facility] Note: Unchanged Esophageal Reflux Without Esophagitis 11/18/2015 LYLA COLEMAN MD Active Last Documented On 5 4:41PM ; [facility] Note: Unchanged Persistent Insomnia 11/18/2015 LYLA COLEMAN MD Active Last Documented On 5 4:41PM ; [facility] Note: Unchanged Familial (Benign Essential) Tremor 06/19/2013 T RIC COLEMAN MD Active Last Documented On 4 10:00AM ; [facility] Note: Unchanged Palpitations 09/05/2012 MARLYS VILLAGOMEZ MD Ac tive Last Documented On 2 10:21AM ; [facility] Note: Unchanged Restless Legs Syndrome 09/05/2012 MARLYS VILLAVICENCIO MD Active Last Documented On 2 10:21AM ; [facility] Note: Unchanged Plan of Treatment Pending Tests Order Diagnosis Results Due Ordering Pb jacobsen Lab A1C HGB (GLYCO HEMOGLOBIN) 10/06/23 LYLA COLEMAN MD Last Documented On 4 1:25PM ; [facility] Lab LIPID PANEL 10/06/23 LYLA GARG MD Last Documented On 4 1:25PM ; [facility] Lab CMP 10/06/23 LYLA Cowan MD Last Documented On 4 1:25PM ; [facility] Lab CBC WITH DIFF 10/06/23 LYLA SHAFFER MD Last Documented On 4 1:25PM ; [facility] Referrals To Diagnosis Orthopedic JENNIFER HESTER MD Pain in right knee Note: [facility] [place] Last Documented On 1:18PM ; [facility] Assessments Includes: Assessments from this encounter Findings - Right knee joint pain [M25.561 - Pain in right knee] - Last Documented On 04/21/2024 1:00PM ; [facility] Medical Equipment - Implanted Devices Includes: Current Devices No Medical Equipment Recorded Medications Includes: Medications discussed during this encounter and other current Medications Current Medications (continue as prescribed) Rosuvastatin Calcium 10 MG Oral Tablet 05/09/2024 Provider: LYLA COLEMAN MD Diagnosis: Pure hypercholes terolemia, unspecified TAKE 1 TABLET BY MOUTH AT BEDTIME Last Documented On 05/09/2024 1:18PM By HOLLIS COLEMAN MD ; [facility] traMADol HCl 50 MG Oral Tablet 03/19/2024 Provider: ARTEMIO Bolanos Diagnosis: Pain in right kn ee One tablet four times a day Last Documented On 1:25PM By Artemio Vincent PA-C ; [facility] Albuterol-Budesonide 90-80 MCG/ACT Inhalation Aerosol 02/26/2024 Provider: Diagnosis: 2 puffs every 6 hrs PRN Last Documented On 02/26/2024 4:12PM By Bartolo DEL ANGEL ; [facility] Bisacodyl 5 MG Oral Tablet Delayed Release 02/26/2024 Provider: Diagnosis: 2 tabs Once a day PRN Last Documented On 02/26/2024 4:12PM By Bartolo DEL ANGEL ; [facility] Esomeprazole Magnesium 20 MG Oral Capsule Delayed Release 02/15/2024 Provider: LYLA SHAFFER MD Diagnosis: Gastro-esophagea l reflux disease without esophagitis Take 1 capsule by mouth once daily Last Documented On 02/15/2024 12:20AM By HOLLIS COLEMAN MD ; [facility] Furosemide 20 MG Oral Tablet 02/01/2024 Provider: LYLA COLEMAN MD Diagnosis: Localized edema TAKE 1/2 (ONE-HALF) TABLET B Y MOUTH ONCE DAILY IN THE MORNING Last Documented On 02/01/2024 9:42AM By HOLLIS COLEMAN MD ; [facility] Propranolol HCl ER 60 MG Ora l Capsule Extended Release 24 Hour 01/22/2024 Provider: LYLA COLEMAN MD Diagnosis: Take 1 capsule by mouth twice daily Last Documented On 01/22/2024 9:02PM By HOLLIS COLEMAN MD ; [facility] clonazePAM 1 MG Oral Tablet 2024 Provider: LYLA COLEMAN MD Diagnosis: Insomnia, unspec ified TAKE 1 TABLET BY MOUTH AT BEDTIME Last Documented On 2024 10:26PM By HOLLIS COLEMAN MD ; [facility] Citalopram Hydrobromide 20 M G Oral Tablet 11/03/2023 Provider: LYLA COLEMAN MD Diagnosis: Adjustment disor iliana with anxiety Take 1 tablet by mouth once daily Last Documented On 11/03/2023 8:04PM By HOLLIS COLEMAN MD ; [facility] Trelegy Ellipta 200-62.5-25 MCG/ACT Inhalation Aerosol Powder Breath Activated 09/15/2022 Provider: LYLA COLEMAN MD Diagnosis: 1 puff qd Last Documented On 09/15/2022 9:30AM By Ivania Sanchez Joslyn ; [facility] Fish Oil 1000 MG Oral Capsule 09/17/2020 Provide r: Diagnosis: Last Documented On 09/17/2020 8:34AM By Pamella Coker LPN ; [facility] Primidone 250 MG Oral Tablet 03/17/2020 Provider: Diagnosis: Last Documented On 03/17/2020 8:28AM By Viviane Ford Joslyn ; [facility] Womens Multivitamin Plus OR TABS 05/24/2012 Provider : MARLYS VILLAGOMEZ MD Diagnosis: OTC Last Documented On 05/24/2012 11:10AM By Azucena Ramos LPN ; [facility] Past Medications on file predniSONE 10 MG Oral Tablet 03/10/2024 - 03/22/2024 Provider: LYLA COLEMAN MD Diagnosis: Synovial cyst of popliteal space [[place]], right knee as directed 6 tabs day 1-34 tabs day 4-62 tabs day 7-91 tab day 10-12then stop Last Documented On 03/10/2024 4:37PM By HOLLIS COLEMAN MD ; [facility] predniSONE 10 MG Oral Tablet 02/01/2024 - 02/11/2024 Provider: LYLA COLEMAN MD Diagnosis: Chronic obstruct kenna pulmonary disease, unspecified 6 TABS DAY 1-25 TABS DAY 3-4 4 TABS DAY 5-63 TABS DAY 7-82 TABS DAY 91 TAB DAY 10 THEN STOP Last Documented On 02/01/2024 9:42AM By HOLLIS COLEMAN MD ; [facility] Medications Administered Includes: Administered Medications [...] Active Last Documented On 4 8:47AM ; [facility] Encounters Encounter Provider Location Date Check-In Time Check-Out Time Diagnosis * PHONE CALL LYLA COLEMAN MD 4 11:29AM 11:59PM Assessment of Joint Pain in the Right Knee Insurance Includes: Active Insurance Policies Plan Name Member ID Group # Subscriber Relationship Effect kenna Dates 1 - [employer] [id number] [place] Self Clinical Notes Includes: Clinical Notes from this encounter * Progress note Date Encounter Last Documented by 04/21/2024 * PHONE CALL Last documented on 04/21/2024; 1:00 PM, LYLA COLEMAN MD; [facility] Active Problems & Conditions - [...] to go down to Dr. Hester at [place] for orthopedic as they don't feel is [...] Pain in right knee Referral: Orthopedic Instructions: [place] OFFICE PLEASE EndCited
--- OUTSIDE RECORDS SUMMARY | 2024-11-23 18:06 | XMS_ITS | Clinical Summary ---
Author Organization [facility] Address [address] [place] [address] Phone Care Team Providers Care Leader Writer Name Role Phone LYLA COLEMAN MD Primary [...] she followed up in the ER for [facility]. She states she could not walk following this injection and that the ER had to drain her knee. She was then admitted for a week and then transferred to a jail rehab. She does state that today her [...] Active Last Documented On 4 9:37AM ; [facility] Joint Pain in the Right Knee 01/14/2024 ARTEMIO Bolanos Active Last Documented On 4 1:24PM ; [facility] History of Cancer, Nos 03/06/2013 LYAL GARG MD Inactive Last Documented On 4 9:56AM ; [facility] Note: Unchanged Reported Family History of Alcoholism 03/06/2013 LYLA COLEMAN MD Inactive Last Documented On 4 9:56AM ; [facility] Note: Unchanged Reported Family History of Cancer 03/06/2013 PARAS COLEMAN MD Inactive Last Documented On 4 9:56AM ; [facility] Note: Unchanged Past Visits Onset Date Resolved Date Provider Condition Status Disorder of Muscle Weakness (Generalized) 02/26/2024 IDA MANCUSO CABLE TOOL OPERATOR-C Active Last Documented On 4 9:46AM ; [facility] Synovial Cyst of Popliteal Spaces Bilateral 02/26/2024 IDA MANCUSO FN P-C Active Last Documented On 4 4:13PM ; [facility] Generalized Anxiety Disorder 10/25/2021 LYLA COLEMAN MD Active Last Documented On 1 2:02AM ; [facility] Note: Unchanged Osteoarthritis Localized Eun jian Right 1st Mtp Joint 04/15/2020 LYLA COLEMAN MD Active Last Documented On 0 2:51PM ; [facility] Note: Unchanged Actinic Keratosis 01/15/2018 LYLA COLEMAN MD Active Last Documented On 8 11:45PM ; [facility] Note: Unchanged Hypercholesterolemia 03/18/2017 LYLA COLEMAN MD Active Last Documented On 7 11:11PM ; [facility] Note: Unchanged Constipation Functional 03/20/2016 LYLA FROST MD Active Last Documented On 6 12:02AM ; [facility] Note: Unchanged Chronic Obstructive Pulmonar y Disease Moderate 03/20/2016 LYLA COLEMAN MD Active Last Documented On 6 12:02AM ; [facility] Note: Unchanged Nicotine Dependence in Remission 03/20/2016 HOLLIS COLEMAN MD Active Last Documented On 6 12:02AM ; [facility] Note: Unchanged Esophageal Reflux Without Esophagitis 11/18/2015 LYLA COLEMAN MD Active Last Documented On 5 4:41PM ; [facility] Note: Unchanged Persistent Insomnia 11/18/2015 LYLA COLEMAN MD Active Last Documented On 5 4:41PM ; [facility] Note: Unchanged Familial (Benign Essential) Tremor 06/19/2013 Guille COLEMAN MD Active Last Documented On 4 10:00AM ; [facility] Note: Unchanged Palpitations 09/05/2012 MARLYS VILLAGOMEZ MD Ac tive Last Documented On 2 10:21AM ; [facility] Note: Unchanged Restless Legs Syndrome 09/05/2012 MARLYS VILLAVICENCIO MD Active Last Documented On 2 10:21AM ; [facility] Note: Unchanged Plan of Treatment - Home exercises - Last Documented On 04/07/2024 9:39AM ; [facility] I discussed with Janeth that her MRI [...] - Last Documented On 04/07/2024 9:39AM ; [facility] Instructions to patient Intervention and counseling on cessation of tobacco use Last Documented On 4 8:48AM ; [facility] Education and Decision Aids were provided during visit for: Patient education about orth opedic activities Last Documented On 4 9:18AM ; [facility] Assessments Includes: Assessments from this encounter Findings - [M17.9 - Osteoarthritis of knee, unspecified] Osteoarthritis of knee -right - Last Documented On 04/07/2024 9:39AM ; [facility] - [M17.11 - Unilateral primary osteoarthritis, right knee] Osteoarthritis of right knee - Last Documented On 04/07/2024 9:39AM ; [facility] - [M71.21 - Synovial cyst of popliteal space [Moseley], right knee] Synovial cyst of popliteal space -right - Last Documented On 04/07/2024 9:39AM ; [facility] - [M71.21 - Synovial cyst of popliteal space [Moseley], right knee] Synovial cyst of right popliteal space - Last Documented On 04/07/2024 9:39AM ; [facility] Instructions Includes: Instructions from this encounter Instructions to patient Intervention and counseling on cessation of tobacco use Last Documented On 4 8:48AM ; [facility] Education and Decision Aids were provided during visit for: Patient education about orth opedic activities Last Documented On 4 9:18AM ; [facility] Medical Equipment - Implanted Devices Includes: Current Devices No Medical Equipment Recorded Medications Includes: Medications discussed during this encounter and other current Medications Current Medications (continue as prescribed) Rosuvastatin Calcium 10 MG Oral Tablet 05/09/2024 Provider: LYLA COLEMAN MD Diagnosis: Pure hypercholes terolemia, unspecified TAKE 1 TABLET BY MOUTH AT BEDTIME Last Documented On 05/09/2024 1:18PM By HOLLIS COLEMAN MD ; [facility] traMADol HCl 50 MG Oral Tablet 03/19/2024 Provider: ARTEMIO Bolanos Diagnosis: Pain in right kn ee One tablet four times a day Last Documented On 4 1:25PM By Artemio Vincent PA-C ; [facility] Albuterol-Budesonide 90-80 MCG/ACT Inhalation Aerosol 02/26/2024 Provider: Diagnosis: 2 puffs every 6 hrs PRN Last Documented On 02/26/2024 4:12PM By Bartolo DEL ANGEL ; [facility] Bisacodyl 5 MG Oral Tablet Delayed Release 02/26/2024 Provider: Diagnosis: 2 tabs Once a day PRN Last Documented On 02/26/2024 4:12PM By Bartolo DEL ANGEL ; [facility] Esomeprazole Magnesium 20 MG Oral Capsule Delayed Release 02/15/2024 Provider: LYLA SHAFFER MD Diagnosis: Gastro-esophagea l reflux disease without esophagitis Take 1 capsule by mouth once daily Last Documented On 02/15/2024 12:20AM By HOLLIS COLEMAN MD ; [facility] Furosemide 20 MG Oral Tablet 02/01/2024 Provider: LYLA COLEMAN MD Diagnosis: Localized edema TAKE 1/2 (ONE-HALF) TABLET B Y MOUTH ONCE DAILY IN THE MORNING Last Documented On 02/01/2024 9:42AM By HOLLIS COLEMAN MD ; [facility] Propranolol HCl ER 60 MG Ora l Capsule Extended Release 24 Hour 01/22/2024 Provider: LYLA COLEMAN MD Diagnosis: Take 1 capsule by mouth twice daily Last Documented On 01/22/2024 9:02PM By HOLLIS COLEMAN MD ; [facility] clonazePAM 1 MG Oral Tablet 2024 Provider: LYLA COLEMAN MD Diagnosis: Insomnia, unspec ified TAKE 1 TABLET BY MOUTH AT BEDTIME Last Documented On 2024 10:26PM By HOLLIS COLEMAN MD ; [facility] Citalopram Hydrobromide 20 M G Oral Tablet 11/03/2023 Provider: LYLA COLEMAN MD Diagnosis: Adjustment disor iliana with anxiety Take 1 tablet by mouth once daily Last Documented On 11/03/2023 8:04PM By HOLLIS COLEMAN MD ; [facility] Trelegy Ellipta 200-62.5-25 MCG/ACT Inhalation Aerosol Powder Breath Activated 09/15/2022 Provider: LYLA COLEMAN MD Diagnosis: 1 puff qd Last Documented On 09/15/2022 9:30AM By Ivania DEL ANGEL ; [facility] Fish Oil 1000 MG Oral Capsule 09/17/2020 Provide r: Diagnosis: Last Documented On 09/17/2020 8:34AM By Pamella Coker LPN ; [facility] Primidone 250 MG Oral Tablet 03/17/2020 Provider: Diagnosis: Last Documented On 03/17/2020 8:28AM By Viviane DEL ANGEL ; [facility] Womens Multivitamin Plus OR TABS 05/24/2012 Provider : MARLYS VILLAGOMEZ MD Diagnosis: OTC Last Documented On 05/24/2012 11:10AM By Azucena Ramos LPN ; [facility] Past Medications on file predniSONE 10 MG Oral Tablet 03/10/2024 - 03/22/2024 Provider: LYLA COLEMAN MD Diagnosis: Synovial cyst of popliteal space [Moseley], right knee as directed 6 tabs day 1-34 tabs day 4-62 tabs day 7-91 tab day 10-12then stop Last Documented On 03/10/2024 4:37PM By HOLLIS COLEMAN MD ; [facility] predniSONE 10 MG Oral Tablet 02/01/2024 - 02/11/2024 Provider: LYLA COLEMAN MD Diagnosis: Chronic obstruct kenna pulmonary disease, unspecified 6 TABS DAY 1-25 TABS DAY 3-4 4 TABS DAY 5-63 TABS DAY 7-82 TABS DAY 91 TAB DAY 10 THEN STOP Last Documented On 02/01/2024 9:42AM By HOLLIS COLEMAN MD ; [facility] Medications Administered Includes: Administered Medications from this encounter No Administered Medications Recorded Vital Signs Includes: Vital Signs from this encounter Vital Name 04/07/2024 08:49A Blood Pressure Sitting (mmHg) 118/62 Height (in) 65 Last Documented: On 04/07/2024 8:49AM ; [facility] Results Includes: Results discussed during this encounter [...] 18 04/07/2024 Last Documented On 9:39AM ; [facility] Number of times used recreat ional drug/ prescription drug for nonmedical reason. 12/21/2023 Last Documented On 4 8:48AM ; [facility] Marital history Wilder 06/15/2022 Last Documented On 4 8:48AM ; [facility] Drinking in moderation (2 drinks/day or fewer) 03/24/2021 Last Documented On 4 8:48AM ; [facility] Sexually active 03/24/2021 Last Documented On 4 8:48AM ; [facility] Sexually active with 1 partners in the l ast year 03/24/2021 Last Documented On 4 8:48AM ; [facility] Smoking Status Unknown Procedures and Surgical History Includes: Procedures from this encounter Procedures Code Diagnosis Performing Provider Service Location Service Date CLINIC FACILITY FEE (Signi/Sep Eval & Man) G0463 Synovial cyst of popliteal space [Moesley], right knee KAITLIN ACOSTA DO [facility] 04/07/2024 Last Documented On 4 9:20AM ; [facility] Previously treated with Corticosteroid I njections-which didn't help Last Documented On 4 9:07AM ; [facility] review of prior records Last Documented On 4 9:18AM ; [facility] intervention and counseling on cessation of toba accountant property use 4000F Last Documented On 4 8:48AM ; [facility] use of tobacco assessment performed 1000F Last Documented On 4 8:48AM ; [facility] patient screened for future fall risk: documentation of any fall with injury in past year 1100F Last Documented On 4 8:48AM ; [facility] x-ray of foot was performed -right Last Documented On 4 9:19AM ; [facility] reviewed x-ray of foot -right Last Documented On 4 9:19AM ; [facility] reviewed an MRI of the right knee 25835 Last Documented On 4 9:06AM ; [facility] intrasubstance degeneration of the media l meniscus Last Documented On 4 9:06AM ; [facility] MRI of thr right knee is [...] seen Last Documented On 4 9:33AM ; [facility] Surgical History Last Updated History of dilation and curettage 12/2019 and 05/31/20 03/24/2021 Last Documented On 4 8:48AM ; [facility] Surgical / procedural history D&C x 2 Last Documented On 4 8:48AM ; [facility] Surgical / procedural history Basal cell carcinoma of Nose excised 05/24/2012 Last Documented On 4 8:48AM ; [facility] Medical History Includes: Medical History addressed during [...] 03/01/2024 Last Documented On 4 8:48AM ; [facility] Previous hospitalizations 02/26/2024 Last Documented On 4 8:48AM ; [facility] Vaccine history 02/01/2024 Last Documented On 4 8:48AM ; [facility] LMP: hysterectomy 03/29/2023 Last Documented On 4 8:48AM ; [facility] Vaginal delivery 03/24/2021 Last Documented On 4 8:48AM ; [facility] 3 10/27/2019 Last Documented On 4 8:48AM ; [facility] Para 3 10/27/2019 Last Documented On 4 8:48AM ; [facility] History of cancer 05/24/2012 Last Documented On 4 8:48AM ; [facility] Surgery P.A.T 1973 ~PLMS 11/200203/21/20 12 Last Documented On 4 8:48AM ; [facility] Family History Includes: Family History addressed during this encounter Description Last Updated heart disease PGF from heart at [facility] 03/24/2021 Last Documented On 4 8:48AM ; [facility] Family history of malignant female breas t neoplasm mom 03/24/2021 Last Documented On 4 8:48AM ; [facility] Maternal history of diabetes mellitus Last Documented On 4 8:48AM ; [facility] Paternal history of neurologic disorder PARKINSONS 02/10/2016 Last Documented On 4 8:48AM ; [facility] Family in poor health FATHER -PARKENSONS ~MOTHER -DIABETES 06/05/2014 Last Documented On 4 8:48AM ; [facility] Family history of alcoholism 05/24/2012 Last Documented On 4 8:48AM ; [facility] Family history of cancer 05/24/2012 Last Documented On 4 8:48AM ; [facility] Family history of diabetes mellitus 04/2012 Last Documented On 4 8:48AM ; [facility] Family history of heart disease 05/24/20 12 Last Documented On 4 8:48AM ; [facility] Review of Systems Includes: Review of Systems [...] Active Last Documented On 4 8:47AM ; [facility] Encounters Encounter Provider Location Date Check-In Time Check-Out Time Diagnosis FOLLOW UP KAITLIN G KOTH [facility] 04/07/20 24 8:42AM 9:44AM Osteoarthritis Knee,Synovial Cyst of Popliteal Space,Osteoarthrit is Knee Right,Synovial Cyst of Popliteal Space Right Insurance Includes: Active Insurance Policies Plan Name Member ID Group # Subscriber Relationship Effect kenna Dates 1 - [employer] [id number] [place] Self Clinical Notes Includes: Clinical Notes from this encounter * Progress note Date Encounter Last Documented by 04/07/2024 FOLLOW UP Last documented on 04/07/2024; 9:39 AM, Macrina DEL ANGEL; [facility] Active Problems & [...] followed up in the ER [facility]. She states she could not walk following this injection and that the ER had to drain her knee. She was then admitted for a week and then transferred [facility] a jail [facility]hab. She does state that today her [...] Past Medical/Surgical History Reported: Surgery P.A.T 1973 [facility] 11/2002. LMP: hysterectomy. Medical: Previous hospitalizations. Vaccine [...]
--- OUTSIDE RECORDS SUMMARY | 2024-11-23 18:06 | XMS_ITS | Clinical Summary ---
Author Organization [facility] Address [address] [place] [address] Care Team Providers Care Vocal Artist Name Role Phone Watson Perry MD Primary Care Provider [phone] Source Comments [facility],non-owned Affiliates and Associated Physician Practices is amultiple site organization consisting of ambulatory clinics and hospital sitesin [place], [place], [place] and [place]. This disclosure is being madepursuant to the Care Everywhere program and may not contain all information available regarding this patient. Last updated 18.[facility] Allergies Active Allergy Reactions Criticality Noted Date [...] tablet by mouth at bedtime 11/09/2019 Active [place]-3 Fatty Acids (FISH OIL PO) Take 1,000 [...] Recently Relevant to Health Maintenance Care Teams Vocal Artist Relationship Specialty Start Date End Date Watson Perry MD [address] [place] [phone] PCP - General 12/03/19
--- OUTSIDE RECORDS SUMMARY | 2024-11-23 18:06 | XMS_ITS | Encounter Summary ---
Author Organization [facility] Address [address] [facility] [place] [address] Care Team Providers Care Fast Food Manager Name Role Phone Watson Perry MD Primary Care Provider [phone] Reason for Visit * Reason Comments Post-Op SURG 05/31 Encounter Details Date Type Department Care Team (Late st Contact Info) Description 06/10/2020 10:50 AM CDT Office Visit [facility] Obstetrics Gynecology and Women's Health [address] [place] [address] Kelley Sanford MD [address] [phone] S/P dilation and curettage (Primary Dx) Social [...] Sanford MD - 06/10/2020 11:09 AM CDT [facility] Gynecologic Oncology Established Patient Visit Date [...] for patient to resume care with benign back tender pulp drier. Will of course be on retainer should any issues arise in the future I have spent 20 minutes with the patient of which >50% was spent in counseling. Kelley Sanford MD Hatchery Laborer of Gynecologic Oncology Dept of Obstetrics, Gynecology, and Women's Health 06/10/2020 11:09 AM documented in this encounter Plan of Treatment Not on file documented as of this encounter Visit Diagnoses Diagnosis S/P dilation and curettage- Primary Other postprocedural status documented in this encounter Care Teams Fast Food Manager Relationship Specialty Start Date End Date Watson Perry MD [address] [place] [phone] PCP - General 12/03/19 documented as of this encounter
--- OUTSIDE RECORDS SUMMARY | 2024-11-23 18:06 | XMS_ITS | Encounter Summary ---
Author Organization [facility] Address [address] [facility] [place] [address] Care Team Providers Care Circular Gang Saw Operator Name Role Phone Watson Perry MD Primary Care Provider [phone] Reason for Visit * Reason Onset Date Comments Appointment 06/06/2021 Encounter Details Date Type Department Care Team (Late st Contact Info) Description 06/06/2021 Telephone [facility] Obstetrics Gynecology and Women's Health [address] [place] [address] Kelley Sanford MD [address] [facility] [address] [place], [place] [phone] Appointment Social History Tobacco Use Types Packs/Day [...] spoke with nurse she was on medication [phone] documented in this encounter Plan of Treatment Not on file documented as of this encounter Visit Diagnoses Not on filedocumented in this encounter Care Teams Circular Gang Saw Operator Relationship Specialty Start Date End Date Watson Perry MD [address] [place] [phone] PCP - General 12/03/19 documented as of this encounter
--- OUTSIDE RECORDS SUMMARY | 2024-11-23 18:06 | XMS_ITS | Encounter Summary ---
Author Organization [facility] Address [address] [facility] [place] [address] Care Team Providers Care Tip Tester Name Role Phone Watson Perry MD Primary Care Provider [phone] Reason for Visit * Reason Onset Date Comments Surgical Follow-up 06/02/2021 Encounter Details Date Type Department Care Team (Late st Contact Info) Description 06/02/2021 Telephone [facility] Obstetrics Gynecology and Women's Health [address] [place] [address] Kelley Sanford MD [address] [phone] Surgical Follow-up Social History Tobacco Use Types [...] Per Dr Grabosch- Patient to return [place] [facility] [place] Sunday, 06/06 for a voiding trial. Appt 06/06 @ 10am Encouraged patient to increase fluids Patient verbalized understanding * Telephone Encounter - Fadia Dejesus - 06/02/2021 1:09 PM CDT Pt called states she is having problems urinating after surgery yesterday CB# [phone] documented in this encounter Plan of Treatment Not on file documented as of this encounter Visit Diagnoses Not on filedocumented in this encounter Care Teams Tip Tester Relationship Specialty Start Date End Date Watson Perry MD [address] [place] [phone] PCP - General 12/03/19 documented as of this encounter
--- OUTSIDE RECORDS SUMMARY | 2024-11-23 18:06 | XMS_ITS | Encounter Summary ---
Author Organization [facility] Address [address] [facility] [place] [address] Care Team Providers Care Ticket Sales Agent Name Role Phone Watson Perry MD Primary Care Provider [phone] Encounter Details Date Type Department Care Team [...] on filedocumented in this encounter Care Teams Ticket Sales Agent Relationship Specialty Start Date End Date Watson Perry MD [address] [place] [phone] PCP - General 12/03/19 documented as of this encounter
--- OUTSIDE RECORDS SUMMARY | 2024-11-23 18:06 | XMS_ITS | Encounter Summary ---
Author Organization [facility] Address [address] [facility] [place] [address] Care Team Providers Care Pupil Personnel Services Director Name Role Phone Watson Perry MD Primary Care Provider [phone] Reason for Visit * Reason Comments Post-Op surg 06/01 Encounter Details Date Type Department Care Team (Late st Contact Info) Description 06/28/2021 10:50 AM CDT Office Visit [facility] Obstetrics Gynecology and Women's Health [address] [place] [address] Kelley Sanford MD [address] [facility] [address] [place], [place] [phone] S/P hysterectomy with oophorectomy (Primary Dx) Social [...] Sanford MD - 06/28/2021 10:29 AM CDT [facility] Gynecologic Oncology Established Patient Visit Date of [...] endometrium and ultimately decided for hyst. S/p [facility] 06/01/21 with [facility]. Patient reports that [...] copy given May resume care with benign privacy officer Restrictions to 6 weeks post op I have spent 20 minutes with the patient of which >50% was spent in counseling. Kelley Sanford MD Mechanic Welder Truck Driver of Gynecologic Oncology Dept of Obstetrics, Gynecology, and Women's Health 06/28/2021 10:30 AM documented in this encounter Plan of Treatment Not on file documented as of this encounter Visit Diagnoses Diagnosis S/P hysterectomy with oophorectomy- Primary Acquired absence of both cervix and uterus documented in this encounter Care Teams Pupil Personnel Services Director Relationship Specialty Start Date End Date Watson Perry MD [address] [place] [phone] PCP - General 12/03/19 documented as of this encounter
--- OUTSIDE RECORDS SUMMARY | 2024-11-23 18:06 | XMS_ITS | Encounter Summary ---
Author Organization [facility] Address [address] [facility] [place] [address] Care Team Providers Care Women'S Lacrosse Coach Name Role Phone Watson Perry MD Primary Care Provider [phone] Reason for Referral * Radiology Services (Routine) - Closed Specialty Diagnoses / Procedures Referred By Contac t Referred To Contact Nuclear Medicine Diagnoses Idiopathic Parkinson's disease (HCC) Procedures NM BRAIN IMAGING KIZZY SCAN Kody Allen MD [address] [place] [address] [place] [address] [facility] Nuclear Medicine [address] [place] [phone] Referral ID Status Reason Start Date Expiration Date Visits Re quested Visits Authorized [id number] Closed 04/16/2024 04/16/2025 1 1 Reason for Visit * Reason Comments Establish Care Tremors Encounter Details Date Type Department Care Team (Late st Contact Info) Description 04/16/2024 2:00 PM CDT Office Visit [facility] - Neurology [address] [place] [address], [place] [address] Kody Allen MD [address] [place] [address] [address] [place] [address] Tremor, essential (Primary Dx); Idiopathic [...] for tremors since 2018 and referred to [facility] for DBS evaluation She reports activity related [...] were answered. Signed Electronically Kody Jones MD Eligibility Examiner of Neurology I personally spent 60 minutes [...] similar foods. May bring head at least detention to meet food. 3 = Markedly abnormal. [...] for tremors since 2018 and referred to [facility] for DBS evaluation She reports activity related [...] were answered. Signed Electronically Kody Jones MD Eligibility Examiner of Neurology I personally spent 60 minutes [...] similar foods. May bring head at least detention to meet food. 3 = Markedly abnormal. [...] Note Template Chief Complaint Patient presents with [facility] Tremors CC: DBS evaluation for essential Tremor, [facility] Patient is a 74 year-old F, right [...] 300 MG capsule multivitamin daily (THERAGRAN) tablet [place]-3 Fatty Acids (FISH OIL PO) pramipexole (MIRAPAX) [...] for tremors since 2018 and referred to [facility] for DBS evaluation She reports activity related [...] were answered. Signed Electronically Kody Jones MD Eligibility Examiner of Neurology I personally spent 60 minutes [...] similar foods. May bring head at least detention to meet food. 3 = Markedly abnormal. [...] syndromes. > Dictated by Waqas Garcia MD (Vice Chairman) 05/15/2024 12:25 PM Adri Mcclure DO have personally reviewed and interpreted this examination/study. > Interpreting Provider: Adri Van DO on 05/15/2024 2:24 PM Narrative 05/15/2024 2:24 PM CDT PROCEDURE: ??NM BRAIN IMAGING KIZZY SCAN, DATE/TIME OF EXAM: ??05/15/2024 9:45 AM, LOCATION ??[facility] INDICATION: G20.A1: Idiopathic Parkinson's disease COMPARISON: None. [...] SCAN, DATE/TIME OF EXAM: 49:45 AM, LOCATION [facility] INDICATION: G20.A1: Idiopathic Parkinson's disease COMPARISON: None. [...] syndromes. > Dictated by Waqas Garcia MD (Vice Chairman) 05/15/2024 12:25 PM Adri Mcclure DO have [...] agitans documented in this encounter Care Teams Women'S Lacrosse Coach Relationship Specialty Start Date End Date Watson Perry MD [address] [place] [phone] PCP - General 12/03/19 documented as of this encounter
--- OUTSIDE RECORDS SUMMARY | 2024-11-23 18:06 | XMS_ITS | Encounter Summary ---
Author Organization [facility] Address [address] [place] [address] Care Team Providers Care Supervisor Photoengraving Name Role Phone Watson Perry MD Primary Care Provider [phone] Reason for Visit * Auth/Cert Specialty Diagnoses / Procedures Referred By Contac t Referred To Contact Diagnoses Diagnosis unknown Diagnosis unknown [R69] Procedures LAPAROSCOPIC TOTAL HYSTERECTOMY (TLH) Referral ID Status Reason Start Date Expiration Date Visits Re quested Visits Authorized [id number] 1 1 Encounter Details Date Type Department Care Team (Latest Contact Info) Description 06/01/2021 8:02 AM CDT - 06/01/2021 4:30 PM CDT Hospital Encounter [facility] [address] [place] [address] Kelley Sanford MD [address] [facility] [address] [place] [address] Surgery General Discharge Disposition: Home or Self [...] (one) tablet by mouth daily with food [place]-3 Fatty Acids (FISH OIL PO) Take 1,000 [...] with neg HPV Mammogram 2017 Colonoscopy 01/17/19 SECRETARIAL STENOGRAPHER: see HPI SOC: Social History Socioeconomic History [...] Gatherings with Friends and Family: ??? Attends Faith Services: ??? Active Member of Clubs or [...] Tab by mouth daily with food. ??? [place]-3 Fatty Acids (FISH OIL PO) Take 1,000 [...] Sanford MD - 06/01/2021 9:06 AM CDT Tours Hostess Onc Attending Addendum I have personally seen and examined the patient and agree with the documentation by Dr. Perea. Planned procedure is total laparoscopic hysterectomy, bilateral salpingo- oophorectomy, possible staging, possible laparotomy. Kelley Sanford MD Photograph Printer of Gynecologic Oncology Dept of Obstetrics, Gynecology, and Women's Health 06/01/2021 9:05 AM documented in this encounter OR Notes * Brief Op Note - Watson Humphreys MD - 06/01/2021 10:20 AM CDT Brief Post-Operative Note 06/01/2021 Janeth Parker Date of Surgery: 06/01/2021 Surgeon(s) and Role: * Kelley Sanford MD - Primary * Watson Humphreys MD - Resident - Assisting Anesthesiologist: Ahsan Sung MD PAVER: Joie Boyer APRN-PAVER Pre-Op Diagnosis Codes: PMB Postoperative Diagnosis: same [...] hysterectomy, bilateral salpingo-oophorectomy Surgeon: Kelley Sanford MD Computer Mechanic: Watson Humphreys MD Type of anesthesia: General [...] entirety of the procedure. Kelley Sanford MD Photograph Printer of Gynecologic Oncology Dept of Obstetrics, Gynecology, [...] 06/01/2021 1:33 PM CDT [facility] [id number] 06/01/2021 1:33 PM CDT [facility] Blood, arterial ARTERIAL BLOOD SPECIMEN / Unknown 06/01/2021 1:06 PM CDT 06/01/2021 1:06 PM CDT Ahsan Sung MD LAB - BLOOD GASES ORDERABLES Performing Organization Address City/State/[facility] Co de Phone Number [facility] [address] [phone] * PATHOLOGY TISSUE EXAM (STL) (06/01/2021 11:12 AM CDT) Case Report Surgical Pathology Report ? Case: [id number] ? Authorizing Provider: ??Kelley Sanford MD ?Collected: ? 06/01/2021 11:12 AM ? Ordering Location: ? [facility] ? Received: ?06/01/2021 11:16 AM ? Pathologist: ? Devan Palacios MD ? Specimen: ?Uterus w Cervix, uterus,cervix, bilateral tubes and ovaries ? 06/06/2021 8:39 AM T [facility] Final Diagnosis Cervix uteri: No significant histopathologic changes. 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 Adenomyosis. Leiomyoma. Fallopian tube right: Benign paratubal cyst. Ovary, right: Fibroma Hilar nodule. Fallopian tube, left: Benign paratubal cyst. Ovary, left: Hilar nodule. 06/06/2021 8:39 AM [facility] Gross Description The requisition [...] in diameter. Sectioning shows unremarkable cut surfaces. Clinical Education Manager sections submitted as follows: A1-frozen section control, endomyometrium, A2-anterior cervix, A3-posterior cervix, C1-K73-cooroqdb endomyometrium entirely, from lower uterine segment to fundus, Q00-K72-oeoexohda endomyometrium entirely from lower uterine segment to fundus, J82-jzhkjbldls mass and hemorrhagic myometrium, Z02-iofed ovary, K98-zmfwv fallopian tube, S37-jlsg ovary, L34-snjk tube. LJ Note: Per pathologist the endometrial cavity is submitted entirely. 06/06/2021 8:39 AM [facility] Microscopic Description Microscopic examination was performed. 06/06/2021 8:39 AM [facility] Disclaimer All histochemical and/or immunohistochemical results are interpreted with controls that demonstrate appropriate staining reactions before reporting results. Note on use of immunocytochemistry reagents: This test was developed and its performance characteristic determined by [facility], Department of Laboratory Medicine. It has [...] - PATHOLOGY/CY TOLOGY ORDERABLES Performing Organization Address City/[facility] Co de Phone Number [facility] [address] [place] [address] * BLOOD TYPE VERIFICATION (06/01/2021 10:25 AM CDT) ABO Rh A POS 06/01/2021 10:55 AM CDT [facility] Blood Bank BLOOD SPECIMEN / Unknown Lab Venipuncture / Unknown 06/01/2021 10:25 AM CDT 06/01/2021 10:25 AM CDT Kelley Sanford MD LAB - BLOOD BANK O RDERABLES Performing Organization Address City/[facility]/ZIP Co de Phone Number [facility] [address] [place] [address] * TYPE + SCREEN PANEL (06/01/2021 9:24 [...] MD LAB - BLOOD BANK O RAVI [facility] LAB [address] [place] [address], [facility] [phone] * (ABNORMAL) COMPREHENSIVE METABOLIC PANEL (06/01/2021 9:24 AM CDT) [facility] Signature Glucose 90 70 - 105 mg/dL 06/01/2021 10:10 AM CDT [facility] Sodium 137 136 - 145 mmol/L 06/01/2021 10:10 AM CDT [facility] Potassium 4.2 3.5 - 5.1 mmol/L 06/01/2021 10:10 AM CDT [facility] Chloride 100 98 - 107 mmol/L 06/01/2021 10:10 AM [facility] CO2 32(H) 23 - 31 mmol/L 06/01/2021 10:10 AM CDT [facility] Calcium 9.9 8.4 - 10.4 mg/dL 06/01/2021 10:10 AM [facility] Anion Gap 5(L) 8 - 18 mmol/L 06/01/2021 10:10 AM CDT [facility] BUN 11 9.8 - 20.1 mg/dL 06/01/2021 10:10 AM CDT [facility] Creatinine 0.69 0.57 - 1.11 mg/dL 06/01/2021 10:10 AM [facility] Alkaline Phosphatase 59 40 - 150 U/L 06/01/2021 10:10 AM CDT [facility] ALT 17 0 - 61 U/L 06/01/2021 10:10 AM CDT [facility] AST 19 5 - 34 U/L 06/01/2021 10:10 AM CDT [facility] Protein Total 6.6 6.4 - 8.3 gm/dL 06/01/2021 10:10 AM CDT [facility] Albumin 3.9 3.2 - 4.6 gm/dL 06/01/2021 10:10 AM CDT [facility] Bilirubin Total 0.5 0.2 - 1.2 mg/dL 06/01/2021 10:10 AM CDT [facility] eGFR by MDRD >60 >60 mL/min/1.7 3m2 06/01/2021 10:10 AM CDT [facility] eGFR by MDRD >60 >60 mL/min/1.7 3m2 06/01/2021 10:10 AM CDT [facility] Blood BLOOD SPECIMEN / Unknown Venipuncture / Unknown 06/01/2021 9:24 AM CDT 06/01/2021 9:35 AM CDT Kelley Sanford MD LAB - CHEMISTRY OR DERABLES [facility] [address] [place] [address] * (ABNORMAL) CBC W AUTO [...] HEMATOLOGY O RDERABLES [facility] [address] [place] [address] documented in this encounter Visit Diagnoses Diagnosis [...] ($ Given - Prov ider: Joie Boyer, DEVIL DOG-PAVER) heparin injection 5,000 Units (COMPLETED) 5,000 Units, [...] ($ Given - Prov ider: Joie Boyer, DEVIL DOG-PAVER) morphine CR 12hr (MS Contin) tablet 30 [...] [id number] (Rate Change - Provider: Joie Boyer APRN-PAVER) PRN Medication Order 05/30/2021 05/31/2021 06/01/2021 acetaminophen [...] documented in this encounter Care Teams Supervisor Photoengraving Relationship Specialty Start Date End Date Watson Perry MD [address] [place] [phone] PCP - General 12/03/19 documented as of this encounter
--- OUTSIDE RECORDS SUMMARY | 2024-11-23 18:06 | XMS_ITS | Encounter Summary ---
Author Organization [facility] Address [address] [facility] [place] [address] Care Team Providers Care Firestopper Technician Name Role Phone Watson Perry MD Primary Care Provider [phone] Encounter Details Date Type Department Care Team [...] on filedocumented in this encounter Care Teams Firestopper Technician Relationship Specialty Start Date End Date Watson Perry MD [address] [place] [phone] PCP - General 12/03/19 documented as of this encounter
--- OUTSIDE RECORDS SUMMARY | 2024-11-23 18:06 | XMS_ITS | Encounter Summary ---
Author Organization [facility] Address [address] [facility] [place] [address] Care Team Providers Care Millinery Teacher Name Role Phone Watson Perry MD Primary Care Provider [phone] Reason for Referral * Radiology Services (Routine) - Closed Specialty Diagnoses / Procedures Referred By Contac t Referred To Contact Nuclear Medicine Diagnoses Idiopathic Parkinson's disease (HCC) Procedures NM BRAIN IMAGING KIZZY SCAN Kody Allen MD [facility] [phone] [facility] Nuclear Medicine [address] [place] [phone] Referral ID Status Reason Start Date Expiration Date Visits Re quested Visits Authorized [id number] Closed 04/16/2024 04/16/2025 1 1 Reason for Visit * Radiology Services (Routine) - Closed Specialty Diagnoses / Procedures Referred By Contac t Referred To Contact Nuclear Medicine Diagnoses Idiopathic Parkinson's disease (HCC) Procedures NM BRAIN IMAGING KIZZY SCAN Kody Allen MD [address] [phone] [facility] Nuclear Medicine [address] [place] [phone] Referral ID Status Reason Start Date Expiration Date Visits Re quested Visits Authorized [id number] Closed 04/16/2024 04/16/2025 1 1 Encounter Details Date Type Department Care Team (Latest Contact Info) Description 05/15/2024 8:30 AM CDT - 05/15/2024 12:40 PM CDT Hospital Encounter [facility] NUCLEAR MEDICINE [address] [place] [phone] Kody Allen MD [address] [facility] [address] [facility] [place] [phone] Discharge Disposition: Home or Self Care Social [...] (one) tablet by mouth daily with food [place]-3 Fatty Acids (FISH OIL PO) Take 1,000 [...] syndromes. > Dictated by Waqas Garcia MD (Flagger) 05/15/2024 12:25 PM IAdri DO have personally reviewed and interpreted this examination/study. > Interpreting Provider: Adri Van DO on 05/15/2024 2:24 PM Narrative 05/15/2024 2:24 PM CDT PROCEDURE: ??NM BRAIN IMAGING KIZZY SCAN, DATE/TIME OF EXAM: ??05/15/2024 9:45 AM, LOCATION ??[facility] INDICATION: G20.A1: Idiopathic Parkinson's disease [...] DATE/TIME OF EXAM: 49:45 AM, LOCATION [facility] INDICATION: G20.A1: Idiopathic Parkinson's disease [...] syndromes. > Dictated by Waqas Garcia MD (Flagger) 05/15/2024 12:25 PM Adri Mcclure DO have [...] mg documented in this encounter Care Teams Millinery Teacher Relationship Specialty Start Date End Date Watson Perry MD [address] [place] [phone] PCP - General 12/03/19 documented as of this encounter
--- OUTSIDE RECORDS SUMMARY | 2024-11-23 18:06 | XMS_ITS | Encounter Summary ---
Author Organization [facility] Address [address] [facility] [place] [address] Care Team Providers Care Accounts Officer Name Role Phone Watson Perry MD Primary Care Provider [phone] Encounter Details Date Type Department Care Team (Late st Contact Info) Description 02/04/2021 Orders Only [facility] - COVID Vaccine [address] [place] [phone] Javy Dale MD [address] [place] [address] Need for vaccination Social History Tobacco Use [...] disease documented in this encounter Care Teams Accounts Officer Relationship Specialty Start Date End Date Watson Perry MD [address] [place] [phone] PCP - General 12/03/19 documented as of this encounter
--- OUTSIDE RECORDS SUMMARY | 2024-11-23 18:06 | XMS_ITS | Clinical Summary ---
Author Organization [facility] Address [address] [place] [address] Phone Care Team Providers Care Sugarcane Research Technician Name Role Phone LYLA COLEMAN MD Primary Care Provider [phone] Reason for Visit and Chief Complaint visit for: Right Knee Pain - The Chief Complaint is: C/O CONT EXCURIATING RT KNEE PAIN, HAD INJECTION 01/25/24 BUT STATES SHE HAD TO GO TO [facility] BECAUSE SHE COULDN WALK AND HAD THEM DRAIN HER KNEE, SHE THEN SPENT A WK INPATIENT AND ANOTHER WK IN [facility]ISON RE[facility] Problems Includes: Problems addressed during this encounter and other active Problems Current Visit Onset Date Resolved Date Provider Conditio n Status Joint Pain in the Right Knee 01/14/2024 ARTEMIO Bolanos Active Last Documented On 4 1:24PM ; [facility] History of Cancer, Nos 03/06/2013 LYLA GARG MD Inactive Last Documented On 4 9:56AM ; [facility] Note: Unchanged Reported Family History of Alcoholism 03/06/2013 LYLA COLEMAN MD Inactive Last Documented On 4 9:56AM ; [facility] Note: Unchanged Reported Family History of Cancer 03/06/2013 PARAS COLEMAN MD Inactive Last Documented On 4 9:56AM ; [facility] Note: Unchanged Past Visits Onset Date Resolved Date Provider Condition Status Pain in the Right Foot 04/07/2024 KAITLIN WILKINS DO Active Last Documented On 4 9:37AM ; [facility] Disorder of Muscle Weakness (Generalized) 02/26/2024 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 Active Last Documented On 4 9:46AM ; [facility] Synovial Cyst of Popliteal Spaces Bilateral 02/26/2024 IDAIRIS MANCUSO FN P-C Active Last Documented On 4 4:13PM ; [facility] Generalized Anxiety Disorder 10/25/2021 LYLA COLEMAN MD Active Last Documented On 1 2:02AM ; [facility] Note: Unchanged Osteoarthritis Localized Eun jian Right 1st Mtp Joint 04/15/2020 LYLA COLEMAN MD Active Last Documented On 0 2:51PM ; [facility] Note: Unchanged Actinic Keratosis 01/15/2018 LYLA COLEMAN MD Active Last Documented On 8 11:45PM ; [facility] Note: Unchanged Hypercholesterolemia 03/18/2017 LYLA COLEMAN MD Active Last Documented On 7 11:11PM ; [facility] Note: Unchanged Constipation Functional 03/20/2016 LYLA FROST MD Active Last Documented On 6 12:02AM ; [facility] Note: Unchanged Chronic Obstructive Pulmonar y Disease Moderate 03/20/2016 LYLA COLEMAN MD Active Last Documented On 6 12:02AM ; [facility] Note: Unchanged Nicotine Dependence in Remission 03/20/2016 HOLLIS COLEMAN MD Active Last Documented On 6 12:02AM ; [facility] Note: Unchanged Esophageal Reflux Without Esophagitis 11/18/2015 LYLA COLEMAN MD Active Last Documented On 5 4:41PM ; [facility] Note: Unchanged Persistent Insomnia 11/18/2015 LYLA COLEMAN MD Active Last Documented On 5 4:41PM ; [facility] Note: Unchanged Familial (Benign Essential) Tremor 06/19/2013 Guille COLEMAN MD Active Last Documented On 4 10:00AM ; [facility] Note: Unchanged Palpitations 09/05/2012 MARLYS VILLAGOMEZ MD Ac tive Last Documented On 2 10:21AM ; [facility] Note: Unchanged Restless Legs Syndrome 09/05/2012 MARLYS VILLAVICENCIO MD Active Last Documented On 2 10:21AM ; [facility] Note: Unchanged Plan of Treatment She describe some symptoms that radiate down throughout the entirety of the right lower leg but denies any groin or thigh discomfort. She denies any worsening symptoms if she laughs, coughs, sneezes or has a bowel movement. I do not think this is likely radicular in nature from the hip or the low back although some of her pain in the lower leg could be suspicious for that. Her pain is easily identifiable with palpation and direct physical exam. She has not responded to oral steroids or intra-articular steroids. Her MRI previously did show some myxoid degeneration of the meniscus which could represent a possible underlying tear which could be reason for her knee effusion. She could have recurrence in synovitis as well of the right knee. She is struggling with weight bearing. Will give her some tramadol to see if we can improve her pain control. I would like her to talk to Dr. Wilkins about her next options. Perhaps she may be able to get some benefit from it arthroscopy, but her MRI is not overly suggestive of acute meniscus tear but does not show much other pathology either. - Last Documented On 03/19/2024 1:31PM ; [facility] Instructions to patient Intervention and counseling on cessation of tobacco use Last Documented On 4 12:54PM ; [facility] Assessments Includes: Assessments from this encounter Findings - [M25.561 - Pain in right knee] Right knee joint pain - Last Documented On 03/19/2024 1:31PM ; [facility] Instructions Includes: Instructions from this encounter Instructions to patient Intervention and counseling on cessation of tobacco use Last Documented On 4 12:54PM ; [facility] Medical Equipment - Implanted Devices Includes: Current Devices No Medical Equipment Recorded Medications Includes: Medications discussed during this encounter and other current Medications New / Renewed during this visit ARTEMIO Bolanos on 03/19/2024 traMADol HCl 50 MG Oral Tablet Provider: ARTEMIO Bolanos 10 day supply: 40 tablet, 0 refills Diagnosis: Pain in right knee One tablet four times a day Pharmacy: [facility] - [address] [place] [address], [id number] - Last Documented On 1:25PM By Artemio Vincent PA-C ; [facility] Current Medications (continue as prescribed) Rosuvastatin Calcium 10 MG Oral Tablet 05/09/2024 Provider: LYLA COLEMAN MD Diagnosis: Pure hypercholes terolemia, unspecified TAKE 1 TABLET BY MOUTH AT BEDTIME Last Documented On 05/09/2024 1:18PM By HOLLIS COLMEAN MD ; [facility] Albuterol-Budesonide 90-80 MCG/ACT Inhalation Aerosol 02/26/2024 Provider: Diagnosis: 2 puffs every 6 hrs PRN Last Documented On 02/26/2024 4:12PM By Bartolo DEL ANGEL ; [facility] Bisacodyl 5 MG Oral Tablet Delayed Release 02/26/2024 Provider: Diagnosis: 2 tabs Once a day PRN Last Documented On 02/26/2024 4:12PM By Bartolo DEL ANGEL ; [facility] Esomeprazole Magnesium 20 MG Oral Capsule Delayed Release 02/15/2024 Provider: LYLA SHAFFER MD Diagnosis: Gastro-esophagea l reflux disease without esophagitis Take 1 capsule by mouth once daily Last Documented On 02/15/2024 12:20AM By HOLLIS COLEMAN MD ; [facility] Furosemide 20 MG Oral Tablet 02/01/2024 Provider: LYLA COLEMAN MD Diagnosis: Localized edema TAKE 1/2 (ONE-HALF) TABLET B Y MOUTH ONCE DAILY IN THE MORNING Last Documented On 02/01/2024 9:42AM By HOLLIS COLEMAN MD ; [facility] Propranolol HCl ER 60 MG Ora l Capsule Extended Release 24 Hour 01/22/2024 Provider: LYLA COLEMAN MD Diagnosis: Take 1 capsule by mouth twice daily Last Documented On 01/22/2024 9:02PM By HOLLIS COLEMAN MD ; [facility] clonazePAM 1 MG Oral Tablet 2024 Provider: LYLA COLEMAN MD Diagnosis: Insomnia, unspec ified TAKE 1 TABLET BY MOUTH AT BEDTIME Last Documented On 2024 10:26PM By HOLLIS COLEMAN MD ; [facility] Citalopram Hydrobromide 20 M G Oral Tablet 11/03/2023 Provider: LYLA COLEMAN MD Diagnosis: Adjustment disor iliana with anxiety Take 1 tablet by mouth once daily Last Documented On 11/03/2023 8:04PM By HOLLIS COLEMAN MD ; [facility] Trelegy Ellipta 200-62.5-25 MCG/ACT Inhalation Aerosol Powder Breath Activated 09/15/2022 Provider: LYLA COLEMAN MD Diagnosis: 1 puff qd Last Documented On 09/15/2022 9:30AM By Ivania DEL ANGEL ; [facility] Fish Oil 1000 MG Oral Capsule 09/17/2020 Provide r: Diagnosis: Last Documented On 09/17/2020 8:34AM By Pamella Coker LPN ; [facility] Primidone 250 MG Oral Tablet 03/17/2020 Provider: Diagnosis: Last Documented On 03/17/2020 8:28AM By Viviane DEL ANGEL ; [facility] Womens Multivitamin Plus OR TABS 05/24/2012 Provider : MARLYS VILLAGOMEZ MD Diagnosis: OTC Last Documented On 05/24/2012 11:10AM By Azucena Ramos LPN ; [facility] Past Medications on file predniSONE 10 MG Oral Tablet 03/10/2024 - 03/22/2024 Provider: LYLA COLEMAN MD Diagnosis: Synovial cyst of popliteal space [[place]ose[place]], right knee as directed 6 tabs day 1-34 tabs day 4-62 tabs day 7-91 tab day 10-12then stop Last Documented On 03/10/2024 4:37PM By HOLLIS COLEMAN MD ; [facility] predniSONE 10 MG Oral Tablet 02/01/2024 - 02/11/2024 Provider: LYLA COLEMAN MD Diagnosis: Chronic obstruct kenna pulmonary disease, unspecified 6 TABS DAY 1-25 TABS DAY 3-4 4 TABS DAY 5-63 TABS DAY 7-82 TABS DAY 91 TAB DAY 10 THEN STOP Last Documented On 02/01/2024 9:42AM By HOLLIS COLEMAN MD ; [facility] Medications Administered Includes: Administered Medications from this encounter No Administered Medications Recorded Vital Signs Includes: Vital Signs from this encounter Vital Name 03/19/2024 12:56P Blood Pressure Sitting (mmHg) 116/64 Height (in) 65 Pain Level 10 Last Documented: On 03/19/2024 12:59P M ; [facility] Results Includes: Results discussed during this encounter No Results Recorded For Specified Dates History of Present Illness Includes: History of Present Illness from this encounter HPI JANETH LAKE is a 74 year old female. - Allergy list reviewed - Medication list reviewed Janeth returns today in regards to her right knee. She continues to have significant right knee pain. She was provided with a right knee steroid injection at her last visit on January 24. She states that after that, she started having significant increase in right knee pain again that she describes being lateral on the right knee along the distal hamstring. She went to [facility] and states that she had her knee drained in the emergency room and then stayed in the hospital for one week. She states that they were providing her assistance getting in and out of bed. She then spent one week in the bounce back unit after hospital discharge. She was started on steroids by her primary care provider and is tapering off of that. As her steroid dose decreases, her pain is increasing. She denies any medial joint line discomfort. She denies any significant increase in swelling now but states that she has increased pain with bearing weight Social History Description Last Updated Not a current smoker Quit 05/15/22. Smoke r since age 20 04/07/2024 Last Documented On 4 12:54PM ; [facility] Tobacco non-user 02/01/2024 Last Documented On 4 12:54PM ; [facility] Number of times used recreat ional drug/ prescription drug for nonmedical reason. 12/21/2023 Last Documented On 4 12:54PM ; [facility] Former smoker 03/29/2023 Last Documented On 4 12:54PM ; [facility] Marital history Wilder 06/15/2022 Last Documented On 4 12:54PM ; [facility] Drinking in moderation (2 drinks/day or fewer) 03/24/2021 Last Documented On 4 12:54PM ; [facility] Sexually active 03/24/2021 Last Documented On 4 12:54PM ; [facility] Sexually active with 1 partners in the l ast year 03/24/2021 Last Documented On 4 12:54PM ; [facility] Smoking Status Unknown Procedures and Surgical History Includes: Procedures from this encounter Procedures Code Diagnosis Performing Provider Service Location Service Date CLINIC FACILITY FEE (Signi/Sep Eval & Man) G0463 Pain in right knee ARTEMIO Bolanos [facility] 03/19/2024 Last Documented On 4 10:36AM ; [facility] intervention and counseling on cessation of 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 entry level account 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 use 4000F Last Documented On 4 12:54PM ; [facility] use of tobacco assessment performed 1000F Last Documented On 4 12:54PM ; [facility] patient screened for future fall risk: documentation of any fall with injury in past year 1100F Last Documented On 4 12:54PM ; [facility] Surgical History Last Updated History of dilation and curettage 12/2019 and 05/31/20 03/24/2021 Last Documented On 4 12:54PM ; [facility] Surgical / procedural history D&C x 2 Last Documented On 4 12:54PM ; [facility] Surgical / procedural history Basal cell carcinoma of Nose excised 05/24/2012 Last Documented On 4 12:54PM ; [facility] Medical History Includes: Medical History addressed during [...] Spaces Bilateral 03/01/2024 Last Documented On 4 12:54PM ; [facility] Previous hospitalizations 02/26/2024 Last Documented On 4 12:54PM ; [facility] Vaccine history 02/01/2024 Last Documented On 4 12:54PM ; [facility] LMP: hysterectomy 03/29/2023 Last Documented On 4 12:54PM ; [facility] Vaginal delivery 03/24/2021 Last Documented On 4 12:54PM ; [facility] 3 10/27/2019 Last Documented On 4 12:54PM ; [facility] Para 3 10/27/2019 Last Documented On 4 12:54PM ; [facility] History of cancer 05/24/2012 Last Documented On 4 12:54PM ; [facility] Surgery P.A.T 1973 ~PLMS 11/200203/21/20 12 Last Documented On 4 12:54PM ; [facility] Family History Includes: Family History addressed during this encounter Description Last Updated heart disease PGF from heart at tack 03/24/2021 Last Documented On 4 12:54PM ; [facility] Family history of malignant female breas t neoplasm mom 03/24/2021 Last Documented On 4 12:54PM ; [facility] Maternal history of diabetes mellitus Last Documented On 4 12:54PM ; [facility] Paternal history of neurologic disorder PARKINSONS 02/10/2016 Last Documented On 4 12:54PM ; [facility] Family in poor health FATHER -PARKENSONS ~MOTHER -DIABETES 06/05/2014 Last Documented On 4 12:54PM ; [facility] Family history of alcoholism 05/24/2012 Last Documented On 4 12:54PM ; [facility] Family history of cancer 05/24/2012 Last Documented On 4 12:54PM ; [facility] Family history of diabetes mellitus 04/2012 Last Documented On 4 12:54PM ; [facility] Family history of heart disease 05/24/20 12 Last Documented On 4 12:54PM ; [facility] Review of Systems Includes: Review of Systems from this encounter Systemic: No fever and no chills. Hematologic: No easy bleeding and no tendency for easy bruising. Neurological: No ataxia. No sensory disturbances. Psychological: No fear of falling. Skin: No pruritus. No skin lesions. Past Medical: No fall in the past 6 months. Mental Status Includes: Mental Status from this encounter Description Oriented to time, place, and person Functional Status Includes: Functional Status from this encounter Description Ambulation required a walker Physical Exam Includes: Physical Exam from this encounter Allergies Includes: Active Allergies Substance Type Reaction Onset Date Resolved Date Statu s Ibuprofen Allergy 03/21/2012 Active Last Documented On 4 8:47AM ; [facility] Encounters Encounter Provider Location Date Check-In Time Check-Out Time Diagnosis ORTHO ESTABLISHED PATIENT ARTEMIO Bolanos [facility] 03/19/20 24 12:42PM 1:08PM Assessment of Joint Pain in the Right Knee Insurance Includes: Active Insurance Policies Plan Name Member ID Group # Subscriber Relationship Effect kenna Dates 1 - [employer] [id number] JANETH LAKE Self Clinical Notes Includes: Clinical Notes from this encounter * Progress note Date Encounter Last Documented by 03/19/2024 ORTHO ESTABLISHED PATIENT Last d ocumented on 03/19/2024; 1:31 PM, ARTEMIO Bolanos; [facility] Active Problems & Conditions [...] Localized Primary Right 1st Mtp Joint - R00.2 - Palpitations - G47.00 - Persistent Insomnia - G25.81 - Restless Legs Syndrome - Synovial Cyst of Popliteal Spaces Bilateral Chief Complaint The Chief Complaint is: C/O CONT EXCURIATING RT KNEE PAIN, HAD INJECTION 01/25/24 BUT STATES SHE HAD TO GO TO [facility] BECAUSE SHE COULDN WALK AND HAD THEM DRAIN HER KNEE, SHE THEN SPENT A [facility]K INPATIENT AND ANOTHER WK IN [facility]. Reason For Visit Visit for: Right Knee Pain. History of Present Illness JANETH LAKE is a 74 year old female. - Allergy list reviewed - Medication list reviewed Janeth returns today in regards to her right knee. She continues to have significant right knee pain. She was provided with a right knee steroid injection at her last visit on January 24. She states that after that, she started having significant increase in right knee pain again that she describes being lateral on the right knee along the distal hamstring. She went to [facility] and states that she had her knee drained in the emergency room and then stayed in the hospital for one week. She states that they were providing her assistance getting in and out of bed. She then spent one week in the bounce back unit after hospital discharge. She was started on steroids by her primary care provider and is tapering off of that. As her steroid dose decreases, her pain is increasing. She denies any medial joint line discomfort. She denies any significant increase in swelling now but states that she has increased pain with bearing weight Current Medication - Albuterol-Budesonide 90-80 MCG/ACT Inhalation [...] THE MORNING, 90 days, 1 refills - predniSONE 10 MG Oral Tablet as directed 6 tabs day 1-34 tabs day 4-62 tabs day 7-91 tab day 10-12then stop, 12 days, 0 refills - Primidone 250 MG Oral Tablet [...] Past Medical/Surgical History Reported: Surgery P.A.T 1973 [facility]NV 11/2002. LMP: hysterectomy. Medical: Previous hospitalizations. Vaccine [...] and curettage 12/2019 and 05/31/20 Social History Tobacco use: Not a current smoker Quit 05/15/22. Smoker since age 20. Former smoker. Alcohol: Drinking in moderation (2 drinks/day or [...] Diabetes mellitus Review Of Systems Systemic: No fever and no chills. Hematologic: No easy bleeding and no tendency for easy bruising. Neurological: No ataxia. No sensory disturbances. Psychological: No fear of falling. Skin: No pruritus. No skin lesions. Past Medical: No fall in the past 6 months. Physical Findings - Vitals taken 03/19/2024 12:56 pm BP-Sitting 116/64 mmHg Height 65 in Pain Level 10 Pain Level Note PAIN 15 OUT OF 10 General Appearance: - Well developed. - In no acute distress. Musculoskeletal System: Knee: Right Knee: - Examined. - Localized swelling. - Lateral aspect was tender on palpation. - Patella demonstrated no crepitus. - Medial aspect was not tender on palpation. - Medial collateral ligament was not tender on palpation. - Lateral collateral ligament was not tender on palpation. - No medial instability. - No lateral instability. Functional Exam: General/bilateral: - Ambulation required a walker. Neurological: - Oriented to time, place, and person. Gait And Stance: - A right-sided antalgic gait was observed. Skin: - Skin: - No ecchymosis on the right knee. - No skin lesions. - No purpura was seen. Injury / Incision Site: - Right knee showed no contusion. - Right knee showed no incision. She has discomfort with eccentric low to the hamstring with resisted passive extension. She also has increased pain along the distal biceps femoris hamstring to resisted knee flexion. She has no significant lateral joint line tenderness to palpation in the anterior aspect but does have some posterior lateral joint line discomfort today. There is +1 effusion noted. Right calf is nontender. Assessment - [M25.561 - Pain in right knee] Right knee joint pain Therapy - Intervention and counseling on cessation of tobacco use. Plan StartCited - Pain in right knee traMADol HCl 50 MG tablet One tablet four times a day, 10 days, 0 refills EndCited She describe some symptoms that radiate down throughout the entirety of the right lower leg but denies any groin or thigh discomfort. She denies any worsening symptoms if she laughs, coughs, sneezes or has a bowel movement. I do not think this is likely radicular in nature from the hip or the low back although some of her pain in the lower leg could be suspicious for that. Her pain is easily identifiable with palpation and direct physical exam. She has not responded to oral steroids or intra-articular steroids. Her MRI previously did show some myxoid degeneration of the meniscus which could represent a possible underlying tear which could be reason for her knee effusion. She could have recurrence in synovitis as well of the right knee. She is struggling with weight bearing. Will give her some tramadol to see if we can improve her pain control. I would like her to talk to Dr. Wilkins about her next options. Perhaps she may be able to get some benefit from it arthroscopy, but her MRI is not overly suggestive of acute meniscus tear but does not show much other pathology either. Practice Management Use of tobacco assessment performed and patient screened for future fall risk documentation of any fall with injury in past year. Health Reminders - Assess Need for CT Lung Screen satisfied 03/19/2024. - Assess Screening for Fall Risk satisfied 03/19/2024. - Assess Tobacco Use satisfied 03/19/2024.
--- OUTSIDE RECORDS SUMMARY | 2024-11-23 18:06 | XMS_ITS | Encounter Summary ---
Author Organization [facility] Address [address] [place] [address] Care Team Providers Care Carton Inspector Name Role Phone Watson Perry MD Primary Care Provider [phone] Reason for Visit * Auth/Cert Specialty Diagnoses / Procedures Referred By Contac t Referred To Contact Diagnoses Diagnosis unknown Diagnosis unknown [R69] Procedures LAPAROSCOPIC TOTAL HYSTERECTOMY (TLH) Referral ID Status Reason Start Date Expiration Date Visits Re quested Visits Authorized [id number] 1 1 Encounter Details Date Type Department Care Team (Late st Contact Info) Description 06/01/2021 9:57 AM CDT Anesthesia Event [facility] PERIOPERATIVE [address] [place] [address] Ahsan Sung MD [address] [place], [place] [id number] Dylan Herzog MD [address] [facility] [place], [place] [id number] Anesthesia Record Procedure Summary Procedure Name Responsible [...] Date: 06/01/21; Time : 1004; Placed By: GAYATHIR Hawk; Vent: easy mask; Induction: Modified Rapid [...] Boyer APRN-CRNA 06/01/21 1158 by Joie Boyer APRN-PHOTOCOMPOSING KEYBOARD OPERATOR Procedural Site (Incision) 06/01/21; 1020; Abdomen; Laparoscopic; [...] 20 min of re-intubation * Valentino Salcedo, BUSINESS SYSTEM MANAGER-PHOTOCOMPOSING KEYBOARD OPERATOR - 06/01/2021 8:56 AM CDT ANESTHESIA PREOPERATIVE [...] Tab by mouth daily with food. ??? [place]-3 Fatty Acids (FISH OIL PO) Take 1,000 [...] this encounter Procedure Notes * Joie Boyer, BUSINESS SYSTEM MANAGER-PHOTOCOMPOSING KEYBOARD OPERATOR - 06/01/2021 10:21 AM CDTAssociated Order(s): ETT Placement Endotracheal Tube Placement: Patient Location: OR. Intubation Event Date/Time: 06/01/2021 10:04 AM Procedure: intubation ([id number]). Procedure Section: Sedation: under general anesthesia. Indications [...] Primary: Kelley Sanford MD Resident - Assisting: Wtason Humphreys MD Preop Diagnosis: Pre-op Diagnois: * [...] 06/01/21; Time: 1003; Placed By: Joie Boyer APRN-PHOTOCOMPOSING KEYBOARD OPERATOR; Vent: easy mask; Induction: Modified Rapid Sequence; [...] Event Date/Time: ??06/01/2021 10:04 AM Procedure: intubation ([id number]). Procedure Section: ?? Sedation: under general anesthesia. [...] Staff Section ?? Anesthesia Provider: Joie Boyer APRN-PHOTOCOMPOSING KEYBOARD OPERATOR, Performed the procedure Provider #1: Ahsan Sung [...] mg documented in this encounter Care Teams Carton Inspector Relationship Specialty Start Date End Date Watson Perry MD [address] [place] [phone] PCP - General 12/03/19 documented as of this encounter
--- OUTSIDE RECORDS SUMMARY | 2024-11-23 18:06 | XMS_ITS | Encounter Summary ---
Author Organization [facility] Address [address] [facility] [place] [address] Care Team Providers Care Volcanology Professor Name Role Phone Watson Perry MD Primary Care Provider [phone] Reason for Visit * Radiology Services (Routine) - Closed Specialty Diagnoses / Procedures Referred By Contac t Referred To Contact Nuclear Medicine Diagnoses Idiopathic Parkinson's disease (HCC) Procedures NM BRAIN IMAGING KIZZY SCAN Kody Allen MD [address] [place] [address] [place] [address] [facility] Nuclear Medicine [address] [place] [phone] Referral ID Status Reason Start Date Expiration Date Visits Re quested Visits Authorized [id number] Closed 04/16/2024 04/16/2025 1 1 Encounter Details Date Type Department Care Team (Latest Contact Info) Description 05/15/2024 12:41 PM CDT - 05/15/2024 11:59 PM CDT Hospital Encounter [facility] NUCLEAR MEDICINE [address] [place] [phone] Kody Allen MD [address] [place] [address] [address] [place] [address] Discharge Disposition: Home or Self [...] (one) tablet by mouth daily with food Elba-3 Fatty Acids (FISH OIL PO) Take 1,000 [...] syndromes. > Dictated by Waqas Garcia MD (Graduate Nurse) 05/15/2024 12:25 PM Adri Mcclure DO have personally reviewed and interpreted this examination/study. > Interpreting Provider: Adri Van DO on 05/15/2024 2:24 PM Narrative 05/15/2024 2:24 PM CDT PROCEDURE: ??NM BRAIN IMAGING KIZZY SCAN, DATE/TIME OF EXAM: ??05/15/2024 9:45 AM, LOCATION ??[facility] INDICATION: G20.A1: Idiopathic Parkinson's disease [...] DATE/TIME OF EXAM: 49:45 AM, LOCATION [facility] INDICATION: G20.A1: Idiopathic Parkinson's disease [...] syndromes. > Dictated by Waqas Garcia MD (Graduate Nurse) 05/15/2024 12:25 PM IAdri DO have personally reviewed and interpreted this examination/study. > Interpreting Provider: Adri Van DO on 05/15/2024 2:24 PM Kody Jones MD NM ORDERABLES documented in this encounter Visit Diagnoses Not on filedocumented in this encounter Care Teams Volcanology Professor Relationship Specialty Start Date End Date Watson Perry MD [address] [place] [phone] PCP - General 12/03/19 documented as of this encounter
--- OUTSIDE RECORDS SUMMARY | 2024-11-23 18:06 | XMS_ITS ---
Care Plan - [facility] Created on: November 23, 2024 [place] : 1950 Sex: Female Author Organization [facility] Address [address] [place] [address] Phone Care Team Providers Care Axminster Weaver Name Role Phone VIRGINIA AGARWAL, LYLA Ruiz Primary Care Provider [phone]
--- OUTSIDE RECORDS SUMMARY | 2024-11-23 18:06 | XMS_ITS | Encounter Summary ---
Author Organization [facility] Address [address] [facility] [address] Care Team Providers Care Human Resources Executive Assistant Name Role Phone Watson Perry MD Primary Care Provider [phone] Reason for Visit * Auth/Cert Specialty Diagnoses / Procedures Referred By Contac t Referred To Contact Diagnoses Diagnosis unknown Diagnosis unknown [R69] Procedures LAPAROSCOPIC TOTAL HYSTERECTOMY (TLH) Referral ID Status Reason Start Date Expiration Date Visits Re quested Visits Authorized [id number] 1 1 Encounter Details Date Type Department Care Team (Late st Contact Info) Description 06/01/2021 10:30 AM CDT - 06/01/2021 1:30 PM CDT Surgery [facility] PERIOPERATIVE [address] [place] [address] Kelley Sanford MD [address] [address] TOTAL LAPAROSCOPIC HYSTERECTOMY, SALPINGO OOPHORECTOMY--BILATERA L, FROZEN SECTION Surgery Details Date/Time Status Location OR Service Patient Class Case Class Case Type Trauma Case? 06/01/2021 10:30 AM Posted [facility] MAIN OR OR 14 Gynecology Surgery [...] (one) tablet by mouth daily with food [place]-3 Fatty Acids (FISH OIL PO) Take 1,000 [...] with neg HPV Mammogram 2017 Colonoscopy 01/17/19 BONE CHAR OPERATOR: see HPI SOC: Social History Socioeconomic History [...] Gatherings with Friends and Family: ??? Attends Taoist Services: ??? Active Member of Clubs or [...] Tab by mouth daily with food. ??? [place]-3 Fatty Acids (FISH OIL PO) Take 1,000 [...] Sanford MD - 06/01/2021 9:06 AM CDT Ground Operations Crew Member Onc Attending Addendum I have personally seen and examined the patient and agree with the documentation by Dr. Perea. Planned procedure is total laparoscopic hysterectomy, bilateral salpingo- oophorectomy, possible staging, possible laparotomy. Kelley Sanford MD Pre Planning Advisor of Gynecologic Oncology Dept of Obstetrics, Gynecology, and Women's Health 06/01/2021 9:05 AM documented in this encounter OR Notes * Brief Op Note - Watson Humphreys MD - 06/01/2021 10:20 AM CDT Brief Post-Operative Note 06/01/2021 Janeth Parker Date of Surgery: 06/01/2021 Surgeon(s) and Role: * Kelley Sanford MD - Primary * Watson Humphreys MD - Resident - Assisting Anesthesiologist: Ahsan Sung MD ANIMAL HUSBANDRY PROFESSOR: Joie Boyer APRN-SARA Pre-Op Diagnosis Codes: PMB [...] hysterectomy, bilateral salpingo-oophorectomy Surgeon: Kelley Sanford MD Rotary Drill Rig Operator: Watson Humphreys MD Type of anesthesia: General [...] The fascia was tagged with 0-vicryl. A Moimn cannula was secured. The abdomen was insufflated [...] entirety of the procedure. Kelley Sanford MD Pre Planning Advisor of Gynecologic Oncology Dept of Obstetrics, Gynecology, [...] - 2.0 mmol/L 06/01/2021 1:33 PM CDT [facility] Comment:H O2 Saturation Arterial 94 90 - 100 % 06/01/2021 1:33 PM CDT [facility] Hemoglobin Arterial 15.6 12.0 - 15.6 gm/dL 06/01/2021 1:33 PM CDT [facility] Carboxyhemoglobin Arterial 3.1(H) 0.0 - 2.5 % 06/01/2021 1:33 PM CDT [facility] Comment:H Methemoglobin Arterial 0.5 0.0 - 2.0 % 06/01/2021 1:33 PM CDT [facility] Oxyhemoglobin Arterial 90 % 06/01/2021 1:33 PM CDT [facility] Mode SIMV/PS 06/01/2021 1:33 PM CDT [facility] Elandro's Test Positive 06/01/2021 1:33 PM CDT [facility] FI O2 30 % 06/01/2021 1:33 PM CDT [facility] Tidal Volume 400 mL 06/01/2021 1:33 PM CDT [facility] PEEP (cmH2O) 5.0 06/01/2021 1:33 PM CDT [facility] Pressure Support (cmH2O) 5 06/01/2021 1:33 PM CDT [facility] Respiratory Rate 10.0 06/01/20 21 1:33 PM CDT [facility] Sample Site L Radial 06/01/2021 1:33 PM CDT [facility] Sample Type Arterial 06/01/2021 1:33 PM CDT [facility] [place] [place] [id number] 06/01/2021 1:33 PM CDT [facility] Blood, arterial ARTERIAL BLOOD SPECIMEN / Unknown 06/01/2021 1:06 PM CDT 06/01/2021 1:06 PM CDT Ahsan Sung MD LAB - BLOOD GASES ORDERABLES [facility] [address] [phone] * PATHOLOGY TISSUE EXAM (STL) (06/01/2021 11:12 AM CDT) Case Report Surgical Pathology Report ? Case: [id number] ? Authorizing Provider: ??Kelley Sanford MD ?Collected: ? 06/01/2021 11:12 AM ? Ordering Location: ? [facility] ? Received: ?06/01/2021 11:16 AM ? Pathologist: ? Devan Palacios MD ? Specimen: ?Uterus w Cervix, uterus,cervix, bilateral tubes and ovaries ? 06/06/2021 8:39 AM CDT [facility] Final Diagnosis Cervix uteri: No significant histopathologic changes. 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 Adenomyosis. Leiomyoma. Fallopian tube right: Benign paratubal cyst. Ovary, right: Fibroma Hilar nodule. Fallopian tube, left: Benign paratubal cyst. Ovary, left: Hilar nodule. 06/06/2021 8:39 AM CDT [facility] Gross Description The requisition and [...] in diameter. Sectioning shows unremarkable cut surfaces. Waiter/Waitress Cafeteria sections submitted as follows: A1-frozen section control, endomyometrium, A2-anterior cervix, A3-posterior cervix, E2-G24-wywqgeoj endomyometrium entirely, from lower uterine segment to fundus, V13-K64-fsznbxnxn endomyometrium entirely from lower uterine segment to fundus, S82-npbpfujxzt mass and hemorrhagic myometrium, F87-hbhmj ovary, X37-vizoz fallopian tube, M37-cyrt ovary, H96-ytws tube. LJ Note: Per pathologist the endometrial cavity is submitted entirely. 06/06/2021 8:39 AM CDT [facility] Microscopic Description Microscopic examination was performed. 06/06/2021 8:39 AM CDT [facility] Disclaimer All histochemical and/or immunohistochemical results are interpreted with controls that demonstrate appropriate staining reactions before reporting results. Note on use of immunocytochemistry reagents: This test was developed and its performance characteristic determined by [facility], Department of Laboratory Medicine. It has [...] interpreted with caution. 06/06/2021 8:39 AM CDT [facility] Embedded Images 06/06/2021 8:39 AM CDT [facility] Pathology/Cytolo gy SPECIMEN FROM UTERINE CERVIX OBTAINED BY HYSTERECTOMY / Unknown 06/01/2021 11:12 AM CDT 06/01/2021 11:16 AM CDT Comment:Pre-op diagnosis: Diagnosis unknown [R69] Kelley Sanford MD LAB - PATHOLOGY/CY TOLOGY ORDERABLES Performing Organization Address City/[facility] Co de Phone Number [facility] [address] [place] [address] * BLOOD TYPE VERIFICATION (06/01/2021 10:25 AM CDT) ABO Rh A POS 06/01/2021 10:55 AM CDT [facility] Blood Bank BLOOD SPECIMEN / Unknown Lab Venipuncture / Unknown 06/01/2021 10:25 AM CDT 06/01/2021 10:25 AM CDT Kelley Sanford MD LAB - BLOOD BANK O RDERABLES Performing Organization Address City/[facility]/ZIP Co de Phone Number [facility] [address] [phone] * TYPE + SCREEN PANEL (06/01/2021 9:24 AM CDT) ABO Rh A POS 06/01/2021 10:16 AM CDT [facility] Comment:No history; collect retype. Antibody Screen NEG 10:16 AM CDT [facility] Blood Bank BLOOD SPECIMEN / Unknown Venipuncture / Unknown 06/01/2021 9:24 AM CDT 06/01/2021 9:36 AM CDT Kelley Sanford MD LAB - BLOOD BANK O ANAIERAFARTUN [facility] [address] [phone] * (ABNORMAL) COMPREHENSIVE METABOLIC PANEL (06/01/2021 9:24 AM CDT) Glucose 90 70 - 105 mg/dL 06/01/2021 10:10 AM T [facility] Sodium 137 136 - 145 mmol/L 06/01/2021 10:10 AM T [facility] Potassium 4.2 3.5 - 5.1 mmol/L 06/01/2021 10:10 AM [facility] Chloride 100 98 - 107 mmol/L 06/01/2021 10:10 AM [facility] CO2 32(H) 23 - 31 mmol/L 06/01/2021 10:10 AM [facility] Calcium 9.9 8.4 - 10.4 mg/dL 06/01/2021 10:10 AM [facility] Anion Gap 5(L) 8 - 18 mmol/L 06/01/2021 10:10 AM T [facility] BUN 11 9.8 - 20.1 mg/dL 06/01/2021 10:10 AM T [facility] Creatinine 0.69 0.57 - 1.11 mg/dL 06/01/2021 10:10 AM [facility] Alkaline Phosphatase 59 40 - 150 U/L 06/01/2021 10:10 AM [facility] ALT 17 0 - 61 U/L 06/01/2021 10:10 AM CDT [facility] AST 19 5 - 34 U/L 06/01/2021 10:10 AM CDT [facility] Protein Total 6.6 6.4 - 8.3 gm/dL 06/01/2021 10:10 AM CDT [facility] Albumin 3.9 3.2 - 4.6 gm/dL 06/01/2021 10:10 AM CDT [facility] Bilirubin Total 0.5 0.2 - 1.2 mg/dL 06/01/2021 10:10 AM CDT [facility] eGFR by MDRD >60 >60 mL/min/1.7 3m2 06/01/2021 10:10 AM CDT [facility] eGFR by MDRD >60 >60 mL/min/1.7 3m2 06/01/2021 10:10 AM CDT [facility] Blood BLOOD SPECIMEN / Unknown Venipuncture / Unknown 06/01/2021 9:24 AM CDT 06/01/2021 9:35 AM CDT Kelley Sanford MD LAB - CHEMISTRY OR DERABLES Performing Organization Address City/State/[facility] Co de Phone Number [facility] [address] [place] [address] * (ABNORMAL) CBC W AUTO DIFFERENTIAL (06/01/2021 9:24 AM CDT) WBC 6.3 4.4 - 10.7 x10E9/L 06/01/2021 9:39 AM CDT [facility] WBC Corrected 06/01/2021 9:39 AM CDT [facility] RBC 5.47(H) 3.80 - 5.20 x10E12/L 06/01/2021 9:39 AM CDT [facility] Hemoglobin 15.5 12.0 - 15.6 gm/dL 06/01/2021 9:39 AM CDT [facility] Hematocrit 50.1(H) 35.9 - 45.5 % 06/01/2021 9:39 AM CDT [facility] MCV 91.6 80.7 - 98.3 fl 06/01/2021 9:39 AM CDT [facility] MCH 28.3 26.7 - 34.0 pg 06/01/2021 9:39 AM CDT [facility] MCHC 30.9 30.8 - 35.9 gm/dL 06/01/2021 9:39 AM CDT [facility] Platelet Count 326 153 - 416 x10E9/L 06/01/2021 9:39 AM CDT [facility] RDW-CV 16.4(H) 12.1 - 14.9 % 06/01/2021 9:39 AM CDT [facility] MPV 8.6(L) 9.4 - 12.9 fl 06/01/2021 9:39 AM CDT [facility] Neutrophils % 47.8 44.0 - 73.0 % 06/01/2021 9:39 AM CDT [facility] Lymphocytes % 41.6 20.0 - 43.0 % 06/01/2021 9:39 AM CDT [facility] Monocytes % 6.8 5.0 - 13.0 % 06/01/2021 9:39 AM CDT [facility] Eosinophils % 2.5 0.0 - 6.0 % 06/01/2021 9:39 AM CDT [facility] Basophils % 1.1 0.0 - 2.0 % 06/01/2021 9:39 AM CDT [facility] Immature Granulocytes 0.2 0 - 1 % 06/01/2021 9:39 AM CDT [facility] Neutrophil Absolute 3.02 2.01 - 7.14 x10E9/L 06/01/2021 9:39 AM CDT [facility] Lymphocytes Absolute 2.63 1.07 - 3.94 x10E9/L 06/01/2021 9:39 AM CDT [facility] Monocytes Absolute 0.43 0.26 - 1.07 x10E9/L 06/01/2021 9:39 AM CDT [facility] Eosinophils Absolute 0.16 0 - 0.47 x10E9/L 06/01/2021 9:39 AM CDT [facility] Basophils Absolute 0.07 0 - 0.08 x10E9/L 06/01/2021 9:39 AM CDT [facility] Immature Granulocytes Absolute 0.01 0.00 - 0.06 x10E9/L 06/01/2021 9:39 AM CDT [facility] nRBC Auto 0 /100 WBC 06/01/2021 9:39 AM CDT [facility] Blood BLOOD SPECIMEN / Unknown Venipuncture / Unknown 06/01/2021 9:24 AM CDT 06/01/2021 9:35 AM CDT Kelley Sanford MD LAB - HEMATOLOGY O RDERABLES Performing Organization Address City/State/[facility] Co de Phone Number [facility] [address] [place] [address] documented in this encounter Visit Diagnoses Diagnosis [...] ($ Given - Prov ider: Joie Boyer, BOTTLING EQUIPMENT SALES REPRESENTATIVE-[facility]) heparin injection 5,000 Units (COMPLETED) 5,000 Units, [...] ($ Given - Prov ider: Joie Boyer, BOTTLING EQUIPMENT SALES REPRESENTATIVE-ANIMAL HUSBANDRY PROFESSOR) morphine CR 12hr (MS Contin) tablet 30 [...] [id number] (Rate Change - Provider: Joie Boyer APRN-ANIMAL HUSBANDRY PROFESSOR) PRN Medication Order 05/30/2021 05/31/2021 06/01/2021 acetaminophen [...] daily. documented in this encounter Care Teams Human Resources Executive Assistant Relationship Specialty Start Date End Date Watson Perry MD [address] [place] [phone] PCP - General 12/03/19 documented as of this encounter
--- OUTSIDE RECORDS SUMMARY | 2024-11-23 18:06 | XMS_ITS | Encounter Summary ---
Author Organization [facility] Address [address] [facility] [place] [address] Care Team Providers Care Good Humor Vendor Name Role Phone Watson Perry MD Primary Care Provider [phone] Reason for Visit * Reason Comments Follow-up Encounter Details Date Type Department Care Team (Late Contact Info) Description 04/28/2021 10:50 AM CDT Office Visit [facility] [address] [place] [address] Kelley Sanford MD [address] [phone] Postmenopausal bleeding (Primary Dx); Thickened endometrium; Left [...] Sanford MD - 04/28/2021 12:36 PM CDT [facility] Gynecologic Oncology Established Patient Visit Date of Service: 04/28/2021 Patient Name: Janeth Parker Chief Complaint: bleeding History of Present Illness: Janeth Parker [...] was spent in counseling. Kelley Sanford MD Kiln Loader of Gynecologic Oncology Dept of Obstetrics, Gynecology, and Women's Health 04/28/2021 12:36 PM documented in this encounter Plan of Treatment Not on file documented as of this encounter Visit Diagnoses Diagnosis Postmenopausal bleeding- Primary Thickened endometrium Nonspecific (abnormal) findings on radiological and other examination of genitourinary organs Left ovarian cyst Other and unspecified ovarian cyst documented in this encounter Care Teams Good Humor Vendor Relationship Specialty Start Date End Date Watson Perry MD [address] [place] [phone] PCP - General 12/03/19 documented as of this encounter
--- OUTSIDE RECORDS SUMMARY | 2024-11-23 18:07 | XMS_ITS | Encounter Summary ---
Author Organization [facility] Address [address] [facility] [address] Care Team Providers Care Inspector Filters Name Role Phone Watson Perry MD Primary Care Provider [phone] Reason for Visit * Auth/Cert Specialty Diagnoses / Procedures Referred By Contac t Referred To Contact Diagnoses Diagnosis unknown Diagnosis unknown [R69] Procedures HYSTEROSCOPY WITH DILATION & CURETTAGE Referral ID Status Reason Start Date Expiration Date Visits Re quested Visits Authorized [id number] 1 1 Encounter Details Date Type Department Care Team (Late st Contact Info) Description 05/31/2020 11:00 AM CDT - 05/31/2020 12:30 PM CDT Surgery [facility] PERIOPERATIVE [address] [place] [address] Kelley Sanford MD [address] [place] [address] [phone] HYSTEROSCOPY WITH DILATION & CURETTAGE Surgery Details Date/Time Status Location OR Service Patient Class Case Class Case Type Trauma Case? 05/31/2020 11:00 AM Posted [facility] MAIN OR OR 14 Gynecology Surgery Day [...] (one) tablet by mouth daily with food [place]-3 Fatty Acids (FISH OIL PO) Take 1,000 [...] with neg HPV Mammogram 2017 Colonoscopy 01/17/19 LOG STACKER OPERATOR: See above SOC: Social History Socioeconomic History [...] file Gets together: Not on file Attends judaism service: Not on file Active member of [...] Tab by mouth daily with food. ??? [place]-3 Fatty Acids (FISH OIL PO) Take 1,000 [...] results for input(s): ABORH in the last 49271 hours. No results for input(s): WBC, HGB, HCT, PLTCOUNT in the last 25341 hours. No results for input(s): SODIUM, POTASSIUM, CHLORIDE, CO2, BUN, CREATININE, GLUCOSE, CALCIUM in thelast 36705 hours. Assessment/Plan: 70 year old with: H/o [...] Sanford MD - 05/31/2020 9:59 AM CDT Keeper Head Onc Attending Addendum I have personally seen and examined the patient and agree with the documentation by Dr. Allen. Planned procedure is hysteroscopy, dilation and curettage. Kelley Sanford MD Cardiovascular Or Nurse of Gynecologic Oncology Dept of Obstetrics, Gynecology, [...] dilation and curettage Surgeon: Kelley Sanford MD Dice Spotter: Loraine Chao MD Type of anesthesia: MAC [...] 05/31/2020 11:22 AM * Operative - Kelley Safnord MD - 05/31/2020 10:53 AM CDT Gynecologic Oncology Operative Note 05/31/2020 2:18 PM Preoperative Diagnosis: postmenopausal bleeding, history of simple hyperplasia Postoperative Diagnosis: same Procedure: hysteroscopy, dilation and curettage Surgeon: Kelley Sanford MD Dice Spotter: Loraine Chao MD Type of anesthesia: MAC [...] entirety of the procedure. Kelley Sanford MD Cardiovascular Or Nurse of Gynecologic Oncology Dept of Obstetrics, Gynecology, and Women's Health 05/31/2020 2:18 PM documented in this encounter Plan of Treatment Not on file documented as of this encounter Procedures Procedure Name Priority Date/Time Associated Diagnosis Comments CARDIAC RHYTHM STRIP ORDER 06/03/2020 1:16 PM CDT PATHOLOGY TISSUE EXAM (STL) Routine 05/31/2020 11:05 AM CDT Diagnosis unknown RI HYSTEROSCOPY,W/ENDO BX 05/31/2020 10:13 AM CDT Diagnosis unknown documented in this encounter Results * CARDIAC RHYTHM STRIP ORDER (06/03/2020 1:16 PM CDT) Narrative 06/03/2020 1:16 PM CDT Ordered by an unspecified provider. Scanned Document CARDIAC SERVICES ORD ERABLES * PATHOLOGY TISSUE EXAM (STL) (05/31/2020 11:05 AM CDT) Case Report Surgical Pathology Report ? Case: [id number] ? Authorizing Provider: ??Kelley Sanford MD ?Collected: ? 05/31/2020 11:05 AM ? Ordering Location: ? [facility] INTRAOP ? Received: ?05/31/2020 11:47 AM ? Pathologist: ? Mariaelena Ryan MD ? Specimen: ?Endometrium Curettings ? 06/01/2020 11:39 AM [facility] Final Diagnosis Uterus, endometrium, curettage - Superficial strips and fragments of inactive endometrium - Fragment of benign squamous epithelium 06/01/2020 11:39 AM [facility] Clinical History The patient is a 70-year-old woman. Operative procedure: endometrial curettage. 06/01/2020 11:39 AM [facility] Gross Description The specimen is received in a formalin-filled container, labeled with the patient's name Janeth Parker and endometrial curettage . It contains two Telfa specimens with rather scant church-hemorrhagic material, measuring in aggregate 1.2 x 1 x 0.3 cm. Wrapped and labeled A1. KS/taina 06/01/2020 11:39 AM [facility] Microscopic Description Microscopic examination substantiates the above diagnosis. 06/01/2020 11:39 AM [facility] Disclaimer All histochemical and/or immunohistochemical results are interpreted with controls that demonstrate appropriate staining reactions before reporting results. Note on use of immunocytochemistry reagents: This test was developed and its performance characteristic determined by [facility], Department of Laboratory Medicine. It has [...] be interpreted with caution. 06/01/2020 11:39 AM [facility] Embedded Images 06/01/2020 11:39 AM [facility] Pathology/Cytolo gy SPECIMEN FROM ENDOMETRIUM OBTAINED BY CURETTAGE / Unknown 05/31/2020 11:05 AM CDT 05/31/2020 11:47 AM CDT Comment:Pre-op diagnosis: Diagnosis unknown [R69] Kelley Sanford MD LAB - PATHOLOGY/CY TOLOGY ORDERABLES Performing Organization Address City/State/[facility] Co de Phone Number [facility] [address] [place], [place] [phone] documented in this encounter Visit Diagnoses Diagnosis [...] Post-op documented in this encounter Care Teams Inspector Filters Relationship Specialty Start Date End Date Watson Perry MD [address] [place] [phone] PCP - General 12/03/19 documented as of this encounter
--- OUTSIDE RECORDS SUMMARY | 2024-11-23 18:07 | XMS_ITS | Encounter Summary ---
Author Organization [facility] Address [address] [facility] [place] [address] Care Team Providers Care Black Puller Name Role Phone Watson Perry MD Primary Care Provider [phone] Reason for Visit * Reason Comments General PMB General Endo Thickening Encounter Details Date Type Department Care Team (Late st Contact Info) Description 12/11/2019 11:10 AM FINANCE PROFESSIONAL Office Visit [facility] Obstetrics Gynecology and Women's Health [address] [place] [address] Kelley Sanford MD [address] [phone] Thickened endometrium (Primary Dx); Postmenopausal bleeding; Retroperitoneal [...] Comments Blood Pressure 104/68 12/11/2019 10:27 AM FINANCE PROFESSIONAL Pulse 72 12/11/2019 10:27 AM FINANCE PROFESSIONAL Temperature - - Respiratory Rate - - Oxygen Saturation - - Inhaled Oxygen Concentration - - Weight 62.6 kg (138 lb) 12/11/2019 10:27 AM FINANCE PROFESSIONAL Height 167.6 cm (5' 6 ) 12/11/2019 10:27 AM FINANCE PROFESSIONAL Body Mass Index 22.27 12/11/2019 10:27 AM FINANCE PROFESSIONAL documented in this encounter Progress Notes * Kelley Sanford MD - 12/11/2019 11:14 AM CST [facility] Gynecologic Oncology New Patient Visit Date of [...] file Gets together: Not on file Attends mandaeism service: Not on file Active member of [...] was spent in counseling. Kelley Sanford MD Burlesque Dancer of Gynecologic Oncology Dept of Obstetrics, Gynecology, and Women's Health 12/12/2019 2:21 PM NCE PROFESSIONAL documented in this encounter Plan of Treatment Not on file documented as of this encounter Visit Diagnoses Diagnosis Thickened endometrium- Primary Nonspecific (abnormal) findings on radiological and other examination of genitourinary organs Postmenopausal bleeding Retroperitoneal lymphadenopathy Enlargement of lymph nodes Mesenteric lymphadenopathy Enlargement of lymph nodes documented in this encounter Care Teams Black Puller Relationship Specialty Start Date End Date Watson Perry MD [address] [place] [phone] PCP - General 12/03/19 documented as of this encounter
--- OUTSIDE RECORDS SUMMARY | 2024-11-23 18:07 | XMS_ITS | Encounter Summary ---
Author Organization [facility] Address [facility] [facility] [place] [address] Care Team Providers Care Sap Developer Name Role Phone Unknown, Provider Primary Care Provider Unavaila ble Encounter Details Date Type Department Care Team (Latest Contact Info) Description 05/20/2010 12:01 AM CDT - 05/20/2010 6:42 PM CDT Hospital Encounter [facility] PERIOPERATIVE [address] [place] [address] Sathish García MD [address] [place] [address] Surgery General Discharge Disposition: Home [...] with Dr. García on Sun at [facility] Call [phone] all medications to next visit. PRESCRIPTIONS GIVEN [...] Procedure Scheduled procedure: full thickness skin graft [facility] Problem List Patient Active Problem List [...] to proceed with surgery Carmela Yee M.D. [phone] * Sathish García MD - 05/20/2010 12:38 [...] cm 2. Cartilage Graft Surgeon: Dr. García Associate School Psychologist: Dr. Yee Type of anesthesia: General Complications: None EBL: Minimal Brief findings: None Specimens: None Disposition:Home today * Operative - Carmela Yee MD - 05/20/2010 12:00 AM CDT [facility] [place] [address] Operative Report PATIENT NAME: JANETH LAKE [facility]#: [id number] DATE OF : 2ACCT#: [id number] DATE OF OPERATION: 05/20/2010ROOM#: PREOPERATIVE DIAGNOSIS: Basal [...] for the entirety of this procedure. NAME: JANETH LAKE DICTATOR:CARMELA YEE M.D. DICTATED FOR:SATHISH GARCÍA MD /[id number] JOB ID: [id number] Operative Report documented in this encounter Miscellaneous [...] ($ Given - Prov ider: Bhupendra Ovalles PLANER MILL GRADER - Comment: given by martinez brandt) lidocaine [...] RN) documented in this encounter Care Teams Sap Developer Relationship Specialty Start Date End Date Unknown, Provider PCP - General 05/20/10 04/07/14 documented as of this encounter
--- OUTSIDE RECORDS SUMMARY | 2024-11-23 18:07 | XMS_ITS | Encounter Summary ---
Author Organization [facility] Address [address] [place] [address] Care Team Providers Care Rn Community Health Name Role Phone Watson Perry MD Primary Care Provider [phone] Reason for Visit * Auth/Cert Specialty Diagnoses / Procedures Referred By Contac t Referred To Contact Diagnoses Diagnosis unknown Diagnosis unknown [R69] Procedures HYSTEROSCOPY WITH DILATION & CURETTAGE Referral ID Status Reason Start Date Expiration Date Visits Re quested Visits Authorized [id number] 1 1 Encounter Details Date Type Department Care Team (Late st Contact Info) Description 12/15/2019 9:01 AM POSTDOCTORAL RESEARCH FELLOW Anesthesia Event [facility] PERIOPERATIVE [address] [place] [address] Renny Dee DO [address] [facility] [place] [address] Dylan Herzog MD [address] [facility] [place] [address] Anesthesia Record Procedure Summary Procedure Name Responsible [...] Care Non Reportable Improvement Section (otherwise blank): DOCTORAL RESEARCH FELLOW * Renny Dee DO - 12/15/2019 8:37 [...] by mouth daily with food. 12/14/2019 ??? [place]-3 Fatty Acids (FISH OIL PO) Take 1,000 [...] HISTORY OF right thumb surgery Lab Results: DOCTORAL RESEARCH FELLOW documented in this encounter Miscellaneous Notes * Anesthesia Transfer of Care - Pollo Daniel APRN-SEO INTERN - 12/15/2019 10:00 AM CST ANESTHESIA TRANSFER [...] report from the receiving PACUteam. GAYATHRI Posadas DOCTORAL RESEARCH FELLOW documented in this encounter Plan of Treatment [...] Anesthesia Intra-op $ Given 12/15/2019 9:20 AM POSTDOCTORAL RESEARCH FELLOW 4 mg ePHEDrine injection PRN, Starting on Sun12/15/19 at 0910, Until Sun12/15/19 at 1007, Anesthesia Intra-op $ Given 12/15/2019 9:55 AM POSTDOCTORAL RESEARCH FELLOW 5 mg $ Given 12/15/2019 9:10 AM POSTDOCTORAL RESEARCH FELLOW 10 mg fentaNYL (PF) (SUBLIMAZE) injection PRN, Starting on Sun12/15/19 at 0912, Until Sun12/15/19 at 1007, Anesthesia Intra-op $ Given 12/15/2019 9:18 AM POSTDOCTORAL RESEARCH FELLOW 25 mcg $ Given 12/15/2019 9:12 AM POSTDOCTORAL RESEARCH FELLOW 25 mcg lactated ringers infusion CONTINUOUS PRN, Starting on Sun12/15/19 at 0901, Until Sun12/15/19 at 1007, Anesthesia Intra-op $ New Bag/Syringe 12/15/2019 9:18 AM POSTDOCTORAL RESEARCH FELLOW $ New Bag/Syringe 12/15/2019 9:01 AM POSTDOCTORAL RESEARCH FELLOW lidocaine (XYLOCAINE) 2 % injection PRN, Starting on Sun12/15/19 at 0908, Until Sun12/15/19 at 1007, Anesthesia Intra-op $ Given 12/15/2019 9:08 AM POSTDOCTORAL RESEARCH FELLOW 80 mg midazolam (VERSED) injection PRN, Starting on Sun12/15/19 at 0901, Until Sun12/15/19 at 1007, Anesthesia Intra-op $ Given 12/15/2019 9:01 AM POSTDOCTORAL RESEARCH FELLOW 2 m g Ondansetron HCl (ZOFRAN) injection PRN, Starting on Sun12/15/19 at 0914, Until Sun12/15/19 at 1007, Anesthesia Intra-op $ Given 12/15/2019 9:14 AM POSTDOCTORAL RESEARCH FELLOW 4 m g Phenylephrine HCl (MICHELLE-SYNEPHRINE) injection Intravenous, PRN, Starting on Sun12/15/19 at 0909, Until Sun12/15/19 at 1007, Anesthesia Intra-op $ Given 12/15/2019 9:12 AM POSTDOCTORAL RESEARCH FELLOW 50 mcg $ Given 12/15/2019 9:09 AM POSTDOCTORAL RESEARCH FELLOW 50 mcg propofol (DIPRIVAN) injection PRN, Starting on Sun12/15/19 at 0908, Until Sun12/15/19 at 1007, Anesthesia Intra-op $ Given 12/15/2019 9:08 AM POSTDOCTORAL RESEARCH FELLOW 80 mg propofol (DIPRIVAN) injection CONTINUOUS PRN, Starting on Sun12/15/19 at 0908, Until Sun12/15/19 at 1007, Anesthesia Intra-op $ New Bag/Syringe 12/15/2019 9:08 AM POSTDOCTORAL RESEARCH FELLOW 50 mcg/kg/min 18.93 mL/hr documented in this encounter Care Teams Rn Community Health Relationship Specialty Start Date End Date Watson Perry MD [address] [place] [phone] PCP - General 12/03/19 documented as of this encounter
--- OUTSIDE RECORDS SUMMARY | 2024-11-23 18:07 | XMS_ITS | Encounter Summary ---
Author Organization [facility] Address [address] [facility] [place] [address] Care Team Providers Care Commercial Loan Underwriter Name Role Phone Watson Perry MD Primary Care Provider [phone] Reason for Visit * Reason Comments Post-Op Encounter Details Date Type Department Care Team (Late st Contact Info) Description 12/30/2019 10:30 AM SENIOR OPERATOR Office Visit [facility] Obstetrics Gynecology and Women's Health [address] [place] [address] Kelley Sanford MD [address] [facility] [address] [place], [place] [phone] Postmenopausal bleeding (Primary Dx); Lymphadenopathy Social History [...] Comments Blood Pressure 106/90 12/30/2019 10:28 AM SENIOR OPERATOR Pulse 114 12/30/2019 10:28 AM SENIOR OPERATOR Temperature - - Respiratory Rate - - Oxygen Saturation - - Inhaled Oxygen Concentration - - Weight 62.6 kg (138 lb) 12/30/2019 10:28 AM SENIOR OPERATOR Height 165.1 cm (5' 5 ) 12/30/2019 10:28 AM SENIOR OPERATOR Body Mass Index 22.96 12/30/2019 10:28 AM SENIOR OPERATOR documented in this encounter Progress Notes * Kelley Sanford MD - 12/30/2019 10:30 AM CST [facility] Gynecologic Oncology Established Patient Visit Date of [...] the progesterone. Was seen in ED at [facility] in [place]. She states she had a CT and [...] further workup of LAD *If patient needs care home prescriptions, can do 90 day supply which is cheaper* I have spent 15 minutes with the patient of which >50% was spent in counseling. Kelley Sanford MD Stranding Supervisor of Gynecologic Oncology Dept of Obstetrics, Gynecology, and Women's Health 12/30/2019 10:32 AM OR OPERATOR documented in this encounter Plan of Treatment Not on file documented as of this encounter Visit Diagnoses Diagnosis Postmenopausal bleeding- Primary Lymphadenopathy Enlargement of lymph nodes documented in this encounter Care Teams Commercial Loan Underwriter Relationship Specialty Start Date End Date Watson Perry MD [address] [place] [phone] PCP - General 12/03/19 documented as of this encounter
--- OUTSIDE RECORDS SUMMARY | 2024-11-23 18:07 | XMS_ITS | Encounter Summary ---
Author Organization [facility] Address [address] [facility] [place] [address] Care Team Providers Care Transformation Manager Name Role Phone Watson Perry MD Primary Care Provider [phone] Reason for Visit * Auth/Cert Specialty Diagnoses / Procedures Referred By Osielac t Referred To Contact Diagnoses Diagnosis unknown Diagnosis unknown [R69] Procedures HYSTEROSCOPY WITH DILATION & CURETTAGE Referral ID Status Reason Start Date Expiration Date Visits Re quested Visits Authorized [id number] 1 1 Encounter Details Date Type Department Care Team (Late st Contact Info) Description 12/15/2019 9:00 AM WEEDER - 12/15/2019 10:18 AM [facility] Surgery [facility] PERIOPERATIVE [address] [place] [address] Kelley Sanford MD [facility] [place] [address] HYSTEROSCOPY WITH DILATION & CURETTAGE Surgery Details Date/Time Status Location OR Service Patient Class Case Class Case Type Trauma Case? 12/15/2019 9:00 AM Posted [facility] MAIN OR OR 08 Gynecology Surgery Day [...] Comments Blood Pressure 122/76 12/15/2019 10:15 AM WEEDER Pulse 59 12/15/2019 10:15 AM WEEDER Temperature 36.3 ??C (97.3 ??F) 12/15/2019 9:53 AM CS T Respiratory Rate 13 12/15/2019 10:15 AM WEEDER Oxygen Saturation 92% 12/15/2019 10:15 AM WEEDER Inhaled Oxygen Concentration - - Weight 63 kg (139 lb) 12/15/2019 7:29 AM WEEDER Height 165.1 cm (5' 5 ) 12/15/2019 7:29 AM WEEDER Body Mass Index 23.13 12/15/2019 7:29 AM WEEDER documented in this encounter Medications at Time [...] (one) tablet by mouth daily with food [place]-3 Fatty Acids (FISH OIL PO) Take 1,000 [...] file Gets together: Not on file Attends methodist service: Not on file Active member of [...] Tab by mouth daily with food. ??? [place]-3 Fatty Acids (FISH OIL PO) Take 1,000 [...] results for input(s): ABORH in the last 70052 hours. Recent Labs Component Name 05/11/10 1104 [...] ureters). Amalia Rome MD 12/14/2019 5:07 PM Photogravure Press Operator Onc Attending Addendum I have personally seen and examined the patient and agree with the documentation by Dr. Rome. Planned procedure is hysteroscopy, dilation and curettage. Kelley Sanford MD Patient Service Coordinator of Gynecologic Oncology Dept of Obstetrics, Gynecology, and Women's Health 12/15/2019 8:22 AM ER documented in this encounter OR Notes * Brief Op Note - Amalia Rome MD - 12/15/2019 9:00 AM CST R4 Brief Op Note 12/15/2019 9:57 AM Preoperative Diagnosis: Postmenopausal bleeding, thickened endometrial stripe Postoperative Diagnosis: Same, small endometrial polyp Procedure: Diagnostic hysteroscopy, dilation and curettage Surgeon: Kelley Sanford MD Cylinder Die Machine Operator: Amalia Rome MD Type of anesthesia: MAC [...] Dr. Juvenal Rome MD 12/15/2019 9:57 AM ER * Operative - Kelley Sanford MD - 12/15/2019 9:00 AM CST Gynecologic Oncology Operative Note 12/15/2019 9:55 AM Preoperative Diagnosis: thickened endometrium, postmenopausal bleeding Postoperative Diagnosis: same, endometrial polyp Procedure: hysteroscopy, dilation and curettage, polypectomy Surgeon: Kelley Sanford MD Cylinder Die Machine Operator: Amalia Rome MD Type of anesthesia: MAC [...] entirety of the procedure. Kelley Sanford MD Patient Service Coordinator of Gynecologic Oncology Dept of Obstetrics, Gynecology, and Women's Health 12/15/2019 9:55 AM ER documented in this encounter Plan of Treatment Not on file documented as of this encounter Procedures Procedure Name Priority Date/Time Associated Diagnosis Comments CARDIAC RHYTHM STRIP ORDER 12/17/2019 6:54 PM WEEDER PATHOLOGY TISSUE EXAM (STL) Routine 12/15/2019 9:30 AM WEEDER Diagnosis unknown [place] HYSTEROSCOPY,W/EN DO BX 12/15/2019 8:25 AM WEEDER Diagnosis unknown Special Needs SURGEON REQUEST SPINAL AND LOCAL PER OFFICE ([place])--12/11 CT documented in this encounter Results * CARDIAC RHYTHM STRIP ORDER (12/17/2019 6:54 PM WEEDER) Narrative 12/17/2019 6:54 PM WEEDER Ordered by an unspecified provider. Scanned Document CARDIAC SERVICES ORD ERABLES * GROSS + MICRO EXAM (STL) (12/15/2019 9:30 AM WEEDER) Case Report Surgical Pathology Report ? Case: [id number] ? Authorizing Provider: ??Kelley Sanford MD ?Collected: ? 12/15/2019 09:30 AM ? Ordering Location: ? [facility] INTRAOP ? Received: ?12/15/2019 11:02 [...] and its performance characteristic determined by [facility], Department of Laboratory Medicine. It [...] POLYP SPECIMEN / Unknown 12/15/2019 9:30 AM WEEDER 12/15/2019 11:02 AM WEEDER Comment:Pre-op diagnosis: Diagnosis unknown [R69] Miscellaneous samples (specimen) SPECIMEN FROM ENDOMETRIUM OBTAINED BY CURETTAGE / Unknown 12/15/2019 9:37 AM WEEDER 12/15/2019 11:02 AM WEEDER Comment:Pre-op diagnosis: Diagnosis unknown [R69] Kelley Sanford MD LAB - PATHOLOGY/CY TOLOGY ORDERABLES [facility] [address] [place] [address] documented in this encounter Visit [...] 0730, Pre-op $ Given 12/15/2019 7:42 AM WEEDER 1,000 mg bupivacaine PF (MARCAINE PF) 0.5 % injection PRN, Starting on Sun12/15/19 at 0945, Until Sun12/15/19 at 0953, Intra-op $ Given 12/15/2019 9:45 AM WEEDER 20 mL Operative Site lactated ringers infusion at 20 mL/hr, Intravenous, PRE-OP CONTINUOUS, Starting on Sun12/15/19 at 0730, Until Sun12/15/19 at 1456, Pre-op $ New Bag/Syringe 12/15/2019 7:43 AM WEEDER 20 mL/hr lactated ringers infusion at 125 mL/hr, Intravenous, CONTINUOUS, Starting on Sun12/15/19 at 1045, Until Sun12/15/19 at 1456, PACU $ New Bag/Syringe 12/15/2019 1:04 PM WEEDER 125 mL/hr lidocaine (XYLOCAINE MPF) 1 % injection 0.2 mL 0.2 mL, Infiltration, PRE-OP MULTIPLE, 3 doses, Starting on Sun12/15/19 at 0715, Until Sun12/15/19 at 1456, May be used (0.2 ml locally to anesthetize prior to insertion)., Pre-op $ Given 12/15/2019 7:42 AM WEEDER 0.2 mL documented in this encounter Active and Recently Administered Medications Times are shown in WEEDER. Scheduled Medication Order 12/13/2019 12/14/2019 12/15/2019 acetaminophen [...] Post-op documented in this encounter Care Teams Transformation Manager Relationship Specialty Start Date End Date Watson Perry MD [address] [place] [phone] PCP - General 12/03/19 documented as of this encounter
--- OUTSIDE RECORDS SUMMARY | 2024-11-23 18:07 | XMS_ITS | Encounter Summary ---
Author Organization [facility] Address [address] [facility] [place] [address] Care Team Providers Care Cap And Hat Production Supervisor Name Role Phone Watson Perry MD Primary Care Provider [phone] Reason for Visit * Reason Onset Date Comments Follow-up 01/02/2020 Encounter Details Date Type Department Care Team (Late st Contact Info) Description 01/02/2020 Telephone [facility] Obstetrics Gynecology and Women's Health [address] [place], [place] [phone] Kelley Sanford MD [address] [facility] [address] [place], [place] [phone] Follow-up Social History Tobacco Use Types Packs/Day [...] Kelley Sanford MD - 01/02/2020 3:48 PM PAIN MANAGEMENT PHYSICIAN Called patient to discuss her bleeding symptoms. [...] pelvic US and appt. Kelley Sanford MD Delivery Lead of Gynecologic Oncology Dept of Obstetrics, Gynecology, and Women's Health 01/02/2020 3:51 PM MANAGEMENT PHYSICIAN documented in this encounter Plan of Treatment Not on file documented as of this encounter Results * TN SONO EXAM, TRANSVAGINAL (05/13/2020 11:05 AM CDT) [...] uteri documented in this encounter Care Teams Cap And Hat Production Supervisor Relationship Specialty Start Date End Date Watson Perry MD [address] [place] [phone] PCP - General 12/03/19 documented as of this encounter
--- OUTSIDE RECORDS SUMMARY | 2024-11-23 18:07 | XMS_ITS | Encounter Summary ---
Author Organization [facility] Address [address] [facility] [place] [address] Care Team Providers Care Gyroscope Repairer Name Role Phone Watson Perry MD Primary Care Provider [phone] Reason for Visit * Auth/Cert Specialty Diagnoses / Procedures Referred By Contac t Referred To Contact Diagnoses Diagnosis unknown Diagnosis unknown [R69] Procedures HYSTEROSCOPY WITH DILATION & CURETTAGE Referral ID Status Reason Start Date Expiration Date Visits Re quested Visits Authorized [id number] 1 1 Encounter Details Date Type Department Care Team (Latest Contact Info) Description 05/31/2020 8:39 AM CDT - 05/31/2020 1:33 PM CDT Hospital Encounter [facility] INTRAOP [address] [place] [address] Kelley Sanford MD [address] [facility] [address] [place] [address] Surgery General Discharge Disposition: Home or Self [...] (one) tablet by mouth daily with food [place]-3 Fatty Acids (FISH OIL PO) Take 1,000 [...] with neg HPV Mammogram 2017 Colonoscopy 01/17/19 DIE BARBER: See above SOC: Social History Socioeconomic History [...] file Gets together: Not on file Attends anabaptism service: Not on file Active member of [...] Tab by mouth daily with food. ??? [place]-3 Fatty Acids (FISH OIL PO) Take 1,000 [...] results for input(s): ABORH in the last 19895 hours. No results for input(s): WBC, HGB, HCT, PLTCOUNT in the last 17567 hours. No results for input(s): SODIUM, POTASSIUM, CHLORIDE, CO2, BUN, CREATININE, GLUCOSE, CALCIUM in thelast 70513 hours. Assessment/Plan: 70 year old with: H/o [...] Sanford MD - 05/31/2020 9:59 AM CDT Chief Digital Media Officer Onc Attending Addendum I have personally seen and examined the patient and agree with the documentation by Dr. Allen. Planned procedure is hysteroscopy, dilation and curettage. Kelley Sanford MD Plastic Straightening Roll Operator of Gynecologic Oncology Dept of Obstetrics, [...] dilation and curettage Surgeon: Kelley Sanford MD Entrepreneur: Loraine Chao MD Type of anesthesia: MAC [...] dilation and curettage Surgeon: Kelley Sanford MD Entrepreneur: Loraine Chao MD Type of anesthesia: MAC [...] entirety of the procedure. Kelley Sanford MD Plastic Straightening Roll Operator of Gynecologic Oncology Dept of Obstetrics, Gynecology, and Women's Health 05/31/2020 2:18 PM documented in this encounter Plan of Treatment Not on file documented as of this encounter Procedures Procedure Name Priority Date/Time Associated Diagnosis Comments CARDIAC RHYTHM STRIP ORDER 06/03/2020 1:16 PM CDT PATHOLOGY TISSUE EXAM (STL) Routine 05/31/2020 11:05 AM CDT Diagnosis unknown OK HYSTEROSCOPY,W/ENDO BX 05/31/2020 10:13 AM CDT Diagnosis unknown documented in this encounter Results * CARDIAC RHYTHM STRIP ORDER (06/03/2020 1:16 PM CDT) Narrative 06/03/2020 1:16 PM CDT Ordered by an unspecified provider. Scanned Document CARDIAC SERVICES ORD ERABLES * PATHOLOGY TISSUE EXAM (STL) (05/31/2020 11:05 AM CDT) Case Report Surgical Pathology Report ? Case: [id number] ? Authorizing Provider: ??Kelley Sanford MD ?Collected: ? 05/31/2020 11:05 AM ? Ordering Location: ? [facility] INTRAOP ? Received: ?05/31/2020 11:47 AM ? Pathologist: ? Mariaelena Ryan MD ? Specimen: ?Endometrium Curettings ? 06/01/2020 11:39 AM [facility] Final Diagnosis Uterus, endometrium, curettage - Superficial strips and fragments of inactive endometrium - Fragment of benign squamous epithelium 06/01/2020 11:39 AM [facility] Clinical History The patient is a 70-year-old woman. Operative procedure: endometrial curettage. 06/01/2020 11:39 AM [facility] Gross Description The specimen is received in a formalin-filled container, labeled with the patient's name Janeth Parker and endometrial curettage . It contains two Telfa specimens with rather scant church-hemorrhagic material, measuring in aggregate 1.2 x 1 x 0.3 cm. Wrapped and labeled A1. KS/taina 06/01/2020 11:39 AM [facility] Microscopic Description Microscopic examination substantiates the above diagnosis. 06/01/2020 11:39 AM [facility] Disclaimer All histochemical and/or immunohistochemical results are interpreted with controls that demonstrate appropriate staining reactions before reporting results. Note on use of immunocytochemistry reagents: This test was developed and its performance characteristic determined by [facility], Department of Laboratory Medicine. It [...] be interpreted with caution. 06/01/2020 11:39 AM [facility] Embedded Images 06/01/2020 11:39 AM [facility] Pathology/Cytolo gy SPECIMEN FROM ENDOMETRIUM OBTAINED BY CURETTAGE / Unknown 05/31/2020 11:05 AM CDT 05/31/2020 11:47 AM CDT Comment:Pre-op diagnosis: Diagnosis unknown [R69] Kelley Sanford MD LAB - PATHOLOGY/CY TOLOGY ORDERABLES [facility] [address] [place] [address] documented in this encounter Visit Diagnoses Diagnosis [...] ($ New Bag/Syringe - Provider: Pollo Daniel APRN-VP DELIVERY)1120 (Anesthesia Volume Adjustment - Provider: Pollo Daniel APRN-VP DELIVERY)1139 ($ New Bag/Syringe - Provider: Connor Sainz [...] Post-op documented in this encounter Care Teams Gyroscope Repairer Relationship Specialty Start Date End Date Watson Perry MD [address] [place] [phone] PCP - General 12/03/19 documented as of this encounter
--- OUTSIDE RECORDS SUMMARY | 2024-11-23 18:07 | XMS_ITS | Encounter Summary ---
Author Organization [facility] Address [address] [facility] [place] [address] Care Team Providers Care Legal Advisor Name Role Phone Watson Perry MD Primary Care Provider [phone] Reason for Visit * Reason Onset Date Comments Reschedule Appointment 03/05/2020 Encounter Details Date Type Department Care Team (Late st Contact Info) Description 03/05/2020 Telephone [facility] [address] [place] [address] Kelley Sanford MD [address] [phone] Reschedule Appointment Social History Tobacco Use Types [...] on filedocumented in this encounter Care Teams Legal Advisor Relationship Specialty Start Date End Date Watson Perry MD [address] [place] [phone] PCP - General 12/03/19 documented as of this encounter
--- OUTSIDE RECORDS SUMMARY | 2024-11-23 18:07 | XMS_ITS | Encounter Summary ---
Author Organization [facility] Address [address] [facility] [place] [address] Care Team Providers Care Lockstitch Pocket Setter Name Role Phone Watson Perry MD Primary Care Provider [phone] Reason for Visit * Reason Comments Follow-up Encounter Details Date Type Department Care Team (Late Contact Info) Description 05/13/2020 11:50 AM CDT Office Visit [facility] [address] [place] [address] Kelley Sanford MD [address] [phone] Endometrial thickening on ultrasound (Primary Dx); Postmenopausal [...] Sanford MD - 05/13/2020 12:13 PM CDT [facility] Gynecologic Oncology Established Patient Visit Date [...] was spent in counseling. Kelley Sanford MD Plastic Dolls Mold Filler of Gynecologic Oncology Dept of Obstetrics, Gynecology, and Women's Health 05/13/2020 12:13 PM documented in this encounter Plan of Treatment Not on file documented as of this encounter Visit Diagnoses Diagnosis Endometrial thickening on ultrasound- Primary Postmenopausal bleeding documented in this encounter Care Teams Lockstitch Pocket Setter Relationship Specialty Start Date End Date Watson Perry MD [address] [place] [phone] PCP - General 12/03/19 documented as of this encounter
--- OUTSIDE RECORDS SUMMARY | 2024-11-23 18:07 | XMS_ITS | Encounter Summary ---
Author Organization [facility] Address [address] [facility] [place] [address] Care Team Providers Care Carroting Machine Operator Name Role Phone Watson Perry MD Primary Care Provider [phone] Reason for Visit * Reason Onset Date Comments Results 12/18/2019 Encounter Details Date Type Department Care Team (Late st Contact Info) Description 12/18/2019 Telephone [facility] [address] [place] [address] Kelley Sanford MD [address] [facility] [address] [place], [place] [phone] Results Social History Tobacco Use Types Packs/Day [...] Kelley Sanford MD - 12/18/2019 2:35 PM SAP BPC ARCHITECT Called patient with pathology results which demonstrated [...] here. If not, she can do at [place]. Leaving for vacation on 01/05. Kelley Sanford MD Cad Specialist of Gynecologic Oncology Dept of Obstetrics, Gynecology, and Women's Health 12/18/2019 2:38 PM BPC ARCHITECT documented in this encounter Plan of Treatment Not on file documented as of this encounter Visit Diagnoses Not on filedocumented in this encounter Care Teams Carroting Machine Operator Relationship Specialty Start Date End Date Watson Perry MD [address] [place] [phone] PCP - General 12/03/19 documented as of this encounter
--- OUTSIDE RECORDS SUMMARY | 2024-11-23 18:07 | XMS_ITS | Encounter Summary ---
Author Organization [facility] Address [address] [place] [address] Care Team Providers Care Stripping Cutter And Winder Name Role Phone Watson Perry MD Primary Care Provider [phone] Reason for Visit * Auth/Cert Specialty Diagnoses / Procedures Referred By Contac t Referred To Contact Diagnoses Diagnosis unknown Diagnosis unknown [R69] Procedures HYSTEROSCOPY WITH DILATION & CURETTAGE Referral ID Status Reason Start Date Expiration Date Visits Re quested Visits Authorized [id number] 1 1 Encounter Details Date Type Department Care Team (Latest Contact Info) Description 12/15/2019 6:43 AM MARKET ASSET PROTECTION MANAGER - 12/15/2019 1:56 PM [facility] Hospital Encounter [facility] INTRAOP [address] [place] [address] Kelley Sanford MD [address] [facility] [address] [place] [address] Surgery General Discharge Disposition: Home or Self [...] Comments Blood Pressure 109/73 12/15/2019 12:30 PM MARKET ASSET PROTECTION MANAGER Pulse 58 12/15/2019 12:30 PM MARKET ASSET PROTECTION MANAGER Temperature 36.3 ??C (97.4 ??F) 12/15/2019 10:[address] Respiratory Rate 18 12/15/2019 12:30 PM MARKET ASSET PROTECTION MANAGER Oxygen Saturation 97% 12/15/2019 12:30 PM MARKET ASSET PROTECTION MANAGER Inhaled Oxygen Concentration - - Weight 63 kg (139 lb) 12/15/2019 7:29 AM MARKET ASSET PROTECTION MANAGER Height 165.1 cm (5' 5 ) 12/15/2019 7:29 AM MARKET ASSET PROTECTION MANAGER Body Mass Index 23.13 12/15/2019 7:29 AM MARKET ASSET PROTECTION MANAGER documented in this encounter Medications at Time [...] (one) tablet by mouth daily with food [place]-3 Fatty Acids (FISH OIL PO) Take 1,000 [...] file Gets together: Not on file Attends hindu service: Not on file Active member of [...] Tab by mouth daily with food. ??? [place]-3 Fatty Acids (FISH OIL PO) Take 1,000 [...] results for input(s): ABORH in the last 97410 hours. Recent Labs Component Name 05/11/10 1104 [...] ureters). Amalia Rome MD 12/14/2019 5:07 PM Dance Instructor Onc Attending Addendum I have personally seen and examined the patient and agree with the documentation by Dr. Rome. Planned procedure is hysteroscopy, dilation and curettage. Kelley Sanford MD Batter Out of Gynecologic Oncology Dept of Obstetrics, Gynecology, and Women's Health 12/15/2019 8:22 AM ET ASSET PROTECTION MANAGER documented in this encounter OR Notes * Brief Op Note - Amalia Rome MD - 12/15/2019 9:00 AM CST R4 Brief Op Note 12/15/2019 9:57 AM Preoperative Diagnosis: Postmenopausal bleeding, thickened endometrial stripe Postoperative Diagnosis: Same, small endometrial polyp Procedure: Diagnostic hysteroscopy, dilation and curettage Surgeon: Kelley Sanford MD Portfolio Analyst: Amalia Rome MD Type of anesthesia: MAC [...] Dr. Juvenal Rome MD 12/15/2019 9:57 AM ET ASSET PROTECTION MANAGER * Operative - Kelley Sanford MD - 12/15/2019 9:00 AM CST Gynecologic Oncology Operative Note 12/15/2019 9:55 AM Preoperative Diagnosis: thickened endometrium, postmenopausal bleeding Postoperative Diagnosis: same, endometrial polyp Procedure: hysteroscopy, dilation and curettage, polypectomy Surgeon: Kelley Sanford MD Portfolio Analyst: Amalia Rome MD Type of anesthesia: MAC [...] entirety of the procedure. Kelley Sanford MD Batter Out of Gynecologic Oncology Dept of Obstetrics, Gynecology, and Women's Health 12/15/2019 9:55 AM ET ASSET PROTECTION MANAGER documented in this encounter Plan of Treatment Not on file documented as of this encounter Procedures Procedure Name Priority Date/Time Associated Diagnosis Comments CARDIAC RHYTHM STRIP ORDER 12/17/2019 6:54 PM MARKET ASSET PROTECTION MANAGER PATHOLOGY TISSUE EXAM (STL) Routine 12/15/2019 9:30 AM MARKET ASSET PROTECTION MANAGER Diagnosis unknown [place] HYSTEROSCOPY,W/EN DO BX 12/15/2019 8:25 AM MARKET ASSET PROTECTION MANAGER Diagnosis unknown Special Needs SURGEON REQUEST SPINAL AND LOCAL PER OFFICE ([place])--12/11 CT documented in this encounter Results * CARDIAC RHYTHM STRIP ORDER (12/17/2019 6:54 PM MARKET ASSET PROTECTION MANAGER) Narrative 12/17/2019 6:54 PM MARKET ASSET PROTECTION MANAGER Ordered by an unspecified provider. Scanned Document CARDIAC SERVICES ORD ERABLES * GROSS + MICRO EXAM (STL) (12/15/2019 9:30 AM MARKET ASSET PROTECTION MANAGER) Case Report Surgical Pathology Report ? Case: [id number] ? Authorizing Provider: ??Kelley Sanford MD ?Collected: ? 12/15/2019 09:30 AM ? Ordering Location: ? [facility] INTRAOP ? Received: ?12/15/2019 11:02 AM ? Pathologist: ? Renny Julian MD ? Specimens: ?? A) - Polyp Endometrial ? B) - Endometrium Curettings ? 12/18/2019 6:30 AM [facility] Final Diagnosis 1. Uterus, endometrium, polyp : -- Polypoid endometrium with focal simple hyperplasia 2. Uterus, endometrium, curettage: -- Proliferative pattern endometrium with focal simple hyperplasia -- Fragments of non-dysplastic stratified squamous epithelium WALLY/jesica 12/18/2019 6:30 AM [facility] Clinical History Diagnosis unknown. 12/18/2019 6:30 AM [facility] Gross Description A. Received in formalin [...] in cassette B1. SW/scs 12/18/2019 6:30 AM [facility] Microscopic Description The endometrium in both biopsies is negative for chronic endometritis and malignancy. JLC/jesica 12/18/2019 6:30 AM [facility] Disclaimer All histochemical and/or immunohistochemical results are interpreted with controls that demonstrate appropriate staining reactions before reporting results. Note on use of immunocytochemistry reagents: This test was developed and its performance characteristic determined by [facility], Department of Laboratory Medicine. It has not been cleared or approved by the U.S. Food and Drug Administration (FDA). The FDA has determined that such clearance or approval is not necessary. The test is used for clinical purpose. It should not be regarded as investigational or for research. This laboratory is certified to perform high complexity testing. 12/18/2019 6:30 AM [facility] Embedded Images 12/18/2019 6:30 AM [facility] Pathology/Cytology ENDOMETRIAL POLYP SPECIMEN / Unknown 12/15/2019 9:30 AM MARKET ASSET PROTECTION MANAGER 12/15/2019 11:02 AM MARKET ASSET PROTECTION MANAGER Comment:Pre-op diagnosis: Diagnosis unknown [R69] Miscellaneous samples (specimen) SPECIMEN FROM ENDOMETRIUM OBTAINED BY CURETTAGE / Unknown 12/15/2019 9:37 AM MARKET ASSET PROTECTION MANAGER 12/15/2019 11:02 AM MARKET ASSET PROTECTION MANAGER Comment:Pre-op diagnosis: Diagnosis unknown [R69] Kelley Sanford MD LAB - PATHOLOGY/CY TOLOGY ORDERABLES Performing Organization Address [facility]/State/[facility] Co de Phone Number [facility] [address] [place], [place] [phone] documented in this encounter Visit Diagnoses Diagnosis [...] 0730, Pre-op $ Given 12/15/2019 7:42 AM MARKET ASSET PROTECTION MANAGER 1,000 mg lactated ringers infusion at 20 mL/hr, Intravenous, PRE-OP CONTINUOUS, Starting on Sun12/15/19 at 0730, Until Sun12/15/19 at 1456, Pre-op $ New Bag/Syringe 12/15/2019 7:43 AM MARKET ASSET PROTECTION MANAGER 20 mL/hr lactated ringers infusion at 125 mL/hr, Intravenous, CONTINUOUS, Starting on Sun12/15/19 at 1045, Until Sun12/15/19 at 1456, PACU $ New Bag/Syringe 12/15/2019 1:04 PM MARKET ASSET PROTECTION MANAGER 125 mL/hr lidocaine (XYLOCAINE MPF) 1 % injection 0.2 mL 0.2 mL, Infiltration, PRE-OP MULTIPLE, 3 doses, Starting on Sun12/15/19 at 0715, Until Sun12/15/19 at 1456, May be used (0.2 ml locally to anesthetize prior to insertion)., Pre-op $ Given 12/15/2019 7:42 AM MARKET ASSET PROTECTION MANAGER 0.2 mL documented in this encounter Active and Recently Administered Medications Times are shown in MARKET ASSET PROTECTION MANAGER. Scheduled Medication Order 12/13/2019 12/14/2019 12/15/2019 acetaminophen [...] Post-op documented in this encounter Care Teams Stripping Cutter And Winder Relationship Specialty Start Date End Date Watson Perry MD [address] [place] [phone] PCP - General 12/03/19 documented as of this encounter
--- OUTSIDE RECORDS SUMMARY | 2024-11-23 18:07 | XMS_ITS | Encounter Summary ---
Author Organization [facility] Address [address] [facility] [place] [address] Care Team Providers Care Database Administration Manager Name Role Phone Unknown, Provider Primary Care Provider Unavaila ble Encounter Details Date Type Department Care Team (Latest Contact Info) Description 05/11/2010 10:39 AM CDT - 05/11/2010 11:59 PM CDT Hospital Encounter [facility] [address] [place] [address] Unknown, Provider ABR Sedation Discharge Disposition: Home [...] on filedocumented in this encounter Care Teams Database Administration Manager Relationship Specialty Start Date End Date Unknown, Provider PCP - General 05/11/10 05/11/10 documented as of this encounter
--- OUTSIDE RECORDS SUMMARY | 2024-11-23 18:07 | XMS_ITS | Encounter Summary ---
Author Organization [facility] Address [address] [place] [address] Care Team Providers Care Licensed Vocational Nurse Name Role Phone Watson Perry MD Primary Care Provider [phone] Reason for Visit * Reason Onset Date Comments Imaging 01/01/2020 mammogram Encounter Details Date Type Department Care Team (Late st Contact Info) Description 01/01/2020 Telephone [facility] - RAMP AND CARGO SUPERVISOR [address] [address] Kelley Sanford MD [address] [place] [phone] Imaging (mammogram) Social History Tobacco Use Types [...] Leanne Shell RN - 01/01/2020 11:49 AM BAG PATCHER SEE previous encounter PATCHER * Telephone Encounter - Kiah Dejesus - 01/01/2020 10:26 AM CST Pt need orders for mammogram sent to [facility] so that the pt can call and schedule appointment [phone] PATCHER documented in this encounter Plan of Treatment Not on file documented as of this encounter Visit Diagnoses Not on filedocumented in this encounter Care Teams Licensed Vocational Nurse Relationship Specialty Start Date End Date Watson Perry MD [address] [place] [phone] PCP - General 12/03/19 documented as of this encounter
--- OUTSIDE RECORDS SUMMARY | 2024-11-23 18:07 | XMS_ITS | Encounter Summary ---
Author Organization [facility] Address [address] [facility] [place] [address] Care Team Providers Care Care Consultant Name Role Phone Isrrael Sims MD Primary Care Provider [phone] Watson Perry MD Primary Care Provider [phone] Reason for Visit * Reason Onset Date Comments Future Appointment 12/02/2019 PMB, Jose thi ckening Encounter Details Date Type Department Care Team (Late st Contact Info) Description 12/02/2019 Telephone [facility] [address] [place], [place] [phone] Kelley Sanford MD [address] [facility] [address] [place], [place] [phone] Future Appointment (PMB, Jose thickening) Social History [...] scheduled appt on 12/11/19 at 11:10 at [facility] with Dr Sanford. Pt states she had a ct done at [facility] 10/2019. I will attempt to get these records. IFIED MEDICATION TECHNICIAN * Telephone Encounter - Sonya Valadez - 12/02/2019 3:56 PM CST Referral rec'd. Dx: PMB, Endo thickening Called pt, lm on vm, asked pt to cb at [phone] and ask for Sonya. per Dr Bashir - Schedule CT A/P w/ contrast prior to appt IFIED MEDICATION TECHNICIAN documented in this encounter Plan of Treatment Not on file documented as of this encounter Visit Diagnoses Not on filedocumented in this encounter Care Teams Care Consultant Relationship Specialty Start Date End Date Isrrael Sims MD [address] [place] [address] PCP - General 04/18/19 12/02/19 Watson Perry MD [address] [place] [phone] PCP - General 12/03/19 documented as of this encounter
--- OUTSIDE RECORDS SUMMARY | 2024-11-23 18:07 | XMS_ITS | Encounter Summary ---
Author Organization [facility] Address [address] [facility] [place] [address] Care Team Providers Care Community Coordinator Name Role Phone Watson Perry MD Primary Care Provider [phone] Reason for Visit * Reason Onset Date Comments Order 01/01/2020 mammogram Encounter Details Date Type Department Care Team (Late st Contact Info) Description 01/01/2020 Telephone [facility] [address] [place] [address] Kelley Sanford MD [address] [phone] Order (mammogram) Social History Tobacco Use Types [...] Leanne Shell RN - 01/01/2020 11:43 AM IT SECURITY MANAGER Returned call to patient Will fax order to [place] as per patients request FAX # Patient aware SECURITY MANAGER * Telephone Encounter - Raffi Moffett - 01/01/2020 9:55 AM CST Pt called in stating she needs a mammogram and her year is not up until March but if she can get a diagnostic anshul then she can get it now. Callback#[phone] SECURITY MANAGER documented in this encounter Plan of Treatment Not on file documented as of this encounter Visit Diagnoses Diagnosis Endometrial cancer (HCC)- Primary Malignant neoplasm of corpus uteri, except isthmus documented in this encounter Care Teams Community Coordinator Relationship Specialty Start Date End Date Watson Perry MD [address] [place] [phone] PCP - General 12/03/19 documented as of this encounter
--- OUTSIDE RECORDS SUMMARY | 2024-11-23 18:07 | XMS_ITS | Encounter Summary ---
Author Organization [facility] Address [address] [facility] [place] [address] Care Team Providers Care Spring Up Supervisor Name Role Phone Watson Perry MD Primary Care Provider [phone] Reason for Visit * Reason Onset Date Comments Follow-up 01/19/2020 Encounter Details Date Type Department Care Team (Late st Contact Info) Description 01/19/2020 Telephone [facility] PHYS SURGERY [address] [place] [address] Kelley Sanford MD [address] [facility] [address] [place] [address] Follow-up Social History Tobacco Use Types Packs/Day [...] Kelley Sanford MD - 01/19/2020 1:30 PM RATE QUOTING OPERATOR Called patient to touch base with her [...] her next appt again. Kelley Sanford MD Psychometric Examiner of Gynecologic Oncology Dept of Obstetrics, Gynecology, and Women's Health 01/19/2020 1:34 PM QUOTING OPERATOR documented in this encounter Plan of Treatment Not on file documented as of this encounter Visit Diagnoses Not on filedocumented in this encounter Care Teams Spring Up Supervisor Relationship Specialty Start Date End Date Watson Perry MD [address] [place] [phone] PCP - General 12/03/19 documented as of this encounter
--- OUTSIDE RECORDS SUMMARY | 2024-11-23 18:07 | XMS_ITS | Encounter Summary ---
Author Organization [facility] Address [address] [facility] [place] [address] Care Team Providers Care Etl Programmer Name Role Phone Watson Perry MD Primary Care Provider [phone] Reason for Visit * Reason Onset Date Comments Surgery Scheduling 05/14/2020 Encounter Details Date Type Department Care Team (Late st Contact Info) Description 05/14/2020 Telephone [facility] Obstetrics Gynecology and Women's Health [address] [place] [address] Kelley Sanford MD [address] [facility] [address] [place], [place] [id number] Surgery Scheduling Social History Tobacco Use Types [...] on vm, asked pt to cb at [phone] and ask for Sonya. TIME HELD ON OR SCHEDULE FOR DR SANFORD FOR 05.31.20 AT 11AM documented in this encounter Plan of Treatment Not on file documented as of this encounter Visit Diagnoses Not on filedocumented in this encounter Care Teams Etl Programmer Relationship Specialty Start Date End Date Watson Perry MD [address] [place] [phone] PCP - General 12/03/19 documented as of this encounter
--- OUTSIDE RECORDS SUMMARY | 2024-11-23 18:07 | XMS_ITS | Encounter Summary ---
Author Organization [facility] Address [address] [place] [address] Care Team Providers Care Feather Boner Name Role Phone Watson Perry MD Primary Care Provider [phone] Reason for Referral * Radiology Services (Routine) - Closed Specialty Diagnoses / Procedures Referred By Contac t Referred To Contact Radiology Diagnoses Thickened endometrium Postmenopausal bleeding Retroperitoneal lymphadenopathy Mesenteric lymphadenopathy Procedures PET CT SKULL TO MID THIGH Kelley Sanford MD [address] [address] Referral ID Status Reason Start Date Expiration Date Visits Re quested Visits Authorized [id number] Closed 12/18/2019 06/15/2020 1 1 EY WORKER Reason for Visit * Reason Onset Date Comments Future Appointment 12/18/2019 Imaging 12/18/2019 Encounter Details Date Type Department Care Team (Late st Contact Info) Description 12/18/2019 Telephone [facility] Obstetrics Gynecology and Women's Health [address] [place] [address] Kelley Sanford MD [address] [address] Future Appointment; Imaging Social History [...] Instructions* Kiah Dejesus - 12/19/2019 2:42 PM PULLEY WORKER Pt returning call EY WORKER documented in this encounter Miscellaneous Notes * Telephone Encounter - Leanne Shell RN - 12/19/2019 2:58 PM CST Called patient and appt info and instructions given Patient verbalized understanding EY WORKER * Telephone Encounter - Leanne Shell RN - 12/19/2019 11:26 AM PULLEY WORKER Left message EY WORKER * Telephone Encounter - Leanne Shell RN - 12/18/2019 3:20 PM CST PET Scan scheduled at [address] ??[address] Sunday, 12/30 @ 2:30pm [...] HARD CANDY the day of the test. EY WORKER documented in this encounter Plan of Treatment Not on file documented as of this encounter Results * PET CT SKULL TO MID THIGH (12/30/2019 2:54 PM PULLEY WORKER) Anatomical Region Laterality Modality Head, Lower Extremity Nuclear Me dicine 12/31/2019 9:20 AM PULLEY WORKER Addenda Addendum by Adri Van DO on 12/31/2019 10:44 AM PULLEY WORKER In addition to the impression, there is somewhat dense breast tissue bilaterally with mild FDG uptake as well as a moderately FDG avid 1.2 cm left axillary node. Findings may be reactive but malignancy is not excluded. Recommend further evaluation with mammography if not already performed. Addending Radiologist: Adri Van MD on 12/31/2019 at 10:41 AM Impressions 12/31/2019 10:05 AM PULLEY WORKER 1. Enlarged uterus with intense FDG uptake [...] at 10:05 AM Narrative 12/31/2019 10:05 AM PULLEY WORKER Procedure: PET/CT study Referring physician: Dr. Sanford [...] 12/31/2019 Procedure: PET/CT study Referring physician: Dr. Sanofrd HISTORY: 69-year-old female with postmenopausal bleeding with [...] nodes documented in this encounter Care Teams Feather Boner Relationship Specialty Start Date End Date Watson Perry MD [address] [place] [phone] PCP - General 12/03/19 documented as of this encounter
--- OUTSIDE RECORDS SUMMARY | 2024-11-23 18:07 | XMS_ITS | Encounter Summary ---
Author Organization [facility] Address [address] [place] [address] Care Team Providers Care Pickle Cutter Name Role Phone Watson Perry MD Primary Care Provider [phone] Reason for Visit * Reason Comments Ultrasound Encounter Details Date Type Department Care Team (Latest Contact Info) Description 05/13/2020 11:00 AM CDT Procedure visit [facility] Obstetrics Gynecology and Women's Health [address] [place] [address] Postmenopausal bleeding ; Simple endometrial hyperplasia; Endometrial [...] CDTAssociated Order(s): PROC US ECHOGRAPHY TRANSVAGINAL Procedure(s): OK SONO EXAM, TRANSVAGINAL Pre-Procedure Diagnose(s): Simple endometrial hyperplasia; Postmenopausal bleeding; Endometrial polyp Documentation in digisonics. documented in this encounter Plan of Treatment Not on file documented as of this encounter Procedures Procedure Name Priority Date/Time Associated Diagnosis Comments IMAGING/RADIOLOGY/XRA Y RESULTS ORDER 05/14/2020 7:00 AM CDT OK SONO EXAM, TRANSVAGINAL Routine 05/13/2020 11:05 AM CDT Simple endometrial hyperplasia Postmenopausal bleeding documented in this encounter Results * IMAGING RADIOLOGY XRAY RESULTS ORDER (05/14/2020 7:00 AM CDT) Anatomical Region Laterality Modality Other Narrative 05/14/2020 7:00 AM CDT Ordered by an unspecified provider. Scanned Document IMAGING * OK SONO EXAM, TRANSVAGINAL (05/13/2020 11:05 AM CDT) Narrative Leanne Levy - 05/13/2020 11:05 AM CDT Leanne Levy ? 05/13/2020 11:05 AM Documentation in digisonics. Kelley Sanford MD PROCEDURE/MINOR MAJOR RGICAL ORDERABLES documented in this encounter Visit Diagnoses Diagnosis Postmenopausal bleeding- Primary Simple endometrial hyperplasia Endometrial hyperplasia, unspecified Endometrial polyp Polyp of corpus uteri documented in this encounter Care Teams Pickle Cutter Relationship Specialty Start Date End Date Watson Perry MD [address] [place] [phone] PCP - General 12/03/19 documented as of this encounter
--- OUTSIDE RECORDS SUMMARY | 2024-11-23 18:07 | XMS_ITS | Encounter Summary ---
Author Organization [facility] Address [address] [facility] [place] [address] Care Team Providers Care Reconciliation Clerk Name Role Phone Unknown, Provider Primary Care Provider Unavaila ble Encounter Details Date Type Department Care Team (Latest Contact Info) Description 05/11/2010 10:39 AM CDT - 05/11/2010 11:59 PM CDT Hospital Encounter [facility] [address] [place] [address] Unknown, Provider ABR Sedation Discharge Disposition: Home [...] CDT) PT 9.6 9.4 - 11.4 seconds [facility] INR 0.91 SEE BELOW [facility] Comment: Conventional anticoagulation ?? 2.0-3.0 Intensive anticoagulation ?? 2.5-3.5 PTT 26.9 24.0 - 33.0 seconds [facility] BLOOD SPECIMEN / Unknown 05/11/2010 11:04 AM CDT 05/11/2010 11:04 AM CDT Provider Unknown LAB - COAGULATION OR DERABLES Performing Organization Address [facility] de Phone Number [facility] [address] [place] [phone] * BASIC METABOLIC PANEL (CALCIUM TOTAL) (05/11/2010 11:04 AM CDT) Sodium 143 137 - 145 mmol/L [facility] Potassium 4.5 3.6 - 5.0 mmol/L [facility] Chloride 106 98 - 107 mmol/L [facility] BUN 9 7 - 17 mg/dl [facility] Creatinine 0.82 0.52 - 1.04 mg/dl [facility] Glucose 101 65 - 105 mg/dl [facility] CO2 28 22 - 30 mmol/L [facility] Calcium 10.2 8.4 - 10.2 mg/dl [facility] eGFR by MDRD 72 >60 mL/min/1.7 3m2 [facility] Comment eGFR [facility] Comment: ? The eGFR does not apply to patients who are younger than ? 18 or older than 70. BLOOD SPECIMEN / Unknown 05/11/2010 11:04 AM CDT 05/11/2010 11:04 AM CDT Provider Unknown LAB - CHEMISTRY [place] Performing Organization Address [facility] de Phone Number [facility] [address] [place] [phone] * (ABNORMAL) CBC W AUTO DIFFERENTIAL (05/11/2010 11:04 AM CDT) WBC 11.5(H) 4.0 - 10.0 K/CUM[facility] RBC 4.83 3.80 - 5.80 M/[facility] Hemoglobin 14.7 12.0 - 16.0 gm/dl [facility] Hematocrit 42.9 37.0 - 47.0 % [facility] MCV 88.8 80.0 - 100.0 fl [...] Normal Morphology [facility] Cells Counted 100 [facility] Comment SMEAR REVIEW COMPLETED [facility] BLOOD SPECIMEN / Unknown 05/11/2010 11:04 AM CDT 05/11/2010 11:04 AM CDT Provider Unknown LAB - HEMATOLOGY ORD ERABLES Performing Organization Address City/State/[facility] Co de Phone Number [facility] [address] [place] [address] * EKG 12-LEAD (05/11/2010) Ahsan Mccullough MD ECG ORDERABLES documented in this encounter Visit Diagnoses Diagnosis Carcinoma (HCC) Other malignant neoplasm without specification of site documented in this encounter Care Teams Reconciliation Clerk Relationship Specialty Start Date End Date Unknown, Provider PCP - General 05/11/10 05/11/10 documented as of this encounter
--- OUTSIDE RECORDS SUMMARY | 2024-11-23 18:07 | XMS_ITS | Encounter Summary ---
Author Organization [facility] Address [address] [facility] [place] [address] Care Team Providers Care Quality Assurance Director Name Role Phone Watson Perry MD Primary Care Provider [phone] Reason for Visit * Auth/Cert Specialty Diagnoses / Procedures Referred By Contac t Referred To Contact Diagnoses Diagnosis unknown Diagnosis unknown [R69] Procedures HYSTEROSCOPY WITH DILATION & CURETTAGE Referral ID Status Reason Start Date Expiration Date Visits Re quested Visits Authorized [id number] 1 1 Encounter Details Date Type Department Care Team (Late st Contact Info) Description 05/31/2020 10:38 AM CDT Anesthesia Event [facility] [address] [place] [address] Renny Dee DO [address] [facility] [place] [address] Pollo Daniel APRN-OPERATING ROOM SURGICAL TECHNICIAN Anesthesia Record Procedure Summary Procedure Name Responsible [...] Improvement Section (otherwise blank): * Nu Livingston APRN-OPERATING ROOM SURGICAL TECHNICIAN - 05/31/2020 10:12 AM CDT ANESTHESIA PREOPERATIVE [...] Plan was discussed with the anesthesiologist and OPERATING ROOM SURGICAL TECHNICIAN. BMI, Height, Weight Tobacco History Estimated body [...] Anesthesia Transfer of Care - Pollo Daniel, WHEEL POLISHER-OPERATING ROOM SURGICAL TECHNICIAN - 05/31/2020 11:22 AM CDT ANESTHESIA TRANSFER [...] mL/hr documented in this encounter Care Teams Quality Assurance Director Relationship Specialty Start Date End Date Watson Perry MD [address] [place] [phone] PCP - General 12/03/19 documented as of this encounter
--- OUTSIDE RECORDS SUMMARY | 2024-11-23 18:07 | XMS_ITS | Encounter Summary ---
Author Organization [facility] Address [address] [facility] [address] Care Team Providers Care Base Engineer Name Role Phone Watson Perry MD Primary Care Provider [phone] Reason for Visit * Radiology Services (Routine) - Closed Specialty Diagnoses / Procedures Referred By Contac t Referred To Contact Radiology Diagnoses Thickened endometrium Postmenopausal bleeding Retroperitoneal lymphadenopathy Mesenteric lymphadenopathy Procedures PET CT SKULL TO MID THIGH Kelley Sanford MD [address] [address] [place] [address] Referral ID Status Reason Start Date Expiration Date Visits Re quested Visits Authorized [id number] Closed 12/18/2019 06/15/2020 1 1 Encounter Details Date Type Department Care Team (Latest Contact Info) Description 12/30/2019 1:48 PM TECHNICAL SERVICE SPECIALIST - 12/30/2019 11:59 PM [facility] Hospital Encounter [facility] - PET Scan [address] [place] [address] [address] [place], [place] [id number] Kelley Sanford MD [address] [employer] [address] [place] [address] Discharge Disposition: Home or Self [...] (one) tablet by mouth daily with food Spurgeon-3 Fatty Acids (FISH OIL PO) Take 1,000 [...] TO MID THIGH Routine 12/30/2019 2:54 PM TECHNICAL SERVICE SPECIALIST Thickened endometrium Postmenopausal bleeding Retroperitoneal lymphadenopathy Mesenteric lymphadenopathy documented in this encounter Results * PET CT SKULL TO MID THIGH (12/30/2019 2:54 PM TECHNICAL SERVICE SPECIALIST) Anatomical Region Laterality Modality Head, Lower Extremity Nuclear Me dicine 12/31/2019 9:20 AM TECHNICAL SERVICE SPECIALIST Addenda Addendum by Adri Van DO on 12/31/2019 10:44 AM TECHNICAL SERVICE SPECIALIST In addition to the impression, there is somewhat dense breast tissue bilaterally with mild FDG uptake as well as a moderately FDG avid 1.2 cm left axillary node. Findings may be reactive but malignancy is not excluded. Recommend further evaluation with mammography if not already performed. Addending Radiologist: Adri Van MD on 12/31/2019 at 10:41 AM Impressions 12/31/2019 10:05 AM TECHNICAL SERVICE SPECIALIST 1. Enlarged uterus with intense FDG uptake [...] at 10:05 AM Narrative 12/31/2019 10:05 AM TECHNICAL SERVICE SPECIALIST Procedure: PET/CT study Referring physician: Dr. Sanford [...] nodes documented in this encounter Care Teams Base Engineer Relationship Specialty Start Date End Date Watson Perry MD [address] [place] [phone] PCP - General 12/03/19 documented as of this encounter
--- OUTSIDE RECORDS SUMMARY | 2024-11-23 18:07 | XMS_ITS | Encounter Summary ---
Author Organization [facility] Address [address] [facility] [place] [address] Care Team Providers Care Manager Harbor Name Role Phone Watson Perry MD Primary Care Provider [phone] Reason for Visit * Reason Onset Date Comments Future Appointment 01/02/2020 Encounter Details Date Type Department Care Team (Late st Contact Info) Description 01/02/2020 Telephone [facility] Obstetrics Gynecology and Women's Health [address] [place] [address] Kelley Sanford MD [address] [facility] [address] [place], [place] [phone] Future Appointment Social History Tobacco Use Types [...] Leanne Shell RN - 01/08/2020 11:23 AM INSTRUMENT/CONTROL TECHNICIAN Tried to call patient again- left appt details on vm RUMENT/CONTROL TECHNICIAN * Telephone Encounter - Leanne Shell RN - 01/05/2020 10:50 AM INSTRUMENT/CONTROL TECHNICIAN Left another message for patient. Appts not until March-so will try again RUMENT/CONTROL TECHNICIAN * Telephone Encounter - Leanne Shell RN - 01/02/2020 4:24 PM CST Can you please schedule for US and appt in 3 months. I placed order for US already US- , 04/01 @ 1pm OV- 04/01 @ 1:40pm RUMENT/CONTROL TECHNICIAN documented in this encounter Plan of Treatment Not on file documented as of this encounter Visit Diagnoses Not on filedocumented in this encounter Care Teams Manager Harbor Relationship Specialty Start Date End Date Watson Perry MD [address] [place] [phone] PCP - General 12/03/19 documented as of this encounter
--- OUTSIDE RECORDS SUMMARY | 2024-11-23 18:09 | XMS_ITS | Encounter Summary ---
Author Organization [facility] Care Team Providers Care Senior Product Analyst Name Role Phone Watson Perry MD Primary Care Provider [phone] Adeel Covarrubias MD Unavailable [phone] Encounter Details Date Type Department Care Team [...] on file Legal Sex Female 9:54 AM SENIOR HUMAN RESOURCES REPRESENTATIVE Gender Identity Not on file Sexual Orientation Not on file documented as of this encounter Plan of Treatment Upcoming Encounters Date Type Department Care Team (Late st Contact Info) Description 12/18/2024 2:15 PM SENIOR HUMAN RESOURCES REPRESENTATIVE Office [facility] - [facility] [address] [place] [address] Adeel Covarrubias MD [address] [place] [address] documented as of this encounter Visit Diagnoses Not on filedocumented in this encounter Care Teams Senior Product Analyst Relationship Specialty Start Date End Date Watson Perry MD [address] [place] [phone] PCP - General Family Medicine 01/25/18 Adeel Covarrubias MD [address] [place] [address] Consulting Physician Neurology 03/07/22 documented as of this encounter
--- OUTSIDE RECORDS SUMMARY | 2024-11-23 18:09 | XMS_ITS | Encounter Summary ---
Author Organization [facility] Address [address] [place] [address] Phone Care Team Providers Care Consolidator Name Role Phone Watson Perry MD Primary Care Provider [phone] Adeel Covarrubias MD Unavailable [phone] Reason for Visit * Auth/Cert (Routine) Specialty Diagnoses / Procedures Referred By Contac t Referred To Contact Referral ID Status Reason Start Date Expiration Date Visits Re quested Visits Authorized [id number] 1 1 Encounter Details Date Type Department Care Team (Late st Contact Info) Description 03/21/2024 10:00 AM CDT [facility] [address] [place] [address] Katlin Whelan, COMPACT ASSEMBLER [place] PT - HOME VISIT Social History [...] on file Legal Sex Female 9:54 AM BIOFUELS PROCESSING TECHNICIAN Gender Identity Not on file Sexual [...] st Contact Info) Description 12/18/2024 2:15 PM BIOFUELS PROCESSING TECHNICIAN Office Visit [facility] - Neurology - [place] [address] [place] [address] Adeel Covarrubias MD [address] [place] [address] documented as of this encounter Visit Diagnoses [...] 03/05/2024 Active - 1 problem intervention scheduled/documen zne in this visit PHYSICAL THERAPY EVALUATION (O) [...] goals the following were identified: Patient centered terminal block assembler goal: to improve balance. Target Date: by [...] to [facility] after hospitalization at [facility] from 02/18/24-02/23/24 with c/o R knee [...] required. documented in this encounter Care Teams Consolidator Relationship Specialty Start Date End Date Watson Perry MD [address] [place] [phone] PCP - General Family Medicine 01/25/18 Adeel Covarrubias MD [address] [place] [address] Consulting Physician Neurology 03/07/22 documented as of this encounter
--- OUTSIDE RECORDS SUMMARY | 2024-11-23 18:09 | XMS_ITS | Encounter Summary ---
Author Organization [facility] Address [address] [place] [address] Phone Care Team Providers Care Supply Chain Vice President Name Role Phone Watson Perry MD Primary Care Provider [phone] Adeel Covarrubias MD Unavailable [phone] Reason for Visit * Auth/Cert (Routine) Specialty Diagnoses / Procedures Referred By Contac t Referred To Contact Referral ID Status Reason Start Date Expiration Date Visits Re quested Visits Authorized [id number] 1 1 Encounter Details Date Type Department Care Team (Latest Contact Info) Description 03/28/2024 10:30 AM CDT [facility] [address] [place] [address] Fartun Burrell, PT [place] PT - [place] [...] on file Legal Sex Female 9:54 AM UPS DRIVER Gender Identity Not on file Sexual Orientation [...] st Contact Info) Description 12/18/2024 2:15 PM UPS DRIVER Office Visit [facility] - Neurology - [place] [address] [place] [address] Adeel Covarrubias MD [address] [place] [address] documented as of this encounter Visit Diagnoses Not on filedocumented in this encounter Home Health Visit - Care Plan Visit Details Visit Type -PT - OASIS DISCH ARGE Discipline -Physical Therapy Problems Problem Description Start Date Status Goals Interve ntions FALL PREVENTION (O) Disciplines: SN, PT, OT, PIPEMAN, HCA, MUD ANALYSIS WELL LOGGING CAPTAIN, RT 03/05/2024 Resolved on 03/28/2024 1 goal [...] goals the following were identified: Patient centered exterminator helper termite goal: to improve balance. Target Date: by [...] met documented in this encounter Care Teams Supply Chain Vice President Relationship Specialty Start Date End Date Watson Perry MD [address] [place] [phone] PCP - General Family Medicine 01/25/18 Adeel Covarrubias MD [address] [place] [address] Consulting Physician Neurology 03/07/22 documented as of this encounter
--- OUTSIDE RECORDS SUMMARY | 2024-11-23 18:09 | XMS_ITS | Encounter Summary ---
Author Organization [facility] Care Team Providers Care Twisting Frame Fixer Name Role Phone Watson Perry MD Primary Care Provider [phone] Adeel Covarrubias MD Unavailable [phone] Encounter Details Date Type Department Care Team [...] on file Legal Sex Female 9:54 AM TIME STUDY OBSERVER Gender Identity Not on file Sexual Orientation Not on file documented as of this encounter Plan of Treatment Upcoming Encounters Date Type Department Care Team (Late st Contact Info) Description 12/18/2024 2:15 PM TIME STUDY OBSERVER [facility] [address] [place] [address] Adeel Covarrubias MD [address] [place] [address] documented as of this encounter Visit Diagnoses Not on filedocumented in this encounter Care Teams Twisting Frame Fixer Relationship Specialty Start Date End Date Watson Perry MD [address] [place] [phone] PCP - General Family Medicine 01/25/18 Adeel Covarrubias MD [address] [place] [address] Consulting Physician Neurology 03/07/22 documented as of this encounter
--- OUTSIDE RECORDS SUMMARY | 2024-11-23 18:09 | XMS_ITS | Encounter Summary ---
Author Organization [facility] Address [address] [place] [address] Phone Care Team Providers Care Client Sales And Service Officer Name Role Phone Watson Coleman MD Primary Care Provider [phone] Nicholas Wise MD Unavailable [phone] Reason for Visit * Reason Comments Tremors Encounter Details Date Type Department Care Team (Late st Contact Info) Description 09/02/2024 2:15 PM CDT Office Visit [facility] - [facility] [address] [place] [address] Nicholas Wise MD [address] [place] [address] Parkinsonian tremor (HCC) (Primary Dx); [...] on file Legal Sex Female 9:54 AM PATTERN ASSEMBLER Gender Identity Not on file Sexual [...] every morning (before breakfast)., Disp: , Rfl: Dfcjysbhnlp-Preqfbjpy-Hyjfln (TRELEGY ELLIPTA IN), take 1 Puff by [...] % by mouth daily., Disp: , Rfl: [place]-3 Fatty Acids (FISH OIL PO), Take 2 [...] Flexors 5/5 5/5 Wrist Extensors 5/5 5/5 Clerk Specialist 5/5 5/5 Hip Flexors 5/5 5/5 Quadriceps [...] st Contact Info) Description 12/18/2024 2:15 PM PATTERN ASSEMBLER [facility] [place] [facility] [address] [place] [address] Nicholas Wise MD [address] [place] [address] documented as of this encounter Visit Diagnoses Diagnosis Parkinsonian tremor (HCC)- Primary Paralysis agitans Essential tremor Essential and other specified forms of tremor documented in this encounter Care Teams Client Sales And Service Officer Relationship Specialty Start Date End Date Watson Coleman MD [address] [place] [address] PCP - General Family Medicine 01/25/18 Nicholas Wise MD [address] [place] [address] Consulting Physician Neurology 03/07/22 documented as of this encounter
--- OUTSIDE RECORDS SUMMARY | 2024-11-23 18:09 | XMS_ITS | Encounter Summary ---
Author Organization [facility] Care Team Providers Care Graduate Assistant Athletic Trainer Name Role Phone Watson Perry MD Primary Care Provider [phone] Adeel Covarrubias MD Unavailable [phone] Encounter Details Date Type Department Care Team [...] on file Legal Sex Female 9:54 AM VOICE ENGINEER Gender Identity Not on file Sexual Orientation Not on file documented as of this encounter Plan of Treatment Upcoming Encounters Date Type Department Care Team (Late st Contact Info) Description 12/18/2024 2:15 PM VOICE ENGINEER Office Visit [facility] - Neurology [facility] [address] [place] [address] Adeel Covarrubias MD [address] [place] [address] documented as of this encounter Visit Diagnoses Not on filedocumented in this encounter Care Teams Graduate Assistant Athletic Trainer Relationship Specialty Start Date End Date Watson Perry MD [address] [place] [address] PCP - General Family Medicine 01/25/18 Adeel Covarrubias MD [address] [place] [address] Consulting Physician Neurology 03/07/22 documented as of this encounter
--- OUTSIDE RECORDS SUMMARY | 2024-11-23 18:09 | XMS_ITS | Encounter Summary ---
Author Organization [facility] Address [address] [place] [address] Phone Care Team Providers Care Automatic Splicing Machine Operator Name Role Phone Watson Perry MD Primary Care Provider [phone] Adeel Covarrubias MD Unavailable [phone] Reason for Visit * Auth/Cert (Routine) Specialty Diagnoses / Procedures Referred By Contac t Referred To Contact Referral ID Status Reason Start Date Expiration Date Visits Re quested Visits Authorized [id number] 1 1 Encounter Details Date Type Department Care Team (Late Contact Info) Description 03/24/2024 Home Care Visit [facility] [address] [place] [address] Fartun Burrell, PT [place] CASE COMMUNICATION Social History Tobacco Use Types [...] on file Legal Sex Female 9:54 AM COLOR MAKING SUPERVISOR Gender Identity Not on file Sexual Orientation Not on file documented as of this encounter Plan of Treatment Upcoming Encounters Date Type Department Care Team (Late Contact Info) Description 12/18/2024 2:15 PM COLOR MAKING SUPERVISOR [facility] [address] [place] [address] Adeel Covarrubias MD [address] [place] [address] documented as of this encounter Visit Diagnoses Not on filedocumented in this encounter Care Teams Automatic Splicing Machine Operator Relationship Specialty Start Date End Date Watson Perry MD [address] [place] [address] PCP - General Family Medicine 01/25/18 Adeel Covarrubias MD [address] [place] [address] Consulting Physician Neurology 03/07/22 documented as of this encounter
--- OUTSIDE RECORDS SUMMARY | 2024-11-23 18:09 | XMS_ITS | Encounter Summary ---
Author Organization [facility] Care Team Providers Care Photogravure Press Operator Name Role Phone Watson Perry MD Primary Care Provider [phone] Adeel Covarrubias MD Unavailable [phone] Encounter Details Date Type Department Care Team [...] on file Legal Sex Female 9:54 AM DYE AND CHEMICAL COORDINATOR Gender Identity Not on file Sexual Orientation Not on file documented as of this encounter Plan of Treatment Upcoming Encounters Date Type Department Care Team (Late st Contact Info) Description 12/18/2024 2:15 PM DYE AND CHEMICAL COORDINATOR Office Visit [facility] - Neurology [facility] [address] [place] [address] Adeel Covarrubias MD [address] [place] [address] documented as of this encounter Visit Diagnoses Not on filedocumented in this encounter Care Teams Photogravure Press Operator Relationship Specialty Start Date End Date Watson Perry MD [address] [place] [address] PCP - General Family Medicine 01/25/18 Adeel Covarrubias MD [address] [place] [address] Consulting Physician Neurology 03/07/22 documented as of this encounter
--- OUTSIDE RECORDS SUMMARY | 2024-11-23 18:09 | XMS_ITS | Encounter Summary ---
Author Organization [facility] Address [address] [place] [address] Phone Care Team Providers Care Adoption Services Manager Name Role Phone Watson Perry MD Primary Care Provider [phone] Adeel Covarrubias MD Unavailable [phone] Reason for Visit * Auth/Cert (Routine) Specialty Diagnoses / Procedures Referred By Contac t Referred To Contact Referral ID Status Reason Start Date Expiration Date Visits Re quested Visits Authorized [id number] 1 1 Encounter Details Date Type Department Care Team (Latest Contact Info) Description 03/24/2024 3:00 PM CDT [facility] [address] [place], [place] [phone] Meenakshi Gilbert OTA CT OT - DISCIPLINE DISCHARGE Social History Tobacco [...] on file Legal Sex Female 9:54 AM ELEVATOR SUPERVISOR Gender Identity Not on file Sexual [...] st Contact Info) Description 12/18/2024 2:15 PM ELEVATOR SUPERVISOR [facility] [place] [address] [place] [address] Adeel Covarrubias MD [address] [place] [address] documented as of this encounter Visit Diagnoses [...] goals the following were identified. Patient Centered Sock And Stocking Ironer Goal: to get stronger Target date: within 6 weeks OCCUPATIONAL THERAPY GENERAL ORDER (O) No OT Assessment Tools Description: Short Term Goal: Patient will demonstrate improvement in Dane Index by 5+ points to increase their ability to care for themselves at home. To be met by 03/21/24. Mcc Goal: Patient will demonstrate improvement in Dane Index by 10+ points to increase their ability to care for themselves at home. To be met by 03/28/24. OT COMPREHENSIVE Therapy: Goal met Yes OT Meal Prep Description: Sock And Stocking Ironer Goal: Patient will complete meal preparation/functional kitchen [...] Therapy: Goal met Yes OT Dressing Description: Sock And Stocking Ironer Goal: Patient will perform/simulate dry run/demonstrate prn complete total body dressing with recommended adap equip/tech/DME prn with independence and good understanding of safety/technique. To be met by 03/28/24 OT COMPREHENSIVE Therapy: Goal met Yes OT Bathing Description: Sock And Stocking Ironer Goal: Patient will perform/simulate dry run/demonstrate prn [...] of safety/technique. To be met by 03/21/24. Sock And Stocking Ironer Goal: Patient will improve dynamic standing balance [...] functional independence. to be met by 03/21/24 termite treater goal: Patient will complete tub/shower, chair, toilet [...] of safety/technique. To be met by 03/21/24. Mcc Goal: Patient and Caregiver will perform B [...] (Order Only) Description: Pt was hospitalized at [facility] from 02/18/24-02/23/24 with c/o [...] PRN documented in this encounter Care Teams Adoption Services Manager Relationship Specialty Start Date End Date Watson Perry MD [address] [place] [address] PCP - General Family Medicine 01/25/18 Adeel Covarrubias MD [address] [place] [address] Consulting Physician Neurology 03/07/22 documented as of this encounter
--- OUTSIDE RECORDS SUMMARY | 2024-11-23 18:09 | XMS_ITS | Encounter Summary ---
Author Organization [facility] Care Team Providers Care Investment Fund Manager Name Role Phone Watson Perry MD Primary Care Provider [phone] Adeel Covarrubias MD Unavailable [phone] Encounter Details Date Type Department Care Team [...] on file Legal Sex Female 9:54 AM DIGITAL ASSOCIATE Gender Identity Not on file Sexual Orientation Not on file documented as of this encounter Plan of Treatment Upcoming Encounters Date Type Department Care Team (Late st Contact Info) Description 12/18/2024 2:15 PM DIGITAL ASSOCIATE Office Visit [facility] - Neurology [facility] [address] [place] [address] Adeel Covarrubias MD [address] [place] [address] documented as of this encounter Visit Diagnoses Not on filedocumented in this encounter Care Teams Investment Fund Manager Relationship Specialty Start Date End Date Watson Perry MD [address] [place] [address] PCP - General Family Medicine 01/25/18 Adeel Covarrubias MD [address] [place] [address] Consulting Physician Neurology 03/07/22 documented as of this encounter
--- OUTSIDE RECORDS SUMMARY | 2024-11-23 18:09 | XMS_ITS | Encounter Summary ---
Author Organization [facility] Address [address] [place] [address] Phone Care Team Providers Care Copier Operator Name Role Phone Watson Perry MD Primary Care Provider [phone] Adeel Covarrubias MD Unavailable [phone] Reason for Visit * Reason Comments Medication Refill Encounter Details Date Type Department Care Team (Late st Contact Info) Description 10/26/2024 Refill [facility] [address] [place] [address] Adeel Covarrubias MD [address] [place] [address] Medication Refill Social History Tobacco [...] on file Legal Sex Female 9:54 AM SILVER DESIGNER Gender Identity Not on file Sexual Orientation Not on file documented as of this encounter Miscellaneous Notes * Telephone Encounter - Fartun Bonilla RN - 10/27/2024 9:22 AM CST Medication(s) refilled and signed per [facility] Chronic Medication Refill Standing Order for Pediatricand [...] Dept 09/02/24 Office Visit Adeel Covarrubias MD [facility] [address] Neurology [facility] Showing recent visits within past 270 days and meeting all other requirements Future Appointments Date Type Provider Dept 12/18/24 Appointment Adeel Covarrubias MD [facility] [address] Neurology [facility] Showing future appointments within next 90 days and meeting all other requirements Passed - Blood pressure on record in past 12 months Clinician-entered: BP Readings from Last 3 Encounters: 09/02/24 122/84 03/28/24 106/58 03/25/24 104/64 Patient-entered: No data recorded ER DESIGNER documented in this encounter Plan of Treatment Upcoming Encounters Date Type Department Care Team (Late st Contact Info) Description 12/18/2024 2:15 PM SILVER DESIGNER Office Visit [facility] - [facility] [address] [place] [address] Adeel Covarrubias MD [address] [place] [address] documented as of this encounter Visit Diagnoses Not on filedocumented in this encounter Care Teams Copier Operator Relationship Specialty Start Date End Date Watson Perry MD [address] [place] [address] PCP - General Family Medicine 01/25/18 Adeel Covarrubias MD [address] [place] [address] Consulting Physician Neurology 03/07/22 documented as of this encounter
--- OUTSIDE RECORDS SUMMARY | 2024-11-23 18:09 | XMS_ITS | Clinical Summary ---
Author Organization [facility] Address [address] [facility] [place] [address] Phone Care Team Providers Care Apparel Manufacture Instructor Name Role Phone Watson Perry MD Primary Care Provider [phone] Adeel Covarrubias MD Unavailable [phone] Allergies Active Allergy Reactions Criticality Noted Date Comments Ibuprofen Rash Medium 02/01/2018 Medications citalopram (CELEXA) 20 MG Tablet Take 20 mg by mouth daily. Active esomeprazole (NEXIUM) 20 MG CAPSULE DELAYED RELEASE Take 20 mg by mouth every morning (before breakfast). Active rosuvastatin (CRESTOR) 10 MG Tablet Take 10 mg by mouth nightly. 02/27/20 18 Active [place]-3 Fatty Acids (FISH OIL PO) Take 2 [...] Type Department Care Team Description 10/26/2024 Refill [facility] [address] [place] [address] Adeel Covarrubias MD Medication Refill 09/02/2024 2:15 PM CDT Office Visit [facility] [address] [place] [address] Adeel Covarrubias MD Parkinsonian tremor (HCC) (Primary [...] file Legal Sex Female 9:54 AM MARINE MACHINIST Gender Identity Not on file Sexual Orientation [...] Contact Info) Description 12/18/2024 2:15 PM MARINE MACHINIST Office Visit [facility] [address] [place] [address] Adeel Covarrubias MD [address] [place] [address] Health Maintenance Due Date Last [...] measures to stabilize the patient. Care Teams Apparel Manufacture Instructor Relationship Specialty Start Date End Date Watson Perry MD [address] [place] [address] PCP - General Family Medicine 01/25/18 Adeel Covarrubias MD [address] [place] [address] Consulting Physician Neurology 03/07/22
--- OUTSIDE RECORDS SUMMARY | 2024-11-23 18:09 | XMS_ITS | Encounter Summary ---
Author Organization [facility] Care Team Providers Care Hedis Analyst Name Role Phone Watson Perry MD Primary Care Provider [phone] Adeel Covarrubias MD Unavailable [phone] Encounter Details Date Type Department Care Team [...] on file Legal Sex Female 9:54 AM CLAIMS CONSULTANT Gender Identity Not on file Sexual Orientation Not on file documented as of this encounter Plan of Treatment Upcoming Encounters Date Type Department Care Team (Late st Contact Info) Description 12/18/2024 2:15 PM CLAIMS CONSULTANT Office Visit [facility] - Neurology [facility] [address] [place] [address] Adeel Covarrubias MD [address] [place] [address] documented as of this encounter Visit Diagnoses Not on filedocumented in this encounter Care Teams Hedis Analyst Relationship Specialty Start Date End Date Watson Perry MD [address] [place] [address] PCP - General Family Medicine 01/25/18 Adeel Covarrubias MD [address] [place] [address] Consulting Physician Neurology 03/07/22 documented as of this encounter
--- OUTSIDE RECORDS SUMMARY | 2024-11-23 18:09 | XMS_ITS | Encounter Summary ---
Author Organization [facility] Address [address] [place] [address] Phone Care Team Providers Care Implementation Consultant Name Role Phone Watson Perry MD Primary Care Provider [phone] Adeel Covarrubias MD Unavailable [phone] Reason for Visit * Reason Comments Medication Refill Encounter Details Date Type Department Care Team (Late st Contact Info) Description 06/11/2024 Refill [facility] [address] [place] [address] Adeel Covarrubias MD [address] [place] [address] Medication Refill Social History [...] on file Legal Sex Female 9:54 AM MIGRATORY GAME BIRD BIOLOGIST Gender Identity Not on file Sexual Orientation [...] 01/22/24 Office Visit Adeel Covarrubias MD [facility] Showing recent visits within past 365 days and meeting all other requirements Future Appointments Date Type Provider Dept 07/24/24 Appointment Adeel Covarrubias MD [facility] future appointments within next 90 days and meeting all other requirements documented in this encounter Plan of Treatment Upcoming Encounters Date Type Department Care Team (Late st Contact Info) Description 12/18/2024 2:15 PM MIGRATORY GAME BIRD BIOLOGIST Office Visit [facility] [address] [place] [address] Adeel Covarrubias MD [address] [place] [address] documented as of this encounter Visit Diagnoses Diagnosis Essential tremor Essential and other specified forms of tremor documented in this encounter Care Teams Implementation Consultant Relationship Specialty Start Date End Date Watson Perry MD [address] [place] [address] PCP - General Family Medicine 01/25/18 Adeel Covarrubias MD [address] [place] [address] Consulting Physician Neurology 03/07/22 documented as of this encounter
--- OUTSIDE RECORDS SUMMARY | 2024-11-23 18:09 | XMS_ITS | Encounter Summary ---
Author Organization [facility] Address [address] [place] [address] Phone Care Team Providers Care Recycle Driver Name Role Phone Watson Perry MD Primary Care Provider [phone] Adeel Covarrubias MD Unavailable [phone] Reason for Visit * Auth/Cert (Routine) Specialty Diagnoses / Procedures Referred By Contac t Referred To Contact Referral ID Status Reason Start Date Expiration Date Visits Re quested Visits Authorized [id number] 1 1 Encounter Details Date Type Department Care Team (Late st Contact Info) Description 03/25/2024 10:00 AM CDT [facility] [address] [place] [address] Katlin Whelan, [place] PT - HOME VISIT Social History [...] on file Legal Sex Female 9:54 AM SCRUBBER OPERATOR Gender Identity Not on file Sexual [...] st Contact Info) Description 12/18/2024 2:15 PM SCRUBBER OPERATOR [facility] Visit [facility] - [facility] [address] [place] [address] Adeel Covarrubias MD [address] [place] [address] documented as of this encounter Visit Diagnoses [...] goals the following were identified: Patient centered detention goal: to improve balance. Target Date: by [...] to [facility] after hospitalization at [facility] from 02/18/24-02/23/24 with c/o R knee [...] understanding. documented in this encounter Care Teams Recycle Driver Relationship Specialty Start Date End Date Watson Perry MD [address] [place] [address] PCP - General Family Medicine 01/25/18 Adeel Covarrubias MD [address] [place] [address] Consulting Physician Neurology 03/07/22 documented as of this encounter
--- OUTSIDE RECORDS SUMMARY | 2024-11-23 18:09 | XMS_ITS | Encounter Summary ---
Author Organization [facility] Care Team Providers Care All Source Intelligence Analyst Name Role Phone Watson Perry MD Primary Care Provider [phone] Adeel Covarrubias MD Unavailable [phone] Encounter Details Date Type Department Care Team [...] on file Legal Sex Female 9:54 AM VESSEL OPERATOR Gender Identity Not on file Sexual Orientation Not on file documented as of this encounter Plan of Treatment Upcoming Encounters Date Type Department Care Team (Late st Contact Info) Description 12/18/2024 2:15 PM VESSEL OPERATOR Office Visit [facility] - Neurology [facility] [address] [place] [address] Adeel Covarrubias MD [address] [place] [address] documented as of this encounter Visit Diagnoses Not on filedocumented in this encounter Care Teams All Source Intelligence Analyst Relationship Specialty Start Date End Date Watson Perry MD [address] [place] [address] PCP - General Family Medicine 01/25/18 Adeel Covarrubias MD [address] [place] [address] Consulting Physician Neurology 03/07/22 documented as of this encounter
--- OUTSIDE RECORDS SUMMARY | 2024-11-23 18:09 | XMS_ITS | Encounter Summary ---
Author Organization [facility] Address [address] [place] [address] Phone Care Team Providers Care Salesperson Driver Name Role Phone Watson Perry MD Primary Care Provider [phone] Adeel Covarrubias MD Unavailable [phone] Reason for Visit * Auth/Cert (Routine) Specialty Diagnoses / Procedures Referred By Contac t Referred To Contact Referral ID Status Reason Start Date Expiration Date Visits Re quested Visits Authorized [id number] 1 1 Encounter Details Date Type Department Care Team (Late st Contact Info) Description 03/20/2024 9:00 AM CDT [facility] [address] [place] [address] Meenakshi Gilbert OTA [place] OT - HOME VISIT Social History Tobacco [...] on file Legal Sex Female 9:54 AM FOOTWEAR STITCHER Gender Identity Not on file Sexual Orientation [...] st Contact Info) Description 12/18/2024 2:15 PM FOOTWEAR STITCHER Office Visit [facility] [place] [address] [place] [address] Adeel Covarrubias MD [address] [place] [address] documented as of this encounter Visit Diagnoses [...] goals the following were identified. Patient Centered Set Designer Goal: to get stronger Target date: within 6 weeks OCCUPATIONAL THERAPY GENERAL ORDER (O) No OT Balance Description: Short Term Goal: Patient will improve dynamic standing balance from fair - to fair with recommended DME prn to perform ADLs, IADLs, mobilities with good understanding of safety/technique. To be met by 03/21/24. Set Designer Goal: Patient will improve dynamic standing balance [...] independence. to be met by 03/21/24 terminal superintendent goal: Patient will complete tub/shower, chair, toilet [...] (Order Only) Description: Pt was hospitalized at [facility] from 02/18/24-02/23/24 with c/o R knee [...] . documented in this encounter Care Teams Salesperson Driver Relationship Specialty Start Date End Date Watson Perry MD [address] [place] [address] PCP - General Family Medicine 01/25/18 Adeel Covarrubias MD [address] [place] [address] Consulting Physician Neurology 03/07/22 documented as of this encounter
--- OUTSIDE RECORDS SUMMARY | 2024-11-23 18:09 | XMS_ITS | Encounter Summary ---
Author Organization [facility] Address [address] [place] [address] Phone Care Team Providers Care Ticket Dispatcher Name Role Phone Watson Perry MD Primary Care Provider [phone] Adeel Covarrubias MD Unavailable [phone] Reason for Visit * Auth/Cert (Routine) Specialty Diagnoses / Procedures Referred By Contac t Referred To Contact Referral ID Status Reason Start Date Expiration Date Visits Re quested Visits Authorized [id number] 1 1 Encounter Details Date Type Department Care Team (Late Contact Info) Description 04/01/2024 Home Care Visit [address] [id number] Mariaelena Virk, OT OT - DISCHARGE SUMMARY [...] on file Legal Sex Female 9:54 AM LINUX SYSTEMS ANALYST Gender Identity Not on file Sexual Orientation Not on file documented as of this encounter Plan of Treatment Upcoming Encounters Date Type Department Care Team (Late Contact Info) Description 12/18/2024 2:15 PM LINUX SYSTEMS ANALYST [facility] [address] [place] [address] Adeel Covarrubias MD [address]2 [place] [address] documented as of this encounter Visit Diagnoses Not on filedocumented in this encounter Care Teams Ticket Dispatcher Relationship Specialty Start Date End Date Watson Perry MD [address] [place] [address] PCP - General Family Medicine 01/25/18 Adeel Covarrubias MD [address] [facility] [place] [address] Consulting Physician Neurology 03/07/22 documented as of this encounter
--- OUTSIDE RECORDS SUMMARY | 2024-11-23 18:10 | XMS_ITS | Encounter Summary ---
Author Organization [facility] Care Team Providers Care Patient Access Coordinator Name Role Phone Watson Perry MD Primary Care Provider [phone] Adeel Covarrubias MD Unavailable [phone] Encounter Details Date Type Department Care Team [...] on file Legal Sex Female 9:54 AM SADDLE LINING STITCHER Gender Identity Not on file Sexual Orientation Not on file documented as of this encounter Plan of Treatment Upcoming Encounters Date Type Department Care Team (Late st Contact Info) Description 12/18/2024 2:15 PM SADDLE LINING STITCHER Office Visit [facility] - Neurology [facility] [address] [place] [address] Adeel Covarrubias MD [address] [place] [address] documented as of this encounter Visit Diagnoses Not on filedocumented in this encounter Care Teams Patient Access Coordinator Relationship Specialty Start Date End Date Watson Perry MD [address] [place] [address] PCP - General Family Medicine 01/25/18 Adeel Covarrubias MD [address]2 [place] [address] Consulting Physician Neurology 03/07/22 documented as of this encounter
--- OUTSIDE RECORDS SUMMARY | 2024-11-23 18:10 | XMS_ITS | Encounter Summary ---
Author Organization [facility] Address [address] [place] [address] Phone Care Team Providers Care Granite Fabricator Name Role Phone Watson Perry MD Primary Care Provider [phone] Adeel Covarrubias MD Unavailable [phone] Reason for Visit * Auth/Cert (Routine) Specialty Diagnoses / Procedures Referred By Contac t Referred To Contact Referral ID Status Reason Start Date Expiration Date Visits Re quested Visits Authorized [id number] 1 1 Encounter Details Date Type Department Care Team (Late st Contact Info) Description 03/14/2024 9:00 AM CDT [facility] [address] [place] [address] Meenakshi Gilbert OTA CO OT - HOME VISIT Social History Tobacco [...] on file Legal Sex Female 9:54 AM HUMAN RESOURCES SERVICES SPECIALIST Gender Identity Not on file Sexual [...] st Contact Info) Description 12/18/2024 2:15 PM HUMAN RESOURCES SERVICES SPECIALIST Office Visit [facility] - [facility] - [place] [address] [place] [address] Adeel Covarrubias MD [address] [place] [address] documented as of this encounter Visit Diagnoses [...] goals the following were identified. Patient Centered Rn Invasive Goal: to get stronger Target date: within 6 weeks OCCUPATIONAL THERAPY GENERAL ORDER (O) No OT Meal Prep Description: Residential Goal: Patient will complete meal preparation/functional kitchen [...] 03/28/24. OT COMPREHENSIVE No OT Dressing Description: Rn Invasive Goal: Patient will perform/simulate dry run/demonstrate prn complete total body dressing with recommended adap equip/tech/DME prn with independence and good understanding of safety/technique. To be met by 03/28/24 OT COMPREHENSIVE No OT Bathing Description: Residential Goal: Patient will perform/simulate dry run/demonstrate prn [...] independence. to be met by 03/21/24 terminal makeup operator goal: Patient will complete tub/shower, chair, toilet [...] of safety/technique. To be met by 03/21/24. Residential Goal: Patient and Caregiver will perform B [...] (Order Only) Description: Pt was hospitalized at [facility] from 02/18/24-02/23/24 with c/o R knee [...] ongoing documented in this encounter Care Teams Granite Fabricator Relationship Specialty Start Date End Date Watson Perry MD [address] [place] [address] PCP - General Family Medicine 01/25/18 Adeel Covarrubias MD [address] [place] [address] Consulting Physician Neurology 03/07/22 documented as of this encounter
--- OUTSIDE RECORDS SUMMARY | 2024-11-23 18:10 | XMS_ITS | Encounter Summary ---
Author Organization [facility] Address [address] [place] [address] Phone Care Team Providers Care Inventory Control Manager Name Role Phone Watson Perry MD Primary Care Provider [phone] Adeel Covarrubias MD Unavailable [phone] Encounter Details Date Type Department Care Team (Late st Contact Info) Description 03/05/2024 Plan [facility] [address] [place], [place] [id number] Social History Tobacco Use Types Packs/Day Years [...] on file Legal Sex Female 9:54 AM ELEMENTARY EDUCATION TUTOR Gender Identity Not on file Sexual Orientation [...] st Contact Info) Description 12/18/2024 2:15 PM ELEMENTARY EDUCATION TUTOR [facility] [address] [place] [address] Adeel Covarrubias MD [address] [place] [address] documented as of this encounter Visit Diagnoses Not on filedocumented in this encounter Care Teams Inventory Control Manager Relationship Specialty Start Date End Date Watson Perry MD [address] [place] [address] PCP - General Family Medicine 01/25/18 Adeel Covarrubias MD [address] [place] [address] Consulting Physician Neurology 03/07/22 documented as of this encounter
--- OUTSIDE RECORDS SUMMARY | 2024-11-23 18:10 | XMS_ITS | Encounter Summary ---
Author Organization [facility] Care Team Providers Care Client Professional Name Role Phone Watson Perry MD Primary Care Provider [phone] Adeel Covarrubias MD Unavailable [phone] Encounter Details Date Type Department Care Team [...] on file Legal Sex Female 9:54 AM PAINTER ROUGH Gender Identity Not on file Sexual Orientation Not on file documented as of this encounter Plan of Treatment Upcoming Encounters Date Type Department Care Team (Late st Contact Info) Description 12/18/2024 2:15 PM PAINTER ROUGH Office Visit [facility] - Neurology [facility] [address] [place] [address] Adeel Covarrubias MD [address] [place] [address] documented as of this encounter Visit Diagnoses Not on filedocumented in this encounter Care Teams Client Professional Relationship Specialty Start Date End Date Watson Perry MD [address] [place] [address] PCP - General Family Medicine 01/25/18 Adeel Covarrubias MD [address] [place] [address] Consulting Physician Neurology 03/07/22 documented as of this encounter
--- OUTSIDE RECORDS SUMMARY | 2024-11-23 18:10 | XMS_ITS | Encounter Summary ---
Author Organization [facility] Address [address] [place] [address] Phone Care Team Providers Care Electrician Wiring Name Role Phone Watson Perry MD Primary Care Provider [phone] Adeel Covarrubias MD Unavailable [phone] Reason for Visit * Auth/Cert (Routine) Specialty Diagnoses / Procedures Referred By Contac t Referred To Contact Referral ID Status Reason Start Date Expiration Date Visits Re quested Visits Authorized [id number] 1 1 Encounter Details Date Type Department Care Team (Late st Contact Info) Description 03/06/2024 2:00 PM CDT [facility] [address] [place], [place] [phone] Mariaelena Virk, OT OT - INITIAL EVALUATION [...] on file Legal Sex Female 9:54 AM PRODUCT MANAGER E COMMERCE Gender Identity Not on file Sexual Orientation [...] st Contact Info) Description 12/18/2024 2:15 PM PRODUCT MANAGER E COMMERCE Office Visit [facility] - [facility]rology - [place] [address] [place] [address] Adeel Covarrubias MD [address] [place] [address] documented as of this encounter Visit Diagnoses Not on filedocumented in this encounter Home Health Visit - Care Plan Visit Details Visit Type -OT - INITIAL MANI LUATION Discipline -Occupational Therapy Problems Problem Description Start Date Status Goals Interve ntions FALL PREVENTION (O) Disciplines: SN, PT, OT, BATTERY CHARGER, HCA, HAY SORTER, RT 03/05/2024 Active 1 goal linked to [...] goals the following were identified. Patient Centered Field Map Editor Goal: to get stronger Target date: within [...] (Order Only) Description: Pt was hospitalized at [facility] from 02/18/24-02/23/24 with c/o R knee [...] and Narratives Narratives Pt was hospitalized at [facility] from 02/18/24-02/23/24 with c/o R knee [...] herself. documented in this encounter Care Teams Electrician Wiring Relationship Specialty Start Date End Date Watson Perry MD [address] [place] [address] PCP - General Family Medicine 01/25/18 Adeel Covarrubias MD [address] [place] [address] Consulting Physician Neurology 03/07/22 documented as of this encounter
--- OUTSIDE RECORDS SUMMARY | 2024-11-23 18:10 | XMS_ITS | Encounter Summary ---
Author Organization [facility] [employer] Care Team Providers Care Support Dba Name Role Phone Watson Perry MD Primary Care Provider [phone] Adeel Covarrubias MD Unavailable [phone] Encounter Details Date Type Department Care Team [...] on file Legal Sex Female 9:54 AM RAND TACKER Gender Identity Not on file Sexual Orientation [...] st Contact Info) Description 12/18/2024 2:15 PM RAND TACKER Office Visit [facility] - Neurology [facility] [address] [place] [address] Adeel Covarrubias MD [address] [place] [address] documented as of this encounter Visit Diagnoses Not on filedocumented in this encounter Care Teams Support Dba Relationship Specialty Start Date End Date Watson Perry MD [address] [place] [address] PCP - General Family Medicine 01/25/18 Adeel Covarrubias MD [address] [place] [address] Consulting Physician Neurology 03/07/22 documented as of this encounter
--- OUTSIDE RECORDS SUMMARY | 2024-11-23 18:10 | XMS_ITS | Encounter Summary ---
Author Organization [facility] Address [address] [place] [address] Phone Care Team Providers Care Multimedia Coordinator Name Role Phone Watson Perry MD Primary Care Provider [phone] Adeel Covarrubias MD Unavailable [phone] Reason for Visit * Auth/Cert (Routine) Specialty Diagnoses / Procedures Referred By Contac t Referred To Contact Referral ID Status Reason Start Date Expiration Date Visits Re quested Visits Authorized [id number] 1 1 Encounter Details Date Type Department Care Team (Late st Contact Info) Description 03/12/2024 12:00 PM CDT [facility] [address] [place] [address] Katlin Whelan, SALON LEADER [place] PT - HOME VISIT Social History [...] on file Legal Sex Female 9:54 AM DIRECTOR OPERATIONS BROADCAST Gender Identity Not on file Sexual Orientation [...] st Contact Info) Description 12/18/2024 2:15 PM DIRECTOR OPERATIONS BROADCAST [facility] Visit [facility] - Neurology - [place] [address] [place] [address] Adeel Covarrubias MD [address] [place] [address] documented as of this encounter Visit Diagnoses [...] goals the following were identified: Patient centered longterm goal: to improve balance. Target Date: by [...] [facility] hospitalization at [facility] from 02/18/24-02/23/24 with c/o R knee [...] required. documented in this encounter Care Teams Multimedia Coordinator Relationship Specialty Start Date End Date Watson Perry MD [address] [place] [address] PCP - General Family Medicine 01/25/18 Adeel Covarrubias MD [address] [place] [address] Consulting Physician Neurology 03/07/22 documented as of this encounter
--- OUTSIDE RECORDS SUMMARY | 2024-11-23 18:10 | XMS_ITS | Encounter Summary ---
Author Organization [facility] Care Team Providers Care Bakeshop Cleaner Name Role Phone Watson Perry MD Primary Care Provider [phone] Adeel Covarrubias MD Unavailable [phone] Encounter Details Date Type Department Care Team [...] on file Legal Sex Female 9:54 AM CAST ASSOCIATE Gender Identity Not on file Sexual Orientation Not on file documented as of this encounter Plan of Treatment Upcoming Encounters Date Type Department Care Team (Late st Contact Info) Description 12/18/2024 2:15 PM CAST ASSOCIATE Office Visit [facility] - Neurology [facility] [address] [place] [address] Adeel Covarrubias MD [address] [place] [address] documented as of this encounter Visit Diagnoses Not on filedocumented in this encounter Care Teams Bakeshop Cleaner Relationship Specialty Start Date End Date Watson Perry MD [address] [place] [address] PCP - General Family Medicine 01/25/18 Adeel Covarrubias MD [address] [place] [address] Consulting Physician Neurology 03/07/22 documented as of this encounter
--- OUTSIDE RECORDS SUMMARY | 2024-11-23 18:10 | XMS_ITS | Encounter Summary ---
Author Organization [facility] [employer] Care Team Providers Care Exhaust Emissions Automotive Technician Name Role Phone Watson Perry MD Primary Care Provider [phone] Adeel Covarrubias MD Unavailable [phone] Encounter Details Date Type Department Care Team [...] on file Legal Sex Female 9:54 AM REMOTELY OPERATED VEHICLE Gender Identity Not on file Sexual Orientation [...] st Contact Info) Description 12/18/2024 2:15 PM REMOTELY OPERATED VEHICLE Office Visit [facility] - Neurology [facility] [address] [place] [address] Adeel Covarrubias MD [address] [place] [address] documented as of this encounter Visit Diagnoses Not on filedocumented in this encounter Care Teams Exhaust Emissions Automotive Technician Relationship Specialty Start Date End Date Watson Perry MD [address] [place] [address] PCP - General Family Medicine 01/25/18 Adeel Covarrubias MD [address] [place] [address] Consulting Physician Neurology 03/07/22 documented as of this encounter
--- OUTSIDE RECORDS SUMMARY | 2024-11-23 18:10 | XMS_ITS | Encounter Summary ---
Author Organization [facility] Care Team Providers Care Purchasing Specialist Name Role Phone Watson Perry MD Primary Care Provider [phone] Adeel Covarrubias MD Unavailable [phone] Encounter Details Date Type Department Care Team [...] on file Legal Sex Female 9:54 AM CARBURIZER Gender Identity Not on file Sexual Orientation Not on file documented as of this encounter Plan of Treatment Upcoming Encounters Date Type Department Care Team (Late st Contact Info) Description 12/18/2024 2:15 PM CARBURIZER Office Visit [facility] - Neurology [facility] [address]2 [place] [address] Adeel Covarrubias MD [address] [place] [address] documented as of this encounter Visit Diagnoses Not on filedocumented in this encounter Care Teams Purchasing Specialist Relationship Specialty Start Date End Date Watson Perry MD [address] [place] [address] PCP - General Family Medicine 01/25/18 Adeel Covarrubias MD [address] [place] [address] Consulting Physician Neurology 03/07/22 documented as of this encounter
--- OUTSIDE RECORDS SUMMARY | 2024-11-23 18:10 | XMS_ITS | Encounter Summary ---
Author Organization [facility] Care Team Providers Care Unmanned Equipment Operator Name Role Phone Watson Perry MD Primary Care Provider [phone] Adeel Covarrubias MD Unavailable [phone] Encounter Details Date Type Department Care Team [...] on file Legal Sex Female 9:54 AM NET TECHNICAL ARCHITECT Gender Identity Not on file Sexual Orientation Not on file documented as of this encounter Plan of Treatment Upcoming Encounters Date Type Department Care Team (Late st Contact Info) Description 12/18/2024 2:15 PM NET TECHNICAL ARCHITECT Office Visit [facility] - Neurology [facility] #2 [place] [address] Adeel Covarrubias MD [address] [place] [address] documented as of this encounter Visit Diagnoses Not on filedocumented in this encounter Care Teams Unmanned Equipment Operator Relationship Specialty Start Date End Date Watson Perry MD [address] [place] [address] PCP - General Family Medicine 01/25/18 Adeel Covarrubias MD [address] [place] [address] Consulting Physician Neurology 03/07/22 documented as of this encounter
--- OUTSIDE RECORDS SUMMARY | 2024-11-23 18:10 | XMS_ITS | Encounter Summary ---
Author Organization [facility] Address [address] [place] [address] Phone Care Team Providers Care Waterworks Employee Name Role Phone Watson Perry MD Primary Care Provider [phone] Adeel Covarrubias MD Unavailable [phone] Reason for Visit * Reason Onset Date Comments Medication Refill 12/20/2022 Encounter Details Date Type Department Care Team (Late st Contact Info) Description 12/15/2022 Refill [facility] #[address] [place] [address] Adeel Covarrubias MD [address] [place] [address] Medication Refill Social History Tobacco [...] on file Legal Sex Female 9:54 AM OFF TRACK BETTING MANAGER Gender Identity Not on file Sexual Orientation Not on file documented as of this encounter Miscellaneous Notes * Telephone Encounter - Selam Spicer CMA - 12/20/2022 4:15 PM OFF TRACK BETTING MANAGER Opened in error TRACK BETTING MANAGER documented in this encounter Plan of Treatment Upcoming Encounters Date Type Department Care Team (Late st Contact Info) Description 12/18/2024 2:15 PM OFF TRACK BETTING MANAGER Office Visit [facility] - Neurology [facility] #[address] [place] [address] Adeel Covarrubias MD [address] [place] [address] documented as of this encounter Visit Diagnoses Diagnosis Essential tremor Essential and other specified forms of tremor documented in this encounter Care Teams Waterworks Employee Relationship Specialty Start Date End Date Watson Perry MD [address] [place] [address] PCP - General Family Medicine 01/25/18 Adeel Covarrubias MD [address] [place] [address] Consulting Physician Neurology 03/07/22 documented as of this encounter
--- OUTSIDE RECORDS SUMMARY | 2024-11-23 18:10 | XMS_ITS | Encounter Summary ---
Author Organization [facility] Address [address] [place] [address] Phone Care Team Providers Care Warehouse Consultant Name Role Phone Watson Perry MD Primary Care Provider [phone] Adeel Covarrubias MD Unavailable [phone] Reason for Visit * Auth/Cert (Routine) Specialty Diagnoses / Procedures Referred By Contac t Referred To Contact Referral ID Status Reason Start Date Expiration Date Visits Re quested Visits Authorized [id number] 1 1 Encounter Details Date Type Department Care Team (Late st Contact Info) Description 03/10/2024 11:00 AM CDT [facility] [address] [place], [place] [address] Mariaelena Virk, OT OT - HOME VISIT [...] on file Legal Sex Female 9:54 AM SAP GRC SECURITY Gender Identity Not on file Sexual Orientation [...] st Contact Info) Description 12/18/2024 2:15 PM SAP GRC SECURITY Office Visit [facility] - Neurology [facility] [address] [place] [address] Adeel Covarrubias MD [address] [place] [address] documented as of this encounter Visit Diagnoses Not on filedocumented in this encounter Home Health Visit - Care Plan Visit Details Visit Type -OT - HOME VISIT Discipline -Occupational Therapy Problems Problem Description Start Date Status Goals Interve ntions FALL PREVENTION (O) Disciplines: SN, PT, OT, RESEARCH FOOD TECHNOLOGIST, HCA, BANQUET PILOT, RT 03/05/2024 Active 1 goal linked to [...] goals the following were identified. Patient Centered Assisted Goal: to get stronger Target date: within [...] functional independence. to be met by 03/21/24 USP goal: Patient will complete tub/shower, chair, toilet [...] of safety/technique. To be met by 03/21/24. Client Consultant Goal: Patient and Caregiver will perform B [...] (Order Only) Description: Pt was hospitalized at [facility] from 02/18/24-02/23/24 with c/o R knee [...] afternoon documented in this encounter Care Teams Warehouse Consultant Relationship Specialty Start Date End Date Watson Perry MD [address] [place] [address] PCP - General Family Medicine 01/25/18 Adeel Covarrubias MD [address] [place] [address] Consulting Physician Neurology 03/07/22 documented as of this encounter
--- OUTSIDE RECORDS SUMMARY | 2024-11-23 18:10 | XMS_ITS | Encounter Summary ---
Author Organization [facility] Address [address] [place] [address] Phone Care Team Providers Care Counseling Specialist Name Role Phone Watson Perry MD Primary Care Provider [phone] Adeel Covarrubias MD Unavailable [phone] Reason for Visit * Auth/Cert (Routine) Specialty Diagnoses / Procedures Referred By Contac t Referred To Contact Referral ID Status Reason Start Date Expiration Date Visits Re quested Visits Authorized [id number] 1 1 Encounter Details Date Type Department Care Team (Latest Contact Info) Description 03/05/2024 2:30 PM CDT [facility] [address] [place] [address] Fartun Burrell, PT [place] PT - INITIAL [...] on file Legal Sex Female 9:54 AM MILK DELIVERY DRIVER Gender Identity Not on file Sexual [...] st Contact Info) Description 12/18/2024 2:15 PM MILK DELIVERY DRIVER [facility] - [place] [address] [place] [address] Adeel Covarrubias MD [address] [place] [address] documented as of this encounter Visit Diagnoses [...] ongoing documented in this encounter Care Teams Counseling Specialist Relationship Specialty Start Date End Date Watson Perry MD [address] [place] [address] PCP - General Family Medicine 01/25/18 Adeel Covarrubias MD [address] [place] [address] Consulting Physician Neurology 03/07/22 documented as of this encounter
--- OUTSIDE RECORDS SUMMARY | 2024-11-23 18:10 | XMS_ITS | Encounter Summary ---
Author Organization [facility] Address [address] [place] [address] Phone Care Team Providers Care Commutator Inspector Name Role Phone Watson Perry MD Primary Care Provider [phone] Adeel Covarrubias MD Unavailable [phone] Reason for Referral * Radiology Services (Routine) - Closed Specialty Diagnoses / Procedures Referred By Contac t Referred To Contact Radiology Diagnoses Thyroid nodule Procedures US THYROID Julieta Fleming PAC [address] [place] [address] Phone: tel: fax: Referral ID Status Reason Start Date Expiration Date Visits Re quested Visits Authorized [id number] Closed 10/22/2023 1 1 EF PILOT Reason for Visit * Radiology Services (Routine) - Closed Specialty Diagnoses / Procedures Referred By Contac t Referred To Contact Radiology Diagnoses Thyroid nodule Procedures US THYROID Julieta Fleming PAC [address] [place] [address] Phone: tel: fax: Referral ID Status Reason Start Date Expiration Date Visits Re quested Visits Authorized [id number] Closed 10/22/2023 1 1 Encounter Details Date Type Department Care Team (Latest Contact Info) Description 10/27/2023 10:30 AM RELIEF PILOT - 10/27/2023 11:59 PM RELIEF PILOT Hospital Encounter [facility] Ultrasound 1 [facility] [place] [address] Julieta Fleming, PAC [address] [place] [address] Discharge Disposition: Discharged to home or Selfcare [...] on file Legal Sex Female 9:54 AM RELIEF PILOT Gender Identity Not on file Sexual [...] PO) Take 1 % by mouth daily. [place]-3 Fatty Acids (FISH OIL PO) Take 2 [...] st Contact Info) Description 12/18/2024 2:15 PM RELIEF PILOT [facility] [address] [place] [address] Adeel Covarrubias MD [address] [place] [address] documented as of this encounter Procedures Procedure Name Priority Date/Time Associated Diagnosis Comments US THYROID Routine 10/27/2023 11:14 AM RELIEF PILOT Thyroid nodule documented in this encounter Results * US THYROID (10/27/2023 11:14 AM RELIEF PILOT) Anatomical Region Laterality Modality BODY N/A Ultrasound 10/30/2023 5:54 AM RELIEF PILOT Impressions 10/30/2023 5:57 AM RELIEF PILOT IMPRESSION: 1.7 cm TR3 right thyroid nodule [...] greater FNA recommended. Narrative 10/30/2023 5:57 AM RELIEF PILOT EXAM DESCRIPTION: ?? US THYROID REASON FOR [...] AM T: ??10/30/2023 5:54 AM Report ID: [id number] Reading Location: ??[id number] Procedure Note Marco Wallace MD - 10/30/2023 [...] Marco Wallace M.D. MZ: KARL Report ID: [id number] Reading Location: [id number] IMPRESSION: 1.7 cm TR3 right thyroid nodule [...] goiter documented in this encounter Care Teams Commutator Inspector Relationship Specialty Start Date End Date Watson Perry MD [address] [place] [address] PCP - General Family Medicine 01/25/18 Adeel Covarrubias MD [address] [place] [address] Consulting Physician Neurology 03/07/22 documented as of this encounter
--- OUTSIDE RECORDS SUMMARY | 2024-11-23 18:10 | XMS_ITS | Encounter Summary ---
Author Organization [facility] Address [address] [place] [address] Phone Care Team Providers Care Valve Maker Name Role Phone Watson Perry MD Primary Care Provider [phone] Adeel Covarrubias MD Unavailable Reason for Referral * Radiology Services (Routine) - Closed Specialty Diagnoses / Procedures Referred By Contjesse t Referred To Contact Radiology Diagnoses Nontoxic uninodular goiter Procedures US THYROID Julieta Fleming PAC [address] [place] [address] Phone: tel: fax: Referral ID Status Reason Start Date Expiration Date Visits Re quested Visits Authorized [id number] Closed 08/14/2022 1 1 Encounter Details Date Type Department Care Team (Latest Contact Info) Description 08/14/2022 Transcribe Orders [facility] Central Scheduling [address] [place] [address] Julieta Fleming PAC [address] [place] [address] Nontoxic uninodular goiter (Primary Dx) [...] on file Legal Sex Female 9:54 AM CLERICAL GRADER Gender Identity Not on file Sexual Orientation [...] st Contact Info) Description 12/18/2024 2:15 PM CLERICAL GRADER Office Visit [facility] - Neurology [facility] [address] [place] [address] Adeel Covarrubias MD [address] [place] [address] documented as of this encounter Results * [...] AM T: ??08/31/2022 9:03 AM Report ID: [id number] Reading Location: ??[id number] Procedure Note Javier Langley Jr., MD - [...] Javier Langley M.D. CH: JULI Report ID: [id number] Reading Location: [place] [address] IMPRESSION: Solid 1.8 cm mid right thyroid [...] or greater FNA recommended. us Julieta Fleming [facility] IMG US ORDERABLES Final Res ult documented in this encounter Visit Diagnoses Diagnosis Nontoxic uninodular goiter- Primary Nontoxic uninodular goiter documented in this encounter Care Teams Valve Maker Relationship Specialty Start Date End Date Watson Perry MD [address] [place] [address] PCP - General Family Medicine 01/25/18 Adeel Covarrubias MD [address] [place] [address] Consulting Physician Neurology 03/07/22 documented as of this encounter
--- OUTSIDE RECORDS SUMMARY | 2024-11-23 18:10 | XMS_ITS | Encounter Summary ---
Author Organization [facility] Address [address] [place] [address] Phone Care Team Providers Care Moth Exterminator Name Role Phone Watson Perry MD Primary Care Provider [phone] Adeel Covarrbuias MD Unavailable [phone] Reason for Visit * Auth/Cert (Routine) Specialty Diagnoses / Procedures Referred By Contac t Referred To Contact Referral ID Status Reason Start Date Expiration Date Visits Re quested Visits Authorized [id number] 1 1 Encounter Details Date Type Department Care Team (Late st Contact Info) Description 03/17/2024 9:00 AM CDT [facility] [address] [place] [address] Meenakshi Gilbert OTA [place] OT - HOME VISIT Social History Tobacco [...] on file Legal Sex Female 9:54 AM TOUR BUS DRIVER Gender Identity Not on file Sexual [...] st Contact Info) Description 12/18/2024 2:15 PM TOUR BUS DRIVER [facility] [place] [address] [place] [address] Adeel Covarrubias MD [address] [place] [address] documented as of this encounter Visit Diagnoses [...] goals the following were identified. Patient Centered Addiction Therapist Goal: to get stronger Target date: within 6 weeks OCCUPATIONAL THERAPY GENERAL ORDER (O) No OT Meal Prep Description: Retirement Goal: Patient will complete meal preparation/functional kitchen mobility at standing level with walker, seated walker, walker basket/tray and other recommended DME/equip/tech prn with independence and good understanding of safety/technique. To be met by 03/28/24 OT COMPREHENSIVE No OT Dressing Description: Addiction Therapist Goal: Patient will perform/simulate dry run/demonstrate prn [...] of safety/technique. To be met by 03/21/24. Addiction Therapist Goal: Patient will improve dynamic standing balance [...] (Order Only) Description: Pt was hospitalized at [facility] from 02/18/24-02/23/24 with c/o R [...] pt reports she has sock aide and seaming machine operator to assist with LB dressing PRN . [...] balance with item retrieval from floor with seaming machine operator, ed on walker placement and use of [...] ongoing documented in this encounter Care Teams Moth Exterminator Relationship Specialty Start Date End Date Watson Perry MD [address] [place] [address] PCP - General Family Medicine 01/25/18 Adeel Covarrubias MD [address] [place] [address] Consulting Physician Neurology 03/07/22 documented as of this encounter
--- OUTSIDE RECORDS SUMMARY | 2024-11-23 18:10 | XMS_ITS | Encounter Summary ---
Author Organization [facility] Address [address] [place] [address] Phone Care Team Providers Care Assistant Professor Of Business Name Role Phone Watson Perry MD Primary Care Provider [phone] Adeel Covarrubias MD Unavailable [phone] Reason for Visit * Auth/Cert (Routine) Specialty Diagnoses / Procedures Referred By Contac t Referred To Contact Referral ID Status Reason Start Date Expiration Date Visits Re quested Visits Authorized [id number] 1 1 Encounter Details Date Type Department Care Team (Late st Contact Info) Description 03/18/2024 9:30 AM CDT [facility] [address] [place] [address] Katlin Whelan, SVP [employer] [place] PT - HOME VISIT Social History [...] on file Legal Sex Female 9:54 AM BUTTERMAKER CONTINUOUS CHURN Gender Identity Not on file Sexual Orientation [...] st Contact Info) Description 12/18/2024 2:15 PM BUTTERMAKER CONTINUOUS CHURN Office Visit [facility] - [facility] - [place] [address] [place] [address] Adeel Covarrubias MD [address] [place] [address] documented as of this encounter Visit Diagnoses [...] goals the following were identified: Patient centered custodial goal: to improve balance. Target Date: by [...] to [facility] after hospitalization at [facility] from 02/18/24-02/23/24 with c/o R [...] understanding. documented in this encounter Care Teams Assistant Professor Of Business Relationship Specialty Start Date End Date Watson Perry MD [address] [place], [place] [address] PCP - General Family Medicine 01/25/18 Adeel Covarrubias MD [address] [place] [address] Consulting Physician Neurology 03/07/22 documented as of this encounter
--- OUTSIDE RECORDS SUMMARY | 2024-11-23 18:10 | XMS_ITS | Encounter Summary ---
Author Organization [facility] Address [address] [place] [address] Phone Care Team Providers Care Fermenting Cellars Supervisor Name Role Phone Watson Perry MD Primary Care Provider [phone] Adeel Covarrubias MD Unavailable Reason for Visit * Auth/Cert (Routine) Specialty Diagnoses / Procedures Referred By Contac t Referred To Contact Referral ID Status Reason Start Date Expiration Date Visits Re quested Visits Authorized [id number] 1 1 Encounter Details Date Type Department Care Team (Latest Contact Info) Description 03/05/2024 11:30 AM CDT [facility] [address] [place], [place] [phone] Jaylene Biggs RN SN - OASIS START [...] on file Legal Sex Female 9:54 AM SLURRY MIXER Gender Identity Not on file Sexual Orientation [...] st Contact Info) Description 12/18/2024 2:15 PM SLURRY MIXER [facility] Visit [facility] [address] [place] [address] Adeel Covarrubias MD [address] [place] [address] documented as of this encounter Visit Diagnoses Not on filedocumented in this encounter Home Health Visit - Care Plan Visit Details Visit Type -SN - OASIS START OF CARE Discipline -Penitentiary Problems Problem Description Start Date Status Goals Interve ntions FALL PREVENTION (O) Disciplines: SN, PT, OT, MANAGER DENTAL, HCA, CEMENT CONVEYOR OPERATOR, RT 03/05/2024 Active 1 goal linked to [...] in this visit SN GENERAL ORDERS Disciplines: Penitentiary SN General Orders 03/05/2024 Active 1 goal linked to scheduled/documen zen intervention 2 goal interventions scheduled/document ed in this visit SAFETY/PREVENTI ON EDUCATION Disciplines: Penitentiary Safety/Preventio n Education 03/05/2024 Active - 1 [...] care. Clinical findings: Pt was admitted to [facility] due to a blankenship's cyst [...] Work Focus: not ordered/needed at this time Certified Orthotist Practice Manager to provide: not ordered/needed at this time [...] Completed documented in this encounter Care Teams Fermenting Cellars Supervisor Relationship Specialty Start Date End Date Watson Perry MD [address] [place] [address] PCP - General Family Medicine 01/25/18 Adeel Covarrubias MD [address] [place] [address] Consulting Physician Neurology 03/07/22 documented as of this encounter
--- OUTSIDE RECORDS SUMMARY | 2024-11-23 18:10 | XMS_ITS | Encounter Summary ---
Author Organization [facility] Address [address] [place] [address] [address] Phone Care Team Providers Care Parking Lot Supervisor Name Role Phone Watson Perry MD Primary Care Provider [phone] Adeel Covarrubias MD Unavailable [phone] Reason for Referral * Radiology Services (Routine) - Closed Specialty Diagnoses / Procedures Referred By Contac t Referred To Contact Radiology Diagnoses Nontoxic uninodular goiter Procedures US THYROID Julieta Fleming PAC [address] [place] [address] Phone: tel: fax: Referral ID Status Reason Start Date Expiration Date Visits Re quested Visits Authorized [id number] Closed 08/14/2022 1 1 Reason for Visit * Radiology Services (Routine) - Closed Specialty Diagnoses / Procedures Referred By Contac t Referred To Contact Radiology Diagnoses Nontoxic uninodular goiter Procedures US THYROID Julieta Fleming PAC [address] [place] [address] Phone: tel: fax: Referral ID Status Reason Start Date Expiration Date Visits Re quested Visits Authorized [id number] Closed 08/14/2022 1 1 Encounter Details Date Type Department Care Team (Latest Contact Info) Description 08/30/2022 9:04 AM CDT - 08/30/2022 11:59 PM CDT Hospital Encounter [facility] Ultrasound [address] [place] [address] Julieta Fleming, PAC [address] [place] [address] Discharge Disposition: Discharged to home or Selfcare [...] on file Legal Sex Female 9:54 AM MEDICAL IMAGING DIRECTOR Gender Identity Not on file Sexual [...] PO) Take 1 % by mouth daily. [place]-3 Fatty Acids (FISH OIL PO) Take 2 [...] st Contact Info) Description 12/18/2024 2:15 PM MEDICAL IMAGING DIRECTOR Office Visit [facility] [address] [place] [address] Adeel Covarrubias MD [address] [place] [address] documented as of this encounter Procedures Procedure [...] AM T: ??08/31/2022 9:03 AM Report ID: [id number] Reading Location: ??[id number] Procedure Note Javier Langley Jr., MD - [...] Javier Langley M.D. CH: JULI Report ID: [id number] Reading Location: [place] [address] IMPRESSION: Solid 1.8 cm mid right thyroid [...] goiter documented in this encounter Care Teams Parking Lot Supervisor Relationship Specialty Start Date End Date Watson Perry MD [address] [place] [address] PCP - General Family Medicine 01/25/18 Adeel Covarrubias MD [address] [place] [address] Consulting Physician Neurology 03/07/22 documented as of this encounter
--- OUTSIDE RECORDS SUMMARY | 2024-11-23 18:10 | XMS_ITS | Encounter Summary ---
Author Organization [facility] Address [address] [place] [address] Phone Care Team Providers Care Test Tech Name Role Phone Watson Perry MD Primary Care Provider [phone] Adeel Covarrubias MD Unavailable [phone] Reason for Referral * Radiology Services (Routine) - Closed Specialty Diagnoses / Procedures Referred By Rhea laura Referred To Contact Radiology Diagnoses Nontoxic single thyroid nodule Procedures US GUIDANCE AND THYROID FINE NEEDLE ASPIRATION US GUIDANCE AND THYROID BIOPSY Julieta Fleming PAC [address] [place] [address] Phone: tel: fax: Referral ID Status Reason Start Date Expiration Date Visits Re quested Visits Authorized [id number] Closed 09/05/2022 1 1 Reason for Visit * Auth/Cert Specialty Diagnoses / Procedures Referred By Rhea laura Referred To Contact Diagnoses NONTOXIC SINGLE THYROID NODULE Procedures PRE / POST CARE FOR PROCEDURAL AREA Referral ID Status Reason Start Date Expiration Date Visits Re quested Visits Authorized [id number] 1 1 Encounter Details Date Type Department Care Team (Late st Contact Info) Description 09/19/2022 9:21 AM CDT - 09/19/2022 11:59 PM CDT Hospital Encounter [facility] Ultrasound [address] [place] [address] Lonnie Julieta Phoenix, PAC [address] [place] [address] Provider, Anesthesiologist Discharge Disposition: Discharged to home [...] on file Legal Sex Female 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 [place]-3 Fatty Acids (FISH OIL PO) Take 2 [...] st Contact Info) Description 12/18/2024 2:15 PM FENCE INSTALLER FOREMAN [facility] [address] [place] [address] Adeel Covarrubias MD [address] [place] [address] documented as of this encounter Procedures Procedure Name Priority Date/Time Associated Diagnosis Comments US GUIDANCE AND THYROID FINE NEEDLE ASPIRATION Routine 09/19/2022 10:38 AM CDT Nontoxic single thyroid nodule PATHOLOGY CYTOLOGY NON-SATURATOR Routine 09/19/2022 10:30 AM CDT Nontoxic single [...] AM T: ??09/19/2022 11:42 AM Report ID: [id number] Reading Location: ??[id number] THIS IS AN ELECTRONICALLY VERIFIED FINAL REPORT 09/22/2022 1:20 PM ??Addendum Electronically signed by Tripp Alvarez M.D. AG: AG D: ??09/22/2022 1:20 PM T: ??09/22/2022 1:20 PM Report ID: [id number] Reading Location: ??[id number] Impressions 09/19/2022 11:45 AM CDT IMPRESSION: Ultrasound [...] Electronically signed by ??Tripp Alvarez M.D. AG: LAONZO D: ??09/19/2022 11:42 AM T: ??09/19/2022 11:42 AM Report ID: [id number] Reading Location: ??[id number] Procedure Note Tripp Alvarez MD - 09/19/2022 [...] Tripp Alvarez M.D. AG: ALONZO Report ID: [id number] Reading Location: [id number] IMPRESSION: Ultrasound guided fine-needle aspiration of a right thyroid nodule. Pathology is pending. us Julieta Fleming [facility] US ORDERABLES Edited Re sult - Final * Pathology Cytology Non-SATURATOR (09/19/2022 10:30 AM CDT) Case Report Medical Cytology Report ? Case: [id number] ? Authorizing Provider: ??Julieta Fleming, PAC ? Collected: ? 09/19/2022 10:30 AM ? Ordering Location: ? [facility] ? Received: ?09/19/2022 10:51 AM ? [facility] ? Ultrasound ? Pathologist: ? Erin Herring MD ? Specimen: ?Thyroid, Right Thyroid Mid FNA 2 passes, 1030, , [facility] ? 09/21/2022 10:57 AM CDT [facility] FINAL DIAGNOSIS THYROID GLAND, RIGHT MID NODULE (1.8 CM), ULTRASOUND GUIDED FINE NEEDLE ASPIRATION (SMEARS): - BENIGN, [place] CATEGORY II. - COMPATIBLE WITH BENIGN FOLLICULAR NODULE. 09/21/2022 10:57 AM CDT [facility] Intraoperative Consultation A. Right Thyroid Mid FNA 2 passes, 1030, , [place] PATHOLOGY (Immediate Interpretation ): Thyroid Gland, Right Mid Nodule (1.8 cm), Ultrasound Guided Fine Needle Aspiration: Episode #1, Passes 1-2 - Adequate for evaluation. Conveyed to Dr. Alvarez by Dr. Herring on September 19, 2022. Time: 10:34 am. Afirma Collected. 09/21/2022 10:57 AM CDT [facility] Gross Description A. Right Thyroid Mid [...] cytologic examination. ARSEN/sb 09/21/2022 10:57 AM CDT [facility] Microscopic Description Microscopic examination was performed which supports the final diagnosis. All control tissues stained appropriately. Smears show benign-appeari ng follicular cells with abundant colloid and occasional pigmented histiocytes. 09/21/2022 10:57 AM CDT [facility] Tissue THYROID STRUCTURE / Unknown 09/19/2022 10:30 AM CDT 09/19/2022 10:51 AM CDT Julieta Fleming PAC PATHOLOGY/CYTOLOGY ORDERABL ES Final Result [facility] [address] [place] [address] documented in this encounter Visit Diagnoses Diagnosis [...] mL documented in this encounter Care Teams Test Tech Relationship Specialty Start Date End Date Watson Perry MD [address] [place] [address] PCP - General Family Medicine 01/25/18 Adeel Covarrubias MD [address] [place] [address] Consulting Physician Neurology 03/07/22 documented as of this encounter
--- OUTSIDE RECORDS SUMMARY | 2024-11-23 18:10 | XMS_ITS | Encounter Summary ---
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 SHEET Gender Identity Not on file Sexual Orientation [...] st Contact Info) Description 12/18/2024 2:15 PM REPAIRER VENEER SHEET Office Visit [facility] - Neurology [facility] [address] [place] [address] Adeel Covarrubias MD [address] [place] [address] documented as of this encounter Visit Diagnoses Not on filedocumented in this encounter Care Teams Center Medical Specialist Relationship Specialty Start Date End Date Watson Perry MD [address] [place] [address] PCP - General Family Medicine 01/25/18 Adeel Covarrubias MD [address] [place] [address] Consulting Physician Neurology 03/07/22 documented as of this encounter
--- OUTSIDE RECORDS SUMMARY | 2024-11-23 18:10 | XMS_ITS | Encounter Summary ---
Author Organization [facility] Address [address] [place] [address] Phone Care Team Providers Care Test Skein Winder Name Role Phone Watson Perry MD Primary Care Provider [phone] Adeel Covarrubias MD Unavailable [phone] Reason for Visit * Auth/Cert (Routine) Specialty Diagnoses / Procedures Referred By Contac t Referred To Contact Referral ID Status Reason Start Date Expiration Date Visits Re quested Visits Authorized [id number] 1 1 Encounter Details Date Type Department Care Team (Late st Contact Info) Description 03/14/2024 10:30 AM CDT [facility] [address] [place] [address] Katlin Whelan, SKI BASE TRIMMER [place] PT - HOME VISIT Social History [...] on file Legal Sex Female 9:54 AM LINEMAN A CLASS Gender Identity Not on file Sexual Orientation [...] st Contact Info) Description 12/18/2024 2:15 PM LINEMAN A CLASS [facility] - [place] [address] [place] [address] Adeel Covarrubias MD [address] [place] [address] documented as of this encounter Visit Diagnoses [...] to [facility] after hospitalization at [facility] from 02/18/24-02/23/24 with c/o R [...] required. documented in this encounter Care Teams Test Skein Winder Relationship Specialty Start Date End Date Watson Perry MD [address] [place] [address] PCP - General Family Medicine 01/25/18 Adeel Covarrubias MD [address] [place] [address] Consulting Physician Neurology 03/07/22 documented as of this encounter
--- OUTSIDE RECORDS SUMMARY | 2024-11-23 18:10 | XMS_ITS | Encounter Summary ---
Author Organization [facility] Address [address] [place] [address] Phone Care Team Providers Care Air Hole Driller Name Role Phone Watson Coleman MD Primary Care Provider [phone] Nicholas Wise MD Unavailable [phone] Reason for Visit * Reason Comments essential tremor Encounter Details Date Type Department Care Team (Late st Contact Info) Description 03/06/2023 9:00 AM CDT Office Visit [facility] - [facility] [address] [place] [address] Nicholas Wise MD [address] [place] [address] Essential tremor Discharge Disposition: Discharged [...] Take by mouth., Disp: , Rfl: ??? Oxrqlupwylu-Wfufyhmkm-Kxuqed (TRELEGY ELLIPTA IN), take 1 Puff by [...] Take by mouth., Disp: , Rfl: ??? [place]-3 Fatty Acids (FISH OIL PO), Take by [...] Flexors 5/5 5/5 Wrist Extensors 5/5 5/5 Hand Mexican Food Maker 5/5 5/5 Hip Flexors 5/5 5/5 Quadriceps [...] 2:15 PM TOUR BUS DRIVER Office Visit [facility] - Neurology [facility] [address] [place] [address] Nicholas Wise MD [address] [place] [address] documented as of this encounter Visit Diagnoses Diagnosis Essential tremor Essential and other specified forms of tremor documented in this encounter Care Teams Air Hole Driller Relationship Specialty Start Date End Date Watson Coleman MD [address] [place] [address] PCP - General Family Medicine 01/25/18 Nicholas Wise MD [address] [place] [address] Consulting Physician Neurology 03/07/22 documented as of this encounter
--- OUTSIDE RECORDS SUMMARY | 2024-11-23 18:10 | XMS_ITS | Encounter Summary ---
Author Organization [facility] Address [address] [place] [address] Phone Care Team Providers Care Shoveler Name Role Phone Watson Perry MD Primary Care Provider [phone] Adeel Covarrubias MD Unavailable [phone] Reason for Visit * Auth/Cert (Routine) Specialty Diagnoses / Procedures Referred By Contac t Referred To Contact Referral ID Status Reason Start Date Expiration Date Visits Re quested Visits Authorized [id number] 1 1 Encounter Details Date Type Department Care Team (Late Contact Info) Description 03/12/2024 Home Care Visit [facility] [address] [place] [address] Fartun Burrell, PT RI CASE COMMUNICATION Social History Tobacco Use Types [...] on file Legal Sex Female 9:54 AM SHAKE BACKBOARD 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 Gender Identity Not on file Sexual Orientation Not on file documented as of this encounter Plan of Treatment Upcoming Encounters Date Type Department Care Team (Late Contact Info) Description 12/18/2024 2:15 PM SHAKE BACKBOARD NOTCHER [facility] [address] [place] [address] Adeel Covarrubias MD [address] [place] [address] documented as of this encounter Visit Diagnoses Not on filedocumented in this encounter Care Teams Shoveler Relationship Specialty Start Date End Date Watson Perry MD [address] [place] [address] PCP - General Family Medicine 01/25/18 Adeel Covarrubias MD [address] [place] [address] Consulting Physician Neurology 03/07/22 documented as of this encounter
--- OUTSIDE RECORDS SUMMARY | 2024-11-23 18:10 | XMS_ITS | Encounter Summary ---
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 Gender Identity Not on file Sexual [...] st Contact Info) Description 12/18/2024 2:15 PM HEALTH AND WELLNESS COACH Office Visit [facility] - Neurology [facility] [address] [place] [address] Adeel Covarrubias MD [address] [place] [address] documented as of this encounter Visit Diagnoses Not on filedocumented in this encounter Care Teams Welding Manager Relationship Specialty Start Date End Date Watson Perry MD [address] [place] [address] PCP - General Family Medicine 01/25/18 Adeel Covarrubias MD [address] [place] [address] Consulting Physician Neurology 03/07/22 documented as of this encounter
--- OUTSIDE RECORDS SUMMARY | 2024-11-23 18:10 | XMS_ITS | Encounter Summary ---
Author Organization [facility] Address [address] [place] [address] Phone Care Team Providers Care Baggage Handling Supervisor Name Role Phone Watson Perry MD Primary Care Provider [phone] Adeel Covarrubias MD Unavailable [phone] Reason for Visit * Auth/Cert Specialty Diagnoses / Procedures Referred By Rhea laura Referred To Contact Diagnoses NONTOXIC SINGLE THYROID NODULE Procedures PRE / POST CARE FOR PROCEDURAL AREA Referral ID Status Reason Start Date Expiration Date Visits Re quested Visits Authorized [id number] 1 1 Encounter Details Date Type Department Care Team (Late st Contact Info) Description 09/19/2022 10:00 AM CDT - 09/19/2022 10:30 AM CDT Surgery [facility] [address] [place] [address] Provider, [place] On File [place] PRE / POST CARE FOR PROCEDURAL AREA- RIGHT THYROID BIOPSY Surgery Details Date/Time Status Location OR Service Patient Class Case Class Case Type Trauma Case? 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 [place]-3 Fatty Acids (FISH OIL PO) Take 2 [...] st Contact Info) Description 12/18/2024 2:15 PM BARBERING INSTRUCTOR Office Visit [facility] - Neurology [facility] [address] [place] [address] Adeel Covarrubias MD [address] [place] [address] documented as of this encounter Procedures Procedure Name Priority Date/Time Associated Diagnosis Comments PRE / POST CARE FOR PROCEDURAL AREA 09/19/2022 10:00 AM CDT NONTOXIC SINGLE THYROID NODULE SARS-COV-2 BY MOLECULAR STAT 09/19/2022 9:16 AM CDT documented in this encounter Results * SARS-COV-2 BY MOLECULAR (09/19/2022 9:16 AM CDT) SARSCOV2 NOT DETECTED (Referenc e Range for this test is Not Detected) [facility] MATTHEWS ID NOW 09/19/2022 9:43 AM CDT [facility] Comment:This test was perfor med by a MOLECULAR, NON-PCR method Other NASOPHARYNGEAL STRUCTURE / Unknown Non-Phlebotomy Collection / Unknown 09/19/2022 9:16 AM CDT 09/19/2022 9:17 AM CDT Narrative [facility] - 09/19/2022 9:43 AM CDT This [...] information for Clinicians can be found at: https://www.fda.gov/media/556005/download Additional information for Patients can be found at: https://www.fda.gov/media/139192/download Tripp Alvarez MD MICROBIOLOGY - GENERAL OR DERABLES Final Result [facility] #[address] [place] [address] documented in this encounter Visit Diagnoses Not on filedocumented in this encounter Care Teams Baggage Handling Supervisor Relationship Specialty Start Date End Date Watson Perry MD [address] [place] [address] PCP - General Family Medicine 01/25/18 Adeel Covarrubias MD [address] [place] [address] Consulting Physician Neurology 03/07/22 documented as of this encounter
--- OUTSIDE RECORDS SUMMARY | 2024-11-23 18:10 | XMS_ITS | Encounter Summary ---
Author Organization [facility] Address [address] [place] [address] Phone Care Team Providers Care Scanning Manager Name Role Phone Watson Perry MD Primary Care Provider Adeel Covarrubias MD Unavailable [phone] Reason for Referral * Radiology Services (Routine) - Closed Specialty Diagnoses / Procedures Referred By Rhea laura Referred To Contact Radiology Diagnoses Nontoxic single thyroid nodule Procedures US GUIDANCE AND THYROID FINE NEEDLE ASPIRATION US GUIDANCE AND THYROID BIOPSY Julieta Fleming PAC [address] [place] [address] Phone: tel: fax: Referral ID Status Reason Start Date Expiration Date Visits Re quested Visits Authorized [id number] Closed 09/05/2022 1 1 Encounter Details Date Type Department Care Team (Latest Contact Info) Description 09/05/[address] [facility] Central Scheduling [address] [place] [address] Julieta Fleming PAC [address] [place] [address] Nontoxic single thyroid nodule (Primary [...] on file Legal Sex Female 9:54 AM RF TEST ENGINEER Gender Identity Not on file Sexual [...] st Contact Info) Description 12/18/2024 2:15 PM RF TEST ENGINEER Office Visit [facility] [address] [place] [address] Adeel Covarrubias MD [address] [place] [address] documented as of this encounter Results * [...] 11:42 AM - Electronically signed by ??Tripp Alavrez M.D. AG: ALONZO D: ??09/19/2022 11:42 AM T: ??09/19/2022 11:42 AM Report ID: [id number] Reading Location: ??[id number] THIS IS AN ELECTRONICALLY VERIFIED FINAL REPORT 09/22/2022 1:20 PM ??Addendum Electronically signed by Tripp Alvarez M.D. AG: ALONZO D: ??09/22/2022 1:20 PM T: ??09/22/2022 1:20 PM Report ID: [id number] Reading Location: ??[id number] Impressions 09/19/2022 11:45 AM CDT IMPRESSION: Ultrasound [...] AM T: ??09/19/2022 11:42 AM Report ID: [id number] Reading Location: ??[id number] Procedure Note Tripp Alvarez MD - 09/19/2022 [...] Tripp Alvarez M.D. AG: ALONZO Report ID: [id number] Reading Location: [id number] IMPRESSION: Ultrasound guided fine-needle aspiration of a right thyroid nodule. Pathology is pending. us Julieta Fleming PAC IMG US ORDERABLES Edited Re gnio - Final documented in this encounter Visit Diagnoses Diagnosis Nontoxic single thyroid nodule- Primary Nontoxic uninodular goiter Nontoxic single thyroid nodule Nontoxic uninodular goiter documented in this encounter Care Teams Scanning Manager Relationship Specialty Start Date End Date Watson Perry MD [address] [place] [address] PCP - General Family Medicine 01/25/18 Adeel Covarrubias MD [address] [place] [address] Consulting Physician Neurology 03/07/22 documented as of this encounter
--- OUTSIDE RECORDS SUMMARY | 2024-11-23 18:10 | XMS_ITS | Encounter Summary ---
Author Organization [facility] Address [address] [place] [address] [place] [address] Phone Care Team Providers Care Associate Account Manager Name Role Phone Watson Perry MD Primary Care Provider [phone] Adeel Covarrubias MD Unavailable [phone] Reason for Visit * Auth/Cert Specialty Diagnoses / Procedures Referred By Rhea laura Referred To Contact Diagnoses NONTOXIC SINGLE THYROID NODULE Procedures PRE / POST CARE FOR PROCEDURAL AREA Referral ID Status Reason Start Date Expiration Date Visits Re quested Visits Authorized [id number] 1 1 Encounter Details Date Type Department Care Team (Late st Contact Info) Description 09/19/2022 9:01 AM CDT - 09/19/2022 11:05 AM CDT Hospital Encounter [facility] [address] [place] [address] Provider, Anesthesiologist Julieta Fleming, PAC [address] [place] [address] Discharge Disposition: Discharged to home or Selfcare [...] on file Legal Sex Female 9:54 AM COLON THERAPIST Gender Identity Not on file Sexual Orientation [...] PO) Take 1 % by mouth daily. [place]-3 Fatty Acids (FISH OIL PO) Take 2 [...] st Contact Info) Description 12/18/2024 2:15 PM COLON THERAPIST Office Visit [facility] [address] [place] [address] Adeel Covarrubias MD [address] [place] [address] documented as of this encounter Procedures Procedure Name Priority Date/Time Associated Diagnosis Comments PRE / POST CARE FOR PROCEDURAL AREA 09/19/2022 10:00 AM CDT NONTOXIC SINGLE THYROID NODULE SARS-COV-2 BY MOLECULAR STAT 09/19/2022 9:16 AM CDT documented in this encounter Results * SARS-COV-2 BY MOLECULAR (09/19/2022 9:16 AM CDT) SARSCOV2 NOT DETECTED (Referenc e Range for this test is Not Detected) [facility] MATTHEWS ID NOW 09/19/2022 9:43 AM CDT [facility] Comment:This test was perfor med by a MOLECULAR, NON-PCR method Other NASOPHARYNGEAL STRUCTURE / Unknown Non-Phlebotomy Collection / Unknown 09/19/2022 9:16 AM CDT 09/19/2022 9:17 AM CDT Narrative [facility] - 09/19/2022 9:43 AM [...] information for Clinicians can be found at: https://www.fda.gov/media/071090/download Additional information for Patients can be found at: https://www.fda.gov/media/948923/download Tripp Alvarez MD MICROBIOLOGY - GENERAL OR DERABLES Final Result [facility] #[address] [place] [address] documented in this encounter Visit Diagnoses Not on filedocumented in this encounter Care Teams Associate Account Manager Relationship Specialty Start Date End Date Watson Perry MD [address] [place] [address] PCP - General Family Medicine 01/25/18 Adeel Covarrubias MD [address] [place] [address] Consulting Physician Neurology 03/07/22 documented as of this encounter
--- OUTSIDE RECORDS SUMMARY | 2024-11-23 18:10 | XMS_ITS | Encounter Summary ---
Author Organization [facility] Address [address] [place] [address] Phone Care Team Providers Care Research Soil Scientist Name Role Phone Watson Perry MD Primary Care Provider [phone] Adeel Covarrubias MD Unavailable [phone] Reason for Visit * Auth/Cert (Routine) Specialty Diagnoses / Procedures Referred By Contac t Referred To Contact Referral ID Status Reason Start Date Expiration Date Visits Re quested Visits Authorized [id number] 1 1 Encounter Details Date Type Department Care Team (Latest Contact Info) Description 03/12/2024 12:00 PM CDT Home Care Visit [facility] [address] [place], [place] [phone] Jaylene Biggs RN SN - DISCIPLINE DISCHARGE [...] on file Legal Sex Female 9:54 AM 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 PRESS HELPER Gender Identity Not on file Sexual [...] st Contact Info) Description 12/18/2024 2:15 PM SPAGHETTI PRESS HELPER Office Visit [facility] - [facility]rology - [place] [address] [place] [address] Adeel Covarrubias MD [address] [place] [address] documented as of this encounter Visit Diagnoses Not on filedocumented in this encounter Home Health Visit - Care Plan Visit Details Visit Type -SN - DISCIPLINE DISCHARGE Discipline -Half-Way Problems Problem Description Start Date Status Goals Interve ntions FALL PREVENTION (O) Disciplines: SN, PT, OT, HOSPICE ENTRANCE ATTENDANT, HCA, STAPLING MACHINE OPERATOR, RT 03/05/2024 Active 1 goal linked to scheduled/documen zen intervention 1 goal intervention scheduled/document ed in this visit ALL VITAL SIGN PARAMETERS Disciplines: All Home Care 03/05/2024 Active - 1 problem intervention scheduled/document ed in this visit PAIN-MANAGEMENT /EDUCATION Disciplines: Skilled Clinicians 03/05/2024 Active 1 goal linked to scheduled/documen zen intervention 1 goal intervention scheduled/document ed in this visit SN DISCHARGE Disciplines: Half-Way SN Discharge 03/05/2024 Active - 2 problem interventions scheduled/document ed in this visit SN GENERAL ORDERS Disciplines: Half-Way SN General Orders 03/05/2024 Active 1 goal linked to scheduled/documen zen intervention 2 goal interventions scheduled/document ed in this visit SAFETY/PREVENTI ON EDUCATION Disciplines: Half-Way Safety/Preventio n Education 03/05/2024 Active - 1 [...] care. Clinical findings: Pt was admitted to [facility] due to a blankenship's [...] Work Focus: not ordered/needed at this time Survey Supervisor to provide: not ordered/needed at this time [...] Completed documented in this encounter Care Teams Research Soil Scientist Relationship Specialty Start Date End Date Watson Perry MD [address] [place] [address] PCP - General Family Medicine 01/25/18 Adeel Covarrubias MD [address] [place] [address] Consulting Physician Neurology 03/07/22 documented as of this encounter
--- OUTSIDE RECORDS SUMMARY | 2024-11-23 18:10 | XMS_ITS | Encounter Summary ---
Author Organization [facility] Address [address] [place] [address] Phone Care Team Providers Care Youth Manager Name Role Phone Watson Perry MD Primary Care Provider [phone] Adeel Covarrubias MD Unavailable [phone] Reason for Referral * Radiology Services (Routine) - Closed Specialty Diagnoses / Procedures Referred By Rhea laura Referred To Contact Radiology Diagnoses Thyroid nodule Procedures US THYROID Julieta Fleming PAC [address] [place] [address] Phone: tel: fax: Referral ID Status Reason Start Date Expiration Date Visits Re quested Visits Authorized [id number] Closed 10/22/2023 1 1 OL PSYCHOLOGY PROFESSOR Encounter Details Date Type Department Care Team (Latest Contact Info) Description 10/22/2023 [facility] 1 [place] [address] Julieta Fleming PAC [address] [place] [address] Thyroid nodule (Primary Dx) Social [...] on file Legal Sex Female 9:54 AM SCHOOL PSYCHOLOGY PROFESSOR Gender Identity Not on file Sexual Orientation Not on file documented as of this encounter Plan of Treatment Upcoming Encounters Date Type Department Care Team (Late st Contact Info) Description 12/18/2024 2:15 PM SCHOOL PSYCHOLOGY PROFESSOR Office Visit [facility] - Neurology [facility] #[address] [place] [address] Adeel Covarrubias MD [address] [place] [address] documented as of this encounter Results * US THYROID (10/27/2023 11:14 AM SCHOOL PSYCHOLOGY PROFESSOR) Anatomical Region Laterality Modality BODY N/A Ultrasound 10/30/2023 5:54 AM SCHOOL PSYCHOLOGY PROFESSOR Impressions 10/30/2023 5:57 AM SCHOOL PSYCHOLOGY PROFESSOR IMPRESSION: 1.7 cm TR3 right thyroid nodule [...] greater FNA recommended. Narrative 10/30/2023 5:57 AM SCHOOL PSYCHOLOGY PROFESSOR EXAM DESCRIPTION: ?? US THYROID REASON FOR [...] AM T: ??10/30/2023 5:54 AM Report ID: [id number] Reading Location: ??[id number] Procedure Note Marco Wallace MD - 10/30/2023 [...] Marco Wallace M.D. MZ: KARL Report ID: [id number] Reading Location: [place] [address] IMPRESSION: 1.7 cm TR3 right thyroid nodule [...] goiter documented in this encounter Care Teams Youth Manager Relationship Specialty Start Date End Date Watson Perry MD [address] [place] [address] PCP - General Family Medicine 01/25/18 Adeel Covarrubias MD [address] [place] [address] Consulting Physician Neurology 03/07/22 documented as of this encounter
--- OUTSIDE RECORDS SUMMARY | 2024-11-23 18:10 | XMS_ITS | Encounter Summary ---
Author Organization [facility] Address [address] [place] [address] Phone Care Team Providers Care Engineer And Geologist Name Role Phone Watson Coleman MD Primary Care Provider [phone] Nicholas Covarrubias MD Unavailable [phone] Reason for Referral * Consult, Test & Initiate Treatment (Less Than 4 Weeks) - Closed Specialty Diagnoses / Procedures Referred By Contac t Referred To Contact Diagnoses Essential tremor Nicholas Covarrubias MD [address] [place] [address] Phone: tel: fax: Ancelmo Hernandez MD [address] [place] [address] Phone: tel: fax: Referral ID Status Reason Start Date Expiration Date Visits Re quested Visits Authorized [id number] Closed 01/22/2024 1 1 Scheduling Instructions Janeth is being referred to the [facility] at [facility] with Dr. Hernandez or other specialist [...] RELEASE, Take by mouth., Disp: , Rfl: Rcrokhrwlxr-Gmzrsiixj-Jozkpz (TRELEGY ELLIPTA IN), take 1 Puff by [...] PO), Take by mouth., Disp: , Rfl: [place]-3 Fatty Acids (FISH OIL PO), Take by [...] disease without esophagitis Hyperlipidemia Anxiety and depression ING SHOVEL OPERATOR Reason for Visit * Reason Comments essential tremor Encounter Details Date Type Department Care Team (Late st Contact Info) Description 01/22/2024 9:45 AM LOGGING SHOVEL OPERATOR Office [facility] Neurology [facility] #[address] [place] [address] Nicholas Covarrubias MD [address] [place] [address] Essential tremor (Primary Dx); Moderate COPD (chronic [...] on file Legal Sex Female 9:54 AM LOGGING SHOVEL OPERATOR Gender Identity Not on file Sexual Orientation Not on file documented as of this encounter Last Filed Vital Signs Vital Sign Reading Time Taken Comments Blood Pressure 118/64 01/22/2024 9:47 AM LOGGING SHOVEL OPERATOR Pulse 62 01/22/2024 9:47 AM LOGGING SHOVEL OPERATOR Temperature 36.2 ??C (97.2 ??F) 01/22/2024 9:47 AM CS T Respiratory Rate 18 01/22/2024 9:47 AM LOGGING SHOVEL OPERATOR Oxygen Saturation 91% 01/22/2024 9:47 AM LOGGING SHOVEL OPERATOR Inhaled Oxygen Concentration - - Weight - [...] Diagnosis Date COPD (chronic obstructive pulmonary disease) ([facility]) GERD (gastroesophageal reflux disease) Hyperlipidemia [...] RELEASE, Take by mouth., Disp: , Rfl: Uyjzoawcssj-Cvrskbbnf-Evavev (TRELEGY ELLIPTA IN), take 1 Puff by [...] PO), Take by mouth., Disp: , Rfl: [place]-3 Fatty Acids (FISH OIL PO), Take by [...] Flexors 5/5 5/5 Wrist Extensors 5/5 5/5 Gear Cutting Machine Operator 5/5 5/5 Hip Flexors 5/5 5/5 Quadriceps [...] By: NICHOLAS COVARRUBIAS MD, 01/22/2024, 4:30 PM LOGGING SHOVEL OPERATOR Primary Care Physician: WATSON COLEMAN MD ING SHOVEL OPERATOR documented in this encounter Plan of Treatment Upcoming Encounters Date Type Department Care Team (Late st Contact Info) Description 12/18/2024 2:15 PM LOGGING SHOVEL OPERATOR Office Visit [facility] [address] [place] [address] Nicholas Covarrubias MD [address] [place] [address] Scheduled Referrals Name Type Priority Associated Diagnoses Order Schedule EXTERNAL NEUROLOGY REFERRAL Outpatient Referral Less Than 4 weeks Essential tremor Expected: 01/22/2024, Expires: 07/24/2024 documented as of this encounter Visit Diagnoses Diagnosis Essential tremor- Primary Essential and other specified forms of tremor Moderate COPD (chronic obstructive pulmonary disease) (HCC) Chronic airway obstruction, not elsewhere classified documented in this encounter Care Teams Engineer And Geologist Relationship Specialty Start Date End Date Watson Coleman MD [address] [place] [address] PCP - General Family Medicine 01/25/18 Nicholas Covarrubias MD [address] [place] [address] Consulting Physician Neurology 03/07/22 documented as of this encounter
--- OUTSIDE RECORDS SUMMARY | 2024-11-23 18:10 | XMS_ITS | Encounter Summary ---
Author Organization [facility] Address [address] [place] [address] Phone Care Team Providers Care Customs Investigator Name Role Phone Watson Perry MD Primary Care Provider [phone] Adeel Covarrubias MD Unavailable [phone] Reason for Visit * Reason Comments Medication Refill Encounter Details Date Type Department Care Team (Late st Contact Info) Description 03/16/2024 Refill [facility] [address] [place] [address] Adeel Covarrubias MD [address] [place] [address] Medication Refill Social History Tobacco [...] on file Legal Sex Female 9:54 AM MARINA DRY DOCK MANAGER Gender Identity Not on file Sexual [...] Dept 01/22/24 Office Visit Adeel Covarrubias MD [facility] Neurology [facility] Showing recent visits within past 365 days and meeting all other requirements Future Appointments No visits were found meeting these conditions. Showing future appointments within next 90 days and meeting all other requirements documented in this encounter Plan of Treatment Upcoming Encounters Date Type Department Care Team (Late st Contact Info) Description 12/18/2024 2:15 PM MARINA DRY DOCK MANAGER Office Visit [facility] - Neurology [facility] [address]2 [place] [address] Adeel Covarrubias MD [address] [place] [address] documented as of this encounter Visit Diagnoses Diagnosis Essential tremor Essential and other specified forms of tremor documented in this encounter Care Teams Customs Investigator Relationship Specialty Start Date End Date Watson Perry MD [address] [place] [address] PCP - General Family Medicine 01/25/18 Adeel Covarrubias MD [address] [place] [address] Consulting Physician Neurology 03/07/22 documented as of this encounter
--- OUTSIDE RECORDS SUMMARY | 2024-11-23 18:10 | XMS_ITS | Encounter Summary ---
Author Organization [facility] Address [address] [place] [address] Phone Care Team Providers Care Sub Master Name Role Phone Watson Perry MD Primary Care Provider [phone] Adeel Covarrubias MD Unavailable [phone] Encounter Details Date Type Department Care Team (Late st Contact Info) Description 07/31/2022 [facility]phone [facility] [address]2 [place] [address] Adeel Covarrubias MD [address] [place] [address] Social History Tobacco Use Types [...] file Legal Sex Female 9:54 AM DIRECTOR [facility] Gender Identity Not on file Sexual Orientation Not on file documented as of this encounter Miscellaneous Notes * Telephone Encounter - Norma Cabrera RN - 07/31/2022 2:45 PM CDT Primidone refill documented in this encounter Plan of Treatment Upcoming Encounters Date Type Department Care Team (Late st Contact Info) Description 12/18/2024 2:15 PM DIRECTOR [employer] Office Visit [facility] - Neurology [facility] [address] [place] [address] Adeel Covarrubias MD [address] [place] [address] documented as of this encounter Visit Diagnoses Diagnosis Essential tremor Essential and other specified forms of tremor documented in this encounter Care Teams Sub Master Relationship Specialty Start Date End Date Watson Perry MD [address] [place] [address] PCP - General Family Medicine 01/25/18 Adeel Covarrubias MD [address] [place] [address] Consulting Physician Neurology 03/07/22 documented as of this encounter
--- OUTSIDE RECORDS SUMMARY | 2024-11-23 18:10 | XMS_ITS | Encounter Summary ---
Author Organization [facility] Care Team Providers Care Multi Purpose Machine Operator Name Role Phone Watson Perry MD Primary Care Provider [phone] Adeel Covarrubias MD Unavailable [phone] Encounter Details Date Type Department Care Team [...] on file Legal Sex Female 9:54 AM ENTERTAINMENT REPORTER Gender Identity Not on file Sexual Orientation Not on file documented as of this encounter Plan of Treatment Upcoming Encounters Date Type Department Care Team (Late st Contact Info) Description 12/18/2024 2:15 PM ENTERTAINMENT REPORTER Office Visit [facility] [address] [place] [address] Adeel Covarrubias MD [address] [place] [address] documented as of this encounter Visit Diagnoses Not on filedocumented in this encounter Care Teams Multi Purpose Machine Operator Relationship Specialty Start Date End Date Watson Perry MD [address] [place] [address] PCP - General Family Medicine 01/25/18 Adeel Covarrubias MD [address] [place] [address] Consulting Physician Neurology 03/07/22 documented as of this encounter
--- OUTSIDE RECORDS SUMMARY | 2024-11-23 18:10 | XMS_ITS | Encounter Summary ---
Author Organization [facility] Address [address] [place] [address] [place] [address] Phone Care Team Providers Care Purchasing Buyer Name Role Phone Watson Perry MD Primary Care Provider [phone] Adeel Covarrubias MD Unavailable [phone] Reason for Referral * Radiology Services (Routine) - Closed Specialty Diagnoses / Procedures Referred By Contac t Referred To Contact Radiology Diagnoses Other disorders of lung Procedures CT CHEST W/O CONTRAST Julieta Fleming PAC [address] [place] [address] Phone: tel: fax: Referral ID Status Reason Start Date Expiration Date Visits Re quested Visits Authorized [id number] Closed 07/28/2022 1 1 Reason for Visit * Radiology Services (Routine) - Closed Specialty Diagnoses / Procedures Referred By Contac t Referred To Contact Radiology Diagnoses Other disorders of lung Procedures CT CHEST W/O CONTRAST Julieta Fleming PAC [address] [place] [address] Phone: tel: fax: Referral ID Status Reason Start Date Expiration Date Visits Re quested Visits Authorized [id number] Closed 07/28/2022 1 1 Encounter Details Date Type Department Care Team (Latest Contact Info) Description 08/09/2022 8:41 AM CDT - 08/09/2022 11:59 PM CDT Hospital Encounter [facility] [address] [place] [address] Julieta Fleming, PAC [address] [place] [address] Discharge Disposition: Discharged to home or Selfcare [...] on file Legal Sex Female 9:54 AM OIL FIELD OPERATOR Gender Identity Not on file Sexual [...] PO) Take 1 % by mouth daily. [place]-3 Fatty Acids (FISH OIL PO) Take 2 [...] st Contact Info) Description 12/18/2024 2:15 PM OIL FIELD OPERATOR [facility] Visit [facility] Neurology [facility] [address] [place] [address] Adeel Covarrubias MD [address] [place] [address] documented as of this encounter Procedures Procedure [...] AM T: ??08/11/2022 6:56 AM Report ID: [id number] Reading Location: ??[id number] Procedure Note Shalom Camargo MD - 08/11/2022 [...] Shalom Camargo M.D. BC: KRISHNA Report ID: [id number] Reading Location: [id number] IMPRESSION: 1. Progressive consolidation at the right [...] in 6-8 weeks is recommended. Julieta Fleming [facility] IMG CT ORDERABLES Final Res ult documented in this encounter Visit Diagnoses Diagnosis Other disorders of lung documented in this encounter Care Teams Purchasing Buyer Relationship Specialty Start Date End Date Watson Perry MD NPI: [id number] [place] [address] PCP - General Family Medicine 01/25/18 Adeel Covarrubias MD [address] [place] [address] Consulting Physician Neurology 03/07/22 documented as of this encounter
--- OUTSIDE RECORDS SUMMARY | 2024-11-23 18:10 | XMS_ITS | Encounter Summary ---
Author Organization [facility] Address [address] [place] [address] Phone Care Team Providers Care Survey Operations Director Name Role Phone Watson Perry MD Primary Care Provider [phone] Adeel Covarrubias MD Unavailable [phone] Reason for Visit * Reason Comments Medication Refill Encounter Details Date Type Department Care Team (Late st Contact Info) Description 12/20/2023 Refill [facility] [address] [place] [address] Adeel Covarrubias MD [address] [place] [address] Medication Refill Social History Tobacco [...] on file Legal Sex Female 9:54 AM TRANSMISSION TECHNICIAN Gender Identity Not on file Sexual [...] Dept 03/06/23 Office Visit Adeel Covarrubias MD [facility] Showing recent visits within past 365 days and meeting all other requirements Future Appointments Date Type Provider Dept 01/22/24 Appointment Adeel Covarrubias MD [facility] Neurology [facility] Ariess Santo Showing future appointments within next 90 days and meeting all other requirements SMISSION TECHNICIAN documented in this encounter Plan of Treatment Upcoming Encounters Date Type Department Care Team (Late st Contact Info) Description 12/18/2024 2:15 PM TRANSMISSION TECHNICIAN Office Visit [facility] [address] [place] [address] Adeel Covarrubias MD [address] [place] [address] documented as of this encounter Visit Diagnoses Diagnosis Essential tremor Essential and other specified forms of tremor documented in this encounter Care Teams Survey Operations Director Relationship Specialty Start Date End Date Watson Perry MD [address] [place] [address] PCP - General Family Medicine 01/25/18 Adeel Covarrubias MD [address] [place] [address] Consulting Physician Neurology 03/07/22 documented as of this encounter
--- OUTSIDE RECORDS SUMMARY | 2024-11-23 18:11 | XMS_ITS | Encounter Summary ---
Author Organization [facility] [employer] Care Team Providers Care Seat Nailer Name Role Phone Watson Perry MD Primary Care Provider [phone] Encounter Details Date Type Department Care Team [...] on file Legal Sex Female 9:54 AM OFFICE 365 CONSULTANT Gender Identity Not on file Sexual [...] st Contact Info) Description 12/18/2024 2:15 PM OFFICE 365 CONSULTANT Office Visit [facility] - Neurology [facility] [address] [place] [address] Adeel Covarrubias MD [address] [place] [address] documented as of this encounter Visit Diagnoses Not on filedocumented in this encounter Care Teams Seat Nailer Relationship Specialty Start Date End Date Watson Perry MD [address] [place] [address] PCP - General Family Medicine 01/25/18 documented as of this encounter
--- OUTSIDE RECORDS SUMMARY | 2024-11-23 18:11 | XMS_ITS | Encounter Summary ---
Author Organization [facility] [employer] Care Team Providers Care Printed Circuit Boards Router Name Role Phone Watson Perry MD Primary Care Provider [phone] Encounter Details Date Type Department Care Team [...] on file Legal Sex Female 9:54 AM RECEIVER STOCKER Gender Identity Not on file Sexual Orientation [...] st Contact Info) Description 12/18/2024 2:15 PM RECEIVER STOCKER Office Visit [facility] - Neurology [facility] [address] [place] [address] Adeel Covarrubias MD [address] [place] [address] documented as of this encounter Visit Diagnoses Not on filedocumented in this encounter Care Teams Printed Circuit Boards Router Relationship Specialty Start Date End Date Watson Perry MD [address] [place] [address] PCP - General Family Medicine 01/25/18 documented as of this encounter
--- OUTSIDE RECORDS SUMMARY | 2024-11-23 18:11 | XMS_ITS | Encounter Summary ---
Author Organization [facility] Address [address] [place] [address] Phone Care Team Providers Care Supervisory Training Specialist Name Role Phone Watson Coleman MD Primary Care Provider [phone] Reason for Referral * Other (Routine) - Closed Specialty Diagnoses / Procedures Referred By Contjesse t Referred To Contact Neurology Diagnoses Polyneuropathy Procedures NCVS/EMG GEORGE LOWERS Nicholas Wise MD Phone: tel: fax: Referral ID Status Reason Start Date Expiration Date Visits Re quested Visits Authorized [id number] Closed 08/27/2020 1 1 Reason for Visit * Reason Comments Follow-up essential tremor Encounter Details Date Type Department Care Team (Late st Contact Info) Description 08/27/2020 3:30 PM CDT [facility] [place] [address]1 [facility] [place] [address] Nicholas Wise MD [address] [place] [address] Polyneuropathy (Primary Dx); Essential tremor [...] on file Legal Sex Female 9:54 AM FLOOR LAYER HELPER Gender Identity Not on file Sexual Orientation Not on file COVID-19 Exposure Response Date Recorded In the last month, have you been in contact with someone who was confirmed or suspected to have Coronavirus / COVID-19? No / Unsure 11/30/2020 9:21 AM FLOOR LAYER HELPER documented as of this encounter Last Filed [...] Take by mouth., Disp: , Rfl: ??? [place]-3 Fatty Acids (FISH OIL PO), Take by [...] Flexors 5/5 5/5 Wrist Extensors 5/5 5/5 Stump Blower 5/5 5/5 Hip Flexors 5/5 5/5 Quadriceps [...] st Contact Info) Description 12/18/2024 2:15 PM FLOOR LAYER HELPER [facility] [address] [place] [address] Nicholas Wise MD [address] [place] [address] documented as of this encounter Results * NCVS/EMG GEORGE LOWERS (09/22/2020 9:00 AM FLOOR LAYER HELPER) Narrative Nicholas Wise MD - 09/22/2020 9:00 AM FLOOR LAYER HELPER Nicholas Wise MD ? 10/06/2020 ??2:46 PM [...] neuropathy documented in this encounter Care Teams Supervisory Training Specialist Relationship Specialty Start Date End Date Watson Coleman MD [address] [place] [address] PCP - General Family Medicine 01/25/18 documented as of this encounter
--- OUTSIDE RECORDS SUMMARY | 2024-11-23 18:11 | XMS_ITS | Encounter Summary ---
Author Organization [facility] Address [address] [place] [address] Phone Care Team Providers Care Cold Patcher Name Role Phone Watson Perry MD Primary Care Provider [phone] Adeel Covarrubias MD Unavailable [phone] Reason for Visit * Reason Comments Medication Refill Encounter Details Date Type Department Care Team (Late st Contact Info) Description 04/25/2021 Refill [facility] [address] [place] [address] Adeel Covarrubias MD [address] [place] [address] Medication Refill Social History Tobacco [...] on file Legal Sex Female 9:54 AM OUTSEWER Gender Identity Not on file Sexual Orientation Not on file documented as of this encounter Plan of Treatment Upcoming Encounters Date Type Department Care Team (Late st Contact Info) Description 12/18/2024 2:15 PM OUTSEWER Office Visit [facility] Neurology [facility] [address] [place] [address] Adeel Covarrubias MD [address] [place] [address] documented as of this encounter Visit Diagnoses [...] documented as of this encounter Care Teams Cold Patcher Relationship Specialty Start Date End Date Watson Perry MD [address] [place] [address] PCP - General Family Medicine 01/25/18 Adeel Covarrubias MD [address] [place] [address] Consulting Physician Neurology 03/07/22 documented as of this encounter
--- OUTSIDE RECORDS SUMMARY | 2024-11-23 18:11 | XMS_ITS | Encounter Summary ---
Author Organization [facility] Address [address] [place] [address] Phone Care Team Providers Care Librarian Special Library Name Role Phone Watson Perry MD Primary Care Provider [phone] Adeel Covarrubias MD Unavailable [phone] Reason for Visit * Auth/Cert Specialty Diagnoses / Procedures Referred By Rhea t Referred To Contact Diagnoses Hypoxia COVID-19 Wayne Gomez MD [address] [place] [address] Phone: tel: fax: Referral ID Status Reason Start Date Expiration Date Visits Re quested Visits Authorized [id number] 1 1 Encounter Details Date Type Department Care Team (Late st Contact Info) Description 05/28/2022 10:03 AM CDT - 05/28/2022 10:33 AM CDT Hospital Encounter [facility] - Medical Imaging - [place] [address] [place] [address] Hayde Workman APRN, RESIDENCE LIFE DIRECTOR [address] [place] [address] Discharge Disposition: Discharged to home or Selfcare [...] on file Legal Sex Female 9:54 AM BUSINESS UNIT LEADER Gender Identity Not on file Sexual Orientation [...] PO) Take 1 % by mouth daily. [place]-3 Fatty Acids (FISH OIL PO) Take 2 [...] st Contact Info) Description 12/18/2024 2:15 PM BUSINESS UNIT LEADER Office Visit [facility] #[address] [place] [address] Adeel Covarrubias MD [address] [place] [address] documented as of this encounter Procedures Procedure [...] AM T: ??05/28/2022 10:18 AM Report ID: [id number] Reading Location: ??[id number] Procedure Note Marco Wallace MD - 05/28/2022 [...] Marco Wallace M.D. MZ: KARL Report ID: [id number] Reading Location: [id number] IMPRESSION: No acute cardiopulmonary findings. Hayde Workman APRN, RESIDENCE LIFE DIRECTOR IMG DIAGNOSTIC OR DERABLES Final Result documented in this encounter Visit Diagnoses Not on filedocumented in this encounter Additional Health Concerns Infection Onset Date Last Indicated Resolved Time COVID - 19 05/28/2022 05/28/2022 05/28/2022 12:1 7 PM CDT documented as of this encounter Care Teams Librarian Special Library Relationship Specialty Start Date End Date Watson Perry MD [address] [place] [address] PCP - General Family Medicine 01/25/18 Adeel Covarrubias MD [address] [place] [address] Consulting Physician Neurology 03/07/22 documented as of this encounter
--- OUTSIDE RECORDS SUMMARY | 2024-11-23 18:11 | XMS_ITS | Encounter Summary ---
Author Organization [facility] [employer] Care Team Providers Care Equipment Manager Name Role Phone Watson Perry MD Primary Care Provider [phone] Adeel Covarrubias MD Unavailable [phone] Encounter Details Date Type Department Care Team [...] file Legal Sex Female 9:54 AM CLINICAL THERAPIST Gender Identity Not on file Sexual [...] Contact Info) Description 12/18/2024 2:15 PM CLINICAL THERAPIST Office Visit [facility] - Neu[facility] [address] [place] [address] Adeel Covarrubias MD [address] [place] [address] documented as of this encounter Visit Diagnoses Not on filedocumented in this encounter Additional Health Concerns Infection Onset Date Last Indicated Resolved Time COVID - 19 05/28/2022 05/28/2022 05/28/2022 12:1 7 PM CDT COVID - 19 Confirmed 05/28/2022 05/28/2022 022 12:16 AM CDT COVID - 19 05/28/2022 05/28/2022 05/29/2022 1:01 PM CDT documented as of this encounter Care Teams Equipment Manager Relationship Specialty Start Date End Date Watson Perry MD [address] [place] [address] PCP - General Family Medicine 01/25/18 Adeel Covarrubias MD [address] [place] [address] Consulting Physician Neurology 03/07/22 documented as of this encounter
--- OUTSIDE RECORDS SUMMARY | 2024-11-23 18:11 | XMS_ITS | Encounter Summary ---
Author Organization [facility] [employer] Care Team Providers Care Rn Teacher Name Role Phone Watson Perry MD Primary Care Provider [phone] Encounter Details Date Type Department Care Team [...] on file Legal Sex Female 9:54 AM SOFTWARE DEVELOPER MID LEVEL Gender Identity Not on file Sexual Orientation Not on file documented as of this encounter Plan of Treatment Upcoming Encounters Date Type Department Care Team (Late st Contact Info) Description 12/18/2024 2:15 PM SOFTWARE DEVELOPER MID LEVEL Office Visit [facility] - Neurology [facility] [address]2 [place] [address] Adeel Covarrubias MD [address] [place] [address] documented as of this encounter Visit Diagnoses Not on filedocumented in this encounter Care Teams Rn Teacher Relationship Specialty Start Date End Date Watson Perry MD [address] [place] [address] PCP - General Family Medicine 01/25/18 documented as of this encounter
--- OUTSIDE RECORDS SUMMARY | 2024-11-23 18:11 | XMS_ITS | Encounter Summary ---
Author Organization [facility] Address [address] [facility] [place] [address] Phone Care Team Providers Care Cream Tester Name Role Phone Watson Perry MD Primary Care Provider [phone] Reason for Visit * Reason Comments Tremors Peripheral Neuropathy * Consult, Test & Initiate Treatment (Routine) - Closed Specialty Diagnoses / Procedures Referred By Contac t Referred To Contact Neurology Diagnoses Polyneuropathy, unspecified Watson Perry MD [address] [place] [address] Phone: tel: fax: Adeel Covarrubias MD Phone: tel: fax: Referral ID Status Reason Start Date Expiration Date Visits Re quested Visits Authorized [id number] Closed 12 Encounter Details Date Type Department Care Team (Late st Contact Info) Description 03/04/2021 9:00 AM CDT Telemedicine [facility] - Neurology [facility] #[address] [place] [address] Adeel Covarrubias MD [address] [place] [address] Essential tremor (Primary Dx) Social History Tobacco [...] on file Legal Sex Female 9:54 AM LEAK INSPECTOR Gender Identity Not on file Sexual [...] Capsule ??? Multiple Vitamin (MULTIVITAMIN PO) ??? [place]-3 Fatty Acids (FISH OIL PO) ??? pramipexole [...] st Contact Info) Description 12/18/2024 2:15 PM LEAK INSPECTOR Office Visit [facility] - Neurology [facility] [address] [place] [address] Adeel Covarrubias MD [address] [place] [address] documented as of this encounter Visit Diagnoses Diagnosis Essential tremor- Primary Essential and other specified forms of tremor documented in this encounter Care Teams Cream Tester Relationship Specialty Start Date End Date Watson Perry MD [address] [place] [address] PCP - General Family Medicine 01/25/18 documented as of this encounter
--- OUTSIDE RECORDS SUMMARY | 2024-11-23 18:11 | XMS_ITS | Encounter Summary ---
Author Organization [facility] Address [address] [place] [address] Phone Care Team Providers Care Development Professional Name Role Phone Watson Perry MD Primary Care Provider [phone] Reason for Visit * Reason Comments Tingling Numbness Pain * Other (Routine) - Closed Specialty Diagnoses / Procedures Referred By Contac t Referred To Contact Neurology Diagnoses Polyneuropathy Procedures NCVS/EMG GEORGE LOWERS Adeel Covarrubias MD Phone: tel: fax: Referral ID Status Reason Start Date Expiration Date Visits Re quested Visits Authorized [id number] Closed 08/27/2020 1 1 Encounter Details Date Type Department Care Team (Late st Contact Info) Description 09/22/2020 9:00 AM SOLE LEATHER CUTTING MACHINE OPERATOR [facility] [address] [place] [phone] Adeel Covarrubias MD [address] [place] [phone] Polyneuropathy Discharge Disposition: Discharged to home or [...] on file Legal Sex Female 9:54 AM SOLE LEATHER CUTTING MACHINE OPERATOR Gender Identity Not on file Sexual Orientation Not on file COVID-19 Exposure Response Date Recorded In the last month, have you been in contact with someone who was confirmed or suspected to have Coronavirus / COVID-19? No / Unsure 09/22/2020 8:28 AM SOLE LEATHER CUTTING MACHINE OPERATOR documented as of this encounter Progress Notes * Adeel Covarrubias MD - 09/22/2020 9:00 AM CST Please refer to procedure note. LEATHER CUTTING MACHINE OPERATOR documented in this encounter Procedure Notes * [...] greater than left. Clinical correlation is recommended. LEATHER CUTTING MACHINE OPERATOR documented in this encounter Plan of Treatment Upcoming Encounters Date Type Department Care Team (Late st Contact Info) Description 12/18/2024 2:15 PM SOLE LEATHER CUTTING MACHINE OPERATOR [facility] [address] [place] [address] Adeel Covarrubias MD [address] [place] [address] documented as of this encounter Procedures Procedure Name Priority Date/Time Associated Diagnosis Comments NCVS/EMG GE[facility] L[facility]ERS Routine 09/22/2020 9 :00 AM SOLE LEATHER CUTTING MACHINE OPERATOR Polyneuropathy documented in this encounter Results * NCVS/EMG GEORGE LOWERS (09/22/2020 9:00 AM SOLE LEATHER CUTTING MACHINE OPERATOR) Narrative Adeel Covarrubias MD - 09/22/2020 9:00 AM SOLE LEATHER CUTTING MACHINE OPERATOR Adeel Covarrubias MD ? 10/06/2020 ??2:46 PM [...] neuropathy documented in this encounter Care Teams Development Professional Relationship Specialty Start Date End Date Watson Perry MD [address] [place] [address] PCP - General Family Medicine 01/25/18 documented as of this encounter
--- OUTSIDE RECORDS SUMMARY | 2024-11-23 18:11 | XMS_ITS | Encounter Summary ---
Author Organization [facility] Address [address] [place] [address] Phone Care Team Providers Care Precision Lens Polisher Name Role Phone Watson Perry MD Primary Care Provider [phone] Reason for Visit * Reason Onset Date Comments Need Order 06/22/2020 Lab Encounter Details Date Type Department Care Team (Late st Contact Info) Description 06/22/2020 Telephone [facility] - [facility] [place] [address] [place] [address] Adeel Covarrubias MD [address] [place] [phone] Need Order (Lab) Social History Tobacco Use [...] on file Legal Sex Female 9:54 AM LAB SCIENTIST Gender Identity Not on file Sexual Orientation [...] st Contact Info) Description 12/18/2024 2:15 PM LAB SCIENTIST [facility] [address] [place] [address] Adeel Covarrubias MD [address] [place] [address] documented as of this encounter Visit Diagnoses Diagnosis Polyneuropathy- Primary Unspecified hereditary and idiopathic peripheral neuropathy documented in this encounter Care Teams Precision Lens Polisher Relationship Specialty Start Date End Date Watson Perry MD [address] [place] [address] PCP - General Family Medicine 01/25/18 documented as of this encounter
--- OUTSIDE RECORDS SUMMARY | 2024-11-23 18:11 | XMS_ITS | Encounter Summary ---
Author Organization [facility] Address [address] [place] [address] Phone Care Team Providers Care Statistics Teacher Name Role Phone Watson Perry MD Primary Care Provider [phone] Reason for Visit * Reason Comments Vaginal Bleeding Encounter Details Date Type Department Care Team (Late st Contact Info) Description 12/26/2019 12:23 PM TOWER ATTENDANT - 12/26/2019 2:46 PM TOWER ATTENDANT Emergency [facility] Emergency [address] [place] [phone] Bere Simon, PAC [address] [place] [address] Postmenopausal bleeding Discharge Disposition: Discharged to home [...] on file Legal Sex Female 9:54 AM TOWER ATTENDANT Gender Identity Not on file Sexual Orientation Not on file documented as of this encounter Last Filed Vital Signs Vital Sign Reading Time Taken Comments Blood Pressure 125/78 12/26/2019 12:19 PM TOWER ATTENDANT Pulse 64 12/26/2019 12:19 PM TOWER ATTENDANT Temperature 36.8 ??C (98.3 ??F) 12/26/2019 12:[address] Respiratory Rate 16 12/26/2019 12:19 PM TOWER ATTENDANT Oxygen Saturation 94% 12/26/2019 12:19 PM TOWER ATTENDANT Inhaled Oxygen Concentration - - Weight 61.2 kg (135 lb) 12/26/2019 12:19 PM TOWER ATTENDANT Height 165.1 cm (5' 5 ) 12/26/2019 12:19 PM TOWER ATTENDANT Body Mass Index 22.47 12/26/2019 12:19 PM TOWER ATTENDANT documented in this encounter Discharge Instructions * Discharge Instructions* Bere Simon PAC - 12/26/2019 2:37 PM TOWER ATTENDANT Please followup with Dr. Sanford as scheduled. Please return if you have any worsening symptoms orif you are saturating a pad an hour for two consecutive hours. R ATTENDANT * Attachments The following attachments cannot be sent through Care Everywhere. * Endometrial Biopsy (Nepalese) documented in this encounter Medications at Time of Discharge citalopram (CELEXA) 20 MG Tablet Take 20 mg by mouth daily. esomeprazole (NEXIUM) 20 MG CAPSULE DELAYED RELEASE Take 20 mg by mouth every morning (before breakfast). Harrison-3 Fatty Acids (FISH OIL PO) Take 2 [...] ambulated with a steady gait upon exiting R ATTENDANT * Caroline Baldwin RN - 12/26/2019 1:45 PM CST Pt back in room. No new concerns at this time R ATTENDANT * Caroline Baldwin RN - 12/26/2019 1:10 PM CST Pt in US R ATTENDANT * Bere Simon, MONSERRAT - 12/26/2019 12:53 [...] take 1 Puff by inhalation daily. ??? Harrison-3 Fatty Acids (FISH OIL PO) Take by [...] file Gets together: Not on file Attends buddhist service: Not on file Active member of [...] Abnormality Status --------- ------ CBC with Auto Differential[[id number]] Abnormal Final result Please view results for [...] Claude Moore M.D. MARK: MARK Report ID: [id number] Reading Location: [id number] US PELVIS LIMITED WITH TRANSVAG & COLOR [...] Raffi Leahy MD at 12/27/2019 7:12 AM TOWER ATTENDANT R ATTENDANT R ATTENDANT * Stella Mckee RN - 12/26/2019 12:21 [...] and oriented x 4; speech is clear. R ATTENDANT documented in this encounter Plan of Treatment Upcoming Encounters Date Type Department Care Team (Late st Contact Info) Description 12/18/2024 2:15 PM TOWER ATTENDANT Office Visit [facility] - [facility] [address] [place] [address] Adeel Covarrubias MD [address] [place] [address] documented as of this encounter Procedures Procedure Name Priority Date/Time Associated Diagnosis Comments US PELVIS COMPLETE WITH TRANSVAG AND COLOR DOPPLER LMT-NON OB STAT 12/26/2019 1:38 PM TOWER ATTENDANT CBC WITH AUTO DIFFERENTIAL STAT 12/26/2019 12:57 PM TOWER ATTENDANT TYPE & SCREEN (CROSSMATCH CONVERTIBLE) STAT 12/26/2019 12:57 PM TOWER ATTENDANT APTT (PTT) STAT 12/26/2019 12:57 PM TOWER ATTENDANT PROTIME (PT) (PROTHROMBIN TIME) STAT 12/26/2019 12:57 PM TOWER ATTENDANT CMP (COMPREHENSIVE METABOLIC PANEL) STAT 12/26/2019 12:57 PM TOWER ATTENDANT COMPLETE BLOOD COUNT (CBC) WITH DIFF STAT 12/26/2019 12:57 PM TOWER ATTENDANT URINALYSIS REFLEX IF INDICATED BY ABNORMAL RESULTS STAT 12/26/2019 12:52 PM TOWER ATTENDANT documented in this encounter Results * US PELVIS COMPLETE WITH TRANSVAG AND COLOR DOPPLER LMT-NON OB (12/26/2019 1:38 PM TOWER ATTENDANT) Anatomical Region Laterality Modality Abdomen N/A Ultrasound 12/26/2019 1:50 PM TOWER ATTENDANT Impressions 12/26/2019 1:52 PM TOWER ATTENDANT IMPRESSION: ?? 1. ??Endometrial thickness measuring up to 0.6 cm. ??Endometrium is somewhat heterogeneous in echotexture with a small amount of fluid noted within endometrial canal. ??Correlation with recent dilatation and curettage findings is recommended. ??Gynecologic consultation is recommended. 2. ??Unremarkable sonographic appearance of the ovaries. Narrative 12/26/2019 1:52 PM TOWER ATTENDANT EXAM DESCRIPTION: ??US PELVIS COMPLETE WITH TRANSVAG [...] PM T: ??12/26/2019 1:50 PM Report ID: [id number] Reading Location: ??[id number] Procedure Note Claude Moore MD - 12/26/2019 [...] signed by Claude FLORES: MARK Report ID: [id number] Reading Location: [id number] IMPRESSION: 1. Endometrial thickness measuring up to 0.6 cm. Endometrium is somewhat heterogeneous in echotexture with a small amount of fluid noted within endometrial canal. Correlation with recent dilatation and curettage findings is recommended. Gynecologic consultation is recommended. 2. Unremarkable sonographic appearance of the ovaries. us Bere Trumbull Page PAC IMG US ORDERABLES Final Resu lt * (ABNORMAL) CBC with Auto Differential (12/26/2019 12:57 PM TOWER ATTENDANT) WBC 8.94 4.00 - 12.00 10(3)/mcL 12/26/2019 1:21 PM [facility] RBC 5.02 3.80 - 5.30 10(6)/mcL 12/26/2019 1:21 PM [facility] HEMOGLOBIN (HGB) 14.8 12.0 - 15.8 g/dL 12/26/2019 1:21 PM [facility] HEMATOCRIT (HCT) 47.7(H) 36.0 - 47.0 % 12/26/2019 1:21 PM [facility] MCV 95.0 82.0 - 96.0 fL 12/26/2019 1:21 PM [facility] MCH 29.5 26.0 - 34.0 pg 12/26/2019 1:21 PM [facility] MCHC 31.0 31.0 - 36.0 g/dL 12/26/2019 1:21 PM [facility] PLATELET COUNT 386 140 - 440 10(3)/mcL 12/26/2019 1:21 PM [facility] RDW 14.2 11.8 - 15.5 % 12/26/2019 1:21 PM [facility] MPV 8.5(L) 9.7 - 12.4 fL 12/26/2019 1:21 PM [facility] NEUTROPHILS 40.3(L) 47.0 - 73.0 % 12/26/2019 1:21 PM [facility] LYMPHOCYTES 47.4(H) 18.0 - 42.0 % 12/26/2019 1:21 PM [facility] MONOCYTES 7.7 4.0 - 12.0 % 12/26/2019 1:21 PM [facility] EOSINOPHILS 2.8 0.0 - 5.0 % 12/26/2019 1:21 PM [facility] BASOPHILS 1.8(H) 0.0 - 1.0 % 12/26/2019 1:21 PM [facility] ABSOLUTE NEUTROPHILS 3.60 1.60 - 7.70 10(3)/mcL 12/26/2019 1:21 PM TOWER ATTENDANT [facility] ABSOLUTE LYMPHOCYTES 4.24(H) 1.30 - 3.20 10(3)/[facility] 12/26/2019 1:21 PM TOWER ATTENDANT [facility] ABSOLUTE MONOCYTES 0.69 0.20 - 1.00 10(3)/[facility] 12/26/2019 1:21 PM TOWER ATTENDANT [facility] ABSOLUTE EOSINOPHIL 0.25 0.00 - 0.40 10(3)/[facility] 12/26/2019 1:21 PM TOWER ATTENDANT [facility] ABSOLUTE BASOPHILS 0.16(H) 0.00 - 0.10 10(3)/[facility] 12/26/2019 1:21 PM TOWER ATTENDANT [facility] NRBC PER 100 WBC 0 12/26/19 20 1:21 PM TOWER ATTENDANT [facility] Blood specimen (specimen) Venipuncture / Unknown 12/26/2019 12:57 PM TOWER ATTENDANT 12/26/2019 1:17 PM TOWER ATTENDANT us Bere Méndez Page PAC HEMATOLOGY ORDERABLES Final Result [facility] [address] [place] [address] * TYPE & SCREEN (CROSSMATCH CONVERTIBLE) (12/26/2019 12:57 PM TOWER ATTENDANT) ABO TYPING A 12/26/2019 2:09 PM TOWER ATTENDANT [facility] BLOOD BANK RH Positive 12/26/2019 2:09 PM TOWER ATTENDANT [facility] ABSC Negative 12/26/2019 2:09 PM TOWER ATTENDANT [facility]OD [facility] Blood specimen (specimen) Venipuncture / Unknown 12/26/2019 12:57 PM TOWER ATTENDANT 12/26/2019 1:17 PM TOWER ATTENDANT Bere Méndez Page PAC BLOOD BANK ORDERABLES Edited Result - Final [facility] BLOOD BANK [address] [place] [address] * Protime (PT) (Prothrombin Time) (12/26/2019 12:57 PM TOWER ATTENDANT) PROTIME-PATIENT 11.7 11.6 - 14.8 sec 12/26/2019 1:34 PM TOWER ATTENDANT [facility] INR 0.9 0.9 - 1.2 12/26/2019 1:34 PM TOWER ATTENDANT [facility] Comment: Therapeutic Ranges INR = 2.0-3.0: Venous thromb, atrial fib, pul embolism, tissue heart valve, ami. INR = 2.5-3.5: Mechanical heart valve Critical value for INR is >/= 4.5 Blood specimen (specimen) Venipuncture / Unknown 12/26/2019 12:57 PM TOWER ATTENDANT 12/26/2019 1:17 PM TOWER ATTENDANT Bere Simon PAC HEMATOLOGY ORDERABLES Final Result Performing Organization Address [facility] Co de Phone Number [facility] [address] [place] [address] * APTT (PTT) (12/26/2019 12:57 PM TOWER ATTENDANT) Pathologist [facility] PTT 28 24 - 36 sec 12/26/2019 1:34 PM TOWER ATTENDANT [facility] Blood specimen (specimen) Venipuncture / Unknown 12/26/2019 12:57 PM TOWER ATTENDANT 12/26/2019 1:17 PM TOWER ATTENDANT Narrative [facility] - 12/26/2019 1:34 PM TOWER ATTENDANT Therapeutic range for unfractionated heparin at 0.3-0.7 U/mL is an aPTT value in the range of 71-100 seconds. Critical value for the PTT test is >= 122 seconds. Bere Simon [facility] HEMATOLOGY ORDERABLES Final Result Performing Organization Address [facility] Co de Phone Number [facility] [address] [place] [address] * (ABNORMAL) CMP (Comprehensive Metabolic Panel) (12/26/2019 12:57 PM TOWER ATTENDANT) SODIUM 138 136 - 144 mmol/L 12/26/2019 1:40 PM [facility] POTASSIUM 4.5 3.5 - 5.1 mmol/L 12/26/2019 1:40 PM [facility] CHLORIDE 99(L) 100 - 110 mmol/L 12/26/2019 1:40 PM [facility] CO2, VENOUS 32 22 - 32 mmol/L 12/26/2019 1:40 PM [facility] ANION GAP 11.5 8.0 - 20.0 mmol/L 12/26/2019 1:40 PM [facility] GLUCOSE 104(H) 70 - 99 mg/dL 12/26/2019 1:40 PM [facility] BUN 11 8 - 23 mg/dL 12/26/2019 1:40 PM [facility] CREATININE, BLOOD 0.62 0.60 - 1.10 mg/dL 12/26/2019 1:40 PM [facility] BUN/CREATININE RATIO 18 12 - 20 ratio 12/26/2019 1:40 PM [facility] TOTAL PROTEIN 7.1 6.0 - 8.3 g/dL 12/26/2019 1:40 PM [facility] ALBUMIN 4.4 3.5 - 5.2 g/dL 12/26/2019 1:40 PM [facility] Comment: The colormetric methods used for the determination of Albumin may lead to falsely elevated test results in patients suffering from renal failure or insufficiency due to interference with other proteins. A/G RATIO 1.6 1.0 - 2.0 12/26/2019 1:40 PM [facility] CALCIUM 9.7 8.9 - 10.3 mg/dL 12/26/2019 1:40 PM [facility] T BILI <=0.2 <=1.2 mg/dL 12/26/2019 1:40 PM [facility] SGOT (AST) 20 <=32 U/L 12/26/2019 1:40 PM [facility] SGPT (ALT) 23 <=33 U/L 12/26/2019 1:40 PM TOWER ATTENDANT [facility] ALKALINE PHOSPHATASE 52 35 - 105 U/L 12/26/2019 1:40 PM TOWER ATTENDANT [facility] GFR, EST. NONAFRICAN >60 >=60 12/26/2019 1:40 PM TOWER ATTENDANT [facility] GFR, EST. >60 >=60 020 1:40 PM TOWER ATTENDANT [facility] Comment: Creatinine Clearance is the preferred criteria for selecting drug dose adjustments in renally impaired patients. ??The GFR is provided as additional pertinent clinical information. GFR is reported in mL/min/1.73 sq m. Blood specimen (specimen) Venipuncture / Unknown 12/26/2019 12:57 PM TOWER ATTENDANT 12/26/2019 1:17 PM TOWER ATTENDANT Bere Trumbull Page PAC CHEMISTRY ORDERABLES Final R esult [facility] [address] [place] [address] * (ABNORMAL) URINALYSIS REFLEX IF INDICATED BY ABNORMAL RESULTS (12/26/2019 12:52 PM TOWER ATTENDANT) SPECIFIC GRAVITY 1.010 1.003 - 1.030 12/26/2019 1:31 PM TOWER ATTENDANT [facility] URINE PH 6.0 5.0 - 9.0 12/26/2019 1:31 PM TOWER ATTENDANT [facility] WBC ESTERASE Negative Negative 12/26/2019 1:31 PM TOWER ATTENDANT [facility] NITRITE Negative Negative 12/26/2019 1:31 PM TOWER ATTENDANT [facility] PROTEIN, RANDOM URINE Negative Negative 12/26/2019 1:31 PM TOWER ATTENDANT [facility] URINE GLUCOSE, QUAL Negative Negative 12/26/2019 1:31 PM TOWER ATTENDANT [facility] URINE KETONES Negative Negative 12/26/2019 1:31 PM TOWER ATTENDANT [facility] UROBILINOGEN Normal Normal mg/dL 12/26/2019 1:31 PM TOWER ATTENDANT [facility] URINE BILIRUBIN Negative Negative 0 1:31 PM TOWER ATTENDANT [facility] URINE BLOOD 250 /uL(A) Negative sheila/ul 12/26/2019 1:31 PM TOWER ATTENDANT [facility] URINALYSIS COLOR Yellow 12/26/19 20 1:31 PM TOWER ATTENDANT [facility] URINALYSIS CLARITY Slightly Cloudy 12/26/2019 1:31 PM TOWER ATTENDANT [facility] WBC (Urine) 0-5 Negative, 0-5 /hpf 12/26/2019 1:31 PM TOWER ATTENDANT [facility] URINE RBC'S 21-50(A) Negative, 0-2 /hpf 12/26/2019 1:31 PM TOWER ATTENDANT [facility] EPITHELIAL CELLS Small amount /lpf 2019 1:31 PM TOWER ATTENDANT [facility] BACTERIA, URINE Moderate(A) Negative /hpf 12/26/2019 1:31 PM TOWER ATTENDANT [facility] Urine specimen (specimen) URINE SPECIMEN / Unknown Non-Phlebotomy Collection / Unknown 12/26/2019 12:52 PM TOWER ATTENDANT 12/26/2019 1:20 PM TOWER ATTENDANT us Bere Méndez Page PAC URINE ORDERABLES Final Resul t [facility] [address] [place] [address] documented in this encounter Visit Diagnoses Diagnosis Postmenopausal bleeding- Primary documented in this encounter Care Teams Statistics Teacher Relationship Specialty Start Date End Date Watson Perry MD [address] [place] [address] PCP - General Family Medicine 01/25/18 documented as of this encounter
--- OUTSIDE RECORDS SUMMARY | 2024-11-23 18:11 | XMS_ITS | Encounter Summary ---
Author Organization [facility] Address [address] [place] [address] Phone Care Team Providers Care Pattern Hand Name Role Phone Watson Perry MD Primary Care Provider [phone] Reason for Visit * Reason Onset Date Comments Medication Management 02/11/2021 gabapentin Encounter Details Date Type Department Care Team (Late st Contact Info) Description 02/11/2021 Telephone [facility] - [facility]rology - [place] [address] [place] [address] Adeel Covarrubias MD [address] [place] [address] Medication Management (gabapentin) Social History [...] on file Legal Sex Female 9:54 AM WEB APPLICATION DEVELOPER Gender Identity Not on file Sexual [...] st Contact Info) Description 12/18/2024 2:15 PM WEB APPLICATION DEVELOPER [facility] [address] [place] [address] Adeel Covarrubias MD [address] [place] [address] documented as of this encounter Visit Diagnoses Diagnosis Essential tremor- Primary Essential and other specified forms of tremor documented in this encounter Care Teams Pattern Hand Relationship Specialty Start Date End Date Watson Perry MD [address] [place] [address] PCP - General Family Medicine 01/25/18 documented as of this encounter
--- OUTSIDE RECORDS SUMMARY | 2024-11-23 18:11 | XMS_ITS | Encounter Summary ---
Author Organization [facility] [employer] Care Team Providers Care Twisting Frame Fixer Name Role Phone Watson Perry MD Primary Care Provider [phone] Encounter Details Date Type Department Care Team [...] on file Legal Sex Female 9:54 AM LINK TRAINER TEACHER Gender Identity Not on file Sexual Orientation Not on file COVID-19 Exposure Response Date Recorded In the last month, have you been in contact with someone who was confirmed or suspected to have Coronavirus / COVID-19? No / Unsure 09/22/2020 8:28 AM LINK TRAINER TEACHER documented as of this encounter Plan of Treatment Upcoming Encounters Date Type Department Care Team (Late st Contact Info) Description 12/18/2024 2:15 PM LINK TRAINER TEACHER Office Visit [facility] - Neurology [facility] [address] [place] [address] Adeel Covarrubias MD [address] [place] [address] documented as of this encounter Visit Diagnoses Not on filedocumented in this encounter Care Teams Twisting Frame Fixer Relationship Specialty Start Date End Date Watson Perry MD [address] [place] [address] PCP - General Family Medicine 01/25/18 documented as of this encounter
--- OUTSIDE RECORDS SUMMARY | 2024-11-23 18:11 | XMS_ITS | Encounter Summary ---
Author Organization [facility] Address [address] [place] [address] Phone Care Team Providers Care Card Placer Name Role Phone Watson Coleman MD Primary Care Provider [phone] Reason for Visit * Reason Comments Tremors polyneuropathy * Consult, Test & Initiate Treatment (Routine) - Closed Specialty Diagnoses / Procedures Referred By Contac t Referred To Contact Neurology Diagnoses Polyneuropathy, unspecified Watson Coleman MD [address] [place] [id number] Phone: tel: fax: Nicholas Covarrubias MD [address] [place] [address] Phone: tel: fax: Referral ID Status Reason Start Date Expiration Date Visits Re quested Visits Authorized [id number] Closed 1 12 Encounter Details Date Type Department Care Team (Late st Contact Info) Description 09/06/2021 9:00 AM CDT Office Visit [facility] - Neurology [facility] [address] [place] [address] Nicholas Covarrubias MD [address] [place] [address] Essential tremor (Primary Dx); Polyneuropathy; [...] on file Legal Sex Female 9:54 AM BANK MANAGER Gender Identity Not on file Sexual [...] Take by mouth., Disp: , Rfl: ??? Yale-3 Fatty Acids (FISH OIL PO), Take by [...] Flexors 5/5 5/5 Wrist Extensors 5/5 5/5 Air Vice Marshal 5/5 5/5 Hip Flexors 5/5 5/5 Quadriceps [...] By: NICHOLAS COVARRUBIAS MD, 09/28/2021, 3:33 PM BANK MANAGER Primary Care Physician: WATSON COLEMAN MD MANAGER documented in this encounter Plan of Treatment Upcoming Encounters Date Type Department Care Team (Late st Contact Info) Description 12/18/2024 2:15 PM BANK MANAGER Office Visit [facility] - Neurology [facility] [address] [place] [address] Nicholas Covarrubias MD [address] [place] [address] documented as of this encounter Visit Diagnoses Diagnosis Essential tremor- Primary Essential and other specified forms of tremor Polyneuropathy Unspecified hereditary and idiopathic peripheral neuropathy Restless leg syndrome Restless legs syndrome (RLS) documented in this encounter Care Teams Card Placer Relationship Specialty Start Date End Date Watson Coleman MD [address] [place] [id number] PCP - General Family Medicine 01/25/18 documented as of this encounter
--- OUTSIDE RECORDS SUMMARY | 2024-11-23 18:11 | XMS_ITS | Encounter Summary ---
Author Organization [facility] Address [address] [place] [address] Phone Care Team Providers Care Honey Extractor Name Role Phone Watson Perry MD Primary Care Provider [phone] Adeel Covarrubias MD Unavailable [phone] Reason for Visit * Reason Comments Care Management Transition of Care Flores 1 Encounter Details Date Type Department Care Team (Late st Contact Info) Description 06/13/2022 Care Management [facility] [employer] [address] [place] [address] Miriam Low, RN Care Management; [...] file Legal Sex Female 9:54 AM AWNING MAKER Gender Identity Not on file Sexual [...] none Oxygen: Yes Medications: Did the patient filler picker their medications from the pharmacy? Yes Is [...] Contact Info) Description 12/18/2024 2:15 PM AWNING MAKER [facility] [address] [place] [address] Adeel Covarrubias MD [address] [place] [address] documented as of this encounter Visit Diagnoses Not on filedocumented in this encounter Additional Health Concerns Infection Onset Date Last Indicated Resolved Time COVID - 19 Confirmed 05/28/2022 05/28/2022 022 12:16 AM CDT documented as of this encounter Care Teams Honey Extractor Relationship Specialty Start Date End Date Watson Perry MD [address] [place] [id number] PCP - General Family Medicine 01/25/18 Adeel Covarrubias MD [address] [place] [address] Consulting Physician Neurology 03/07/22 documented as of this encounter
--- OUTSIDE RECORDS SUMMARY | 2024-11-23 18:11 | XMS_ITS | Encounter Summary ---
Author Organization [facility] [employer] Care Team Providers Care Orthotist Or Prosthetist Name Role Phone Watson Perry MD Primary Care Provider [phone] Encounter Details Date Type Department Care Team [...] on file Legal Sex Female 9:54 AM LOOKBACK COORDINATOR Gender Identity Not on file Sexual [...] st Contact Info) Description 12/18/2024 2:15 PM LOOKBACK COORDINATOR Office Visit [facility] - Neurology [facility] [address] [place] [id number] Adeel Covarrubias MD [address] [place] [address] documented as of this encounter Visit Diagnoses Not on filedocumented in this encounter Care Teams Orthotist Or Prosthetist Relationship Specialty Start Date End Date Watson Perry MD [address] [place] [address] PCP - General Family Medicine 01/25/18 documented as of this encounter
--- OUTSIDE RECORDS SUMMARY | 2024-11-23 18:11 | XMS_ITS | Encounter Summary ---
Author Organization [facility] [employer] Care Team Providers Care Bath Solution Maker Name Role Phone Watson Perry MD Primary Care Provider [phone] Adeel Covarrubias MD Unavailable Encounter Details Date [...] file Legal Sex Female 9:54 AM DIRECTOR OF EPIDEMIOLOGY Gender Identity Not on file Sexual Orientation [...] Contact Info) Description 12/18/2024 2:15 PM DIRECTOR OF EPIDEMIOLOGY Office Visit [facility] - Neurology [facility] [address] [place] [address] Adeel Covarrubias MD [address] [place] [address] documented as of this encounter Visit Diagnoses Not on filedocumented in this encounter Additional Health Concerns Infection Onset Date Last Indicated Resolved Time COVID - 19 Confirmed 05/28/2022 05/28/2022 022 12:16 AM CDT documented as of this encounter Care Teams Bath Solution Maker Relationship Specialty Start Date End Date Watson Perry MD [address] [place] [address] PCP - General Family Medicine 01/25/18 Adeel Covarrubias MD [address] [place] [phone] Consulting Physician Neurology 03/07/22 documented as of this encounter
--- OUTSIDE RECORDS SUMMARY | 2024-11-23 18:11 | XMS_ITS | Encounter Summary ---
Author Organization [facility] Address [address] [place] [address] Phone Care Team Providers Care Retail Beauty Specialist Name Role Phone Lyla Perry MD Primary Care Provider [phone] Adeel Covarrubias MD Unavailable [phone] Reason for Referral * Radiology Services (Routine) - Closed Specialty Diagnoses / Procedures Referred By Contac t Referred To Contact Radiology Diagnoses COVID-19 Procedures ADULT TRANS THORACIC ECHO 2D COMPLT W CONT Jessi Fontanez MD [address] [place] [address] Phone: tel: fax: Referral ID Status Reason Start Date Expiration Date Visits Re quested Visits Authorized [id number] Closed 06/04/2022 1 1 * Consult, Test & Initiate Treatment (Routine) - Denied Specialty Diagnoses / Procedures Referred By Contac t Referred To Contact Endocrinology Diagnoses COVID-19 Jessi Fontanez MD [address] [place] [address] Phone: tel: fax: [facility] - Endocrinology [facility] [address] [place] [address] Phone: tel: fax: Referral ID Status Reason Start Date Expiration Date Visits Re quested Visits Authorized [id number] Denied 06/04/2022 1 1 Scheduling Instructions Janeth [...] Diagnoses Hypoxia COVID-19 Wayne Gomez MD [address] [place] [address] Phone: tel: fax: Referral ID Status Reason Start Date Expiration Date Visits Re quested Visits Authorized [id number] 1 1 Encounter Details Date Type Department Care Team (Latest Contact Info) Description 05/28/2022 10:34 AM CDT - 06/04/2022 11:39 AM CDT Hospital Encounter [facility] Medical/Surgical Intensive Care [address] [place] [address] Danny Morales MD [address] [place] [address] Wayne Gomez MD [address] [place] [address] Jessi Fontanez MD [address] [place] [address] Acute respiratory failure with hypoxia (HCC) Discharge [...] on file Legal Sex Female 9:54 AM EXTERNAL RELATIONS DIRECTOR Gender Identity Not on file Sexual [...] MD - 06/04/2022 9:23 AM CDT [facility] DIS[facility] SUMMARY Name: Janeth Parker Age: 72 [...] to be followed up by PCP and associate material handler as well. As part of discharge, patient [...] 6.4 (H) 06/02/2022 No results found for: [id number] Lab Results Component Value Date TROPONINI <0.300 05/29/2022 TROPONINI <0.300 05/28/2022 No results found for: FERRITIN No components found for: FOLATE Lab Results Component Value Date PHARTERIAL 7.44 05/31/2022 PO2ART 51 (L) 05/31/2022 [id number] 78 (HH) 05/31/2022 O2ART 85 (L) 05/31/2022 [...] Thank you very much for allowing the [facility] Adult Hospitalist Service to participate in the care of this patient. If you have any questions, please don't hesitate to call. Signed: Jessi Fontanez MD, 06/04/2022, 9:23 AM CDT documented in this encounter Discharge Instructions * Discharge Instructions* Rose Simms RN - 06/04/2022 9:29 AM CDT [facility] doctor has ordered. The agency will call you to schedule initial visit prior to your hospital discharge or within a business day of your hospital discharge. If you have not been contacted to schedule your initial visit or need to contact the agency, [facility] [phone]. [facility] is providing your home oxygen . This will be delivered to your bedside (concentrator to home). If you have questions regarding your equipment, please call [phone]. [facility] This will be delivered to your bedside. * Discharge Instr - Diet* Amanda Bowles RN - 06/04/2022 10:13 AM CDT Regular Diet * Appointments* Jessi Fontanez MD - 06/04/2022 9:16 AM CDT COVID [...] continuously. Pending follow up with PCP and Layout Inspector for re-evaluation and possible titration down / off oxygen supplementation. Outpatient labs: 06/08/2022 --- CBC, BMP Outpatient echocardiogram --- 06/08/2022 -- pending scheduling time slot, please contact Central Scheduling in am on 06/05/2022. Follow up with PCP in 1 week --- pending scheduling Follow up with Layout Inspector in 2 weeks --- pending scheduling * Attachments The following attachments cannot be sent through Care Everywhere. * Fall Prevention in the Home Adult (Puerto [place]ican) * Home Oxygen Use Adult ([place]ican) * Shortness of Breath Adult [id number]-gg-[id number] ([place]ican) * Hyperglycemia ([place]ican) documented in this encounter Medications at Time [...] PO) Take 1 % by mouth daily. [place]-3 Fatty Acids (FISH OIL PO) Take 2 [...] MD - 06/03/2022 1:25 PM CDT [facility] IN[facility]IENT DAILY PROGRESS NOTE Janeth Parker is [...] worsening respiratory status noted. Transfer to ICU, Air Defense Artillery Senior Sergeant consulted, and patient placed onto Bipap 06/01/2022 [...] PHARTERIAL 7.44 05/31/2022 PO2ART 51 (L) 05/31/2022 [id number] 78 (HH) 05/31/2022 O2ART 85 (L) 05/31/2022 [...] LACTICA 0.7 05/28/2022 No results found for: [id number] No results found for: FERRITIN Lab Results Component Value Date GLUCOSEPOCT 101 (H) 06/03/2022 EKG: EKG 12 LEAD Result Date: 05/29/2022 Sinus rhythm Comparison Summary: No serial comparison made Summary: Normal ECG Confirmed by Patrick Banks [id number] on 05/29/2022 12:06:21 PM Imaging: No results found. By: Jessi Fontanez MD, 06/03/2022 1:26 PM CDT * Jessi Fontanez MD - 06/02/2022 4:00 PM CDT [facility] IN[facility]IENT DAILY PROGRESS NOTE Janeth Parker is [...] worsening respiratory status noted. Transfer to ICU, Air Defense Artillery Senior Sergeant consulted, and patient placed onto Bipap 06/01/2022 [...] PHARTERIAL 7.44 05/31/2022 PO2ART 51 (L) 05/31/2022 [id number] 78 (HH) 05/31/2022 O2ART 85 (L) 05/31/2022 [...] LACTICA 0.7 05/28/2022 No results found for: [id number] No results found for: FERRITIN Lab Results Component Value Date GLUCOSEPOCT 131 (H) 05/29/2022 EKG: EKG 12 LEAD Result Date: 05/29/2022 Sinus rhythm Comparison Summary: No serial comparison made Summary: Normal ECG Confirmed by Patrick Banks [id number] on 05/29/2022 12:06:21 PM Imaging: CT ANGIO [...] MD - 06/01/2022 5:50 PM CDT [facility] DAILY PROGRESS NOTE Janeth Parker is [...] worsening respiratory status noted. Transfer to ICU, Air Defense Artillery Senior Sergeant consulted, and patient placed onto Bipap 06/01/2022 [...] transferred ICU and being placed on BiPAP. [employer] Senior Sergeant consultation was obtained. Present time, patient has [...] PHARTERIAL 7.44 05/31/2022 PO2ART 51 (L) 05/31/2022 [id number] 78 (HH) 05/31/2022 O2ART 85 (L) 05/31/2022 [...] LACTICA 0.7 05/28/2022 No results found for: [id number] No results found for: FERRITIN Lab Results Component Value Date GLUCOSEPOCT 131 (H) 05/29/2022 EKG: EKG 12 LEAD Result Date: 05/29/2022 Sinus rhythm Comparison Summary: No serial comparison made Summary: Normal ECG Confirmed by Patrick Banks [id number] on 05/29/2022 12:06:21 PM Imaging: No results found. By: Jessi Fontanez MD, 06/01/2022 5:50 PM CDT * Jaron Woodard MD - 06/01/2022 12:29 PM CDT INPATIENT PROGRESS NOTE - Air [employer] Senior Sergeant Janeth Parker is a 72 y.o. female [...] Q12H enoxaparin, 40 mg, Nightly fluticasone, 2 [place], Daily ipratropium-albuterol, 2 Puff, 4x Daily pantoprazole, [...] 1 Tablet, BID PRN sodium chloride, 2 [place], PRN Lab Review Lab Results Component Value [...] PHARTERIAL 7.44 05/31/2022 PO2ART 51 (L) 05/31/2022 [id number] 78 (HH) 05/31/2022 O2ART 85 (L) 05/31/2022 [...] worsening respiratory status noted. Transfer to ICU, Air [employer] Senior Sergeant consulted, and patient placed onto Bipap 2. [...] status noted. Patient hasbeen transferred to ICU. [employer] Senior Sergeant consulted. Review of Systems: A 14 point [...] PHARTERIAL 7.44 05/31/2022 PO2ART 51 (L) 05/31/2022 [id number] 78 (HH) 05/31/2022 O2ART 85 (L) 05/31/2022 [...] LACTICA 0.7 05/28/2022 No results found for: [id number] No results found for: FERRITIN Lab Results Component Value Date GLUCOSEPOCT 131 (H) 05/29/2022 EKG: EKG 12 LEAD Result Date: 05/29/2022 Sinus rhythm Comparison Summary: No serial comparison made Summary: Normal ECG Confirmed by Patrick Banks [id number] on 05/29/2022 12:06:21 PM Imaging: XR CHEST SINGLE VIEW PORTABLE Result Date: 05/31/2022 IMPRESSION: Redemonstration of slight bibasilar airspace opacities; no pleural effusion. By: Jessi Fontanez MD, 05/31/2022 9:17 PM CDT * Jessi Fontanez MD - 05/30/2022 10:53 PM CDT [facility] DAILY PROGRESS NOTE Janeth Parker is [...] PHARTERIAL 7.32 (L) 05/28/2022 PO2ART 76 05/28/2022 [id number] 51 (H) 05/28/2022 O2ART 92 (L) 05/28/2022 [...] LACTICA 0.7 05/28/2022 No results found for: [id number] No results found for: FERRITIN Lab Results Component Value Date GLUCOSEPOCT 131 (H) 05/29/2022 EKG: EKG 12 LEAD Result Date: 05/29/2022 Sinus rhythm Comparison Summary: No serial comparison made Summary: Normal ECG Confirmed by Patrick Banks [id number] on 05/29/2022 12:06:21 PM Imaging: CT HEAD [...] MD - 05/29/2022 5:24 PM CDT [facility] DAILY PROGRESS NOTE Janeth Parker is [...] PHARTERIAL 7.32 (L) 05/28/2022 PO2ART 76 05/28/2022 [id number] 51 (H) 05/28/2022 O2ART 92 (L) 05/28/2022 [...] LACTICA 0.7 05/28/2022 No results found for: [id number] No results found for: FERRITIN Lab Results Component Value Date GLUCOSEPOCT 131 (H) 05/29/2022 EKG: EKG 12 LEAD Result Date: 05/29/2022 Sinus rhythm Comparison Summary: No serial comparison made Summary: Normal ECG Confirmed by Patrick Banks [id number] on 05/29/2022 12:06:21 PM Imaging: No results found. By: Wayne Gomez MD, 05/29/2022 5:24 PM CDT documented in this encounter H&P Notes * Edwige Reeyz APRN, TECH INTERN - 05/28/2022 7:24 PM CDT Images from the original note were not included. HOSPITALIST ADMISSION HISTORY & PHYSICAL EXAM PATIENT NAME: Janeth Parker, : 1950, MR#[id number] CHIEF COMPLAINT Shortness of breath HPI Janeth [...] 0900 Yes Yes Sig: Take by mouth. [place]-3 Fatty Acids (FISH OIL PO) 05/28/2022 at [...] Type Start Date End Date Comment Verified Liquor Grinder Mill Operator Ibuprofen Unknown 01-Feb-2018 Severity: Medium Reactions: Rosina Spicer, Selam I, RADIO INTERFERENCE EXPERT REVIEW OF SYSTEMS: Review of Systems Constitutional: [...] Component Value Date PHARTERIAL 7.32 (L) 05/28/2022 [id number] 51 (H) 05/28/2022 PO2ART 76 05/28/2022 O2ART [...] with patient and/or family and/or Power of Office Assistant approximately 16 minutes. Discussed CPR/Intubation/Treatment Goals/Quality of [...] saw and examined the patient with the CABLE COVERER/PA on 05/28/2022. I personally performed the exam and medical decision making. I agree with the CABLE COVERER/PA???s chief complaint, history, exam, and medical decision documented in this encounter Consult Notes * Jaron Woodard MD - 05/31/2022 1:04 PM CDT Images from the original note were not included. CALCINER FEEDER CONSULT Janeth Parker was admitted with the [...] 0900 Yes Yes Sig: Take by mouth. [place]-3 Fatty Acids (FISH OIL PO) 05/28/2022 at [...] Type Start Date End Date Comment Verified Liquor Grinder Mill Operator Ibuprofen Unknown 01-Feb-2018 Severity: Medium Reactions: Rash Selam Spicer I, RADIO INTERFERENCE EXPERT REVIEW OF SYSTEMS: Limited since the patient [...] Bhupendra Coleman M.D. RB: PAULA Report ID: [id number] Reading Location: [place] [address] Labs Reviewed SARS-COV-2 BY MOLECULAR - Abnormal; [...] information for Clinicians can be found at: https://www.fda.gov/media/447486/download Additional information for Patients can be found at: https://www.fda.gov/media/612716/download BLOOD GASES, ARTERIAL W/ O2 SATURATION - [...] Abnormality Status --------- ------ CBC with Auto Differential[[id number]] Abnormal Final result Please view results for [...] this encounter Miscellaneous Notes * Interdisciplinary - Amanda Bowles RN - 06/04/2022 11:03 AM CDT [...] I, or a nurse practitioner or physician???s support assistant working with me, had a cmzc-lm-[id number] encounter with her that meets the requirements [...] services (Describe what the RN, PT, or DONOR SERVICES MANAGER and other services will be doing in [...] Type Start Date End Date Comment Verified Liquor Grinder Mill Operator Ibuprofen Unknown 01-Feb-2018 Severity: Medium Reactions: Rash Selam Spicer I, RADIO INTERFERENCE EXPERT Immunizations: Immunization History Administered Date(s) Administered ??? Covid-19, Mrna, Lnp-s, Pf, 30 Mcg/0.3 Ml Dose ([employer]) 12/22/2020, 01/28/2021, 09/16/2021 She has a past [...] Physician Statement: I have personally had a ncpf-ug-qphe encounter with Janeth Parkerand am personally completing this referral order. I certify Janeth Parker meets the criteria forpsychiatric hospital based on my findings and that [...] Plan Notification/ Verification 1. Patient's Phone numbers: [phone] (home) 2. Patient's preferred discharge phone number [...] if applicable Medicare Notice Given to Responsible Alliance Party: Yes, in person Date Form Given to Patient/Responsible Alliance Party: 06/04/22 Decision Maker / Caregiver Information Medical Decision Maker Assessment: Patient is medical decision-maker Medical Decision Maker, if patient unable: n/a * Interdisciplinary - Teo Hudson - 06/04/2022 9:05 AM CDT Dock Associate - Transition Arrangements Coordinated Note - Transition Specialists do not coordinate all transitions or aspects of transitions- CONFIRM PATIENT READINESS WITH DEEP SEA DIVER PRIOR TO DISCHARGE Park Warden notified: yes, notified Rose at the following [...] identified Bed Mobility Bed Mobility: supine-sit Supine-Sit [place] (Bed Mobility): standby assist Assistive Device (Bed [...] cues to utilize grab bar. Gait Mobility [place] Level (Gait): set up, verbal cues, standby [...] supported BADL Assessment/Intervention: grooming, toileting Grooming Assessment/Training [place] Level (Grooming): wash face, hands, stand by assist, verbal cues Position (Grooming): sink side Comment (Grooming): Verbal cues for walker placement for sink side ADL. Toileting Assessment/Training [place] Level (Toileting): modified independence, perform perineal hygiene Position (Toileting): supported sitting General Interventions Planned Therapy Interventions (OT Eval): (see POC) Functional Outcome Measure Used: [place] AM-PAC 6 Clicks Daily Activity How much [...] sating at 87%. Patient is NSR on night monitor. Call light in reach, alarms on. No acute distress noted. Patient updated to plan of care. AGUSTÍN PENN RN * Jimena Wilson - 06/02/2022 11:53 AM CDT Case Management Patient / Patient Cap Parts Cutter Contact Note Janeth's readmission risk level (if [...] Plan: Home Health () 05/29/22 Patient/ patient credit and collections 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's preferences regarding the discharge plan: [facility] IM Letter Documentation, if applicable Medicare Notice Given to Responsible Alliance Party: Yes, in person Date Form Given to Patient/Responsible Alliance Party: 05/29/22 Decision Maker / Water Tender Information Medical Decision Maker Assessment: Patient is medical decision-maker Medical Decision Maker, if patient unable: n/a No new referrals for Dock Associate at this time. * Interdisciplinary - Agustín Penn RN - 06/02/2022 6:47 AM CDT Patient report given to BORIS Patel. Patient resting in bed. Patient A&Ox4. Vital Signs per flowsheet. SpO2 91% on 1.5L per NC. Patient is sinus rhythm on night monitor. Call light within reach. Bed alarm [...] 91% on 2.5L. Patient is SR on night monitor. Vital signs per flowsheet. IV drip [...] 1:09 PM CDT * Otoniel - Lázaro Myleen BORIS Bradley - 06/01/2022 7:10 AM CDT [...] light within reach. Bed alarm on. * Myelne Barahona RN - 05/31/2022 4:03 PM CDT Still poor pleth on earlobe, nasal probe placed on nasal skin. Much better pleth now. * Mylene Barahona RN - 05/31/2022 1:00 PM CDT Spo2 probe placed on earlobe d/t poor pleth from tremors in hands and feet. * Deya Chi - 05/31/2022 12:06 PM CDT Case Management Patient / Patient Cap Parts Cutter Contact Note Janeth's readmission risk level (if [...] Plan: Home Health (HH) 05/29/22 Patient/ patient credit and collections 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's preferences regarding the discharge plan: [facility] IM Letter Documentation, if applicable Medicare Notice Given to Responsible Alliance Party: Yes, in person Date Form Given to Patient/Responsible Alliance Party: 05/29/22 Decision Maker / Water Tender Information Medical Decision Maker Assessment: Patient is medical decision-maker Medical Decision Maker, if patient unable: n/a No new referrals for Dock Associate at this time. * Interdisciplinary - Alysia Leach RN - 05/31/2022 10:57 AM CDT Report called to SALT MANAGER February, patient transported to unit. * Plan [...] Teo Hudson - 05/29/2022 4:34 PM CDT Dock Associate Coordination Note SUMMARY - Dock Associate currently working the potential transition plan(s): ??? 05/29/2022 @ 4:34 PM CDT (JOSUÉ, PHUONG) Home Health [GRADUATE ASSISTANT ATHLETIC TRAINER] (See detail within the referral type(s) below for information on what is needed to complete coordination Note - the Transition Specialists do not coordinate all transition types - please direct all question regarding hospital transition to the Park Warden) Readmission risk level (if calculated) is: 1-Low Primary Care Provider: PCP: LYLA PERRY MD Primary Medical Coverage: Aet Medicare Hmo Secondary Medical Coverage: N/A Home Health Referral Status: pending Referral Type: New Provider who will sign on-going Home Health Plan of Care: PCP: LYLA PERRY MD Home Health Services Needed: mcc Needed Information / Documentation to complete Home Health coordination: ??? IP Consult to Home Health ??? Confirmed Discharge Date [facility] - initial Contact is [facility] ??? 05/29/2022 @ 4:34 PM CDT (JOSUÉ, PHUONG) referral sent to [facility] intake via [employer] in basket message * Plan of Care - Ankita Robins, RN - 05/29/2022 4:19 PM CDT Case Management Comprehensive Assessment Janeth's readmission risk level (if calculated) is: 1-Low Patient Class: Inpatient Consecutive Inpatient Midnights 1 Actual day(s) of hospital stay (compare to working DRG): 1 Reason for Park WardenPipe Cleaning Machine Operator: Consult for Discharge planning needs; COVID + [...] insurance. Pt denies issues obtaining/affording medication from [facility] in [place]. She does not have a HCPOA and declines information at this time. Janeth is not a 30 day re-hospitalization. Plan of Care (Problem/ situation/ barrier + goals/ milestones + interventions + evaluation of progress = Plan of Care) Hospital Plan: Day 2 of remdesivir, wean 6L oxygen Anticipated Discharge Plan: Home Health (HH) 05/29/22 Patient/ patient credit and collections 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's preferences regarding the discharge plan: [facility] [...] if applicable Medicare Notice Given to Responsible Alliance Party: Yes, in person Date Form Given to Patient/Responsible Alliance Party: 05/29/22 Decision Maker / Water Tender Information Patient is medical decision-maker Medical Decision Maker, if patient unable: n/a New referral(s) for Dock Associate Home Health Agency [GRADUATE ASSISTANT ATHLETIC TRAINER] Agency Choice(s) ??? [facility] List of Medicare approved HH agencies with quality measures and resource data (with any financial affiliations disclosed and/ or in network providers identified as applicable) provided to patient / family: Yes Provider who will be signing the ongoing Home Health plan of care: LYLA PERRY MD (Note: at least one PRIMARY service of mcc, physical therapy or speech is required to meet medical necessity criteria for GRADUATE ASSISTANT ATHLETIC TRAINER) Home Health Services Needed: mcc Anticipated Needs: disease management and education * [...] Transition of Care 05/29/2022 0556 by Alexis iM, RN Outcome: Ongoing (see interventions/notes) 05/29/2022 0555 [...] Skin assessment completed by this nurse and water quality assistant, no open areas. Bruises present to bilateral forearms. documented in this encounter Plan of Treatment Upcoming Encounters Date Type Department Care Team (Late st Contact Info) Description 12/18/2024 2:15 PM EXTERNAL RELATIONS DIRECTOR Office Visit [facility] - Neurology [facility] [address] [place] [address] Adeel Covarrubias MD [address] [place] [address] Scheduled Orders Name Type Priority Associated Diagnoses [...] name ?JAYA Mathews ? 1950 Patient ID ([facility]) ?[id number] ? Study Date06/14/2022 Technical quality: Adequate Type [...] (BSA) ? 22.61 kg/m^2 ? (1.72 m^2) Passenger Elevator Operator ?Shaq Duffy Interpreting ? Jitendra Ignacio ?Referring Physician ?Darren ?Physician Procedure Note Darren Kidd MD - 06/14/2022 Transthoracic Echocardiography Report (TTE) Patient name JAYA Mathews Lisa 1950 Patient ID ([facility]) [id number] Study Date06/14/2022 Technical quality: Adequate Type of [...] lbs. BMI (BSA) 22.61 kg/m^2 (1.72 m^2) Passenger Elevator Operator Shaq Duffy Interpreting Jitendra Ignacio Referring Physician Darren Physician Jessi Iyer MD IMG ECHO ORDERABLES Edited Re sult - Final * PT/INR Routine (06/04/2022 4:41 AM CDT) Only the most recent of7 resultswithin the time period is included. PROTIME-PATIENT 12.7 11.6 - 14.8 sec 06/04/2022 5:08 AM CDT [facility] INR 1.0 0.9 - 1.2 06/04/2022 5:08 AM CDT [facility] Comment: Therapeutic Ranges INR = 2.0-3.0: Venous thromb, atrial fib, pul embolism, tissue heart valve, ami. INR = 2.5-3.5: Mechanical heart valve Critical value for INR is >/= 4.5 Blood BLOOD SPECIMEN / Unknown Venipuncture / Unknown 06/04/2022 4:41 AM CDT 06/04/2022 4:51 AM CDT Jessi Iyer MD HEMATOLOGY ORDERABLES Final R esult [facility] [address] [place] [address] * (ABNORMAL) CBC with Auto Differential (06/04/2022 3:53 AM CDT) Only the most recent of8 resultswithin the time period is included. WBC 7.37 4.00 - 12.00 10(3)/mcL 06/04/2022 4:09 AM CDT [facility] RBC 4.71 3.80 - 5.30 10(6)/mcL 06/04/2022 4:09 AM CDT [facility] HEMOGLOBIN (HGB) 14.6 12.0 - 15.8 g/dL 06/04/2022 4:09 AM CDT [facility] HEMATOCRIT (HCT) 44.9 36.0 - 47.0 % 06/04/2022 4:09 AM CDT [facility] MCV 95.3 82.0 - 96.0 fL 06/04/2022 4:09 AM CDT [facility] MCH 31.0 26.0 - 34.0 pg 06/04/2022 4:09 AM CDT [facility] MCHC 32.5 31.0 - 36.0 g/dL 06/04/2022 4:09 AM CDT [facility] PLATELET COUNT 316 140 - 440 10(3)/mcL 06/04/2022 4:09 AM CDT [facility] RDW 12.6 11.8 - 15.5 % 06/04/2022 4:09 AM CDT [facility] MPV 8.1(L) 9.7 - 12.4 fL 06/04/2022 4:09 AM CDT [facility] NEUTROPHILS 45.9(L) 47.0 - 73.0 % 06/04/2022 4:09 AM CDT [facility] LYMPHOCYTES 47.8(H) 18.0 - 42.0 % 06/04/2022 4:09 AM CDT [facility] MONOCYTES 4.9 4.0 - 12.0 % 06/04/2022 4:09 AM CDT [facility] EOSINOPHILS 0.9 0.0 - 5.0 % 06/04/2022 4:09 AM CDT [facility] BASOPHILS 0.5 0.0 - 1.0 % 06/04/2022 4:09 AM CDT [facility] ABSOLUTE NEUTROPHILS 3.38 1.60 - 7.70 10(3)/mcL 06/04/2022 4:09 AM CDT [facility] ABSOLUTE LYMPHOCYTES 3.52(H) 1.30 - 3.20 10(3)/mcL 06/04/2022 4:09 AM CDT [facility] ABSOLUTE MONOCYTES 0.36 0.20 - 1.00 10(3)/mcL 06/04/2022 4:09 AM CDT [facility] ABSOLUTE EOSINOPHIL 0.07 0.00 - 0.40 10(3)/mcL 06/04/2022 4:09 AM CDT [facility] ABSOLUTE BASOPHILS 0.04 0.00 - 0.10 10(3)/mcL 06/04/2022 4:09 AM CDT [facility] NRBC PER 100 WBC 0 06/04/20 4:09 AM CDT [facility] Blood BLOOD SPECIMEN / Unknown Venipuncture / Unknown 06/04/2022 3:53 AM CDT 06/04/2022 4:01 AM CDT us Jessi Iyer MD HEMATOLOGY ORDERABLES Final R esult [facility] [address] [place] [address] * (ABNORMAL) CMP (Comprehensive Metabolic Panel) (06/04/2022 3:53 AM CDT) Only the most recent of8 resultswithin the time period is included. SODIUM 132(L) 136 - 144 mmol/L 06/04/2022 4:34 AM CDT [facility] POTASSIUM 3.9 3.5 - 5.1 mmol/L 06/04/2022 4:34 AM CDT [facility] CHLORIDE 94(L) 100 - 110 mmol/L 06/04/2022 4:34 AM CDT [facility] CO2, VENOUS 31 22 - 32 mmol/L 06/04/2022 4:34 AM CDT [facility] ANION GAP 10.9 8.0 - 20.0 mmol/L 06/04/2022 4:34 AM CDT [facility] GLUCOSE 93 70 - 99 mg/dL 06/04/2022 4:34 AM CDT [facility] BUN 12 8 - 23 mg/dL 06/04/2022 4:34 AM T [facility] CREATININE, BLOOD 0.48(L) 0.60 - 1.10 mg/dL 06/04/2022 4:34 AM [facility] BUN/CREATININE RATIO 25(H) 12 - 20 ratio 06/04/2022 4:34 AM [facility] TOTAL PROTEIN 5.7(L) 6.0 - 8.3 g/dL 06/04/2022 4:34 AM T [facility] ALBUMIN 3.5 3.5 - 5.2 g/dL 06/04/2022 4:34 AM [facility] Comment: The colormetric methods used for the determination of Albumin may lead to falsely elevated test results in patients suffering from renal failure or insufficiency due to interference with other proteins. A/G RATIO 1.6 1.0 - 2.0 06/04/2022 4:34 AM [facility] CALCIUM 8.9 8.9 - 10.3 mg/dL 06/04/2022 4:34 AM [facility] T BILI 0.3 <=1.2 mg/dL 06/04/2022 4:34 AM [facility] SGOT (AST) 28 <=32 U/L 06/04/2022 4:34 AM [facility] SGPT (ALT) 25 <=41 U/L 06/04/2022 4:34 AM [facility] ALKALINE PHOSPHATASE 60 35 - 105 U/L 06/04/2022 4:34 AM [facility] GFR, EST. NONAFRICAN >60 >=60 06/04/2022 4:34 AM [facility] GFR, EST. >60 >=60 022 4:34 AM [facility] Comment: Creatinine Clearance is the preferred criteria for selecting drug dose adjustments in renally impaired patients. ??The GFR is provided as additional pertinent clinical information. GFR is reported in mL/min/1.73 sq m. Blood Venipuncture / Unknown 06/04/2022 3:53 AM CDT 06/04/2022 4:01 AM CDT us Jessi Iyer MD CHEMISTRY ORDERABLES Final Re sult Performing Organization Address City/[facility] Co de Phone Number [facility] [address] [place] [address] * (ABNORMAL) POCT Glucose (06/03/2022 9:05 PM CDT) Only the most recent of5 resultswithin the time period is included. [facility] Signature GLUCOSE,BEDSID E POCT 119(H) 70 - 99 mg/dL 06/03/2022 9:10 PM CDT [facility] Blood 06/03/2022 9:05 PM CDT 06/03/2022 9:10 PM CDT us None Provider POINT OF CARE TESTING Final Resu lt Performing Organization Address [facility] Co de Phone Number [facility] [address] [place] [address] * CT ANGIO CHEST W/WO CONTRAST WITH [...] PM T: ??06/02/2022 12:48 PM Report ID: [id number] Reading Location: ??[id number] Procedure Note Tripp Alvarez MD - 06/02/2022 [...] Tripp Alvarez M.D. AG: ALONZO Report ID: [id number] Reading Location: [place] [address] IMPRESSION: 1. Persistent lower lobe bronchial wall [...] 227.0 pg/mL 06/02/2022 5:25 AM CDT [facility] Comment:NT-proBNP values < 3 00 pg/mL [...] of 89% and 72% for acute CHF. ([facility] data) Blood Venipuncture / Unknown 06/02/2022 4:15 AM CDT 06/02/2022 4:47 AM CDT Jessi Iyer MD CHEMISTRY ORDERABLES Final Re sult Performing Organization Address [facility] Co de Phone Number [facility] [address] [place] [address] * (ABNORMAL) Hemoglobin A1C w/ Estimated Glucose (06/02/2022 4:15 AM CDT) HGB-A1C 6.4(H) 4.0 - 6.0 % 06/02/2022 5:17 AM CDT [facility] Est Average Glucose 137.0 mg/dL 06/02/2022 5:17 AM CDT [facility] Blood Venipuncture / Unknown 06/02/2022 4:15 AM CDT 06/02/2022 4:47 AM CDT Narrative [facility] - 06/02/2022 5:17 AM CDT HEMOGLOBIN A1C: DIABETIC PATIENTS: WELL-CONTROLLED: ?? 6.2 - 7.0 INTERMEDIATE WELL-CONTROLLED: ??7.0 - 9.0 POORLY-CONTROLLED: ??>9.0 Jessi Iyer MD CHEMISTRY ORDERABLES Final Re sult Performing Organization Address [facility] Co de Phone Number [facility] [address] [place] [address] * (ABNORMAL) D-Dimer (06/01/2022 5:51 AM CDT) [facility] D DIMER 0.51(H) <0.50 mcg/mL FEU 06/01/2022 6:38 AM CDT [facility] Blood Venipuncture / Unknown 06/01/2022 5:51 AM CDT 06/01/2022 5:51 AM CDT Narrative [facility] - 06/01/2022 6:38 AM CDT The FDA has approved this method to exclude the diagnosis of DVT and/or PE at the cutoff value of <0.50 mcg/mL FEU. Jaron Hernandez MD HEMATOLOGY ORDERABLES Tiffanie rick Result [facility] [address] [place] [address] * (ABNORMAL) Blood Gases, Arterial w/ O2 Saturation (05/31/2022 1:05 PM CDT) Only the most recent of3 resultswithin the time period is included. [facility] O2 STATUS bipap 17/7, 30% FiO2 05/31/2022 1:11 PM CDT [facility] PH ARTERIAL 7.44 7.35 - 7.45 05/31/2022 1:11 PM CDT [facility] PC02 (ARTERIAL) 78(HH) 35 - 45 mmHg 05/31/2022 1:11 PM CDT [facility] PO2 (ARTERIAL) 51(L) 75 - 100 mmHg 05/31/2022 1:11 PM CDT [facility] O2 SAT ART, MEASURED 85(L) 94 - 100 % 05/31/2022 1:11 PM CDT [facility] BASE ARTERIAL 0.0 -2.0 - 2.0 mmol/L 05/31/2022 1:11 PM CDT [facility] BICARBONATE 53.0(H) 22.0 - 26.0 mmol/L 05/31/2022 1:11 PM CDT [facility] ZOILA'S TEST RESULTS Positive - Right Radial 05/31/2022 1:11 PM CDT [facility] CARBOXYHEMOGLOBIN 0.3 0.0 - 5.0 % 05/31/2022 1:11 PM CDT [facility] METHEMOGLOBIN 0.5 0.0 - 1.5 % 05/31/2022 1:11 PM CDT [facility] ART Blood Gas Arterial Punctur e / Unknown 05/31/2022 1:05 PM CDT 05/31/2022 1:07 PM CDT us Jessi Iyer MD CHEMISTRY ORDERABLES Final Re sult [facility] [address] [place] [address] * XR CHEST SINGLE VIEW PORTABLE (05/31/2022 [...] AM T: ??05/31/2022 11:24 AM Report ID: [id number] Reading Location: ??[id number] Procedure Note Huan Back MD - 05/31/2022 [...] Huan Back M.D. VAN: VAN Report ID: [id number] Reading Location: [id number] IMPRESSION: Redemonstration of slight bibasilar airspace opacities; [...] PM T: ??05/30/2022 4:46 PM Report ID: [id number] Reading Location: ??[id number] Procedure Note Ahsan Quan MD - 05/30/2022 [...] Ahsan Quan M.D. ML: ML Report ID: [id number] Reading Location: [place] [address] IMPRESSION: 1. No acute intracranial findings. Calvarium [...] <0.300 <=0.300 ng/mL 05/29/2022 6:35 AM CDT [facility] Blood Venipuncture / Unknown 05/29/2022 4:40 AM CDT 05/29/2022 5:58 AM CDT Edwige Reyez APRN, CNP CHEMISTRY ORDERABLES Final Result [facility] [address] [place] [address] * (ABNORMAL) SARS-COV-2 BY MOLECULAR (05/28/2022 12:02 PM CDT) SARSCOV2 DETECTED(A ) (Reference Range for this test is Not Detected) [facility] ID NOW B 05/28/2022 12:17 PM CDT [facility] Comment:This test was perfor med by a MOLECULAR, NON-PCR method Other NASAL STRUCTURE / Unknown Non-Phlebotomy Collection / Unknown 05/28/2022 12:02 PM CDT 05/28/2022 12:05 PM CDT Narrative [facility] - 05/28/2022 12:17 PM CDT This [...] information for Clinicians can be found at: https://www.fda.gov/media/684104/download Additional information for Patients can be found at: https://www.fda.gov/media/800980/download Danny Morales MD MICROBIOLOGY - GENERAL ORDERABLES Final Result Performing Organization Address [facility] Co de Phone Number [facility] [address] [place] [address] * Lactic Acid (Lactate) Serum (05/28/2022 11:00 AM CDT) LACTIC ACID 0.7 0.5 - 2.0 mmol/L 05/28/2022 11:33 AM CDT [facility] Blood Venipuncture / Unknown 05/28/2022 11:00 AM CDT 05/28/2022 11:13 AM CDT Danny Morales MD CHEMISTRY ORDERABLES F inal Result Performing Organization Address City/[facility] Co de Phone Number [facility] [address] [place] [address] * Erythrocyte Sedimentation Rate (ESR) (05/28/2022 11:00 AM CDT) ESR (SED RATE, ERYTHROCYTE SEDIMENTATION RATE) 19 <30 mm/h 05/28/2022 11:23 AM CDT [facility] Comment: Patients presenting with increased level of fibrinogen, gamma globulins, or abnormally shaped RBCs could affect the results for the erythrocyte sedimentation rate (ESR). Results should be clinically correlated. Blood Venipuncture / Unknown 05/28/2022 11:00 AM CDT 05/28/2022 11:13 AM CDT us Danny Morales MD HEMATOLOGY ORDERABLES Final Result Performing Organization Address [facility] de Phone Number [facility] [address] [place] [address] * EKG 12 LEAD (05/28/2022 10:41 AM CDT) Ventricular Rate BPM EXTERNAL EKG Atrial Rate BPM EXTERNAL EKG P-R Interval 146 ms EXTERNAL EKG QRS Duration 90 ms EXTERNAL EKG Q-T Duration 394 ms EXTERNAL EKG QTC CALCULATION 432 ms EXTERNAL EKG P Sunman 67 degrees EXTERNAL EKG R Sunman 63 degrees EXTERNAL EKG T Sunman 69 degrees EXTERNAL EKG 05/28/2022 10:4 1 AM CDT Impressions EXTERNAL EKG - 05/29/2022 12:06 PM CDT Sinus rhythm Comparison Summary: No serial comparison made Summary: Normal ECG Confirmed by Jitendra Banks [id number] on 05/29/2022 12:06:21 PM Narrative Procedure Note Darren Kidd MD - 05/29/2022 IMPRESSION: Sinus rhythm Comparison Summary: No serial comparison made Summary: Normal ECG Confirmed by Jitendra Banks [id number] on 05/29/2022 12:06:21 PM us Danny Morales MD IMG ECG ORDERABLES Fin al Result Performing Organization Address [facility] Co de Phone Number EXTERNAL EKG * [...] Sun05/28/22 at 2000, Until Sun05/30/22 at 0938 [facility] 05/28/2022 11:00 PM CDT 75 mL/hr acetaminophen (TYLENOL) suppository 650 mg 650 mg, Rectal, EVERY 4 HOURS PRN, Starting on 05/28/22 at 1928, Until 06/04/22 at 1339, Mild pain or more severe pain if patient requests, Fever, If patient is taking oral intake without complications and both PO/AR orders are active, administer through the oral route. acetaminophen (TYLENOL) tablet 650 mg 650 mg, Oral, EVERY 4 HOURS PRN, Starting on 05/28/22 at 1928, Until Sun06/04/22 at 1339, Mild pain or more severe pain if patient requests, Fever, If patient is taking oral intake without complications and both PO/AR orders are active, administer through the oral [...] ft Abdomen fluticasone (FLONASE) nasal spray 2 [place] 2 [place], Nasal, DAILY, First dose on Margarita 06/01/22 [...] chloride (OCEAN) 0.65 % nasal spray 2 [place] 2 [place], Nasal, PRN, Starting on Sun06/01/22 at 0852, [...] Discontinued 07 (Given - Provider: Tati Dunbar, TABLET TESTER)2058 (Given - Provider: Rickey Mon, TABLET TESTER) 08 (Given - Provider: Erin East, TABLET TESTER)2006 (Given - Provider: Tati Dunbar, TABLET TESTER) 0824 (Given - Provider: Lauryn Quiroz, CASH MANAGEMENT ASSOCIATE) citalopram (CeleXA) tablet 20 mg 20 mg, [...] 0800, Until Discontinued 0809 (Given - Provider: Amanda Bowles RN) enoxaparin (LOVENOX) injection 40 mg 40 mg, Subcutaneous, NIGHTLY, First dose on Sun05/28/22 at 2100, Until Discontinued 2017 (Given - Provider: Erin Rey RN) 2041 (Given - Provider: Nkechi Franco RN) fluticasone (FLONASE) nasal spray 2 [place] 2 [place], Nasal, DAILY, First dose on Sun06/01/22 at [...] Pharmacy 0746 (Given - Provider: Tati Dunbar, TABLET TESTER)1108 (Given - Provider: Miriam Zhu, TABLET TESTER)1601 (Given - Provider: Tati Dunbar, TABLET TESTER)2058 (Given - Provider: Rickey Mon, TABLET TESTER) 08 (Given - Provider: Erin East, TABLET TESTER)1136 (Given - Provider: Erin East, TABLET TESTER)1546 (Given - Provider: Erin East, TABLET TESTER)2006 (Given - Provider: Tati Dunbar, TABLET TESTER) 0824 (Given - Provider: Lauryn Quiroz, CASH MANAGEMENT ASSOCIATE)1100 (Due) pantoprazole (PROTONIX) tablet 40 mg 40 [...] on the MAR. 0900 (Acknowledged - Provider: Amanda Bowles RN) [...] taking oral intake without complications and both PO/AR orders are active, administer through the oral route. acetaminophen (TYLENOL) tablet 650 mg(Linked Group 1) 650 mg, Oral, EVERY 4 HOURS PRN, Starting on 05/28/22 at 1928, Until 06/04/22 at 1339, Mild pain or more severe pain if patient requests, Fever, If patient is taking oral intake without complications and both PO/AR orders are active, administer through the oral [...] chloride (OCEAN) 0.65 % nasal spray 2 [place] 2 [place], Nasal, PRN, Starting on [facility] 06/01/22 at 0852, Until 06/04/22 at 1339, Congestion Linked Groups Order Group 1: acetaminophen (TYLENOL) tablet 650 mgJump to med 650 mg, Oral, EVERY 4 HOURS PRN, Starting on Sun05/28/22 at 1928, Until Sun06/04/22 at 1339, Mild pain or more severe pain if patient requests, Fever, If patient is taking oral intake without complications and both PO/AR orders are active, administer through the oral route. Or acetaminophen (TYLENOL) suppository 650 mgJump to med 650 mg, Rectal, EVERY 4 HOURS PRN, Starting on Sun05/28/22 at 1928, Until Sun06/04/22 at 1339, Mild pain or more severe pain if patient requests, Fever, If patient is taking oral intake without complications and both PO/AR orders are active, administer through the oral [...] documented as of this encounter Care Teams Retail Beauty Specialist Relationship Specialty Start Date End Date Lyla Perry MD [address] [place] [id number] PCP - General Family Medicine 01/25/18 Adeel Covarrubias MD [address] [place] [address] Consulting Physician Neurology 03/07/22 documented as of this encounter
--- OUTSIDE RECORDS SUMMARY | 2024-11-23 18:11 | XMS_ITS | Encounter Summary ---
Author Organization [facility] Address [address] [place] [address] Phone Care Team Providers Care Pre Kindergarten Teacher Name Role Phone Watson Coleman MD Primary Care Provider Nicholas Covarrubias MD Unavailable [phone] Reason for Visit * Reason Comments essential tremor * Consult, Test & Initiate Treatment (Routine) - Closed Specialty Diagnoses / Procedures Referred By Contac t Referred To Contact Neurology Diagnoses Essential tremor Watson Coleman MD [address] [place] [address] Phone: tel: fax: Nicholas Covarrubias MD [address] [place] [address] Phone: tel: fax: Referral ID Status Reason Start Date Expiration Date Visits Re quested Visits Authorized [id number] Closed 11 30 Encounter Details Date Type Department Care Team (Late st Contact Info) Description 03/07/2022 9:00 AM CDT Office Visit [facility] - Neurology [facility] [address] [place] [address] Nicholas Covarrubias MD [address] [place] [address] Essential tremor (Primary Dx); Restless [...] on file Legal Sex Female 9:54 AM RETAIL EXPERIENCE SPECIALIST Gender Identity Not on file Sexual [...] Take by mouth., Disp: , Rfl: ??? [place]-3 Fatty Acids (FISH OIL PO), Take by [...] Flexors 5/5 5/5 Wrist Extensors 5/5 5/5 Academic Department Chair 5/5 5/5 Hip Flexors 5/5 5/5 Quadriceps [...] st Contact Info) Description 12/18/2024 2:15 PM RETAIL EXPERIENCE SPECIALIST Office Visit [facility] - Neurology [facility] [address] [place] [address] Nicholas Covarrubias MD [address] [place] [address] documented as of this encounter Visit Diagnoses Diagnosis Essential tremor- Primary Essential and other specified forms of tremor Restless leg syndrome Restless legs syndrome (RLS) documented in this encounter Care Teams Pre Kindergarten Teacher Relationship Specialty Start Date End Date Watson Coleman MD [address] [place] [address] PCP - General Family Medicine 01/25/18 Nicholas Covarrubias MD [address] [place] [address] Consulting Physician Neurology 03/07/22 documented as of this encounter
--- OUTSIDE RECORDS SUMMARY | 2024-11-23 18:11 | XMS_ITS | Encounter Summary ---
Author Organization [facility] Address [address] [place] [address] Phone Care Team Providers Care Data Administrator Name Role Phone Watson Perry MD Primary Care Provider [phone] Adeel Covarrubias MD Unavailable Reason for Referral * Radiology Services (Routine) - Closed Specialty Diagnoses / Procedures Referred By Contjesse t Referred To Contact Radiology Diagnoses Other disorders of lung Procedures CT CHEST W/O CONTRAST Julieta Fleming PAC [address] [place] [address] Phone: tel: fax: Referral ID Status Reason Start Date Expiration Date Visits Re quested Visits Authorized [id number] Closed 07/28/2022 1 1 Encounter Details Date Type Department Care Team (Latest Contact Info) Description 07/28/[address] [facility] Central Scheduling [address] [place] [address] Julieta Fleming PAC [address] [place] [address] Other disorders of lung (Primary [...] on file Legal Sex Female 9:54 AM HOSPITAL INSURANCE REPRESENTATIVE Gender Identity Not on file Sexual Orientation Not on file documented as of this encounter Plan of Treatment Upcoming Encounters Date Type Department Care Team (Late st Contact Info) Description 12/18/2024 2:15 PM HOSPITAL INSURANCE REPRESENTATIVE Office Visit [facility] - [facility] [address] [place] [address] Adeel Covarrubias MD [address] [place] [address] documented as of this encounter Results * [...] AM T: ??08/11/2022 6:56 AM Report ID: [id number] Reading Location: ??[id number] Procedure Note Shalom Camargo MD - 08/11/2022 [...] Shalom Camargo M.D. BC: KRISHNA Report ID: [id number] Reading Location: [id number] IMPRESSION: 1. Progressive consolidation at the right [...] lung documented in this encounter Care Teams Data Administrator Relationship Specialty Start Date End Date Watson Perry MD [address] [place] [address] PCP - General Family Medicine 01/25/18 Adeel Covarrubias MD [address] [place] [address] Consulting Physician Neurology 03/07/22 documented as of this encounter
--- OUTSIDE RECORDS SUMMARY | 2024-11-23 18:11 | XMS_ITS | Encounter Summary ---
Author Organization [facility] Address [address] [facility] [place] [address] Phone Care Team Providers Care Special Library Librarian Name Role Phone Watson Perry MD Primary Care Provider [phone] Reason for Visit * Reason Comments Follow-up essential tremor * Consult, Test & Initiate Treatment (Routine) - Closed Specialty Diagnoses / Procedures Referred By Contac t Referred To Contact Neurology Diagnoses Essential tremor Watson Perry MD [address] [place] [address] Phone: tel: fax: Adeel Covarrubias MD Phone: tel: fax: Referral ID Status Reason Start Date Expiration Date Visits Re quested Visits Authorized [id number] Closed 1 1 Encounter Details Date Type Department Care Team (Late st Contact Info) Description 03/05/2020 1:00 PM CDT Tele[facility]icine [facility] - [facility]rology - [place] [address] [place] [phone] Adeel Covarrubias MD [address] [place] [address] Essential tremor (Primary Dx); Restless leg syndrome [...] on file Legal Sex Female 9:54 AM TRANSCRIBING MACHINE OPERATOR Gender Identity Not on file [...] 100-25 MCG/INH AEROSOL POWDER, BREATH ACTIVATED ??? [place]-3 Fatty Acids (FISH OIL PO) ??? pramipexole [...] st Contact Info) Description 12/18/2024 2:15 PM TRANSCRIBING MACHINE OPERATOR [facility] [address] [place] [address] Adeel Covarrubias MD [address] [place] [address] documented as of this encounter Visit Diagnoses Diagnosis Essential tremor- Primary Essential and other specified forms of tremor Restless leg syndrome Restless legs syndrome (RLS) documented in this encounter Care Teams Special Library Librarian Relationship Specialty Start Date End Date Watson Perry MD [address] [place] [address] PCP - General Family Medicine 01/25/18 documented as of this encounter
--- OUTSIDE RECORDS SUMMARY | 2024-11-23 18:11 | XMS_ITS | Encounter Summary ---
Author Organization [facility] Address [address] [facility] [place] [address] Phone Care Team Providers Care Rag Willow Operator Name Role Phone Watson Perry MD Primary Care Provider [phone] Reason for Visit * Reason Comments Tremors * Consult, Test & Initiate Treatment (Routine) - Closed Specialty Diagnoses / Procedures Referred By Contac t Referred To Contact Neurology Diagnoses Polyneuropathy, unspecified Watson Perry MD [address] [place] [address] Phone: tel: fax: Adeel Covarrubias MD Phone: tel: fax: Referral ID Status Reason Start Date Expiration Date Visits Re quested Visits Authorized [id number] Closed 1 12 Encounter Details Date Type Department Care Team (Late st Contact Info) Description 11/30/2020 10:45 AM BASTING MACHINE OPERATOR Telemedicine [facility] - [place] [address] [place] [phone] Adeel Covarrubias MD [address] [place] [address] Essential tremor (Primary Dx); Polyneuropathy; Restless leg [...] on file Legal Sex Female 9:54 AM BASTING MACHINE OPERATOR Gender Identity Not on file Sexual Orientation Not on file COVID-19 Exposure Response Date Recorded In the last month, have you been in contact with someone who was confirmed or suspected to have Coronavirus / COVID-19? No / Unsure 11/30/2020 9:21 AM BASTING MACHINE OPERATOR documented as of this encounter [...] ACTIVATED ??? Multiple Vitamin (MULTIVITAMIN PO) ??? [place]-3 Fatty Acids (FISH OIL PO) ??? pramipexole [...] and will be mailed to the patient. ING MACHINE OPERATOR documented in this encounter Plan of Treatment Upcoming Encounters Date Type Department Care Team (Late st Contact Info) Description 12/18/2024 2:15 PM BASTING MACHINE OPERATOR Office Visit [facility] [address] [place] [address] Adeel Covarrubias MD [address] [place] [address] documented as of this encounter Visit Diagnoses Diagnosis Essential tremor- Primary Essential and other specified forms of tremor Polyneuropathy Unspecified hereditary and idiopathic peripheral neuropathy Restless leg syndrome Restless legs syndrome (RLS) documented in this encounter Care Teams Rag Willow Operator Relationship Specialty Start Date End Date Watson Perry MD [address] [place] [address] PCP - General Family Medicine 01/25/18 documented as of this encounter
--- OUTSIDE RECORDS SUMMARY | 2024-11-23 18:11 | XMS_ITS | Encounter Summary ---
Author Organization [facility] Address [address] [place] [address] Phone Care Team Providers Care Log Cooker Name Role Phone Watson Perry MD Primary Care Provider [phone] Adeel Covarrubias MD Unavailable [phone] Reason for Visit * Reason Comments Medication Refill Encounter Details Date Type Department Care Team (Late st Contact Info) Description 04/20/2022 [facility] [place] [address] Adeel Covarrubias MD [address]2 [place] [address] Medication Refill Social History Tobacco [...] on file Legal Sex Female 9:54 AM STATION AGENT Gender Identity Not on file Sexual Orientation Not on file documented as of this encounter Plan of Treatment Upcoming Encounters Date Type Department Care Team (Late st Contact Info) Description 12/18/2024 2:15 PM STATION AGENT [facility] [place] [address] Adeel Covarrubias MD [address] [place] [address] documented as of this encounter Visit Diagnoses [...] documented as of this encounter Care Teams Log Cooker Relationship Specialty Start Date End Date Watson Perry MD [address] [place] [address] PCP - General Family Medicine 01/25/18 Adeel Covarrubias MD [address] [place] [address] Consulting Physician Neurology 03/07/22 documented as of this encounter
--- OUTSIDE RECORDS SUMMARY | 2024-11-23 18:11 | XMS_ITS | Encounter Summary ---
Author Organization [facility] Address [address] [place] [address] Phone Care Team Providers Care French Polisher Name Role Phone Watson Perry MD Primary Care Provider [phone] Adeel Covarrubias MD Unavailable [phone] Reason for Visit * Reason Onset Date Comments Transition of Care 06/05/2022 Post Discharg e Encounter Details Date Type Department Care Team (Late st Contact Info) Description 06/05/2022 Post Discharge Follow-up [facility] [employer] [address] [place] [address] Beverly Araujo RN Social History [...] on file Legal Sex Female 9:54 AM CONSUMER RECRUITER Gender Identity Not on file Sexual Orientation [...] Discharge Follow up call Patient admitted to [facility] for acute respiratory failure with [...] Oxygen: Delivered, 3L Medications: Did the patient pear picker their medications from the pharmacy? yes Is the patient compliant with the medication directions? States yes Did the patient need additional medication review today? no Does the patient have any unanswered questions about any medications? no Transportation: no concerns at this time Follow Up Appointments: PCP: patient to schedule own coater operator: none If the patient has HF, did the pt see their provider within 5 days of discharge? n/a Patient needs further transition of care calls: Yes, in 1 week. Please call Whipped Topping Finisher Beverly at [phone] with any questions. documented in this encounter Plan of Treatment Upcoming Encounters Date Type Department Care Team (Late st Contact Info) Description 12/18/2024 2:15 PM CONSUMER RECRUITER [facility] [address] [place] [address] Adeel Covarrubias MD [address] [facility] [place] [address] documented as of this encounter Visit Diagnoses Not on filedocumented in this encounter Additional Health Concerns Infection Onset Date Last Indicated Resolved Time COVID - 19 Confirmed 05/28/2022 05/28/2022 022 12:16 AM CDT documented as of this encounter Care Teams French Polisher Relationship Specialty Start Date End Date Watson Perry MD [address] [place] [address] PCP - General Family Medicine 01/25/18 Adeel Covarrubias MD #2 [place] [address] Consulting Physician Neurology 03/07/22 documented as of this encounter
--- OUTSIDE RECORDS SUMMARY | 2024-11-23 18:11 | XMS_ITS | Encounter Summary ---
Author Organization [facility] Address [address] [place] [address] Phone Care Team Providers Care Blind Hanger Name Role Phone Watson Perry MD Primary Care Provider [phone] Reason for Visit * Reason Comments Follow-up essential tremor * Consult, Test & Initiate Treatment (Routine) - Closed Specialty Diagnoses / Procedures Referred By Contjesse t Referred To Contact Neurology Diagnoses Polyneuropathy, unspecified Watson Perry MD [address] [place] [address] Phone: tel: fax: Adeel Covarrubias MD Phone: tel: fax: Referral ID Status Reason Start Date Expiration Date Visits Re quested Visits Authorized [id number] Closed 12 Encounter Details Date Type Department Care Team (Late st Contact Info) Description 06/04/2020 9:00 AM CDT [facility] [place] [address] [place] [address] Adeel Covarrubias MD [address]2 [place] [address] Essential tremor (Primary Dx); Restless leg syndrome; [...] on file Legal Sex Female 9:54 AM INSPECTOR FINAL ASSEMBLY CONVEYOR LINE Gender Identity Not on file Sexual Orientation [...] 100-25 MCG/INH AEROSOL POWDER, BREATH ACTIVATED ??? [place]berry-3 Fatty Acids (FISH OIL PO) ??? pramipexole [...] st Contact Info) Description 12/18/2024 2:15 PM INSPECTOR FINAL ASSEMBLY CONVEYOR LINE Office Visit [facility] #2 [place] [address] Adeel Covarrubias MD [address] [place] [address] Scheduled Orders Name Type Priority Associated Diagnoses [...] MULTIPLEX W/REFLEX CORRINE Routine 09/22/2020 8:49 AM INSPECTOR FINAL ASSEMBLY CONVEYOR LINE Polyneuropathy documented in this encounter Results * NINA SCREEN MULTIPLEX W/REFLEX CORRINE (09/22/2020 8:49 AM INSPECTOR FINAL ASSEMBLY CONVEYOR LINE) NINA SCR MULTIPLEX Negative Negative, See comment 09/23/2020 10:29 AM INSPECTOR FINAL ASSEMBLY CONVEYOR LINE [facility] Blood Venipuncture / Unknown 09/22/2020 8:49 AM INSPECTOR FINAL ASSEMBLY CONVEYOR LINE 09/22/2020 8:49 AM INSPECTOR FINAL ASSEMBLY CONVEYOR LINE Narrative [facility] - 09/23/2020 10:29 AM INSPECTOR FINAL ASSEMBLY CONVEYOR LINE Antibody testing was performed by multiplex flow immunoassay on the Pager platform. Adeel Covarrubias MD IMMUNOLOGY ORDERABLES Final Result Performing Organization Address City/[facility]/ZIP Co de Phone Number [facility] [address] [place] [address], * (ABNORMAL) FOLIC ACID (FOLATE) (09/22/2020 8:49 AM INSPECTOR FINAL ASSEMBLY CONVEYOR LINE) FOLATE >=20.0(H) 3.1 - 17.5 ng/mL 09/22/2020 4:13 PM INSPECTOR FINAL ASSEMBLY CONVEYOR LINE [facility] Blood Venipuncture / Unknown 09/22/2020 8:49 AM INSPECTOR FINAL ASSEMBLY CONVEYOR LINE 09/22/2020 8:49 AM INSPECTOR FINAL ASSEMBLY CONVEYOR LINE Adeel Covarrubias MD CHEMISTRY ORDERABLES Final R esult [facility] [address] [place] [address] * COMPLETE BLOOD COUNT (CBC) WITH DIFF [...] unspecified documented in this encounter Care Teams Blind Hanger Relationship Specialty Start Date End Date Watson Perry MD [address] [place] [address] PCP - General Family Medicine 01/25/18 documented as of this encounter
--- OUTSIDE RECORDS SUMMARY | 2024-11-23 18:11 | XMS_ITS | Encounter Summary ---
Author Organization [facility] Address [address] [place] [address] Phone Care Team Providers Care Carton Forming Machine Tender Name Role Phone Watson Perry MD Primary Care Provider [phone] Adeel Covarrubias MD Unavailable [phone] Encounter Details Date Type Department Care Team (Late Contact Info) Description 06/07/2022 Home Care Visit [facility] [address] [place], [place] [address] Elinor Forman, PT [facility] NON-ADMIT Social History Tobacco Use Types [...] on file Legal Sex Female 9:54 AM 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 HELPER Gender Identity Not on file Sexual [...] (Late Contact Info) Description 12/18/2024 2:15 PM 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 HELPER Office Visit [facility] #2 [place] [address] Adeel Covarrubias MD [address] [place] [address] documented as of this encounter Visit Diagnoses Not on filedocumented in this encounter Additional Health Concerns Infection Onset Date Last Indicated Resolved Time COVID - 19 Confirmed 05/28/2022 05/28/2022 022 12:16 AM CDT documented as of this encounter Care Teams Carton Forming Machine Tender Relationship Specialty Start Date End Date Watson Perry MD [address] [place] [address] PCP - General Family Medicine 01/25/18 Adeel Covarrubias MD [address] [place] [address] Consulting Physician Neurology 03/07/22 documented as of this encounter
--- OUTSIDE RECORDS SUMMARY | 2024-11-23 18:11 | XMS_ITS | Encounter Summary ---
Author Organization [facility] [employer] Care Team Providers Care Service Planner Name Role Phone Watson Perry MD Primary Care Provider [phone] Adeel Covarrubias MD Unavailable [phone] Encounter Details Date Type Department Care Team [...] on file Legal Sex Female 9:54 AM DENIER CONTROL OPERATOR Gender Identity Not on file Sexual [...] st Contact Info) Description 12/18/2024 2:15 PM DENIER CONTROL OPERATOR Office Visit [facility] #2 [place] [address] Adeel Covarrubias MD [address] [place] [address] documented as of this encounter Visit Diagnoses Not on filedocumented in this encounter Care Teams Service Planner Relationship Specialty Start Date End Date Watson Perry MD [address] [place] [address] PCP - General Family Medicine 01/25/18 Adeel Covarrubias MD [address] [place] [address] Consulting Physician Neurology 03/07/22 documented as of this encounter
--- OUTSIDE RECORDS SUMMARY | 2024-11-23 18:11 | XMS_ITS | Encounter Summary ---
Author Organization [facility] Address [address] [place] [address] Phone Care Team Providers Care Utility Worker Woolen Mill Name Role Phone Watson Perry MD Primary Care Provider [phone] Adeel Covarrubias MD Unavailable [phone] Reason for Visit * Reason Comments Chest Congestion Encounter Details Date Type Department Care Team (Late st Contact Info) Description 05/28/2022 9:25 AM CDT [facility] [place] [address] [place] [address] Hayde Workman, NOEMY, SHINGLE PACKER [address] [place] [address] Chest congestion (Primary Dx) Discharge [...] on file Legal Sex Female 9:54 AM PHYSICAL EDUCATION TEACHER Gender Identity Not on file Sexual [...] st Contact Info) Description 12/18/2024 2:15 PM PHYSICAL EDUCATION TEACHER Office Visit [facility] - [facility]rology [facility] [address] [place] [address] Adeel Covarrubias MD #[address] [place] [address] documented as of this encounter [...] Range for this test is Not Detected) [facility] TH[facility] FAST DX 05/29/2022 1:19 PM CDT [facility] Comment:This test was perfor med by a RT-PCR method. Other NASAL STRUCTURE / Unknown Non-Phlebotomy Collection / Unknown 05/28/2022 10:25 AM CDT 05/28/2022 10:[address] [facility] - 05/29/2022 1:19 PM CDT Authorized Fact Sheets about this test for providers and patients are available at: https://www.fda.gov/medical-devices/tguscehpe-xygetyshjq-iseazmb-devices/emergen -us e-authorizations us Hayde Workman TREASURY ANALYST, SHINGLE PACKER MICROBIOLOGY - GE NERAL ORDERABLES Final Result [facility] [address] [facility] [place] [address], [place] * XR CHEST 2 VIEWS (05/28/2022 [...] AM T: ??05/28/2022 10:18 AM Report ID: [id number] Reading Location: ??[id number] Procedure Note Marco Wallace MD - 05/28/2022 [...] Marco Wallace M.D. MZ: KARL Report ID: [id number] Reading Location: [id number] IMPRESSION: No acute cardiopulmonary findings. Hayde Workman APRN, CNP IMG DIAGNOSTIC OR DERABLES Final Result * POCT SARS ANTIGEN LISSET (05/28/2022 9:40 AM CDT) POC SARS ANTIGEN LISSET Negative Negative POC SARS ANTIGEN LISSET CONTROL Shore Worker Pass Swab NASAL STRUCTURE / Unknown 05/28/2022 9:40 AM CDT Hayde Workman APRN, CNP POINT OF CARE RAGHU TING (MANUAL) Final Result documented in this encounter Visit Diagnoses Diagnosis Chest congestion- Primary Other symptoms involving respiratory system and chest documented in this encounter Care Teams Utility Worker Woolen Mill Relationship Specialty Start Date End Date Watson Perry MD [address] [place] [address] PCP - General Family Medicine 01/25/18 Adeel Covarrubias MD [address] [place] [address] Consulting Physician Neurology 03/07/22 documented as of this encounter
--- OUTSIDE RECORDS SUMMARY | 2024-11-23 18:11 | XMS_ITS | Encounter Summary ---
Author Organization [facility] [employer] Care Team Providers Care Captain/Check Airman Name Role Phone Watson Perry MD Primary Care Provider [phone] Encounter Details Date Type Department Care Team [...] on file Legal Sex Female 9:54 AM AUTO REBUILDER Gender Identity Not on file Sexual Orientation [...] st Contact Info) Description 12/18/2024 2:15 PM AUTO REBUILDER [facility] #[address] [place] [address] Adeel Covarrubias MD [address] [place] [address] documented as of this encounter Visit Diagnoses Not on filedocumented in this encounter Care Teams Captain/Check Airman Relationship Specialty Start Date End Date Watson Perry MD [address] [place] [address] PCP - General Family Medicine 01/25/18 documented as of this encounter
--- OUTSIDE RECORDS SUMMARY | 2024-11-23 18:11 | XMS_ITS | Encounter Summary ---
Author Organization [facility] Address [address] [place] [address] Phone Care Team Providers Care Senior Program Planner Name Role Phone Watson Perry MD Primary Care Provider [phone] Adeel Covarrubias MD Unavailable [phone] Reason for Referral * Radiology Services (Routine) - Closed Specialty Diagnoses / Procedures Referred By Contac t Referred To Contact Radiology Diagnoses COVID-19 Procedures ADULT TRANS THORACIC ECHO 2D COMPLT W Jessi Martinez MD [address] [place] [address] Phone: tel: fax: Referral ID Status Reason Start Date Expiration Date Visits Re quested Visits Authorized [id number] Closed 06/04/2022 1 1 Reason for Visit * Radiology Services (Routine) - Closed Specialty Diagnoses / Procedures Referred By Contac t Referred To Contact Radiology Diagnoses COVID-19 Procedures ADULT TRANS THORACIC ECHO 2D COMPLT W Jessi Martinez MD [address] [place] [address] Phone: tel: fax: Referral ID Status Reason Start Date Expiration Date Visits Re quested Visits Authorized [id number] Closed 06/04/2022 1 1 Encounter Details Date Type Department Care Team (Latest Contact Info) Description 06/14/2022 7:51 AM CDT - 06/14/2022 11:59 PM CDT Hospital Encounter [facility] Cardiology Services [address] [place] [address] Jessi Fontanez MD [address] [place] [address] Discharge Disposition: Discharged to home or Selfcare [...] on file Legal Sex Female 9:54 AM SULFUR CHLORIDE OPERATOR Gender Identity Not on file Sexual [...] PO) Take 1 % by mouth daily. [place]-3 Fatty Acids (FISH OIL PO) Take 2 [...] st Contact Info) Description 12/18/2024 2:15 PM SULFUR CHLORIDE OPERATOR [facility] [place] [address] Adeel Covarrubias MD [address] [place] [address] documented as of this encounter Procedures Procedure [...] name ?JAYA Mathews ? 1950 Patient ID ([facility]) ?[id number] ? Study Date06/14/2022 Technical quality: Adequate Type [...] (BSA) ? 22.61 kg/m^2 ? (1.72 m^2) Knit Tubing Dyer ?New Tati Interpreting ? Jitendra Ignacio ?Referring Physician ?Darren ?Physician Procedure Note Darren Kidd MD - 06/14/2022 Transthoracic Echocardiography Report (TTE) Patient name JAYA MCKEON Bisi Gonzalez 1950 Patient ID ([facility]PI) [id number] Study Date06/14/2022 Technical quality: Adequate Type of [...] lbs. BMI (BSA) 22.61 kg/m^2 (1.72 m^2) Knit Tubing Dyer Shaq Duffy Interpreting Jitendra Ignacio Referring Physician Darren Physician us Jessi Iyer MD IMG ECHO ORDERABLES Edited Re sult - Final documented in this encounter Visit Diagnoses Diagnosis COVID-19 documented in this encounter Additional Health Concerns Infection Onset Date Last Indicated Resolved Time COVID - 19 Confirmed 05/28/2022 05/28/2022 022 12:16 AM CDT documented as of this encounter Care Teams Senior Program Planner Relationship Specialty Start Date End Date Watson Perry MD [address] [place] [address] PCP - General Family Medicine 01/25/18 Adeel Covarrubias MD [address] [place] [address] Consulting Physician Neurology 03/07/22 documented as of this encounter
--- OUTSIDE RECORDS SUMMARY | 2024-11-23 18:11 | XMS_ITS | Encounter Summary ---
Author Organization [facility] [employer] Care Team Providers Care Construction Cost Estimator Name Role Phone Watson Perry MD Primary Care Provider [phone] Encounter Details Date Type Department Care Team [...] on file Legal Sex Female 9:54 AM INTERNET PROJECT MANAGER Gender Identity Not on file Sexual Orientation Not on file COVID-19 Exposure Response Date Recorded In the last month, have you been in contact with someone who was confirmed or suspected to have Coronavirus / COVID-19? No / Unsure 11/30/2020 9:21 AM INTERNET PROJECT MANAGER documented as of this encounter Plan of Treatment Upcoming Encounters Date Type Department Care Team (Late st Contact Info) Description 12/18/2024 2:15 PM INTERNET PROJECT MANAGER [facility] [address] [place] [address] Adeel Covarrubias MD [address] [place] [address] documented as of this encounter Visit Diagnoses Not on filedocumented in this encounter Care Teams Construction Cost Estimator Relationship Specialty Start Date End Date Watson Perry MD [address] [place] [address] PCP - General Family Medicine 01/25/18 documented as of this encounter
--- OUTSIDE RECORDS SUMMARY | 2024-11-23 18:13 | XMS_ITS | Referral Summary ---
Author Organization [facility] Address [address] [place] [address] Care Team Providers Care Surgical Nurse Name Role Phone Watson Perry MD Primary Care Provider [phone] Encounters Date Type Department Care Team Description 10/22/2024 10:29 AM PENSION ADMINISTRATOR - 10/22/2024 11:59 PM PENSION ADMINISTRATOR Hospital Encounter [facility] [address] [place] [address] Discharge Disposition: Discharge to home or self care 10/22/2024 10:26 AM PENSION ADMINISTRATOR - 10/22/2024 11:59 PM PENSION ADMINISTRATOR Hospital Encounter [facility] ([facility] [address] [place] [address] Discharge Disposition: Discharge to home or self care 10/22/2024 8:38 AM PENSION ADMINISTRATOR - 10/22/2024 11:59 PM PENSION ADMINISTRATOR Hospital Encounter [address] [place] [address] Right knee pain, unspecified chronicity Discharge Disposition: Discharge to home or self care 10/22/2024 8:45 AM PENSION ADMINISTRATOR Office Visit [facility] Orthopaedic Surgery [address] [place] [address] [address] [place] [address] Chica Naik PA Right knee [...] 2 (two) times a day Active omega 2-zen-bfh-fish oil 1,000 mg (120 mg-180 mg) capsule [...] drink = 0.6 oz pur e alcohol) [facility] [employer]ities Answer Date Recorded In the past 12 months has [employer], gas, oil, or water [employer] threatened to shut off services in your [...] How often do you attend chur or advent services? Never 02/20/2024 Do you belong to any clubs o r organizations such as samaritan groups, unions, fraternal or athletic groups, or [...] in a group home (including now)? No 02/20/2024 Personal Safety [...] on file Legal Sex Female 1:09 PM PENSION ADMINISTRATOR Gender Identity Not on file Sexual [...] MR OUTSIDE REFERENCE Routine 10/22/2024 10:29 AM PENSION ADMINISTRATOR MSK MR OUTSIDE REFERENCE Routine 10/22/2024 10:26 AM PENSION ADMINISTRATOR XR KNEE RIGHT 4 OR MORE VIEWS Schedule Routine, Read Routine (OP Routine) 10/22/2024 8:56 AM PENSION ADMINISTRATOR Right knee pain, unspecified chronicity from Last 3 Months Results * MSK MR Outside Reference (10/22/2024 10:29 AM PENSION ADMINISTRATOR) Impressions [facility] - 10/22/2024 10:30 AM PENSION ADMINISTRATOR These images are for Reference purposes only and have not been reviewed by [facility] Radiology. ??There will be no report generated by a [facility] Radiologist. Narrative [facility] - 10/22/2024 10:30 AM PENSION ADMINISTRATOR EXAMINATION: ??Images For Reference Purposes Only Chica FRENCH IM MRI PROCEDURES Fin al Result [facility] * MSK MR Outside Reference (10/22/2024 10:26 AM PENSION ADMINISTRATOR) Impressions RAD_PACS[facility] - 10/22/2024 10:26 AM PENSION ADMINISTRATOR These images are for Reference purposes only and have not been reviewed by [facility]. ??There will be no report generated by a [facility] Radiologist. Narrative RAD_PACS[facility] - 10/22/2024 10:26 AM PENSION ADMINISTRATOR EXAMINATION: ??Images For Reference Purposes Only Chica FRENCH IMG MRI PROCEDURES Fin al Result [facility] * XR Knee Right 4 or More Views (10/22/2024 8:56 AM PENSION ADMINISTRATOR) Anatomical Region Laterality Modality Lower Extremities, Knee Right Digital Radiography 10/22/2024 9:52 AM PENSION ADMINISTRATOR Impressions 10/22/2024 9:52 AM PENSION ADMINISTRATOR FINDINGS/IMPRESSION: Moderate to severe right lateral compartment arthrosis. ??No acute fracture. ??There is a small joint effusion. ??Soft tissues are unremarkable. Electronically signed by: Raffi Montes II, D.O. Narrative 10/22/2024 9:52 AM PENSION ADMINISTRATOR EXAMINATION: XR KNEE RIGHT 4 OR MORE [...] l Result from Last 3 Months Insurance [facility] AET MEDICARE AET MEDICARE AET MEDICARE Advance Directives For more information, please contact: [phone] * Full Code (Latest Code Status on File) Date Activated Date Inactivated Comments 02/19/2024 8:07 AM 02/23/2024 6:29 PM * Full Code Date Activated Date Inactivated Comments 03/29/2023 6:03 PM 04/01/2023 4:22 PM Care Teams Surgical Nurse Relationship Specialty Start Date End Date Watson Perry MD PCP - General Family Medicine 01/24/18
--- OUTSIDE RECORDS SUMMARY | 2024-11-23 18:13 | XMS_ITS | Encounter Summary ---
Author Organization [facility] Address [address] [place] [address] Care Team Providers Care Oyster Picker Name Role Phone Watson Perry MD Primary Care Provider [phone] Encounter Details Date Type Department Care Team [...] drink = 0.6 oz pur e alcohol) [facility] Utilities Answer Date Recorded In the past 12 months has [employer], [employer], oil, or water [employer] threatened to shut off services in your [...] How often do you attend chur or hinduism services? Never 02/20/2024 Do you belong to [...] place to sleep or slept in a mcfp (including now)? No 02/20/2024 Personal Safety Answer [...] on file Legal Sex Female 1:09 PM TOOL AND DIE MAKER LEVEL FIVE Gender Identity Not on file Sexual Orientation [...] Take 1 capsule by mouth daily omega 0-pzw-icm-fish oil 1,000 mg (120 mg-180 mg) capsule [...] on filedocumented in this encounter Care Teams Oyster Picker Relationship Specialty Start Date End Date Watson Perry MD PCP - General Family Medicine 01/24/18 documented as of this encounter
--- OUTSIDE RECORDS SUMMARY | 2024-11-23 18:13 | XMS_ITS | Encounter Summary ---
Author Organization [facility] Address [address] [place] [address] Phone Care Team Providers Care Jumpbasting Lining Baster Name Role Phone Watson Perry MD Primary Care Provider [phone] Reason for Visit * Reason Comments Pain * Consultation (Routine) - Closed Specialty Diagnoses / Procedures Referred By Contac t Referred To Contact Orthopedic Surgery Diagnoses Primary osteoarthritis of right knee Effusion, right knee Ford Cooper MD [address] [place] [address] Phone: tel:[phone] fax: [facility] (All Locations) Referral ID Status Reason Start Date Expiration Date V isits Requested Visits Authorized [id number] Closed Specialty Services Required 09/19/2024 10/19/2025 1 1 Encounter Details Date Type Department Care Team (Latest Contact Info) Description 10/22/2024 8:45 AM ELECTRICAL DESIGNER DRAFTER Office Visit [facility] Orthopaedic Surgery [address] [place] [address] [address] [place] [address] Chica Naik PA [address] [place] [address] Right knee pain, unspecified chronicity (Primary Dx); Primary osteoarthritis of right knee Social History Tobacco Use Types Packs/Day Years Used Date Smoking Tobacco: Former Cigarettes 1 50 0 05/18/1972 - 05/18/2022 Smokeless Tobacco: Never Alcohol Use Standard Drinks/Week Comments No 0 (1 standard drink = 0.6 oz pur e alcohol) [facility] Utilities Answer Date Recorded In the past [...] often do you attend chur ch or bahai services? Never 02/20/2024 Do you belong to [...] slept in a snf (including now)? No 02/20/2024 Personal Safety Answer [...] on file Legal Sex Female 1:09 PM ELECTRICAL DESIGNER DRAFTER Gender Identity Not on file Sexual Orientation Not on file documented as of this encounter Progress Notes * Chica Naik PA - 10/22/2024 8:45 AM CST NEW PATIENT VISIT CHIEF COMPLAINT: Chief Complaint Patient presents with Right Knee - Pain HISTORY OF PRESENT ILLNESS: Janeth Parker is a 74 y.o. female with COPD on 3L O2 by [place] who presents for evaluation of right knee [...] Take 1 capsule by mouth daily omega 6-aax-mjf-fish oil 1,000 mg (120 mg-180 mg) capsule [...] discussed. Patient reports she was referred to [facility] because of her COPD and Parkinson's. [...] surgery. Chica Naik PA-C Joint Reconstructive Service [facility] Orthopedic Surgery TRICAL DESIGNER DRAFTER documented in this encounter Plan of Treatment Not on file documented as of this encounter Results * XR Knee Right 4 or More Views (10/22/2024 8:56 AM ELECTRICAL DESIGNER DRAFTER) Anatomical Region Laterality Modality Lower Extremities, Knee Right Digital Radiography 10/22/2024 9:52 AM ELECTRICAL DESIGNER DRAFTER Impressions 10/22/2024 9:52 AM ELECTRICAL DESIGNER DRAFTER FINDINGS/IMPRESSION: Moderate to severe right lateral compartment arthrosis. ??No acute fracture. ??There is a small joint effusion. ??Soft tissues are unremarkable. Electronically signed by: Raffi Montes II, D.O. Narrative 10/22/2024 9:52 AM ELECTRICAL DESIGNER DRAFTER EXAMINATION: XR KNEE RIGHT 4 OR MORE [...] 10/22/2024 documented in this encounter Care Teams Jumpbasting Lining Baster Relationship Specialty Start Date End Date Watson Prery MD PCP - General Family Medicine 01/24/18 documented as of this encounter
--- OUTSIDE RECORDS SUMMARY | 2024-11-23 18:13 | XMS_ITS | Encounter Summary ---
Author Organization [facility] Healthcare Address [address] [place] [address] Care Team Providers Care Excel Specialist Name Role Phone Watson Perry MD Primary Care Provider [phone] Reason for Visit * MRI/CAT/PET Scan (Routine) - Pending Review Specialty Diagnoses / Procedures Referred By Contac t Referred To Contact Diagnoses Right knee pain Procedures MSK MR Outside Reference Chica Naik PA [address] [facility] [address] [place] [address] Phone: tel: fax: [facility] ([facility]) [address] [place] [address] Phone: tel: Referral ID Status Reason Start Date Expiration Date V isits Requested Visits Authorized [id number] Pending Review 10/22/2024 11/21/2025 1 1 Encounter Details Date Type Department Care Team (Latest Contact Info) Description 10/22/2024 10:29 AM OFFSET PRINTING PRESSMEN - 10/22/2024 11:59 PM OFFSET PRINTING PRESSMEN Hospital Encounter [facility] [address] [place] [phone] Discharge Disposition: Discharge to home or self [...] often do you attend chur ch or baptist services? Never 02/20/2024 Do you belong to any clubs o r organizations such as zoroastrian groups, unions, fraternal or athletic groups, or [...] file Legal Sex Female 1:09 PM OFFSET PRINTING PRESSMEN Gender Identity Not on file Sexual Orientation [...] Take 1 capsule by mouth daily omega 5-bkj-lqe-fish oil 1,000 mg (120 mg-180 mg) capsule [...] MR OUTSIDE REFERENCE Routine 10/22/2024 10:29 AM OFFSET PRINTING PRESSMEN documented in this encounter Results * VENKATESH MR Outside Reference (10/22/2024 10:29 AM OFFSET PRINTING PRESSMEN) Impressions [facility] - 10/22/2024 10:30 AM OFFSET PRINTING PRESSMEN These images are for Reference purposes only and have not been reviewed by [facility] Radiology. ??There will be no report generated by a [facility] Radiologist. Narrative [facility] - 10/22/2024 10:30 AM OFFSET PRINTING PRESSMEN EXAMINATION: ??Images For Reference Purposes Only us Chica FRENCH IMG MRI PROCEDURES Robert al Result [facility] documented in this encounter Visit Diagnoses Not on filedocumented in this encounter Care Teams Excel Specialist Relationship Specialty Start Date End Date Watson Perry MD PCP - General Family Medicine 01/24/18 documented as of this encounter
--- OUTSIDE RECORDS SUMMARY | 2024-11-23 18:13 | XMS_ITS | Encounter Summary ---
Author Organization [facility] Healthcare Address [address] [place] [address] Care Team Providers Care Ecommerce Project Manager Name Role Phone Watson Perry MD Primary Care Provider [phone] Reason for Visit * MRI/CAT/PET Scan (Routine) - Pending Review Specialty Diagnoses / Procedures Referred By Contac t Referred To Contact Diagnoses Right knee pain Procedures MSK MR Outside Reference Chica Naik PA [address] [address] Phone: tel: fax: [facility] ([facility]) [address] [place] [address] Phone: tel: Referral ID Status Reason Start Date Expiration Date V isits Requested Visits Authorized [id number] Pending Review 10/22/2024 11/21/2025 1 1 Encounter Details Date Type Department Care Team (Latest Contact Info) Description 10/22/2024 10:26 AM APPARATUS LINEMAN - 10/22/2024 11:59 PM APPARATUS LINEMAN Hospital Encounter [facility]) [address] [place] [phone] Discharge Disposition: Discharge to home or self care Social History Tobacco Use Types Packs/Day Years Used Date Smoking Tobacco: Former Cigarettes 1 50 0 05/18/1972 - 05/18/2022 Smokeless Tobacco: Never Alcohol Use Standard Drinks/Week Comments No 0 (1 standard drink = 0.6 oz pur e alcohol) [facility] Utilities Answer Date Recorded In [...] often do you attend chur ch or mormonism services? Never 02/20/2024 Do you belong to [...] on file Legal Sex Female 1:09 PM APPARATUS LINEMAN Gender Identity Not on file Sexual Orientation [...] Take 1 capsule by mouth daily omega 6-pmy-psm-fish oil 1,000 mg (120 mg-180 mg) capsule [...] MR OUTSIDE REFERENCE Routine 10/22/2024 10:26 AM APPARATUS LINEMAN documented in this encounter Results * VENKATESH MR Outside Reference (10/22/2024 10:26 AM APPARATUS LINEMAN) Impressions [facility] - 10/22/2024 10:26 AM APPARATUS LINEMAN These images are for Reference purposes only and have not been reviewed by [facility] Radiology. ??There will be no report generated by a [facility] Radiologist. Narrative RAD_PACS_[facility] - 10/22/2024 10:26 AM APPARATUS LINEMAN EXAMINATION: ??Images For Reference Purposes Only us Chica FRENCH IMG MRI PROCEDURES Robert al Result [facility] documented in this encounter Visit Diagnoses Not on filedocumented in this encounter Care Teams Ecommerce Project Manager Relationship Specialty Start Date End Date Watson Perry MD PCP - General Family Medicine 01/24/18 documented as of this encounter
--- OUTSIDE RECORDS SUMMARY | 2024-11-23 18:13 | XMS_ITS | Clinical Summary ---
Author Organization [facility] Address [address] [place] [address] Care Team Providers Care Clinical Audiologist Name Role Phone Watson Perry MD Primary Care Provider [phone] Allergies Active Allergy Reactions Criticality Noted Date [...] 2 (two) times a day Active omega 4-iuf-xcx-fish oil 1,000 mg (120 mg-180 mg) capsule [...] Department Care Team Description 10/22/2024 10:29 AM [employer]OMEDICAL ENGINEERING INTERNSHIP - 10/22/2024 11:59 PM BIOMEDICAL ENGINEERING INTERNSHIP Hospital Encounter [facility]) [address] [place] [address] Discharge Disposition: Discharge to home or self care 10/22/2024 10:26 AM BIOMEDICAL ENGINEERING INTERNSHIP - 10/22/2024 11:59 PM BIOMEDICAL ENGINEERING INTERNSHIP Hospital Encounter [facility] [address] [place] [address] Discharge Disposition: Discharge to home or self care 10/22/2024 8:45 AM BIOMEDICAL ENGINEERING INTERNSHIP Office Visit [facility] Orthopaedic Surgery [address] [place] [address] [address] [place] [address] Chica Naik PA Right knee pain, unspecified chronicity (Primary Dx); Primary osteoarthritis of right knee 10/22/2024 8:38 AM BIOMEDICAL ENGINEERING INTERNSHIP - 10/22/2024 11:59 PM BIOMEDICAL ENGINEERING INTERNSHIP Hospital Encounter [facility] [address] [facility] [address] [place] [address] Right knee pain, unspecified chronicity Discharge Disposition: [...] 0.6 oz pur e alcohol) [facility] Utilities Answer Date Recorded In the past 12 months has [employer], oil, or water Advisor [employer] threatened to shut off services in your [...] How often do you attend chur or jew services? Never 02/20/2024 Do you belong to any clubs o r organizations such as muslim groups, unions, fraternal or athletic groups, or [...] place to sleep or slept in a custodial (including now)? No 02/20/2024 Personal Safety Answer [...] on file Legal Sex Female 1:09 PM BIOMEDICAL ENGINEERING INTERNSHIP Gender Identity Not on file Sexual Orientation [...] HERNANDEZ OUTSIDE REFERENCE Routine 10/22/2024 10:29 AM BIOMEDICAL ENGINEERING INTERNSHIP VENKATESH HERNANDEZ OUTSIDE REFERENCE Routine 10/22/2024 10:26 AM BIOMEDICAL ENGINEERING INTERNSHIP XR KNEE RIGHT 4 OR MORE VIEWS Schedule Routine, Read Routine (OP Routine) 10/22/2024 8:56 AM BIOMEDICAL ENGINEERING INTERNSHIP Right knee pain, unspecified chronicity from Last 3 Months Results * MSK MR Outside Reference (10/22/2024 10:29 AM BIOMEDICAL ENGINEERING INTERNSHIP) Impressions [facility]_P[facility] - 10/22/2024 10:30 AM BIOMEDICAL ENGINEERING INTERNSHIP These images are for Reference purposes only and have not been reviewed by [facility] Radiology. ??There will be no report generated by a [facility] Radiologist. Narrative RAD_PACS_[facility] - 10/22/2024 10:30 AM BIOMEDICAL ENGINEERING INTERNSHIP EXAMINATION: ??Images For Reference Purposes Only Chica FRENCH IMG MRI PROCEDURES Fin al Result Performing Organization Address [facility] de Phone Number [facility] * MSK MR Outside Reference (10/22/2024 10:26 AM BIOMEDICAL ENGINEERING INTERNSHIP) Impressions [facility]_P[facility] - 10/22/2024 10:26 AM BIOMEDICAL ENGINEERING INTERNSHIP These images are for Reference purposes only and have not been reviewed by [facility] Radiology. ??There will be no report generated by a [facility] Radiologist. Narrative RAD_PACS[facility] - 10/22/2024 10:26 AM BIOMED[employer] ENGINEERING INTERNSHIP EXAMINATION: ??Images For Reference Purposes Only Chica FRENCH IMG MRI PROCEDURES Fin al Result Performing Organization Address [facility] Co de Phone Number [facility] * XR Knee Right 4 or More Views (10/22/2024 8:56 AM BIOMEDICAL ENGINEERING INTERNSHIP) Anatomical Region Laterality Modality Lower Extremities, Knee Right Digital Radiography 10/22/2024 9:52 AM BIOMEDICAL ENGINEERING INTERNSHIP Impressions 10/22/2024 9:52 AM BIOMEDICAL ENGINEERING INTERNSHIP FINDINGS/IMPRESSION: Moderate to severe right lateral compartment arthrosis. ??No acute fracture. ??There is a small joint effusion. ??Soft tissues are unremarkable. Electronically signed by: Raffi Montes II, D.O. Narrative 10/22/2024 9:52 AM BIOMEDICAL ENGINEERING INTERNSHIP EXAMINATION: XR KNEE RIGHT 4 OR MORE [...] l Result from Last 3 Months Insurance [facility] [employer] MEDICARE [facility] MEDICARE [facility] MEDICARE Advance Directives For more information, please contact: [phone] * Full Code (Latest Code Status on File) Date Activated Date Inactivated Comments 02/19/2024 8:07 AM 02/23/2024 6:29 PM * Full Code Date Activated Date Inactivated Comments 03/29/2023 6:03 PM 04/01/2023 4:22 PM Care Teams Clinical Audiologist Relationship Specialty Start Date End Date Watson Perry MD [phone] (work) PCP - General Family Medicine 01/24/18
--- OUTSIDE RECORDS SUMMARY | 2024-11-23 18:13 | XMS_ITS | Encounter Summary ---
Author Organization [facility] Address [address] [place] [address] Care Team Providers Care Soaking Pit Operator Name Role Phone Lyla Perry MD Primary Care Provider [phone] Reason for Visit * Reason Comments Leg Swelling * Auth/Cert Specialty Diagnoses / Procedures Referred By Contac t Referred To Contact Diagnoses Pneumonia of left lower lobe due to infectious organism Pneumonia due to organism Procedures na Referral ID Status Reason Start Date Expiration Date Visits Re quested Visits Authorized [id number] 1 1 Encounter Details Date Type Department Care Team (Latest Contact Info) Description 02/18/2024 10:10 PM CDT - 02/23/2024 2:28 PM CDT Hospital Encounter [facility] IMU [address] [place] [address] Marleny Vasquez MD [address] [facility] [place] [address] Josef Ramirez Jr., MD [address] [facility] [place] [address] Savi Crowder MD [address] [place] [address] [place] [address] Pneumonia of left lower lobe due to infectious organism (Primary Dx); Dyspnea, unspecified type; General weakness; Impaired ambulation Discharge Disposition: Discharge to SNF Social History Tobacco Use Types Packs/Day Years Used Date Smoking Tobacco: Former Cigarettes 1 50 0 05/18/1972 - 05/18/2022 Smokeless Tobacco: Never Alcohol Use Standard Drinks/Week Comments No 0 (1 standard drink = 0.6 oz pur e alcohol) [facility] Utilities Answer Date Recorded In the past [...] often do you attend chur ch or protestant services? Never 02/20/2024 Do you belong to [...] slept in a chcf (including now)? No 02/20/2024 Personal Safety Answer [...] on file Legal Sex Female 1:09 PM CAN CAPPER Gender Identity Not on file Sexual Orientation [...] Patient Age - 74 yrs Patient - [id number] CSN - [id number] Document Creation Date: 02/23/2024 Admitting Provider, MD: Marleny Vasquez MD Discharge Provider, MD: No att. providers found Primary Care Physician at Discharge: Llya Perry MD [phone] Admission Date: 02/18/2024 Discharge Date/time: 02/23/2024 Admission Location: [facility] LOS - LOS: 4 days DETAILS OF [...] albuterol HFA 90 mcg/actuation inhaler Doctor's comments: SC/SNF Location: [facility] Commonly known as: PROVENTIL HFA,VENTOLIN HFA,PROAIR HFA Inhale 2 puffs every 6 (six) hours as needed for wheezing or shortness of breath bisacodyl EC 5 mg EC tablet Doctor's comments: SC/SNF Location: [facility] Commonly known as: DULCOLAX EC Take 2 tablets (10 mg total) by mouth daily as needed for constipation (If no results 24 hours after milk of magnesia) magnesium hydroxide 80 mg/mL (33.3 mg/mL as elemental magnesium) Doctor's comments: SC/SNF Location: [facility] Commonly known as: MILK OF MAGNESIA [...] Take 1 capsule by mouth daily omega 9-mmy-tah-fish oil 1,000 mg (120 mg-180 mg) capsule [...] to make a follow-up appointment. Generic drug: zjxrmjkxjrl-mjnqvvjbv-rgqnsgul INHALE 1 PUFF ONCE DAILY Where to [...] Family Medicine Relationship: PCP - General [address] [facility] [address] Next Steps: Call in 1 week(s) Instructions: Hospital follow up [address] [address] Next Steps: Go to Lyla Perry MD Specialty: Family Medicine [address] [facility] [address] Next Steps: Follow up Comments: Please follow-up with PCP, Dr. Lyla Perry, within 1-2 weeks of hospital discharge Questions: To provider: LYLA PERRY Please schedule an appointment with the following provider(s): Lyla Perry MD [address] [place] [address] Call in 1 week(s) Hospital follow up [facility] [address] [facility] [id number] Go to Lyla Perry MD [address] [id number] ANCILLARY INFORMATION Other Procedures & Diagnostic Tests: ECG 12 lead Result Date: 02/19/2024 Vent Rate: 79 bpm RR Interval: 759 msec DE Interval: 139 msec QRS Duration: 90 msec QT Interval: 352 msec QTC Interval: 386 msec P-R-T [place]: 36 - 9 - 7 degrees IMPRESSION: [...] full O2 tank, no wheelchair available w/ health and safety advisor for tank history of COPD on oxygen [...] Tom Mora M.D. KH: RAVIN Report ID: [id number] Reading Location: [place] [address] Recent Labs: Recent Labs Lab Units 02/23/2425602/22/2424202/21/24336 [...] 5* 5* CREATININE mg/dL 0.49* 0.46* 0.49* MGK-VJN-ECDTMXA mL/min/1.73 m2 >90 >90 >90 GLUCOSE mg/dL [...] through Care Everywhere. * Arthritis (Discharge Care) (Uzbek) * Moseley Cyst (Discharge Care) (Uzbek) documented in this encounter Medications at Time [...] Take 1 capsule by mouth daily omega 0-pcd-qam-fish oil 1,000 mg (120 mg-180 mg) capsule [...] Departure Means Destination Comment s Discharge to [facility] documented in this encounter Progress Notes * [...] this the discharge summary * Sada Velasquez, STAMPING OPERATOR - 02/22/2024 8:54 AM CDT Physical Therapy [...] this the discharge summary Recommendation/Plan PT Recommendation/Plan [facility] Facility Patient at high risk for Falls;Readmission;Injury [...] Ahsan Gonzáles M.D. MF: KULDIP Report ID: [id number] Reading Location:[id number] US Lower Extremity Right Limited Result Date: 02/20/2024 Narrative: EXAM DESCRIPTION: US LOWER EXTREMITY RIGHT LIMITED REASON FOR STUDY: Pain TECHNIQUE: A Dynamic assessment was performed of the right lower extremity by the roll table operator, with selected grayscale and color Doppler images [...] Jonn Lopez M.D. MM: MM Report ID: [id number] Reading Location: [id number] XR Knee Right 3 Views Result Date: [...] Jonn Lopez M.D. MM: MM Report ID: [id number] Reading Location: [id number] ECG 12 lead Result Date: 02/19/2024 Narrative: Vent Rate: 79 bpm RR Interval: 759 msec DE Interval: 139 msec QRS Duration: 90 msec QT Interval: 352 msec QTC Interval: 386 msec P-R-T [place]: 36 - 9 - 7 degrees IMPRESSION: [...] Tom Mora M.D. KH: RAVIN Report ID: [id number] Reading Location: [id number] Current Facility-Administered Medications Medication Dose Route Frequency [...] mg/mL (33.3 mg/mL as elemental magnesium) oral vuvsaetbqr84 mL 30 mL oral Daily PRN Peggy [...] days, pending SNF placement Peggy Hernandez MD [facility] Medicine Residency-PGY1 [facility] Date of Service: 02/22/2024 6:53 [...] and continue to monitor. MDM: low complexity Jsoef Ramirez Jr., MD * Cristi Cortes RRT [...] Ahsan Gonzáles M.D. MF: KULDIP Report ID: [id number] Reading Location:[id number] US Lower Extremity Right Limited Result Date: 02/20/2024 Narrative: EXAM DESCRIPTION: US LOWER EXTREMITY RIGHT LIMITED REASON FOR STUDY: Pain TECHNIQUE: A Dynamic assessment was performed of the right lower extremity by the roll table operator, with selected grayscale and color Doppler images [...] by Jonn Lopez M.D.MM: MM Report ID: [id number] Reading Location: [id number] XR Knee Right 3 Views Result Date: [...] Jonn Lopez M.D. MM: MM Report ID: [id number] Reading Location: [id number] ECG 12 lead Result Date: 02/19/2024 Narrative: Vent Rate: 79 bpm RR Interval: 759 msec DE Interval: 139 msec QRS Duration: 90 msec QT Interval: 352 msec QTC Interval: 386 msec P-R-T [place]: 36 - 9 - 7 degrees IMPRESSION: [...] Tom Mora M.D. KH: KH Report ID: [id number] Reading Location: [id number] Current Facility-Administered Medications Medication Dose Route Frequency [...] mg/mL (33.3 mg/mL as elemental magnesium) oral ingwltrpoz86 mL 30 mL oral Daily PRN Peggy [...] discharge in 1-2 days Peggy Hernandez MD [facility] Medicine Residency-PGY1 [facility] Date of Service: 02/21/2024 2:10 [...] Josef Ramirez Jr., MD * Sada Velasquez, STAMPING OPERATOR - 02/21/2024 9:52 AM CDT Physical Therapy [...] this the discharge summary Recommendation/Plan PT Recommendation/Plan [facility] Facility Patient at high risk for Falls;Readmission;Injury due to decreased ability to care for self;Injury due to reduced functional status;Injury due to balance deficits Recommend SNF due to Risk of injury at home;Unable to safely care for self in the home;Skilled therapy needed to address care for self in the home;Skilled therapy needed to address functional deficits * Sada Velasquez, STAMPING OPERATOR - 02/20/2024 2:53 PM CDT Physical Therapy [...] this the discharge summary Recommendation/Plan PT Recommendation/Plan [facility] Facility Patient at high risk for Falls;Readmission;Injury [...] Using Wheeled walker Prior Function Level of [place] Independent with ADLs;Independent functional transfers;Independent with ambulation;Independent [...] this the discharge summary Recommendation/Plan OT Recommendation [facility] Facility Patient at high risk for Falls;Injury [...] Rate: 79 bpm RR Interval: 759 msec DE Interval: 139 msec QRS Duration: 90 msec QT Interval: 352 msec QTC Interval: 386 msec P-R-T [place]: 36 - 9 - 7 degrees IMPRESSION: [...] Tom Mora M.D. KH: RAVIN Report ID: [id number] Reading Location: [id number] Current Facility-Administered Medications Medication Dose Route Frequency [...] mg/mL (33.3 mg/mL as elemental magnesium) oral ksqraljakm34 mL 30 mL oral Daily PRN Peggy [...] Likely discharge home tomorrow Peggy Hernandez MD [facility] Residency-PGY1 [facility] Date of Service: 02/20/2024 6:50 [...] 02/19/2024 4:19 PM CDT Physical Therapy 02/19/24 8226 General Chart Reviewed Yes Session Type Evaluation [...] Using Wheeled walker Prior Function Level of [place] Needs assistance with ADLs;Needs assistance with ambulation;Needs [...] this the discharge summary Recommendation/Plan PT Recommendation/Plan [facility] Facility (pt would like to go to [facility] in [place]) Patient at high risk for Falls;Readmission;Injury due [...] (from Physical Therapy) Active Problems Problem: PT [facility] Start Date: 02/19/24 Goal Start Date Expected End Date End Date PT LTG - [facility] 1 02/19/24 02/26/24 -- Goal Details: Pt to require/be cga with bed mobility consistently to increase functional mobility. Goal Start Date Expected End Date End Date PT LTG - [facility] 2 02/19/24 02/26/24 -- Goal Details: Pt to require/be cga>min assist with all transfers consistently to increase functional mobility and safety. Goal Start Date Expected End Date End Date PT LTG - [facility] 3 02/19/24 02/26/24 -- Goal Details: Pt [...] cough, fever, or chills. Patient accepted by [facility], Josef Marino (Attending) and [...] Take 1 capsule by mouth daily omega 5-dre-ecl-fish oil 1,000 mg (120 mg-180 mg) capsule [...] Rate: 79 bpm RR Interval: 759 msec DE Interval: 139 msec QRS Duration: 90 msec QT Interval: 352 msec QTC Interval: 386 msec P-R-T [place]: 36 - 9 - 7 degrees IMPRESSION: [...] Tom Mora M.D. KH: RAVIN Report ID: [id number] Reading Location: [id number] Current Facility-Administered Medications Medication Dose Route Frequency [...] (premix) 1,000 mg 1,000 mg intravenous Q12H [facility] Mio Minor PA 1,000 mg at 02/19/24 [...] injection 60 mg 60 mg intravenous Q12H [facility] Mio Minor PA 60 mg at 02/19/24 [...] Likely 1-2 days Dispo: Likely discharge to [facility] Peggy Hernandez MD [facility] Medicine Residency- PGY1 [facility] Date of Service: 02/19/2024 3:09 [...] 02/23/2024 11:48 AM CDT Report called to [place] [facility] to Ahsan documented in this encounter [...] chills. History provided by: Patient and spouse lang interpreter used: No Patient History: Patient Active Problem [...] normal. Judgment: Judgment normal. Voice recognition software [employer] Direct was used to dictate and transcribe this document. Varnish Remover variances may occur. Despite proofreading, typographical errors may occur. [facility] Medical Decision Making 74-year-old female with comorbidities [...] weakness Impaired ambulation Mio Minor PA 02/18/24 1820 Cosigned by Rekha Aquino MD at 02/19/2024 [...] spouse. Receives help from spouse. PT recommendation: [facility] Facility due to Risk of injury at [...] 2007 Page: 143 Effective with discharges: August [facility]: Cancer Fatigue From the ICD-10-CM Coding Guidelines, [...] Bette Alfonso RN, CDS Clinical Documentation Improvement [phone] (cell) [email or web address] * Plan of Care - Moris Cruz [...] VSS. Free from fall/injury. Report called to [facility]. Belongings collected and ready for transport. Pt spouse was notified of patient status and care plan and expressed his understanding. Medication list faxed to [facility]. Pt was given a bed bath. IV [...] CDT 02/22/24 1541 Discharge Summary Discharge Disposition [facility] facility (short term care) Specify Facility [facility] Facility Contact Number Akiko/FUENTES: Roz [phone]; Facility #: [phone]; Report #: [phone]; Fax #: [phone] or [phone] Discharge Additional Assistance Does the patient need discharge transport arranged? No SW confirmed with Norah that pt can admit Sunday02/23/24 to [facility], pending her rapidCOVID results. * Plan of Care - Debo Lee LCSW - 02/22/2024 3:39 PM CDT Received message that pt's insurance has approved rehab/SNF. Called and left message for Norah at [facility] asking when we can plan admission. [...] Pt's insurance auth is still pending with [facility] Medicare. * Plan of Care - Celena [...] AM CDT Sent updated PT/OT notes via [employer] to [facility] and asked them to submit for [...] Equipment-Currently Using Wheeled walker -AV Level of [place] Independent with ADLs;Independent functional transfers;Independent with ambulation;Independent [...] this the discharge summary -AV OT Recommendation [facility] Facility -AV Patient at high risk for [...] Equipment-Currently Using Wheeled walker -JL Level of [place] Needs assistance with ADLs;Needs assistance with ambulation;Needs [...] this the discharge summary -JL PT Recommendation/Plan [facility] Facility pt would like to go to [facility] in [place] - Patient at high risk for Falls;Readmission;Injury [...] 168 hours) PT Treatment Row Name 02/20/24 0573 PT Last Visit Session Type Treatment -BE [...] the discharge summary -BE Recommendation/Plan PT Recommendation/Plan [facility] Facility -BE Patient at high risk for [...] Initials Name Effective Dates BE RonSada Mallorie, STAMPING OPERATOR 07/01/19 - PT Notes 02/19/2024 4:19 PM [...] clinical impression in detail Respiratory Failure References [employer] [place] [employer] Hospitalist Sep 2013 Coding Clinics: 3rd Q 1987, p 7 and 2nd Q 1989, p.20 https://www.[facility].gov/pfuipycd-szv-obtamzyhb/medicare-learning-network-mln/mlnprod ucts/downloads/xslm-httack-liqawpl-text-only.pdf From the ICD-10-CM Official Guidelines for Coding [...] Bette Alfonso RN, CDS Clinical Documentation Improvement [phone] (cell) [email or web address] * Plan of Care - Angelita Arreola [...] Coverage: [employer] Medicare Prescription Coverage: yes Pharmacy: [address] [address] Primary Care Provider: Lyla Perry MD Prior [...] a week How often do you attend roman catholic or protestant services?: Never Do you belong to any clubs or organizations such as roman catholic groups, unions, [...] discharge needs include: Home Health: Physical therapy, [facility] (02/20/24 140) Dialysis: Behavioral Health Services: Behavioral Health Services: No (02/20/241405) Patient expects to be Discharged to: [facility] Facility (vs home with [facility] PT/SN), (02/20/24 140) Additional Information: DC plan discussed with patient in her room. She drives and was independent until just recently, her drives and is independent and will be her ride home. Patient wears oxygen continuously at 3 LPM [facility]. She also has a cane, some crutches, [...] PM CDT [facility] * [facility] Note - Debo Lee LCSW - 02/20/2024 1:56 PM CDT Images from the original note were not included. Patient Information: Referral Summary Patient Information Patient Name: LINDA LAKE Date of 1950 (74 years) Sex: Female [...] 0659 02/20/24 07 - 02/21/24 0659 Total [phone] Total [phone] [phone] Total Intake (ml) 10 1000 2287 826 9612 360 -- -- 360 Output (ml) -- -- -- -- -- -- -- -- -- Net (ml) 10 1000 [phone] 360 -- -- 360 Last Weight 77.1 [...] Recent Administrations acetaminophen (TYLENOL) tablet 650 mg [[id number]] Ordering Provider: Mio Minor PA Status: Verified (Past End Date/Time) Ordered On: 02/18/241819 Starts/Ends: 02/18/241820 - 02/19/241820 Ordered Dose (Remaining/Total): 650 mg (11/19) Route: oral Frequency: Once Ordered Rate/Order Duration: -- / -- (No admins scheduled or recorded for this medication) methylPREDNISolone sodium succinate (SOLU-medrol) preservative free injection 60 mg [[id number]] Ordering Provider: Mio Minor PA Status: Discontinued [...] Performed by: Naveen Mike RN Scanned Package: [id number] ipratropium-albuteroL (DUO-NEB) 0.5-2.5 mg/3 mL nebulizer solution 3 mL [[id number]] Ordering Provider: Mio Minor PA Status: Verified Ordered On: 02/18/242234 Start: 02/18/242234 Ordered Dose (Remaining/Total): 3 mL (--/--) Route: nebulization Frequency: Every 6 hours PRN (respiratory care faculty) Ordered Rate/Order Duration: -- / -- (No admins scheduled or recorded for this medication) azithromycin (ZITHROMAX) tablet 500 mg [[id number]] Ordering Provider: Mio Minor PA Status: Discontinued (Past End Date/Time) Ordered On: 02/18/242235 Starts/Ends: 02/18/242237 - 02/19/241515 Ordered Dose (Remaining/Total): 500 mg (--/--) Route: oral Frequency: Daily Ordered Rate/Order Duration: -- / -- Timestamps Action Dose Route Other Information 02/18/242255 Given 500 mg oral Performed by: Flor Nguyễn RN Scanned Package: [id number] cefTRIAXone (ROCEPHIN) 1,000 mg/10 mL in sterile water (premix) 1,000 mg [[id number]] Ordering Provider: Mio Minor PA Status: Discontinued (Past End Date/Time) Ordered On: 02/18/242235 Starts/Ends: 02/18/242236 - 02/19/241515 Ordered Dose (Remaining/Total): 1,000 mg (--/--) Route: intravenous Frequency: Every 12 hours scheduled Ordered Rate/Order Duration: 120 mL/hr / 5 Minutes Line Med Link Info Comment Peripheral IV 02/18/24 22 G Left;Posterior Hand 02/18/242255 by Flor Nguễyn RN -- Timestamps Action Dose / Rate / Duration Route Other Information 02/19/24 0920 Given 1,000 mg 120 mL/hr 5 Minutes intravenous Performed by: Naveen Mike RN ondansetron (ZOFRAN) injection 4 mg [[id number]] Ordering Provider: Mio Minor PA Status: Completed [...] Nguyễn RN enoxaparin (LOVENOX) syringe 40 mg [[id number]] Ordering Provider: Mio Minor PA Status: Discontinued (Past End Date/Time) Ordered On: 02/19/24 0806 Starts/Ends: 02/19/24 2100 - 02/19/24 1045 Ordered Dose (Remaining/Total): 40 mg (--/--) Route: subcutaneous Frequency: Daily (for enoxaparin) Ordered Rate/Order Duration: -- / -- (No admins scheduled or recorded for this medication) sodium chloride 0.9% bolus 1,000 mL [[id number]] Ordering Provider: Josef Momin MD Status: Completed [...] calcium carbonate (TUMS) chewable tablet 500 mg [[id number]] Ordering Provider: Peggy Hernandez MD Status: Dispensed Ordered On: 02/19/24805 Start: 02/19/24 0900 Ordered Dose (Remaining/Total): 200 mg of elemental calcium (--/--) Route: oral Frequency: Daily Ordered Rate/Order Duration: -- / -- Timestamps Action Dose Route Other Information 02/20/24 0828 Given 500 mg oral Performed by: Angelita Arreola RN Scanned Package: 07361-801-93 citalopram (CeleXA) tablet 20 mg [[id number]] Ordering Provider: Peggy Hernandez MD Status: Dispensed Ordered On: 02/19/24805 Start: 02/19/24 1200 Ordered Dose (Remaining/Total): 20 mg (--/--) Route: oral Frequency: Daily Ordered Rate/Order Duration: -- / -- Timestamps Action Dose Route Other Information 02/20/24 0829 Given 20 mg oral Performed by: Angelita Arreola RN Scanned Package: [id number] clonazePAM (KlonoPIN) tablet 1 mg [[id number]] Ordering Provider: Peggy Hernandez MD Status: Dispensed Ordered On: 02/19/24805 Start: 02/19/24 0900 Ordered Dose (Remaining/Total): 1 mg (--/--) Route: oral Frequency: Daily Ordered Rate/Order Duration: -- / -- Timestamps Action Dose Route Other Information 02/20/24 0829 Given 1 mg oral Performed by: Angelita Arreola RN Scanned Package: 94604-910-77, 45452-774-99 furosemide (LASIX) tablet 10 mg [[id number]] Ordering Provider: Peggy Hernandez MD Status: Dispensed Ordered On: 02/19/24805 Start: 02/19/24 09 Ordered Dose (Remaining/Total): 10 mg (--/--) Route: oral Frequency: Daily Ordered Rate/Order Duration: -- / -- Timestamps Action Dose Route Other Information 02/20/24 0828 Given 10 mg oral Performed by: Angelita Arreola RN Scanned Package: 30816-149-66 pramipexole (MIRAPEX) tablet 1.5 mg [[id number]] Ordering Provider: Peggy Hernandez MD Status: Dispensed Ordered On: 02/19/24805 Start: 02/19/24 1200 Ordered Dose (Remaining/Total): 1.5 mg (--/--) Route: oral Frequency: 2 times daily Ordered Rate/Order Duration: -- / -- Timestamps Action Dose Route Other Information 02/20/24 08 Given 1.5 mg oral Performed by: Angelita Arreola RN Scanned Package: 93779-201-90, 06604-292-24, 96158-563-76 primidone (MYSOLINE) tablet 250 mg [[id number]] Ordering Provider: Peggy Hernandez MD Status: Dispensed Ordered On: 02/19/24805 Start: 02/19/24 1200 Ordered Dose (Remaining/Total): 250 mg (--/--) Route: oral Frequency: Daily Ordered Rate/Order Duration: -- / -- Timestamps Action Dose Route Other Information 02/20/24 08 Given 250 mg oral Performed by: Angelita Arreola RN Scanned Package: 80619-168-98, 14975-524-09, 24327-747-93, 30088-025-76, 11078-019-36 propranoloL (INDERAL) tablet 80 mg [[id number]] Ordering Provider: Peggy Hernandez MD Status: Dispensed Ordered On: 02/19/24805 Start: 02/19/24 0900 Ordered Dose (Remaining/Total): 80 mg (--/--) Route: oral Frequency: Every morning Ordered Rate/Order Duration: -- / -- Timestamps Action Dose Route Other Information 02/20/24 08 Given 80 mg oral Performed by: Angelita Arreola RN Scanned Package: 46934-759-95, 16573-880-87 propranoloL (INDERAL) tablet 40 mg [[id number]] Ordering Provider: Peggy Hernandez MD Status: Dispensed Ordered On: 02/19/24805 Start: 02/19/242099 Ordered Dose (Remaining/Total): 40 mg (--/--) Route: oral Frequency: Nightly Ordered Rate/Order Duration: -- / -- (No admins scheduled or recorded for this medication) rosuvastatin (CRESTOR) tablet 10 mg [[id number]] Ordering Provider: Peggy Hernandez MD Status: Dispensed Ordered On: 02/19/24805 Start: 02/19/242099 Ordered Dose (Remaining/Total): 10 mg (--/--) Route: oral Frequency: Nightly Ordered Rate/Order Duration: -- / -- Timestamps Action Dose Route Other Information 02/19/242047 Given 10 mg oral Performed by: Ronaldo Park RN Scanned Package: [id number] acetaminophen (TYLENOL) tablet 650 mg [[id number]] Ordering Provider: Peggy Hernandez MD Status: Dispensed Ordered On: 02/19/24805 Start: 02/19/24805 Ordered Dose (Remaining/Total): 650 mg (--/--) Route: oral Frequency: Every 4 hours PRN Ordered Rate/Order Duration: -- / -- Timestamps Action Dose Route Other Information 02/20/24 09 Given 650 mg oral Performed by: Angelita Arreola RN Scanned Package: 75104-148-61, 77039-854-74 ondansetron ODT (ZOFRAN-ODT) disintegrating tablet 4 mg [[id number]] Ordering Provider: Peggy Hernandez MD Status: Verified Ordered On: 02/19/24805 Start: 02/19/24805 Ordered Dose (Remaining/Total): 4 mg (--/--) Route: oral Frequency: Every 6 hours PRN Ordered Rate/Order Duration: -- / -- (No admins scheduled or recorded for this medication) ondansetron (ZOFRAN) injection 4 mg [[id number]] Ordering Provider: Peggy Hernandez MD Status: Verified Ordered On: 02/19/24805 Start: 02/19/24805 Ordered Dose (Remaining/Total): 4 mg (--/--) Route: intravenous Frequency: Every 6 hours PRN Ordered Rate/Order Duration: -- / 2 Minutes (No admins scheduled or recorded for this medication) polyethylene glycol (MIRALAX) packet 17 g [[id number]] Ordering Provider: Peggy Hernandez MD Status: Dispensed Ordered On: 02/19/24805 Start: 02/19/24805 Ordered Dose (Remaining/Total): 17 g (--/--) Route: oral Frequency: Daily PRN Ordered Rate/Order Duration: -- / -- Timestamps Action Dose Route Other Information 02/20/24 1309 Given 17 g oral Performed by: Angelita Arreola RN Scanned Package: 02149-464-77 enoxaparin (LOVENOX) syringe 40 mg [[id number]] Ordering Provider: Peggy Hernandez MD Status: Dispensed Ordered On: 02/19/24805 Start: 02/19/242099 Ordered Dose (Remaining/Total): 40 mg (--/--) Route: subcutaneous Frequency: Daily (for enoxaparin) Ordered Rate/Order Duration: -- / -- Timestamps Action Dose Route / Site Other Information 02/19/242047 Given 40 mg subcutaneous Right Lower Abdomen Performed by: Ronaldo Park RN Scanned Package: 82079-991-56 Lactated Ringer's (LR) infusion [[id number]] Ordering Provider: Peggy Hernandez MD Status: Dispensed [...] Performed by: Angelita Arreola RN Scanned Package: 3923-4600-[address] (PROTONIX) extended release tablet 40 mg [[id number]] Ordering Provider: Peggy Hernandez MD Status: Dispensed Ordered On: 02/19/24 1503 Start: 02/19/24 154 Ordered Dose (Remaining/Total): 40 mg (--/--) Route: oral Frequency: Daily Ordered Rate/Order Duration: -- / -- Admin Instructions: Do not crush, chew, cut, dissolve, open or otherwise manipulate tablet/capsule. Timestamps Action Dose Route Other Information 02/20/24 0829 Given 40 mg oral Performed by: Angelita Arreola RN Scanned Package: 86880-748-82 magnesium hydroxide (MILK OF MAGNESIA) 80 mg/mL (33.3 mg/mL as elemental magnesium) oral pczfculzfr27 mL [[id number]] Ordering Provider: Peggy Hernandez MD Status: Dispensed Ordered On: 02/19/241514 Start: 02/19/241514 Ordered Dose (Remaining/Total): 30 mL (--/--) Route: oral Frequency: Daily PRN Ordered Rate/Order Duration: -- / -- Timestamps Action Dose Route Other Information 02/20/24 1309 Given 30 mL oral Performed by: Angelita Arreola RN Scanned Package: 42475-063-37 bisacodyl EC (DULCOLAX EC) tablet 10 mg [[id number]] Ordering Provider: Peggy Hernandez MD Status: Verified Ordered On: 02/19/241514 Start: 02/19/241514 Ordered Dose (Remaining/Total): 10 mg (--/--) Route: oral Frequency: Daily PRN Ordered Rate/Order Duration: -- / -- Admin Instructions: Do not crush, chew, cut, dissolve, open or otherwise manipulate tablet/capsule. (No admins scheduled or recorded for this medication) mineral oil (FLEET MINERAL OIL) enema 133 mL [[id number]] Ordering Provider: Peggy Hernandez MD Status: Verified Ordered On: 02/19/241514 Start: 02/19/241514 Ordered Dose (Remaining/Total): 1 enema (--/--) Route: rectal Frequency: Daily PRN Ordered Rate/Order Duration: -- / -- (No admins scheduled or recorded for this medication) benzonatate (TESSALON) capsule 100 mg [[id number]] Ordering Provider: Josef Momin MD Status: Discontinued (Past End Date/Time) Ordered On: 02/20/24214 Starts/Ends: 02/20/24214 - 02/20/24217 Ordered Dose (Remaining/Total): 100 mg (--/--) Route: oral Frequency: 3 times daily PRN Ordered Rate/Order Duration: -- / -- Admin Instructions: Do not crush, chew, cut, dissolve, open or otherwise manipulate tablet/capsule. (No admins scheduled or recorded for this medication) benzocaine-menthoL (CHLORASEPTIC) lozenge 1 lozenge [[id number]] Ordering Provider: Josef Momin MD Status: Discontinued (Past End Date/Time) Ordered On: 02/20/24217 Starts/Ends: 02/20/24216 - 02/20/24217 Ordered Dose (Remaining/Total): 1 lozenge (--/--) Route: mouth/throat Frequency: Every 4 hours PRN Ordered Rate/Order Duration: -- / -- (No admins scheduled or recorded for this medication) benzocaine-menthoL (CHLORASEPTIC) lozenge 1 lozenge [[id number]] Ordering Provider: Josef Momin MD Status: Dispensed Ordered On: 02/20/24218 Start: 02/20/24218 Ordered Dose (Remaining/Total): 1 lozenge (--/--) Route: mouth/throat Frequency: Every 4 hours PRN Ordered Rate/Order Duration: -- / -- Timestamps Action Dose Route Other Information 02/20/24 0829 Given 1 lozenge mouth/throat Performed by: Angelita Arreola RN Scanned Package: 6959-8040-64 benzonatate (TESSALON) capsule 100 mg [[id number]] Ordering Provider: Josef Momin MD Status: Dispensed [...] (SPIRIVA RESPIMAT) 2.5 mcg/actuation inhaler 2 puff [[id number]] Ordering Provider: Lew Chavez MD Status: Discontinued (Past End Date/Time), Reason: Formulary change Ordered On: 02/20/24850 Starts/Ends: 02/20/24929 - 02/20/24855 Ordered Dose (Remaining/Total): 2 puff (--/--) Route: inhalation Frequency: Daily (respiratory care faculty) Ordered Rate/Order Duration: -- / -- (No admins scheduled or recorded for this medication) budesonide-formoteroL (SYMBICORT) 160-4.5 mcg/actuation inhaler 2 puff [[id number]] Ordering Provider: Lew Chavez MD Status: Verified Ordered On: 02/20/24850 Start: 02/20/24929 Ordered Dose (Remaining/Total): 2 puff (--/--) Route: inhalation Frequency: 2 times daily (respiratory care faculty) Ordered Rate/Order Duration: -- / -- Admin Instructions: Rinse mouth with water after use. Do not swallow. (No admins scheduled or recorded for this medication) ipratropium (ATROVENT) 0.02 % nebulizer solution 0.5 mg [[id number]] Ordering Provider: Lew Chavez MD Status: Dispensed Ordered On: 02/20/24855 Start: 02/20/24 09 Ordered Dose (Remaining/Total): 0.5 mg (--/--) Route: nebulization Frequency: Every 6 hours (respiratory care faculty) Ordered Rate/Order Duration: -- / -- (No [...] Progress Notes signed by Josef Solis PT INTERIOR WALL ASSEMBLER ASSESSMENT (most recent) INTERIOR WALL ASSEMBLER Evaluation - 02/20/24 1112 Pain Assessment Pain Assessment No/denies pain INTERIOR WALL ASSEMBLER SWALLOW STUDY (most recent) Clinical Swallow Study No documentation. INTERIOR WALL ASSEMBLER TREATMENT (most recent) INTERIOR WALL ASSEMBLER Treatment - 02/20/24 1112 Pain Assessment Pain Assessment No/denies pain INTERIOR WALL ASSEMBLER Notes Notes from 02/18/24 through 02/20/24 No notes of this type exist for this encounter. , Meds and Admin Active Only All Meds/Most Recent Administrations acetaminophen (TYLENOL) tablet 650 mg [[id number]] Ordering Provider: Mio Minor PA Status: Verified (Past End Date/Time) Ordered On: 02/18/241819 Starts/Ends: 02/18/241820 - 02/19/241820 Ordered Dose (Remaining/Total): 650 mg (11/19) Route: oral Frequency: Once Ordered Rate/Order Duration: -- / -- (No admins scheduled or recorded for this medication) ipratropium-albuteroL (DUO-NEB) 0.5-2.5 mg/3 mL nebulizer solution 3 mL [[id number]] Ordering Provider: Mio Minor PA Status: Verified Ordered On: 02/18/242234 Start: 02/18/242234 Ordered Dose (Remaining/Total): 3 mL (--/--) Route: nebulization Frequency: Every 6 hours PRN (respiratory care faculty) Ordered Rate/Order Duration: -- / -- (No admins scheduled or recorded for this medication) ondansetron (ZOFRAN) injection 4 mg [[id number]] Ordering Provider: Mio Minor PA Status: Completed [...] RN sodium chloride 0.9% bolus 1,000 mL [[id number]] Ordering Provider: Josef Momin MD Status: Completed [...] calcium carbonate (TUMS) chewable tablet 500 mg [[id number]] Ordering Provider: Peggy Hernandez MD Status: Dispensed Ordered On: 02/19/24 08 Start: 02/19/24899 Ordered Dose (Remaining/Total): 200 mg of elemental calcium (--/--) Route: oral Frequency: Daily Ordered Rate/Order Duration: -- / -- Timestamps Action Dose Route Other Information 02/20/24 0828 Given 500 mg oral Performed by: Angelita Arreola RN Scanned Package: 70540-479-32 citalopram (CeleXA) tablet 20 mg [[id number]] Ordering Provider: Peggy Hernandez MD Status: Dispensed Ordered On: 02/19/24805 Start: 02/19/24 1200 Ordered Dose (Remaining/Total): 20 mg (--/--) Route: oral Frequency: Daily Ordered Rate/Order Duration: -- / -- Timestamps Action Dose Route Other Information 02/20/24 0829 Given 20 mg oral Performed by: Angelita Arreola RN Scanned Package: 9308-4126-29 clonazePAM (KlonoPIN) tablet 1 mg [[id number]] Ordering Provider: Peggy Hernandez MD Status: Dispensed Ordered On: 02/19/24805 Start: 02/19/24 09 Ordered Dose (Remaining/Total): 1 mg (--/--) Route: oral Frequency: Daily Ordered Rate/Order Duration: -- / -- Timestamps Action Dose Route Other Information 02/20/24 0829 Given 1 mg oral Performed by: Angelita Arreola RN Scanned Package: 62113-540-74, 27503-675-34 furosemide (LASIX) tablet 10 mg [[id number]] Ordering Provider: Peggy Hernandez MD Status: Dispensed Ordered On: 02/19/24805 Start: 02/19/24 09 Ordered Dose (Remaining/Total): 10 mg (--/--) Route: oral Frequency: Daily Ordered Rate/Order Duration: -- / -- Timestamps Action Dose Route Other Information 02/20/24 08 Given 10 mg oral Performed by: Angelita Arreola RN Scanned Package: 15467-913-50 pramipexole (MIRAPEX) tablet 1.5 mg [[id number]] Ordering Provider: Peggy Hernandez MD Status: Dispensed Ordered On: 02/19/24805 Start: 02/19/24 1200 Ordered Dose (Remaining/Total): 1.5 mg (--/--) Route: oral Frequency: 2 times daily Ordered Rate/Order Duration: -- / -- Timestamps Action Dose Route Other Information 02/20/24 0829 Given 1.5 mg oral Performed by: Angelita Arreola RN Scanned Package: 45374-558-09, 77529-369-02, 70547-465-62 primidone (MYSOLINE) tablet 250 mg [[id number]] Ordering Provider: Peggy Hernandez MD Status: Dispensed Ordered On: 02/19/24805 Start: 02/19/24 1200 Ordered Dose (Remaining/Total): 250 mg (--/--) Route: oral Frequency: Daily Ordered Rate/Order Duration: -- / -- Timestamps Action Dose Route Other Information 02/20/24 08 Given 250 mg oral Performed by: Angelita Arreola RN Scanned Package: 09068-051-03, 40700-739-07, 40901-452-66, 62661-843-95, 99253-255-43 propranoloL (INDERAL) tablet 80 mg [[id number]] Ordering Provider: Peggy Hernandez MD Status: Dispensed Ordered On: 02/19/24805 Start: 02/19/24 09 Ordered Dose (Remaining/Total): 80 mg (--/--) Route: oral Frequency: Every morning Ordered Rate/Order Duration: -- / -- Timestamps Action Dose Route Other Information 02/20/24 08 Given 80 mg oral Performed by: Angelita Arreola RN Scanned Package: 65025-236-10, 65205-108-45 propranoloL (INDERAL) tablet 40 mg [[id number]] Ordering Provider: Peggy Hernandez MD Status: Dispensed Ordered On: 02/19/24805 Start: 02/19/24 2100 Ordered Dose (Remaining/Total): 40 mg (--/--) Route: oral Frequency: Nightly Ordered Rate/Order Duration: -- / -- (No admins scheduled or recorded for this medication) rosuvastatin (CRESTOR) tablet 10 mg [[id number]] Ordering Provider: Peggy Hernandez MD Status: Dispensed Ordered On: 02/19/24805 Start: 02/19/242099 Ordered Dose (Remaining/Total): 10 mg (--/--) Route: oral Frequency: Nightly Ordered Rate/Order Duration: -- / -- Timestamps Action Dose Route Other Information 02/19/242047 Given 10 mg oral Performed by: Ronaldo Park RN Scanned Package: 82274-420-03 acetaminophen (TYLENOL) tablet 650 mg [[id number]] Ordering Provider: Peggy Hernandez MD Status: Dispensed Ordered On: 02/19/24805 Start: 02/19/24805 Ordered Dose (Remaining/Total): 650 mg (--/--) Route: oral Frequency: Every 4 hours PRN Ordered Rate/Order Duration: -- / -- Timestamps Action Dose Route Other Information 02/20/24912 Given 650 mg oral Performed by: Angelita Arreola RN Scanned Package: 63155-293-17, 47448-266-05 ondansetron ODT (ZOFRAN-ODT) disintegrating tablet 4 mg [[id number]] Ordering Provider: Peggy Hernandez MD Status: Verified Ordered On: 02/19/24805 Start: 02/19/24805 Ordered Dose (Remaining/Total): 4 mg (--/--) Route: oral Frequency: Every 6 hours PRN Ordered Rate/Order Duration: -- / -- (No admins scheduled or recorded for this medication) ondansetron (ZOFRAN) injection 4 mg [[id number]] Ordering Provider: Peggy Hernandez MD Status: Verified Ordered On: 02/19/24805 Start: 02/19/24805 Ordered Dose (Remaining/Total): 4 mg (--/--) Route: intravenous Frequency: Every 6 hours PRN Ordered Rate/Order Duration: -- / 2 Minutes (No admins scheduled or recorded for this medication) polyethylene glycol (MIRALAX) packet 17 g [[id number]] Ordering Provider: Peggy Hernandez MD Status: Dispensed Ordered On: 02/19/24 0806 Start: 02/19/24 0806 Ordered Dose (Remaining/Total): 17 g (--/--) Route: oral Frequency: Daily PRN Ordered Rate/Order Duration: -- / -- Timestamps Action Dose Route Other Information 02/20/24 1309 Given 17 g oral Performed by: Angelita Arreola RN Scanned Package: 46285-805-44 enoxaparin (LOVENOX) syringe 40 mg [[id number]] Ordering Provider: Peggy Hernandez MD Status: Dispensed Ordered On: 02/19/24 0806 Start: 02/19/24 2100 Ordered Dose (Remaining/Total): 40 mg (--/--) Route: subcutaneous Frequency: Daily (for enoxaparin) Ordered Rate/Order Duration: -- / -- Timestamps Action Dose Route / Site Other Information 02/19/242047 Given 40 mg subcutaneous Right Lower Abdomen Performed by: Ronaldo Park RN Scanned Package: 58545-757-15 Lactated Ringer's (LR) infusion [[id number]] Ordering Provider: Peggy Hernandez MD Status: Dispensed [...] Performed by: Angelita Arreola RN Scanned Package: 6394-9566-[address] (PROTONIX) extended release tablet 40 mg [[id number]] Ordering Provider: Peggy Hernandez MD Status: Dispensed Ordered On: 02/19/24 1503 Start: 02/19/24 1545 Ordered Dose (Remaining/Total): 40 mg (--/--) Route: oral Frequency: Daily Ordered Rate/Order Duration: -- / -- Admin Instructions: Do not crush, chew, cut, dissolve, open or otherwise manipulate tablet/capsule. Timestamps Action Dose Route Other Information 02/20/24 0829 Given 40 mg oral Performed by: Angelita Arreola RN Scanned Package: 95753-260-66 magnesium hydroxide (MILK OF MAGNESIA) 80 mg/mL (33.3 mg/mL as elemental magnesium) oral otywpewegg79 mL [[id number]] Ordering Provider: Peggy Hernandez MD Status: Dispensed Ordered On: 02/19/241514 Start: 02/19/241514 Ordered Dose (Remaining/Total): 30 mL (--/--) Route: oral Frequency: Daily PRN Ordered Rate/Order Duration: -- / -- Timestamps Action Dose Route Other Information 02/20/24 1309 Given 30 mL oral Performed by: Angelita Arreola RN Scanned Package: 27420-087-45 bisacodyl EC (DULCOLAX EC) tablet 10 mg [[id number]] Ordering Provider: Peggy Hernandez MD Status: Verified Ordered On: 02/19/241514 Start: 02/19/241514 Ordered Dose (Remaining/Total): 10 mg (--/--) Route: oral Frequency: Daily PRN Ordered Rate/Order Duration: -- / -- Admin Instructions: Do not crush, chew, cut, dissolve, open or otherwise manipulate tablet/capsule. (No admins scheduled or recorded for this medication) mineral oil (FLEET MINERAL OIL) enema 133 mL [[id number]] Ordering Provider: Peggy Hernandez MD Status: Verified Ordered On: 02/19/241514 Start: 02/19/241514 Ordered Dose (Remaining/Total): 1 enema (--/--) Route: rectal Frequency: Daily PRN Ordered Rate/Order Duration: -- / -- (No admins scheduled or recorded for this medication) benzocaine-menthoL (CHLORASEPTIC) lozenge 1 lozenge [[id number]] Ordering Provider: Josef Momin MD Status: Dispensed Ordered On: 02/20/24218 Start: 02/20/24218 Ordered Dose (Remaining/Total): 1 lozenge (--/--) Route: mouth/throat Frequency: Every 4 hours PRN Ordered Rate/Order Duration: -- / -- Timestamps Action Dose Route Other Information 02/20/24828 Given 1 lozenge mouth/throat Performed by: Angelita Arreola RN Scanned Package: 6994-4007-43 benzonatate (TESSALON) capsule 100 mg [[id number]] Ordering Provider: Josef Momin MD Status: Dispensed [...] budesonide-formoteroL (SYMBICORT) 160-4.5 mcg/actuation inhaler 2 puff [[id number]] Ordering Provider: Lew Chavez MD Status: Verified Ordered On: 02/20/24850 Start: 02/20/24929 Ordered Dose (Remaining/Total): 2 puff (--/--) Route: inhalation Frequency: 2 times daily (respiratory care faculty) Ordered Rate/Order Duration: -- / -- Admin Instructions: Rinse mouth with water after use. Do not swallow. (No admins scheduled or recorded for this medication) ipratropium (ATROVENT) 0.02 % nebulizer solution 0.5 mg [[id number]] Ordering Provider: Lew Chavez MD Status: Dispensed Ordered On: 02/20/24855 Start: 02/20/24929 Ordered Dose (Remaining/Total): 0.5 mg (--/--) Route: nebulization Frequency: Every 6 hours (respiratory care faculty) Ordered Rate/Order Duration: -- / -- (No [...] Equipment-Currently Using Wheeled walker -AV Level of [place] Independent with ADLs;Independent functional transfers;Independent with ambulation;Independent [...] this the discharge summary -AV OT Recommendation [facility] Facility -AV Patient at high risk for [...] 72 Hours PT Evaluation Row Name 02/19/24 3031 Chart Reviewed Yes -JL Session Type Evaluation [...] Equipment-Currently Using Wheeled walker -JL Level of [place] Needs assistance with ADLs;Needs assistance with ambulation;Needs [...] this the discharge summary -JL PT Recommendation/Plan [facility] Facility pt would like to go to bounce back in [place] -JL Patient at high risk for Falls;Readmission;Injury [...] a chair in triage. Voice recognition software [employer] was used to dictate and transcribe this document. Varnish Remover variances may occur. Despite proofreading, typographical errors [...] BLOOD ORDERABLE S Final Result [facility] ([place]) 1 [facility] [place] [address] * (ABNORMAL) Differential, auto (02/23/2024 2:57 AM [...] Neutrophil pct 59.9 % [facility] ([place]) Comment: Interpretive Data Percent cell count reference ranges are not reported, since discordance with absolute values may lead to misinterpretation of CBC data. Current Interpretive Data was last revised on 2018. Imm gran pct 0.5 % [facility] ([place]) Comment: Interpretive Data Percent cell count reference [...] S Final Result [facility] ([place]) 1 [facility] [place] [address] * (ABNORMAL) CBC with auto differential (02/23/2024 [...] BLOOD ORDERABLE S Final Result [facility] ([place]) 1 [facility] [employer] [place] [address] * Phosphorus (02/23/2024 2:57 AM CDT) Phosphorus, pl 3.6 2.3 - 4.5 mg/dL Blood 02/23/2024 2:57 AM CDT 02/23/2024 3:23 AM CDT us Josef Ramirez Jr., MD LAB BLOOD ORDERABLE S Final Result Performing Organization Address City/[facility]/ZIP Co de Phone Number [facility] ([place]) 1 [facility] [employer] [place] [address] * Magnesium (02/23/2024 2:57 AM CDT) Pathologist [facility] Magnesium 2.1 1.4 - 2.5 mg/dL Blood 02/23/2024 2:57 AM CDT 02/23/2024 3:23 AM CDT us Josef Ramirez Jr., MD LAB BLOOD ORDERABLE S Final Result Performing Organization Address City/[facility]/ZIP Co de Phone Number [facility] ([place]) 1 [facility] [employer] [place] [address] * (ABNORMAL) Comprehensive metabolic panel (02/23/2024 2:57 AM CDT) Sodium 140 135 - 145 mmol/L Potassium, pl 4.1 3.3 - 4.9 mmol/L [facility] ([place]) Chloride 96(L) 97 - 110 mmol/L [facility] ([place]) CO2 37(H) 22 - 32 mmol/L [facility] ([place]) Anion gap 7 2 - 15 mmol/L [facility] ([place]) BUN 5(L) 6 - [...] MD LAB BLOOD ORDERABLE S Final Result [facility] ([place]) 1 [facility] [place] [address] * COVID-19 Coronavirus RNA Nasopharyngeal (02/22/2024 6:25 [...] . ??This test is performed using the Cordium Xpert Xpress plus assay. This is a [...] . ??This test is performed using the Cordium Xpert Xpress plus assay. This is a [...] - GENERAL ORDERABLES Final Result [facility] ([place]) 1 [facility] [place] [address] * eGFR (02/22/2024 2:43 AM CDT) eGFR [...] MD LAB BLOOD ORDERABLE S Final Result [facility] ([place]) 1 [facility] Department [place] [address] * Differential, auto (02/22/2024 2:43 AM CDT) [...] S Final Result [facility] ([place]) 1 [facility] [place] [address] * (ABNORMAL) CBC with auto differential (02/22/2024 [...] S Final Result [facility] ([place]) 1 [facility] [place] [address] * Phosphorus (02/22/2024 2:43 AM CDT) Phosphorus, pl 4.0 2.3 - 4.5 mg/dL Blood 02/22/2024 2:43 AM CDT 02/22/2024 3:06 AM CDT us Josef Ramirez Jr., MD LAB BLOOD ORDERABLE S Final Result [facility] ([place]) 1 [facility] [address] * Magnesium (02/22/2024 2:43 AM CDT) Magnesium 2.1 1.4 - 2.5 mg/dL Blood 02/22/2024 2:43 AM CDT 02/22/2024 3:06 AM CDT us Josef Ramirez Jr., MD LAB BLOOD ORDERABLE S Final Result [facility] ([place]) 1 [facility] Department [place] [address] * (ABNORMAL) Comprehensive metabolic panel (02/22/2024 2:43 [...] S Final Result [facility] ([place]) 1 [facility] [place] [address] * US Guided Aspiration or Injection of [...] AM T: ??02/21/2024 10:58 AM Report ID: [id number] Reading Location: ??[id number] Procedure Note Ahsan Dinh MD - 02/21/2024 [...] Ahsan Dinh M.D. MF: [id number] Report ID: [id number] Reading Location: [id number] us Josef Ramirez Jr., MD IMG US [...] ORDERABLES Final Result [facility] ([place]) 1 [facility] Department [place] [address] * Aerobic and anaerobic culture and gram stain Aspirate Knee, right (02/21/2024 9:50 AM CDT) Direct Specimen Exam Stain: No polymorphonuclear leukocytes seen. No organisms seen. Comment:Testing performed by : [facility], [address] [place] [address] Report Final Report: No growth [facility] ([place]) Comment:Testing performed by : [facility], [address] [place]., [address] Aspirate (Knee, right) 02/21/2024 9:50 AM CDT 02/21/2024 12:16 PM CDT Narrative [facility] ([place]) - 02/26/2024 11:49 AM CDT Testing performed by [facility] ([phone]) Specimens submitted from normally sterile body sites [...] - GENERAL ORDERABLES Final Result [facility] [place]) 1 [facility] Department [place] [address] * eGFR (02/21/2024 3:37 AM [...] BLOOD ORDERABLE S Final Result [facility] ([place]) 1 [facility] [place] [address] * Differential, auto (02/21/2024 3:37 AM CDT) [...] S Final Result [facility] ([place]) 1 [facility] [place] [address] * (ABNORMAL) CBC with auto differential (02/21/2024 3:37 AM CDT) WBC 6.7 3.8 - 9.9 K/cumm Hgb 9.2(L) 11.9 - 15.5 g/dL [facility] ([place]) Hct 29.9(L) 35.6 - 45.5 % [facility] ([place]) Plt 428(H) 150 - 400 K/cumm [facility] ([place]) MPV 8.0(L) 9.1 - 12.3 fL [facility] ([place]) [...] ORDERABLE S Final Result Performing Organization Address [facility] Co de Phone Number [facility] ([place]) 1 [facility] [place] [address] * Phosphorus (02/21/2024 3:37 AM CDT) Pathologist [facility] Phosphorus, pl 3.3 2.3 - 4.5 mg/dL Blood 02/21/2024 3:37 AM CDT 02/21/2024 4:04 AM CDT Josef Ramirez Jr., MD LAB BLOOD ORDERABLE S Final Result Performing Organization Address [facility] Co de Phone Number [facility] ([place]) 1 [facility] [place] [address] * Magnesium (02/21/2024 3:37 AM CDT) [facility] Magnesium 2.0 1.4 - 2.5 mg/dL Blood 02/21/2024 3:37 AM CDT 02/21/2024 4:04 AM CDT Josef Ramirez Jr., MD LAB BLOOD ORDERABLE S Final Result Performing Organization Address [facility] Co de Phone Number [facility] ([place]) [address] [place] [address] * (ABNORMAL) Comprehensive metabolic panel (02/21/2024 3:37 AM CDT) [facility] Sodium 139 135 - 145 mmol/L Potassium, pl 4.0 3.3 - 4.9 mmol/L [facility] ([place]) Chloride 97 97 - 110 mmol/L [facility] (LUZ) CO2 36(H) 22 - 32 mmol/L [facility] (LUZ) Anion gap 7 2 - 15 mmol/L [facility] ([facility]) BUN 5(L) 6 - 25 mg/dL [facility] ([facility]) Creatinine 0.49(L) 0.60 - 1.10 mg/dL [facility] ([place]) Glucose 117 70 - 199 mg/dL [facility] [...] 89 40 - 130 Units/L [facility] (LZU) ALT 26 7 - 45 Units/L [facility] ([place]) AST 19 10 - 45 Units/L [facility] ([facility]) Blood 02/21/2024 3:37 AM CDT 02/21/2024 4:04 AM CDT us Josef Ramirez Jr., MD LAB BLOOD ORDERABLE S Final Result [facility] ([place]) 1 [facility] [place] [address] * US Lower Extremity Right Limited (02/20/2024 3:06 PM CDT) Anatomical Region Laterality Modality Lower Extremities Right Ultrasound 02/20/2024 3:47 PM CDT Narrative 02/20/2024 3:48 PM CDT EXAM DESCRIPTION: ?? US LOWER EXTREMITY RIGHT LIMITED REASON FOR STUDY: Pain TECHNIQUE: A Dynamic assessment was performed of the right lower extremity by the roll table operator, with selected grayscale and color Doppler images [...] PM T: ??02/20/2024 3:48 PM Report ID: [id number] Reading Location: ??[id number] Procedure Note Jonn Lopez MD - 02/20/2024 EXAM DESCRIPTION: US LOWER EXTREMITY RIGHT LIMITED REASON FOR STUDY: Pain TECHNIQUE: A Dynamic assessment was performed of the right lower extremityby the roll table operator, with selected grayscale and color Doppler images [...] Jonn Lopez M.D. MM: MM Report ID: [id number] Reading Location: [id number] Josef Ramirez Jr., MD IMG US PROCEDURES [...] PM T: ??02/20/2024 3:47 PM Report ID: [id number] Reading Location: ??[id number] Procedure Note Jonn Lopez MD - 02/20/2024 [...] Jonn Lopez M.D. MM: MM Report ID: [id number] Reading Location: [id number] Josef Ramirez Jr., MD IM XR PROCEDURES F inal Result * Uric acid (02/20/2024 2:53 AM CDT) Uric acid 3.6 2.5 - 7.0 mg/dL Blood 02/20/2024 2:53 AM CDT 02/20/2024 9:27 AM CDT us Josef Ramirez Jr., MD LAB BLOOD ORDERABLE S Final Result Performing Organization Address City/State/[facility] Co de Phone Number [facility] [place]) 1 [facility] [place] [address] * eGFR (02/20/2024 2:53 AM CDT) eGFR [...] BLOOD ORDERABLE S Final Result [facility] ([place]) 1 [facility] [place] [address] * Differential, auto (02/20/2024 2:53 AM CDT) Neutrophil abs 5.0 1.5 - 6.5 K/cumm Imm gran abs 0.0 0.0 - 0.1 K/cumm [facility] ([place]) Lymphocyte abs 2.7 0.8 - 3.3 K/cumm [facility] ([place]) Monocyte abs 0.2 0.2 - 0.8 K/cumm [facility] ([place]) Eosinophil abs 0.1 0.0 - 0.5 K/cumm [facility] ([place]) Basophil abs 0.0 0.0 - 0.1 K/cumm [facility] ([place]) Neutrophil pct 62.1 % [facility] ([place]) Comment: Interpretive Data Percent cell count reference ranges are not reported, since discordance with absolute values may lead to misinterpretation of CBC data. Current Interpretive Data was last revised on 2018. Imm gran pct 0.4 % [facility] ([place]) Comment: Interpretive Data Percent cell count reference ranges are not reported, since discordance with absolute values may lead to misinterpretation of CBC data. Current Interpretive Data was last revised on 2018. Lymphocyte pct 33.7 % [facility] ([place]) Comment: Interpretive Data Percent cell count reference [...] S Final Result [facility] ([place]) 1 [facility] [place] [address] * (ABNORMAL) CBC with auto differential (02/20/2024 [...] BLOOD ORDERABLE S Final Result [facility] ([place]) 1 [place] [address] * Phosphorus (02/20/2024 2:53 AM CDT) Phosphorus, pl 3.0 2.3 - 4.5 mg/dL Blood 02/20/2024 2:53 AM CDT 02/20/2024 3:47 AM CDT us Josef Ramirze Jr., MD LAB BLOOD ORDERABLE S Final Result Performing Organization Address City/[facility] Co de Phone Number [facility] ([place]) 1 [place] [address] * Magnesium (02/20/2024 2:53 AM CDT) Pathologist [facility] Magnesium 1.9 1.4 - 2.5 mg/dL Blood 02/20/2024 2:53 AM CDT 02/20/2024 3:47 AM CDT us Josef Ramirez Jr., MD LAB BLOOD ORDERABLE S Final Result Performing Organization Address City/[facility]/ZIP Co de Phone Number [facility] ([place]) 1 [place] [address] * (ABNORMAL) Comprehensive metabolic panel (02/20/2024 2:53 AM CDT) Sodium 141 135 - 145 mmol/L Potassium, pl 3.9 3.3 - 4.9 mmol/L [facility] ([place]) Chloride 101 97 - 110 mmol/L [facility] ([place]) CO2 34(H) 22 - 32 mmol/L [facility] ([place]) Anion gap 6 2 - 15 mmol/L [facility] ([place]) BUN 8 6 - 25 mg/dL [facility] ([place]) Creatinine 0.47(L) 0.60 - 1.10 mg/dL [...] MD LAB BLOOD ORDERABLE S [facility] 1 [facility] [place] [address] * (ABNORMAL) Erythrocyte sedimentation rate (02/19/2024 2:38 PM CDT) Erythrocyte sedimentation rate >145(H) 1 - 30 mm/hr Blood 02/19/2024 2:38 PM CDT 02/19/2024 2:50 PM CDT Narrative [facility] ([facility]) - 02/19/2024 3:14 PM CDT Specimen not collected in ED. us Josef Ramirez Jr., MD LAB BLOOD ORDERABLE S Final Result Performing Organization Address City/[facility]/ZIP Co de Phone Number [facility] ([place]) 1 [facility] [place] [address] * Urine culture Urine, clean voided (02/19/2024 8:07 AM CDT) Report Final Report: Less than 100,000 colonies/mL (clinically insignificant growth based on current clinical standards) Comment:Testing performed by : [facility], 1 [place] [address] Organism (CLINICALLY INSIGNIFICANT GROWTH [facility] ([place]) Urine, clean voided 02/19/2024 8:07 AM CDT 02/19/2024 10:12 AM CDT Narrative [facility] ([place]Z) - 02/20/2024 11:16 AM CDT Urine culture reflexed based upon urinalysis results. Testing performed by [facility] ([phone]) us Mio [facility] LAB MICROBIOLOGY - GENERAL O RDERABLES Final Result Performing Organization Address [facility] Co de Phone Number [facility] ([place]) 1 [facility] Department [place] [address] * (ABNORMAL) Urinalysis, microscopic only (02/19/2024 8:07 [...] Final R esult [facility] ([place]) 1 [facility] [place] [address] * (ABNORMAL) Urinalysis reflex to microscopic and [...] tendency for uric acid stone formation. Source: [facility] [employer] Current Interpretive Data was last revised on [...] O RDERABLES Final Result Performing Organization Address [facility]/ZIP Co de Phone Number [facility] ([place]) 1 [facility] [place] [address] * Procalcitonin (02/19/2024 12:19 AM CDT) Procalcitonin <0.05 <=0.08 ng/mL Comment:Testing performed by : [facility], [facility], [place]., [address] Blood 02/19/2024 12:1 9 AM CDT 02/19/2024 5:18 PM CDT us Josef Ramirez Jr., MD LAB BLOOD ORDERABLE S Final Result Performing Organization Address [facility] Co de Phone Number [facility] ([place]) 1 [facility] [place] [address] * (ABNORMAL) CRP (acute phase) (02/19/2024 12:19 AM CDT) CRP 280.2(H) <=10.0 mg/L Blood 02/19/2024 12:1 9 AM CDT 02/19/2024 10:12 AM CDT us Josef Ramirez Jr., MD LAB BLOOD ORDERABLE S Final Result Performing Organization Address [facility] Co de Phone Number [facility] ([place]) 1 [facility] [place] [address] * (ABNORMAL) Troponin T high-sensitivity 6-hour (02/19/2024 12:19 AM CDT) Trop T hs 21(H) <=14 ng/L Comment: Interpretive Data For further hscTnT resources including the diagnostic algorithm and an aid in interpretation, copy and paste this link: https://nrl.testcatalog.org/show/hsTrop Current Interpretive Data last revised 2020. Trop T hs delta -1 ng/L [facility] ([place]) Trop T hs interp Insignificant [facility] ([place]) Blood 02/19/2024 12:1 9 AM CDT 02/19/2024 12:22 AM CDT Ishmael Hawkins MD LAB BLOOD ORDERABLES Final R esult Performing Organization Address City/[facility] Co de Phone Number [facility] ([place]) 1 [place] [address] * Troponin T high-sensitivity 4-hour (02/18/2024 10:35 PM CDT) Trop T hs See Comment <=14 Comment: cannot perform test due to hemolysis Interpretive Data For further hscTnT resources including the diagnostic algorithm and an aid in interpretation, copy and paste this link: https://nrl.testcatalog.org/show/hsTrop Current Interpretive Data last revised 2020. Trop T hs interp See Comment C THOMAS [facility] ([place]) Comment:cannot perform test due to hemolysis Blood 02/18/2024 10:3 5 PM CDT 02/18/2024 10:36 PM CDT Ishmael Hawkins MD LAB BLOOD ORDERABLES Final R esult Performing Organization Address City/[facility] Co de Phone Number [facility] ([place]) [address] [place] [id number] * Influenza A/B, RSV, and COVID-19 PCR Nasopharyngeal (02/18/2024 10:23 PM CDT) COVID-19 RNA Negative Negative Influenza A RNA Negative Negative [facility] ([place]) Influenza B RNA Negative Negative [facility] ([place]) RSV RNA Negative Negative [facility] ([place]) Comment: Interpretive data: Testing performed by [facility]. This test is performed using the [employer]ium Xpert Xpress CoV-2/Flu/RSV plus assay. This is a multiplex, real- time reverse transcriptase PCR assay intended for the qualitative detection of nucleic acid from SARS-CoV-2, influenza A, influenza B, and respiratory syncytial virus. This assay has been cleared by the [place] Food and Drug administration. The performance characteristics have been verified by the [facility]. ?? Results must be considered in the clinical context, and a negative result does not rule out infection. Interpretive Data last revised 2023 Nasopharyngeal 02/18/2024 10 :23 PM CDT 02/18/2024 10:25 PM CDT Narrative [facility] ([place]) - 02/18/2024 11:08 PM CDT Is the Patient experiencing symptoms consistent with COVID?->Yes us Mio [facility] MICROBIOLOGY - GENERAL O RDERABLES Final Result [facility] ([place]) 1 [facility] Department [place] [address] * XR CHEST 1 VIEW PORTABLE (02/18/2024 8:39 PM CDT) Anatomical Region Laterality Modality Body, Chest N/A Computed Radiogr aphy 02/18/2024 9:06 PM CDT Narrative 02/18/2024 9:08 PM CDT EXAM DESCRIPTION: XR CHEST 1 VIEW REASON FOR STUDY: Dyspnea. ??Hypoxemia. ?Pt has right leg swelling. ??Pt states she feels like crap. ? Patient has full O2 tank, no wheelchair available w/ health and safety advisor for tank ??history of COPD on oxygen [...] PM T: ??02/18/2024 9:08 PM Report ID: [id number] Reading Location: ??[id number] Procedure Note Tom Mora MD - 02/18/2024 EXAM DESCRIPTION: XR CHEST 1 VIEW REASON FOR STUDY: Dyspnea. Hypoxemia. Pt has right leg swelling. Pt states she feels like crap. Patienthas full O2 tank, no wheelchair available w/ health and safety advisor for tank history of COPDon oxygen and [...] signed by Tom ALICIA: RAVIN Report ID: [id number] Reading Location: [id number] us Marleny Vasquez MD IMG XR PROCEDURES [...] LAB BLOOD ORDERABLES Final R esult [facility] ([place]) 1 [facility] Department [place] [address] * (ABNORMAL) Differential, auto (02/18/2024 6:14 PM CDT) Pathologist [facility] Neutrophil abs 7.1(H) 1.5 - 6.5 K/cumm [...] BLOOD ORDERABLES Final R esult [facility] ([place]) 1 [facility] [place] [address] * (ABNORMAL) Pro B-type natriuretic peptide (02/18/2024 [...] Hawkins MD LAB BLOOD ORDERABLES Final [facility] Performing Organization Address City/[facility]/ZIP Co de Phone Number [facility] ([place]) 1 [place] [address] * (ABNORMAL) Troponin T high-sensitivity series (baseline, [...] Hawkins MD LAB BLOOD ORDERABLES Final R [facility] Performing Organization Address City/[facility]/ZIP Co de Phone Number [facility] ([place]) 1 [place] [address] * (ABNORMAL) Comprehensive metabolic panel (02/18/2024 6:14 PM CDT) Sodium 136 135 - 145 mmol/L Potassium, pl 3.9 3.3 - 4.9 mmol/L [facility] ([place]) Chloride 97 97 - 110 mmol/L [facility] ([place]) CO2 30 22 - 32 mmol/L [facility] ([place]) Anion gap 9 2 - 15 mmol/L [facility] ([place]) BUN 6 6 - 25 mg/dL [facility] ([place]) Creatinine 0.52(L) 0.60 - 1.10 mg/dL [facility] ([place]) Glucose 132 70 - [...] 3.0(L) 3.5 - 5.0 g/dL [facility] ([place]) Alk phos 101 40 - 130 Units/L [facility] ([place]) ALT 24 7 - 45 Units/L [facility] ([place]) AST 23 10 - 45 Units/L [facility] ([place]) Blood 02/18/2024 6:14 PM CDT 02/18/2024 6:18 PM CDT Ishmael Hawkins MD LAB BLOOD ORDERABLES Final R esult [facility] 1 [facility] [place] [address] * (ABNORMAL) CBC with auto differential (02/18/2024 [...] ORDERABLES Final R esult Performing Organization Address City/[facility] Co de Phone Number [facility] ([place]) 1 [facility] [place] [address] * ECG 12 lead (02/18/2024 6:10 PM CDT) 02/18/2024 6:10 PM CDT Narrative [facility] - 02/19/2024 12:36 PM CDT Vent Rate: 79 bpm RR Interval: 759 msec DE Interval: 139 msec QRS Duration: 90 msec QT Interval: 352 msec QTC Interval: 386 msec P-R-T [place]: 36 - 9 - 7 degrees IMPRESSION: SINUS RHYTHM MINIMAL ST DEPRESSION ??[0.025+ mV ST DEPRESSION] BORDERLINE ECG NO CHANGE FROM PREVIOUS TRACING NOTED Electronically Signed By: Cruz Espinoza MD Ishmael Hawkins MD ECG ORDERABLES Final Result Performing Organization Address [facility] Co de Phone Number [facility] [employer] [facility] documented in this encounter Visit [...] puff 2 puff, inhalation, 2 times daily (respiratory care faculty), First dose on Sun02/20/24 at 0930, Rinse [...] mg 0.5 mg, nebulization, Every 6 hours (respiratory care faculty), First dose on Sun02/20/24 at 0930, Given 02/23/2024 2:49 AM CDT 0.5 mg Given 02/22/2024 8:04 PM CDT 0.5 mg Given 02/22/2024 7:35 AM CDT 0.5 mg ipratropium-albuteroL (DUO-NEB) 0.5-2.5 mg/3 mL nebulizer solution 3 mL 3 mL, nebulization, Every 6 hours PRN (respiratory care faculty), wheezing, shortness of breath, Starting on Sun02/18/24 [...] puff 2 puff, inhalation, 2 times daily (respiratory care faculty), First dose on Sun02/20/24 at 0930, Rinse [...] mg 0.5 mg, nebulization, Every 6 hours (respiratory care faculty), First dose on Sun02/20/24 at 0930, 0152 [...] not available)2003 (Given - Provider: Aydee Beckford, BULLET ASSEMBLY PRESS SETTER OPERATOR) 248 (Given - Provider: Beverly Lares, BULLET ASSEMBLY PRESS SETTER OPERATOR)929 (Not Given - Provider: Lauren Concepcion, LEISA [...] 0900 0852 (Given - Provider: Angelita Arreola, BORIS) 0825 (Given - Provider: Ivania Tee, BORIS) [...] 3 mL, nebulization, Every 6 hours PRN (respiratory care faculty), wheezing, shortness of breath, Starting on Sun02/18/24 [...] documented as of this encounter Care Teams Soaking Pit Operator Relationship Specialty Start Date End Date Lyla Perry MD PCP - General Family Medicine 01/24/18 documented as of this encounter
--- OUTSIDE RECORDS SUMMARY | 2024-11-23 18:13 | XMS_ITS | Encounter Summary ---
Author Organization [facility] Healthcare Address [address] [place] [address] Care Team Providers Care Wash Barrel Leader Name Role Phone Watson Perry MD Primary Care Provider [phone] Encounter Details Date Type Department Care Team (Latest Contact Info) Description 10/22/2024 8:38 AM CLAM DREDGER - 10/22/2024 11:59 PM [facility] Hospital Encounter [address] [address] Right knee pain, unspecified chronicity Discharge Disposition: Discharge to home or self care Social History Tobacco Use Types Packs/Day Years Used Date Smoking Tobacco: Former Cigarettes 1 50 0 05/18/1972 - 05/18/2022 Smokeless Tobacco: Never Alcohol Use Standard Drinks/Week Comments No 0 (1 standard drink = 0.6 oz pur e alcohol) [facility] Utilities Answer Date Recorded In the past 12 months has th Advise Only electric, gas, oil, or water company threatened [...] week 02/20/2024 How often do you attend [facility] or anabaptism services? Never 02/20/2024 Do you belong to any clubs o r organizations such as temple groups, unions, fraternal or athletic groups, or [...] place to sleep or slept in a skilled nursing (including now)? No 02/20/2024 Personal Safety Answer [...] on file Legal Sex Female 1:09 PM CLAM DREDGER Gender Identity Not on file Sexual Orientation [...] Take 1 capsule by mouth daily omega 8-ysb-jko-fish oil 1,000 mg (120 mg-180 mg) capsule [...] Read Routine (OP Routine) 10/22/2024 8:56 AM CLAM DREDGER Right knee pain, unspecified chronicity documented in this encounter Results * XR Knee Right 4 or More Views (10/22/2024 8:56 AM CLAM DREDGER) Anatomical Region Laterality Modality Lower Extremities, Knee Right Digital Radiography 10/22/2024 9:52 AM CLAM DREDGER Impressions 10/22/2024 9:52 AM CLAM DREDGER FINDINGS/IMPRESSION: Moderate to severe right lateral compartment arthrosis. ??No acute fracture. ??There is a small joint effusion. ??Soft tissues are unremarkable. Electronically signed by: Raffi Montes II, D.O. Narrative 10/22/2024 9:52 AM CLAM DREDGER EXAMINATION: XR KNEE RIGHT 4 OR MORE [...] chronicity documented in this encounter Care Teams Wash Barrel Leader Relationship Specialty Start Date End Date Watson Perry MD PCP - General Family Medicine 01/24/18 documented as of this encounter
--- OUTSIDE RECORDS SUMMARY | 2024-11-23 18:14 | XMS_ITS | Encounter Summary ---
Author Organization [facility] Healthcare Address [address] [place] [address] Care Team Providers Care Cellar Hand Name Role Phone Watson Perry MD Primary Care Provider [phone] Encounter Details Date Type Department Care Team (Late st Contact Info) Description 05/30/2023 10:15 AM CDT Lab [address] [address] Social History Tobacco Use Types Packs/Day Years [...] often do you attend chur ch or jain services? 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
--- OUTSIDE RECORDS SUMMARY | 2024-11-23 18:14 | XMS_ITS | Encounter Summary ---
Author Organization [facility] Healthcare Address [address] [place] [address] Care Team Providers Care Tufter Operator Name Role Phone Watson Perry MD Primary Care Provider [phone] Encounter Details Date Type Department Care Team (Late st Contact Info) Description 05/29/2023 Telephone [facility] [address] [place] [address] Fartun Prado, RT Social History Tobacco Use [...] attend chur ch or anabaptist services? Never 03/30/2023 Do you belong to any clubs o r organizations such as mu-ism groups, unions, fraternal or athletic groups, or [...] in a skilled nursing (including now)? No 03/30/2023 Personal Safety Answer Date Recorded Have you ever been in or are you currently in a harmful physical or emotional relationship or is someone making you feel afraid or unsafe? Denies 03/29/2023 Comments Unknown Sex and Gender Information Value Date Recorded Sex Assigned at Not on file Legal Sex Female 1:09 PM INCLUSION SPECIAL EDUCATOR Gender Identity Not on file Sexual Orientation Not on file documented as of this encounter Miscellaneous Notes * Telephone Encounter - Fartun Prado, RT - 05/29/2023 10:19 AM CDT Confirmed appt documented in this encounter Plan of Treatment Not on file documented as of this encounter Visit Diagnoses Not on filedocumented in this encounter Care Teams Tufter Operator Relationship Specialty Start Date End Date Watson Perry MD PCP - General Family Medicine 01/24/18 documented as of this encounter
--- OUTSIDE RECORDS SUMMARY | 2024-11-23 18:14 | XMS_ITS | Encounter Summary ---
Author Organization [facility] Address [address] [place] [address] Care Team Providers Care Sales Exhibitor Name Role Phone Watson Perry MD Primary Care Provider [phone] Reason for Visit * Reason Comments Emphysema Encounter Details Date Type Department Care Team (Late st Contact Info) Description 03/12/2023 10:15 AM CDT Office Visit [facility] Pulmonary at [address] [place] [address] Efren Villanueva MD [address] [place] [address] [address] [place] [address] Centrilobular emphysema (HCC) (Primary Dx); [...] on file Legal Sex Female 1:09 PM GLASS SETTER Gender Identity Not on file Sexual [...] she reported being hospitalized in May2022 at [facility] for a week for Covid-19 pneumonia. Hospitalization [...] daily added in this encounter Care Teams Sales Exhibitor Relationship Specialty Start Date End Date Watson Perry MD PCP - General Family Medicine 01/24/18 documented as of this encounter
--- OUTSIDE RECORDS SUMMARY | 2024-11-23 18:14 | XMS_ITS | Encounter Summary ---
Author Organization [facility] Healthcare Address [address] [place] [address] Care Team Providers Care Marketing Summer Intern Name Role Phone Watson Perry MD Primary Care Provider [phone] Encounter Details Date Type Department Care Team (Late st Contact Info) Description 09/03/2023 Telephone [facility] Pulmonary at [address] [place] [address] Efren Villanueva MD [address] [place] [address] [address] [place] [address] Social History Tobacco Use Types [...] How often do you attend chur or scientologist services? Never 03/30/2023 Do you belong to any clubs o r organizations such as tenriism groups, unions, fraternal or athletic groups, or [...] place to sleep or slept in a long-term (including now)? No 03/30/2023 Personal Safety Answer Date Recorded Have you ever been in or are you currently in a harmful physical or emotional relationship or is someone making you feel afraid or unsafe? Denies 03/29/2023 Comments Unknown Sex and Gender Information Value Date Recorded Sex Assigned at Not on file Legal Sex Female 1:09 PM CASH REGISTER BALANCER Gender Identity Not on file Sexual Orientation [...] on filedocumented in this encounter Care Teams Marketing Summer Intern Relationship Specialty Start Date End Date Watson Perry MD PCP - General Family Medicine 01/24/18 documented as of this encounter
--- OUTSIDE RECORDS SUMMARY | 2024-11-23 18:14 | XMS_ITS | Encounter Summary ---
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
--- OUTSIDE RECORDS SUMMARY | 2024-11-23 18:14 | XMS_ITS | Encounter Summary ---
Author Organization [facility] Healthcare Address [address] [place] [address] Care Team Providers Care Forest Fire Warden Name Role Phone Watson Perry MD Primary Care Provider Encounter Details Date Type Department Care Team (Late st Contact Info) Description 03/15/2018 5:58 AM CDT - 03/15/2018 10:06 AM CDT Hospital Encounter [facility] [address] [place] [address] Lico Wayne, [facility] [place] [address] Lesion of mandible Discharge Disposition: Discharge to [...] on file Legal Sex Female 1:09 PM JAVA DEVELOPER ARCHITECT Gender Identity Not on file Sexual [...] apron or towel on the person's clothes. Hadley the person's teeth: ?? Wet the toothbrush and place a small amount of toothpaste on it. ?? Gently place the brush onto each tooth, and move it in a chitina. Do not press too hard. This mayinjure the gums. ?? Clean the inner, outer, and top surfaces of the person's teeth. Hadley the gums and top of the tongue [...] loosen them. Then pull them out. ?? Hadley the dentures at a sink with clean water and denture blind cleaner or toothpaste. ?? Hadley the dentures on all surfaces with clean, [...] trouble breathing during mouth care. ?? 2016 MeetMe. Information is for End User's use only and may not be sold, redistributed or otherwise used for commercial purposes. All illustrations and images included in CareNotes?? are the copyrighted property of A.D.A.M., Inc. or [employer]. The above information is an educational coordinator only. It is not intended as medical advice for individual conditions or treatments. Talk to your doctor, nurse or pharmacist before following any medical regimen to see if it is safe and effective for you. * Attachments The following attachments cannot be sent through Care Everywhere. * Oxycodone/Acetaminophen (By mouth) (Singaporean) * Cephalexin (By mouth) (Singaporean) * General Anesthesia (Discharge Care) (Singaporean) documented in this encounter Medications at Time [...] was used to retract the tongue. A [employer] retractor was used to retract the buccal [...] of water. ?? Use no make-up, nail upper sorbian, lotions, oils or powders on your skin. [...] AM CDT Narrative 03/19/2018 2:29 PM CDT [facility] Department of Pathology [address] [place] [address] Final Report ?Patient Name: JANETH PARKER Address: [address] [facility] Service: Surgery ??[place], [place] ??[address] Location: [facility] MISHEL Taken: 03/15/2018 Gender: F Received 03/15/2018 : 1950 (Age: 68) Hospital #: [id number] Accessioned: 03/15/2018 ?? Patient Type: AMH SDS [...] by the Surgical Pathology Department at [facility] as part of an ongoing manufacturing quality technician program and in compliance with federally mandated [...] determined by the Surgical Pathology Department [facility]. ??It has not been cleared or approved by the U. S. Food and Drug Administration. Lico Wayne DO LAB PATHOLOGY ORDERABLES Fin al Result * ECG 12 lead (03/15/2018 6:38 AM CDT) Patient age 68 years [facility] Interpretation Text SINUS BRADYCARDIABORDERLINE ECGNO PREVIOUS TRACING [facility] Comment:Physician Interprete r Dr. Bhupendra Lira M.D. Ventricular Rate EKG/Min 59 /min [facility] P Wave Duration 121 ms [facility] QRS-Interval (MSEC) 105 ms [facility] ID-Interval (MSEC) 148 ms [facility] QT Interval 451 ms [facility] QTc 449 ms [facility] QTC Interval ms [facility] P [place] 65 deg [facility] QRS [place] 65 deg [facility] T [place] 68 deg [facility] 03/15/2018 6:38 AM CDT Armida Kang MD ECG ORDERABLES Final Re sult [facility] * SURGICAL PATHOLOGY (03/15/2018 12:00 AM CDT) [...] in this encounter Orders Medications Ordered That Darrno ht Not Have Been Administered Count Last [...] 03/15/2018 documented in this encounter Care Teams Forest Fire Warden Relationship Specialty Start Date End Date Watson Perry MD PCP - General Family Medicine 01/24/18 documented as of this encounter
--- OUTSIDE RECORDS SUMMARY | 2024-11-23 18:14 | XMS_ITS | Encounter Summary ---
Author Organization [facility] Address 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 to drink, blisters, Procedures ESTABLISHED PATIENT Watson Perry MD Phone: tel: fax: Lico Wayne DO [address] [place] [address] Phone: tel: fax: Referral ID Status Reason Start Date Expiration Date Visits Re quested Visits Authorized [id number] Closed 01/24/2018 01/24/2019 12 12 Encounter Details Date Type Department Care Team (Late st Contact Info) Description 06/07/2018 9:10 AM CDT Office Visit [facility] [address] [facility] [address] [place] [id number] Lico Wayne DO [address] [place] [address] Oral lesion (Primary Dx) Social History Tobacco Use Types Packs/Day Years Used Date Smoking Tobacco: Every Day Cigarettes Smokeless Tobacco: Never Alcohol Use Standard Drinks/Week Comments No 0 (1 standard drink = 0.6 oz pur e alcohol) Comments Unknown Sex and Gender Information Value Date Recorded Sex Assigned at Not on file 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
--- OUTSIDE RECORDS SUMMARY | 2024-11-23 18:14 | XMS_ITS | Encounter Summary ---
Author Organization [facility] Healthcare Address [address] [place] [address] Care Team Providers Care Technical Specialist Cytogenetics Name Role Phone Watson Perry MD Primary Care Provider [phone] Encounter Details Date Type Department Care Team (Late st Contact Info) Description 02/20/2024 Telephone [facility] Pulmonary at [address] [place] [address] Nkechi Whitehead LPN Social History Tobacco Use Types Packs/Day Years Used Date Smoking Tobacco: Former Cigarettes 1 50 0 05/18/1972 - 05/18/2022 Smokeless Tobacco: Never Alcohol Use Standard Drinks/Week Comments No 0 (1 standard drink = 0.6 oz pur e alcohol) [facility] Utilities Answer Date Recorded In the past 12 months has [employer], gas, oil, or water [employer]otic threatened to shut off services in your [...] How often do you attend chur or protestant services? 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 He verbalized understanding. documented in this encounter Plan of Treatment Not on file documented as of this encounter Visit Diagnoses Not on filedocumented in this encounter Care Teams Technical Specialist Cytogenetics Relationship Specialty Start Date End Date Watson Perry MD PCP - General Family Medicine 01/24/18 documented as of this encounter
--- OUTSIDE RECORDS SUMMARY | 2024-11-23 18:14 | XMS_ITS | Encounter Summary ---
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 [employer] # given [phone], and [phone]. Instructed pt to let us know if [...] to give her [employer] # to call [phone]. documented in this encounter Plan of Treatment Not on file documented as of this encounter Visit Diagnoses Not on filedocumented in this encounter Care Teams Helper Electrical Relationship Specialty Start Date End Date Watson Perry MD PCP - General Family Medicine 01/24/18 documented as of this encounter
--- OUTSIDE RECORDS SUMMARY | 2024-11-23 18:14 | XMS_ITS | Encounter Summary ---
Author Organization [facility] Address [address] [place] [address] Care Team Providers Care Prosthetist Name Role Phone Watson Perry MD Primary Care Provider [phone] Reason for Referral * MRI/CAT/PET Scan (Routine) - Closed Specialty Diagnoses / Procedures Referred By Contac t Referred To Contact Radiology Diagnoses Lymphadenopathy Procedures CT chest with contrast Efren Villanueva MD [address] [place] [address] [address] [place] [address] Phone: tel: fax: [address] [phone] Referral ID Status Reason Start Date Expiration Date Visits Re quested Visits Authorized [id number] Closed 05/11/2023 11/07/2023 1 1 Reason for Visit * Reason Comments Hop F/U Pneumonia Encounter Details Date Type Department Care Team (Late st Contact Info) Description 05/07/2023 1:30 PM CDT Office Visit [facility] Pulmonary at [address] [place] [address] Efren Villanueva MD [address] [place] [address] [address] [place] [address] Centrilobular emphysema (HCC) (Primary Dx); [...] often do you attend chur ch or hoahaoism services? Never 03/30/2023 Do you belong to [...] slept in a fci (including now)? No 03/30/2023 Personal Safety Answer Date Recorded Have you ever been in or are you currently in a harmful physical or emotional relationship or is someone making you feel afraid or unsafe? 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 for a week for Covid-19 [...] PM T: ??06/01/2023 12:31 PM Report ID: [id number] Reading Location: ??[id number] Procedure Note Ish Jacob MD - 06/01/2023 [...] posterior segment of the right upper lobe, [id number] mm. This nodule has slightly increased in [...] Electronically signed by Ish Diaz M.D. RL: [id number] Report ID: [id number] Reading Location: [place] [address] Efren Villanueva MD IMG CT PROCEDURES Final Result documented in this encounter Visit Diagnoses Diagnosis Centrilobular emphysema (HCC)- Primary Chronic respiratory failure with hypoxia and hypercapnia (CMS/HCC) (HCC) Cigarette nicotine dependence in remission Lymphadenopathy Enlargement of lymph nodes Lymphadenopathy Enlargement of lymph nodes documented in this encounter Care Teams Prosthetist Relationship Specialty Start Date End Date Watson Perry MD PCP - General Family Medicine 01/24/18 documented as of this encounter
--- OUTSIDE RECORDS SUMMARY | 2024-11-23 18:14 | XMS_ITS | Encounter Summary ---
Author Organization [facility] Address [address] [place] [address] Care Team Providers Care Processing Manager Name Role Phone Watson Perry MD Primary Care Provider [phone] Reason for Visit * Reason Comments growth oral cavity Encounter Details Date Type Department Care Team (Late st Contact Info) Description 02/01/2018 1:00 PM CDT Office Visit [facility] [address] [place] [address] [address], [place] [address] Lico Wayne, [facility] [place] [address] Torus mandibularis (Primary Dx) Social History Tobacco Use Types Packs/Day Years Used Date Smoking Tobacco: Every Day Cigarettes Smokeless Tobacco: Never Alcohol Use Standard Drinks/Week Comments No 0 (1 standard drink = 0.6 oz pur e alcohol) Comments Unknown Sex and Gender Information Value Date Recorded Sex Assigned at Not on file 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
--- OUTSIDE RECORDS SUMMARY | 2024-11-23 18:14 | XMS_ITS | Encounter Summary ---
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
--- OUTSIDE RECORDS SUMMARY | 2024-11-23 18:14 | XMS_ITS | Encounter Summary ---
Author Organization [facility] Address [address] [place] [address] Care Team Providers Care Neonatologist Name Role Phone Watson Perry MD Primary Care Provider [phone] Reason for Referral * Procedure (Routine) - Closed Specialty Diagnoses / Procedures Referred By Contac t Referred To Contact Diagnoses Centrilobular emphysema (HCC) Procedures Pulmonary Function Test -[facility]; Complete PFT with 6 Minute Walk Efren Villanueva MD Phone: tel: fax: Referral ID Status Reason Start Date Expiration Date Visits Re quested Visits Authorized [id number] Closed 09/14/2022 10/14/2023 1 1 COMPOSITOR Reason for Visit * Procedure (Routine) - Closed Specialty Diagnoses / Procedures Referred By Contac t Referred To Contact Diagnoses Centrilobular emphysema (HCC) Procedures Pulmonary Function Test -[facility]; Complete PFT with 6 Minute Walk Efren Villanueva MD Phone: tel: fax: Referral ID Status Reason Start Date Expiration Date Visits Re quested Visits Authorized [id number] Closed 09/14/2022 10/14/2023 1 1 Encounter Details Date Type Department Care Team (Latest Contact Info) Description 10/03/2022 6:57 AM AD COMPOSITOR - 10/03/2022 11:59 PM AD COMPOSITOR Hospital Encounter [facility] Res[facility] [address] [place] [id number] Centrilobular emphysema (CMS/HCC) (HCC) Discharge Disposition: Discharge [...] on file Legal Sex Female 1:09 PM AD COMPOSITOR Gender Identity Not on file Sexual Orientation [...] quickly, but recovered wellwith 2L of oxygen. COMPOSITOR documented in this encounter Plan of Treatment Not on file documented as of this encounter Procedures Procedure Name Priority Date/Time Associated Diagnosis Comments PULMONARY FUNCTION TEST (PFT) Routine 10/03/2022 8:59 AM AD COMPOSITOR Centrilobular emphysema (CMS/HCC) (HCC) documented in this encounter Results * Pulmonary Function Test -[facility]; Complete PFT with 6 Minute Walk (10/03/2022 8:59 AM AD COMPOSITOR) Anatomical Region Laterality Modality PFT Impressions 10/12/2022 4:29 PM AD COMPOSITOR 1. Moderate obstruction with severe air trapping 2. Mildly decreased uncorrected DLCO 3. Patient required 2 L oxygen with ambulation during walk test Electronically signed by Max Thomas MD Narrative 10/12/2022 4:29 PM AD COMPOSITOR INTERPRETATION Please see technologist's comments mentioned in [...] (HCC) documented in this encounter Care Teams Neonatologist Relationship Specialty Start Date End Date Watson Perry MD PCP - General Family Medicine 01/24/18 documented as of this encounter
--- OUTSIDE RECORDS SUMMARY | 2024-11-23 18:14 | XMS_ITS | Encounter Summary ---
Author Organization Formerly [facility] Address [address] [place] [address] Care Team Providers Care Weighbridge Operator Name Role Phone Watson Perry MD Primary Care Provider [phone] Reason for Visit * Reason Comments Shortness of Breath * Auth/Cert Specialty Diagnoses / Procedures Referred By Contac t Referred To Contact Diagnoses COPD exacerbation (HCC) Procedures NA Referral ID Status Reason Start Date Expiration Date Visits Re quested Visits Authorized [id number] 1 1 Encounter Details Date Type Department Care Team (Latest Contact Info) Description 03/29/2023 1:04 PM CDT - 04/01/2023 12:00 PM CDT Hospital Encounter [facility] Surgery Care [address] [place] [address] Tripp Hernandez MD 1 [facility] [place] [address] Shane Patel MD [address] [place] [address] [place] [address] Beverly Medina MD [address] [place] [address] [place] [address] COPD exacerbation (HCC) (Primary Dx); Multifocal pneumonia; [...] place to sleep or slept in a fdc (including now)? No 03/30/2023 Personal Safety Answer Date Recorded Have you ever been in or are you currently in a harmful physical or emotional relationship or is someone making you feel afraid or unsafe? 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 Gender Identity Not on file Sexual [...] Patient Age - 73 yrs Patient - [id number] [facility] - [id number] Document Creation Date: 04/01/2023 Admitting Provider, : Shane Patel MD Discharge Provider, : Beverly Medina MD Primary Care Physician at Discharge: Watson Perry MD [phone] Admission Date: 03/29/2023 Discharge Date/time: 04/01/2023 Admission Location: [facility] LOS - LOS: 3 days DETAILS OF [...] Last Dose Given Next Dose Due omega 4-fhw-sbg-fish oil 1,000 mg (120 mg-180 mg) capsule [...] Trelegy Ellipta 200-62.5-25 mcg inhaler Generic drug: sxteqvkjove-ofuqmehgz-nomiwqwc 1 puff, inhalation, Daily STOP taking these medications cephalexin 500 mg capsule Commonly known as: Keflex Where to Get Your Medications These medications were sent to [facility] [address] [place] [address] erythromycin ophthalmic ointment levoFLOXacin 750 mg tablet predniSONE 20 mg tablet Information about where to get these medications is not yet available Ask your nurse or doctor about these medications omega 2-lxq-wpe-fish oil 1,000 mg (120 mg-180 mg) capsule [...] PULM [facility] Specialty 12/12/2023 9:[address] [facility] CT [facility] Main Contact Information for Follow-ups Watson Perry MD Specialty: Family Medicine [address] [place] [address] Next Steps: Follow up Instructions: Call to schedule an appt in 1-2 weeks Questions: Instructions for follow-up (appointment date and time): Call to schedule an appt in 1-2 weeks To provider: WATSON PERRY Please schedule an appointment with the following provider(s): Watson Perry MD [address] [place] [address] Call to schedule an appt in 1-2 weeks ANCILLARY INFORMATION Other Procedures & Diagnostic Tests: Transthoracic Echo (TTE) Complete W Doppler/CF Result Date: 03/30/2023 [place] [address] Echocardiogram Report Patient Name: JANETH LAKE M : 1950 Study Date: 03/30/2023 7:29:43 AM Gender: F Tech: VAN Location: [id number] Ref.Provider: MARLENY BLOCK ight(Cm): 168 BSA: 1.9 [...] Carlyle Conway M.D. RW: RENEE Report ID: [id number] Reading Location: [id number] XR Chest 1 Vw Portable Result Date: [...] Esau Patel D.O. PS: PS Report ID: [id number] Reading Location: [place] [address] ECG 12 lead Result Date: 03/29/2023 Vent Rate: 66 bpm RR Interval: 909 msec SD Interval: 147 msec QRS Duration: 85 msec QT Interval: 398 msec QTC Interval: 411 msec P-R-T Redding: 53 - 48 - 47 degrees SINUS [...] 8 CREATININE mg/dL 0.62 0.63 0.59* 0.62 AIL-RXJ-EYWJYDP mL/min/1.73 m2 95 95 96 95 GLUCOSE [...] encounter Discharge Instructions * Discharge Instructions* Ria Ferrell RN - 04/01/2023 7:34 AM CDT THANK YOU for choosing our team to provide your health care. Your HEALTH AND SAFETY are important to us. We hope you feel your care on SCU was ALWAYS EXCELLENT! Please call SCU at [phone] if you have any questions regarding your care. Wishing you continued improvement during your recovery. Your Surgical Care Unit Team Grace Bruce Dana, Denise, Nancy, Peggy, Nu Burnette Stacy, Debbie, Sheila, Lamika, Judy, Lindsey, Suzie, Doris Glez Rochelle, Simona, Cathy, Bonnie, Javon, Angie, Melanie. * Attachments The following attachments cannot be sent through Care Everywhere. * Pneumonia (General Information) (Bangladeshi) * COPD (Chronic Obstructive Pulmonary Disease) (General Information) (Bangladeshi) documented in this encounter Medications at Time [...] Take 1 capsule by mouth daily omega 3-ayk-ldl-fish oil 1,000 mg (120 mg-180 mg) capsule [...] Last Filled Start Date End Date omega 6-woc-riw-fish oil 1,000 mg (120 mg-180 mg) capsule [...] documented in this encounter Progress Notes * Beverly Medina MD - 03/31/2023 2:17 PM CDT [facility] Hospitalist Service Progress Note Patient Name: Janeth Lake Patient : 1950 Age/Sex: 73 y.o. female Room/Bed: [id number]/[id number] Admission Date/Time: 03/29/2023 1:04 PM Date: 03/31/2023 [...] Complete W Doppler/CF Result Date: 03/30/2023 Narrative: [address] [place] [address] Echocardiogram Report Patient Name: JANETH LAKE M : 1950 Study Date: 03/30/2023 7:29:43 AM Gender: F Tech: Location: [id number] Ref.Provider: MARLENY BLOCK Height(Cm): 168 BSA: 1.9 [...] Carlyle Conway M.D. RW: RENEE Report ID: [id number] [place] Location: [id number] XR Chest 1 Vw Portable Result Date: [...] Esau Patel D.O. PS: PS Report ID: [id number] Reading Location: [id number] ECG 12 lead Result Date: 03/29/2023 Narrative: Vent Rate: 66 bpm RR Interval: 909 msec SD Interval: 147 msec QRS Duration: 85 msec QT Interval: 398 msec QTC Interval: 411 msec P-R-T Redding: 53 - 48 - 47 degrees SINUS [...] Beverly Jacob MD Internal Medicine - Hospitalist [facility] - Adult Hospitalist Service 03/31/2023 2:17 PM * Ahsan Conway [facility] - 03/30/2023 6:08 AM CDT Pharmacokinetic Consult - Vancomycin Dosing-Completed Vancomycin discontinued 03/30 by . Vanco levels have been discontinued. Pharmacy monitoring is complete. Thank you, Ahsan Conway [facility] Pharmacy department [phone] * Arianne Daniel RP - 03/29/2023 5:57 [...] PLATELETS K/cumm 386 Thank you, Arianne Daniel [facility] Pharmacy department [phone] documented in this encounter H&P Notes * [...] 1 capsule by mouth daily 03/29/2023 omega 7-ted-hht-fish oil 1,000 mg (120 mg-180 mg) capsule [...] mg/mL (33.3 mg/mL as elemental magnesium) oral [id number] mL 30 mL oral Daily PRN Marleny [...] Carlyle Conway M.D. RW: RENEE Report ID: [id number] Reading Location: [id number] XR Chest 1 Vw Portable Result Date: [...] Esau Patel D.O. PS: PS Report ID: [id number] Reading Location: [place] [address] ECG 12 lead Result Date: 03/29/2023 Narrative: Vent Rate: 66 bpm RR Interval: 909 msec SD Interval: 147 msec QRS Duration: 85 msec QT Interval: 398 msec QTC Interval: 411 msec P-R-T Redding: 53 - 48 - 47 degrees SINUS [...] any separately reportable services. Voice recognition software Blossom Direct was used dictate and transcribe this document. End Trimmer variances may occur. Despite proofreading, typographical errors [...] discharged with patient. [facility]. Nurse assisted patient into [...] (Reviewed) By: Tripp Hernandez MD Time: 03/29 8853 Comment: CT PE reviewed, no signs of [...] Coverage: Aet Medicare Prescription Coverage: yes Pharmacy: [facility] [address] [place] [address] Primary Care Provider: Watson Perry MD Prior to Admission: Primary Caregiver: Self Who does the patient or legal guardian want to receive education instruction and discharge plans for after care assistance?: Name Caregiver Name: [place] Relationship to patient: spouse Caregiver Contact Information: [phone] Support System: Spouse/Significant Other Home Care Services: No Durable Medical Equipment: Oxygen, Cane (single prong), Walker (wheeled), Home Modification Assessment (railes in bathroom) (Wears O2 at 3 lpm and gets supplies thru [facility].) Oxygen Detail: wears O2 at 3 lpm [...] a week How often do you attend tenriism or denominational services?: Never Do you belong to any clubs or organizations such as tenriism groups, unions, fraternal [...] PINKY PACHECO ([place]) Comment:Testing performed by : [facility], [address] [place]., [address] Report Final Report: Growth indicates upper respiratory danya. PINKY PACHECO ([place]) Comment:Testing performed by : [facility], [address] [place]., [address] Organism GROWTH INDICATES UPPER RESPIRATORY DANYA. [facility] PACHECO ([place]) Sputum (Sputum) 04/01/2023 6 :35 AM CDT 04/01/2023 10:27 AM CDT Narrative PINKY PACHECO ([place]) - 04/04/2023 12:34 PM CDT Testing performed by [facility] Microbiology Laboratory ([phone]) Specimens submitted from normally sterile body sites [...] DHARMESH Final Result PINKY PACHECO ([place]) 1 [facility] Department of Laboratories [place], [place] [id number] * Mycobacteriology (AFB) culture and acid-fast stain Sputum Sputum (Cytology) (04/01/2023 6:35 AM CDT) Direct Specimen Exam Stain: No Acid-fast bacilli seen PINKY PACHECO ([place]) Comment:Testing performed by : [facility], [address] [place]., [address] Report Final Report: No growth of acid-fast bacilli PINKY PACHECO ([place]) Comment:Testing performed by : [facility], [address] [place]., [address] Sputum (Sputum) 04/01/2023 6 :35 AM CDT 04/01/2023 10:27 AM CDT Narrative ROSALINDLUZ ELENA TARA ([place]) - 05/28/2023 8:41 AM CDT Testing performed by [facility] Microbiology Laboratory ([phone]). us Efren Villanueva MD LAB MICROBIOLOGY - GENERAL ORDER DHARMESH Final Result PINKY PACHECO ([place]) 1 [facility] Department [place] [address] * eGFR (04/01/2023 3:31 AM CDT) eGFR [...] 04/01/2023 3:48 AM CDT us Fartun Hobson SENIOR INTERACTION DESIGNER LAB BLOOD ORDERABLES Final R esult [facility] ([place]) 1 [facility] Department [place] [address] * Differential, auto (04/01/2023 3:31 AM CDT) [...] CDT 04/01/2023 3:48 AM CDT Fartun Hobson SENIOR INTERACTION DESIGNER LAB BLOOD ORDERABLES Final R esult [facility] ([place]) 1 [facility] [place] [address] * Phosphorus (04/01/2023 3:31 AM CDT) Phosphorus, pl 3.9 2.3 - 4.5 mg/dL [facility] ([place]) Blood 04/01/2023 3:31 AM CDT 04/01/2023 3:48 AM CDT Fartun Hobson SENIOR INTERACTION DESIGNER LAB BLOOD ORDERABLES Final R esult [facility] 1 [facility] [place] [address] * Magnesium (04/01/2023 3:31 AM CDT) Magnesium 2.2 1.4 - 2.5 mg/dL [facility] ([place]) Blood 04/01/2023 3:31 AM CDT 04/01/2023 3:48 AM CDT Fartun Hobson SENIOR INTERACTION DESIGNER LAB BLOOD ORDERABLES Final R esult Performing Organization Address City/[facility]/ZIP Co de Phone Number PINKY PACHECO ([place]) 1 [facility] [place] [address] * (ABNORMAL) Basic metabolic panel (04/01/2023 3:31 [...] CDT 04/01/2023 3:48 AM CDT Fartun Hobson SENIOR INTERACTION DESIGNER LAB BLOOD ORDERABLES Final R esult PINKY PACHECO ([place]) 1 [facility] [place] [address] * (ABNORMAL) CBC with auto differential (04/01/2023 [...] 0.00 0.00 - 0.01 K/cumm [facility] ([place]) Blood 04/01/2023 3:31 AM CDT 04/01/2023 3:48 AM CDT us Fartun Hobson SENIOR INTERACTION DESIGNER LAB BLOOD ORDERABLES Final R esult [facility] ([place]) 1 [facility] Department [place] [address] * eGFR (03/31/2023 2:22 AM CDT) Pathologist [facility] eGFR 95 mL/min/1. 73 m2 [facility] [...] 03/31/2023 3:33 AM CDT us Fartun Hobson SENIOR INTERACTION DESIGNER LAB BLOOD ORDERABLES Final R esult P[facility] ([place]) 1 [facility] Department [place] [address] * Differential, auto (03/31/2023 2:22 AM CDT) [...] 03/31/2023 3:30 AM CDT us Fartun Hobson SENIOR INTERACTION DESIGNER LAB BLOOD ORDERABLES Final R esult PINKY TARA ([place]) 1 [facility] Department [place] [address] * Phosphorus (03/31/2023 2:22 AM CDT) Phosphorus, pl 2.8 2.3 - 4.5 mg/dL [facility] ([place]) Blood 03/31/2023 2:22 AM CDT 03/31/2023 3:33 AM CDT Fartun Hobson SENIOR INTERACTION DESIGNER LAB BLOOD ORDERABLES Final R esult PINK[facility]HE[facility] ([place]) 1 [place] [address] * Magnesium (03/31/2023 2:22 AM CDT) Magnesium 2.0 1.4 - 2.5 mg/dL [facility] ([place]) Blood 03/31/2023 2:22 AM CDT 03/31/2023 3:33 AM CDT Fartun Hobson SENIOR INTERACTION DESIGNER LAB BLOOD ORDERABLES Final R esult Performing Organization Address City/[facility] Co de Phone Number PINKY PACHECO ([place]) 1 [facility] [place] [address] * (ABNORMAL) Basic metabolic panel (03/31/2023 2:22 [...] ([place]) BUN 11 8 - 25 mg/dL [facility]) Creatinine 0.63 0.60 - 1.10 [...] 03/31/2023 3:33 AM CDT us Fartun Hobson SENIOR INTERACTION DESIGNER LAB BLOOD ORDERABLES Final R esult [facility] ([place]) 1 [facility] Department [place] [address] * (ABNORMAL) CBC with auto differential (03/31/2023 [...] 03/31/2023 3:30 AM CDT us Fartun Hobson SENIOR INTERACTION DESIGNER LAB BLOOD ORDERABLES Final R esult Performing Organization Address City/[facility]/ZIP Co de Phone Number PINKY PACHECO ([place]) 1 [facility] [place] [address] * Mycobacteriology (AFB) culture and acid-fast stain Sputum Sputum (Cytology) (03/30/2023 11:03 PM CDT) Direct Specimen Exam Stain: No Acid-fast bacilli seen PINKY PACHECO ([place]) Comment:Testing performed by : [facility], [address] [place] [address]., [address] Report Final Report: No growth of acid-fast bacilli PINKY PACHECO ([place]) Comment:Testing performed by : [facility], [address] [place] [address], [address] Sputum (Sputum) 03/30/2023 1 1:03 PM CDT 03/31/2023 8:14 AM CDT Narrative [facility]INKY PACHECO ([place]) - 05/28/2023 8:41 AM CDT Testing performed by [facility] Microbiology Laboratory ([phone]). us Efren Villanueva MD LAB MICROBIOLOGY - GENERAL ORDER DHARMESH Final Result Performing Organization Address City/[facility] Co de Phone Number PINKY PACHECO ([place]) 1 [facility] [place] [address] * Aerobic culture and gram stain Sputum Sputum (Cytology) (03/30/2023 11:03 PM CDT) Direct Specimen Exam Stain: Abundant squamous epithelial cells seen indicating excessive oropharyngeal contamination. ??Culture will not be processed further. ??Please submit another specimen. Smear results called to and read back by: Winnie Pcaheco RN [phone] on 03/31/2023 09:35:20 by: Rizwana PACHECO ([place]) Comment:Testing performed by : [facility], [address] [place]., [address] Report Final Report: This is the final report. PINKY PACHECO ([place]) Comment:Testing performed by : [facility], [address] [place]., [address] Sputum (Sputum) 03/30/2023 1 1:03 PM CDT 03/31/2023 8:14 AM CDT Narrative PINKY PACHECO ([place]) - 04/01/2023 8:39 AM CDT Testing performed by [facility] Microbiology Laboratory ([phone]) Specimens submitted from normally sterile body sites [...] DHARMESH Final Result PINK[facility] PACHECO ([place]) 1 [facility] Department [place] [address] * Respiratory pathogen panel Nasopharyngeal (03/30/2023 4:25 PM CDT) Influenza A RNA Not Detected Not Detected PINKY PACHECO ([place]) Comment:Testing performed by : [facility], [address] [place] [address], [place]., [address] Influenza B RNA Not Detected Not Detected PINKY PACHECO ([place]) Comment:Testing performed by : [facility], [address] [place] [address]., [address] RSV RNA Not Detected Not Detected PINKY PACHECO ([place]) Comment:Testing performed by : [address] [address] COVID-19 RNA Not Detected Not Detected PINK[facility] PAC[facility]CO ([place]) Comment:Testing performed by : [address] [place]., [address] Coronavirus 229E RNA Not Detected Not Detected PINK[facility] PACHECO ([place]) Comment:Testing performed by : [facility], [address] [place] [address]., [address] Coronavirus HKU1 RNA Not Detected Not Detected [facility] ([place]) Comment:Testing performed by : [facility], [address] [place] [address]., [address] Coronavirus NL63 RNA Not Detected Not Detected [facility] ([place]) Comment:Testing performed by : [facility], [address] [place] [address]., [address] Coronavirus OC43 RNA Not Detected Not Detected [facility] ([place]) Comment:Testing performed by : [facility], [address] [place] [address]., [address] Adenovirus DNA Not Detected Not Detected [facility] ([place]) Comment:Testing performed by : [facility], [address] [place] [address], [address] Metapneumovirus RNA Not Detected Not Detected [facility] ([place]) Comment:Testing performed by : [facility], [address] [place] [address], [address] Rhinovirus/Enterov irus RNA Not Detected Not Detected [facility] ([place]) Comment:Testing performed by : [facility], [address] [place] [address]., [address] Parainfluenza 1 RNA Not Detected Not Detected [facility] ([place]) Comment:Testing performed by : [facility], [address] [place] [address]., [address] Parainfluenza 2 RNA Not Detected Not Detected [facility] ([place]) Comment:Testing performed by : [facility], [address] [place] [address], [address] Parainfluenza 3 RNA Not Detected Not Detected [facility] ([place]) Comment:Testing performed by : [facility], [address] [place] [address]., [address] Parainfluenza 4 RNA Not Detected Not Detected [facility] ([place]) Comment:Testing performed by : [facility], [address] [place] [address], [address] B. pertussis DNA Not Detected Not Detected [facility] ([place]) Comment:Testing performed by : [facility], [address] [place] [address], [address] B. parapertussis DNA Not Detected Not Detected [facility] ([place]) Comment:Testing performed by : [facility], [address] [place] [address]., [address] C. pneumoniae DNA Not Detected Not Detected PINKY PACHECO ([place]) Comment:Testing performed by : [facility], [address] [place] [address], [place]., [address] M. pneumoniae DNA Not Detected Not Detected PINKY PACHECO ([place]) Comment: Interpretive Data The [employer] FilmArray Respiratory Panel (RP2.1) assay is a [...] assay has FDA clearance for testing of SENIOR INTERACTION DESIGNER swabs. ??The performance characteristics of this assay have been determined by [facility]. Current interpretive data was last revised on 2021. Testing performed by: [facility], [address] [place] [address], [place]., [address] Nasopharyngeal 03/30/2023 4: 25 PM CDT 03/30/2023 7:27 PM CDT Narrative PINKY PACHECO ([place]) - 03/30/2023 8:47 PM CDT Is the Patient experiencing symptoms consistent with COVID?->Unknown Reason for testing?->Symptomatic Surveillance testing for transplant patient?->No us Fartun Hobson SENIOR INTERACTION DESIGNER LAB MICROBIOLOGY - GENERAL O RDERABLES Final Result [facility]Y TARA ([place]) [address] [place] [address] Department of Laboratories [place], [place] [id number] * TRANSTHORACIC ECHO (TTE) COMPLETE W DOPPLER/CF W CONTRAST (03/30/2023 8:10 AM CDT) Anatomical Region Laterality Modality Ultrasound 03/30/2023 7:29 AM CDT Narrative 03/30/2023 8:40 AM CDT [address] [address] Echocardiogram Report Patient Name: JANETH LAKE M : 1950 Study Date: 03/30/2023 7:29:43 AM Gender: F Tech: Location: [id number] Ref.Provider: MARLENY BLOCK Height(Cm): 168 BSA: 1.9 [...] Procedure Note Cruz Espinoza MD - 03/30/[address] [address] Echocardiogram Report Patient Name: JANETH LAKE MPatient ID: [id number] : [id number] Date: 03/30/2023 7:29:43 AM Gender: FAccession #: [id number] Tech: JCLocation: [id number] Ref.Provider: Niki BLOCKt(Cm): 168 BSA: 1.9Weight(Kg): 77.1 [...] - 100 ] msec MVA5.00 MV Decel Aqfk453 [ 104 - 258 ] msec PV Peak Vel0.75 [ 0.40 - 0.80 ] m/s TR Peak Vel2.83 [ 1.00 - 2.80 ] m/s TR Peak PG 32mmHg RVSP40.00 [ 10.00 - 36.00 ] mmHg E`0.08 cm/sec E/E`7.28 [ <= 10.00 ] PA Zuoqatvn19.00 [ 10.00 - 36.00 ] mmHg Findings: [...] BLOOD ORDERABLES Fin al Result PINKY PACHECO ([place]) 1 [facility] Department [place] [address] * Differential, auto (03/30/2023 5:23 AM CDT) Neutrophil abs 4.9 1.7 - 6.5 K/cumm [facility] ([place]) Imm gran abs 0.0 0.0 - 0.1 K/cumm [facility] ([place]) Lymphocyte abs 2.7 0.8 - 3.3 K/cumm [facility] ([place]) Monocyte abs 0.3 0.2 - 0.8 K/cumm [facility] ([place]) Eosinophil abs 0.0 0.0 - 0.5 K/cumm [facility] ([place]) Basophil abs 0.0 0.0 - 0.1 K/cumm [facility] ([place]) Neutrophil pct 61.4 % [facility] ([place]) Comment: Interpretive Data Percent cell count reference ranges are not reported, since discordance with absolute values may lead to misinterpretation of CBC data. Current Interpretive Data was last revised on 2018. Imm gran pct 0.3 % [facility] ([place]) Comment: Interpretive Data Percent cell count reference [...] 2018. Monocyte pct 4.0 % [facility] ([place]) Comment: Interpretive Data Percent cell count reference ranges are not reported, since discordance with absolute values may lead to misinterpretation of CBC data. Current Interpretive Data was last revised on 2018. Eosinophil pct 0.4 % [facility] ([place]) Comment: Interpretive Data Percent cell count reference [...] Fin al Result PINKY PACHECO ([place]) 1 [facility] [place] [address] * Phosphorus (03/30/2023 5:23 AM CDT) Phosphorus, pl 3.2 2.3 - 4.5 mg/dL [facility] ([place]) Blood 03/30/2023 5:23 AM CDT 03/30/2023 6:34 AM CDT Marleny Block MD LAB BLOOD ORDERABLES Fin al Result [facility] ([place]) 1 [facility] [place] [address] * Magnesium (03/30/2023 5:23 AM CDT) Magnesium 2.2 1.4 - 2.5 mg/dL ROSALINDLUZ ELENA PACHECO ([place]) Blood 03/30/2023 5:23 AM CDT 03/30/2023 6:34 AM CDT Marleny Block MD LAB BLOOD ORDERABLES Fin al Result [facility] ([place]) 1 [facility] [place] [address] * (ABNORMAL) CBC with auto differential (03/30/2023 [...] MD LAB BLOOD ORDERABLES Fin al Result [facility] 1 [facility] Department [place] [address] * (ABNORMAL) Basic metabolic panel (03/30/2023 5:23 AM CDT) Sodium 136 135 - 145 mmol/L [facility] ([place]) Potassium, pl 4.1 3.3 - 4.9 mmol/L [facility] ([place]) Chloride 94(L) 97 - 110 mmol/L [facility] ([place]) CO2 35(H) 22 - 32 mmol/L [facility] ([place]) Anion gap 8 2 - 15 mmol/L [facility]) BUN 11 8 - 25 mg/dL [facility] ([place]) Creatinine 0.59(L) 0.60 - 1.10 [...] Calcium 9.5 8.5 - 10.3 mg/dL [facility] ([place]) Blood 03/30/2023 5:23 AM CDT 03/30/2023 6:34 AM CDT Marleny Block MD LAB BLOOD ORDERABLES Fin al Result P[facility] ([place]) 1 [facility] Department [place] [address] * (ABNORMAL) Pro B-type natriuretic peptide (03/30/2023 [...] BLOOD ORDERABLES Fin al Result [facility] (MOSCA) 1 [facility] Department [place] [address] * MRSA Only (Staphylococcs aureus) PCR Nasal (03/29/2023 11:05 PM CDT) PCR Scrn, Methicillin resistant Staphylococcus aureus (MRSA) Not Detected Not Detected PINKY PAC[facility]CO (LUZ) Comment: Testing performed using Nucleic Acid Amplification with the CepMoogi Xpert MRSA Assay. This assay detects DNA from SCCmec strains of Staphylococcus aureus using Real- Time PCR and has been cleared by the FDA. Performance characteristics have been verified by the [facility]. Nasal 03/29/2023 11:0 5 PM CDT 03/29/2023 11:37 PM CDT Marleny Block MD LAB MICROBIOLOGY - GENER AL ORDERABLES Final Result PINKY [facility]CO (LUZ) 1 [facility] Department [place] [address] * Blood culture Blood Antecubital, right (03/29/2023 9:56 PM CDT) Report Final Report: No growth [facility]Y [facility] (LUZ) Comment:Testing performed by : [facility], [address] [place]., [address] Blood (Antecubital, right) 03/29/2023 9:56 PM CDT [...] performance characteristics have been verified by the [facility] Microbiology Laboratory. 5. ?For questions about this culture, contact the Microbiology Laboratory at [phone]. Interpretive data was last revised on 2020. Tripp Hernandez MD LAB MICROBIOLOGY - GENERAL ORDER DHARMESH Final Result Performing Organization Address City/[facility]/ZIP Co de Phone Number PINKY [facility] (MOSCA) 1 [facility] [place] [address] * Troponin T high-sensitivity 6-hour (03/29/2023 9:56 PM CDT) Trop T hs 8 <=14 ng/L PINKY [facility] (MOSCA) Comment: Interpretive Data For further hscTnT resources including the diagnostic algorithm and an aid in interpretation, copy and paste this link: https://nrl.testcatalog.org/show/hsTrop Current Interpretive Data last revised 2020. Trop T hs delta See Comment ng/L CE NADER PACHECO (MOSCA) Comment:Inappropriate collec tion time to report a delta. Trop T hs pct delta See Comment % PINKY [facility] (LUZ) Comment:Inappropriate collec tion time to report a delta. Trop T hs interp See Comment C THOMAS [facility] (MOSCA) Comment:Inappropriate collec tion time to report a delta. Blood 03/29/2023 9:56 PM CDT 03/29/2023 10:05 PM CDT Tripp Hernandez MD LAB BLOOD ORDERABLES Final Resul t Performing Organization Address City/[facility]/ZIP Co de Phone Number PINKY [facility] (MOSCA) 1 [facility] [place] [address] * Procalcitonin (03/29/2023 6:23 PM CDT) Pathologist [facility] Procalcitonin 0.07 0.02 - 0.80 ng/mL PINKY [facility] (LUZ) Comment:Testing performed by : [facility], [facility] [place]., [address] Blood 03/29/2023 6:23 PM CDT 03/30/2023 10:32 AM CDT Tripp Hernandez MD LAB BLOOD ORDERABLES Final Resul t [facility] (MOSCA) 1 [facility] [place] [address] * MRSA Only (Staphylococcs aureus) PCR Nasal (03/29/2023 6:19 PM CDT) [facility] PCR Scrn, Methicillin resistant Staphylococcus aureus (MRSA) Not Detected Not Detected PINKY PACHECO (LUZ) Comment: Testing performed using Nucleic Acid Amplification with the Hitwise Xpert MRSA Assay. This assay detects DNA from SCCmec strains of Staphylococcus aureus using Real- Time PCR and has been cleared by the FDA. Performance characteristics have been verified by the [facility]. Nasal 03/29/2023 6:19 PM CDT 03/29/2023 6:48 PM CDT Narrative [facility] (LUZ) - 03/29/2023 8:02 PM CDT Per pharmacy protocol-vancomycin Tripp Hernandez MD LAB MICROBIOLOGY - GENERAL ORDER DHARMESH Final Result [facility] (MOSCA) 1 [facility] [place] [address] * Sepsis Lactate w/ Reflex (03/29/2023 6:19 PM CDT) [facility] Sepsis Lactate 1.0 0.7 - 2.0 mmol/L [facility] (LUZ) Blood 03/29/2023 6:19 PM CDT 03/29/2023 6:59 PM CDT us Tripp Hernandez MD LAB BLOOD ORDERABLES Final Resul t [facility] (LUZ) 1 [facility] Department [place] [address] * Blood culture Blood (03/29/2023 6:19 PM CDT) Report Final Report: No growth [facility] (LUZ) Comment:Testing performed by : [facility], [address] [place]., [address] Blood 03/29/2023 6:19 PM CDT 03/29/2023 10:42 [...] organism identification may be performed using the AccuSiliconigene Gram-Positive Blood Culture Assay. This assay detects microbial DNA in positive blood culture broth via hybridization of target DNA to capture oligonucleotides on a microarray. This assay has been cleared by the [place] Food and Drug Administration and its performance characteristics have been verified by the [facility] Microbiology Laboratory. 5. ?For questions about this culture, contact the Microbiology Laboratory at [phone]. Interpretive data was last revised on 2020. Tripp Hernandez MD LAB MICROBIOLOGY - GENERAL ORDER DHARMESH Final Result Performing Organization Address City/[facility]/ZIP Co de Phone Number PNIKY [facility] (MOSCA) 1 [facility] [place] [address] * Troponin T high-sensitivity 4-hour (03/29/2023 6:19 PM CDT) Trop T hs 9 <=14 ng/L PINKY [facility] (MOSCA) Comment: Interpretive Data For further hscTnT resources including the diagnostic algorithm and an aid in interpretation, copy and paste this link: https://nrl.AisleFinder.org/show/hsTrop Current Interpretive Data last revised 2020. Trop T hs delta -1 ng/L GARCIA [facility]CO (MOSCA) Trop T hs interp Insignificant [facility] (MOSCA) Blood 03/29/2023 6:1 9 PM CDT 03/29/2023 6:59 PM CDT Tripp Hernandez MD LAB BLOOD ORDERABLES Final Resul t Performing Organization Address City/[facility]/ZIP Co de Phone Number PINKY [facility] (MOSCA) 1 [facility] [place] [address] * Troponin T high-sensitivity 2-hour (03/29/2023 4:51 PM CDT) Trop T hs 9 <=14 ng/L [facility] (MOSCA) Comment: Interpretive Data For further hscTnT resources including the diagnostic algorithm and an aid in interpretation, copy and paste this link: https://nrl.AisleFinder.org/show/hsTrop Current Interpretive Data last revised 2020. Trop T hs delta See Comment ng/L CE RNER TARA (MOSCA) Comment:Inappropriate collec tion time to report a delta. Trop T hs pct delta See Comment % CERNER [facility] (MOSCA) Comment:Inappropriate collec tion time to report a delta. Trop T hs interp See Comment C ERNER TARA (MOSCA) Comment:Inappropriate collec tion time to report a delta. Blood 03/29/2023 4:51 PM CDT 03/29/2023 4:57 PM CDT us Tripp Hernandez MD LAB BLOOD ORDERABLES Final Resul t [facility] (MOSCA) 1 [facility] Department [place] [address] * CT Chest PE (CTA) W Contrast [...] PM T: ??03/29/2023 5:30 PM Report ID: [id number] [place] Location: ??[id number] Procedure Note Carlyle Conway MD - 03/29/2023 [...] Carlyle Conway M.D. RW: RENEE Report ID: [id number] [place] Location: [place] [address] Tripp Hernandez MD IM CT PROCEDURES Final [...] PM T: ??03/29/2023 3:10 PM Report ID: [id number] [place] Location: ??[id number] Procedure Note Esau Patel, DO - 03/29/2023 [...] Esau Patel D.O. PS: PS Report ID: [id number] [place] Location: [place] [address] Tripp Hernandez MD IMG XR PROCEDURES Final [...] BLOOD ORDERABLES Final Resul t [facility] (MOSCA) 1 [facility] Department [place] [address] * eGFR (03/29/2023 1:23 PM CDT) Pathologist [facility] eGFR 95 mL/min/1. 73 m2 PINKY [facility] (MOSCA) Comment: Interpretive Data Reference Interval Normal ?>/= [...] BLOOD ORDERABLES Final Resul t PINKY [facility] (MOSCA) 1 [facility] Department [place] [address] * Differential, auto (03/29/2023 1:23 PM CDT) Pathologist [facility] Neutrophil abs 5.6 1.7 - 6.5 K/cumm [facility] ([place]Z) Imm gran abs 0.0 0.0 - 0.1 K/cumm [facility] ([place]) Lymphocyte abs 1.9 0.8 - 3.3 K/cumm [facility] ([place]) Monocyte abs 0.4 0.2 - 0.8 K/cumm [facility] ([place]) Eosinophil abs 0.1 0.0 - 0.5 K/cumm [facility] ([place]) Basophil abs 0.1 0.0 - 0.1 K/cumm [facility] (LUZ) Neutrophil pct 69.9 % [facility] R [facility] [...] Final Resul t PINKY [facility]CO (LUZ) 1 [facility] Department [place] [address] * (ABNORMAL) Pro B-type natriuretic peptide (03/29/2023 [...] ORDERABLES Final Resul t Performing Organization Address City/[facility]/ZIP Co de Phone Number [facility] ([place]) [address] [place] [address] [place] [address] * Creatine kinase (CK), total (03/29/2023 1:23 PM CDT) CK 42 30 - 200 Units/L [facility] (MOSCA) Blood 03/29/2023 1:23 PM CDT 03/29/2023 1:26 PM CDT Tripp Hernandez MD LAB BLOOD ORDERABLES Final Resul t Performing Organization Address City/[facility]/ZIP Co de Phone Number [facility] ([place]) [address] [place] [address] [place] [address] * Troponin T high-sensitivity series (baseline, 2hr, 4hr, 6hr) (03/29/2023 1:23 PM CDT) Trop T hs 10 <=14 ng/L [facility] (MOSCA) Comment: Interpretive Data For further hscTnT resources including the diagnostic algorithm and an aid in interpretation, copy and paste this link: https://nrl.testcatalog.org/show/hsTrop Current Interpretive Data last revised 2020. Blood 03/29/2023 1:23 PM CDT 03/29/2023 1:26 PM CDT Tripp Hernandez MD LAB BLOOD ORDERABLES Final Resul t [facility] (LUZ) 1 [facility] Department [place] [address] * (ABNORMAL) Comprehensive metabolic panel (03/29/2023 1:23 [...] Final Resul t [facility] (LUZ) 1 [facility] [employer] [place] [address] * (ABNORMAL) CBC with auto differential (03/29/2023 [...] Final Resul t [facility] (LUZ) 1 [facility] [place] [address] * ECG 12 lead (03/29/2023 1:22 PM CDT) 03/29/2023 1:22 PM CDT Narrative [facility] - 03/29/2023 2:38 PM CDT Vent Rate: 66 bpm RR Interval: 909 msec SD Interval: 147 msec QRS Duration: 85 msec QT Interval: 398 msec QTC Interval: 411 msec P-R-T [place]: 53 - 48 - 47 degrees SINUS RHYTHM NORMAL ECG Electronically Signed By: Cruz Espinoza MD us Tripp Hernandez MD ECG ORDERABLES Final Result [facility] documented in this encounter Visit Diagnoses [...] mL 3 mL, nebulization, Every 6 hours (respiratory assistant), First dose (after last modification) on Sun03/30/23 at 0300, Indications: COPD ExacerbationIndications:COPD Exacerbation Given 04/01/2023 9:15 AM CDT 3 mL Given 04/01/2023 1:22 AM CDT 3 mL Given 03/31/2023 7:50 PM CDT 3 mL ipratropium-albuteroL (DUO-NEB) 0.5-2.5 mg/3 mL nebulizer solution 9 mL 9 mL, nebulization, Once (respiratory assistant), On Margarita 03/29/23 at 1312, For 1 [...] LA twice daily--order adjusted to Inderal 40mg [id number] Given 04/01/2023 6:1 3 AM CDT 40 [...] Discontinue Reason Start Date End Da te eyn-G0-[id number]-iimt-xbm- vale-bor 600 mg calcium- 800 unit-50 mg [...] day as needed. Therapy completed 03/29/2023 omega 1-pcz-swt-fish oil 1,000 mg (120 mg-180 mg) capsule [...] capsule Take 1 capsule by mouth daily nlq-W9-ufr92-zinc -hye-uhco-whh 600 mg calcium- 800 unit-50 mg tablet Take by mouth 03/19 omega 8-otd-mty-fish oil 1,000 mg (120 mg-180 mg) capsule [...] mL 3 mL, nebulization, Every 6 hours (respiratory assistant), First dose (after last modification) on Sun03/30/23 at 0300, Indications: COPD Exacerbation 0116 (Given - Provider: Lorrie Quiroga, DELIVERY ARCHITECT - Comment: clinical decision)0854 (Given - Provider: Robel Martinez, DELIVERY ARCHITECT)1454 (Given - Provider: Robel Martinez, DELIVERY ARCHITECT)2132 (Given - Provider: Teo Irvin, DELIVERY ARCHITECT) 0157 (Given - Provider: Teo Irvin, DELIVERY ARCHITECT)0826 (Given - Provider: Lucinda Hsu, DELIVERY ARCHITECT)1414 (Given - Provider: Lucinda Hsu, DELIVERY ARCHITECT)1950 (Given - Provider: Aydee Beckford, DELIVERY ARCHITECT) 0122 (Given - Provider: Aydee Beckford, DELIVERY ARCHITECT)0915 (Given - Provider: Lucinda Hsu, DELIVERY ARCHITECT) levoFLOXacin (LEVAQUIN) 750 mg/150 mL in dextrose [...] LA twice daily--order adjusted to Inderal 40mg [id number] 0530 (Given - Provider: Jahaira Prater RN)1455 [...] documented as of this encounter Care Teams Weighbridge Operator Relationship Specialty Start Date End Date Watson Perry MD PCP - General Family Medicine 01/24/18 documented as of this encounter
--- OUTSIDE RECORDS SUMMARY | 2024-11-23 18:14 | XMS_ITS | Encounter Summary ---
Author Organization [facility] Address [address] [place] [address] Care Team Providers Care Crew Boss Name Role Phone Watson Perry MD Primary Care Provider Reason for Referral * MRI/CAT/PET Scan (Routine) - Closed Specialty Diagnoses / Procedures Referred By Contac t Referred To Contact Radiology Diagnoses Lung nodule Procedures CT chest without contrast Efren Villanueva MD Phone: tel: fax: [facility] [address] [place] [address] Referral ID Status Reason Start Date Expiration Date Visits Re quested Visits Authorized [id number] Closed 11/16/2022 05/15/2023 1 1 ISHING HAMMER OPERATOR Encounter Details Date Type Department Care Team (Late st Contact Info) Description 10/10/[address] [facility] Pulmonary at [address] [place] [address] Efren Villanueva MD [address] [place] [address] [address] [place] [address] Lung nodule (Primary Dx) Social [...] on file Legal Sex Female 1:09 PM PLANISHING HAMMER OPERATOR Gender Identity Not on file Sexual Orientation Not on file documented as of this encounter Plan of Treatment Not on file documented as of this encounter Results * CT chest without contrast (12/11/2022 8:49 AM PLANISHING HAMMER OPERATOR) Anatomical Region Laterality Modality Body N/A Computed Tomogra phy 12/12/2022 9:41 AM PLANISHING HAMMER OPERATOR Narrative 12/12/2022 9:49 AM PLANISHING HAMMER OPERATOR EXAM DESCRIPTION: ?? CT CHEST WO CONTRAST [...] Recent guidelines by the Fleischner Society (Radiology 486746,2017) divides patient into low vs. high risk [...] immunosuppression, or patients with known primary cancer. http://pubs.rsna.org/doi/pdf/10.1148/radiol.3947312241 THIS IS AN ELECTRONICALLY VERIFIED FINAL REPORT 12/12/2022 9:49 AM - Electronically signed by ??Jayesh Eaton M.D. JA: ANDREW Bradley: ??12/12/2022 9:49 AM T: ??12/12/2022 9:49 AM Report ID: [id number] [place] Location: ??[id number] Procedure Note Jayesh Eaton MD - 12/12/2022 [...] Recent guidelines by the Fleischner Society (Radiology 376454,2017)divides patient into low vs. high risk (for [...] immunosuppression, or patients with known primary cancer. http://pubs.rsna.org/doi/pdf/10.1148/radiol.7974825741 THIS IS AN ELECTRONICALLY VERIFIED FINAL REPORT 12/12/2022 9:49 AM - Electronically signed by Jayesh Eaton M.D. JA: ANDREW Report ID: [id number] [place] Location: [id number] Efren Villanueva MD IM CT PROCEDURES Final Result documented in this encounter Visit Diagnoses Diagnosis Lung nodule- Primary Other diseases of lung, not elsewhere classified Lung nodule Other diseases of lung, not elsewhere classified documented in this encounter Care Teams Crew Boss Relationship Specialty Start Date End Date Watson Perry MD PCP - General Family Medicine 01/24/18 documented as of this encounter
--- OUTSIDE RECORDS SUMMARY | 2024-11-23 18:14 | XMS_ITS | Encounter Summary ---
Author Organization [facility] Address [address] [place] [address] Care Team Providers Care Paper Machine Tender Name Role Phone Watson Perry MD Primary Care Provider Encounter Details Date Type Department Care Team (Late st Contact Info) Description 12/08/2022 Telephone [facility] [address] [place] [address] Fartun Prado RT Social History Tobacco Use Types Packs/Day Years Used Date Smoking Tobacco: Former Cigarettes 1 50 0 05/18/1972 - 05/18/2022 Smokeless Tobacco: Never Alcohol Use Standard Drinks/Week Comments No 0 (1 standard drink = 0.6 oz pur e alcohol) Comments Unknown Sex and Gender Information Value Date Recorded Sex Assigned at Not on file Legal Sex Female 1:09 PM DRY WALL FINISHER Gender Identity Not on file Sexual Orientation Not on file documented as of this encounter Miscellaneous Notes * Telephone Encounter - Fartun Prado RT - 12/08/2022 11:06 AM CST Confirmed appt WALL FINISHER documented in this encounter Plan of Treatment Not on file documented as of this encounter Visit Diagnoses Not on filedocumented in this encounter Care Teams Paper Machine Tender Relationship Specialty Start Date End Date Watson Perry MD PCP - General Family Medicine 01/24/18 documented as of this encounter
--- OUTSIDE RECORDS SUMMARY | 2024-11-23 18:14 | XMS_ITS | Encounter Summary ---
Author Organization [facility] Address [address] [place] [address] Care Team Providers Care Ranch Manager Name Role Phone Watson Perry MD Primary Care Provider [phone] Encounter Details Date Type Department Care Team (Late st Contact Info) Description 03/15/2018 7:53 AM CDT Anesthesia Event [facility] Operating Room [address] [place] [address] [place] [address] [id number] [place] [id number] [address] Anesthesia Record Procedure Summary Procedure Name Responsible [...] on file Legal Sex Female 1:09 PM KELLY MACHINE OPERATOR Gender Identity Not on file Sexual Orientation Not on file documented as of this encounter OR Notes * Anesthesia Postprocedure Evaluation - Maureen Iverson CRNA - 03/15/2018 8:44 AM CDT Patient: Janeth Parker Procedure Summary Date: 03/15/18 Room / Location: [facility] OR [address] [place] [address] OPERATING ROOM Anesthesia Start: 0753 Anesthesia Stop: [...] of consciousness: follows simple commands and arouses information delivery analyst Pain score: 0 Pain management: adequate Airway [...] Staff: Supervising provider: YANI BROWN Placed by: WINDOW SHADE CLOTH SEWER: MAUREEN IVERSON Emergent airway documentation: Risks and [...] is Outpatient. Informed Consent: Discussed plan with WINDOW SHADE CLOTH SEWER. Anesthesia plan and risks discussed with patient [...] Name Priority Date/Time Associated Diagnosis Comments NM AN ELECTIVE ENDOTRACHEAL AIRWAY Routine 03/15/2018 8:07 [...] 03/15/2018 documented in this encounter Care Teams Ranch Manager Relationship Specialty Start Date End Date Watson Perry MD PCP - General Family Medicine 01/24/18 documented as of this encounter
--- OUTSIDE RECORDS SUMMARY | 2024-11-23 18:14 | XMS_ITS | Encounter Summary ---
Author Organization [facility] Address [address] [place] [address] Care Team Providers Care Check Out Cashier Name Role Phone Watson Perry MD Primary Care Provider [phone] Reason for Visit * Reason Onset Date Comments Discuss Test Results 10/10/2022 Encounter Details Date Type Department Care Team (Late st Contact Info) Description 10/10/2022 Telephone [facility] Pulmonary at [address] [place] [address] Nkechi Whitehead LPN Discuss Test [...] on file Legal Sex Female 1:09 PM EVENT SALES MANAGER Gender Identity Not on file Sexual Orientation Not on file documented as of this encounter Miscellaneous Notes * Telephone Encounter - Selam Chu LPN - 10/17/2022 11:34 AM EVENT SALES MANAGER Called and let the patient know that her pulmonary function testing demonstrated moderate to severeCOPD. She should continue using 2 L of supplemental oxygen with activity. No other changes to her treatment at this time Pt verbalizes good understanding. T SALES MANAGER * Telephone Encounter - Nkechi Whitehead LPN - 10/10/2022 2:58 PM EVENT SALES MANAGER Called pt and informed her that ct showed improvement and lung nodules were stable. There were someenlarged lymph phone and they would do a repeat CT in 3 months. Pt verbalized understanding. T SALES MANAGER * Telephone Encounter - Nkechi Whitehead LPN - 10/10/2022 2:57 PM EVENT SALES MANAGER ----- Message from Efren Villanueva MD sent at 10/10/2022 2:26 PM EVENT SALES MANAGER ----- Please let the patient know that her CT scan has improved. The other pulmonary nodules have been stable. There were some enlarged lymph nodes under your left arm. I believe we can continue to monitorthese. The radiologist recommends further follow-up with a repeat scan in 3 months. Thanks T SALES MANAGER documented in this encounter Plan of Treatment Not on file documented as of this encounter Visit Diagnoses Not on filedocumented in this encounter Care Teams Check Out Cashier Relationship Specialty Start Date End Date Watson Perry MD PCP - General Family Medicine 01/24/18 documented as of this encounter
--- OUTSIDE RECORDS SUMMARY | 2024-11-23 18:14 | XMS_ITS | Encounter Summary ---
Author Organization [facility] Address [address] [place] [address] Care Team Providers Care Lobsterman Name Role Phone Watson Perry MD Primary Care Provider [phone] Encounter Details Date Type Department Care Team [...] on file Legal Sex Female 1:09 PM MIG TIG WELDER Gender Identity Not on file Sexual Orientation [...] on filedocumented in this encounter Care Teams Lobsterman Relationship Specialty Start Date End Date Watson Perry MD PCP - General Family Medicine 01/24/18 documented as of this encounter
--- OUTSIDE RECORDS SUMMARY | 2024-11-23 18:14 | XMS_ITS | Encounter Summary ---
Author Organization [facility] Address [address] [place] [address] Care Team Providers Care Flight Line Service Attendant Name Role Phone Watson Perry MD Primary Care Provider [phone] Reason for Visit * Reason Comments 3 mo f/u Cough Encounter Details Date Type Department Care Team (Late st Contact Info) Description 12/18/2022 9:00 AM PRECISION OPTICS TECHNICIAN Office Visit [facility] Pulmonary at [address] [place] [address] Efren Villanueva MD [address] [place] [address] [address] [place] [address] Centrilobular emphysema (CMS/HCC) (HCC) (Primary [...] often do you attend chur ch or mormon services? Never 03/30/2023 Do you belong to [...] place to sleep or slept in a correction (including now)? No 03/30/2023 Personal Safety Answer Date Recorded Have you ever been in or are you currently in a harmful physical or emotional relationship or is someone making you feel afraid or unsafe? Denies 03/29/2023 Comments Unknown Sex and Gender Information Value Date Recorded Sex Assigned at Not on file Legal Sex Female 1:09 PM PRECISION OPTICS TECHNICIAN Gender Identity Not on file Sexual Orientation Not on file documented as of this encounter Last Filed Vital Signs Vital Sign Reading Time Taken Comments Blood Pressure 120/60 12/18/2022 9:02 AM PRECISION OPTICS TECHNICIAN Pulse 75 12/18/2022 9:02 AM PRECISION OPTICS TECHNICIAN Temperature 36.1 ??C (97 ??F) 12/18/2022 9:02 AM PRECISION OPTICS TECHNICIAN Respiratory Rate 16 12/18/2022 9:02 AM PRECISION OPTICS TECHNICIAN Oxygen Saturation 91% 12/18/2022 9:02 AM PRECISION OPTICS TECHNICIAN Inhaled Oxygen Concentration - - Weight 78.9 kg (173 lb 14.4 oz) 12/18/2022 9:02 AM PRECISION OPTICS TECHNICIAN Height 167.6 cm (5' 6 ) 12/18/2022 9:02 AM PRECISION OPTICS TECHNICIAN Body Mass Index 28.07 12/18/2022 9:02 AM PRECISION OPTICS TECHNICIAN documented in this encounter Progress Notes * [...] she reported being hospitalized in May2022 at [facility] for a week for Covid-19 [...] to the use of voice recognition software. ISION OPTICS TECHNICIAN * Selam Chu LPN - 12/18/2022 9:00 AM CST Letter sent * Selam Chu LPN - 12/18/2022 9:00 AM CST Letter sent via [employer] documented in this encounter Plan of Treatment [...] documented as of this encounter Care Teams Flight Line Service Attendant Relationship Specialty Start Date End Date Watson Perry MD PCP - General Family Medicine 01/24/18 documented as of this encounter
--- OUTSIDE RECORDS SUMMARY | 2024-11-23 18:14 | XMS_ITS | Encounter Summary ---
Author Organization [facility] Address [address] [place] [address] Care Team Providers Care Prune Washer Name Role Phone Watson Perry MD Primary Care Provider [phone] Reason for Visit * Reason Onset Date Comments oxygen/POC 12/19/2022 Encounter Details Date Type Department Care Team (Late st Contact Info) Description 12/19/2022 Telephone [facility] Pulmonary at [address] [place] [address] Nkechi Whitehead LPN oxygen/POC Social [...] on file Legal Sex Female 1:09 PM MONEY ORDER CLERK Gender Identity Not on file Sexual Orientation Not on file documented as of this encounter Miscellaneous Notes * Telephone Encounter - Selam Chu LPN - 01/02/2023 2:33 PM MONEY ORDER CLERK Called pt to make sure she was taken care of, and pt states yes, picked up the portable concentrator today. Y ORDER CLERK * Telephone Encounter - Selam Chu LPN - 01/02/2023 2:23 PM MONEY ORDER CLERK Matilde with with [facility] called and said she took care of patient and came and picked up concentrator. Y ORDER CLERK * Telephone Encounter - Selam Chu LPN - 01/01/2023 2:33 PM MONEY ORDER CLERK Called [facility], and was informed by Maxwell that they [...] is going to call pt and inform. Y ORDER CLERK * Telephone Encounter - Selam Chu LPN - 01/01/2023 11:45 AM MONEY ORDER CLERK Pt called and is requesting us to send portable O2 concentrator to [employer], as [facility] does not have any in stock, as well as the rest of her Oxygen orders so she can get all at the same place. Y ORDER CLERK * Telephone Encounter - Nkechi Whitehead LPN - 12/19/2022 2:24 PM MONEY ORDER CLERK Faxed POC order to [facility] Y ORDER CLERK documented in this encounter Plan of Treatment Not on file documented as of this encounter Visit Diagnoses Not on filedocumented in this encounter Care Teams Prune Washer Relationship Specialty Start Date End Date Watson Perry MD PCP - General Family Medicine 01/24/18 documented as of this encounter
--- OUTSIDE RECORDS SUMMARY | 2024-11-23 18:14 | XMS_ITS | Encounter Summary ---
Author Organization [facility] Address [address] [place] [address] Care Team Providers Care Service Engineer Name Role Phone Watson Perry MD Primary Care Provider Encounter Details Date Type Department Care Team (Late st Contact Info) Description 01/01/2023 Orders Only [facility] Pulmonary at [address] [place] [address] Selam Chu LPN Chronic respiratory [...] on file Legal Sex Female 1:09 PM CITIZENSHIP INSTRUCTOR Gender Identity Not on file Sexual Orientation Not on file documented as of this encounter Plan of Treatment Not on file documented as of this encounter Visit Diagnoses Diagnosis Chronic respiratory failure with hypoxia (CMS/HCC) (HCC)- Primary documented in this encounter Care Teams Service Engineer Relationship Specialty Start Date End Date Watson Perry MD PCP - General Family Medicine 01/24/18 documented as of this encounter
--- OUTSIDE RECORDS SUMMARY | 2024-11-23 18:14 | XMS_ITS | Encounter Summary ---
Author Organization [facility] Address [address] [address] Care Team Providers Care Project Inspector Name Role Phone Watson Perry MD Primary Care Provider [phone] Reason for Referral * MRI/CAT/PET Scan (Routine) - Closed Specialty Diagnoses / Procedures Referred By Contac t Referred To Contact Radiology Diagnoses Lung consolidation (HCC) Procedures CT chest without contrast Efren Villanueva MD Phone: tel: fax: [address] [address] Referral ID Status Reason Start Date Expiration Date Visits Re quested Visits Authorized [id number] Closed 09/15/2022 03/14/2023 1 1 * Procedure (Routine) - Closed Specialty Diagnoses / Procedures Referred By Contac t Referred To Contact Diagnoses Centrilobular emphysema (HCC) Procedures Pulmonary Function Test -[facility]; Complete PFT with 6 Minute Walk Efren Villanueva MD Phone: tel: fax: Referral ID Status Reason Start Date Expiration Date Visits Re quested Visits Authorized [id number] Closed 09/14/2022 10/14/2023 1 1 Reason for Visit * Reason Comments COPD Encounter Details Date Type Department Care Team (Late st Contact Info) Description 09/14/2022 11:15 AM CDT Office Visit [facility] Pulmonary at [address] [place] [id number] Efren Villanueva MD [address] [place] [address] [address] [place] [address] Lung consolidation (HCC) (Primary Dx); Centrilobular emphysema [...] on file Legal Sex Female 1:09 PM HAT BAND ATTACHER Gender Identity Not on file Sexual Orientation [...] reports she was hospitalized in May at [facility] for a week for Covid-19 pneumonia. [...] (HCC) - after receiving the images from [facility] I believe it is likely this represents [...] repeat walk study - Pulmonary Function Test -[facility]; Complete PFT with 6 Minute Walk; Future [...] this encounter Results * Pulmonary Function Test -[facility]; Complete PFT with 6 Minute Walk (10/03/2022 8:59 AM HAT BAND ATTACHER) Anatomical Region Laterality Modality PFT Impressions 10/12/2022 4:29 PM HAT BAND ATTACHER 1. Moderate obstruction with severe air trapping 2. Mildly decreased uncorrected DLCO 3. Patient required 2 L oxygen with ambulation during walk test Electronically signed by Max Thomas MD Narrative 10/12/2022 4:29 PM HAT BAND ATTACHER INTERPRETATION Please see technologist's comments mentioned in [...] CT chest without contrast (10/03/2022 7:11 AM HAT BAND ATTACHER) Anatomical Region Laterality Modality Body N/A Computed Tomogra phy 10/03/2022 7:13 PM HAT BAND ATTACHER Narrative 10/03/2022 7:28 PM HAT BAND ATTACHER EXAM DESCRIPTION: ?? CT CHEST WO CONTRAST REASON FOR STUDY: ?? PLEXOPATHY, LUMBSAC, POST RAD TX, consolidation ?? Follow up to [facility] in May ??Prev scan at ,[facility] ??No [...] to Intra-fissural, perifissural, and subpleural pulmonary nodules. http://pubs.rsna.org/doi/pdf/10.1148/radiol.6807253534 THIS IS AN ELECTRONICALLY VERIFIED FINAL REPORT 10/03/2022 7:28 PM - Electronically signed by ??Eamon ARAUJO: VAN D: ??10/03/2022 7:28 PM T: ??10/03/2022 7:28 PM Report ID: [id number] Reading Location: ??[id number] Procedure Note Renny Bell MD - 10/03/2022 EXAM DESCRIPTION: CT CHEST WO CONTRAST REASON FOR STUDY: PLEXOPATHY, LUMBSAC, POST RAD TX, consolidation Follow up to [facility] in May Prev scan [facility] No [...] to Intra-fissural, perifissural, and subpleural pulmonary nodules. http://pubs.rsna.org/doi/pdf/10.1148/radiol.0896887480 THIS IS AN ELECTRONICALLY VERIFIED FINAL REPORT 10/03/2022 7:28 PM - Electronically signed by Eamon Bell M.D. VAN: VAN Report ID: [id number] Reading Location: [place] [address] Efren Villanueva MD IMG CT PROCEDURES Final [...] 09/14/2022 added in this encounter Care Teams Project Inspector Relationship Specialty Start Date End Date Watson Perry MD PCP - General Family Medicine 01/24/18 documented as of this encounter
--- OUTSIDE RECORDS SUMMARY | 2024-11-23 18:14 | XMS_ITS | Encounter Summary ---
Author Organization [facility] Address [address] [place] [address] Care Team Providers Care Electric Motor Repairing Supervisor Name Role Phone Watson Perry MD Primary Care Provider Reason for Referral * MRI/CAT/PET Scan (Routine) - Closed Specialty Diagnoses / Procedures Referred By Contac t Referred To Contact Radiology Diagnoses Lung nodule Procedures CT chest without contrast Efren Villanueva MD Phone: tel: fax: [address] [address] Referral ID Status Reason Start Date Expiration Date Visits Re quested Visits Authorized [id number] Closed 11/16/2022 05/15/2023 1 1 STANT MANAGER BILINGUAL Reason for Visit * MRI/CAT/PET Scan (Routine) - Closed Specialty Diagnoses / Procedures Referred By Contac t Referred To Contact Radiology Diagnoses Lung nodule Procedures CT chest without contrast Efren Villanueva MD Phone: tel: fax: [address] [phone] Referral ID Status Reason Start Date Expiration Date Visits Re quested Visits Authorized [id number] Closed 11/16/2022 05/15/2023 1 1 Encounter Details Date Type Department Care Team (Latest Contact Info) Description 12/11/2022 8:30 AM ASSISTANT MANAGER BILINGUAL - 12/11/2022 11:59 PM ASSISTANT MANAGER BILINGUAL Hospital Encounter [facility] [address] [place] [address] Lung nodule Discharge Disposition: Discharge to home [...] on file Legal Sex Female 1:09 PM ASSISTANT MANAGER BILINGUAL Gender Identity Not on file Sexual Orientation [...] Read Routine (OP Routine) 12/11/2022 8:49 AM ASSISTANT MANAGER BILINGUAL Lung nodule documented in this encounter Results * CT chest without contrast (12/11/2022 8:49 AM ASSISTANT MANAGER BILINGUAL) Anatomical Region Laterality Modality Body N/A Computed Tomogra phy 12/12/2022 9:41 AM ASSISTANT MANAGER BILINGUAL Narrative 12/12/2022 9:49 AM ASSISTANT MANAGER BILINGUAL EXAM DESCRIPTION: ?? CT CHEST WO CONTRAST [...] Recent guidelines by the Fleischner Society (Radiology 404190,2017) divides patient into low vs. high risk [...] immunosuppression, or patients with known primary cancer. http://pubs.rsna.org/doi/pdf/10.1148/radiol.0032101599 THIS IS AN ELECTRONICALLY VERIFIED FINAL REPORT 12/12/2022 9:49 AM - Electronically signed by ??Jayesh Eaton M.D. JA: ANDREW D: ??12/12/2022 9:49 AM T: ??12/12/2022 9:49 AM Report ID: [id number] Reading Location: ??[id number] Procedure Note Jayesh Eaton MD - 12/12/2022 [...] Recent guidelines by the Fleischner Society (Radiology 679744,2017)divides patient into low vs. high risk (for [...] immunosuppression, or patients with known primary cancer. http://pubs.rsna.org/doi/pdf/10.1148/radiol.9710491786 THIS IS AN ELECTRONICALLY VERIFIED FINAL REPORT 12/12/2022 9:49 AM - Electronically signed by Jayesh Eaton M.D. JA: ANDREW Report ID: [id number] Reading Location: [place] [address] Efren Villanueva MD IM CT PROCEDURES Final Result documented in this encounter Visit Diagnoses Diagnosis Lung nodule Other diseases of lung, not elsewhere classified documented in this encounter Care Teams Electric Motor Repairing Supervisor Relationship Specialty Start Date End Date Watson Perry MD PCP - General Family Medicine 01/24/18 documented as of this encounter
--- OUTSIDE RECORDS SUMMARY | 2024-11-23 18:14 | XMS_ITS | Encounter Summary ---
Author Organization [facility] Address [address] [place] [address] Care Team Providers Care Museum Registrar Name Role Phone Watson Perry MD Primary Care Provider Reason for Referral * MRI/CAT/PET Scan (Routine) - Closed Specialty Diagnoses / Procedures Referred By Contac t Referred To Contact Radiology Diagnoses Lung consolidation (HCC) Procedures CT chest without contrast Efren Villanueva MD Phone: tel: fax: [address] [address] Referral ID Status Reason Start Date Expiration Date Visits Re quested Visits Authorized [id number] Closed 09/15/2022 03/14/2023 1 1 CAL ADVISOR Reason for Visit * MRI/CAT/PET Scan (Routine) - Closed Specialty Diagnoses / Procedures Referred By Contac t Referred To Contact Radiology Diagnoses Lung consolidation (HCC) Procedures CT chest without contrast Efren Villanueva MD Phone: tel: fax: [address] [address] Referral ID Status Reason Start Date Expiration Date Visits Re quested Visits Authorized [id number] Closed 09/15/2022 03/14/2023 1 1 Encounter Details Date Type Department Care Team (Latest Contact Info) Description 10/03/2022 6:57 AM MEDICAL ADVISOR - 10/03/2022 11:59 PM MEDICAL ADVISOR Hospital Encounter [facility] [address] [place] [address] Lung consolidation (HCC) Discharge Disposition: Discharge to [...] on file Legal Sex Female 1:09 PM MEDICAL ADVISOR Gender Identity Not on file Sexual Orientation [...] Read Routine (OP Routine) 10/03/2022 7:11 AM MEDICAL ADVISOR Lung consolidation (HCC) documented in this encounter Results * CT chest without contrast (10/03/2022 7:11 AM MEDICAL ADVISOR) Anatomical Region Laterality Modality Body N/A Computed Tomogra phy 10/03/2022 7:13 PM MEDICAL ADVISOR Narrative 10/03/2022 7:28 PM MEDICAL ADVISOR EXAM DESCRIPTION: ?? CT CHEST WO CONTRAST REASON FOR STUDY: ?? PLEXOPATHY, LUMBSAC, POST RAD TX, consolidation ?? Follow up to [facility] in May ??Prev scan at ,[facility] [...] to Intra-fissural, perifissural, and subpleural pulmonary nodules. http://pubs.rsna.org/doi/pdf/10.1148/radiol.4531893519 THIS IS AN ELECTRONICALLY VERIFIED FINAL REPORT 10/03/2022 7:28 PM - Electronically signed by ??Eamon Bell M.D. VAN: VAN D: ??10/03/2022 7:28 PM T: ??10/03/2022 7:28 PM Report ID: [id number] Reading Location: ??[id number] Procedure Note Renny Bell MD - 10/03/2022 EXAM DESCRIPTION: CT CHEST WO CONTRAST REASON FOR STUDY: PLEXOPATHY, LUMBSAC, POST RAD TX, consolidation Follow up to [facility] in May Pre[facility] scan [facility] [...] to Intra-fissural, perifissural, and subpleural pulmonary nodules. http://pubs.rsna.org/doi/pdf/10.1148/radiol.1604861181 THIS IS AN ELECTRONICALLY VERIFIED FINAL REPORT 10/03/2022 7:28 PM - Electronically signed by Eamon Bell M.D. VAN: VAN Report ID: [id number] Reading Location: [place] [address] Efren Villanueva MD IMG CT PROCEDURES Final Result documented in this encounter Visit Diagnoses Diagnosis Lung consolidation (HCC) documented in this encounter Care Teams Museum Registrar Relationship Specialty Start Date End Date Watson Perry MD PCP - General Family Medicine 01/24/18 documented as of this encounter
--- OUTSIDE RECORDS SUMMARY | 2024-11-23 18:14 | XMS_ITS | Encounter Summary ---
Author Organization [facility] Address [address] [place] [address] Care Team Providers Care Mission Support Specialist Name Role Phone Watson Perry MD Primary Care Provider [phone] Encounter Details Date Type Department Care Team [...] on file Legal Sex Female 1:09 PM CASE MANAGEMENT DIRECTOR Gender Identity Not on file Sexual [...] on filedocumented in this encounter Care Teams Mission Support Specialist Relationship Specialty Start Date End Date Watson Perry MD PCP - General Family Medicine 01/24/18 documented as of this encounter
--- OUTSIDE RECORDS SUMMARY | 2024-11-23 18:14 | XMS_ITS | Encounter Summary ---
Author Organization [facility] Medical [facility] Address [address] [place] [address] Care Team Providers Care Gis Database Administrator Name Role Phone Watson Perry MD Primary Care Provider [phone] Encounter Details Date Type Department Care Team (Late st Contact Info) Description 02/04/2018 Telephone [facility] [address] [place] [phone] Amanda Franco MA Social History Tobacco Use Types Packs/Day Years Used Date Smoking Tobacco: Every Day Cigarettes Smokeless Tobacco: Never Alcohol Use Standard Drinks/Week Comments No 0 (1 standard drink = 0.6 oz pur e alcohol) Comments Unknown Sex and Gender Information Value Date Recorded Sex Assigned at Not on file Legal Sex Female 1:09 PM CADASTRAL SURVEYOR Gender Identity Not on file Sexual Orientation [...] on filedocumented in this encounter Care Teams Gis Database Administrator Relationship Specialty Start Date End Date Watson Perry MD PCP - General Family Medicine 01/24/18 documented as of this encounter
--- OUTSIDE RECORDS SUMMARY | 2024-11-23 18:14 | XMS_ITS | Encounter Summary ---
Author Organization [facility] Address [address] [place] [address] Care Team Providers Care Accountancy Professor Name Role Phone Watson Perry MD Primary Care Provider [phone] Encounter Details Date Type Department Care Team (Late st Contact Info) Description 10/02/2022 Telephone [facility] [address] [place] [address] Aydee Rojas, RT Social History Tobacco Use Types Packs/Day Years Used Date Smoking Tobacco: Former Cigarettes 1 50 0 05/18/1972 - 05/18/2022 Smokeless Tobacco: Never Alcohol Use Standard Drinks/Week Comments No 0 (1 standard drink = 0.6 oz pur e alcohol) Comments Unknown Sex and Gender Information Value Date Recorded Sex Assigned at Not on file Legal Sex Female 1:09 PM ADVISOR CONSULTANT Gender Identity Not on file Sexual Orientation Not on file documented as of this encounter Miscellaneous Notes * Telephone Encounter - Aydee Rojas RT - 10/02/2022 10:12 AM ADVISOR CONSULTANT Confirmed @ 10:13 SOR CONSULTANT documented in this encounter Plan of Treatment Not on file documented as of this encounter Visit Diagnoses Not on filedocumented in this encounter Care Teams Accountancy Professor Relationship Specialty Start Date End Date Watson Perry MD PCP - General Family Medicine 01/24/18 documented as of this encounter
--- OUTSIDE RECORDS SUMMARY | 2024-11-23 18:14 | XMS_ITS | Encounter Summary ---
Author Organization [facility] Address [address] [place] [address] Care Team Providers Care Director Of Convention Services Name Role Phone Watson Perry MD Primary Care Provider [phone] Encounter Details Date Type Department Care Team (Late st Contact Info) Description 01/01/2023 Orders Only [facility] Pulmonary at [address] [place] [address] Selam Chu LPN Chronic respiratory [...] on file Legal Sex Female 1:09 PM DECORATOR INSPECTOR Gender Identity Not on file Sexual Orientation Not on file documented as of this encounter Plan of Treatment Not on file documented as of this encounter Visit Diagnoses Diagnosis Chronic respiratory failure with hypoxia (CMS/HCC) (HCC)- Primary documented in this encounter Care Teams Director Of Convention Services Relationship Specialty Start Date End Date Watson Perry MD PCP - General Family Medicine 01/24/18 documented as of this encounter
--- OUTSIDE RECORDS SUMMARY | 2024-11-23 18:14 | XMS_ITS | Encounter Summary ---
Author Organization [facility] Address [address] [place] [address] Care Team Providers Care Sr Solutions Consultant Name Role Phone Watson Perry MD Primary Care Provider [phone] Reason for Referral * MRI/CAT/PET Scan (Routine) - Closed Specialty Diagnoses / Procedures Referred By Contac t Referred To Contact Radiology Diagnoses Lymphadenopathy Procedures CT chest with contrast Efren Villanueva MD [address] [place] [address] [address] [place] [address] Phone: tel: fax: [address] [address] Referral ID Status Reason Start Date Expiration Date Visits Re quested Visits Authorized [id number] Closed 05/11/2023 11/07/2023 1 1 Reason for Visit * MRI/CAT/PET Scan (Routine) - Closed Specialty Diagnoses / Procedures Referred By Contac t Referred To Contact Radiology Diagnoses Lymphadenopathy Procedures CT chest with contrast Efren Villanueva MD [address] [place] [address] [address] [place] [address] Phone: tel: fax: [address] [phone] Referral ID Status Reason Start Date Expiration Date Visits Re quested Visits Authorized [id number] Closed 05/11/2023 11/07/2023 1 1 Encounter Details Date Type Department Care Team (Latest Contact Info) Description 05/30/2023 10:10 AM CDT - 05/30/2023 11:59 PM CDT Hospital Encounter [facility] [address] [place] [address] Lymphadenopathy Discharge Disposition: Discharge to home or [...] How often do you attend chur or orthodox services? Never 03/30/2023 Do you belong to any clubs o r organizations such as gnosticist groups, unions, fraternal or athletic groups, or [...] place to sleep or slept in a intermediate (including now)? No 03/30/2023 Personal Safety Answer Date Recorded Have you ever been in or are you currently in a harmful physical or emotional relationship or is someone making you feel afraid or unsafe? Denies 03/29/2023 Comments Unknown Sex and Gender Information Value Date Recorded Sex Assigned at Not on file Legal Sex Female 1:09 PM PIPELINE SUPERINTENDENT Gender Identity Not on file Sexual Orientation [...] Take 1 capsule by mouth daily omega 1-ipt-djk-fish oil 1,000 mg (120 mg-180 mg) capsule [...] PM T: ??06/01/2023 12:31 PM Report ID: [id number] Reading Location: ??[id number] Procedure Note Ish Jacob MD - 06/01/2023 [...] posterior segment of the right upper lobe, [id number] mm. This nodule has slightly increased in [...] Ish Diaz M.D. RL: CASSANDRA Report ID: [id number] Reading Location: [place] [address] Efren Villanueva MD IMG CT PROCEDURES Final [...] 05/30/2023 documented in this encounter Care Teams Sr Solutions Consultant Relationship Specialty Start Date End Date Watson Perry MD PCP - General Family Medicine 01/24/18 documented as of this encounter
--- OUTSIDE RECORDS SUMMARY | 2024-11-23 18:14 | XMS_ITS | Encounter Summary ---
Author Organization [facility] Address [address] [place] [address] Care Team Providers Care Commercial Assistant Name Role Phone Watson Perry MD Primary Care Provider [phone] Encounter Details Date Type Department Care Team (Late st Contact Info) Description 03/15/2018 7:53 AM CDT - 03/15/2018 8:53 AM CDT Surgery [facility] Operating Room [address] [place] [address] Lico Wayne DO [address] [place] [id number] Excision lesion right mandible Surgery Details Date/Time [...] on file Legal Sex Female 1:09 PM QUALITY CONTROL PROJECTIONIST Gender Identity Not on file Sexual Orientation [...] apron or towel on the person's clothes. Pitman the person's teeth: ?? Wet the toothbrush and place a small amount of toothpaste on it. ?? Gently place the brush onto each tooth, and move it in a curyung. Do not press too hard. This mayinjure the gums. ?? Clean the inner, outer, and top surfaces of the person's teeth. Pitman the gums and top of the tongue [...] loosen them. Then pull them out. ?? Pitman the dentures at a sink with clean water and denture spot cleaner or toothpaste. ?? Pitman the dentures on all surfaces with clean, [...] trouble breathing during mouth care. ?? 2016 [employer] Information is for End User's use only and may not be sold, redistributed or otherwise used for commercial purposes. All illustrations and images included in CareNotes?? are the copyrighted property of [employer]. or [employer]. The above information is an manager educational only. It is not intended as medical advice for individual conditions or treatments. Talk to your doctor, nurse or pharmacist before following any medical regimen to see if it is safe and effective for you. * Attachments The following attachments cannot be sent through Care Everywhere. * Oxycodone/Acetaminophen (By mouth) (Chinese) * Cephalexin (By mouth) (Chinese) * General Anesthesia (Discharge Care) (Chinese) documented in this encounter Medications at Time [...] was used to retract the tongue. A Army-Calvert retractor was used to retract the buccal [...] that you and your doctor have chosen [facility] for your surgery. We hope that the [...] of water. ?? Use no make-up, nail welsh, lotions, oils or powders on your skin. [...] AM CDT Narrative 03/19/2018 2:29 PM CDT [facility] Department of Pathology [address] [place] [address] Final Report ?Patient Name: JANETH PARKER Address: [address] Service: Surgery ??[place], [place] ??[address] Location: [facility] MISHEL Taken: 03/15/2018 Gender: F Received 03/15/2018 : 1950 (Age: 68) Hospital #: [id number] Accessioned: 03/15/2018 ?? Patient Type: AM[facility] SDS [...] by the Surgical Pathology Department at [facility] as part of an ongoing quality control assistant program and in compliance with federally mandated [...] characteristics determined by the Surgical Pathology Department [facility]. ??It has not been cleared or approved by the U. S. Food and Drug Administration. Lico Wayne DO LAB PATHOLOGY ORDERABLES Fin al Result * ECG 12 lead (03/15/2018 6:38 AM CDT) Patient age 68 years [facility] Interpretation Text SINUS BRADYCARDIABORDERLINE ECGNO PREVIOUS TRACING [facility] Comment:Physician Interprete r Dr. Bhupendra Lira M.D. Ventricular Rate EKG/Min 59 /min [facility] P Wave Duration 121 ms [facility] QRS-Interval (MSEC) 105 ms [facility] MS-Interval (MSEC) 148 ms [facility] QT Interval 451 ms [facility] QTc 449 ms [facility] QTC Interval ms [facility] P [place] 65 deg [facility] QRS [place] 65 deg [facility] T [place] 68 deg [facility] 03/15/2018 6:38 AM CDT Armida Kang MD ECG ORDERABLES Final Re sult [facility] [place] * SURGICAL PATHOLOGY (03/15/2018 12:00 AM [...] 03/15/2018 documented in this encounter Care Teams Commercial Assistant Relationship Specialty Start Date End Date Watson Perry MD PCP - General Family Medicine 01/24/18 documented as of this encounter
--- OUTSIDE RECORDS SUMMARY | 2024-11-23 18:14 | XMS_ITS | Encounter Summary ---
Author Organization [facility] Address [address] [place] [address] Care Team Providers Care Cafeteria Food Server Name Role Phone Watson Perry MD Primary Care Provider Reason for Visit * Reason Onset Date Comments Portable O2 05/08/2023 Encounter Details Date Type Department Care Team (Late st Contact Info) Description 05/08/2023 Telephone [facility] Pulmonary at [address] [place] [address] Selam Chu LPN Portable O2 [...] chur ch or jehovah's witness services? Never 03/30/2023 Do you belong to any clubs o r organizations such as oriental orthodox groups, unions, fraternal or athletic groups, or [...] slept in a custodial (including now)? No 03/30/2023 Personal Safety Answer Date Recorded Have you ever been in or are you currently in a harmful physical or emotional relationship or is someone making you feel afraid or unsafe? Denies 03/29/2023 Comments Unknown Sex and Gender Information Value Date Recorded Sex Assigned at Not on file Legal Sex Female 1:09 PM FLOUR BROKER Gender Identity Not on file Sexual Orientation [...] on filedocumented in this encounter Care Teams Cafeteria Food Server Relationship Specialty Start Date End Date Watosn Perry MD PCP - General Family Medicine 01/24/18 documented as of this encounter
--- OUTSIDE RECORDS SUMMARY | 2024-11-23 18:14 | XMS_ITS | Encounter Summary ---
Author Organization [facility] Address [address] [place] [address] Care Team Providers Care Soaker Name Role Phone Watson Perry MD Primary Care Provider [phone] Encounter Details Date Type Department Care Team (Late st Contact Info) Description 05/08/2023 Orders Only [facility] Pulmonary at [address] [place] [address] Selam Rivas LPN Centrilobular emphysema [...] you attend chur or jew services? Never 03/30/2023 Do you belong to any clubs o r organizations such as confucianist groups, unions, fraternal or athletic groups, or [...] place to sleep or slept in a jail (including now)? No 03/30/2023 Personal Safety Answer Date Recorded Have you ever been in or are you currently in a harmful physical or emotional relationship or is someone making you feel afraid or unsafe? Denies 03/29/2023 Comments Unknown Sex and Gender Information Value Date Recorded Sex Assigned at Not on file Legal Sex Female 1:09 PM DOPEMAN Gender Identity Not on file Sexual Orientation [...] (HCC) documented in this encounter Care Teams Soaker Relationship Specialty Start Date End Date Watson Perry MD PCP - General Family Medicine 01/24/18 documented as of this encounter
--- OUTSIDE RECORDS SUMMARY | 2024-11-23 18:14 | XMS_ITS | Encounter Summary ---
Author Organization [facility] Address [address] [place] [address] Care Team Providers Care Car Pusher Name Role Phone Watson Perry MD Primary Care Provider [phone] Reason for Visit * Reason Comments Post-op Encounter Details Date Type Department Care Team (Late st Contact Info) Description 04/03/2018 4:20 PM CDT Office Visit [facility] [address] [place] [address] [address], [place] [phone] Lico Wayne, DO [facility] [place] [address] Torus mandibularis (Primary Dx) Social History Tobacco Use Types Packs/Day Years Used Date Smoking Tobacco: Every Day Cigarettes Smokeless Tobacco: Never Alcohol Use Standard Drinks/Week Comments No 0 (1 standard drink = 0.6 oz pur e alcohol) Comments Unknown Sex and Gender Information Value Date Recorded Sex Assigned at Not on file 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
--- NOTE | 2024-11-24 07:31 | P.DS_ITS ---
DS: Admitting Diagnosis Discharge Date 11/22/24 Admitting Diagnosis RT knee arthritis DS: Discharge Diagnosis Discharge Diagnosis (1) Fall from ground level: Code(s): W18.30XA - Fall on same level, unspecified, initial encounter Status: Acute Assessment and Plan: * thoracic and lumbar spine x-ray showing mild thoracic and lumbar spondylosis * shoulder x-ray showing polyarticular osteoarthritis * knee x-ray showing large joint effusion * PT and OT (2) Effusion of right knee joint: Code(s): M25.461 - Effusion, right knee Status: Acute Assessment and Plan: * right knee x-ray showing large joint effusion * PT and OT ordered * orthopedic consult * continue pain medication as needed * Will need to wear knee brace, hold off on draining effusion for now 11/18 * Case management following for rehab needs * Ortho following * Continue PT and OT * Continue pain control * ice and elevate for swelling Continue with treatment pending placement to rehab (3) Right knee pain: Code(s): M25.561 - Pain in right knee Status: Acute Assessment and Plan: see above (4) Osteoarthritis of right knee: Qualifiers: Osteoarthritis type: primary Qualified Code(s): M17.11 - Unilateral primary osteoarthritis, right knee Code(s): M17.11 - Unilateral primary osteoarthritis, right knee Status: Acute Assessment and Plan: see above (5) Chronic obstructive pulmonary disease: Code(s): J44.9 - Chronic obstructive pulmonary disease, unspecified Status: Acute Assessment and Plan: * Christian p.r.n. * continue Flonase * continue with home oxygen 3 L nasal cannula * not appearing exacerbation (6) Generalized anxiety disorder: Code(s): F41.1 - Generalized anxiety disorder Status: Acute Assessment and Plan: * continue citalopram and Klonopin (7) Parkinson disease: Code(s): G20.A1 - Parkinson's disease without dyskinesia, without mention of fluctuations Status: Acute Assessment and Plan: * resume carbidopa levodopa (8) Constipation: Code(s): K59.00 - Constipation, unspecified Status: Acute Assessment and Plan: * Miralax daily * Lactulose q6hr until BM * Encourage hydration activity 11/21/2024 * Added fleet enema Plan Disposition: Patient discharged to rehab DS: Summary Hospital Course Reason for hospitalization: RT knee arthritis Hospital Course: Patient was a 74-year-old with Parkinson's disease, restless leg syndrome, hypertension, hyperlipidemia, chronic obstructive pulmonary disease, gastroesophageal reflux disease, anxiety, and osteoarthritis who presented to the emergency department for evaluation of right knee pain. The patient provides the following history. She has severe degenerative arthritis in the right knee for which she has seen Dr. Cooper in the past. He referred her to [facility] though she does not have an appointment until the 20 of December. She has been managing at home however she unfortunately sustained a fall yesterday, apparently missing the couch. She landed mostly on her buttocks but thinks that she may have twisted the right knee and likely braced herself in the fall because she is complaining of pain in her right knee and right shoulder. She has also had some discomfort in her lower back. There was no head trauma or loss of consciousness. She does not feel safe ambulating or going home at this time. Patient continued to work with Physical therapy awaiting on placement to a rehab facility. She did encounter constipation without BM for several days likely secondary to narcotic use initially started on stool softener and Miralax with no relief so added lactulose at which time she finally had a BM. She received authorization for rehab and was discharged. Assessed day of discharge in no acute distress and would have follow-up with Dr. cooper as scheduled following rehab Status at Discharge Functional status at discharge: uses cane/walker Overall status at discharge: patient is progressing back to baseline Time Spent with Patient Time attestation: Total time spent providing and/or coordinating discharge services: Time spent: Greater than 30 minutes Exam Narrative: General: In no acute distress, well nourished Cardiac: Normal S1 and S2. Respiratory: Lungs clear to auscultation, no adventitious lung sounds, currently on 3L NC which is her baseline O2 requirement Gastrointestinal: soft, non-distended, non-tender, normoactive bowel sounds. : voiding without difficulty. Extremities: limited ROM of right knee with swelling--knee brace in place Neuro: Alert and oriented x4 DS: Data Imaging Radiologist's impression: Radiology Results: ITS Impressions Knee X-Ray 11/16/24 14:37 IMPRESSION: Severe degenerative disease within large suprapatellar joint effusion. No acute fracture. Shoulder X-Ray 11/17/24 09:54 IMPRESSION: 1. Polyarticular osteoarthritis. Lumbar Spine X-Ray 11/17/24 09:55 IMPRESSION: 1. Mild lumbar spondylosis. Thoracic Spine X-Ray 11/17/24 09:57 IMPRESSION: 1. Mild thoracic spondylosis. Discharge Plan Discharge Attending physician on discharge: Judah Gonzales Consulting providers: Ford Cooper; Yomaira Kiran; Aries Duarte; Marianela Bertrand; Lew Keys V.; Clarice Matos Discharging Clinician: Mariaelena Fajrado Anticipated Discharge Date/Time: 11/22/24 11:58 Patient Disposition: SNF Activity: may shower and as tolerated Diet: heart healthy Discharge Instructions: * Advance therapy in weight-bearing status as tolerated * may use knee brace * I have prescribed a stool softener for any continued constipation could be secondary to pain medication * I encourage hydration * follow-up with orthopedics as scheduled How can you care for yourself at home? ? Keep track of any new symptoms or changes in your symptoms. ? Rest until you feel better. ? Be safe with medicines. Take your medicines exactly as prescribed. Call your doctor if you think you are having a problem with your medicine. ? Do not drive after taking a prescription pain medicine. ? Ensure to follow-up with primary care physician as indicated and provide updated medication list provided to you at discharge. When should you call for help? Call 911 anytime you think you may need emergency care. For example, call if: ? You passed out (lost consciousness). Call your doctor now or seek immediate medical care if: ? You have new symptoms like fever, difficulty breathing, Chest pain, vomiting, or rash. ? You have new or different pain. ? You are confused and are having trouble thinking clearly. ? Your symptoms are getting worse. Watch closely for changes in your health, and be sure to contact your doctor if: ? You do not get better as expected. Patient Instructions: Arthritis (DC) Patient Language: South Korean Stand Alone Forms: General Discharge Information Follow-up/Referrals: Vicky,MD Watson [Primary Care Provider] - 4 Weeks Ford Cooper MD [Physician] - Keep Reg. Scheduled Appt. Discharge Medications: New acetaminophen 325 mg Tablet 650 mg PO Q4H PRN (Reason: Mild Pain (1-3) Or Fever) Qty: 10 0RF polyethylene glycol 3350 [Miralax] 17 gram Powder In Packet 17 g PO QAM PRN (Reason: Constipation) Qty: 10 0RF hydrocodone-acetaminophen 5-325 mg Tablet 1 tablet PO Q4H PRN (Reason: Pain Rated 4-6) Qty: 20 0RF sennosides-docusate sodium [Senokot-S] 8.6-50 mg Tablet 1 tab PO HS Qty: 10 0RF Continued propranolol 60 mg capsule,extended release 24 hr 60 mg PO DAILY esomeprazole magnesium 20 mg capsule,delayed release(DR/EC) 20 mg PO DAILY citalopram 20 mg tablet 20 mg PO DAILY rosuvastatin 10 mg tablet 10 mg PO DAILY omega 0-axx-ioy-fish oil [Fish Oil] 300-1,000 mg capsule 1 cap PO BID Trelegy Ellipta 200-62.5-25 mcg blister with device 1 inh inhalation .evening primidone 250 mg tablet 125 mg PO QHS carbidopa-levodopa 25-100 mg tablet 1 tablet PO TID ipratropium-albuterol 0.5 mg-3 mg(2.5 mg base)/3 mL solution for nebulization 3 ml INHALATION DAILY PRN (Reason: shortness of breath or wheezing) clonazepam 1 mg tablet 1 mg PO HS Qty: 10 0RF pramipexole 1.5 mg tablet 1.5 mg PO BID calcium carb-mag ox-zinc gluc 333-133-5 mg Tablet 1 tablet PO DAILY multivitamin [Daily Multi-Vitamin] Tablet 1 tablet PO DAILY Date of admission: 11/16/24 16:30 Primary Care Provider: GloriaWatson Admitting Provider: Davon Sarmiento Attending physician on admission: Mariaelena Fajardo Condition: Stable Quality VTE Prophylaxis VTE prophylaxis: mechanical ordered and pharmacologic ordered -Patient's previous records reviewed on admission -ER notes reviewed in detail on admission -discussed all findings and current treatment plan with patient/Family/POA -Consultations reviewed for recommendations -Patient's disposition for safe discharge discussed with employment evaluator/case manager Dictation performed by [employer] direct speech recognition software, therefore customer service cashier variants and typographical errors may occur. Hospitalist MIPS Heart Failure (Exclusion) Patient has history of Heart Transplant or Left Ventricular Assistive Device?: No IF YES, STOP HERE Heart Failure (Qualifier) Patient has current or prior documentation of LVEF less than or equal to 40%, or mod/servere depressed LVSF?: No IF NO, STOP HERE
== END 2024-11-22 16:10 ==
LOC: ANHED 15:07 → ANH3MED 11-17 04:21 → ANH3MEDSUR 11-25 07:46
PROVIDERS: Physician Assistant; Admitting Provider Internal Medicine; Emergency Provider Physician Assistant; PCP Family Medicine; Visit Provider Nurse Practitioner Family
DX: M25.461 Effusion, right knee (principal); W18.30XA Fall on same level, unspecified, initial encounter; M17.11 Unilateral primary osteoarthritis, right knee; M19.011 Primary osteoarthritis, right shoulder; M47.894 Other spondylosis, thoracic region; M47.896 Other spondylosis, lumbar region; G20.A1 Parkinson's disease without dyskinesia, without mention of fluctuations; K59.04 Chronic idiopathic constipation; J44.9 Chronic obstructive pulmonary disease, unspecified; Z99.81 Dependence on supplemental oxygen; K21.9 Gastro-esophageal reflux disease without esophagitis; F41.1 Generalized anxiety disorder; G25.81 Restless legs syndrome; I10 Essential (primary) hypertension; E78.00 Pure hypercholesterolemia, unspecified; F17.211 Nicotine dependence, cigarettes, in remission; Z79.51 Long term (current) use of inhaled steroids; Z79.899 Other long term (current) drug therapy; Z98.890 Other specified postprocedural states
CPT/HCPCS: 36415; 72070; 72100; 73030; 73564; 80048; 80053; 83735; 85025; 85027; 86140; 94640; 96372; 97110; 97161; 97165; 97530; 97535; 99285; A9270; G0378; J1650